=== PATIENT | female | born 1955 ===

== ENCOUNTER → 2020-02-10 09:02 | Outpatient (BNVA) | payer MEDICAID, SELFPAY | PROVIDERS: PCP Family Medicine; Referring Provider Family Medicine; Visit Provider Physician Assistant | DX: Z76.89 Persons encountering health services in other specified circumstances (principal) ==

== ENCOUNTER 2020-05-16 10:16 | Outpatient (REF) | payer MEDICAID, SELFPAY ==
--- NOTE | ~2020-05-16 | MM_ITS ---
EXAMINATION: MM SCREENING DIGITAL BREAST TOMOSYNTHESIS, BILATERAL CLINICAL INFORMATION: Screening. Asymptomatic. The lifetime risk of breast cancer based on the Tyrer-Cuzick Model is 6%. COMPARISON: Mammography: 05/11/2019, 04/30/2018, 04/09/2017 TECHNIQUE: Digital breast tomosynthesis is performed in both the craniocaudal and mediolateral oblique views along with computer-aided detection (CAD). Synthesized 2D images are generated from the tomosynthesis. Additional bilateral CC and additional bilateral MLO views are provided. FINDINGS: There are scattered areas of fibroglandular density (ACR BI-RADS breast composition Category b). Breast tissue composition borders on predominantly fatty. Background stromal and fibroglandular densities are stable. There are no significant masses, abnormal calcifications, or other abnormalities. MM/MM tomosynthesis screening BI IMPRESSION: No significant changes from prior exams. ASSESSMENT: BI-RADS 1: Negative RECOMMENDATION: Routine annual mammography screening. This patient's information was entered into a reminder system with a target due date for their next mammogram.
== END 2020-05-16 10:17 | disposition home or self-care (01) ==
LOC: HO.MAMMO 10:16
PROVIDERS: PCP Family Medicine; Visit Provider Family Medicine
DX: Z12.31 Encounter for screening mammogram for malignant neoplasm of breast (principal)
CPT/HCPCS: 77063; 77067

== ENCOUNTER → 2020-05-17 09:50 | Outpatient (BNVA) | payer MEDICAID, SELFPAY | PROVIDERS: PCP Family Medicine; Visit Provider Obstetrics & Gynecology ==

== ENCOUNTER 2020-09-20 14:15 | Outpatient (REF) | payer MEDICAID, SELFPAY ==
--- NOTE | ~2020-09-20 | MR_ITS ---
BRAIN MRI WITHOUT CONTRAST CLINICAL INFORMATION: Tremor right hand, recent onset. COMPARISON: None available. TECHNIQUE: Multiplanar multisequence MR imaging of the brain was obtained without IV contrast. FINDINGS: There is no hydrocephalus, extra-axial surface collection, or herniation. There is mild chronic microangiopathy. The major flow voids at the skull base are preserved. There is no acute infarct on diffusion-weighted imaging. There is no intracranial hemorrhage on the gradient recalled echo acquisition. Empty sella and prominence of the optic nerve CSF sheaths which can be correlated for clinical signs of intracranial CSF hypertension/pseudotumor cerebri. The cerebellar tonsils are normally positioned. A punctate focus of susceptibility signal within the right cerebellum most likely reflects a small focus of chronic hemosiderin staining. The craniocervical junction is normal. Osseous marrow signal intensity is homogenous. The visualized soft tissues are unremarkable. MR/MR head/brain wo con IMPRESSION: Empty sella and prominence of the optic nerve CSF sheaths which can be correlated for clinical signs of intracranial CSF hypertension/pseudotumor cerebri. Mild chronic microangiopathy.
== END 2020-09-20 14:16 | disposition home or self-care (01) ==
LOC: HO.MRI 14:15
PROVIDERS: Visit Provider Family Medicine
DX: R25.1 Tremor, unspecified (principal)
CPT/HCPCS: 70551

== ENCOUNTER 2020-10-17 08:08 | Outpatient (REF) | payer MEDICAID, SELFPAY | END 2020-10-17 08:09 | disposition home or self-care (01) | LOC: HO.HOSX 08:08 | PROVIDERS: Visit Provider Orthopaedic Surgery | DX: Z13.89 Encounter for screening for other disorder (principal) ==

== ENCOUNTER → 2020-11-25 10:54 | Outpatient (BNVA) | payer MEDICAID, SELFPAY | PROVIDERS: PCP Family Medicine | DX: N30.10 Interstitial cystitis (chronic) without hematuria (principal); R33.9 Retention of urine, unspecified | CPT/HCPCS: 99212 ==

== ENCOUNTER 2021-01-11 09:55 | Outpatient (REF) | payer MEDICARE, MEDICAID, SELFPAY ==
--- NOTE | ~2021-01-11 | XR_ITS ---
EXAMINATION: XR HAND, RIGHT CLINICAL INFORMATION: Pain COMPARISON: 09/11/2019 and 09/15/2018 TECHNIQUE: PA, lateral, and oblique views of the right hand. FINDINGS: No acute fracture or location. Small marginal osteophytes present throughout the distal interphalangeal joints and interphalangeal joint of the first digit. Moderate marginal osteophytes of the first carpometacarpal joint with a small amount of adjacent heterotopic ossification. Radiocarpal joint unremarkable. No erosive changes. Soft tissues unremarkable. XR/XR hand RT min 3V IMPRESSION: No acute fracture or dislocation. Degenerative changes as described.
== END 2021-01-11 09:56 | disposition home or self-care (01) ==
LOC: HO.HOSX 09:55
PROVIDERS: Visit Provider Physician Assistant
DX: M65.4 Radial styloid tenosynovitis [de Quervain] (principal)
CPT/HCPCS: 73130; 99212; J1020

== ENCOUNTER → 2021-01-17 13:17 | Outpatient (REF) | payer MEDICARE, MEDICAID, SELFPAY ==
--- NOTE | 2021-01-17 14:00 | CA_ITS ---
Transthoracic Echocardiogram Patient (Last, First, Middle): Trish Hunter M Gender: Female Date of : 1955 Age: 65 Procedure Date: 01/17/2021 Procedure Type: Transthoracic Echocardiogram Location: OP Height: 157.48 cm Weight: 101.61 kg BSA: 2.01 m2 Heart Rate: bpm BP: 140 / 82 mmHg Director Heart: Referring MD: Ethel Chase DO Youth Services Librarian: Rafa Moseley MD Symptoms: R53.83 OTHER FATIGUE, SOB Study Quality: Fair, good with Contrast ECG Rhythm: Sinus Conclusions: - 1. [id number] LV systolic dysfunction with LVEF of 40 45% with impaired relaxation filling pattern 2. Normal cardiac valvular Doppler 3. Normal RV systolic pressure 4. No gross pericardial effusion Findings Procedure Information Contrast agent, definity, is being given per protocol without apparent complications. Left Ventricle Normal left ventricular cavity size. There is normal left ventricular wall thickness. The left ventricular systolic function is mild to moderately decreased. The visually estimated ejection fraction is between 40-45%. Spectral Doppler is indicative of an impaired relaxation filling pattern. E/E prime ratio is between 8 and 15 consistent with indeterminate filling pressures. Right Ventricle Normal right ventricular cavity size and systolic function. Atria The left atrium is normal in size. Interatrial shunt cannot be excluded. The right atrium is normal in size. Aortic Valve The aortic valve was not well visualized. There is no aortic valve stenosis. There is no aortic valve regurgitation. Mitral Valve Likely normal mitral valve structure and function. There is trace mitral valve regurgitation. There is no mitral valve stenosis. Pulmonic Valve The pulmonic valve was not well visualized. Tricuspid Valve Likely normal tricuspid valve structure and function. There is trace tricuspid valve regurgitation. The right ventricular systolic pressure is 15 mmHg. Normal right atrial pressure. There is no evidence of pulmonary hypertension. Great Vessels All visible segments of the aorta are normal in size. The pulmonary artery was not well visualized. Venous The inferior vena cava is normal in size and collapses greater than 50% with inspiration. Pericardium/Pleural There is no evidence of pericardial effusion. Prior Study Comparison No prior study available for comparison. Measurements 2D Linear Measurements IVSd: 1.16 0.6-0.9/0.6-1.0 cm LVIDd: 4.20 3.9-5.3/4.2-5.9 cm LVIDd Index: 2.09 2.4-3.2/2.2-3.1 cm/m2 LVIDs: 2.85 2.0-3.6 cm LVPWd: 1.07 0.7-1.1 cm Ao Root: 2.80 2.1-3.5 cm LA Diam: 3.00 2.7-3.8/3.0-4.0 cm LAIDs Index: 1.49 1.5-2.3 cm/m2 LV Mass: 199.43 67-162/88-224 g LV Mass Index: 99.22 43-95/49-115 g/m2 LVOT Diam: 2.10 3.0+(-)1.3 cm 2D Systolic Function EF 4C: 44.00 >55% EF 2C: 51.00 >55% Mitral Valve MV Pk E: 0.56 MV PK A: 0.77 MV Decel Time: 316.00 E/A: 0.70 E'Lateral: 6.85 E'Medial: 5.66 E/E' Med: 9.90 E/E' Lat: 8.20 PHT: 92.00 MVA PHT: 2.39 Decel [place]: 1.78 Aortic Valve AoV Pk Julio C: 1.49 AoV Mn Julio C: 0.99 AoV VTI: 0.36 AoV Pk Grad: 9.00 Aov Mn Grad: 4.00 MARTINEZ Cont.VTI: 1.86 LVOT LVOT Pk Julio C: 0.89 LVOT Mn Julio C: 0.58 LVOT VTI: 0.19 LVOT Pk Grad: 3.00 LVOT Mn Grad: 2.00 LVOT Diam: 2.10 LVOT Area: 3.46 Diastolic Function MV Pk E: 0.56 MV Pk A: 0.77 E/A: 0.70 E'Medial: 5.66 E/E' Med: 9.90 E' Laterial: 6.85 E/E' Lat: 8.20 Right Ventricle TAPSE (mm): 18.00 TVS' Julio C: 10.00 Tricuspid Valve TR Pk Julio C: 1.71 TR Pk Grad: 12.00 RA Press: 3.00 RVSP: 15.00 Great Vessels Aorta Ao Root-2D: 2.80 2.0-3.7 cm Ao Asc: 3.20 2.1-3.4 cm Pulmonary Valve PV Pk Julio C: 0.94 Peak PV Grad: 4.00 Updated in Other Vendor System with Status of Final Rafa Moseley MD electronically signed on 01/17/2021 5:10:25 PM with status of Final
== END ==
LOC: HO.CARD 13:17
PROVIDERS: Visit Provider Family Medicine
DX: R53.83 Other fatigue (principal)
CPT/HCPCS: 93306; Q9957

== ENCOUNTER → 2021-02-06 21:50 | Outpatient (REF) | payer MEDICARE, MEDICAID, SELFPAY | LOC: HO.SL 21:50 | PROVIDERS: Visit Provider Family Medicine | DX: G47.33 Obstructive sleep apnea (adult) (pediatric) (principal) | CPT/HCPCS: 95810 ==

== ENCOUNTER → 2021-02-27 11:16 | Outpatient (BNVA) | payer MEDICARE, MEDICAID, SELFPAY | DX: R33.9 Retention of urine, unspecified (principal); N30.10 Interstitial cystitis (chronic) without hematuria | CPT/HCPCS: 51798; 99212 ==

== ENCOUNTER 2021-04-10 14:52 | Outpatient (REF) | payer MEDICARE, MEDICAID, SELFPAY ==
--- NOTE | ~2021-04-10 | US_ITS ---
EXAMINATION: US RETROPERITONEAL LIMITED (RENAL ONLY) CLINICAL INFORMATION: Calculus of kidney. COMPARISON: CT abdomen and pelvis 03/25/2019. Renal ultrasound 01/06/2019 and 05/06/2018. X-ray abdomen KUB 04/16/2018. TECHNIQUE: Real-time imaging of the kidneys. FINDINGS: RIGHT KIDNEY: 10.7 x 4.4 x 5.2 cm (SAG x AP x TRV). The kidney is normal in size, contour, and echogenicity. Renal cortical thickness is normal. No calculi or focal parenchymal lesions. No hydronephrosis. LEFT KIDNEY: 10.4 x 5.0 x 4.6 cm (SAG x AP x TRV). The kidney is normal in size, contour, and echogenicity. Renal cortical thickness is normal. No calculi or focal parenchymal lesions. No hydronephrosis. US/US renal BI IMPRESSION: Normal renal ultrasound. No stone seen.
== END 2021-04-10 14:53 | disposition home or self-care (01) ==
LOC: HO.US 14:52
DX: N20.0 Calculus of kidney (principal)
CPT/HCPCS: 76775

== ENCOUNTER → 2021-04-14 15:51 | Outpatient (BNVA) | payer MEDICARE, SELFPAY | PROVIDERS: PCP Family Medicine | DX: Z87.442 Personal history of urinary calculi (principal) | CPT/HCPCS: Q3014 ==

== ENCOUNTER 2021-06-27 11:09 | Outpatient (REF) | payer MEDICARE, SELFPAY ==
--- NOTE | ~2021-06-27 | MM_ITS ---
EXAMINATION: MM SCREENING DIGITAL BREAST TOMOSYNTHESIS, BILATERAL CLINICAL INFORMATION: Screening. Asymptomatic. The lifetime risk of breast cancer based on the Tyrer-Cuzick Model is 4%. COMPARISON: Mammography: 05/16/2020, 05/11/2019, 04/30/2018, 04/09/2017 TECHNIQUE: Digital breast tomosynthesis is performed in both the craniocaudal and mediolateral oblique views along with computer-aided detection (CAD). Synthesized 2D images are generated from the tomosynthesis. Additional bilateral exaggerated CC and additional bilateral MLO views are provided. FINDINGS: There are scattered areas of fibroglandular density (ACR BI-RADS breast composition Category b). Parenchymal pattern is similar to prior studies. Small nodular asymmetric density anterior upper left breast is stable from prior studies. There is no developing density or interval architectural abnormality. No abnormal calcifications. The axilla and skin contours are unremarkable. No significant changes. MM/MM tomosynthesis screening BI IMPRESSION: No mammographic evidence of malignancy. ASSESSMENT: BI-RADS 2: Benign RECOMMENDATION: Routine annual mammography screening. This patient's information was entered into a reminder system with a target due date for their next mammogram.
== END 2021-06-27 11:10 | disposition home or self-care (01) ==
LOC: HO.MAMMO 11:09
PROVIDERS: PCP Family Medicine; Visit Provider Family Medicine
DX: Z12.31 Encounter for screening mammogram for malignant neoplasm of breast (principal)
CPT/HCPCS: 77063; 77067

== ENCOUNTER → 2021-08-22 13:08 | Outpatient (BNVA) | payer MEDICARE, MEDICAID, SELFPAY | PROVIDERS: PCP Family Medicine; Referring Provider Family Medicine; Visit Provider Internal Medicine Cardiovascular Disease | DX: R07.9 Chest pain, unspecified (principal); I42.9 Cardiomyopathy, unspecified; Z79.899 Other long term (current) drug therapy | CPT/HCPCS: 93005; 99202 ==

== ENCOUNTER → 2021-09-25 08:34 | Outpatient (REF) | payer MEDICARE, MEDICAID, SELFPAY ==
--- NOTE | ~2021-09-25 | NM_ITS ---
Lexiscan Myocardial perfusion study Indication: Chest pain, assess for coronary disease and ischemia Technique: The patient was brought in for a Lexiscan perfusion study on 09/25/2021 and was injected 0.4 mg of Lexiscan intravenously. Within a minute of this injection 35 mCi of sestamibi was given intravenously. Images were obtained using the SPECT gamma camera interlaced with the gating device. Images were obtained in supine position. Resting perfusion study was performed on 09/28/2021. Patient was administered 35 mCi of sestamibi intravenously at rest. Images were then obtained in supine position. Total DLP 160mGy-cm. Images were processed with the software and compared side to side in short axis, horizontal long axis and vertical long axis views. Findings: Raw acquisition reviewed. The stress perfusion study showed mildly diminished tracer uptake in the basal to mid septum. There is also reduced uptake in the apical lateral wall. There is some improvement in the basal septal defect with CT attenuation correction. The apical lateral defect resolves. The gated study shows normal LV systolic function with calculated LVEF of 58%. LV cavity is normal in size. The gated study shows diminished contractility in the basal to mid septum. Resting study shows slightly reduced tracer uptake in the basal septum; reduced uptake in the apical inferolateral wall.. Gating at rest reveals ejection fraction at 51%. Reduced contractility in the basal septum. The findings are consistent with reversible defect in the basal to mid septum. Small fixed defect in the apical lateral wall, likely artifactual. NM/NM cardiolite stress test Impression: 1. Myocardial perfusion imaging study shows possible ischemia in the basal to mid septum. There is some improvement with CT attenuation correction which indicates artifact, but there is also reduced contractility on gating. Correlate clinically. 2. Gated LVEF is 58% during stress and 51% during rest. 3. Transient ischemic dilatation not present. EKG component of the test reported separately.
--- NOTE | 2021-09-25 08:37 | CA_ITS ---
Acquisition Time: 2021-09-25 10:12:56 Total Exercise Time: 00:01:38 Test Indications: CP Medications: SEE CHART Protocol: BRIAN Max HR: 121 BPM 78% of Pred: 155 BPM Max BP: 104/080 mmHG Max Work Load: 3.9 METS Exercise stress test with exercise 1 min 38 sec of Brian protocol, achieving 77% MPHR, with moderate sob and request to stop, no chest discomfort. Treadmill stopped and pt assisted to sitting position. Once breathing improved, testing changed to pharmacological stress test with Lexiscan injection, with mild sob, with isolated PACs, with normotensive response to injection, with nondiagnostic EKG for ischemia. In recovery she reported nausea that was treated with Aminophylline 75mg IVP to reverse Lexiscan with resolution of symptom. Nuclear images pending. Test reviewed with Dr Moseley. Referred By: Rafa Moseley Overread By: BRITT ETIENNE
== END ==
LOC: HO.CARD 08:34
PROVIDERS: PCP Family Medicine; Visit Provider Internal Medicine Cardiovascular Disease
DX: R07.9 Chest pain, unspecified (principal)
CPT/HCPCS: 78452; 93017; A9500; J0280; J2785

== ENCOUNTER 2021-11-15 09:30 | Outpatient (REF) | payer OTHER, MEDICAID, SELFPAY ==
[2021-11-15 10:23] LABS: Anion Gap 14 (12-20); Blood Urea Nitrogen 24 mg/dL (9-16); Calcium 9.5 mg/dL (8.4-10.2); Carbon Dioxide 23 mmol/L (22-29); Chloride 103 mmol/L (96-108); Estimated Glomerular Filt Rate 50; Glucose Random 175 mg/dL (60-115); Potassium 4.4 mmol/L (3.3-5.1); Sodium 136 mmol/L (135-145)
== END 2021-11-15 09:31 | disposition home or self-care (01) ==
LOC: HO.LAB 09:30
PROVIDERS: PCP Family Medicine; Visit Provider Nurse Practitioner Family
DX: R94.39 Abnormal result of other cardiovascular function study (principal)
CPT/HCPCS: 36415; 80048

== ENCOUNTER 2021-11-28 08:24 | Outpatient (REF) | payer OTHER, MEDICAID, SELFPAY ==
--- NOTE | ~2021-11-28 | US_ITS ---
EXAMINATION: US RETROPERITONEAL LIMITED (RENAL ONLY) CLINICAL INFORMATION: Calculus of kidney. COMPARISON: Renal ultrasound 04/10/2021 and 01/06/2019. CT abdomen and pelvis dated 03/25/2019. X-ray KUB 04/16/2018. TECHNIQUE: Real-time imaging of the kidneys. FINDINGS: RIGHT KIDNEY: 9.5 x 4.7 x 5.4 cm (SAG x AP x TRV). The kidney is normal in size, contour, and echogenicity. Renal cortical thickness is normal. No calculi or focal parenchymal lesions. No hydronephrosis. LEFT KIDNEY: 10.2 x 5.4 x 4.7 cm (SAG x AP x TRV). The kidney is normal in size, contour, and echogenicity. Renal cortical thickness is normal. No calculi or focal parenchymal lesions. No hydronephrosis. US/US renal BI IMPRESSION: No stone is appreciated by ultrasound.
== END 2021-11-28 08:25 | disposition home or self-care (01) ==
LOC: HO.US 08:24
PROVIDERS: Visit Provider Family Medicine
DX: N20.0 Calculus of kidney (principal); K76.0 Fatty (change of) liver, not elsewhere classified
CPT/HCPCS: 76775

== ENCOUNTER 2022-02-08 13:38 | Outpatient (REF) | payer OTHER, MEDICAID, SELFPAY ==
--- NOTE | ~2022-02-08 | CT_ITS ---
EXAMINATION: CT ABDOMEN AND PELVIS WITHOUT CONTRAST CLINICAL INFORMATION: Abdominal pain COMPARISON: Previous CT February 2019 and renal ultrasound most recent November 2021 TECHNIQUE: Multidetector volumetric imaging was performed from the superior aspect of the liver through the pubic symphysis. Sagittal and coronal reformatted images were obtained on the technologist's workstation. This CT examination was performed using dose optimization techniques as appropriate, variously including the following: *Automated exposure control *Adjustment of mA and/or kV according to patient size (this includes techniques or standardized protocols for targeted exams where dose is matched to indication/reason for exam; i.e. extremities or head) *Use of iterative reconstruction technique DLP: 781 mGy-cm FINDINGS: LUNG BASES: The visualized lung bases are unremarkable. LIVER, GALLBLADDER, AND BILIARY TREE: The liver is normal in size, shape, and attenuation. No focal hepatic lesion or biliary ductal dilatation is present. The gallbladder is unremarkable with no evidence of radiopaque gallstones, gallbladder wall thickening, or obvious pericholecystic inflammatory changes. PANCREAS: Unremarkable. SPLEEN: Unremarkable. ADRENAL GLANDS: Unremarkable. KIDNEYS AND URETERS: The kidneys are normal in size, shape, and attenuation. No hydronephrosis, hydroureter, or calculi seen. No perinephric stranding. BLADDER: Unremarkable. GASTROINTESTINAL TRACT: Diverticulosis of the colon. Mild wall thickening of the distal left and proximal sigmoid colon and stranding of the surrounding fat suggestive of mild diverticulitis. No evidence of obstruction, perforation or abscess. Small and large bowel are otherwise normal. The appendix is normal. ABDOMINAL WALL: No significant hernia is appreciated. LYMPH NODES: Normal. VASCULAR: Unremarkable. PELVIC VISCERA: Small calcifications in the uterus probably representing calcified fibroids. Uterus and adnexa are otherwise unremarkable. OSSEOUS STRUCTURES: Mild anterior subluxation of L4 with respect L5. Degenerative changes of the lower lumbar spine. CT/CT abdomen pelvis wo IV con IMPRESSION: Mild distal left or proximal sigmoid colon diverticulitis. Findings will be communicated by the [place] work flow financial coach. Fleischner guidelines were followed.
[2022-02-08 15:51] LABS: Blood Urea Nitrogen 20 mg/dL (9-16); Estimated Glomerular Filt Rate 56
[2022-02-08] MEDS: Barium Sulfate Oral (Berry) 450 ML ORAL.SUSP PO (16:48)
== END 2022-02-08 13:39 | disposition home or self-care (01) ==
LOC: HO.CT 13:38
PROVIDERS: Visit Provider Family Medicine
DX: R10.32 Left lower quadrant pain (principal)
CPT/HCPCS: 36415; 74176; 82565; 84520

== ENCOUNTER 2022-02-22 10:29 | Outpatient (REF) | payer OTHER, MEDICAID, SELFPAY ==
[2022-02-23 12:10] LABS: BV Int Neg Control Negative (Negative); BV Int Pos Control Positive (Positive)
== END 2022-02-22 10:30 | disposition home or self-care (01) ==
LOC: HO.LNP 10:29
PROVIDERS: Visit Provider Advanced Practice Midwife
DX: N89.8 Other specified noninflammatory disorders of vagina (principal)
CPT/HCPCS: 87480; 87510; 87660

== ENCOUNTER 2022-03-16 11:19 | Outpatient (REF) | payer OTHER, MEDICAID, SELFPAY ==
--- NOTE | ~2022-03-16 | XR_ITS ---
EXAMINATION: XR knee LT 2V, XR knee standing BI, XR knee RT 2V CLINICAL INFORMATION: Reason for Exam M25.569 - Pain in unspecified knee COMPARISON: Knee radiographs 04/02/2016 TECHNIQUE: Two views of the each knee and one view of the bilateral knees standing. FINDINGS: No acute fracture or dislocation. 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 No evidence of hardware fracture or complication. No joint effusion. Few nonspecific soft tissue calcifications seen in the left greater than right knees, may reflect foci of heterotopic ossification. 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 No evidence of hardware fracture or complication.
--- NOTE | ~2022-03-16 | XR_ITS ---
EXAMINATION: XR knee LT 2V, XR knee standing BI, XR knee RT 2V CLINICAL INFORMATION: Reason for Exam M25.569 - Pain in unspecified knee COMPARISON: Knee radiographs 04/02/2016 TECHNIQUE: Two views of the each knee and one view of the bilateral knees standing. FINDINGS: No acute fracture or dislocation. 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 No evidence of hardware fracture or complication. No joint effusion. Few nonspecific soft tissue calcifications seen in the left greater than right knees, may reflect foci of heterotopic ossification. 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 No evidence of hardware fracture or complication.
--- NOTE | ~2022-03-16 | XR_ITS ---
EXAMINATION: XR knee LT 2V, XR knee standing BI, XR knee RT 2V CLINICAL INFORMATION: Reason for Exam M25.569 - Pain in unspecified knee COMPARISON: Knee radiographs 04/02/2016 TECHNIQUE: Two views of the each knee and one view of the bilateral knees standing. FINDINGS: No acute fracture or dislocation. 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 No evidence of hardware fracture or complication. No joint effusion. Few nonspecific soft tissue calcifications seen in the left greater than right knees, may reflect foci of heterotopic ossification. 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 No evidence of hardware fracture or complication.
== END 2022-03-16 11:20 | disposition home or self-care (01) ==
LOC: HO.HOSX 11:19
PROVIDERS: Visit Provider Orthopaedic Surgery
DX: S80.02XA Contusion of left knee, initial encounter (principal); M25.561 Pain in right knee; M25.552 Pain in left hip
CPT/HCPCS: 73560; 73565

== ENCOUNTER 2022-05-25 11:44 | Emergency (ER) | payer OTHER, MEDICARE, MEDICAID, SELFPAY ==
--- NOTE | ~2022-05-25 | XR_ITS ---
EXAMINATION: XR LUMBOSACRAL SPINE CLINICAL INFORMATION: Low back pain COMPARISON: 03/15/2018. TECHNIQUE: Three views of the lumbosacral spine. FINDINGS: Marked facet arthrosis with grade 1 anterolisthesis of L4-L5, not significantly changed. Otherwise unremarkable. No acute abnormality. XR/XR lumbar spine 2-3V IMPRESSION: Marked facet arthrosis with grade 1 anterolisthesis of L4-L5, not significantly changed. No acute abnormality.
[2022-05-25 12:02] VITALS: BP 140/86; PULSE 85; RESP 17; TEMP 36.2; O2SAT 96; BMI 43.9
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
--- NOTE | 2022-05-25 12:42 | PC.NURSE ---
patient a&ox3, c/o low back pain and neck pain, pt had xrays performed, awaiting results, call armenta within reach, will continue to monitor
== END 2022-05-25 14:35 | disposition home or self-care (01) ==
PROVIDERS: Emergency Provider Emergency Medicine Emergency Medical Services; PCP Family Medicine
DX: S39.012A Strain of muscle, fascia and tendon of lower back, initial encounter (principal); V43.62XA Car passenger injured in collision with other type car in traffic accident, initial encounter; G89.29 Other chronic pain; M54.9 Dorsalgia, unspecified; Z79.891 Long term (current) use of opiate analgesic; Y93.89 Activity, other specified; Y92.414 Local residential or business street as the place of occurrence of the external cause; Y99.9 Unspecified external cause status
CPT/HCPCS: 72100; 99283

== ENCOUNTER 2022-06-07 14:53 | Outpatient (REF) | payer OTHER, SELFPAY ==
--- NOTE | ~2022-06-07 | US_ITS ---
EXAMINATION: US EXTRACRANIAL CAROTID DUPLEX, BILATERAL CLINICAL INFORMATION: Dizziness and giddiness COMPARISON: None available. TECHNIQUE: Real-time ultrasound and Doppler techniques (integrating B-mode 2-D vascular images, Doppler spectral analysis and color-flow Doppler imaging) were utilized to interrogate the extracranial carotid arteries, the vertebral arteries and proximal subclavian arteries bilaterally. The degree of stenosis is determined by criteria similar to NASCET. FINDINGS: Right Side: 1. There is no atherosclerotic plaque seen in the bifurcation/proximal ICA region. 2. The common carotid artery PSV proximally is 72 cm/s and distally 66 cm/s. 3. The proximal internal carotid artery velocities are 50 cm/s systolic and 16 cm/s diastolic. 4. The proximal external carotid artery PSV is 40 cm/s. 5. The vertebral artery shows antegrade flow. 6. The subclavian artery waveforms are normal. Left Side: 1. There is no atherosclerotic plaque seen in the bifurcation/proximal ICA region. 2. The common carotid artery PSV proximally is 82 cm/s and distally 50 cm/s. 3. The proximal internal carotid artery velocities are 50 cm/s systolic and 17 cm/s diastolic. 4. The proximal external carotid artery PSV is 61 cm/s. 5. The vertebral artery shows antegrade flow. 6. The subclavian artery waveforms are normal. US/US carotid duplex BI IMPRESSION: 1. RIGHT: Normal right internal carotid artery without atherosclerotic plaque or hemodynamically significant stenosis. 2. LEFT: Normal left internal carotid artery without atherosclerotic plaque or hemodynamically significant stenosis.
== END 2022-06-07 14:54 | disposition home or self-care (01) ==
LOC: HO.US 14:53
PROVIDERS: Visit Provider Family Medicine
DX: R42 Dizziness and giddiness (principal)
CPT/HCPCS: 93880

== ENCOUNTER → 2022-06-19 14:45 | Outpatient (BNVA) | payer OTHER, SELFPAY | PROVIDERS: PCP Family Medicine; Visit Provider Internal Medicine Cardiovascular Disease | DX: I42.9 Cardiomyopathy, unspecified (principal); I10 Essential (primary) hypertension | CPT/HCPCS: 99212 ==

== ENCOUNTER 2022-06-20 10:23 | Outpatient (REF) | payer OTHER, SELFPAY ==
--- NOTE | ~2022-06-20 | US_ITS ---
EXAMINATION: US ABDOMEN COMPLETE CLINICAL INFORMATION: Fatty liver. COMPARISON: CT abdomen and pelvis without contrast dated 02/08/2022. Bilateral renal ultrasounds dated 11/28/2021 and 04/10/2021. KUB dated 04/16/2018. TECHNIQUE: Real-time imaging of the abdominal viscera. FINDINGS: PANCREAS: Normal. ABDOMINAL AORTA: The proximal, mid, and distal segments are normal in caliber. INFERIOR VENA CAVA: Visualized portions are normal. LIVER: The liver is enlarged measuring 18 cm. The liver contour is normal. There is diffuse increased echogenicity with areas of focal fatty sparing. No focal hepatic lesion. There is no intrahepatic biliary duct dilatation seen. GALLBLADDER: Normal. The gallbladder is physiologically distended without evidence of stones, sludge, polyps, wall thickening or pericholecystic fluid. COMMON BILE DUCT: Normal in caliber measuring 0.4 cm in diameter. RIGHT KIDNEY: Normal. No hydronephrosis. No renal calculi or focal parenchymal lesions. The kidney measures 10.6 cm in maximum dimension. LEFT KIDNEY: Normal. No hydronephrosis. No renal calculi or focal parenchymal lesions. The kidney measures 9.4 cm in maximum dimension. SPLEEN: Normal. The spleen measures 9.0 cm in maximum dimension. FREE FLUID: None. US/US abdomen complete IMPRESSION: 1. Diffuse hepatic steatosis with areas of focal fatty sparing. 2. Rest of the abdominal ultrasound is unremarkable.
== END 2022-06-20 10:24 | disposition home or self-care (01) ==
LOC: HO.US 10:23
PROVIDERS: Visit Provider Family Medicine
DX: K76.0 Fatty (change of) liver, not elsewhere classified (principal)
CPT/HCPCS: 76700

== ENCOUNTER → 2022-07-03 08:46 | Outpatient (REF) | payer OTHER, SELFPAY ==
--- NOTE | ~2022-07-03 | MM_ITS ---
EXAMINATION: MM SCREENING DIGITAL BREAST TOMOSYNTHESIS, BILATERAL CLINICAL INFORMATION: Screening. Asymptomatic. The lifetime risk of breast cancer based on the Tyrer-Cuzick Model is 3%. COMPARISON: Mammography: 06/27/2021, 05/16/2020, 05/11/2019 TECHNIQUE: Digital breast tomosynthesis is performed in both the craniocaudal and mediolateral oblique views along with computer-aided detection (CAD). Synthesized 2D images are generated from the tomosynthesis. Additional bilateral CC, right MLO, and left MLO x2 views are provided. FINDINGS: There are scattered areas of fibroglandular density (ACR BI-RADS breast composition Category b). Breast tissue composition borders on predominantly fatty. Background stromal and fibroglandular densities are similar to prior exams. There are no significant masses, abnormal calcifications, or other abnormalities. Parenchymal pattern is similar to prior studies. There is no developing density or architectural abnormality. The axilla and skin contours are unremarkable. MM/MM tomosynthesis screening BI IMPRESSION: No mammographic evidence of malignancy. ASSESSMENT: BI-RADS 1: Negative RECOMMENDATION: Routine annual mammography screening. This patient's information was entered into a reminder system with a target due date for their next mammogram.
--- NOTE | 2022-07-03 08:49 | CA_ITS ---
Transthoracic Echocardiogram Patient (Last, First, Middle): Trish Cameron M Gender: Female Date of : 1955 Age: 66 Procedure Date: 07/03/2022 Procedure Type: Transthoracic Echocardiogram Location: OP Height: 157.48 cm Weight: 112.95 kg BSA: 2.10 m2 Heart Rate: 76 bpm BP: 105 / 70 mmHg Communication Manager: SERINA Referring MD: Ethel Chase DO Symptoms: R42 DIZZINESS Study Quality: Adequate/Contrast ECG Rhythm: Sinus Conclusions: - The left ventricular systolic function is low normal. The visually estimated ejection fraction is between 50-55%. - No obvious valvular pathology seen on this study. Findings Procedure Information Contrast agent, definity, is being given per protocol without apparent complications. Left Ventricle Normal left ventricular cavity size. There is mildly increased left ventricular wall thickness. The left ventricular systolic function is low normal. The visually estimated ejection fraction is between 50-55%. There is no evidence of regional wall motion abnormalities. Diastolic function is normal for age. Right Ventricle Normal right ventricular cavity size and systolic function. Atria Both atria are normal in size. Aortic Valve There is a normal trileaflet aortic valve. There is mild calcification of the aortic valve. There is no aortic valve stenosis. There is no aortic valve regurgitation. Mitral Valve The mitral valve appears normal. There is mild mitral annular calcification. There is no mitral valve regurgitation. There is no mitral valve stenosis. Pulmonic Valve The pulmonic valve is likely normal. Tricuspid Valve There is no tricuspid valve regurgitation. There is no evidence of pulmonary hypertension. Great Vessels The asc aorta is normal in size. Venous The inferior vena cava is normal in size and collapses less than 50% with inspiration. Pericardium/Pleural There is no evidence of pericardial effusion. Prior Study Comparison Changes noted compared to prior study dated: 01/17/2021. Slight improvement in LVEF. Recommendations, Care & Conclusions No obvious valvular pathology seen on this study. Measurements 2D Linear Measurements IVSd: 1.15 0.6-0.9/0.6-1.0 cm LVIDd: 4.46 3.9-5.3/4.2-5.9 cm LVIDd Index: 2.12 2.4-3.2/2.2-3.1 cm/m2 LVIDs: 2.93 2.0-3.6 cm LVPWd: 1.14 0.7-1.1 cm LA Diam: 3.80 2.7-3.8/3.0-4.0 cm LAIDs Index: 1.81 1.5-2.3 cm/m2 LV Mass: 227.58 67-162/88-224 g LV Mass Index: 108.37 43-95/49-115 g/m2 LVOT Diam: 2.00 3.0+(-)1.3 cm 2D Systolic Function EF 4C: 48.40 >55% EF 2C: 59.80 >55% EF BiP: 55.40 >55% Mitral Valve MV Pk E: 0.53 MV PK A: 0.85 MV Decel Time: 247.00 E/A: 0.60 E'Lateral: 8.38 E'Medial: 5.22 E/E' Med: 10.10 E/E' Lat: 6.30 PHT: 72.00 MVA PHT: 3.06 Decel [place]: 2.13 Aortic Valve AoV Pk Julio C: 1.57 AoV Mn Julio C: 1.12 AoV VTI: 0.28 AoV Pk Grad: 10.00 Aov Mn Grad: 6.00 MARTINEZ Cont.VTI: 2.02 LVOT LVOT Pk Julio C: 0.98 LVOT Mn Julio C: 0.72 LVOT VTI: 0.18 LVOT Pk Grad: 4.00 LVOT Mn Grad: 2.00 LVOT Diam: 2.00 LVOT Area: 3.14 Diastolic Function MV Pk E: 0.53 MV Pk A: 0.85 E/A: 0.60 E'Medial: 5.22 E/E' Med: 10.10 E' Laterial: 8.38 E/E' Lat: 6.30 Right Ventricle TAPSE (mm): 19.30 TVS' Julio C: 10.20 Tricuspid Valve RA Press: 8.00 Great Vessels Aorta Sinus of Valsalva: 3.00 2.0-3.5 cm Ao Asc: 3.20 2.1-3.4 cm Pulmonary Valve PV Pk Julio C: 1.14 Peak PV Grad: 5.00 Updated in Other Vendor System with Status of Final Thiago Cates MD electronically signed on 07/04/2022 11:34:19 AM with status of Final
== END ==
LOC: HO.CARD 08:46
PROVIDERS: PCP Family Medicine; Visit Provider Family Medicine
DX: Z12.31 Encounter for screening mammogram for malignant neoplasm of breast (principal); R42 Dizziness and giddiness
CPT/HCPCS: 77063; 77067; 93306; Q9957

== ENCOUNTER 2022-07-03 10:34 | Outpatient (REF) | payer OTHER, SELFPAY | END 2022-07-03 10:35 | disposition home or self-care (01) | LOC: HO.MAMMO 10:34 | PROVIDERS: PCP Family Medicine; Visit Provider Family Medicine | DX: Z13.89 Encounter for screening for other disorder (principal) ==

== ENCOUNTER 2022-08-27 12:33 | Outpatient (REF) | payer OTHER, SELFPAY | END 2022-08-27 12:34 | disposition home or self-care (01) | LOC: HO.CT 12:33 | PROVIDERS: PCP Family Medicine; Visit Provider Family Medicine | DX: R42 Dizziness and giddiness (principal) | CPT/HCPCS: 70450 ==

== ENCOUNTER 2023-01-04 10:30 | Outpatient (REF) | payer OTHER, SELFPAY ==
--- NOTE | ~2023-01-04 | US_ITS ---
EXAMINATION: US RETROPERITONEAL LIMITED (RENAL ONLY) CLINICAL INFORMATION: Calculus of kidney. COMPARISON: Ultrasound abdomen complete 06/20/2022. CT abdomen and pelvis 02/08/2022. Renal ultrasound 11/28/2021. X-ray KUB 04/16/2018. TECHNIQUE: Real-time imaging of the kidneys. Limited visualization due to bowel gas. FINDINGS: RIGHT KIDNEY: 10.4 x 4.7 x 4.9 cm (SAG x AP x TRV). No hydronephrosis. No renal calculi. Renal cortical thickness is normal. Limited visualization. LEFT KIDNEY: 9.5 x 5.9 x 5.9 cm (SAG x AP x TRV). No hydronephrosis. No renal calculi. Renal cortical thickness is normal. Limited visualization. US/US renal BI IMPRESSION: No hydronephrosis. No renal calculi.
== END 2023-01-04 10:31 | disposition home or self-care (01) ==
LOC: HO.US 10:30
PROVIDERS: PCP Family Medicine; Visit Provider Nurse Practitioner Family
DX: N20.0 Calculus of kidney (principal)
CPT/HCPCS: 76775

== ENCOUNTER 2023-01-11 11:31 | Outpatient (AMB) | payer OTHER, SELFPAY ==
--- NOTE | 2023-01-11 11:33 | MHC.OFFVIS ---
Intake Intake Visit Reasons: 1 yr nephrolithiasis follow up w US(set) Intake Note: Patient is present for follow up nephrolithiasis/ultrasound Urology Medications: none Blood Thinner: none Telemarketing Representative Required: Yes Telemarketing Representative Name: [id number] Information Interpreted: non-clinical & clinical Accompanied by: Self / Same As Patient Allergies morphine [Morphine] Allergy (Mild, Verified 01/11/23 11:55) ITCHING, rash Iodinated Contrast Media [IV CONTRAST] Allergy (Unknown, Verified 01/11/23 11:55) itching tramadol [Ultram] Allergy (Unknown, Verified 01/11/23 11:55) rash From ULTRAM Allergy (Intermediate, Uncoded 01/11/23 11:55) ITCHY ivp contrast Allergy (Unknown, Uncoded 01/11/23 11:55) hives Medication List - Last Reconciled 01/11/23 by BRITT Comer-FAUSTINA acetaminophen ER 650 mg PO Q8H PRN albuterol sulfate 90 mcg/actuation (ProAir HFA) 2 puffs PO Q6H PRN alcohol swabs (Alcohol Prep Pads) pad topical BID aripiprazole 10 mg PO QAM aspirin 81 mg PO QPM atorvastatin 20 mg PO BEDTIME baclofen 20 mg PO TID PRN blood sugar diagnostic (FreeStyle Lite Strips) As directed cholecalciferol (vitamin D3) 50 mcg PO QPM clotrimazole-betamethasone 1-0.05 % 1 appl topical BID PRN 7 days diphenhydramine HCl (Benadryl) 25 mg PO BEDTIME docusate sodium 100 mg PO dulaglutide (Trulicity) mg subcut QWEEK dulaglutide (Trulicity) mg subcut famotidine (Pepcid) 20 mg PO BID fluticasone propionate 50 mcg/actuation 1 spray intranasal BID fluticasone propionate 220 mcg/actuation (Flovent HFA) 1 puff PO BID gabapentin 400 mg PO TID isosorbide mononitrate ER 30 mg PO DAILY lancets (TRUEplus Lancets) As directed latanoprost 0.005% 1 drp ophthalmic (eye) BEDTIME levothyroxine 100 mcg PO QAM levothyroxine 112 mcg PO DAILY lidocaine 5% (Lidoderm) 1 patch topical DAILY lisinopril 20 mg PO QPM loratadine 10 mg PO QAM lorazepam 1 mg PO BID PRN metformin 500 mg PO metoprolol succinate ER 25 mg PO QAM 90 days [id number] acid 18-400 mg-mcg (Tab-A-Rito Multivitamin w-iron) 1 tab PO QAM oxybutynin chloride ER 15 mg PO DAILY 30 days oxycodone 5 mg PO Q6H PRN pantoprazole 40 mg PO QAM pentosan polysulfate sodium (Elmiron) 200 mg (2 x 100 mg) PO BID 90 days prazosin 4 mg PO BEDTIME venlafaxine ER 150 mg PO QAM venlafaxine ER 75 mg PO QAM zolpidem 10 mg PO BEDTIME HPI HPI Comments History of Present Illness Details Trish is a very pleasant 67 year old Kinyarwanda speaking female patient. She has a PMH of diabetes, hypertention, cardiomyopathy, and acid reflux. She presents to the office today for a follow up of her nephrolithiasis and interstitial cystitis. Recent renal imaging results reviewed with the patient today. Bilateral kidneys with no calculi and or hydronephrosis. When asked she reports dysuria and bladder pressure. She reports when she was taking her Elmiron she felt urinary symptoms were controlled. Discussed side effects of Elmiron at length. She otherwise denies urinary urgency, urinary frequency, incontinence, nocturia, hematuria, foul smelling urine, changes to urinary stream, flank pain, fever, and or chills. Unable to obtain urine for urinalysis as patient was unable to void however PVR 0ml's. PFS Medical History Diabetes HTN (hypertension) Cardiomyopathy Bilateral nephrolithiasis Retention of urine Acid reflux Surgical History Hx of tubal ligation H/O shoulder surgery History of hand surgery H/O knee surgery Family History Brother Breast cancer Social History Alcohol intake: current Alcohol intake frequency: holidays/special occasions only Patient Tobacco Use Status: Never used Tobacco Current occupational status: disabled Current occupation: rt handed Gender identity: Female Female Reproductive History Menstrual Age of Menarche: 12 Review of Systems Const Reports as per HPI Eyes Reports no additional complaints ENT Reports no additional complaints Card Reports as per HPI Resp Reports no additional complaints GI Reports as per HPI Reports as per [facility] Endo Reports as per [facility] Physical Exam Const General: cooperative, comfortable, no acute distress, well developed, alert and awake Nutritional Appearance: overweight Orientation/consciousness: patient oriented x3 Limitations: no limitations HEENT Head: Yes normal to inspection, Yes normocephalic and Yes atraumatic Ears: hearing grossly normal bilaterally Eyes General: appearance normal, both eyes and all related structures Neck Neck: Yes normal visual inspection and Yes trachea midline Chest Chest palpation & inspection: normal inspection of the chest Resp Effort & Inspection: normal respiratory effort and able to speak in complete sentences Cardio Rate: regular rate GI Inspection: Yes normal to inspection General: Yes no CVA tenderness Back/Spine/Pelvis Back: no CVA tenderness Skin General skin exam: no rashes or lesions noted Neuro General: patient oriented x3 Extrem General: Yes normal to inspection Psych Appearance: grossly normal and well kempt Mental Status: mental status grossly normal Speech and movement: Normal speech and movement present and Clear speech present Affect: normal affect Attitude: cooperative Thought process: Normal thought process present Thought content: Normal thought content present Insight: Fair insight present (Psych) Judgement: Fair judgement present (Psych) Results Reviewed Results Reviewed: Date of Service: 01/04/23 EXAMINATION: US RETROPERITONEAL LIMITED (RENAL ONLY) FINDINGS: RIGHT KIDNEY: 10.4 x 4.7 x 4.9 cm (SAG x AP x TRV). No hydronephrosis. No renal calculi. Renal cortical thickness is normal. Limited visualization. LEFT KIDNEY: 9.5 x 5.9 x 5.9 cm (SAG x AP x TRV). No hydronephrosis. No renal calculi. Renal cortical thickness is normal. Limited visualization. IMPRESSION: No hydronephrosis. No renal calculi. Assessment & Plan Assessment & Plan (1) Interstitial cystitis: Code(s): N30.10 - Interstitial cystitis (chronic) without hematuria (2) Nephrolithiasis: Code(s): N20.0 - Calculus of kidney Plan Unable to obtain urine for urinalysis however PVR 0ml's Recent renal imaging results reviewed with the patient Discussed at length bladder triggers/irritants at length; information provided Start low dose nitrofurantoin as discussed and prescribed. Discussed, stressed, and educated on the importance of drinking plenty of water daily. Follow up in 3 months with PVR; or sooner with any issues, concerns, or questions. Orders: Orders AMB Urinalysis Automated 01/11/23 Z13.9 - Encounter for screening, unspecified Medications: New nitrofurantoin macrocrystal must administer with a meal/food 50 mg PO BEDTIME 90 caps 1RF 90 days N39.0 - Urinary tract infection, site not specified Discontinued oxybutynin chloride ER Discontinued Reason: Patient no longer taking 15 mg PO DAILY 30 tabs 5RF 30 days diphenhydramine HCl (Benadryl) Take 1 tablet the Morning of day before CT scan, Take 1 tablet the Evening of day before CT scan, Take one tablet the Morning of the CT scan Discontinued Reason: Patient Completed Course 25 mg PO BEDTIME 3 caps 0RF sleep pentosan polysulfate sodium (Elmiron) Discontinued Reason: Patient Completed Course 200 mg (2 x 100 mg) PO BID 360 caps 1RF 90 days Coding Level of Care Code Est Pt Level 4 (13737) Diagnoses Interstitial cystitis N30.10 Nephrolithiasis N20.0
== END 2023-01-11 12:09 | disposition home or self-care (01) ==
PROVIDERS: Visit Provider Nurse Practitioner Family
DX: N30.10 Interstitial cystitis (chronic) without hematuria (principal); N20.0 Calculus of kidney
CPT/HCPCS: 99214

== ENCOUNTER → 2023-01-11 11:31 | Outpatient (BNVA) | payer OTHER, SELFPAY | PROVIDERS: Visit Provider Nurse Practitioner Family | DX: N30.10 Interstitial cystitis (chronic) without hematuria (principal); N20.0 Calculus of kidney | CPT/HCPCS: 99212 ==

== ENCOUNTER → 2023-01-21 19:30 | Outpatient (BNV) | payer OTHER, SELFPAY | PROVIDERS: PCP Family Medicine; Visit Provider Internal Medicine | DX: G47.33 Obstructive sleep apnea (adult) (pediatric) (principal) | CPT/HCPCS: 95810 ==

== ENCOUNTER → 2023-01-21 20:30 | Outpatient (REF) | payer OTHER, SELFPAY | LOC: HO.SL 20:30 | PROVIDERS: PCP Family Medicine; Visit Provider Family Medicine | DX: G47.30 Sleep apnea, unspecified (principal) | CPT/HCPCS: 95810 ==

== ENCOUNTER 2023-02-28 09:54 | Outpatient (AMB) | payer OTHER, SELFPAY ==
--- NOTE | 2023-02-28 10:04 | MHC.OFFVIS ---
Intake Vital Signs 02/28/23 10:27 Height 5 ft 3 in Weight 262 lb BMI 46.4 BP 112/72 Intake Visit Reasons: Annual Crown Presser Required: No Information Interpreted: non-clinical & clinical Proposal Lead Writer: Proposal Lead Writer Present (Ethel) Allergies morphine [Morphine] Allergy (Mild, Verified 02/28/23 10:27) ITCHING, rash Iodinated Contrast Media [IV CONTRAST] Allergy (Unknown, Verified 02/28/23 10:27) itching tramadol [Ultram] Allergy (Unknown, Verified 02/28/23 10:27) rash From ULTRAM Allergy (Intermediate, Uncoded 01/11/23 11:55) ITCHY ivp contrast Allergy (Unknown, Uncoded 01/11/23 11:55) hives HPI HPI Comments History of Present Illness Details She is a postmenopausal woman 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 She is doing well with no concerns. Attempting to eat a healthy diet with calcium and vitamin D, and stays active in her home. Currently not sexually active. Denies any vaginal dryness or irritation. STI testing offered; she declines. Last pap smear; 2020. Last mammogram; UTD. Colonoscopy is UTD. Denies any family history of ovarian or colon cancer. FH: brother-breast cancer. [facility] Medical History Diabetes HTN (hypertension) Cardiomyopathy Bilateral nephrolithiasis Retention of urine Acid reflux Surgical History Hx of tubal ligation H/O shoulder surgery History of hand surgery H/O knee surgery Family History Brother Breast cancer Social History (Updated 02/28/23 @ 11:07 by Raina Veloz CNM) Household Members: Children Household Members Other:: lives w/her grandson Alcohol intake: current Alcohol intake frequency: holidays/special occasions only Patient Tobacco Use Status: Never used Tobacco Current occupational status: disabled Current occupation: rt handed Gender identity: Female Female Reproductive History Menstrual Age of Menarche: 12 Menopause type: natural Total pregnancies: 3 Full term: 3 Number of Living Children: 3 Date of last pap smear: 09/09/19 (neg pap and hpv) Date of Mammogram: 07/03/22 (Birad 1) Review of Systems Const All systems reviewed & are unremarkable except as noted in HPI and below Reports as per HPI Eyes Reports no additional complaints ENT Reports no additional complaints Card Reports no additional complaints Resp Reports no additional complaints GI Reports as per HPI and Reports no additional complaints Reports as per HPI Musc Reports no additional complaints Skin/Breast Reports as per HPI Neuro Reports no additional complaints Psych Reports no additional complaints Endo Reports no additional complaints Lai/Lymph Reports no additional complaints Aller/Immun Reports no additional complaints Physical Exam Vital Signs: Last Vital Signs BP 112/72 02/28/23 10:27 BMI result Body Mass Index 46.4 Const General: cooperative, healthy appearing, no acute distress, well developed and alert Orientation/consciousness: patient oriented x3 HEENT Head: Yes normal to inspection Eyes General: appearance normal, both eyes and all related structures Neck Neck: Yes normal visual inspection Thyroid: Thyroid normal Chest Chest palpation & inspection: normal inspection of the chest and other (no puckering, dimpling, peau de orange, retraction, discharge, masses) Breast/axilla inspection: normal inspection of the breasts Breast/axilla palpation: normal palpation of the breasts Resp Effort & Inspection: normal respiratory effort GI Inspection: Yes normal to inspection Palpation (GI): Soft to palpation Rectal Exam - Female: deferred General: Yes bladder normal to palpation External Female Exam: normal external appearance and normal appearance of the urethra Speculum Exam - Vagina: normal appearance of the vagina, normal palpation, normal vaginal discharge and vagina atrophic Speculum Exam - Cervix: normal appearance of the cervix and normal palpation Bimanual exam- vagina & uterus: normal bimanual exam, normal palpation, uterine size normal, bladder normal to palpation, normal palpation and non-tender Bimanual Exam- Adnexa, other: no masses Skin General skin exam: no rashes or lesions noted Rashes: no rashes Neuro General: patient oriented x3 Cognition (Neuro): normal cognition Extrem General: Yes normal to inspection Psych Attitude: cooperative Thought process: Normal thought process present Assessment & Plan Assessment & Plan (1) Encounter for well woman exam with routine gynecological exam: Code(s): Z01.419 - Encounter for gynecological examination (general) (routine) without abnormal findings Plan Discussed: Current recommendations for pap smears per ASCCP guidelines. Breast awareness, periodic self breast exams and yearly mammogram. Maintain a healthy lifestyle, well balanced diet including Calcium 1,200 mg and Vitamin D 600 IU daily, and routine exercise. Contact the office with any postmenopausal bleeding. All of her questions and concerns were addressed to the best of my ability. RTO in 1 year for annual commercial lines account executive exam. This note is constructed using voice recognition software. While every effort has been made to ensure accuracy, orchid hand errors may have been included. Coding Level of Care Code New Pt Prev Care 40-64y(81373) Diagnoses Encounter for well woman exam with routine gynecological exam Z01.419
[2023-02-28 10:27] VITALS: BP 112/72; BMI 46.4
== END 2023-02-28 11:18 | disposition home or self-care (01) ==
LOC: HO.HWS 09:54
PROVIDERS: PCP Family Medicine; Visit Provider Advanced Practice Midwife
DX: Z01.419 Encounter for gynecological examination (general) (routine) without abnormal findings (principal)
CPT/HCPCS: 99387

== ENCOUNTER → 2023-02-28 09:54 | Outpatient (BNVA) | payer OTHER, SELFPAY | PROVIDERS: PCP Family Medicine; Visit Provider Advanced Practice Midwife ==

== ENCOUNTER 2023-03-13 09:37 | Outpatient (REF) | payer OTHER, SELFPAY ==
[2023-03-13 11:57] LABS: Alanine Aminotransferase 41 U/L (0-31); Albumin Level 4.2 g/dL (3.5-5.0); Alkaline Phosphatase 135 U/L (39-117); Anion Gap 15 (12-20); Aspartate Amino Transferase 40 U/L (5-31); Bilirubin Direct 0.2 mg/dL (0.0-0.5); Bilirubin Total 0.4 mg/dL (0.0-1.0); Blood Urea Nitrogen 16 mg/dL (9-16); Calcium 9.8 mg/dL (8.4-10.2); Carbon Dioxide 29 mmol/L (22-29); Chloride 99 mmol/L (96-108); Estimated Glomerular Filt Rate 45; Glucose Random 206 mg/dL (60-115); Potassium 4.6 mmol/L (3.3-5.1); Sodium 138 mmol/L (135-145); Total Protein 7.8 g/dL (6.5-8.0)
[2023-03-13 12:13] LABS: Folate > 20.0 ng/mL (> or = 4.0); Vitamin B12 307 pg/mL (200-900)
[2023-03-13 12:20] LABS: Creatinine Urine 131.57 mg/dL; Microalbum/Creatinine Ratio Ur 4.5 ug/mg cr (<30)
== END 2023-03-13 09:38 | disposition home or self-care (01) ==
LOC: HO.HHCL 09:37
PROVIDERS: Visit Provider Family Medicine
DX: E11.65 Type 2 diabetes mellitus with hyperglycemia (principal); E03.8 Other specified hypothyroidism; R68.89 Other general symptoms and signs
CPT/HCPCS: 36415; 80048; 80076; 82043; 82570; 82607; 82746

== ENCOUNTER → 2023-06-12 10:09 | Outpatient (REF) | payer OTHER, SELFPAY ==
--- NOTE | 2023-06-12 10:14 | CA_ITS ---
Transthoracic Echocardiogram Patient (Last, First, Middle): Trish Cameron M Gender: Female Date of : 1955 Age: 67 Procedure Date: 06/12/2023 Procedure Type: Transthoracic Echocardiogram Location: OP Height: 157.48 cm Weight: 113.4 kg BSA: 2.10 m2 Heart Rate: bpm BP: 110 / 62 mmHg Electric Organ Assembler And Checker: TO Referring MD: Rafa Moseley MD Symptoms: I42.9 - Cardiomyopathy, unspecified Study Quality: Technically Difficult/contrast ECG Rhythm: Sinus Conclusions: - The left ventricular systolic function is mildly decreased. The calculated ejection fraction is 47% by biplane method. - No obvious valvular pathology seen on this study. Findings Procedure Information Contrast agent, definity, is being given per protocol without apparent complications. Left Ventricle Normal left ventricular cavity size. The left ventricular systolic function is mildly decreased. The calculated ejection fraction is 47% by biplane method. There is mild global hypokinesis. Diastolic function is normal for age. There is mild septal asymmetric hypertrophy. Right Ventricle Normal right ventricular cavity size and systolic function. Atria Both atria are normal in size. Aortic Valve There is a normal trileaflet aortic valve. There is mild calcification of the aortic valve. There is no aortic valve stenosis. There is no aortic valve regurgitation. Mitral Valve The mitral valve appears normal. There is no mitral valve regurgitation. There is no mitral valve stenosis. Pulmonic Valve The pulmonic valve is likely normal. Tricuspid Valve There is trace tricuspid valve regurgitation. There is no evidence of pulmonary hypertension. Great Vessels The asc aorta and aortic arch are normal in size. Venous The inferior vena cava was not well visualized. The inferior vena cava is normal in size. Pericardium/Pleural There is no evidence of pericardial effusion. Prior Study Comparison No significant change compared to prior study dated: 07/03/2022. Recommendations, Care & Conclusions No obvious valvular pathology seen on this study. Measurements 2D Linear Measurements IVSd: 1.21 0.6-0.9/0.6-1.0 cm LVIDd: 4.80 3.9-5.3/4.2-5.9 cm LVIDd Index: 2.29 2.4-3.2/2.2-3.1 cm/m2 LVIDs: 3.54 2.0-3.6 cm LVPWd: 0.91 0.7-1.1 cm LA Diam: 3.10 2.7-3.8/3.0-4.0 cm LAIDs Index: 1.48 1.5-2.3 cm/m2 LV Mass: 230.06 67-162/88-224 g LV Mass Index: 109.55 43-95/49-115 g/m2 LVOT Diam: 2.10 3.0+(-)1.3 cm 2D Systolic Function EF 4C: 51.10 >55% EF 2C: 45.80 >55% EF BiP: 47.40 >55% Mitral Valve MV VTI: 0.28 MV Pk Julio C: 0.95 MV Mn Julio C: 0.55 MV Pk Grad: 4.00 MV Mn Grad: 1.00 MV Pk E: 0.86 MV PK A: 0.84 MV Decel Time: 228.00 E/A: 1.00 E'Lateral: 6.96 E'Medial: 5.33 E/E' Med: 16.10 E/E' Lat: 12.30 PHT: 67.00 MVA PHT: 3.28 MVA Continuity: 2.37 Decel [place]: 3.77 Aortic Valve AoV Pk Julio C: 1.66 AoV Mn Julio C: 1.18 AoV VTI: 0.35 AoV Pk Grad: 11.00 Aov Mn Grad: 6.00 MARTINEZ Cont.VTI: 1.88 LVOT LVOT Pk Julio C: 0.89 LVOT Mn Julio C: 0.61 LVOT VTI: 0.19 LVOT Pk Grad: 3.00 LVOT Mn Grad: 2.00 LVOT Diam: 2.10 LVOT Area: 3.46 Diastolic Function MV Pk E: 0.86 MV Pk A: 0.84 E/A: 1.00 E'Medial: 5.33 E/E' Med: 16.10 E' Laterial: 6.96 E/E' Lat: 12.30 Right Ventricle TAPSE (mm): 17.50 TVS' Julio C: 11.00 Tricuspid Valve TR Pk Julio C: 1.83 TR Pk Grad: 13.00 RA Press: 8.00 RVSP: 21.00 Great Vessels Aorta Sinus of Valsalva: 3.34 2.0-3.[address] [place]: 2.66 1.7-3.4 cm Ao Asc: 3.50 2.1-3.4 cm Ao Arch: 2.90 Updated in Other Vendor System with Status of Final Thiago Cates MD electronically signed on 06/13/2023 11:21:33 AM with status of Final
== END ==
LOC: HO.CARD 10:09
PROVIDERS: PCP Family Medicine; Visit Provider Internal Medicine Cardiovascular Disease
DX: I42.9 Cardiomyopathy, unspecified (principal)
CPT/HCPCS: 93306; Q9957

== ENCOUNTER → 2023-06-12 10:14 | Outpatient (BNV) | payer OTHER, SELFPAY | PROVIDERS: PCP Family Medicine; Visit Provider Internal Medicine | DX: I42.2 Other hypertrophic cardiomyopathy (principal) | CPT/HCPCS: 93306 ==

== ENCOUNTER 2023-06-20 08:27 | Outpatient (REF) | payer OTHER, SELFPAY ==
[2023-06-20 21:10] LABS: Vitamin B12 302 pg/mL (200-900)
[2023-06-21 10:43] LABS: RPR Rapid Plasma Reagin NON-REACTIVE (NON-REACTIVE)
== END 2023-06-20 08:28 | disposition home or self-care (01) ==
LOC: HO.HHCL 08:27
PROVIDERS: Visit Provider Family Medicine
DX: E11.65 Type 2 diabetes mellitus with hyperglycemia (principal); R68.89 Other general symptoms and signs; I42.9 Cardiomyopathy, unspecified; G47.34 Idiopathic sleep related nonobstructive alveolar hypoventilation
CPT/HCPCS: 36415; 82607; 86592; 93005; 99212

== ENCOUNTER 2023-06-20 15:05 | Outpatient (AMB) | payer OTHER, SELFPAY ==
[2023-06-20 15:12] VITALS: BP 124/78; PULSE 83; BMI 47.2
--- NOTE | 2023-06-20 15:12 | A.OFFVIS_ITS ---
Vital Signs 06/20/23 15:12 Height 5 ft 3 in Weight 266 lb 12.149 oz BMI 47.2 BP 124/78 Blood Pressure Location Lt brachial Position Sitting Pulse 83 Intake Visit Reasons: 1 yr f/u after echo Intake Note: 1 year follow-up after echo with ekg feeling ok Demo Event Specialist Required: Yes Demo Event Specialist Name: Rogers barone Allergies morphine [Morphine] Allergy (Mild, Verified 02/28/23 10:27) ITCHING, rash Iodinated Contrast Media [IV CONTRAST] Allergy (Unknown, Verified 02/28/23 10:27) itching tramadol [Ultram] Allergy (Unknown, Verified 02/28/23 10:27) rash From ULTRAM Allergy (Intermediate, Uncoded 01/11/23 11:55) ITCHY ivp contrast Allergy (Unknown, Uncoded 01/11/23 11:55) hives Medication List - Last Reconciled 06/20/23 by Rafa Moseley MD acetaminophen ER 650 mg PO Q8H PRN albuterol sulfate 90 mcg/actuation (ProAir HFA) 2 puffs PO Q6H PRN alcohol swabs (Alcohol Prep Pads) pad topical BID aripiprazole 10 mg PO QAM aspirin 81 mg PO QPM atorvastatin 20 mg PO BEDTIME blood sugar diagnostic (FreeStyle Lite Strips) As directed cholecalciferol (vitamin D3) 50 mcg PO QPM clotrimazole-betamethasone 1-0.05 % 1 appl topical BID PRN 7 days docusate sodium 100 mg PO dulaglutide (Trulicity) mg subcut QWEEK dulaglutide (Trulicity) mg subcut famotidine (Pepcid) 20 mg PO BID fluticasone propionate 50 mcg/actuation 1 spray intranasal BID fluticasone propionate 220 mcg/actuation (Flovent HFA) 1 puff PO BID gabapentin 400 mg PO TID isosorbide mononitrate ER 30 mg PO DAILY lancets (TRUEplus Lancets) As directed latanoprost 0.005% 1 drp ophthalmic (eye) BEDTIME levothyroxine 112 mcg PO DAILY lidocaine 5% (Lidoderm) 1 patch topical DAILY lisinopril 20 mg PO QPM loratadine 10 mg PO QAM lorazepam 1 mg PO BID PRN metformin 500 mg PO metoprolol succinate ER 25 mg PO QAM 90 days hvxlxfvdyoyb-htyf-tbwan acid 18-400 mg-mcg (Tab-A-Rito Multivitamin w-iron) 1 tab PO QAM oxycodone 5 mg PO Q6H PRN pantoprazole 40 mg PO QAM venlafaxine ER 150 mg PO QAM venlafaxine ER 75 mg PO QAM zolpidem 10 mg PO BEDTIME HPI Comments Details: Trish comes for follow-up. History was obtained with help of a certified translator and interpreter over the phone. Patient offers no new cardiac symptoms. Continues to have exertional shortness of breath although this is unchanged. Last echocardiogram shows mildly improved LV ejection fraction to 45-50%. She denies any clear orthopnea, PND, leg edema. She does get short of breath at nighttime. Reviewed her sleep study from December which shows nocturnal hypoxemia without any significant evidence of obstructive sleep apnea. Could be obesity hypoventilation syndrome. Could contribute to her symptoms at nighttime. She denies any leg edema, abdominal distention. No prolonged palpitation irregular heartbeat. REPLACED BY [facility] Medical History Diabetes HTN (hypertension) Cardiomyopathy Bilateral nephrolithiasis Retention of urine Acid reflux Surgical History Hx of tubal ligation H/O shoulder surgery History of hand surgery H/O knee surgery Family History Brother Breast cancer Social History Household Members: Children Household Members Other:: lives w/her grandson Alcohol intake: current Alcohol intake frequency: holidays/special occasions only Patient Tobacco Use Status: Never used Tobacco Current occupational status: disabled Current occupation: rt handed Gender identity: Female Female Reproductive History Menstrual Age of Menarche: 12 Review of Systems Const Denies chills, Denies fatigue, Denies fever(s), Denies frequent falls, Denies weakness, Denies weight gain and Denies weight loss ENT Denies dizziness Card Denies chest pain, Denies leg edema, Denies lightheadedness, Denies palpitations, Denies dyspnea, Denies dyspnea on exertion, Denies orthopnea and Denies other (loss of consciousness) Resp Denies cough, Denies dyspnea and Denies dyspnea on exertion GI Denies hematochezia and Denies change in stool character Musc Denies abnormal gait, Denies muscle weakness, Denies numbness, Denies radiating pain into limb and Denies tingling Neuro Denies abnormal gait, Denies dizziness, Denies frequent falls, Denies numbness, Denies tingling and Denies weakness Endo Denies fatigue and Denies palpitations Physical Exam Vital Signs: Last Vital Signs Pulse 83 06/20/23 15:12 BP 124/78 06/20/23 15:12 BMI result Body Mass Index 47.2 Const Other: Morbidly obese General: cooperative, comfortable and no acute distress Nutritional Appearance: obese morbidly obese Orientation/consciousness: patient oriented x3 Neck Neck: Yes normal visual inspection and Yes no JVD Resp Effort & Inspection: normal respiratory effort Auscultation: clear to auscultation bilaterally, no crackles, no rales, no rhonchi and no wheezes Cardio Rate: regular rate Rhythm: regular rhythm Heart sounds: S1 normal heart sound present, S2 normal heart sound present, no gallops, no murmurs and no rubs Neuro General: patient oriented x3 Extrem General: Yes normal to inspection Psych Appearance: grossly normal Mental Status: mental status grossly normal Speech and movement: Normal speech and movement present Office Procedures EKG Details: EKG shows normal sinus rhythm with low-voltage QRS in the precordial lead most likely due to body habitus with ST T wave changes suggestive of repolarization abnormality. [id number], Complete Assessment & Plan Assessment & Plan (1) Cardiomyopathy: Code(s): I42.9 - Cardiomyopathy, unspecified Category: Medical Plan: Cardiomyopathy which has improved with medical therapy. No clear clinical evidence of congestive heart failure. This was discussed with her. Continue neurohormonal modulation with metoprolol lisinopril. Continue participate in aggressive weight loss program. Is no evidence of myocardial ischemia by cardiac catheterization with normal coronary arteries. Signs and symptoms of he art failure were discussed advised to call me with any new symptoms. Follow up in the clinic after 1 year after echocardiogram. (2) Nocturnal hypoxemia: Code(s): G47.34 - Idiopathic sleep related nonobstructive alveolar hypoventilation Plan: Notice significant nocturnal hypoxemia. Question related to obesity hypoventilation syndrome versus possible sleep apnea. Will refer to Pulmonary for further evaluation. May require nocturnal oxygen therapy. Will follow up in the clinic in 1 year's time, sooner p.r.n.. Thank you for allowing me to partake in the care Orders: Orders CA echo transthoracic complete 1 Year I42.9 - Cardiomyopathy, unspecified Referrals Pulmonology Referral G47.34 - Idiopathic sleep related nonobstructive alveolar hypoventilation Coding Level of Care Code Est Pt Level 4 (30426) Diagnoses Cardiomyopathy I42.9 Nocturnal hypoxemia G47.34 CPT Codes EKG - CPT: 80440-[id number], Complete ([id number])
== END 2023-06-20 15:35 | disposition home or self-care (01) ==
PROVIDERS: Visit Provider Internal Medicine Cardiovascular Disease
DX: I42.9 Cardiomyopathy, unspecified (principal); G47.34 Idiopathic sleep related nonobstructive alveolar hypoventilation
CPT/HCPCS: 93010; 99214

== ENCOUNTER 2023-07-01 07:22 | Outpatient (REF) | payer OTHER, SELFPAY ==
--- NOTE | ~2023-07-01 | XR_ITS ---
EXAMINATION: XR BILATERAL KNEE SERIES CLINICAL INFORMATION: Pain in the knee. COMPARISON: X-rays of the knees February 2022. X-rays of the knees March 2016. TECHNIQUE: 3 views of both knees including AP upright. FINDINGS: Right knee: There is a total knee arthroplasty in place. The components are in the usual position and are unchanged. There is no periprosthetic fracture or surrounding abnormal lucency. There is no effusion. The surrounding soft tissues are normal other than some heterotopic ossification adjacent to the proximal pole of patella, unchanged. Left knee: There is a total knee arthroplasty in place. The components are in the usual position and are unchanged. There is no periprosthetic fracture. There is some persistent focal lucency along the posterior tibial plate seen on the lateral projection, unchanged dating back to February 2022 and not seen in March 2016. This area measures 6 x 6 mm. There is no effusion. The surrounding soft tissues are normal. XR/XR knee LT 3V IMPRESSION: RIGHT KNEE: Right total knee arthroplasty without change or complication by x-ray. LEFT KNEE: Left total knee arthroplasty intact. Persistent focal lucency along the posterior tibial plate seen on lateral projection unchanged compared to February 2022 but not identified on the x-ray in 2017. This could reflect a small focal area of osteolysis.
--- NOTE | ~2023-07-01 | XR_ITS ---
EXAMINATION: XR BILATERAL KNEE SERIES CLINICAL INFORMATION: Pain in the knee. COMPARISON: X-rays of the knees February 2022. X-rays of the knees March 2016. TECHNIQUE: 3 views of both knees including AP upright. FINDINGS: Right knee: There is a total knee arthroplasty in place. The components are in the usual position and are unchanged. There is no periprosthetic fracture or surrounding abnormal lucency. There is no effusion. The surrounding soft tissues are normal other than some heterotopic ossification adjacent to the proximal pole of patella, unchanged. Left knee: There is a total knee arthroplasty in place. The components are in the usual position and are unchanged. There is no periprosthetic fracture. There is some persistent focal lucency along the posterior tibial plate seen on the lateral projection, unchanged dating back to February 2022 and not seen in March 2016. This area measures 6 x 6 mm. There is no effusion. The surrounding soft tissues are normal. XR/XR knee RT 3V IMPRESSION: RIGHT KNEE: Right total knee arthroplasty without change or complication by x-ray. LEFT KNEE: Left total knee arthroplasty intact. Persistent focal lucency along the posterior tibial plate seen on lateral projection unchanged compared to February 2022 but not identified on the x-ray in 2017. This could reflect a small focal area of osteolysis.
== END 2023-07-01 07:23 | disposition home or self-care (01) ==
LOC: HO.HOSX 07:22
PROVIDERS: Visit Provider Orthopaedic Surgery
DX: Z96.652 Presence of left artificial knee joint (principal); M25.561 Pain in right knee
CPT/HCPCS: 73562; 99212

== ENCOUNTER 2023-07-01 10:48 | Outpatient (AMB) | payer OTHER, SELFPAY ==
[2023-07-01 11:08] VITALS: BMI 47.1
--- NOTE | 2023-07-01 11:08 | MHC.OFFVIS ---
Vital Signs 07/01/23 11:08 Height 5 ft 3 in Weight 266 lb BMI 47.1 Intake Visit Reasons: ov-Left Knee Pain - Hx of Left TKA 01/19/14 Intake Note: Trish is a 66 year old female who presents today for a follow up of her left knee pain. Hx of Left TKA 01/19/2014. Patient reports that she continues to have pain and swelling. Allergies morphine [Morphine] Allergy (Mild, Verified 07/01/23 11:08) ITCHING, rash Iodinated Contrast Media [IV CONTRAST] Allergy (Unknown, Verified 07/01/23 11:08) itching tramadol [Ultram] Allergy (Unknown, Verified 07/01/23 11:08) rash From ULTRAM Allergy (Intermediate, Uncoded 07/01/23 11:08) ITCHY ivp contrast Allergy (Unknown, Uncoded 07/01/23 11:08) hives HPI HPI ov-Left Knee Pain - Hx of Left TKA 01/19/14: Details: Trish is a 66 year old female who presents today for a follow up of her left knee pain. Hx of Left TKA 01/19/2014. Patient reports that she continues to have pain and swelling. She states this has been worsening over the past year. She did fall on it about a year ago at which time I took radiographs and was not overly concerned. [facility] Medical History Diabetes HTN (hypertension) Cardiomyopathy Bilateral nephrolithiasis Retention of urine Acid reflux Surgical History Hx of tubal ligation H/O shoulder surgery History of hand surgery H/O knee surgery Family History Brother Breast cancer Social History Household Members: Children Household Members Other:: lives w/her grandson Alcohol intake: current Alcohol intake frequency: holidays/special occasions only Patient Tobacco Use Status: Never used Tobacco Current occupational status: disabled Current occupation: rt handed Gender identity: Female Female Reproductive History Menstrual Age of Menarche: 12 Physical Exam Vital Signs: BMI result Body Mass Index 47.1 Extrem Other: Mild effusion and tenderness to palpation over the anterior and medial tibia Positive gait antalgia Results Reviewed Results Reviewed: I personally reviewed relevant radiographs. There is a question of lucency between cement prosthetic interface Assessment & Plan Assessment & Plan (1) Status post left knee replacement: Code(s): Z96.652 - Presence of left artificial knee joint Category: Surgical Plan: Left knee concerning for aseptic loosening. I ordered a three phase bone scan. Will contact when results are in Orders: Orders NM bone scan whole body Today Z96.652 - Presence of left artificial knee joint XR knee standing BI Today M25.569 - Pain in unspecified knee Coding Level of Care Code Est Pt Level 4 (96953) Diagnoses Status post left knee replacement Z96.652
== END 2023-07-01 13:04 | disposition home or self-care (01) ==
PROVIDERS: PCP Family Medicine; Visit Provider Orthopaedic Surgery
DX: M25.562 Pain in left knee (principal); Z96.652 Presence of left artificial knee joint
CPT/HCPCS: 99213

== ENCOUNTER 2023-08-06 10:41 | Outpatient (REF) | payer OTHER, SELFPAY | END 2023-08-06 10:42 | disposition home or self-care (01) | LOC: HO.MAMMO 10:41 | PROVIDERS: PCP Family Medicine; Visit Provider Family Medicine | DX: Z12.31 Encounter for screening mammogram for malignant neoplasm of breast (principal) | CPT/HCPCS: 77063; 77067 ==

== ENCOUNTER → 2023-08-06 11:00 | Outpatient (BNV) | payer OTHER, SELFPAY | PROVIDERS: PCP Family Medicine; Visit Provider Radiology Diagnostic Radiology | DX: Z12.31 Encounter for screening mammogram for malignant neoplasm of breast (principal) | CPT/HCPCS: 77063; 77067 ==

== ENCOUNTER 2023-11-11 09:02 | Outpatient (REF) | payer OTHER, SELFPAY ==
[2023-11-11 11:53] LABS: Hematocrit 36.9 % (37.0-47.0); Hemoglobin 11.9 g/dl (12.0-16.0); Mean Corpuscular HGB Conc 32.2 g/dl (31.0-35.0); Mean Corpuscular Hemoglobin 28.1 pg (27.0-33.0); Mean Platelet Volume 9.8 fL (9.4-12.3); Platelet Count 301 X10*3/uL (160-400); Red Blood Count 4.24 X10*6/uL (4.20-5.50); Red Cell Distribution Width 13.7 % (11.0-16.0); White Blood Count 10.1 X10*3/uL (4.8-10.8)
[2023-11-11 12:05] LABS: Estimated Average Glucose 169 mg/dL; Hemoglobin A1c % 7.5 % (<6.0)
[2023-11-11 12:37] LABS: Alanine Aminotransferase 38 U/L (0-31); Albumin Level 4.2 g/dL (3.5-5.0); Alkaline Phosphatase 146 U/L (39-117); Anion Gap 14 (12-20); Aspartate Amino Transferase 44 U/L (5-31); Bilirubin Direct 0.2 mg/dL (0.0-0.5); Bilirubin Total 0.3 mg/dL (0.0-1.0); Blood Urea Nitrogen 22 mg/dL (9-16); Calcium 9.8 mg/dL (8.4-10.2); Carbon Dioxide 24 mmol/L (22-29); Chloride 102 mmol/L (96-108); Cholesterol 108 mg/dL (<200); Estimated Glomerular Filt Rate 44; Free T4 (Free Thyroxine) 0.92 ng/dL (0.71-1.85); Glucose Random 221 mg/dL (60-115); HDL Cholesterol 41 mg/dL (>40); LDL Cholesterol Calculated 42 mg/dL (<100); Potassium 4.4 mmol/L (3.3-5.1); Sodium 136 mmol/L (135-145); Thyroid Stimulating Hormone 4.39 uIU/mL (0.32-4.0); Total Protein 7.6 g/dL (6.5-8.0); Triglycerides 128 mg/dL (<150); Vitamin D 25-OH Total 26.5 ng/mL (>30)
[2023-11-11 12:43] LABS: Folate 15.4 ng/mL (> or = 4.0); Vitamin B12 258 pg/mL (200-900)
[2023-11-12 13:08] LABS: Alpha Fetoprotein 2.2 ng/mL
[2023-11-13 04:03] LABS: RPR Rapid Plasma Reagin NON-REACTIVE (NON-REACTIVE)
== END 2023-11-11 09:03 | disposition home or self-care (01) ==
LOC: HO.HHCL 09:02
PROVIDERS: Visit Provider Family Medicine
DX: Z00.00 Encounter for general adult medical examination without abnormal findings (principal); K52.9 Noninfective gastroenteritis and colitis, unspecified; R93.0 Abnormal findings on diagnostic imaging of skull and head, not elsewhere classified; R68.89 Other general symptoms and signs; G47.30 Sleep apnea, unspecified; R42 Dizziness and giddiness; N20.0 Calculus of kidney; R25.1 Tremor, unspecified; I42.8 Other cardiomyopathies; E03.8 Other specified hypothyroidism; J45.30 Mild persistent asthma, uncomplicated; F33.9 Major depressive disorder, recurrent, unspecified; K76.0 Fatty (change of) liver, not elsewhere classified; E78.49 Other hyperlipidemia; I10 Essential (primary) hypertension; E11.9 Type 2 diabetes mellitus without complications
CPT/HCPCS: 36415; 80048; 80061; 80076; 82105; 82306; 82607; 82746; 83036; 84439; 84443; 85027; 86592

== ENCOUNTER → 2023-12-11 09:35 | Outpatient (REF) | payer OTHER, SELFPAY ==
--- NOTE | ~2023-12-11 | NM_ITS ---
EXAMINATION: THREE PHASE BONE SCAN CLINICAL INFORMATION: 67-year-old female with the left knee pain and swelling. Status post total left knee arthroplasty and 01/19/2014.. History of remote right knee arthroplasty as well. COMPARISON: Radiographs of both knees done on 07/01/2023.. TECHNIQUE: Initial rapid sequence images were obtained over the knees during the bolus injection of 40.0 mCi Tc-99m MDP. Static images of the pelvis and both lower extremities were then obtained 3.25 hours post injection. FINDINGS: The initial flow sequences shows mild asymmetric increased flow to the left knee, especially the medial aspect of the femoral component of the left knee prosthesis. Subsequent blood pool images further confirm presence of persistent tracer activity involving the posterior medial aspect of the femoral component of the left knee prosthesis. The final delayed phase sequences shows persistent asymmetric increased tracer activity mostly localizing to the posterior medial aspect of the left femoral component of the left knee prosthesis. Normal expected physiologic tracer distribution is noted within the remainder of the left and the entire right knee prosthesis. Nonspecific increased tracer activity at both ankle (left greater than right and both midfoot likely represent nonspecific posttraumatic and/or arthritic changes. Radiographic correlation would be helpful for further clarification and may be considered as appropriate clinically. NM/NM bone 3 phase IMPRESSION: * Abnormal three-phase bone scan of the left knee prosthesis showing asymmetric increased flow as well as persistent asymmetric tracer activity involving posteromedial aspect of the femoral component. Possible differential diagnostic consideration would include loosening versus infection or both. Follow-up technetium 99m label WBC scan as well as sulfur colloid scan as appropriate may be considered for further differentiation. * Scintigraphically unremarkable right knee prosthesis. * Nonspecific increased tracer activity at both ankle and both feet most consistent with posttraumatic and/or nonspecific arthritic changes. Radiographic correlation would be helpful for further differentiation and may be considered as clinically appropriate. . Electronically signed by: Mukund Marie MD 01/21/2024 12:35 PM [facility]
== END ==
LOC: HO.NUCMED 09:35
PROVIDERS: Visit Provider Orthopaedic Surgery
DX: Z96.652 Presence of left artificial knee joint (principal)
CPT/HCPCS: 78315; A9503

== ENCOUNTER 2023-12-26 13:10 | Outpatient (AMB) | payer OTHER, SELFPAY ==
--- NOTE | 2023-12-26 13:13 | A.OFFVIS_ITS ---
Intake Visit Reasons: OV - Left Knee Bone Scan Review Intake Note: Trish is a 66 year old female who presents today for a follow up of her left knee pain. Hx of Left TKA 01/19/2014. Bone scan done 12/11/23 for concerns of aseptic loosening. Allergies morphine [Morphine] Allergy (Mild, Verified 07/01/23 11:08) ITCHING, rash Iodinated Contrast Media [IV CONTRAST] Allergy (Unknown, Verified 07/01/23 11:08) itching tramadol [Ultram] Allergy (Unknown, Verified 07/01/23 11:08) rash From ULTRAM Allergy (Intermediate, Uncoded 07/01/23 11:08) ITCHY ivp contrast Allergy (Unknown, Uncoded 07/01/23 11:08) hives HPI HPI OV - Left Knee Bone Scan Review: Details: Trish is a 66 year old female who presents today for a follow up of her left knee pain. Hx of Left TKA 01/19/2014. Bone scan done 12/11/23 for concerns of aseptic loosening. Patient reports that she continues to have pain and swelling. She states this has been worsening over the past year. She did fall on it about a year ago at which time I took radiographs and was not overly concerned. She has however continued to worsen. She has swelling and pain and feels like she can not ambulate or bend her knee. She denies fevers and chills. [facility] Medical History Diabetes HTN (hypertension) Cardiomyopathy Bilateral nephrolithiasis Retention of urine Acid reflux Surgical History Hx of tubal ligation H/O shoulder surgery History of hand surgery H/O knee surgery Family History Brother Breast cancer Social History Household Members: Children Household Members Other:: lives w/her grandson Alcohol intake: current Alcohol intake frequency: holidays/special occasions only Patient Tobacco Use Status: Never used Tobacco Current occupational status: disabled Current occupation: rt handed Gender identity: Female Female Reproductive History Menstrual Age of Menarche: 12 Physical Exam Extrem Other: Moderate effusion and tenderness to palpation over the anterior and medial tibia Positive gait antalgia Results Reviewed Results Reviewed: I personally reviewed relevant radiographs. Left total knee arthroplasty intact. Persistent focal lucency along the posterior tibial plate seen on lateral projection unchanged compared to February 2022 but not identified on the x-ray in 2017. This could reflect a small focal area of osteolysis. Assessment & Plan Assessment & Plan (1) Status post left knee replacement: Code(s): Z96.652 - Presence of left artificial knee joint Category: Surgical Plan: This is a 67-year-old woman 10 years status post left knee replacement. Her femur and tibia both appear with lucency in the bone cement interface. She has persistent swelling and I recommend a revision left knee replacement. I discussed this with her. I explained the options. Prior to surgery I would like to aspirate the knee to rule out infection but had, at this rate, I have a low index of suspicion for for an infection. I discussed the risks, benefits alternatives to surgery. I will have our patient scheduler contact her and begin the preoperative clearance process. Coding Level of Care Code Est Pt Level 4 (69331) Diagnoses Status post left knee replacement Z96.652
== END 2023-12-26 13:42 | disposition home or self-care (01) ==
LOC: HO.HOS 13:10
PROVIDERS: PCP Family Medicine; Visit Provider Orthopaedic Surgery
DX: M25.562 Pain in left knee (principal); Z47.1 Aftercare following joint replacement surgery; Z96.652 Presence of left artificial knee joint
CPT/HCPCS: 99214

== ENCOUNTER → 2023-12-26 13:10 | Outpatient (BNVA) | payer OTHER, SELFPAY | PROVIDERS: PCP Family Medicine; Visit Provider Orthopaedic Surgery | DX: Z96.652 Presence of left artificial knee joint (principal) | CPT/HCPCS: 99212 ==

== ENCOUNTER 2023-12-31 13:30 | Outpatient (REF) | payer OTHER, SELFPAY ==
[2024-01-02 14:34] LABS: Benzoylecgonine 228 (H)
== END 2023-12-31 13:31 | disposition home or self-care (01) ==
LOC: HO.LNP 13:30
PROVIDERS: Visit Provider Family Medicine
DX: M54.41 Lumbago with sciatica, right side (principal); G89.29 Other chronic pain
CPT/HCPCS: 80353

== ENCOUNTER 2024-01-16 12:54 | Outpatient (AMB) | payer OTHER, SELFPAY ==
--- NOTE | 2024-01-16 13:06 | MHC.OFFVIS ---
Intake Visit Reasons: L knee aspiration; synovasure Intake Note: Trish is a 68 year old female who presents today for a Left Knee Synovasure aspiration Allergies morphine [Morphine] Allergy (Mild, Verified 07/01/23 11:08) ITCHING, rash Iodinated Contrast Media [IV CONTRAST] Allergy (Unknown, Verified 07/01/23 11:08) itching tramadol [Ultram] Allergy (Unknown, Verified 07/01/23 11:08) rash From ULTRAM Allergy (Intermediate, Uncoded 07/01/23 11:08) ITCHY ivp contrast Allergy (Unknown, Uncoded 07/01/23 11:08) hives HPI HPI L knee aspiration; synovasure: Details: Trish is a 68 year old female who presents today for a Left Knee Synovasure aspiration PFSH Medical History Diabetes HTN (hypertension) Cardiomyopathy Bilateral nephrolithiasis Retention of urine Acid reflux Surgical History Hx of tubal ligation H/O shoulder surgery History of hand surgery H/O knee surgery Family History Brother Breast cancer Social History Household Members: Children Household Members Other:: lives w/her grandson Alcohol intake: current Alcohol intake frequency: holidays/special occasions only Patient Tobacco Use Status: Never used Tobacco Current occupational status: disabled Current occupation: rt handed Gender identity: Female Female Reproductive History Menstrual Age of Menarche: 12 Physical Exam Extrem Other: skin c/d/i no evidence of infection Office Procedures Joint Inj/Aspir; Non-Pain Clin Joint Injection/Drain Details: Aspiration left knee Prep: site was prepped using aseptic technique Approach Used: lateral parapatellar Procedure: The patient tolerated the procedure well Shoulders, Hips, Knees, Knee Large Joint Injection 94220: Left Knee Coding Procedure code (CPT) selection complete Assessment & Plan Assessment & Plan (1) Status post left knee replacement: Code(s): Z96.652 - Presence of left artificial knee joint Category: Surgical Plan: She has evidence of aseptic loosening of the left knee. She will be tentatively scheduled for proximally 3 months pending medical clearance. Synovasure sent to lab. Coding Level of Care Code Est Pt Level 2 (83298) Diagnoses Status post left knee replacement Z96.652 CPT Codes Shoulders, Hips, Knees, - Knee Large Joint Injection : Left Knee ([id number])
== END 2024-01-16 13:33 | disposition home or self-care (01) ==
PROVIDERS: PCP Family Medicine; Visit Provider Orthopaedic Surgery
DX: M25.462 Effusion, left knee (principal); T84.033A Mechanical loosening of internal left knee prosthetic joint, initial encounter; Z96.652 Presence of left artificial knee joint
CPT/HCPCS: 20610

== ENCOUNTER → 2024-01-16 12:54 | Outpatient (BNVA) | payer OTHER, SELFPAY | PROVIDERS: PCP Family Medicine; Visit Provider Orthopaedic Surgery | DX: Z96.652 Presence of left artificial knee joint (principal) | CPT/HCPCS: 20610 ==

== ENCOUNTER 2024-01-28 14:04 | Outpatient (AMB) | payer OTHER, SELFPAY ==
[2024-01-28 14:14] VITALS: BP 120/62; PULSE 97; BMI 46.5
--- NOTE | 2024-01-28 14:14 | MHC.OFFVIS ---
Vital Signs 01/28/24 14:14 Height 5 ft 3 in Weight 262 lb 5.601 oz BMI 46.5 BP 120/62 Blood Pressure Location Lt brachial Position Sitting Pulse 97 Pulse Source Monitor Intake Visit Reasons: Preop/ Dr Oro / MEME (NS pt) Certified Vehicle Fire Investigator Required: Yes Certified Vehicle Fire Investigator Name: KYLER [id number] Allergies morphine [Morphine] Allergy (Mild, Verified 07/01/23 11:08) ITCHING, rash Iodinated Contrast Media [IV CONTRAST] Allergy (Unknown, Verified 07/01/23 11:08) itching tramadol [Ultram] Allergy (Unknown, Verified 07/01/23 11:08) rash From ULTRAM Allergy (Intermediate, Uncoded 07/01/23 11:08) ITCHY ivp contrast Allergy (Unknown, Uncoded 07/01/23 11:08) hives Medication List - Last Reconciled 01/28/24 by Rafa Moseley MD acetaminophen ER 650 mg PO Q8H PRN albuterol sulfate 90 mcg/actuation (ProAir HFA) 2 puffs PO Q6H PRN aripiprazole 10 mg PO QAM aspirin 81 mg PO QPM atorvastatin 20 mg PO BEDTIME blood sugar diagnostic (FreeStyle Lite Strips) As directed cholecalciferol (vitamin D3) 50 mcg PO QPM clotrimazole-betamethasone 1-0.05 % 1 appl topical BID PRN 7 days docusate sodium 100 mg PO dulaglutide (Trulicity) mg subcut QWEEK fluticasone propionate 50 mcg/actuation 1 spray intranasal BID fluticasone propionate 220 mcg/actuation (Flovent HFA) 1 puff PO BID gabapentin 400 mg PO TID isosorbide mononitrate ER 30 mg PO DAILY lancets (TRUEplus Lancets) As directed latanoprost 0.005% 1 drp ophthalmic (eye) BEDTIME levothyroxine 112 mcg PO DAILY lidocaine 5% (Lidoderm) 1 patch topical DAILY lisinopril 20 mg PO QPM loratadine 10 mg PO QAM lorazepam 1 mg PO BID PRN metformin 500 mg PO metoprolol succinate ER 25 mg PO QAM 90 days sphdimrsyofm-qmac-blznl acid 18-400 mg-mcg (Tab-A-Rito Multivitamin w-iron) 1 tab PO QAM oxycodone 5 mg PO Q6H PRN pantoprazole 40 mg PO QAM venlafaxine ER 150 mg PO QAM venlafaxine ER 75 mg PO QAM zolpidem 10 mg PO BEDTIME HPI Comments Details: Trish comes for follow-up for preoperative cardiovascular risk stratification prior to knee surgery. This is scheduled for next month under general anesthesia. History was obtained with help of freelance interpreter/translator. Patient was no new cardiac symptoms to report in the last 8 months since I saw her. She had a coronary CTA which showed normal coronary arteries after she had abnormal myocardial perfusion imaging. Her echocardiogram at shown mildly reduced LV ejection fraction. She denies any new symptoms of chest pain. Denies any new heart failure symptoms of orthopnea, PND, leg edema. Takes all her medications. No lightheadedness, syncope. No prolonged palpitation or irregular heartbeat. Quite limited because of the arthritis. [facility] Medical History Abnormal nuclear stress test Diabetes HTN (hypertension) Cardiomyopathy Bilateral nephrolithiasis Retention of urine Acid reflux Surgical History Hx of tubal ligation H/O shoulder surgery History of hand surgery H/O knee surgery Family History Brother Breast cancer Social History Household Members: Children Household Members Other:: lives w/her grandson Alcohol intake: current Alcohol intake frequency: holidays/special occasions only Patient Tobacco Use Status: Never used Tobacco Current occupational status: disabled Current occupation: rt handed Gender identity: Female Female Reproductive History Menstrual Age of Menarche: 12 Review of Systems Const Denies weakness ENT Denies dizziness Card Reports chest pain, Denies chest pain with activity, Denies syncope, Denies rapid heart rate, Denies pedal edema, Denies edema, Denies leg edema, Denies lightheadedness, Denies palpitations, Denies dyspnea, Denies dyspnea on exertion and Denies orthopnea Resp Denies cough, Denies dyspnea and Denies dyspnea on exertion GI Denies hematochezia and Denies change in stool character Musc Denies abnormal gait, Denies muscle cramps, Denies muscle weakness, Denies numbness, Denies radiating pain into limb and Denies tingling Neuro Denies abnormal gait, Denies dizziness, Denies syncope, Denies numbness, Denies tingling and Denies weakness Endo Denies palpitations Physical Exam Vital Signs: Last Vital Signs Pulse 97 01/28/24 14:14 BP 120/62 01/28/24 14:14 BMI result Body Mass Index 46.5 Const Other: Morbidly obese General: cooperative, comfortable and no acute distress Nutritional Appearance: obese morbidly obese Orientation/consciousness: patient oriented x3 Neck Neck: Yes normal visual inspection and Yes no JVD Resp Effort & Inspection: normal respiratory effort Auscultation: clear to auscultation bilaterally, no crackles, no rales, no rhonchi and no wheezes Cardio Rate: regular rate Rhythm: regular rhythm Heart sounds: S1 normal heart sound present, S2 normal heart sound present, no gallops, no murmurs and no rubs Neuro General: patient oriented x3 Extrem General: Yes normal to inspection Psych Appearance: grossly normal Mental Status: mental status grossly normal Speech and movement: Normal speech and movement present Office Procedures EKG Details: EKG shows normal sinus rhythm with low-voltage QRS [id number], Complete Assessment & Plan Assessment & Plan (1) Preoperative cardiovascular examination: Code(s): Z01.810 - Encounter for preprocedural cardiovascular examination Plan: Preoperative cardiovascular risk stratification this elderly woman with limited exercise capacity and obesity with mild cardiomyopathy without congestive heart failure with well controlled blood pressure and no evidence of coronary artery disease by coronary CTA. She is currently optimized to undergo the surgery with low to intermediate risk for perioperative cardiovascular morbidity mortality. Her main issue could be airway related given her significant weight. However I would advised to continue all her cardiac medications in the perioperative period except for aspirin which can be withheld for 5-7 days prior to the surgery. This was discussed with him with help of freelance interpreter/translator. She understands and agrees. (2) Cardiomyopathy: Code(s): I42.9 - Cardiomyopathy, unspecified Category: Medical Plan: Mild cardiomyopathy without overt signs of congestive heart failure. Continue neurohormonal modulation with metoprolol lisinopril therapy. Signs and symptoms of heart failure were discussed. She would benefit from aggressive blood pressure control as well as aggressive weight loss program. Increase activity level is suggested. Advised to call me with any new symptoms. Will follow up in the clinic in 1 year's time after an echocardiogram. Thank you for allowing me to partake in his care Orders: Orders CA echo transthorac w con 1 Year I42.9 - Cardiomyopathy, unspecified Coding Level of Care Code Est Pt Level 4 (33594) Complex EM visit Add On G2211 Diagnoses Preoperative cardiovascular examination Z01.810 Cardiomyopathy I42.9 CPT Codes EKG - CPT: 39751-[id number], Complete ([id number])
== END 2024-01-28 14:39 | disposition home or self-care (01) ==
PROVIDERS: PCP Family Medicine; Visit Provider Internal Medicine Cardiovascular Disease
DX: Z01.810 Encounter for preprocedural cardiovascular examination (principal); I42.9 Cardiomyopathy, unspecified
CPT/HCPCS: 93010; 99214; G2211

== ENCOUNTER → 2024-01-28 14:04 | Outpatient (BNVA) | payer OTHER, SELFPAY | PROVIDERS: PCP Family Medicine; Visit Provider Internal Medicine Cardiovascular Disease | DX: Z01.810 Encounter for preprocedural cardiovascular examination (principal); I42.9 Cardiomyopathy, unspecified | CPT/HCPCS: 93005; 99212 ==

== ENCOUNTER 2024-02-07 13:29 | Outpatient (AMB) | payer OTHER, SELFPAY ==
[2024-02-07 13:34] VITALS: BP 110/67; PULSE 87; O2SAT 96; BMI 46.3
--- NOTE | 2024-02-07 13:34 | MHC.OFFVIS ---
Vital Signs 02/07/24 13:34 Height 5 ft 3 in Weight 261 lb 3.964 oz BMI 46.3 BP 110/67 Blood Pressure Location Lt brachial Position Sitting Pulse 87 Pulse Source Doppler Pulse Oximetry (%) 96 Oxygen Delivery Method Room Air Intake Visit Reasons: sleep/pre-op clearance Steward/[employer]wardess [employer] Required: Yes Steward/Stewardess [employer] Name: Ethel Rodas Allergies morphine [Morphine] Allergy (Mild, Verified 02/07/24 13:38) ITCHING, rash Iodinated Contrast Media [IV CONTRAST] Allergy (Unknown, Verified 02/07/24 13:38) itching tramadol [Ultram] Allergy (Unknown, Verified 02/07/24 13:38) rash From ULTRAM Allergy (Intermediate, Uncoded 07/01/23 11:08) ITCHY ivp contrast Allergy (Unknown, Uncoded 07/01/23 11:08) hives HPI HPI sleep/pre-op clearance: Details: 68-year-old lady, nonsmoker, scheduled to undergo an orthopedic procedure referred for pulmonary evaluation. Patient did have sleep study that showed no underlying obstructive apnea, but nocturnal hypoxia. Patient does also have underlying history of asthma that has been controlled on albuterol MDI. She denies other prior personal or family history of lung disease. She denies any current pulmonary symptoms. [facility] Medical History Abnormal nuclear stress test Diabetes HTN (hypertension) Cardiomyopathy Bilateral nephrolithiasis Retention of urine Acid reflux Surgical History Hx of tubal ligation H/O shoulder surgery History of hand surgery H/O knee surgery Family History Brother Breast cancer Social History Household Members: Children Household Members Other:: lives w/her grandson Alcohol intake: current Alcohol intake frequency: holidays/special occasions only Patient Tobacco Use Status: Never used Tobacco Current occupational status: disabled Current occupation: rt handed Gender identity: Female Female Reproductive History Menstrual Age of Menarche: 12 Review of Systems Const Denies daytime sleepiness, Denies excessive sweating, Denies fatigue, Denies fever(s), Denies lethargy, Denies malaise, Denies night sweats, Denies snoring and Denies weight loss Eyes Denies blurry vision and Denies itchy eyes ENT Denies nasal congestion, Denies post nasal drip, Denies sinus pain, Denies sinus pressure and Denies other ( Thrush) Card Denies chest pain, Denies pedal edema, Denies dyspnea, Denies orthopnea and Denies paroxysmal nocturnal dyspnea Resp Denies cough, Denies hemoptysis, Denies excessive phlegm production, Denies dyspnea, Denies snoring and Denies wheezing GI Denies abdominal pain and Denies heartburn Musc Denies myalgias, Denies arthralgias and Denies joint swelling Skin/Breast Denies rash Neuro Denies memory loss and Denies seizure-like activity Psych Denies abnormal sleep pattern, Denies anxiety and Denies memory loss Endo Denies excessive sweating, Denies fatigue and Denies heat intolerance Lai/Lymph Denies easy bruising Aller/Immun Denies itchy eyes, Denies seasonal rhinorrhea and Denies wheezing Physical Exam Vital Signs: Last Vital Signs Pulse 87 02/07/24 13:34 BP 110/67 02/07/24 13:34 Pulse Ox 96 02/07/24 13:34 Oxygen Delivery Method Room Air 02/07/24 13:34 BMI result Body Mass Index 46.3 Const General: no acute distress and alert Nutritional Appearance: obese Orientation/consciousness: Other orientation findings ( oriented) HEENT Head: Yes atraumatic Eyes General: appearance normal, both eyes and all related structures Sclerae: sclerae normal EOM: EOMs intact bilaterally Neck Neck: Yes supple Lymphatic: no lymphadenopathy noted Resp Effort & Inspection: normal respiratory effort and no use of accessory muscles Auscultation: clear to auscultation bilaterally Cardio Rate: regular rate Rhythm: regular rhythm Heart sounds: no gallops, no murmurs and no rubs Skin General skin exam: other ( warm) Extrem General: No clubbing, No cyanosis and No edema Assessment & Plan Assessment & Plan (1) Asthma: Code(s): J45.909 - Unspecified asthma, uncomplicated Category: Medical Plan: Of unclear severity. Will obtain full PFT. Continue baseline regimen of albuterol MDI as needed. (2) Nocturnal hypoxia: Code(s): G47.34 - Idiopathic sleep related nonobstructive alveolar hypoventilation Category: Medical Plan: Results of sleep study reviewed, nocturnal hypoxemia without obstructive sleep apnea. Will follow-up with overnight oximetry study and CT chest. (3) Preop pulmonary/respiratory exam: Code(s): Z01.811 - Encounter for preprocedural respiratory examination Category: Medical Plan: At this time patient is at low risk for pulmonary preoperative complications for the proposed knee surgery under general anesthesia. Orders: Orders PFT pulmonary function test Today J45.909 - Unspecified asthma, uncomplicated CT chest wo IV con Today G47.34 - Idiopathic sleep related nonobstructive alveolar hypoventilation Overnight Pulse Oximetry Today G47.34 - Idiopathic sleep related nonobstructive alveolar hypoventilation Coding Level of Care Code New Pt Level 4 (89564) Diagnoses Asthma J45.909 Nocturnal hypoxia G47.34 Preop pulmonary/respiratory exam Z01.811
== END 2024-02-07 13:54 | disposition home or self-care (01) ==
PROVIDERS: PCP Family Medicine; Visit Provider Internal Medicine Pulmonary Disease
DX: J45.909 Unspecified asthma, uncomplicated (principal); G47.34 Idiopathic sleep related nonobstructive alveolar hypoventilation; Z01.811 Encounter for preprocedural respiratory examination
CPT/HCPCS: 99204

== ENCOUNTER → 2024-02-07 13:29 | Outpatient (BNVA) | payer OTHER, SELFPAY | PROVIDERS: PCP Family Medicine; Visit Provider Internal Medicine Pulmonary Disease | DX: Z01.811 Encounter for preprocedural respiratory examination (principal); J45.909 Unspecified asthma, uncomplicated; G47.34 Idiopathic sleep related nonobstructive alveolar hypoventilation | CPT/HCPCS: 99202 ==

== ENCOUNTER → 2024-02-24 10:51 | Outpatient (BNVA) | payer OTHER, SELFPAY | PROVIDERS: PCP Family Medicine | DX: Z01.818 Encounter for other preprocedural examination (principal) ==

== ENCOUNTER 2024-03-19 08:57 | Outpatient (AMB) | payer OTHER, SELFPAY ==
--- NOTE | 2024-03-19 09:10 | A.OFFVIS_ITS ---
Vital Signs 03/19/24 09:12 Height 5 ft 3 in Weight 259 lb BMI 45.9 Handedness Right Intake Visit Reasons: Pre-Op: Left Knee Arthroplasty w/revision 03/24/24 Intake Note: Trish is a 68 year old female who presents today for a pre op appointment for her revision left knee arthroplasty on 03/24/24 NE. Central Office Mechanic Required: Yes Central Office Mechanic Language: Customer Engineering Specialist Services: Central Office Mechanic Present Central Office Mechanic Name: DESTINEE Medina/DEBBIE Information Interpreted: clinical only Allergies Iodinated Contrast Media [IV CONTRAST] Allergy (Severe, Verified 03/19/24 09:13) itching, hives morphine [Morphine] Allergy (Intermediate, Verified 03/19/24 09:13) ITCHING, rash tramadol [Ultram] Allergy (Intermediate, Verified 03/19/24 09:13) rash, itching HPI HPI Pre-Op: Left Knee Arthroplasty w/revision 03/24/24: Details: Ms. Dale Renae is a 68-year-old?female?who presents in the office today for?her?preoperative history and physical exam prior to a?revision left total knee arthroplasty?to be performed on?03/24/2024?by?Dr. Oro.?? - Patient has an allergy history, as follows:? IV contrast, morphine, tramadol? - patient has stopped taking the low-dose aspirin as well as the Trulicity? ? COUNT INCLUDES THE [facility] Medical History (Updated 03/19/24 @ 10:12 by Marychuy Dennison PA-C) Arthritis Hypothyroidism Renal calculi Environmental and seasonal allergies Nocturnal hypoxia Abnormal nuclear stress test Diabetes HTN (hypertension) Cardiomyopathy Bilateral nephrolithiasis Retention of urine Acid reflux Surgical History (Updated 02/25/24 @ 10:06 by Sonia Natarajan RN) History of total left knee replacement (TKR) Hx of lithotripsy (2018) History of total right knee replacement (2011) Hx of repair of right rotator cuff (2013) History of cystoscopy Hx of tubal ligation History of hand surgery Family History Brother Breast cancer Social History Household Members: Family Household Members Other:: lives w/her grandson Housing: Apartment Are you a primary dialysis patient care technician to a significant other at home: Yes (grandson 17 yrs) Do you presently have visiting nurse or other home services: Yes ([employer]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) Alcohol intake: current Alcohol intake frequency: holidays/special occasions only Patient Tobacco Use Status: Never used Tobacco Current occupational status: disabled Current occupation: rt handed Gender identity: Female Female Reproductive History Menstrual Age of Menarche: 12 Review of Systems Const All systems reviewed & are unremarkable except as noted in HPI and below Physical Exam Vital Signs: BMI result Body Mass Index 45.9 Const General: cooperative, healthy appearing, comfortable, no acute distress, well developed, alert and awake Orientation/consciousness: patient oriented x3 HEENT Head: Yes normal to inspection, Yes normocephalic and Yes atraumatic Eyes General: appearance normal, both eyes and all related structures Neck Neck: Yes normal visual inspection and Yes no lymphadenopathy Resp Effort & Inspection: normal respiratory effort and able to speak in complete sentences Cardio Rate: regular rate Peripheral pulses: Peripheral pulses 2+ throughout GI Inspection: Yes normal to inspection Palpation (GI): Soft to palpation Skin General skin exam: no rashes or lesions noted Neuro General: patient oriented x3 Extrem Other: skin c/d/i no evidence of infection Psych Mental Status: mental status grossly normal Assessment & Plan Assessment & Plan (1) Status post left knee replacement: Code(s): Z96.652 - Presence of left artificial knee joint Category: Surgical (2) Aseptic loosening of prosthetic knee: Code(s): T84.038A - Mechanical loosening of other internal prosthetic joint, initial encounter; Z96.659 - Presence of unspecified artificial knee joint Category: Medical Plan Ms. Dale Renae is a 68-year-old?female?who presents in the office today for?her?preoperative history and physical exam prior to a?revision left total knee arthroplasty?to be performed on?03/24/2024?by?Dr. Oro.?? - Patient has an allergy history, as follows:? IV contrast, morphine, tramadol? - patient has stopped taking the low-dose aspirin as well as the Trulicity? I discussed in detail the procedure and what to expect pre and post operatively. We discussed the risks, benefits and alternatives to the surgery as well as the rehabilitation course. The risks; which include, but are not limited to infection, bleeding, nerve injury, ongoing pain, swelling, and stiffness, perioperative risk of injury to bones and soft tissues, and blood clots. I?ve answered all questions and with their understanding they have consented to move forward with left total knee revision arthroplasty with Dr. Oro. Orders: Orders XR knee LT 3V Today M25.569 - Pain in unspecified knee XR knee RT 1V Today M25.569 - Pain in unspecified knee Coding Level of Care Code Global (77336) Diagnoses Status post left knee replacement Z96.652 Aseptic loosening of prosthetic knee T84.038A; Z96.659
[2024-03-19 09:12] VITALS: BMI 45.9
== END 2024-03-19 09:33 | disposition home or self-care (01) ==
PROVIDERS: PCP Family Medicine; Visit Provider Physician Assistant
DX: Z96.652 Presence of left artificial knee joint (principal); T84.038A Mechanical loosening of other internal prosthetic joint, initial encounter
CPT/HCPCS: 99024

== ENCOUNTER 2024-03-19 09:42 | Outpatient (REF) | payer OTHER, SELFPAY ==
--- NOTE | ~2024-03-19 | XR_ITS ---
CLINICAL HISTORY: M25.569 - Pain in unspecified knee Exam: AP, lateral, and sunrise views of the left knee. Comparison: July 01, 2023. Findings: Left total knee arthroplasty is again identified. Position and alignment of the prosthesis is appropriate. No fracture or abnormal lucency is seen adjacent to the surgical hardware. Interval development of a [id number] knee joint effusion, especially within the suprapatellar recess. Unchanged calcification along the medial aspect of the knee. Comparison radiographs of the right knee demonstrated a right total knee arthroplasty. Impression: Intact left knee arthroplasty. However, there has been interval development of a [id number]-[id number] sized knee joint effusion which raises the possibility of prosthetic loosening, infection, or traumatic effusion. This document has been electronically signed by: Mayito Blackmon MD on 03/20/2024 08:15:12
== END 2024-03-19 09:43 | disposition home or self-care (01) ==
LOC: HO.HOSX 09:42
PROVIDERS: Visit Provider Physician Assistant
DX: T84.038A Mechanical loosening of other internal prosthetic joint, initial encounter (principal); M25.462 Effusion, left knee; M25.562 Pain in left knee
CPT/HCPCS: 73562; 99212

== ENCOUNTER 2024-03-24 10:31 | Day surgery (SDC) | payer OTHER, SELFPAY ==
[2024-02-25 12:17] VITALS: BP 128/78; PULSE 80; RESP 18; O2SAT 96; BMI 47.7
--- NOTE | 2024-02-25 12:44 | HO.ANESPROP2 ---
Documented by User: Carol Mandujano NP 03/20/24 14:28 HPI - Anesthesia Eval Consult details Narrative: 68yo F for Left ?Knee Total Revision, 03/24/23 BMI 47. Discussed related risks. Left knee original TKA 2013, revised x 2 since last time 2016 Pulmo optimized. Follows [facility] pulmo for asthma. Recent sleep study = sleep study reviewed, nocturnal hypoxemia without obstructive sleep apnea Cardiac optimized. mild cardiomyopathy without congestive heart failure with well controlled blood pressure and no evidence of coronary artery disease by coronary CTA. She is currently optimized to undergo the surgery with low to intermediate risk for perioperative cardiovascular morbidity mortality. Her main issue could be airway related given her significant weight. No recent illness No CP/SOB with very limited activity r/t pain DM: FBS ~120 Asthma: rescue inhaler ~ 1 x weekly Anesthesia Pre-Procedure Meds Is the patient on any of the following meds?: GLP1/DPP4 PMFSH Active Problems Active Problems: All Active Problems Preop pulmonary/respiratory exam (Acute) Nocturnal hypoxia (Acute) Asthma (Acute) Osteoarthritis of right knee (Acute) Status post left knee replacement (Acute) Nephrolithiasis (Acute) Contusion of left knee (Acute) Cardiomyopathy (Acute) De Quervain's tenosynovitis, right (Acute) Interstitial cystitis (Acute) HTN (hypertension) (Acute) Bilateral nephrolithiasis (Acute) Retention of urine (Acute) Acid reflux (Acute) Past Medical History Medical History Arthritis Hypothyroidism Renal calculi Environmental and seasonal allergies Nocturnal hypoxia Abnormal nuclear stress test Diabetes HTN (hypertension) Cardiomyopathy Bilateral nephrolithiasis Retention of urine Acid reflux Family History Family History Brother Breast cancer Surgical History Surgical History History of total left knee replacement (TKR) Hx of lithotripsy (2018) History of total right knee replacement (2011) Hx of repair of right rotator cuff (2013) History of cystoscopy Hx of tubal ligation History of hand surgery Social History Social History Household Members: Family Household Members Other:: lives w/her grandson Housing: Apartment Are you a primary intensive care specialist to a significant other at home: Yes (grandson 17 yrs) Do you presently have visiting nurse 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 If so, by whom?: No Zoroastrianism Healthcare Practices: Zoroastrian Are you DNR?: No Advance Directives: No Advance Directives Information Provided: Yes Advance Directives on File: No Recently lost weight without trying: No Nutrition Risks: No Nutritional Risk Poor oral hygiene: No Current occupational status: disabled Current occupation: rt handed Gender identity: Female Meds Allergies Allergy/AdvReac Type Severity Reaction Status Date / Time Iodinated Contrast Media Allergy Severe itching, Verified 03/19/24 09:13 [IV CONTRAST] hives morphine [Morphine] Allergy Intermediate ITCHING, Verified 03/19/24 09:13 rash tramadol [Ultram] Allergy Intermediate rash, Verified 03/19/24 09:13 itching Home Medications ?Medication ?Instructions ?Recorded ?Confirmed ?Last Taken ?Type acetaminophen 650 mg 650 mg PO Q8H PRN Pain 11/25/20 02/25/24 03/23/24 History tablet,extended release albuterol sulfate 90 mcg/actuation 2 puff PO Q6H PRN Pain 11/25/20 02/25/24 03/23/24 History aerosol inhaler (ProAir HFA) aripiprazole 10 mg tablet 10 mg PO QAM 11/25/20 02/25/24 03/23/24 History aspirin 81 mg tablet,delayed 81 mg PO QAM 11/25/20 02/25/24 03/16/24 History release atorvastatin 20 mg tablet 20 mg PO BEDTIME 11/25/20 02/25/24 03/23/24 History blood sugar diagnostic (FreeStyle #10 ea 11/25/20 02/24/24 Unknown History Lite Strips) cholecalciferol (vitamin D3) 50 50 mcg PO QPM 11/25/20 02/25/24 03/22/24 History mcg (2,000 unit) tablet docusate sodium 100 mg capsule 100 mg PO DAILY PRN Constipation 11/25/20 02/25/24 03/16/24 History fluticasone propionate 220 1 puff PO BID 11/25/20 02/25/24 03/23/24 History mcg/actuation HFA aerosol inhaler (Flovent HFA) fluticasone propionate 50 1 spray intranasal BID 11/25/20 02/25/24 03/23/24 History mcg/actuation nasal spray,suspension latanoprost 0.005 % eye drops 1 drp ophthalmic (eye) BEDTIME 11/25/20 02/25/24 03/23/24 History loratadine 10 mg tablet 10 mg PO QAM 11/25/20 02/25/24 03/23/24 History lorazepam 1 mg tablet 1 mg PO BID PRN anxiety 11/25/20 02/25/24 03/23/24 History metformin 500 mg tablet 500 mg PO DAILY 11/25/20 02/25/24 03/21/24 History multivitamin-ferrous 1 tab PO QAM 11/25/20 02/25/24 03/21/24 History fumarate-folic acid 18 mg-400 mcg tablet (Tab-A-Rito Multivitamin w-iron) oxycodone 5 mg tablet 7.5 mg PO Q6H PRN severe pain 11/25/20 02/25/24 03/21/24 History venlafaxine 150 mg 150 mg PO QAM 11/25/20 02/25/24 03/23/24 History capsule,extended release 24 hr venlafaxine 75 mg capsule,extended 75 mg PO QAM 11/25/20 02/25/24 03/23/24 History release 24 hr zolpidem 10 mg tablet 10 mg PO BEDTIME 11/25/20 02/25/24 03/23/24 History lancets 33 gauge (TRUEplus Lancets) #100 ea 04/14/21 02/24/24 Unknown History dulaglutide 0.75 mg/0.5 mL 0.75 mg subcut .QMONDAY 06/19/22 02/25/24 03/16/24 History subcutaneous pen injector (Trulicity) isosorbide mononitrate 30 mg 30 mg PO DAILY 01/11/23 02/25/24 03/23/24 History tablet,extended release 24 hr levothyroxine 112 mcg tablet 112 mcg PO DAILY 01/11/23 02/25/24 03/24/24 History gabapentin 600 mg tablet 600 mg PO BID 02/25/24 02/25/24 03/23/24 History mirtazapine 15 mg tablet 15 mg PO DAILY 02/25/24 02/25/24 03/21/24 History prazosin 2 mg capsule 4 mg PO BEDTIME 02/25/24 02/25/24 03/23/24 History semaglutide 2 mg/dose (8 mg/3 mL) mg subcut 02/25/24 03/16/24 History subcutaneous pen injector (Ozempic) Exam Height,Weight and Vital Signs: Height 5 ft 2 in Weight 118.388 kg Last Vital Signs Pulse 80 02/25/24 12:17 Resp 18 02/25/24 12:17 BP 128/78 02/25/24 12:17 Pulse Ox 96 02/25/24 12:17 O2 Del Method Room Air 02/25/24 12:17 Pertinent Lab Results Pertinent Lab Results: Lab Results 02/25/24 02/25/24 03/19/24 Range/Units 12:30 13:29 10:15 WBC 11.1 H (4.8-10.8) X10*3/uL RBC 3.98 L (4.20-5.50) X10*6/uL Hgb 11.1 L (12.0-16.0) g/dl Hct 35.2 L (37.0-47.0) % MCV 88.4 (80.0-98.0) fL MCH 27.9 (27.0-33.0) pg MCHC 31.5 (31.0-35.0) g/dl RDW 14.2 (11.0-16.0) % Plt Count 287 (160-400) X10*3/uL MPV 9.6 (9.4-12.3) fL Absolute Nucleated RBC 0.000 (0.0-0.012) X10*3/uL Nucleated RBC % (auto) 0.0 (0.0-0.2) /100WBC Sodium 139 (135-145) mmol/L Potassium 4.6 (3.3-5.1) mmol/L Chloride 106 (96-108) mmol/L Carbon Dioxide 26 (22-29) mmol/L Anion Gap 12 (12-20) BUN 16 (9-16) mg/dL Creatinine 0.97 (0.5-1.4) mg/dL Estim Creat Clear Calc 67.8 Estimated GFR 57 Random Glucose 119 H (60-115) mg/dL Estimat Average Glucose 160 mg/dL Hemoglobin A1c % 7.2 H (<6.0) % Calcium 9.2 D (8.4-10.2) mg/dL Nasal Screen MRSA (PCR) NEGATIVE (Negative) Nasal S. aureus Screen POSITIVE A (Negative) Nasal MRSA/S.aureus Interp SEE NOTE Blood Type O Positive Antibody Screen NEGATIVE Narrative Narrative: EKG 01/2024 Details: EKG shows normal sinus rhythm with low-voltage QRS ECHO 2023 Conclusions: - The left ventricular systolic function is mildly decreased. The calculated ejection fraction is 47% by biplane method. - No obvious valvular pathology seen on this study. NM cardiolite stress test 2021 Impression: 1. Myocardial perfusion imaging study shows possible ischemia in the basal to mid septum. There is some improvement with CT attenuation correction which indicates artifact, but there is also reduced contractility on gating. Correlate clinically. 2. Gated LVEF is 58% during stress and 51% during rest. 3. Transient ischemic dilatation not present. Airway Mallampati Class: III (small mouth opening) TM Dist: >3cm Neck ROM: Full Heart: RRR Lungs: CTAB Assessment and Plan Assessment Anesthesia Assessment: Anesthesia Plan Discussed and PAT Visit Documented by User: Mihaela Stinson MD 03/24/24 11:22 [facility] Past Medical History Medical History Arthritis Hypothyroidism Renal calculi Environmental and seasonal allergies Nocturnal hypoxia Abnormal nuclear stress test Diabetes HTN (hypertension) Cardiomyopathy Bilateral nephrolithiasis Retention of urine Acid reflux Family History Family History Brother Breast cancer Family history of problems with anesthesia: No Surgical History Surgical History History of total left knee replacement (TKR) Hx of lithotripsy (2018) History of total right knee replacement (2012) Hx of repair of right rotator cuff (2013) History of cystoscopy Hx of tubal ligation History of hand surgery History of Problems with Anesthesia: No Social History Social History Household Members: Family Household Members Other:: lives w/her grandson Housing: Apartment Are you a primary intensive care specialist to a significant other at home: Yes (grandson 17 yrs) Do you presently have visiting nurse 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 If so, by whom?: No Zoroastrianism Healthcare Practices: Zoroastrian Are you DNR?: No Advance Directives: No Advance Directives Information Provided: Yes Advance Directives on File: No Recently lost weight without trying: No Nutrition Risks: No Nutritional Risk Poor oral hygiene: No Current occupational status: disabled Current occupation: rt handed Gender identity: Female Meds Allergies Allergy/AdvReac Type Severity Reaction Status Date / Time Iodinated Contrast Media Allergy Severe itching, Verified 03/19/24 09:13 [IV CONTRAST] hives morphine [Morphine] Allergy Intermediate ITCHING, Verified 03/19/24 09:13 rash tramadol [Ultram] Allergy Intermediate rash, Verified 03/19/24 09:13 itching Home Medications ?Medication ?Instructions ?Recorded ?Confirmed ?Last Taken ?Type acetaminophen 650 mg 650 mg PO Q8H PRN Pain 11/25/20 02/25/24 03/23/24 History tablet,extended release albuterol sulfate 90 mcg/actuation 2 puff PO Q6H PRN Pain 11/25/20 02/25/24 03/23/24 History aerosol inhaler (ProAir HFA) aripiprazole 10 mg tablet 10 mg PO QAM 10/03/1702/25/24 03/23/24 History aspirin 81 mg tablet,delayed 81 mg PO QAM 11/25/20 02/25/24 03/16/24 History release atorvastatin 20 mg tablet 20 mg PO BEDTIME 11/25/20 02/25/24 03/23/24 History blood sugar diagnostic (FreeStyle #10 ea 11/25/20 02/24/24 Unknown History Lite Strips) cholecalciferol (vitamin D3) 50 50 mcg PO QPM 11/25/20 02/25/24 03/22/24 History mcg (2,000 unit) tablet docusate sodium 100 mg capsule 100 mg PO DAILY PRN Constipation 11/25/20 02/25/24 03/16/24 History fluticasone propionate 220 1 puff PO BID 11/25/20 02/25/24 03/23/24 History mcg/actuation HFA aerosol inhaler (Flovent HFA) fluticasone propionate 50 1 spray intranasal BID 11/25/20 02/25/24 03/23/24 History mcg/actuation nasal spray,suspension latanoprost 0.005 % eye drops 1 drp ophthalmic (eye) BEDTIME 11/25/20 02/25/24 03/23/24 History loratadine 10 mg tablet 10 mg PO QAM 11/25/20 02/25/24 03/23/24 History lorazepam 1 mg tablet 1 mg PO BID PRN anxiety 11/25/20 02/25/24 03/23/24 History metformin 500 mg tablet 500 mg PO DAILY 11/25/20 02/25/24 03/21/24 History multivitamin-ferrous 1 tab PO QAM 11/25/20 02/25/24 03/21/24 History fumarate-folic acid 18 mg-400 mcg tablet (Tab-A-Rito Multivitamin w-iron) oxycodone 5 mg tablet 7.5 mg PO Q6H PRN severe pain 11/25/20 02/25/24 03/21/24 History venlafaxine 150 mg 150 mg PO QAM 11/25/20 02/25/24 03/23/24 History capsule,extended release 24 hr venlafaxine 75 mg capsule,extended 75 mg PO QAM 11/25/20 02/25/24 03/23/24 History release 24 hr zolpidem 10 mg tablet 10 mg PO BEDTIME 11/25/20 02/25/24 03/23/24 History lancets 33 gauge (TRUEplus Lancets) #100 ea 04/14/21 02/24/24 Unknown History dulaglutide 0.75 mg/0.5 mL 0.75 mg subcut .QMONDAY 06/19/22 02/25/24 03/16/24 History subcutaneous pen injector (Trulicity) isosorbide mononitrate 30 mg 30 mg PO DAILY 01/11/23 02/25/24 03/23/24 History tablet,extended release 24 hr levothyroxine 112 mcg tablet 112 mcg PO DAILY 01/11/23 02/25/24 03/24/24 History gabapentin 600 mg tablet 600 mg PO BID 02/25/24 02/25/24 03/23/24 History mirtazapine 15 mg tablet 15 mg PO DAILY 02/25/24 02/25/24 03/21/24 History prazosin 2 mg capsule 4 mg PO BEDTIME 02/25/24 02/25/24 03/23/24 History semaglutide 2 mg/dose (8 mg/3 mL) mg subcut 02/25/24 03/16/24 History subcutaneous pen injector (Ozempic) Assessment and Plan Final Anesthetic Review Family History of Problems with Anesthesia: No History of Problems with Anesthesia: No NPO: Yes ASA Class: III Final Preanesthetic Review: No Changes in Pt Med Stat, Meds/Allgs Chart Reviewed and Consent Obtained/Reviewed Patient Risk: Intermediate Procedure Risk: Intermediate Anesthetic Plan Anesthetic Plan: Spinal and Regional Block Disposition: Standard PACU
[2024-02-25 13:47] LABS: Hematocrit 35.2 % (37.0-47.0); Hemoglobin 11.1 g/dl (12.0-16.0); Mean Corpuscular HGB Conc 31.5 g/dl (31.0-35.0); Mean Corpuscular Hemoglobin 27.9 pg (27.0-33.0); Mean Corpuscular Volume 88.4 fL (80.0-98.0); Mean Platelet Volume 9.6 fL (9.4-12.3); Platelet Count 287 X10*3/uL (160-400); Red Blood Count 3.98 X10*6/uL (4.20-5.50); Red Cell Distribution Width 14.2 % (11.0-16.0); White Blood Count 11.1 X10*3/uL (4.8-10.8)
[2024-02-25 13:57] LABS: Estimated Average Glucose 160 mg/dL; Hemoglobin A1C 154.7361 umol/L; Hemoglobin A1c % 7.2 % (<6.0); Total Hemoglobin (HGBA1C) 2829.4894 umol/L
[2024-02-25 14:04] LABS: Anion Gap 12 (12-20); Blood Urea Nitrogen 16 mg/dL (9-16); Calcium 9.2 mg/dL (8.4-10.2); Carbon Dioxide 26 mmol/L (22-29); Chloride 106 mmol/L (96-108); Creatinine Clr Calc Pharmacy 67.8; Estimated Glomerular Filt Rate 57; Glucose Random 119 mg/dL (60-115); Potassium 4.6 mmol/L (3.3-5.1); Sodium 139 mmol/L (135-145)
[2024-02-25 16:06] LABS: MRSA Nasal PCR NEGATIVE (Negative); SA Nasal PCR POSITIVE (Negative)
[2024-03-24] VITALS (15 sets, daily range): BP systolic 135–159; BP diastolic 63–98; PULSE 99–112; RESP 12–20; TEMP 36.6–36.9; O2SAT 94–97; BMI 46.3
--- NOTE | ~2024-03-24 | XR_ITS ---
CLINICAL HISTORY: lt tka 2 view left knee Comparison: DX - XR KNEE LT 3V - 03/19/24 09:00 EST DX/SR - XR KNEE RT 3V - 07/01/23 10:50 EDT DX/SR - XR KNEE LT 3V - 07/01/23 10:50 EDT Findings: Knee arthroplasty revision has been performed. Bones intact. No dislocations. No significant loss of joint space, osteophytes, or erosions. No joint effusion. No radiopaque foreign body. IMPRESSION: 1. Expected appearance of knee arthroplasty revision. This document has been electronically signed by: Adrian Retana MD on 03/24/2024 18:30:49
[2024-03-24 11:00] LABS: Glucose, Whole Blood 210 mg/dL (60-115)
[2024-03-24 11:12] LABS: Hematocrit 38.6 % (37.0-47.0); Hemoglobin 12.6 g/dl (12.0-16.0)
[2024-03-24] MEDS: Lactated Ringers 1,000 ML 100 ML IVCONT ×2 (11:14→19:51)
--- NOTE | 2024-03-24 12:24 | MHC.SHP ---
Pre-Procedural Eval Section A - 24 Hr Update-Section A only Date of Service: 03/24/24 The patient is an INPATIENT: No Changes since office visit: No Cold of Flu in the past 2 weeks, No New Medical Problems, No Changes in Medication and No Patient answered all questions The patient has been examined within 24 hours of the surgical procedure. The History & Physical has been completed within 30 days and I have reviewed it.: Yes Section B - Complete if H&P > 30 days Chief Complaint: Revision Lt TKA Allergies: Allergies Allergy/AdvReac Type Severity Reaction Status Date / Time Iodinated Contrast Media Allergy Severe itching, Verified 03/19/24 09:13 [IV CONTRAST] hives morphine [Morphine] Allergy Intermediate ITCHING, Verified 03/19/24 09:13 rash tramadol [Ultram] Allergy Intermediate rash, Verified 03/19/24 09:13 itching Plan I have reviewed the history and physical and performed a pertinent physical examination on my patient. No changes have occurred unless specified. Time Spent With Patient Time: Total time managing care of this patient today ____ minutes.
--- NOTE | 2024-03-24 17:21 | PM.OP ---
Brief Operative Note Date of Service: 03/24/24 Pre-op diagnosis: left knee prosthetic loosening Post-op diagnosis: same Procedure: Revision left TKA Implants: [place] [employer] 3 TS cemented femur [id number] stem with 10 mm posterior and anterior augments; small tibial cone with 3 universal baseplate and 10 mm medial and lateral sugments woth 109 TS inset Surgeon: Antonino Oro MD Anesthesia: GETA, regional and local Was an Mobile Marketing Manager used for this Procedure?: Yes Mobile Marketing Manager: Khushi Mathias Estimated blood loss (mL): 300 Tourniquet time (min): 135 IV fluids (mL): 1,500 Pathology: none sent Condition: stable Disposition: PACU
[2024-03-24 17:50] LABS: Glucose, Whole Blood 226 mg/dL (60-115)
[2024-03-24] MEDS: fentaNYL citrate/PF 100 MCG/2 ML VIAL 25 MCG IVPUSH ×4 (18:00→18:15)
[2024-03-24] MEDS: oxyCODONE HCl Immed Release 5 MG TABLET PO (18:48)
[2024-03-24] MEDS: ceFAZolin Sodium/Dextrose,Iso 2 GM/50 ML PIGGYBACK IV (19:54)
[2024-03-24 20:12] LABS: Glucose, Whole Blood 204 mg/dL (60-115)
[2024-03-24] MEDS: oxyCODONE HCl ER 10 MG TAB.ER.12H PO (20:15)
[2024-03-24] MEDS: Docusate Sodium 100 MG CAPSULE PO (20:16)
[2024-03-24] MEDS: Celecoxib 200 MG CAPSULE PO (20:16)
--- NOTE | 2024-03-24 20:54 | PHA.MEDREC ---
Pharmacy Consult ? Medication Reconciliation Pharmacy has reviewed the medication reconciliation done by nursing staff and also went to talk to patient. Patient was adamant that she uses both trulicity and ozempic on mondays, she takes mirtazapine in the morning, she uses advair as needed and she injects tresiba 32 units in the afternoon (last dose was on 03/23/24). She takes both venlafaxine 150 mg and 75 mg and she only uses colace 100 mg daily prn. She took the morning meds on 03/24/24.
--- NOTE | 2024-03-24 21:49 | HO.PM.IMCN ---
History of Present Illness Data of Consult Service Date: 03/24/24 Requesting physician: Khushi Mathias Primary Care Provider: DO YASMIN Hernandez Reason for consult: medical management Patient is a 68-year-old female with a past medical history significant for hypothyroid, glaucoma, type 2 diabetes on insulin, mild intermittent asthma, HTN, GERD, HLD, mild cardiomyopathy and kidney stones, now status post left TKA, consulted for medical management. She has no concerns currently including chest pain, shortness breath, headache, dizziness, abdominal pain. She reports she has not yet urinated. Pain is well managed at this time. Review of Systems Constitutional: Constitutional: Denies body ache(s), Denies chills, Denies fatigue, Denies fever(s) and Denies headache(s) Eyes: Eyes: Denies change in vision ENT: Denies dizziness, Denies headache(s), Denies nasal congestion, Denies nasal discharge and Denies sore throat Cardiovascular: Cardiovascular: Denies chest pain, Denies rapid heart rate, Denies leg edema, Denies lightheadedness and Denies dyspnea Respiratory: Respiratory: Denies chest congestion, Denies cough, Denies dyspnea and Denies wheezing Gastrointestinal: Gastrointestinal: Denies diarrhea, Denies nausea and Denies vomiting Genitourinary: Genitourinary: Denies dysuria and Denies urinary urgency Musculoskeletal: Musculoskeletal: Denies myalgias Integumentary/Breasts: Skin/Breast: Denies rash Neurologic: Denies confusion, Denies dizziness and Denies headache(s) Psychiatric: Psychiatric: Denies confusion Endocrine: Endocrine: Denies fatigue Hematologic/Lymphatic: Hematologic/Lymphatic: Denies easy bleeding and Denies easy bruising Allergic/Immunologic: Allergic/Immunologic: Denies wheezing PMFSH Medical History Arthritis Hypothyroidism Renal calculi Environmental and seasonal allergies Nocturnal hypoxia Abnormal nuclear stress test Diabetes HTN (hypertension) Cardiomyopathy Bilateral nephrolithiasis Retention of urine Acid reflux Family History Brother Breast cancer Surgical History History of total left knee replacement (TKR) Hx of lithotripsy (2019) History of total right knee replacement (2012) Hx of repair of right rotator cuff (2014) History of cystoscopy Hx of tubal ligation History of hand surgery Social History Household Members: Family Household Members Other:: lives w/her grandson Housing: Apartment Are you a primary chronic care nurse to a significant other at home: Yes (grandson 17 yrs) Do you presently have visiting nurse or other home services: 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) 75 years or older and lives alone: No Alcohol intake: current Alcohol intake frequency: holidays/special occasions only Comment: medicated Patient Tobacco Use Status: Never used Tobacco Current occupational status: disabled Current occupation: rt handed Gender identity: Female Narrative: No smoking, social alcohol, no drug use Meds Allergies Allergy/AdvReac Type Severity Reaction Status Date / Time Iodinated Contrast Media Allergy Severe itching, Verified 03/19/24 09:13 [IV CONTRAST] hives morphine [Morphine] Allergy Intermediate ITCHING, Verified 03/19/24 09:13 rash tramadol [Ultram] Allergy Intermediate rash, Verified 03/19/24 09:13 itching Active Medications: Current Medications Acetaminophen (Acetaminophen 325 Mg Tablet) 650 mg PO Q6H PRN PRN Reason: Pain, Mild 1-3,fever,headache Aripiprazole (Aripiprazole 10 Mg Tablet) 10 mg PO DAILY [facility] Celecoxib (Celecoxib 200 Mg Capsule) 200 mg PO BID [facility] Last Admin: 03/24/24 20:16 Dose: 200 mg Dextrose (Dextrose 50 % 25 Gm/50 Ml Syringe) 25 gm IVPUSH Q15M PRN; Protocol PRN Reason: per Hypoglycemia Standing Ord. Docusate Sodium (Docusate Sodium 100 Mg Capsule) 100 mg PO BID [facility] Last Admin: 03/24/24 20:16 Dose: 100 mg Enoxaparin Sodium (Enoxaparin Sodium 40 Mg/0.4 Ml Syringe) 40 mg SUBCUT Q24H [facility] Fentanyl (Fentanyl Citrate/Pf 100 Mcg/2 Ml Vial) 25 mcg IVPUSH Q5M PRN PRN Reason: Pain, Moderate to Severe (Pain Scale 4-10) Stop: 03/24/24 23:48 Last Admin: 03/24/24 18:15 Dose: 25 mcg Fluticasone Propionate (Fluticasone Propionate Nasal 16 Gm [place]) 1 spray NOSTRIL-B BID [facility] Gabapentin (Gabapentin 600 Mg Tablet) 600 mg PO BID [facility] Glucose (Glucose Gel 15 Gm Gel..Gram.) 15 gm PO Q15M PRN; Protocol PRN Reason: per Hypoglycemia Standing Ord. Hydromorphone HCl (Hydromorphone Hcl 0.5 Mg/0.5 Ml Syringe) 0.25 mg IVPUSH Q4H PRN; Protocol PRN Reason: Pain, Severe (Pain Scale 7-10) Lactated Ringer's (Lr) 1,000 mls @ 100 mls/hr IVCONT .Q10H [facility] Stop: 03/25/24 08:00 Last Admin: 03/24/24 19:51 Dose: 100 mls/hr Insulin Glargine (Insulin Glargine,Hum.Rec.Anlog 100 Unit/Ml 10 Ml Vial) 16 unit SUBCUT BEDTIME [facility] Insulin Human Lispro (Insulin Lispro 100 Unit/Ml 3 Ml Vial) 0 unit SUBCUT QIDACHS [facility]; Protocol Isosorbide Mononitrate (Isosorbide Mononitrate 30 Mg Tab.Er.24h) 30 mg PO DAILY [facility]; Protocol Latanoprost (Latanoprost 0.005 % Ophth Antoinette 2.5 Ml Drops) 1 drop EYE-BOTH BEDTIME [facility] Levothyroxine Sodium (Levothyroxine Sodium 112 Mcg Tablet) 112 mcg PO DAILY@0600 [facility] Loratadine (Loratadine 10 Mg Tablet) 10 mg PO DAILY [facility] Lorazepam (Lorazepam 1 Mg Tablet) 1 mg PO BID PRN PRN Reason: anxiety Metoprolol Succinate (Metoprolol Succinate Er 25 Mg Tab.Er.24h) 25 mg PO DAILY [facility]; Protocol Mirtazapine (Mirtazapine 15 Mg Tablet) 15 mg PO DAILY [facility] Naloxone HCl (Naloxone Hcl 0.4 Mg/Ml Vial) 0.04 mg IVPUSH Q5M PRN PRN Reason: Excessive sedation or RR < 8 Non-Formulary Medication (Fluticasone Propion-Salmeterol [Advair Hfa]) 2 puff INHALE BID PRN PRN Reason: Shortness Of Breath Or Wheezing Omeprazole (Omeprazole 20 Mg Capsule.Dr) 20 mg PO DAILY@0630 [facility] Ondansetron HCl (Ondansetron Hcl 4 Mg/2 Ml Vial) 4 mg IVPUSH Q8H PRN PRN Reason: Nausea and Vomiting Oxycodone HCl (Oxycodone Hcl Immed Release 5 Mg Tablet) 5 mg PO Q4H PRN PRN Reason: Pain, Moderate(Pain Scale 4-6) Last Admin: 03/24/24 18:48 Dose: 5 mg Oxycodone HCl (Oxycodone Hcl Er 10 Mg Tab.Er.12h) 10 mg PO BID [facility] Last Admin: 03/24/24 20:15 Dose: 10 mg Prazosin HCl (Prazosin Hcl 1 Mg Capsule) 4 mg PO BEDTIME [facility]; Protocol Sodium Chloride (0.9 % Sodium Chloride Flush 3 Ml Syringe) 3 ml IVFLUSH QSHIFT [facility] Venlafaxine HCl (Venlafaxine Hcl Er 75 Mg Cap.Er.24h) 75 mg PO DAILY [facility] Venlafaxine HCl (Venlafaxine Hcl Er 150 Mg Cap.Er.24h) 150 mg PO DAILY [facility] Zolpidem Tartrate (Zolpidem Tartrate 5 Mg Tablet) 10 mg PO BEDTIME [facility] Home Medications ?Medication ?Instructions ?Recorded ?Confirmed ?Last Taken ?Type acetaminophen 650 mg 650 mg PO Q8H PRN Pain 11/25/20 02/25/24 03/23/24 History tablet,extended release albuterol sulfate 90 mcg/actuation 2 puff PO Q6H PRN Pain 11/25/20 02/25/24 03/23/24 History aerosol inhaler (ProAir HFA) aripiprazole 10 mg tablet 10 mg PO QAM 11/25/20 02/25/24 03/24/24 History aspirin 81 mg tablet,delayed 81 mg PO QAM 11/25/20 02/25/24 03/16/24 History release atorvastatin 20 mg tablet 20 mg PO BEDTIME 11/25/20 02/25/24 03/23/24 History blood sugar diagnostic (FreeStyle #10 ea 11/25/20 02/24/24 Unknown History Lite Strips) cholecalciferol (vitamin D3) 50 50 mcg PO QPM 11/25/20 02/25/24 03/22/24 History mcg (2,000 unit) tablet docusate sodium 100 mg capsule 100 mg PO DAILY PRN Constipation 11/25/20 02/25/24 03/16/24 History fluticasone propionate 50 1 spray intranasal BID 11/25/20 02/25/24 03/23/24 History mcg/actuation nasal spray,suspension latanoprost 0.005 % eye drops 1 drp ophthalmic (eye) BEDTIME 11/25/20 02/25/24 03/23/24 History loratadine 10 mg tablet 10 mg PO QAM 11/25/20 02/25/24 03/23/24 History lorazepam 1 mg tablet 1 mg PO BID PRN anxiety 11/25/20 02/25/24 03/23/24 History metformin 500 mg tablet 500 mg PO BID 11/25/20 03/24/24 03/24/24 History multivitamin-ferrous 1 tab PO QAM 11/25/20 02/25/24 03/21/24 History fumarate-folic acid 18 mg-400 mcg tablet (Tab-A-Rito Multivitamin w-iron) oxycodone 5 mg tablet 7.5 mg PO Q6H PRN severe pain 11/25/20 02/25/24 03/21/24 History venlafaxine 150 mg 150 mg PO QAM 11/25/20 02/25/24 03/24/24 History capsule,extended release 24 hr venlafaxine 75 mg capsule,extended 75 mg PO QAM 11/25/20 02/25/24 03/24/24 History release 24 hr zolpidem 10 mg tablet 10 mg PO BEDTIME 11/25/20 02/25/24 03/23/24 History lancets 33 gauge (TRUEplus Lancets) #100 ea 04/14/21 02/24/24 Unknown History dulaglutide 0.75 mg/0.5 mL 0.75 mg subcut .QMONDAY 06/19/22 02/25/24 03/16/24 History subcutaneous pen injector (Trulicity) isosorbide mononitrate 30 mg 30 mg PO DAILY 01/11/23 02/25/24 03/24/24 History tablet,extended release 24 hr levothyroxine 112 mcg tablet 112 mcg PO DAILY 01/11/23 02/25/24 03/24/24 History gabapentin 600 mg tablet 600 mg PO BID 02/25/24 02/25/24 03/24/24 History mirtazapine 15 mg tablet 15 mg PO DAILY 12/02/25/24 03/21/24 History prazosin 2 mg capsule 4 mg PO BEDTIME 02/25/24 02/25/24 03/23/24 History semaglutide 2 mg/dose (8 mg/3 mL) 2 mg subcut MO 02/25/24 03/24/24 03/16/24 History subcutaneous pen injector (Ozempic) fluticasone propionate 115 2 puff inhalation BID PRN 03/24/24 03/24/24 Unknown History mcg-salmeterol 21 mcg/actuation Shortness Of Breath Or Wheezing HFA inhaler (Advair HFA) insulin degludec 100 unit/mL (3 32 unit subcut DAILY 03/24/24 03/24/24 03/23/24 History mL) subcutaneous pen (Tresiba FlexTouch U-100 insulin) Physical Exam Vital Signs and Narrative: Vital Signs: Last Vital Signs Temp 97.9 F 03/24/24 20:14 Pulse 99 03/24/24 20:14 Resp 18 03/24/24 20:14 BP 135/93 H 03/24/24 20:14 Pulse Ox 97 03/24/24 20:14 O2 Del Method Nasal Cannula 03/24/24 20:14 O2 Flow Rate 2 03/24/24 20:14 FiO2 51 03/24/24 18:30 BMI result Body Mass Index 47.7 General: AOx3, no acute distress Resp: CTA bilaterally CVS: S1, S2, RRR GI: +BS, NT, no distention Skin: Warm, dry Neuro: Cranial nerves II-XII grossly intact bilaterally. Motor grossly intact bilaterally Extremities: No LE edema. Capillary refill intact left lower extremity, sensation and motor intact. Psych: Appropriate affect Const: General: No confusion Orientation/consciousness: No confusion Neuro: General: No confusion Results Labs 03/24/24 10:53 02/25/24 13:29 Labs: Laboratory Results - last 24 hr 03/24/24 03/24/24 03/24/24 10:56 17:46 20:09 POC Glucose 210 H 226 H 204 H Assessment and Plan (1) Status post total left knee replacement: Status: Acute Plan Patient is a 68-year-old female with a past medical history significant for hypothyroid, glaucoma, type 2 diabetes on insulin, mild intermittent asthma, HTN, GERD, HLD, mild cardiomyopathy and kidney stones, now status post left TKA, consulted for medical management. s/p L TKA - POD 0 - plan per lalito - pain well managed at this time Hypothyroid - continue levothyroxine Glaucoma - continue eye drops Type 2 diabetes - diabetic diet - sliding scale insulin - Lantus 16 units q.h.s., usually takes Tresiba 32 units nightly, converted to 22 units of Lantus but reduced dose given due to hospital stay, resume regular dose after discharge Mild intermittent asthma - no acute exacerbation - continue home inhalers HTN -continue metoprolol, prazosin GERD - continue omeprazole Thank you for allowing me to participate in the pt's care. Signing off for now. Please contact the medical team if any questions or concerns.
[2024-03-24] MEDS: Zolpidem Tartrate 5 MG TABLET 10 MG PO (22:31)
[2024-03-24] MEDS: Prazosin HCL 1 MG CAPSULE 4 MG PO (22:31)
[2024-03-24] MEDS: Insulin Lispro 100 UNIT/ML 3 ML VIAL SUBCUT (22:31)
[2024-03-24] MEDS: Insulin Glargine,Hum.rec.anlog 100 UNIT/ML 10 ML VIAL 16 UNIT SUBCUT (22:31)
[2024-03-24] MEDS: Gabapentin 600 MG TABLET PO (22:31)
[2024-03-25] VITALS (9 sets, daily range): BP systolic 114–160; BP diastolic 65–87; PULSE 91–117; RESP 18; TEMP 36.2–37.1; O2SAT 92–98
[2024-03-25] MEDS: HYDROmorphone HCl 0.5 MG/0.5 ML SYRINGE 0.25 MG IVPUSH ×5 (00:23→23:59)
--- NOTE | 2024-03-25 03:24 | PC.NURSE ---
Pt arrived from PACU at 1900 on a stretcher, post left TKA, slid to bed by staff, alert and oriented, + CMS both lower leg, pt claimed 8/10 postop pain, ice packs provided with relief, due meds given, po tolerated sequential boot placed the right leg, able to get up with assist to commode and voided,slept at intervals.
[2024-03-25] MEDS: oxyCODONE HCl Immed Release 5 MG TABLET PO ×3 (04:06→15:32)
[2024-03-25] MEDS: Omeprazole 20 MG CAPSULE.DR PO (05:29)
[2024-03-25] MEDS: Lactated Ringers 1,000 ML 100 ML IVCONT (05:29)
[2024-03-25] MEDS: Levothyroxine Sodium 112 MCG TABLET PO (05:29)
[2024-03-25 07:01] LABS: MANUAL DIFF FLAG NO
[2024-03-25 07:10] LABS: Basophils Percent Auto 0.2 % (0-2); Hematocrit 32.7 % (37.0-47.0); Hemoglobin 10.3 g/dl (12.0-16.0); Imm Gran Abs Auto 0.09 X10*3/uL (0.00-0.03); Imm Gran Pct Auto 0.6 % (0.0-0.4); Lymphocytes Absolute Auto 2.3 X10*3/uL (1.2-4.9); Lymphocytes Percent Auto 15.7 % (20-40); Mean Corpuscular HGB Conc 31.5 g/dl (31.0-35.0); Mean Corpuscular Hemoglobin 27.2 pg (27.0-33.0); Mean Corpuscular Volume 86.3 fL (80.0-98.0); Mean Platelet Volume 9.7 fL (9.4-12.3); Monocytes Absolute Auto 1.1 X10*3/uL (0.1-1.2); Monocytes Percent Auto 7.7 % (2-11); Neutrophils Absolute Auto 10.9 x10*3/uL (2.0-8.3); Neutrophils Percent Auto 75.8 % (45-73); Platelet Count 310 X10*3/uL (160-400); Red Blood Count 3.79 X10*6/uL (4.20-5.50); Red Cell Distribution Width 13.8 % (11.0-16.0); White Blood Count 14.3 X10*3/uL (4.8-10.8)
[2024-03-25 07:21] LABS: Anion Gap 14 (12-20); Blood Urea Nitrogen 15 mg/dL (9-16); Calcium 9.2 mg/dL (8.4-10.2); Carbon Dioxide 22 mmol/L (22-29); Chloride 104 mmol/L (96-108); Creatinine Clr Calc Pharmacy 73.4; Estimated Glomerular Filt Rate > 60; Glucose Fasting 193 mg/dL (60-99); Potassium 4.6 mmol/L (3.3-5.1); Sodium 135 mmol/L (135-145)
--- NOTE | 2024-03-25 07:21 | PM.PNORT ---
Subjective Subjective Date of Service: 03/25/24 Interval history: POD1 s/p left TKA revision Patient is resting in bed comfortably - block still in effect No overnight events Pain is managed No additional complaints Physical Exam Vital Signs: Vital Signs: Last Vital Signs Temp 97.1 F 03/25/24 03:09 Pulse 117 H 03/25/24 03:09 Resp 18 03/25/24 03:09 BP 132/74 03/25/24 03:09 Pulse Ox 98 03/25/24 03:09 O2 Del Method Nasal Cannula 03/25/24 03:09 O2 Flow Rate 2 03/25/24 03:09 FiO2 51 03/24/24 18:30 BMI result Body Mass Index 46.3 Const: General: cooperative, healthy appearing and no acute distress Resp: Effort & Inspection: normal respiratory effort and able to speak in complete sentences Cardio: Rate: regular rate Peripheral pulses: Peripheral pulses 2+ throughout GI: Palpation (GI): Soft to palpation Skin: Lesions: no lesions Rashes: no rashes Extrem: Other: left knee dressing is c/d/i. Able to dorsi/plantar flex. Calf is supple and nontender. Pedal pulse intact. Block still in effect. Procedures Date of Service Date of Service: 03/25/24 Progress Note: A&P Assessment and plan (1) Status post revision of total replacement of left knee: Status: Acute Plan Continue pain mgmnt Begin Lovenox for dvt ppx begin PT for revision LTKA Dispo planning-Pending PT eval, pain mgmnt, block still in effect Time Spent With Patient Time: Total time managing care of this patient today ____ minutes. Quality Stroke Does the patient have a stroke diagnosis?: No VTE Prior VTE?: No VTE Risk Level:: Medical - moderate - high VTE Device Contraindication: N/A - Device Ordered VTE Drug Contraindication: N/A - Med Ordered
[2024-03-25 07:50] LABS: Glucose, Whole Blood 188 mg/dL (60-115)
[2024-03-25] MEDS: Insulin Lispro 100 UNIT/ML 3 ML VIAL SUBCUT ×4 (07:59→21:08)
[2024-03-25] MEDS: oxyCODONE HCl ER 10 MG TAB.ER.12H PO ×2 (07:59→20:50)
[2024-03-25] MEDS: Celecoxib 200 MG CAPSULE PO ×2 (07:59→20:49)
[2024-03-25] MEDS: Docusate Sodium 100 MG CAPSULE PO (08:00)
[2024-03-25] MEDS: Isosorbide Mononitrate 30 MG TAB.ER.24H PO (08:00)
[2024-03-25] MEDS: Metoprolol Succinate ER 25 MG TAB.ER.24H PO (08:00)
[2024-03-25] MEDS: Gabapentin 600 MG TABLET PO ×2 (08:00→20:49)
[2024-03-25] MEDS: Loratadine 10 MG TABLET PO (08:00)
[2024-03-25] MEDS: ARIPiprazole 10 MG TABLET PO (08:00)
[2024-03-25] MEDS: Venlafaxine HCl ER 150 MG CAP.ER.24H PO (08:00)
[2024-03-25] MEDS: Mirtazapine 15 MG TABLET PO (08:00)
[2024-03-25] MEDS: Venlafaxine HCl ER 75 MG CAP.ER.24H PO (08:00)
[2024-03-25] MEDS: Fluticasone/Vilanterol 100/25 BLST.W.DEV 1 PUFF INHALE (08:08)
--- NOTE | 2024-03-25 08:35 | HO.POSTANES ---
Post Anesthesia Evaluation Post Anesthesia Evaluation Date of Service: 03/25/24 Vital Signs: Vital Signs Temp Pulse Resp BP Pulse Ox O2 Del Method O2 Flow Rate 03/25/24 08:08 103 H 18 03/25/24 08:02 103 H 129/78 96 03/25/24 07:49 96 Room Air 03/25/24 07:49 97.8 F 103 H 18 129/78 95 Room Air 03/25/24 03:09 97.1 F 117 H 18 132/74 98 Nasal Cannula 2 03/24/24 22:31 148/85 H Anesthesia: General Endotracheal-GETA Mental Status: Awake Pain Control: Satisfactory Nausea/Vomiting: None Hydration: Adequate Anesthesia-Related Issues: No Anes. Related Issues
--- NOTE | 2024-03-25 09:09 | MHC.CM.PN ---
IMM DELIVERED CM MET WITH PT AT BEDSIDE. PT LIVES WITH FAMILY, USES A CANE/WALKER FOR MOBILITY. PT IS ACTIVE WITH [facility] FOR DRAINAGE DESIGN COORDINATOR HRS. (17.75/WEEK) P.T. RECOMMENDS HOME WITH SERVICES. PT FIRST CHOICE [facility]. + HCP ON FILE AND VERIFIED. PCP DR. DAVID SIDDIQI AT [facility]. DP: HOME WITH NEW [facility] FOR P.T. AND RESUMPTION OF DRAINAGE DESIGN COORDINATOR HRS VIA [facility]. FAMILY WILL TRANSPORT HOME. CM WILL CONTINUE TO FOLLOW FOR ANY CHANGE TO DC PLAN/NEEDS.
[2024-03-25 11:38] LABS: Glucose, Whole Blood 209 mg/dL (60-115)
[2024-03-25] MEDS: Enoxaparin Sodium 40 MG/0.4 ML SYRINGE SUBCUT (15:32)
--- NOTE | 2024-03-25 15:37 | P.DS_ITS ---
DS: Providers Provider Date of Service: 03/26/24 Date of discharge: 03/26/24 Primary care physician: Ethel Chase DO Consults: 03/24/24 18:43 Consult to Hospitalist Routine Comment: Consulting Provider: [facility] Hospitalists Reason For Exam: DM on trulicity DS: Diagnosis Discharge Diagnosis (1) Status post revision of total replacement of left knee: Status: Acute DS: Summary Hospital Course Hospital Course: The patient underwent a successful left revision total knee arthroplasty, they were transferred to PACU and then to the floor to recover. During their stay, their vitals were stable, afebrile at 98.3. Labs were unremarkable, H/H 9.5/29.5. POD 1 they were started on Lovenox for DVT ppx, they also received Physical Therapy services twice a day. Prior to discharge, their dressing was changed, incision clean dry and intact, new Aquacel dressing applied and the plan was to be discharged home with [facility] services. Time Attestation Discharge Coordination Time (in mins): 30 Quality: Safe Use of Opioids Does Pt have an Active Cancer Diagnosis on the Problem List?: No Quality: Stroke Does the patient have a stroke diagnosis?: No Physical Exam Vital Signs: Vital Signs: Last Vital Signs Temp 98.7 F 03/25/24 15:25 Pulse 91 03/25/24 15:25 Resp 18 03/25/24 15:25 BP 114/69 03/25/24 15:25 Pulse Ox 97 03/25/24 15:25 O2 Del Method Room Air 03/25/24 15:25 O2 Flow Rate 2 03/25/24 03:09 FiO2 51 03/24/24 18:30 BMI result Body Mass Index 46.3 Const: General: cooperative, healthy appearing and no acute distress Resp: Effort & Inspection: normal respiratory effort and able to speak in complete sentences Cardio: Rate: regular rate Peripheral pulses: Peripheral pulses 2+ throughout GI: Palpation (GI): Soft to palpation Skin: Lesions: no lesions Rashes: no rashes Extrem: Other: left knee dressing is c/d/i. Able to dorsi/plantar flex. Calf is supple and nontender. Sensation intact. Pedal pulse intact. DS: Data Data Completed and Pending Labs on day of discharge: Laboratory Results - last 24 hr 03/24/24 03/24/24 03/25/24 17:46 20:09 06:15 WBC 14.3 H RBC 3.79 L Hgb 10.3 L Hct 32.7 L MCV 86.3 MCH 27.2 MCHC 31.5 RDW 13.8 Plt Count 310 MPV 9.7 Immature Gran % (Auto) 0.6 H Neut % (Auto) 75.8 H Lymph % (Auto) 15.7 L [place] % (Auto) 7.7 Eos % (Auto) 0.0 Baso % (Auto) 0.2 Lymph # (Auto) 2.3 [place] # (Auto) 1.1 Eos # (Auto) 0.0 Baso # (Auto) 0.0 Abs Immat Gran (auto) 0.09 H Absolute Neuts (auto) 10.9 H Absolute Nucleated RBC 0.000 Nucleated RBC % (auto) 0.0 Sodium 135 Potassium 4.6 Chloride 104 Carbon Dioxide 22 Anion Gap 14 BUN 15 Creatinine 0.88 Estim Creat Clear Calc 73.4 Estimated GFR > 60 POC Glucose 226 H 204 H Fasting Glucose 193 H Calcium 9.2 03/25/24 03/25/24 07:35 11:25 WBC RBC Hgb Hct MCV MCH MCHC RDW Plt Count MPV Immature Gran % (Auto) Neut % (Auto) Lymph % (Auto) [place] % (Auto) Eos % (Auto) Baso % (Auto) Lymph # (Auto) [place] # (Auto) Eos # (Auto) Baso # (Auto) Abs Immat Gran (auto) Absolute Neuts (auto) Absolute Nucleated RBC Nucleated RBC % (auto) Sodium Potassium Chloride Carbon Dioxide Anion Gap BUN Creatinine Estim Creat Clear Calc Estimated GFR POC Glucose 188 H 209 H Fasting Glucose Calcium Discharge Plan Discharge Patient Disposition: Home Health Service Referrals: Marychuy Dennison PA-C [Physician Component Engineer] - 2 Weeks (04/09/24 12:30 [facility] Orthopedic Surgeons Marychuy Dennison PA-C) Discharge Medications: New enoxaparin 40 mg/0.4 mL Syringe 40 mg subcut Q24H 42 Days Qty: 16.8 0RF celecoxib 200 mg Capsule 200 mg PO BID 30 Days Qty: 60 0RF acetaminophen 325 mg Tablet 650 mg PO Q6H PRN (Reason: Pain, Mild 1-3,Fever,Headache) 30 Days Qty: 240 0R F docusate sodium 100 mg Capsule 100 mg PO BID 30 Days Qty: 60 0RF oxycodone 5 mg Tablet 5 mg PO Q4H PRN (Reason: Pain, Moderate(Pain Scale 4-6)) 7 Days Qty: 42 0RF Rx Instructions: Partial Fill upon patient request. Continued pantoprazole 40 mg tablet,delayed release (DR/EC) 40 mg PO QAM Qty: 30 6RF metoprolol succinate 25 mg tablet extended release 24 hr 25 mg PO QAM 90 Days Qty: 90 3RF lisinopril 20 mg tablet 20 mg PO QPM Qty: 90 3RF (DME) shubham Misc See Rx Instructions .MEDSUPPLY Qty: 1 0RF Rx Instructions: Folding Front wheeled shubham DURATIO 99 DAYS gabapentin 600 mg Tablet 600 mg PO BID Ozempic 2 mg/dose (8 mg/3 mL) pen injector 2 mg subcut MO mirtazapine 15 mg Tablet 15 mg PO DAILY prazosin 2 mg Capsule 4 mg PO BEDTIME fluticasone propion-salmeterol [Advair HFA] 115-21 mcg/actuation HFA aerosol inhaler 2 puff INHALATION BID PRN (Reason: Shortness Of Breath Or Wheezing) insulin degludec [Tresiba FlexTouch U-100] 100 unit/mL (3 mL) insulin pen 32 unit subcut DAILY zolpidem 10 mg tablet 10 mg PO BEDTIME Tab-A-Rito Multivitamin w-iron 18-400 mg-mcg tablet 1 tab PO QAM cholecalciferol (vitamin D3) 50 mcg (2,000 unit) tablet 50 mcg PO QPM aripiprazole 10 mg tablet 10 mg PO QAM loratadine 10 mg tablet 10 mg PO QAM fluticasone propionate 50 mcg/actuation spray,suspension 1 spray intranasal BID docusate sodium 100 mg capsule 100 mg PO DAILY PRN (Reason: Constipation) venlafaxine 150 mg capsule,extended release 24hr 150 mg PO QAM atorvastatin 20 mg tablet 20 mg PO BEDTIME venlafaxine 75 mg capsule,extended release 24hr 75 mg PO QAM metformin 500 mg tablet 500 mg PO BID oxycodone 5 mg tablet 7.5 mg PO Q6H PRN (Reason: severe pain) albuterol sulfate [ProAir HFA] 90 mcg/actuation HFA aerosol inhaler 2 puff PO Q6H PRN (Reason: Pain) latanoprost 0.005 % drops 1 drp ophthalmic (eye) BEDTIME lorazepam 1 mg tablet 1 mg PO BID PRN (Reason: anxiety) (DME) FreeStyle Lite Strips Strip See Rx Instructions Not Applicable DAILY Qty: 10 Rx Instructions: As directed (DME) lancets [TRUEplus Lancets] 33 gauge misc See Rx Instructions topical DAILY Qty: 100 Rx Instructions: As directed Trulicity 0.75 mg/0.5 mL pen injector 0.75 mg subcut .QMONDAY isosorbide mononitrate 30 mg tablet extended release 24 hr 30 mg PO DAILY levothyroxine 112 mcg tablet 112 mcg PO DAILY Discontinued aspirin 81 mg tablet,delayed release (DR/EC) 81 mg PO QAM acetaminophen 650 mg tablet extended release 650 mg PO Q8H PRN (Reason: Pain) Discharge Orders: Discharge Order (Routine); Ordered 03/26/24 Ordered By: Marychuy Dennison Diet: Regular diet Activity on Discharge: Use cane or walker Activity Restrictions/Additional Instructions: Physical Therapy for Total knee arthroplasty: WBAT, gait training, ROM 0-12, quad strength * Limit stair climbing * No showering, no tub bath-keep dressing clean, dry and intact * No driving x6 weeks * Continue Aspirin twice a day x 6 weeks * Follow up with [facility] Orthopedics in 2 weeks: Print Language: Indonesian
--- NOTE | 2024-03-25 15:38 | P.F2F_ITS ---
Service Date Service Date: 03/25/24 Encounter Date of encounter: 03/26/24 Reasons for Services Signs and symptoms assessed: s/p revision left total knee arthroplasty. Pt. is considered homebound due to recent surgery. Unable to drive, poor balance, poor gait mechanics. Reason for physical therapy: home safety and mobility, therapeutic exercises, restore joint function, gait/transfer training and ADL training Homebound: Leaving the home is medically contraindicated at this time without the asist of a device and/or another person due th the listed conditions above and below. Reason homebound: unsteady gait / fall risk, leg weakness, pain with ambulation, pain with transfers, poor balance / fall risk and unable to drive Certification: Based on the above findings, I certify that this patient is confined to the home and needs intermittent retirement care, physical therapy and/or speech therapy, or continues to need occupational therapy. The patient is under my care, and I have initiated the establishment of the plan of care. The patient will be followed by a physician who will periodically review the plan of care. Time Spent With Patient Time: Total time managing care of this patient today ____ minutes.
[2024-03-25 15:49] LABS: Glucose, Whole Blood 152 mg/dL (60-115)
[2024-03-25] MEDS: 0.9 % Sodium Chloride Flush 3 ML SYRINGE IVFLUSH (19:47)
[2024-03-25] MEDS: Zolpidem Tartrate 5 MG TABLET 10 MG PO (20:49)
[2024-03-25] MEDS: Prazosin HCL 1 MG CAPSULE 4 MG PO (20:49)
[2024-03-25] MEDS: Latanoprost 0.005 % Ophth Sol 2.5 ML DROPS 1 DROP EYE-BOTH (20:50)
[2024-03-25 20:55] LABS: Glucose, Whole Blood 172 mg/dL (60-115)
[2024-03-25] MEDS: Fluticasone Propionate Nasal 16 GM SPRAY 1 SPRAY NOSTRIL-B (21:06)
[2024-03-25] MEDS: Insulin Glargine,Hum.rec.anlog 100 UNIT/ML 10 ML VIAL 16 UNIT SUBCUT (21:07)
[2024-03-26 04:00] VITALS: BP 124/62; PULSE 100; RESP 18; TEMP 36.5; O2SAT 96
[2024-03-26] MEDS: HYDROmorphone HCl 0.5 MG/0.5 ML SYRINGE 0.25 MG IVPUSH ×2 (04:21→10:21)
[2024-03-26] MEDS: Levothyroxine Sodium 112 MCG TABLET PO (06:06)
[2024-03-26] MEDS: Omeprazole 20 MG CAPSULE.DR PO (06:06)
[2024-03-26 06:32] LABS: MANUAL DIFF FLAG NO
[2024-03-26 06:35] LABS: Basophils Absolute Auto 0.1 X10*3/uL (0.0-0.2); Basophils Percent Auto 0.4 % (0-2); Eosinophils Absolute Auto 0.1 X10*3/uL (0.0-0.4); Eosinophils Percent Auto 0.5 % (0-4); Hematocrit 29.5 % (37.0-47.0); Hemoglobin 9.5 g/dl (12.0-16.0); Imm Gran Abs Auto 0.06 X10*3/uL (0.00-0.03); Imm Gran Pct Auto 0.5 % (0.0-0.4); Lymphocytes Absolute Auto 2.4 X10*3/uL (1.2-4.9); Lymphocytes Percent Auto 20.7 % (20-40); Mean Corpuscular HGB Conc 32.2 g/dl (31.0-35.0); Mean Corpuscular Hemoglobin 27.3 pg (27.0-33.0); Mean Corpuscular Volume 84.8 fL (80.0-98.0); Mean Platelet Volume 9.6 fL (9.4-12.3); Monocytes Percent Auto 8.3 % (2-11); Neutrophils Absolute Auto 8.2 x10*3/uL (2.0-8.3); Neutrophils Percent Auto 69.6 % (45-73); Platelet Count 255 X10*3/uL (160-400); Red Blood Count 3.48 X10*6/uL (4.20-5.50); Red Cell Distribution Width 13.9 % (11.0-16.0); White Blood Count 11.8 X10*3/uL (4.8-10.8)
[2024-03-26 06:50] LABS: Anion Gap 12 (12-20); Blood Urea Nitrogen 15 mg/dL (9-16); Calcium 8.8 mg/dL (8.4-10.2); Carbon Dioxide 24 mmol/L (22-29); Chloride 101 mmol/L (96-108); Creatinine Clr Calc Pharmacy 75.9; Estimated Glomerular Filt Rate > 60; Glucose Fasting 192 mg/dL (60-99); Potassium 4.1 mmol/L (3.3-5.1); Sodium 133 mmol/L (135-145)
[2024-03-26 07:19] VITALS: BP 109/52; PULSE 103; RESP 18; TEMP 36.8; O2SAT 93
[2024-03-26] MEDS: oxyCODONE HCl Immed Release 5 MG TABLET PO (07:25)
[2024-03-26] MEDS: 0.9 % Sodium Chloride Flush 3 ML SYRINGE IVFLUSH (07:26)
[2024-03-26 07:32] LABS: Glucose, Whole Blood 185 mg/dL (60-115)
[2024-03-26] MEDS: Fluticasone/Vilanterol 100/25 BLST.W.DEV 1 PUFF INHALE (08:19)
[2024-03-26 08:21] VITALS: BP 109/52; PULSE 103; PULSE 123; RESP 18; O2SAT 93; O2SAT 96
[2024-03-26] MEDS: Venlafaxine HCl ER 75 MG CAP.ER.24H PO (09:11)
[2024-03-26] MEDS: Metoprolol Succinate ER 25 MG TAB.ER.24H PO (09:11)
[2024-03-26] MEDS: ARIPiprazole 10 MG TABLET PO (09:11)
[2024-03-26] MEDS: Celecoxib 200 MG CAPSULE PO (09:11)
[2024-03-26] MEDS: Mirtazapine 15 MG TABLET PO (09:11)
[2024-03-26] MEDS: Isosorbide Mononitrate 30 MG TAB.ER.24H PO (09:11)
[2024-03-26] MEDS: oxyCODONE HCl ER 10 MG TAB.ER.12H PO (09:11)
[2024-03-26] MEDS: Insulin Lispro 100 UNIT/ML 3 ML VIAL SUBCUT (09:11)
[2024-03-26] MEDS: Venlafaxine HCl ER 150 MG CAP.ER.24H PO (09:12)
[2024-03-26] MEDS: Loratadine 10 MG TABLET PO (09:12)
[2024-03-26] MEDS: Gabapentin 600 MG TABLET PO (09:12)
--- NOTE | 2024-03-26 09:23 | MHC.CM.PN ---
DP: PT HAS BEEN MEDICALLY CLEARED FOR DC HOME WITH NEW [facility] FOR P.T. [facility] HAS BEEN UPDATED ABOUT TODAY'S DC. FAMILY WILL TRANSPORT.
--- NOTE | 2024-03-26 10:51 | PC.NURSE ---
Pt for discharge to home with Services. reviewed discharge instructions with staking press operator Tana from staking press operator services pt accepting of discharge . Pt comfortable doing Lovenox injections at home as she gives herself insulin injections
[2024-03-26 11:25] VITALS: BP 137/81; PULSE 113; RESP 18; TEMP 36.4; O2SAT 97
--- NOTE | 2024-03-31 09:39 | P.OP_ITS ---
Operative Note Operative Note Date of Service: 03/24/24 Narrative: Date of Service: 03/24/24 Pre-op diagnosis: left knee prosthetic loosening Post-op diagnosis: same Procedure: Revision left TKA Implants: Ruby Triathlon 3 TS cemented femur +[id number] stem with 10 mm posterior and ante rior augments; small tibial cone with 3 universal baseplate and 10 mm medial and lateral augments with 19 TS insert Surgeon: Antonino Oro MD Anesthesia: GETA, regional and local Was an Carry All Driver used for this Procedure?: Yes Carry All Driver: Khushi Mathias Estimated blood loss (mL): 300 Tourniquet time (min): 135 IV fluids (mL): 1,500 Pathology: none sent Condition: stable Disposition: PACU Procedure in detail: The patient was brought to the operating room and prepped and draped in standard sterile fashion. A time-out was called to identify proper site proper procedure proper surgeon and IV antibiotics were administered. 1 g of IV tranexamic acid was administered. I began by making a midline incision through the prior incision and created a full thickness skin flap. The retinaculum was exposed and I performed a medial parapatellar arthrotomy. The patella was translated laterally and the knee was flexed up. There was nl appearing synovial fluid and no abnormal appearing joint fluid or suggestion of infection. The polyethylene insert was removed with an osteotome and the femur examined. It was grossly loose and removed easily with only minimal done loss. I used a combination of os teotome and rongeur and curette to remove the cement. There was moderate bone loss. I then turned my attention to the tibia. The tibial component was not loose. I began by using a flexible small ostetome to separate the prosthesis from the underlying cement. I meticulously worked circumferentially under the tibial prosthesis until I was able to tamp it out. There was moderate bone loss posteromedially and posterolaterally most prominently. The posterior defect was uncontained and I elected to trial a small cone. Prior to this I removed all excess cement and irrigated the femur and tibial copiously. I used an intra medullary guide to make my tibial clean up cuts. We were down to the fibular head and so I estimated 10 mm augments medially and laterally and made my cuts accordingly. A small cone was trialed after sizing a 3 universal baseplate. The cone trial was placed and I turned my attention to the femur. Using an intramedullary guide and the epicondyles for reference I made a distal femoral cut, again accounting for 10 mm augments distally. I then placed my chamfer guide and made my chamfer cuts. These were airballs and I made my posterior cuts to accomodate 10 mm augments. Once I had made cuts down to healthy bone I made a box cut for the TS and trialed a 3 TS with 10 mm anterior and posterior augments. I took the knee through a range of motion and was satisfied with the stability, range and tracking. I therefore removed all instrumentation and opened the implants. These were put together on the back table and bone cement was mixed in standard fashion using 3rd generation technique. I then inserted the small cone to the level of the tibial cut and cemented in the tibial construct while applying axial compression. When the cement was dry I removed all excess cement and then repeated the process for the femoral component. Once the cement was dry all excess cement was removed. I then trialed with a 19TS insert and was satisfied with the stability, ROM and tracing. The final insert was placed and local TXA was administered. The knee was then closed with a running Quill suture, a 3 0 Vicryl and millie on the skin. Patient was then placed in sterile dressing and brought to recovery room in stable condition there were no known complications.
== END 2024-03-26 11:34 | disposition home health service (06) ==
LOC: HO.SSS 10:37 → HO.S3 16:32
PROVIDERS: Nurse Practitioner; Orthopaedic Surgery; PCP Family Medicine; Visit Provider Physician Assistant
PROC: (CPT 27487; principal; 2024-03-24 12:00)
DX: T84.033A Mechanical loosening of internal left knee prosthetic joint, initial encounter (principal); Y79.2 Prosthetic and other implants, materials and accessory orthopedic devices associated with adverse incidents; Y92.9 Unspecified place or not applicable; Z96.652 Presence of left artificial knee joint; E03.9 Hypothyroidism, unspecified; I10 Essential (primary) hypertension; H40.9 Unspecified glaucoma; E78.5 Hyperlipidemia, unspecified; E11.9 Type 2 diabetes mellitus without complications; K21.9 Gastro-esophageal reflux disease without esophagitis; J45.20 Mild intermittent asthma, uncomplicated; I42.8 Other cardiomyopathies; Z87.442 Personal history of urinary calculi; Z79.82 Long term (current) use of aspirin; Z79.4 Long term (current) use of insulin; Z79.84 Long term (current) use of oral hypoglycemic drugs; Z79.85 Long-term (current) use of injectable non-insulin antidiabetic drugs; Z79.51 Long term (current) use of inhaled steroids; Z79.899 Other long term (current) drug therapy; Z88.5 Allergy status to narcotic agent; Z88.8 Allergy status to other drugs, medicaments and biological substances; Z91.041 Radiographic dye allergy status; Z96.651 Presence of right artificial knee joint; Z98.890 Other specified postprocedural states
CPT/HCPCS: 27487; 36415; 73560; 80048; 82947; 83036; 85014; 85018; 85025; 85027; 86850; 86900; 86901; 87640; 87641; 94640; 94664; 97110; 97116; 97162; C1713; C1776; J0131; J0665; J0690; J1100; J1171; J1650; J1805; J2003; J2250; J2405; J2704; J3010; J7120

== ENCOUNTER → 2024-03-24 10:31 | Outpatient (BNV) | payer OTHER, SELFPAY | PROVIDERS: PCP Family Medicine; Visit Provider Physician Assistant | DX: Z96.652 Presence of left artificial knee joint (principal) | CPT/HCPCS: 99222 ==

== ENCOUNTER → 2024-03-24 17:29 | Outpatient (BNV) | payer OTHER, SELFPAY | PROVIDERS: PCP Family Medicine; Visit Provider Radiology Diagnostic Radiology | DX: Z96.652 Presence of left artificial knee joint (principal) | CPT/HCPCS: 73560 ==

== ENCOUNTER 2024-03-31 08:37 | Outpatient (AMB) | payer OTHER, SELFPAY ==
--- NOTE | 2024-03-31 08:39 | MHC.OFFVIS ---
Intake Visit Reasons: L TKA Rev w/NE 03/24/24- BANDAGE CHANGE Intake Note: Trish is a 68 year old female who presents today post operatively status post left TKA Revision w/NE DOS: 03/24/24. Patient is here today to perform bandage change. Patient reports she is having 7 out of 10 pain on pain scale. She states she has been taking her medication as prescribed and she is finding relief. Allergies Iodinated Contrast Media [IV CONTRAST] Allergy (Severe, Verified 03/31/24 08:44) itching, hives morphine [Morphine] Allergy (Intermediate, Verified 03/31/24 08:44) ITCHING, rash tramadol [Ultram] Allergy (Intermediate, Verified 03/31/24 08:44) rash, itching HPI HPI L TKA Rev w/NE 03/24/24- BANDAGE CHANGE: Details: Trish is a 68 year old female who presents today post operatively status post left TKA Revision w/NE DOS: 03/24/24. Patient is here today to perform bandage change. Patient reports she is having 7 out of 10 pain on pain scale. She states she has been taking her medication as prescribed and she is finding relief. [facility] Medical History Arthritis Hypothyroidism Renal calculi Environmental and seasonal allergies Nocturnal hypoxia Abnormal nuclear stress test Diabetes HTN (hypertension) Cardiomyopathy Bilateral nephrolithiasis Retention of urine Acid reflux Surgical History Status post total left knee replacement History of total left knee replacement (TKR) Hx of lithotripsy (2018) History of total right knee replacement (2011) Hx of repair of right rotator cuff (2013) History of cystoscopy Hx of tubal ligation History of hand surgery Family History Brother Breast cancer Social History Household Members: Spouse Household Members Other:: lives w/her grandson Housing: House Are you a primary rn progressive care unit to a significant other at home: Yes (grandson 17 yrs) Do you presently have visiting nurse or other home services: No 75 years or older and lives alone: No Alcohol intake: current Alcohol intake frequency: holidays/special occasions only Comment: post op left knee, WBAT Patient Tobacco Use Status: Never used Tobacco service: No Current occupational status: disabled Current occupation: rt handed Gender identity: Female Female Reproductive History Menstrual Age of Menarche: 12 Review of Systems Const All systems reviewed & are unremarkable except as noted in HPI and below Physical Exam Extrem Other: Dressing on left knee clean, dry, intact with mild amount of dried blood noted on the dressing No evidence of surrounding erythema, ecchymosis No evidence of infection Patient is able to flex and extend the digits of the left foot without difficulty Compartments soft, nontender Distal sensation intact Capillary refill brisk Assessment & Plan Assessment & Plan (1) Status post revision of total replacement of left knee: Code(s): Z96.652 - Presence of left artificial knee joint Category: Surgical Plan Status post left revision TKA DOS 03/24/2024 Surgical site cleaned, dressing changed without complication or difficulty Patient was advised she should continue with her previously scheduled postoperative appointment Patient was amenable to this plan Coding Level of Care Code Global (26267) Diagnoses Status post revision of total replacement of left knee Z96.652
--- OUTSIDE RECORDS SUMMARY | 2024-03-31 08:49 | XMS_ITS | Encounter Summary ---
Author Organization [employer] Address [address] [place] [address] [address] [place] [address] Care Team Providers Care Cable Installer Repairer Helper Name Role Phone Ethel Chase DO Primary Care Provider [phone] PuVaishnavi thorpe PharmD Unavailable [phone] Reason for Visit * Reason Comments Med Refill Encounter Details Date Type Department Care Team (Late st Contact Info) Description 04/06/2022 Refill [facility] [address] [place] [address] Ethel Chase DO [address] [place] [address] Other chronic pain Social History Tobacco Use Types Packs/Day Years Used Date Smoking Tobacco: Never Alcohol Use Standard Drinks/Week Comments Never 0 (1 standard drink = 0.6 oz pur e alcohol) Depression Answer Date Recorded Patient Health Questionnaire-9 Score 0 02/07/2022 Depression Answer Date Recorded Patient Health Questionnaire-2 Score 0 02/07/2022 Comments Unknown Sex and Gender Information Value Date Recorded Sex Assigned at Female 12/25/2021 10:14 AM EDT Legal Sex Female 10:14 AM EDT Gender Identity Female 12/25/2021 10:14 AM EDT Sexual Orientation Straight 12/25/2021 10 :14 AM EDT documented as of this encounter Plan of Treatment Upcoming Encounters Date Type Department Care Team (Late st Contact Info) Description 04/27/2024 9:00 AM EST Medication Management [facility] [address] [place] [address] Puia, Vaishnavi, PharmD [address] [place] [address] documented as of this encounter Visit Diagnoses Diagnosis Other chronic pain documented in this encounter Additional Health Concerns Assessment Noted Time PHQ-9 Depression Total Score: 0 02/08/20 22 10:43 AM EST documented as of this encounter Care Teams Cable Installer Repairer Helper Relationship Specialty Start Date End Date Ethel Chase DO [address] [place], [place] [phone] PCP - General Family Medicine 10/12/13 Vaishnavi Laird PharmD [address] [place], [place] [phone] Pharmacist Internal Medicine 02/07/23 documented as of this encounter
--- OUTSIDE RECORDS SUMMARY | 2024-03-31 08:49 | XMS_ITS | Encounter Summary ---
Author Organization [employer] Address [address] [place] [address] [address] [place] [address] Care Team Providers Care Biopharmaceutical Rep Name Role Phone Ethel Chase DO Primary Care Provider Vaishnavi Laird PharmD Unavailable Reason for Visit * Reason Comments Med Refill Encounter Details Date Type Department Care Team (Late st Contact Info) Description 06/07/2022 Refill [facility] [address] [place] [address] Ethel Chase DO [address] [place] [address] Other chronic pain Social History Tobacco Use Types Packs/Day Years Used Date Smoking Tobacco: Never Smokeless Tobacco: Never Alcohol Use Standard Drinks/Week Comments [...] Orientation Straight 12/25/2021 10 :14 AM EDT COVID-19 Exposure Response Date Recorded In the last 10 days, have yo u been in contact with someone who was confirmed or suspected to have Coronavirus/COVID-19? No / Unsure 05/29/2022 1:43 PM EDT documented as of this encounter Miscellaneous Notes * Telephone Encounter - Ethel Chase DO - 06/08/2022 9:12 AM EDT One mos supply rx sent on 06/07/22 documented in this encounter Plan of Treatment Upcoming Encounters Date Type Department Care Team (Late st Contact Info) Description 04/27/2024 9:00 AM EST Medication Management [facility] [address] [place] [address] Vaishnavi Laird PharmD [address] [place] [address] documented as of this encounter Visit Diagnoses Diagnosis Other chronic pain documented in this encounter Additional Health Concerns Assessment Noted Time PHQ-9 Depression Total Score: 0 02/08/20 10:43 AM EST documented as of this encounter Care Teams Biopharmaceutical Rep Relationship Specialty Start Date End Date Ethel Chase DO [address] [place] [id number] PCP - General Family Medicine 10/12/13 Vaishnavi Laird PharmD [address] [place] [phone] Pharmacist Internal Medicine 02/07/23 documented as of this encounter
--- OUTSIDE RECORDS SUMMARY | 2024-03-31 08:49 | XMS_ITS | Encounter Summary ---
Author Organization [employer] Address [address] [facility] [address] [place] [address] Care Team Providers Care Health Therapist Name Role Phone Ethel Chase DO Primary Care Provider [phone] Vaishnavi Laird PharmD Unavailable [phone] Reason for Visit * Reason Onset Date Comments Pre op 01/27/2024 Encounter Details Date Type Department Care Team ([facility] st Contact Info) Description 01/27/2024 Telephone [facility] [address] [place] [address] Ethel Chase DO [address] [place] [address] Pre op Social History Tobacco Use Types Packs/Day Years Used Date Smoking Tobacco: Never Smokeless Tobacco: Never Alcohol Use Standard Drinks/Week Comments Yes 0 (1 standard drink = 0.6 oz pur e alcohol) oca Depression Answer Date Recorded Patient Health Questionnaire-9 Score 8 10/18/2023 Patient Health Questionnaire-9 Score 8 10/18/2023 Last PHQ-9: Questionnaire Data Not on file 0 10/18/2023 Housing Stability Answer Date Recorded What is your housing situation today? I have pérez turcios 01/15/[address] you li ve. Do you have problems with any of the following? None of the above 01/15/2024 Food Insecurity Answer Date Recorded Within the past 12 months, y ou worried that your food would run out before you got money to buy more: Never True 01/15/2024 Within the past 12 months,th e food you bought just didn't last and you didn't have enough money to get more: Never True Transportation Answer Date Recorded In the past 12 months, has l ack of transportation kept you from medical appts, meetings, work or from getting things needed for daily living? No 01/15/2024 Utilities Answer Date Recorded In the past 12 months, has t he electric, gas, oil or water company threatened to shut off services in your home? No 01/15/2024 Depression Answer Date Recorded Patient Health Questionnaire-2 Score 2 10/18/2023 Internet Access Answer Date Recorded Internet Access Q1 Yes 01/15/2024 Internet Access Q2 Not on file 01/15/2024 Comments Unknown Sex and Gender Information Value Date Recorded Sex Assigned at Female 12/25/2021 10:14 AM EDT Legal Sex Female 10:14 AM EDT Gender Identity Female 12/25/2021 10:14 AM EDT Sexual Orientation Straight 12/25/2021 10 :14 AM EDT documented as of this encounter Miscellaneous Notes * Telephone Encounter - Venus Hensley - 01/27/2024 12:14 PM EST Pt scheduled for pre op on 02/14/24 at 02:15PM. Sujata at [facility] stated she will be contacting pt to provide appointment details. Reminder letter sent via mail Date of Surgery: 03/24/24 Surgical procedure being done: left knee revision surgery Type of anesthesia: general anesthesia with block Lab needed: Yes include A1c EKG: Yes Surgeon's name: Dr Oro Facility name: [facility] Orthopedic Surgeon's office number: [phone] Surgeon's office fax number: [phone] Contact name (person you spoke with): Sujata Last office note from surgeon requested: Yes Send Message to Venus Hensley and Matias Crowell documented in this encounter Plan of Treatment Upcoming Encounters Date Type Department Care Team ([facility] st Contact Info) Description 04/27/2024 9:00 AM EST Medication Management [facility] [address] [place] [address] Vaishnavi Laird, PharmD [address] [place], [place] [phone] documented as of this encounter Goals Goal Patient Goal Type Associated Problems Recent Progress Patient-Stated? Author Hemoglobin A1c < 7 Result Component 7.1( 4 10:35 AM EST) No Vaishnavi Laird PharmD Record your blood sugar as directed Result Component No Vaishnavi Laird PharmD documented as of this encounter Visit Diagnoses Not on filedocumented in this encounter Additional Health Concerns Assessment Noted Time PHQ-9 Depression Total Score: 8 10/18/19 24 11:35 AM EDT documented as of this encounter Care Teams Health Therapist Relationship Specialty Start Date End Date Ethel Chase DO [address] [place] [address] PCP - General Family Medicine 10/12/13 Vaishnavi Laird PharmD [address] [place] [address] Pharmacist Internal Medicine 02/07/23 documented as of this encounter
--- OUTSIDE RECORDS SUMMARY | 2024-03-31 08:50 | XMS_ITS | Clinical Summary ---
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 022 Active albuterol (2.5 MG/3ML) 0.083% nebulizer solution Take 3 mL by nebulization in the morning, at noon, in the evening, and at bedtime. 021 Active zolpidem (Ambien) 10 MG tablet Take 1 tablet by mouth at bedtime. Active ARIPiprazole (Abilify) 10 MG tablet Take 10 mg by mouth in the morning. 023 Active latanoprost (Xalatan) 0.005 % ophthalmic solution 023 Active lisinopril 20 MG tablet Take 20 mg by mouth at bedtime. 023 Active metoprolol succinate XL (Toprol-XL) 25 MG 24 hr tablet Take 25 mg by mouth in the morning. 023 Active mirtazapine (Remeron) 15 MG tablet TAKE 1 TABLET BY MOUTH AT BEDTIME FOR MOOD / FOR SLEEP 023 Active prazosin (Minipress) 2 MG capsule TAKE 2 CAPSULES BY MOUTH EVERY DAY AT BEDTIME 023 Active venlafaxine XR (Effexor XR) 150 MG 24 hr capsule TAKE 1 CAPSULE BY MOUTH EVERY MORNING WITH 75mg CAPSULE 023 Active venlafaxine XR (Effexor XR) 75 MG 24 hr capsule 023 Active LORazepam (Ativan) 1 MG tablet TAKE 1 TABLET BY MOUTH TWICE A DAY NEEDED FOR ANXEITY 023 Active Continuous Blood Gluc Ocular Care Aide (FreeStyle Gerard 2 [place]) deviceIndications: Poorly controlled diabetes mellitus (CMS/HCC) Use to scan sensor at least every 8 hours, as directed, for CGM 1 each 023 Active Alcohol Swabs (Alcohol Pads) 70 % padsIndications:Po mabel controlled diabetes mellitus (CMS/HCC) Use as directed daily prior to insulin injections and biweekly prior to CGM sensor changes. 100 each 024 Active loratadine (Claritin) 10 MG tablet TAKE 1 TABLET BY MOUTH EVERY MORNING 90 tablet 3 024 Active atorvastatin (Lipitor) 20 MG tablet TAKE 1 TABLET BY MOUTH AT BEDTIME 90 tablet 3 024 Active metFORMIN (Glucophage) 500 MG tablet TAKE 1 TABLET BY MOUTH TWICE DAILY IN THE MORNING AND IN THE EVENING WITH MEALS 60 tablet 024 Active glucose blood (FreeStyle Precision Angel Test) test stripIndications:P oorly controlled diabetes mellitus (CMS/HCC) USE DIRECTED TO TEST BLOOD SUGAR UP TO TWICE DAILY DIRECTED 50 strip 024 Active levothyroxine (Synthroid, Levoxyl) 112 MCG tablet TAKE 1 TABLET BY MOUTH EVERY MORNING BEFORE BREAKFAST 90 tablet 3 024 Active gabapentin (Neurontin) 600 MG tablet TAKE 1 TABLET BY MOUTH TWICE DAILY IN THE MORNING AND AT BEDTIME 60 tablet 5 024 Active pantoprazole (ProtoNix) 40 MG EC tabletIndications: Chronic gastroesophageal reflux disease TAKE 1 TABLET BY MOUTH EVERY MORNING 90 tablet 1 024 Active aspirin (Aspirin Low Dose) 81 MG EC tabletIndications: Type 2 diabetes mellitus with other specified complication, unspecified whether alf insulin use ([facility]) TAKE 1 TABLET BY MOUTH EVERY EVENING 90 tablet 1 024 Active fluticasone-salmet sari (Advair) 115-21 MCG/ACT inhaler Inhale 2 puffs in the morning and at bedtime. Rinse mouth with water after use to reduce aftertaste and incidence of candidiasis. Do not swallow. 12 g 11 024 2024 Active meclizine (Antivert) 25 MG tablet Take 1 tablet (25 mg) by mouth if needed in the morning, at noon, and at bedtime for dizziness. 30 tablet 3 024 2024 Active OneTouch Delica Lancets 33G miscIndications:Ty pe 2 diabetes mellitus without complication, without long-term current use of insulin (CMS/[facility]) USE TO TEST BLOOD SUGAR TWICE DAILY 100 each 11 Active Ventolin HFA 108 (90 Base) MCG/ACT inhaler INHALE 2 PUFFS BY MOUTH EVERY 4 HOURS NEEDED FOR WHEEZING OR SHORTNESS OF BREATH 18 g 1 Active isosorbide mononitrate ER (Imdur) 30 MG 24 hr tablet TAKE 1 TABLET BY MOUTH EVERY MORNING 90 tablet 1 Active glucagon (Baqsimi Two Pack) 3 MG/DOSE nasal powderIndications: Type 2 diabetes mellitus without complication, without long-term current use of insulin (CMS/HCC) Administer 3 mg via 1 device into the nostril for hypoglycemia with loss of consciousness. If no response after 15 minutes administer an additional dose via 2nd device into other nostril. 2 each 1 Active Semaglutide, 2 MG/DOSE, (Ozempic, 2 MG/DOSE,) 8 MG/3ML solution pen-injectorIndica tions:Type 2 diabetes mellitus without complication, without long-term current use of insulin (CMS/HCC) Inject 2 mg under the skin 1 (one) time per week. 3 mL 11 Active glucose 4 g chewable tablet Chew 4 tablets (16 g) if needed for low blood sugar (BG < 70 mg/dL). 20 tablet 5 024 2024 Active Continuous Glucose Sensor (FreeStyle Gerard 2 Sensor) miscIndications:Po mabel controlled diabetes mellitus (CMS/HCC) USE DIRECTED CHANGE EVERY 14 DAYS 2 each 11 11/07/2 024 Active baclofen (Lioresal) 10 MG tablet Take 1 tablet (10 mg) by mouth if needed in the morning, at noon, and at bedtime for muscle spasms. 60 tablet 3 024 2024 Active Diclofenac Sodium 1 % gel Apply 2 g topically if needed in the morning, at noon, in the evening, and at bedtime (pain). 150 g 3 Active docusate sodium (Colace) 100 MG capsuleIndications :Constipation, unspecified constipation type TAKE 1 CAPSULE BY MOUTH TWICE DAILY IN THE MORNING AND AT BEDTIME 180 capsule 3 Active Calcium Carb-Cholecalcifer ol (Oyster Shell Calcium w/D) 500-5 MG-MCG tabletIndications: Osteopenia, unspecified location TAKE 1 TABLET BY MOUTH TWICE DAILY IN THE MORNING AND IN THE EVENING 180 tablet 1 Active Multiple Vitamins-Iron (Tab-A-Rito/Iron) tablet TAKE 1 TABLET BY MOUTH EVERY MORNING WITH FOOD 90 tablet 1 Active insulin pen needle 32G x 4 mm miscIndications:Ty pe 2 diabetes mellitus without complication, without long-term current use of insulin ([facility]) Use to inject insulin 1 times daily 100 each 3 Active insulin degludec (Tresiba FlexTouch) 100 UNIT/ML injectionIndicatio ns:Type 2 diabetes mellitus without complication, without long-term current use of insulin ([facility]) Inject 32 units subQ once daily at bedtime. 15 mL 5 Active cholecalciferol VITAMIN D (Vitamin D-3) 50 MCG (2000 UT) tablet TAKE 1 TABLET BY MOUTH EVERY EVENING 90 tablet 1 Active oxyCODONE-acetamin ophen (Percocet) 7.5-325 MG tabletIndications: Other chronic pain Take 1 tablet by mouth every 6 (six) hours if needed for severe pain for up to 28 days. Do not start before February 12, 2024. 112 tablet 024 2024 Discontinued(R eorder (will not trigger notification to Pharmacy)) oxyCODONE-acetamin ophen (Percocet) 7.5-325 MG tabletIndications: Other chronic pain Take 1 tablet by mouth every 6 (six) hours if needed for severe pain for up to 7 days. Do not start before March 11, 2024. 28 tablet 025 2024 Discontinued(R eorder (will not trigger notification to Pharmacy)) oxyCODONE-acetamin ophen (Percocet) 7.5-325 MG tabletIndications: Other chronic pain Take 1 tablet by mouth every 6 (six) hours if needed for severe pain for up to 7 days. 28 tablet 025 2024 Active Problems Problem Noted Date Diagnosed Date Uterine leiomyoma 10/18/2023 Urinary incontinence 05/29/2022 Obesity 05/29/2022 Fatty liver 05/13/2022 Cardiomyopathy 02/07/2022 Nephrolithiasis 02/07/2022 Tremor of right hand 02/07/2022 Hypothyroidism 01/10/2015 Anemia 01/10/2015 Chronic interstitial cystitis 01/10/2015 Chronic low back pain 01/10/2015 Generalized osteoarthritis 01/10/2015 Diverticulosis 01/10/2015 Essential hypertension 01/10/2015 Chronic gastroesophageal reflux disease 01/11/20 15 Status post right knee replacement 01/10/2015 Hyperlipidemia 01/10/2015 Mild persistent asthma 01/10/2015 Major depression, recurrent, chronic 01/10/2015 Type 2 diabetes mellitus 01/10/2015 Resolved Problems Problem Noted Date Diagnosed Date Resolved Date Poorly controlled diabetes mellitus 02/07/2023 07/15/2023 Osteoarthritis 02/07/2022 05/13/2022 History of total knee arthroplasty 01/10/2015 05/29/2022 Non-specific colitis 01/10/2015 022 Steatosis of liver 01/10/2015 3 Encounters Date Type Department Care Team Description 03/26/2024 Orders Only GENERIC EXTERNAL DATA DEPARTMENT Provider, Generic External Data 03/25/2024 Orders Only GENERIC EXTERNAL DATA DEPARTMENT Provider, Generic External Data 03/24/2024 Orders Only GENERIC EXTERNAL DATA DEPARTMENT Provider, Generic External Data 03/23/2024 Refill [facility] [address] [place] [address] Ethel Chase, Other chronic pain 03/23/2024 Telephone [facility] [address] [place] [address] Ethel Chase DO Pre-Op 03/23/2024 Refill [facility] [address] [place] [address] Ethel Chase DO Other chronic pain 03/10/2024 Refill [facility] [address] [place] [address] Ethel Chase DO Other chronic pain 03/02/2024 Telephone [facility] [address] [place] [place], [place] [address] Ethel Chase DO Appointment Request 02/24/2024 Telephone [facility] [address] [place] [address] Susan Guillaume, MARY CGM PA for sensors 02/14/2024 Telephone [facility] [address] [place], [place] [address] Ethel Chase DO No Show 02/10/2024 Refill [facility] [place] [address] Ethel Chase DO Other chronic pain 02/05/2024 Refill [facility] [place] [address] Ethel Chase DO Constipation, unspecified constipation type; Osteopenia, unspecified location 01/30/2024 Telephone [facility] [place] [address] Dixon Knutson MA Chart Prep 01/29/2024 10:45 AM EST Office Visit [facility] [address], [place] [address] Ethel Chase DO Type 2 diabetes mellitus without complication, without long-term current use of insulin (CMS/HCC) (Primary Dx); Essential hypertension; Other hyperlipidemia; Fatty liver; Major depression, recurrent, chronic (CMS/HCC); Mild persistent asthma without complication; Other specified hypothyroidism; Other cardiomyopathy (CMS/HCC); Tremor of right hand; Nephrolithiasis; Sleep-disordered breathing; Forgetfulness; Abnormal CT of the head; Chronic diarrhea; Chronic bilateral low back pain, unspecified whether sciatica present; Chronic pain of left knee; Healthcare maintenance 01/29/2024 Travel 01/27/2024 Telephone [facility] [place] [address] Ethel Chase, Pre op 01/15/2024 Patient Outreach [facility] [place] [address] Ethel Chase, Pre-visit Planning (SDOH screening negative and tobacco screening negative) 01/10/2024 Refill [facility] [place] [address] Ethel Chase, Other chronic pain 01/05/2024 Orders Only [facility] [place] [address] Ethel Chase, Type 2 diabetes mellitus without complication, without long-term current use of insulin ([facility]) (Primary Dx) 01/02/2024 Telephone [facility] [place] [address] Suad Wilson RN UTOX confirmation Pos GURMEET 01/02/2024 Refill [facility] [place] [address] Vaishnavi Laird PharmD Poorly controlled diabetes mellitus (CMS/HCC) 12/31/2023 9:00 AM EST Clinical Support [facility] [place] [address] Suad Wilson RN Chronic bilateral low back pain with right-sided sciatica (Primary Dx) 12/31/2023 Telephone [facility] [facility] [place] [address] Suad Wilson RN UTOX Pos GURMEET 12/31/2023 Travel from Last 3 Months Immunizations Name Administration Dates Next Due Hep B, adult 10/13/2014, 5,04/08/2014,06/08,05/08/2010 Influenza High-dose Quadriva lent Preservative Free 01/01/2023 Influenza injectable quadriv alent IIV4 with preservative 01/03/2018,11/19/2016,03/19/2016,01/10 Influenza injectable quadriv alent preservative free 02/07/2022,11/29/2020,11/17/2019,01/19 Influenza, High Dose Seasona l, Preservative Free 12/26/2023 Influenza, IIV3, injectable 12/17/2013, 0 Influenza, Split (incl. scarlett fied surface antigen) 11/18/2012,12/21/2011 Moderna Covid-19 Vaccine 12+ 01/24/2021,05/25/19 21,04/26/2020 Moderna Covid-19 Vaccine 6+ Bivalent 11/26/2021 Pfizer Covid-19 Vaccine 12+ 12/26/2023, 3 Pfizer Covid-19 Vaccine 12+ Bivalent 02/07/2022 Pneumococcal Conjugate PCV 13 05/16/2021 Pneumococcal Polysaccharide PPSV23 04/08/2014, Pneumococcal, Unspecified 12/11/2004 RSV Bivalent 02/07/2023 TD (adult), 2 Lf tetanus tox oid, preservative free, adsorbed 02/07/2022 Tdap 12/21/2011 Zoster, Recombinant 07/23/2018,05/16/2018 Zoster, live 09/02/2017 Social History Tobacco Use Types Packs/Day Years Used Date Smoking Tobacco: Never Smokeless Tobacco: Never Tobacco Cessation:Counseling Given: Not Answered Alcohol Use Standard Drinks/Week Comments Yes 0 [...] Orientation Straight 12/25/2021 10 :14 AM EDT Last Filed Vital Signs Vital Sign Reading Time Taken Comments Blood Pressure 110/72 02/10/2024 9:20 AM EST Pulse 95 01/29/2024 10:33 AM EST Temperature 36.2 ??C (97.2 ??F) 01/29/2024 10:[address] Respiratory Rate 16 01/29/2024 10:33 AM EST Oxygen Saturation 97% 01/29/2024 10:33 AM EST Inhaled Oxygen Concentration - - Weight 119 kg (262 lb) 01/29/2024 10:33 AM EST Height 159.8 cm (5' 2.93 ) 01/29/2024 10:[address] Body Mass Index 46.52 01/29/2024 10:33 AM EST Plan of Treatment Upcoming Encounters Date Type Department Care Team (Late st Contact Info) Description 04/27/2024 9:00 AM EST Medication Management [facility] [address] [place] [address] Vaishnavi Laird, PharmD [address] [place] [address] Health Maintenance Due Date Last Done Comments CT Colonography 1955 FIT DNA/Cologuard 1955 FIT 1955 FOBT 1955 Sigmoidoscopy 1955 Diabetes: Foot Exam 12/29/1965 Eye Exam 12/29/1965 Hepatitis A Vaccines (1 of 2 - Risk 2-dose series) 12/29/1974 Diabetes: Urine Protein Screening 03/13/2024 03/13/2023, 08/24/2022, 10/28/2020, Additional history exists Diabetes: Hemoglobin A1C 04/28/2024 024, 11/11/2023, 10/30/2023, Additional history exists Depression Screening 10/17/2024 10/18/2023, 10/18/19 24 Lipid Panel 11/10/2024 11/11/2023, 07/28, 10/28/2020 SDOH Screening 01/14/2025 01/15/2024 Alcohol/Substance Use Screening 01/28/2025 01/29/2024 Tobacco Screening 01/28/2025 01/29/2024 Mammogram 08/05/2025 08/06/2023, 0510/2022, 07/03/2022, Additional history exists Pneumococcal Vaccine: 50+ Years (3 of 3 - PCV20 or PCV21) 05/16/2026 05/16/2021, 04/08/2014, 12/11/2004, Additional history exists Colonoscopy 03/03/2029 03/03/2019 Colorectal Cancer Screening 03/03/2029 DTaP/Tdap/Td Vaccines (3 - Td or Tdap) 02/08/2032 02/07/2022, 12/21/2011 Hepatitis B Vaccines Completed 10/13/2014, 05/12/2014, 04/08/2014, Additional history exists Zoster Vaccines Completed 07/23/2018, 04/26, 09/02/2017 Hepatitis C Screening Completed 10/31/2019 RSV Patients and Patients Aged 60 years or older Completed 02/07/2023 COVID-19 Vaccine Completed 12/26/2023, 08/2022, 02/07/2022, Additional history exists Influenza Vaccine Completed 12/26/2023, , 02/07/2022, Additional history exists HIB Vaccines Aged Out No longer eligi ble based on patient's age to complete this topic HPV Vaccines Aged Out No longer eligi ble based on patient's age to complete this topic IPV Vaccines Aged Out No longer eligi ble based on patient's age to complete this topic Meningococcal Vaccine Aged Out No kadeem susan eligible based on patient's age to complete this topic RSV under 20 months Aged Out No longe r eligible based on patient's age to complete this topic Rotavirus Vaccines Aged Out No longer eligible based on patient's age to complete this topic Goals Goal Patient Goal Type Associated Problems Recent Progress Patient-Stated? Author Hemoglobin A1c < 7 Result Component 7.1( 10:35 AM EST) No Vaishnavi Laird, PharmRina Record your blood sugar as directed Result Component No Vaishnavi Laird, PharmRina Procedures Procedure Name Priority Date/Time Associated Diagnosis Comments GLUCOSE, WHOLE BLOOD Routine 03/26/2024 7:26 AM EST BASIC METABOLIC PANEL, FASTING Routine 03/26/2024 5:51 AM EST CBC WITH AUTO DIFFERENTIAL Routine 03/26/2024 5:51 AM EST GLUCOSE, WHOLE BLOOD Routine 03/25/2024 8:45 PM EST GLUCOSE, WHOLE BLOOD Routine 03/25/2024 3:45 PM EST GLUCOSE, WHOLE BLOOD Routine 03/25/2024 11:25 AM EST GLUCOSE, WHOLE BLOOD Routine 03/25/2024 7:35 AM EST BASIC METABOLIC PANEL, FASTING Routine 03/25/2024 6:15 AM EST CBC WITH AUTO DIFFERENTIAL Routine 03/25/2024 6:15 AM EST GLUCOSE, WHOLE BLOOD Routine 03/24/2024 8:09 PM EST XR KNEE 1-2 VIEWS LEFT Routine 03/24/2024 6:30 PM EST GLUCOSE, WHOLE BLOOD Routine 03/24/2024 5:46 PM EST GLUCOSE, WHOLE BLOOD Routine 03/24/2024 10:56 AM EST HEMOGLOBIN + HEMATOCRIT Routine 03/24/2024 10:53 AM EST POCT GLYCOSYLATED HEMOGLOBIN (HGB A1C) Routine 01/29/2024 10:35 AM EST Type 2 diabetes mellitus without complication, without long-term current use of insulin (CMS/HCC) POCT GLUCOSE Routine 01/29/2024 10:34 AM EST Type 2 diabetes mellitus without complication, without long-term current use of insulin (CMS/HCC) POCT LENCHO-14 URINE DRUG SCREEN Routine 12/31/2023 10:13 AM EST Chronic bilateral low back pain with right-sided sciatica DRUG MONITOR, COCAINE METAB, QN, URINE Routine 12/31/2023 9:30 AM EST Chronic bilateral low back pain with right-sided sciatica LIPID PANEL, STANDARD Routine 11/11/2023 9:05 AM EDT Type 2 diabetes mellitus without complication, without long-term current use of insulin (CMS/HCC) Essential hypertension Other hyperlipidemia Fatty liver Major depression, recurrent, chronic (CMS/HCC) Mild persistent asthma without complication Other specified hypothyroidism Other cardiomyopathy (CMS/HCC) Tremor of right hand Nephrolithiasis Dizziness Sleep-disordered breathing Forgetfulness Abnormal CT of the head Chronic diarrhea Healthcare maintenance BI MAMMOGRAM SCREENING TOMOSYNTHESIS BILATERAL Routine 08/06/2023 11:15 AM EDT ALBUMIN, RANDOM URINE W/CREATININE Routine 03/13/2023 9:38 AM EST ZZZ HISTORICAL HEPATITIS C ANTIBODY RFLX Routine 10/31/2019 9:40 AM EDT HM COLONOSCOPY Routine 03/03/2019 from Last 3 Months or Most Recently Relevant to Health Maintenance Results * (ABNORMAL) Glucose, Whole Blood (03/26/2024 7:26 AM EST) Only the most recent of8 resultswithin the time period is included. Glucose, Whole Blood 185(H) 60 - 115 mg/dL [facility] Comment:METER #: [id number] 3 03/26/2024 7:26 AM EST 03/26/2024 7:31 AM EST us Generic External Data Provider LAB BLOOD ORDERAB LES Final Result [facility] [address] [place] [address] [phone] * (ABNORMAL) Basic Metabolic Panel, Fasting (03/26/2024 5:51 AM EST) Only the most recent of2 resultswithin the time period is included. Sodium 133(L) 135 - 145 mmol/L [facility] Potassium 4.1 3.3 - 5.1 mmol/L [facility] Chloride 101 96 - 108 mmol/L [facility] Carbon Dioxide 24 22 - 29 mmol/L [facility] Anion Gap 12 12 - 20 [facility] Urea Nitrogen (BUN) 15 9 - 16 mg/dL [facility] Creatinine, Serum 0.85 0.5 - 1.4 mg/dL [facility] Creatinine Clr Calc Pharmacy 75.9 [facility] Comment:Provided height and weight: 157.48 cm,114.8 kg.eGFR (calculated from the MDRD study equation) and eCrCl(calculated from the Cockcroft-Gault equation) are based ondifferent parameters and may not yield comparable results.If eCrCl result is absurd, please check patient'sheight/weight. Estimated Glomerular Filt Rate >60 [facility] Comment:Chronic Kidney Disea se: Estimated GFR < 60 mL/min/1.35l3Lmidyf Kidney Disease: Estimated GFR < 15 mL/min/1.73m2 Glucose Fasting 192(H) 60 - 99 mg/dL [facility] Comment:A fasting glucose of 126 mg/dl or greater on more than oneoccasion is considered diagnostic of diabetes. Calcium 8.8 8.4 - 10.2 mg/dL [facility] 03/26/2024 5:51 AM EST 03/26/2024 6:30 AM EST us Generic External Data Provider LAB BLOOD ORDERAB LES Final Result [facility] [address] [place] [address] [phone] * (ABNORMAL) CBC auto differential (03/26/2024 5:51 AM EST) Only the most recent of2 resultswithin the time period is included. White Blood Count 11.8(H) 4.8 - 10.8 X10*3/uL [facility] Red Blood Count 3.48(L) 4.20 - 5.50 X10*6/uL [facility] Hemoglobin 9.5(L) 12.0 - 16.0 g/dl [facility] Hematocrit 29.5(L) 37.0 - 47.0 % [facility] Mean Corpuscular Volume 84.8 80.0 - 98.0 fL [facility] Mean Corpuscular Hemoglobin 27.3 27.0 - 33.0 pg [facility] Mean Corpuscular HGB Conc 32.2 31.0 - 35.0 g/dl [facility] Red Cell Distribution Width 13.9 11.0 - 16.0 % [facility] Platelet Count 255 160 - 400 X10*3/uL [facility] Mean Platelet Volume 9.6 9.4 - 12.3 fL [facility] Neutrophils Percent Auto 69.6 45 - 73 % [facility] Imm Gran Pct Auto 0.5(H) 0.0 - 0.4 % [facility] Lymphocytes Percent Auto 20.7 20 - 40 % [facility] Monocytes Percent Auto 8.3 2 - 11 % [facility] Eosinophils Percent Auto 0.5 0 - 4 % [facility] Basophils Percent Auto 0.4 0 - 2 % [facility] NRBC Pct Auto 0.0 0.0 - 0.2 /100WBC [facility] Neutrophils Absolute Auto 8.2 2.0 - 8.3 x10*3/uL [facility] Imm Gran Abs Auto 0.06(H) 0.00 - 0.03 X10*3/uL [facility] Lymphocytes Absolute Auto 2.4 1.2 - 4.9 X10*3/uL [facility] Monocytes Absolute Auto 1.0 0.1 - 1.2 X10*3/uL [facility] Eosinophils Absolute Auto 0.1 0.0 - 0.4 X10*3/uL [facility] Basophils Absolute Auto 0.1 0.0 - 0.2 X10*3/uL [facility] NRBC Abs Auto 0.000 0.0 - 0.012 X10*3/uL [facility] 03/26/2024 5:51 AM EST 03/26/2024 6:30 AM EST us Generic External Data Provider LAB BLOOD ORDERAB LES Final Result Performing Organization Address City/State/[facility] Co de Phone Number [facility] [address] [place] [address] [phone] * XR Knee 1-2 Views Left (03/24/2024 6:30 PM EST) Anatomical Region Laterality Modality Lower Extremities, Knee Left Radiogra phic Imaging 03/24/2024 6:30 PM EST Narrative 03/24/2024 6:32 PM EST ? [facility] ?[address] ?[place] [address] ?XRay Report ? Signed ? Patient: Trish Cameron ?MR#: ?? [id number] ? : 1955 ?Acct:[id number] ? Age/Sex: 68 / F ?ADM Date: 01/28/25 ? Loc: HO.S3 ?375-1 ? Attending Dr: Khushi Mathias PA-C ? Ordering Physician: Meuse,Ta-Minal PA-C ?? Date of Service: 03/24/24 ?? Procedure(s): XR knee LT 2V ?? Accession Number(s): [id number] ? cc: Ethel Chase DO; Khushi Mathias PA-C ? CLINICAL HISTORY: lt tka ? 2 view left knee ? Comparison: DX - XR KNEE LT 3V - 03/19/24 09:00 EST ?? DX/SR - XR KNEE RT 3V - 07/01/23 10:50 EDT ?? DX/SR - XR KNEE LT 3V - 07/01/23 10:50 EDT ? Findings: ?? Knee arthroplasty revision has been performed. ?? Bones intact. No dislocations. ?? No significant loss of joint space, osteophytes, or erosions. ?? No joint effusion. ?? No radiopaque foreign body. ? IMPRESSION: ?? 1. Expected appearance of knee arthroplasty revision. ? This document has been electronically signed by: Adrian Retana MD on ?? 03/24/2024 18:30:49 ? Dictated By: ?Adrian Retana MD ? Signed By: ?<Electronically signed by Adrian Retana MD in OV> ? 03/24/24 1831 ? DD/ 1830 ? TD/TT: 03/24/24 1830 ? [employer] Commercial Salesperson: ? Procedure Note Carito, Alek - 03/24/2024 [place] [address] XRay Report Signed Patient: Trish Cameron MMR#: [id number] : 1955cct:[id number] Age/Sex: 68 / FADM Date: 03/24/24 Loc: HO.S3 375-[address]: Khushi Mathias PA-C Ordering Physician: Khushi Mathias PA-C Date of Service: 03/24/24 Procedure(s): XR knee LT 2V Accession Number(s): [id number] cc: Ethel Chase DO; Khushi Mathias PA-C CLINICAL HISTORY: lt tka 2 view left knee Comparison: DX - XR KNEE LT 3V - 03/19/24 09:00 EST DX/SR - XR KNEE RT 3V - 07/01/23 10:50 EDT DX/SR - XR KNEE LT 3V - 07/01/23 10:50 EDT Findings: Knee arthroplasty revision has been performed. Bones intact. No dislocations. No significant loss of joint space, osteophytes, or erosions. No joint effusion. No radiopaque foreign body. IMPRESSION: 1. Expected appearance of knee arthroplasty revision. This document has been electronically signed by: Adrian Retana MD on 03/24/2024 18:30:49 Dictated By: Adrian Retana MD Signed By: <Electronically signed by Adrian Retana MD in OV> 03/24/241830 DD/ 29 TD/TT: 03/24/241829 Hvac Commercial Salesperson: [facility] External Provider IMG XR PROCEDURES Final Result * Hemoglobin and Hematocrit (03/24/2024 10:53 AM EST) Hemoglobin 12.6 12.0 - 16.0 g/dl [facility] Hematocrit 38.6 37.0 - 47.0 % [facility] 03/24/2024 10:5 3 AM EST 03/24/2024 11:05 AM EST Generic External Data Provider LAB BLOOD ORDERAB LES Final Result [facility] [address] [place] [phone] * (ABNORMAL) POCT glycosylated hemoglobin (Hgb A1c) (01/29/2024 10:35 AM EST) Hemoglobin A1C 7.1(A) 4.0 - 6.0 % QC Media Lot # [id number] Lot# Expiration Date , Blood Capillary blood specimen / Unknown 01/29/2024 10:35 AM EST Ethel Chase DO POINT OF CARE TEST ENTER/MARGARITA T ORDERABLES Final Result * (ABNORMAL) POCT glucose manually resulted (01/29/2024 10:34 AM EST) Glucose Blood, POC 211(A) 60 - 200 mg/dL QC Media Lot # [id number] Lot# Expiration Date ,025 Blood Capillary blood specimen / Unknown 01/29/2024 10:34 AM EST Ethel Salvatore POINT OF CARE TEST ENTER/MARGARITA T ORDERABLES Final Result * (ABNORMAL) POCT LENCHO-14 Urine Drug Screen (12/31/2023 10:13 AM EST) Cocaine Screen, Urine Positive Benzodiazepines Screen, Urine Positive Oxycodone Screen, Urine Positive Urine Urine specimen obtained by clean catch procedure / Unknown 12/31/2023 10:13 AM EST Narrative Suad Wilson RN - 12/31/2023 10:13 AM EST UTOX cup Lot#[id number] Exp. 10/14/25 Internal Pass Control UTOX was negative for FENT [facility] Salvatore POINT OF CARE TEST ENTER/MARGARITA T ORDERABLES Final Result * Drug Monitoring, Cocaine Metabolite, Quantitative, Urine (12/31/2023 9:30 AM EST) Benzoylecgonine 228 (H) [facility] Comment:REFERENCE RANGE: <10 0 ng/mL Cocaine Comments SEE NOTE [facility] Comment:This drug testing is for medical treatment only.Analysis was performed as non-forensic testing andthese results should be used only by healthcareproviders to render diagnosis or treatment, or tomonitor progress of medical conditions.Cocaine Notes:Benzoylecgonine detected is consistent with the use ofthe drug Cocaine.LDT Notes:Confirmation tests were developed and their analyticalperformance characteristics have been determined by[employer]. It has not been cleared or approvedby the FDA. This assay has been validated pursuant tothe CLIA regulations and is used for clinical purposes.Healthcare Providers needing Interpretation assistance,please contact us at [phone] ( )M-F, 8am to 10pm ESTTHIS TEST PERFORMED AT:[employer] [address] [phone] DIRECTOR: JONES OREILLY MD Urine (Urine, Random) 12/31/2023 9:30 AM EST 12/31/2023 1:31 PM EST Ethel Chase DO LAB URINE ORDERABLES Final R esult Performing Organization Address [facility] de Phone Number [facility] [address] [place] [address] [phone] * Lipid Panel, Standard (11/11/2023 9:05 AM EDT) Triglycerides 128 <150 mg/dL [facility] Comment:Desirable Triglyceri de: less than 150 mg/dLBorderline High Triglyceride 150-199 mg/dLHigh Triglyceride: 200-499 mg/dLVery High Triglyceride: greater than or equal to 5OO mg/dL Cholesterol 108 <200 mg/dL [facility] Comment:Desirable Cholestero l: less than 200 mg/dLBorderline High Cholesterol: 200-239 mg/dLHigh Cholesterol: greater than 239 mg/dL LDL Cholesterol Calculated 42 <100 mg/dL [facility] Comment:Desirable LDL: less than 100 mg/dLNear Optimal/Above Optimal LDL: 110- 129 mg/dLBorderline High LDL: 130-159 mg/dLHigh LDL: 160-189 mg/dLVery High LDL: greater than or equal to 190 mg/dL HDL Cholesterol 41 >40 mg/dL [facility] Comment:Desirable HDL: great er than 40 mg/dL Note: This HDL assay may give artificially low results in patients with liver disease. Blood Venous blood specimen / Unknown 11/11/2023 9:05 AM EDT 11/11/2023 11:33 AM EDT Ethel Chase DO LAB BLOOD ORDERABLES Final R esult Performing Organization Address [facility] Co de Phone Number [facility] [address] [place] [phone] * BI Mammogram Screening Tomosynthesis Bilateral (08/06/2023 11:15 AM EDT) Anatomical Region Laterality Modality Breast Bilateral Mammography 08/06/2023 11:1 5 AM EDT Narrative 09/05/2023 9:40 AM EDT ? [facility] [place] ? [address] ?[place] [address] ? Mammography Report ? Signed ? Patient: Trish Cameron ?MR#: ?? [id number] ? : 1955 ?Acct:[id number] ? Age/Sex: 67 / F ?ADM Date: 08/06/23 ? Loc: HO.MAMMO ? Attending Dr: Ethel Chase DO ? Ordering Physician: Ethel Chase DO ?Results: 1N ?? egative ? Date of Service: 08/06/23 ?Follow Up: 1 Year From Orig ?? inal Mammogram ? Procedure(s): MM tomosynthesis screening BI ?? Accession Number(s): [id number] ? cc: Jurcsak,Ethel A DO ? EXAMINATION: ?? MM SCREENING DIGITAL BREAST TOMOSYNTHESIS, BILATERAL ? CLINICAL INFORMATION: ? Screening. Asymptomatic. ? COMPARISON: ?? Mammography: This study is compared with prior exams dating back to ?? 2019. ? TECHNIQUE: ?? Digital breast tomosynthesis is performed in both the craniocaudal and ?? mediolateral oblique views along with computer-aided detection (CAD). ?? Synthesized 2D images are generated from the tomosynthesis. ? FINDINGS: ?? The breasts are almost entirely fatty (ACR BI-RADS breast composition ?? Category a). ? There are no significant masses, abnormal calcifications, or other ?? abnormalities. ? MM/MM tomosynthesis screening BI ?? IMPRESSION: ?? No mammographic evidence of malignancy. ? ASSESSMENT: ? BI-RADS BI-RADS 1 - Negative ? RECOMMENDATION: ?? Routine annual mammography screening. ? 1 year F/U ? This examination should not preclude the clinical evaluation of a ?? suspicious palpable abnormality. ? This patient's information was entered into a reminder system with a ?? target due date for their next mammogram. ? Dictated By: ?Florecita Spring MD ? Signed By: ?<Electronically signed by Florecita Spring MD in OV> ? 09/05/23 0936 ? DD/ 1115 ? TD/TT: ? Hvac Commercial Salesperson: ? Procedure Note Broterezavenusban, Image - 09/05/2023 [facility]'s [address] [place] [address] Mammography Report Signed Patient: Trish Cameron [facility]#: [id number] : 6Acct:[id number] Age/Sex: 67 / FADM Date: 08/06/23 Loc: HO.MAMMO Attending Dr: Ethel Chase DO Ordering Physician: Ethel Chaseults: 1N egative Date of Service: 08/06/23Follow Up: 1 Year From Orig inal Mammogram Procedure(s): MM tomosynthesis screening BI Accession Number(s): [id number] cc: Ethel Chase DO EXAMINATION: MM SCREENING DIGITAL BREAST TOMOSYNTHESIS, BILATERAL CLINICAL INFORMATION: Screening. Asymptomatic. COMPARISON: Mammography: This study is compared with prior exams dating back to 2019. TECHNIQUE: Digital breast tomosynthesis is performed in both the craniocaudal and mediolateral oblique views along with computer-aided detection (CAD). Synthesized 2D images are generated from the tomosynthesis. FINDINGS: The breasts are almost entirely fatty (ACR BI-RADS breast composition Category a). There are no significant masses, abnormal calcifications, or other abnormalities. MM/MM tomosynthesis screening BI IMPRESSION: No mammographic evidence of malignancy. ASSESSMENT: BI-RADS BI-RADS 1 - Negative RECOMMENDATION: Routine annual mammography screening. 1 year F/U This examination should not preclude the clinical evaluation of a suspicious palpable abnormality. This patient's information was entered into a reminder system with a target due date for their next mammogram. Dictated By: Florecita Spring MD Signed By: <Electronically signed by Florecita Spring MD in OV> 09/05/23 0936 DD/ 1115 TD/TT: H[employer] Commercial Salesperson: Ethel Chase DO IMG BI PROCEDURES Final Resu lt * Albumin, Random Urine W/Creatinine (03/13/2023 9:38 AM EST) Creatinine, Urine 131.57 mg/dL [facility] Microalbumin Urine 6.0 mg/L [facility] Microalbum Creatinine Ratio Ur 4.5 <30 ug/mg cr [facility] Comment:Albumin/Creatinine R atio Reference Ranges: Normal: < 30 ug/mg creatinine Microalbuminuria: 30 - 300 ug/mg creatinineClinical Albuminuria: > 300 ug/mg creatinine 03/13/2023 9:38 AM EST 03/13/2023 11:25 AM EST Ethel Chase DO LAB URINE ORDERABLES Final R esult [facility] [address] [place] [address] [phone] * HEPATITIS C ANTIBODY RFLX (10/31/2019 9:40 AM EDT) HEPATITIS C ANTIBODY [facility] Comment: Antibodies to HCV not detected; does not exclude early acute HCV infection. 10/31/2019 9:40 AM EDT Ethel Chase DO HISTORICAL/NON ORDERABLE LAB S Final Result [facility] [address] * Colonoscopy (03/03/2019) Colonoscopy follow up in 5 years Historical Provider HEALTH MAINTENANCE Edited Result - Final from Last 3 Months or Most Recently Relevant to Health Maintenance Insurance [facility] Care Teams Laser Operator Relationship Specialty Start Date End Date Ethel Chase DO [address] [place] [phone] PCP - General Family Medicine 10/12/13 Vaishnavi Laird, PharmD [address] [place] [phone] Pharmacist Internal Medicine 02/07/23
--- OUTSIDE RECORDS SUMMARY | 2024-03-31 08:50 | XMS_ITS | Encounter Summary ---
Author Organization [employer] Address [address] [place] [address] [address] [place] [address] Care Team Providers Care Game Farm Supervisor Name Role Phone Ethel Chase Primary Care Provider [phone] PuVaishnavi thorpe PharmD Unavailable [phone] Reason for Visit * Reason Comments Med Refill Encounter Details Date Type Department Care Team (Late st Contact Info) Description 08/10/2022 Refill [facility] [address] [place] [address] [facility] [address] [place] [address] Social History Tobacco Use Types Packs/Day Years [...] Description 04/27/2024 9:00 AM EST Medication Management [facility] [address] [place] [address] Puia, Vaishnavi, PharmD [address] [place] [address] documented as of this encounter Visit Diagnoses Not on filedocumented in this encounter Additional Health Concerns Assessment Noted Time PHQ-9 Depression Total Score: 0 02/08/20 22 10:43 AM EST documented as of this encounter Care Teams Game Farm Supervisor Relationship Specialty Start Date End Date Ethel Chase DO [address] [place], [place] [phone] PCP - General Family Medicine 10/12/13 Vaishnavi Laird PharmD [address] [place], [place] [phone] Pharmacist Internal Medicine 02/07/23 documented as of this encounter
--- OUTSIDE RECORDS SUMMARY | 2024-03-31 08:50 | XMS_ITS | Encounter Summary ---
Author Organization [employer] Address [address] [facility] 7t [place] [address] Care Team Providers Care Executive Wellness Programs Director Name Role Phone Ethel Chase DO Primary Care Provider [phone] Vaishnavi Laird PharmD Unavailable [phone] Reason for Visit * Reason Onset Date Comments Pre-Op 03/23/2024 Encounter Details Date Type Department Care Team (Late st Contact Info) Description 03/23/2024 Telephone [facility] [address] [place] [address] Ethel Chase DO [address] [place] [address] Pre-Op Social History Tobacco Use Types Packs/Day Years [...] encounter Miscellaneous Notes * Telephone Encounter - Matias Crowell - 03/23/2024 11:42 AM EST TC placed to pt . Too soon to schedule pre-op visit . Was asked to contact surgeons office to reschedule surgery . * Telephone Encounter - Yoselin Flaherty - 03/23/2024 9:00 AM EST Date of Surgery: 03/24 Surgical procedure being done: Left knee revision surgery Type of anesthesia: general anesthesia (with block) Lab needed: Yes Include A1c EKG: Yes Surgeon's name: Dave Oro Facility name: [facility] Orthopedic Surgeon's office number: [phone] Surgeon's office fax number: [phone] Contact name (person you spoke with): Trish - Pt requesting reschedule 02/13 appt. Last office note from surgeon requested: Yes Send Message to Venus Crowell documented in this encounter Plan of Treatment Upcoming Encounters Date Type Department Care Team (Late st Contact Info) Description 04/27/2024 9:00 AM EST Medication Management [facility] [address] [place] [address] Vaishnavi Laird PharmD [address] [place] [address] documented as of this encounter Goals Goal Patient Goal Type Associated Problems Recent Progress Patient-Stated? Author Hemoglobin A1c < 7 Result Component 7.1( 10:35 AM EST) No Vaishnavi Laird PharmD Record your blood sugar as directed Result Component No Vaishnavi Laird PharmD documented as of this encounter Visit Diagnoses Not on filedocumented in this encounter Additional Health Concerns Assessment Noted Time PHQ-9 Depression Total Score: 8 10/18/19 24 11:35 AM EDT documented as of this encounter Care Teams Executive Wellness Programs Director Relationship Specialty Start Date End Date Ethel Chase DO [address] [place] [address] PCP - General Family Medicine 10/12/13 Vaishnavi Laird PharmD [address] [place] [phone] Pharmacist Internal Medicine 02/07/23 documented as of this encounter
--- OUTSIDE RECORDS SUMMARY | 2024-03-31 08:50 | XMS_ITS | Encounter Summary ---
Author Organization [employer] Address [address] [facility] 7t [place] [address] Care Team Providers Care Portrait Consultant Name Role Phone ManuelEthel perry Primary Care Provider [phone] Vaishnavi Laird PharmD Unavailable [phone] Encounter Details Date Type Department Care Team (Late st Contact Info) Description 03/26/2024 Orders Only GENERIC EXTERNAL DATA DEPARTMENT Provider, Generic External Data Social History Tobacco Use Types Packs/Day Years [...] Description 04/27/2024 9:00 AM EST Medication Management [facility] [address] [place], [place] [phone] Vaishnavi Laird PharmD [address] [place] [address] documented as of this encounter Goals Goal Patient Goal Type Associated Problems Recent Progress Patient-Stated? Author Hemoglobin A1c < 7 Result Component 7.1( 10:35 AM EST) No Vaishnavi Laird PharmRina Record your blood sugar as directed Result Component No Vaishnavi Laird PharmD documented as of this encounter Procedures Procedure Name Priority Date/Time Associated Diagnosis Comments GLUCOSE, WHOLE BLOOD Routine 03/26/2024 7:26 AM EST BASIC METABOLIC PANEL, FASTING Routine 03/26/2024 5:51 AM EST CBC WITH AUTO DIFFERENTIAL Routine 03/26/2024 5:51 AM EST documented in this encounter Results * (ABNORMAL) Glucose, Whole Blood (03/26/2024 7:26 AM EST) Glucose, Whole Blood 185(H) 60 - 115 mg/dL [facility] Comment:METER #: [id number] 03/26/2024 7:26 AM EST 03/26/2024 7:31 AM EST us Generic External Data Provider LAB BLOOD ORDERAB LES Final Result Performing Organization Address City/[facility]/ZIP Co de Phone Number [facility] [address] [place] [phone] * (ABNORMAL) Basic Metabolic Panel, Fasting (03/26/2024 5:51 AM EST) Sodium 133(L) 135 - 145 mmol/L [facility] Potassium 4.1 3.3 - 5.1 mmol/L [facility] Chloride 101 96 - 108 mmol/L [facility] Carbon Dioxide 24 22 - 29 mmol/L [facility] Anion Gap 12 12 - 20 [facility] Urea Nitrogen (BUN) 15 9 - 16 mg/dL [facility] Creatinine, Serum 0.85 0.5 - 1.4 mg/dL [facility] Creatinine Clr Calc Pharmacy 75.9 [facility] Comment:Provided height and weight: 157.48 cm,114.8 kg.eGFR (calculated from the MDRD study equation) and eCrCl(calculated from the Cockcroft-Gault equation) are based ondifferent parameters and may not yield comparable results.If eCrCl result is absurd, please check patient'sheight/weight. Estimated Glomerular Filt Rate >60 [facility] Comment:Chronic Kidney Disea se: Estimated GFR < 60 mL/min/[id number] Kidney Disease: Estimated GFR < 15 mL/min/1.73m2 Glucose Fasting 192(H) 60 - 99 mg/dL [facility] Comment:A fasting glucose of 126 mg/dl or greater on more than oneoccasion is considered diagnostic of diabetes. Calcium 8.8 8.4 - 10.2 mg/dL [facility] 03/26/2024 5:51 AM EST 03/26/2024 6:30 AM EST us Generic External Data Provider LAB BLOOD ORDERAB LES Final Result Performing Organization Address City/[facility]/ZIP Co de Phone Number [facility] [address] [place] [phone] * (ABNORMAL) CBC auto differential (03/26/2024 5:51 AM EST) White Blood Count 11.8(H) 4.8 - 10.8 X10*3/uL [facility] Red Blood Count 3.48(L) 4.20 - 5.50 X10*6/uL [facility] Hemoglobin 9.5(L) 12.0 - 16.0 g/dl [facility] Hematocrit 29.5(L) 37.0 - 47.0 % [facility] Mean Corpuscular Volume 84.8 80.0 - 98.0 fL [facility] Mean Corpuscular Hemoglobin 27.3 27.0 - 33.0 pg [facility] Mean Corpuscular HGB Conc 32.2 31.0 - 35.0 g/dl [facility] Red Cell Distribution Width 13.9 11.0 - 16.0 % [facility] Platelet Count 255 160 - 400 X10*3/uL [facility] Mean Platelet Volume 9.6 9.4 - 12.3 fL [facility] Neutrophils Percent Auto 69.6 45 - 73 % [facility] Imm Gran Pct Auto 0.5(H) 0.0 - 0.4 % [facility] Lymphocytes Percent Auto 20.7 20 - 40 % [facility] Monocytes Percent Auto 8.3 2 - 11 % [facility] Eosinophils Percent Auto 0.5 0 - 4 % [facility] Basophils Percent Auto 0.4 0 - 2 % [facility] NRBC Pct Auto 0.0 0.0 - 0.2 /100WBC [facility] Neutrophils Absolute Auto 8.2 2.0 - 8.3 x10*3/uL [facility] Imm Gran Abs Auto 0.06(H) 0.00 - 0.03 X10*3/uL [facility] Lymphocytes Absolute Auto 2.4 1.2 - 4.9 X10*3/uL [facility] Monocytes Absolute Auto 1.0 0.1 - 1.2 X10*3/uL [facility] Eosinophils Absolute Auto 0.1 0.0 - 0.4 X10*3/uL [facility] Basophils Absolute Auto 0.1 0.0 - 0.2 X10*3/uL [facility] NRBC Abs Auto 0.000 0.0 - 0.012 X10*3/uL [facility] 03/26/2024 5:51 AM EST 03/26/2024 6:30 AM EST us Generic External Data Provider LAB BLOOD ORDERAB LES Final Result [facility] [address] [place] [phone] documented in this encounter Visit Diagnoses Not on filedocumented in this encounter Additional Health Concerns Assessment Noted Time PHQ-9 Depression Total Score: 8 10/18/19 24 11:35 AM EDT documented as of this encounter Care Teams Portrait Consultant Relationship Specialty Start Date End Date Ethel Chase DO [address] [place] [address] PCP - General Family Medicine 10/12/13 Vaishnavi Laird PharmD [address] [place] [address] Pharmacist Internal Medicine 02/07/23 documented as of this encounter
--- OUTSIDE RECORDS SUMMARY | 2024-03-31 08:50 | XMS_ITS | Encounter Summary ---
Author Organization [employer] Address [address] [place] [address] 7[address] [place] [address] Care Team Providers Care Pot Filler Name Role Phone Ethel Chase DO Primary Care Provider [phone] Vaishnavi Laird PharmD Unavailable Reason for Visit * Reason Comments Med Refill Encounter Details Date Type Department Care Team (Late Contact Info) Description 06/06/2022 Refill [facility] [address] [place] [address] Ethel Chase DO [address] [place] [address] Other chronic pain Social History Tobacco Use [...] PM EDT documented as of this encounter Plan of Treatment Upcoming Encounters Date Type Department Care Team (Late Contact Info) Description 04/27/2024 9:00 AM EST Medication Management [facility] [address] [place] [address] Vaishnavi Laird PharmD [address] [place] [address] documented as of this encounter Visit Diagnoses Diagnosis Other chronic pain documented in this encounter Additional Health Concerns Assessment Noted Time PHQ-9 Depression Total Score: 0 02/08/20 10:43 AM EST documented as of this encounter Care Teams Pot Filler Relationship Specialty Start Date End Date Ethel Chase DO [address] [place] [address] PCP - General Family Medicine 10/12/13 Vaishnavi Laird PharmD [address] [place] [address] Pharmacist Internal Medicine 02/07/23 documented as of this encounter
--- OUTSIDE RECORDS SUMMARY | 2024-03-31 08:50 | XMS_ITS | Encounter Summary ---
Author Organization [email or web address] Address [address] [facility] 7t [place] [address] Care Team Providers Care Sock And Stocking Ironer Name Role Phone Ethel Chase DO Primary Care Provider [phone] Vaishnavi Laird PharmD Unavailable [phone] Reason for Visit * Reason Onset Date Comments Med Refill 03/23/2024 Encounter Details Date Type Department Care Team (Late st Contact Info) Description 03/23/2024 Refill [facility] [address] [place] [address] Ethel Chase DO [address] [place] [address] Other chronic pain Social History Tobacco Use [...] encounter Miscellaneous Notes * Telephone Encounter - Yoselin Flaherty - 03/23/2024 8:59 AM EST TC from pt requesting medication refill. Medications needing refill : oxyCODONE-acetaminophen (Percocet) 7.5-325 MG tablet () To be sent to: [facility] Pharmacy documented in this encounter Plan of Treatment Upcoming Encounters Date Type Department Care Team (Late st Contact Info) Description 04/27/2024 9:00 AM EST Medication Management [facility] [address] [place] [address] Vaishnavi Laird, PharmD [address] [place] [address] documented as of this encounter Goals Goal Patient Goal Type Associated Problems Recent Progress Patient-Stated? Author Hemoglobin A1c < 7 Result Component 7.1( 10:35 AM EST) No Puia Vaishnavi, PharmD Record your blood sugar as directed Result Component No PuiaChristoferVaishnavi, PharmD documented as of this encounter Visit Diagnoses Diagnosis Other chronic pain documented in this encounter Additional Health Concerns Assessment Noted Time PHQ-9 Depression Total Score: 8 10/18/19 24 11:35 AM EDT documented as of this encounter Care Teams Sock And Stocking Ironer Relationship Specialty Start Date End Date Ethel Chase DO [address] [place] [address] PCP - General Family Medicine 10/12/13 Vaishnavi Laird PharmD [address] [place] [address] Pharmacist Internal Medicine 02/07/23 documented as of this encounter
--- OUTSIDE RECORDS SUMMARY | 2024-03-31 08:50 | XMS_ITS | Encounter Summary ---
Author Organization [employer] Address [address] [place] [address] 7t [place] [address] Care Team Providers Care Chip Mixer Name Role Phone Ethel Chase DO Primary Care Provider [phone] PuVaishnavi thorpe PharmD Unavailable [phone] Reason for Visit * Reason Comments Med Refill Encounter Details Date Type Department Care Team (Late Contact Info) Description 10/25/2022 Refill [facility] [address] [place] [address] Eun Ray MD [address] [place] [address] Other chronic pain Social History Tobacco Use [...] Upcoming Encounters Date Type Department Care Team ([facility] Contact Info) Description 04/27/2024 9:00 AM EST Medication Management [facility] MED[facility] [address] [place] [address] Puia, Vaishnavi, PharmD [address] [place] [address] documented as of this encounter Visit Diagnoses Diagnosis Other chronic pain documented in this encounter Additional Health Concerns Assessment Noted Time PHQ-9 Depression Total Score: 0 02/08/20 22 10:43 AM EST documented as of this encounter Care Teams Chip Mixer Relationship Specialty Start Date End Date Ethel Chase DO [address] [place] [address] PCP - General Family Medicine 10/12/13 Vaishnavi Laird PharmD [address] [place] [address] Pharmacist Internal Medicine 02/07/23 documented as of this encounter
--- OUTSIDE RECORDS SUMMARY | 2024-03-31 08:50 | XMS_ITS | Encounter Summary ---
Author Organization [employer] Address [address] [facility] 7t [place] [address] Care Team Providers Care Continuous Linter Drier Operator Name Role Phone ManuelEthel perry Primary Care Provider + [phone] Vaishnavi Laird PharmD Unavailable [phone] Encounter Details Date Type Department Care Team (Late st Contact Info) Description 03/24/2024 Orders Only GENERIC EXTERNAL DATA DEPARTMENT [...] Description 04/27/2024 9:00 AM EST Medication Management [facility] [address] [place], [place] [phone] Vaishnavi Laird PharmD [address] [place], [place] [phone] documented as of this encounter Goals Goal Patient Goal Type Associated Problems Recent Progress Patient-Stated? Author Hemoglobin A1c < 7 Result Component 7.1( 10:35 AM EST) No Vaishnavi Laird, PharmD Record your blood sugar as directed Result Component No Vaishnavi Laird PharmRina documented as of this encounter Procedures Procedure Name Priority Date/Time Associated Diagnosis Comments GLUCOSE, WHOLE BLOOD Routine 03/24/2024 8:09 PM EST XR KNEE 1-2 VIEWS LEFT Routine 03/24/2024 6:30 PM EST GLUCOSE, WHOLE BLOOD Routine 03/24/2024 5:46 PM EST GLUCOSE, WHOLE BLOOD Routine 03/24/2024 10:56 AM EST HEMOGLOBIN + HEMATOCRIT Routine 03/24/2024 10:53 AM EST documented in this encounter Results * (ABNORMAL) Glucose, Whole Blood (03/24/2024 8:09 PM EST) Glucose, Whole Blood 204(H) 60 - 115 mg/dL [facility] Comment:METER #: [id number] 03/24/2024 8:09 PM EST 03/24/2024 8:12 PM EST us Generic External Data Provider LAB BLOOD ORDERAB LES Final Result [facility] [address] [place] [address] [phone] * XR Knee 1-2 Views Left (03/24/2024 6:30 PM EST) Anatomical Region Laterality Modality Lower Extremities, Knee Left Radiogra phic Imaging 03/24/2024 6:30 PM EST Narrative 03/24/2024 6:32 PM EST ? [facility] ?[address] ?[place] [address] ?XRay Report ? Signed ? Patient: Trish Cameron ?MR#: ?? [id number] ? : 1955 ?Acct:[id number] ? Age/Sex: 68 / F ?ADM Date: 03/24/24 ? Loc: HO.S3 ?375-1 ? Attending Dr: Khushi Mathias PA-C ? Ordering Physician: Khushi Mathias PA-C ?? Date of Service: 03/24/24 ?? Procedure(s): XR knee LT 2V ?? Accession Number(s): [id number] ? cc: Ethel Chase DO; Khushi Mathias PA-C ? CLINICAL HISTORY: lt tka ? 2 view left knee ? Comparison: DX - XR KNEE LT 3 - 03/19/24 09:00 EST ?? DX/SR - [...] Adrian Retana MD in OV> ? 03/24/24 183 ? DD/ 1830 ? TD/TT: 03/24/24 1830 ? Global Safety Officer: ? Procedure Note Donmelinterpreter, Image - 03/24/[address] [address] XRay Report Signed Patient: Trish Cameron MMR#: [id number] : 1955cct:[id number] Age/Sex: 68 / FADM Date: 03/24/24 Loc: HO.S3 375-[address]: Khushi Mathias PA-C Ordering Physician: Khushi Mathias PA-C Date of Service: 03/24/24 Procedure(s): XR knee LT 2V Accession Number(s): [id number] cc: Ethel Chase DO; Khushi Mathias PA-C [...] in OV> 03/24/241830 DD/ 29 TD/TT: 03/24/241829 Global Safety Officer: [facility] External Provider IMG XR PROCEDURES Final Result * (ABNORMAL) Glucose, Whole Blood (03/24/2024 5:46 PM EST) Glucose, Whole Blood 226(H) 60 - 115 mg/dL [facility] Comment:METER #: [id number] 03/24/2024 5:46 PM EST 03/24/2024 5:50 PM EST us Generic External Data Provider LAB BLOOD ORDERAB LES Final Result Performing Organization Address City/[facility] Co de Phone Number [facility] [address] [place] [phone] * (ABNORMAL) Glucose, Whole Blood (03/24/2024 10:56 AM EST) Glucose, Whole Blood 210(H) 60 - 115 mg/dL [facility] Comment:METER #: [id number] 03/24/2024 10:5 6 AM EST 03/24/2024 11:00 AM EST us Generic External Data Provider LAB BLOOD ORDERAB LES Final Result Performing Organization Address [facility] de Phone Number [facility] [address] [place] [phone] * Hemoglobin and Hematocrit (03/24/2024 10:53 AM EST) Hemoglobin 12.6 12.0 - 16.0 g/dl [facility] Hematocrit 38.6 37.0 - 47.0 % [facility] 03/24/2024 10:5 3 AM EST 03/24/2024 11:05 AM EST us Generic External Data Provider LAB BLOOD ORDERAB LES Final Result Performing Organization Address [facility] Co de Phone Number [facility] [address] [place] [phone] documented in this encounter Visit Diagnoses Not on filedocumented in this encounter Additional Health Concerns Assessment Noted Time PHQ-9 Depression Total Score: 8 10/18/19 24 11:35 AM EDT documented as of this encounter Care Teams Continuous Linter Drier Operator Relationship Specialty Start Date End Date Ethel Chase DO [address] [place] [address] PCP - General Family Medicine 10/12/13 Vaishnavi aLird PharmD [address] [place] [address] Pharmacist Internal Medicine 02/07/23 documented as of this encounter
--- OUTSIDE RECORDS SUMMARY | 2024-03-31 08:50 | XMS_ITS | Encounter Summary ---
Author Organization [employer] Address [address] [facility] 7t [place] [address] Care Team Providers Care Healthcare Prof Name Role Phone ManuelEthel perry Primary Care Provider + [phone] Vaishnavi Laird PharmD Unavailable [phone] Encounter Details Date Type Department Care Team (Late st Contact Info) Description 03/25/2024 Orders Only GENERIC EXTERNAL DATA DEPARTMENT [...] 04/27/2024 9:00 AM EST Medication Management [facility] [address] [place], [place] [phone] Vaishnavi Laird PharmD [address] [place], [place] [phone] documented as of this encounter Goals Goal Patient Goal Type Associated Problems Recent Progress Patient-Stated? Author Hemoglobin A1c < 7 Result Component 7.1( 10:35 AM EST) No Vaishnavi Laird, PharmD Record your blood sugar as directed Result Component No Vaishnavi Laird PharmRina documented as of this encounter Procedures Procedure Name Priority Date/Time Associated Diagnosis Comments GLUCOSE, WHOLE BLOOD Routine 03/25/2024 8:45 PM EST GLUCOSE, WHOLE BLOOD Routine 03/25/2024 3:45 PM EST GLUCOSE, WHOLE BLOOD Routine 03/25/2024 11:25 AM EST GLUCOSE, WHOLE BLOOD Routine 03/25/2024 7:35 AM EST BASIC METABOLIC PANEL, FASTING Routine 03/25/2024 6:15 AM EST CBC WITH AUTO DIFFERENTIAL Routine 03/25/2024 6:15 AM EST documented in this encounter Results * (ABNORMAL) Glucose, Whole Blood (03/25/2024 8:45 PM EST) Glucose, Whole Blood 172(H) 60 - 115 mg/dL [facility] Comment:METER #: [id number] 03/25/2024 8:45 PM EST 03/25/2024 8:55 PM EST us Generic External Data Provider LAB BLOOD ORDERAB LES Final Result Performing Organization Address [facility]/ZIP Co de Phone Number [facility] [address] [place] [phone] * (ABNORMAL) Glucose, Whole Blood (03/25/2024 3:45 PM EST) Glucose, Whole Blood 152(H) 60 - 115 mg/dL [facility] Comment:METER #: [id number] 3 03/25/2024 3:45 PM EST 03/25/2024 3:49 PM EST us Generic External Data Provider LAB BLOOD ORDERAB LES Final Result Performing Organization Address [facility] Co de Phone Number [facility] [address] [place] [phone] * (ABNORMAL) Glucose, Whole Blood (03/25/2024 11:25 AM EST) Glucose, Whole Blood 209(H) 60 - 115 mg/dL [facility] Comment:METER #: [id number] 3 03/25/2024 11:2 5 AM EST 03/25/2024 11:38 AM EST Generic External Data Provider LAB BLOOD ORDERAB LES Final Result Performing Organization Address [facility] Co de Phone Number [facility] [address] [place] [phone] * (ABNORMAL) Glucose, Whole Blood (03/25/2024 7:35 AM EST) Glucose, Whole Blood 188(H) 60 - 115 mg/dL [facility] Comment:METER #: [id number] 3 03/25/2024 7:35 AM EST 03/25/2024 7:49 AM EST us Generic External Data Provider LAB BLOOD ORDERAB LES Final Result [facility] [address] [place], [place] [phone] * (ABNORMAL) Basic Metabolic Panel, Fasting (03/25/2024 6:15 AM EST) Sodium 135 135 - 145 mmol/L [facility] Potassium 4.6 3.3 - 5.1 mmol/L [facility] Chloride 104 96 - 108 mmol/L [facility] Carbon Dioxide 22 22 - 29 mmol/L [facility] Anion Gap 14 12 - 20 [facility] Urea Nitrogen (BUN) 15 9 - 16 mg/dL [facility] Creatinine, Serum 0.88 0.5 - 1.4 mg/dL [facility] Creatinine Clr Calc Pharmacy 73.4 [facility] Comment:Provided height and weight: 157.48 cm,114.8 kg.eGFR (calculated from the MDRD study equation) and eCrCl(calculated from the Cockcroft-Gault equation) are based ondifferent parameters and may not yield comparable results.If eCrCl result is absurd, please check patient'sheight/weight. Estimated Glomerular Filt Rate >60 [facility] Comment:Chronic Kidney Disea se: Estimated GFR < 60 mL/min/1.34m6Ylxvkl Kidney Disease: Estimated GFR < 15 mL/min/1.73m2 Glucose Fasting 193(H) 60 - 99 mg/dL [facility] Comment:A fasting glucose of 126 mg/dl or greater on more than oneoccasion is considered diagnostic of diabetes. Calcium 9.2 8.4 - 10.2 mg/dL [facility] 03/25/2024 6:15 AM EST 03/25/2024 6:58 AM EST us Generic External Data Provider LAB BLOOD ORDERAB LES Final Result [facility] [address] [place] [phone] [phone] * (ABNORMAL) CBC auto differential (03/25/2024 6:15 AM EST) White Blood Count 14.3(H) 4.8 - 10.8 X10*3/uL [facility] Red Blood Count 3.79(L) 4.20 - 5.50 X10*6/uL [facility] Hemoglobin 10.3(L) 12.0 - 16.0 g/dl [facility] Hematocrit 32.7(L) 37.0 - 47.0 % [facility] Mean Corpuscular Volume 86.3 80.0 - 98.0 fL [facility] Mean Corpuscular Hemoglobin 27.2 27.0 - 33.0 pg [facility] Mean Corpuscular HGB Conc 31.5 31.0 - 35.0 g/dl [facility] Red Cell Distribution Width 13.8 11.0 - 16.0 % [facility] Platelet Count 310 160 - 400 X10*3/uL [facility] Mean Platelet Volume 9.7 9.4 - 12.3 fL [facility] Neutrophils Percent Auto 75.8(H) 45 - 73 % [facility] Imm Gran Pct Auto 0.6(H) 0.0 - 0.4 % [facility] Lymphocytes Percent Auto 15.7(L) 20 - 40 % [facility] Monocytes Percent Auto 7.7 2 - 11 % [facility] Eosinophils Percent Auto 0.0 0 - 4 % [facility] Basophils Percent Auto 0.2 0 - 2 % [facility] NRBC Pct Auto 0.0 0.0 - 0.2 /100WBC [facility] Neutrophils Absolute Auto 10.9(H) 2.0 - 8.3 x10*3/uL [facility] Imm Gran Abs Auto 0.09(H) 0.00 - 0.03 X10*3/uL [facility] Lymphocytes Absolute Auto 2.3 1.2 - 4.9 X10*3/uL [facility] Monocytes Absolute Auto 1.1 0.1 - 1.2 X10*3/uL [facility] Eosinophils Absolute Auto 0.0 0.0 - 0.4 X10*3/uL [facility] Basophils Absolute Auto 0.0 0.0 - 0.2 X10*3/uL [facility] NRBC Abs Auto 0.000 0.0 - 0.012 X10*3/uL [facility] 03/25/2024 6:15 AM EST 03/25/2024 6:58 AM EST us Generic External Data Provider LAB BLOOD ORDERAB LES Final Result Performing Organization Address City/State/[facility] de Phone Number [facility] [address] [place] [phone] documented in this encounter Visit Diagnoses Not on filedocumented in this encounter Additional Health Concerns Assessment Noted Time PHQ-9 Depression Total Score: 8 10/18/19 24 11:35 AM EDT documented as of this encounter Care Teams Healthcare Prof Relationship Specialty Start Date End Date Ethel Chase DO [address] [place] [address] PCP - General Family Medicine 10/12/13 Vaishnavi Laird PharmD [address] [place] [address] Pharmacist Internal Medicine 02/07/23 documented as of this encounter
--- OUTSIDE RECORDS SUMMARY | 2024-03-31 08:50 | XMS_ITS | Encounter Summary ---
Author Organization [employer] Address 75 [facility] 7t [place] [address] Care Team Providers Care Curator Of Manuscripts Name Role Phone Ethel Chase DO Primary Care Provider [phone] Vaishnavi Laird PharmD Unavailable [phone] Reason for Visit * Reason Comments Med Refill Encounter Details Date Type Department Care Team ([facility] st Contact Info) Description 03/23/2024 Refill [facility] [address] [place] [address] Ethel Chase DO [address] [place] [address] Other chronic pain Social History Tobacco Use [...] 04/27/2024 9:00 AM EST Medication Management [facility] [address] [place] [address] Puia, Vaishnavi, PharmD [address] [place] [address] documented as of this encounter Goals Goal Patient Goal Type Associated Problems Recent Progress Patient-Stated? Author Hemoglobin A1c < 7 Result Component 7.1( 10:35 AM EST) No Puia, Vaishnavi, PharmD Record your blood sugar as directed Result Component No Puia, Vaishnavi, PharmD documented as of this encounter Visit Diagnoses Diagnosis Other chronic pain documented in this encounter Additional Health Concerns Assessment Noted Time PHQ-9 Depression Total Score: 8 10/18/19 24 11:35 AM EDT documented as of this encounter Care Teams Curator Of Manuscripts Relationship Specialty Start Date End Date Ethel Chase DO [address] [place] [phone] PCP - General Family Medicine 10/12/13 Puia, Vaishnavi, PharmD [address] [place] [phone] Pharmacist Internal Medicine 02/07/23 documented as of this encounter
--- OUTSIDE RECORDS SUMMARY | 2024-03-31 08:51 | XMS_ITS | Encounter Summary ---
Author Organization [employer] Address [address] [facility] 7t [place] [address] Care Team Providers Care Senior Merchandiser Name Role Phone Ethel Chase Primary Care Provider [phone] Vaishnavi Laird PharmD Unavailable [phone] Encounter Details Date Type Department Care Team (Late Contact Info) Description 02/09/2022 Orders Only [facility]S [address] [place] [address] Sadie Rivera, ANP [address] [place] [address] Social History Tobacco Use Types Packs/Day Years [...] suspected to have Coronavirus/COVID-19? No / Unsure 02/07/2022 8:45 AM EST documented as of this encounter Plan of Treatment Upcoming Encounters Date Type Department Care Team (Late Contact Info) Description 04/27/2024 9:00 AM EST Medication Management [facility] [address] [place] [address] Vaishnavi Laird PharmD [address] [place] [address] documented as of this encounter Visit Diagnoses Not on filedocumented in this encounter Additional Health Concerns Assessment Noted Time PHQ-9 Depression Total Score: 0 02/08/20 22 10:43 AM EST documented as of this encounter Care Teams Senior Merchandiser Relationship Specialty Start Date End Date Ethel Chase DO [address] [place] [address] PCP - General Family Medicine 10/12/13 Vaishnavi Laird PharmD [address] [place] [phone] Pharmacist Internal Medicine 02/07/23 documented as of this encounter
--- OUTSIDE RECORDS SUMMARY | 2024-03-31 08:51 | XMS_ITS | Encounter Summary ---
Author Organization [employer] Address [address] [facility] 7t [place] [address] Care Team Providers Care Montessori Program Director Name Role Phone Ethel Chase DO Primary Care Provider [phone] Vaishnavi Laird PharmD Unavailable [phone] Reason for Visit * Reason Onset Date Comments Med Refill 03/10/2024 Encounter Details Date Type Department Care Team (Late st Contact Info) Description 03/10/2024 Refill [facility] [address] [place] [address] Ethel Chase DO [address] [place] [address] Other chronic pain Social History Tobacco Use [...] * Telephone Encounter - Matias Crowell - 03/10/2024 1:21 PM EST TC from pt requesting medication refill. Medications needing refill : oxyCODONE-acetaminophen (Percocet) 7.5-325 MG tablet To be sent to: [facility] *pt also wanting to schedule HOME HEALTH NURSE [facility]ACTICAL visit documented in this encounter Plan of Treatment Upcoming Encounters Date Type Department Care Team (Late st Contact Info) Description 04/27/2024 9:00 AM EST Medication Management [facility] [address] [place] [address] TwilaiaVaishnavi, PharmD [address] [place] [address] documented as of this encounter Goals Goal Patient Goal Type Associated Problems Recent Progress Patient-Stated? Author Hemoglobin A1c < 7 Result Component 7.1( 10:35 AM EST) No Puia Vaishnavi, PharmD Record your blood sugar as directed Result Component No Puia Vaishnavi, PharmD documented as of this encounter Visit Diagnoses Diagnosis Other chronic pain documented in this encounter Additional Health Concerns Assessment Noted Time PHQ-9 Depression Total Score: 8 10/18/19 24 11:35 AM EDT documented as of this encounter Care Teams Montessori Program Director Relationship Specialty Start Date End Date Ethel Chase DO [address] [place] [address] PCP - General Family Medicine 10/12/13 Vaishnavi Laird PharmD [address] [place] [address] Pharmacist Internal Medicine 02/07/23 documented as of this encounter
--- OUTSIDE RECORDS SUMMARY | 2024-03-31 08:51 | XMS_ITS | Encounter Summary ---
Author Organization [employer] Address [address] [facility] [address]t [place] [address] Care Team Providers Care Master Fisher Name Role Phone ManuelEthel perry Primary Care Provider + [phone] Vaishnavi Laird PharmD Unavailable [phone] Reason for Visit * Reason Comments Med Refill Encounter Details Date Type Department Care Team ([facility] st Contact Info) Description 02/02/2023 Refill [facility] [address] [place] [address] Sadie Rivera, ANP [address] [place] [address] Type 2 diabetes mellitus with other specified complication, unspecified whether oysterman insulin use ([facility]) Social History Tobacco Use Types Packs/Day Years Used Date Smoking Tobacco: Never Smokeless Tobacco: Never Alcohol Use Standard Drinks/Week Comments Yes 0 (1 standard drink = 0.6 oz pur e alcohol) oca Depression Answer Date Recorded Patient Health Questionnaire-9 Score 0 02/07/2022 Housing Stability Answer Date Recorded What is your housing situation today? I have pérez turcios 01/01/[address] you li ve. Do you have problems with any of the following? None of the above 01/01/2023 Food Insecurity Answer Date Recorded Within the past 12 months, y ou worried that your food would run out before you got money to buy more: Never True 12/17/2022 Within the past 12 months,th e food you bought just didn't last and you didn't have enough money to get more: Never True Transportation Answer Date Recorded In the past 12 months, has l ack of transportation kept you from medical appts, meetings, work or from getting things needed for daily living? No 12/17/2022 Utilities Answer Date Recorded In the past 12 months, has t he electric, gas, oil or water company threatened to shut off services in your home? No 12/17/2022 Depression Answer Date Recorded Patient Health Questionnaire-2 [...] Description 04/27/2024 9:00 AM EST Medication Management [facility] [address] [place] [address] Vaishnavi Laird PharmD [address] [place] [address] documented as of this encounter Visit Diagnoses Diagnosis Type 2 diabetes mellitus with other specified complication, unspecified whether oysterman insulin use ([facility]) documented in this encounter Additional Health Concerns Assessment Noted Time PHQ-9 Depression Total Score: 0 02/08/20 22 10:43 AM EST documented as of this encounter Care Teams Master Fisher Relationship Specialty Start Date End Date Ethel Chase DO [address] [place] [address] PCP - General Family Medicine 10/12/13 Vaishnavi Laird PharmD [address] [place] [address] Pharmacist Internal Medicine 02/07/23 documented as of this encounter
--- OUTSIDE RECORDS SUMMARY | 2024-03-31 08:51 | XMS_ITS | Encounter Summary ---
Author Organization [employer]: [employer] Address [address] [facility] 7t [place] [address] Care Team Providers Care Bump Grader Operator Name Role Phone Ethel Chase DO Primary Care Provider [phone] Vaishnavi Laird PharmD Unavailable [phone] Reason for Visit * Reason Onset Date Comments Appointment Request 03/02/2024 Encounter Details Date Type Department Care Team ([facility] st Contact Info) Description 03/02/2024 Telephone [facility] MEDICINE [address] [place] [address] Ethel Chase DO [address] [place], [place] [phone] Appointment Request Social History Tobacco Use Types Packs/Day Years [...] encounter Miscellaneous Notes * Telephone Encounter - Karolina Fam PharmD - 03/03/2024 5:26 PM EST Please assist with reschedule of CDTM visit. * Telephone Encounter - Jose David aWtkins - 03/02/2024 11:14 AM EST Tc from pt canceling appt for tomorrow due to them not feeling well. Pt would like to reschedule. Please contact pt: [phone] (Maori) documented in this encounter Plan of Treatment Upcoming Encounters Date Type Department Care Team (Late st Contact Info) Description 04/27/2024 9:00 AM EST Medication Management [facility] MEDICINE [address] [place], [place] [phone] Vaishnavi Laird, PharmD [address] [place] [address] documented as of this encounter Goals Goal Patient Goal Type Associated Problems Recent Progress Patient-Stated? Author Hemoglobin A1c < 7 Result Component 7.1(12/04/202 4 10:35 AM EST) No Vaishnavi Laird, PharmD Record your blood sugar as directed Result Component No Vaishnavi Laird PharmD documented as of this encounter Visit Diagnoses Not on filedocumented in this encounter Additional Health Concerns Assessment Noted Time PHQ-9 Depression Total Score: 8 10/18/19 24 11:35 AM EDT documented as of this encounter Care Teams Bump Grader Operator Relationship Specialty Start Date End Date Ethel Chase DO [address] [place] [address] PCP - General Family Medicine 10/12/13 Vaishnavi Laird, Zana [address] [place] [address] Pharmacist Internal Medicine 02/07/23 documented as of this encounter
--- OUTSIDE RECORDS SUMMARY | 2024-03-31 08:51 | XMS_ITS | Encounter Summary ---
Author Organization [employer] Address [address] [facility] 7t [place] [address] Care Team Providers Care Hotel Clerk Name Role Phone Ethel Chase Primary Care Provider + [phone] Vaishnavi Laird PharmD Unavailable [phone] Reason for Visit * Reason Onset Date Comments CGM PA for sensors 02/24/2024 Encounter Details Date Type Department Care Team (Late st Contact Info) Description 02/24/2024 Telephone [facility] MEDICINE [address] [place] [address] Susan Guillaume, RN [address] [place] [address] CGM PA for sensors Social History Tobacco Use Types Packs/Day Years [...] encounter Miscellaneous Notes * Telephone Encounter - Susan Guillaume RN - 03/09/2024 10:15 AM EST RN called [facility] pharmacy and confirmed PA is processing for RX. RN was informed RX can be filled and pharmacy will contact patient when ready for p/u. Patient to f/u PRN. * Telephone Encounter - Susan Guillaume RN - 02/24/2024 3:39 PM EST Continuous Glucose Monitor Prior Authorization Documentation: CGM PA initiated for: Freestyle Gerard 2 sensors Insurance: CCA PA form completed and faxed to [phone]. Patient's preferred pharmacy: [facility] 230 [facility] 230 [facility] [id number] CGM PA should be approved by: 03/09/2024 Trish Hunter will not be scheduled with red team nurses for CGM placement/teaching as this is a re-certification. documented in this encounter Plan of Treatment Upcoming Encounters Date Type Department Care Team (Late st Contact Info) Description 04/27/2024 9:00 AM EST Medication Management [facility] MEDICINE [address] [place] [address] Vaishnavi Laird PharmD [address] [place] [address] documented as of this encounter Goals Goal [...] Noted Time PHQ-9 Depression Total Score: 8 10/17/ 24 11:35 AM EDT documented as of this encounter Care Teams Hotel Clerk Relationship Specialty Start Date End Date Ethel Chase DO [address] [place] [phone] PCP - General Family Medicine 10/12/13 Vaishnavi Laird, PharmD [address] [place] [phone] Pharmacist Internal Medicine 02/07/23 documented as of this encounter
--- OUTSIDE RECORDS SUMMARY | 2024-03-31 08:51 | XMS_ITS | Encounter Summary ---
Author Organization [employer] Address [address] [facility] 7t [place] [address] Care Team Providers Care Shucker Name Role Phone Ethel Chase DO Primary Care Provider [phone] Vaishnavi Laird PharmD Unavailable [phone] Reason for Visit * Reason Onset Date Comments Nurse Triage 04/16/2023 Encounter Details Date Type Department Care Team ([facility] st Contact Info) Description 04/16/2023 Telephone [facility] MEDICINE [address] [place] [address] Ethel Chase DO [address] [place] [address] Nurse Triage Social History Tobacco Use Types Packs/Day Years [...] encounter Miscellaneous Notes * Telephone Encounter - Silvia Harley RN - 04/16/2023 5:09 PM EST Triage call regarding message from [facility] see below. Pt answers call , [place] Vehicle Service Agent ID [id number], but, Pt is speaking kazakh well. Pt reports only high BS was over the weekend and it was 355. BS today was 250. Pt reports taking all prescribed medication as ordered. Pt reports, I can manage my blood sugar . Pt has an appt for follow up DM 05/08/23 because Pt canceled 04/05/23 appt . Pt reports only symptom for high blood sugar was some dizziness. Pt is advised to increase fluid intake, water especially when BS is high. Pt is advised not to eat concentrated sweets, Pt did laugh when reviewing this part of home care. Advised to increase fresh vegetables/fruits and try to eat a healthy diet. Pt is advised if any further problem to come to [facility] for provider to see Pt . Pt agrees with this disposition and plan. No further questions offered. Protocol Used: Diabetes - High Blood Sugar (Adult) Protocol-Based Disposition: Home Care Positive Triage Question: * Blood glucose 240 - 300 mg/dL (13.3 - 16.7 mmol/L) * All higher-acuity triage questions were negative Care Advice Discussed: * High Blood Sugar (Hyperglycemia) * Treatment - Liquids * Continue Insulin * Measure and Record Your Blood Glucose * Expected Course * Reasons To Call Back - Blood glucose over 300 mg/dL (16.7 mmol/L), two or more times in a row. - Urine ketones become moderate or large (or more than 1+); if you check blood ketones, blood ketone test is over 1.4 mmol/L - Vomiting lasting over 4 hours or unable to drink any fluids - Rapid breathing occurs - You have more questions - You become worse Tc from [facility] reporting patient has extreme high blood sugars: 355 Saturday Down to the 250 today Advises that her glucose monitor keeps beeping, [facility] Nurse advised that pt refused urgent [place] [facility] visit but was advised to go to the urgent. Please contact pt [phone] Citizen Of [place] Speaker * Telephone Encounter - Netta Armas Cheo - 04/16/2023 4:18 PM EST Tc from [facility] reporting patient has extreme high blood sugars: 355 Saturday Down to the 250 today Advises that her glucose monitor keeps beeping, [facility] Nurse advised that pt refused urgent [place] [facility] [place] visit but was advised to go to the urgent. Please contact pt [phone] Citizen Of [place] Speaker documented in this encounter Plan of Treatment Upcoming Encounters Date Type Department Care Team (Late st Contact Info) Description 04/27/2024 9:00 AM EST Medication Management [facility] MEDICINE [address] [place] [address] Puia, Vaishnavi, PharmD [address] [place] [address] documented as of this encounter Goals Goal [...] documented as of this encounter Care Teams Shucker Relationship Specialty Start Date End Date Ethel Chase DO [address] [place] [address] PCP - General Family Medicine 10/12/13 Vaishnavi Laird, Zana [address] [place] [phone] Pharmacist Internal Medicine 02/07/23 documented as of this encounter
--- OUTSIDE RECORDS SUMMARY | 2024-03-31 08:51 | XMS_ITS | Encounter Summary ---
Author Organization [employer] Address [address] [place] [address] 7t [place] [address] Care Team Providers Care Language Teacher Name Role Phone Ethel Chase DO Primary Care Provider Vaishnavi Laird PharmD Unavailable Reason for Visit * Reason Comments Med Refill Encounter Details Date Type Department Care Team ([facility] st Contact Info) Description 02/07/2022 Refill [facility] MEDICINE [address] [place] [address] Ethel Chase DO [address] [place] [address] Diverticular disease (Primary Dx) Social History Tobacco Use Types Packs/Day Years [...] AM EST documented as of this encounter Miscellaneous Notes * Telephone Encounter - ZEB Valles - 02/09/2022 4:58 PM EST Sent meds per PCP request, did not send oxycodone as was advised this was ok as pended and not needed (or queued to another provider) but did send cipro and metro to [facility] requested. * Telephone Encounter - Susan Guillaume RN - 02/09/2022 3:31 PM EST TC placed to pt [phone] scan showed mild diverticulitis. Pt reports continued symptoms of L lower quadrant pain and diarrhea. Pt reports last diarrhea episode was right before thiscall . Pt denies nausea, vomiting or fevers at this time. Due to pt continuing w/ s/s PCP is going to RX abx to pt. Pt informed she will receive 2 abx (cipro 500mg BID and flagyl 500mg TID) x7 days. Pt informed it is important to finish abx in their entirety even if pt begins to feel better. Pt is requesting medications to be sent to [facility] on [facility] in [facility] she cannot get to [facility] pharmacy before they close. RN will queue medications to PCP. Pt did not have any further questions. * Telephone Encounter - Ethel Chase DO - 02/09/2022 3:04 PM EST Please advise pt that her CT abd showed mild diverticulitis. Will treat with cipro and flagyl if sxare persistent. Thank you. * Telephone Encounter - Susan Guillaume RN - 02/09/2022 1:46 PM EST PCP inquiring if abd/pelvis CT scan results are back yet. RN checked [employer] system and results not yet available. CT was ordered STAT. RN called [facility] radiology who reports they do not have a mainstreaming facilitator on site or Saturday and RN would have to call [facility] at [phone] and [facility] to [facility] to request results to be read. RN called [phone] however phone rang continuously without an automated recording w/ options ora VM. RN returned call to [facility] to inform them no one answered at [facility] and the phone just kept ringing. [facility] confirmed the number is correct and reports they will send a message to [facility] to ask them to interpret the CT scan. RN will check before end of the day for interpretation report. * Telephone Encounter - Arcelia Wylie - 02/08/2022 2:07 PM EST Tc from [facility] requesting lab ordered be refaxed, medical writer refaxed to [phone] * Telephone Encounter - Ethel Chase DO - 02/07/2022 3:51 PM EST Rx already sent. documented in this encounter Plan of Treatment Upcoming Encounters Date Type Department Care Team (Late st Contact Info) Description 04/27/2024 9:00 AM EST Medication Management [facility] MEDICINE [address] [place] [address] Vaishnavi Laird, PharmD [address] [place] [address] documented as of this encounter Visit Diagnoses Diagnosis Diverticular disease- Primary Diverticulosis of colon (without mention of hemorrhage) documented in this encounter Additional Health Concerns Assessment Noted Time PHQ-9 Depression Total Score: 0 02/08/20 10:43 AM EST documented as of this encounter Care Teams Language Teacher Relationship Specialty Start Date End Date Ethel Chase DO [address] [place] [address] PCP - General Family Medicine 10/12/13 PuiaKishasa, PharmD [address] [place] [phone] Pharmacist Internal Medicine 02/07/23 documented as of this encounter
== END 2024-03-31 08:52 | disposition home or self-care (01) ==
PROVIDERS: PCP Family Medicine
DX: Z47.1 Aftercare following joint replacement surgery (principal); Z96.652 Presence of left artificial knee joint
CPT/HCPCS: 99024

== ENCOUNTER → 2024-03-31 08:37 | Outpatient (BNVA) | payer OTHER, SELFPAY | PROVIDERS: PCP Family Medicine | DX: Z47.81 Encounter for orthopedic aftercare following surgical amputation (principal); Z96.652 Presence of left artificial knee joint | CPT/HCPCS: 99212 ==

== ENCOUNTER 2024-04-07 10:22 | Outpatient (REF) | payer OTHER, SELFPAY ==
[2024-04-07 21:59] LABS: Bacterial Vaginosis PCR NEGATIVE (Negative); Candida Group PCR DETECTED (Not Detect); Candida glab krusei PCR NOT DETECTED (Not Detect); Trichomonas vaginalis PCR NOT DETECTED (Not Detect)
== END 2024-04-07 10:23 | disposition home or self-care (01) ==
LOC: HO.LAB 10:22
PROVIDERS: PCP Family Medicine; Visit Provider Advanced Practice Midwife
DX: N89.8 Other specified noninflammatory disorders of vagina (principal)
CPT/HCPCS: 81515; 99397; 99459

== ENCOUNTER 2024-04-07 10:22 | Outpatient (AMB) | payer OTHER, SELFPAY ==
--- NOTE | 2024-04-07 10:28 | A.OFFVIS_ITS ---
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 She is doing well with weatherization technician concerns: Recent knee surgery, and antibiotics, currently feels external itching. Currently not sexually active. Denies any vaginal dryness or irritation. STI t esting offered; she declined. Attempting to eat a healthy diet with calcium and vitamin D and stays active with very little exercise due to recent surgery-using a walker. Last pap smear; 2019, negative. Last mammogram; 2023. Denies any family history of ovarian or colon cancer. FH-breast cancer, brother. [facility] Medical History Arthritis Hypothyroidism Renal calculi Environmental and seasonal allergies Nocturnal hypoxia Abnormal nuclear stress test Diabetes HTN (hypertension) Cardiomyopathy Bilateral nephrolithiasis Retention of urine Acid reflux Surgical History Status post total left knee replacement History of total left knee replacement (TKR) Hx of lithotripsy (2018) History of total right knee replacement (2011) Hx of repair of right rotator cuff (2013) History of cystoscopy Hx of tubal ligation History of hand surgery Family History Brother Breast cancer Social History Household Members: Spouse Household Members Other:: lives w/her grandson Housing: House Are you a primary daycare manager to a significant other at home: Yes (grandson 17 yrs) Do you presently have visiting nurse or other home services: No 75 years or older and lives alone: No Alcohol intake: current Alcohol intake frequency: holidays/special occasions only Comment: post op left knee, WBAT Patient Tobacco Use Status: Never used Tobacco service: No Current occupational status: disabled Current occupation: rt handed Gender identity: Female Female Reproductive History Menstrual Age of Menarche: 12 control method: permanent sterilization Permanent Sterilization: BTL Menopause type: natural Total pregnancies: 3 Full term: 3 Number of Living Children: 3 Date of last pap smear: 09/09/19 (neg pap and hpv) Date of Mammogram: 08/06/23 (Birad 1) Review of Systems Const All systems reviewed & are unremarkable except as noted in HPI and below Reports as per HPI Eyes Reports no additional complaints ENT Reports no additional complaints Card Reports no additional complaints Resp Reports no additional complaints GI Reports as per HPI and Reports no additional complaints Reports as per HPI Musc Reports no additional complaints Skin/Breast Reports as per HPI Neuro Reports no additional complaints Psych Reports no additional complaints Endo Reports no additional complaints Lai/Lymph Reports no additional complaints Aller/Immun Reports no additional complaints Physical Exam Vital Signs: Last Vital Signs BP 134/68 04/07/24 10:30 BMI result Body Mass Index 46.3 Const General: cooperative, healthy appearing, no acute distress, well developed and alert Orientation/consciousness: patient oriented x3 HEENT Head: Yes normal to inspection Eyes General: appearance normal, both eyes and all related structures Neck Neck: Yes normal visual inspection Thyroid: Thyroid normal Chest Chest palpation & inspection: normal inspection of the chest and other (no puckering, dimpling, peau de orange, retraction, discharge, masses) Breast/axilla inspection: normal inspection of the breasts Breast/axilla palpation: normal palpation of the breasts Resp Effort & Inspection: normal respiratory effort GI Inspection: Yes normal to inspection and Yes obesity Palpation (GI): Soft to palpation Rectal Exam - Female: deferred Other: External: mild erythema General: Yes bladder normal to palpation External Female Exam: normal external appearance and normal appearance of the urethra Speculum Exam - Vagina: normal appearance of the vagina, normal palpation, normal vaginal discharge and vagina atrophic Speculum Exam - Cervix: normal appearance of the cervix and normal palpation Bimanual exam- vagina & uterus: normal bimanual exam, normal palpation, uterine size normal, bladder normal to palpation, normal palpation and non-tender Bimanual Exam- Adnexa, other: no masses Skin General skin exam: no rashes or lesions noted Rashes: no rashes Neuro General: patient oriented x3 Cognition (Neuro): normal cognition Extrem General: Yes normal to inspection Psych Attitude: cooperative Thought process: Normal thought process present Assessment & Plan Assessment & Plan (1) Encounter for well woman exam with routine gynecological exam: Code(s): Z01.419 - Encounter for gynecological examination (general) (routine) without abnormal findings Category: Medical (2) Vulvar pruritus: Code(s): L29.2 - Pruritus vulvae Plan: Use of medication topically Rx sent in, await BV panel for results and plan of care. Total time I personally spent on visit and management today: ?5 minutes. Time spent included review of pertinent office notes in the electronic health re cord; performing physical exam, culture samples; discussing diagnosis and plan of care with the patient; documenting the encounter in the EMR. Plan Discussed: Current recommendations for pap smears per ASCCP guidelines. Breast awareness, periodic self breast exams and yearly mammogram. Maintain a healthy lifestyle, well balanced diet including Calcium 1,200 mg and Vitamin D 600 IU daily, and routine exercise. BV panel obtained await results for plan of care. We will try a topical medication to help alleviate her symptoms. Contact the office with any postmenopausal bleeding. Patient verbalizes understanding and agrees to the plan of care. She was given opportunity to ask questions and all questions were answered to the best of my ability. RTO in 1 year for annual weatherization technician exam. This note is constructed using voice recognition software. While every effort has been made to ensure accuracy, energy systems laboratory director errors may have been included. Medications: New clotrimazole-betamethasone 1-0.05 % apply externally a thin coat to the area 1 appl topical BID 7 days 45 grams 0RF itching Coding Level of Care Code Est Pt Level 2 (86486) Est Pt Prev Care >65y(46071) Diagnoses Encounter for well woman exam with routine gynecological exam Z01.419 Vulvar pruritus L29.2
[2024-04-07 10:30] VITALS: BP 134/68; BMI 46.3
--- OUTSIDE RECORDS SUMMARY | 2024-04-07 11:32 | XMS_ITS | Encounter Summary ---
Author Organization [employer] Address [address] [facility] [address] [place] [address] Care Team Providers Care Assurance Analyst Name Role Phone Ethel Chase DO Primary Care Provider [phone] Vaishnavi Laird PharmD Unavailable [phone] Reason for Visit * Reason Comments Med Refill Encounter Details Date Type Department Care Team ([facility] st Contact Info) Description 04/07/2024 Refill [facility] [address] [place] [address] Ethel Chase DO [address] [place] [address] Type 2 diabetes mellitus with other specified complication, unspecified whether intermediate insulin use ([facility]); Chronic gastroesophageal reflux disease Social History Tobacco Use Types Packs/Day Years [...] Description 04/27/2024 9:00 AM EST Medication Management [facility] [address] [place] [address] PuiaVaishnavi, PharmD [address] [place] [address] documented as of this encounter Goals Goal Patient Goal Type Associated Problems Recent Progress Patient-Stated? Author Hemoglobin A1c < 7 Result Component 7.1( 10:35 AM EST) No Puia, Vaishnavi, PharmD Record your blood sugar as directed Result Component No Puia, Vaishnavi, PharmD documented as of this encounter Visit Diagnoses Diagnosis Type 2 diabetes mellitus with other specified complication, unspecified whether terminal operations manager insulin use ([facility]) Chronic gastroesophageal reflux disease documented in this encounter Additional Health Concerns Assessment Noted Time PHQ-9 Depression Total Score: 8 10/18/19 24 11:35 AM EDT documented as of this encounter Care Teams Assurance Analyst Relationship Specialty Start Date End Date Ethel Chase DO [address] [place] [address] PCP - General Family Medicine 10/12/13 Vaishnavi Laird, BrianD [address] [place] [address] Pharmacist Internal Medicine 02/07/23 documented as of this encounter
--- OUTSIDE RECORDS SUMMARY | 2024-04-07 11:32 | XMS_ITS | Encounter Summary ---
Author Organization [employer] Address [address] [place] [address] 7[address] [place] [address] Care Team Providers Care Book Salesman Name Role Phone Ethel Chase DO Primary Care Provider Vaishnavi Laird PharmD Unavailable [phone] Reason for Visit * Reason Comments Med Refill Encounter Details Date Type Department Care Team (Late st Contact Info) Description 06/07/[address] [facility] [address] [place] [address] Ethel Chase DO [address] [place] [address] Other chronic pain Social History Tobacco Use [...] Description 04/27/2024 9:00 AM EST Medication Management [facility] [address] [place] [address] Vaishnavi Laird PharmD [address] [place] [address] documented as of this encounter Visit Diagnoses Diagnosis Other chronic pain documented in this encounter Additional Health Concerns Assessment Noted Time PHQ-9 Depression Total Score: 0 02/08/20 10:43 AM EST documented as of this encounter Care Teams Book Salesman Relationship Specialty Start Date End Date Ethel Chase DO [address] [place] [address] PCP - General Family Medicine 10/12/13 Vaishnavi Laird PharmD [address] [place] [address] Pharmacist Internal Medicine 02/07/23 documented as of this encounter
--- OUTSIDE RECORDS SUMMARY | 2024-04-07 11:32 | XMS_ITS | Encounter Summary ---
Author Organization [employer] Address [address] [place] [address] 7t [place] [address] Care Team Providers Care Med Spec Name Role Phone Ethel Chase DO Primary Care Provider Vaishnavi Laird PharmD Unavailable [phone] Reason for Visit * Reason Comments Med Refill Encounter Details Date Type Department Care Team (Late Contact Info) Description 06/06/2022 Refill [facility] [address] [place] [address] Ethel Chase DO [address] [place] [address] Other chronic pain Social History Tobacco Use [...] Description 04/27/2024 9:00 AM EST Medication Management [facility] [address] [place] [address] Vaishnavi Laird PharmD [address] [place] [address] documented as of this encounter Visit Diagnoses Diagnosis Other chronic pain documented in this encounter Additional Health Concerns Assessment Noted Time PHQ-9 Depression Total Score: 0 02/08/20 10:43 AM EST documented as of this encounter Care Teams Med Spec Relationship Specialty Start Date End Date Ethel Chase DO [address] [place] [address] PCP - General Family Medicine 10/12/13 Vaishnavi Laird PharmD [address] [place] [address] Pharmacist Internal Medicine 02/07/23 documented as of this encounter
--- OUTSIDE RECORDS SUMMARY | 2024-04-07 11:32 | XMS_ITS | Encounter Summary ---
Author Organization [employer] Address [address] [facility] 7t [place] [address] Care Team Providers Care Handstitching Machine Collar Feller Name Role Phone Ethel Chase DO Primary Care Provider [phone] Vaishnavi Laird PharmD Unavailable [phone] Reason for Visit * Reason Comments Med Refill Encounter Details Date Type Department Care Team ([facility] st Contact Info) Description 04/06/2024 Refill [facility] [address] [place] [address] Ethel Chase DO [address] [place] [address] Other chronic pain Social History Tobacco Use [...] encounter Miscellaneous Notes * Telephone Encounter - Suad Wilson RN - 04/06/2024 2:47 PM EST TC to patient, no answer. # not in service, unable to leave . Pt had L TKA revision done 03/24/24. Was seen in surgeons office 03/31/24. No indication from note whether surgeons is prescribing postop pain management. Pt cancelled [employer] 03/03/24 and has not rescheduled. documented in this encounter Plan of Treatment Upcoming Encounters Date Type Department Care Team (Late st Contact Info) Description 04/27/2024 9:00 AM EST Medication Management [facility] [address] [place] [address] Puia, Vaishnavi, PharmD [address] [place] [address] documented as of this encounter Goals Goal [...] documented as of this encounter Care Teams Handstitching Machine Collar Feller Relationship Specialty Start Date End Date Ethel Chase DO [address] [place] [address] PCP - General Family Medicine 10/12/13 Vaishnavi Laird PharmD [address] [place] [address] Pharmacist Internal Medicine 02/07/23 documented as of this encounter
--- OUTSIDE RECORDS SUMMARY | 2024-04-07 11:32 | XMS_ITS | Encounter Summary ---
Author Organization [employer] Address [address] [facility] 7t [place] [address] Care Team Providers Care Sheet Metal Former Name Role Phone Ethel Chase DO Primary Care Provider [phone] Vaishnavi Laird PharmD Unavailable [phone] Reason for Visit * Reason Onset Date Comments Pre op 01/27/2024 Encounter Details Date Type Department Care Team ([facility] st Contact Info) Description 01/27/2024 Telephone [facility] [address] [place] [address] Ethel Chase DO [address] [place] [address] Pre op Social History Tobacco Use Types [...] op on 02/14/24 at 02:15PM. Sujata at [facility] [place] stated she will be contacting pt to provide appointment details. Reminder letter sent via mail Date of Surgery: 03/24/24 Surgical procedure being done: left knee revision surgery Type of anesthesia: general anesthesia with block Lab needed: Yes include A1c EKG: Yes Surgeon's name: Dr Oro Facility name: [facility] [place] Orthopedic Surgeon's office number: [phone] Surgeon's office fax number: [phone] Contact name (person you spoke with): Sujata Last office note from surgeon requested: Yes Send Message to Venus Hensley and Matias Crowell documented in this encounter Plan of Treatment Upcoming Encounters Date Type Department Care Team ([facility] st Contact Info) Description 04/27/2024 9:00 AM EST Medication Management [facility] [address] [place] [address] Vaishnavi Laird, PharmD [address] [place], [place] [id number] documented as of this encounter Goals Goal [...] documented as of this encounter Care Teams Sheet Metal Former Relationship Specialty Start Date End Date Ethel Chase DO [address] [place] [address] PCP - General Family Medicine 10/12/13 Vaishnavi Laird PharmD [address] [place] [address] Pharmacist Internal Medicine 02/07/23 documented as of this encounter
--- OUTSIDE RECORDS SUMMARY | 2024-04-07 11:32 | XMS_ITS | Clinical Summary ---
Author Organization [employer] Address [address] [place] [address] Care Team Providers Care Automatic Driller And Reamer Name Role Phone Ethel Chase Primary Care Provider Vaishnavi Laird PharmD Unavailable [phone] Allergies Active Allergy Reactions Criticality Noted [...] FOR ANXEITY 023 Active Continuous Blood Gluc Manager Game (FreeStyle Gerard 2 [place]) deviceIndications: Poorly controlled diabetes mellitus (CMS/HCC) Use [...] mellitus with other specified complication, unspecified whether jail insulin use ([facility]) TAKE 1 TABLET BY MOUTH EVERY EVENING [...] complication, without long-term current use of insulin ([facility]) USE TO TEST BLOOD SUGAR TWICE DAILY [...] complication, without long-term current use of insulin ([facility]) Use to inject insulin 1 times daily 100 each 3 Active insulin degludec (Tresiba FlexTouch) 100 UNIT/ML injectionIndicatio ns:Type 2 diabetes mellitus without complication, without long-term current use of insulin ([facility]) Inject 32 units subQ once daily at [...] Encounters Date Type Department Care Team Description 04/07/2024 Refill [facility] [address] [place] [address] Ethel Chase, Type 2 diabetes mellitus with other specified complication, unspecified whether jail insulin use ([facility]); Chronic gastroesophageal reflux disease 04/06/2024 Refill [facility] [address] [place] [address] Ethel Chase DO Other chronic pain 03/26/2024 Orders Only GENERIC EXTERNAL DATA DEPARTMENT Provider, Generic External Data 03/25/2024 Orders Only GENERIC EXTERNAL DATA DEPARTMENT Provider, Generic External Data 03/24/2024 Orders Only GENERIC EXTERNAL DATA DEPARTMENT Provider, Generic External Data 03/23/2024 Refill [facility] [address] [place] [address] Ethel Chase, Other chronic pain 03/23/2024 Telephone [facility] [place] [address] Ethel Chase, Pre-Op 03/23/2024 Refill [facility] [address] [place] [address] Ethel Chase, Other chronic pain 03/10/2024 Refill [facility] [address] [place], [place] [address] Ethel Chase, Other chronic pain 03/02/2024 Telephone [facility] [place] [address] Ethel Chase DO Appointment Request 02/24/2024 Telephone [facility] [address] [place], [place] [address] Susan Guillaume, RN CGM PA for sensors 02/14/2024 Telephone [facility] [place] [address] Ethel Chase, No Show 02/10/2024 [place] [address] Ethel Chase DO Other chronic pain 02/05/2024 Refill [facility] [address] [place], [place] [address] Ethel Chase, Constipation, unspecified constipation type; Osteopenia, unspecified location 01/30/2024 Telephone [facility] [place] [address] Dixon Knutson MA Chart Prep 01/29/2024 10:45 AM EST Office Visit [facility] [place] [address] Ethel Chase, Type 2 diabetes mellitus without complication, without long-term current use of insulin ([facility]) (Primary Dx); Essential hypertension; Other hyperlipidemia; Fatty liver; Major depression, recurrent, chronic (CMS/HCC); Mild persistent asthma without complication; Other specified hypothyroidism; Other cardiomyopathy (CMS/HCC); Tremor of right hand; Nephrolithiasis; Sleep-disordered breathing; Forgetfulness; Abnormal CT of the head; Chronic diarrhea; Chronic bilateral low back pain, unspecified whether sciatica present; Chronic pain of left knee; Healthcare maintenance 01/29/2024 Travel 01/27/2024 Telephone [facility] [address] [place] [address] Ethel Chase, Pre op 01/15/2024 Patient Outreach [facility] [address] [place] [address] Ethel Chase DO Pre-visit Planning (SDOH screening negative and tobacco screening negative) 01/10/2024 Refill [facility] [address] [place] [address] Ethel Chase, Other chronic pain from Last 3 Months Immunizations Name Administration [...] Bivalent 11/26/2021 Pfizer Covid-19 Vaccine 12+ 12/26/2023, Pfizer Covid-19 Vaccine 12+ Bivalent 02/07/2022 Pneumococcal [...] Description 04/27/2024 9:00 AM EST Medication Management [facility] [address] [place] [address] Vaishnavi Laird, PharmD [address] [place] [address] Health Maintenance Due Date Last Done Comments [...] 10/18/2023, 10/18/19 24 Lipid Panel 11/10/2024 11/11/2023, 06, 10/28/2020 SDOH Screening 01/14/2025 01/15/2024 Alcohol/Substance Use Screening 01/28/2025 01/29/2024 Tobacco Screening 01/28/2025 01/29/2024 Mammogram 08/05/2025 08/06/2023, 05/10/2022, 07/03/2022, Additional history exists Pneumococcal Vaccine: 50+ [...] directed Result Component No Vaishnavi Laird PharmD Procedures Procedure Name Priority Date/Time Associated Diagnosis [...] without long-term current use of insulin (CMS/HCC) LIPID PANEL, STANDARD Routine 11/11/2023 9:05 AM [...] of8 resultswithin the time period is included. Pathologist [facility] Glucose, Whole Blood 185(H) 60 - 115 mg/dL [facility] Comment:METER #: [id number] 03/26/2024 7:26 AM EST 03/26/2024 7:31 AM EST us Generic External Data Provider LAB BLOOD ORDERAB LES Final Result [facility] [address] [place] [phone] * (ABNORMAL) Basic Metabolic Panel, Fasting (03/26/2024 5:51 AM EST) Only the most recent of2 resultswithin the time period is included. Pathologist [facility] Sodium 133(L) 135 - 145 mmol/L [facility] Potassium 4.1 3.3 - 5.1 mmol/L [facility] Chloride 101 96 - 108 mmol/L [facility] Carbon Dioxide 24 22 - 29 mmol/L [facility] Anion Gap 12 12 - 20 [facility] Urea Nitrogen (BUN) 15 9 - 16 mg/dL [facility] Creatinine, Serum 0.85 0.5 - 1.4 mg/dL [facility] Creatinine Clr Calc Pharmacy 75.9 [facility] Comment:Provided height and weight: 157.48 cm,114.8 kg.eGFR (calculated from the MDRD study equation) and eCrCl(calculated from the Cockcroft-Gault equation) are based ondifferent parameters and may not yield comparable results.If eCrCl result is absurd, please check patient'sheight/weight. Estimated Glomerular Filt Rate >60 [facility] Comment:Chronic Kidney Disea se: Estimated GFR < 60 mL/min/1.02j1Kvaqdl Kidney Disease: Estimated GFR < 15 mL/min/1.73m2 Glucose Fasting 192(H) 60 - 99 mg/dL [facility] Comment:A fasting glucose of 126 mg/dl or greater on more than oneoccasion is considered diagnostic of diabetes. Calcium 8.8 8.4 - 10.2 mg/dL [facility] 03/26/2024 5:51 AM EST 03/26/2024 6:30 AM EST us Generic External Data Provider LAB BLOOD ORDERAB LES Final Result [facility] [address] [place] [phone] * (ABNORMAL) CBC auto differential (03/26/2024 5:51 AM EST) Only the most recent of2 resultswithin the time period is included. White Blood Count 11.8(H) 4.8 - 10.8 X10*3/uL [facility] Red Blood Count 3.48(L) 4.20 - 5.50 X10*6/uL [facility] Hemoglobin 9.5(L) 12.0 - 16.0 g/dl [facility] Hematocrit 29.5(L) 37.0 - 47.0 % [facility] Mean Corpuscular Volume 84.8 80.0 - 98.0 fL [facility] Mean Corpuscular Hemoglobin 27.3 27.0 - 33.0 pg [facility] Mean Corpuscular HGB Conc 32.2 31.0 - 35.0 g/dl [facility] Red Cell Distribution Width 13.9 11.0 - 16.0 % [facility] Platelet Count 255 160 - 400 X10*3/uL [facility] Mean Platelet Volume 9.6 9.4 - 12.3 fL [facility] Neutrophils Percent Auto 69.6 45 - 73 % [facility] Imm Gran Pct Auto 0.5(H) 0.0 - 0.4 % [facility] Lymphocytes Percent Auto 20.7 20 - 40 % [facility] Monocytes Percent Auto 8.3 2 - 11 % [facility] Eosinophils Percent Auto 0.5 0 - 4 % [facility] Basophils Percent Auto 0.4 0 - 2 % [facility] NRBC Pct Auto 0.0 0.0 - 0.2 /100WBC [facility] Neutrophils Absolute Auto 8.2 2.0 - 8.3 x10*3/uL [facility] Imm Gran Abs Auto 0.06(H) 0.00 - 0.03 X10*3/uL [facility] Lymphocytes Absolute Auto 2.4 1.2 - 4.9 X10*3/uL [facility] Monocytes Absolute Auto 1.0 0.1 - 1.2 X10*3/uL [facility] Eosinophils Absolute Auto 0.1 0.0 - 0.4 X10*3/uL [facility] Basophils Absolute Auto 0.1 0.0 - 0.2 X10*3/uL [facility] NRBC Abs Auto 0.000 0.0 - 0.012 X10*3/uL [facility] 03/26/2024 5:51 AM EST 03/26/2024 6:30 AM EST us Generic External Data Provider LAB BLOOD ORDERAB LES Final Result [facility] [address] [place] [address], [place] [phone] * XR Knee 1-2 Views Left (03/24/2024 6:30 PM EST) Anatomical Region Laterality Modality Lower Extremities, Knee Left Radiogra phic Imaging 03/24/2024 6:30 PM EST Narrative 03/24/2024 6:32 PM EST ? [facility] ?[address] ?[place] [address] ?XRay Report ? Signed ? Patient: Trish Cameron ?MR#: ?? [id number] ? : 1955 ?Acct:[id number] ? Age/Sex: 68 / F ?ADM Date: 03/24/24 ? Loc: HO.S3 ?375-1 ? Attending Dr: Khushi Mathias PA-C ? Ordering Physician: Khushi Mathias PA-C ?? Date of Service: 03/24/24 ?? Procedure(s): XR knee LT 2V ?? Accession Number(s): [id number] ? cc: Ethel Chase DO; Khushi Mathias PA-C ? CLINICAL HISTORY: lt tka ? 2 view left knee ? Comparison: DX - XR KNEE LT 3V - 03/19/24 09:00 EST ?? DX/SR - XR KNEE RT 3V - 07/01/23 10:50 EDT ?? DX/SR - XR KNEE LT - 07/01/23 10:50 EDT ? Findings: ?? [...] DD/ 1830 ? TD/TT: 03/24/24 1830 ? Pecan Grower: ? Procedure Note Carito, Image - 03/24/[address] [address] XRay Report Signed Patient: Trish Cameron [facility]#: [id number] : 6Acct:[id number] Age/Sex: 68 / FADM Date: 03/24/24 Loc: [facility] 375-[address]: Khushi Mathias PA-C Ordering Physician: Khushi Mathias PA-C Date of Service: 03/24/24 Procedure(s): XR knee LT 2V Accession Number(s): [id number] cc: Ethel Chase Ta-Mara PA-C CLINICAL HISTORY: lt tka 2 view [...] signed by Adrian Retana MD in OV> 03/24/24 1831 DD/ 183 TD/TT: 03/24/24 183 Pecan Grower: us [facility] External Provider IMG XR PROCEDURES Final Result * Hemoglobin and Hematocrit (03/24/2024 10:53 AM EST) Hemoglobin 12.6 12.0 - 16.0 g/dl [facility] Hematocrit 38.6 37.0 - 47.0 % [facility] 03/24/2024 10:5 3 AM EST 03/24/2024 11:05 AM EST Generic External Data Provider LAB BLOOD ORDERAB LES Final Result [facility] [address] [place], [place] [phone] * (ABNORMAL) POCT glycosylated hemoglobin (Hgb A1c) (01/29/2024 10:35 AM EST) Hemoglobin A1C 7.1(A) 4.0 - 6.0 % QC Media Lot # [id number] Lot# Expiration Date , Blood Capillary blood specimen / Unknown 01/29/2024 10:35 AM EST Ethel Salvatore DO POINT OF CARE TEST ENTER/MARGARITA T ORDERABLES Final Result * (ABNORMAL) POCT glucose manually resulted (01/29/2024 10:34 AM EST) Glucose Blood, POC 211(A) 60 - 200 mg/dL [employer] Media Lot # [id number] Lot# Expiration Date 172,025 Blood Capillary blood specimen / Unknown 01/29/2024 10:34 AM EST Ethel Jurakosuamabel DO POINT OF CARE TEST ENTER/MARGARITA T ORDERABLES Final Result * Lipid Panel, Standard (11/11/2023 9:05 AM EDT) Triglycerides 128 <150 mg/dL [facility] Comment:Desirable Triglyceri de: less than 150 mg/dLBorderline High Triglyceride 150-199 mg/dLHigh Triglyceride: 200-499 mg/dLVery High Triglyceride: greater than or equal to 5OO mg/dL Cholesterol 108 <200 mg/dL [facility] Comment:Desirable Cholestero l: less than 200 mg/dLBorderline High Cholesterol: 200-239 mg/dLHigh Cholesterol: greater than 239 mg/dL LDL Cholesterol Calculated 42 <100 mg/dL [facility] Comment:Desirable LDL: less than 100 mg/dLNear Optimal/Above Optimal LDL: 110- 129 mg/dLBorderline High LDL: 130-159 mg/dLHigh LDL: 160-189 mg/dLVery High LDL: greater than or equal to 190 mg/dL HDL Cholesterol 41 >40 mg/dL [facility] Comment:Desirable HDL: great er than 40 mg/dL Note: This HDL assay may give artificially low results in patients with liver disease. Blood Venous blood specimen / Unknown 11/11/2023 9:05 AM EDT 11/11/2023 11:33 AM EDT us Ethel Salvatore DO LAB BLOOD ORDERABLES Final R esult [facility] [address] [place] [address] [phone] * BI Mammogram Screening Tomosynthesis Bilateral (08/06/2023 11:15 AM EDT) Anatomical Region Laterality Modality Breast Bilateral Mammography 08/06/2023 11:1 5 AM EDT Narrative 09/05/2023 9:40 AM EDT ? [facility] ? [address] ?[place] [address] ? Mammography Report ? Signed ? Patient: Trish Cameron ?MR#: ?? [id number] ? : 1955 ?Acct:[id number] ? Age/Sex: 67 / F ?ADM Date: 08/06/23 ? Loc: HO.MAMMO ? Attending Dr: Ethel Chase DO ? Ordering Physician: Ethel Chase DO ?Results: 1N ?? egative ? Date of Service: 08/06/23 ?Follow Up: 1 Year From Orig ?? inal Mammogram ? Procedure(s): MM tomosynthesis screening BI ?? Accession Number(s): [id number] ? cc: Ethel Chase DO ? EXAMINATION: ?? MM SCREENING DIGITAL BREAST TOMOSYNTHESIS, BILATERAL ? CLINICAL INFORMATION: ? Screening. Asymptomatic. ? COMPARISON: ?? Mammography: This study is compared with prior exams dating back to ?? 2018. ? TECHNIQUE: ?? Digital breast tomosynthesis is [...] 0936 ? DD/ 1115 ? TD/TT: ? Pecan Grower: ? Procedure Note Carito, Alek - 09/05/2023 [facility] [address] [place] [address] [address]. [place], [place] [address] Mammography Report Signed Patient: Trish Cameron MMR#: [id number] : 6Acct:[id number] Age/Sex: 67 / FADM Date: 08/06/23 Loc: MAMMO Attending Dr: Ethel Chase DO Ordering Physician: Ethel Chaseults: 1N egative Date of Service: 08/06/23Follow Up: 1 Year From Orig ina Mammogram Procedure(s): MM tomosynthesis screening BI Accession Number(s): [id number] cc: Ethel Chase DO EXAMINATION: MM SCREENING [...] in OV> 09/05/23 0936 DD/ 1115 TD/TT: Pecan Grower: us Ethle Chase DO IMG BI PROCEDURES Final Resu lt * Albumin, Random Urine W/Creatinine (03/13/2023 9:38 AM EST) Creatinine, Urine 131.57 mg/dL [facility] Microalbumin Urine 6.0 mg/L [facility] Microalbum Creatinine Ratio Ur 4.5 <30 ug/mg cr [facility] Comment:Albumin/Creatinine R atio Reference Ranges: Normal: < 30 ug/mg creatinine Microalbuminuria: 30 - 300 ug/mg creatinineClinical Albuminuria: > 300 ug/mg creatinine 03/13/2023 9:38 AM EST 03/13/2023 11:25 AM EST Ethel Chase DO LAB URINE ORDERABLES Final R esult Performing Organization Address City/[facility]/ZIP Co de Phone Number [facility] [address] [place] [address] [phone] * HEPATITIS C ANTIBODY RFLX (10/31/2019 9:40 AM EDT) Pathologist [facility] HEPATITIS C ANTIBODY NONREACTIVE NONREACTIVE [facility] Comment: Antibodies to HCV not detected; does not exclude early acute HCV infection. 10/31/2019 9:40 AM EDT Ethel Chase DO HISTORICAL/NON ORDERABLE LAB S Final Result Performing Organization Address [facility] [[email or web address]] Co de Phone Number [facility] [address] [place] [address], * Colonoscopy (03/03/2019) Pathologist [facility] Colonoscopy follow up in 5 years Historical Provider HEALTH MAINTENANCE Edited Result - Final from Last 3 Months or Most Recently Relevant to Health Maintenance Insurance [facility] Care Teams Automatic Driller And Reamer Relationship Specialty Start Date End Date Ethel Chase DO [address] [place] [phone] PCP - General Family Medicine 10/12/13 Vaishnavi Laird PharmD [address] [place] [phone] Pharmacist Internal Medicine 02/07/23
--- OUTSIDE RECORDS SUMMARY | 2024-04-07 11:32 | XMS_ITS | Encounter Summary ---
Author Organization [employer] Address [address] [place] [address] 7t [place] [address] Care Team Providers Care Outside Sales Associate Name Role Phone Ethel Chase DO Primary Care Provider [phone] PuVaishnavi thorpe PharmD Unavailable [phone] Reason for Visit * Reason Comments Med Refill Encounter Details Date Type Department Care Team (Late st Contact Info) Description 04/06/2022 Refill [facility] [address] [place] [address] Ethel Chase DO [address] [place] [address] Other chronic pain Social History Tobacco Use [...] 9:00 AM EST Medication Management [facility] [address] [place] [address] Puia, Vaishnavi, PharmD [address] [place] [address] documented as of this encounter Visit Diagnoses Diagnosis Other chronic pain documented in this encounter Additional Health Concerns Assessment Noted Time PHQ-9 Depression Total Score: 0 02/08/20 22 10:43 AM EST documented as of this encounter Care Teams Outside Sales Associate Relationship Specialty Start Date End Date Ethel Chase DO [address] [place], [place] [phone] PCP - General Family Medicine 10/12/13 Vaishnavi Laird PharmD [address] [place], [place] [phone] Pharmacist Internal Medicine 02/07/23 documented as of this encounter
--- OUTSIDE RECORDS SUMMARY | 2024-04-07 11:32 | XMS_ITS | Encounter Summary ---
Author Organization [employer] Address [address] [facility] 7t [place] [address] Care Team Providers Care Digital Tech Name Role Phone MaunelEthel perry Primary Care Provider [phone] Vaishnavi Laird PharmD Unavailable [phone] Encounter Details Date Type Department Care [...] Description 04/27/2024 9:00 AM EST Medication Management [facility] [address] [place], [place] [phone] Vaishnavi Laird PharmD [address] [place], [place] [phone] documented as of this encounter Goals Goal [...] Whole Blood 204(H) 60 - 115 mg/dL [facility] Comment:METER #: [id number] 03/24/2024 8:09 PM EST 03/24/2024 8:12 PM EST us Generic External Data Provider LAB BLOOD ORDERAB LES Final Result [facility] [address] [place] [address] [phone] * XR Knee 1-2 Views Left (03/24/2024 6:30 PM EST) Anatomical Region Laterality Modality Lower Extremities, Knee Left Radiogra phic Imaging 03/24/2024 6:30 PM EST Narrative 03/24/2024 6:32 PM EST ? [facility] ?[address] ?[place] [address] ?XRay Report ? Signed ? Patient: Trish Cameron ?MR#: ?? [id number] ? : 1955 ?Acct:[id number] ? Age/Sex: 68 / F ?ADM Date: 03/24/24 ? Loc: HO.S3 ?375-1 ? Attending Dr: Khushi Mathias PA-C ? Ordering Physician: Khushi Mathias PA-C ?? Date of Service: 03/24/24 ?? Procedure(s): XR knee LT 2V ?? Accession Number(s): [id number] ? cc: Ethel Chase DO; Khushi Mathias [...] DD/ 1830 ? TD/TT: 03/24/24 1830 ? Post Closing Specialist: ? Procedure Note Donmelinterpreter, Image - 03/24/[address] [address] XRay Report Signed Patient: Trish Cameron MMR#: [id number] : 1955cct:[id number] Age/Sex: 68 / FADM Date: 03/24/24 Loc: HO.S3 375-[address]: Khushi Mathias PA-C Ordering Physician: Khushi Mathias PA-C Date of Service: 03/24/24 Procedure(s): XR knee LT 2V Accession Number(s): [id number] cc: Ethel Chase DO; Khushi Mathias PA-C [...] in OV> 03/24/241830 DD/ 29 TD/TT: 03/24/241829 Post Closing Specialist: [employer] External Provider IMG XR PROCEDURES Final Result * (ABNORMAL) Glucose, Whole Blood (03/24/2024 5:46 PM EST) Glucose, Whole Blood 226(H) 60 - 115 mg/dL [facility] Comment:METER #: [id number] 03/24/2024 5:46 PM EST 03/24/2024 5:50 PM EST us Generic External Data Provider LAB BLOOD ORDERAB LES Final Result Performing Organization Address City/[facility] Co de Phone Number [facility] [address] [place] [phone] * (ABNORMAL) Glucose, Whole Blood (03/24/2024 10:56 AM EST) Glucose, Whole Blood 210(H) 60 - 115 mg/dL [facility] Comment:METER #: [id number] 03/24/2024 10:5 6 AM EST 03/24/2024 11:00 AM EST us Generic External Data Provider LAB BLOOD ORDERAB LES Final Result Performing Organization Address [facility] de Phone Number [facility] [address] [place] [phone] * Hemoglobin and Hematocrit (03/24/2024 10:53 AM EST) Hemoglobin 12.6 12.0 - 16.0 g/dl [facility] Hematocrit 38.6 37.0 - 47.0 % [facility] 03/24/2024 10:5 3 AM EST 03/24/2024 11:05 AM EST us Generic External Data Provider LAB BLOOD ORDERAB LES Final Result Performing Organization Address [facility] Co de Phone Number [facility] [address] [place] [phone] documented in this encounter Visit Diagnoses Not on filedocumented in this encounter Additional Health Concerns Assessment Noted Time PHQ-9 Depression Total Score: 8 10/18/19 24 11:35 AM EDT documented as of this encounter Care Teams Digital Tech Relationship Specialty Start Date End Date Ethel Chase DO [address] [place] [address] PCP - General Family Medicine 10/12/13 Vaishnavi Laird PharmD [address] [place] [address] Pharmacist Internal Medicine 02/07/23 documented as of this encounter
--- OUTSIDE RECORDS SUMMARY | 2024-04-07 11:32 | XMS_ITS | Encounter Summary ---
Author Organization [employer] Address [address] [place] [address] 7[address] [place] [address] Care Team Providers Care Florist Helper Name Role Phone Ethel Chase Primary Care Provider [phone] PuVaishnavi thorpe PharmD Unavailable [phone] Reason for Visit * Reason Comments Med Refill Encounter Details Date Type Department Care Team (Late st Contact Info) Description 08/10/2022 Refill [facility] [address] [place] [address] [facility] [address] [place] [address] Social History Tobacco Use Types Packs/Day Years [...] 04/27/2024 9:00 AM EST Medication Management [facility] [address] [place] [address] Puia, Vaishnavi, PharmD [address] [place] [address] documented as of this encounter Visit Diagnoses Not on filedocumented in this encounter Additional Health Concerns Assessment Noted Time PHQ-9 Depression Total Score: 0 02/08/20 22 10:43 AM EST documented as of this encounter Care Teams Florist Helper Relationship Specialty Start Date End Date Ethel Chase DO [address] [place], [place] [phone] PCP - General Family Medicine 10/12/13 Vaishnavi Laird PharmD [address] [place], [place] [phone] Pharmacist Internal Medicine 02/07/23 documented as of this encounter
--- OUTSIDE RECORDS SUMMARY | 2024-04-07 11:32 | XMS_ITS | Encounter Summary ---
Author Organization [employer] Address 75 [facility] 7t [place] [address] Care Team Providers Care Lehr Attendant Name Role Phone Ethel Chase DO Primary Care Provider +1- [phone] Vaishnavi Laird PharmD Unavailable [phone] Reason for Visit * Reason Comments Med Refill Encounter Details Date Type Department Care Team ([facility] st Contact Info) Description 03/23/2024 Refill [facility] MEDICINE [address] [place] [address] Ethel Chase DO [address] [place] [address] Other chronic pain Social History Tobacco Use [...] Description 04/27/2024 9:00 AM EST Medication Management [facility] [address] [place] [address] Puia, Vaishnavi, PharmD [address] [place] [address] documented as of this encounter Goals Goal [...] documented as of this encounter Care Teams Lehr Attendant Relationship Specialty Start Date End Date Ethel Chase DO [address] [place] [address] [phone] PCP - General Family Medicine 10/12/13 Puia, Vaishnavi, PharmD [address] [place] [address] [phone] Pharmacist Internal Medicine 02/07/23 documented as of this encounter
--- OUTSIDE RECORDS SUMMARY | 2024-04-07 11:33 | XMS_ITS | Encounter Summary ---
Author Organization [employer] Address 75 [facility] 7t [place] [address] Care Team Providers Care Spoon Maker Name Role Phone Ethel Chase Primary Care Provider +1- [phone] Vaishnavi Laird PharmD Unavailable [phone] Encounter Details Date Type Department Care Team (Late Contact Info) Description 02/09/2022 Orders Only [facility] [address] [place] [address] Sadie Rivera, ANP 230 [place] [address] Social History Tobacco Use Types Packs/Day Years [...] 9:00 AM EST Medication Management [facility] MEDICINE 230 [place] [address] Vaishnavi Laird PharmD 230 [place] [address] documented as of this encounter Visit Diagnoses Not on filedocumented in this encounter Additional Health Concerns Assessment Noted Time PHQ-9 Depression Total Score: 0 02/08/20 22 10:43 AM EST documented as of this encounter Care Teams Spoon Maker Relationship Specialty Start Date End Date Ethel Chase DO [address] [place] [address] PCP - General Family Medicine 10/12/13 Vaishnavi Laird PharmD [address] [place] [address] Pharmacist Internal Medicine 02/07/23 documented as of this encounter
--- OUTSIDE RECORDS SUMMARY | 2024-04-07 11:33 | XMS_ITS | Encounter Summary ---
Author Organization [employer] Address 75 [facility] 7t [place] [address] Care Team Providers Care Associate Chief Nurse Name Role Phone Ethel Chase DO Primary Care Provider [phone] Vaishnavi Laird PharmD Unavailable [phone] Reason for Visit * Reason Onset Date Comments Med Refill 03/10/2024 Encounter Details Date Type Department Care Team (Late st Contact Info) Description 03/10/[address] [facility] MEDICINE 230 [place] [address] Ethel Chase DO 230 [place] [address] Other chronic pain Social History Tobacco Use [...] 7.5-325 MG tablet To be sent to: [facility] *pt also wanting to schedule [employer] visit documented in this encounter Plan of Treatment Upcoming Encounters Date Type Department Care Team (Late st Contact Info) Description 04/27/2024 9:00 AM EST Medication Management [facility] MEDICINE [address] [place] [address] TwilaiaVaishnavi, PharmD 230 [place] [address] documented as of this encounter Goals Goal [...] documented as of this encounter Care Teams Associate Chief Nurse Relationship Specialty Start Date End Date Ethel Chase DO 230 [place] [address] PCP - General Family Medicine 10/12/13 Vaishnavi Laird PharmD 230 [place] [address] Pharmacist Internal Medicine 02/07/23 documented as of this encounter
--- OUTSIDE RECORDS SUMMARY | 2024-04-07 11:33 | XMS_ITS | Encounter Summary ---
Author Organization [employer] Address 75 [facility] 7t [place] [address] Care Team Providers Care Transmission Technician Name Role Phone Ethel Chase DO Primary Care Provider [phone] Vaishnavi Laird PharmD Unavailable [phone] Reason for Visit * Reason Onset Date Comments Pre-Op 03/23/2024 Encounter Details Date Type Department Care Team (Late st Contact Info) Description 03/23/2024 Telephone [facility] MEDICINE [address] [place] [address] Ethel Chase DO [address] [place] [address] Pre-Op Social History Tobacco Use Types Packs/Day [...] Yes Surgeon's name: Dave Oro Facility name: [facility] Orthopedic Surgeon's office number: [phone] Surgeon's office fax number: [phone] Contact name (person you spoke with): Trish - Pt requesting reschedule 02/13 appt. Last office note from surgeon requested: Yes Send Message to Venus Crowell documented in this encounter Plan of Treatment Upcoming Encounters Date Type Department Care Team (Late st Contact Info) Description 04/27/2024 9:00 AM EST Medication Management [facility] MEDICINE [address] [place] [address] Vaishnavi Laird PharmD [address] [place] [address] documented as of this encounter Goals Goal [...] documented as of this encounter Care Teams Transmission Technician Relationship Specialty Start Date End Date Ethel Chase DO [address] [place] [address] PCP - General Family Medicine 10/12/13 Vaishnavi Laird PharmD [address] [place] [phone] Pharmacist Internal Medicine 02/07/23 documented as of this encounter
--- OUTSIDE RECORDS SUMMARY | 2024-04-07 11:33 | XMS_ITS | Encounter Summary ---
Author Organization [employer] Address 75 [facility] 7t [place] [address] Care Team Providers Care Gear Shaver Set Up Operator Name Role Phone Ethel Chase DO Primary Care Provider [phone]- [phone] Vaishnavi Laird PharmD Unavailable [phone] Reason for Visit * Reason Onset Date Comments Nurse Triage 04/16/2023 Encounter Details Date Type Department Care Team ([facility] st Contact Info) Description 04/16/2023 Telephone [facility] MEDICINE [address] [place] [address] Ethel Chase DO 230 [place] [address] Nurse Triage Social History Tobacco Use Types [...] PM EST Triage call regarding message from [facility] see below. Pt answers call , [employer] Tender [place] [id number], but, Pt is speaking yemeni well. Pt reports only high BS was [...] if any further problem to come to [facility] for provider to see Pt . [...] - You become worse Tc from [facility] reporting patient has extreme high blood sugars: 355 Saturday Down to the 250 today Advises that her glucose monitor keeps beeping, [facility] Nurse advised that pt refused urgent longterm visit but was advised to go to the urgent. Please contact pt [phone] Argentine Speaker * Telephone Encounter - Netta Armas Cheo - 04/16/2023 4:18 PM EST Tc from [facility] reporting patient has extreme high blood sugars: 355 Saturday Down to the 250 today Advises that her glucose monitor keeps beeping, [facility] Nurse advised that pt refused urgent longterm visit but was advised to go to the urgent. Please contact pt [phone] Argentine Speaker documented in this encounter Plan of Treatment Upcoming Encounters Date Type Department Care Team (Late st Contact Info) Description 04/27/2024 9:00 AM EST Medication Management [facility] MEDICINE [address] [place] [address] Puia, Vaishnavi, PharmD [address] [place] [address] documented as of this encounter Goals Goal [...] documented as of this encounter Care Teams Gear Shaver Set Up Operator Relationship Specialty Start Date End Date Ethel Chase DO [address] [place] [address] PCP - General Family Medicine 10/12/13 Vaishnavi Laird, Zana [address] [place] [address] [phone] Pharmacist Internal Medicine 02/07/23 documented as of this encounter
--- OUTSIDE RECORDS SUMMARY | 2024-04-07 11:33 | XMS_ITS | Encounter Summary ---
Author Organization [employer] Address [address] [place] [address] 7t [place] [address] Care Team Providers Care Branch Service Specialist Name Role Phone Ethel Chase DO Primary Care Provider [phone] PuVaishnavi thorpe PharmD Unavailable [phone] Reason for Visit * Reason Comments Med Refill Encounter Details Date Type Department Care Team (Late Contact Info) Description 10/25/2022 Refill [facility]S [address] [place] [address] Eun Ray MD [address] [place] [address] Other chronic pain Social History Tobacco Use [...] Upcoming Encounters Date Type Department Care Team ([facility] Contact Info) Description 04/27/2024 9:00 AM EST Medication Management [facility] MEDICINE [address] [place] [address] Puia, Vaishnavi, PharmD [address] [place] [address] documented as of this encounter Visit Diagnoses Diagnosis Other chronic pain documented in this encounter Additional Health Concerns Assessment Noted Time PHQ-9 Depression Total Score: 0 02/08/20 22 10:43 AM EST documented as of this encounter Care Teams Branch Service Specialist Relationship Specialty Start Date End Date Ethel Chase DO 230 [place] [address] PCP - General Family Medicine 10/12/13 Vaishnavi Laird PharmD [address] [place] [address] Pharmacist Internal Medicine 02/07/23 documented as of this encounter
--- OUTSIDE RECORDS SUMMARY | 2024-04-07 11:33 | XMS_ITS | Encounter Summary ---
Author Organization [employer] Address [address] [place] [address] 7t [place] [address] Care Team Providers Care Head Trimmer Name Role Phone Ethel Chase DO Primary Care Provider Vaishnavi Laird PharmD Unavailable Reason for Visit * Reason Comments Med Refill Encounter Details Date Type Department Care Team ([facility] st Contact Info) Description 02/07/2022 Refill [facility] MEDICINE [address] [place] [address] Ethel Chase DO [address] [place] [address] Diverticular disease (Primary Dx) Social History Tobacco [...] 3:31 PM EST TC placed to pt [phone] scan showed mild diverticulitis. Pt [...] is requesting medications to be sent to [facility] on [facility] she cannot get to [facility] pharmacy before they close. RN will queue medications to PCP. Pt did not have any further questions. * Telephone Encounter - Ethle Chase DO - 02/09/2022 3:04 PM EST Please advise pt that her CT abd showed mild diverticulitis. Will treat with cipro and flagyl if sxare persistent. Thank you. * Telephone Encounter - Susan Guillaume RN - 02/09/2022 1:46 PM EST PCP inquiring if abd/pelvis CT scan results are back yet. RN checked [employer] system and results not yet available. CT was ordered STAT. RN called [facility] radiology who reports they do not have a technical account representative on site or Saturday and RN would have to call [facility] at [phone] and [facility] to request results to be read. RN called [phone] however phone rang continuously without an automated recording w/ options ora VM. RN returned call to [facility] to inform them no one answered at [place] and the phone just kept ringing. [facility] confirmed the number is correct and reports they will send a message to [facility] to ask them to interpret the CT scan. RN will check before end of the day for interpretation report. * Telephone Encounter - Arcelia Wylie - 02/08/2022 2:07 PM EST Tc from [facility] requesting lab ordered be refaxed, marketing copywriter refaxed to [phone] * Telephone Encounter - Ethel Chase DO - 02/07/2022 3:51 PM EST Rx already sent. documented in this encounter Plan of Treatment Upcoming Encounters Date Type Department Care Team (Late st Contact Info) Description 04/27/2024 9:00 AM EST Medication Management [facility] MEDICINE [address] [place] [address] Vaishnavi Laird, PharmD [address] [place] [address] documented as of this encounter Visit Diagnoses Diagnosis Diverticular disease- Primary Diverticulosis of colon (without mention of hemorrhage) documented in this encounter Additional Health Concerns Assessment Noted Time PHQ-9 Depression Total Score: 0 02/08/20 10:43 AM EST documented as of this encounter Care Teams Head Trimmer Relationship Specialty Start Date End Date Ethel Chase DO [address] [place] [address] PCP - General Family Medicine 10/12/13 PuiaKishasa, PharmD [address] [place] [phone] Pharmacist Internal Medicine 02/07/23 documented as of this encounter
--- OUTSIDE RECORDS SUMMARY | 2024-04-07 11:33 | XMS_ITS | Encounter Summary ---
Author Organization [employer] Address 75 [facility] 7t [place] [address] Care Team Providers Care Public Records Officer Name Role Phone ManuelEthel perry Primary Care Provider + [phone] Vaishnavi Laird PharmD Unavailable [phone] Encounter Details Date Type Department Care [...] Description 04/27/2024 9:00 AM EST Medication Management [facility] MEDICINE 230 [place], [place] [phone] Vaishnavi Laird PharmD [address] [place] [address] documented as of this encounter Goals Goal [...] Whole Blood 185(H) 60 - 115 mg/dL [facility] Comment:METER #: [id number] 03/26/2024 7:26 AM EST 03/26/2024 7:31 AM EST us Generic External Data Provider LAB BLOOD ORDERAB LES Final Result Performing Organization Address City/[facility]/ZIP Co de Phone Number [facility] [address] [place] [phone] * (ABNORMAL) Basic Metabolic Panel, Fasting (03/26/2024 5:51 AM EST) Sodium 133(L) 135 - 145 mmol/L [facility] Potassium 4.1 3.3 - 5.1 mmol/L [facility] Chloride 101 96 - 108 mmol/L [facility] Carbon Dioxide 24 22 - 29 mmol/L [facility] Anion Gap 12 12 - 20 [facility] Urea Nitrogen (BUN) 15 9 - 16 mg/dL [facility] Creatinine, Serum 0.85 0.5 - 1.4 mg/dL [facility] Creatinine Clr Calc Pharmacy 75.9 [facility] Comment:Provided height and weight: 157.48 cm,114.8 kg.eGFR (calculated from the MDRD study equation) and eCrCl(calculated from the Cockcroft-Gault equation) are based ondifferent parameters and may not yield comparable results.If eCrCl result is absurd, please check patient'sheight/weight. Estimated Glomerular Filt Rate >60 [facility] Comment:Chronic Kidney Disea se: Estimated GFR < 60 mL/min/[id number] Kidney Disease: Estimated GFR < 15 mL/min/1.73m2 Glucose Fasting 192(H) 60 - 99 mg/dL [facility] Comment:A fasting glucose of 126 mg/dl or greater on more than oneoccasion is considered diagnostic of diabetes. Calcium 8.8 8.4 - 10.2 mg/dL [facility] 03/26/2024 5:51 AM EST 03/26/2024 6:30 AM EST us Generic External Data Provider LAB BLOOD ORDERAB LES Final Result Performing Organization Address City/[facility]/ZIP Co de Phone Number [facility] [address] [place] [phone] * (ABNORMAL) CBC auto differential (03/26/2024 5:51 AM EST) White Blood Count 11.8(H) 4.8 - 10.8 X10*3/uL [facility] Red Blood Count 3.48(L) 4.20 - 5.50 X10*6/uL [facility] Hemoglobin 9.5(L) 12.0 - 16.0 g/dl [facility] Hematocrit 29.5(L) 37.0 - 47.0 % [facility] Mean Corpuscular Volume 84.8 80.0 - 98.0 fL [facility] Mean Corpuscular Hemoglobin 27.3 27.0 - 33.0 pg [facility] Mean Corpuscular HGB Conc 32.2 31.0 - 35.0 g/dl [facility] Red Cell Distribution Width 13.9 11.0 - 16.0 % [facility] Platelet Count 255 160 - 400 X10*3/uL [facility] Mean Platelet Volume 9.6 9.4 - 12.3 fL [facility] Neutrophils Percent Auto 69.6 45 - 73 % [facility] Imm Gran Pct Auto 0.5(H) 0.0 - 0.4 % [facility] Lymphocytes Percent Auto 20.7 20 - 40 % [facility] Monocytes Percent Auto 8.3 2 - 11 % [facility] Eosinophils Percent Auto 0.5 0 - 4 % [facility] Basophils Percent Auto 0.4 0 - 2 % [facility] NRBC Pct Auto 0.0 0.0 - 0.2 /100WBC [facility] Neutrophils Absolute Auto 8.2 2.0 - 8.3 x10*3/uL [facility] Imm Gran Abs Auto 0.06(H) 0.00 - 0.03 X10*3/uL [facility] Lymphocytes Absolute Auto 2.4 1.2 - 4.9 X10*3/uL [facility] Monocytes Absolute Auto 1.0 0.1 - 1.2 X10*3/uL [facility] Eosinophils Absolute Auto 0.1 0.0 - 0.4 X10*3/uL [facility] Basophils Absolute Auto 0.1 0.0 - 0.2 X10*3/uL [facility] NRBC Abs Auto 0.000 0.0 - 0.012 X10*3/uL [facility] 03/26/2024 5:51 AM EST 03/26/2024 6:30 AM EST us Generic External Data Provider LAB BLOOD ORDERAB LES Final Result [facility] [address] [place] [phone] documented in this encounter Visit Diagnoses Not on filedocumented in this encounter Additional Health Concerns Assessment Noted Time PHQ-9 Depression Total Score: 8 10/18/19 24 11:35 AM EDT documented as of this encounter Care Teams Public Records Officer Relationship Specialty Start Date End Date Ethel Chase DO [address] [place] [address] PCP - General Family Medicine 10/12/13 Vaishnavi Laird PharmD [address] [place] [address] Pharmacist Internal Medicine 02/07/23 documented as of this encounter
--- OUTSIDE RECORDS SUMMARY | 2024-04-07 11:33 | XMS_ITS | Encounter Summary ---
Author Organization [employer] Address 75 [facility] 7t [place] [address] Care Team Providers Care Emts Name Role Phone ManuelEthel perry Primary Care Provider + [phone] Vaishnavi Laird PharmD Unavailable [phone] Reason for Visit * Reason Comments Med Refill Encounter Details Date Type Department Care Team ([facility] st Contact Info) Description 02/02/2023 Refill [facility] MEDICINE [address] [place] [address] Sadie Rivera, ANP 230 [place] [address] Type 2 diabetes mellitus with other specified complication, unspecified whether retirement insulin use ([facility]) Social History Tobacco Use Types Packs/Day Years [...] Description 04/27/2024 9:00 AM EST Medication Management [facility] MEDICINE [address] [place] [address] Vaishnavi Laird PharmD [address] [place] [address] documented as of this encounter Visit Diagnoses Diagnosis Type 2 diabetes mellitus with other specified complication, unspecified whether retirement insulin use ([facility]) documented in this encounter Additional Health Concerns Assessment Noted Time PHQ-9 Depression Total Score: 0 02/08/20 22 10:43 AM EST documented as of this encounter Care Teams Emts Relationship Specialty Start Date End Date Ethel Chase DO [address] [place] [address] PCP - General Family Medicine 10/12/13 Vaishnavi Laird PharmD [address] [place] [address] Pharmacist Internal Medicine 02/07/23 documented as of this encounter
--- OUTSIDE RECORDS SUMMARY | 2024-04-07 11:33 | XMS_ITS | Encounter Summary ---
Author Organization [employer] Address 75 [facility] 7t [place] [address] Care Team Providers Care Enterprise Manager Name Role Phone ManuelEthel perry Primary Care Provider + [phone] Vaishnavi Laird PharmD Unavailable [phone] Encounter Details Date Type Department Care [...] Medication Management [facility] [address] [place], [place] [phone] Vaishnavi Laird PharmD [address] [place], [place] [phone] documented as of this encounter Goals Goal [...] Whole Blood 172(H) 60 - 115 mg/dL [facility] Comment:METER #: [id number] 3 03/25/2024 8:45 PM EST 03/25/2024 8:55 PM EST us Generic External Data Provider LAB BLOOD ORDERAB LES Final Result Performing Organization Address [facility]/ZIP Co de Phone Number [facility] [address] [place] [phone] * (ABNORMAL) Glucose, Whole Blood (03/25/2024 3:45 PM EST) Glucose, Whole Blood 152(H) 60 - 115 mg/dL [facility] Comment:METER #: [id number] 3 03/25/2024 3:45 PM EST 03/25/2024 3:49 PM EST us Generic External Data Provider LAB BLOOD ORDERAB LES Final Result Performing Organization Address [facility] Co de Phone Number [facility] [address] [place] [phone] * (ABNORMAL) Glucose, Whole Blood (03/25/2024 11:25 AM EST) Glucose, Whole Blood 209(H) 60 - 115 mg/dL [facility] Comment:METER #: [id number] 3 03/25/2024 11:2 5 AM EST 03/25/2024 11:38 AM EST Generic External Data Provider LAB BLOOD ORDERAB LES Final Result Performing Organization Address [facility] Co de Phone Number [facility] [address] [place] [phone] * (ABNORMAL) Glucose, Whole Blood (03/25/2024 7:35 AM EST) Glucose, Whole Blood 188(H) 60 - 115 mg/dL [facility] Comment:METER #: [id number] 3 03/25/2024 7:35 AM EST 03/25/2024 7:49 AM EST us Generic External Data Provider LAB BLOOD ORDERAB LES Final Result [facility] [address] [place], [place] [phone] * (ABNORMAL) Basic Metabolic Panel, Fasting (03/25/2024 6:15 AM EST) Sodium 135 135 - 145 mmol/L [facility] Potassium 4.6 3.3 - 5.1 mmol/L [facility] Chloride 104 96 - 108 mmol/L [facility] Carbon Dioxide 22 22 - 29 mmol/L [facility] Anion Gap 14 12 - 20 [facility] Urea Nitrogen (BUN) 15 9 - 16 mg/dL [facility] Creatinine, Serum 0.88 0.5 - 1.4 mg/dL [facility] Creatinine Clr Calc Pharmacy 73.4 [facility] Comment:Provided height and weight: 157.48 cm,114.8 kg.eGFR (calculated from the MDRD study equation) and eCrCl(calculated from the Cockcroft-Gault equation) are based ondifferent parameters and may not yield comparable results.If eCrCl result is absurd, please check patient'sheight/weight. Estimated Glomerular Filt Rate >60 [facility] Comment:Chronic Kidney Disea se: Estimated GFR < 60 mL/min/1.68e4Gapztk Kidney Disease: Estimated GFR < 15 mL/min/1.73m2 Glucose Fasting 193(H) 60 - 99 mg/dL [facility] Comment:A fasting glucose of 126 mg/dl or greater on more than oneoccasion is considered diagnostic of diabetes. Calcium 9.2 8.4 - 10.2 mg/dL [facility] 03/25/2024 6:15 AM EST 03/25/2024 6:58 AM EST us Generic External Data Provider LAB BLOOD ORDERAB LES Final Result [facility] [address] [place] [address] [phone] * (ABNORMAL) CBC auto differential (03/25/2024 6:15 AM EST) White Blood Count 14.3(H) 4.8 - 10.8 X10*3/uL [facility] Red Blood Count 3.79(L) 4.20 - 5.50 X10*6/uL [facility] Hemoglobin 10.3(L) 12.0 - 16.0 g/dl [facility] Hematocrit 32.7(L) 37.0 - 47.0 % [facility] Mean Corpuscular Volume 86.3 80.0 - 98.0 fL [facility] Mean Corpuscular Hemoglobin 27.2 27.0 - 33.0 pg [facility] Mean Corpuscular HGB Conc 31.5 31.0 - 35.0 g/dl [facility] Red Cell Distribution Width 13.8 11.0 - 16.0 % [facility] Platelet Count 310 160 - 400 X10*3/uL [facility] Mean Platelet Volume 9.7 9.4 - 12.3 fL [facility] Neutrophils Percent Auto 75.8(H) 45 - 73 % [facility] Imm Gran Pct Auto 0.6(H) 0.0 - 0.4 % [facility] Lymphocytes Percent Auto 15.7(L) 20 - 40 % [facility] Monocytes Percent Auto 7.7 2 - 11 % [facility] Eosinophils Percent Auto 0.0 0 - 4 % [facility] Basophils Percent Auto 0.2 0 - 2 % [facility] NRBC Pct Auto 0.0 0.0 - 0.2 /100WBC [facility] Neutrophils Absolute Auto 10.9(H) 2.0 - 8.3 x10*3/uL [facility] Imm Gran Abs Auto 0.09(H) 0.00 - 0.03 X10*3/uL [facility] Lymphocytes Absolute Auto 2.3 1.2 - 4.9 X10*3/uL [facility] Monocytes Absolute Auto 1.1 0.1 - 1.2 X10*3/uL [facility] Eosinophils Absolute Auto 0.0 0.0 - 0.4 X10*3/uL [facility] Basophils Absolute Auto 0.0 0.0 - 0.2 X10*3/uL [facility] NRBC Abs Auto 0.000 0.0 - 0.012 X10*3/uL [facility] 03/25/2024 6:15 AM EST 03/25/2024 6:58 AM EST us Generic External Data Provider LAB BLOOD ORDERAB LES Final Result Performing Organization Address City/State/[facility] de Phone Number [facility] [address] [place] [address] [phone] documented in this encounter Visit Diagnoses Not on filedocumented in this encounter Additional Health Concerns Assessment Noted Time PHQ-9 Depression Total Score: 8 10/18/19 24 11:35 AM EDT documented as of this encounter Care Teams Enterprise Manager Relationship Specialty Start Date End Date Ethel Chase DO [address] [place] [address] PCP - General Family Medicine 10/12/13 Vaishnavi Laird PharmD [address] [place] [address] Pharmacist Internal Medicine 02/07/23 documented as of this encounter
--- OUTSIDE RECORDS SUMMARY | 2024-04-07 11:33 | XMS_ITS | Encounter Summary ---
Author Organization [employer] Address 75 [facility] 7t [place] [address] Care Team Providers Care Platen Builder Up Name Role Phone Ethel Chase Primary Care Provider + [phone] Vaishnavi Laird PharmD Unavailable [phone] Reason for Visit * Reason Onset Date Comments CGM PA for sensors 02/24/2024 Encounter Details Date Type Department Care Team (Late st Contact Info) Description 02/24/2024 Telephone [facility] [address] [place] [address] Susan Guillaume, RN [address] [place] [address] CGM PA for sensors Social History Tobacco [...] - 03/09/2024 10:15 AM EST RN called [facility] pharmacy and confirmed PA is processing for RX. RN was informed RX can be filled and pharmacy will contact patient when ready for p/u. Patient to f/u PRN. * Telephone Encounter - Susan Guillaume RN - 02/24/2024 3:39 PM EST Continuous Glucose Monitor Prior Authorization Documentation: CGM PA initiated for: Freestyle Gerard 2 sensors Insurance: CCA PA form completed and faxed to [phone]. Patient's preferred pharmacy: [facility] 230 [facility] 230 [facility] [phone] CGM PA should be approved by: 03/09/2024 Trish Hunter will not be scheduled with red team nurses for CGM placement/teaching as this is a re-certification. documented in this encounter Plan of Treatment Upcoming Encounters Date Type Department Care Team (Late st Contact Info) Description 04/27/2024 9:00 AM EST Medication Management [facility] [address] [place] [address] Vaishnavi Laird PharmD [address] [place] [address] documented as of this encounter Goals Goal [...] documented as of this encounter Care Teams Platen Builder Up Relationship Specialty Start Date End Date Ethel Chase DO [address] [place] [address] PCP - General Family Medicine 10/12/13 Vaishnavi Laird, PharmD [address] [place] [address] Pharmacist Internal Medicine 02/07/23 documented as of this encounter
--- OUTSIDE RECORDS SUMMARY | 2024-04-07 11:33 | XMS_ITS | Encounter Summary ---
Author Organization [employer] Address 75 [facility] 7t [place] [address] Care Team Providers Care Pallet Rectifier Name Role Phone Ethel Chase DO Primary Care Provider [phone] [phone] Vaishnavi Laird PharmD Unavailable [phone] Reason for Visit * Reason Onset Date Comments Med Refill 03/23/2024 Encounter Details Date Type Department Care Team (Late st Contact Info) Description 03/23/2024 Refill [facility] 230 [place] [address] Ethel Chase DO 230 [place] [address] Other chronic pain Social History Tobacco Use [...] MG tablet () To be sent to: [facility] documented in this encounter Plan of Treatment Upcoming Encounters Date Type Department Care Team (Late st Contact Info) Description 04/27/2024 9:00 AM EST Medication Management [facility] [address] [place] [address] Vaishnavi Laird, PharmD 230 [place] [address] documented as of this encounter Goals Goal [...] documented as of this encounter Care Teams Pallet Rectifier Relationship Specialty Start Date End Date Ethel Chase DO 230 [place] [address] PCP - General Family Medicine 10/12/13 Vaishnavi Laird PharmD 230 [place] [address] Pharmacist Internal Medicine 02/07/23 documented as of this encounter
--- OUTSIDE RECORDS SUMMARY | 2024-04-07 11:33 | XMS_ITS | Encounter Summary ---
Author Organization [employer] Address 75 [facility] 7t [place] [address] Care Team Providers Care Sheet Metal Work Furnace Installer Name Role Phone Ethel Chase DO Primary Care Provider [phone] [phone] Vaishnavi Laird PharmD Unavailable [phone] Reason for Visit * Reason Onset Date Comments Appointment Request 03/02/2024 Encounter Details Date Type Department Care Team ([facility] st Contact Info) Description 03/02/2024 Telephone [facility] 230 [place] [address] Ethel Chase DO [address] [place], [place] [phone] Appointment Request Social History Tobacco Use Types [...] visit. * Telephone Encounter - Jose David Watkins - 03/02/2024 11:14 AM EST Tc from pt canceling appt for tomorrow due to them not feeling well. Pt would like to reschedule. Please contact pt: [phone] (Bulgarian) documented in this encounter Plan of Treatment Upcoming Encounters Date Type Department Care Team (Late st Contact Info) Description 04/27/2024 9:00 AM EST Medication Management [facility] 230 [place], [place] [phone] Vaishnavi Laird, PharmD [address] [place] [address] documented as of this encounter Goals Goal [...] of this encounter Care Teams Sheet Metal Work Furnace Installer Relationship Specialty Start Date End Date Ethel Chase DO 230 [place] [address] PCP - General Family Medicine 10/12/13 Vaishnavi Laird, Zana [address] [place] [address] Pharmacist Internal Medicine 02/07/23 documented as of this encounter
== END 2024-04-07 10:57 | disposition home or self-care (01) ==
LOC: HO.HWS 10:22
PROVIDERS: PCP Family Medicine; Visit Provider Advanced Practice Midwife
DX: Z01.419 Encounter for gynecological examination (general) (routine) without abnormal findings (principal); L29.2 Pruritus vulvae
CPT/HCPCS: 99397; 99459

== ENCOUNTER 2024-04-09 12:15 | Outpatient (AMB) | payer OTHER, SELFPAY ==
--- OUTSIDE RECORDS SUMMARY | 2024-04-09 12:29 | XMS_ITS | Encounter Summary ---
Author Organization [employer] Address 75 [facility] 7t [place] [address] Care Team Providers Care Associate Oracle Retail Name Role Phone ManuelEthel perry Primary Care Provider + [phone] Vaishnavi Laird PharmD Unavailable [phone] Encounter Details Date Type Department Care [...] Description 04/27/2024 9:00 AM EST Medication Management [facility] [address] [place], [place] [phone] Vaishnavi Laird PharmD 230 [place], [place] [phone] documented as of this encounter Goals Goal [...] Whole Blood 204(H) 60 - 115 mg/dL [facility] Comment:METER #: [id number] 03/24/2024 8:09 PM EST 03/24/2024 8:12 PM EST us Generic External Data Provider LAB BLOOD ORDERAB LES Final Result [facility] [address] [place] [address] [phone] * XR Knee 1-2 Views Left (03/24/2024 6:30 PM EST) Anatomical Region Laterality Modality Lower Extremities, Knee Left Radiogra phic Imaging 03/24/2024 6:30 PM EST Narrative 03/24/2024 6:32 PM EST ? [facility] ?[address] ?[place] [address] ?XRay Report ? Signed ? Patient: Trish Cameron ?MR#: ?? [id number] ? : 1955 ?Acct:[id number] ? Age/Sex: 68 / F ?ADM Date: 03/24/24 ? Loc: HO.S3 ?375-1 ? Attending Dr: Khushi Mathias PA-C ? Ordering Physician: Khushi Mathias PA-C ?? Date of Service: 03/24/24 ?? Procedure(s): XR knee LT 2V ?? Accession Number(s): [id number] ? cc: Ethel Chase DO; Khushi Mathias [...] DD/ 1830 ? TD/TT: 03/24/24 1830 ? Agriscience Teacher: ? Procedure Note Donmelinterpreter, Image - 03/24/[address] [address] XRay Report Signed Patient: Trish Cameron MMR#: [id number] : 1955cct:[id number] Age/Sex: 68 / FADM Date: 03/24/24 Loc: HO.S3 375-[address]: Khushi Mathias PA-C Ordering Physician: Khushi Mathias PA-C Date of Service: 03/24/24 Procedure(s): XR knee LT 2V Accession Number(s): [id number] cc: Ethel Chase DO; Khushi Mathias PA-C [...] MD on 03/24/2024 18:30:49 Dictated By: Adrian Retaan MD Signed By: <Electronically signed by Adrian Retana MD in OV> 03/24/241830 DD/ 29 TD/TT: 03/24/241829 Agriscience Teacher: [facility] External Provider IMG XR PROCEDURES Final Result * (ABNORMAL) Glucose, Whole Blood (03/24/2024 5:46 PM EST) Glucose, Whole Blood 226(H) 60 - 115 mg/dL [facility] Comment:METER #: [id number] 03/24/2024 5:46 PM EST 03/24/2024 5:50 PM EST us Generic External Data Provider LAB BLOOD ORDERAB LES Final Result Performing Organization Address City/[facility] Co de Phone Number [facility] [address] [place] [phone] * (ABNORMAL) Glucose, Whole Blood (03/24/2024 10:56 AM EST) Glucose, Whole Blood 210(H) 60 - 115 mg/dL [facility] Comment:METER #: [id number] 03/24/2024 10:5 6 AM EST 03/24/2024 11:00 AM EST us Generic External Data Provider LAB BLOOD ORDERAB LES Final Result Performing Organization Address [facility] de Phone Number [facility] [address] [place] [phone] * Hemoglobin and Hematocrit (03/24/2024 10:53 AM EST) Hemoglobin 12.6 12.0 - 16.0 g/dl [facility] Hematocrit 38.6 37.0 - 47.0 % [facility] 03/24/2024 10:5 3 AM EST 03/24/2024 11:05 AM EST us Generic External Data Provider LAB BLOOD ORDERAB LES Final Result Performing Organization Address [facility] Co de Phone Number [facility] [address] [place] [phone] documented in this encounter Visit Diagnoses Not on filedocumented in this encounter Additional Health Concerns Assessment Noted Time PHQ-9 Depression Total Score: 8 10/18/19 24 11:35 AM EDT documented as of this encounter Care Teams Associate Oracle Retail Relationship Specialty Start Date End Date Ethel Chase DO [address] [place] [address] PCP - General Family Medicine 10/12/13 Vaishnavi Laird PharmD [address] [place] [address] Pharmacist Internal Medicine 02/07/23 documented as of this encounter
--- OUTSIDE RECORDS SUMMARY | 2024-04-09 12:29 | XMS_ITS | Encounter Summary ---
Author Organization [employer] Address [address] [place] [place] [address] 7t [place] [address] Care Team Providers Care Track Oiler Name Role Phone Ethel Chase Primary Care Provider +1 [phone] PuVaishnavi thorpe PharmD Unavailable [phone] Reason for Visit * Reason Comments Med Refill Encounter Details Date Type Department Care Team (Late st Contact Info) Description 08/10/2022 Refill [facility] [address] [place] [address] [facility] [address] [place] [address] Social History Tobacco Use Types Packs/Day Years [...] Description 04/27/2024 9:00 AM EST Medication Management [facility] [address] [place] [address] Puia, Vaishnavi, PharmD [address] [place] [address] documented as of this encounter Visit Diagnoses Not on filedocumented in this encounter Additional Health Concerns Assessment Noted Time PHQ-9 Depression Total Score: 0 02/08/20 22 10:43 AM EST documented as of this encounter Care Teams Track Oiler Relationship Specialty Start Date End Date Ethel Chase DO [address] [place], [place] [phone] PCP - General Family Medicine 10/12/13 Vaishnavi Laird PharmD [address] [place], [place] [phone] Pharmacist Internal Medicine 02/07/23 documented as of this encounter
--- OUTSIDE RECORDS SUMMARY | 2024-04-09 12:29 | XMS_ITS | Encounter Summary ---
Author Organization [employer] Address 75 [facility] 7t [place] [address] Care Team Providers Care Front Loader Residential Driver Name Role Phone Ethel Chase DO Primary Care Provider [phone]- [phone] Vaishnavi Laird PharmD Unavailable [phone] Reason for Visit * Reason Comments Med Refill Encounter Details Date Type Department Care Team ([facility] st Contact Info) Description 04/07/2024 Refill [facility] MED[facility]INE 230 [place] [address] Ethel Chase DO [address] [place] [address] Type 2 diabetes mellitus with other specified complication, unspecified whether skilled nursing insulin use ([facility]); Chronic gastroesophageal reflux disease Social History Tobacco [...] Description 04/27/2024 9:00 AM EST Medication Management [facility] 230 [place] [address] PuiaVaishnavi, PharmD [address] [place] [address] documented as of this encounter Goals Goal Patient Goal Type Associated Problems Recent Progress Patient-Stated? Author Hemoglobin A1c < 7 Result Component 7.1( 10:35 AM EST) No Puia, Vaishnavi, PharmD Record your blood sugar as directed Result Component No Puia, Vaishnavi, PharmD documented as of this encounter Visit Diagnoses Diagnosis Type 2 diabetes mellitus with other specified complication, unspecified whether terminal manager insulin use ([facility]) Chronic gastroesophageal reflux disease documented in this encounter Additional Health Concerns Assessment Noted Time PHQ-9 Depression Total Score: 8 10/18/19 24 11:35 AM EDT documented as of this encounter Care Teams Front Loader Residential Driver Relationship Specialty Start Date End Date Ethel Chase DO [address] [place] [address] PCP - General Family Medicine 10/12/13 Vaishnavi Laird, BrianD [address] [place] [address] Pharmacist Internal Medicine 02/07/23 documented as of this encounter
--- OUTSIDE RECORDS SUMMARY | 2024-04-09 12:29 | XMS_ITS | Encounter Summary ---
Author Organization [employer] Address 75 [facility] 7t [place] [address] Care Team Providers Care Career Agent Name Role Phone Ethel Chase DO Primary Care Provider +1 [phone] Vaishnavi Laird PharmD Unavailable [phone] Reason for Visit * Reason Onset Date Comments Pre-Op 03/23/2024 Encounter Details Date Type Department Care Team (Late st Contact Info) Description 03/23/2024 Telephone [facility]INE 230 [place] [address] Ethel Chase DO [address] [place] [address] Pre-Op Social History Tobacco Use Types Packs/Day [...] Yes Surgeon's name: Dave Oro Facility name[place] [facility] Surgeon's office number: [phone] Surgeon's office fax number: [phone] Contact name (person you spoke with): Trish - Pt requesting reschedule 02/13 appt. Last office note from surgeon requested: Yes Send Message to Venus Crowell documented in this encounter Plan of Treatment Upcoming Encounters Date Type Department Care Team (Late st Contact Info) Description 04/27/2024 9:00 AM EST Medication Management [facility] [address] [place] [address] Vaishnavi Laird PharmD [address] [place] [address] documented as of this encounter Goals Goal [...] documented as of this encounter Care Teams Career Agent Relationship Specialty Start Date End Date Ethel Chase DO [address] [place] [address] PCP - General Family Medicine 10/12/13 Vaishnavi Laird PharmD [address] [place] [address] Pharmacist Internal Medicine 02/07/23 documented as of this encounter
--- OUTSIDE RECORDS SUMMARY | 2024-04-09 12:29 | XMS_ITS | Encounter Summary ---
Author Organization [employer] Address 75 [facility] 7t [place] [address] Care Team Providers Care Manager Transfusion Name Role Phone Ethel Chase DO Primary Care Provider +1- [phone] Vaishnavi Laird PharmD Unavailable [phone] Reason for Visit * Reason Onset Date Comments Pre op 01/27/2024 Encounter Details Date Type Department Care Team ([facility] st Contact Info) Description 01/27/[address] [facility] MED[facility]INE [address] [place] [address] Ethel Chase DO [address] [place] [address] Pre op Social History Tobacco Use Types [...] op on 02/14/24 at 02:15PM. Sujata at [facility] stated she will be contacting pt to provide appointment details. Reminder letter sent via mail Date of Surgery: 03/24/24 Surgical procedure being done: left knee revision surgery Type of anesthesia: general anesthesia with block Lab needed: Yes include A1c EKG: Yes Surgeon's name: Dr Oro Facility name: [facility] Orthopedic Surgeon's office number: [phone] Surgeon's office fax number: [phone] Contact name (person you spoke with): Sujata Last office note from surgeon requested: Yes Send Message to Venus Hensley and Matias Crowell documented in this encounter Plan of Treatment Upcoming Encounters Date Type Department Care Team ([facility] st Contact Info) Description 04/27/2024 9:00 AM EST Medication Management [facility] MED[facility]INE [address] [place] [address] Vaishnavi Laird, PharmD [address] [place], [place] [phone] documented as of this encounter Goals Goal [...] documented as of this encounter Care Teams Manager Transfusion Relationship Specialty Start Date End Date Ethel Chase DO [address] [place] [address] PCP - General Family Medicine 10/12/13 Vaishnavi Laird PharmD [address] [place] [address] Pharmacist Internal Medicine 02/07/23 documented as of this encounter
--- OUTSIDE RECORDS SUMMARY | 2024-04-09 12:29 | XMS_ITS | Encounter Summary ---
Author Organization [employer] Address 75 [facility] 7t [place] [address] Care Team Providers Care Major General Name Role Phone Ethel Chase DO Primary Care Provider +1- [phone] Vaishnavi Laird PharmD Unavailable [phone] Reason for Visit * Reason Comments Med Refill Encounter Details Date Type Department Care Team ([facility] st Contact Info) Description 03/23/2024 Refill [facility] MEDICINE [address] [place] [address] Ethel Chase DO [address] [place] [address] Other chronic pain Social History Tobacco Use [...] Description 04/27/2024 9:00 AM EST Medication Management [facility] [address] [place] [address] Puia, Vaishnavi, PharmD [address] [place] [address] documented as of this encounter Goals Goal [...] documented as of this encounter Care Teams Major General Relationship Specialty Start Date End Date Ethel Chase DO [address] [place] [phone] PCP - General Family Medicine 10/12/13 Puia, Vaishnavi, PharmD [address] [place] [phone] Pharmacist Internal Medicine 02/07/23 documented as of this encounter
--- OUTSIDE RECORDS SUMMARY | 2024-04-09 12:29 | XMS_ITS | Encounter Summary ---
Author Organization [employer] Address [address] [facility] 7t [place] [address] Care Team Providers Care Human Resources Admin Name Role Phone Ethel Chase DO Primary Care Provider [phone] Vaishnavi Laird PharmD Unavailable [phone] Reason for Visit * Reason Onset Date Comments Med Refill 03/10/2024 Encounter Details Date Type Department Care Team (Late st Contact Info) Description 03/10/2024 Refill [facility] MEDICINE [address] [place] [address] Ethel Chase DO [address] [place] [address] Other chronic pain Social History Tobacco Use [...] 7.5-325 MG tablet To be sent to: [facility] *pt also wanting to schedule GARNISHMENT SPECIALIST visit documented in this encounter Plan of Treatment Upcoming Encounters Date Type Department Care Team (Late st Contact Info) Description 04/27/2024 9:00 AM EST Medication Management [facility] MEDICINE [address] [place] [address] TwilaiaVaishnavi, PharmD [address] [place] [address] documented as of this encounter Goals Goal [...] documented as of this encounter Care Teams Human Resources Admin Relationship Specialty Start Date End Date Ethel Chase DO [address] [place] [address] PCP - General Family Medicine 10/12/13 Vaishnavi Laird PharmD [address] [place] [address] Pharmacist Internal Medicine 02/07/23 documented as of this encounter
--- OUTSIDE RECORDS SUMMARY | 2024-04-09 12:29 | XMS_ITS | Encounter Summary ---
Author Organization [email or web address] Address [address] [facility] 7t [place] [address] Care Team Providers Care Psychiatric Specialist Name Role Phone ManuelEthel perry Primary Care Provider + [phone] Vaishnavi Laird PharmD Unavailable [phone] Reason for Visit * Reason Comments Med Refill Encounter Details Date Type Department Care Team ([facility] st Contact Info) Description 02/02/2023 Refill [facility] MEDICINE [address] [place] [address] Sadie Rivera, ANP [address] [place] [address] Type 2 diabetes mellitus with other specified complication, unspecified whether residential insulin use ([facility]) Social History Tobacco Use Types Packs/Day Years [...] Description 04/27/2024 9:00 AM EST Medication Management [facility] MEDICINE [address] [place] [address] Vaishnavi Laird PharmD [address] [place] [address] documented as of this encounter Visit Diagnoses Diagnosis Type 2 diabetes mellitus with other specified complication, unspecified whether residential insulin use ([facility]) documented in this encounter Additional Health Concerns Assessment Noted Time PHQ-9 Depression Total Score: 0 02/08/20 22 10:43 AM EST documented as of this encounter Care Teams Psychiatric Specialist Relationship Specialty Start Date End Date Ethel Chase DO [address] [place] [address] PCP - General Family Medicine 10/12/13 Vaishnavi Laidr PharmD [address] [place] [address] Pharmacist Internal Medicine 02/07/23 documented as of this encounter
--- OUTSIDE RECORDS SUMMARY | 2024-04-09 12:29 | XMS_ITS | Encounter Summary ---
Author Organization [employer] Address 75 [facility] 7t [place] [address] Care Team Providers Care Coating Inspector Name Role Phone Ethel Chase Primary Care Provider [phone] Vaishnavi Laird PharmD Unavailable Encounter Details Date Type Department Care Team (Late Contact Info) Description 02/09/2022 Orders Only [facility] PEDS [address] [place] [address] Sadie Rivera, ANP [address] [place] [address] Social History Tobacco Use Types Packs/Day Years [...] 9:00 AM EST Medication Management [facility] MEDICINE [address] [place] [address] Vaishnavi Laird PharmD [address] [place] [address] documented as of this encounter Visit Diagnoses Not on filedocumented in this encounter Additional Health Concerns Assessment Noted Time PHQ-9 Depression Total Score: 0 02/08/20 22 10:43 AM EST documented as of this encounter Care Teams Coating Inspector Relationship Specialty Start Date End Date Ethel Chase DO [address] [place] [address] PCP - General Family Medicine 10/12/13 Vaishnavi Laird PharmD [address] [place] [address] Pharmacist Internal Medicine 02/07/23 documented as of this encounter
--- OUTSIDE RECORDS SUMMARY | 2024-04-09 12:29 | XMS_ITS | Encounter Summary ---
Author Organization [employer] Address [address] [place] [address] 7t [place] [address] Care Team Providers Care Video Conference Specialist Name Role Phone Ethel Chase DO Primary Care Provider Vaishnavi Laird PharmD Unavailable Reason for Visit * Reason Comments Med Refill Encounter Details Date Type Department Care Team (Late st Contact Info) Description 06/07/2022 Refill [facility] MEDICINE [address] [place] [address] Ethel Chase DO 230 [place] [address] Other chronic pain Social History Tobacco Use [...] Description 04/27/2024 9:00 AM EST Medication Management [facility] MEDICINE [address] [place] [address] Vaishnavi Laird PharmD [address] [place] [address] documented as of this encounter Visit Diagnoses Diagnosis Other chronic pain documented in this encounter Additional Health Concerns Assessment Noted Time PHQ-9 Depression Total Score: 0 02/08/20 10:43 AM EST documented as of this encounter Care Teams Video Conference Specialist Relationship Specialty Start Date End Date Ethel Chase DO [address] [place] [address] PCP - General Family Medicine 10/12/13 Vaishnavi Laird PharmD [address] [place] [phone] Pharmacist Internal Medicine 02/07/23 documented as of this encounter
--- OUTSIDE RECORDS SUMMARY | 2024-04-09 12:29 | XMS_ITS | Encounter Summary ---
Author Organization [employer] Address [address] [facility] 7t [place] [address] Care Team Providers Care Integration Specialist Name Role Phone ManuelEthel perry Primary Care Provider + [phone] Vaishnavi Laird PharmD Unavailable [phone] Encounter Details Date Type Department Care [...] 04/27/2024 9:00 AM EST Medication Management [facility] MEDICINE 230 [place], [place] [phone] Vaishnavi Laird PharmD [address] [place], [place] [phone] documented as of this encounter Goals Goal [...] Whole Blood 172(H) 60 - 115 mg/dL [facility] Comment:METER #: [id number] 3 03/25/2024 8:45 PM EST 03/25/2024 8:55 PM EST us Generic External Data Provider LAB BLOOD ORDERAB LES Final Result Performing Organization Address [facility]/ZIP Co de Phone Number [facility] [address] [place] [phone] * (ABNORMAL) Glucose, Whole Blood (03/25/2024 3:45 PM EST) Glucose, Whole Blood 152(H) 60 - 115 mg/dL [facility] Comment:METER #: [id number] 3 03/25/2024 3:45 PM EST 03/25/2024 3:49 PM EST us Generic External Data Provider LAB BLOOD ORDERAB LES Final Result Performing Organization Address [facility] Co de Phone Number [facility] [address] [place] [phone] * (ABNORMAL) Glucose, Whole Blood (03/25/2024 11:25 AM EST) Glucose, Whole Blood 209(H) 60 - 115 mg/dL [facility] Comment:METER #: [id number] 3 03/25/2024 11:2 5 AM EST 03/25/2024 11:38 AM EST Generic External Data Provider LAB BLOOD ORDERAB LES Final Result Performing Organization Address [facility] Co de Phone Number [facility] [address] [place] [phone] * (ABNORMAL) Glucose, Whole Blood (03/25/2024 7:35 AM EST) Glucose, Whole Blood 188(H) 60 - 115 mg/dL [facility] Comment:METER #: [id number] 3 03/25/2024 7:35 AM EST 03/25/2024 7:49 AM EST us Generic External Data Provider LAB BLOOD ORDERAB LES Final Result [facility] [address] [place], [place] [phone] * (ABNORMAL) Basic Metabolic Panel, Fasting (03/25/2024 6:15 AM EST) Sodium 135 135 - 145 mmol/L [facility] Potassium 4.6 3.3 - 5.1 mmol/L [facility] Chloride 104 96 - 108 mmol/L [facility] Carbon Dioxide 22 22 - 29 mmol/L [facility] Anion Gap 14 12 - 20 [facility] Urea Nitrogen (BUN) 15 9 - 16 mg/dL [facility] Creatinine, Serum 0.88 0.5 - 1.4 mg/dL [facility] Creatinine Clr Calc Pharmacy 73.4 [facility] Comment:Provided height and weight: 157.48 cm,114.8 kg.eGFR (calculated from the MDRD study equation) and eCrCl(calculated from the Cockcroft-Gault equation) are based ondifferent parameters and may not yield comparable results.If eCrCl result is absurd, please check patient'sheight/weight. Estimated Glomerular Filt Rate >60 [facility] Comment:Chronic Kidney Disea se: Estimated GFR < 60 mL/min/1.53o2Itagzw Kidney Disease: Estimated GFR < 15 mL/min/1.73m2 Glucose Fasting 193(H) 60 - 99 mg/dL [facility] Comment:A fasting glucose of 126 mg/dl or greater on more than oneoccasion is considered diagnostic of diabetes. Calcium 9.2 8.4 - 10.2 mg/dL [facility] 03/25/2024 6:15 AM EST 03/25/2024 6:58 AM EST us Generic External Data Provider LAB BLOOD ORDERAB LES Final Result [facility] [address] [place] [address] [phone] * (ABNORMAL) CBC auto differential (03/25/2024 6:15 AM EST) White Blood Count 14.3(H) 4.8 - 10.8 X10*3/uL [facility] Red Blood Count 3.79(L) 4.20 - 5.50 X10*6/uL [facility] Hemoglobin 10.3(L) 12.0 - 16.0 g/dl [facility] Hematocrit 32.7(L) 37.0 - 47.0 % [facility] Mean Corpuscular Volume 86.3 80.0 - 98.0 fL [facility] Mean Corpuscular Hemoglobin 27.2 27.0 - 33.0 pg [facility] Mean Corpuscular HGB Conc 31.5 31.0 - 35.0 g/dl [facility] Red Cell Distribution Width 13.8 11.0 - 16.0 % [facility] Platelet Count 310 160 - 400 X10*3/uL [facility] Mean Platelet Volume 9.7 9.4 - 12.3 fL [facility] Neutrophils Percent Auto 75.8(H) 45 - 73 % [facility] Imm Gran Pct Auto 0.6(H) 0.0 - 0.4 % [facility] Lymphocytes Percent Auto 15.7(L) 20 - 40 % [facility] Monocytes Percent Auto 7.7 2 - 11 % [facility] Eosinophils Percent Auto 0.0 0 - 4 % [facility] Basophils Percent Auto 0.2 0 - 2 % [facility] NRBC Pct Auto 0.0 0.0 - 0.2 /100WBC [facility] Neutrophils Absolute Auto 10.9(H) 2.0 - 8.3 x10*3/uL [facility] Imm Gran Abs Auto 0.09(H) 0.00 - 0.03 X10*3/uL [facility] Lymphocytes Absolute Auto 2.3 1.2 - 4.9 X10*3/uL [facility] Monocytes Absolute Auto 1.1 0.1 - 1.2 X10*3/uL [facility] Eosinophils Absolute Auto 0.0 0.0 - 0.4 X10*3/uL [facility] Basophils Absolute Auto 0.0 0.0 - 0.2 X10*3/uL [facility] NRBC Abs Auto 0.000 0.0 - 0.012 X10*3/uL [facility] 03/25/2024 6:15 AM EST 03/25/2024 6:58 AM EST us Generic External Data Provider LAB BLOOD ORDERAB LES Final Result Performing Organization Address City/State/[facility] de Phone Number [facility] [address] [place] [address] [phone] documented in this encounter Visit Diagnoses Not on filedocumented in this encounter Additional Health Concerns Assessment Noted Time PHQ-9 Depression Total Score: 8 10/18/19 24 11:35 AM EDT documented as of this encounter Care Teams Integration Specialist Relationship Specialty Start Date End Date Ethel Chase DO [address] [place] [address] PCP - General Family Medicine 10/12/13 Vaishnavi Laird PharmD [address] [place] [address] Pharmacist Internal Medicine 02/07/23 documented as of this encounter
--- OUTSIDE RECORDS SUMMARY | 2024-04-09 12:29 | XMS_ITS | Encounter Summary ---
Author Organization [employer] Address [address] [facility] 7t [place] [address] Care Team Providers Care Cloud Architect Name Role Phone Ethel Chase DO Primary Care Provider [phone] Vaishnavi Laird PharmD Unavailable [phone] Reason for Visit * Reason Comments Med Refill Encounter Details Date Type Department Care Team ([facility] st Contact Info) Description 04/06/2024 Refill [facility] MEDICINE [address] [place] [address] Ethel Chase DO [address] [place] [address] Other chronic pain Social History Tobacco Use [...] is prescribing postop pain management. Pt cancelled [facility] Renew[facility] 03/03/24 and has not rescheduled. documented in this encounter Plan of Treatment Upcoming Encounters Date Type Department Care Team (Late st Contact Info) Description 04/27/2024 9:00 AM EST Medication Management [facility] MEDICINE [address] [place] [address] Puia, Vaishnavi, PharmD [address] [place] [address] documented as of this encounter Goals Goal [...] documented as of this encounter Care Teams Cloud Architect Relationship Specialty Start Date End Date Ethel Chase DO [address] [place] [address] PCP - General Family Medicine 10/12/13 Vaishnavi Laird PharmD [address] [place] [address] Pharmacist Internal Medicine 02/07/23 documented as of this encounter
--- OUTSIDE RECORDS SUMMARY | 2024-04-09 12:29 | XMS_ITS | Encounter Summary ---
Author Organization [employer] Address [address] [place] [address] 7t [place] [address] Care Team Providers Care Mule Packer Name Role Phone Ethel Chase DO Primary Care Provider Vaishnavi Laird PharmD Unavailable [phone] Reason for Visit * Reason Comments Med Refill Encounter Details Date Type Department Care Team ([facility] st Contact Info) Description 02/07/2022 Refill [facility] MEDICINE [address] [place] [address] Ethel Chase DO [address] [place] [address] Diverticular disease (Primary Dx) Social History Tobacco [...] 3:31 PM EST TC placed to pt [phone] scan showed mild diverticulitis. Pt [...] is requesting medications to be sent to [facility] on [facility] in [facility] she cannot get to [facility] pharmacy before they close. RN will queue [...] scan results are back yet. RN checked [employer] system and results not yet available. CT was ordered STAT. RN called [facility] radiology who reports they do not have a waste baler on site or Saturday and RN would have to call [facility] at [phone] and [facility] to be read. RN called [phone] however phone rang continuously without an automated recording w/ options ora VM. RN returned call to [facility] to inform them no one answered at [facility] and the phone just kept ringing. [facility] confirmed the number is correct and reports they will send a message to [facility] to ask them to interpret the CT scan. RN will check before end of the day for interpretation report. * Telephone Encounter - Arcelia Wylie - 02/08/2022 2:07 PM EST Tc from [facility] requesting lab ordered be refaxed, check writer refaxed to [phone] * Telephone Encounter - Ethel Chase DO - 02/07/2022 3:51 PM EST Rx already sent. documented in this encounter Plan of Treatment Upcoming Encounters Date Type Department Care Team (Late st Contact Info) Description 04/27/2024 9:00 AM EST Medication Management [facility] MEDICINE [address] [place] [address] Vaishnavi Laird, PharmD [address] [place] [address] documented as of this encounter Visit Diagnoses Diagnosis Diverticular disease- Primary Diverticulosis of colon (without mention of hemorrhage) documented in this encounter Additional Health Concerns Assessment Noted Time PHQ-9 Depression Total Score: 0 02/08/20 10:43 AM EST documented as of this encounter Care Teams Mule Packer Relationship Specialty Start Date End Date Etehl Chase DO [address] [place] [address] PCP - General Family Medicine 10/12/13 PuiaKishasa, PharmD [address] [place] [phone] Pharmacist Internal Medicine 02/07/23 documented as of this encounter
--- OUTSIDE RECORDS SUMMARY | 2024-04-09 12:29 | XMS_ITS | Encounter Summary ---
Author Organization [employer] Address [address] [place] [address] 7t [place] [address] Care Team Providers Care Container Repairer Name Role Phone Ethel Chase DO Primary Care Provider Vaishnavi Laird PharmD Unavailable Reason for Visit * Reason Comments Med Refill Encounter Details Date Type Department Care Team (Late Contact Info) Description 06/06/2022 Refill [facility] MEDICINE [address] [place] [address] Ethel Chase DO [address] [place] [address] Other chronic pain Social History Tobacco Use [...] Description 04/27/2024 9:00 AM EST Medication Management [facility] MEDICINE [address] [place] [address] Vaishnavi Laird PharmD [address] [place] [address] documented as of this encounter Visit Diagnoses Diagnosis Other chronic pain documented in this encounter Additional Health Concerns Assessment Noted Time PHQ-9 Depression Total Score: 0 02/08/20 10:43 AM EST documented as of this encounter Care Teams Container Repairer Relationship Specialty Start Date End Date Ethel Chase DO [address] [place] [address] PCP - General Family Medicine 10/12/13 Vaishnavi Laird PharmD [address] [place] [address] Pharmacist Internal Medicine 02/07/23 documented as of this encounter
--- OUTSIDE RECORDS SUMMARY | 2024-04-09 12:29 | XMS_ITS | Encounter Summary ---
Author Organization [employer] Address [address] [facility] 7t [place] [address] Care Team Providers Care Rigging Man Name Role Phone ManuelEthel perry Primary Care Provider + [phone] Vaishnavi Laird PharmD Unavailable [phone] Encounter Details Date Type Department Care [...] 04/27/2024 9:00 AM EST Medication Management [facility] MEDICINE [address] [place], [place] [phone] Vaishnavi Laird PharmD [address] [place] [address] documented as of this encounter Goals Goal [...] Whole Blood 185(H) 60 - 115 mg/dL [facility] Comment:METER #: [id number] 3 03/26/2024 7:26 AM EST 03/26/2024 7:31 AM EST us Generic External Data Provider LAB BLOOD ORDERAB LES Final Result Performing Organization Address City/[facility]/ZIP Co de Phone Number [facility] [address] [place] [phone] * (ABNORMAL) Basic Metabolic Panel, Fasting (03/26/2024 5:51 AM EST) Sodium 133(L) 135 - 145 mmol/L [facility] Potassium 4.1 3.3 - 5.1 mmol/L [facility] Chloride 101 96 - 108 mmol/L [facility] Carbon Dioxide 24 22 - 29 mmol/L [facility] Anion Gap 12 12 - 20 [facility] Urea Nitrogen (BUN) 15 9 - 16 mg/dL [facility] Creatinine, Serum 0.85 0.5 - 1.4 mg/dL [facility] Creatinine Clr Calc Pharmacy 75.9 [facility] Comment:Provided height and weight: 157.48 cm,114.8 kg.eGFR (calculated from the MDRD study equation) and eCrCl(calculated from the Cockcroft-Gault equation) are based ondifferent parameters and may not yield comparable results.If eCrCl result is absurd, please check patient'sheight/weight. Estimated Glomerular Filt Rate >60 [facility] Comment:Chronic Kidney Disea se: Estimated GFR < 60 mL/min/1.55d8Lknuty Kidney Disease: Estimated GFR < 15 mL/min/1.73m2 Glucose Fasting 192(H) 60 - 99 mg/dL [facility] Comment:A fasting glucose of 126 mg/dl or greater on more than oneoccasion is considered diagnostic of diabetes. Calcium 8.8 8.4 - 10.2 mg/dL [facility] 03/26/2024 5:51 AM EST 03/26/2024 6:30 AM EST us Generic External Data Provider LAB BLOOD ORDERAB LES Final Result Performing Organization Address City/[facility]/ZIP Co de Phone Number [facility] [address] [place] [phone] * (ABNORMAL) CBC auto differential (03/26/2024 5:51 AM EST) White Blood Count 11.8(H) 4.8 - 10.8 X10*3/uL [facility] Red Blood Count 3.48(L) 4.20 - 5.50 X10*6/uL [facility] Hemoglobin 9.5(L) 12.0 - 16.0 g/dl [facility] Hematocrit 29.5(L) 37.0 - 47.0 % [facility] Mean Corpuscular Volume 84.8 80.0 - 98.0 fL [facility] Mean Corpuscular Hemoglobin 27.3 27.0 - 33.0 pg [facility] Mean Corpuscular HGB Conc 32.2 31.0 - 35.0 g/dl [facility] Red Cell Distribution Width 13.9 11.0 - 16.0 % [facility] Platelet Count 255 160 - 400 X10*3/uL [facility] Mean Platelet Volume 9.6 9.4 - 12.3 fL [facility] Neutrophils Percent Auto 69.6 45 - 73 % [facility] Imm Gran Pct Auto 0.5(H) 0.0 - 0.4 % [facility] Lymphocytes Percent Auto 20.7 20 - 40 % [facility] Monocytes Percent Auto 8.3 2 - 11 % [facility] Eosinophils Percent Auto 0.5 0 - 4 % [facility] Basophils Percent Auto 0.4 0 - 2 % [facility] NRBC Pct Auto 0.0 0.0 - 0.2 /100WBC [facility] Neutrophils Absolute Auto 8.2 2.0 - 8.3 x10*3/uL [facility] Imm Gran Abs Auto 0.06(H) 0.00 - 0.03 X10*3/uL [facility] Lymphocytes Absolute Auto 2.4 1.2 - 4.9 X10*3/uL [facility] Monocytes Absolute Auto 1.0 0.1 - 1.2 X10*3/uL [facility] Eosinophils Absolute Auto 0.1 0.0 - 0.4 X10*3/uL [facility] Basophils Absolute Auto 0.1 0.0 - 0.2 X10*3/uL [facility] NRBC Abs Auto 0.000 0.0 - 0.012 X10*3/uL [facility] 03/26/2024 5:51 AM EST 03/26/2024 6:30 AM EST us Generic External Data Provider LAB BLOOD ORDERAB LES Final Result [facility] [address] [place] [address] [phone] documented in this encounter Visit Diagnoses Not on filedocumented in this encounter Additional Health Concerns Assessment Noted Time PHQ-9 Depression Total Score: 8 10/18/19 24 11:35 AM EDT documented as of this encounter Care Teams Rigging Man Relationship Specialty Start Date End Date Ethel Chase DO [address] [place] [address] PCP - General Family Medicine 10/12/13 Vaishnavi Laird PharmD [address] [place] [address] Pharmacist Internal Medicine 02/07/23 documented as of this encounter
--- OUTSIDE RECORDS SUMMARY | 2024-04-09 12:29 | XMS_ITS | Encounter Summary ---
Author Organization [employer] Address [address] [facility] 7t [place] [address] Care Team Providers Care Roofing Machine Operator Name Role Phone ManuelEthel perry Primary Care Provider [phone] Vaishnavi Laird PharmD Unavailable [phone] Encounter Details Date Type Department Care Team (Late st Contact Info) Description 04/07/2024 Orders Only GENERIC EXTERNAL DATA DEPARTMENT Provider, [...] Management [facility] MEDICINE [address] [place], [place] [phone] Vaishnavi Laird, PharmD [address] [place] [address] documented as of this encounter Goals Goal Patient Goal Type Associated Problems Recent Progress Patient-Stated? Author Hemoglobin A1c < 7 Result Component 7.1( 10:35 AM EST) No TwilaiaChristoferVaishnavi, PharmD Record your blood sugar as directed Result Component No Vaishnavi Laird, PharmD documented as of this encounter Procedures Procedure Name Priority Date/Time Associated Diagnosis Comments BACTERIAL VAGINOSIS PANEL Routine 04/07/2024 10:22 AM EST documented in this encounter Results * (ABNORMAL) Bacterial Vaginosis (04/07/2024 10:22 AM EST) TRICHOMONAS VAGINALIS DETECTION BY PCR NOT DETECTED Not Detect [facility] BACTERIAL VAGINOSIS DETECTION BY PCR NEGATIVE Negative [facility] Comment:The BV organism targ ets of the Xpert Xpress MVP test can becommensal in women; Xpert Xpress MVP positive results forbacterial vaginosis should be considered in conjunction withother clinical and patient information to determine thedisease status. Organisms that are not detected by the XpertXpress MVP test have also been reported to be associatedwith BV and aerobic vaginitis.The Xpert Xpress MVP test performance has not been evaluatedin patients under the age of 14. KAYY GROUP DETECTION BY PCR DETECTED(A) Not Detect [facility] Kayy glab krusei PCR NOT DETECTED Not Detect [facility] 04/07/2024 10:2 2 AM EST 04/07/2024 3:47 PM EST us Generic External Data Provider LAB MICROBIOLOGY - GENERAL ORDERABLES Final Result Performing Organization Address City/State/[facility] Co de Phone Number [facility] [address] [place] [address] [phone] documented in this encounter Visit Diagnoses Not on filedocumented in this encounter Additional Health Concerns Assessment Noted Time PHQ-9 Depression Total Score: 8 10/18/19 24 11:35 AM EDT documented as of this encounter Care Teams Roofing Machine Operator Relationship Specialty Start Date End Date Ethel Chase DO [address] [place] [address] PCP - General Family Medicine 10/12/13 Vaishnavi Laird PharmD [address] [place] [address] Pharmacist Internal Medicine 02/07/23 documented as of this encounter
--- OUTSIDE RECORDS SUMMARY | 2024-04-09 12:29 | XMS_ITS | Clinical Summary ---
Author Organization [employer] Address [address] [facility] 7t [place] [address] Care Team Providers Care Manager Software Development Name Role Phone Ethel Chase Primary Care Provider [phone] Vaishnavi Laird PharmD Unavailable [phone] Allergies Active Allergy Reactions Criticality Noted [...] FOR ANXEITY 023 Active Continuous Blood Gluc Polys[employer] Tech (FreeStyle Gerard 2 [place]) deviceIndications: Poorly controlled diabetes mellitus (CMS/HCC) Use [...] UP TO TWICE DAILY DIRECTED 50 strip 5 024 Active levothyroxine (Synthroid, Levoxyl) 112 MCG tablet TAKE 1 TABLET BY MOUTH EVERY MORNING BEFORE BREAKFAST 90 tablet 3 024 Active gabapentin (Neurontin) 600 MG tablet TAKE 1 TABLET BY MOUTH TWICE DAILY IN THE MORNING AND AT BEDTIME 60 tablet 5 024 Active fluticasone-salmet sari (Advair) 115-21 MCG/ACT [...] without long-term current use of insulin (CMS/HCC) USE TO TEST BLOOD SUGAR TWICE DAILY [...] 2nd device into other nostril. 2 each Active Semaglutide, 2 MG/DOSE, (Ozempic, 2 MG/DOSE,) 8 MG/3ML solution pen-injectorIndica tions:Type 2 diabetes mellitus without complication, without long-term current use of insulin (CMS/HCC) Inject 2 mg under the skin 1 (one) time per week. 3 mL Active glucose 4 g chewable tablet Chew 4 tablets (16 g) if needed for low blood sugar (BG < 70 mg/dL). 20 tablet 5 024 2024 Active Continuous Glucose Sensor (FreeStyle Gerard 2 Sensor) miscIndications:Po mabel controlled diabetes mellitus (CMS/HCC) USE DIRECTED CHANGE EVERY 14 DAYS 2 each Active baclofen (Lioresal) 10 MG tablet Take 1 tablet (10 mg) by mouth if needed in the morning, at noon, and at bedtime for muscle spasms. 60 tablet 3 024 2024 Active Diclofenac Sodium 1 % gel Apply 2 g topically if needed in the morning, at noon, in the evening, and at bedtime (pain). 150 g 3 024 Active docusate sodium (Colace) 100 MG capsuleIndications :Constipation, unspecified constipation type TAKE 1 CAPSULE BY MOUTH TWICE DAILY IN THE MORNING AND AT BEDTIME 180 capsule 3 024 Active Calcium Carb-Cholecalcifer ol (Oyster Shell Calcium w/D) 500-5 MG-MCG tabletIndications: Osteopenia, unspecified location TAKE 1 TABLET BY MOUTH TWICE DAILY IN THE MORNING AND IN THE EVENING 180 tablet 1 024 Active Multiple Vitamins-Iron (Tab-A-Rito/Iron) tablet TAKE 1 TABLET BY MOUTH EVERY MORNING WITH FOOD 90 tablet 1 024 Active insulin pen needle 32G x 4 mm miscIndications:Ty pe 2 diabetes mellitus without complication, without long-term current use of insulin ([facility]) Use to inject insulin 1 times daily 100 each 3 024 Active insulin degludec (Tresiba FlexTouch) 100 UNIT/ML injectionIndicatio ns:Type 2 diabetes mellitus without complication, without long-term current use of insulin ([facility]) Inject 32 units subQ once daily at bedtime. 15 mL 5 024 Active cholecalciferol VITAMIN D (Vitamin D-3) 50 MCG (1999 [place]) tablet TAKE 1 TABLET BY MOUTH EVERY EVENING 90 tablet 1 024 Active oxyCODONE-acetamin ophen (Percocet) 7.5-325 MG tabletIndications: Other chronic pain TAKE 1 TABLET BY MOUTH EVERY 6 HOURS NEEDED FOR SEVERE PAIN FOR UP TO 7 DAYS 28 tablet 025 Active aspirin (Aspirin Low Dose) 81 MG EC tabletIndications: Type 2 diabetes mellitus with other specified complication, unspecified whether termination clerk insulin use ([facility]) TAKE 1 TABLET BY MOUTH EVERY EVENING 90 tablet 1 025 Active pantoprazole (ProtoNix) 40 MG EC tabletIndications: Chronic gastroesophageal reflux disease TAKE 1 TABLET BY MOUTH EVERY MORNING 90 tablet 1 025 Active pantoprazole (ProtoNix) 40 MG EC tabletIndications: Chronic gastroesophageal reflux disease TAKE 1 TABLET BY MOUTH EVERY MORNING 90 tablet 1 024 2024 Discontinued aspirin (Aspirin Low Dose) 81 MG EC tabletIndications: Type 2 diabetes mellitus with other specified complication, unspecified whether jail insulin use ([facility]) TAKE 1 TABLET BY MOUTH EVERY EVENING 90 tablet 1 024 2024 Discontinued oxyCODONE-acetamin ophen (Percocet) 7.5-325 MG tabletIndications: Other [...] to 7 days. 28 tablet 025 2024 Discontinued Active Problems Problem Noted Date Diagnosed Date [...] Date Type Department Care Team Description 04/07/2024 Orders Only GENERIC EXTERNAL DATA DEPARTMENT Provider, Generic External Data 04/07/2024 Refill [facility] MEDICINE [address] [place] [phone] Ethel Chase DO Type 2 diabetes mellitus with other specified complication, unspecified whether jail insulin use ([facility]); Chronic gastroesophageal reflux disease 04/06/2024 Refill [facility] [address] [place], [place] [address] Ethel Chase, Other chronic pain 03/26/2024 Orders Only GENERIC EXTERNAL DATA DEPARTMENT Provider, Generic External Data 03/25/2024 Orders Only GENERIC EXTERNAL DATA DEPARTMENT Provider, Generic External Data 03/24/2024 Orders Only GENERIC EXTERNAL DATA DEPARTMENT Provider, Generic External Data 03/23/2024 Refill [facility] [address] [place], [place] [address] Ethel Chase, Other chronic pain 03/23/2024 Telephone [facility] [address] [place], [place] [address] Ethel Chase, Pre-Op 03/23/2024 Refill [facility] [address] [place] [address] Ethel Chase, Other chronic pain 03/10/2024 Refill [facility] [address] [place], [place] [address] Ethel Chase, Other chronic pain 03/02/2024 Telephone [facility] MEDICINE [address] [place] [address] Ethel Chase, Appointment Request 02/24/2024 Telephone [facility] [address] [facility] [place] [address] Susan Guillaume, RN CGM PA for sensors 02/14/2024 Telephone [facility] [address] [facility] [place] [address] Ethel Chase, No Show 02/10/2024 Refill [facility] [address] [place] [address] Ethel Chase, Other chronic pain 02/05/2024 Refill [facility] [address] [facility] [place] [address] Ethel Chase, Constipation, unspecified constipation type; Osteopenia, unspecified location 01/30/2024 Telephone [facility] MEDICINE [address] [place] [address] Dixon Knutson MA Chart Prep 01/29/2024 10:45 AM EST Office Visit [facility] MEDICINE [address] [place] [address] Ethel Chase DO Type 2 diabetes mellitus [...] knee; Healthcare maintenance 01/29/2024 Travel 01/27/2024 [address] [place] [address] Ethel Chase DO Pre op 01/15/2024 Patient Outreach [address] [address] Ethel Chase DO Pre-visit Planning (SDOH screening negative and tobacco screening negative) 01/10/[address] [address] Ethel Chase DO Other chronic pain from Last 3 Months [...] Description 04/27/2024 9:00 AM EST Medication Management [facility] MEDICINE [address] [place] [address] Vaishnavi Laird, PharmD [address] [place] [address] Health Maintenance Due Date Last Done Comments [...] 10/18/2023, 10/18/19 24 Lipid Panel 11/10/2024 11/11/2023, 06/, 10/28/2020 SDOH Screening 01/14/2025 01/15/2024 Alcohol/Substance Use Screening 01/28/2025 01/29/2024 Tobacco Screening 01/28/2025 01/29/2024 Mammogram 08/05/2025 08/06/2023, 05/0 10/2022, 07/03/2022, Additional history exists Pneumococcal Vaccine: 50+ [...] directed Result Component No Puia, Vaishnavi, PharmD Procedures Procedure Name Priority Date/Time Associated Diagnosis Comments BACTERIAL VAGINOSIS PANEL Routine 04/07/2024 10:22 AM EST GLUCOSE, WHOLE BLOOD Routine 03/26/2024 7:26 AM [...] Relevant to Health Maintenance Results * (ABNORMAL) Bacterial Vaginosis (04/07/2024 10:22 AM EST) TRICHOMONAS VAGINALIS DETECTION BY PCR NOT DETECTED Not Detect [facility] BACTERIAL VAGINOSIS DETECTION BY PCR NEGATIVE Negative [facility] Comment:The BV organism targ ets [...] GROUP DETECTION BY PCR DETECTED(A) Not Detect [facility] Kayy glab krusei PCR NOT DETECTED Not Detect [facility] 04/07/2024 10:2 2 AM EST 04/07/2024 3:47 PM EST Generic External Data Provider LAB MICROBIOLOGY - GENERAL ORDERABLES Final Result Performing Organization Address [facility] Co de Phone Number [facility] [address] [place] [phone] * (ABNORMAL) Glucose, Whole Blood (03/26/2024 7:26 AM EST) Only the most recent of8 resultswithin the time period is included. Glucose, Whole Blood 185(H) 60 - 115 mg/dL [facility] Comment:METER #: [id number] 03/26/2024 7:26 AM EST 03/26/2024 7:31 AM EST Generic External Data Provider LAB BLOOD ORDERAB LES Final Result Performing Organization Address [facility] de Phone Number [facility] [address] [place] [phone] * (ABNORMAL) Basic Metabolic Panel, Fasting (03/26/2024 5:51 AM EST) Only the most recent of2 resultswithin the time period is included. Sodium 133(L) 135 - 145 mmol/L [facility] Potassium 4.1 3.3 - 5.1 mmol/L [facility] Chloride 101 96 - 108 mmol/L [facility] Carbon Dioxide 24 22 - 29 mmol/L [facility] Anion Gap 12 12 - 20 [facility] Urea Nitrogen (BUN) 15 9 - 16 mg/dL [facility] Creatinine, Serum 0.85 0.5 - 1.4 mg/dL [facility] Creatinine Clr Calc Pharmacy 75.9 [facility] Comment:Provided height and weight: 157.48 cm,114.8 kg.eGFR (calculated from the MDRD study equation) and eCrCl(calculated from the Cockcroft-Gault equation) are based ondifferent parameters and may not yield comparable results.If eCrCl result is absurd, please check patient'sheight/weight. Estimated Glomerular Filt Rate >60 [facility] Comment:Chronic Kidney Disea se: Estimated GFR < 60 mL/min/[id number] Kidney Disease: Estimated GFR < 15 mL/min/1.73m2 Glucose Fasting 192(H) 60 - 99 mg/dL [facility] Comment:A fasting glucose of 126 mg/dl or greater on more than oneoccasion is considered diagnostic of diabetes. Calcium 8.8 8.4 - 10.2 mg/dL [facility] 03/26/2024 5:51 AM EST 03/26/2024 6:30 AM EST us Generic External Data Provider LAB BLOOD ORDERAB LES Final Result [facility] [address] [place] [phone] * (ABNORMAL) CBC auto differential (03/26/2024 5:51 AM EST) Only the most recent of2 resultswithin the time period is included. White Blood Count 11.8(H) 4.8 - 10.8 X10*3/uL [facility] Red Blood Count 3.48(L) 4.20 - 5.50 X10*6/uL [facility] Hemoglobin 9.5(L) 12.0 - 16.0 g/dl [facility] Hematocrit 29.5(L) 37.0 - 47.0 % [facility] Mean Corpuscular Volume 84.8 80.0 - 98.0 fL [facility] Mean Corpuscular Hemoglobin 27.3 27.0 - 33.0 pg [facility] Mean Corpuscular HGB Conc 32.2 31.0 - 35.0 g/dl [facility] Red Cell Distribution Width 13.9 11.0 - 16.0 % [facility] Platelet Count 255 160 - 400 X10*3/uL [facility] Mean Platelet Volume 9.6 9.4 - 12.3 fL [facility] Neutrophils Percent Auto 69.6 45 - 73 % [facility] Imm Gran Pct Auto 0.5(H) 0.0 - 0.4 % [facility] Lymphocytes Percent Auto 20.7 20 - 40 % [facility] Monocytes Percent Auto 8.3 2 - 11 % [facility] Eosinophils Percent Auto 0.5 0 - 4 % [facility] Basophils Percent Auto 0.4 0 - 2 % [facility] NRBC Pct Auto 0.0 0.0 - 0.2 /100WBC [facility] Neutrophils Absolute Auto 8.2 2.0 - 8.3 x10*3/uL [facility] Imm Gran Abs Auto 0.06(H) 0.00 - 0.03 X10*3/uL [facility] Lymphocytes Absolute Auto 2.4 1.2 - 4.9 X10*3/uL [facility] Monocytes Absolute Auto 1.0 0.1 - 1.2 X10*3/uL [facility] Eosinophils Absolute Auto 0.1 0.0 - 0.4 X10*3/uL [facility] Basophils Absolute Auto 0.1 0.0 - 0.2 X10*3/uL [facility] NRBC Abs Auto 0.000 0.0 - 0.012 X10*3/uL [facility] 03/26/2024 5:51 AM EST 03/26/2024 6:30 AM EST us Generic External Data Provider LAB BLOOD ORDERAB LES Final Result [facility] [address] [place] [address] [phone] * XR Knee 1-2 Views Left (03/24/2024 6:30 PM EST) Anatomical Region Laterality Modality Lower Extremities, Knee Left Radiogra phic Imaging 03/24/2024 6:30 PM EST Narrative 03/24/2024 6:32 PM EST ? [facility] ?[address] ?[place] [address] ?XRay Report ? Signed ? Patient: Dale Oc,Vane ?MR#: ?? [id number] ? : 1955 ?Acct:[id number] ? Age/Sex: 68 / F ?ADM Date: 03/24/24 ? Loc: HO.S3 ?375-1 ? Attending Dr: Khushi Mathias PA-C ? Ordering Physician: Khushi Mathias PA-C ?? Date of Service: 03/24/24 ?? Procedure(s): XR knee LT 2V ?? Accession Number(s): [id number] ? cc: Ethel Chase DO; Khushi Mathias [...] in OV> ? 03/24/24 183 ? DD/ 183 ? TD/TT: 03/24/24 183 ? Manager Clinical Pharmacy: ? Procedure Note Alek Arzate - 03/24/[address] [address] XRay Report Signed Patient: Trish Cameron MMR#: [id number] : 6Acct:[id number] Age/Sex: 68 / FADM Date: 03/24/24 Loc: HO.S3 375-[address]: Khushi Mathias PA-C Ordering Physician: Khushi Mathias PA-C Date of Service: 03/24/24 Procedure(s): XR knee LT 2V Accession Number(s): [id number] cc: Ethel Chase DO; Khushi Mathias PA-C [...] by Adrian Retana MD in OV> 03/24/24 183 DD/ 29 TD/TT: 03/24/241829 Manager Clinical Pharmacy: [facility] External Provider IMG XR PROCEDURES Final Result * Hemoglobin and Hematocrit (03/24/2024 10:53 AM EST) Hemoglobin 12.6 12.0 - 16.0 g/dl [facility] Hematocrit 38.6 37.0 - 47.0 % [facility] 03/24/2024 10:5 3 AM EST 03/24/2024 11:05 AM EST Generic External Data Provider LAB BLOOD ORDERAB LES Final Result [facility] [address] [place] [phone] * (ABNORMAL) POCT glycosylated hemoglobin (Hgb A1c) (01/29/2024 10:35 AM EST) Hemoglobin A1C 7.1(A) 4.0 - 6.0 % QC Media Lot # [id number] Lot# Expiration Date Blood Capillary blood specimen / Unknown 01/29/2024 10:35 AM EST Ethel Jacksonorlando DO POINT OF CARE TEST ENTER/MARGARITA T ORDERABLES Final Result * (ABNORMAL) POCT glucose manually resulted (01/29/2024 10:34 AM EST) Glucose Blood, POC 211(A) 60 - 200 mg/dL QC Media Lot # [id number] Lot# Expiration Date Blood Capillary blood specimen / Unknown 01/29/2024 10:34 AM EST [facility] POINT OF CARE TEST ENTER/MARGARITA T ORDERABLES Final Result * Lipid Panel, Standard (11/11/2023 9:05 AM EDT) Triglycerides 128 <150 mg/dL [facility] Comment:Desirable Triglyceri de: less than 150 mg/dLBorderline High Triglyceride 150-199 mg/dLHigh Triglyceride: 200-499 mg/dLVery High Triglyceride: greater than or equal to 5OO mg/dL Cholesterol 108 <200 mg/dL [facility] Comment:Desirable Cholestero l: less than 200 mg/dLBorderline High Cholesterol: 200-239 mg/dLHigh Cholesterol: greater than 239 mg/dL LDL Cholesterol Calculated 42 <100 mg/dL [facility] Comment:Desirable LDL: less than 100 mg/dLNear Optimal/Above Optimal LDL: 110- 129 mg/dLBorderline High LDL: 130-159 mg/dLHigh LDL: 160-189 mg/dLVery High LDL: greater than or equal to 190 mg/dL HDL Cholesterol 41 >40 mg/dL [facility] Comment:Desirable HDL: great er than 40 mg/dL Note: This HDL assay may give artificially low results in patients with liver disease. Blood Venous blood specimen / Unknown 11/11/2023 9:05 AM EDT 11/11/2023 11:33 AM EDT us Ethel Salvatore DO LAB BLOOD ORDERABLES Final R esult [facility] [address] [place] [address] [phone] * BI Mammogram Screening Tomosynthesis Bilateral (08/06/2023 11:15 AM EDT) Anatomical Region Laterality Modality Breast Bilateral Mammography 08/06/2023 11:1 5 AM EDT Narrative 09/05/2023 9:40 AM EDT ? [facility] ? [address] ?[place] [address] ? Mammography Report ? Signed ? Patient: Trish Cameron ?MR#: ?? [id number] ? : 1955 ?Acct:[id number] ? Age/Sex: 67 / F ?ADM Date: 08/06/23 ? Loc: HO.MAMMO ? Attending Dr: Ethel Chase DO ? Ordering Physician: Ethel Chase A DO ?Results: 1N ?? egative ? Date of Service: 08/06/23 ?Follow Up: 1 Year From Orig ?? inal Mammogram ? Procedure(s): MM tomosynthesis screening BI ?? Accession Number(s): [id number] ? cc: Ethel Chase DO ? EXAMINATION: [...] 0936 ? DD/ 1115 ? TD/TT: ? Manager Clinical Pharmacy: ? Procedure Note Donradhater, Image - 09/05/2023 [facility] [address] [place] [address] [place] [address] Mammography Report Signed Patient: Trish Cameron [facility]#: [id number] : 6Acct:[id number] Age/Sex: 67 / FADM Date: 08/06/23 Loc: HO.MAMMO Attending Dr: Ethel Chase DO Ordering Physician: Ethel Chaseults: 1N egative Date of Service: 08/06/23Follow Up: 1 Year From Orig ina Mammogram Procedure(s): MM tomosynthesis screening BI Accession Number(s): [id number] cc: Ethel Chase DO EXAMINATION: MM SCREENING [...] in OV> 09/05/23 0936 DD/ 1115 TD/TT: Manager Clinical Pharmacy: us Ethel Chase DO IMG BI PROCEDURES Final Resu lt * Albumin, Random Urine W/Creatinine (03/13/2023 9:38 AM EST) Creatinine, Urine 131.57 mg/dL [facility] Microalbumin Urine 6.0 mg/L [facility] Microalbum Creatinine Ratio Ur 4.5 <30 ug/mg cr [facility] Comment:Albumin/Creatinine R atio Reference Ranges: Normal: < 30 ug/mg creatinine Microalbuminuria: 30 - 300 ug/mg creatinineClinical Albuminuria: > 300 ug/mg creatinine 03/13/2023 9:38 AM EST 03/13/2023 11:25 AM EST us Ethel Chase DO LAB URINE ORDERABLES Final R esult [facility] [address] [place] [address] [phone] * HEPATITIS C ANTIBODY RFLX (10/31/2019 9:40 AM EDT) HEPATITIS C ANTIBODY NONREACTIVE NONREACTIVE [facility] Comment: Antibodies to HCV not detected; does not exclude early acute HCV infection. 10/31/2019 9:40 AM EDT Ethel Chase DO HISTORICAL/NON ORDERABLE LAB S Final Result Performing Organization Address City/[facility]/ZIP Co de Phone Number [facility] [address] [place] [address], * Hm Colonoscopy (03/03/2019) Pathologist [facility] Colonoscopy follow up in 5 years Historical Provider HEALTH MAINTENANCE Edited Result - Final from Last 3 Months or Most Recently Relevant to Health Maintenance Insurance [facility] Care Teams Manager Software Development Relationship Specialty Start Date End Date Ethel Chase DO [address] [place] [phone] PCP - General Family Medicine 10/12/13 Vaishnavi Laird PharmD [address] [place] [address] [phone] Pharmacist Internal Medicine 02/07/23
--- OUTSIDE RECORDS SUMMARY | 2024-04-09 12:29 | XMS_ITS | Encounter Summary ---
Author Organization [employer] Address [address] [facility] 7t [place] [address] Care Team Providers Care Rug Dry Room Attendant Name Role Phone Ethel Chase DO Primary Care Provider [phone] Vaishnavi Laird PharmD Unavailable [phone] Reason for Visit * Reason Onset Date Comments Med Refill 03/23/2024 Encounter Details Date Type Department Care Team (Late st Contact Info) Description 03/23/2024 Refill [facility] MEDICINE [address] [place] [address] Ethel Chase DO [address] [place] [address] Other chronic pain Social History Tobacco Use [...] MG tablet () To be sent to: [facility] Pharmacy documented in this encounter Plan of Treatment Upcoming Encounters Date Type Department Care Team (Late st Contact Info) Description 04/27/2024 9:00 AM EST Medication Management [facility] MEDICINE [address] [place] [address] Vaishnavi Laird, PharmD [address] [place] [address] documented as of this encounter Goals Goal [...] documented as of this encounter Care Teams Rug Dry Room Attendant Relationship Specialty Start Date End Date Ethel Chase DO [address] [place] [address] PCP - General Family Medicine 10/12/13 Vaishnavi Laird PharmD [address] [place] [address] Pharmacist Internal Medicine 02/07/23 documented as of this encounter
--- OUTSIDE RECORDS SUMMARY | 2024-04-09 12:29 | XMS_ITS | Encounter Summary ---
Author Organization [employer] Address [address] [place] [address] [address] [place] [address] Care Team Providers Care Master Control Technician Name Role Phone Ethel Chase DO Primary Care Provider [phone] PuVaishnavi thorpe PharmD Unavailable [phone] Reason for Visit * Reason Comments Med Refill Encounter Details Date Type Department Care Team (Late Contact Info) Description 10/25/2022 Refill [facility] [address] [place] [address] Eun Ray MD [address] [place] [address] Other chronic pain Social History Tobacco Use [...] Upcoming Encounters Date Type Department Care Team ([facility] Contact Info) Description 04/27/2024 9:00 AM EST Medication Management [facility] [address] [place] [address] Puia, Vaishnavi, PharmD [address] [place] [address] documented as of this encounter Visit Diagnoses Diagnosis Other chronic pain documented in this encounter Additional Health Concerns Assessment Noted Time PHQ-9 Depression Total Score: 0 02/08/20 22 10:43 AM EST documented as of this encounter Care Teams Master Control Technician Relationship Specialty Start Date End Date Ethel Chase DO [address] [place] [address] PCP - General Family Medicine 10/12/13 Vaishnavi Laird PharmD [address] [place] [address] Pharmacist Internal Medicine 02/07/23 documented as of this encounter
--- OUTSIDE RECORDS SUMMARY | 2024-04-09 12:29 | XMS_ITS | Encounter Summary ---
Author Organization [employer] Address [address] [facility] [address]t [place] [address] Care Team Providers Care Clinical Staff Anesthesiologist Name Role Phone Ethel Chase DO Primary Care Provider [phone] Vaishnavi Laird PharmD Unavailable [phone] Reason for Visit * Reason Onset Date Comments Nurse Triage 04/16/2023 Encounter Details Date Type Department Care Team ([facility] st Contact Info) Description 04/16/2023 Telephone [facility] [address] [place] [address] Ethel Chase DO [address] [place] [address] Nurse Triage Social History Tobacco Use Types [...] PM EST Triage call regarding message from [facility] see below. 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 Pt reports only high BS was [...] if any further problem to come to [facility] for provider to see Pt . Pt [...] - You become worse Tc from [facility] reporting patient has extreme high blood sugars: 355 Saturday Down to the 250 today Advises that her glucose monitor keeps beeping, [facility] Nurse advised that pt refused urgent senior living visit but was advised to go to the urgent. Please contact pt [phone] Syrian Speaker * Telephone Encounter - Netta Armas Cheo - 04/16/2023 4:18 PM EST Tc from [facility] reporting patient has extreme high blood sugars: 355 Saturday Down to the 250 today Advises that her glucose monitor keeps beeping, [facility] Nurse advised that pt refused urgent senior living visit but was advised to go to the urgent. Please contact pt [phone] Syrian Speaker documented in this encounter Plan of Treatment Upcoming Encounters Date Type Department Care Team (Late st Contact Info) Description 04/27/2024 9:00 AM EST Medication Management [facility] [address] [place] [address] Puia, Vaishnavi, PharmD [address] [place] [address] documented as of this encounter Goals Goal [...] documented as of this encounter Care Teams Clinical Staff Anesthesiologist Relationship Specialty Start Date End Date Ethel Chase DO [address] [place] [address] PCP - General Family Medicine 10/12/13 Vaishnavi Laird, Zana [address] [place] [address] [phone] Pharmacist Internal Medicine 02/07/23 documented as of this encounter
--- OUTSIDE RECORDS SUMMARY | 2024-04-09 12:29 | XMS_ITS | Encounter Summary ---
Author Organization [employer] Address [address] [facility] [address]t [place] [address] Care Team Providers Care Carousel Operator Name Role Phone Ethel Chase DO Primary Care Provider [phone] Vaishnavi Laird PharmD Unavailable [phone] Reason for Visit * Reason Onset Date Comments Appointment Request 03/02/2024 Encounter Details Date Type Department Care Team ([facility] st Contact Info) Description 03/02/2024 Telephone [facility] [address] [place] [address] Ethel Chase DO [address] [place], [place] [phone] Appointment Request Social History Tobacco Use Types [...] would like to reschedule. Please contact pt: [phone] (Yakut) documented in this encounter Plan of Treatment Upcoming Encounters Date Type Department Care Team (Late st Contact Info) Description 04/27/2024 9:00 AM EST Medication Management [facility] [address] [place], [place] [phone] Vaishnavi Laird, PharmD [address] [place] [address] documented as of this encounter Goals Goal [...] documented as of this encounter Care Teams Carousel Operator Relationship Specialty Start Date End Date Ethel Chase DO [address] [place] [address] PCP - General Family Medicine 10/12/13 Vaishnavi Laird, Zana [address] [place] [address] Pharmacist Internal Medicine 02/07/23 documented as of this encounter
--- OUTSIDE RECORDS SUMMARY | 2024-04-09 12:29 | XMS_ITS | Encounter Summary ---
Author Organization [employer] Address [address] [place] [address] [address] [place] [address] Care Team Providers Care Scorer Helper Name Role Phone Ethel Chase DO Primary Care Provider [phone]- [phone] PuVaishnavi thorpe PharmD Unavailable [phone] Reason for Visit * Reason Comments Med Refill Encounter Details Date Type Department Care Team (Late st Contact Info) Description 04/06/2022 Refill [facility] [address] [place] [address] Ethel Chase DO [address] [place] [address] Other chronic pain Social History Tobacco Use [...] 04/27/2024 9:00 AM EST Medication Management [facility] [address] [place] [address] Puia, Vaishnavi, PharmD [address] [place] [address] documented as of this encounter Visit Diagnoses Diagnosis Other chronic pain documented in this encounter Additional Health Concerns Assessment Noted Time PHQ-9 Depression Total Score: 0 02/08/20 22 10:43 AM EST documented as of this encounter Care Teams Scorer Helper Relationship Specialty Start Date End Date Ethel Chase DO [address] [place], [place] [phone] PCP - General Family Medicine 10/12/13 Vaishnavi Laird PharmD [address] [place], [place] [phone] Pharmacist Internal Medicine 02/07/23 documented as of this encounter
--- NOTE | 2024-04-09 12:38 | MHC.OFFVIS ---
Intake Visit Reasons: 2WK PO: Revision left TKA 03/24/24 NE Intake Note: Trish is a 68 year old female who presents today for a post op appointment for her revision left TKA 03/24/24 NE. Patient reports she is feeling a little dizzy today and some discomfort in her knee. Allergies Iodinated Contrast Media [IV CONTRAST] Allergy (Severe, Verified 04/09/24 12:51) itching, hives morphine [Morphine] Allergy (Intermediate, Verified 04/09/24 12:51) ITCHING, rash tramadol [Ultram] Allergy (Intermediate, Verified 04/09/24 12:51) rash, itching HPI HPI 2WK PO: Revision left TKA 03/24/24 NE: Details: Ms. Dale Renae is a 68-year-old female who presents to the office today status post left knee revision total arthroplasty performed on 03/24/[address] Oro. Overall the patient is doing very well. She is using a Rollator walker to assist with ambulation. She is working with physical therapy at her home and is ready to transition to outpatient. She is a little dizzy at today's visit. [facility] Medical History Arthritis Hypothyroidism Renal calculi Environmental and seasonal allergies Nocturnal hypoxia Abnormal nuclear stress test Diabetes HTN (hypertension) Cardiomyopathy Bilateral nephrolithiasis Retention of urine Acid reflux Surgical History Status post total left knee replacement History of total left knee replacement (TKR) Hx of lithotripsy (2018) History of total right knee replacement (2011) Hx of repair of right rotator cuff (2013) History of cystoscopy Hx of tubal ligation History of hand surgery Family History Brother Breast cancer Social History Household Members: Spouse Household Members Other:: lives w/her grandson Housing: House Are you a primary childcare aide to a significant other at home: Yes (grandson 17 yrs) Do you presently have visiting nurse or other home services: No 75 years or older and lives alone: No Alcohol intake: current Alcohol intake frequency: holidays/special occasions only Comment: post op left knee, WBAT Patient Tobacco Use Status: Never used Tobacco service: No Current occupational status: disabled Current occupation: rt handed Gender identity: Female Female Reproductive History Menstrual Age of Menarche: 12 Review of Systems Const All systems reviewed & are unremarkable except as noted in HPI and below Physical Exam Const General: cooperative, healthy appearing and no acute distress Resp Effort & Inspection: normal respiratory effort and able to speak in complete sentences Cardio Rate: regular rate Peripheral pulses: Peripheral pulses 2+ throughout Skin Lesions: no lesions Rashes: no rashes Extrem Other: Left knee millie intact no ecchymosis erythema or drainage. No signs of infection. Range of motion is 0 to 100 degrees. NVI. Assessment & Plan Assessment & Plan (1) Status post revision of total replacement of left knee: Code(s): Z96.652 - Presence of left artificial knee joint Category: Surgical Plan Ms. Dale Renae is a 68-year-old female who presents to the office today status post left knee revision total arthroplasty performed on 03/24/[address] Oro. Overall the patient is doing very well. She is using a Rollator walker to assist with ambulation. She is working with physical therapy at her home and is ready to transition to outpatient. She is a little dizzy at today's visit. While in the office today, millie are removed. Steri-Strips were applied. Patient will continue coag for a total of 6 weeks postoperatively. An order for physical therapy to transition to outpatient physical therapy has been placed while in the office today. She will follow up in [address] Oro, sooner if needed. Coding Level of Care Code Global (15490) Diagnoses Status post revision of total replacement of left knee Z96.652
== END 2024-04-09 13:02 | disposition home or self-care (01) ==
PROVIDERS: PCP Family Medicine; Visit Provider Physician Assistant
DX: Z96.652 Presence of left artificial knee joint (principal)
CPT/HCPCS: 99024

== ENCOUNTER → 2024-04-09 12:15 | Outpatient (BNVA) | payer OTHER, SELFPAY | PROVIDERS: PCP Family Medicine; Visit Provider Physician Assistant | DX: Z47.1 Aftercare following joint replacement surgery (principal); Z96.652 Presence of left artificial knee joint | CPT/HCPCS: 99212 ==

== ENCOUNTER 2024-04-12 13:06 | Emergency (ER) | payer OTHER, SELFPAY ==
--- NOTE | ~2024-04-12 | CT_ITS ---
CLINICAL HISTORY: fall with head strike, on heparin CT Brain without contrast Comparison: CT/REG/SR - CT HEAD/BRAIN WO IV CON - 08/27/22 12:59 EDT FINDINGS: Cortical sulci: There is diffuse prominence of the cortical sulci compatible with age-related atrophy. Ventricles: Normal for age Brain parenchyma: There is patchy lucency throughout the deep white matter indicating chronic microvascular leukomalacia. Extra axial spaces: Normal Posterior Fossa: Normal Extracranial soft tissues: Normal Additional abnormality: None IMPRESSION: Age-related atrophy with chronic microvascular leukomalacia. No hemorrhage, mass effect, or acute findings identified. This document has been electronically signed by: David Gonzalez MD on 04/12/2024 16:31:11
--- NOTE | ~2024-04-12 | US_ITS ---
CLINICAL HISTORY: warmth, erythema, swelling, recent revision Venous duplex ultrasound left lower extremity Comparison: None Findings: The visualized deep veins are fully compressible with normal Doppler color flow and spectral tracings. No popliteal cyst. IMPRESSION: 1. Negative for left lower extremity deep vein thrombosis. This document has been electronically signed by: David Gonzalez MD on 04/12/2024 15:15:48
--- NOTE | ~2024-04-12 | XR_ITS ---
CLINICAL HISTORY: fall, hx knee replacement with revision 4 view left knee Comparison: CR/ID - XR KNEE LT 2V - 03/24/24 17:47 EST Findings: Status post total knee replacement. There is acute displaced fracture of the distal femur. Soft tissue edema and joint effusion. No radiopaque foreign body. IMPRESSION: Acute perihardware fracture of the distal femur. This document has been electronically signed by: David Gonzalez MD on 04/12/2024 14:32:09
--- NOTE | ~2024-04-12 | CT_ITS ---
CLINICAL HISTORY: femur fx, recent TKA revision CT left knee without contrast Comparison: CR/NH - XR KNEE LT 4V - 04/12/24 13:42 EST Findings: Status post total knee replacement. Vertical acute fracture of the distal femur. A vertical fracture line is also noted in the medial proximal tibia series 19, image 76. Evaluation is limited by the beam hardening artifact from the prosthesis. There is soft tissue edema and joint effusion. No radiopaque foreign body. Impression: Acute periprosthetic fracture of the distal femur and proximal tibia. This document has been electronically signed by: David Gonzalez MD on 04/12/2024 16:41:25
--- NOTE | 2024-04-12 13:08 | ED_ITS ---
HPI - General Adult General Chief complaint: Extremity Injury, Lower Stated complaint: L KNEE REPLACEMENT FALL LAST NIGHT Time Seen by Provider: 04/12/24 13:07 Source: patient, EMS, RN notes reviewed and old records reviewed Mode of arrival: EMS Limitations: no limitations History of Present Illness ED Provider: Alpesh HPI narrative: Patient is a 68-year-old female with history of hypothyroidism, DM, HTN, cardiomyopathy, revision of left TKA on 03/24/24 on lovenox presenting to the ED with complaint of left knee pain after a fall yesterday. States that she has been having swelling, erythema and warmth to her knee prior to her fall. States that yesterday she was getting up and fell due to her knee pain, did strike the back of her head. Denies neck or back pain. Denies fevers. Complains of severe left knee pain. MD complaint: left knee pain Onset (ago): hour(s) Related Data Home Medications ?Medication ?Instructions ?Recorded ?Confirmed albuterol sulfate 90 mcg/actuation 2 puff PO Q6H PRN Pain 11/25/20 02/25/24 aerosol inhaler (ProAir HFA) aripiprazole 10 mg tablet 10 mg PO QAM 11/25/20 02/25/24 atorvastatin 20 mg tablet 20 mg PO BEDTIME 11/25/20 02/25/24 blood sugar diagnostic (FreeStyle #10 ea 11/25/20 02/24/24 Lite Strips) cholecalciferol (vitamin D3) 50 50 mcg PO QPM 11/25/20 02/25/24 mcg (2,000 unit) tablet docusate sodium 100 mg capsule 100 mg PO DAILY PRN Constipation 11/25/20 02/25/24 fluticasone propionate 50 1 spray intranasal BID 11/25/20 02/25/24 mcg/actuation nasal spray,suspension latanoprost 0.005 % eye drops 1 drp ophthalmic (eye) BEDTIME 11/25/20 02/25/24 loratadine 10 mg tablet 10 mg PO QAM 11/25/20 02/25/24 lorazepam 1 mg tablet 1 mg PO BID PRN anxiety 11/25/20 02/25/24 metformin 500 mg tablet 500 mg PO BID 11/25/20 03/24/24 multivitamin-ferrous 1 tab PO QAM 11/25/20 02/25/24 fumarate-folic acid 18 mg-400 mcg tablet (Tab-A-Rito Multivitamin w-iron) oxycodone 5 mg tablet 7.5 mg PO Q6H PRN severe pain 11/25/20 02/25/24 venlafaxine 150 mg 150 mg PO QAM 11/25/20 02/25/24 capsule,extended release 24 hr venlafaxine 75 mg capsule,extended 75 mg PO QAM 11/25/20 02/25/24 release 24 hr zolpidem 10 mg tablet 10 mg PO BEDTIME 11/25/20 02/25/24 lancets 33 gauge (TRUEplus Lancets) #100 ea 04/14/21 02/24/24 dulaglutide 0.75 mg/0.5 mL 0.75 mg subcut .QMONDAY 06/19/22 02/25/24 subcutaneous pen injector (Trulicity) isosorbide mononitrate 30 mg 30 mg PO DAILY 01/11/23 02/25/24 tablet,extended release 24 hr levothyroxine 112 mcg tablet 112 mcg PO DAILY 01/11/23 02/25/24 gabapentin 600 mg tablet 600 mg PO BID 02/25/24 02/25/24 mirtazapine 15 mg tablet 15 mg PO DAILY 02/25/24 02/25/24 prazosin 2 mg capsule 4 mg PO BEDTIME 02/25/24 02/25/24 semaglutide 2 mg/dose (8 mg/3 mL) 2 mg subcut MO 02/25/24 03/24/24 subcutaneous pen injector (Ozempic) fluticasone propionate 115 2 puff inhalation BID PRN 03/24/24 03/24/24 mcg-salmeterol 21 mcg/actuation Shortness Of Breath Or Wheezing HFA inhaler (Advair HFA) insulin degludec 100 unit/mL (3 32 unit subcut DAILY 03/24/24 03/24/24 mL) subcutaneous pen (Tresiba FlexTouch U-100 insulin) Previous Rx's ?Medication ?Instructions ?Recorded pantoprazole 40 mg tablet,delayed 40 mg PO QAM #30 tabs 08/03/20 release metoprolol succinate 25 mg 25 mg PO QAM 90 days #90 tabs 06/24/23 tablet,extended release 24 hr lisinopril 20 mg tablet 20 mg PO QPM #90 tabs 12/10/23 walker #1 ea 02/05/24 acetaminophen 325 mg tablet 650 mg (2 x 325 mg) PO Q6H PRN 03/26/24 Pain, Mild 1-3,Fever,Headache 30 days #240 tabs celecoxib 200 mg capsule 200 mg PO BID 30 days #60 caps 03/26/24 docusate sodium 100 mg capsule 100 mg PO BID 30 days #60 caps 03/26/24 enoxaparin 40 mg/0.4 mL 40 mg (0.4 mL) subcut Q24H 42 days 03/26/24 subcutaneous syringe #16.8 mL oxycodone 5 mg tablet 5 mg PO Q6H PRN Pain, 04/04/24 Moderate(Pain Scale 4-6) 7 days #42 tabs clotrimazole-betamethasone 1 1 appl topical BID itching 7 days 04/07/24 %-0.05 % topical cream #45 grams Allergies Allergy/AdvReac Type Severity Reaction Status Date / Time Iodinated Contrast Media Allergy Severe itching, Verified 04/12/24 13:26 [IV CONTRAST] hives morphine [Morphine] Allergy Intermediate ITCHING, Verified 04/12/24 13:26 rash tramadol [Ultram] Allergy Intermediate rash, Verified 04/12/24 13:26 itching Review of Systems 2 Review of Systems: As per HPI Yes all other systems are reviewed and are negative Constitutional: Constitutional: Reports as per HPI PMFSH Past Medical History Medical History Arthritis Hypothyroidism Renal calculi Environmental and seasonal allergies Nocturnal hypoxia Abnormal nuclear stress test Diabetes HTN (hypertension) Cardiomyopathy Bilateral nephrolithiasis Retention of urine Acid reflux Surgical History Status post total left knee replacement History of total left knee replacement (TKR) Hx of lithotripsy (2018) History of total right knee replacement (2011) Hx of repair of right rotator cuff (2013) History of cystoscopy Hx of tubal ligation History of hand surgery Family History Family History Brother Breast cancer Social History Social History Household Members: Spouse Household Members Other:: lives w/her grandson Housing: House Are you a primary inspector health care facilities to a significant other at home: Yes (grandson 17 yrs) Do you presently have visiting nurse or other home services: No Alcohol intake: current Alcohol intake frequency: holidays/special occasions only Comment: post op left knee, WBAT Patient Tobacco Use Status: Never used Tobacco Advance Directives: No Advance Directives Information Provided: Yes service: No Current occupational status: disabled Current occupation: rt handed Gender identity: Female Physical Exam ED Vital Signs: Vital Signs - 24 hr 04/12/24 13:24 Temperature 98.1 F Pulse Rate 85 Respiratory Rate 20 Blood Pressure 112/62 Pulse Oximetry 97 Oxygen Delivery Method Room Air BMI result Body Mass Index 44.6 Vital signs have been reviewed and appear to be correct. Blood pressure normal. Heart rate normal. Respiratory rate normal. Temperature normal. Oxygen saturation normal. Const General: cooperative and no acute distress Orientation/consciousness: oriented to person, oriented to place, oriented to time and patient oriented x3 Limitations: no limitations HENMT Head: Yes normocephalic Ears: external ears normal General nose exam: Normal external nose present Face and sinus: Yes face symmetric Mouth: oropharynx normal and moist mucous membranes Throat: Yes uvula midline Eyes Pupils: Equal, round and reactive pupils present Neck Neck: Yes normal visual inspection and Yes supple Resp Effort & Inspection: normal respiratory effort and able to speak in complete sentences Auscultation: clear to auscultation bilaterally Cardio Rate: regular rate Rhythm: regular rhythm Heart sounds: S1 normal heart sound present and S2 normal heart sound present GI Palpation (GI): Soft to palpation and nontender Auscultation: normoactive bowel sounds General: Yes no CVA tenderness Back/Spine/Pelvis Back: no CVA tenderness Skin General skin exam: elasticity normal and turgor normal Neuro General: oriented to person, oriented to place, oriented to time, patient oriented x3, moves all extremities, no focal motor deficits and CN's II-XI intact bilaterally Cranial nerves: Yes Equal, round and reactive pupils present Cognition (Neuro): normal cognition Extrem General: Yes full ROM, Yes no pedal edema and Yes no calf tenderness Left lower extremity: knee (surgical incision CDI, steri strips in place) Details: tenderness Location: of the distal upper leg, swelling (diffuse) and warmth (with erythema) Location: of the entire knee joint; ROM abnormal and foot Details: vascular exam Details: dorsalis pedis pulse present, posterior tibial pulse present and normal capillary refill Psych Mental Status: mental status grossly normal Affect: normal affect Thought process: Normal thought process present Medications Administered Generic Name Dose Route Start Last Admin Trade Name Freq PRN Reason Stop Dose Admin Lactated Ringer's 1,000 mls @ 999 mls/hr 04/12/24 15:30 04/12/24 15:31 Lr IV 04/12/24 16:30 999 mls/hr .Q1H1M BONI Administration Discontinued Medications Generic Name Dose Route Start Last Admin Trade Name Freq PRN Reason Stop Dose Admin Oxycodone HCl 5 mg 04/12/24 13:46 04/12/24 14:08 Oxycodone Hcl Immed Release 5 Mg Tablet PO 04/12/24 13:47 5 mg ONCE ONE Administration Sodium Zirconium Cyclosilicate 10 gm 04/12/24 14:36 04/12/24 15:31 Sodium Zirconium Cyclosilicate 10 Gm Powd.Pack PO 04/12/24 14:37 10 gm ONCE ONE Administration Medical Decision Making Medical Decision Making MDM Narrative: Patient is a 68-year-old female with history of hypothyroidism, DM, HTN, cardiomyopathy, revision of left TKA on 03/24/24 on lovenox presenting to the ED with complaint of left knee pain after a fall yesterday. On exam patient is awake, A+Ox3, VS WNL, afebrile, normal neurological exam without focal deficits, physical exam findings as above. Given reported symptoms and physical exam findings, initial differential includes but is not limited to fracture, DVT, septic joint. Labs notable for leukocytosis similar to prior values, mi not at transfusion level likely due to recent surgery, mild hyperkalemia, MICAELA, elevated ESR and CRP. X-ray left knee notable for distal femur fracture. Ultrasound of left lower extremities without evidence of DVT. My interpretation is in agreement with the radiologist's interpretation. Case discussed with and pictures sent to karen Puri, she does not feel leg appears acutely infected, advises no antibiotics at this time, recommends application of knee immobilizer, surgery will likely be next week. Patient signed out to JOSÉ MIGUEL Carrasco pending CT head. Differential Diagnosis Differential Diagnoses: The differential diagnosis associated with the presentation includes As per [facility] Admission/Observation Consideration of admission/observation: Escalation of care including admission/observation considered Consult Healthcare Provider Management of the patient was discussed with: [employer] (karen Puri) Lab Data [facility] Lab Attestation statement: I reviewed the patient's lab results. As per [facility] 04/12/24 13:53 04/12/24 13:53 Labs: Lab Results 04/12/24 Range/Units 13:53 WBC 11.3 H (4.8-10.8) X10*3/uL RBC 3.33 L (4.20-5.50) X10*6/uL Hgb 9.1 L (12.0-16.0) g/dl Hct 28.2 L (37.0-47.0) % MCV 84.7 (80.0-98.0) fL MCH 27.3 (27.0-33.0) pg MCHC 32.3 (31.0-35.0) g/dl RDW 14.0 (11.0-16.0) % Plt Count 411 H D (160-400) X10*3/uL MPV 9.0 L (9.4-12.3) fL Immature Gran % (Auto) 0.6 H (0.0-0.4) % Neut % (Auto) 72.1 (45-73) % Lymph % (Auto) 18.6 L (20-40) % [place] % (Auto) 7.1 (2-11) % Eos % (Auto) 1.2 (0-4) % Baso % (Auto) 0.4 (0-2) % Lymph # (Auto) 2.1 (1.2-4.9) X10*3/uL [place] # (Auto) 0.8 (0.1-1.2) X10*3/uL Eos # (Auto) 0.1 (0.0-0.4) X10*3/uL Baso # (Auto) 0.1 (0.0-0.2) X10*3/uL Abs Immat Gran (auto) 0.07 H (0.00-0.03) X10*3/uL Absolute Neuts (auto) 8.2 (2.0-8.3) x10*3/uL Absolute Nucleated RBC 0.000 (0.0-0.012) X10*3/uL Nucleated RBC % (auto) 0.0 (0.0-0.2) /100WBC ESR 100 H (0-20) MM/HR PT 12.6 H (10.9-12.4) SEC INR 1.1 (0.9-1.1) APTT 31.7 (26.0-36.8) SEC Sodium 136 (135-145) mmol/L Potassium 5.3 H D (3.3-5.1) mmol/L Chloride 101 (96-108) mmol/L Carbon Dioxide 25 (22-29) mmol/L Anion Gap 15 (12-20) BUN 18 H (9-16) mg/dL Creatinine 1.45 H (0.5-1.4) mg/dL Estim Creat Clear Calc 45.2 Estimated GFR 36 Random Glucose 148 H (60-115) mg/dL Lactic Acid 2.0 (0.5-2.0) mmol/L Calcium 10.0 D (8.4-10.2) mg/dL Total Bilirubin 0.3 (0.0-1.0) mg/dL AST 45 H (5-31) U/L ALT 29 (0-31) U/L Alkaline Phosphatase 202 H (39-117) U/L C-Reactive Protein 11.79 H (< or = 0.50) mg/dL Total Protein 8.2 H (6.5-8.0) g/dL Albumin 3.7 (3.5-5.0) g/dL Independent Interpretation I performed an independent interpretation of an: Plain X-Ray, Ultrasound and CT Scan Radiology Impression Discussion of test interpretation with radiology: I have reviewed the radiologist's reading. External Record Review External record reviewed: Inpatient record, Office record and Outpatient record Discharge Plan Discharge Clinical Impression: Femur fracture, left, MICAELA (acute kidney injury) Patient Disposition: Still a Patient Prescriptions: No Action pantoprazole 40 mg tablet,delayed release (DR/EC) 40 mg PO QAM Qty: 30 6RF metoprolol succinate 25 mg tablet extended release 24 hr 25 mg PO QAM 90 Days Qty: 90 3RF lisinopril 20 mg tablet 20 mg PO QPM Qty: 90 3RF (АННА) shubham Misc See Rx Instructions .MEDSUPPLY Qty: 1 0RF Rx Instructions: Folding Front wheeled shubham DURATIO 99 DAYS oxycodone 5 mg tablet 5 mg PO Q6H PRN (Reason: Pain, Moderate(Pain Scale 4-6)) 7 Days Qty: 42 0RF Rx Instructions: Partial Fill upon patient request. gabapentin 600 mg Tablet 600 mg PO BID Ozempic 2 mg/dose (8 mg/3 mL) pen injector 2 mg subcut MO mirtazapine 15 mg Tablet 15 mg PO DAILY prazosin 2 mg Capsule 4 mg PO BEDTIME fluticasone propion-salmeterol [Advair HFA] 115-21 mcg/actuation HFA aerosol inhaler 2 puff INHALATION BID PRN (Reason: Shortness Of Breath Or Wheezing) insulin degludec [Tresiba FlexTouch U-100] 100 unit/mL (3 mL) insulin pen 32 unit subcut DAILY enoxaparin 40 mg/0.4 mL Syringe 40 mg subcut Q24H 42 Days Qty: 16.8 0RF celecoxib 200 mg Capsule 200 mg PO BID 30 Days Qty: 60 0RF acetaminophen 325 mg Tablet 650 mg PO Q6H PRN (Reason: Pain, Mild 1-3,Fever,Headache) 30 Days Qty: 240 0RF docusate sodium 100 mg Capsule 100 mg PO BID 30 Days Qty: 60 0RF zolpidem 10 mg tablet 10 mg PO BEDTIME Tab-A-Rito Multivitamin w-iron 18-400 mg-mcg tablet 1 tab PO QAM cholecalciferol (vitamin D3) 50 mcg (2,000 unit) tablet 50 mcg PO QPM aripiprazole 10 mg tablet 10 mg PO QAM loratadine 10 mg tablet 10 mg PO QAM fluticasone propionate 50 mcg/actuation spray,suspension 1 spray intranasal BID docusate sodium 100 mg capsule 100 mg PO DAILY PRN (Reason: Constipation) venlafaxine 150 mg capsule,extended release 24hr 150 mg PO QAM atorvastatin 20 mg tablet 20 mg PO BEDTIME venlafaxine 75 mg capsule,extended release 24hr 75 mg PO QAM metformin 500 mg tablet 500 mg PO BID oxycodone 5 mg tablet 7.5 mg PO Q6H PRN (Reason: severe pain) albuterol sulfate [ProAir HFA] 90 mcg/actuation HFA aerosol inhaler 2 puff PO Q6H PRN (Reason: Pain) latanoprost 0.005 % drops 1 drp ophthalmic (eye) BEDTIME lorazepam 1 mg tablet 1 mg PO BID PRN (Reason: anxiety) (DME) FreeStyle Lite Strips Strip See Rx Instructions Not Applicable DAILY Qty: 10 Rx Instructions: As directed (DME) lancets [TRUEplus Lancets] 33 gauge misc See Rx Instructions topical DAILY Qty: 100 Rx Instructions: As directed Trulicity 0.75 mg/0.5 mL pen injector 0.75 mg subcut .QMONDAY isosorbide mononitrate 30 mg tablet extended release 24 hr 30 mg PO DAILY levothyroxine 112 mcg tablet 112 mcg PO DAILY clotrimazole-betamethasone 1-0.05 % cream 1 appl topical BID 7 Days Qty: 45 0RF Rx Instructions: apply externally a thin coat to the area Print Language: Wallisian
[2024-04-12 13:15] VITALS: BP 118/84; PULSE 82; O2SAT 98
[2024-04-12 13:24] VITALS: BP 112/62; PULSE 85; RESP 20; TEMP 36.7; O2SAT 97; BMI 44.6
[2024-04-12 14:02] LABS: MANUAL DIFF FLAG NO
[2024-04-12 14:03] LABS: Basophils Absolute Auto 0.1 X10*3/uL (0.0-0.2); Basophils Percent Auto 0.4 % (0-2); Eosinophils Absolute Auto 0.1 X10*3/uL (0.0-0.4); Eosinophils Percent Auto 1.2 % (0-4); Hematocrit 28.2 % (37.0-47.0); Hemoglobin 9.1 g/dl (12.0-16.0); Imm Gran Abs Auto 0.07 X10*3/uL (0.00-0.03); Imm Gran Pct Auto 0.6 % (0.0-0.4); Lymphocytes Absolute Auto 2.1 X10*3/uL (1.2-4.9); Lymphocytes Percent Auto 18.6 % (20-40); Mean Corpuscular HGB Conc 32.3 g/dl (31.0-35.0); Mean Corpuscular Hemoglobin 27.3 pg (27.0-33.0); Mean Corpuscular Volume 84.7 fL (80.0-98.0); Monocytes Absolute Auto 0.8 X10*3/uL (0.1-1.2); Monocytes Percent Auto 7.1 % (2-11); Neutrophils Absolute Auto 8.2 x10*3/uL (2.0-8.3); Neutrophils Percent Auto 72.1 % (45-73); Platelet Count 411 X10*3/uL (160-400); Red Blood Count 3.33 X10*6/uL (4.20-5.50); White Blood Count 11.3 X10*3/uL (4.8-10.8)
[2024-04-12] MEDS: oxyCODONE HCl Immed Release 5 MG TABLET PO (14:08)
[2024-04-12 14:19] LABS: INTERNATIONAL NORM RATIO 1.1 (0.9-1.1); Prothrombin Time 12.6 SEC (10.9-12.4)
[2024-04-12 14:22] LABS: Partial Thromboplastin Time 31.7 SEC (26.0-36.8)
[2024-04-12 14:33] LABS: Alanine Aminotransferase 29 U/L (0-31); Albumin Level 3.7 g/dL (3.5-5.0); Anion Gap 15 (12-20); Aspartate Amino Transferase 45 U/L (5-31); Bilirubin Total 0.3 mg/dL (0.0-1.0); Blood Urea Nitrogen 18 mg/dL (9-16); C Reactive Protein 11.79 mg/dL (< or = 0.50); Carbon Dioxide 25 mmol/L (22-29); Chloride 101 mmol/L (96-108); Creatinine Clr Calc Pharmacy 45.2; Estimated Glomerular Filt Rate 36; Glucose Random 148 mg/dL (60-115); Potassium 5.3 mmol/L (3.3-5.1); Sodium 136 mmol/L (135-145); Total Protein 8.2 g/dL (6.5-8.0)
[2024-04-12 14:36] LABS: Erythrocyte Sedimentation Rate 100 MM/HR (0-20)
[2024-04-12 15:29] LABS: Alkaline Phosphatase 202 U/L (39-117)
[2024-04-12] MEDS: Lactated Ringers 1,000 ML 999 ML IV (15:31)
[2024-04-12] MEDS: Sodium Zirconium Cyclosilicate 10 GM POWD.PACK PO (15:31)
--- NOTE | 2024-04-12 15:52 | PC.NURSE ---
20g IV access that was established in left AC by this RN, is no longer flushing. Patient reports pain, no sign of infiltrate, but IV is not flushing. IV access removed. Attempted to obtain new access, but was unsuccessful. 2nd RN (Jerome Davalos) to attempt IV access. Unable to infuse LR as ordered at this time. Will resume LR infusion once new IV access is established.
--- NOTE | 2024-04-12 16:46 | PC.NURSE ---
22g IV access established by Shaila Vidales RN. LR infusing as ordered. Provider aware of delayed infusion due to lack of IV access.
[2024-04-12 22:12] VITALS: RESP 18
[2024-04-12] MEDS: ondansetron HCL 4 MG/2 ML VIAL IVPUSH (22:12)
[2024-04-12] MEDS: HYDROmorphone HCl 1 MG/ML SYRINGE IVPUSH (22:12)
[2024-04-12 23:16] VITALS: BP 118/69; PULSE 90; RESP 18; TEMP 36.7; O2SAT 97
[2024-04-13] MEDS: oxyCODONE HCl Immed Release 5 MG TABLET PO ×4 (02:13→20:16)
--- NOTE | 2024-04-13 02:14 | PC.NURSE ---
Pt requested pain meds Pt medicated per apr Plan of care ongoing.
[2024-04-13 03:12] VITALS: BP 101/60; PULSE 77; RESP 18; TEMP 36.8; O2SAT 96
--- NOTE | 2024-04-13 03:45 | MHC.EDTECH ---
Knee immobilizer placed. Tolerated well
[2024-04-13 06:34] VITALS: BP 122/68; PULSE 80; RESP 16; TEMP 36.7; O2SAT 98
--- NOTE | 2024-04-13 08:14 | PC.NURSE ---
medication reconciliation verified w/ patient. provider notified/aware. will administer medication when able/verified by pharmacy.
--- NOTE | 2024-04-13 09:19 | PHA.MEDREC ---
Pharmacy Consult ? Medication Reconciliation Pharmacy has completed the medication reconciliation. RN COMPLETED MED REC, RPH REVIEWED
[2024-04-13] MEDS: Insulin Glargine,Hum.rec.anlog 100 UNIT/ML 10 ML VIAL 22 UNIT SUBCUT (09:53)
[2024-04-13] MEDS: Omeprazole 20 MG CAPSULE.DR PO (09:53)
[2024-04-13] MEDS: Enoxaparin Sodium 40 MG/0.4 ML SYRINGE SUBCUT (09:53)
[2024-04-13] MEDS: Metoprolol Succinate ER 25 MG TAB.ER.24H PO (09:53)
[2024-04-13] MEDS: Gabapentin 600 MG TABLET PO ×2 (09:53→20:16)
[2024-04-13] MEDS: Venlafaxine HCl ER 150 MG CAP.ER.24H PO (09:53)
[2024-04-13] MEDS: Loratadine 10 MG TABLET PO (09:53)
[2024-04-13] MEDS: metFORMIN HCl 500 MG TABLET PO ×2 (09:54→20:16)
[2024-04-13] MEDS: Multivitamin TABLET 1 TAB PO (09:54)
[2024-04-13] MEDS: Isosorbide Mononitrate 30 MG TAB.ER.24H PO (09:54)
[2024-04-13] MEDS: Fluticasone/Vilanterol 100/25 BLST.W.DEV 1 PUFF INHALE (09:58)
[2024-04-13] MEDS: Levothyroxine Sodium 112 MCG TABLET PO (09:58)
[2024-04-13] MEDS: Mirtazapine 15 MG TABLET PO (09:58)
[2024-04-13] MEDS: Celecoxib 200 MG CAPSULE PO ×2 (09:58→21:21)
[2024-04-13] MEDS: Fluticasone Propionate Nasal 16 GM SPRAY 1 SPRAY NOSTRIL-B (09:58)
[2024-04-13] MEDS: ARIPiprazole 10 MG TABLET PO (09:58)
[2024-04-13] MEDS: Venlafaxine HCl ER 75 MG CAP.ER.24H PO (09:58)
--- NOTE | 2024-04-13 09:59 | MHC.EDTECH ---
Assisted patient with bedpan x2. changed linen.
[2024-04-13] MEDS: Loperamide HCl 2 MG CAPSULE PO (10:05)
--- NOTE | 2024-04-13 10:08 | PC.NURSE ---
delay in medication administration d/t medication unverified. medication verified/administered. colace held d/t pt having 2 episodes of diarrhea. provider notified/aware. immodium administered per provider order. effectiveness pending.
[2024-04-13 13:16] VITALS: BP 113/58; PULSE 82; RESP 20; TEMP 36.8; O2SAT 93
--- NOTE | 2024-04-13 14:52 | PM.CNOR ---
History of Present Illness HPI Consult date: 04/13/24 Chief complaint: L KNEE REPLACEMENT FALL LAST NIGHT Narrative: 68 yo female s/p revision LT ROGELIO Dr oro 03/24/24 -fall at home last night . She states she was sitting in her chair and she went to get up and could not feel her feet due to swelling and she fell. She was seen in the ED , xrays obtained which showed a left periprosthetic fracture She was placed on observation for PT and CM eval to determine STR placement Review of Systems Review of Systems: Yes all other systems are reviewed and are negative [facility] Past Medical History Medical History Arthritis Hypothyroidism Renal calculi Environmental and seasonal allergies Nocturnal hypoxia Abnormal nuclear stress test Diabetes HTN (hypertension) Cardiomyopathy Bilateral nephrolithiasis Retention of urine Acid reflux Family History Family History Brother Breast cancer Surgical History Surgical History Status post total left knee replacement History of total left knee replacement (TKR) Hx of lithotripsy (2018) History of total right knee replacement (2011) Hx of repair of right rotator cuff (2013) History of cystoscopy Hx of tubal ligation History of hand surgery Social History Social History Household Members: Spouse Household Members Other:: lives w/her grandson Housing: House Are you a primary critical care registered nurse to a significant other at home: Yes (grandson 17 yrs) Do you presently have visiting nurse or other home services: No Alcohol intake: current Alcohol intake frequency: does not drink Comment: post op left knee, WBAT Patient Tobacco Use Status: Never used Tobacco Smoked in Last 30 Days: No Advance Directives: No Advance Directives Information Provided: Yes service: No Current occupational status: disabled Current occupation: rt handed Gender identity: Female Meds Allergies Allergy/AdvReac Type Severity Reaction Status Date / Time Iodinated Contrast Media Allergy Severe itching, Verified 04/12/24 13:26 [IV CONTRAST] hives morphine [Morphine] Allergy Intermediate ITCHING, Verified 04/12/24 13:26 rash tramadol [Ultram] Allergy Intermediate rash, Verified 04/12/24 13:26 itching Active Medications: Current Medications Acetaminophen (Acetaminophen 325 Mg Tablet) 650 mg PO Q6H PRN PRN Reason: Pain, Mild 1-3,Fever,Headache Albuterol Sulfate (Albuterol Sulfate 90 Mcg 8 Gm Inhaler) 2 puff INHALE Q6H PRN PRN Reason: Shortness of Breath/Wheezing Aripiprazole (Aripiprazole 10 Mg Tablet) 10 mg PO DAILY [facility] Last Admin: 04/13/24 09:58 Dose: 10 mg Atorvastatin Calcium (Atorvastatin Calcium 20 Mg Tablet) 20 mg PO BEDTIME [facility] Celecoxib (Celecoxib 200 Mg Capsule) 200 mg PO BID [facility] Last Admin: 04/13/24 09:58 Dose: 200 mg Docusate Sodium (Docusate Sodium 100 Mg Capsule) 100 mg PO BID [facility] Last Admin: 04/13/24 10:08 Dose: Not Given Enoxaparin Sodium (Enoxaparin Sodium 40 Mg/0.4 Ml Syringe) 40 mg SUBCUT Q24H [facility] Last Admin: 04/13/24 09:53 Dose: 40 mg Fluticasone Propionate (Fluticasone Propionate Nasal 16 Gm [place]) 1 spray NOSTRIL-B BID [facility] Last Admin: 04/13/24 09:58 Dose: 1 spray Fluticasone/Vilanterol (Fluticasone/Vilanterol 100/25 Blst.W.Dev) 1 puff INHALE RDAILY [facility] Last Admin: 04/13/24 09:58 Dose: 1 puff Gabapentin (Gabapentin 600 Mg Tablet) 600 mg PO BID [facility] Last Admin: 04/13/24 09:53 Dose: 600 mg Insulin Glargine (Insulin Glargine,Hum.Rec.Anlog 100 Unit/Ml 10 Ml Vial) 22 unit SUBCUT DAILY [facility] Last Admin: 04/13/24 09:53 Dose: 22 unit Isosorbide Mononitrate (Isosorbide Mononitrate 30 Mg Tab.Er.24h) 30 mg PO DAILY [facility]; Protocol Last Admin: 04/13/24 09:54 Dose: 30 mg Latanoprost (Latanoprost 0.005 % Ophth Antoinette 2.5 Ml Drops) 1 drop EYE-BOTH BEDTIME [facility] Levothyroxine Sodium (Levothyroxine Sodium 112 Mcg Tablet) 112 mcg PO DAILY@0630 [facility] Last Admin: 04/13/24 09:58 Dose: 112 mcg Lisinopril (Lisinopril 20 Mg Tablet) 20 mg PO DAILY@1700 [facility]; Protocol Loratadine (Loratadine 10 Mg Tablet) 10 mg PO DAILY [facility] Last Admin: 04/13/24 09:53 Dose: 10 mg Lorazepam (Lorazepam 1 Mg Tablet) 1 mg PO BID PRN PRN Reason: anxiety Metformin HCl (Metformin Hcl 500 Mg Tablet) 500 mg PO BID [facility] Last Admin: 04/13/24 09:54 Dose: 500 mg Metoprolol Succinate (Metoprolol Succinate Er 25 Mg Tab.Er.24h) 25 mg PO DAILY [facility]; Protocol Last Admin: 04/13/24 09:53 Dose: 25 mg Mirtazapine (Mirtazapine 15 Mg Tablet) 15 mg PO DAILY [facility] Last Admin: 04/13/24 09:58 Dose: 15 mg Multivitamins/Vitamin C (Multivitamin Tablet) 1 tab PO DAILY [facility] Last Admin: 04/13/24 09:54 Dose: 1 tab Non-Formulary Medication (Dulaglutide [Trulicity]) 0.75 mg SUBCUT .QMONDAY BONI Non-Formulary Medication (Semaglutide [Ozempic]) 2 mg SUBCUT MO [facility] Omeprazole (Omeprazole 20 Mg Capsule.Dr) 20 mg PO DAILY@0630 [facility] Last Admin: 04/13/24 09:53 Dose: 20 mg Oxycodone HCl (Oxycodone Hcl Immed Release 5 Mg Tablet) 5 mg PO Q4H PRN PRN Reason: severe pain Last Admin: 04/13/24 09:53 Dose: 5 mg Oxycodone HCl (Oxycodone Hcl Immed Release 5 Mg Tablet) 5 mg PO Q6H PRN PRN Reason: Pain, Moderate(Pain Scale 4-6) Prazosin HCl (Prazosin Hcl 1 Mg Capsule) 4 mg PO BEDTIME [facility]; Protocol Venlafaxine HCl (Venlafaxine Hcl Er 75 Mg Cap.Er.24h) 75 mg PO DAILY [facility] Last Admin: 04/13/24 09:58 Dose: 75 mg Venlafaxine HCl (Venlafaxine Hcl Er 150 Mg Cap.Er.24h) 150 mg PO DAILY [facility] Last Admin: 04/13/24 09:53 Dose: 150 mg Vitamin D (Cholecalciferol (Vitamin D3) 25 Mcg Tablet) 50 mcg PO DAILY@1700 [facility] Zolpidem Tartrate (Zolpidem Tartrate 5 Mg Tablet) 10 mg PO BEDTIME [facility] Home Medications ?Medication ?Instructions ?Recorded ?Confirmed ?Last Taken ?Type aripiprazole 10 mg tablet 10 mg PO QAM 11/25/20 04/13/24 04/12/24 History atorvastatin 20 mg tablet 20 mg PO BEDTIME 11/25/20 04/13/24 04/12/24 History blood sugar diagnostic (FreeStyle #10 ea 11/25/20 02/24/24 Unknown History Lite Strips) cholecalciferol (vitamin D3) 50 50 mcg PO QPM 11/25/20 04/13/24 04/12/24 History mcg (2,000 unit) tablet fluticasone propionate 50 1 spray intranasal BID 11/25/20 04/13/24 04/12/24 History mcg/actuation nasal spray,suspension latanoprost 0.005 % eye drops 1 drp ophthalmic (eye) BEDTIME 11/25/20 04/13/24 04/12/24 History loratadine 10 mg tablet 10 mg PO QAM 11/25/20 04/13/24 04/12/24 History lorazepam 1 mg tablet 1 mg PO BID PRN anxiety 11/25/20 04/13/24 04/12/24 History metformin 500 mg tablet 500 mg PO BID 11/25/20 04/13/24 04/12/24 History multivitamin-ferrous 1 tab PO QAM 11/25/20 04/13/24 04/12/24 History fumarate-folic acid 18 mg-400 mcg tablet (Tab-A-Rito Multivitamin w-iron) venlafaxine 150 mg 150 mg PO QAM 11/25/20 04/13/24 04/12/24 History capsule,extended release 24 hr venlafaxine 75 mg capsule,extended 75 mg PO QAM 11/25/20 04/13/24 04/12/24 History release 24 hr zolpidem 10 mg tablet 10 mg PO BEDTIME 11/25/20 04/13/24 04/12/24 History lancets 33 gauge (TRUEplus Lancets) #100 ea 04/14/21 02/24/24 Unknown History isosorbide mononitrate 30 mg 30 mg PO DAILY 01/11/23 04/13/24 04/12/24 History tablet,extended release 24 hr levothyroxine 112 mcg tablet 112 mcg PO DAILY 01/11/23 04/13/24 04/12/24 History gabapentin 600 mg tablet 600 mg PO BID 02/25/24 04/13/24 04/12/24 History mirtazapine 15 mg tablet 15 mg PO BEDTIME 02/25/24 04/13/24 04/12/24 History prazosin 2 mg capsule 4 mg PO BEDTIME 02/25/24 04/13/24 04/12/24 History semaglutide 2 mg/dose (8 mg/3 mL) 2 mg subcut MO 02/25/24 04/13/24 04/06/24 History subcutaneous pen injector (Ozempic) fluticasone propionate 115 2 puff inhalation BID PRN 03/24/24 04/13/24 04/12/24 History mcg-salmeterol 21 mcg/actuation Shortness Of Breath Or Wheezing HFA inhaler (Advair HFA) insulin degludec 100 unit/mL (3 32 unit subcut DAILY 03/24/24 04/13/24 04/12/24 History mL) subcutaneous pen (Tresiba FlexTouch U-100 insulin) albuterol sulfate 90 mcg/actuation 2 puff inhalation Q6H PRN 04/13/24 04/13/24 Unknown History aerosol inhaler Shortness Of Breath baclofen 10 mg tablet 10 mg PO TID PRN muscle spasms 04/13/24 04/13/24 Unknown History Physical Exam Vital Signs: Vital Signs: Last Vital Signs Temp 98.2 F 04/13/24 13:16 Pulse 82 04/13/24 13:16 Resp 20 04/13/24 13:16 BP 113/58 L 04/13/24 13:16 Pulse Ox 93 04/13/24 13:16 O2 Del Method Room Air 04/13/24 13:16 BMI result Body Mass Index 44.6 Const: General: cooperative, healthy appearing and no acute distress Resp: Effort & Inspection: normal respiratory effort and able to speak in complete sentences Cardio: Rate: regular rate Peripheral pulses: Peripheral pulses 2+ throughout GI: Palpation (GI): Soft to palpation Skin: General skin exam: no rashes or lesions noted Extrem: Other: Left knee incision clean dry and intact. Moderate effusion She has full extension She can initiate SLR-no palpatble defect Calf supple non tender NVI Results Labs 04/12/24 13:53 04/12/24 13:53 Labs: Abnormal lab results 04/12/24 Range/Units 13:53 Alkaline Phosphatase 202 H (39-117) U/L H & H 04/12/24 Range/Units 13:53 Hgb 9.1 L (12.0-16.0) g/dl Hct 28.2 L (37.0-47.0) % Coagulation 04/12/24 Range/Units 13:53 INR 1.1 (0.9-1.1) All other labs normal. Diagnostic results Knee CT: image reviewed ( Impression: Acute periprosthetic fracture of the distal femur and proximal tibia.) Assessment and Plan (1) Periprosthetic fracture around internal prosthetic left knee joint, initial encounter: Status: Acute Plan Discussed case with Dr Oro- implant appears to be stable at this time -NWB, ok to perform ROM 0-90 -knee immoblizer when ambulating F/u in office next week for repeat xrays Procedures Date of Service Date of Service: 04/13/24
[2024-04-13 15:22] VITALS: BP 113/58; PULSE 82; O2SAT 93
--- NOTE | 2024-04-13 15:24 | PC.NURSE ---
pt verbalizing increased pain in RLE - prn medication utilized at this time. effectiveness pending.
[2024-04-13] MEDS: Cholecalciferol (Vitamin D3) 25 MCG TABLET 50 MCG PO (16:34)
[2024-04-13] MEDS: lisinopriL 20 MG TABLET PO (16:34)
[2024-04-13 18:35] VITALS: BP 128/65; PULSE 80; RESP 20; TEMP 36.7; O2SAT 97
[2024-04-13] MEDS: Atorvastatin Calcium 20 MG TABLET PO (20:16)
[2024-04-13] MEDS: Docusate Sodium 100 MG CAPSULE PO (20:16)
[2024-04-13] MEDS: Zolpidem Tartrate 5 MG TABLET 10 MG PO (20:16)
--- NOTE | 2024-04-13 20:18 | PC.NURSE ---
assumed care of pt at 20:00. pt reporting 9/10 pain to left knee. medicated per mar with oxycodone and bedtime medications. took pills whole no issues. waiting for pharmacy to brig remainder of medications. call armenta within reach, plan of care continues.
[2024-04-13] MEDS: Prazosin HCL 1 MG CAPSULE 4 MG PO (21:21)
[2024-04-13] MEDS: Latanoprost 0.005 % Ophth Sol 2.5 ML DROPS 1 DROP EYE-BOTH (21:21)
[2024-04-14] MEDS: oxyCODONE HCl Immed Release 5 MG TABLET PO ×5 (03:13→21:53)
[2024-04-14 03:17] VITALS: BP 106/56; PULSE 83; RESP 18; TEMP 36.6; O2SAT 93
[2024-04-14] MEDS: Omeprazole 20 MG CAPSULE.DR PO (05:44)
[2024-04-14] MEDS: Fluticasone Propionate Nasal 16 GM SPRAY 1 SPRAY NOSTRIL-B ×2 (08:24→21:54)
[2024-04-14] MEDS: Fluticasone/Vilanterol 100/25 BLST.W.DEV 1 PUFF INHALE (08:24)
[2024-04-14] MEDS: Metoprolol Succinate ER 25 MG TAB.ER.24H PO (08:25)
[2024-04-14] MEDS: Isosorbide Mononitrate 30 MG TAB.ER.24H PO (08:25)
[2024-04-14] MEDS: Gabapentin 600 MG TABLET PO ×2 (08:26→20:37)
[2024-04-14] MEDS: Multivitamin TABLET 1 TAB PO (08:26)
[2024-04-14] MEDS: Venlafaxine HCl ER 150 MG CAP.ER.24H PO (08:26)
[2024-04-14] MEDS: Loratadine 10 MG TABLET PO (08:26)
[2024-04-14] MEDS: metFORMIN HCl 500 MG TABLET PO ×2 (08:26→20:37)
[2024-04-14] MEDS: Insulin Glargine,Hum.rec.anlog 100 UNIT/ML 10 ML VIAL 22 UNIT SUBCUT (08:27)
[2024-04-14] MEDS: Celecoxib 200 MG CAPSULE PO ×2 (09:29→21:55)
[2024-04-14] MEDS: Venlafaxine HCl ER 75 MG CAP.ER.24H PO (09:29)
[2024-04-14] MEDS: Mirtazapine 15 MG TABLET PO (09:29)
[2024-04-14] MEDS: ARIPiprazole 10 MG TABLET PO (09:29)
[2024-04-14] MEDS: Enoxaparin Sodium 40 MG/0.4 ML SYRINGE SUBCUT (10:40)
--- NOTE | 2024-04-14 10:46 | MHC.CM.ED ---
Addendum entered by Lien Mcrae 04/14/24 11:44: [facility] is able to offer a bed and is in the process of obtaining insurance auth. Original Note: Received case management consult over the weekend. Patient came to the ER due to fall with left knee pain. Work up indicated left knee joint periprosthetic fracture. Per ortho, NWB. Possible surgery next week. Physical therapy eval completed. Short term rehab is recommended. Met with patient and transfer worker in regards to discharge planning. Patient lives with her and grandson, uses a walker/cane for mobility, has [employer] hours through [facility] and is active with [facility] for PT. PCP verified. Copy of HCP verified to be on file. Patient is agreeable to STR but has never been. Referral broadcasted within 15 miles of patient's home to all faciltiies that are contracted with patient's insurance. [facility], [facility] and [facility] able to [facility] a bed. [facility], [facility], [facility] and [facility] are still reviewing to see if they can offer a bed. Patient's choices: 1)[facility] 2) [facility] 3) [facility]. Continue to monitor for d/c needs.
[2024-04-14 11:34] LABS: Influenza A PCR NEGATIVE (Negative); Influenza B PCR NEGATIVE (Negative); Resp Syncy Virus RNA Qual PCR NEGATIVE (Negative); SARS COV2 PCR INHOUSE NEGATIVE (Negative)
[2024-04-14 13:31] VITALS: BP 103/56; PULSE 83; RESP 18; TEMP 36.9; O2SAT 94
[2024-04-14] MEDS: Cholecalciferol (Vitamin D3) 25 MCG TABLET 50 MCG PO (17:12)
[2024-04-14] MEDS: lisinopriL 20 MG TABLET PO (17:12)
[2024-04-14 20:33] LABS: Glucose, Whole Blood 132 mg/dL (60-115)
[2024-04-14] MEDS: Atorvastatin Calcium 20 MG TABLET PO (20:37)
[2024-04-14] MEDS: Zolpidem Tartrate 5 MG TABLET 10 MG PO (20:37)
[2024-04-14 21:55] VITALS: BP 103/56
[2024-04-14] MEDS: Prazosin HCL 1 MG CAPSULE 4 MG PO (21:55)
[2024-04-14] MEDS: Latanoprost 0.005 % Ophth Sol 2.5 ML DROPS 1 DROP EYE-BOTH (22:04)
[2024-04-14 22:11] VITALS: BP 126/66; PULSE 73; RESP 16; TEMP 36.6; O2SAT 96
[2024-04-14 23:29] VITALS: BP 126/66; PULSE 73; RESP 16; TEMP 36.6
[2024-04-15] MEDS: oxyCODONE HCl Immed Release 5 MG TABLET PO ×3 (03:05→13:04)
--- NOTE | 2024-04-15 04:22 | PC.NURSE ---
Assumed care of patient . Patient c/o left knee pain , medicated with Oxycodone per apr. Patient resting at time.
[2024-04-15 05:23] VITALS: BP 122/61; PULSE 85; RESP 18; TEMP 37; O2SAT 96
[2024-04-15] MEDS: Omeprazole 20 MG CAPSULE.DR PO (05:24)
[2024-04-15] MEDS: Levothyroxine Sodium 112 MCG TABLET PO (05:24)
[2024-04-15 07:40] LABS: Glucose, Whole Blood 109 mg/dL (60-115)
[2024-04-15 08:43] VITALS: BP 152/71; PULSE 82; RESP 20; TEMP 36.7; O2SAT 98
[2024-04-15] MEDS: Fluticasone/Vilanterol 100/25 BLST.W.DEV 1 PUFF INHALE (08:50)
[2024-04-15 08:53] VITALS: PULSE 87; RESP 18; O2SAT 98
[2024-04-15] MEDS: metFORMIN HCl 500 MG TABLET PO (09:23)
[2024-04-15] MEDS: Isosorbide Mononitrate 30 MG TAB.ER.24H PO (09:23)
[2024-04-15] MEDS: ARIPiprazole 10 MG TABLET PO (09:23)
[2024-04-15] MEDS: Multivitamin TABLET 1 TAB PO (09:23)
[2024-04-15] MEDS: Metoprolol Succinate ER 25 MG TAB.ER.24H PO (09:24)
[2024-04-15] MEDS: Gabapentin 600 MG TABLET PO (09:24)
[2024-04-15] MEDS: Loratadine 10 MG TABLET PO (09:24)
[2024-04-15] MEDS: Celecoxib 200 MG CAPSULE PO (09:24)
[2024-04-15] MEDS: Docusate Sodium 100 MG CAPSULE PO (09:24)
[2024-04-15] MEDS: Mirtazapine 15 MG TABLET PO (09:25)
[2024-04-15] MEDS: Venlafaxine HCl ER 75 MG CAP.ER.24H PO (09:25)
[2024-04-15] MEDS: Venlafaxine HCl ER 150 MG CAP.ER.24H PO (09:26)
[2024-04-15] MEDS: Insulin Glargine,Hum.rec.anlog 100 UNIT/ML 10 ML VIAL 22 UNIT SUBCUT (09:27)
[2024-04-15] MEDS: Enoxaparin Sodium 40 MG/0.4 ML SYRINGE SUBCUT (09:27)
[2024-04-15] MEDS: Fluticasone Propionate Nasal 16 GM SPRAY 1 SPRAY NOSTRIL-B (09:28)
--- NOTE | 2024-04-15 09:44 | MHC.CM.ED ---
Patient remains in ER overflow. Insurance auth has been obtained from [facility]. Patient can leave at 1pm. Sammie BAILEY booked. [facility] with chart. Patient, Carol HERNANDEZ and Danita VALDEZ aware. Continue to monitor for d/c needs.
[2024-04-15 10:12] LABS: Anion Gap 16 (12-20); Blood Urea Nitrogen 15 mg/dL (9-16); Carbon Dioxide 24 mmol/L (22-29); Chloride 102 mmol/L (96-108); Creatinine Clr Calc Pharmacy 59.6; Estimated Glomerular Filt Rate 49; Glucose Random 154 mg/dL (60-115); Potassium 4.3 mmol/L (3.3-5.1); Sodium 138 mmol/L (135-145)
[2024-04-15 11:48] LABS: Glucose, Whole Blood 136 mg/dL (60-115)
[2024-04-15 12:41] VITALS: BP 121/59; PULSE 78; RESP 20; TEMP 36.9; O2SAT 96
--- NOTE | 2024-04-15 12:55 | MHC.EDTECH ---
Assisted Patient with bedpan & personal hygiene.
[2024-04-15 12:56] VITALS: BP 121/59; PULSE 78; RESP 20; TEMP 36.9; O2SAT 96
== END 2024-04-15 13:05 | disposition skilled nursing facility (03) ==
PROVIDERS: Physician Assistant; Registered Nurse Emergency; Emergency Provider Emergency Medicine; PCP Family Medicine
DX: M25.562 Pain in left knee (principal); R51.9 Headache, unspecified; R10.9 Unspecified abdominal pain; R60.0 Localized edema; E11.9 Type 2 diabetes mellitus without complications; Z03.818 Encounter for observation for suspected exposure to other biological agents ruled out; Z51.81 Encounter for therapeutic drug level monitoring; Z79.4 Long term (current) use of insulin; Z79.899 Other long term (current) drug therapy
CPT/HCPCS: 0241U; 36415; 70450; 73564; 73700; 80048; 80053; 82947; 83605; 85025; 85610; 85652; 85730; 86140; 87040; 93971; 94640; 96361; 96372; 96374; 96375; 97161; 99285; J1171; J1650; J2405; J7120

== ENCOUNTER → 2024-04-12 13:09 | Outpatient (BNV) | payer OTHER, SELFPAY | PROVIDERS: Emergency Provider Emergency Medicine; PCP Family Medicine; Visit Provider Nuclear Medicine | DX: S72.402A Unspecified fracture of lower end of left femur, initial encounter for closed fracture (principal); S82.102A Unspecified fracture of upper end of left tibia, initial encounter for closed fracture; H31.119 Age-related choroidal atrophy, unspecified eye; I67.89 Other cerebrovascular disease; R22.42 Localized swelling, mass and lump, left lower limb; L53.9 Erythematous condition, unspecified; R20.8 Other disturbances of skin sensation | CPT/HCPCS: 70450; 73564; 73700; 93971 ==

== ENCOUNTER → 2024-04-12 13:46 | Outpatient (BNV) | payer OTHER, SELFPAY | PROVIDERS: Emergency Provider Emergency Medicine; PCP Family Medicine; Visit Provider Physician Assistant | DX: M97.12XA Periprosthetic fracture around internal prosthetic left knee joint, initial encounter (principal) | CPT/HCPCS: 99024 ==

== ENCOUNTER 2024-04-23 11:10 | Outpatient (REF) | payer OTHER, SELFPAY ==
--- NOTE | ~2024-04-23 | XR_ITS ---
EXAMINATION: XR FEMUR 2 VIEWS LEFT HISTORY: M79.606 - Pain in leg, unspecified COMPARISON: Comparison is made with the prior examination dated 04/12/2024. Correlation is also made with a CT of the left knee dated 04/12/2024. FINDINGS: AP and lateral views of the left femur are submitted. 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 Again seen is a vertically oriented minimally displaced fracture of the medial aspect of the distal femoral metaphysis. The appearance is not significantly changed from the prior study. A small amount of periosteal reaction is noted involving the medial proximal tibial metaphysis, consistent with a healing fracture. There is mild narrowing of the hip joint. The soft tissues are unremarkable. XR/XR femur LT 2V IMPRESSION: Status post left total knee arthroplasty. Oblique minimally displaced fracture of the medial aspect of the distal femoral metaphysis without change. Healing fracture of the medial proximal tibial metaphysis. Electronically signed by: Jose Brandon MD 04/24/2024 10:11 AM AUD[facility]
--- OUTSIDE RECORDS SUMMARY | 2024-04-24 13:06 | XMS_ITS | Encounter Summary ---
Author Organization [employer] [facility] Address [address] [place] [address] Care Team Providers Care Management Professionals Name Role Phone Matias Bowling MD Primary Care Provider [phone] Encounter Details Date Type Department Care Team (Late st Contact Info) Description 04/16/2024 Lab Requisition [facility] - Main Lab [address] [place] [address] Matias Bowling MD [address] [place] [address] [address], [phone] Essential (primary) hypertension Social History Tobacco [...] LAB CHEMISTRY METHOD 04/16/2024 11:36 AM EST [facility] Potassium 4.2 3.5 - 5.5 mmol/L LAB CHEMISTRY METHOD 04/16/2024 11:36 AM EST [facility] Chloride 103 96 - 110 mmol/L LAB CHEMISTRY METHOD 04/16/2024 11:36 AM [facility] CO2 25 21 - 32 mmol/L LAB CHEMISTRY METHOD 04/16/2024 11:36 AM [facility] Anion Gap 13(H) 3 - 11 LAB CHEMISTRY METHOD 04/16/2024 11:36 AM [facility] Glucose 96 70 - 100 mg/dL LAB CHEMISTRY METHOD 04/16/2024 11:36 AM [facility] BUN 13 5 - 25 mg/dL LAB CHEMISTRY METHOD 04/16/2024 11:36 AM [facility] Creatinine 1.13(H) 0.50 - 1.10 mg/dL LAB CHEMISTRY METHOD 04/16/2024 11:36 AM [facility] eGFR 53(L) >=60 mL/min/1. 73m2 LAB CHEMISTRY METHOD 04/16/2024 11:36 AM [facility] Comment:Calculation based on the??Chronic Kidney Disease Epidemiology Collaboration (CKD-EPI) equation refit??without adjustment for race. BUN/Creatinine Ratio 11.5 LAB CHEMISTRY METHOD 04/16/2024 11:36 AM [facility] Calcium 9.1 8.5 - 10.5 mg/dL LAB CHEMISTRY METHOD 04/16/2024 11:36 AM [facility] AST (SGOT) 31 10 - 42 unit/L LAB CHEMISTRY METHOD 04/16/2024 11:36 AM [facility] ALT (SGPT) 33 10 - 60 unit/L LAB CHEMISTRY METHOD 04/16/2024 11:36 AM [facility] Alkaline Phosphatase 181(H) 42 - 121 unit/L LAB CHEMISTRY METHOD 04/16/2024 11:36 AM [facility] Total Protein 7.5 6.0 - 8.0 g/dL LAB CHEMISTRY METHOD 04/16/2024 11:36 AM [facility] Albumin 3.3 3.2 - 5.0 g/dL LAB CHEMISTRY METHOD 04/16/2024 11:36 AM [facility] Total Bilirubin 0.4 0.0 - 1.4 mg/dL LAB CHEMISTRY METHOD 04/16/2024 11:36 AM [facility] Blood Venous blood specimen / Unknown Venipuncture / Unknown 04/16/2024 7:33 AM EST 04/16/2024 10:20 AM EST us Matias Bowling MD LAB BLOOD ORDERABLES Final Resul t [facility] [address] [place] [address], * (ABNORMAL) Complete blood count (04/16/2024 7:33 AM EST) WBC 11.5(H) 4.8 - 10.8 K/mcL LAB HEMETOLOGY METHOD 04/16/2024 11:12 AM [facility] RBC 3.70(L) 3.80 - 4.80 M/[facility] LAB HEMETOLOGY METHOD 04/16/2024 11:12 AM [facility] Hemoglobin 9.9(L) 11.5 - 16.0 g/dL LAB HEMETOLOGY METHOD 04/16/2024 11:12 AM [facility] Hematocrit 32.1(L) 35.0 - 47.0 % LAB HEMETOLOGY METHOD 04/16/2024 11:12 AM [facility] MCV 87.5 79.0 - 98.0 FL LAB HEMETOLOGY METHOD 04/16/2024 11:12 AM [facility] MCH 27.0 27.0 - 32.0 pcg LAB HEMETOLOGY METHOD 04/16/2024 11:12 AM [facility] MCHC 30.8(L) 32.0 - 37.0 g/dL LAB HEMETOLOGY METHOD 04/16/2024 11:12 AM [facility] RDW 14.2 11.0 - 15.0 % LAB HEMETOLOGY METHOD 04/16/2024 11:12 AM EST [facility] Platelets 443(H) 130 - 400 K/mcL LAB HEMETOLOGY METHOD 04/16/2024 11:12 AM EST [facility] MPV 9.8 7.0 - 11.0 FL LAB HEMETOLOGY METHOD 04/16/2024 11:12 AM EST [facility] NRBC 0.0 <1.0 % LAB HEMETOLOGY METHOD 04/16/2024 11:12 AM EST [facility] NRBC Absolute 0.00 <0.10 K/mcL LAB HEMETOLOGY METHOD 04/16/2024 11:12 AM EST [facility] Blood Venous blood specimen / Unknown Venipuncture / Unknown 04/16/2024 7:33 AM EST 04/16/2024 10:20 AM EST us Matias Bowling MD LAB BLOOD ORDERABLES Final Resul t [facility] [address] [place] [address], documented in this encounter Visit Diagnoses Diagnosis Essential (primary) hypertension Unspecified essential hypertension documented in this encounter Care Teams Management Professionals Relationship Specialty Start Date End Date Matias Bowling MD [address] [place] [phone] PCP - General Family Medicine 04/16/24 documented as of this encounter
--- OUTSIDE RECORDS SUMMARY | 2024-04-24 13:06 | XMS_ITS | Encounter Summary ---
Author Organization [employer] Address [address] [facility] [address] [place] [address] Care Team Providers Care Customer Service Administrator Name Role Phone Ethel Chase DO Primary Care Provider [phone] Vaishnavi Laird PharmD Unavailable [phone] Reason for Visit * Reason Onset Date Comments Pre op 01/27/2024 Encounter Details Date Type Department Care Team ([facility] st Contact Info) Description 01/27/2024 Telephone [facility] MEDICINE [address] [place] [address] Ethel Chase DO [address] [place] [address] Pre op Social History Tobacco Use Types [...] op on 02/14/24 at 02:15PM. Sujata at [facility] stated she will be contacting pt to provide appointment details. Reminder letter sent via mail Date of Surgery: 03/24/24 Surgical procedure being done: left knee revision surgery Type of anesthesia: general anesthesia with block Lab needed: Yes include A1c EKG: Yes Surgeon's name: Dr Oro Facility name: [facility] Orthopedic Surgeon's office number: [phone] Surgeon's office fax number: [phone] Contact name (person you spoke with): Sujata Last office note from surgeon requested: Yes Send Message to Venus Hensley and Matias Crowell documented in this encounter Plan of Treatment Not on file documented as of this encounter Goals Goal [...] documented as of this encounter Care Teams Customer Service Administrator Relationship Specialty Start Date End Date Ethel Chase DO [address] [place] [address] PCP - General Family Medicine 10/12/13 Vaishnavi Laird PharmD [address] [place] [address] Pharmacist Internal Medicine 02/07/23 documented as of this encounter
--- OUTSIDE RECORDS SUMMARY | 2024-04-24 13:06 | XMS_ITS | Encounter Summary ---
Author Organization [employer] Address [address] [place] [address] 7[address] [place] [address] Care Team Providers Care Industrial Waste Treatment Technician Name Role Phone Ethel Chase DO Primary Care Provider Vaishnavi Laird PharmD Unavailable [phone] Reason for Visit * Reason Comments Med Refill Encounter Details Date Type Department Care Team (Late st Contact Info) Description 06/06/2022 Refill [facility] MEDICINE [address] [place] [address] Ethel Chase DO [address] [place] [address] Other chronic pain Social History Tobacco Use [...] on file documented as of this encounter Visit Diagnoses Diagnosis Other chronic pain documented in this encounter Additional Health Concerns Assessment Noted Time PHQ-9 Depression Total Score: 0 02/08/20 22 10:43 AM EST documented as of this encounter Care Teams Industrial Waste Treatment Technician Relationship Specialty Start Date End Date Ethel Chase DO [address] [place] [address] PCP - General Family Medicine 10/12/13 Vaishnavi Laird PharmD [address] [place] [address] Pharmacist Internal Medicine 02/07/23 documented as of this encounter
--- OUTSIDE RECORDS SUMMARY | 2024-04-24 13:06 | XMS_ITS | Encounter Summary ---
Author Organization [employer] Address [address] [place] [address] [address] [place] [address] Care Team Providers Care Dental Practitioner Name Role Phone Ethel Chase DO Primary Care Provider [phone] Vaishnavi Laird PharmD Unavailable [phone] Reason for Visit * Reason Comments Med Refill Encounter Details Date Type Department Care Team (Late st Contact Info) Description 04/06/2022 Refill [facility] MEDICINE [address] [place] [address] Ethel Chase DO [address] [place] [address] Other chronic pain Social History Tobacco Use [...] documented as of this encounter Care Teams Dental Practitioner Relationship Specialty Start Date End Date Ethel Chase DO [address] [place] [address] PCP - General Family Medicine 10/12/13 Vaishnavi Laird PharmD [address] [place] [address] Pharmacist Internal Medicine 02/07/23 documented as of this encounter
--- OUTSIDE RECORDS SUMMARY | 2024-04-24 13:06 | XMS_ITS | Encounter Summary ---
Author Organization [facility] Address [address] [place] [address] Care Team Providers Care Application Internship Name Role Phone Matias Bowling MD Primary Care Provider [phone] Encounter Details Date Type Department Care Team (Late st Contact Info) Description 04/23/[address] [facility] - Main Lab [address] [place] [address] Matias Bowling MD [address] [place] [address] [address] [place], [phone] Essential (primary) hypertension Social History Tobacco [...] LAB CHEMISTRY METHOD 04/23/2024 10:[address] [facility] Potassium 4.4 3.5 - 5.5 mmol/L LAB CHEMISTRY METHOD 04/23/2024 10:[address] [facility] Chloride 109 96 - 110 [...] MD LAB BLOOD ORDERABLES Final Resul t [facility] [address] [place] [address], [place] [phone] * (ABNORMAL) Complete blood count (04/23/2024 5:04 [...] LAB HEMETOLOGY METHOD 04/23/2024 9:[address] [facility] Platelets 333 130 - 400 K/mcL LAB HEMETOLOGY METHOD 04/23/2024 9:[address] [facility] MPV 9.8 7.0 - 11.0 FL LAB HEMETOLOGY METHOD 04/23/2024 9:[address] [facility] NRBC 0.0 <1.0 % LAB HEMETOLOGY METHOD 04/23/2024 9:[address] [facility] NRBC Absolute 0.00 <0.10 K/mcL LAB HEMETOLOGY METHOD 04/23/2024 9:[address] [facility] Blood Venous blood specimen / Unknown Venipuncture / Unknown 04/23/2024 5:04 AM EST 04/23/2024 8:47 AM EST us Matias Bowling MD LAB BLOOD ORDERABLES Final Resul t [facility] [address] [place] [address], documented in this encounter Visit Diagnoses Diagnosis Essential (primary) hypertension Unspecified essential hypertension documented in this encounter Care Teams Application Internship Relationship Specialty Start Date End Date Matias Bowling MD [address] [place] [phone] PCP - General Family Medicine 04/16/24 documented as of this encounter
--- OUTSIDE RECORDS SUMMARY | 2024-04-24 13:06 | XMS_ITS | Encounter Summary ---
Author Organization [employer] Address [address] [facility] 7[address] [place] [address] Care Team Providers Care Medicine Man Name Role Phone ManuelEthel perry Primary Care Provider [phone] Vaishnavi Laird PharmD Unavailable [phone] Encounter Details Date Type Department Care [...] Vaishnavi, PharmD documented as of this encounter Procedures Procedure Name Priority Date/Time Associated Diagnosis Comments BACTERIAL VAGINOSIS PANEL Routine 04/07/2024 10:22 AM EST documented in this encounter Results * (ABNORMAL) Bacterial Vaginosis (04/07/2024 10:22 AM EST) TRICHOMONAS VAGINALIS DETECTION BY PCR NOT DETECTED Not Detect [facility] BACTERIAL VAGINOSIS DETECTION BY PCR NEGATIVE Negative [facility] Comment:The BV organism targ ets of [...] GROUP DETECTION BY PCR DETECTED(A) Not Detect [facility] Kayy glab krusei PCR NOT DETECTED Not Detect [facility] 04/07/2024 10:2 2 AM EST 04/07/2024 3:47 PM EST us Generic External Data Provider LAB MICROBIOLOGY - GENERAL ORDERABLES Final Result [facility] [address] [place] [address] [phone] documented in this encounter Visit Diagnoses Not on filedocumented in this encounter Additional Health Concerns Assessment Noted Time PHQ-9 Depression Total Score: 8 10/18/19 24 11:35 AM EDT documented as of this encounter Care Teams Medicine Man Relationship Specialty Start Date End Date Ethel Chase DO [address] [place] [address] PCP - General Family Medicine 10/12/13 Vaishnavi Laird PharmD [address] [place] [address] Pharmacist Internal Medicine 02/07/23 documented as of this encounter
--- OUTSIDE RECORDS SUMMARY | 2024-04-24 13:06 | XMS_ITS | Clinical Summary ---
Author Organization [employer] Address [address] [place] [address] Care Team Providers Care Calibrator Barometers Name Role Phone Ethel Chase Primary Care Provider Vaishnavi Laird PharmD Unavailable [phone] Allergies Active Allergy Reactions Criticality Noted [...] FOR ANXEITY 023 Active Continuous Blood Gluc Earth Science Teacher (FreeStyle Gerard 2 [place]) deviceIndications:P oorly controlled diabetes mellitus ([facility]) Use to scan sensor at least every 8 hours, as directed, for CGM 1 each 023 Active Alcohol Swabs (Alcohol Pads) 70 % padsIndications:Poo rly controlled diabetes mellitus ([facility]) Use as directed daily prior to insulin [...] glucose blood (FreeStyle Precision Angel Test) test stripIndications:Po mabel controlled diabetes mellitus ([facility]) USE DIRECTED TO TEST BLOOD SUGAR UP TO TWICE DAILY DIRECTED 50 strip 5 024 Active levothyroxine (Synthroid, Levoxyl) 112 MCG tablet TAKE 1 TABLET BY MOUTH EVERY MORNING BEFORE BREAKFAST 90 tablet 3 024 Active gabapentin (Neurontin) 600 MG tablet TAKE 1 TABLET BY MOUTH TWICE DAILY IN THE MORNING AND AT BEDTIME 60 tablet 5 024 Active fluticasone-salmete rol (Advair) 115-21 MCG/ACT inhaler Inhale 2 puffs [...] 024 2024 Active OneTouch Delica Lancets 33G miscIndications:Typ e 2 diabetes mellitus without complication, without long-term current use of insulin ([facility]) USE TO TEST BLOOD SUGAR TWICE DAILY 100 each Active Ventolin HFA 108 (90 Base) MCG/ACT inhaler INHALE 2 PUFFS BY MOUTH EVERY 4 HOURS NEEDED FOR WHEEZING OR SHORTNESS OF BREATH 18 g 1 Active isosorbide mononitrate ER (Imdur) 30 MG 24 hr tablet TAKE 1 TABLET BY MOUTH EVERY MORNING 90 tablet 1 Active glucagon (Baqsimi Two Pack) 3 MG/DOSE nasal powderIndications:T ype 2 diabetes mellitus without complication, without long-term current use of insulin ([facility]) Administer 3 mg via 1 device into the nostril for hypoglycemia with loss of consciousness. If no response after 15 minutes administer an additional dose via 2nd device into other nostril. 2 each Active Semaglutide, 2 MG/DOSE, (Ozempic, 2 MG/DOSE,) 8 MG/3ML solution pen-injectorIndicat ions:Type 2 diabetes mellitus without complication, without long-term current use of insulin ([facility]) Inject 2 mg under the skin 1 (one) time per week. 3 mL Active glucose 4 g chewable tablet Chew 4 tablets (16 g) if needed for low blood sugar (BG < 70 mg/dL). 20 tablet 5 024 2024 Active Continuous Glucose Sensor (FreeStyle Gerard 2 Sensor) miscIndications:Poo rly controlled diabetes mellitus ([facility]) USE DIRECTED CHANGE EVERY 14 DAYS 2 [...] 024 Active docusate sodium (Colace) 100 MG capsuleIndications: Constipation, unspecified constipation type TAKE 1 CAPSULE BY MOUTH TWICE DAILY IN THE MORNING AND AT BEDTIME 180 capsule 3 024 Active Calcium Carb-Cholecalcifero l (Oyster Shell Calcium w/D) 500-5 MG-MCG tabletIndications:O steopenia, unspecified location TAKE 1 TABLET BY MOUTH TWICE DAILY IN THE MORNING AND IN THE EVENING 180 tablet 1 024 Active Multiple Vitamins-Iron (Tab-A-Rito/Iron) tablet TAKE 1 TABLET BY MOUTH EVERY MORNING WITH FOOD 90 tablet 1 024 Active insulin pen needle 32G x 4 mm miscIndications:Typ e 2 diabetes mellitus without complication, without long-term current use of insulin ([facility]) Use to inject insulin 1 times daily 100 each 3 024 Active insulin degludec (Tresiba FlexTouch) 100 UNIT/ML injectionIndication s:Type 2 diabetes mellitus without complication, without long-term current use of insulin ([facility]) Inject 32 units subQ once daily at bedtime. 15 mL 5 024 Active cholecalciferol VITAMIN D (Vitamin D-3) 50 MCG (2000 UT) tablet TAKE 1 TABLET BY MOUTH EVERY EVENING 90 tablet 1 024 Active oxyCODONE-acetamino phen (Percocet) 7.5-325 MG tabletIndications:O ther chronic pain TAKE 1 TABLET BY MOUTH EVERY 6 HOURS NEEDED FOR SEVERE PAIN FOR UP TO 7 DAYS 28 tablet 025 Active aspirin (Aspirin Low Dose) 81 MG EC tabletIndications:T ype 2 diabetes mellitus with other specified complication, unspecified whether exterminator termite insulin use ([facility]) TAKE 1 TABLET BY MOUTH EVERY EVENING 90 tablet 1 025 Active pantoprazole (ProtoNix) 40 MG EC tabletIndications:C hronic gastroesophageal reflux disease TAKE 1 TABLET BY MOUTH EVERY MORNING 90 tablet 1 025 Active pantoprazole (ProtoNix) 40 MG EC tabletIndications:C hronic gastroesophageal reflux disease TAKE 1 TABLET BY MOUTH EVERY MORNING 90 tablet 1 024 2024 Discontinued aspirin (Aspirin Low Dose) 81 MG EC tabletIndications:T ype 2 diabetes mellitus with other specified complication, unspecified whether jail insulin use ([facility]) TAKE 1 TABLET BY MOUTH EVERY EVENING 90 tablet 1 024 2024 Discontinued oxyCODONE-acetamino phen (Percocet) 7.5-325 MG tabletIndications:O ther chronic pain Take 1 tablet by mouth [...] Encounters Date Type Department Care Team Description 04/16/2024 Refill [facility] [address] [place] [address] Ethel Chase DO 04/15/2024 Orders Only GENERIC EXTERNAL DATA DEPARTMENT Provider, Generic External Data 04/14/2024 Orders Only GENERIC EXTERNAL DATA DEPARTMENT Provider, Generic External Data 04/12/2024 Orders Only GENERIC EXTERNAL DATA DEPARTMENT Provider, Generic External Data 04/07/2024 Orders Only GENERIC EXTERNAL DATA DEPARTMENT Provider, Generic External Data 04/07/2024 Refill [facility] [address] [place] [address] Ethel Chase, Type 2 diabetes mellitus with other specified complication, unspecified whether exterminator termite insulin use ([facility]); Chronic gastroesophageal reflux disease 04/06/2024 Refill [facility] [address] [place] [address] tEhel Chase, Other chronic pain 03/26/2024 Orders Only GENERIC EXTERNAL DATA DEPARTMENT Provider, Generic External Data 03/25/2024 Orders Only GENERIC EXTERNAL DATA DEPARTMENT Provider, Generic External Data 03/24/2024 Orders Only GENERIC EXTERNAL DATA DEPARTMENT Provider, Generic External Data 03/23/2024 Refill [facility] [address] [place] [address] Ethel Chase, Other chronic pain 03/23/2024 Telephone [facility] [address] [place] [address] Ethel Chase, Pre-Op 03/23/2024 [facility]ill [facility] [address] [facility] [place] [address] Ethel Chase, Other chronic pain 03/10/2024 Refill [facility] [address] [facility] [place] [address] Ethel Chase, Other chronic pain 03/02/2024 Telephone [facility] [address] [facility] [place] [address] Ethel Chase, Appointment Request 02/24/2024 Telephone [facility] [address] [facility] [place] [address] Susan Guillaume, RN CGM PA for sensors 02/14/2024 Telephone [facility] [address] [facility] [place] [address] Ethel Chase, No Show 02/10/2024 Refill [facility] [address] [facility] [place] [address] Ethle Chase, Other chronic pain 02/05/2024 Refill [facility] [address] [facility] [place] [address] Ethel Chase, Constipation, unspecified constipation type; Osteopenia, unspecified location 01/30/2024 Telephone [facility] [address] [place] [address] Dixon Knutson MA Chart Prep 01/29/2024 10:45 AM EST Office Visit [facility] [address] [place] [address] Ethel Chase DO Type 2 diabetes mellitus [...] knee; Healthcare maintenance 01/29/2024 Travel 01/27/2024 Telephone [facility] [address] [place] [address] Ethel Chase DO Pre op from Last 3 Months Immunizations Name Administration [...] 01/29/2024 10:33 AM EST Plan of Treatment Health Maintenance Due Date [...] 7.1( 4 10:35 AM EST) No Vaishnavi Laird, PharmRina Record your blood sugar as directed Result Component No Vaishnavi Laird, PharmD Procedures Procedure Name Priority Date/Time Associated Diagnosis Comments GLUCOSE, WHOLE BLOOD Routine 04/15/2024 11:44 AM EST BASIC METABOLIC PANEL Routine 04/15/2024 9:44 AM EST GLUCOSE, WHOLE BLOOD Routine 04/15/2024 7:25 AM EST GLUCOSE, WHOLE BLOOD Routine 04/14/2024 8:30 PM EST SARS COV2/INFLUENZA A/B AND RSV RNA QL NAAT Routine 04/14/2024 10:[address] KNEE WO CONTRAST LEFT Routine 04/12/2024 4:[address] HEAD WO CONTRAST Routine 04/12/2024 4 :31 PM EST US VENOUS DUPLEX LE LT Routine 04/12/2024 3:15 PM EST XR KNEE 4+ VIEWS LEFT Routine 04/12/2024 2:32 PM EST BLOOD CULTURE (SECOND) Routine 04/12/2024 1:55 PM EST SED RATE BY MODIFIED WESTERGREN Routine 04/12/2024 1:53 PM EST C-REACTIVE PROTEIN Routine 04/12/2024 1: 53 PM EST COMPREHENSIVE METABOLIC PANEL Routine 04/12/2024 1:53 PM EST LACTIC ACID Routine 04/12/2024 1:53 PM EST APTT Routine 04/12/2024 1:53 PM EST PROTHROMBIN TIME-INR Routine 04/12/2024 1:53 PM EST CBC WITH AUTO DIFFERENTIAL Routine 04/12/2024 1:53 PM EST BLOOD CULTURE (FIRST) Routine 04/12/2024 1:53 PM EST BACTERIAL VAGINOSIS PANEL Routine 04/07/2024 10:22 AM [...] Maintenance Results * (ABNORMAL) Glucose, Whole Blood (04/15/2024 11:44 AM EST) Only the most recent of11 resultswithin the time period is included. Glucose, Whole Blood 136(H) 60 - 115 mg/dL [facility] Comment:METER #: [id number] 04/15/2024 11:4 4 AM EST 04/15/2024 11:48 AM EST us Generic External Data Provider LAB BLOOD ORDERAB LES Final Result Performing Organization Address City/State/[facility] Co de Phone Number [facility] [address] [place] [phone] * (ABNORMAL) Basic Metabolic Panel (04/15/2024 9:44 AM EST) Pathologist [facility] Sodium 138 135 - 145 mmol/L [facility] Potassium 4.3 3.3 - 5.1 mmol/L [facility] Chloride 102 96 - 108 mmol/L [facility] Carbon Dioxide 24 22 - 29 mmol/L [facility] Anion Gap 16 12 - 20 [facility] Urea Nitrogen (BUN) 15 9 - 16 mg/dL [facility] Creatinine, Serum 1.10 0.5 - 1.4 mg/dL [facility] Creatinine Clr Calc Pharmacy 59.6 [facility] Comment:Provided height and weight: 160.02 cm,114.305 kg.eGFR (calculated from the MDRD study equation) and eCrCl(calculated from the Cockcroft-Gault equation) are based ondifferent parameters and may not yield comparable results.If eCrCl result is absurd, please check patient'sheight/weight. Estimated Glomerular Filt Rate 49 [facility] Comment:Chronic Kidney Disea se: Estimated GFR < 60 mL/min/1.47y0Lenesx Kidney Disease: Estimated GFR < 15 mL/min/1.73m2 Glucose 154(H) 60 - 115 mg/dL [facility] Calcium 9.0 8.4 - 10.2 mg/dL [facility] 04/15/2024 9:44 AM EST 04/15/2024 9:54 AM EST us Generic External Data Provider LAB BLOOD ORDERAB LES Final Result [facility] [address] [place] [phone] * SARS-CoV-2 RNA, Influenza A/B, and RSV RNA, Ql NAAT (04/14/2024 10:44 AM EST) Influenza A PCR NEGATIVE Negative [facility] Influenza B PCR NEGATIVE Negative [facility] Resp Syncy Virus RNA Qual PCR NEGATIVE Negative [facility] SARS COV2 PCR NEGATIVE Negative [facility] Comment:All test results mus t be correlated with clinical findings.Negative results do not preclude SARS-CoV2, influenza Avirus, influenza B virus and/or RSV infectionand should not be used as the sole basis for treatment orother patient management decisions. Negative results must becombined with clinical observations, patient history, andepidemiological information.This test has not been evaluated for monitoring treatment ofinfection.This test has been authorized by the FDA under an EmergencyUse Authorization (EUA) for use by authorized laboratories.Testing performed on the [employer] GeneXpert utilizingreal-time RT-PCR.All SARS CoV2 and positive influenza A/B results arereported to [facility]. 04/14/2024 10:4 4 AM EST 04/14/2024 10:54 AM EST us Generic External Data Provider LAB MICROBIOLOGY - GENERAL ORDERABLES Final Result [facility] [address] [facility] [place] [address] [phone] * CT Kne w/o Contrast Left (04/12/2024 4:41 PM EST) Anatomical Region Laterality Modality Lower Extremities, Knee Left Computed Tomography 04/12/2024 4:41 PM EST Narrative 04/12/2024 4:43 PM EST ? [facility] ?[address] ?[place] [address] ? CT Scan Report ? Signed ? Patient: Trish Cameron ?MR#: ?? [id number] ? : 1955 ?Acct:[id number] ? Age/Sex: 68 / F ?ADM Date: 04/12/24 ? Loc: HO.ED ? Attending Dr: ? Ordering Physician: Kierra Betts NP ?? Date of Service: 04/12/24 ?? Procedure(s): CT knee LT wo IV con ?? Accession Number(s): [id number] ? cc: Ethel Chase DO; Kierra Betts NP ? Report Number: ?? [id number]: Total DLP = ?0.00 mGy-cm ? CLINICAL HISTORY: femur fx, recent TKA revision ? CT left knee without contrast ? Comparison: CR/SC - XR KNEE LT 4V - 04/12/24 13:42 EST ? Findings: ?? Status post total knee replacement. Vertical acute fracture of the distal ?? femur. A vertical fracture line is also noted in the medial proximal tibia ?? series 19, image 76. Evaluation is limited by the beam hardening artifact ?? from the prosthesis. There is soft tissue edema and joint effusion. ?? No radiopaque foreign body. ? Impression: ?? Acute periprosthetic fracture of the distal femur and proximal tibia. ? This document has been electronically signed by: David Gonzalez MD on ?? 04/12/2024 16:41:25 ? Dictated By: ?David Gonzalez MD ? Signed By: ?<Electronically signed by David Gonzalez MD in OV> ? 04/12/24 1643 ? DD/ 1641 ? TD/TT: 04/12/24 1641 ? Barrel Rib Matting Machine Operator: ? Procedure Note Carito, Image - 04/12/[address] [place] [address] [address] Scan Report Signed Patient: Trish Cameron MMR#: [id number] : 6Acct:[id number] Age/Sex: 68 / FADM Date: 04/12/24 Loc: HO.ED Attending Dr: Ordering Physician: Kierra Betts NP Date of Service: 04/12/24 Procedure(s): CT knee LT wo IV con Accession Number(s): [id number] cc: Ethel Chase DO; Kierra Betts NP Report Number: [id number]: Total DLP = 0.00 mGy-cm CLINICAL HISTORY: femur fx, recent TKA revision CT left knee without contrast Comparison: CR/SC - XR KNEE LT 4V - 04/12/24 13:42 EST Findings: Status post total knee replacement. Vertical acute fracture of the distal femur. A vertical fracture line is also noted in the medial proximal tibia series 19, image 76. Evaluation is limited by the beam hardening artifact from the prosthesis. There is soft tissue edema and joint effusion. No radiopaque foreign body. Impression: Acute periprosthetic fracture of the distal femur and proximal tibia. This document has been electronically signed by: David Gonzalez MD on 04/12/2024 16:41:25 Dictated By: David Gonzalez MD Signed By: <Electronically signed by David Gonzalez MD in OV> 04/12/241642 DD/ 40 TD/TT: 04/12/241640 Barrel Rib Matting Machine Operator: us [facility] External Provider IMG CT PROCEDURES Edited Result - Final * CT Head w/o Contrast (04/12/2024 4:31 PM EST) Anatomical Region Laterality Modality Head, Neck Computed Tomogra phy 04/12/2024 4:31 PM EST Narrative 04/12/2024 4:32 PM EST ? [facility] ?[address] ?[place] [address] ? CT Scan Report ? Signed ? Patient: Trish Cameron ?MR#: ?? [id number] ? : 1955 ?Acct:[id number] ? Age/Sex: 68 / F ?ADM Date: 04/12/24 ? Loc: HO.ED ? Attending Dr: ? Ordering Physician: Kierra Betts NP ?? Date of Service: 04/12/24 ?? Procedure(s): CT head/brain wo IV con ?? Accession Number(s): [id number] ? cc: Ethel Chase DO; Kierra Betts NP ? Report Number: ?? [id number]: Total DLP = 1028.00 mGy-cm ? CLINICAL HISTORY: fall with head strike, on heparin ? CT Brain without contrast ? Comparison: CT/REG/SR - CT HEAD/BRAIN WO IV CON - 08/27/22 12:59 EDT ? FINDINGS: ? Cortical sulci: There is diffuse prominence of the cortical sulci ?? compatible with age-related atrophy. ? Ventricles: Normal for age ? Brain parenchyma: There is patchy lucency throughout the deep white matter ?? indicating chronic microvascular leukomalacia. ? Extra axial spaces: Normal ? Posterior Fossa: Normal ? Extracranial soft tissues: Normal ? Additional abnormality: None ? IMPRESSION: ? Age-related atrophy with chronic microvascular leukomalacia. ? No hemorrhage, mass effect, or acute findings identified. ? This document has been electronically signed by: David Gonzalez MD on ?? 04/12/2024 16:31:11 ? Dictated By: ?David Gonzalez MD ? Signed By: ?<Electronically signed by David Gonzalez MD in OV> ? 04/12/24 1631 ? DD/ 1631 ? TD/TT: 04/12/24 1631 ? Barrel Rib Matting Machine Operator: ? Procedure Note Carito, Image - 02/16/[address] [address] [address] Scan Report Signed Patient: Trish Cameron [facility]#: [id number] : 1955cct:[id number] Age/Sex: 68 / FADM Date: 04/12/24 Loc: HO.ED Attending Dr: Ordering Physician: Kierra Betts NP Date of Service: 04/12/24 Procedure(s): CT head/brain wo IV con Accession Number(s): [id number] cc: Ethel Chase DO; Kierra Betts NP Report Number: [id number]: Total DLP = 1028.00 mGy-cm CLINICAL HISTORY: fall with head strike, on heparin CT Brain without contrast Comparison: CT/REG/SR - CT HEAD/BRAIN WO IV CON - 08/27/22 12:59 EDT FINDINGS: Cortical sulci: There is diffuse prominence of the cortical sulci compatible with age-related atrophy. Ventricles: Normal for age Brain parenchyma: There is patchy lucency throughout the deep white matter indicating chronic microvascular leukomalacia. Extra axial spaces: Normal Posterior Fossa: Normal Extracranial soft tissues: Normal Additional abnormality: None IMPRESSION: Age-related atrophy with chronic microvascular leukomalacia. No hemorrhage, mass effect, or acute findings identified. This document has been electronically signed by: David Gonzalez MD on 04/12/2024 16:31:11 Dictated By: David Gonzalez MD Signed By: <Electronically signed by David Gonzalez MD in OV> 04/12/24 1631 DD/ 1631 TD/TT: 04/12/24 1631 Barrel Rib Matting Machine Operator: us [facility] External Provider IMG CT PROCEDURES Edited Result - Final * US VENOUS DUPLEX LE LT (04/12/2024 3:15 PM EST) Anatomical Region Laterality Modality Abdomen Ultrasound 04/12/2024 3:15 PM EST Narrative 04/12/2024 3:17 PM EST ? [facility] ?[address] ?[place] [address] ? Ultrasound Report ? Signed ? Patient: Dale Oc,Vane ?MR#: ?? [id number] ? : 1955 ?Acct:[id number] ? Age/Sex: 68 / F ?ADM Date: 04/12/24 ? Loc: HO.ED ? Attending Dr: ? Ordering Physician: Keirra Betts NP ?? Date of Service: 04/12/24 ?? Procedure(s): US venous duplex LE LT ?? Accession Number(s): [id number] ? cc: Ethel Chase DO; Kierra Betts NP ? CLINICAL HISTORY: warmth, erythema, swelling, recent revision ? Venous duplex ultrasound left lower extremity ? Comparison: None ? Findings: ?? The visualized deep veins are fully compressible with normal Doppler color ?? flow and spectral tracings. ?? No popliteal cyst. ? IMPRESSION: ?? 1. Negative for left lower extremity deep vein thrombosis. ? This document has been electronically signed by: David Gonzalez MD on ?? 04/12/2024 15:15:48 ? Dictated By: ?David Gonzalez MD ? Signed By: ?<Electronically signed by David Gonzalez MD in OV> ? 04/12/24 1517 ? DD/ 14 ? TD/TT: 04/12/241514 ? Barrel Rib Matting Machine Operator: ? Procedure Note Alek Arzate - 04/12/2024 [place] [address] Ultrasound Report Signed Patient: Trish Cameron MMR#: [id number] : 1955cct:[id number] Age/Sex: 68 / FADM Date: 04/12/24 Loc: HO.ED Attending Dr: Ordering Physician: Kierra Betts NP Date of Service: 04/12/24 Procedure(s): US venous duplex LE LT Accession Number(s): [id number] cc: Ethel Chase DO; Kierra Betts NP CLINICAL HISTORY: warmth, erythema, swelling, recent revision Venous duplex ultrasound left lower extremity Comparison: None Findings: The visualized deep veins are fully compressible with normal Doppler color flow and spectral tracings. No popliteal cyst. IMPRESSION: 1. Negative for left lower extremity deep vein thrombosis. This document has been electronically signed by: David Gonzalez MD on 04/12/2024 15:15:48 Dictated By: David Gonzalez MD Signed By: <Electronically signed by David Gonzalez MD in OV> 04/12/24 1517 DD/ 1515 TD/TT: 04/12/24 151 Barrel Rib Matting Machine Operator: [facility] External Provider IMG US PROCEDURES Edited Result - Final * XR Knee 4+ Views Left (04/12/2024 2:32 PM EST) Anatomical Region Laterality Modality Lower Extremities, Knee Left Radiogra phic Imaging 04/12/2024 2:32 PM EST Narrative 04/12/2024 2:34 PM EST ? [facility] ?[address] ?[place] [address] ?XRay Report ? Signed ? Patient: Dale Oc,Vane ?MR#: ?? [id number] ? : 1955 ?Acct:[id number] ? Age/Sex: 68 / F ?ADM Date: 04/12/24 ? Loc: HO.ED ? Attending Dr: ? Ordering Physician: Kierra Betts NP ?? Date of Service: 04/12/24 ?? Procedure(s): XR knee LT 4V ?? Accession Number(s): [id number] ? cc: Ethel Chase DO; Kierra Betts NP ? CLINICAL HISTORY: fall, hx knee replacement with revision ? 4 view left knee ? Comparison: CR/SC - XR KNEE LT 2V - 03/24/24 17:47 EST ? Findings: ?? Status post total knee replacement. There is acute displaced fracture of ?? the distal femur. ?? Soft tissue edema and joint effusion. ?? No radiopaque foreign body. ? IMPRESSION: ?? Acute perihardware fracture of the distal femur. ? This document has been electronically signed by: David Gonzalez MD on ?? 04/12/2024 14:32:09 ? Dictated By: ?David Gonzalez MD ? Signed By: ?<Electronically signed by David Gonzalez MD in OV> ? 04/12/24 1433 ? DD/ ? TD/TT: 04/12/242 ? Barrel Rib Matting Machine Operator: ? Procedure Note Donotuseinterpreter, Image - 04/12/[address] [address] XRay Report Signed Patient: Trish Cameron MMR#: [id number] : 6Acct:[id number] Age/Sex: 68 / FADM Date: 04/12/24 Loc: HO.ED Attending Dr: Ordering Physician: Kierra Betts NP Date of Service: 04/12/24 Procedure(s): XR knee LT 4V Accession Number(s): [id number] cc: Ethel Chase DO; Kierra Betts NP CLINICAL HISTORY: fall, hx knee replacement with revision 4 view left knee Comparison: CR/SC - XR KNEE LT 2V - 03/24/24 17:47 EST Findings: Status post total knee replacement. There is acute displaced fracture of the distal femur. Soft tissue edema and joint effusion. No radiopaque foreign body. IMPRESSION: Acute perihardware fracture of the distal femur. This document has been electronically signed by: David Gonzalez MD on 04/12/2024 14:32:09 Dictated By: David Gonzalez MD Signed By: <Electronically signed by David Gonzalez MD in OV> 04/12/24 1433 DD/ 1432 TD/TT: 04/12/24 1432 Barrel Rib Matting Machine Operator: [facility] External Provider IMG XR PROCEDURES Edited Result - Final * Blood Culture (Second) (04/12/2024 1:55 PM EST) Blood Venous blood specimen / Unknown 04/12/2024 1:55 PM EST 04/12/2024 2:03 PM EST Comment:Blood Narrative [facility] - 04/17/2024 4:03 PM EST Blood Culture (Second) No growth after 5 days. Specimen Source: Blood Generic External Data Provider LAB MICROBIOLOGY - GENERAL ORDERABLES Final Result [facility] [address] [place] [address] [phone] * Blood Culture (First) (04/12/2024 1:53 PM EST) Blood Venous blood specimen / Unknown 04/12/2024 1:53 PM EST 04/12/2024 2:00 PM EST Comment:Blood Narrative [facility] - 04/17/2024 4:01 PM EST Blood Culture (First) No growth after 5 days. Specimen Source: Blood us Generic External Data Provider LAB MICROBIOLOGY - GENERAL ORDERABLES Final Result Performing Organization Address [facility] Co de Phone Number [facility] [address] [place] [address] [phone] * (ABNORMAL) CBC auto differential (04/12/2024 1:53 PM EST) Only the most recent of3 resultswithin the time period is included. White Blood Count 11.3(H) 4.8 - 10.8 X10*3/uL [facility] Red Blood Count 3.33(L) 4.20 - 5.50 X10*6/uL [facility] Hemoglobin 9.1(L) 12.0 - 16.0 g/dl [facility] Hematocrit 28.2(L) 37.0 - 47.0 % [facility] Mean Corpuscular Volume 84.7 80.0 - 98.0 fL [facility] Mean Corpuscular Hemoglobin 27.3 27.0 - 33.0 pg [facility] Mean Corpuscular HGB Conc 32.3 31.0 - 35.0 g/dl [facility] Red Cell Distribution Width 14.0 11.0 - 16.0 % [facility] Platelet Count 411(H) 160 - 400 X10*3/uL [facility] Mean Platelet Volume 9.0(L) 9.4 - 12.3 fL [facility] Neutrophils Percent Auto 72.1 45 - 73 % [facility] Imm Gran Pct Auto 0.6(H) 0.0 - 0.4 % [facility] Lymphocytes Percent Auto 18.6(L) 20 - 40 % [facility] Monocytes Percent Auto 7.1 2 - 11 % [facility] Eosinophils Percent Auto 1.2 0 - 4 % [facility] Basophils Percent Auto 0.4 0 - 2 % [facility] NRBC Pct Auto 0.0 0.0 - 0.2 /100WBC [facility] Neutrophils Absolute Auto 8.2 2.0 - 8.3 x10*3/uL [facility] Imm Gran Abs Auto 0.07(H) 0.00 - 0.03 X10*3/uL [facility] Lymphocytes Absolute Auto 2.1 1.2 - 4.9 X10*3/uL [facility] Monocytes Absolute Auto 0.8 0.1 - 1.2 X10*3/uL [facility] Eosinophils Absolute Auto 0.1 0.0 - 0.4 X10*3/uL [facility] Basophils Absolute Auto 0.1 0.0 - 0.2 X10*3/uL [facility] NRBC Abs Auto 0.000 0.0 - 0.012 X10*3/uL [facility] 04/12/2024 1:53 PM EST 04/12/2024 2:00 PM EST us Generic External Data Provider LAB BLOOD ORDERAB LES Final Result [facility] [address] [place] [phone] * Partial Thromboplastin Time, Activated (APTT) (04/12/2024 1:53 PM EST) Partial Thromboplastin Time 31.7 26.0 - 36.8 SEC [facility] Comment:For information rega rding the monitoring of direct thrombininhibitors, please refer to Pharmacy. 04/12/2024 1:53 PM EST 04/12/2024 2:00 PM EST us Generic External Data Provider LAB BLOOD ORDERAB LES Final Result Performing Organization Address [facility] Co de Phone Number [facility] [address] [place] [phone] * (ABNORMAL) Sed Rate by Modified Westergren (04/12/2024 1:53 PM EST) Erythrocyte Sedimentation Rate 100(H) 0 - 20 MM/HR [facility] Comment:Patients with polycy themia and many hemoglobin abnormalitiesmay have depressed sed rates whereas patients with anemiamay have elevated sed rates. 04/12/2024 1:53 PM EST 04/12/2024 2:00 PM EST us Generic External Data Provider LAB BLOOD ORDERAB LES Final Result Performing Organization Address [facility] Phone Number [facility] [address] [place] [phone] * (ABNORMAL) Prothrombin Time-INR (04/12/2024 1:53 PM EST) Prothrombin Time 12.6(H) 10.9 - 12.4 SEC [facility] INTERNATIONAL NORM RATIO 1.1 0.9 - 1.1 [facility] Comment:INTERNATIONAL NORMAL IZED RATIO (INR) REFERENCE RANGES Reference RangeFor patients not on anticoagulant therapy: 0.9 - 1.1INR ranges for oral anticoagulanttherapy:For prevention and treatment of venous thrombosis and pulmonary embolism: 2.0 - 3.0For acute myocardial infarction with aspirin therapy: 2.0 - 3.0For acute myocardial infarction without aspirin therapy: 3.0 - 4.0For patients with mechanical prosthetic heart valves: 2.5 - 3.5 04/12/2024 1:53 PM EST 04/12/2024 2:00 PM EST Generic External Data Provider LAB BLOOD ORDERAB LES Final Result Performing Organization Address [facility] Co de Phone Number [facility] [address] [place] [phone] * (ABNORMAL) C-reactive Protein (04/12/2024 1:53 PM EST) Pathologist [facility] C Reactive Protein 11.79(H) < or = 0.50 mg/dL [facility] 04/12/2024 1:53 PM EST 04/12/2024 2:00 PM EST Generic External Data Provider LAB BLOOD ORDERAB LES Final Result Performing Organization Address [facility]/ZIP Co de Phone Number [facility] [address] [place] [phone] * Lactic Acid (04/12/2024 1:53 PM EST) [facility] Lactic Acid 2.0 0.5 - 2.0 mmol/L [facility] 04/12/2024 1:53 PM EST 04/12/2024 2:00 PM EST Front Row External Data Provider LAB BLOOD ORDERAB LES Final Result Performing Organization Address [facility] de Phone Number [facility] [address] [place] [phone] * (ABNORMAL) Comprehensive Metabolic Panel (04/12/2024 1:53 PM EST) [facility] Sodium 136 135 - 145 mmol/L [facility] Potassium 5.3(H) 3.3 - 5.1 mmol/L [facility] Chloride 101 96 - 108 mmol/L [facility] Carbon Dioxide 25 22 - 29 mmol/L [facility] Anion Gap 15 12 - 20 [facility] Urea Nitrogen (BUN) 18(H) 9 - 16 mg/dL [facility] Creatinine, Serum 1.45(H) 0.5 - 1.4 mg/dL [facility] Creatinine Clr Calc Pharmacy 45.2 [facility] Comment:Provided height and weight: 160.02 cm,114.305 kg.eGFR (calculated from the MDRD study equation) and eCrCl(calculated from the Cockcroft-Gault equation) are based ondifferent parameters and may not yield comparable results.If eCrCl result is absurd, please check patient'sheight/weight. Estimated Glomerular Filt Rate 36 [facility] Comment:Chronic Kidney Disea se: Estimated GFR < 60 mL/min/1.25g7Tuznrk Kidney Disease: Estimated GFR < 15 mL/min/1.73m2 Glucose 148(H) 60 - 115 mg/dL [facility] Calcium 10.0 8.4 - 10.2 mg/dL [facility] Bilirubin, Total 0.3 0.0 - 1.0 mg/dL [facility] Aspartate Amino Transferase 45(H) 5 - 31 U/L [facility] Alanine Aminotransferase 29 0 - 31 U/L [facility] Total Protein 8.2(H) 6.5 - 8.0 g/dL [facility] Albumin Level 3.7 3.5 - 5.0 g/dL [facility] Alkaline Phosphatase 202(H) 39 - 117 U/L [facility] 04/12/2024 1:53 PM EST 04/12/2024 2:00 PM EST us Generic External Data Provider LAB BLOOD ORDERAB LES Final Result [facility] [address] [place] [phone] * (ABNORMAL) Bacterial Vaginosis (04/07/2024 10:22 AM EST) TRICHOMONAS VAGINALIS DETECTION BY PCR NOT DETECTED Not Detect [facility] BACTERIAL VAGINOSIS DETECTION BY PCR NEGATIVE Negative [facility] Comment:The BV organism targ ets [...] GROUP DETECTION BY PCR DETECTED(A) Not Detect [facility] Kayy glab krusei PCR NOT DETECTED Not Detect [facility] 04/07/2024 10:2 2 AM EST 04/07/2024 3:47 PM EST us Generic External Data Provider LAB MICROBIOLOGY - GENERAL ORDERABLES Final Result [facility] [address] [place] [phone] [phone] * (ABNORMAL) Basic Metabolic Panel, Fasting (03/26/2024 5:51 AM EST) Only the most recent of2 resultswithin the time period is included. Sodium 133(L) 135 - 145 mmol/L [facility] Potassium 4.1 3.3 - 5.1 mmol/L [facility] Chloride 101 96 - 108 mmol/L [facility] Carbon Dioxide 24 22 - 29 mmol/L [facility] Anion Gap 12 12 - 20 [facility] Urea Nitrogen (BUN) 15 9 - 16 mg/dL [facility] Creatinine, Serum 0.85 0.5 - 1.4 mg/dL [facility] Creatinine Clr Calc Pharmacy 75.9 [facility] Comment:Provided height and weight: 157.48 cm,114.8 kg.eGFR (calculated from the MDRD study equation) and eCrCl(calculated from the Cockcroft-Gault equation) are based ondifferent parameters and may not yield comparable results.If eCrCl result is absurd, please check patient'sheight/weight. Estimated Glomerular Filt Rate >60 [facility] Comment:Chronic Kidney Disea se: Estimated GFR < 60 mL/min/1.82x8Vwmdfk Kidney Disease: Estimated GFR < 15 mL/min/1.73m2 Glucose Fasting 192(H) 60 - 99 mg/dL [facility] Comment:A fasting glucose of 126 mg/dl or greater on more than oneoccasion is considered diagnostic of diabetes. Calcium 8.8 8.4 - 10.2 mg/dL [facility] 03/26/2024 5:51 AM EST 03/26/2024 6:30 AM EST us Generic External Data Provider LAB BLOOD ORDERAB LES Final Result Performing Organization Address City/State/[facility] Co de Phone Number [facility] [address] [place] [phone] [phone] * XR Knee 1-2 Views Left (03/24/2024 6:30 PM EST) Anatomical Region Laterality Modality Lower Extremities, Knee Left Radiogra phic Imaging 03/24/2024 6:30 PM EST Narrative 03/24/2024 6:32 PM EST ? [facility] ?[address] ?[place] [address] ?XRay Report ? Signed ? Patient: Trish Cameron ?MR#: ?? [id number] ? : 1955 ?Acct:[id number] ? Age/Sex: 68 / F ?ADM Date: 03/24/24 ? Loc: HO.S3 ?375-1 ? Attending Dr: Khushi Mathias PA-C ? Ordering Physician: Khushi Mathias PA-C ?? Date of Service: 03/24/24 ?? Procedure(s): XR knee LT 2V ?? Accession Number(s): [id number] ? cc: Ethel Chase DO; Khushi Mathias PA-C ? CLINICAL HISTORY: lt tka ? 2 view left knee ? Comparison: DX - XR KNEE LT 3V - 03/19/24 09:00 EST ?? DX/SR - XR KNEE RT - 07/01/23 10:50 EDT ?? DX/SR - XR KNEE LT 07/01/23 10:50 EDT ? Findings: ?? Knee [...] MD ? Signed By: ?<Electronically signed by dArian Retana MD in OV> ? 03/24/24 183 ? DD/ 183 ? TD/TT: 03/24/24 183 ? Barrel Rib Matting Machine Operator: ? Procedure Note Donmelinterpreter, Image - 03/24/[address] [address] XRay Report Signed Patient: Trish Cameron MMR#: [id number] : 1955cct:[id number] Age/Sex: 68 / FADM Date: 03/24/24 Loc: HO.S3 375-[address]: Khushi Mathias PA-C Ordering Physician: Khushi Mathias PA-C Date of Service: 03/24/24 Procedure(s): XR knee LT 2V Accession Number(s): [id number] cc: Ethel Chase DO; Khushi Mathias PA-C [...] in OV> 03/24/241830 DD/ 29 TD/TT: 03/24/241829 Barrel Rib Matting Machine Operator: [facility] External Provider IMG XR PROCEDURES Final Result * Hemoglobin and Hematocrit (03/24/2024 10:53 AM EST) Hemoglobin 12.6 12.0 - 16.0 g/dl [facility] Hematocrit 38.6 37.0 - 47.0 % [facility] 03/24/2024 10:5 3 AM EST 03/24/2024 11:05 AM EST Generic External Data Provider LAB BLOOD ORDERAB LES Final Result [facility] [address] [place] [phone] * (ABNORMAL) POCT glycosylated hemoglobin (Hgb [...] Media Lot # [id number] Lot# Expiration Date 718 Blood Capillary blood specimen / Unknown 01/29/2024 10:34 AM EST Ethel Chase DO POINT OF CARE TEST ENTER/MARGARITA T ORDERABLES Final Result * Lipid Panel, Standard (11/11/2023 9:05 AM EDT) Triglycerides 128 <150 mg/dL [facility] Comment:Desirable Triglyceri de: less than 150 mg/dLBorderline High Triglyceride 150-199 mg/dLHigh Triglyceride: 200-499 mg/dLVery High Triglyceride: greater than or equal to 5OO mg/dL Cholesterol 108 <200 mg/dL [facility] Comment:Desirable Cholestero l: less than 200 mg/dLBorderline High Cholesterol: 200-239 mg/dLHigh Cholesterol: greater than 239 mg/dL LDL Cholesterol Calculated 42 <100 mg/dL [facility] Comment:Desirable LDL: less than 100 mg/dLNear Optimal/Above Optimal LDL: 110- 129 mg/dLBorderline High LDL: 130-159 mg/dLHigh LDL: 160-189 mg/dLVery High LDL: greater than or equal to 190 mg/dL HDL Cholesterol 41 >40 mg/dL [facility] Comment:Desirable HDL: great er than 40 mg/dL Note: This HDL assay may give artificially low results in patients with liver disease. Blood Venous blood specimen / Unknown 11/11/2023 9:05 AM EDT 11/11/2023 11:33 AM EDT us Ethel Chase DO LAB BLOOD ORDERABLES Final R esult [facility] [address] [place] [address] [phone] * BI Mammogram Screening Tomosynthesis Bilateral (08/06/2023 11:15 AM EDT) Anatomical Region Laterality Modality Breast Bilateral Mammography 08/06/2023 11:1 5 AM EDT Narrative 09/05/2023 9:40 AM EDT ? [facility] ? [address] ?[place] [address] ? Mammography Report ? Signed ? Patient: Dale Renae,Trish Duarte ?MR#: ?? [id number] ? : 1955 ?Acct:[id number] ? Age/Sex: 67 / F ?ADM Date: //24 ? Loc: HO.MAMMO ? Attending Dr: Ethel Chase DO ? Ordering Physician: Ethel Chase DO ?Results: 1N ?? egative ? Date of Service: 08/06/23 ?Follow Up: 1 Year From Orig ?? inal Mammogram ? Procedure(s): MM tomosynthesis screening BI ?? Accession Number(s): [id number] ? cc: Ethel Chase DO ? EXAMINATION: [...] 0936 ? DD/ 1115 ? TD/TT: ? Barrel Rib Matting Machine Operator: ? Procedure Note Donotuseinterpreter, Image - [facility] [address] [place] [address] Mammography Report Signed Patient: Trish Cameron MMR#: [id number] : 6Acct:[id number] Age/Sex: 67 / FADM Date: 08/06/23 Loc: HO.MAMMO Attending Dr: Ethel Chase DO Ordering Physician: Ethel Chaseults: 1N egative Date of Service: 08/06/23Follow Up: 1 Year From Orig inal Mammogram Procedure(s): MM tomosynthesis screening BI Accession Number(s): [id number] cc: Ethel Chase DO EXAMINATION: MM SCREENING [...] in OV> 09/05/23 0936 DD/ 1115 TD/TT: Barrel Rib Matting Machine Operator: Ethel Chase DO IMG BI PROCEDURES Final Resu lt * Albumin, Random Urine W/Creatinine (03/13/2023 9:38 AM EST) Creatinine, Urine 131.57 mg/dL [facility] Microalbumin Urine 6.0 mg/L [facility] Microalbum Creatinine Ratio Ur 4.5 <30 ug/mg cr [facility] Comment:Albumin/Creatinine R atio Reference Ranges: Normal: < 30 ug/mg creatinine Microalbuminuria: 30 - 300 ug/mg creatinineClinical Albuminuria: > 300 ug/mg creatinine 03/13/2023 9:38 AM EST 03/13/2023 11:25 AM EST Ethel Chase DO LAB URINE ORDERABLES Final R esult Performing Organization Address City/[facility]/ZIP Co de Phone Number [facility] [address] [place] [address] [phone] * HEPATITIS C ANTIBODY RFLX (10/31/2019 9:40 AM EDT) HEPATITIS C ANTIBODY NONREACTIVE NONREACTIVE [facility] Comment: Antibodies to HCV not detected; does not exclude early acute HCV infection. 10/31/2019 9:40 AM EDT Ethel Chase DO HISTORICAL/NON ORDERABLE LAB S Final Result Performing Organization Address City/[facility]/ZIP Co de Phone Number [facility] [address] [place] [address], * Hm Colonoscopy (03/03/2019) Colonoscopy follow up in 5 years Historical Provider HEALTH MAINTENANCE Edited Result - Final from Last 3 Months or Most Recently Relevant to Health Maintenance Insurance [facility] Care Teams Calibrator Barometers Relationship Specialty Start Date End Date Ethel Chase DO [address] [place] [address] PCP - General Family Medicine 10/12/13 Vaishnavi Laird PharmD [address] [place] [address] Pharmacist Internal Medicine 02/07/23
--- OUTSIDE RECORDS SUMMARY | 2024-04-24 13:06 | XMS_ITS | Encounter Summary ---
Author Organization [employer] Address [address] [place] [address] [address] [place] [address] Care Team Providers Care Web Marketing Coordinator Name Role Phone Ethel Chase DO Primary Care Provider Vaishnavi Laird PharmD Unavailable [phone] Reason for Visit * Reason Comments Med Refill Encounter Details Date Type Department Care Team (Late st Contact Info) Description 06/07/2022 Refill [facility] [address] [place] [address] Ethel Chase DO [address] [place] [address] Other chronic pain Social History Tobacco Use [...] documented as of this encounter Care Teams Web Marketing Coordinator Relationship Specialty Start Date End Date Ethel Chase DO [address] [place] [address] PCP - General Family Medicine 10/12/13 Vaishnavi Laird PharmD [address] [place] [address] Pharmacist Internal Medicine 02/07/23 documented as of this encounter
--- OUTSIDE RECORDS SUMMARY | 2024-04-24 13:06 | XMS_ITS | Encounter Summary ---
Author Organization [employer] Address [address] [place] [address] 7[address] [place] [address] Care Team Providers Care Clay Structure Builder And Servicer Name Role Phone Ethel Chase DO Primary Care Provider [phone] Vaishnavi Laird PharmD Unavailable [phone] Reason for Visit * Reason Comments Med Refill Encounter Details Date Type Department Care Team (Late st Contact Info) Description 08/10/2022 Refill [facility] [address] [place] [address] [facility] [address] [place] [address] Social History Tobacco Use Types Packs/Day Years [...] documented as of this encounter Care Teams Clay Structure Builder And Servicer Relationship Specialty Start Date End Date Ethel Chase DO [address] [place] [address] PCP - General Family Medicine 10/12/13 Vaishnavi Laird, Zana [address] [place] [address] Pharmacist Internal Medicine 02/07/23 documented as of this encounter
--- OUTSIDE RECORDS SUMMARY | 2024-04-24 13:06 | XMS_ITS | Clinical Summary ---
Author Organization [address] [facility] Address [address] [place] [address] Phone Care Team Providers Care Shank Skinner Name Role Phone Matias Bowling MD Primary Care Provider [phone] Encounters Date Type Department Care Team Description 04/23/[address] [facility] [address] [place] [address] Matias Bowling MD Essential (primary) hypertension 04/16/[address] [facility] [address] [place] [address] Matias Bowling MD Essential (primary) [...] Screening 04/16/2024 Hypertension/CHF/CAD Annual BMP Blood Test 04/23/2025 04/23/2024, 04/16/2024 RSV Immunization Patients 60 + [...] LAB HEMETOLOGY METHOD 04/23/2024 9:28 AM EST [facility] RBC 3.40(L) 3.80 - 4.80 M/[facility] LAB HEMETOLOGY METHOD 04/23/2024 9:28 AM [facility] Hemoglobin 9.2(L) 11.5 - 16.0 g/dL LAB HEMETOLOGY METHOD 04/23/2024 9:28 AM [facility] Hematocrit 30.3(L) 35.0 - 47.0 % LAB HEMETOLOGY METHOD 04/23/2024 9:28 AM [facility] MCV 88.1 79.0 - 98.0 FL LAB HEMETOLOGY METHOD 04/23/2024 9:28 AM [facility] MCH 26.7(L) 27.0 - 32.0 pcg LAB HEMETOLOGY METHOD 04/23/2024 9:28 AM [facility] MCHC 30.4(L) 32.0 - 37.0 g/dL LAB HEMETOLOGY METHOD 04/23/2024 9:28 AM [facility] RDW 14.6 11.0 - 15.0 % LAB HEMETOLOGY METHOD 04/23/2024 9:28 AM [facility] Platelets 333 130 - 400 K/mcL LAB HEMETOLOGY METHOD 04/23/2024 9:28 AM [facility] MPV 9.8 7.0 - 11.0 FL LAB HEMETOLOGY METHOD 04/23/2024 9:28 AM [facility] NRBC 0.0 <1.0 % LAB HEMETOLOGY METHOD 04/23/2024 9:28 AM [facility] NRBC Absolute 0.00 <0.10 K/mcL LAB HEMETOLOGY METHOD 04/23/2024 9:28 AM [facility] Blood Venous blood specimen / Unknown Venipuncture / Unknown 04/23/2024 5:04 AM EST 04/23/2024 8:47 AM EST us Matias Bowling MD LAB BLOOD ORDERABLES Final Resul t [facility] [address] [place] [address], * (ABNORMAL) Comprehensive metabolic panel (04/23/2024 5:04 AM EST) Only the most recent of2 resultswithin the time period is included. Sodium 143 133 - 145 mmol/L LAB CHEMISTRY METHOD 04/23/2024 10:18 AM [facility] Potassium 4.4 3.5 - 5.5 mmol/L LAB CHEMISTRY METHOD 04/23/2024 10:18 AM [facility] Chloride 109 96 - 110 mmol/L LAB CHEMISTRY METHOD 04/23/2024 10:18 AM [facility] CO2 25 21 - 32 mmol/L LAB CHEMISTRY METHOD 04/23/2024 10:18 AM [facility] Anion Gap 9 3 - 11 LAB CHEMISTRY METHOD 04/23/2024 10:18 AM [facility] Glucose 114(H) 70 - 100 mg/dL LAB CHEMISTRY METHOD 04/23/2024 10:18 AM [facility] BUN 17 5 - 25 mg/dL LAB CHEMISTRY METHOD 04/23/2024 10:18 AM [facility] Creatinine 1.01 0.50 - 1.10 mg/dL LAB CHEMISTRY METHOD 04/23/2024 10:18 AM [facility] eGFR 61 >=60 mL/min/1. 73m2 LAB CHEMISTRY METHOD 04/23/2024 10:18 AM [facility] Comment:Calculation based on the??Chronic Kidney Disease Epidemiology Collaboration (CKD-EPI) equation refit??without adjustment for race. BUN/Creatinine Ratio 16.8 LAB CHEMISTRY METHOD 04/23/2024 10:18 AM [facility] Calcium 9.4 8.5 - 10.5 mg/dL LAB CHEMISTRY METHOD 04/23/2024 10:18 AM [facility] AST (SGOT) 18 10 - 42 unit/L LAB CHEMISTRY METHOD 04/23/2024 10:18 AM [facility] ALT (SGPT) 25 10 - 60 unit/L LAB CHEMISTRY METHOD 04/23/2024 10:18 AM [facility] Alkaline Phosphatase 165(H) 42 - 121 unit/L LAB CHEMISTRY METHOD 04/23/2024 10:18 AM [facility] Total Protein 7.0 6.0 - 8.0 g/dL LAB CHEMISTRY METHOD 04/23/2024 10:18 AM [facility] Albumin 3.3 3.2 - 5.0 g/dL LAB CHEMISTRY METHOD 04/23/2024 10:18 AM [facility] Total Bilirubin 0.4 0.0 - 1.4 mg/dL LAB CHEMISTRY METHOD 04/23/2024 10:18 AM [facility] Blood Venous blood specimen / Unknown Venipuncture / Unknown 04/23/2024 5:04 AM EST 04/23/2024 8:47 AM EST us Matias Bowling MD LAB BLOOD ORDERABLES Final Resul t [facility] [address] [place] [address], [place] [phone] from Last 3 Months Insurance MEDICAID - [facility] MEDICARE Member Subscriber Plan / Payer (Ef fective 2022-Present) Name:Nicole Hunterz Relation to Subscriber:Self Name:Nicole Hunterz Payer ID:[id number] Group ID:[id number] Type:Not on file Address: [place] [address] [address] [id number] Care Teams Shank Skinner Relationship Specialty Start Date End Date Matias Bowling MD [address] [place] [address] NEGRO Tolbert [phone] PCP - General Family Medicine 04/16/24
--- OUTSIDE RECORDS SUMMARY | 2024-04-24 13:06 | XMS_ITS | Encounter Summary ---
Author Organization [employer] Address [address] [facility] [address] [place] [address] Care Team Providers Care Manager Nursing Name Role Phone Ethel Chase DO Primary Care Provider [phone] Vaishnavi Laird PharmD Unavailable [phone] Reason for Visit * Reason Comments Med Refill Encounter Details Date Type Department Care Team ([facility] st Contact Info) Description 04/06/2024 Refill [facility] [address] [place] [address] Ethel Chase DO [address] [place] [address] Other chronic pain Social History Tobacco Use [...] # not in service, unable to leave VM. Pt had L TKA revision done 03/24/24. Was seen in surgeons office 03/31/24. No indication from note whether surgeons is prescribing postop pain management. Pt cancelled [facility] Renewal 03/03/24 and has not rescheduled. documented [...] as of this encounter Care Teams Manager Nursing Relationship Specialty Start Date End Date Ethel Chase DO [address] [place] [phone] PCP - General Family Medicine 10/12/13 Vaishnavi Laird, Zana [address] [place] [phone] Pharmacist Internal Medicine 02/07/23 documented as of this encounter
--- OUTSIDE RECORDS SUMMARY | 2024-04-24 13:07 | XMS_ITS | Encounter Summary ---
Author Organization [employer] Address 75 [facility] 7t [place] [address] Care Team Providers Care Kettle Fry Cook Operator Name Role Phone ManuelEthel perry Primary Care Provider + [phone] Vaishnavi Laird PharmD Unavailable [phone] Reason for Visit * Reason Comments Med Refill Encounter Details Date Type Department Care Team ([facility] st Contact Info) Description 02/02/[address] [facility] MEDICINE [address] [place] [address] Sadie Rivera, ANP [address] [place] [address] Type 2 diabetes mellitus with other specified complication, unspecified whether senior living insulin use ([facility]) Social History Tobacco Use Types [...] mellitus with other specified complication, unspecified whether senior living insulin use ([facility]) documented in this encounter Additional Health Concerns Assessment Noted Time PHQ-9 Depression Total Score: 0 02/08/20 22 10:43 AM EST documented as of this encounter Care Teams Kettle Fry Cook Operator Relationship Specialty Start Date End Date Ethel Chase DO [address] [place] [address] PCP - General Family Medicine 10/12/13 Vaishnavi Laird PharmD [address] [place] [address] Pharmacist Internal Medicine 02/07/23 documented as of this encounter
--- OUTSIDE RECORDS SUMMARY | 2024-04-24 13:07 | XMS_ITS | Encounter Summary ---
Author Organization [employer] Address [address] [place] [address] 7t [place] [address] Care Team Providers Care Mail Order Clerk Name Role Phone Ethel Chase DO Primary Care Provider Vaishnavi Laird PharmD Unavailable [phone] Reason for Visit * Reason Comments Med Refill Encounter Details Date Type Department Care Team ([facility] st Contact Info) Description 02/07/2022 Refill [facility] MEDICINE [address] [place] [address] Ethel Chase DO [address] [place] [address] Diverticular disease (Primary Dx) Social History Tobacco [...] 3:31 PM EST TC placed to pt [phone] scan showed mild diverticulitis. Pt [...] is requesting medications to be sent to [facility] on [facility] in [facility] she cannot get to [facility] pharmacy before they close. RN [...] scan results are back yet. RN checked Need system and results not yet available. CT was ordered STAT. RN called [facility] who reports they do not have a artist model on site or Saturday and RN would have to call [facility] at [phone] and speak to [facility] to request results to be read. RN called [phone] however phone rang continuously without an automated recording w/ options ora VM. RN returned call to [facility] to inform them no one answered at [facility] and the phone just kept ringing. [facility] confirmed the number is correct and reports they will send a message to [facility] to ask them to interpret the CT scan. RN will check before end of the day for interpretation report. * Telephone Encounter - Arcelia Wylie - 02/08/2022 2:07 PM EST Tc from [facility] requesting lab ordered be refaxed, lead technical writer refaxed to [phone] * Telephone Encounter - Ethel Chase DO [...] documented as of this encounter Care Teams Mail Order Clerk Relationship Specialty Start Date End Date Ethel Chase DO [address] [place] [address] PCP - General Family Medicine 10/12/13 Vaishnavi Laird PharmD [address] [place] [address] Pharmacist Internal Medicine 02/07/23 documented as of this encounter
--- OUTSIDE RECORDS SUMMARY | 2024-04-24 13:07 | XMS_ITS | Encounter Summary ---
Author Organization [employer] Address 75 [facility] 7t [place] [address] Care Team Providers Care Assistant Food Service Manager Name Role Phone ManuelEthel perry Primary Care Provider +1- [phone] Vaishnavi Laird PharmD Unavailable [phone] Encounter Details Date Type Department Care Team (Late st Contact Info) Description 02/09/2022 Orders Only [facility] [address] [place], [place] [phone] Sadie Rivera, ANP [address] [place] [address] Social History Tobacco Use Types Packs/Day Years [...] documented as of this encounter Care Teams Assistant Food Service Manager Relationship Specialty Start Date End Date Ethel Chase DO [address] [place] [address] PCP - General Family Medicine 10/12/13 Vaishnavi Laird PharmD [address] [place] [address] Pharmacist Internal Medicine 02/07/23 documented as of this encounter
--- OUTSIDE RECORDS SUMMARY | 2024-04-24 13:07 | XMS_ITS | Encounter Summary ---
Author Organization [employer] Address 75 [facility] 7t [place] [address] Care Team Providers Care Pot Fireman Name Role Phone Ethel Chase DO Primary Care Provider +1- [phone] Vaishnavi Laird PharmD Unavailable [phone] Reason for Visit * Reason Comments Med Refill Encounter Details Date Type Department Care Team ([facility] st Contact Info) Description 04/07/2024 Refill [facility] MEDICINE [address] [place] [address] Ethel Chase DO [address] [place] [address] Type 2 diabetes mellitus with other specified complication, unspecified whether residential insulin use ([facility]); Chronic gastroesophageal reflux disease Social History Tobacco [...] specified complication, unspecified whether residential insulin use ([facility]) Chronic gastroesophageal reflux disease documented in this encounter Additional Health Concerns Assessment Noted Time PHQ-9 Depression Total Score: 8 10/18/19 24 11:35 AM EDT documented as of this encounter Care Teams Pot Fireman Relationship Specialty Start Date End Date Ethel Chase DO [address] [place] [address] PCP - General Family Medicine 10/12/13 Vaishnavi Laird PharmD [address] [place] [address] Pharmacist Internal Medicine 02/07/23 documented as of this encounter
--- OUTSIDE RECORDS SUMMARY | 2024-04-24 13:07 | XMS_ITS | Encounter Summary ---
Author Organization [employer] Address 75 [facility] 7t [place] [address] Care Team Providers Care Brick Setter Operator Name Role Phone Ethel Chase DO Primary Care Provider [phone]- [phone] Vaishnavi Laird PharmD Unavailable [phone] Reason for Visit * Reason Comments Med Refill Encounter Details Date Type Department Care Team ([facility] st Contact Info) Description 03/23/2024 Refill [facility] MEDICINE [address] [place] [address] Ethel Chase DO [address] [place] [address] Other chronic pain Social History Tobacco Use [...] documented as of this encounter Care Teams Brick Setter Operator Relationship Specialty Start Date End Date Ethel Chase DO [address] [place] [address] PCP - General Family Medicine 10/12/13 TwilaiaVaishnavi, PharmD [address] [place] [address] Pharmacist Internal Medicine 02/07/23 documented as of this encounter
--- OUTSIDE RECORDS SUMMARY | 2024-04-24 13:07 | XMS_ITS | Encounter Summary ---
Author Organization [employer] Address 75 [facility] 7t [place] [address] Care Team Providers Care Brass Burnisher Name Role Phone Ethel Chase DO Primary Care Provider +1- [phone] Vaishnavi Laird PharmD Unavailable [phone] Reason for Visit * Reason Onset Date Comments Nurse Triage 04/16/2023 Encounter Details Date Type Department Care Team ([facility] st Contact Info) Description 04/16/2023 Telephone [facility] MEDICINE [address] [place] [address] Ethel Chase DO [address] [place] [address] Nurse Triage Social History Tobacco Use Types [...] PM EST Triage call regarding message from [facility] see below. Pt answers call , [place] Applied Exercise Physiologist [place] [id number], but, Pt is speaking armenian well. Pt reports only high BS was [...] if any further problem to come to [facility] for provider to see Pt . Pt [...] - You become worse Tc from [facility] reporting patient has extreme high blood sugars: 355 Saturday Down to the 250 today Advises that her glucose monitor keeps beeping, [facility] Nurse advised that pt refused urgent snf visit but was advised to go to the urgent. Please contact pt [phone] Fijian Speaker * Telephone Encounter - Netta Diamondlaxmi Grider - 04/16/2023 4:18 PM EST Tc from [facility] reporting patient has extreme high blood sugars: 355 Saturday Down to the 250 today Advises that her glucose monitor keeps beeping, [facility] Nurse advised that pt refused urgent snf visit but was advised to go to the urgent. Please contact pt [phone] Fijian Speaker documented in this encounter Plan of Treatment Not on file documented as of this encounter Goals Goal Patient Goal Type Associated Problems Recent Progress Patient-Stated? Author Hemoglobin A1c < 7 Result Component 7.1( 4 10:35 AM EST) No Puia, Vaishnavi, PharmD Record your blood sugar as directed Result Component No Puia, Vaishnavi, PharmD documented as of this encounter Visit Diagnoses Not on filedocumented in this encounter Additional Health Concerns Assessment Noted Time PHQ-9 Depression Total Score: 0 02/08/20 22 10:43 AM EST documented as of this encounter Care Teams Brass Burnisher Relationship Specialty Start Date End Date Ethel Chase DO [address] [place] [address] PCP - General Family Medicine 10/12/13 Puia, Vaishnavi, PharmD [address] [place] [address] Pharmacist Internal Medicine 02/07/23 documented as of this encounter
--- OUTSIDE RECORDS SUMMARY | 2024-04-24 13:07 | XMS_ITS | Encounter Summary ---
Author Organization [employer] Address 75 [facility] 7t [place] [address] Care Team Providers Care Animal Caretaker Name Role Phone ManuelEthel perry Primary Care Provider + [phone] Vaishnavi Laird PharmD Unavailable [phone] Encounter Details Date Type Department Care Team (Late st Contact Info) Description 04/14/2024 Orders Only GENERIC EXTERNAL DATA DEPARTMENT [...] Associated Diagnosis Comments GLUCOSE, WHOLE BLOOD Routine 04/14/2024 8:30 PM EST SARS COV2/INFLUENZA A/B AND RSV RNA QL NAAT Routine 04/14/2024 10:44 AM EST documented in this encounter Results * (ABNORMAL) Glucose, Whole Blood (04/14/2024 8:30 PM EST) Pathologist [facility] Glucose, Whole Blood 132(H) 60 - 115 mg/dL [facility] Comment:METER #: [id number] 7 04/14/2024 8:30 PM EST 04/14/2024 8:33 PM EST us Generic External Data Provider LAB BLOOD ORDERAB LES Final Result [facility] [address] [place] [phone] * SARS-CoV-2 RNA, Influenza A/B, and RSV RNA, Ql NAAT (04/14/2024 10:44 AM EST) Pathologist [facility] Influenza A PCR NEGATIVE Negative [facility] Influenza B PCR NEGATIVE Negative [facility] Resp Syncy Virus RNA Qual PCR NEGATIVE Negative [facility] SARS COV2 PCR NEGATIVE Negative [facility] Comment:All test results mus t [...] use by authorized laboratories.Testing performed on the [employer] utilizingreal-time RT-PCR.All SARS CoV2 and positive influenza A/B results arereported to [facility]. 04/14/2024 10:4 4 AM EST 04/14/2024 10:54 AM EST us Generic External Data Provider LAB MICROBIOLOGY - GENERAL ORDERABLES Final Result [facility] [address] [place] [address] [phone] documented in this encounter Visit Diagnoses Not on filedocumented in this encounter Additional Health Concerns Assessment Noted Time PHQ-9 Depression Total Score: 8 10/18/19 24 11:35 AM EDT documented as of this encounter Care Teams Animal Caretaker Relationship Specialty Start Date End Date Ethel Chase DO [address] [place] [address] PCP - General Family Medicine 10/12/13 Vaishnavi Laird PharmD [address] [place] [address] Pharmacist Internal Medicine 02/07/23 documented as of this encounter
--- OUTSIDE RECORDS SUMMARY | 2024-04-24 13:07 | XMS_ITS | Encounter Summary ---
Author Organization [employer] Address 75 [facility] 7t [place] [address] Care Team Providers Care Photo Mask Pattern Generator Name Role Phone Ethel Chase DO Primary Care Provider +1- [phone] Vaishnavi Laird PharmD Unavailable [phone] Reason for Visit * Reason Comments Med Refill Encounter Details Date Type Department Care Team ([facility] st Contact Info) Description 04/16/2024 Refill [facility] MEDICINE [address] [place] [address] Ethel Chase DO [address] [place] [address] Social History Tobacco Use Types Packs/Day Years [...] documented as of this encounter Care Teams Photo Mask Pattern Generator Relationship Specialty Start Date End Date Ethel Chase DO [address] [place] [address] PCP - General Family Medicine 10/12/13 Puia, Vaishnavi, PharmD [address] [place] [address] Pharmacist Internal Medicine 02/07/23 documented as of this encounter
--- OUTSIDE RECORDS SUMMARY | 2024-04-24 13:07 | XMS_ITS | Encounter Summary ---
Author Organization [employer] Address 75 [facility] 7t [place] [address] Care Team Providers Care Business Continuity Manager Name Role Phone ManuelEthel perry Primary Care Provider + [phone] Vaishnavi Laird PharmD Unavailable [phone] Encounter Details Date Type Department Care [...] Whole Blood 172(H) 60 - 115 mg/dL [facility] Comment:METER #: [id number] 3 03/25/2024 8:45 PM EST 03/25/2024 8:55 PM EST us Generic External Data Provider LAB BLOOD ORDERAB LES Final Result Performing Organization Address [facility] Co de Phone Number [facility] [address] [place] [phone] * (ABNORMAL) Glucose, Whole Blood (03/25/2024 3:45 PM EST) Glucose, Whole Blood 152(H) 60 - 115 mg/dL [facility] Comment:METER #: [id number] 3 03/25/2024 3:45 PM EST 03/25/2024 3:49 PM EST Generic External Data Provider LAB BLOOD ORDERAB LES Final Result Performing Organization Address [facility] Phone Number [facility] [address] [place] [phone] * (ABNORMAL) Glucose, Whole Blood (03/25/2024 11:25 AM EST) Glucose, Whole Blood 209(H) 60 - 115 mg/dL [facility] Comment:METER #: [id number] 3 03/25/2024 11:2 5 AM EST 03/25/2024 11:38 AM EST Generic External Data Provider LAB BLOOD ORDERAB LES Final Result Performing Organization Address [facility] Co de Phone Number [facility] [address] [place] [phone] * (ABNORMAL) Glucose, Whole Blood (03/25/2024 7:35 AM EST) Glucose, Whole Blood 188(H) 60 - 115 mg/dL [facility] Comment:METER #: [id number] 3 03/25/2024 7:35 AM EST 03/25/2024 7:49 AM EST Generic External Data Provider LAB BLOOD ORDERAB LES Final Result Performing Organization Address [facility]/ZIP Co de Phone Number [facility] [address] [place] [address] [phone] * (ABNORMAL) Basic Metabolic Panel, Fasting (03/25/2024 6:15 AM EST) Sodium 135 135 - 145 mmol/L [facility] Potassium 4.6 3.3 - 5.1 mmol/L [facility] Chloride 104 96 - 108 mmol/L [facility] Carbon Dioxide 22 22 - 29 mmol/L [facility] Anion Gap 14 12 - 20 [facility] Urea Nitrogen (BUN) 15 9 - 16 mg/dL [facility] Creatinine, Serum 0.88 0.5 - 1.4 mg/dL [facility] Creatinine Clr Calc Pharmacy 73.4 [facility] Comment:Provided height and weight: 157.48 cm,114.8 kg.eGFR (calculated from the MDRD study equation) and eCrCl(calculated from the Cockcroft-Gault equation) are based ondifferent parameters and may not yield comparable results.If eCrCl result is absurd, please check patient'sheight/weight. Estimated Glomerular Filt Rate >60 [facility] Comment:Chronic Kidney Disea se: Estimated GFR < 60 mL/min/1.09l3Veyube Kidney Disease: Estimated GFR < 15 mL/min/1.73m2 Glucose Fasting 193(H) 60 - 99 mg/dL [facility] Comment:A fasting glucose of 126 mg/dl or greater on more than oneoccasion is considered diagnostic of diabetes. Calcium 9.2 8.4 - 10.2 mg/dL [facility] 03/25/2024 6:15 AM EST 03/25/2024 6:58 AM EST us Generic External Data Provider LAB BLOOD ORDERAB LES Final Result [facility] [address] [place] [address] [phone] * (ABNORMAL) CBC auto differential (03/25/2024 6:15 AM EST) White Blood Count 14.3(H) 4.8 - 10.8 X10*3/uL [facility] Red Blood Count 3.79(L) 4.20 - 5.50 X10*6/uL [facility] Hemoglobin 10.3(L) 12.0 - 16.0 g/dl [facility] Hematocrit 32.7(L) 37.0 - 47.0 % [facility] Mean Corpuscular Volume 86.3 80.0 - 98.0 fL [facility] Mean Corpuscular Hemoglobin 27.2 27.0 - 33.0 pg [facility] Mean Corpuscular HGB Conc 31.5 31.0 - 35.0 g/dl [facility] Red Cell Distribution Width 13.8 11.0 - 16.0 % [facility] Platelet Count 310 160 - 400 X10*3/uL [facility] Mean Platelet Volume 9.7 9.4 - 12.3 fL [facility] Neutrophils Percent Auto 75.8(H) 45 - 73 % [facility] Imm Gran Pct Auto 0.6(H) 0.0 - 0.4 % [facility] Lymphocytes Percent Auto 15.7(L) 20 - 40 % [facility] Monocytes Percent Auto 7.7 2 - 11 % [facility] Eosinophils Percent Auto 0.0 0 - 4 % [facility] Basophils Percent Auto 0.2 0 - 2 % [facility] NRBC Pct Auto 0.0 0.0 - 0.2 /100WBC [facility] Neutrophils Absolute Auto 10.9(H) 2.0 - 8.3 x10*3/uL [facility] Imm Gran Abs Auto 0.09(H) 0.00 - 0.03 X10*3/uL [facility] Lymphocytes Absolute Auto 2.3 1.2 - 4.9 X10*3/uL [facility] Monocytes Absolute Auto 1.1 0.1 - 1.2 X10*3/uL [facility] Eosinophils Absolute Auto 0.0 0.0 - 0.4 X10*3/uL [facility] Basophils Absolute Auto 0.0 0.0 - 0.2 X10*3/uL [facility] NRBC Abs Auto 0.000 0.0 - 0.012 X10*3/uL [facility] 03/25/2024 6:15 AM EST 03/25/2024 6:58 AM EST us Generic External Data Provider LAB BLOOD ORDERAB LES Final Result [facility] [address] [place] [phone] [phone] documented in this encounter Visit Diagnoses Not on filedocumented in this encounter Additional Health Concerns Assessment Noted Time PHQ-9 Depression Total Score: 8 10/18/19 24 11:35 AM EDT documented as of this encounter Care Teams Business Continuity Manager Relationship Specialty Start Date End Date Ethel Chase DO [address] [place] [address] PCP - General Family Medicine 10/12/13 Vaishnavi Laird PharmD [address] [place] [address] Pharmacist Internal Medicine 02/07/23 documented as of this encounter
--- OUTSIDE RECORDS SUMMARY | 2024-04-24 13:07 | XMS_ITS | Encounter Summary ---
Author Organization [email or web address] Address 75 [facility] 7t [place] [address] Care Team Providers Care Unit Aide Name Role Phone ManuelEthel perry Primary Care Provider + [phone] Vaishnavi Laird PharmD Unavailable [phone] Encounter Details Date Type Department Care Team (Late st Contact Info) Description 04/15/2024 Orders Only GENERIC EXTERNAL DATA DEPARTMENT [...] WHOLE BLOOD Routine 04/15/2024 7:25 AM EST documented in this encounter Results * (ABNORMAL) Glucose, Whole Blood (04/15/2024 11:44 AM EST) Glucose, Whole Blood 136(H) 60 - 115 mg/dL [facility] Comment:METER #: [id number] 7 04/15/2024 11:4 4 AM EST 04/15/2024 11:48 AM EST us Generic External Data Provider LAB BLOOD ORDERAB LES Final Result [facility] [address] [place] [phone] * (ABNORMAL) Basic Metabolic Panel (04/15/2024 9:44 AM EST) Sodium 138 135 - 145 mmol/L [facility] Potassium 4.3 3.3 - 5.1 mmol/L [facility] Chloride 102 96 - 108 mmol/L [facility] Carbon Dioxide 24 22 - 29 mmol/L [facility] Anion Gap 16 12 - 20 [facility] Urea Nitrogen (BUN) 15 9 - 16 mg/dL [facility] Creatinine, Serum 1.10 0.5 - 1.4 mg/dL [facility] Creatinine Clr Calc Pharmacy 59.6 [facility] Comment:Provided height and weight: 160.02 cm,114.305 kg.eGFR (calculated from the MDRD study equation) and eCrCl(calculated from the Cockcroft-Gault equation) are based ondifferent parameters and may not yield comparable results.If eCrCl result is absurd, please check patient'sheight/weight. Estimated Glomerular Filt Rate 49 [facility] Comment:Chronic Kidney Disea se: Estimated GFR < 60 mL/min/1.44e4Ycwiqx Kidney Disease: Estimated GFR < 15 mL/min/1.73m2 Glucose 154(H) 60 - 115 mg/dL [facility] Calcium 9.0 8.4 - 10.2 mg/dL [facility] 04/15/2024 9:44 AM EST 04/15/2024 9:54 AM EST us Generic External Data Provider LAB BLOOD ORDERAB LES Final Result [facility] [address] [place] [phone] * Glucose, Whole Blood (04/15/2024 7:25 AM EST) Glucose, Whole Blood 109 60 - 115 mg/dL [facility] Comment:METER #: [id number] 7 04/15/2024 7:25 AM EST 04/15/2024 7:39 AM EST us Generic External Data Provider LAB BLOOD ORDERAB LES Final Result [facility] [address] [place] [phone] [phone] documented in this encounter Visit Diagnoses Not on filedocumented in this encounter Additional Health Concerns Assessment Noted Time PHQ-9 Depression Total Score: 8 10/18/19 24 11:35 AM EDT documented as of this encounter Care Teams Unit Aide Relationship Specialty Start Date End Date Ethel Chase DO [address] [place] [address] PCP - General Family Medicine 10/12/13 Vaishnavi Laird PharmD [address] [place] [address] Pharmacist Internal Medicine 02/07/23 documented as of this encounter
--- OUTSIDE RECORDS SUMMARY | 2024-04-24 13:07 | XMS_ITS | Encounter Summary ---
Author Organization [employer] Address 75 [facility] 7t [place] [address] Care Team Providers Care Mc Kay Stitcher Name Role Phone Ethel Chase DO Primary Care Provider [phone] Vaishnavi Laird PharmD Unavailable [phone] Reason for Visit * Reason Onset Date Comments Pre-Op 03/23/2024 Encounter Details Date Type Department Care Team (Late st Contact Info) Description 03/23/[address] [facility] MEDICINE [address] [place] [address] Ethel Cahse DO [address] [place] [address] Pre-Op Social History Tobacco Use Types Packs/Day [...] Yes Surgeon's name: Dave Oro Facility name: [facility] Orthopedic Surgeon's office number: [phone] Surgeon's office fax number: [phone] Contact name (person you spoke with): Trish [...] documented as of this encounter Care Teams Mc Kay Stitcher Relationship Specialty Start Date End Date Ethel Chase DO [address] [place] [address] PCP - General Family Medicine 10/12/13 Vaishnavi Laird, Zana [address] [place] [phone] Pharmacist Internal Medicine 02/07/23 documented as of this encounter
--- OUTSIDE RECORDS SUMMARY | 2024-04-24 13:07 | XMS_ITS | Encounter Summary ---
Author Organization [employer] Address [address] [facility] 7t [place] [address] Care Team Providers Care Patent Engineer Name Role Phone Ethel Chase DO Primary Care Provider [phone] Vaishnavi Laird PharmD Unavailable [phone] Reason for Visit * Reason Onset Date Comments Appointment Request 03/02/2024 Encounter Details Date Type Department Care Team ([facility] st Contact Info) Description 03/02/2024 Telephone [facility] [address] [place] [address] Ethel Chase DO [address] [place], [place] [phone] Appointment Request Social History Tobacco Use Types [...] would like to reschedule. Please contact pt: [phone] (Khmer) documented in this encounter Plan of Treatment [...] documented as of this encounter Care Teams Patent Engineer Relationship Specialty Start Date End Date Ethel Chase DO [address] [place] [address] PCP - General Family Medicine 10/12/13 Vaishnavi Laird PharmD [address] [place] [address] Pharmacist Internal Medicine 02/07/23 documented as of this encounter
--- OUTSIDE RECORDS SUMMARY | 2024-04-24 13:07 | XMS_ITS | Encounter Summary ---
Author Organization [employer] Address [address] [facility] 7t [place] [address] Care Team Providers Care Electrical Systems Designer Name Role Phone ManuelEthel perry Primary Care Provider + [phone] Vaishnavi Laird PharmD Unavailable [phone] Encounter Details Date Type Department Care Team (Late st Contact Info) Description 04/12/2024 Orders Only GENERIC EXTERNAL DATA DEPARTMENT [...] Procedure Name Priority Date/Time Associated Diagnosis Comments CT KNEE WO CONTRAST LEFT Routine 04/12/2024 4:[address] HEAD WO CONTRAST Routine 04/12/2024 4 :31 PM EST US VENOUS DUPLEX LE LT Routine 3:15 PM EST XR KNEE 4+ VIEWS LEFT Routine 04/12/2024 2:32 PM EST BLOOD CULTURE (SECOND) Routine 1:55 PM EST BLOOD CULTURE (FIRST) Routine 04/12/2024 1:53 PM EST CBC WITH AUTO DIFFERENTIAL Routine 04/12/2024 1:53 PM EST APTT Routine 04/12/2024 1:53 PM EST SED RATE BY MODIFIED WESTERGREN Routine 04/12/2024 1:53 PM EST PROTHROMBIN TIME-INR Routine 04/12/2024 1:53 PM EST C-REACTIVE PROTEIN Routine 04/12/2024 1: 53 PM EST LACTIC ACID Routine 04/12/2024 1:53 PM EST COMPREHENSIVE METABOLIC PANEL Routine 04/12/2024 1:53 PM EST documented in this encounter Results * CT Kne w/o Contrast Left (04/12/2024 4:41 PM EST) Anatomical Region Laterality Modality Lower Extremities, Knee Left Computed Tomography 04/12/2024 4:41 PM EST Narrative 04/12/2024 4:43 PM EST ? [facility] ?[address] ?[place] [address] ? CT Scan Report ? Signed ? Patient: Trish Cameron ?MR#: ?? [id number] ? : 1955 ?Acct:[id number] ? Age/Sex: 68 / F ?ADM Date: 04/12/24 ? Loc: HO.ED ? Attending Dr: ? Ordering Physician: Kierra Betts NP ?? Date of Service: 04/12/24 ?? Procedure(s): CT knee LT wo IV con ?? Accession Number(s): [id number] ? cc: Ethel Chase DO; Kierra Betts NP ? Report Number: ?? [id number]: Total DLP = ?0.00 mGy-cm ? CLINICAL HISTORY: femur fx, recent TKA revision ? CT left knee without contrast ? Comparison: CR/AR - XR KNEE LT 4V - 04/12/24 [...] DD/ 1641 ? TD/TT: 04/12/24 1641 ? Dough Mixing Machine Operator: ? Procedure Note Villater, Image - 04/12/[address] [place] [address] [address] Scan Report Signed Patient: Trish Cameron MMR#: [id number] : 1955cct:[id number] Age/Sex: 68 / FADM Date: 04/12/24 Loc: HO.ED Attending Dr: Ordering Physician: Kierra Betts NP Date of Service: 04/12/24 Procedure(s): CT knee LT wo IV con Accession Number(s): [id number] cc: Ethel Chase DO; Kierra Betts NP Report Number: [id number]: Total DLP = 0.00 mGy-cm CLINICAL HISTORY: femur fx, recent TKA revision CT left knee without contrast Comparison: CR/AR - XR KNEE LT 4V - 04/12/24 [...] in OV> 04/12/241642 DD/ 40 TD/TT: 04/12/241640 Dough Mixing Machine Operator: us [facility] External Provider IMG CT PROCEDURES Edited Result - Final * CT Head w/o Contrast (04/12/2024 4:31 PM EST) Anatomical Region Laterality Modality Head, Neck Computed Tomogra phy 04/12/2024 4:31 PM EST Narrative 04/12/2024 4:32 PM EST ? [facility] ?[address] ?[place] [address] ? CT Scan Report ? Signed ? Patient: Trish Cameron ?MR#: ?? [id number] ? : 1955 ?Acct:[id number] ? Age/Sex: 68 / F ?ADM Date: 04/12/24 ? Loc: HO.ED ? Attending Dr: ? Ordering Physician: Kierra Betts NP ?? Date of Service: 04/12/24 ?? Procedure(s): CT head/brain wo IV con ?? Accession Number(s): [id number] ? cc: Ethel Chase DO; Kierra Betts NP ? Report Number: ?? [id number]: Total DLP = 1028.00 mGy-cm ? CLINICAL [...] DD/ 1631 ? TD/TT: 04/12/24 1631 ? Dough Mixing Machine Operator: ? Procedure Note Carito, Image - 04/12/[address] [address] [address] Scan Report Signed Patient: Trish Cameron [facility]#: [id number] : 6Acct:[id number] Age/Sex: 68 / FADM Date: 04/12/24 Loc: HO.ED Attending Dr: Ordering Physician: Kierra Betts NP Date of Service: 04/12/24 Procedure(s): CT head/brain wo IV con Accession Number(s): [id number] cc: Ethel Chase DO; Kierra Betts NP Report Number: [id number]: Total DLP = 1028.00 mGy-cm CLINICAL HISTORY: [...] This document has been electronically signed by: aDvid Gonzalez MD on 04/12/2024 16:31:11 Dictated By: David Gonzalez MD Signed By: <Electronically signed by David Gonzalez MD in OV> 04/12/24 1631 DD/ 1631 TD/TT: 04/12/24 1631 Dough Mixing Machine Operator: us [facility] External Provider IMG CT PROCEDURES Edited Result - Final * US VENOUS DUPLEX LE LT (04/12/2024 3:15 PM EST) Anatomical Region Laterality Modality Abdomen Ultrasound 04/12/2024 3:15 PM EST Narrative 04/12/2024 3:17 PM EST ? [place] [facility] ?[address] ?[place] [address] ? Ultrasound Report ? Signed ? Patient: Dale Oc,Vane ?MR#: ?? [id number] ? : 1955 ?Acct:[id number] ? Age/Sex: 68 / F ?ADM Date: 04/12/24 ? Loc: HO.ED ? Attending Dr: ? Ordering Physician: Kierra Betts NP ?? Date of Service: 04/12/24 ?? Procedure(s): US venous duplex LE LT ?? Accession Number(s): [id number] ? cc: Ethel Chase DO; Kierra Betts [...] ? DD/ 14 ? TD/TT: 04/12/241514 ? Dough Mixing Machine Operator: ? Procedure Note Alek Arzate - 04/12/2024 [place] [address] Ultrasound Report Signed Patient: Trish Cameron [facility]#: [id number] : 1955cct:[id number] Age/Sex: 68 / FADM Date: 04/12/24 Loc: HO.ED Attending Dr: Ordering Physician: Kierra Betts NP Date of Service: 04/12/24 Procedure(s): US venous duplex LE LT Accession Number(s): [id number] cc: Ethel Chase DO; Kierra Betts NP [...] OV> 04/12/24 1517 DD/ 1515 TD/TT: 04/12/24 1515 Dough Mixing Machine Operator: [facility] External Provider IMG US PROCEDURES Edited Result - Final * XR Knee 4+ Views Left (04/12/2024 2:32 PM EST) Anatomical Region Laterality Modality Lower Extremities, Knee Left Radiogra phic Imaging 04/12/2024 2:32 PM EST Narrative 04/12/2024 2:34 PM EST ? [facility] ?[address] ?[place] [address] ?XRay Report ? Signed ? Patient: Trish Cameron ?MR#: ?? [id number] ? : 1955 ?Acct:[id number] ? Age/Sex: 68 / F ?ADM Date: 04/12/24 ? Loc: HO.ED ? Attending Dr: ? Ordering Physician: Kierra Betts NP ?? Date of Service: 04/12/24 ?? Procedure(s): XR knee LT 4V ?? Accession Number(s): [id number] ? cc: Ethel Chase DO; Kierra Betts NP ? CLINICAL HISTORY: fall, hx knee replacement with revision ? 4 view left knee ? Comparison: CR/AR - XR KNEE LT 2V - 03/24/24 [...] ? 04/12/24 1433 ? DD/ ? TD/TT: 04/12/24 1432 ? Dough Mixing Machine Operator: ? Procedure Note Donotuseinterpreter, Image - 04/12/[address] [address] XRay Report Signed Patient: Trish Cameron MMR#: [id number] : 6Acct:[id number] Age/Sex: 68 / FADM Date: 04/12/24 Loc: HO.ED Attending Dr: Ordering Physician: Kierra Betts NP Date of Service: 04/12/24 Procedure(s): XR knee LT 4V Accession Number(s): [id number] cc: Ethel Chase DO; Kierra Betts NP CLINICAL HISTORY: fall, hx knee replacement with revision 4 view left knee Comparison: CR/AR - XR KNEE LT 2V - 03/24/24 [...] 04/12/24 1433 DD/ 1432 TD/TT: 04/12/24 1432 Dough Mixing Machine Operator: [facility] External Provider IMG XR PROCEDURES Edited Result - Final * Blood Culture (Second) (04/12/2024 1:55 PM EST) Blood Venous blood specimen / Unknown 04/12/2024 1:55 PM EST 04/12/2024 2:03 PM EST Comment:Blood Narrative [facility] - 04/17/2024 4:03 PM EST Blood Culture (Second) No growth after 5 days. Specimen Source: Blood Generic External Data Provider LAB MICROBIOLOGY - GENERAL ORDERABLES Final Result [facility] [address] [place] [phone] * Blood Culture (First) (04/12/2024 1:53 PM EST) Blood Venous blood specimen / Unknown 04/12/2024 1:53 PM EST 04/12/2024 2:00 PM EST Comment:Blood Narrative [facility] - 04/17/2024 4:01 PM EST Blood Culture (First) No growth after 5 days. Specimen Source: Blood us Generic External Data Provider LAB MICROBIOLOGY - GENERAL ORDERABLES Final Result Performing Organization Address [facility] Number [facility] [address] [place] [phone] * (ABNORMAL) Sed Rate by Modified Kehindeergren (04/12/2024 1:53 PM EST) Erythrocyte Sedimentation Rate 100(H) 0 - 20 MM/HR [facility] Comment:Patients with polycy themia and many hemoglobin abnormalitiesmay have depressed sed rates whereas patients with anemiamay have elevated sed rates. 04/12/2024 1:53 PM EST 04/12/2024 2:00 PM EST us Generic External Data Provider LAB BLOOD ORDERAB LES Final Result Performing Organization Address [facility] Phone Number [facility] [address] [place] [phone] * (ABNORMAL) C-reactive Protein (04/12/2024 1:53 PM EST) C Reactive Protein 11.79(H) < or = 0.50 mg/dL [facility] 04/12/2024 1:53 PM EST 04/12/2024 2:00 PM EST us Generic External Data Provider LAB BLOOD ORDERAB LES Final Result [facility] [address] [place] [phone] [phone] * (ABNORMAL) Comprehensive Metabolic Panel (04/12/2024 1:53 PM EST) Sodium 136 135 - 145 mmol/L [facility] Potassium 5.3(H) 3.3 - 5.1 mmol/L [facility] Chloride 101 96 - 108 mmol/L [facility] Carbon Dioxide 25 22 - 29 mmol/L [facility] Anion Gap 15 12 - 20 [facility] Urea Nitrogen (BUN) 18(H) 9 - 16 mg/dL [facility] Creatinine, Serum 1.45(H) 0.5 - 1.4 mg/dL [facility] Creatinine Clr Calc Pharmacy 45.2 [facility] Comment:Provided height and weight: 160.02 cm,114.305 kg.eGFR (calculated from the MDRD study equation) and eCrCl(calculated from the Cockcroft-Gault equation) are based ondifferent parameters and may not yield comparable results.If eCrCl result is absurd, please check patient'sheight/weight. Estimated Glomerular Filt Rate 36 [facility] Comment:Chronic Kidney Disea se: Estimated GFR < 60 mL/min/1.86i3Usqpoi Kidney Disease: Estimated GFR < 15 mL/min/1.73m2 Glucose 148(H) 60 - 115 mg/dL [facility] Calcium 10.0 8.4 - 10.2 mg/dL [facility] Bilirubin, Total 0.3 0.0 - 1.0 mg/dL [facility] Aspartate Amino Transferase 45(H) 5 - 31 U/L [facility] Alanine Aminotransferase 29 0 - 31 U/L [facility] Total Protein 8.2(H) 6.5 - 8.0 g/dL [facility] Albumin Level 3.7 3.5 - 5.0 g/dL [facility] Alkaline Phosphatase 202(H) 39 - 117 U/L [facility] 04/12/2024 1:53 PM EST 04/12/2024 2:00 PM EST Generic External Data Provider LAB BLOOD ORDERAB LES Final Result Performing Organization Address [facility] de Phone Number [facility] [address] [place] [phone] * Lactic Acid (04/12/2024 1:53 PM EST) Lactic Acid 2.0 0.5 - 2.0 mmol/L [facility] 04/12/2024 1:53 PM EST 04/12/2024 2:00 PM EST Generic External Data Provider LAB BLOOD ORDERAB LES Final Result Performing Organization Address [facility] Phone Number [facility] [address] [place] [phone] * Partial Thromboplastin Time, Activated (APTT) (04/12/2024 1:53 PM EST) Partial Thromboplastin Time 31.7 26.0 - 36.8 SEC [facility] Comment:For information rega rding the monitoring of direct thrombininhibitors, please refer to Pharmacy. 04/12/2024 1:53 PM EST 04/12/2024 2:00 PM EST Generic External Data Provider LAB BLOOD ORDERAB LES Final Result Performing Organization Address [facility] de Phone Number [facility] [address] [place] [phone] * (ABNORMAL) Prothrombin Time-INR (04/12/2024 1:53 PM EST) Prothrombin Time 12.6(H) 10.9 - 12.4 SEC [facility] INTERNATIONAL NORM RATIO 1.1 0.9 - 1.1 [facility] Comment:INTERNATIONAL NORMAL IZED RATIO (INR) REFERENCE [...] Provider LAB BLOOD ORDERAB LES Final Result [facility] [address] [place], [place] [phone] * (ABNORMAL) CBC auto differential (04/12/2024 1:53 PM EST) White Blood Count 11.3(H) 4.8 - 10.8 X10*3/uL [facility] Red Blood Count 3.33(L) 4.20 - 5.50 X10*6/uL [facility] Hemoglobin 9.1(L) 12.0 - 16.0 g/dl [facility] Hematocrit 28.2(L) 37.0 - 47.0 % [facility] Mean Corpuscular Volume 84.7 80.0 - 98.0 fL [facility] Mean Corpuscular Hemoglobin 27.3 27.0 - 33.0 pg [facility] Mean Corpuscular HGB Conc 32.3 31.0 - 35.0 g/dl [facility] Red Cell Distribution Width 14.0 11.0 - 16.0 % [facility] Platelet Count 411(H) 160 - 400 X10*3/uL [facility] Mean Platelet Volume 9.0(L) 9.4 - 12.3 fL [facility] Neutrophils Percent Auto 72.1 45 - 73 % [facility] Imm Gran Pct Auto 0.6(H) 0.0 - 0.4 % [facility] Lymphocytes Percent Auto 18.6(L) 20 - 40 % [facility] Monocytes Percent Auto 7.1 2 - 11 % [facility] Eosinophils Percent Auto 1.2 0 - 4 % [facility] Basophils Percent Auto 0.4 0 - 2 % [facility] NRBC Pct Auto 0.0 0.0 - 0.2 /100WBC [facility] Neutrophils Absolute Auto 8.2 2.0 - 8.3 x10*3/uL [facility] Imm Gran Abs Auto 0.07(H) 0.00 - 0.03 X10*3/uL [facility] Lymphocytes Absolute Auto 2.1 1.2 - 4.9 X10*3/uL [facility] Monocytes Absolute Auto 0.8 0.1 - 1.2 X10*3/uL [facility] Eosinophils Absolute Auto 0.1 0.0 - 0.4 X10*3/uL [facility] Basophils Absolute Auto 0.1 0.0 - 0.2 X10*3/uL [facility] NRBC Abs Auto 0.000 0.0 - 0.012 X10*3/uL [facility] 04/12/2024 1:53 PM EST 04/12/2024 2:00 PM EST us Generic External Data Provider LAB BLOOD ORDERAB LES Final Result [facility] [address] [place] [phone] documented in this encounter Visit Diagnoses Not on filedocumented in this encounter Additional Health Concerns Assessment Noted Time PHQ-9 Depression Total Score: 8 10/18/19 24 11:35 AM EDT documented as of this encounter Care Teams Electrical Systems Designer Relationship Specialty Start Date End Date Ethel Chase DO [address] [place] [address] PCP - General Family Medicine 10/12/13 Vaishnavi Laird PharmD [address] [place] [address] Pharmacist Internal Medicine 02/07/23 documented as of this encounter
--- OUTSIDE RECORDS SUMMARY | 2024-04-24 13:07 | XMS_ITS | Encounter Summary ---
Author Organization [employer] Address [address] [facility] 7t [place] [address] Care Team Providers Care Child And Family Counselor Name Role Phone ManuelEthel perry Primary Care Provider + [phone] Vaishnavi Laird PharmD Unavailable [phone] Encounter Details Date Type Department Care [...] Whole Blood 185(H) 60 - 115 mg/dL [facility] Comment:METER #: [id number] 3 03/26/2024 7:26 AM EST 03/26/2024 7:31 AM EST us Generic External Data Provider LAB BLOOD ORDERAB LES Final Result [facility] [address] [place] [phone] * (ABNORMAL) Basic Metabolic Panel, Fasting (03/26/2024 5:51 AM EST) Pathologist [facility] Sodium 133(L) 135 - 145 mmol/L [facility] Potassium 4.1 3.3 - 5.1 mmol/L [facility] Chloride 101 96 - 108 mmol/L [facility] Carbon Dioxide 24 22 - 29 mmol/L [facility] Anion Gap 12 12 - 20 [facility] Urea Nitrogen (BUN) 15 9 - 16 mg/dL [facility] Creatinine, Serum 0.85 0.5 - 1.4 mg/dL [facility] Creatinine Clr Calc Pharmacy 75.9 [facility] Comment:Provided height and weight: 157.48 cm,114.8 kg.eGFR (calculated from the MDRD study equation) and eCrCl(calculated from the Cockcroft-Gault equation) are based ondifferent parameters and may not yield comparable results.If eCrCl result is absurd, please check patient'sheight/weight. Estimated Glomerular Filt Rate >60 [facility] Comment:Chronic Kidney Disea se: Estimated GFR < 60 mL/min/1.70i3Hjzliv Kidney Disease: Estimated GFR < 15 mL/min/1.73m2 Glucose Fasting 192(H) 60 - 99 mg/dL [facility] Comment:A fasting glucose of 126 mg/dl or greater on more than oneoccasion is considered diagnostic of diabetes. Calcium 8.8 8.4 - 10.2 mg/dL [facility] 03/26/2024 5:51 AM EST 03/26/2024 6:30 AM EST us Generic External Data Provider LAB BLOOD ORDERAB LES Final Result [facility] [address] [place] [phone] * (ABNORMAL) CBC auto differential (03/26/2024 5:51 AM EST) Pathologist [facility] White Blood Count 11.8(H) 4.8 - 10.8 X10*3/uL [facility] Red Blood Count 3.48(L) 4.20 - 5.50 X10*6/uL [facility] Hemoglobin 9.5(L) 12.0 - 16.0 g/dl [facility] Hematocrit 29.5(L) 37.0 - 47.0 % [facility] Mean Corpuscular Volume 84.8 80.0 - 98.0 fL [facility] Mean Corpuscular Hemoglobin 27.3 27.0 - 33.0 pg [facility] Mean Corpuscular HGB Conc 32.2 31.0 - 35.0 g/dl [facility] Red Cell Distribution Width 13.9 11.0 - 16.0 % [facility] Platelet Count 255 160 - 400 X10*3/uL [facility] Mean Platelet Volume 9.6 9.4 - 12.3 fL [facility] Neutrophils Percent Auto 69.6 45 - 73 % [facility] Imm Gran Pct Auto 0.5(H) 0.0 - 0.4 % [facility] Lymphocytes Percent Auto 20.7 20 - 40 % [facility] Monocytes Percent Auto 8.3 2 - 11 % [facility] Eosinophils Percent Auto 0.5 0 - 4 % [facility] Basophils Percent Auto 0.4 0 - 2 % [facility] NRBC Pct Auto 0.0 0.0 - 0.2 /100WBC [facility] Neutrophils Absolute Auto 8.2 2.0 - 8.3 x10*3/uL [facility] Imm Gran Abs Auto 0.06(H) 0.00 - 0.03 X10*3/uL [facility] Lymphocytes Absolute Auto 2.4 1.2 - 4.9 X10*3/uL [facility] Monocytes Absolute Auto 1.0 0.1 - 1.2 X10*3/uL [facility] Eosinophils Absolute Auto 0.1 0.0 - 0.4 X10*3/uL [facility] Basophils Absolute Auto 0.1 0.0 - 0.2 X10*3/uL [facility] NRBC Abs Auto 0.000 0.0 - 0.012 X10*3/uL [facility] 03/26/2024 5:51 AM EST 03/26/2024 6:30 AM EST us Generic External Data Provider LAB BLOOD ORDERAB LES Final Result [facility] [address] [place] [phone] documented in this encounter Visit Diagnoses Not on filedocumented in this encounter Additional Health Concerns Assessment Noted Time PHQ-9 Depression Total Score: 8 10/18/19 24 11:35 AM EDT documented as of this encounter Care Teams Child And Family Counselor Relationship Specialty Start Date End Date Ethel Chase DO [address] [place] [address] PCP - General Family Medicine 10/12/13 Vaishnavi Laird PharmD [address] [place] [address] Pharmacist Internal Medicine 02/07/23 documented as of this encounter
--- OUTSIDE RECORDS SUMMARY | 2024-04-24 13:07 | XMS_ITS | Encounter Summary ---
Author Organization [employer] Address [address] [facility] 7t [place] [address] Care Team Providers Care Trashman Name Role Phone Ethel Chase DO Primary Care Provider [phone] Vaishnavi Laird PharmD Unavailable Reason for Visit * Reason Comments Med Refill Encounter Details Date Type Department Care Team (Late st Contact Info) Description 10/25/2022 Refill [facility] [address] [place] [address] Eun Ray MD [address] [place] [address] Other chronic pain Social History Tobacco Use [...] documented as of this encounter Care Teams Trashman Relationship Specialty Start Date End Date Ethel Chase DO [address] [place] [address] PCP - General Family Medicine 10/12/13 Vaishnavi Laird, Zana [address] [place] [address] Pharmacist Internal Medicine 02/07/23 documented as of this encounter
== END 2024-04-23 11:11 | disposition home or self-care (01) ==
LOC: HO.HOSX 11:10
PROVIDERS: Visit Provider Physician Assistant
DX: M97.12XD Periprosthetic fracture around internal prosthetic left knee joint, subsequent encounter (principal); Z96.652 Presence of left artificial knee joint; M79.606 Pain in leg, unspecified
CPT/HCPCS: 73552; 99212

== ENCOUNTER 2024-04-23 14:53 | Outpatient (AMB) | payer OTHER, SELFPAY ==
--- NOTE | 2024-04-23 14:59 | A.OFFVIS_ITS ---
Intake Visit Reasons: PO Revision, L Knee Arthroplasty w/NE 03/24/24-Fell Intake Note: Trish is a 68 year old female who presents today for a post operative LT knee revision TKA, DOS 03/24/24. Patient had a recent fall and followed up [place] [facility] [place]. X-rays were taken and patient was placed in a knee immobilizer. Currently she has constant pain with a pain level 8 out of 10. Allergies Iodinated Contrast Media [IV CONTRAST] Allergy (Severe, Verified 04/12/24 13:26) itching, hives morphine [Morphine] Allergy (Intermediate, Verified 04/12/24 13:26) ITCHING, rash tramadol [Ultram] Allergy (Intermediate, Verified 04/12/24 13:26) rash, itching Medication List - Last Reconciled 04/23/24 by Khushi Mathias PA-C acetaminophen 650 mg (2 x 325 mg) PO Q6H PRN 30 days albuterol sulfate 90 mcg/actuation 2 puffs inhalation Q6H PRN aripiprazole 10 mg PO QAM atorvastatin 20 mg PO BEDTIME baclofen 10 mg PO TID PRN blood sugar diagnostic (FreeStyle Lite Strips) As directed celecoxib 200 mg PO BID 30 days cholecalciferol (vitamin D3) 50 mcg PO QPM clotrimazole-betamethasone 1-0.05 % 1 appl topical BID 7 days docusate sodium 100 mg PO BID 30 days enoxaparin 40 mg (0.4 mL) subcut Q24H 42 days fluticasone propion-salmeterol 115-21 mcg/actuation (Advair HFA) 2 puffs inhalation BID PRN fluticasone propionate 50 mcg/actuation 1 spray intranasal BID gabapentin 600 mg PO BID insulin degludec (Tresiba FlexTouch U-100 insulin) 32 units subcut DAILY isosorbide mononitrate ER 30 mg PO DAILY lancets (TRUEplus Lancets) As directed latanoprost 0.005% 1 drp ophthalmic (eye) BEDTIME levothyroxine 112 mcg PO DAILY lisinopril 20 mg PO QPM loratadine 10 mg PO QAM lorazepam 1 mg PO BID PRN metformin 500 mg PO BID metoprolol succinate ER 25 mg PO QAM 90 days mirtazapine 15 mg PO BEDTIME ruxuwiikfuja-cwhc-zxgse acid 18-400 mg-mcg (Tab-A-Rito Multivitamin w-iron) 1 tab PO QAM oxycodone 5 mg PO Q6H PRN oxycodone 5 mg PO Q6H PRN 7 days pantoprazole 40 mg PO QAM prazosin 4 mg PO BEDTIME semaglutide (Ozempic) 2 mg subcut MO venlafaxine ER 150 mg PO QAM venlafaxine ER 75 mg PO QAM walker Folding Front wheeled walker DURATIO 99 DAYS zolpidem 10 mg PO BEDTIME HPI HPI PO Revision, L Knee Arthroplasty w/NE 03/24/24-Fell: Details: 68-year-old female returns to the office today status post revision left knee arthroplasty 03/24/[address] Oro. She is following up today because on 04/12/2024 she fell at home and presented to the emergency department where x- rays were obtained and she was found to have a periprosthetic fracture of the left femur. CT scan was also obtained which confirmed the fracture. We did consult her in the hospital where it was determined at that time no acute surgical intervention was warranted has the prosthesis appears to be stable. She was instructed to remain nonweightbearing in the left lower extremity. She was transferred to a short-term rehab. She presents today for follow-up. [facility] Medical History Arthritis Hypothyroidism Renal calculi Environmental and seasonal allergies Nocturnal hypoxia Abnormal nuclear stress test Diabetes HTN (hypertension) Cardiomyopathy Bilateral nephrolithiasis Retention of urine Acid reflux Surgical History Status post total left knee replacement History of total left knee replacement (TKR) Hx of lithotripsy (2018) History of total right knee replacement (2011) Hx of repair of right rotator cuff (2013) History of cystoscopy Hx of tubal ligation History of hand surgery Family History Brother Breast cancer Social History Household Members: Spouse Household Members Other:: lives w/her grandson Housing: House Are you a primary clinical care manager to a significant other at home: Yes (grandson 17 yrs) Do you presently have visiting nurse or other home services: No 75 years or older and lives alone: No Alcohol intake: current Alcohol intake frequency: does not drink Comment: post op left knee, WBAT Patient Tobacco Use Status: Never used Tobacco Advance Directives Date on File: 04/14/24 service: No Current occupational status: disabled Current occupation: rt handed Gender identity: Female Female Reproductive History Menstrual Age of Menarche: 12 Review of Systems Const All systems reviewed & are unremarkable except as noted in HPI and below Physical Exam Extrem Other: Left knee incision is well healed. Steri-Strips intact. No tenderness to palpation over the knee. She has full extension. Flexion to about 30 degrees passively. Calf supple nontender neurovascularly intact. Office Procedures AMB Fracture Care Fracture Billing Code: Fracture Billing Code Results Reviewed Results Reviewed: X-rays of the left knee obtained in the office today reviewed by me show a periprosthetic left femur fracture. Prosthesis appears to be intact. Assessment & Plan Assessment & Plan (1) Periprosthetic fracture around internal prosthetic left knee joint, initial encounter: Code(s): M97.12XA - Periprosthetic fracture around internal prosthetic left knee joint, initial encounter Category: Medical (2) Status post revision of total replacement of left knee: Code(s): Z96.652 - Presence of left artificial knee joint Category: Surgical Plan Dr. Oro was available to see the patient with me today. We explained the extent of the injury to the patient and discussed her treatment plan. Currently she will remain nonweightbearing for up to 3 months on the left lower extremity. She can perform gentle range of motion of the knee to tolerance. He was explained that she may have some stiffness as a result of this injury in the left knee. She can work on isometric quad exercises. I do recommend she wear the knee immobilizer when she is up and transferring to reduce risk of further injury if she were to fall. When she is resting in bed or in a chair she can take the brace off. She will continue with Lovenox for DVT prophylaxis. And she will see us back in 2 weeks with repeat x-rays, sooner if needed. Orders: Orders XR femur LT 2V Today M79.606 - Pain in leg, unspecified Coding Level of Care Code Global (04750) Diagnoses Periprosthetic fracture around internal prosthetic left knee joint, initial encounter M97.12XA Status post revision of total replacement of left knee Z96.652 CPT Codes Fracture Care - Fracture Billing Code: Fracture Billing Code ([id number])
--- OUTSIDE RECORDS SUMMARY | 2024-04-23 18:11 | XMS_ITS | Encounter Summary ---
Author Organization [facility] Address [address] [place] [address] Care Team Providers Care Safe Deposit Clerk Name Role Phone Matias Bowling MD Primary Care Provider [phone] Encounter Details Date Type Department Care Team (Late st Contact Info) Description 04/23/2024 Lab Requisition [facility] - Main Lab [address] [place] [address] Matias Bowling MD [address] [place] [address] [address] [place], [address] Essential (primary) hypertension Social History Tobacco Use Types Packs/Day Years Used Date Smoking Tobacco: Never Assessed Comments Unknown Sex and Gender Information Value Date Recorded Sex Assigned at Not on file Legal Sex Female 10:04 AM EST Gender Identity Not on file Sexual Orientation Not on file documented as of this encounter Plan of Treatment Not on file documented as of this encounter Procedures Procedure Name Priority Date/Time Associated Diagnosis Comments COMPLETE BLOOD COUNT Routine 04/23/2024 5:04 AM EST Essential (primary) hypertension COMPREHENSIVE METABOLIC PANEL Routine 04/23/2024 5:04 AM EST Essential (primary) hypertension documented in this encounter Results * (ABNORMAL) Comprehensive metabolic panel (04/23/2024 5:04 AM EST) Sodium 143 133 - 145 mmol/L LAB CHEMISTRY METHOD 04/23/2024 10:18 AM EST [facility] Potassium 4.4 3.5 - 5.5 mmol/L LAB CHEMISTRY METHOD 04/23/2024 10:18 AM EST [facility] Chloride 109 96 - 110 mmol/L LAB CHEMISTRY METHOD 04/23/2024 10:18 AM [facility] CO2 25 21 - 32 mmol/L LAB CHEMISTRY METHOD 04/23/2024 10:18 AM [facility] Anion Gap 9 3 - 11 LAB CHEMISTRY METHOD 04/23/2024 10:18 AM [facility] Glucose 114(H) 70 - 100 mg/dL LAB CHEMISTRY METHOD 04/23/2024 10:18 AM [facility] BUN 17 5 - 25 mg/dL LAB CHEMISTRY METHOD 04/23/2024 10:18 AM [facility] Creatinine 1.01 0.50 - 1.10 mg/dL LAB CHEMISTRY METHOD 04/23/2024 10:18 AM [facility] eGFR 61 >=60 mL/min/1. 73m2 LAB CHEMISTRY METHOD 04/23/2024 10:18 AM [facility] Comment:Calculation based on the??Chronic Kidney Disease Epidemiology Collaboration (CKD-EPI) equation refit??without adjustment for race. BUN/Creatinine Ratio 16.8 LAB CHEMISTRY METHOD 04/23/2024 10:18 AM [facility] Calcium 9.4 8.5 - 10.5 mg/dL LAB CHEMISTRY METHOD 04/23/2024 10:18 AM [facility] AST (SGOT) 18 10 - 42 unit/L LAB CHEMISTRY METHOD 04/23/2024 10:18 AM [facility] ALT (SGPT) 25 10 - 60 unit/L LAB CHEMISTRY METHOD 04/23/2024 10:18 AM [facility] Alkaline Phosphatase 165(H) 42 - 121 unit/L LAB CHEMISTRY METHOD 04/23/2024 10:18 AM [facility] Total Protein 7.0 6.0 - 8.0 g/dL LAB CHEMISTRY METHOD 04/23/2024 10:18 AM [facility] Albumin 3.3 3.2 - 5.0 g/dL LAB CHEMISTRY METHOD 04/23/2024 10:18 AM [facility] Total Bilirubin 0.4 0.0 - 1.4 mg/dL LAB CHEMISTRY METHOD 04/23/2024 10:18 AM [facility] Blood Venous blood specimen / Unknown Venipuncture / Unknown 04/23/2024 5:04 AM EST 04/23/2024 8:47 AM EST us Matias Bowling MD LAB BLOOD ORDERABLES Final Resul t [facility] [address] [place] [address], [place] [phone] * (ABNORMAL) Complete blood count (04/23/2024 5:04 AM EST) WBC 8.9 4.8 - 10.8 K/mcL LAB HEMETOLOGY METHOD 04/23/2024 9:28 AM [facility] RBC 3.40(L) 3.80 - 4.80 M/mcL LAB HEMETOLOGY METHOD 04/23/2024 9:28 AM [facility] Hemoglobin 9.2(L) 11.5 - 16.0 g/dL LAB HEMETOLOGY METHOD 04/23/2024 9:28 AM [facility] Hematocrit 30.3(L) 35.0 - 47.0 % LAB HEMETOLOGY METHOD 04/23/2024 9:28 AM [facility] MCV 88.1 79.0 - 98.0 FL LAB HEMETOLOGY METHOD 04/23/2024 9:28 AM [facility] MCH 26.7(L) 27.0 - 32.0 pcg LAB HEMETOLOGY METHOD 04/23/2024 9:28 AM [facility] MCHC 30.4(L) 32.0 - 37.0 g/dL LAB HEMETOLOGY METHOD 04/23/2024 9:28 AM [facility] RDW 14.6 11.0 - 15.0 % LAB HEMETOLOGY METHOD 04/23/2024 9:28 AM EST [facility] Platelets 333 130 - 400 K/mcL LAB HEMETOLOGY METHOD 04/23/2024 9:28 AM EST [facility] MPV 9.8 7.0 - 11.0 FL LAB HEMETOLOGY METHOD 04/23/2024 9:28 AM EST [facility] NRBC 0.0 <1.0 % LAB HEMETOLOGY METHOD 04/23/2024 9:28 AM EST [facility] NRBC Absolute 0.00 <0.10 K/mcL LAB HEMETOLOGY METHOD 04/23/2024 9:28 AM EST [facility] Blood Venous blood specimen / Unknown Venipuncture / Unknown 04/23/2024 5:04 AM EST 04/23/2024 8:47 AM EST us Matias Bowling MD LAB BLOOD ORDERABLES Final Resul t [facility] [address] [place] [address], documented in this encounter Visit Diagnoses Diagnosis Essential (primary) hypertension Unspecified essential hypertension documented in this encounter Care Teams Safe Deposit Clerk Relationship Specialty Start Date End Date Matias Bowling MD [address] [place] [phone] PCP - General Family Medicine 04/16/24 documented as of this encounter
--- OUTSIDE RECORDS SUMMARY | 2024-04-23 18:11 | XMS_ITS | Encounter Summary ---
Author Organization [facility] Address [address] [place] [address] Care Team Providers Care Flower Machine Operator Name Role Phone Matias Bowling MD Primary Care Provider [phone] Encounter Details Date Type Department Care Team (Late st Contact Info) Description 04/16/2024 Lab Requisition [facility] - Main Lab [address] [place] [address] Matias Bowling MD [address] [place] [address] [address] [place], [address] Essential (primary) hypertension Social History Tobacco [...] Associated Diagnosis Comments COMPLETE BLOOD COUNT Routine 04/16/2024 7:33 AM EST Essential (primary) hypertension COMPREHENSIVE METABOLIC PANEL Routine 04/16/2024 7:33 AM EST Essential (primary) hypertension documented in this encounter Results * (ABNORMAL) Comprehensive metabolic panel (04/16/2024 7:33 AM EST) Sodium 141 133 - 145 mmol/L LAB CHEMISTRY METHOD 04/16/2024 11:36 AM EST [facility] Potassium 4.2 3.5 - 5.5 mmol/L LAB CHEMISTRY METHOD 04/16/2024 11:36 AM EST [facility] Chloride 103 96 - 110 mmol/L LAB CHEMISTRY METHOD 04/16/2024 11:36 AM [facility] CO2 25 21 - 32 mmol/L LAB CHEMISTRY METHOD 04/16/2024 11:36 AM [facility] Anion Gap 13(H) 3 - 11 LAB CHEMISTRY METHOD 04/16/2024 11:36 AM [facility] Glucose 96 70 - 100 mg/dL LAB CHEMISTRY METHOD 04/16/2024 11:36 AM [facility] BUN 13 5 - 25 mg/dL LAB CHEMISTRY METHOD 04/16/2024 11:36 AM [facility] Creatinine 1.13(H) 0.50 - 1.10 mg/dL LAB CHEMISTRY METHOD 04/16/2024 11:36 AM [facility] eGFR 53(L) >=60 mL/min/1. 73m2 LAB CHEMISTRY METHOD 04/16/2024 11:36 AM [facility] Comment:Calculation based on the??Chronic Kidney Disease Epidemiology Collaboration (CKD-EPI) equation refit??without adjustment for race. BUN/Creatinine Ratio 11.5 LAB CHEMISTRY METHOD 04/16/2024 11:36 AM [facility] Calcium 9.1 8.5 - 10.5 mg/dL LAB CHEMISTRY METHOD 04/16/2024 11:36 AM [facility] AST (SGOT) 31 10 - 42 unit/L LAB CHEMISTRY METHOD 04/16/2024 11:36 AM [facility] ALT (SGPT) 33 10 - 60 unit/L LAB CHEMISTRY METHOD 04/16/2024 11:36 AM [facility] Alkaline Phosphatase 181(H) 42 - 121 unit/L LAB CHEMISTRY METHOD 04/16/2024 11:36 AM [facility] Total Protein 7.5 6.0 - 8.0 g/dL LAB CHEMISTRY METHOD 04/16/2024 11:36 AM [facility] Albumin 3.3 3.2 - 5.0 g/dL LAB CHEMISTRY METHOD 04/16/2024 11:36 AM [facility] Total Bilirubin 0.4 0.0 - 1.4 mg/dL LAB CHEMISTRY METHOD 04/16/2024 11:36 AM [facility] Blood Venous blood specimen / Unknown Venipuncture / Unknown 04/16/2024 7:33 AM EST 04/16/2024 10:20 AM EST us Matias Bowling MD LAB BLOOD ORDERABLES Final Resul t [facility] [address] [place] [address], * (ABNORMAL) Complete blood count (04/16/2024 7:33 AM EST) WBC 11.5(H) 4.8 - 10.8 K/mcL LAB HEMETOLOGY METHOD 04/16/2024 11:12 AM [facility] RBC 3.70(L) 3.80 - 4.80 [facility] LAB HEMETOLOGY METHOD 04/16/2024 11:12 AM [facility] Hemoglobin 9.9(L) 11.5 - 16.0 g/dL LAB HEMETOLOGY METHOD 04/16/2024 11:12 AM [facility] Hematocrit 32.1(L) 35.0 - 47.0 % LAB HEMETOLOGY METHOD 04/16/2024 11:12 AM [facility] MCV 87.5 79.0 - 98.0 FL LAB HEMETOLOGY METHOD 04/16/2024 11:12 AM [facility] MCH 27.0 27.0 - 32.0 pcg LAB HEMETOLOGY METHOD 04/16/2024 11:12 AM [facility] MCHC 30.8(L) 32.0 - 37.0 g/dL LAB HEMETOLOGY METHOD 04/16/2024 11:12 AM [facility] RDW 14.2 11.0 - 15.0 % LAB HEMETOLOGY METHOD 04/16/2024 11:12 AM EST [facility] Platelets 443(H) 130 - 400 K/mcL LAB HEMETOLOGY METHOD 04/16/2024 11:12 AM EST [facility] MPV 9.8 7.0 - 11.0 FL LAB HEMETOLOGY METHOD 04/16/2024 11:12 AM EST [facility] NRBC 0.0 <1.0 % LAB HEMETOLOGY METHOD 04/16/2024 11:12 AM EST [facility] NRBC Absolute 0.00 <0.10 K/mcL LAB HEMETOLOGY METHOD 04/16/2024 11:12 AM EST [facility] Blood Venous blood specimen / Unknown Venipuncture / Unknown 04/16/2024 7:33 AM EST 04/16/2024 10:20 AM EST us Matias Bowling MD LAB BLOOD ORDERABLES Final Resul t [facility] [address] [place] [address], documented in this encounter Visit Diagnoses Diagnosis Essential (primary) hypertension Unspecified essential hypertension documented in this encounter Care Teams Flower Machine Operator Relationship Specialty Start Date End Date Matias Bowling MD [address] [place] [phone] PCP - General Family Medicine 04/16/24 documented as of this encounter
--- OUTSIDE RECORDS SUMMARY | 2024-04-23 18:11 | XMS_ITS | Clinical Summary ---
Author Organization [address] [facility] Address [address] [place] [address] Phone Care Team Providers Care Energy Crop Farmer Name Role Phone Matias Bowling MD Primary Care Provider [phone] Encounters Date Type Department Care Team Description 04/23/2024 Lab Requisition [facility] Lab [address] [place] [address] Matias Bowling MD Essential (primary) hypertension 04/16/2024 Lab Requisition [facility] [address] [place] [address] Matias Bowling MD Essential (primary) hypertension from Last 3 Months Social History Tobacco Use Types Packs/Day Years Used Date Smoking Tobacco: Never Assessed Comments Unknown Sex and Gender Information Value Date Recorded Sex Assigned at Not on file Legal Sex Female 10:04 AM EST Gender Identity Not on file Sexual Orientation Not on file Plan of Treatment Health Maintenance Due Date Last Done Comments Breast Cancer Screening 1955 DTaP,Tdap,and Td Vaccines (1 - Tdap) 12/29/1974 Pneumococcal Vaccine: 50+ Years (1 of 1 - PCV) 12/29/2005 Zoster Vaccines (1 of 2) 12/29/2005 COVID-19 Vaccine ( - 2023-2 5 season) 2023 Influenza Vaccine (#1) 2023 Cholesterol Screening (Lipid Panel) 04/16/2024 Colorectal Cancer Screening: Colonoscopy 04/16/2024 Depression Screening 04/16/2024 Falls Risk Assessment 04/16/2024 Hepatitis C Screening 04/16/2024 Medicare Annual Wellness Visit 04/16/2024 Osteoporosis Screening (Bone Density Screening) 04/16/2024 Social Influencers of Health Screening 04/16/2024 Hypertension/CHF/CAD Annual BMP Blood Test 04/16/2025 04/23/2024, 04/16/2024 RSV Immunization Patients 60 + Years Old (1 - 1-dose 75+ series) 12/29/2030 HIB Vaccines Aged Out No longer eligi ble based on patient's age to complete this topic HPV Vaccines Aged Out No longer eligi ble based on patient's age to complete this topic Hepatitis A Vaccines Aged Out No long er eligible based on patient's age to complete this topic Hepatitis B Vaccines Aged Out No long er eligible based on patient's age to complete this topic IPV Vaccines Aged Out No longer eligi ble based on patient's age to complete this topic MMR Vaccines Aged Out No longer eligi ble based on patient's age to complete this topic Meningococcal ACWY Vaccine Aged Out N o longer eligible based on patient's age to complete this topic Meningococcal B Vacine Aged Out No lo nger eligible based on patient's age to complete this topic RSV Immunization Patients Under 20 months Aged Out No longer eligible b ased on patient's age to complete this topic Varicella Vaccines Aged Out No longer eligible based on patient's age to complete this topic Procedures Procedure Name Priority Date/Time Associated Diagnosis Comments COMPREHENSIVE METABOLIC PANEL Routine 04/23/2024 5:04 AM EST Essential (primary) hypertension COMPLETE BLOOD COUNT Routine 04/23/2024 5:04 AM EST Essential (primary) hypertension COMPREHENSIVE METABOLIC PANEL Routine 04/16/2024 7:33 AM EST Essential (primary) hypertension COMPLETE BLOOD COUNT Routine 04/16/2024 7:33 AM EST Essential (primary) hypertension from Last 3 Months Results * (ABNORMAL) Complete blood count (04/23/2024 5:04 AM EST) Only the most recent of2 resultswithin the time period is included. WBC 8.9 4.8 - 10.8 K/mcL LAB HEMETOLOGY METHOD 04/23/2024 9:28 AM EST [facility] RBC 3.40(L) 3.80 - 4.80 M/[facility] LAB HEMETOLOGY METHOD 04/23/2024 9:28 AM [facility] Hemoglobin 9.2(L) 11.5 - 16.0 g/dL LAB HEMETOLOGY METHOD 04/23/2024 9:28 AM [facility] Hematocrit 30.3(L) 35.0 - 47.0 % LAB HEMETOLOGY METHOD 04/23/2024 9:28 AM [facility] MCV 88.1 79.0 - 98.0 FL LAB HEMETOLOGY METHOD 04/23/2024 9:28 AM [facility] MCH 26.7(L) 27.0 - 32.0 pcg LAB HEMETOLOGY METHOD 04/23/2024 9:28 AM [facility] MCHC 30.4(L) 32.0 - 37.0 g/dL LAB HEMETOLOGY METHOD 04/23/2024 9:28 AM [facility] RDW 14.6 11.0 - 15.0 % LAB HEMETOLOGY METHOD 04/23/2024 9:28 AM [facility] Platelets 333 130 - 400 K/mcL LAB HEMETOLOGY METHOD 04/23/2024 9:28 AM [facility] MPV 9.8 7.0 - 11.0 FL LAB HEMETOLOGY METHOD 04/23/2024 9:28 AM [facility] NRBC 0.0 <1.0 % LAB HEMETOLOGY METHOD 04/23/2024 9:28 AM [facility] NRBC Absolute 0.00 <0.10 K/mcL LAB HEMETOLOGY METHOD 04/23/2024 9:28 AM [facility] Blood Venous blood specimen / Unknown Venipuncture / Unknown 04/23/2024 5:04 AM EST 04/23/2024 8:47 AM EST us Matias Bowling MD LAB BLOOD ORDERABLES Final Resul t [facility] [address] [place] [address], * (ABNORMAL) Comprehensive metabolic panel (04/23/2024 5:04 AM EST) Only the most recent of2 resultswithin the time period is included. Sodium 143 133 - 145 mmol/L LAB CHEMISTRY METHOD 04/23/2024 10:18 AM [facility] Potassium 4.4 3.5 - 5.5 mmol/L LAB CHEMISTRY METHOD 04/23/2024 10:18 AM [facility] Chloride 109 96 - 110 mmol/L LAB CHEMISTRY METHOD 04/23/2024 10:18 AM [facility] CO2 25 21 - 32 mmol/L LAB CHEMISTRY METHOD 04/23/2024 10:18 AM [facility] Anion Gap 9 3 - 11 LAB CHEMISTRY METHOD 04/23/2024 10:18 AM [facility] Glucose 114(H) 70 - 100 mg/dL LAB CHEMISTRY METHOD 04/23/2024 10:18 AM [facility] BUN 17 5 - 25 mg/dL LAB CHEMISTRY METHOD 04/23/2024 10:18 AM [facility] Creatinine 1.01 0.50 - 1.10 mg/dL LAB CHEMISTRY METHOD 04/23/2024 10:18 AM [facility] eGFR 61 >=60 mL/min/1. 73m2 LAB CHEMISTRY METHOD 04/23/2024 10:18 AM [facility] Comment:Calculation based on the??Chronic Kidney Disease Epidemiology Collaboration (CKD-EPI) equation refit??without adjustment for race. BUN/Creatinine Ratio 16.8 LAB CHEMISTRY METHOD 04/23/2024 10:18 AM [facility] Calcium 9.4 8.5 - 10.5 mg/dL LAB CHEMISTRY METHOD 04/23/2024 10:18 AM [facility] AST (SGOT) 18 10 - 42 unit/L LAB CHEMISTRY METHOD 04/23/2024 10:18 AM [facility] ALT (SGPT) 25 10 - 60 unit/L LAB CHEMISTRY METHOD 04/23/2024 10:18 AM [facility] Alkaline Phosphatase 165(H) 42 - 121 unit/L LAB CHEMISTRY METHOD 04/23/2024 10:18 AM [facility] Total Protein 7.0 6.0 - 8.0 g/dL LAB CHEMISTRY METHOD 04/23/2024 10:18 AM [facility] Albumin 3.3 3.2 - 5.0 g/dL LAB CHEMISTRY METHOD 04/23/2024 10:18 AM [facility] Total Bilirubin 0.4 0.0 - 1.4 mg/dL LAB CHEMISTRY METHOD 04/23/2024 10:18 AM [facility] Blood Venous blood specimen / Unknown Venipuncture / Unknown 04/23/2024 5:04 AM EST 04/23/2024 8:47 AM EST us Matias Bowling MD LAB BLOOD ORDERABLES Final Resul t [facility] [address] [place] [address], [place] [phone] from Last 3 Months Insurance [place] [facility] MEDICARE Member Subscriber Plan / Payer (Ef fective 2022-Present) Name:Nicole Hunterz Relation to Subscriber:Self Name:Nicole Hunterz Payer ID:[id number] Group ID:Not on file Type:Not on file Address: [place] [address] [phone] Care Teams Energy Crop Farmer Relationship Specialty Start Date End Date Matias Bowling MD [address] [place] [address] [place] [phone] PCP - General Family Medicine 04/16/24
== END 2024-04-23 15:42 | disposition home or self-care (01) ==
PROVIDERS: PCP Family Medicine; Visit Provider Physician Assistant
DX: M97.12XA Periprosthetic fracture around internal prosthetic left knee joint, initial encounter (principal); Z96.652 Presence of left artificial knee joint
CPT/HCPCS: 99024

== ENCOUNTER → 2024-04-23 14:53 | Outpatient (BNV) | payer OTHER, SELFPAY | PROVIDERS: Visit Provider Radiology Diagnostic Radiology | DX: M79.605 Pain in left leg (principal) | CPT/HCPCS: 73552 ==

== ENCOUNTER 2024-04-30 12:10 | Outpatient (REF) | payer OTHER, SELFPAY ==
--- OUTSIDE RECORDS SUMMARY | 2024-04-30 14:43 | XMS_ITS | Encounter Summary ---
Author Organization [employer] Address [address] [place] [address] 7t [place] [address] Care Team Providers Care Sap Plant Maintenance Consultant Name Role Phone Ethel Chase DO Primary Care Provider Vaishnavi Laird PharmD Unavailable Reason for Visit * Reason Comments Med Refill Encounter Details Date Type Department Care Team (Late st Contact Info) Description 06/06/2022 Refill [facility] [address] [place] [address] Ethel Chase DO [address] [place] [address] Other chronic pain Social History Tobacco Use [...] documented as of this encounter Care Teams Sap Plant Maintenance Consultant Relationship Specialty Start Date End Date Ethel Chase DO [address] [place] [address] PCP - General Family Medicine 10/12/13 Vaishnavi Laird PharmD [address] [place] [address] Pharmacist Internal Medicine 02/07/23 documented as of this encounter
--- OUTSIDE RECORDS SUMMARY | 2024-04-30 14:43 | XMS_ITS | Encounter Summary ---
Author Organization [employer] Address [address] [facility] [address]t [place] [address] Care Team Providers Care Assistant Boiler Operator Name Role Phone ManuelEthel perry Primary Care Provider + [phone] Vaishnavi Laird PharmD Unavailable [phone] Reason for Visit * Reason Comments Med Refill Encounter Details Date Type Department Care Team ([facility] st Contact Info) Description 02/02/2023 Refill [facility] [address] [place] [address] Sadie Rivera, ANP [address] [place] [address] Type 2 diabetes mellitus with other specified complication, unspecified whether terminal superintendent insulin use ([facility]) Social History Tobacco Use Types Packs/Day Years [...] with other specified complication, unspecified whether terminal superintendent insulin use ([facility]) documented in this encounter Additional Health Concerns Assessment Noted Time PHQ-9 Depression Total Score: 0 02/08/20 22 10:43 AM EST documented as of this encounter Care Teams Assistant Boiler Operator Relationship Specialty Start Date End Date Ethel Chase DO [address] [place] [address] PCP - General Family Medicine 10/12/13 Vaishnavi Laird PharmD [address] [place] [address] Pharmacist Internal Medicine 02/07/23 documented as of this encounter
--- OUTSIDE RECORDS SUMMARY | 2024-04-30 14:43 | XMS_ITS | Clinical Summary ---
Author Organization [facility] Address [address] [place] [address] Phone Care Team Providers Care Doll Surgeon Name Role Phone Matias Bowling MD Primary Care Provider [phone] Encounters Date Type Department Care Team Description 04/30/2024 Lab Requisition [facility] Lab [address] [place] [phone] Matias Bowling MD Essential (primary) hypertension 04/29/2024 Lab Requisition [facility] Lab [address] [place] [phone] Matias Bowling MD Essential (primary) hypertension 04/29/2024 Lab Requisition [facility] Lab [address] [place] [phone] Matias Bowling MD Hyperlipidemia, unspecified; 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 classified elsewhere (CMS/HCC) 04/28/2024 Lab Requisition [facility] Lab [address] [place] [phone] Matias Bowling MD Diarrhea, unspecified 04/23/2024 Lab Requisition [facility] Lab [address] [place] [phone] Matias Bowling MD Essential (primary) hypertension 04/16/2024 Lab Requisition [facility] Lab [address] [place] [phone] Matias Bowling MD Essential (primary) hypertension from [...] Vaccines (1 of 2) 12/29/2005 COVID-19 Vaccine (1 - 2023-2 5 season) 2023 Influenza Vaccine (#1) 2023 Cholesterol Screening (Lipid Panel) 04/16/2024 Colorectal Cancer Screening: Colonoscopy 04/16/2024 Depression Screening 04/16/2024 Falls Risk Assessment 04/16/2024 Hepatitis C Screening 04/16/2024 Medicare Annual Wellness Visit 04/16/2024 Osteoporosis Screening (Bone Density Screening) 04/16/2024 Social Influencers of Health Screening 04/16/2024 Hypertension/CHF/CAD Annual BMP Blood Test 04/29/2025 04/29/2024, 04/23/2024, 04/16/2024 RSV Immunization Patients 60 + [...] Associated Diagnosis Comments COMPREHENSIVE METABOLIC PANEL Routine 04/29/2024 6:35 AM EST Hyperlipidemia, unspecified 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 classified elsewhere (CMS/HCC) COMPLETE BLOOD COUNT Routine 04/29/2024 6:35 AM EST Hyperlipidemia, unspecified 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 classified elsewhere (CMS/HCC) COMPREHENSIVE METABOLIC PANEL Routine 04/23/2024 5:04 AM EST Essential (primary) hypertension COMPLETE BLOOD COUNT Routine 04/23/2024 5:04 AM EST Essential (primary) hypertension COMPREHENSIVE METABOLIC PANEL Routine 04/16/2024 7:33 AM EST Essential (primary) hypertension COMPLETE BLOOD COUNT Routine 04/16/2024 7:33 AM EST Essential (primary) hypertension from Last 3 Months Results * (ABNORMAL) Complete blood count (04/29/2024 6:35 AM EST) Only the most recent of3 resultswithin the time period is included. [facility] WBC 9.6 4.8 - 10.8 K/mcL LAB HEMETOLOGY METHOD 04/29/2024 11:28 AM [facility] LAB RBC 3.70(L) 3.80 - 4.80 M/mcL LAB HEMETOLOGY METHOD 04/29/2024 11:28 AM [facility] LAB Hemoglobin 9.9(L) 11.5 - 16.0 g/dL LAB HEMETOLOGY METHOD 04/29/2024 11:28 AM [facility] LAB Hematocrit 32.0(L) 35.0 - 47.0 % LAB HEMETOLOGY METHOD 04/29/2024 11:28 AM [facility] LAB MCV 87.0 79.0 - 98.0 FL LAB HEMETOLOGY METHOD 04/29/2024 11:28 AM [facility] LAB MCH 26.9(L) 27.0 - 32.0 pcg LAB HEMETOLOGY METHOD 04/29/2024 11:28 AM EST [facility] LAB MCHC 30.9(L) 32.0 - 37.0 g/dL LAB HEMETOLOGY METHOD 04/29/2024 11:28 AM [facility] LAB RDW 14.6 11.0 - 15.0 % LAB HEMETOLOGY METHOD 04/29/2024 11:28 AM [facility] LAB Platelets 358 130 - 400 K/mcL LAB HEMETOLOGY METHOD 04/29/2024 11:28 AM [facility] LAB MPV 10.0 7.0 - 11.0 FL LAB HEMETOLOGY METHOD 04/29/2024 11:28 AM [facility] LAB NRBC 0.0 <1.0 % LAB HEMETOLOGY METHOD 04/29/2024 11:28 AM [facility] LAB NRBC Absolute 0.00 <0.10 K/mcL LAB HEMETOLOGY METHOD 04/29/2024 11:28 AM [facility] LAB Blood Venous blood specimen / Unknown Venipuncture / Unknown 04/29/2024 6:35 AM EST 04/29/2024 10:01 AM EST us Matias Bowling MD LAB BLOOD ORDERABLES Final Resul t [facility] LAB [address] [place] [address], * (ABNORMAL) Comprehensive metabolic panel (04/29/2024 6:35 AM EST) Only the most recent of3 resultswithin the time period is included. Sodium 142 133 - 145 mmol/L LAB CHEMISTRY METHOD 04/29/2024 2:49 PM [facility] LAB Potassium 4.5 3.5 - 5.5 mmol/L LAB CHEMISTRY METHOD 04/29/2024 2:49 PM [facility] LAB Chloride 111(H) 96 - 110 mmol/L LAB CHEMISTRY METHOD 04/29/2024 2:49 PM [facility] LAB CO2 23 21 - 32 mmol/L LAB CHEMISTRY METHOD 04/29/2024 2:49 PM [facility] LAB Anion Gap 8 3 - 11 LAB CHEMISTRY METHOD 04/29/2024 2:49 PM [facility] LAB Glucose 118(H) 70 - 100 mg/dL LAB CHEMISTRY METHOD 04/29/2024 2:49 PM [facility] BUN 18 5 - 25 mg/dL LAB CHEMISTRY METHOD 04/29/2024 2:49 PM [facility] LAB Creatinine 0.94 0.50 - 1.10 mg/dL LAB CHEMISTRY METHOD 04/29/2024 2:49 PM [facility] LAB eGFR 66 >=60 mL/min/1. 73m2 LAB CHEMISTRY METHOD 04/29/2024 2:49 PM [facility] LAB Comment:Calculation based on the??Chronic Kidney Disease Epidemiology Collaboration (CKD-EPI) equation refit??without adjustment for race. BUN/Creatinine Ratio 19.1 LAB CHEMISTRY METHOD 04/29/2024 2:49 PM [facility] LAB Calcium 9.2 8.5 - 10.5 mg/dL LAB CHEMISTRY METHOD 04/29/2024 2:49 PM [facility] LAB AST (SGOT) 21 10 - 42 unit/L LAB CHEMISTRY METHOD 04/29/2024 2:49 PM [facility] LAB ALT (SGPT) 24 10 - 60 unit/L LAB CHEMISTRY METHOD 04/29/2024 2:49 PM [facility] LAB Alkaline Phosphatase 170(H) 42 - 121 unit/L LAB CHEMISTRY METHOD 04/29/2024 2:49 PM [facility] LAB Total Protein 6.9 6.0 - 8.0 g/dL LAB CHEMISTRY METHOD 04/29/2024 2:49 PM [facility] Albumin 3.2 3.2 - 5.0 g/dL LAB CHEMISTRY METHOD 04/29/2024 2:49 PM EST [facility] Total Bilirubin 0.3 0.0 - 1.4 mg/dL LAB CHEMISTRY METHOD 04/29/2024 2:49 PM EST [facility] LAB Blood Venous blood specimen / Unknown Venipuncture / Unknown 04/29/2024 6:35 AM EST 04/29/2024 10:01 AM EST us Matias Bowling MD LAB BLOOD ORDERABLES Final Resul t [facility] LAB [address] [place] [address], from Last 3 Months Additional Health Concerns Infection Onset Date Last Indicated Gastrointestinal Rule-Out 04/28/20242024 Insurance [facility] MEDICARE Member Subscriber Plan / Payer (Ef fective 2022-Present) Name:Trish [place] Relation to Subscriber:Self Name:Trish [place] Payer ID:[id number] Group ID:[id number] Type:Not on file Address: [place] [address] [phone] Care Teams Doll Surgeon Relationship Specialty Start Date End Date Matias Bowling MD [address] [place] [address] [address] [place] [phone] PCP - General Family Medicine 04/16/24
--- OUTSIDE RECORDS SUMMARY | 2024-04-30 14:43 | XMS_ITS | Encounter Summary ---
Author Organization [facility] Address [address] [place] [address] Care Team Providers Care Incident Handler Name Role Phone Matias Bowling MD Primary Care Provider [phone] Encounter Details Date Type Department Care Team (Late st Contact Info) Description 04/30/2024 Lab Requisition [facility] Lab [address] [facility] [place] [address] Matias Bowling MD [address] [address] Essential (primary) hypertension Social History Tobacco Use Types Packs/Day Years Used Date Smoking Tobacco: Never Assessed Comments Unknown Sex and Gender Information Value Date Recorded Sex Assigned at Not on file Legal Sex Female 10:04 AM EST Gender Identity Not on file Sexual Orientation Not on file documented as of this encounter Plan of Treatment Scheduled Orders Name Type Priority Associated Diagnoses Orde r Schedule Complete blood count Lab Routine Essential (primary) hypertension Ordered: 04/30/2024 Basic metabolic panel Lab Routine Essential (primary) hypertension Ordered: 04/30/2024 documented as of this encounter Visit Diagnoses Diagnosis Essential (primary) hypertension Unspecified essential hypertension documented in this encounter Additional Health Concerns Infection Onset Date Last Indicated Resolved Time Gastrointestinal Rule-Out 04/28/2024 04/27/2024 documented as of this encounter Care Teams Incident Handler Relationship Specialty Start Date End Date Matias Bowling MD [address] [address] PCP - General Family Medicine 04/16/24 documented as of this encounter
--- OUTSIDE RECORDS SUMMARY | 2024-04-30 14:43 | XMS_ITS | Encounter Summary ---
Author Organization [employer] Address [address] [facility] [address] [place] [address] Care Team Providers Care Market News Reporter Name Role Phone Ethel Chase DO Primary Care Provider [phone] Vaishnavi Laird PharmD Unavailable [phone] Reason for Visit * Reason Onset Date Comments Pre-Op 03/23/2024 Encounter Details Date Type Department Care Team (Late st Contact Info) Description 03/23/2024 Telephone [facility] [address] [place] [address] Ethel Chase DO [address] [place] [address] Pre-Op Social History Tobacco Use Types Packs/Day [...] Yes Surgeon's name: Dave Oro Facility name: [facility] [place] Orthopedic Surgeon's office number: [phone] Surgeon's office fax number: [phone] Contact name (person you spoke with): Trish [...] documented as of this encounter Care Teams Market News Reporter Relationship Specialty Start Date End Date Ethel Chase DO [address] [place] [address] PCP - General Family Medicine 10/12/13 Vaishnavi Laird, Zana [address] [place] [id number] Pharmacist Internal Medicine 02/07/23 documented as of this encounter
--- OUTSIDE RECORDS SUMMARY | 2024-04-30 14:43 | XMS_ITS | Encounter Summary ---
Author Organization [employer] Address [address] [place] [address] [address] [place] [address] Care Team Providers Care Liner Installer Name Role Phone Ethel Chase DO Primary Care Provider [phone] Vaishnavi Laird PharmD Unavailable Reason for Visit * Reason Comments Med Refill Encounter Details Date Type Department Care Team (Late st Contact Info) Description 06/07/2022 Refill [facility] [address] [place] [address] Ethel Chase DO [address] [place] [address] Other chronic pain Social History Tobacco Use [...] documented as of this encounter Care Teams Liner Installer Relationship Specialty Start Date End Date Ethel Chase DO [address] [place] [address] PCP - General Family Medicine 10/12/13 Vaishnavi Laird PharmD [address] [place] [address] Pharmacist Internal Medicine 02/07/23 documented as of this encounter
--- OUTSIDE RECORDS SUMMARY | 2024-04-30 14:43 | XMS_ITS | Encounter Summary ---
Author Organization [facility] Address [address] [place] [address] Care Team Providers Care Machine Oiler Name Role Phone Matias Bowling MD Primary Care Provider [phone] Encounter Details Date Type Department Care Team (Late st Contact Info) Description 04/29/2024 Lab Requisition [facility] - Main Lab [address] [place] [address] Matias Bowling MD [address] [place] [address] [address] [place], [address] Hyperlipidemia, unspecified; 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 classified elsewhere (CMS/HCC) Social History Tobacco Use Types Packs/Day Years [...] Associated Diagnosis Comments COMPLETE BLOOD COUNT Routine 04/29/2024 6:35 AM EST Hyperlipidemia, unspecified 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 classified elsewhere (CMS/HCC) COMPREHENSIVE METABOLIC PANEL Routine 04/29/2024 6:35 AM EST Hyperlipidemia, unspecified 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 classified elsewhere (CMS/HCC) documented in this encounter Results * (ABNORMAL) Comprehensive metabolic panel (04/29/2024 6:35 AM EST) Sodium 142 133 - 145 mmol/L LAB CHEMISTRY METHOD 04/29/2024 2:49 PM EST [facility] Potassium 4.5 3.5 - 5.5 mmol/L LAB CHEMISTRY METHOD 04/29/2024 2:49 PM [facility] LAB Chloride 111(H) 96 - 110 mmol/L LAB CHEMISTRY METHOD 04/29/2024 2:49 PM [facility] LAB CO2 23 21 - 32 mmol/L LAB CHEMISTRY METHOD 04/29/2024 2:49 PM [facility] LAB Anion Gap 8 3 - 11 LAB CHEMISTRY METHOD 04/29/2024 2:49 PM [facility] LAB Glucose 118(H) 70 - 100 mg/dL LAB CHEMISTRY METHOD 04/29/2024 2:49 PM [facility] LAB BUN 18 5 - 25 mg/dL LAB CHEMISTRY METHOD 04/29/2024 2:49 PM [facility] LAB Creatinine 0.94 0.50 - 1.10 mg/dL LAB CHEMISTRY METHOD 04/29/2024 2:49 PM [facility] LAB eGFR 66 >=60 mL/min/1. 73m2 LAB CHEMISTRY METHOD 04/29/2024 2:49 PM [facility] LAB Comment:Calculation based on the??Chronic Kidney Disease Epidemiology Collaboration (CKD-EPI) equation refit??without adjustment for race. BUN/Creatinine Ratio 19.1 LAB CHEMISTRY METHOD 04/29/2024 2:49 PM [facility] LAB Calcium 9.2 8.5 - 10.5 mg/dL LAB CHEMISTRY METHOD 04/29/2024 2:49 PM [facility] LAB AST (SGOT) 21 10 - 42 unit/L LAB CHEMISTRY METHOD 04/29/2024 2:49 PM [facility] LAB ALT (SGPT) 24 10 - 60 unit/L LAB CHEMISTRY METHOD 04/29/2024 2:49 PM [facility] LAB Alkaline Phosphatase 170(H) 42 - 121 unit/L LAB CHEMISTRY METHOD 04/29/2024 2:49 PM [facility] LAB Total Protein 6.9 6.0 - 8.0 g/dL LAB CHEMISTRY METHOD 04/29/2024 2:49 PM [facility] LAB Albumin 3.2 3.2 - 5.0 g/dL LAB CHEMISTRY METHOD 04/29/2024 2:49 PM [facility] LAB Total Bilirubin 0.3 0.0 - 1.4 mg/dL LAB CHEMISTRY METHOD 04/29/2024 2:49 PM [facility] LAB Blood Venous blood specimen / Unknown Venipuncture / Unknown 04/29/2024 6:35 AM EST 04/29/2024 10:01 AM EST us Matias Bowling MD LAB BLOOD ORDERABLES Final Resul t [facility] [address] [place] [address], [place] [phone] * (ABNORMAL) Complete blood count (04/29/2024 6:35 AM EST) WBC 9.6 4.8 - 10.8 K/mcL LAB HEMETOLOGY METHOD 04/29/2024 11:28 AM [facility] LAB RBC 3.70(L) 3.80 - 4.80 M/mcL LAB HEMETOLOGY METHOD 04/29/2024 11:28 AM [facility] LAB Hemoglobin 9.9(L) 11.5 - 16.0 g/dL LAB HEMETOLOGY METHOD 04/29/2024 11:28 AM [facility] LAB Hematocrit 32.0(L) 35.0 - 47.0 % LAB HEMETOLOGY METHOD 04/29/2024 11:28 AM [facility] LAB MCV 87.0 79.0 - 98.0 FL LAB HEMETOLOGY METHOD 04/29/2024 11:28 AM [facility] LAB MCH 26.9(L) 27.0 - 32.0 pcg LAB HEMETOLOGY METHOD 04/29/2024 11:28 AM EST [facility] LAB MCHC 30.9(L) 32.0 - 37.0 g/dL LAB HEMETOLOGY METHOD 04/29/2024 11:28 AM [facility] LAB RDW 14.6 11.0 - 15.0 % LAB HEMETOLOGY METHOD 04/29/2024 11:28 AM [facility] LAB Platelets 358 130 - 400 K/mcL LAB HEMETOLOGY METHOD 04/29/2024 11:28 AM [facility] LAB MPV 10.0 7.0 - 11.0 FL LAB HEMETOLOGY METHOD 04/29/2024 11:28 AM [facility] LAB NRBC 0.0 <1.0 % LAB HEMETOLOGY METHOD 04/29/2024 11:28 AM [facility] LAB NRBC Absolute 0.00 <0.10 K/mcL LAB HEMETOLOGY METHOD 04/29/2024 11:28 AM [facility] LAB Blood Venous blood specimen / Unknown Venipuncture / Unknown 04/29/2024 6:35 AM EST 04/29/2024 10:01 AM EST us Matias Bowling MD LAB BLOOD ORDERABLES Final Resul t [facility] [address] [place] [address], documented in this encounter Visit Diagnoses Diagnosis Hyperlipidemia, unspecified 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 classified elsewhere (CMS/HCC) documented in this encounter Additional Health Concerns Infection Onset Date Last Indicated Resolved Time Gastrointestinal Rule-Out 04/28/2024 04/27/2024 documented as of this encounter Care Teams Machine Oiler Relationship Specialty Start Date End Date Matias Bowling MD [address] [facility] [address] [place] [address] PCP - General Family Medicine 04/16/24 documented as of this encounter
--- OUTSIDE RECORDS SUMMARY | 2024-04-30 14:43 | XMS_ITS | Encounter Summary ---
Author Organization [employer] Address [address] [facility] 7[address] [place] [address] Care Team Providers Care Unit Aide Tech Name Role Phone ManuelEthel perry Primary Care Provider + [phone] Vaishnavi Laird PharmD Unavailable [phone] Encounter Details Date Type Department Care [...] EST Narrative 04/12/2024 4:43 PM EST ? [facility] ?[address] ?[place] [address] ? CT Scan Report ? Signed ? Patient: Trish Cameron ?MR#: ?? [id number] ? : 1955 ?Acct:[id number] ? Age/Sex: 68 / F ?ADM Date: 04/12/24 ? Loc: HO.ED ? Attending Dr: ? Ordering Physician: Kierra Betts NP ?? Date of Service: 04/12/24 ?? Procedure(s): CT knee LT wo IV con ?? Accession Number(s): [id number] ? cc: Ethel Chase DO; Kierra Betts NP ? Report Number: ?? [id number]: Total DLP = ?0.00 mGy-cm ? CLINICAL HISTORY: femur fx, recent TKA revision ? CT left knee without contrast ? Comparison: CR/CT - XR KNEE LT 4V - 04/12/24 [...] DD/ 1641 ? TD/TT: 04/12/24 1641 ? Tube Buffer: ? Procedure Note Villater, Image - 04/12/[address] [place] [address] [address] Scan Report Signed Patient: Trish Cameron MMR#: [id number] : 1955cct:[id number] Age/Sex: 68 / FADM Date: 04/12/24 Loc: HO.ED Attending Dr: Ordering Physician: Kierra Betts NP Date of Service: 04/12/24 Procedure(s): CT knee LT wo IV con Accession Number(s): [id number] cc: Ethel Chase DO; Kierra Betts NP Report Number: [id number]: Total DLP = 0.00 mGy-cm CLINICAL HISTORY: femur fx, recent TKA revision CT left knee without contrast Comparison: CR/CT - XR KNEE LT 4V - 04/12/24 [...] in OV> 04/12/241642 DD/ 40 TD/TT: 04/12/241640 Tube Buffer: us [facility] External Provider IMG CT PROCEDURES Edited Result - Final * CT Head w/o Contrast (04/12/2024 4:31 PM EST) Anatomical Region Laterality Modality Head, Neck Computed Tomogra phy 04/12/2024 4:31 PM EST Narrative 04/12/2024 4:32 PM EST ? [facility] ?[address] ?[place] [address] ? CT Scan Report ? Signed ? Patient: Trish Cameron ?MR#: ?? [id number] ? : 1955 ?Acct:[id number] ? Age/Sex: 68 / F ?ADM Date: 04/12/24 ? Loc: HO.ED ? Attending Dr: ? Ordering Physician: Kierra Betts NP ?? Date of Service: 04/12/24 ?? Procedure(s): CT head/brain wo IV con ?? Accession Number(s): [id number] ? cc: Ethel Chase DO; Kierra Betts NP ? Report Number: ?? [id number]: Total DLP = 1028.00 mGy-cm ? CLINICAL [...] DD/ 1631 ? TD/TT: 04/12/24 1631 ? Tube Buffer: ? Procedure Note Carito, Image - 04/12/[address] [address] [address] Scan Report Signed Patient: Trish Cameron [facility]#: [id number] : 6Acct:[id number] Age/Sex: 68 / FADM Date: 04/12/24 Loc: HO.ED Attending Dr: Ordering Physician: Kierra Betts NP Date of Service: 04/12/24 Procedure(s): CT head/brain wo IV con Accession Number(s): [id number] cc: Ethel Chase DO; Kierra Betts NP Report Number: [id number]: Total DLP = 1028.00 mGy-cm CLINICAL HISTORY: [...] 04/12/24 1631 DD/ 1631 TD/TT: 04/12/24 1631 Tube Buffer: us [facility] External Provider IMG CT PROCEDURES Edited Result - Final * US VENOUS DUPLEX LE LT (04/12/2024 3:15 PM EST) Anatomical Region Laterality Modality Abdomen Ultrasound 04/12/2024 3:15 PM EST Narrative 04/12/2024 3:17 PM EST ? [facility] [facility] ?[address] ?[place] [address] ? Ultrasound Report ? Signed ? Patient: Dale Oc,Vane ?MR#: ?? [id number] ? : 1955 ?Acct:[id number] ? Age/Sex: 68 / F ?ADM Date: 04/12/24 ? Loc: HO.ED ? Attending Dr: ? Ordering Physician: Kierra Betts NP ?? Date of Service: 04/12/24 ?? Procedure(s): US venous duplex LE LT ?? Accession Number(s): [id number] ? cc: Ethel Chase DO; Kierra Betts [...] ? DD/ 14 ? TD/TT: 04/12/241514 ? Tube Buffer: ? Procedure Note Alek Arzate - 04/12/2024 [place] [address] Ultrasound Report Signed Patient: Trish Cameron [facility]#: [id number] : 1955cct:[id number] Age/Sex: 68 / FADM Date: 04/12/24 Loc: HO.ED Attending Dr: Ordering Physician: Kierra Betts NP Date of Service: 04/12/24 Procedure(s): US venous duplex LE LT Accession Number(s): [id number] cc: Ethel Chase DO; Kierra Betts NP [...] 04/12/24 1517 DD/ 1515 TD/TT: 04/12/24 1515 Tube Buffer: [facility] External Provider IMG US PROCEDURES Edited Result - Final * XR Knee 4+ Views Left (04/12/2024 2:32 PM EST) Anatomical Region Laterality Modality Lower Extremities, Knee Left Radiogra phic Imaging 04/12/2024 2:32 PM EST Narrative 04/12/2024 2:34 PM EST ? [facility] ?[address] ?[place] [address] ?XRay Report ? Signed ? Patient: Trish Cameron ?MR#: ?? [id number] ? : 1955 ?Acct:[id number] ? Age/Sex: 68 / F ?ADM Date: 04/12/24 ? Loc: HO.ED ? Attending Dr: ? Ordering Physician: Kierra Betts NP ?? Date of Service: 04/12/24 ?? Procedure(s): XR knee LT 4V ?? Accession Number(s): [id number] ? cc: Ethel Chase DO; Kierra Betts NP ? CLINICAL HISTORY: fall, hx knee replacement with revision ? 4 view left knee ? Comparison: CR/CT - XR KNEE LT 2V - 03/24/24 [...] ? DD/ ? TD/TT: 04/12/24 1432 ? Tube Buffer: ? Procedure Note Donotuseinterpreter, Image - 04/12/[address] [address] XRay Report Signed Patient: Trish Cameron MMR#: [id number] : 6Acct:[id number] Age/Sex: 68 / FADM Date: 04/12/24 Loc: HO.ED Attending Dr: Ordering Physician: Kierra Betts NP Date of Service: 04/12/24 Procedure(s): XR knee LT 4V Accession Number(s): [id number] cc: Ethel Chase DO; Kierra Betts NP CLINICAL HISTORY: fall, hx knee replacement with revision 4 view left knee Comparison: CR/CT - XR KNEE LT 2V - 03/24/24 [...] 04/12/24 1433 DD/ 1432 TD/TT: 04/12/24 1432 Tube Buffer: [facility] External Provider IMG XR PROCEDURES Edited Result - Final * Blood Culture (Second) (04/12/2024 1:55 PM EST) Blood Venous blood specimen / Unknown 04/12/2024 1:55 PM EST 04/12/2024 2:03 PM EST Comment:Blood Narrative [facility] - 04/17/2024 4:03 PM EST Blood Culture (Second) No growth after 5 days. Specimen Source: Blood Generic External Data Provider LAB MICROBIOLOGY - GENERAL ORDERABLES Final Result [facility] [address] [place] [phone] * Blood Culture (First) (04/12/2024 1:53 PM EST) Blood Venous blood specimen / Unknown 04/12/2024 1:53 PM EST 04/12/2024 2:00 PM EST Comment:Blood Narrative [facility] - 04/17/2024 4:01 PM EST Blood Culture (First) No growth after 5 days. Specimen Source: Blood us Generic External Data Provider LAB MICROBIOLOGY - GENERAL ORDERABLES Final Result Performing Organization Address [facility] Number [facility] [address] [place] [phone] * (ABNORMAL) Sed Rate by Modified [place] (04/12/2024 1:53 PM EST) Erythrocyte Sedimentation Rate 100(H) 0 - 20 MM/HR [facility] Comment:Patients with polycy themia and many hemoglobin abnormalitiesmay have depressed sed rates whereas patients with anemiamay have elevated sed rates. 04/12/2024 1:53 PM EST 04/12/2024 2:00 PM EST us Generic External Data Provider LAB BLOOD ORDERAB LES Final Result Performing Organization Address [facility] Phone Number [facility] [address] [place] [phone] * (ABNORMAL) C-reactive Protein (04/12/2024 1:53 PM EST) C Reactive Protein 11.79(H) < or = 0.50 mg/dL [facility] 04/12/2024 1:53 PM EST 04/12/2024 2:00 PM EST us Generic External Data Provider LAB BLOOD ORDERAB LES Final Result [facility] [address] [place] [address] [phone] * (ABNORMAL) Comprehensive Metabolic Panel (04/12/2024 1:53 PM EST) Sodium 136 135 - 145 mmol/L [facility] Potassium 5.3(H) 3.3 - 5.1 mmol/L [facility] Chloride 101 96 - 108 mmol/L [facility] Carbon Dioxide 25 22 - 29 mmol/L [facility] Anion Gap 15 12 - 20 [facility] Urea Nitrogen (BUN) 18(H) 9 - 16 mg/dL [facility] Creatinine, Serum 1.45(H) 0.5 - 1.4 mg/dL [facility] Creatinine Clr Calc Pharmacy 45.2 [facility] Comment:Provided height and weight: 160.02 cm,114.305 kg.eGFR (calculated from the MDRD study equation) and eCrCl(calculated from the Cockcroft-Gault equation) are based ondifferent parameters and may not yield comparable results.If eCrCl result is absurd, please check patient'sheight/weight. Estimated Glomerular Filt Rate 36 [facility] Comment:Chronic Kidney Disea se: Estimated GFR < 60 mL/min/[id number] Kidney Disease: Estimated GFR < 15 mL/min/1.73m2 Glucose 148(H) 60 - 115 mg/dL [facility] Calcium 10.0 8.4 - 10.2 mg/dL [facility] Bilirubin, Total 0.3 0.0 - 1.0 mg/dL [facility] Aspartate Amino Transferase 45(H) 5 - 31 U/L [facility] Alanine Aminotransferase 29 0 - 31 U/L [facility] Total Protein 8.2(H) 6.5 - 8.0 g/dL [facility] Albumin Level 3.7 3.5 - 5.0 g/dL [facility] Alkaline Phosphatase 202(H) 39 - 117 U/L [facility] 04/12/2024 1:53 PM EST 04/12/2024 2:00 PM EST Generic External Data Provider LAB BLOOD ORDERAB LES Final Result Performing Organization Address [facility] de Phone Number [facility] [address] [place] [phone] * Lactic Acid (04/12/2024 1:53 PM EST) Lactic Acid 2.0 0.5 - 2.0 mmol/L [facility] 04/12/2024 1:53 PM EST 04/12/2024 2:00 PM EST Generic External Data Provider LAB BLOOD ORDERAB LES Final Result Performing Organization Address [facility] Phone Number [facility] [address] [place] [phone] * Partial Thromboplastin Time, Activated (APTT) (04/12/2024 1:53 PM EST) Partial Thromboplastin Time 31.7 26.0 - 36.8 SEC [facility] Comment:For information rega rding the monitoring of direct thrombininhibitors, please refer to Pharmacy. 04/12/2024 1:53 PM EST 04/12/2024 2:00 PM EST Generic External Data Provider LAB BLOOD ORDERAB LES Final Result Performing Organization Address [facility] de Phone Number [facility] [address] [place] [phone] * (ABNORMAL) Prothrombin Time-INR (04/12/2024 1:53 PM EST) Prothrombin Time 12.6(H) 10.9 - 12.4 SEC [facility] INTERNATIONAL NORM RATIO 1.1 0.9 - 1.1 [facility] Comment:INTERNATIONAL NORMAL IZED RATIO (INR) [...] Provider LAB BLOOD ORDERAB LES Final Result [facility] [address], [place] [phone] * (ABNORMAL) CBC auto differential (04/12/2024 1:53 PM EST) White Blood Count 11.3(H) 4.8 - 10.8 X10*3/uL [facility] Red Blood Count 3.33(L) 4.20 - 5.50 X10*6/uL [facility] Hemoglobin 9.1(L) 12.0 - 16.0 g/dl [facility] Hematocrit 28.2(L) 37.0 - 47.0 % [facility] Mean Corpuscular Volume 84.7 80.0 - 98.0 fL [facility] Mean Corpuscular Hemoglobin 27.3 27.0 - 33.0 pg [facility] Mean Corpuscular HGB Conc 32.3 31.0 - 35.0 g/dl [facility] Red Cell Distribution Width 14.0 11.0 - 16.0 % [facility] Platelet Count 411(H) 160 - 400 X10*3/uL [facility] Mean Platelet Volume 9.0(L) 9.4 - 12.3 fL [facility] Neutrophils Percent Auto 72.1 45 - 73 % [facility] Imm Gran Pct Auto 0.6(H) 0.0 - 0.4 % [facility] Lymphocytes Percent Auto 18.6(L) 20 - 40 % [facility] Monocytes Percent Auto 7.1 2 - 11 % [facility] Eosinophils Percent Auto 1.2 0 - 4 % [facility] Basophils Percent Auto 0.4 0 - 2 % [facility] NRBC Pct Auto 0.0 0.0 - 0.2 /100WBC [facility] Neutrophils Absolute Auto 8.2 2.0 - 8.3 x10*3/uL [facility] Imm Gran Abs Auto 0.07(H) 0.00 - 0.03 X10*3/uL [facility] Lymphocytes Absolute Auto 2.1 1.2 - 4.9 X10*3/uL [facility] Monocytes Absolute Auto 0.8 0.1 - 1.2 X10*3/uL [facility] Eosinophils Absolute Auto 0.1 0.0 - 0.4 X10*3/uL [facility] Basophils Absolute Auto 0.1 0.0 - 0.2 X10*3/uL [facility] NRBC Abs Auto 0.000 0.0 - 0.012 X10*3/uL [facility] 04/12/2024 1:53 PM EST 04/12/2024 2:00 PM EST us Generic External Data Provider LAB BLOOD ORDERAB LES Final Result [facility] [address] [place] [phone] documented in this encounter Visit Diagnoses Not on filedocumented in this encounter Additional Health Concerns Assessment Noted Time PHQ-9 Depression Total Score: 8 10/18/19 24 11:35 AM EDT documented as of this encounter Care Teams Unit Aide Tech Relationship Specialty Start Date End Date Ethel Chase DO [address] [place] [address] PCP - General Family Medicine 10/12/13 Vaishnavi Laird PharmD [address] [place] [address] Pharmacist Internal Medicine 02/07/23 documented as of this encounter
--- OUTSIDE RECORDS SUMMARY | 2024-04-30 14:43 | XMS_ITS | Encounter Summary ---
Author Organization [facility] Address [address] [facility] 7t [place] [address] Care Team Providers Care Dry Color Mixer Name Role Phone Ethel Chase DO Primary Care Provider [phone] Vaishnavi Laird PharmD Unavailable [phone] Reason for Visit * Reason Comments Med Refill Encounter Details Date Type Department Care Team ([facility] st Contact Info) Description 03/23/2024 Refill [facility] [address] [place] [address] Ethel Chase DO [address] [place] [address] Other chronic pain Social History Tobacco Use [...] documented as of this encounter Care Teams Dry Color Mixer Relationship Specialty Start Date End Date Ethel Chase DO [address] [place] [address] PCP - General Family Medicine 10/12/13 TwilaiaVaishnavi, PharmD [address] [place] [address] Pharmacist Internal Medicine 02/07/23 documented as of this encounter
--- OUTSIDE RECORDS SUMMARY | 2024-04-30 14:43 | XMS_ITS | Encounter Summary ---
Author Organization [employer] Address [address] [place] [address] [address] [place] [address] Care Team Providers Care Radiologic Technician Name Role Phone Ethel Chase DO Primary Care Provider [phone] Vaishnavi Laird PharmD Unavailable [phone] Reason for Visit * Reason Comments Med Refill Encounter Details Date Type Department Care Team (Late st Contact Info) Description 08/10/2022 Refill [facility] [address] [place] [address] [facility] [address] [place] [address] Social History Tobacco Use Types Packs/Day Years [...] documented as of this encounter Care Teams Radiologic Technician Relationship Specialty Start Date End Date Ethel Chase DO [address] [place] [address] PCP - General Family Medicine 10/12/13 Vaishnavi Laird, Zana [address] [place] [address] Pharmacist Internal Medicine 02/07/23 documented as of this encounter
--- OUTSIDE RECORDS SUMMARY | 2024-04-30 14:43 | XMS_ITS | Encounter Summary ---
Author Organization [employer] Address [address] [facility] 7t [place] [address] Care Team Providers Care Engineering Intern Name Role Phone ManuelEthel perry Primary Care Provider + [phone] Vaishnavi Laird PharmD Unavailable [phone] Encounter Details Date Type Department Care [...] DETECTION BY PCR NOT DETECTED Not Detect [facility] BACTERIAL VAGINOSIS DETECTION BY PCR NEGATIVE Negative [facility] Comment:The BV organism targ ets [...] GROUP DETECTION BY PCR DETECTED(A) Not Detect [facility] Kayy glab krusei PCR NOT DETECTED Not Detect [facility] 04/07/2024 10:2 2 AM EST 04/07/2024 3:47 PM EST us Generic External Data Provider LAB MICROBIOLOGY - GENERAL ORDERABLES Final Result [facility] [address] [place] [phone] documented in this encounter Visit Diagnoses Not on filedocumented in this encounter Additional Health Concerns Assessment Noted Time PHQ-9 Depression Total Score: 8 10/18/19 24 11:35 AM EDT documented as of this encounter Care Teams Engineering Intern Relationship Specialty Start Date End Date Ethel Chase DO [address] [place] [address] PCP - General Family Medicine 10/12/13 Vaishnavi Laird PharmD [address] [place] [address] Pharmacist Internal Medicine 02/07/23 documented as of this encounter
--- OUTSIDE RECORDS SUMMARY | 2024-04-30 14:43 | XMS_ITS | Clinical Summary ---
Author Organization [employer] Address [address] [place] [address] Care Team Providers Care Daily Release And Dupe Printer Name Role Phone Ethel Chase Primary Care Provider Vaishnavi Laird PharmD Unavailable [phone] Allergies Active Allergy Reactions Criticality Noted [...] FOR ANXEITY 023 Active Continuous Blood Gluc Housekeeper/Custodian/Laundry Worker (FreeStyle Gerard 2 Slayton) deviceIndications:P oorly controlled diabetes mellitus ([facility]) Use to scan sensor at least every 8 hours, as directed, for CGM 1 each 023 Active Alcohol Swabs (Alcohol Pads) 70 % padsIndications:Poo rly controlled diabetes mellitus ([facility]) Use as directed daily prior to insulin [...] IN THE EVENING WITH MEALS 60 tablet 11 024 Active glucose blood (FreeStyle Precision Angel Test) test stripIndications:Po mabel controlled diabetes mellitus ([facility]) USE DIRECTED TO TEST BLOOD SUGAR UP TO TWICE DAILY DIRECTED 50 strip 5 024 Active levothyroxine (Synthroid, Levoxyl) 112 MCG tablet TAKE 1 TABLET BY MOUTH EVERY MORNING BEFORE BREAKFAST 90 tablet 3 024 Active fluticasone-salmete rol (Advair) 115-21 MCG/ACT [...] bedtime for dizziness. 30 tablet 3 024 08/23/ 2025 Active OneTouch Delica Lancets 33G miscIndications:Typ e 2 diabetes mellitus without complication, without long-term current use of insulin ([facility]) USE TO TEST BLOOD SUGAR [...] complication, without long-term current use of insulin ([facility]) Administer 3 mg via 1 device into the nostril for hypoglycemia with loss of consciousness. If no response after 15 minutes administer an additional dose via 2nd device into other nostril. 2 each Active Semaglutide, 2 MG/DOSE, (Ozempic, 2 MG/DOSE,) 8 MG/3ML solution pen-injectorIndicat ions:Type 2 diabetes mellitus without complication, without long-term current use of insulin ([facility]) Inject 2 mg under the skin 1 (one) time per week. 3 mL Active glucose 4 g chewable tablet Chew 4 tablets (16 g) if needed for low blood sugar (BG < 70 mg/dL). 20 tablet 5 024 2024 Active Continuous Glucose Sensor (FreeStyle Gerard 2 Sensor) miscIndications:Poo rly controlled diabetes mellitus ([facility]) USE DIRECTED CHANGE EVERY 14 DAYS 2 [...] 3 Active docusate sodium (Colace) 100 MG capsuleIndications: [...] complication, without long-term current use of insulin ([facility]) Use to inject insulin 1 times daily 100 each 3 Active insulin degludec (Tresiba FlexTouch) 100 UNIT/ML injectionIndication s:Type 2 diabetes mellitus without complication, without long-term current use of insulin ([facility]) Inject 32 units subQ once [...] specified complication, unspecified whether oysterman insulin use ([facility]) TAKE 1 TABLET BY MOUTH EVERY EVENING 90 tablet 1 025 Active pantoprazole (ProtoNix) 40 MG EC tabletIndications:C hronic gastroesophageal reflux disease TAKE 1 TABLET BY MOUTH EVERY MORNING 90 tablet 1 025 Active gabapentin (Neurontin) 600 MG tablet TAKE 1 TABLET BY MOUTH TWICE DAILY IN THE MORNING AND AT BEDTIME 60 tablet 5 025 Active gabapentin (Neurontin) 600 MG tablet TAKE 1 TABLET BY MOUTH TWICE DAILY IN THE MORNING AND AT BEDTIME 60 tablet 5 024 2024 Discontinued pantoprazole (ProtoNix) 40 MG EC tabletIndications:C hronic gastroesophageal reflux disease TAKE 1 TABLET BY MOUTH EVERY MORNING 90 tablet 1 024 2024 Discontinued aspirin (Aspirin Low Dose) 81 MG EC tabletIndications:T ype 2 diabetes mellitus with other specified complication, unspecified whether oysterman insulin use ([facility]) TAKE 1 TABLET BY MOUTH [...] Encounters Date Type Department Care Team Description 04/28/2024 Refill [facility] [address] [place] [address] Ethel Chase DO 04/16/2024 Refill [facility] [address] [place] [address] Ethel Chase DO 04/15/2024 Orders Only GENERIC EXTERNAL DATA DEPARTMENT Provider, Generic External Data 04/14/2024 Orders Only GENERIC EXTERNAL DATA DEPARTMENT Provider, Generic External Data 04/12/2024 Orders Only GENERIC EXTERNAL DATA DEPARTMENT Provider, Generic External Data 04/07/2024 Orders Only GENERIC EXTERNAL DATA DEPARTMENT Provider, Generic External Data 04/07/2024 Refill [facility] [address] [place] [address] Ethel Chase, Type 2 diabetes mellitus with other specified complication, unspecified whether oysterman insulin use ([facility]); Chronic gastroesophageal reflux disease 04/06/2024 Refill [facility] [address] [place] [address] Ethel Chase, Other chronic pain 03/26/2024 Orders Only GENERIC EXTERNAL DATA DEPARTMENT Provider, Generic External Data 03/25/2024 Orders Only GENERIC EXTERNAL DATA DEPARTMENT Provider, Generic External Data 03/24/2024 Orders Only GENERIC EXTERNAL DATA DEPARTMENT Provider, Generic External Data 03/23/2024 Refill [facility] [address] [place] [address] Ethel Chase, Other chronic pain 03/23/2024 Telephone [facility] [address] [place] [address] Ethel Chase, Pre-Op 03/23/2024 Refill [facility] [address] [place] [address] Ethel Chase, Other chronic pain 03/10/2024 Refill [facility] [address] [place] [address] Ethel Chase, Other chronic pain 03/02/2024 Telephone [facility] [address] [place] [address] Ethel Chase, Appointment Request 02/24/2024 Telephone [facility] [address] [place] [address] Susan Guillaume, RN CGM PA for sensors 02/14/2024 Telephone [facility] [address] [place] [address] Ethel Chase, No Show 02/10/2024 Refill [facility] [address] [place] [address] Ethel Chase DO Other chronic pain 02/05/2024 Refill [facility] [address] [place] [address] Ethel Chase DO Constipation, unspecified constipation type; Osteopenia, unspecified location from Last 3 Months Immunizations Name Administration [...] Whole Blood 136(H) 60 - 115 mg/dL [facility] Comment:METER #: [id number] 04/15/2024 11:4 4 AM EST 04/15/2024 11:48 AM EST us Generic External Data Provider LAB BLOOD ORDERAB LES Final Result [facility] [address] [place] [address] [phone] * (ABNORMAL) Basic Metabolic Panel (04/15/2024 9:44 AM EST) Pathologist [facility] Sodium 138 135 - 145 mmol/L [facility] Potassium 4.3 3.3 - 5.1 mmol/L [facility] Chloride 102 96 - 108 mmol/L [facility] Carbon Dioxide 24 22 - 29 mmol/L [facility] Anion Gap 16 12 - 20 [facility] Urea Nitrogen (BUN) 15 9 - 16 mg/dL [facility] Creatinine, Serum 1.10 0.5 - 1.4 mg/dL [facility] Creatinine Clr Calc Pharmacy 59.6 [facility] Comment:Provided height and weight: 160.02 cm,114.305 kg.eGFR (calculated from the MDRD study equation) and eCrCl(calculated from the Cockcroft-Gault equation) are based ondifferent parameters and may not yield comparable results.If eCrCl result is absurd, please check patient'sheight/weight. Estimated Glomerular Filt Rate 49 [facility] Comment:Chronic Kidney Disea se: Estimated GFR < 60 mL/min/1.92o0Pdlotz Kidney Disease: Estimated GFR < 15 mL/min/1.73m2 Glucose 154(H) 60 - 115 mg/dL [facility] Calcium 9.0 8.4 - 10.2 mg/dL [facility] 04/15/2024 9:44 AM EST 04/15/2024 9:54 AM EST us Generic External Data Provider LAB BLOOD ORDERAB LES Final Result Performing Organization Address [facility] de Phone Number [facility] [address] [place] [phone] * SARS-CoV-2 RNA, Influenza A/B, and RSV RNA, Ql NAAT (04/14/2024 10:44 AM EST) Influenza A PCR NEGATIVE Negative [facility] Influenza B PCR NEGATIVE Negative [facility] Resp Syncy Virus RNA Qual PCR NEGATIVE Negative [facility] SARS COV2 PCR NEGATIVE Negative [facility] Comment:All test results mus t [...] use by authorized laboratories.Testing performed on the [employer] GeneXpert utilizingreal-time RT-PCR.All SARS CoV2 and positive influenza A/B results arereported to [facility]. 04/14/2024 10:4 4 AM EST 04/14/2024 10:54 AM EST us Generic External Data Provider LAB MICROBIOLOGY - GENERAL ORDERABLES Final Result Performing Organization Address [facility] de Phone Number [facility] [address] [place] [address] [phone] * CT Kne w/o Contrast Left (04/12/2024 4:41 PM EST) Anatomical Region Laterality Modality Lower Extremities, Knee Left Computed Tomography 04/12/2024 4:41 PM EST Narrative 04/12/2024 4:43 PM EST ? [place] [facility] ?[address] ?[place] [address] ? CT Scan Report ? Signed ? Patient: Dale Oc,Vane ?MR#: ?? [id number] ? : 1955 ?Acct:[id number] ? Age/Sex: 68 / F ?ADM Date: 04/12/24 ? Loc: HO.ED ? Attending Dr: ? Ordering Physician: Kierra Betts NP ?? Date of Service: 04/12/24 ?? Procedure(s): CT knee LT wo IV con ?? Accession Number(s): [id number] ? cc: Ethel Chase DO; Kierra Betts NP ? Report Number: ?? [id number]: Total DLP = ?0.00 mGy-cm ? CLINICAL HISTORY: femur fx, recent TKA revision ? CT left knee without contrast ? Comparison: CR/LA - XR KNEE LT 4V - 04/12/24 [...] DD/ 1641 ? TD/TT: 04/12/24 1641 ? Buffing Machine Operator Semiautomatic: ? Procedure Note Alek Arzate - 04/12/[address] [address] [address] Scan Report Signed Patient: Dale OcNicolez [facility]#: [id number] : 6Acct:[id number] Age/Sex: 68 / FADM Date: 04/12/24 Loc: HO.ED Attending Dr: Ordering Physician: Kierra Betts NP Date of Service: 04/12/24 Procedure(s): CT knee LT wo IV con Accession Number(s): [id number] cc: Ethel Chase DO; Kierra Betts CERTIFIED NURSE PRACTITIONER Report Number: [id number]: Total DLP = 0.00 mGy-cm CLINICAL HISTORY: femur fx, recent TKA revision CT left knee without contrast Comparison: CR/LA - XR KNEE LT 4V - 04/12/24 [...] by David Gonzalez MD in OV> 04/12/24 1643 DD/ 1641 TD/TT: 04/12/24 1641 Buffing Machine Operator Semiautomatic: [facility] External Provider IMG CT PROCEDURES Edited Result - Final * CT Head w/o Contrast (04/12/2024 4:31 PM EST) Anatomical Region Laterality Modality Head, Neck Computed Tomogra phy 04/12/2024 4:31 PM EST Narrative 04/12/2024 4:32 PM EST ? [facility] ?[address] ?[place] [address] ? CT Scan Report ? Signed ? Patient: Dale Oc,Vane ?MR#: ?? [id number] ? : 1955 ?Acct:[id number] ? Age/Sex: 68 / F ?ADM Date: 02/16/25 ? Loc: HO.ED ? Attending Dr: ? Ordering Physician: Kierra Betts NP ?? Date of Service: 04/12/24 ?? Procedure(s): CT head/brain wo IV con ?? Accession Number(s): [id number] ? cc: Ethel Chase DO; Kierra Betts NP ? Report Number: ?? [id number]: Total DLP = 1028.00 mGy-cm ? CLINICAL [...] DD/ 1631 ? TD/TT: 04/12/24 1631 ? Buffing Machine Operator Semiautomatic: ? Procedure Note Alek Arzate - 04/12/[address] [place] [address] [address] Scan Report Signed Patient: Trish Cameron MMR#: [id number] : 6Acct:[id number] Age/Sex: 68 / FADM Date: 04/12/24 Loc: HO.ED Attending Dr: Ordering Physician: Kierra Betts NP Date of Service: 04/12/24 Procedure(s): CT head/brain wo IV con Accession Number(s): [id number] cc: Ethel Chase DO; Kierra Betts NP Report Number: [id number]: Total DLP = 1028.00 mGy-cm CLINICAL HISTORY: [...] 04/12/24 1631 DD/ 1631 TD/TT: 04/12/24 1631 Buffing Machine Operator Semiautomatic: [facility] External Provider IMG CT PROCEDURES Edited Result - Final * US VENOUS DUPLEX LE LT (04/12/2024 3:15 PM EST) Anatomical Region Laterality Modality Abdomen Ultrasound 04/12/2024 3:15 PM EST Narrative 04/12/2024 3:17 PM EST ? [facility] ?[address] ?[place] [address] ? Ultrasound Report ? Signed ? Patient: Trish Cameron ?MR#: ?? [id number] ? : 1955 ?Acct:[id number] ? Age/Sex: 68 / F ?ADM Date: 04/12/24 ? Loc: HO.ED ? Attending Dr: ? Ordering Physician: Kierra Betts NP ?? Date of Service: 04/12/24 ?? Procedure(s): US venous duplex LE LT ?? Accession Number(s): [id number] ? cc: Ethel Chase DO; Kierra Betts CERTIFIED NURSE PRACTITIONER ? CLINICAL HISTORY: warmth, erythema, swelling, recent [...] by David Gonzalez MD in OV> ? 04/12/241516 ? DD/ 14 ? TD/TT: 04/12/24 1515 ? Buffing Machine Operator Semiautomatic: ? Procedure Note Donterezasaurabhter, Image - 04/12/[address] [address] Ultrasound Report Signed Patient: Trish Cameron MMR#: [id number] : 6Acct:[id number] Age/Sex: 68 / FADM Date: 04/12/24 Loc: HO.ED Attending Dr: Ordering Physician: Kierra Betts NP Date of Service: 04/12/24 Procedure(s): US venous duplex LE LT Accession Number(s): [id number] cc: Ethel Chase DO; Kierra Betts NP [...] signed by David Gonzalez MD in OV> 04/12/247 DD/ 1515 TD/TT: 04/12/24 151 Buffing Machine Operator Semiautomatic: us [facility] External Provider IMG US PROCEDURES Edited Result - Final * XR Knee 4+ Views Left (04/12/2024 2:32 PM EST) Anatomical Region Laterality Modality Lower Extremities, Knee Left Radiogra phic Imaging 04/12/2024 2:32 PM EST Narrative 04/12/2024 2:34 PM EST ? [facility] ?[address] ?[place] [address] ?XRay Report ? Signed ? Patient: Dale Oc,Vane ?MR#: ?? [id number] ? : 1955 ?Acct:[id number] ? Age/Sex: 68 / F ?ADM Date: 04/12/24 ? Loc: HO.ED ? Attending Dr: ? Ordering Physician: Kierra Betst NP ?? Date of Service: 04/12/24 ?? Procedure(s): XR knee LT 4V ?? Accession Number(s): [id number] ? cc: Ethel Chase DO; Kierra Betts NP ? CLINICAL HISTORY: fall, hx knee replacement with revision ? 4 view left knee ? Comparison: CR/LA - XR KNEE LT 2V - 03/24/24 [...] in OV> ? 04/12/24 1433 ? DD/ 1432 ? TD/TT: 04/12/24 1432 ? Buffing Machine Operator Semiautomatic: ? Procedure Note Carito, Image - 04/12/2024 [place] [address] XRay Report Signed Patient: Trish Cameron MMR#: [id number] : 6Acct:[id number] Age/Sex: 68 / FADM Date: 04/12/24 Loc: HO.ED Attending Dr: Ordering Physician: Kierra Betts NP Date of Service: 04/12/24 Procedure(s): XR knee LT 4V Accession Number(s): [id number] cc: Ethel Chase DO; Kierra Betts NP CLINICAL HISTORY: fall, hx knee replacement with revision 4 view left knee Comparison: CR/LA - XR KNEE LT 2V - 03/24/24 [...] 04/12/24 1433 DD/ 1432 TD/TT: 04/12/24 1432 Buffing Machine Operator Semiautomatic: [facility] External Provider IMG XR PROCEDURES Edited Result - Final * Blood Culture (Second) (04/12/2024 1:55 PM EST) Blood Venous blood specimen / Unknown 04/12/2024 1:55 PM EST 04/12/2024 2:03 PM EST Comment:Blood Narrative [facility] - 04/17/2024 4:03 PM EST Blood Culture (Second) No growth after 5 days. Specimen Source: Blood Generic External Data Provider LAB MICROBIOLOGY - GENERAL ORDERABLES Final Result Performing Organization Address [facility]/ZIP Co de Phone Number [facility] [address] [place] [phone] * Blood Culture (First) (04/12/2024 1:53 PM EST) Blood Venous blood specimen / Unknown 04/12/2024 1:53 PM EST 04/12/2024 2:00 PM EST Comment:Blood [facility] - 04/17/2024 4:01 PM EST Blood Culture (First) No growth after 5 days. Specimen Source: Blood Generic External Data Provider LAB MICROBIOLOGY - GENERAL ORDERABLES Final Result Performing Organization Address [facility]/ZIP Co de Phone Number [facility] [address] [place] [phone] * (ABNORMAL) CBC auto differential (04/12/2024 1:53 PM EST) Only the most recent of3 resultswithin the time period is included. White Blood Count 11.3(H) 4.8 - 10.8 X10*3/uL [facility] Red Blood Count 3.33(L) 4.20 - 5.50 X10*6/uL [facility] Hemoglobin 9.1(L) 12.0 - 16.0 g/dl [facility] Hematocrit 28.2(L) 37.0 - 47.0 % [facility] Mean Corpuscular Volume 84.7 80.0 - 98.0 fL [facility] Mean Corpuscular Hemoglobin 27.3 27.0 - 33.0 pg [facility] Mean Corpuscular HGB Conc 32.3 31.0 - 35.0 g/dl [facility] Red Cell Distribution Width 14.0 11.0 - 16.0 % [facility] Platelet Count 411(H) 160 - 400 X10*3/uL [facility] Mean Platelet Volume 9.0(L) 9.4 - 12.3 fL [facility] Neutrophils Percent Auto 72.1 45 - 73 % [facility] Imm Gran Pct Auto 0.6(H) 0.0 - 0.4 % [facility] Lymphocytes Percent Auto 18.6(L) 20 - 40 % [facility] Monocytes Percent Auto 7.1 2 - 11 % [facility] Eosinophils Percent Auto 1.2 0 - 4 % [facility] Basophils Percent Auto 0.4 0 - 2 % [facility] NRBC Pct Auto 0.0 0.0 - 0.2 /100WBC [facility] Neutrophils Absolute Auto 8.2 2.0 - 8.3 x10*3/uL [facility] Imm Gran Abs Auto 0.07(H) 0.00 - 0.03 X10*3/uL [facility] Lymphocytes Absolute Auto 2.1 1.2 - 4.9 X10*3/uL [facility] Monocytes Absolute Auto 0.8 0.1 - 1.2 X10*3/uL [facility] Eosinophils Absolute Auto 0.1 0.0 - 0.4 X10*3/uL [facility] Basophils Absolute Auto 0.1 0.0 - 0.2 X10*3/uL [facility] NRBC Abs Auto 0.000 0.0 - 0.012 X10*3/uL [facility] 04/12/2024 1:53 PM EST 04/12/2024 2:00 PM EST Generic External Data Provider LAB BLOOD ORDERAB LES Final Result Performing Organization Address [facility]/ZIP Co de Phone Number [facility] [address] [place] [phone] * Partial Thromboplastin Time, Activated (APTT) (04/12/2024 1:53 PM EST) Partial Thromboplastin Time 31.7 26.0 - 36.8 SEC [facility] Comment:For information rega rding the monitoring of direct thrombininhibitors, please refer to Pharmacy. 04/12/2024 1:53 PM EST 04/12/2024 2:00 PM EST Generic External Data Provider LAB BLOOD ORDERAB LES Final Result Performing Organization Address [facility] Co de Phone Number [facility] [address] [place] [phone] * (ABNORMAL) Sed Rate by Modified Sarahren (04/12/2024 1:53 PM EST) Erythrocyte Sedimentation Rate 100(H) 0 - 20 MM/HR [facility] Comment:Patients with polycy themia and many hemoglobin abnormalitiesmay have depressed sed rates whereas patients with anemiamay have elevated sed rates. 04/12/2024 1:53 PM EST 04/12/2024 2:00 PM EST Generic External Data Provider LAB BLOOD ORDERAB LES Final Result Performing Organization Address [facility]/ZIP Co de Phone Number [facility] [address] [place] [phone] [phone] * (ABNORMAL) Prothrombin Time-INR (04/12/2024 1:53 PM EST) Prothrombin Time 12.6(H) 10.9 - 12.4 SEC [facility] INTERNATIONAL NORM RATIO 1.1 0.9 - 1.1 [facility] Comment:INTERNATIONAL NORMAL IZED RATIO (INR) [...] ORDERAB LES Final Result Performing Organization Address [facility]/ZIP Co de Phone Number [facility] [address] [place] [phone] * (ABNORMAL) C-reactive Protein (04/12/2024 1:53 PM EST) C Reactive Protein 11.79(H) < or = 0.50 mg/dL [facility] 04/12/2024 1:53 PM EST 04/12/2024 2:00 PM EST us Generic External Data Provider LAB BLOOD ORDERAB LES Final Result Performing Organization Address [facility]/ZIP Co de Phone Number [facility] [address] [place] [phone] * Lactic Acid (04/12/2024 1:53 PM EST) Lactic Acid 2.0 0.5 - 2.0 mmol/L [facility] 04/12/2024 1:53 PM EST 04/12/2024 2:00 PM EST us Generic External Data Provider LAB BLOOD ORDERAB LES Final Result [facility] [address] [place] [phone] * (ABNORMAL) Comprehensive Metabolic Panel (04/12/2024 1:53 PM EST) Sodium 136 135 - 145 mmol/L [facility] Potassium 5.3(H) 3.3 - 5.1 mmol/L [facility] Chloride 101 96 - 108 mmol/L [facility] Carbon Dioxide 25 22 - 29 mmol/L [facility] Anion Gap 15 12 - 20 [facility] Urea Nitrogen (BUN) 18(H) 9 - 16 mg/dL [facility] Creatinine, Serum 1.45(H) 0.5 - 1.4 mg/dL [facility] Creatinine Clr Calc Pharmacy 45.2 [facility] Comment:Provided height and weight: 160.02 cm,114.305 kg.eGFR (calculated from the MDRD study equation) and eCrCl(calculated from the Cockcroft-Gault equation) are based ondifferent parameters and may not yield comparable results.If eCrCl result is absurd, please check patient'sheight/weight. Estimated Glomerular Filt Rate 36 [facility] Comment:Chronic Kidney Disea se: Estimated GFR < 60 mL/min/1.54p2Zylloi Kidney Disease: Estimated GFR < 15 mL/min/1.73m2 Glucose 148(H) 60 - 115 mg/dL [facility] Calcium 10.0 8.4 - 10.2 mg/dL [facility] Bilirubin, Total 0.3 0.0 - 1.0 mg/dL [facility] Aspartate Amino Transferase 45(H) 5 - 31 U/L [facility] Alanine Aminotransferase 29 0 - 31 U/L [facility] Total Protein 8.2(H) 6.5 - 8.0 g/dL [facility] Albumin Level 3.7 3.5 - 5.0 g/dL [facility] Alkaline Phosphatase 202(H) 39 - 117 U/L [facility] 04/12/2024 1:53 PM EST 04/12/2024 2:00 PM EST Generic External Data Provider LAB BLOOD ORDERAB LES Final Result Performing Organization Address [facility] de Phone Number [facility] [address] [place] [phone] * (ABNORMAL) Bacterial Vaginosis (04/07/2024 10:22 AM EST) TRICHOMONAS VAGINALIS DETECTION BY PCR NOT DETECTED Not Detect [facility] BACTERIAL VAGINOSIS DETECTION BY PCR NEGATIVE Negative [facility] Comment:The BV organism targ ets [...] GROUP DETECTION BY PCR DETECTED(A) Not Detect [facility] Kayy glab krusei PCR NOT DETECTED Not Detect [facility] 04/07/2024 10:2 2 AM EST 04/07/2024 3:47 PM EST Generic External Data Provider LAB MICROBIOLOGY - GENERAL ORDERABLES Final Result Performing Organization Address [facility] de Phone Number [facility] [address] [place] [phone] * (ABNORMAL) Basic Metabolic Panel, Fasting (03/26/2024 5:51 AM EST) Only the most recent of2 resultswithin the time period is included. Sodium 133(L) 135 - 145 mmol/L [facility] Potassium 4.1 3.3 - 5.1 mmol/L [facility] Chloride 101 96 - 108 mmol/L [facility] Carbon Dioxide 24 22 - 29 mmol/L [facility] Anion Gap 12 12 - 20 [facility] Urea Nitrogen (BUN) 15 9 - 16 mg/dL [facility] Creatinine, Serum 0.85 0.5 - 1.4 mg/dL [facility] Creatinine Clr Calc Pharmacy 75.9 [facility] Comment:Provided height and weight: 157.48 cm,114.8 kg.eGFR (calculated from the MDRD study equation) and eCrCl(calculated from the Cockcroft-Gault equation) are based ondifferent parameters and may not yield comparable results.If eCrCl result is absurd, please check patient'sheight/weight. Estimated Glomerular Filt Rate >60 [facility] Comment:Chronic Kidney Disea se: Estimated GFR < 60 mL/min/1.56p9Jlpenf Kidney Disease: Estimated GFR < 15 mL/min/1.73m2 Glucose Fasting 192(H) 60 - 99 mg/dL [facility] Comment:A fasting glucose of 126 mg/dl or greater on more than oneoccasion is considered diagnostic of diabetes. Calcium 8.8 8.4 - 10.2 mg/dL [facility] 03/26/2024 5:51 AM EST 03/26/2024 6:30 AM EST us Generic External Data Provider LAB BLOOD ORDERAB LES Final Result [facility] [address] [place] [address] [phone] * XR Knee 1-2 Views Left (03/24/2024 6:30 PM EST) Anatomical Region Laterality Modality Lower Extremities, Knee Left Radiogra phic Imaging 03/24/2024 6:30 PM EST Narrative 03/24/2024 6:32 PM EST ? [facility] ?[address] ?[place] [address] ?XRay Report ? Signed ? Patient: Dale Oc,Vane ?MR#: ?? [id number] ? : 1955 ?Acct:[id number] ? Age/Sex: 68 / F ?ADM Date: 03/24/24 ? Loc: HO.S3 ?375-1 ? Attending Dr: Khushi Mathias PA-C ? Ordering Physician: Khushi Mathias PA-C ?? Date of Service: 03/24/24 ?? Procedure(s): XR knee LT 2V ?? Accession Number(s): [id number] ? cc: Ethel Chase DO; Khushi Mathias [...] DD/ 1830 ? TD/TT: 03/24/24 1830 ? Buffing Machine Operator Semiautomatic: ? Procedure Note Carito, Image - 03/24/[address] [address] XRay Report Signed Patient: Trish Cameron MMR#: [id number] : 6Acct:[id number] Age/Sex: 68 / FADM Date: 03/24/24 Loc: HO.S3 375-[address]: Khushi Mathias PA-C Ordering Physician: Khushi Mathias PA-C Date of Service: 03/24/24 Procedure(s): XR knee LT 2V Accession Number(s): [id number] cc: Ethel Chase DO; Khushi Mathias PA-C [...] Retana MD in OV> 03/24/24 1831 DD/ 1830 TD/TT: 03/24/24 1830 Buffing Machine Operator Semiautomatic: [facility] External Provider IMG XR PROCEDURES Final Result * Hemoglobin and Hematocrit (03/24/2024 10:53 AM EST) Hemoglobin 12.6 12.0 - 16.0 g/dl [facility] Hematocrit 38.6 37.0 - 47.0 % [facility] 03/24/2024 10:5 3 AM EST 03/24/2024 11:05 AM EST Generic External Data Provider LAB BLOOD ORDERAB LES Final Result [facility] [address] [place] [phone] * (ABNORMAL) POCT glycosylated hemoglobin (Hgb A1c) (01/29/2024 10:35 AM EST) Hemoglobin A1C 7.1(A) 4.0 - 6.0 % QC Media Lot # [id number] Lot# Expiration Date Blood Capillary blood specimen / Unknown 01/29/2024 10:35 AM EST Ethel Chase DO POINT OF CARE TEST ENTER/MARGARITA T ORDERABLES Final Result * Lipid Panel, Standard (11/11/2023 9:05 AM EDT) Triglycerides 128 <150 mg/dL [facility] Comment:Desirable Triglyceri de: less than 150 mg/dLBorderline High Triglyceride 150-199 mg/dLHigh Triglyceride: 200-499 mg/dLVery High Triglyceride: greater than or equal to 5OO mg/dL Cholesterol 108 <200 mg/dL [facility] Comment:Desirable Cholestero l: less than 200 mg/dLBorderline High Cholesterol: 200-239 mg/dLHigh Cholesterol: greater than 239 mg/dL LDL Cholesterol Calculated 42 <100 mg/dL [facility] Comment:Desirable LDL: less than 100 mg/dLNear Optimal/Above Optimal LDL: 110- 129 mg/dLBorderline High LDL: 130-159 mg/dLHigh LDL: 160-189 mg/dLVery High LDL: greater than or equal to 190 mg/dL HDL Cholesterol 41 >40 mg/dL [facility] Comment:Desirable HDL: great er than 40 mg/dL Note: This HDL assay may give artificially low results in patients with liver disease. Blood Venous blood specimen / Unknown 11/11/2023 9:05 AM EDT 11/11/2023 11:33 AM EDT Ethel Chase DO LAB BLOOD ORDERABLES Final R esult [facility] [address] [place] [phone] * BI Mammogram Screening Tomosynthesis Bilateral (08/06/2023 11:15 AM EDT) Anatomical Region Laterality Modality Breast Bilateral Mammography 08/06/2023 11:1 5 AM EDT Narrative 09/05/2023 9:40 AM EDT ? [facility] ? [address] ?[place] [address] ? Mammography Report ? Signed ? Patient: Trish Cameron ?MR#: ?? [id number] ? : 1955 ?Acct:[id number] ? Age/Sex: 67 / F ?ADM Date: 08/06/23 ? Loc: HO.MAMMO ? Attending : Ethel Chase DO ? Ordering Physician: Ethel Chase DO ?Results: 1N ?? egative ? Date of Service: 08/06/23 ?Follow Up: 1 Year From Orig ?? inal Mammogram ? Procedure(s): MM tomosynthesis screening BI ?? Accession Number(s): [id number] ? cc: Ethel Chase DO ? EXAMINATION: [...] by Florecita Spring MD in OV> ? 09/05/23935 ? DD/ 1115 ? TD/TT: ? Buffing Machine Operator Semiautomatic: ? Procedure Note Alek Arzate - 09/05/2023 [facility] [address] [place] [address] Mammography Report Signed Patient: Trish Cameron [facility]#: [id number] : 6Acct:[id number] Age/Sex: 67 / FADM Date: 08/06/23 Loc: HO.MAMMO Attending Dr: Ethel Chase DO Ordering Physician: Ethel Chaseults: 1N egative Date of Service: 08/06/23Follow Up: 1 Year From Orig inal Mammogram Procedure(s): MM tomosynthesis screening BI Accession Number(s): [id number] cc: Ethel Chase DO EXAMINATION: MM SCREENING [...] in OV> 09/05/23 0936 DD/ 1115 TD/TT: Buffing Machine Operator Semiautomatic: Ehtel Chase DO IMG BI PROCEDURES Final Resu lt * Albumin, Random Urine W/Creatinine (03/13/2023 9:38 AM EST) Creatinine, Urine 131.57 mg/dL [facility] Microalbumin Urine 6.0 mg/L [facility] Microalbum Creatinine Ratio Ur 4.5 <30 ug/mg cr [facility] Comment:Albumin/Creatinine R atio Reference Ranges: Normal: < 30 ug/mg creatinine Microalbuminuria: 30 - 300 ug/mg creatinineClinical Albuminuria: > 300 ug/mg creatinine 03/13/2023 9:38 AM EST 03/13/2023 11:25 AM EST Ethel Chase DO LAB URINE ORDERABLES Final R esult [facility] [address] [place] [phone] * HEPATITIS C ANTIBODY RFLX (10/31/2019 9:40 AM EDT) HEPATITIS C ANTIBODY NONREACTIVE NONREACTIVE [facility] Comment: Antibodies to HCV not detected; does not exclude early acute HCV infection. 10/31/2019 9:40 AM EDT Ethel Chase DO HISTORICAL/NON ORDERABLE LAB S Final Result [facility] [address] * Colonoscopy (03/03/2019) Colonoscopy follow up in 5 years Historical Provider HEALTH MAINTENANCE Edited Result - Final from Last 3 Months or Most Recently Relevant to Health Maintenance Insurance [facility] Care Teams Daily Release And Dupe Printer Relationship Specialty Start Date End Date Ethel Chase DO [address] [place] [address] PCP - General Family Medicine 10/12/13 Vaishnavi Laird PharmD [address] [place] [address] Pharmacist Internal Medicine 02/07/23
--- OUTSIDE RECORDS SUMMARY | 2024-04-30 14:43 | XMS_ITS | Encounter Summary ---
Author Organization [facility] Address [address] [place] [address] Care Team Providers Care International Marketing Executive Name Role Phone Matias Bowling MD Primary Care Provider [phone] Encounter Details Date Type Department Care Team (Late st Contact Info) Description 04/23/2024 Lab Requisition [facility] - Main Lab [address] [place] [address] Matias Bowling MD [address] [place] [address] 204 [facility] [phone] Essential (primary) hypertension Social History Tobacco [...] mmol/L LAB CHEMISTRY METHOD 04/23/2024 10:18 AM [facility] CO2 25 21 - 32 mmol/L LAB CHEMISTRY METHOD 04/23/2024 10:18 AM [facility] Anion Gap 9 3 - 11 LAB CHEMISTRY METHOD 04/23/2024 10:18 AM [facility] Glucose 114(H) 70 - 100 mg/dL LAB CHEMISTRY METHOD 04/23/2024 10:18 AM [facility] BUN 17 5 - 25 mg/dL LAB CHEMISTRY METHOD 04/23/2024 10:18 AM [facility] Creatinine 1.01 0.50 - 1.10 mg/dL LAB CHEMISTRY METHOD 04/23/2024 10:18 AM [facility] eGFR 61 >=60 mL/min/1. 73m2 LAB CHEMISTRY METHOD 04/23/2024 10:18 AM [facility] Comment:Calculation based on the??Chronic Kidney Disease Epidemiology Collaboration (CKD-EPI) equation refit??without adjustment for race. BUN/Creatinine Ratio 16.8 LAB CHEMISTRY METHOD 04/23/2024 10:18 AM [facility] Calcium 9.4 8.5 - 10.5 mg/dL LAB CHEMISTRY METHOD 04/23/2024 10:18 AM [facility] AST (SGOT) 18 10 - 42 unit/L LAB CHEMISTRY METHOD 04/23/2024 10:18 AM [facility] ALT (SGPT) 25 10 - 60 unit/L LAB CHEMISTRY METHOD 04/23/2024 10:18 AM [facility] Alkaline Phosphatase 165(H) 42 - 121 unit/L LAB CHEMISTRY METHOD 04/23/2024 10:18 AM [facility] Total Protein 7.0 6.0 - 8.0 g/dL LAB CHEMISTRY METHOD 04/23/2024 10:18 AM [facility] Albumin 3.3 3.2 - 5.0 g/dL LAB CHEMISTRY METHOD 04/23/2024 10:18 AM [facility] Total Bilirubin 0.4 0.0 - 1.4 mg/dL LAB CHEMISTRY METHOD 04/23/2024 10:18 AM [facility] Blood Venous blood specimen / Unknown Venipuncture / Unknown 04/23/2024 5:04 AM EST 04/23/2024 8:47 AM EST us Matias Bowling MD LAB BLOOD ORDERABLES Final Resul t [facility] [address] [place] [address], [place] [phone] * (ABNORMAL) Complete blood count (04/23/2024 5:04 AM EST) WBC 8.9 4.8 - 10.8 K/mcL LAB HEMETOLOGY METHOD 04/23/2024 9:28 AM [facility] RBC 3.40(L) 3.80 - 4.80 M/mcL LAB HEMETOLOGY METHOD 04/23/2024 9:28 AM [facility] Hemoglobin 9.2(L) 11.5 - 16.0 g/dL LAB HEMETOLOGY METHOD 04/23/2024 9:28 AM [facility] Hematocrit 30.3(L) 35.0 - 47.0 % LAB HEMETOLOGY METHOD 04/23/2024 9:28 AM [facility] MCV 88.1 79.0 - 98.0 FL LAB HEMETOLOGY METHOD 04/23/2024 9:28 AM [facility] MCH 26.7(L) 27.0 - 32.0 pcg LAB HEMETOLOGY METHOD 04/23/2024 9:28 AM [facility] MCHC 30.4(L) 32.0 - 37.0 g/dL LAB HEMETOLOGY METHOD 04/23/2024 9:[address] [facility] RDW 14.6 11.0 - 15.0 [...] K/mcL LAB HEMETOLOGY METHOD 04/23/2024 9:28 AM [facility] Blood Venous blood specimen / Unknown Venipuncture / Unknown 04/23/2024 5:04 AM EST 04/23/2024 8:47 AM EST us Matias Bowling MD LAB BLOOD ORDERABLES Final Resul t [facility] [address] [place] [address], documented in this encounter Visit Diagnoses Diagnosis Essential (primary) hypertension Unspecified essential hypertension documented in this encounter Additional Health Concerns Infection Onset Date Last Indicated Resolved Time Gastrointestinal Rule-Out 04/28/2024 04/27/2024 documented as of this encounter Care Teams International Marketing Executive Relationship Specialty Start Date End Date Matias Bowling MD [address] [phone] PCP - General Family Medicine 04/16/24 documented as of this encounter
--- OUTSIDE RECORDS SUMMARY | 2024-04-30 14:43 | XMS_ITS | Encounter Summary ---
Author Organization [employer] Address [address] [facility] 7t [place] [address] Care Team Providers Care Tax Examiner Name Role Phone ManuelEthel perry Primary Care Provider + [phone] Vaishnavi Laird PharmD Unavailable [phone] Encounter Details Date Type Department Care [...] Whole Blood 136(H) 60 - 115 mg/dL [facility] Comment:METER #: [id number] 04/15/2024 11:4 4 AM EST 04/15/2024 11:48 AM EST us Generic External Data Provider LAB BLOOD ORDERAB LES Final Result [facility] [address] [place] [phone] * (ABNORMAL) Basic Metabolic Panel (04/15/2024 9:44 AM EST) Sodium 138 135 - 145 mmol/L [facility] Potassium 4.3 3.3 - 5.1 mmol/L [facility] Chloride 102 96 - 108 mmol/L [facility] Carbon Dioxide 24 22 - 29 mmol/L [facility] Anion Gap 16 12 - 20 [facility] Urea Nitrogen (BUN) 15 9 - 16 mg/dL [facility] Creatinine, Serum 1.10 0.5 - 1.4 mg/dL [facility] Creatinine Clr Calc Pharmacy 59.6 [facility] Comment:Provided height and weight: 160.02 cm,114.305 kg.eGFR (calculated from the MDRD study equation) and eCrCl(calculated from the Cockcroft-Gault equation) are based ondifferent parameters and may not yield comparable results.If eCrCl result is absurd, please check patient'sheight/weight. Estimated Glomerular Filt Rate 49 [facility] Comment:Chronic Kidney Disea se: Estimated GFR < 60 mL/min/1.97b4Fuimfp Kidney Disease: Estimated GFR < 15 mL/min/1.73m2 Glucose 154(H) 60 - 115 mg/dL [facility] Calcium 9.0 8.4 - 10.2 mg/dL [facility] 04/15/2024 9:44 AM EST 04/15/2024 9:54 AM EST us Generic External Data Provider LAB BLOOD ORDERAB LES Final Result [facility] [address] [place] [phone] * Glucose, Whole Blood (04/15/2024 7:25 AM EST) Glucose, Whole Blood 109 60 - 115 mg/dL [facility] Comment:METER #: [id number] 04/15/2024 7:25 AM EST 04/15/2024 7:39 AM EST us Generic External Data Provider LAB BLOOD ORDERAB LES Final Result [facility] [address] [place] [phone] documented in this encounter Visit Diagnoses Not on filedocumented in this encounter Additional Health Concerns Assessment Noted Time PHQ-9 Depression Total Score: 8 10/18/19 24 11:35 AM EDT documented as of this encounter Care Teams Tax Examiner Relationship Specialty Start Date End Date Ethel Chase DO [address] [place] [address] PCP - General Family Medicine 10/12/13 Vaishnavi Laird PharmD [address] [place] [address] Pharmacist Internal Medicine 02/07/23 documented as of this encounter
--- OUTSIDE RECORDS SUMMARY | 2024-04-30 14:43 | XMS_ITS | Encounter Summary ---
Author Organization [employer] Address [address] [facility] 7t [place] [address] Care Team Providers Care Charge Authorizer Name Role Phone Ethel Chase DO Primary Care Provider [phone] Vaishnavi Laird PharmD Unavailable [phone] Reason for Visit * Reason Comments Med Refill Encounter Details Date Type Department Care Team ([facility] st Contact Info) Description 04/28/2024 Refill [facility] [address] [place] [address] Ethel Chase DO [address] [place] [address] Social History Tobacco Use Types Packs/Day Years [...] documented as of this encounter Care Teams Charge Authorizer Relationship Specialty Start Date End Date Ethel Chase DO [address] [place] [address] PCP - General Family Medicine 10/12/13 Puia, Vaishnavi, PharmD [address] [place] [address] Pharmacist Internal Medicine 02/07/23 documented as of this encounter
--- OUTSIDE RECORDS SUMMARY | 2024-04-30 14:43 | XMS_ITS | Encounter Summary ---
Author Organization [employer] Address [address] [facility] 7t [place] [address] Care Team Providers Care Gallery Director Name Role Phone ManuelEthel perry Primary Care Provider + [phone] Vaishnavi Laird PharmD Unavailable [phone] Encounter Details Date Type Department Care [...] Whole Blood (04/14/2024 8:30 PM EST) Pathologist [facility] Glucose, Whole Blood 132(H) 60 - 115 mg/dL [facility] Comment:METER #: [id number] 04/14/2024 8:30 PM EST 04/14/2024 8:33 PM EST us Generic External Data Provider LAB BLOOD ORDERAB LES Final Result [facility] [address] [place] [phone] * SARS-CoV-2 RNA, Influenza A/B, and RSV RNA, Ql NAAT (04/14/2024 10:44 AM EST) Pathologist [facility] Influenza A PCR NEGATIVE Negative [facility] Influenza B PCR NEGATIVE Negative [facility] Resp Syncy Virus RNA Qual PCR NEGATIVE Negative [facility] SARS COV2 PCR NEGATIVE Negative [facility] Comment:All test results mus t [...] use by authorized laboratories.Testing performed on the Label[employer].mepert utilizingreal-time RT-PCR.All SARS CoV2 and positive influenza A/B results arereported to [facility]. 04/14/2024 10:4 4 AM EST 04/14/2024 10:54 AM EST us Generic External Data Provider LAB MICROBIOLOGY - GENERAL ORDERABLES Final Result [facility] [address] [place] [address] [phone] documented in this encounter Visit Diagnoses Not on filedocumented in this encounter Additional Health Concerns Assessment Noted Time PHQ-9 Depression Total Score: 8 10/18/19 24 11:35 AM EDT documented as of this encounter Care Teams Gallery Director Relationship Specialty Start Date End Date Ethel Chase DO [address] [place] [address] PCP - General Family Medicine 10/12/13 Vaishnavi Laird PharmD [address] [place] [address] Pharmacist Internal Medicine 02/07/23 documented as of this encounter
--- OUTSIDE RECORDS SUMMARY | 2024-04-30 14:43 | XMS_ITS | Encounter Summary ---
Author Organization [employer] Address [address] [place] [address] 7t [place] [address] Care Team Providers Care Air Traffic Supervisor Name Role Phone Ethel Chase DO Primary Care Provider [phone] Vaishnavi Laird PharmD Unavailable [phone] Reason for Visit * Reason Comments Med Refill Encounter Details Date Type Department Care Team (Late st Contact Info) Description 04/06/2022 Refill [facility] [address] [place] [address] Ethel Chase DO [address] [place] [address] Other chronic pain Social History Tobacco Use [...] documented as of this encounter Care Teams Air Traffic Supervisor Relationship Specialty Start Date End Date Ethel Chase DO [address] [place] [address] PCP - General Family Medicine 10/12/13 Vaishnavi Laird PharmD [address] [place] [address] Pharmacist Internal Medicine 02/07/23 documented as of this encounter
--- OUTSIDE RECORDS SUMMARY | 2024-04-30 14:43 | XMS_ITS | Encounter Summary ---
Author Organization [employer] Address [address] [facility] 7t [place] [address] Care Team Providers Care Physician President Name Role Phone Ethel Chase DO Primary Care Provider [phone] Vaishnavi Laird PharmD Unavailable [phone] Reason for Visit * Reason Comments Med Refill Encounter Details Date Type Department Care Team ([facility] st Contact Info) Description 04/06/2024 Refill [facility] [address] [place] [address] Ethel Chase DO [address] [place] [address] Other chronic pain Social History Tobacco Use [...] is prescribing postop pain management. Pt cancelled [employer] Renewal 03/03/24 and has not rescheduled. documented [...] documented as of this encounter Care Teams Physician President Relationship Specialty Start Date End Date Ethel Chase DO [address] [place] [address] PCP - General Family Medicine 10/12/13 Vaishnavi Laird, Zana [address] [place] [address] Pharmacist Internal Medicine 02/07/23 documented as of this encounter
--- OUTSIDE RECORDS SUMMARY | 2024-04-30 14:43 | XMS_ITS | Encounter Summary ---
Author Organization [employer] Address 75 [facility] 7t [place] [address] Care Team Providers Care Whipper Beater Name Role Phone Ethel Chase DO Primary Care Provider [phone] Vaishnavi Laird PharmD Unavailable [phone] Reason for Visit * Reason Comments Med Refill Encounter Details Date Type Department Care Team (Late st Contact Info) Description 10/25/2022 Refill [facility] [address] [place] [address] Eun Ray MD [address] [place] [address] Other chronic pain Social History Tobacco Use [...] documented as of this encounter Care Teams Whipper Beater Relationship Specialty Start Date End Date Ethel Chase DO [address] [place] [address] PCP - General Family Medicine 10/12/13 Vaishnavi Laird, Zana [address] [place] [address] Pharmacist Internal Medicine 02/07/23 documented as of this encounter
--- OUTSIDE RECORDS SUMMARY | 2024-04-30 14:43 | XMS_ITS | Encounter Summary ---
Author Organization [employer] Address 75 [facility] 7t [place] [address] Care Team Providers Care Rn Care Manager Name Role Phone Ethel Chase DO Primary Care Provider [phone] Vaishnavi Laird PharmD Unavailable [phone] Reason for Visit * Reason Onset Date Comments Appointment Request 03/02/2024 Encounter Details Date Type Department Care Team ([facility] st Contact Info) Description 03/02/2024 Telephone [facility] [address] [place] [address] Ethel Chase DO [address] [place], [place] [phone] Appointment Request Social History Tobacco Use Types [...] would like to reschedule. Please contact pt: [phone] (Vietnamese) documented in this encounter Plan of Treatment [...] documented as of this encounter Care Teams Rn Care Manager Relationship Specialty Start Date End Date Ethel Chase DO [address] [place] [address] PCP - General Family Medicine 10/12/13 Vaishnavi Laird PharmD [address] [place] [address] Pharmacist Internal Medicine 02/07/23 documented as of this encounter
--- OUTSIDE RECORDS SUMMARY | 2024-04-30 14:43 | XMS_ITS | Encounter Summary ---
Author Organization [employer] Address 75 [facility] 7t [place] [address] Care Team Providers Care Paper Guillotine Operator Name Role Phone Ethel Chase DO Primary Care Provider [phone] Vaishnavi Laird PharmD Unavailable [phone] Reason for Visit * Reason Comments Med Refill Encounter Details Date Type Department Care Team ([facility] st Contact Info) Description 04/07/[address] [facility] [address] [place] [address] Ethel Chase DO [address] [place] [address] Type 2 diabetes mellitus with other specified complication, unspecified whether supervisor intermediates insulin use ([facility]); Chronic gastroesophageal reflux disease Social History Tobacco [...] mellitus with other specified complication, unspecified whether halfway insulin use ([facility]) Chronic gastroesophageal reflux disease documented in this encounter Additional Health Concerns Assessment Noted Time PHQ-9 Depression Total Score: 8 10/18/19 24 11:35 AM EDT documented as of this encounter Care Teams Paper Guillotine Operator Relationship Specialty Start Date End Date Ethel Chase DO [address] [place] [address] PCP - General Family Medicine 10/12/13 Vaishnavi Laird PharmD [address] [place] [address] Pharmacist Internal Medicine 02/07/23 documented as of this encounter
--- OUTSIDE RECORDS SUMMARY | 2024-04-30 14:43 | XMS_ITS | Encounter Summary ---
Author Organization [employer] Address [address] [facility] 7t [place] [address] Care Team Providers Care Biochemistry Technician Name Role Phone Ethel Chase DO Primary Care Provider [phone]- [phone] Vaishnavi Laird PharmD Unavailable [phone] Reason for Visit * Reason Onset Date Comments Pre op 01/27/2024 Encounter Details Date Type Department Care Team ([facility] st Contact Info) Description 01/27/2024 Telephone [facility] MEDICINE [address] [place] [address] Ethel Chase DO [address] [place] [address] Pre op Social History Tobacco Use Types [...] op on 02/14/24 at 02:15PM. Sujata at [facility] stated she will be contacting pt to provide appointment details. Reminder letter sent via mail Date of Surgery: 03/24/24 Surgical procedure being done: left knee revision surgery Type of anesthesia: general anesthesia with block Lab needed: Yes include A1c EKG: Yes Surgeon's name: Dr Oro Facility name: [facility] Orthopedic Surgeon's office number: [phone] Surgeon's office fax number: [phone] Contact name (person you spoke with): Sujata [...] documented as of this encounter Care Teams Biochemistry Technician Relationship Specialty Start Date End Date Ethel Chase DO [address] [place] [address] PCP - General Family Medicine 10/12/13 Vaishnavi Laird PharmD [address] [place] [address] Pharmacist Internal Medicine 02/07/23 documented as of this encounter
--- OUTSIDE RECORDS SUMMARY | 2024-04-30 14:43 | XMS_ITS | Encounter Summary ---
Author Organization [employer] Address [address] [place] [address] 7t [place] [address] Care Team Providers Care Crocodile Farmer Name Role Phone Ethel Chase DO Primary Care Provider Vaishnavi Laird PharmD Unavailable [phone] Reason for Visit * Reason Comments Med Refill Encounter Details Date Type Department Care Team ([facility] st Contact Info) Description 02/07/2022 Refill [facility] MEDICINE [address] [place] [address] Ethel Chase DO [address] [place] [address] Diverticular disease (Primary Dx) Social History Tobacco [...] 3:31 PM EST TC placed to pt [phone] scan showed mild diverticulitis. Pt [...] is requesting medications to be sent to [facility] on [facility] in [facility] she cannot get to [facility] pharmacy before they close. RN will queue [...] scan results are back yet. RN checked Autog[employer] system and results not yet available. CT was ordered STAT. RN called [facility] [place] who reports they do not have a income tax investigator on site or Saturday and RN would have to call [place] [facility] at [phone] and speak to [facility] to request results to be read. RN called [phone] however phone rang continuously without an automated recording w/ options ora VM. RN returned call to [facility] to inform them no one answered at [place] [facility] and the phone just kept ringing. [facility] confirmed the number is correct and reports they will send a message to [place] [facility] to ask them to interpret the CT scan. RN will check before end of the day for interpretation report. * Telephone Encounter - Arcelia Wylie - 02/08/2022 2:07 PM EST Tc from [facility] [place] lab ordered be refaxed, race and sports book writer refaxed to [phone] * Telephone Encounter - Ethel Chase DO [...] documented as of this encounter Care Teams Crocodile Farmer Relationship Specialty Start Date End Date Ethel Chase DO [address] [place] [address] PCP - General Family Medicine 10/12/13 Vaishnavi Laird PharmD [address] [place] [address] Pharmacist Internal Medicine 02/07/23 documented as of this encounter
--- OUTSIDE RECORDS SUMMARY | 2024-04-30 14:43 | XMS_ITS | Encounter Summary ---
Author Organization [facility] Address [address] [place] [address] Care Team Providers Care Engrosser Name Role Phone Matias Bowling MD Primary Care Provider [phone] Encounter Details Date Type Department Care Team (Late st Contact Info) Description 04/16/[address] [facility] - Main Lab [address] [place] [address] Matias Bowling MD [address] [place] [address] [address] [facility] [address] Essential (primary) hypertension Social History [...] LAB CHEMISTRY METHOD 04/16/2024 11:36 AM EST [facility] Potassium 4.2 3.5 - 5.5 mmol/L LAB CHEMISTRY METHOD 04/16/2024 11:36 AM EST [facility] Chloride 103 96 - 110 mmol/L LAB CHEMISTRY METHOD 04/16/2024 11:36 AM [facility] CO2 25 21 - 32 mmol/L LAB CHEMISTRY METHOD 04/16/2024 11:36 AM [facility] Anion Gap 13(H) 3 - 11 LAB CHEMISTRY METHOD 04/16/2024 11:36 AM [facility] Glucose 96 70 - 100 mg/dL LAB CHEMISTRY METHOD 04/16/2024 11:36 AM [facility] BUN 13 5 - 25 mg/dL LAB CHEMISTRY METHOD 04/16/2024 11:36 AM [facility] Creatinine 1.13(H) 0.50 - 1.10 mg/dL LAB CHEMISTRY METHOD 04/16/2024 11:36 AM [facility] eGFR 53(L) >=60 mL/min/1. 73m2 LAB CHEMISTRY METHOD 04/16/2024 11:36 AM [facility] Comment:Calculation based on the??Chronic Kidney Disease Epidemiology Collaboration (CKD-EPI) equation refit??without adjustment for race. BUN/Creatinine Ratio 11.5 LAB CHEMISTRY METHOD 04/16/2024 11:36 AM [facility] Calcium 9.1 8.5 - 10.5 mg/dL LAB CHEMISTRY METHOD 04/16/2024 11:36 AM [facility] AST (SGOT) 31 10 - 42 unit/L LAB CHEMISTRY METHOD 04/16/2024 11:36 AM [facility] ALT (SGPT) 33 10 - 60 unit/L LAB CHEMISTRY METHOD 04/16/2024 11:36 AM [facility] Alkaline Phosphatase 181(H) 42 - 121 unit/L LAB CHEMISTRY METHOD 04/16/2024 11:36 AM [facility] Total Protein 7.5 6.0 - 8.0 g/dL LAB CHEMISTRY METHOD 04/16/2024 11:36 AM [facility] Albumin 3.3 3.2 - 5.0 g/dL LAB CHEMISTRY METHOD 04/16/2024 11:36 AM [facility] Total Bilirubin 0.4 0.0 - 1.4 mg/dL LAB CHEMISTRY METHOD 04/16/2024 11:36 AM [facility] Blood Venous blood specimen / Unknown Venipuncture / Unknown 04/16/2024 7:33 AM EST 04/16/2024 10:20 AM EST us Matias Bowling MD LAB BLOOD ORDERABLES Final Resul t [facility] [address] [place] [address], [place] [phone] * (ABNORMAL) Complete blood count (04/16/2024 7:33 AM EST) WBC 11.5(H) 4.8 - 10.8 K/mcL LAB HEMETOLOGY METHOD 04/16/2024 11:12 AM [facility] RBC 3.70(L) 3.80 - 4.80 M/[facility] LAB HEMETOLOGY METHOD 04/16/2024 11:12 AM [facility] Hemoglobin 9.9(L) 11.5 - 16.0 g/dL LAB HEMETOLOGY METHOD 04/16/2024 11:12 AM [facility] Hematocrit 32.1(L) 35.0 - 47.0 % LAB HEMETOLOGY METHOD 04/16/2024 11:12 AM [facility] MCV 87.5 79.0 - 98.0 FL LAB HEMETOLOGY METHOD 04/16/2024 11:12 AM [facility] MCH 27.0 27.0 - 32.0 pcg LAB HEMETOLOGY METHOD 04/16/2024 11:12 AM [facility] MCHC 30.8(L) 32.0 - 37.0 g/dL LAB HEMETOLOGY METHOD 04/16/2024 11:12 AM EST [facility] RDW 14.2 11.0 - 15.0 % LAB HEMETOLOGY METHOD 04/16/2024 11:12 AM [facility] Platelets 443(H) 130 - 400 K/mcL LAB HEMETOLOGY METHOD 04/16/2024 11:12 AM EST [facility] MPV 9.8 7.0 - 11.0 FL LAB HEMETOLOGY METHOD 04/16/2024 11:12 AM EST [facility] NRBC 0.0 <1.0 % LAB HEMETOLOGY METHOD 04/16/2024 11:12 AM [facility] NRBC Absolute 0.00 <0.10 K/mcL LAB HEMETOLOGY METHOD 04/16/2024 11:12 AM [facility] Blood Venous blood specimen / Unknown Venipuncture / Unknown 04/16/2024 7:33 AM EST 04/16/2024 10:20 AM EST Matias Bowling MD LAB BLOOD ORDERABLES Final Resul t [facility] [address] [place] [address], documented in this encounter Visit Diagnoses Diagnosis Essential (primary) hypertension Unspecified essential hypertension documented in this encounter Additional Health Concerns Infection Onset Date Last Indicated Resolved Time Gastrointestinal Rule-Out 04/28/2024 04/27/2024 documented as of this encounter Care Teams Engrosser Relationship Specialty Start Date End Date Matias Bowling MD [address] [place] [id number] PCP - General Family Medicine 04/16/24 documented as of this encounter
--- OUTSIDE RECORDS SUMMARY | 2024-04-30 14:43 | XMS_ITS | Encounter Summary ---
Author Organization [employer] Address [address] [facility] 7t [place] [address] Care Team Providers Care Bread Panner Name Role Phone Ethel Chase DO Primary Care Provider [phone] Vaishnavi Laird PharmD Unavailable [phone] Reason for Visit * Reason Onset Date Comments Nurse Triage 04/16/2023 Encounter Details Date Type Department Care Team ([facility] st Contact Info) Description 04/16/2023 Telephone [facility] MEDICINE [address] [place] [address] Ethel Chase DO [address] [place] [address] Nurse Triage Social History Tobacco Use Types [...] PM EST Triage call regarding message from [facility] see below. 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 Pt reports only high BS was [...] if any further problem to come to [facility] for provider to see Pt [...] - You become worse Tc from [facility] reporting patient has extreme high blood sugars: 355 Saturday Down to the 250 today Advises that her glucose monitor keeps beeping, [facility] Nurse advised that pt refused urgent fci visit but was advised to go to the urgent. Please contact pt [phone] South [place] Speaker * Telephone Encounter - Netta Diamondlaxmi Grider - 04/16/2023 4:18 PM EST Tc from [facility] reporting patient has extreme high blood sugars: 355 Saturday Down to the 250 today Advises that her glucose monitor keeps beeping, [facility] Nurse advised that pt refused urgent fci visit but was advised to go to the urgent. Please contact pt [phone] [place] Speaker documented in this encounter Plan of [...] documented as of this encounter Care Teams Bread Panner Relationship Specialty Start Date End Date Ethel Chase DO [address] [place] [address] PCP - General Family Medicine 10/12/13 Puia, Vaishnavi, PharmD [address] [place] [address] Pharmacist Internal Medicine 02/07/23 documented as of this encounter
--- OUTSIDE RECORDS SUMMARY | 2024-04-30 14:44 | XMS_ITS | Encounter Summary ---
Author Organization [employer] Address [address] [facility] 7t [place] [address] Care Team Providers Care Curing Room Supervisor Name Role Phone ManuelEthel perry Primary Care Provider [phone] Vaishnavi Laird PharmD Unavailable [phone] Encounter Details Date Type Department Care Team (Late st Contact Info) Description 02/09/2022 Orders Only [facility] MED & PEDS [address] [place], [place] [id number] Sadie Rivera, ANP [address] [place] [address] Social History Tobacco Use Types Packs/Day Years [...] documented as of this encounter Care Teams Curing Room Supervisor Relationship Specialty Start Date End Date Ethel Chase DO [address] [place] [address] PCP - General Family Medicine 10/12/13 Vaishnavi Laird PharmD [address] [place] [address] Pharmacist Internal Medicine 02/07/23 documented as of this encounter
--- OUTSIDE RECORDS SUMMARY | 2024-04-30 14:44 | XMS_ITS | Encounter Summary ---
Author Organization [facility] Address [address] [place] [address] Care Team Providers Care Jewel Bearing Turner Name Role Phone Matias Bowling MD Primary Care Provider [phone] Encounter Details Date Type Department Care Team (Late st Contact Info) Description 04/29/2024 Lab Requisition [facility] - Main Lab [address] [facility] [place] [address] Matias Bowling MD [address] [facility] 204 [facility] [address] Essential (primary) hypertension [...] documented as of this encounter Care Teams Jewel Bearing Turner Relationship Specialty Start Date End Date Matias Bowling MD 38 [facility] [address] [place] [address] PCP - General Family Medicine 04/16/24 documented as of this encounter
--- OUTSIDE RECORDS SUMMARY | 2024-04-30 14:44 | XMS_ITS | Encounter Summary ---
Author Organization [employer] Address [address] [facility] 7t [place] [address] Care Team Providers Care Online Health And Fitness Coach Name Role Phone Ethel Chase DO Primary Care Provider [phone] Vaishnavi Laird PharmD Unavailable [phone] Reason for Visit * Reason Comments Med Refill Encounter Details Date Type Department Care Team ([facility] st Contact Info) Description 04/16/2024 Refill [facility] MEDICINE [address] [place] [address] Ethel Chase DO [address] [place] [address] Social History Tobacco Use Types Packs/Day Years [...] documented as of this encounter Care Teams Online Health And Fitness Coach Relationship Specialty Start Date End Date Ethel Chase DO [address] [place] [address] PCP - General Family Medicine 10/12/13 Puia, Vaishnavi, PharmD [address] [place] [address] Pharmacist Internal Medicine 02/07/23 documented as of this encounter
--- OUTSIDE RECORDS SUMMARY | 2024-04-30 14:44 | XMS_ITS | Encounter Summary ---
Author Organization [facility] Address [address] [place] [address] Care Team Providers Care Deburr Technician Name Role Phone Matias Bowling MD Primary Care Provider [phone] Encounter Details Date Type Department Care Team (Late st Contact Info) Description 04/28/2024 Lab Requisition [facility] - Main Lab [address] [facility] [address] Matias Bowling MD [address] [facility] 204 [facility] [address] Diarrhea, unspecified Social History Tobacco Use Types Packs/Day Years Used Date Smoking Tobacco: Never Assessed Comments Unknown Sex and Gender Information Value Date Recorded Sex Assigned at Not on file Legal Sex Female 10:04 AM EST Gender Identity Not on file Sexual Orientation Not on file documented as of this encounter Plan of Treatment Not on file documented as of this encounter Visit Diagnoses Diagnosis Diarrhea, unspecified documented in this encounter Additional Health Concerns Infection Onset Date Last Indicated Resolved Time Gastrointestinal Rule-Out 04/28/2024 04/27/2024 documented as of this encounter Care Teams Deburr Technician Relationship Specialty Start Date End Date Matias Bowling MD [address] [facility] [address] [place] [address] PCP - General Family Medicine 04/16/24 documented as of this encounter
== END 2024-04-30 12:11 | disposition home or self-care (01) ==
LOC: HO.HOSX 12:10
PROVIDERS: Visit Provider Orthopaedic Surgery
DX: Z13.89 Encounter for screening for other disorder (principal)

== ENCOUNTER 2024-05-07 09:16 | Outpatient (REF) | payer OTHER, SELFPAY ==
--- NOTE | ~2024-05-07 | XR_ITS ---
EXAMINATION: XR FEMUR 2 VIEWS LEFT HISTORY: M79.606 - Pain in leg, unspecified COMPARISON: Comparison is made with the prior examination dated 04/23/2024. FINDINGS: AP and lateral views of the left femur are submitted. 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 The previously seen mildly displaced longitudinally oriented fracture of the distal medial femoral metaphysis is unchanged. There is mild narrowing of the hip joint. The soft tissues are unremarkable. XR/XR femur LT 2V IMPRESSION: Mildly displaced periprosthetic fracture of the distal femur without significant change. Electronically signed by: Jose Brandon MD 05/07/2024 01:11 PM EDT
--- OUTSIDE RECORDS SUMMARY | 2024-05-08 10:04 | XMS_ITS | Encounter Summary ---
Author Organization [email or web address] Address [address] [place] [address] [address] [place] [address] Care Team Providers Care Voice Instructor Name Role Phone Ethel Chase DO Primary Care Provider Vaishnavi Laird PharmD Unavailable Reason for Visit * Reason Comments Med Refill Encounter Details Date Type Department Care Team (Late st Contact Info) Description 06/07/[address] [facility] MEDICINE [address] [place] [address] Ethel Chase DO [address] [place] [address] Other chronic pain Social History Tobacco Use [...] documented as of this encounter Care Teams Voice Instructor Relationship Specialty Start Date End Date Ethel Chase DO [address] [place] [address] PCP - General Family Medicine 10/12/13 Vaishnavi Laird PharmD [address] [place] [address] Pharmacist Internal Medicine 02/07/23 documented as of this encounter
--- OUTSIDE RECORDS SUMMARY | 2024-05-08 10:04 | XMS_ITS | Encounter Summary ---
Author Organization [employer] Address [address] [facility] 7t [place] [address] Care Team Providers Care Batching Operator Name Role Phone Ethel Chase DO Primary Care Provider [phone] Vaishnavi Laird PharmD Unavailable [phone] Reason for Visit * Reason Onset Date Comments Pre op 01/27/2024 Encounter Details Date Type Department Care Team ([facility] st Contact Info) Description 01/27/2024 Telephone [facility] MEDICINE [address] [place] [address] Ethel Chase DO [address] [place] [address] Pre op Social History Tobacco Use Types [...] op on 02/14/24 at 02:15PM. Sujata at [facility] stated she will be contacting pt to provide appointment details. Reminder letter sent via mail Date of Surgery: 03/24/24 Surgical procedure being done: left knee revision surgery Type of anesthesia: general anesthesia with block Lab needed: Yes include A1c EKG: Yes Surgeon's name: Dr Oro Facility name: [facility] Orthopedic Surgeon's office number: [phone] Surgeon's office fax number: [phone] Contact name (person you spoke with): Sujata [...] documented as of this encounter Care Teams Batching Operator Relationship Specialty Start Date End Date Ethel Chase DO [address] [place] [address] PCP - General Family Medicine 10/12/13 Vaishnavi Laird PharmD [address] [place] [address] Pharmacist Internal Medicine 02/07/23 documented as of this encounter
--- OUTSIDE RECORDS SUMMARY | 2024-05-08 10:04 | XMS_ITS | Encounter Summary ---
Author Organization [employer] Address [address] [place] [address] 7t [place] [address] Care Team Providers Care Emergency Spill Response Technician Name Role Phone Ethel Chase DO Primary Care Provider [phone] Vaishnavi Laird PharmD Unavailable Reason for Visit * Reason Comments Med Refill Encounter Details Date Type Department Care Team (Late st Contact Info) Description 04/06/2022 [facility] [address] [place] [address] Ethel Chase DO [address] [place] [address] Other chronic pain Social History Tobacco Use [...] documented as of this encounter Care Teams Emergency Spill Response Technician Relationship Specialty Start Date End Date Ethel Chase DO [address] [place] [address] PCP - General Family Medicine 10/12/13 Vaishnavi Laird PharmD [address] [place] [address] Pharmacist Internal Medicine 02/07/23 documented as of this encounter
--- OUTSIDE RECORDS SUMMARY | 2024-05-08 10:04 | XMS_ITS | Encounter Summary ---
Author Organization [facility] Address [address] [place] [address] Care Team Providers Care Sap Hana Architect Name Role Phone Matias Bowling MD Primary Care Provider [phone] Encounter Details Date Type Department Care Team (Late st Contact Info) Description 05/06/2024 Lab Requisition [facility] - Main Lab [address] [place] [address] Matias Bowling MD [address] [place] [address] 204 [facility] [address] Essential (primary) hypertension Social History [...] LAB CHEMISTRY METHOD 05/07/2024 10:37 AM EDT [facility] Potassium 4.9 3.5 - 5.5 mmol/L LAB CHEMISTRY METHOD 05/07/2024 10:37 AM EDT [facility] Chloride 111(H) 96 - 110 mmol/L LAB CHEMISTRY METHOD 05/07/2024 10:37 AM [facility] CO2 22 21 - 32 mmol/L LAB CHEMISTRY METHOD 05/07/2024 10:37 AM [facility] Anion Gap 8 3 - 11 LAB CHEMISTRY METHOD 05/07/2024 10:37 AM [facility] Glucose 121(H) 70 - 100 mg/dL LAB CHEMISTRY METHOD 05/07/2024 10:37 AM [facility] BUN 15 5 - 25 mg/dL LAB CHEMISTRY METHOD 05/07/2024 10:37 AM [facility] Creatinine 1.02 0.50 - 1.10 mg/dL LAB CHEMISTRY METHOD 05/07/2024 10:37 AM [facility] eGFR 60 >=60 mL/min/1. 73m2 LAB CHEMISTRY METHOD 05/07/2024 10:37 AM [facility] Comment:Calculation based on the??Chronic Kidney Disease Epidemiology Collaboration (CKD-EPI) equation refit??without adjustment for race. BUN/Creatinine Ratio 14.7 LAB CHEMISTRY METHOD 05/07/2024 10:37 AM [facility] Calcium 9.1 8.5 - 10.5 mg/dL LAB CHEMISTRY METHOD 05/07/2024 10:37 AM [facility] AST (SGOT) 15 10 - 42 unit/L LAB CHEMISTRY METHOD 05/07/2024 10:37 AM [facility] ALT (SGPT) 20 10 - 60 unit/L LAB CHEMISTRY METHOD 05/07/2024 10:37 AM [facility] Alkaline Phosphatase 161(H) 42 - 121 unit/L LAB CHEMISTRY METHOD 05/07/2024 10:37 AM [facility] Total Protein 6.4 6.0 - 8.0 g/dL LAB CHEMISTRY METHOD 05/07/2024 10:37 AM EDT [facility] Albumin 3.1(L) 3.2 - 5.0 g/dL LAB CHEMISTRY METHOD 05/07/2024 10:37 AM EDT [facility] Total Bilirubin 0.2 0.0 - 1.4 mg/dL LAB CHEMISTRY METHOD 05/07/2024 10:37 AM EDT [facility] Blood Venous blood specimen / Unknown Venipuncture / Unknown 05/07/2024 5:12 AM EDT 05/07/2024 8:53 AM EDT us Matias Bowling MD LAB BLOOD ORDERABLES Final Resul t [facility] [address] [place] [address], * (ABNORMAL) Complete blood count (05/07/2024 5:12 AM EDT) WBC 9.6 4.8 - 10.8 K/mcL LAB HEMETOLOGY METHOD 05/07/2024 10:09 AM [facility] RBC 3.60(L) 3.80 - 4.80 M/mcL LAB HEMETOLOGY METHOD 05/07/2024 10:09 AM [facility] Hemoglobin 9.4(L) 11.5 - 16.0 g/dL LAB HEMETOLOGY METHOD 05/07/2024 10:09 AM T [facility] Hematocrit 31.5(L) 35.0 - 47.0 % LAB HEMETOLOGY METHOD 05/07/2024 10:09 AM T [facility] MCV 88.2 79.0 - 98.0 FL LAB HEMETOLOGY METHOD 05/07/2024 10:09 AM [facility] MCH 26.3(L) 27.0 - 32.0 pcg LAB HEMETOLOGY METHOD 05/07/2024 10:09 AM EDT [facility] MCHC 29.8(L) 32.0 - 37.0 g/dL LAB HEMETOLOGY METHOD 05/07/2024 10:09 AM EDT [facility] RDW 14.6 11.0 - 15.0 % LAB HEMETOLOGY METHOD 05/07/2024 10:09 AM EDT [facility] Platelets 303 130 - 400 K/mcL LAB HEMETOLOGY METHOD 05/07/2024 10:09 AM EDT [facility] MPV 10.1 7.0 - 11.0 FL LAB HEMETOLOGY METHOD 05/07/2024 10:09 AM EDT [facility] NRBC 0.0 <1.0 % LAB HEMETOLOGY METHOD 05/07/2024 10:09 AM EDT [facility] NRBC Absolute 0.00 <0.10 K/mcL LAB HEMETOLOGY METHOD 05/07/2024 10:09 AM EDT [facility] Blood Venous blood specimen / Unknown Venipuncture / Unknown 05/07/2024 5:12 AM EDT 05/07/2024 8:53 AM EDT us Matias Bowling MD LAB BLOOD ORDERABLES Final Resul t [facility] [address] [place] [address], documented in this encounter Visit Diagnoses Diagnosis Essential (primary) hypertension Unspecified essential hypertension documented in this encounter Additional Health Concerns Infection Onset Date Last Indicated Resolved Time Gastrointestinal Rule-Out 04/28/2024 04/27/2024 documented as of this encounter Care Teams Sap Hana Architect Relationship Specialty Start Date End Date Matias Bowling MD 38 [facility] 204 [place] [address] PCP - General Family Medicine 04/16/24 documented as of this encounter
--- OUTSIDE RECORDS SUMMARY | 2024-05-08 10:04 | XMS_ITS | Encounter Summary ---
Author Organization [employer] Address [address] [place] [address] 7[address] [place] [address] Care Team Providers Care Wage And Salary Specialist Name Role Phone Ethel Chase DO Primary Care Provider Vaishnavi Laird PharmD Unavailable Reason for Visit * Reason Comments Med Refill Encounter Details Date Type Department Care Team (Late st Contact Info) Description 06/06/2022 Refill [facility] MEDICINE [address] [place] [address] Ethel Chase DO [address] [place] [address] Other chronic pain Social History Tobacco Use [...] documented as of this encounter Care Teams Wage And Salary Specialist Relationship Specialty Start Date End Date Ethel Chase DO [address] [place] [address] PCP - General Family Medicine 10/12/13 Vaishnavi Laird PharmD [address] [place] [address] Pharmacist Internal Medicine 02/07/23 documented as of this encounter
--- OUTSIDE RECORDS SUMMARY | 2024-05-08 10:05 | XMS_ITS | Encounter Summary ---
Author Organization [facility] Address [address] [place] [address] Care Team Providers Care Windows Support Engineer Name Role Phone Matias Bowling MD Primary Care Provider [phone] Encounter Details Date Type Department Care Team (Late st Contact Info) Description 04/16/[address] [facility] - Main Lab [address] [place] [address] Matias Bowling MD [address] [place] [address] 204 [facility] [address] Essential (primary) hypertension Social History Tobacco [...] LAB CHEMISTRY METHOD 04/16/2024 11:36 AM EST [facility] Potassium 4.2 3.5 - 5.5 mmol/L LAB CHEMISTRY METHOD 04/16/2024 11:36 AM EST [facility] Chloride 103 96 - [...] MD LAB BLOOD ORDERABLES Final Resul t [facility] [address] [place] [address], [place] [phone] * (ABNORMAL) Complete blood count (04/16/2024 7:33 AM EST) WBC 11.5(H) 4.8 - 10.8 K/mcL LAB HEMETOLOGY METHOD 04/16/2024 11:12 AM [facility] RBC 3.70(L) 3.80 - 4.80 M/[facility] LAB HEMETOLOGY METHOD 04/16/2024 11:12 AM [facility] [...] LAB HEMETOLOGY METHOD 04/16/2024 11:12 AM EST [facility] RDW 14.2 11.0 - 15.0 % LAB HEMETOLOGY METHOD 04/16/2024 11:12 AM [facility] Platelets 443(H) 130 - 400 K/mcL LAB HEMETOLOGY METHOD 04/16/2024 11:12 AM EST [facility] MPV 9.8 7.0 - 11.0 FL LAB HEMETOLOGY METHOD 04/16/2024 11:12 AM EST [facility] NRBC 0.0 <1.0 % LAB HEMETOLOGY METHOD 04/16/2024 11:12 AM [facility] NRBC Absolute 0.00 <0.10 K/mcL LAB HEMETOLOGY METHOD 04/16/2024 11:12 AM [facility] Blood Venous blood specimen / Unknown Venipuncture / Unknown 04/16/2024 7:33 AM EST 04/16/2024 10:20 AM EST Matias Bowling MD LAB BLOOD ORDERABLES Final Resul t [facility] [address] [place] [address], documented in this encounter Visit Diagnoses Diagnosis Essential (primary) hypertension Unspecified essential hypertension documented in this encounter Additional Health Concerns Infection Onset Date Last Indicated Resolved Time Gastrointestinal Rule-Out 04/28/2024 04/27/2024 documented as of this encounter Care Teams Windows Support Engineer Relationship Specialty Start Date End Date Matias Bowling MD [address] [place] [id number] PCP - General Family Medicine 04/16/24 documented as of this encounter
--- OUTSIDE RECORDS SUMMARY | 2024-05-08 10:05 | XMS_ITS | Encounter Summary ---
Author Organization [employer] Address [address] [facility] 7t [place] [address] Care Team Providers Care Technical Operator Name Role Phone Ethel Chase DO Primary Care Provider [phone] Vaishnavi Laird PharmD Unavailable [phone] Reason for Visit * Reason Onset Date Comments Appointment Request 03/02/2024 Encounter Details Date Type Department Care Team ([facility] st Contact Info) Description 03/02/2024 Telephone [facility] MEDICINE [address] [place] [address] Ethel Chase DO [address] [place], [place] [phone] Appointment Request Social History Tobacco Use Types [...] would like to reschedule. Please contact pt: [phone] (Kiswahili) documented in this encounter Plan of Treatment [...] documented as of this encounter Care Teams Technical Operator Relationship Specialty Start Date End Date Ethel Chase DO [address] [place] [address] PCP - General Family Medicine 10/12/13 Vaishnavi Laird PharmD [address] [place] [address] Pharmacist Internal Medicine 02/07/23 documented as of this encounter
--- OUTSIDE RECORDS SUMMARY | 2024-05-08 10:05 | XMS_ITS | Encounter Summary ---
Author Organization [employer] Address [address] [facility] 7t [place] [address] Care Team Providers Care Field Technician Name Role Phone ManuelEthel perry Primary Care Provider [phone] Vaishnavi Laird PharmD Unavailable [phone] Encounter Details Date Type Department Care Team (Late st Contact Info) Description 02/09/2022 Orders Only [facility] [address] [place], [place] [phone] Sadie Rivera, ANP [address] [place] [address] Social History Tobacco Use Types Packs/Day Years [...] documented as of this encounter Care Teams Field Technician Relationship Specialty Start Date End Date Ethel Chase DO [address] [place] [address] PCP - General Family Medicine 10/12/13 Vaishnavi Laird PharmD [address] [place] [address] Pharmacist Internal Medicine 02/07/23 documented as of this encounter
--- OUTSIDE RECORDS SUMMARY | 2024-05-08 10:05 | XMS_ITS | Encounter Summary ---
Author Organization [facility] Address [address] [place] [address] Care Team Providers Care Measurer Name Role Phone Matias Bowling MD Primary Care Provider [phone] Encounter Details Date Type Department Care Team (Late st Contact Info) Description 04/30/2024 Lab Requisition [facility] - Main Lab [address] [place] [address] Matias Bowling MD [address] [place] [address] 204 [facility] [phone] Essential (primary) hypertension Social History [...] LAB CHEMISTRY METHOD 05/01/2024 12:[address] [facility] Potassium 4.7 3.5 - 5.5 mmol/L LAB CHEMISTRY METHOD 05/01/2024 12:[address] [facility] Chloride 110 96 - 110 mmol/L LAB CHEMISTRY METHOD 05/01/2024 12:26 PM [facility] CO2 21 21 - 32 mmol/L LAB CHEMISTRY METHOD 05/01/2024 12:26 PM [facility] Anion Gap 11 3 - 11 LAB CHEMISTRY METHOD 05/01/2024 12:26 PM [facility] Glucose 138(H) 70 - 100 mg/dL LAB CHEMISTRY METHOD 05/01/2024 12:26 PM [facility] BUN 18 5 - 25 mg/dL LAB CHEMISTRY METHOD 05/01/2024 12:26 PM [facility] Creatinine 1.07 0.50 - 1.10 mg/dL LAB CHEMISTRY METHOD 05/01/2024 12:26 PM [facility] eGFR 57(L) >=60 mL/min/1. 73m2 LAB CHEMISTRY METHOD 05/01/2024 12:26 PM [facility] Comment:Calculation based on the??Chronic Kidney Disease Epidemiology Collaboration (CKD-EPI) equation refit??without adjustment for race. BUN/Creatinine Ratio 16.8 LAB CHEMISTRY METHOD 05/01/2024 12:26 PM [facility] Calcium 9.3 8.5 - 10.5 mg/dL LAB CHEMISTRY METHOD 05/01/2024 12:26 PM [facility] Blood Venous blood specimen / Unknown Venipuncture / Unknown 05/01/2024 4:57 AM EST 05/01/2024 11:00 AM EST us Matias Bowling MD LAB BLOOD ORDERABLES Final Resul t [facility] [address] [place] [address], [place] [phone] * (ABNORMAL) Complete blood count (05/01/2024 4:57 AM EST) WBC 9.9 4.8 - 10.8 K/mcL LAB HEMETOLOGY METHOD 05/01/2024 11:34 AM [facility] RBC 3.50(L) 3.80 - 4.80 M/mcL LAB HEMETOLOGY METHOD 05/01/2024 11:34 AM [facility] Hemoglobin 9.3(L) 11.5 - 16.0 g/dL LAB HEMETOLOGY METHOD 05/01/2024 11:34 AM [facility] Hematocrit 31.7(L) 35.0 - 47.0 % LAB HEMETOLOGY METHOD 05/01/2024 11:34 AM [facility] MCV 90.3 79.0 - 98.0 FL LAB HEMETOLOGY METHOD 05/01/2024 11:34 AM [facility] MCH 26.5(L) 27.0 - 32.0 pcg LAB HEMETOLOGY METHOD 05/01/2024 11:34 AM [facility] MCHC 29.3(L) 32.0 - 37.0 g/dL LAB HEMETOLOGY METHOD 05/01/2024 11:34 AM [facility] RDW 14.7 11.0 - 15.0 % LAB HEMETOLOGY METHOD 05/01/2024 11:34 AM [facility] Platelets 312 130 - 400 K/mcL LAB HEMETOLOGY METHOD 05/01/2024 11:34 AM [facility] MPV 10.3 7.0 - 11.0 FL LAB HEMETOLOGY METHOD 05/01/2024 11:34 AM [facility] NRBC 0.0 <1.0 % LAB HEMETOLOGY METHOD 05/01/2024 11:34 AM [facility] NRBC Absolute 0.00 <0.10 K/mcL LAB HEMETOLOGY METHOD 05/01/2024 11:34 AM [facility] Blood Venous blood specimen / Unknown Venipuncture / Unknown 05/01/2024 4:57 AM EST 05/01/2024 11:00 AM EST us Matias Bowling MD LAB BLOOD ORDERABLES Final Resul t [facility] [address] [place] [address], documented in this encounter Visit Diagnoses Diagnosis Essential (primary) hypertension Unspecified essential hypertension documented in this encounter Additional Health Concerns Infection Onset Date Last Indicated Resolved Time Gastrointestinal Rule-Out 04/28/2024 04/27/2024 documented as of this encounter Care Teams Measurer Relationship Specialty Start Date End Date Matias Bowling MD [address] [place] [address] [place] [address] PCP - General Family Medicine 04/16/24 documented as of this encounter
--- OUTSIDE RECORDS SUMMARY | 2024-05-08 10:05 | XMS_ITS | Encounter Summary ---
Author Organization [employer] Address [address] [facility] 7[address] [place] [address] Care Team Providers Care Vp Site Name Role Phone ManuelEthel perry Primary Care Provider + [phone] Vaishnavi Laird PharmD Unavailable [phone] Encounter Details Date Type Department Care [...] Whole Blood 136(H) 60 - 115 mg/dL [facility] Comment:METER #: [id number] 04/15/2024 11:4 4 AM EST 04/15/2024 11:48 AM EST us Generic External Data Provider LAB BLOOD ORDERAB LES Final Result [facility] [address] [place] [phone] * (ABNORMAL) Basic Metabolic Panel (04/15/2024 9:44 AM EST) Sodium 138 135 - 145 mmol/L [facility] Potassium 4.3 3.3 - 5.1 mmol/L [facility] Chloride 102 96 - 108 mmol/L [facility] Carbon Dioxide 24 22 - 29 mmol/L [facility] Anion Gap 16 12 - 20 [facility] Urea Nitrogen (BUN) 15 9 - 16 mg/dL [facility] Creatinine, Serum 1.10 0.5 - 1.4 mg/dL [facility] Creatinine Clr Calc Pharmacy 59.6 [facility] Comment:Provided height and weight: 160.02 cm,114.305 kg.eGFR (calculated from the MDRD study equation) and eCrCl(calculated from the Cockcroft-Gault equation) are based ondifferent parameters and may not yield comparable results.If eCrCl result is absurd, please check patient'sheight/weight. Estimated Glomerular Filt Rate 49 [facility] Comment:Chronic Kidney Disea se: Estimated GFR < 60 mL/min/1.84q3Dhtwtc Kidney Disease: Estimated GFR < 15 mL/min/1.73m2 Glucose 154(H) 60 - 115 mg/dL [facility] Calcium 9.0 8.4 - 10.2 mg/dL [facility] 04/15/2024 9:44 AM EST 04/15/2024 9:54 AM EST us Generic External Data Provider LAB BLOOD ORDERAB LES Final Result [facility] [address] [place] [phone] * Glucose, Whole Blood (04/15/2024 7:25 AM EST) Glucose, Whole Blood 109 60 - 115 mg/dL [facility] Comment:METER #: [id number] 04/15/2024 7:25 AM EST 04/15/2024 7:39 AM EST us Generic External Data Provider LAB BLOOD ORDERAB LES Final Result [facility] [address] [place] [phone] documented in this encounter Visit Diagnoses Not on filedocumented in this encounter Additional Health Concerns Assessment Noted Time PHQ-9 Depression Total Score: 8 10/18/19 24 11:35 AM EDT documented as of this encounter Care Teams Vp Site Relationship Specialty Start Date End Date Ethel Chase DO [address] [place] [address] PCP - General Family Medicine 10/12/13 Vaishnavi Laird PharmD [address] [place] [address] Pharmacist Internal Medicine 02/07/23 documented as of this encounter
--- OUTSIDE RECORDS SUMMARY | 2024-05-08 10:05 | XMS_ITS | Encounter Summary ---
Author Organization [employer] Address [address] [facility] 7t [place] [address] Care Team Providers Care Lighting Fixtures Decorator Name Role Phone Ethel Chase DO Primary Care Provider [phone] Vaishnavi Laird PharmD Unavailable [phone] Reason for Visit * Reason Comments Med Refill Encounter Details Date Type Department Care Team ([facility] st Contact Info) Description 04/07/2024 Refill [facility] [address] [place] [address] Ethel Chase DO [address] [place] [address] Type 2 diabetes mellitus with other specified complication, unspecified whether usp insulin use ([facility]); Chronic gastroesophageal reflux disease Social History Tobacco [...] mellitus with other specified complication, unspecified whether usp insulin use ([facility]) Chronic gastroesophageal reflux disease documented in this encounter Additional Health Concerns Assessment Noted Time PHQ-9 Depression Total Score: 8 10/18/19 24 11:35 AM EDT documented as of this encounter Care Teams Lighting Fixtures Decorator Relationship Specialty Start Date End Date Ethel Chase DO [address] [place] [address] PCP - General Family Medicine 10/12/13 Vaishnavi Laird PharmD [address] [place] [address] Pharmacist Internal Medicine 02/07/23 documented as of this encounter
--- OUTSIDE RECORDS SUMMARY | 2024-05-08 10:05 | XMS_ITS | Clinical Summary ---
Author Organization [address] [facility] Address [address] [place] [address] Phone Care Team Providers Care Produce Team Lead Name Role Phone Matias Bowling MD Primary Care Provider [phone] Encounters Date Type Department Care Team Description 05/06/2024 Lab Requisition [facility] [address] [place] [phone] Matias Bowling MD Essential (primary) hypertension 04/30/2024 Lab Requisition [facility] [address] [place] [phone] Matias Bowling MD Essential (primary) hypertension 04/29/2024 Lab Requisition [facility] [address] [place] [phone] Matias Bowling MD Essential (primary) hypertension 04/29/2024 Lab Requisition [facility] [address] [place] [phone] Matias Bowling MD Hyperlipidemia, unspecified; 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 classified elsewhere (CMS/HCC) 04/28/2024 Lab Requisition [facility] [address] [place] [phone] Matias Bowling MD Diarrhea, unspecified 04/23/2024 Lab Requisition [facility] [address] [place] [phone] Matias Bowling MD Essential (primary) hypertension 04/16/2024 Lab Requisition [facility] [address] [place] [address] Matias Bowling MD Essential (primary) [...] Screening 04/16/2024 Hypertension/CHF/CAD Annual BMP Blood Test 05/07/2025 05/07/2024, 05/01/2024, 04/29/2024, Additional history exists RSV [...] LAB HEMETOLOGY METHOD 05/07/2024 10:09 AM EDT [facility] RBC 3.60(L) 3.80 - 4.80 M/mcL LAB HEMETOLOGY METHOD 05/07/2024 10:[address] [facility] Hemoglobin 9.4(L) 11.5 - 16.0 g/dL LAB HEMETOLOGY METHOD 05/07/2024 10:[address] [facility] Hematocrit 31.5(L) 35.0 - 47.0 % LAB HEMETOLOGY METHOD 05/07/2024 10:[address] [facility] MCV 88.2 79.0 - 98.0 FL LAB HEMETOLOGY METHOD 05/07/2024 10:[address] [facility] MCH 26.3(L) 27.0 - 32.0 pcg LAB HEMETOLOGY METHOD 05/07/2024 10:[address] [facility] MCHC 29.8(L) 32.0 - 37.0 g/dL LAB HEMETOLOGY METHOD 05/07/2024 10:[address] [facility] RDW 14.6 11.0 - 15.0 % LAB HEMETOLOGY METHOD 05/07/2024 10:[address] [facility] Platelets 303 130 - 400 K/mcL LAB HEMETOLOGY METHOD 05/07/2024 10:[address] [facility] MPV 10.1 7.0 - 11.0 FL LAB HEMETOLOGY METHOD 05/07/2024 10:[address] [facility] NRBC 0.0 <1.0 % LAB HEMETOLOGY METHOD 05/07/2024 10:[address] [facility] NRBC Absolute 0.00 <0.10 K/mcL LAB HEMETOLOGY METHOD 05/07/2024 10:[address] [facility] Blood Venous blood specimen / Unknown Venipuncture / Unknown 05/07/2024 5:12 AM EDT 05/07/2024 8:53 AM EDT us Matias Bowling MD LAB BLOOD ORDERABLES Final Resul t [facility] [address] [place] [address], * (ABNORMAL) Comprehensive metabolic panel (05/07/2024 5:12 AM EDT) Only the most recent of4 resultswithin the time period is included. Sodium 141 133 - 145 mmol/L LAB CHEMISTRY METHOD 05/07/2024 10:[address] [facility] Potassium 4.9 3.5 - 5.5 mmol/L LAB CHEMISTRY METHOD 05/07/2024 10:[address] [facility] Chloride 111(H) 96 - 110 mmol/L LAB CHEMISTRY METHOD 05/07/2024 10:[address] [facility] CO2 22 21 - 32 mmol/L LAB CHEMISTRY METHOD 05/07/2024 10:[address] [facility] Anion Gap 8 3 - 11 LAB CHEMISTRY METHOD 05/07/2024 10:[address] [facility] Glucose 121(H) 70 - 100 mg/dL LAB CHEMISTRY METHOD 05/07/2024 10:[address] [facility] BUN 15 5 - 25 mg/dL LAB CHEMISTRY METHOD 05/07/2024 10:[address] [facility] Creatinine 1.02 0.50 - 1.10 mg/dL LAB CHEMISTRY METHOD 05/07/2024 10:[address] [facility] eGFR 60 >=60 mL/min/1. 73m2 LAB CHEMISTRY METHOD 05/07/2024 10:[address] [facility] Comment:Calculation based on the??Chronic Kidney Disease Epidemiology Collaboration (CKD-EPI) equation refit??without adjustment for race. BUN/Creatinine Ratio 14.7 LAB CHEMISTRY METHOD 05/07/2024 10:[address] [facility] Calcium 9.1 8.5 - 10.5 mg/dL LAB CHEMISTRY METHOD 05/07/2024 10:[address] [facility] AST (SGOT) 15 10 - 42 unit/L LAB CHEMISTRY METHOD 05/07/2024 10:[address] [facility] ALT (SGPT) 20 10 - 60 unit/L LAB CHEMISTRY METHOD 05/07/2024 10:[address] [facility] Alkaline Phosphatase 161(H) 42 - 121 unit/L LAB CHEMISTRY METHOD 05/07/2024 10:[address] [facility] Total Protein 6.4 6.0 - 8.0 g/dL LAB CHEMISTRY METHOD 05/07/2024 10:[address] [facility] Albumin 3.1(L) 3.2 - 5.0 g/dL LAB CHEMISTRY METHOD 05/07/2024 10:[address] [facility] Total Bilirubin 0.2 0.0 - 1.4 mg/dL LAB CHEMISTRY METHOD 05/07/2024 10:[address] [facility] Blood Venous blood specimen / Unknown Venipuncture / Unknown 05/07/2024 5:12 AM EDT 05/07/2024 8:53 AM EDT us Matias Bowling MD LAB BLOOD ORDERABLES Final Resul t [facility] [address] [place] [address], * (ABNORMAL) Basic metabolic panel (05/01/2024 4:57 AM EST) Sodium 142 133 - 145 mmol/L LAB CHEMISTRY METHOD 05/01/2024 12:26 PM EST [facility] Potassium 4.7 3.5 - 5.5 mmol/L LAB CHEMISTRY METHOD 05/01/2024 12:26 PM EST [facility] Chloride 110 96 - 110 mmol/L LAB CHEMISTRY METHOD 05/01/2024 12:26 PM [facility] CO2 21 21 - 32 mmol/L LAB CHEMISTRY METHOD 05/01/2024 12:26 PM [facility] Anion Gap 11 3 - 11 LAB CHEMISTRY METHOD 05/01/2024 12:26 PM [facility] Glucose 138(H) 70 - 100 mg/dL LAB CHEMISTRY METHOD 05/01/2024 12:26 PM [facility] BUN 18 5 - 25 mg/dL LAB CHEMISTRY METHOD 05/01/2024 12:26 PM [facility] Creatinine 1.07 0.50 - 1.10 mg/dL LAB CHEMISTRY METHOD 05/01/2024 12:26 PM [facility] eGFR 57(L) >=60 mL/min/1. 73m2 LAB CHEMISTRY METHOD 05/01/2024 12:26 PM [facility] Comment:Calculation based on the??Chronic Kidney Disease Epidemiology Collaboration (CKD-EPI) equation refit??without adjustment for race. BUN/Creatinine Ratio 16.8 LAB CHEMISTRY METHOD 05/01/2024 12:26 PM [facility] Calcium 9.3 8.5 - 10.5 mg/dL LAB CHEMISTRY METHOD 05/01/2024 12:26 PM [facility] Blood Venous blood specimen / Unknown Venipuncture / Unknown 05/01/2024 4:57 AM EST 05/01/2024 11:00 AM EST us Matias Bowling MD LAB BLOOD ORDERABLES Final Resul t [facility] [address] [place] [address], [place] [phone] from Last 3 Months Additional Health Concerns Infection Onset Date Last Indicated Gastrointestinal Rule-Out 04/28/20242024 Insurance [facility] MEDICARE Member Subscriber Plan / Payer (Ef fective 2022-Present) Name:Dale Trish Relation to Subscriber:Self Name:Trish Hunter Payer ID:[id number] Group ID:[id number] Type:Not on file Address: [place] [address] [address] [phone] Care Teams Produce Team Lead Relationship Specialty Start Date End Date Matias Bowling MD [address] [place] [phone] PCP - General Family Medicine 04/16/24
--- OUTSIDE RECORDS SUMMARY | 2024-05-08 10:05 | XMS_ITS | Encounter Summary ---
Author Organization [employer] Address [address] [facility] 7t [place] [address] Care Team Providers Care Mixer Operator Tablets Name Role Phone ManuelEthel perry Primary Care Provider + [phone] Vaishnavi Laird PharmD Unavailable [phone] Encounter Details Date Type Department Care [...] DETECTION BY PCR NOT DETECTED Not Detect [facility] BACTERIAL VAGINOSIS DETECTION BY PCR NEGATIVE Negative [facility] Comment:The BV organism targ ets of [...] GROUP DETECTION BY PCR DETECTED(A) Not Detect [facility] Kayy glab krusei PCR NOT DETECTED Not Detect [facility] 04/07/2024 10:2 2 AM EST 04/07/2024 3:47 PM EST us Generic External Data Provider LAB MICROBIOLOGY - GENERAL ORDERABLES Final Result [facility] [address] [place] [phone] documented in this encounter Visit Diagnoses Not on filedocumented in this encounter Additional Health Concerns Assessment Noted Time PHQ-9 Depression Total Score: 8 10/18/19 24 11:35 AM EDT documented as of this encounter Care Teams Mixer Operator Tablets Relationship Specialty Start Date End Date Ethel Chase DO [address] [place] [address] PCP - General Family Medicine 10/12/13 Vaishnavi Laird PharmD [address] [place] [address] Pharmacist Internal Medicine 02/07/23 documented as of this encounter
--- OUTSIDE RECORDS SUMMARY | 2024-05-08 10:05 | XMS_ITS | Encounter Summary ---
Author Organization [employer] Address [address] [facility] 7t [place] [address] Care Team Providers Care Car Worker Helper Name Role Phone ManuelEthel perry Primary Care Provider + [phone] Vaishnavi Laird PharmD Unavailable [phone] Encounter Details Date Type Department Care [...] Whole Blood (04/14/2024 8:30 PM EST) Pathologist [facility] Glucose, Whole Blood 132(H) 60 - 115 mg/dL [facility] Comment:METER #: [id number] 04/14/2024 8:30 PM EST 04/14/2024 8:33 PM EST us Generic External Data Provider LAB BLOOD ORDERAB LES Final Result [facility] [address] [place] [phone] * SARS-CoV-2 RNA, Influenza A/B, and RSV RNA, Ql NAAT (04/14/2024 10:44 AM EST) Pathologist [facility] Influenza A PCR NEGATIVE Negative [facility] Influenza B PCR NEGATIVE Negative [facility] Resp Syncy Virus RNA Qual PCR NEGATIVE Negative [facility] SARS COV2 PCR NEGATIVE Negative [...] use by authorized laboratories.Testing performed on the [employer] utilizingreal-time RT-PCR.All SARS CoV2 and positive influenza A/B results arereported to [facility]. 04/14/2024 10:4 4 AM EST 04/14/2024 10:54 AM EST us Generic External Data Provider LAB MICROBIOLOGY - GENERAL ORDERABLES Final Result [facility] [address] [place] [phone] documented in this encounter Visit Diagnoses Not on filedocumented in this encounter Additional Health Concerns Assessment Noted Time PHQ-9 Depression Total Score: 8 10/18/19 24 11:35 AM EDT documented as of this encounter Care Teams Car Worker Helper Relationship Specialty Start Date End Date Ethel Chase DO [address] [place] [phone] PCP - General Family Medicine 10/12/13 Vaishnavi Laird PharmD [address] [place] [address] Pharmacist Internal Medicine 02/07/23 documented as of this encounter
--- OUTSIDE RECORDS SUMMARY | 2024-05-08 10:05 | XMS_ITS | Encounter Summary ---
Author Organization [facility] Address [address] [place] [address] Care Team Providers Care Door Closer Mechanic Name Role Phone Matias Bowling MD Primary Care Provider [phone] Encounter Details Date Type Department Care Team (Late st Contact Info) Description 04/29/2024 Lab Requisition [facility] - Main Lab [address] [place] [address] Matias Bowling MD [address] [place] [address] [address] [place], [phone] Hyperlipidemia, unspecified; 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 classified [...] LAB CHEMISTRY METHOD 04/29/2024 2:49 PM EST [facility] Potassium 4.5 3.5 - 5.5 mmol/L LAB CHEMISTRY METHOD 04/29/2024 2:49 PM [facility] Chloride 111(H) 96 - 110 mmol/L LAB CHEMISTRY METHOD 04/29/2024 2:49 PM [facility] CO2 23 21 - 32 mmol/L LAB CHEMISTRY METHOD 04/29/2024 2:49 PM [facility] Anion Gap 8 3 - 11 LAB CHEMISTRY METHOD 04/29/2024 2:49 PM [facility] Glucose 118(H) 70 - 100 mg/dL LAB CHEMISTRY METHOD 04/29/2024 2:49 PM [facility] BUN 18 5 - 25 mg/dL LAB CHEMISTRY METHOD 04/29/2024 2:49 PM [facility] Creatinine 0.94 0.50 - 1.10 mg/dL LAB CHEMISTRY METHOD 04/29/2024 2:49 PM [facility] eGFR 66 >=60 mL/min/1. 73m2 LAB CHEMISTRY METHOD 04/29/2024 2:49 PM [facility] Comment:Calculation based on the??Chronic Kidney Disease Epidemiology Collaboration (CKD-EPI) equation refit??without adjustment for race. BUN/Creatinine Ratio 19.1 LAB CHEMISTRY METHOD 04/29/2024 2:49 PM [facility] Calcium 9.2 8.5 - 10.5 mg/dL LAB CHEMISTRY METHOD 04/29/2024 2:49 PM [facility] AST (SGOT) 21 10 - 42 unit/L LAB CHEMISTRY METHOD 04/29/2024 2:49 PM [facility] ALT (SGPT) 24 10 - 60 unit/L LAB CHEMISTRY METHOD 04/29/2024 2:49 PM [facility] Alkaline Phosphatase 170(H) 42 - 121 unit/L LAB CHEMISTRY METHOD 04/29/2024 2:49 PM [facility] Total Protein 6.9 6.0 - 8.0 g/dL LAB CHEMISTRY METHOD 04/29/2024 2:49 PM [facility] Albumin 3.2 3.2 - 5.0 g/dL LAB CHEMISTRY METHOD 04/29/2024 2:49 PM [facility] Total Bilirubin 0.3 0.0 - 1.4 mg/dL LAB CHEMISTRY METHOD 04/29/2024 2:49 PM [facility] Blood Venous blood specimen / Unknown Venipuncture / Unknown 04/29/2024 6:35 AM EST 04/29/2024 10:01 AM EST us Matias Bowling MD LAB BLOOD ORDERABLES Final Resul t [facility] [address] [place] [address], [place] [phone] * (ABNORMAL) Complete blood count (04/29/2024 6:35 AM EST) WBC 9.6 4.8 - 10.8 K/mcL LAB HEMETOLOGY METHOD 04/29/2024 11:28 AM [facility] RBC 3.70(L) 3.80 - 4.80 M/mcL LAB HEMETOLOGY METHOD 04/29/2024 11:28 AM [facility] Hemoglobin 9.9(L) 11.5 - 16.0 g/dL LAB HEMETOLOGY METHOD 04/29/2024 11:28 AM [facility] Hematocrit 32.0(L) 35.0 - 47.0 % LAB HEMETOLOGY METHOD 04/29/2024 11:28 AM [facility] MCV 87.0 79.0 - 98.0 FL LAB HEMETOLOGY METHOD 04/29/2024 11:28 AM [facility] MCH 26.9(L) 27.0 - 32.0 pcg LAB HEMETOLOGY METHOD 04/29/2024 11:28 AM EST [facility] MCHC 30.9(L) 32.0 - 37.0 g/dL LAB HEMETOLOGY METHOD 04/29/2024 11:28 AM [facility] RDW 14.6 11.0 - 15.0 % LAB HEMETOLOGY METHOD 04/29/2024 11:28 AM [facility] Platelets 358 130 - 400 K/mcL LAB HEMETOLOGY METHOD 04/29/2024 11:28 AM [facility] MPV 10.0 7.0 - 11.0 FL LAB HEMETOLOGY METHOD 04/29/2024 11:28 AM [facility] NRBC 0.0 <1.0 % LAB HEMETOLOGY METHOD 04/29/2024 11:28 AM [facility] NRBC Absolute 0.00 <0.10 K/mcL LAB HEMETOLOGY METHOD 04/29/2024 11:28 AM [facility] Blood Venous blood specimen / Unknown Venipuncture / Unknown 04/29/2024 6:35 AM EST 04/29/2024 10:01 AM EST us Matias Bowling MD LAB BLOOD ORDERABLES Final Resul t [facility] [address] [place] [address], documented in this encounter Visit Diagnoses Diagnosis Hyperlipidemia, unspecified 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
--- OUTSIDE RECORDS SUMMARY | 2024-05-08 10:05 | XMS_ITS | Encounter Summary ---
Author Organization [employer] Address [address] [facility] 7t [place] [address] Care Team Providers Care Supervisor Acoustical Tile Carpenters Name Role Phone Ethel Chase DO Primary Care Provider [phone] Vaishnavi Laird PharmD Unavailable [phone] Reason for Visit * Reason Onset Date Comments Pre-Op 03/23/2024 Encounter Details Date Type Department Care Team (Late st Contact Info) Description 03/23/2024 Telephone [facility] [address] [place] [address] Ethel Chase DO 230 [place] [address] Pre-Op Social History Tobacco Use Types Packs/Day [...] name: Dave Oro Facility name: [facility] Orthopedic Surgeon's office number: [phone] Surgeon's office fax number: [phone] Contact name (person you spoke with): Trish [...] documented as of this encounter Care Teams Supervisor Acoustical Tile Carpenters Relationship Specialty Start Date End Date Ethel Chase DO [address] [place] [address] PCP - General Family Medicine 10/12/13 Vaishnavi Laird, Zana [address] [place] [address] Pharmacist Internal Medicine 02/07/23 documented as of this encounter
--- OUTSIDE RECORDS SUMMARY | 2024-05-08 10:05 | XMS_ITS | Encounter Summary ---
Author Organization [email or web address] Address [address] [place] [address] 7t [place] [address] Care Team Providers Care Making Department Preparer Name Role Phone Ethel Chase DO Primary Care Provider [phone] Vaishnavi Laird PharmD Unavailable [phone] Reason for Visit * Reason Comments Med Refill Encounter Details Date Type Department Care Team (Late st Contact Info) Description 08/10/[address] [facility] [address] [place] [address] [facility] 230 [place] [address] Social History Tobacco Use Types Packs/Day Years [...] documented as of this encounter Care Teams Making Department Preparer Relationship Specialty Start Date End Date Ethel Chase DO 230 [place] [address] PCP - General Family Medicine 10/12/13 Vaishnavi Laird, Zana 230 [place] [address] Pharmacist Internal Medicine 02/07/23 documented as of this encounter
--- OUTSIDE RECORDS SUMMARY | 2024-05-08 10:05 | XMS_ITS | Encounter Summary ---
Author Organization [employer] Address [address] [facility] 7t [place] [address] Care Team Providers Care Breakfast Bar Attendant Name Role Phone Ethel Chase DO Primary Care Provider [phone] Vaishnavi Laird PharmD Unavailable [phone] Reason for Visit * Reason Onset Date Comments Nurse Triage 04/16/2023 Encounter Details Date Type Department Care Team ([facility] st Contact Info) Description 04/16/2023 Telephone [facility] [address] [place] [address] Ethel Chase DO 230 [place] [address] Nurse Triage Social History Tobacco Use Types [...] PM EST Triage call regarding message from [facility] see below. Pt answers call , [place] [employer] [place] [place] [id number], but, Pt is speaking georgian well. Pt reports only high BS was [...] if any further problem to come to [facility] for provider to see Pt . [...] - You become worse Tc from [facility] reporting patient has extreme high blood sugars: 355 Saturday Down to the 250 today Advises that her glucose monitor keeps beeping, [facility] Nurse advised that pt refused urgent prison visit but was advised to go to the urgent. Please contact pt [phone] Cook Islander Speaker * Telephone Encounter - Netta Diamondlaxmi Grider - 04/16/2023 4:18 PM EST Tc from [facility] reporting patient has extreme high blood sugars: 355 Saturday Down to the 250 today Advises that her glucose monitor keeps beeping, [facility] Nurse advised that pt refused urgent prison visit but was advised to go to the urgent. Please contact pt [phone] Cook Islander Speaker documented in this encounter Plan of [...] documented as of this encounter Care Teams Breakfast Bar Attendant Relationship Specialty Start Date End Date Ethel Chase DO [address] [place] [address] PCP - General Family Medicine 10/12/13 Puia, Vaishnavi, PharmD [address] [place] [address] Pharmacist Internal Medicine 02/07/23 documented as of this encounter
--- OUTSIDE RECORDS SUMMARY | 2024-05-08 10:05 | XMS_ITS | Encounter Summary ---
Author Organization [employer] Address [address] [facility] 7t [place] [address] Care Team Providers Care Rn Paralegal Name Role Phone Ethel Chase DO Primary Care Provider [phone] Vaishnavi Laird PharmD Unavailable [phone] Reason for Visit * Reason Comments Med Refill Encounter Details Date Type Department Care Team (Late st Contact Info) Description 10/25/2022 Refill [facility] [address] [place] [address] Eun Ray MD 230 [place] [address] Other chronic pain Social History Tobacco Use [...] as of this encounter Care Teams Rn Paralegal Relationship Specialty Start Date End Date Ethel Chase DO 230 [place] [address] PCP - General Family Medicine 10/12/13 Vaishnavi Laird, Zana [address] [place] [address] Pharmacist Internal Medicine 02/07/23 documented as of this encounter
--- OUTSIDE RECORDS SUMMARY | 2024-05-08 10:05 | XMS_ITS | Encounter Summary ---
Author Organization [facility] Address [address] [place] [address] Care Team Providers Care Supervisor Cd Area Name Role Phone Matias Bowling MD Primary Care Provider [phone] Encounter Details Date Type Department Care Team (Late st Contact Info) Description 04/29/2024 Lab Requisition [facility] - Main Lab [address] [facility] [place] [address] Matias Bowling MD 38 [facility] 204 [facility] [address] Essential (primary) hypertension Social [...] as of this encounter Care Teams Supervisor Cd Area Relationship Specialty Start Date End Date Matias Bowling MD 38 [facility] 204 [place] [address] PCP - General Family Medicine 04/16/24 documented as of this encounter
--- OUTSIDE RECORDS SUMMARY | 2024-05-08 10:05 | XMS_ITS | Encounter Summary ---
Author Organization [facility] Address [address] [place] [address] Care Team Providers Care Platen Press Operator Name Role Phone Matias Bowling MD Primary Care Provider [phone] Encounter Details Date Type Department Care Team (Late st Contact Info) Description 04/28/2024 Lab Requisition [facility] - Main Lab 299 [facility] [place] [address] Matias Bowling MD 38 [facility] 204 [facility] [address] Diarrhea, unspecified Social History Tobacco Use [...] as of this encounter Care Teams Platen Press Operator Relationship Specialty Start Date End Date Matias Bowling MD 38 [facility] 204 [place] [address] PCP - General Family Medicine 04/16/24 documented as of this encounter
--- OUTSIDE RECORDS SUMMARY | 2024-05-08 10:05 | XMS_ITS | Encounter Summary ---
Author Organization [employer] Address [address] [place] [address] 7t [place] [address] Care Team Providers Care Sweater Operator Name Role Phone Ethel Chase DO Primary Care Provider Vaishnavi Laird PharmD Unavailable Reason for Visit * Reason Comments Med Refill Encounter Details Date Type Department Care Team ([facility] st Contact Info) Description 02/07/2022 Refill [facility] 230 [place] [address] Ethel Chase DO 230 [place] [address] Diverticular disease (Primary Dx) Social History Tobacco [...] 3:31 PM EST TC placed to pt [phone] scan showed mild diverticulitis. Pt [...] is requesting medications to be sent to [facility] she cannot get to [facility] pharmacy before they close. RN will queue [...] scan results are back yet. RN checked [employer] system and results not yet available. CT was ordered STAT. RN called [facility] radiology who reports they do not have a make ready worker on site or Saturday and RN would have to call [facility] at [phone] and speak to [facility] to request results to be read. RN called [phone] however phone rang continuously without an automated recording w/ options ora VM. RN returned call to [facility] to inform them no one answered at [facility] and the phone just kept ringing. [facility] confirmed the number is correct and reports they will send a message to [facility] to ask them to interpret the CT scan. RN will check before end of the day for interpretation report. * Telephone Encounter - Arcelia Wylie - 02/08/2022 2:07 PM EST Tc from [facility] requesting lab ordered be refaxed, process description writer refaxed to [phone] * Telephone Encounter - Ethel Chase DO [...] documented as of this encounter Care Teams Sweater Operator Relationship Specialty Start Date End Date Ethel Chase DO [address] [place] [address] PCP - General Family Medicine 10/12/13 Vaishnavi Laird PharmD [address] [place] [address] Pharmacist Internal Medicine 02/07/23 documented as of this encounter
--- OUTSIDE RECORDS SUMMARY | 2024-05-08 10:05 | XMS_ITS | Encounter Summary ---
Author Organization [employer] Address [address] [facility] 7t [place] [address] Care Team Providers Care Retirement Assistant Name Role Phone ManuelEthel perry Primary Care Provider [phone] Vaishnavi Laird PharmD Unavailable [phone] Reason for Visit * Reason Comments Med Refill Encounter Details Date Type Department Care Team ([facility] st Contact Info) Description 02/02/[address] [facility] [address] [place] [address] Sadie Rivera, ANP 230 [place] [address] Type 2 diabetes mellitus with other specified complication, unspecified whether terminal operator insulin use ([facility]) Social History Tobacco Use Types Packs/Day [...] specified complication, unspecified whether alf insulin use ([facility]) documented in this encounter Additional Health Concerns Assessment Noted Time PHQ-9 Depression Total Score: 0 02/08/20 22 10:43 AM EST documented as of this encounter Care Teams Retirement Assistant Relationship Specialty Start Date End Date Ethel Chase DO [address] [place] [address] PCP - General Family Medicine 10/12/13 Vaishnavi Laird PharmD [address] [place] [address] Pharmacist Internal Medicine 02/07/23 documented as of this encounter
--- OUTSIDE RECORDS SUMMARY | 2024-05-08 10:05 | XMS_ITS | Encounter Summary ---
Author Organization [facility] Address [address] [place] [address] Care Team Providers Care Typo Machine Operator Name Role Phone Matias Bowling MD Primary Care Provider [phone] Encounter Details Date Type Department Care Team (Late st Contact Info) Description 04/23/2024 Lab Requisition [facility] - Main Lab [address] [place] [address] Matias Bowling MD [address] [place] [address] [address] [facility] [address] Essential (primary) hypertension Social [...] LAB CHEMISTRY METHOD 04/23/2024 10:18 AM EST [facility] Potassium 4.4 3.5 - 5.5 mmol/L LAB CHEMISTRY METHOD 04/23/2024 10:18 AM EST [facility] Chloride 109 96 - 110 mmol/L LAB CHEMISTRY METHOD 04/23/2024 10:18 AM [facility] CO2 25 21 - 32 mmol/L LAB CHEMISTRY METHOD 04/23/2024 10:18 AM [facility] Anion Gap 9 3 - 11 LAB CHEMISTRY METHOD 04/23/2024 10:18 AM [facility] Glucose 114(H) 70 - 100 mg/dL LAB CHEMISTRY METHOD 04/23/2024 10:18 AM [facility] BUN 17 5 - 25 mg/dL LAB CHEMISTRY METHOD 04/23/2024 10:18 AM [facility] Creatinine 1.01 0.50 - 1.10 mg/dL LAB CHEMISTRY METHOD 04/23/2024 10:18 AM [facility] eGFR 61 >=60 mL/min/1. 73m2 LAB CHEMISTRY METHOD 04/23/2024 10:18 AM [facility] Comment:Calculation based on the??Chronic Kidney Disease Epidemiology Collaboration (CKD-EPI) equation refit??without adjustment for race. BUN/Creatinine Ratio 16.8 LAB CHEMISTRY METHOD 04/23/2024 10:18 AM [facility] Calcium 9.4 8.5 - 10.5 mg/dL LAB CHEMISTRY METHOD 04/23/2024 10:18 AM [facility] AST (SGOT) 18 10 - 42 unit/L LAB CHEMISTRY METHOD 04/23/2024 10:18 AM [facility] ALT (SGPT) 25 10 - 60 unit/L LAB CHEMISTRY METHOD 04/23/2024 10:18 AM [facility] Alkaline Phosphatase 165(H) 42 - 121 unit/L LAB CHEMISTRY METHOD 04/23/2024 10:18 AM [facility] Total Protein 7.0 6.0 - 8.0 g/dL LAB CHEMISTRY METHOD 04/23/2024 10:18 AM [facility] Albumin 3.3 3.2 - 5.0 g/dL LAB CHEMISTRY METHOD 04/23/2024 10:18 AM [facility] Total Bilirubin 0.4 0.0 - 1.4 mg/dL LAB CHEMISTRY METHOD 04/23/2024 10:18 AM [facility] Blood Venous blood specimen / Unknown Venipuncture / Unknown 04/23/2024 5:04 AM EST 04/23/2024 8:47 AM EST us Matias Bowling MD LAB BLOOD ORDERABLES Final Resul t [facility] [address] [place] [address], [place] [phone] * (ABNORMAL) Complete blood count (04/23/2024 5:04 AM EST) WBC 8.9 4.8 - 10.8 K/mcL LAB HEMETOLOGY METHOD 04/23/2024 9:28 AM [facility] RBC 3.40(L) 3.80 - 4.80 M/mcL LAB HEMETOLOGY METHOD 04/23/2024 9:28 AM [facility] Hemoglobin 9.2(L) 11.5 - 16.0 g/dL LAB HEMETOLOGY METHOD 04/23/2024 9:28 AM [facility] Hematocrit 30.3(L) 35.0 - 47.0 % LAB HEMETOLOGY METHOD 04/23/2024 9:28 AM [facility] MCV 88.1 79.0 - 98.0 FL LAB HEMETOLOGY METHOD 04/23/2024 9:28 AM [facility] MCH 26.7(L) 27.0 - 32.0 pcg LAB HEMETOLOGY METHOD 04/23/2024 9:28 AM [facility] MCHC 30.4(L) 32.0 - 37.0 g/dL LAB HEMETOLOGY METHOD 04/23/2024 9:28 AM EST [facility] RDW 14.6 11.0 - 15.0 % LAB HEMETOLOGY METHOD 04/23/2024 9:28 AM EST [facility] Platelets 333 130 - 400 K/mcL LAB HEMETOLOGY METHOD 04/23/2024 9:28 AM EST [facility] MPV 9.8 7.0 - 11.0 FL LAB HEMETOLOGY METHOD 04/23/2024 9:28 AM EST [facility] NRBC 0.0 <1.0 % LAB HEMETOLOGY METHOD 04/23/2024 9:28 AM EST [facility] NRBC Absolute 0.00 <0.10 K/mcL LAB HEMETOLOGY METHOD 04/23/2024 9:28 AM [facility] Blood Venous blood specimen / Unknown Venipuncture / Unknown 04/23/2024 5:04 AM EST 04/23/2024 8:47 AM EST us Matias Bowling MD LAB BLOOD ORDERABLES Final Resul t [facility] [address] [place] [address], documented in this encounter Visit Diagnoses Diagnosis Essential (primary) hypertension Unspecified essential hypertension documented in this encounter Additional Health Concerns Infection Onset Date Last Indicated Resolved Time Gastrointestinal Rule-Out 04/28/2024 04/27/2024 documented as of this encounter Care Teams Typo Machine Operator Relationship Specialty Start Date End Date Matias Bowling MD [address] [id number] PCP - General Family Medicine 04/16/24 documented as of this encounter
--- OUTSIDE RECORDS SUMMARY | 2024-05-08 10:05 | XMS_ITS | Encounter Summary ---
Author Organization [employer] Address [address] [facility] 7t [place] [address] Care Team Providers Care Marketing Production Specialist Name Role Phone Ethel Chase DO Primary Care Provider [phone] Vaishnavi Laird PharmD Unavailable [phone] Reason for Visit * Reason Comments Med Refill Encounter Details Date Type Department Care Team ([facility] st Contact Info) Description 04/06/2024 Refill [facility]INE [address] [place] [address] Ethel Chase DO [address] [place] [address] Other chronic pain Social History Tobacco Use [...] is prescribing postop pain management. 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 documented [...] documented as of this encounter Care Teams Marketing Production Specialist Relationship Specialty Start Date End Date Ethel Chase DO [address] [place] [address] PCP - General Family Medicine 10/12/13 Vaishnavi Laird, Zana [address] [place] [address] Pharmacist Internal Medicine 02/07/23 documented as of this encounter
--- OUTSIDE RECORDS SUMMARY | 2024-05-08 10:05 | XMS_ITS | Encounter Summary ---
Author Organization [employer] Address [address] [facility] [address] [place] [address] Care Team Providers Care Broadcast Producer Name Role Phone ManuelEthel perry Primary Care Provider + [phone] Vaishnavi Laird PharmD Unavailable [phone] Encounter Details Date Type Department Care [...] EST Narrative 04/12/2024 4:43 PM EST ? [facility] ?[address] ?[place] [address] ? CT Scan Report ? Signed ? Patient: Trish Cameron ?MR#: ?? [id number] ? : 1955 ?Acct:[id number] ? Age/Sex: 68 / F ?ADM Date: 04/12/24 ? Loc: HO.ED ? Attending Dr: ? Ordering Physician: Kierra Betts NP ?? Date of Service: 04/12/24 ?? Procedure(s): CT knee LT wo IV con ?? Accession Number(s): [id number] ? cc: Ethel Chase DO; Kierra Betts NP ? Report Number: ?? [id number]: Total DLP = ?0.00 mGy-cm ? CLINICAL HISTORY: femur fx, recent TKA revision ? CT left knee without contrast ? Comparison: CR/ID - XR KNEE LT 4V - 04/12/24 [...] DD/ 1641 ? TD/TT: 04/12/24 1641 ? Balance Screwhead Polisher: ? Procedure Note Villater, Image - 04/12/[address] [place] [address] [address] Scan Report Signed Patient: Trish Cameron MMR#: [id number] : 1955cct:[id number] Age/Sex: 68 / FADM Date: 04/12/24 Loc: HO.ED Attending Dr: Ordering Physician: Kierra Betts NP Date of Service: 04/12/24 Procedure(s): CT knee LT wo IV con Accession Number(s): [id number] cc: Ethel Chase DO; Kierra Betts NP Report Number: [id number]: Total DLP = 0.00 mGy-cm CLINICAL HISTORY: femur fx, recent TKA revision CT left knee without contrast Comparison: CR/ID - XR KNEE LT 4V - 04/12/24 [...] in OV> 04/12/241642 DD/ 40 TD/TT: 04/12/241640 Balance Screwhead Polisher: us [facility] External Provider IMG CT PROCEDURES Edited Result - Final * CT Head w/o Contrast (04/12/2024 4:31 PM EST) Anatomical Region Laterality Modality Head, Neck Computed Tomogra phy 04/12/2024 4:31 PM EST Narrative 04/12/2024 4:32 PM EST ? [facility] ?[address] ?[place] [address] ? CT Scan Report ? Signed ? Patient: Trish Cameron ?MR#: ?? [id number] ? : 1955 ?Acct:[id number] ? Age/Sex: 68 / F ?ADM Date: 04/12/24 ? Loc: HO.ED ? Attending Dr: ? Ordering Physician: Kierra Betts NP ?? Date of Service: 04/12/24 ?? Procedure(s): CT head/brain wo IV con ?? Accession Number(s): [id number] ? cc: Ethel Chase DO; Kierra Betts NP ? Report Number: ?? [id number]: Total DLP = 1028.00 mGy-cm ? CLINICAL [...] DD/ 1631 ? TD/TT: 04/12/24 1631 ? Balance Screwhead Polisher: ? Procedure Note Carito, Image - 04/12/[address] [address] [address] Scan Report Signed Patient: Trish Cameron [facility]#: [id number] : 6Acct:[id number] Age/Sex: 68 / FADM Date: 04/12/24 Loc: HO.ED Attending Dr: Ordering Physician: Kierra Betts NP Date of Service: 04/12/24 Procedure(s): CT head/brain wo IV con Accession Number(s): [id number] cc: Ethel Chase DO; Kierra Betts NP Report Number: [id number]: Total DLP = 1028.00 mGy-cm CLINICAL HISTORY: [...] 04/12/24 1631 DD/ 1631 TD/TT: 04/12/24 1631 Balance Screwhead Polisher: us [facility] External Provider IMG CT PROCEDURES Edited Result - Final * US VENOUS DUPLEX LE LT (04/12/2024 3:15 PM EST) Anatomical Region Laterality Modality Abdomen Ultrasound 04/12/2024 3:15 PM EST Narrative 04/12/2024 3:17 PM EST ? [place] [facility] ?[address] ?[place] [address] ? Ultrasound Report ? Signed ? Patient: Dale Oc,Vane ?MR#: ?? [id number] ? : 1955 ?Acct:[id number] ? Age/Sex: 68 / F ?ADM Date: 04/12/24 ? Loc: HO.ED ? Attending Dr: ? Ordering Physician: Kierra Betts NP ?? Date of Service: 04/12/24 ?? Procedure(s): US venous duplex LE LT ?? Accession Number(s): [id number] ? cc: Ethel Chase DO; Kierra Betts [...] ? DD/ 14 ? TD/TT: 04/12/241514 ? Balance Screwhead Polisher: ? Procedure Note Alek Arzate - 04/12/2024 [place] [address] Ultrasound Report Signed Patient: Trish Cameron [facility]#: [id number] : 1955cct:[id number] Age/Sex: 68 / FADM Date: 04/12/24 Loc: HO.ED Attending Dr: Ordering Physician: Kierra Betts NP Date of Service: 04/12/24 Procedure(s): US venous duplex LE LT Accession Number(s): [id number] cc: Ethel Chase DO; Kierra Betts NP [...] 04/12/24 1517 DD/ 1515 TD/TT: 04/12/24 1515 Balance Screwhead Polisher: [facility] External Provider IMG US PROCEDURES Edited Result - Final * XR Knee 4+ Views Left (04/12/2024 2:32 PM EST) Anatomical Region Laterality Modality Lower Extremities, Knee Left Radiogra phic Imaging 04/12/2024 2:32 PM EST Narrative 04/12/2024 2:34 PM EST ? [facility] ?[address] ?[place] [address] ?XRay Report ? Signed ? Patient: Trish Cameron ?MR#: ?? [id number] ? : 1955 ?Acct:[id number] ? Age/Sex: 68 / F ?ADM Date: 04/12/24 ? Loc: HO.ED ? Attending Dr: ? Ordering Physician: Kierra Betts NP ?? Date of Service: 04/12/24 ?? Procedure(s): XR knee LT 4V ?? Accession Number(s): [id number] ? cc: Ethel Chase DO; Kierra Betts NP ? CLINICAL HISTORY: fall, hx knee replacement with revision ? 4 view left knee ? Comparison: CR/ID - XR KNEE LT 2V - 03/24/24 [...] ? DD/ ? TD/TT: 04/12/24 1432 ? Balance Screwhead Polisher: ? Procedure Note Donotuseinterpreter, Image - 04/12/[address] [address] XRay Report Signed Patient: Trish Cameron MMR#: [id number] : 6Acct:[id number] Age/Sex: 68 / FADM Date: 04/12/24 Loc: HO.ED Attending Dr: Ordering Physician: Kierra Betts NP Date of Service: 04/12/24 Procedure(s): XR knee LT 4V Accession Number(s): [id number] cc: Ethel Chase DO; Kierra Betts NP CLINICAL HISTORY: fall, hx knee replacement with revision 4 view left knee Comparison: CR/ID - XR KNEE LT 2V - 03/24/24 [...] 04/12/24 1433 DD/ 1432 TD/TT: 04/12/24 1432 Balance Screwhead Polisher: [facility] External Provider IMG XR PROCEDURES Edited Result - Final * Blood Culture (Second) (04/12/2024 1:55 PM EST) Blood Venous blood specimen / Unknown 04/12/2024 1:55 PM EST 04/12/2024 2:03 PM EST Comment:Blood Narrative [facility] - 04/17/2024 4:03 PM EST Blood Culture (Second) No growth after 5 days. Specimen Source: Blood Generic External Data Provider LAB MICROBIOLOGY - GENERAL ORDERABLES Final Result [facility] [address] [place] [phone] * Blood Culture (First) (04/12/2024 1:53 PM EST) Blood Venous blood specimen / Unknown 04/12/2024 1:53 PM EST 04/12/2024 2:00 PM EST Comment:Blood Narrative [facility] - 04/17/2024 4:01 PM EST Blood Culture (First) No growth after 5 days. Specimen Source: Blood us Generic External Data Provider LAB MICROBIOLOGY - GENERAL ORDERABLES Final Result Performing Organization Address [facility] Number [facility] [address] [place] [phone] * (ABNORMAL) Sed Rate by Modified [place] (04/12/2024 1:53 PM EST) Erythrocyte Sedimentation Rate 100(H) 0 - 20 MM/HR [facility] Comment:Patients with polycy themia and many hemoglobin abnormalitiesmay have depressed sed rates whereas patients with anemiamay have elevated sed rates. 04/12/2024 1:53 PM EST 04/12/2024 2:00 PM EST us Generic External Data Provider LAB BLOOD ORDERAB LES Final Result Performing Organization Address [facility] Phone Number [facility] [address] [place] [phone] * (ABNORMAL) C-reactive Protein (04/12/2024 1:53 PM EST) C Reactive Protein 11.79(H) < or = 0.50 mg/dL [facility] 04/12/2024 1:53 PM EST 04/12/2024 2:00 PM EST us Generic External Data Provider LAB BLOOD ORDERAB LES Final Result [facility] [address] [place] [phone] * (ABNORMAL) Comprehensive Metabolic Panel (04/12/2024 1:53 PM EST) Sodium 136 135 - 145 mmol/L [facility] Potassium 5.3(H) 3.3 - 5.1 mmol/L [facility] Chloride 101 96 - 108 mmol/L [facility] Carbon Dioxide 25 22 - 29 mmol/L [facility] Anion Gap 15 12 - 20 [facility] Urea Nitrogen (BUN) 18(H) 9 - 16 mg/dL [facility] Creatinine, Serum 1.45(H) 0.5 - 1.4 mg/dL [facility] Creatinine Clr Calc Pharmacy 45.2 [facility] Comment:Provided height and weight: 160.02 cm,114.305 kg.eGFR (calculated from the MDRD study equation) and eCrCl(calculated from the Cockcroft-Gault equation) are based ondifferent parameters and may not yield comparable results.If eCrCl result is absurd, please check patient'sheight/weight. Estimated Glomerular Filt Rate 36 [facility] Comment:Chronic Kidney Disea se: Estimated GFR < 60 mL/min/1.26x7Drcfxo Kidney Disease: Estimated GFR < 15 mL/min/1.73m2 Glucose 148(H) 60 - 115 mg/dL [facility] Calcium 10.0 8.4 - 10.2 mg/dL [facility] Bilirubin, Total 0.3 0.0 - 1.0 mg/dL [facility] Aspartate Amino Transferase 45(H) 5 - 31 U/L [facility] Alanine Aminotransferase 29 0 - 31 U/L [facility] Total Protein 8.2(H) 6.5 - 8.0 g/dL [facility] Albumin Level 3.7 3.5 - 5.0 g/dL [facility] Alkaline Phosphatase 202(H) 39 - 117 U/L [facility] 04/12/2024 1:53 PM EST 04/12/2024 2:00 PM EST Generic External Data Provider LAB BLOOD ORDERAB LES Final Result Performing Organization Address [facility] de Phone Number [facility] [address] [place] [phone] * Lactic Acid (04/12/2024 1:53 PM EST) Lactic Acid 2.0 0.5 - 2.0 mmol/L [facility] 04/12/2024 1:53 PM EST 04/12/2024 2:00 PM EST Generic External Data Provider LAB BLOOD ORDERAB LES Final Result Performing Organization Address [facility] Phone Number [facility] [address] [place] [phone] * Partial Thromboplastin Time, Activated (APTT) (04/12/2024 1:53 PM EST) Partial Thromboplastin Time 31.7 26.0 - 36.8 SEC [facility] Comment:For information rega rding the monitoring of direct thrombininhibitors, please refer to Pharmacy. 04/12/2024 1:53 PM EST 04/12/2024 2:00 PM EST Generic External Data Provider LAB BLOOD ORDERAB LES Final Result Performing Organization Address [facility] de Phone Number [facility] [address] [place] [phone] * (ABNORMAL) Prothrombin Time-INR (04/12/2024 1:53 PM EST) Prothrombin Time 12.6(H) 10.9 - 12.4 SEC [facility] INTERNATIONAL NORM RATIO 1.1 0.9 - 1.1 [facility] Comment:INTERNATIONAL NORMAL IZED RATIO (INR) [...] Provider LAB BLOOD ORDERAB LES Final Result [facility] [address] [place], [place] [phone] * (ABNORMAL) CBC auto differential (04/12/2024 1:53 PM EST) White Blood Count 11.3(H) 4.8 - 10.8 X10*3/uL [facility] Red Blood Count 3.33(L) 4.20 - 5.50 X10*6/uL [facility] Hemoglobin 9.1(L) 12.0 - 16.0 g/dl [facility] Hematocrit 28.2(L) 37.0 - 47.0 % [facility] Mean Corpuscular Volume 84.7 80.0 - 98.0 fL [facility] Mean Corpuscular Hemoglobin 27.3 27.0 - 33.0 pg [facility] Mean Corpuscular HGB Conc 32.3 31.0 - 35.0 g/dl [facility] Red Cell Distribution Width 14.0 11.0 - 16.0 % [facility] Platelet Count 411(H) 160 - 400 X10*3/uL [facility] Mean Platelet Volume 9.0(L) 9.4 - 12.3 fL [facility] Neutrophils Percent Auto 72.1 45 - 73 % [facility] Imm Gran Pct Auto 0.6(H) 0.0 - 0.4 % [facility] Lymphocytes Percent Auto 18.6(L) 20 - 40 % [facility] Monocytes Percent Auto 7.1 2 - 11 % [facility] Eosinophils Percent Auto 1.2 0 - 4 % [facility] Basophils Percent Auto 0.4 0 - 2 % [facility] NRBC Pct Auto 0.0 0.0 - 0.2 /100WBC [facility] Neutrophils Absolute Auto 8.2 2.0 - 8.3 x10*3/uL [facility] Imm Gran Abs Auto 0.07(H) 0.00 - 0.03 X10*3/uL [facility] Lymphocytes Absolute Auto 2.1 1.2 - 4.9 X10*3/uL [facility] Monocytes Absolute Auto 0.8 0.1 - 1.2 X10*3/uL [facility] Eosinophils Absolute Auto 0.1 0.0 - 0.4 X10*3/uL [facility] Basophils Absolute Auto 0.1 0.0 - 0.2 X10*3/uL [facility] NRBC Abs Auto 0.000 0.0 - 0.012 X10*3/uL [facility] 04/12/2024 1:53 PM EST 04/12/2024 2:00 PM EST us Generic External Data Provider LAB BLOOD ORDERAB LES Final Result [facility] [address] [place] [phone] documented in this encounter Visit Diagnoses Not on filedocumented in this encounter Additional Health Concerns Assessment Noted Time PHQ-9 Depression Total Score: 8 10/18/19 24 11:35 AM EDT documented as of this encounter Care Teams Broadcast Producer Relationship Specialty Start Date End Date Ethel Chase DO [address] [place] [address] PCP - General Family Medicine 10/12/13 Vaishnavi Laird PharmD [address] [place] [address] Pharmacist Internal Medicine 02/07/23 documented as of this encounter
--- OUTSIDE RECORDS SUMMARY | 2024-05-08 10:05 | XMS_ITS | Encounter Summary ---
Author Organization [employer] Address [address] [facility] [address] [place] [address] Care Team Providers Care Platform Loader Name Role Phone Ethel Chase DO Primary Care Provider [phone] Vaishnavi Laird PharmD Unavailable [phone] Reason for Visit * Reason Comments Med Refill Encounter Details Date Type Department Care Team ([facility] st Contact Info) Description 04/16/2024 Refill [facility] MEDICINE [address] [place] [phone] Ethel Chase DO [address] [place] [address] Social History Tobacco Use Types Packs/Day Years [...] documented as of this encounter Care Teams Platform Loader Relationship Specialty Start Date End Date Ethel Chase DO [address] [place] [address] PCP - General Family Medicine 10/12/13 Puia, Vaishnavi, PharmD [address] [place] [address] Pharmacist Internal Medicine 02/07/23 documented as of this encounter
--- OUTSIDE RECORDS SUMMARY | 2024-05-08 10:05 | XMS_ITS | Encounter Summary ---
Author Organization [employer] Address [address] [facility] [address] [place] [address] Care Team Providers Care Pinion Polisher Name Role Phone Ethel Chase DO Primary Care Provider [phone] Vaishnavi Laird PharmD Unavailable [phone] Reason for Visit * Reason Comments Med Refill Encounter Details Date Type Department Care Team ([facility] st Contact Info) Description 04/28/2024 Refill [facility] [address] [place] [address] Ethel Chase DO [address] [place] [address] Social History Tobacco Use Types Packs/Day Years [...] documented as of this encounter Care Teams Pinion Polisher Relationship Specialty Start Date End Date Ethel Chase DO [address] [place] [address] PCP - General Family Medicine 10/12/13 Puia, Vaishnavi, PharmD [address] [place] [address] Pharmacist Internal Medicine 02/07/23 documented as of this encounter
--- OUTSIDE RECORDS SUMMARY | 2024-05-08 10:05 | XMS_ITS | Encounter Summary ---
Author Organization [employer] Address [address] [facility] [address] [place] [address] Care Team Providers Care Brim Pouncer Name Role Phone Ethel Chase DO Primary Care Provider [phone] Vaishnavi Laird PharmD Unavailable [phone] Reason for Visit * Reason Comments Med Refill Encounter Details Date Type Department Care Team ([facility] st Contact Info) Description 03/23/2024 Refill [facility] MEDICINE [address] [place] [address] Ethel Chase DO [address] [place] [address] Other chronic pain Social History Tobacco Use [...] documented as of this encounter Care Teams Brim Pouncer Relationship Specialty Start Date End Date Ethel Chase DO [address] [place] [address] PCP - General Family Medicine 10/12/13 TwilaiaVaishnavi, PharmD [address] [place] [address] Pharmacist Internal Medicine 02/07/23 documented as of this encounter
--- OUTSIDE RECORDS SUMMARY | 2024-05-08 10:05 | XMS_ITS | Clinical Summary ---
Author Organization [employer] Address [address] [facility] [address] [place] [address] Care Team Providers Care Machine Design Checker Name Role Phone Ethel Chase Primary Care Provider Vaishnavi Laird PharmD Unavailable [phone] Allergies Active Allergy Reactions Criticality Noted [...] FOR ANXEITY 023 Active Continuous Blood Gluc [employer] (FreeStyle Gerard 2 [place]) deviceIndications:P oorly controlled diabetes mellitus ([facility]) Use to scan sensor at least every 8 hours, as directed, for CGM 1 each 023 Active Alcohol Swabs (Alcohol Pads) 70 % padsIndications:Poo rly controlled diabetes mellitus ([facility]) Use as directed daily prior to insulin [...] Test) test stripIndications:Po mabel controlled diabetes mellitus ([facility]) USE DIRECTED TO TEST BLOOD SUGAR UP [...] complication, without long-term current use of insulin ([facility]) USE TO TEST BLOOD SUGAR TWICE DAILY [...] complication, without long-term current use of insulin ([facility]) Administer 3 mg via 1 device into the nostril for hypoglycemia with loss of consciousness. If no response after 15 minutes administer an additional dose via 2nd device into other nostril. 2 each Active Semaglutide, 2 MG/DOSE, (Ozempic, 2 MG/DOSE,) 8 MG/3ML solution pen-injectorIndicat ions:Type 2 diabetes mellitus without complication, without long-term current use of insulin ([facility]) Inject 2 mg under the skin 1 (one) time per week. 3 mL Active glucose 4 g chewable tablet Chew 4 tablets (16 g) if needed for low blood sugar (BG < 70 mg/dL). 20 tablet 5 024 2024 Active Continuous Glucose Sensor (FreeStyle Gerard 2 Sensor) miscIndications:Poo rly controlled diabetes mellitus ([facility]) USE DIRECTED CHANGE EVERY 14 DAYS 2 [...] complication, without long-term current use of insulin ([facility]) Use to inject insulin 1 times daily 100 each 3 Active insulin degludec (Tresiba FlexTouch) 100 UNIT/ML injectionIndication s:Type 2 diabetes mellitus without complication, without long-term current use of insulin ([facility]) Inject 32 units subQ once daily at [...] specified complication, unspecified whether halfway insulin use ([facility]) TAKE 1 TABLET BY MOUTH EVERY EVENING [...] BEDTIME 60 tablet 5 024 2024 Discontinued Active Problems Problem Noted Date [...] Type Department Care Team Description 04/28/2024 Refill [facility] [address] [place] [address] Ethel Chase DO 04/16/2024 Refill [facility] [address] [place] [address] Ethel Chase DO 04/15/2024 Orders Only GENERIC EXTERNAL DATA DEPARTMENT Provider, Generic External Data 04/14/2024 Orders Only GENERIC EXTERNAL DATA DEPARTMENT Provider, Generic External Data 04/12/2024 Orders Only GENERIC EXTERNAL DATA DEPARTMENT Provider, Generic External Data 04/07/2024 Orders Only GENERIC EXTERNAL DATA DEPARTMENT Provider, Generic External Data 04/07/2024 Refill [facility] [address] [place] [address] Ethel Chase DO Type 2 diabetes mellitus with other specified complication, unspecified whether halfway insulin use ([facility]); Chronic gastroesophageal reflux disease 04/06/2024 Refill [facility] [address] [place] [address] Ethel Chase DO Other chronic pain 03/26/2024 Orders Only GENERIC EXTERNAL DATA DEPARTMENT Provider, Generic External Data 03/25/2024 Orders Only GENERIC EXTERNAL DATA DEPARTMENT Provider, Generic External Data 03/24/2024 Orders Only GENERIC EXTERNAL DATA DEPARTMENT Provider, Generic External Data 03/23/2024 Refill [facility] [address], [place] [address] Ethel Chase, Other chronic pain 03/23/2024 Telephone [facility] [address] [place] [address] Ethel Chase, Pre-Op 03/23/2024 Refill [facility] [address], [place] [address] Ethel Chase, Other chronic pain 03/10/2024 Refill [facility] [address], [place] [address] Ethel Chase, Other chronic pain 03/02/2024 Telephone [facility] [address] [facility] [place] [place] [address] Ethel Chase, Appointment Request 02/24/2024 Telephone C MEDICINE [address], [place] [address] Susan Guillaume, RN CGM PA for sensors 02/14/2024 Telephone [facility] [address], [place] [address] Ethel Chase, DO No Show 02/10/2024 Refill [facility] [address] [facility] [place] [address] Ethel Chase, Other chronic pain from Last [...] complication, without long-term current use of insulin ([facility]) LIPID PANEL, STANDARD Routine 11/11/2023 9:05 AM [...] Whole Blood 136(H) 60 - 115 mg/dL [facility] Comment:METER #: [id number] 04/15/2024 11:4 4 AM EST 04/15/2024 11:48 AM EST us Generic External Data Provider LAB BLOOD ORDERAB LES Final Result [facility] [address] [place], [place] [phone] * (ABNORMAL) Basic Metabolic Panel (04/15/2024 9:44 AM EST) Sodium 138 135 - 145 mmol/L [facility] Potassium 4.3 3.3 - 5.1 mmol/L [facility] Chloride 102 96 - 108 mmol/L [facility] Carbon Dioxide 24 22 - 29 mmol/L [facility] Anion Gap 16 12 - 20 [facility] Urea Nitrogen (BUN) 15 9 - 16 mg/dL [facility] Creatinine, Serum 1.10 0.5 - 1.4 mg/dL [facility] Creatinine Clr Calc Pharmacy 59.6 [facility] Comment:Provided height and weight: 160.02 cm,114.305 kg.eGFR (calculated from the MDRD study equation) and eCrCl(calculated from the Cockcroft-Gault equation) are based ondifferent parameters and may not yield comparable results.If eCrCl result is absurd, please check patient'sheight/weight. Estimated Glomerular Filt Rate 49 [facility] Comment:Chronic Kidney Disea se: Estimated GFR < 60 mL/min/1.02x4Oexjbx Kidney Disease: Estimated GFR < 15 mL/min/1.73m2 Glucose 154(H) 60 - 115 mg/dL [facility] Calcium 9.0 8.4 - 10.2 mg/dL [facility] 04/15/2024 9:44 AM EST 04/15/2024 9:54 AM EST us Generic External Data Provider LAB BLOOD ORDERAB LES Final Result [facility] [address] [place] [phone] * SARS-CoV-2 RNA, Influenza A/B, and RSV RNA, Ql NAAT (04/14/2024 10:44 AM EST) Influenza A PCR NEGATIVE Negative [facility] Influenza B PCR NEGATIVE Negative [facility] Resp Syncy Virus RNA Qual PCR NEGATIVE Negative [facility] SARS COV2 PCR NEGATIVE Negative [facility] Comment:All test results mus t be [...] use by authorized laboratories.Testing performed on the [employer] GeneXpert utilizingreal-time RT-PCR.All SARS CoV2 and positive influenza A/B results arereported to [facility]. 04/14/2024 10:4 4 AM EST 04/14/2024 10:54 AM EST us Generic External Data Provider LAB MICROBIOLOGY - GENERAL ORDERABLES Final Result Performing Organization Address City/State/[facility] Co de Phone Number [facility] [address] [place] [address] [phone] * CT Kne w/o Contrast Left (04/12/2024 4:41 PM EST) Anatomical Region Laterality Modality Lower Extremities, Knee Left Computed Tomography 04/12/2024 4:41 PM EST Narrative 04/12/2024 4:43 PM EST ? [facility] ?[address] ?[place] [address] ? CT Scan Report ? Signed ? Patient: Trish Cameron ?MR#: ?? [id number] ? : 1955 ?Acct:[id number] ? Age/Sex: 68 / F ?ADM Date: 04/12/24 ? Loc: HO.ED ? Attending Dr: ? Ordering Physician: Kierra Betts NP ?? Date of Service: 04/12/24 ?? Procedure(s): CT knee LT wo IV con ?? Accession Number(s): [id number] ? cc: Ethel Chase DO; Kierra Betts NP ? Report Number: ?? [id number]: Total DLP = ?0.00 mGy-cm ? CLINICAL HISTORY: femur fx, recent TKA revision ? CT left knee without contrast ? Comparison: CR/CA - XR KNEE LT 4V - 04/12/24 [...] DD/ 1641 ? TD/TT: 04/12/24 1641 ? Top Former: ? Procedure Note Donmelinterpreter, Image - 04/12/[address] [place] [address] [address] Scan Report Signed Patient: Trish Cameron MMR#: [id number] : 6Acct:[id number] Age/Sex: 68 / FADM Date: 04/12/24 Loc: HO.ED Attending Dr: Ordering Physician: Kierra Betts NP Date of Service: 04/12/24 Procedure(s): CT knee LT wo IV con Accession Number(s): [id number] cc: Ethel Chase DO; Kierra Betts NP Report Number: [id number]: Total DLP = 0.00 mGy-cm CLINICAL HISTORY: femur fx, recent TKA revision CT left knee without contrast Comparison: CR/CA - XR KNEE LT 4V - 04/12/24 [...] 04/12/24 1643 DD/ 1641 TD/TT: 04/12/24 1641 Top Former: us [facility] External Provider IMG CT PROCEDURES Edited Result - Final * CT Head w/o Contrast (04/12/2024 4:31 PM EST) Anatomical Region Laterality Modality Head, Neck Computed Tomogra phy 04/12/2024 4:31 PM EST Narrative 04/12/2024 4:32 PM EST ? [facility] ?[address] ?[place], [place] [address] ? [address] Scan Report ? Signed ? Patient: Trish Cameron ?MR#: ?? [id number] ? : 1955 ?Acct:[id number] ? Age/Sex: 68 / F ?ADM Date: 04/12/24 ? Loc: HO.ED ? Attending Dr: ? Ordering Physician: Kierra Betts NP ?? Date of Service: 04/12/24 ?? Procedure(s): CT head/brain wo IV con ?? Accession Number(s): [id number] ? cc: Ethel Chase DO; Kierra Betts NP ? Report Number: ?? [id number]: Total DLP = 1028.00 mGy-cm ? CLINICAL [...] DD/ 1631 ? TD/TT: 04/12/24 1631 ? Top Former: ? Procedure Note Donradhater, Image - 04/12/[address] [address] [address] Scan Report Signed Patient: Trish Cameron MMR#: [id number] : 1955cct:[id number] Age/Sex: 68 / FADM Date: 04/12/24 Loc: HO.ED Attending Dr: Ordering Physician: Kierra Betts NP Date of Service: 04/12/24 Procedure(s): CT head/brain wo IV con Accession Number(s): [id number] cc: Ethel Chase DO; Kierra Betts NP Report Number: [id number]: Total DLP = 1028.00 mGy-cm CLINICAL HISTORY: [...] 04/12/24 1631 DD/ 1631 TD/TT: 04/12/24 1631 Top Former: [facility] External Provider IMG CT PROCEDURES Edited Result - Final * US VENOUS DUPLEX LE LT (04/12/2024 3:15 PM EST) Anatomical Region Laterality Modality Abdomen Ultrasound 04/12/2024 3:15 PM EST Narrative 04/12/2024 3:17 PM EST ? [facility] ?[address] ?[place], [place] [address] ? Ultrasound Report ? Signed ? Patient: Trish Cameron ?MR#: ?? [id number] ? : 1955 ?Acct:[id number] ? Age/Sex: 68 / F ?ADM Date: 04/12/24 ? Loc: HO.ED ? Attending Dr: ? Ordering Physician: Kierra Betts NP ?? Date of Service: 04/12/24 ?? Procedure(s): US venous duplex LE LT ?? Accession Number(s): [id number] ? cc: Ethel Chase DO; Kierra Betts [...] in OV> ? 04/12/24 1517 ? DD/ 1515 ? TD/TT: 04/12/24 1515 ? Top Former: ? Procedure Note Alek Arzate - 04/12/[address] [address] Ultrasound Report Signed Patient: Dale OcTrish [facility]#: [id number] : 6Acct:[id number] Age/Sex: 68 / FADM Date: 04/12/24 Loc: HO.ED Attending Dr: Ordering Physician: Kierra Betts NP Date of Service: 04/12/24 Procedure(s): US venous duplex LE LT Accession Number(s): [id number] cc: Ethel Chase DO; Kierra Betts NP [...] Gonzalez MD in OV> 04/12/24 1517 DD/ 14 TD/TT: 04/12/241514 Top Former: [facility] External Provider IMG US PROCEDURES Edited Result - Final * XR Knee 4+ Views Left (04/12/2024 2:32 PM EST) Anatomical Region Laterality Modality Lower Extremities, Knee Left Radiogra phic Imaging 04/12/2024 2:32 PM EST Narrative 04/12/2024 2:34 PM EST ? [facility] ?[address] ?[place] [address] ?XRay Report ? Signed ? Patient: Trish Cameron ?MR#: ?? [id number] ? : 1955 ?Acct:[id number] ? Age/Sex: 68 / F ?ADM Date: 04/12/24 ? Loc: HO.ED ? Attending Dr: ? Ordering Physician: Kierra Betts NP ?? Date of Service: 04/12/24 ?? Procedure(s): XR knee LT 4V ?? Accession Number(s): [id number] ? cc: Ethel Chase DO; Kierra Betts [employer] ? CLINICAL HISTORY: fall, hx knee replacement with revision ? 4 view left knee ? Comparison: CR/CA - XR KNEE LT 2V - 03/24/24 [...] DD/ 1432 ? TD/TT: 04/12/24 1432 ? Top Former: ? Procedure Note Carito, Alek - 04/12/[address] [address] XRay Report Signed Patient: Trish Cameron MMR#: [id number] : 1955cct:[id number] Age/Sex: 68 / FADM Date: 04/12/24 Loc: .ED Attending Dr: Ordering Physician: Kierra Betts NP Date of Service: 04/12/24 Procedure(s): XR knee LT 4V Accession Number(s): [id number] cc: Ethel Chase DO; Kierra Betts NP CLINICAL HISTORY: fall, hx knee replacement with revision 4 view left knee Comparison: CR/CA - XR KNEE LT 2V - 03/24/24 [...] OV> 04/12/24 1433 DD/ 1432 TD/TT: 04/12/24 143 Top Former: [facility] External Provider IMG XR PROCEDURES Edited Result - Final * Blood Culture (Second) (04/12/2024 1:55 PM EST) Blood Venous blood specimen / Unknown 04/12/2024 1:55 PM EST 04/12/2024 2:03 PM EST Comment:Blood Narrative [facility] - 04/17/2024 4:03 PM EST Blood Culture (Second) No growth after 5 days. Specimen Source: Blood Generic External Data Provider LAB MICROBIOLOGY - GENERAL ORDERABLES Final Result Performing Organization Address [facility] Co de Phone Number [facility] [address] [place] [phone] * Blood Culture (First) (04/12/2024 1:53 PM EST) Blood Venous blood specimen / Unknown 04/12/2024 1:53 PM EST 04/12/2024 2:00 PM EST Comment:Blood Narrative [facility] - 04/17/2024 4:01 PM EST Blood Culture (First) No growth after 5 days. Specimen Source: Blood Generic External Data Provider LAB MICROBIOLOGY - GENERAL ORDERABLES Final Result Performing Organization Address [facility] de Phone Number [facility] [address] [place] [phone] * (ABNORMAL) CBC auto differential (04/12/2024 1:53 PM EST) Only the most recent of3 resultswithin the time period is included. White Blood Count 11.3(H) 4.8 - 10.8 X10*3/uL [facility] Red Blood Count 3.33(L) 4.20 - 5.50 X10*6/uL [facility] Hemoglobin 9.1(L) 12.0 - 16.0 g/dl [facility] Hematocrit 28.2(L) 37.0 - 47.0 % [facility] Mean Corpuscular Volume 84.7 80.0 - 98.0 fL [facility] Mean Corpuscular Hemoglobin 27.3 27.0 - 33.0 pg [facility] Mean Corpuscular HGB Conc 32.3 31.0 - 35.0 g/dl [facility] Red Cell Distribution Width 14.0 11.0 - 16.0 % [facility] Platelet Count 411(H) 160 - 400 X10*3/uL [facility] Mean Platelet Volume 9.0(L) 9.4 - 12.3 fL [facility] Neutrophils Percent Auto 72.1 45 - 73 % [facility] Imm Gran Pct Auto 0.6(H) 0.0 - 0.4 % [facility] Lymphocytes Percent Auto 18.6(L) 20 - 40 % [facility] Monocytes Percent Auto 7.1 2 - 11 % [facility] Eosinophils Percent Auto 1.2 0 - 4 % [facility] Basophils Percent Auto 0.4 0 - 2 % [facility] NRBC Pct Auto 0.0 0.0 - 0.2 /100WBC [facility] Neutrophils Absolute Auto 8.2 2.0 - 8.3 x10*3/uL [facility] Imm Gran Abs Auto 0.07(H) 0.00 - 0.03 X10*3/uL [facility] Lymphocytes Absolute Auto 2.1 1.2 - 4.9 X10*3/uL [facility] Monocytes Absolute Auto 0.8 0.1 - 1.2 X10*3/uL [facility] Eosinophils Absolute Auto 0.1 0.0 - 0.4 X10*3/uL [facility] Basophils Absolute Auto 0.1 0.0 - 0.2 X10*3/uL [facility] NRBC Abs Auto 0.000 0.0 - 0.012 X10*3/uL [facility] 04/12/2024 1:53 PM EST 04/12/2024 2:00 PM EST us Generic External Data Provider LAB BLOOD ORDERAB LES Final Result [facility] [address] [place] [address] [phone] * Partial Thromboplastin Time, Activated (APTT) (04/12/2024 1:53 PM EST) Partial Thromboplastin Time 31.7 26.0 - 36.8 SEC [facility] Comment:For information rega rding the monitoring of direct thrombininhibitors, please refer to Pharmacy. 04/12/2024 1:53 PM EST 04/12/2024 2:00 PM EST Generic External Data Provider LAB BLOOD ORDERAB LES Final Result Performing Organization Address [facility] Co de Phone Number [facility] [address] [place] [phone] * (ABNORMAL) Sed Rate by Modified Westergren (04/12/2024 1:53 PM EST) Erythrocyte Sedimentation Rate 100(H) 0 - 20 MM/HR [facility] Comment:Patients with polycy themia and many hemoglobin abnormalitiesmay have depressed sed rates whereas patients with anemiamay have elevated sed rates. 04/12/2024 1:53 PM EST 04/12/2024 2:00 PM EST [facility] External Data Provider LAB BLOOD ORDERAB LES Final Result Performing Organization Address [facility] [place] [facility] de Phone Number [facility] [address] [place] [phone] * (ABNORMAL) Prothrombin Time-INR (04/12/2024 1:53 PM EST) Prothrombin Time 12.6(H) 10.9 - 12.4 SEC [facility] INTERNATIONAL NORM RATIO 1.1 0.9 - 1.1 [facility] Comment:INTERNATIONAL NORMAL IZED RATIO (INR) REFERENCE [...] ORDERAB LES Final Result Performing Organization Address [facility] de Phone Number [facility] [address] [place] [phone] * (ABNORMAL) C-reactive Protein (04/12/2024 1:53 PM EST) Pathologist [facility] C Reactive Protein 11.79(H) < or = 0.50 mg/dL [facility] 04/12/2024 1:53 PM EST 04/12/2024 2:00 PM EST us Generic External Data Provider LAB BLOOD ORDERAB LES Final Result Performing Organization Address [facility] Phone Number [facility] [address] [place] [phone] * Lactic Acid (04/12/2024 1:53 PM EST) Pathologist [facility] Lactic Acid 2.0 0.5 - 2.0 mmol/L [facility] 04/12/2024 1:53 PM EST 04/12/2024 2:00 PM EST Generic External Data Provider LAB BLOOD ORDERAB LES Final Result Performing Organization Address [facility] de Phone Number [facility] [address] [place] [phone] * (ABNORMAL) Comprehensive Metabolic Panel (04/12/2024 1:53 PM EST) Pathologist [facility] Sodium 136 135 - 145 mmol/L [facility] Potassium 5.3(H) 3.3 - 5.1 mmol/L [facility] Chloride 101 96 - 108 mmol/L [facility] Carbon Dioxide 25 22 - 29 mmol/L [facility] Anion Gap 15 12 - 20 [facility] Urea Nitrogen (BUN) 18(H) 9 - 16 mg/dL [facility] Creatinine, Serum 1.45(H) 0.5 - 1.4 mg/dL [facility] Creatinine Clr Calc Pharmacy 45.2 [facility] Comment:Provided height and weight: 160.02 cm,114.305 kg.eGFR (calculated from the MDRD study equation) and eCrCl(calculated from the Cockcroft-Gault equation) are based ondifferent parameters and may not yield comparable results.If eCrCl result is absurd, please check patient'sheight/weight. Estimated Glomerular Filt Rate 36 [facility] Comment:Chronic Kidney Disea se: Estimated GFR < 60 mL/min/1.92b0Tssrto Kidney Disease: Estimated GFR < 15 mL/min/1.73m2 Glucose 148(H) 60 - 115 mg/dL [facility] Calcium 10.0 8.4 - 10.2 mg/dL [facility] Bilirubin, Total 0.3 0.0 - 1.0 mg/dL [facility] Aspartate Amino Transferase 45(H) 5 - 31 U/L [facility] Alanine Aminotransferase 29 0 - 31 U/L [facility] Total Protein 8.2(H) 6.5 - 8.0 g/dL [facility] Albumin Level 3.7 3.5 - 5.0 g/dL [facility] Alkaline Phosphatase 202(H) 39 - 117 U/L [facility] 04/12/2024 1:53 PM EST 04/12/2024 2:00 PM EST us Generic External Data Provider LAB BLOOD ORDERAB LES Final Result [facility] [address] [place] [phone] [phone] * (ABNORMAL) Bacterial Vaginosis (04/07/2024 10:22 AM EST) TRICHOMONAS VAGINALIS DETECTION BY PCR NOT DETECTED Not Detect [facility] BACTERIAL VAGINOSIS DETECTION BY PCR NEGATIVE Negative [facility] Comment:The BV organism targ ets of [...] GROUP DETECTION BY PCR DETECTED(A) Not Detect [facility] Kayy glab krusei PCR NOT DETECTED Not Detect [facility] 04/07/2024 10:2 2 AM EST 04/07/2024 3:47 PM EST us Generic External Data Provider LAB MICROBIOLOGY - GENERAL ORDERABLES Final Result [facility] [address] [place] [phone] * (ABNORMAL) Basic Metabolic Panel, Fasting (03/26/2024 5:51 AM EST) Only the most recent of2 resultswithin the time period is included. Sodium 133(L) 135 - 145 mmol/L [facility] Potassium 4.1 3.3 - 5.1 mmol/L [facility] Chloride 101 96 - 108 mmol/L [facility] Carbon Dioxide 24 22 - 29 mmol/L [facility] Anion Gap 12 12 - 20 [facility] Urea Nitrogen (BUN) 15 9 - 16 mg/dL [facility] Creatinine, Serum 0.85 0.5 - 1.4 mg/dL [facility] Creatinine Clr Calc Pharmacy 75.9 [facility] Comment:Provided height and weight: 157.48 cm,114.8 kg.eGFR (calculated from the MDRD study equation) and eCrCl(calculated from the Cockcroft-Gault equation) are based ondifferent parameters and may not yield comparable results.If eCrCl result is absurd, please check patient'sheight/weight. Estimated Glomerular Filt Rate >60 [facility] Comment:Chronic Kidney Disea se: Estimated GFR < 60 mL/min/1.63o2Cxwzpy Kidney Disease: Estimated GFR < 15 mL/min/1.73m2 Glucose Fasting 192(H) 60 - 99 mg/dL [facility] Comment:A fasting glucose of 126 mg/dl or greater on more than oneoccasion is considered diagnostic of diabetes. Calcium 8.8 8.4 - 10.2 mg/dL [facility] 03/26/2024 5:51 AM EST 03/26/2024 6:30 AM EST us Generic External Data Provider LAB BLOOD ORDERAB LES Final Result Performing Organization Address City/State/[facility] Co de Phone Number [facility] [address] [place] [phone] * XR Knee 1-2 Views Left (03/24/2024 6:30 PM EST) Anatomical Region Laterality Modality Lower Extremities, Knee Left Radiogra phic Imaging 03/24/2024 6:30 PM EST Narrative 03/24/2024 6:32 PM EST ? [facility] ?[address] ?[place] [address] ?XRay Report ? Signed ? Patient: Trish Cameron ?MR#: ?? [id number] ? : 1955 ?Acct:[id number] ? Age/Sex: 68 / F ?ADM Date: 03/24/24 ? Loc: HO.S3 ?375-1 ? Attending Dr: Khushi Mathias PA-C ? Ordering Physician: Khushi Mathias PA-C ?? Date of Service: 03/24/24 ?? Procedure(s): XR knee LT 2V ?? Accession Number(s): [id number] ? cc: Ethel Chase DO; Khushi Mathias [...] DD/ 1830 ? TD/TT: 03/24/24 1830 ? Top Former: ? Procedure Note [place], Image - 03/24/2024 [place] [address] XRay Report Signed Patient: Trish Cameron [facility]#: [id number] : 1955cct:[id number] Age/Sex: 68 / FADM Date: 03/24/24 Loc: HO.S3 375-[address]: Khushi Mathias PA-C Ordering Physician: Khushi Mathias PA-C Date of Service: 03/24/24 Procedure(s): XR knee LT 2V Accession Number(s): [id number] cc: Ethel Chase DO; Khushi Mathias PA-C [...] in OV> 03/24/241830 DD/ 29 TD/TT: 03/24/241829 Top Former: [facility] External Provider IMG XR PROCEDURES Final Result * Hemoglobin and Hematocrit (03/24/2024 10:53 AM EST) Hemoglobin 12.6 12.0 - 16.0 g/dl [facility] Hematocrit 38.6 37.0 - 47.0 % [facility] 03/24/2024 10:5 3 AM EST 03/24/2024 11:05 AM EST Generic External Data Provider LAB BLOOD ORDERAB LES Final Result Performing Organization Address City/State/[facility] Co de Phone Number [facility] [address] [place] [phone] * (ABNORMAL) POCT glycosylated hemoglobin (Hgb A1c) (01/29/2024 10:35 AM EST) Hemoglobin A1C 7.1(A) 4.0 - 6.0 % QC Media Lot # [id number] Lot# Expiration Date Blood Capillary blood specimen / Unknown 01/29/2024 10:35 AM EST Ethel Chase DO POINT OF CARE TEST ENTER/MARGARITA T ORDERABLES Final Result * Lipid Panel, Standard (11/11/2023 9:05 AM EDT) Triglycerides 128 <150 mg/dL [facility] Comment:Desirable Triglyceri de: less than 150 mg/dLBorderline High Triglyceride 150-199 mg/dLHigh Triglyceride: 200-499 mg/dLVery High Triglyceride: greater than or equal to 5OO mg/dL Cholesterol 108 <200 mg/dL [facility] Comment:Desirable Cholestero l: less than 200 mg/dLBorderline High Cholesterol: 200-239 mg/dLHigh Cholesterol: greater than 239 mg/dL LDL Cholesterol Calculated 42 <100 mg/dL [facility] Comment:Desirable LDL: less than 100 mg/dLNear Optimal/Above Optimal LDL: 110- 129 mg/dLBorderline High LDL: 130-159 mg/dLHigh LDL: 160-189 mg/dLVery High LDL: greater than or equal to 190 mg/dL HDL Cholesterol 41 >40 mg/dL [facility] Comment:Desirable HDL: great er than 40 mg/dL Note: This HDL assay may give artificially low results in patients with liver disease. Blood Venous blood specimen / Unknown 11/11/2023 9:05 AM EDT 11/11/2023 11:33 AM EDT us Ethel Chase DO LAB BLOOD ORDERABLES Final R esult [facility] [address] [place] [address] [phone] * BI Mammogram Screening Tomosynthesis Bilateral (08/06/2023 11:15 AM EDT) Anatomical Region Laterality Modality Breast Bilateral Mammography 08/06/2023 11:1 5 AM EDT Narrative 09/05/2023 9:40 AM EDT ? [facility] ? [address] ?[place] [address] ? Mammography Report ? Signed ? Patient: Dale Renae,Trish Duarte ?MR#: ?? [id number] ? : 1955 ?Acct:[id number] ? Age/Sex: 67 / F ?ADM Date: 08/06/23 ? Loc: HO.MAMMO ? Attending Dr: Ethel Chase DO ? Ordering Physician: Ethel Chase DO ?Results: 1N ?? egative ? Date of Service: 08/06/23 ?Follow Up: 1 Year From Orig ?? inal Mammogram ? Procedure(s): MM tomosynthesis screening BI ?? Accession Number(s): [id number] ? cc: Ethel Chase DO ? EXAMINATION: [...] 0936 ? DD/ 1115 ? TD/TT: ? Top Former: ? Procedure Note Donotuseinterpreter, Image - 09/05/2023 [facility] [address] [place], [place] [address] Mammography Report Signed Patient: Trish Cameron MMR#: [id number] : 6Acct:[id number] Age/Sex: 67 / FADM Date: 08/06/23 Loc: HO.MAMMO Attending Dr: Ethel Chase DO Ordering Physician: Ethel Chaseults: 1N egative Date of Service: 08/06/23Follow Up: 1 Year From Orig inal Mammogram Procedure(s): MM tomosynthesis screening BI Accession Number(s): [id number] cc: Ethel Chase DO EXAMINATION: MM SCREENING [...] in OV> 09/05/23 0936 DD/ 1115 TD/TT: Top Former: Ethel Chase DO IMG BI PROCEDURES Final Resu lt * Albumin, Random Urine W/Creatinine (03/13/2023 9:38 AM EST) Creatinine, Urine 131.57 mg/dL [facility] Microalbumin Urine 6.0 mg/L [facility] Microalbum Creatinine Ratio Ur 4.5 <30 ug/mg cr [facility] Comment:Albumin/Creatinine R atio Reference Ranges: Normal: < 30 ug/mg creatinine Microalbuminuria: 30 - 300 ug/mg creatinineClinical Albuminuria: > 300 ug/mg creatinine 03/13/2023 9:38 AM EST 03/13/2023 11:25 AM EST Ethel Chase DO LAB URINE ORDERABLES Final R esult Performing Organization Address City/[facility]/ZIP Co de Phone Number [facility] [address] [place] [address] [phone] * HEPATITIS C ANTIBODY RFLX (10/31/2019 9:40 AM EDT) Pathologist [facility] HEPATITIS C ANTIBODY NONREACTIVE NONREACTIVE [facility] Comment: Antibodies to HCV not detected; does not exclude early acute HCV infection. 10/31/2019 9:40 AM EDT Ethel Chase DO HISTORICAL/NON ORDERABLE LAB S Final Result Performing Organization Address City/[facility]/ZIP Co de Phone Number [facility] [address] [place] [address], * Colonoscopy (03/03/2019) Pathologist [facility] Colonoscopy follow up in 5 years Historical Provider HEALTH MAINTENANCE Edited Result - Final from Last 3 Months or Most Recently Relevant to Health Maintenance [place] [address] [place] [address] - [place] Care Teams Machine Design Checker Relationship Specialty Start Date End Date Ethel Chase DO [address] [place] [address] PCP - General Family Medicine 10/12/13 Vaishnavi Laird PharmD [address] [place] [address] Pharmacist Internal Medicine 02/07/23
== END 2024-05-07 09:17 | disposition home or self-care (01) ==
LOC: HO.HOSX 09:16
PROVIDERS: Visit Provider Physician Assistant
DX: M97.12XD Periprosthetic fracture around internal prosthetic left knee joint, subsequent encounter (principal)
CPT/HCPCS: 73552; 99212

== ENCOUNTER 2024-05-07 11:06 | Outpatient (AMB) | payer OTHER, SELFPAY ==
--- NOTE | 2024-05-07 11:22 | MHC.OFFVIS ---
Intake Visit Reasons: 2wk f/u LT rev TKA/femur fx w xrays Intake Note: Trish is a 68 year old female who presents today for a post operative appointment s/p Left Total Knee Arthroplasty Revision 03/24/2024. Patient took a fall on 04/22/2023 resulting in a periprosthetic fracture. Allergies Iodinated Contrast Media [IV CONTRAST] Allergy (Severe, Verified 04/12/24 13:26) itching, hives morphine [Morphine] Allergy (Intermediate, Verified 04/12/24 13:26) ITCHING, rash tramadol [Ultram] Allergy (Intermediate, Verified 04/12/24 13:26) rash, itching Medication List - Last Reconciled 05/07/24 by Khushi Mathias PA-C acetaminophen 650 mg (2 x 325 mg) PO Q6H PRN 30 days albuterol sulfate 90 mcg/actuation 2 puffs inhalation Q6H PRN aripiprazole 10 mg PO QAM atorvastatin 20 mg PO BEDTIME baclofen 10 mg PO TID PRN blood sugar diagnostic (FreeStyle Lite Strips) As directed celecoxib 200 mg PO BID 30 days cholecalciferol (vitamin D3) 50 mcg PO QPM clotrimazole-betamethasone 1-0.05 % 1 appl topical BID 7 days docusate sodium 100 mg PO BID 30 days enoxaparin 40 mg (0.4 mL) subcut Q24H 42 days fluticasone propion-salmeterol 115-21 mcg/actuation (Advair HFA) 2 puffs inhalation BID PRN fluticasone propionate 50 mcg/actuation 1 spray intranasal BID gabapentin 600 mg PO BID insulin degludec (Tresiba FlexTouch U-100 insulin) 32 units subcut DAILY isosorbide mononitrate ER 30 mg PO DAILY lancets (TRUEplus Lancets) As directed latanoprost 0.005% 1 drp ophthalmic (eye) BEDTIME levothyroxine 112 mcg PO DAILY lisinopril 20 mg PO QPM loratadine 10 mg PO QAM lorazepam 1 mg PO BID PRN metformin 500 mg PO BID metoprolol succinate ER 25 mg PO QAM 90 days mirtazapine 15 mg PO BEDTIME ixbqlmkofdjw-ndqh-rpheh acid 18-400 mg-mcg (Tab-A-Rito Multivitamin w-iron) 1 tab PO QAM oxycodone 5 mg PO Q6H PRN oxycodone 5 mg PO Q6H PRN 7 days pantoprazole 40 mg PO QAM prazosin 4 mg PO BEDTIME semaglutide (Ozempic) 2 mg subcut MO venlafaxine ER 150 mg PO QAM venlafaxine ER 75 mg PO QAM walker Folding Front wheeled walker DURATIO 99 DAYS zolpidem 10 mg PO BEDTIME HPI HPI 2wk f/u LT rev TKA/femur fx w xrays: Details: 68-year-old female returns to the office today for a follow-up left femur fracture status post revision left total knee 03/24/[address] Oro. She continues to remain nonweightbearing left lower extremity. She states she is working with physical therapy on range of motion. [facility] Medical History Arthritis Hypothyroidism Renal calculi Environmental and seasonal allergies Nocturnal hypoxia Abnormal nuclear stress test Diabetes HTN (hypertension) Cardiomyopathy Bilateral nephrolithiasis Retention of urine Acid reflux Surgical History Status post total left knee replacement History of total left knee replacement (TKR) Hx of lithotripsy (2018) History of total right knee replacement (2011) Hx of repair of right rotator cuff (2013) History of cystoscopy Hx of tubal ligation History of hand surgery Family History Brother Breast cancer Social History Household Members: Spouse Household Members Other:: lives w/her grandson Housing: House Are you a primary home health care case manager to a significant other at home: Yes (grandson 17 yrs) Do you presently have visiting nurse or other home services: No 75 years or older and lives alone: No Alcohol intake: current Alcohol intake frequency: does not drink Comment: post op left knee, WBAT Patient Tobacco Use Status: Never used Tobacco Advance Directives Date on File: 04/14/24 service: No Current occupational status: disabled Current occupation: rt handed Gender identity: Female Female Reproductive History Menstrual Age of Menarche: 12 Review of Systems Const All systems reviewed & are unremarkable except as noted in HPI and below Physical Exam Extrem Other: Left knee incision is well healed. Steri-Strips intact. No tenderness to palpation over the knee. She has full extension. Flexion to about 30 degrees passively. Calf supple nontender neurovascularly intact. Results Reviewed Results Reviewed: X-rays of the left knee obtained in the office today reviewed by me show a periprosthetic left femur fracture. Prosthesis appears to be intact. Assessment & Plan Assessment & Plan (1) Periprosthetic fracture around internal prosthetic left knee joint, initial encounter: Code(s): M97.12XA - Periprosthetic fracture around internal prosthetic left knee joint, initial encounter Category: Medical Plan: Imaging appears to be stable at this time when compared to previous images. We will continue nonweightbearing left lower extremity. She can work on gentle range of motion 0-90 degrees. Upper body conditioning. I will see her back in 4 weeks with x-rays, sooner if needed Orders: Orders XR femur LT 2V Today M79.606 - Pain in leg, unspecified Coding Level of Care Code Global (23108) Diagnoses Periprosthetic fracture around internal prosthetic left knee joint, initial encounter M97.12XA
--- OUTSIDE RECORDS SUMMARY | 2024-05-07 14:16 | XMS_ITS | Encounter Summary ---
Author Organization [facility] [address] Address [address] [place] [address] Care Team Providers Care Mechanical Assembly Name Role Phone Matias Bowling MD Primary Care Provider [phone] Encounter Details Date Type Department Care Team (Late st Contact Info) Description 04/30/2024 Lab Requisition [facility] - Main Lab [address] [place] [address] Matias Bowling MD [address] [place] [address] 204 [facility] [phone] Essential (primary) hypertension Social History Tobacco [...] Associated Diagnosis Comments COMPLETE BLOOD COUNT Routine 05/01/2024 4:57 AM EST Essential (primary) hypertension BASIC METABOLIC PANEL Routine 05/01/2024 4:57 AM EST Essential (primary) hypertension documented in this encounter Results * (ABNORMAL) Basic metabolic panel (05/01/2024 4:57 AM EST) Sodium 142 133 - 145 mmol/L LAB CHEMISTRY METHOD 05/01/2024 12:26 PM EST [facility] Potassium 4.7 3.5 - 5.5 mmol/L LAB CHEMISTRY METHOD 05/01/2024 12:26 PM EST [facility] Chloride 110 96 - 110 mmol/L LAB CHEMISTRY METHOD 05/01/2024 12:26 PM [facility] CO2 21 21 - 32 mmol/L LAB CHEMISTRY METHOD 05/01/2024 12:26 PM [facility] Anion Gap 11 3 - 11 LAB CHEMISTRY METHOD 05/01/2024 12:26 PM [facility] Glucose 138(H) 70 - 100 mg/dL LAB CHEMISTRY METHOD 05/01/2024 12:26 PM [facility] BUN 18 5 - 25 mg/dL LAB CHEMISTRY METHOD 05/01/2024 12:26 PM [facility] Creatinine 1.07 0.50 - 1.10 mg/dL LAB CHEMISTRY METHOD 05/01/2024 12:26 PM [facility] eGFR 57(L) >=60 mL/min/1. 73m2 LAB CHEMISTRY METHOD 05/01/2024 12:26 PM [facility] Comment:Calculation based on the??Chronic Kidney Disease Epidemiology Collaboration (CKD-EPI) equation refit??without adjustment for race. BUN/Creatinine Ratio 16.8 LAB CHEMISTRY METHOD 05/01/2024 12:26 PM [facility] Calcium 9.3 8.5 - 10.5 mg/dL LAB CHEMISTRY METHOD 05/01/2024 12:26 PM [facility] Blood Venous blood specimen / Unknown Venipuncture / Unknown 05/01/2024 4:57 AM EST 05/01/2024 11:00 AM EST us Matias Bowling MD LAB BLOOD ORDERABLES Final Resul t [facility] [address] [place] [address], [place] [phone] * (ABNORMAL) Complete blood count (05/01/2024 4:57 AM EST) WBC 9.9 4.8 - 10.8 K/mcL LAB HEMETOLOGY METHOD 05/01/2024 11:34 AM [facility] RBC 3.50(L) 3.80 - 4.80 M/mcL LAB HEMETOLOGY METHOD 05/01/2024 11:34 AM [facility] Hemoglobin 9.3(L) 11.5 - 16.0 g/dL LAB HEMETOLOGY METHOD 05/01/2024 11:34 AM [facility] Hematocrit 31.7(L) 35.0 - 47.0 % LAB HEMETOLOGY METHOD 05/01/2024 11:34 AM [facility] MCV 90.3 79.0 - 98.0 FL LAB HEMETOLOGY METHOD 05/01/2024 11:34 AM [facility] MCH 26.5(L) 27.0 - 32.0 pcg LAB HEMETOLOGY METHOD 05/01/2024 11:34 AM [facility] MCHC 29.3(L) 32.0 - 37.0 g/dL LAB HEMETOLOGY METHOD 05/01/2024 11:34 AM [facility] RDW 14.7 11.0 - 15.0 % LAB HEMETOLOGY METHOD 05/01/2024 11:34 AM [facility] Platelets 312 130 - 400 K/mcL LAB HEMETOLOGY METHOD 05/01/2024 11:34 AM [facility] MPV 10.3 7.0 - 11.0 FL LAB HEMETOLOGY METHOD 05/01/2024 11:34 AM [facility] NRBC 0.0 <1.0 % LAB HEMETOLOGY METHOD 05/01/2024 11:34 AM [facility] NRBC Absolute 0.00 <0.10 K/mcL LAB HEMETOLOGY METHOD 05/01/2024 11:34 AM [facility] Blood Venous blood specimen / Unknown Venipuncture / Unknown 05/01/2024 4:57 AM EST 05/01/2024 11:00 AM EST us Matias Bowling MD LAB BLOOD ORDERABLES Final Resul t [facility] [address] [place] [address], documented in this encounter Visit Diagnoses Diagnosis Essential (primary) hypertension Unspecified essential hypertension documented in this encounter Additional Health Concerns Infection Onset Date Last Indicated Resolved Time Gastrointestinal Rule-Out 04/28/2024 04/27/2024 documented as of this encounter Care Teams Mechanical Assembly Relationship Specialty Start Date End Date Matias Bowling MD [address] [place] [address] [place] [address] PCP - General Family Medicine 04/16/24 documented as of this encounter
--- OUTSIDE RECORDS SUMMARY | 2024-05-07 14:16 | XMS_ITS | Encounter Summary ---
Author Organization [facility] Address [address] [place] [address] Care Team Providers Care Assistant Professor Of Physics Name Role Phone Matias Bowling MD Primary Care Provider [phone] Encounter Details Date Type Department Care Team (Late st Contact Info) Description 05/06/2024 Lab Requisition [facility] - Main Lab [address] [place] [address] Matias Bowling MD [address] [place] [address] 204 [facility] [address] Essential (primary) hypertension Social History [...] Associated Diagnosis Comments COMPLETE BLOOD COUNT Routine 05/07/2024 5:12 AM EDT Essential (primary) hypertension COMPREHENSIVE METABOLIC PANEL Routine 05/07/2024 5:12 AM EDT Essential (primary) hypertension documented in this encounter Results * (ABNORMAL) Comprehensive metabolic panel (05/07/2024 5:12 AM EDT) Sodium 141 133 - 145 mmol/L LAB CHEMISTRY METHOD 05/07/2024 10:37 AM EDT [facility] Potassium 4.9 3.5 - 5.5 mmol/L LAB CHEMISTRY METHOD 05/07/2024 10:37 AM EDT [facility] Chloride 111(H) 96 - 110 mmol/L LAB CHEMISTRY METHOD 05/07/2024 10:37 AM [facility] CO2 22 21 - 32 mmol/L LAB CHEMISTRY METHOD 05/07/2024 10:37 AM [facility] Anion Gap 8 3 - 11 LAB CHEMISTRY METHOD 05/07/2024 10:37 AM [facility] Glucose 121(H) 70 - 100 mg/dL LAB CHEMISTRY METHOD 05/07/2024 10:37 AM [facility] BUN 15 5 - 25 mg/dL LAB CHEMISTRY METHOD 05/07/2024 10:37 AM [facility] Creatinine 1.02 0.50 - 1.10 mg/dL LAB CHEMISTRY METHOD 05/07/2024 10:37 AM [facility] eGFR 60 >=60 mL/min/1. 73m2 LAB CHEMISTRY METHOD 05/07/2024 10:37 AM [facility] Comment:Calculation based on the??Chronic Kidney Disease Epidemiology Collaboration (CKD-EPI) equation refit??without adjustment for race. BUN/Creatinine Ratio 14.7 LAB CHEMISTRY METHOD 05/07/2024 10:37 AM [facility] Calcium 9.1 8.5 - 10.5 mg/dL LAB CHEMISTRY METHOD 05/07/2024 10:37 AM [facility] AST (SGOT) 15 10 - 42 unit/L LAB CHEMISTRY METHOD 05/07/2024 10:37 AM [facility] ALT (SGPT) 20 10 - 60 unit/L LAB CHEMISTRY METHOD 05/07/2024 10:37 AM [facility] Alkaline Phosphatase 161(H) 42 - 121 unit/L LAB CHEMISTRY METHOD 05/07/2024 10:37 AM [facility] Total Protein 6.4 6.0 - 8.0 g/dL LAB CHEMISTRY METHOD 05/07/2024 10:37 AM EDT [facility] Albumin 3.1(L) 3.2 - 5.0 g/dL LAB CHEMISTRY METHOD 05/07/2024 10:37 AM EDT [facility] Total Bilirubin 0.2 0.0 - 1.4 mg/dL LAB CHEMISTRY METHOD 05/07/2024 10:37 AM EDT [facility] Blood Venous blood specimen / Unknown Venipuncture / Unknown 05/07/2024 5:12 AM EDT 05/07/2024 8:53 AM EDT us Matias Bowling MD LAB BLOOD ORDERABLES Final Resul t [facility] [address] [place] [address], * (ABNORMAL) Complete blood count (05/07/2024 5:12 AM EDT) WBC 9.6 4.8 - 10.8 K/mcL LAB HEMETOLOGY METHOD 05/07/2024 10:09 AM [facility] RBC 3.60(L) 3.80 - 4.80 M/mcL LAB HEMETOLOGY METHOD 05/07/2024 10:09 AM [facility] Hemoglobin 9.4(L) 11.5 - 16.0 g/dL LAB HEMETOLOGY METHOD 05/07/2024 10:09 AM T [facility] Hematocrit 31.5(L) 35.0 - 47.0 % LAB HEMETOLOGY METHOD 05/07/2024 10:09 AM T [facility] MCV 88.2 79.0 - 98.0 FL LAB HEMETOLOGY METHOD 05/07/2024 10:09 AM [facility] MCH 26.3(L) 27.0 - 32.0 pcg LAB HEMETOLOGY METHOD 05/07/2024 10:09 AM EDT [facility] MCHC 29.8(L) 32.0 - 37.0 g/dL LAB HEMETOLOGY METHOD 05/07/2024 10:09 AM EDT [facility] RDW 14.6 11.0 - 15.0 % LAB HEMETOLOGY METHOD 05/07/2024 10:09 AM EDT [facility] Platelets 303 130 - 400 K/mcL LAB HEMETOLOGY METHOD 05/07/2024 10:09 AM EDT [facility] MPV 10.1 7.0 - 11.0 FL LAB HEMETOLOGY METHOD 05/07/2024 10:09 AM EDT [facility] NRBC 0.0 <1.0 % LAB HEMETOLOGY METHOD 05/07/2024 10:09 AM EDT [facility] NRBC Absolute 0.00 <0.10 K/mcL LAB HEMETOLOGY METHOD 05/07/2024 10:09 AM EDT [facility] Blood Venous blood specimen / Unknown Venipuncture / Unknown 05/07/2024 5:12 AM EDT 05/07/2024 8:53 AM EDT us Matias Bowling MD LAB BLOOD ORDERABLES Final Resul t [facility] [address] [place] [address], documented in this encounter Visit Diagnoses Diagnosis Essential (primary) hypertension Unspecified essential hypertension documented in this encounter Additional Health Concerns Infection Onset Date Last Indicated Resolved Time Gastrointestinal Rule-Out 04/28/2024 04/27/2024 documented as of this encounter Care Teams Assistant Professor Of Physics Relationship Specialty Start Date End Date Matias Bowling MD 38 [facility] [address] [place] [address] PCP - General Family Medicine 04/16/24 documented as of this encounter
--- OUTSIDE RECORDS SUMMARY | 2024-05-07 14:16 | XMS_ITS | Clinical Summary ---
Author Organization [address] [facility] Address [address] [place] [address] Phone Care Team Providers Care Brands Editor Name Role Phone Matias Bowling MD Primary Care Provider [phone] Encounters Date Type Department Care Team Description 05/06/2024 Lab Requisition [facility] [address] [place] [phone] Matias Bowling MD Essential (primary) hypertension 04/30/2024 Lab Requisition [facility] [address] [place] [phone] Matias Bowling MD Essential (primary) hypertension 04/29/2024 Lab Requisition [facility] Lab [address] [place] [phone] Matias Bowling MD Essential (primary) hypertension 04/29/2024 Lab Requisition [facility] Lab [address] [place] [phone] Matias Bowling MD Hyperlipidemia, unspecified; 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 classified elsewhere (CMS/HCC) 04/28/2024 Lab Requisition [facility] [address] [place] [phone] Matias Bowling MD Diarrhea, unspecified 04/23/2024 Lab Requisition [facility] [address] [place] [phone] Matias Bowling MD Essential (primary) hypertension 04/16/2024 Lab Requisition [facility] [address] [place] [address] Matias Bowling MD Essential (primary) [...] of 2) 12/29/2005 COVID-19 Vaccine (1 - 2023- season) 2023 Influenza Vaccine (#1) 2023 Cholesterol Screening (Lipid Panel) 04/16/2024 Colorectal Cancer Screening: Colonoscopy 04/16/2024 Depression Screening 04/16/2024 Falls Risk Assessment 04/16/2024 Hepatitis C Screening 04/16/2024 Medicare Annual Wellness Visit 04/16/2024 Osteoporosis Screening (Bone Density Screening) 04/16/2024 Social Influencers of Health Screening 04/16/2024 Hypertension/CHF/CAD Annual BMP Blood Test 05/01/2025 05/07/2024, 05/01/2024, 04/29/2024, Additional history exists RSV Immunization Patients 60+ Years Old (1 - 1-dose 75+ series) [...] 20 months Aged Out No longer eligible based on patient's age to complete this topic Varicella Vaccines Aged Out No longer eligible based on patient's age to complete this topic Procedures Procedure Name Priority Date/Time Associated Diagnosis Comments COMPREHENSIVE METABOLIC PANEL Routine 05/07/2024 5:12 AM EDT Essential (primary) hypertension COMPLETE BLOOD COUNT Routine 05/07/2024 5:12 AM EDT Essential (primary) hypertension BASIC METABOLIC PANEL Routine 05/01/2024 4:57 AM EST Essential (primary) hypertension COMPLETE BLOOD COUNT Routine 05/01/2024 4:57 AM EST Essential (primary) hypertension COMPREHENSIVE METABOLIC PANEL Routine 04/29/2024 6:35 AM [...] Months Results * (ABNORMAL) Complete blood count (05/07/2024 5:12 AM EDT) Only the most recent of5 resultswithin the time period is included. WBC 9.6 4.8 - 10.8 K/mcL LAB HEMETOLOGY METHOD 05/07/2024 10:09 AM EDT [facility] RBC 3.60(L) 3.80 - 4.80 M/mcL LAB HEMETOLOGY METHOD 05/07/2024 10:09 AM [facility] Hemoglobin 9.4(L) 11.5 - 16.0 g/dL LAB HEMETOLOGY METHOD 05/07/2024 10:09 AM [facility] Hematocrit 31.5(L) 35.0 - 47.0 % LAB HEMETOLOGY METHOD 05/07/2024 10:09 AM [facility] MCV 88.2 79.0 - 98.0 FL LAB HEMETOLOGY METHOD 05/07/2024 10:09 AM [facility] MCH 26.3(L) 27.0 - 32.0 pcg LAB HEMETOLOGY METHOD 05/07/2024 10:09 AM [facility] MCHC 29.8(L) 32.0 - 37.0 g/dL LAB HEMETOLOGY METHOD 05/07/2024 10:09 AM [facility] RDW 14.6 11.0 - 15.0 % LAB HEMETOLOGY METHOD 05/07/2024 10:09 AM [facility] Platelets 303 130 - 400 K/mcL LAB HEMETOLOGY METHOD 05/07/2024 10:09 AM [facility] MPV 10.1 7.0 - 11.0 FL LAB HEMETOLOGY METHOD 05/07/2024 10:09 AM [facility] NRBC 0.0 <1.0 % LAB HEMETOLOGY METHOD 05/07/2024 10:09 AM [facility] NRBC Absolute 0.00 <0.10 K/mcL LAB HEMETOLOGY METHOD 05/07/2024 10:09 AM [facility] Blood Venous blood specimen / Unknown Venipuncture / Unknown 05/07/2024 5:12 AM EDT 05/07/2024 8:53 AM EDT us Matias Bowling MD LAB BLOOD ORDERABLES Final Resul t [facility] [address] [place] [address], * (ABNORMAL) Comprehensive metabolic panel (05/07/2024 5:12 AM EDT) Only the most recent of4 resultswithin the time period is included. Sodium 141 133 - 145 mmol/L LAB CHEMISTRY METHOD 05/07/2024 10:37 AM [facility] Potassium 4.9 3.5 - 5.5 mmol/L LAB CHEMISTRY METHOD 05/07/2024 10:37 AM [facility] Chloride 111(H) 96 - 110 mmol/L LAB CHEMISTRY METHOD 05/07/2024 10:37 AM [facility] CO2 22 21 - 32 mmol/L LAB CHEMISTRY METHOD 05/07/2024 10:37 AM [facility] Anion Gap 8 3 - 11 LAB CHEMISTRY METHOD 05/07/2024 10:37 AM [facility] Glucose 121(H) 70 - 100 mg/dL LAB CHEMISTRY METHOD 05/07/2024 10:37 AM [facility] BUN 15 5 - 25 mg/dL LAB CHEMISTRY METHOD 05/07/2024 10:37 AM [facility] Creatinine 1.02 0.50 - 1.10 mg/dL LAB CHEMISTRY METHOD 05/07/2024 10:37 AM [facility] eGFR 60 >=60 mL/min/1. 73m2 LAB CHEMISTRY METHOD 05/07/2024 10:37 AM [facility] Comment:Calculation based on the??Chronic Kidney Disease Epidemiology Collaboration (CKD-EPI) equation refit??without adjustment for race. BUN/Creatinine Ratio 14.7 LAB CHEMISTRY METHOD 05/07/2024 10:37 AM [facility] Calcium 9.1 8.5 - 10.5 mg/dL LAB CHEMISTRY METHOD 05/07/2024 10:37 AM [facility] AST (SGOT) 15 10 - 42 unit/L LAB CHEMISTRY METHOD 05/07/2024 10:37 AM [facility] ALT (SGPT) 20 10 - 60 unit/L LAB CHEMISTRY METHOD 05/07/2024 10:37 AM [facility] Alkaline Phosphatase 161(H) 42 - 121 unit/L LAB CHEMISTRY METHOD 05/07/2024 10:37 AM [facility] Total Protein 6.4 6.0 - 8.0 g/dL LAB CHEMISTRY METHOD 05/07/2024 10:37 AM [facility] Albumin 3.1(L) 3.2 - 5.0 g/dL LAB CHEMISTRY METHOD 05/07/2024 10:37 AM [facility] Total Bilirubin 0.2 0.0 - 1.4 mg/dL LAB CHEMISTRY METHOD 05/07/2024 10:37 AM [facility] Blood Venous blood specimen / Unknown Venipuncture / Unknown 05/07/2024 5:12 AM EDT 05/07/2024 8:53 AM EDT us Matias Bowling MD LAB BLOOD ORDERABLES Final Resul t [facility] [address] [place] [address], * (ABNORMAL) Basic metabolic panel (05/01/2024 4:57 AM EST) Sodium 142 133 - 145 mmol/L LAB CHEMISTRY METHOD 05/01/2024 12:26 PM EST [facility] Potassium 4.7 3.5 - 5.5 mmol/L LAB CHEMISTRY METHOD 05/01/2024 12:26 PM EST [facility] Chloride 110 96 - 110 mmol/L LAB CHEMISTRY METHOD 05/01/2024 12:26 PM [facility] CO2 21 21 - 32 mmol/L LAB CHEMISTRY METHOD 05/01/2024 12:26 PM [facility] Anion Gap 11 3 - 11 LAB CHEMISTRY METHOD 05/01/2024 12:26 PM [facility] Glucose 138(H) 70 - 100 mg/dL LAB CHEMISTRY METHOD 05/01/2024 12:26 PM [facility] BUN 18 5 - 25 mg/dL LAB CHEMISTRY METHOD 05/01/2024 12:26 PM [facility] Creatinine 1.07 0.50 - 1.10 mg/dL LAB CHEMISTRY METHOD 05/01/2024 12:26 PM [facility] eGFR 57(L) >=60 mL/min/1. 73m2 LAB CHEMISTRY METHOD 05/01/2024 12:26 PM [facility] Comment:Calculation based on the??Chronic Kidney Disease Epidemiology Collaboration (CKD-EPI) equation refit??without adjustment for race. BUN/Creatinine Ratio 16.8 LAB CHEMISTRY METHOD 05/01/2024 12:26 PM [facility] Calcium 9.3 8.5 - 10.5 mg/dL LAB CHEMISTRY METHOD 05/01/2024 12:26 PM [facility] Blood Venous blood specimen / Unknown Venipuncture / Unknown 05/01/2024 4:57 AM EST 05/01/2024 11:00 AM EST us Matias Bowling MD LAB BLOOD ORDERABLES Final Resul t [facility] [address] [place] [address], [place] [phone] from Last 3 Months Additional Health Concerns Infection Onset Date Last Indicated Gastrointestinal Rule-Out 04/28/20242024 Insurance [facility]IC[facility] Member Subscriber Plan / Payer (Ef fective 2022-Present) Name:Dale Trish Relation to Subscriber:Self Name:Trish Hunter Payer ID:[id number] Group ID:[id number] Type:Not on file Address: [place] [address] [address] [phone] Care Teams Brands Editor Relationship Specialty Start Date End Date Matias Bowling MD [address] [place] [phone] PCP - General Family Medicine 04/16/24
--- OUTSIDE RECORDS SUMMARY | 2024-05-07 14:16 | XMS_ITS | Encounter Summary ---
Author Organization [facility] Address [address] [place] [address] Care Team Providers Care Division Sales Manager Name Role Phone Matias Bowling MD Primary Care Provider [phone] Encounter Details Date Type Department Care Team (Late st Contact Info) Description 04/23/2024 Lab Requisition [facility] - Main Lab [address] [place] [address] Matias Bowling MD [address] [place] [address] 204 [facility] [phone] Essential (primary) hypertension Social History Tobacco [...] LAB CHEMISTRY METHOD 04/23/2024 10:18 AM EST [facility] Potassium 4.4 3.5 - 5.5 mmol/L LAB CHEMISTRY METHOD 04/23/2024 10:18 AM EST [facility] Chloride 109 96 - 110 [...] t [facility] [address] [place] [address], [place] [phone] * (ABNORMAL) Complete blood count (04/23/2024 5:04 [...] LAB HEMETOLOGY METHOD 04/23/2024 9:28 AM EST [facility] RDW 14.6 11.0 - 15.0 % LAB HEMETOLOGY METHOD 04/23/2024 9:28 AM EST [facility] Platelets 333 130 - 400 K/mcL LAB HEMETOLOGY METHOD 04/23/2024 9:28 AM EST [facility] MPV 9.8 7.0 - 11.0 FL LAB HEMETOLOGY METHOD 04/23/2024 9:28 AM EST [facility] NRBC 0.0 <1.0 % LAB HEMETOLOGY METHOD 04/23/2024 9:28 AM EST [facility] NRBC Absolute 0.00 <0.10 K/mcL LAB HEMETOLOGY METHOD 04/23/2024 9:28 AM [facility] Blood Venous blood specimen / Unknown Venipuncture / Unknown 04/23/2024 5:04 AM EST 04/23/2024 8:47 AM EST us Matias Bowling MD LAB BLOOD ORDERABLES Final Resul t [facility] [address] [place] [address], documented in this encounter Visit Diagnoses Diagnosis Essential (primary) hypertension Unspecified essential hypertension documented in this encounter Additional Health Concerns Infection Onset Date Last Indicated Resolved Time Gastrointestinal Rule-Out 04/28/2024 04/27/2024 documented as of this encounter Care Teams Division Sales Manager Relationship Specialty Start Date End Date Matias Bowling MD [address] [phone] PCP - General Family Medicine 04/16/24 documented as of this encounter
--- OUTSIDE RECORDS SUMMARY | 2024-05-07 14:16 | XMS_ITS | Encounter Summary ---
Author Organization [facility] Address [address] [place] [address] Care Team Providers Care Service Station Manager Name Role Phone Matias Bowling MD Primary Care Provider [phone] Encounter Details Date Type Department Care Team (Late st Contact Info) Description 04/29/2024 Lab Requisition [facility] - Main Lab [address] [facility] [place] [address] Matias Bowling MD 38 [facility] 204 [facility] [phone] Essential (primary) hypertension Social History Tobacco [...] documented as of this encounter Care Teams Service Station Manager Relationship Specialty Start Date End Date Matias Bowling MD 38 [facility] [address] [place] [address] PCP - General Family Medicine 04/16/24 documented as of this encounter
--- OUTSIDE RECORDS SUMMARY | 2024-05-07 14:16 | XMS_ITS | Encounter Summary ---
Author Organization [facility] Address [address] [place] [address] Care Team Providers Care Motorcycle Subassembly Repairer Name Role Phone Matias Bowling MD Primary Care Provider [phone] Encounter Details Date Type Department Care Team (Late st Contact Info) Description 04/29/2024 Lab Requisition [facility] - Main Lab [address] [place] [address] Matias Bowling MD [address] [place] [address] [address] [place], [address] Hyperlipidemia, unspecified; 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 classified [...] LAB CHEMISTRY METHOD 04/29/2024 2:49 PM EST [facility] ([facility]) [facility] Potassium 4.5 3.5 - 5.5 mmol/L LAB CHEMISTRY METHOD 04/29/2024 2:49 PM [facility] Chloride 111(H) 96 - 110 mmol/L LAB CHEMISTRY METHOD 04/29/2024 2:49 PM [facility] CO2 23 21 - 32 mmol/L LAB CHEMISTRY METHOD 04/29/2024 2:49 PM [facility] Anion Gap 8 3 - 11 LAB CHEMISTRY METHOD 04/29/2024 2:49 PM [facility] Glucose 118(H) 70 - 100 mg/dL LAB CHEMISTRY METHOD 04/29/2024 2:49 PM [facility] BUN 18 5 - 25 mg/dL LAB CHEMISTRY METHOD 04/29/2024 2:49 PM [facility] Creatinine 0.94 0.50 - 1.10 mg/dL LAB CHEMISTRY METHOD 04/29/2024 2:49 PM [facility] eGFR 66 >=60 mL/min/1. 73m2 LAB CHEMISTRY METHOD 04/29/2024 2:49 PM [facility] Comment:Calculation based on the??Chronic Kidney Disease Epidemiology Collaboration (CKD-EPI) equation refit??without adjustment for race. BUN/Creatinine Ratio 19.1 LAB CHEMISTRY METHOD 04/29/2024 2:49 PM [facility] Calcium 9.2 8.5 - 10.5 mg/dL LAB CHEMISTRY METHOD 04/29/2024 2:49 PM [facility] AST (SGOT) 21 10 - 42 unit/L LAB CHEMISTRY METHOD 04/29/2024 2:49 PM [facility] ALT (SGPT) 24 10 - 60 unit/L LAB CHEMISTRY METHOD 04/29/2024 2:49 PM [facility] Alkaline Phosphatase 170(H) 42 - 121 unit/L LAB CHEMISTRY METHOD 04/29/2024 2:49 PM [facility] Total Protein 6.9 6.0 - 8.0 g/dL LAB CHEMISTRY METHOD 04/29/2024 2:49 PM [facility] Albumin 3.2 3.2 - 5.0 g/dL LAB CHEMISTRY METHOD 04/29/2024 2:49 PM [facility] Total Bilirubin 0.3 0.0 - 1.4 mg/dL LAB CHEMISTRY METHOD 04/29/2024 2:49 PM [facility] Blood Venous blood specimen / Unknown Venipuncture / Unknown 04/29/2024 6:35 AM EST 04/29/2024 10:01 AM EST us Matias Bowling MD LAB BLOOD ORDERABLES Final Resul t [facility] [address] [place] [address], [place] [phone] * (ABNORMAL) Complete blood count (04/29/2024 6:35 AM EST) WBC 9.6 4.8 - 10.8 K/mcL LAB HEMETOLOGY METHOD 04/29/2024 11:28 AM [facility] RBC 3.70(L) 3.80 - 4.80 M/mcL LAB HEMETOLOGY METHOD 04/29/2024 11:28 AM [facility] Hemoglobin 9.9(L) 11.5 - 16.0 g/dL LAB HEMETOLOGY METHOD 04/29/2024 11:28 AM [facility] Hematocrit 32.0(L) 35.0 - 47.0 % LAB HEMETOLOGY METHOD 04/29/2024 11:28 AM [facility] MCV 87.0 79.0 - 98.0 FL LAB HEMETOLOGY METHOD 04/29/2024 11:28 AM [facility] MCH 26.9(L) 27.0 - 32.0 pcg LAB HEMETOLOGY METHOD 04/29/2024 11:28 AM EST [facility] MCHC 30.9(L) 32.0 - 37.0 g/dL LAB HEMETOLOGY METHOD 04/29/2024 11:28 AM [facility] RDW 14.6 11.0 - 15.0 % LAB HEMETOLOGY METHOD 04/29/2024 11:28 AM [facility] Platelets 358 130 - 400 K/mcL LAB HEMETOLOGY METHOD 04/29/2024 11:28 AM [facility] MPV 10.0 7.0 - 11.0 FL LAB HEMETOLOGY METHOD 04/29/2024 11:28 AM [facility] NRBC 0.0 <1.0 % LAB HEMETOLOGY METHOD 04/29/2024 11:28 AM [facility] NRBC Absolute 0.00 <0.10 K/mcL LAB HEMETOLOGY METHOD 04/29/2024 11:28 AM [facility] Blood Venous blood specimen / Unknown Venipuncture / Unknown 04/29/2024 6:35 AM EST 04/29/2024 10:01 AM EST us Matias Bowling MD LAB BLOOD ORDERABLES Final Resul t [facility] [address] [place] [address], documented in this encounter Visit Diagnoses Diagnosis Hyperlipidemia, unspecified 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 classified elsewhere (CMS/HCC) documented in this encounter Additional Health Concerns Infection Onset Date Last Indicated Resolved Time Gastrointestinal Rule-Out 04/28/2024 04/27/2024 documented as of this encounter Care Teams Motorcycle Subassembly Repairer Relationship Specialty Start Date End Date Matias Bowling MD [address] [facility] [address] [place] [address] PCP - General Family Medicine 04/16/24 documented as of this encounter
--- OUTSIDE RECORDS SUMMARY | 2024-05-07 14:16 | XMS_ITS | Encounter Summary ---
Author Organization [facility] Address [address] [place] [address] Care Team Providers Care Knitted Cloth Examiner Name Role Phone Matias Bowling MD Primary Care Provider [phone] Encounter Details Date Type Department Care Team (Late st Contact Info) Description 04/28/2024 Lab Requisition [facility] - Main Lab [address] [facility] [place] [address] Matias Bowling MD 38 [facility] 204 [facility] [address] Diarrhea, unspecified Social History Tobacco Use [...] documented as of this encounter Care Teams Knitted Cloth Examiner Relationship Specialty Start Date End Date Matias Bowling MD 38 [facility] 204 [place] [address] PCP - General Family Medicine 04/16/24 documented as of this encounter
== END 2024-05-07 12:00 | disposition home or self-care (01) ==
LOC: HO.HOS 11:07
PROVIDERS: PCP Family Medicine; Visit Provider Physician Assistant
DX: M97.12XA Periprosthetic fracture around internal prosthetic left knee joint, initial encounter (principal)
CPT/HCPCS: 99024

== ENCOUNTER → 2024-05-07 11:12 | Outpatient (BNV) | payer OTHER, SELFPAY | PROVIDERS: Visit Provider Radiology Diagnostic Radiology | DX: M79.605 Pain in left leg (principal) | CPT/HCPCS: 73552 ==

== ENCOUNTER 2024-06-03 09:11 | Outpatient (REF) | payer OTHER, SELFPAY ==
--- NOTE | ~2024-06-03 | XR_ITS ---
EXAMINATION: XR FEMUR, LEFT CLINICAL INFORMATION: M79.606 - Pain in leg, unspecified COMPARISON: May 07, 2024. TECHNIQUE: AP and lateral views of the left femur were obtained. FINDINGS: Cortical disruption without callus formation involving the medial aspect of the distal diaphysis and metaphysis of the femur. Metallic prosthesis with a femoral and tibial component. XR/XR femur LT 2V IMPRESSION: Nonunion fracture, distal femur. Electronically signed by: Titus Thomas MD 06/03/2024 01:00 PM EDT
--- OUTSIDE RECORDS SUMMARY | 2024-06-04 09:53 | XMS_ITS | Encounter Summary ---
Author Organization [employer] Address [address] [facility] 7t [place] [address] Care Team Providers Care Power Electronics Engineer Name Role Phone Ethel Chase DO Primary Care Provider [phone] Vaishnavi Laird PharmD Unavailable [phone] Reason for Visit * Reason Onset Date Comments Pre-Op 03/23/2024 Encounter Details Date Type Department Care Team (Late st Contact Info) Description 03/23/2024 Telephone [facility] MEDICINE [address] [place] [address] Ethel Chase DO [address] [place] [address] Pre-Op Social History Tobacco Use Types Packs/Day [...] Yes Surgeon's name: Dave Oro Facility name: [facility] Orthopedic Surgeon's office number: [phone] Surgeon's office fax number: [phone] Contact name (person you spoke with): Trish [...] documented as of this encounter Care Teams Power Electronics Engineer Relationship Specialty Start Date End Date Ethel Chase DO [address] [place] [address] PCP - General Family Medicine 10/12/13 Vaishnavi Laird, Zana [address] [place] [address] Pharmacist Internal Medicine 02/07/23 documented as of this encounter
--- OUTSIDE RECORDS SUMMARY | 2024-06-04 09:53 | XMS_ITS | Encounter Summary ---
Author Organization [employer] Address [address] [place] [address] 7[address] [place] [address] Care Team Providers Care Tacking Stitch Remover Name Role Phone Ethel Chase DO Primary Care Provider [phone]- [phone] Vaishnavi Laird PharmD Unavailable [phone] Reason for Visit * Reason Comments Med Refill Encounter Details Date Type Department Care Team (Late st Contact Info) Description 08/10/2022 Refill [facility] MEDICINE [address] [place] [address] [facility] [address] [place] [address] Social History Tobacco Use Types Packs/Day Years [...] documented as of this encounter Care Teams Tacking Stitch Remover Relationship Specialty Start Date End Date Ethel Chase DO [address] [place] [address] PCP - General Family Medicine 10/12/13 Vaishnavi Laird, Zana [address] [place] [address] Pharmacist Internal Medicine 02/07/23 documented as of this encounter
--- OUTSIDE RECORDS SUMMARY | 2024-06-04 09:53 | XMS_ITS | Encounter Summary ---
Author Organization [employer] Address [address] [facility] 7t [place] [address] Care Team Providers Care Combatant Swimmer Name Role Phone Ethel Chase DO Primary Care Provider +1- [phone] Vaishnavi Laird PharmD Unavailable [phone] Reason for Visit * Reason Onset Date Comments Pre op 01/27/2024 Encounter Details Date Type Department Care Team ([facility] st Contact Info) Description 01/27/2024 Telephone [facility] MEDICINE [address] [place] [address] Ethel Chase DO [address] [place] [address] Pre op Social History Tobacco Use Types [...] op on 02/14/24 at 02:15PM. Sujata at [facility] stated she will be contacting pt to provide appointment details. Reminder letter sent via mail Date of Surgery: 03/24/24 Surgical procedure being done: left knee revision surgery Type of anesthesia: general anesthesia with block Lab needed: Yes include A1c EKG: Yes Surgeon's name: Dr Oro Facility name: [facility] Orthopedic Surgeon's office number: [phone] Surgeon's office fax number: [phone] Contact name (person you spoke with): Sujata [...] documented as of this encounter Care Teams Combatant Swimmer Relationship Specialty Start Date End Date Ethel Chase DO [address] [place] [address] PCP - General Family Medicine 10/12/13 Vaishnavi Laird PharmD [address] [place] [address] Pharmacist Internal Medicine 02/07/23 documented as of this encounter
--- OUTSIDE RECORDS SUMMARY | 2024-06-04 09:53 | XMS_ITS | Encounter Summary ---
Author Organization [employer] Address [address] [place] [address] 7t [place] [address] Care Team Providers Care Salt Plant Operator Name Role Phone Ethel Chase DO Primary Care Provider Vaishnavi Laird PharmD Unavailable Reason for Visit * Reason Comments Med Refill Encounter Details Date Type Department Care Team (Late st Contact Info) Description 06/06/2022 Refill [facility] MEDICINE [address] [place] [address] Ethel Chase DO [address] [place] [address] Other chronic pain Social History Tobacco Use [...] documented as of this encounter Care Teams Salt Plant Operator Relationship Specialty Start Date End Date Ethel Chase DO [address] [place] [address] PCP - General Family Medicine 10/12/13 Vaishnavi Laird PharmD [address] [place] [address] Pharmacist Internal Medicine 02/07/23 documented as of this encounter
--- OUTSIDE RECORDS SUMMARY | 2024-06-04 09:53 | XMS_ITS | Encounter Summary ---
Author Organization [employer] Address 75 [facility] 7t [place] [address] Care Team Providers Care Tannery Gummer Name Role Phone Ethel Chase DO Primary Care Provider [phone]- [phone] Vaishnavi Laird PharmD Unavailable [phone] Reason for Visit * Reason Comments Med Refill Encounter Details Date Type Department Care Team ([facility] st Contact Info) Description 03/23/2024 Refill [facility] MEDICINE [address] [place] [address] Ethel Chase DO [address] [place] [address] Other chronic pain Social History Tobacco Use [...] documented as of this encounter Care Teams Tannery Gummer Relationship Specialty Start Date End Date Ethel Chase DO [address] [place] [address] PCP - General Family Medicine 10/12/13 TwilaiaVaishnavi, PharmD [address] [place] [address] Pharmacist Internal Medicine 02/07/23 documented as of this encounter
--- OUTSIDE RECORDS SUMMARY | 2024-06-04 09:53 | XMS_ITS | Encounter Summary ---
Author Organization [employer] Address [address] [facility] 7t [place] [address] Care Team Providers Care Insurance Customer Service Specialist Name Role Phone ManuelEthel perry Primary Care Provider + [phone] Vaishanvi Laird PharmD Unavailable [phone] Reason for Visit * Reason Comments Med Refill Encounter Details Date Type Department Care Team ([facility] st Contact Info) Description 02/02/2023 Refill [facility] MEDICINE [address] [place] [address] Sadie Rivera, ANP [address] [place] [address] Type 2 diabetes mellitus with other specified complication, unspecified whether long term care phlebotomist insulin use ([facility]) Social History Tobacco Use Types Packs/Day Years [...] mellitus with other specified complication, unspecified whether mcc insulin use ([facility]) documented in this encounter Additional Health Concerns Assessment Noted Time PHQ-9 Depression Total Score: 0 02/08/20 22 10:43 AM EST documented as of this encounter Care Teams Insurance Customer Service Specialist Relationship Specialty Start Date End Date Ethel Chase DO [address] [place] [address] PCP - General Family Medicine 10/12/13 Vaishnavi Laird PharmD [address] [place] [address] Pharmacist Internal Medicine 02/07/23 documented as of this encounter
--- OUTSIDE RECORDS SUMMARY | 2024-06-04 09:53 | XMS_ITS | Encounter Summary ---
Author Organization [facility] Address [address] [place] [address] Care Team Providers Care Ramp Manager Name Role Phone Matias Bowling MD Primary Care Provider [phone] Encounter Details Date Type Department Care Team (Late st Contact Info) Description 05/06/2024 Lab Requisition [facility] - Main Lab [address] [place] [address] Matias Bowling MD 38 [facility] [address] [place], [address] Essential (primary) hypertension Social History Tobacco [...] LAB CHEMISTRY METHOD 05/07/2024 10:37 AM EDT [facility] Potassium 4.9 3.5 - 5.5 mmol/L LAB CHEMISTRY METHOD 05/07/2024 10:37 AM EDT [facility] Chloride 111(H) 96 - 110 mmol/L LAB CHEMISTRY METHOD 05/07/2024 10:37 AM [facility] LAB CO2 22 21 - 32 mmol/L LAB CHEMISTRY METHOD 05/07/2024 10:37 AM [facility] LAB Anion Gap 8 3 - 11 LAB CHEMISTRY METHOD 05/07/2024 10:37 AM [facility] LAB Glucose 121(H) 70 - 100 mg/dL LAB CHEMISTRY METHOD 05/07/2024 10:37 AM [facility] BUN 15 5 - 25 mg/dL LAB CHEMISTRY METHOD 05/07/2024 10:37 AM [facility] LAB Creatinine 1.02 0.50 - 1.10 mg/dL LAB CHEMISTRY METHOD 05/07/2024 10:37 AM [facility] LAB eGFR 60 >=60 mL/min/1. 73m2 LAB CHEMISTRY METHOD 05/07/2024 10:37 AM [facility] LAB Comment:Calculation based on the??Chronic Kidney Disease Epidemiology Collaboration (CKD-EPI) equation refit??without adjustment for race. BUN/Creatinine Ratio 14.7 LAB CHEMISTRY METHOD 05/07/2024 10:37 AM [facility] LAB Calcium 9.1 8.5 - 10.5 mg/dL LAB CHEMISTRY METHOD 05/07/2024 10:37 AM [facility] AST (SGOT) 15 10 - 42 unit/L LAB CHEMISTRY METHOD 05/07/2024 10:37 AM [facility] ALT (SGPT) 20 10 - 60 unit/L LAB CHEMISTRY METHOD 05/07/2024 10:37 AM [facility] Alkaline Phosphatase 161(H) 42 - 121 unit/L LAB CHEMISTRY METHOD 05/07/2024 10:37 AM [facility] Total Protein 6.4 6.0 - 8.0 g/dL LAB CHEMISTRY METHOD 05/07/2024 10:37 AM [facility] Albumin 3.1(L) 3.2 - 5.0 g/dL LAB CHEMISTRY METHOD 05/07/2024 10:37 AM EDT [facility] Total Bilirubin 0.2 0.0 - 1.4 mg/dL LAB CHEMISTRY METHOD 05/07/2024 10:37 AM [facility] Blood Venous blood specimen / Unknown Venipuncture / Unknown 05/07/2024 5:12 AM EDT 05/07/2024 8:53 AM EDT us Matias Bowling MD LAB BLOOD ORDERABLES Final Resul t [facility] [address] [place] [address], [place] [phone] * (ABNORMAL) Complete blood count (05/07/2024 5:12 AM EDT) WBC 9.6 4.8 - 10.8 K/mcL LAB HEMETOLOGY METHOD 05/07/2024 10:09 AM [facility] RBC 3.60(L) 3.80 - 4.80 M/mcL LAB HEMETOLOGY METHOD 05/07/2024 10:09 AM [facility] Hemoglobin 9.4(L) 11.5 - 16.0 g/dL LAB HEMETOLOGY METHOD 05/07/2024 10:09 AM [facility] Hematocrit 31.5(L) 35.0 - 47.0 % LAB HEMETOLOGY METHOD 05/07/2024 10:09 AM [facility] MCV 88.2 79.0 - 98.0 FL LAB HEMETOLOGY METHOD 05/07/2024 10:09 AM [facility] MCH 26.3(L) 27.0 - 32.0 pcg LAB HEMETOLOGY METHOD 05/07/2024 10:09 AM [facility] MCHC 29.8(L) 32.0 - 37.0 g/dL LAB HEMETOLOGY METHOD 05/07/2024 10:09 AM EDT [facility] RDW 14.6 11.0 - 15.0 % LAB HEMETOLOGY METHOD 05/07/2024 10:09 AM EDT [facility] Platelets 303 130 - 400 K/mcL LAB HEMETOLOGY METHOD 05/07/2024 10:09 AM EDT [facility] MPV 10.1 7.0 - 11.0 FL LAB HEMETOLOGY METHOD 05/07/2024 10:09 AM EDT [facility] NRBC 0.0 <1.0 % LAB HEMETOLOGY METHOD 05/07/2024 10:09 AM EDT [facility] NRBC Absolute 0.00 <0.10 K/mcL LAB HEMETOLOGY METHOD 05/07/2024 10:09 AM EDT [facility] Blood Venous blood specimen / Unknown Venipuncture / Unknown 05/07/2024 5:12 AM EDT 05/07/2024 8:53 AM EDT us Matias Bowling MD LAB BLOOD ORDERABLES Final Resul t [facility] [address] [place] [address], documented in this encounter Visit Diagnoses Diagnosis Essential (primary) hypertension Unspecified essential hypertension documented in this encounter Additional Health Concerns Infection Onset Date Last Indicated Resolved Time Gastrointestinal Rule-Out 04/28/2024 04/27/2024 7:06 PM EDT C. difficile 05/29/2024 05/29/2024 C. Diff Rule-Out Infection 05/30/2024 05/29/2024 0 05/30/2024 9:47 AM EDT documented as of this encounter Care Teams Ramp Manager Relationship Specialty Start Date End Date Matias Bowling MD [address] [address] PCP - General Family Medicine 04/16/24 documented as of this encounter
--- OUTSIDE RECORDS SUMMARY | 2024-06-04 09:53 | XMS_ITS | Encounter Summary ---
Author Organization [employer] Address [address] [facility] 7t [place] [address] Care Team Providers Care Para Professional Name Role Phone Ethel Chase DO Primary Care Provider [phone] Vaishnavi Laird PharmD Unavailable [phone] Reason for Visit * Reason Onset Date Comments Nurse Triage 04/16/2023 Encounter Details Date Type Department Care Team ([facility] st Contact Info) Description 04/16/2023 Telephone [facility] MEDICINE [address] [place] [address] Ethel Chase DO [address] [place] [address] Nurse Triage Social History Tobacco Use Types [...] PM EST Triage call regarding message from [facility] see below. 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 Pt reports only high BS was [...] if any further problem to come to [facility] for provider to see Pt . Pt [...] - You become worse Tc from [facility] reporting patient has extreme high blood sugars: 355 Saturday Down to the 250 today Advises that her glucose monitor keeps beeping, [facility] Nurse advised that pt refused urgent group home visit but was advised to go to the urgent. Please contact pt [phone] Indonesian Speaker * Telephone Encounter - Netta Diamondlaxmi Grider - 04/16/2023 4:18 PM EST Tc from [facility] reporting patient has extreme high blood sugars: 355 Saturday Down to the 250 today Advises that her glucose monitor keeps beeping, [facility] Nurse advised that pt refused urgent group home visit but was advised to go to the urgent. Please contact pt [phone] Indonesian Speaker documented in this encounter Plan of [...] documented as of this encounter Care Teams Para Professional Relationship Specialty Start Date End Date Ethel Chase DO [address] [place] [address] PCP - General Family Medicine 10/12/13 Puia, Vaishnavi, PharmD [address] [place] [address] Pharmacist Internal Medicine 02/07/23 documented as of this encounter
--- OUTSIDE RECORDS SUMMARY | 2024-06-04 09:53 | XMS_ITS | Encounter Summary ---
Author Organization [employer] Address [address] [place] [address] 7t [place] [address] Care Team Providers Care Wood Boatbuilder Apprentice Name Role Phone Ethel Chase DO Primary Care Provider [phone]- [phone] Vaishnavi Laird PharmD Unavailable Reason for Visit * Reason Comments Med Refill Encounter Details Date Type Department Care Team (Late st Contact Info) Description 04/06/2022 Refill [facility] MEDICINE [address] [place] [address] Ethel Chase DO [address] [place] [address] Other chronic pain Social History Tobacco Use [...] documented as of this encounter Care Teams Wood Boatbuilder Apprentice Relationship Specialty Start Date End Date Ethel Chaes DO [address] [place] [address] PCP - General Family Medicine 10/12/13 Vaishnavi Laird PharmD [address] [place] [address] Pharmacist Internal Medicine 02/07/23 documented as of this encounter
--- OUTSIDE RECORDS SUMMARY | 2024-06-04 09:53 | XMS_ITS | Encounter Summary ---
Author Organization [employer] Address [address] [facility] [address]t [place] [address] Care Team Providers Care Egg Setter Name Role Phone Ethel Chase DO Primary Care Provider [phone] Vaishnavi Laird PharmD Unavailable Reason for Visit * Reason Comments Med Refill Encounter Details Date Type Department Care Team (Late st Contact Info) Description 10/25/2022 Refill [facility] & PEDS [address] [place] [address] Eun Ray MD [address] [place] [address] Other chronic pain Social History Tobacco Use [...] documented as of this encounter Care Teams Egg Setter Relationship Specialty Start Date End Date Ethel Chase DO [address] [place] [address] PCP - General Family Medicine 10/12/13 Vaishnavi Laird, Zana [address] [place] [address] Pharmacist Internal Medicine 02/07/23 documented as of this encounter
--- OUTSIDE RECORDS SUMMARY | 2024-06-04 09:53 | XMS_ITS | Encounter Summary ---
Author Organization [facility] Address [address] [place] [address] Care Team Providers Care Molded Goods Inspector Trimmer Name Role Phone Matias Bowling MD Primary Care Provider [phone] Encounter Details Date Type Department Care Team (Late st Contact Info) Description 04/16/2024 Lab Requisition [facility] - Main Lab [address] [place] [address] Matias Bowling MD 38 [facility] [address] [place], [phone] Essential (primary) hypertension Social History Tobacco [...] LAB CHEMISTRY METHOD 04/16/2024 11:36 AM EST [facility] LAB Potassium 4.2 3.5 - 5.5 mmol/L LAB CHEMISTRY METHOD 04/16/2024 11:36 AM EST [facility] Chloride 103 96 - 110 mmol/L LAB CHEMISTRY METHOD 04/16/2024 11:36 AM [facility] LAB CO2 25 21 - 32 mmol/L LAB CHEMISTRY METHOD 04/16/2024 11:36 AM [facility] LAB Anion Gap 13(H) 3 - 11 LAB CHEMISTRY METHOD 04/16/2024 11:36 AM [facility] LAB Glucose 96 70 - 100 mg/dL LAB CHEMISTRY METHOD 04/16/2024 11:36 AM [facility] BUN 13 5 - 25 mg/dL LAB CHEMISTRY METHOD 04/16/2024 11:36 AM [facility] Creatinine 1.13(H) 0.50 - 1.10 mg/dL LAB CHEMISTRY METHOD 04/16/2024 11:36 AM [facility] LAB eGFR 53(L) >=60 mL/min/1. 73m2 LAB CHEMISTRY METHOD 04/16/2024 11:36 AM [facility] LAB Comment:Calculation based on the??Chronic Kidney Disease Epidemiology Collaboration (CKD-EPI) equation refit??without adjustment for race. BUN/Creatinine Ratio 11.5 LAB CHEMISTRY METHOD 04/16/2024 11:36 AM [facility] Calcium 9.1 8.5 - 10.5 mg/dL LAB CHEMISTRY METHOD 04/16/2024 11:36 AM [facility] LAB AST (SGOT) 31 10 - 42 unit/L LAB CHEMISTRY METHOD 04/16/2024 11:36 AM [facility] ALT (SGPT) 33 10 - 60 unit/L LAB CHEMISTRY METHOD 04/16/2024 11:36 AM [facility] Alkaline Phosphatase 181(H) 42 - 121 unit/L LAB CHEMISTRY METHOD 04/16/2024 11:36 AM [facility] Total Protein 7.5 6.0 - 8.0 g/dL LAB CHEMISTRY METHOD 04/16/2024 11:36 AM [facility] Albumin 3.3 3.2 - 5.0 g/dL LAB CHEMISTRY METHOD 04/16/2024 11:36 AM [facility] Total Bilirubin 0.4 0.0 - 1.4 mg/dL LAB CHEMISTRY METHOD 04/16/2024 11:36 AM [facility] LAB Blood Venous blood specimen / Unknown Venipuncture / Unknown 04/16/2024 7:33 AM EST 04/16/2024 10:20 AM EST us Matias Bowling MD LAB BLOOD ORDERABLES Final Resul t [facility] LAB [address] [place] [address], [place] [phone] * (ABNORMAL) Complete blood count (04/16/2024 7:33 AM EST) WBC 11.5(H) 4.8 - 10.8 K/mcL LAB HEMETOLOGY METHOD 04/16/2024 11:12 AM [facility] RBC 3.70(L) 3.80 - 4.80 M/mcL LAB HEMETOLOGY METHOD 04/16/2024 11:12 AM [facility] Hemoglobin 9.9(L) 11.5 - 16.0 g/dL LAB HEMETOLOGY METHOD 04/16/2024 11:12 AM [facility] LAB Hematocrit 32.1(L) 35.0 - 47.0 % LAB HEMETOLOGY METHOD 04/16/2024 11:12 AM [facility] LAB MCV 87.5 79.0 - 98.0 FL LAB HEMETOLOGY METHOD 04/16/2024 11:12 AM [facility] LAB MCH 27.0 27.0 - 32.0 pcg LAB HEMETOLOGY METHOD 04/16/2024 11:12 AM [facility] LAB MCHC 30.8(L) 32.0 - 37.0 g/dL LAB HEMETOLOGY METHOD 04/16/2024 11:12 AM EST [facility] LAB RDW 14.2 11.0 - 15.0 % LAB HEMETOLOGY METHOD 04/16/2024 11:12 AM EST [facility] LAB Platelets 443(H) 130 - 400 K/mcL LAB HEMETOLOGY METHOD 04/16/2024 11:12 AM EST [facility] LAB MPV 9.8 7.0 - 11.0 FL LAB HEMETOLOGY METHOD 04/16/2024 11:12 AM EST [facility] LAB NRBC 0.0 <1.0 % LAB HEMETOLOGY METHOD 04/16/2024 11:12 AM EST [facility] LAB NRBC Absolute 0.00 <0.10 K/mcL LAB HEMETOLOGY METHOD 04/16/2024 11:12 AM [facility] Blood Venous blood specimen / Unknown Venipuncture / Unknown 04/16/2024 7:33 AM EST 04/16/2024 10:20 AM EST us Matias Bowling MD LAB BLOOD ORDERABLES Final Resul t [facility] [address] [place] [address], documented in this encounter Visit Diagnoses Diagnosis Essential (primary) hypertension Unspecified essential hypertension documented in this encounter Additional Health Concerns Infection Onset Date Last Indicated Resolved Time Gastrointestinal Rule-Out 04/28/2024 04/27/2024 7:06 PM EDT C. difficile 05/29/2024 05/29/2024 C. Diff Rule-Out Infection 05/30/2024 05/29/2024 0 05/30/2024 9:47 AM EDT documented as of this encounter Care Teams Molded Goods Inspector Trimmer Relationship Specialty Start Date End Date Matias Bowling MD [address] [place] [phone] PCP - General Family Medicine 04/16/24 documented as of this encounter
--- OUTSIDE RECORDS SUMMARY | 2024-06-04 09:53 | XMS_ITS | Encounter Summary ---
Author Organization [facility] Address [address] [place] [address] Care Team Providers Care Senior Clinical Data Coordinator Name Role Phone Matias Bowling MD Primary Care Provider [phone] Encounter Details Date Type Department Care Team (Late st Contact Info) Description 04/23/2024 Lab Requisition [facility] - Main Lab [address] [place] [address] Matias Bowling MD 38 [facility] [address] [place], [phone] Essential (primary) hypertension Social History Tobacco [...] LAB CHEMISTRY METHOD 04/23/2024 10:18 AM EST [facility] LAB Potassium 4.4 3.5 - 5.5 mmol/L LAB CHEMISTRY METHOD 04/23/2024 10:18 AM EST [facility] Chloride 109 96 - 110 mmol/L LAB CHEMISTRY METHOD 04/23/2024 10:18 AM [facility] LAB CO2 25 21 - 32 mmol/L LAB CHEMISTRY METHOD 04/23/2024 10:18 AM [facility] LAB Anion Gap 9 3 - 11 LAB CHEMISTRY METHOD 04/23/2024 10:18 AM [facility] Glucose 114(H) 70 - 100 mg/dL LAB CHEMISTRY METHOD 04/23/2024 10:18 AM [facility] LAB BUN 17 5 - 25 mg/dL LAB CHEMISTRY METHOD 04/23/2024 10:18 AM [facility] LAB Creatinine 1.01 0.50 - 1.10 mg/dL LAB CHEMISTRY METHOD 04/23/2024 10:18 AM [facility] LAB eGFR 61 >=60 mL/min/1. 73m2 LAB CHEMISTRY METHOD 04/23/2024 10:18 AM [facility] LAB Comment:Calculation based on the??Chronic Kidney Disease Epidemiology Collaboration (CKD-EPI) equation refit??without adjustment for race. BUN/Creatinine Ratio 16.8 LAB CHEMISTRY METHOD 04/23/2024 10:18 AM [facility] Calcium 9.4 8.5 - 10.5 mg/dL LAB CHEMISTRY METHOD 04/23/2024 10:18 AM [facility] LAB AST (SGOT) 18 10 - 42 unit/L LAB CHEMISTRY METHOD 04/23/2024 10:18 AM [facility] LAB ALT (SGPT) 25 10 - 60 unit/L LAB CHEMISTRY METHOD 04/23/2024 10:18 AM [facility] LAB Alkaline Phosphatase 165(H) 42 - 121 unit/L LAB CHEMISTRY METHOD 04/23/2024 10:18 AM [facility] Total Protein 7.0 6.0 - 8.0 g/dL LAB CHEMISTRY METHOD 04/23/2024 10:18 AM [facility] Albumin 3.3 3.2 - 5.0 g/dL LAB CHEMISTRY METHOD 04/23/2024 10:18 AM [facility] Total Bilirubin 0.4 0.0 - 1.4 mg/dL LAB CHEMISTRY METHOD 04/23/2024 10:18 AM [facility] LAB Blood Venous blood specimen / Unknown Venipuncture / Unknown 04/23/2024 5:04 AM EST 04/23/2024 8:47 AM EST us Matias Bowling MD LAB BLOOD ORDERABLES Final Resul t [facility] [address] [place] [address], * (ABNORMAL) Complete blood count (04/23/2024 5:04 AM EST) WBC 8.9 4.8 - 10.8 K/mcL LAB HEMETOLOGY METHOD 04/23/2024 9:28 AM [facility] LAB RBC 3.40(L) 3.80 - 4.80 M/[facility] LAB HEMETOLOGY METHOD 04/23/2024 9:28 AM [facility] LAB Hemoglobin 9.2(L) 11.5 - 16.0 g/dL LAB HEMETOLOGY METHOD 04/23/2024 9:28 AM [facility] LAB Hematocrit 30.3(L) 35.0 - 47.0 % LAB HEMETOLOGY METHOD 04/23/2024 9:28 AM [facility] LAB MCV 88.1 79.0 - 98.0 FL LAB HEMETOLOGY METHOD 04/23/2024 9:28 AM [facility] LAB MCH 26.7(L) 27.0 - 32.0 pcg LAB HEMETOLOGY METHOD 04/23/2024 9:28 AM [facility] LAB MCHC 30.4(L) 32.0 - 37.0 g/dL LAB HEMETOLOGY METHOD 04/23/2024 9:28 AM EST [facility] LAB RDW 14.6 11.0 - 15.0 % LAB HEMETOLOGY METHOD 04/23/2024 9:28 AM EST [facility] LAB Platelets 333 130 - 400 K/mcL LAB HEMETOLOGY METHOD 04/23/2024 9:28 AM EST [facility] MPV 9.8 7.0 - 11.0 FL LAB HEMETOLOGY METHOD 04/23/2024 9:28 AM EST [facility] NRBC 0.0 <1.0 % LAB HEMETOLOGY METHOD 04/23/2024 9:28 AM EST [facility] LAB NRBC Absolute 0.00 <0.10 K/mcL LAB HEMETOLOGY METHOD 04/23/2024 9:28 AM [facility] LAB Blood Venous blood specimen / Unknown Venipuncture / Unknown 04/23/2024 5:04 AM EST 04/23/2024 8:47 AM EST us Matias Bowling MD LAB BLOOD ORDERABLES Final Resul t [facility] [address] [place] [address], documented in this encounter Visit Diagnoses Diagnosis Essential (primary) hypertension Unspecified essential hypertension documented in this encounter Additional Health Concerns Infection Onset Date Last Indicated Resolved Time Gastrointestinal Rule-Out 04/28/2024 04/27/2024 7:06 PM EDT C. difficile 05/29/2024 05/29/2024 C. Diff Rule-Out Infection 05/30/2024 05/29/2024 0 05/30/2024 9:47 AM EDT documented as of this encounter Care Teams Senior Clinical Data Coordinator Relationship Specialty Start Date End Date Matias Bowling MD [address] [place] [phone] PCP - General Family Medicine 04/16/24 documented as of this encounter
--- OUTSIDE RECORDS SUMMARY | 2024-06-04 09:53 | XMS_ITS | Encounter Summary ---
Author Organization [employer] Address [address] [place] [address] [address] [place] [address] Care Team Providers Care Chucking Machine Set Up Operator Name Role Phone Ethel Chase DO Primary Care Provider [phone] Vaishnavi Laird PharmD Unavailable [phone] Reason for Visit * Reason Comments Med Refill Encounter Details Date Type Department Care Team (Late st Contact Info) Description 06/07/2022 Refill [facility] [address] [place] [address] Ethel Chase DO [address] [place] [address] Other chronic pain Social History Tobacco Use [...] documented as of this encounter Care Teams Chucking Machine Set Up Operator Relationship Specialty Start Date End Date Ethel Chase DO [address] [place] [address] PCP - General Family Medicine 10/12/13 Vaishnavi Laird PharmD [address] [place] [address] Pharmacist Internal Medicine 02/07/23 documented as of this encounter
--- OUTSIDE RECORDS SUMMARY | 2024-06-04 09:53 | XMS_ITS | Clinical Summary ---
Author Organization [address] Address [address] [place] [address] Phone Care Team Providers Care Product Grader Name Role Phone Matias Bowling MD Primary Care Provider [phone] Encounters Date Type Department Care Team Description 06/03/2024 Lab Requisition [facility] Lab [address] [place] [phone] Matias Bowling MD Essential (primary) hypertension 05/30/2024 Lab Requisition [facility] Lab [address] [place] [phone] Matias Bowling MD Diarrhea, unspecified 05/27/2024 Lab Requisition [facility] Lab [address] [place] [phone] Matias Bowling MD Essential (primary) hypertension 05/22/2024 Lab Requisition [facility] Lab [address] [place] [phone] Matias Bowling MD 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 classified elsewhere (CMS/HCC V24, CMS/HCC V28); Hyperlipidemia, unspecified 05/20/2024 Lab Requisition [facility] Lab [address] [place] [phone] Matias Bowling MD Essential (primary) hypertension 05/13/2024 Lab Requisition [facility] Lab [address] [place] [address] Matias Bowling MD Essential (primary) hypertension 05/06/2024 Lab Requisition [facility] Lab [address] [place] [address] Matias Bowling MD Essential (primary) hypertension 04/30/2024 Lab Requisition [facility] - Main Lab [address] [place] [address] Matias Bowling MD Essential (primary) hypertension 04/29/2024 Lab Requisition [facility] Main Lab [address] [place] [phone] Matias Bowling MD Essential (primary) hypertension 04/29/2024 Lab Requisition [facility] Main Lab [address] [place] [phone] Matias Bowling MD Hyperlipidemia, unspecified; 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 classified elsewhere (CMS/HCC V24, CMS/HCC V28) 04/28/2024 Lab Requisition [facility] Main Lab [address] [place] [phone] Matias Bowling MD Diarrhea, unspecified 04/23/2024 Lab Requisition [facility] - Main Lab [address] [place] [phone] Matias Bowling MD Essential (primary) hypertension 04/16/2024 Lab Requisition [facility] Main Lab [address] [place] [address] Matias Bowling MD Essential (primary) hypertension from [...] of 2) 12/29/2005 COVID-19 Vaccine (1 - 2023-25 season) 2023 Cholesterol Screening (Lipid Panel) 04/16/2024 [...] #1 Negative Negative 05/30/2024 9:30 AM EDT [facility] Stool Rectum structure / Unknown Non-blood Collection / Unknown 05/29/2024 1:50 PM EDT 05/30/2024 8:36 AM EDT Matias Bowling MD LAB BODY FLUIDS AND STOOLS ORDER MARGARET Final Result [facility] [address] [place] [address], [place] [phone] * Ova and parasite examination (05/29/2024 1:50 PM EDT) Ova and Parasite No Ova or Parasite seen. 06/03/2024 10:02 AM EDT [facility] Stool Rectum structure / Unknown Non-blood Collection / Unknown 05/29/2024 1:50 PM EDT 05/30/2024 8:36 AM EDT Narrative [facility] - 06/03/2024 10:02 AM EDT Special test request required for Coccidia and Microsporidia. Matias Bowling MD LAB MICROBIOLOGY - GENERAL ORDER MARGARET Final Result [facility] [address] [place] [address], [place] [phone] * (ABNORMAL) Clostridium difficile molecular study (05/29/2024 1:50 PM EDT) [facility] Clostridium difficile PCR Positive (AA) Negative LAB MICROBIOLOGY METHOD 05/30/2024 11:16 AM EDT [facility] Comment: CRITICAL RESULT POSITIVE FOR TOXIN PRODUCING CLOSTRIDIOIDES DIFFICILE, NO ADDITIONAL TESTING IS NECESSARY. REPEAT SAMPLES SHOULD NOT BE SUBMITTED FOR TEST OF CURE. Stool Rectum structure / Unknown Non-blood Collection / Unknown 05/29/2024 1:50 PM EDT 05/30/2024 9:47 AM EDT Matias Bowling MD LAB MICROBIOLOGY - GENERAL ORDER MARGARET Final Result Performing Organization Address City/[facility]/ZIP Co de Phone Number [facility] [address] [place] [address], [place] [phone] * Clostridium difficile toxin (05/29/2024 1:50 PM EDT) [facility] C difficile Toxins A+B, EIA 05/30/2024 9:47 AM EDT [facility] Comment:Refer to C. difficil e PCR assay for results. Stool Rectum structure / Unknown Non-blood Collection / Unknown 05/29/2024 1:50 PM EDT 05/30/2024 8:36 AM EDT Matias Bowling MD LAB MICROBIOLOGY - GENERAL ORDER MARGARET Final Result Performing Organization Address City/[facility]/ZIP Co de Phone Number [facility] [address] [place] [address], [place] [phone] * (ABNORMAL) Complete blood count (05/28/2024 5:02 AM EDT) Only the most recent of9 resultswithin the time period is included. [facility] WBC 10.3 4.8 - 10.8 K/mcL LAB HEMETOLOGY METHOD 05/28/2024 9:26 AM [facility] RBC 3.30(L) 3.80 - 4.80 M/mcL LAB HEMETOLOGY METHOD 05/28/2024 9:26 AM [facility] Hemoglobin 8.7(L) 11.5 - 16.0 g/dL LAB HEMETOLOGY METHOD 05/28/2024 9:26 AM [facility] Hematocrit 28.7(L) 35.0 - 47.0 % LAB HEMETOLOGY METHOD 05/28/2024 9:26 AM [facility] MCV 87.0 79.0 - 98.0 FL LAB HEMETOLOGY METHOD 05/28/2024 9:26 AM [facility] MCH 26.4(L) 27.0 - 32.0 pcg LAB HEMETOLOGY METHOD 05/28/2024 9:26 AM [facility] MCHC 30.3(L) 32.0 - 37.0 g/dL LAB HEMETOLOGY METHOD 05/28/2024 9:26 AM [facility] RDW 14.9 11.0 - 15.0 % LAB HEMETOLOGY METHOD 05/28/2024 9:26 AM [facility] Platelets 281 130 - 400 K/mcL LAB HEMETOLOGY METHOD 05/28/2024 9:26 AM [facility] MPV 10.2 7.0 - 11.0 FL LAB HEMETOLOGY METHOD 05/28/2024 9:26 AM [facility] NRBC 0.0 <1.0 % LAB HEMETOLOGY METHOD 05/28/2024 9:26 AM [facility] NRBC Absolute 0.00 <0.10 K/mcL LAB HEMETOLOGY METHOD 05/28/2024 9:26 AM [facility] Blood Venous blood specimen / Unknown Venipuncture / Unknown 05/28/2024 5:02 AM EDT 05/28/2024 9:04 AM EDT us Matias Bowling MD LAB BLOOD ORDERABLES Final Resul t [facility] [address] [place] [address], [place] [phone] * (ABNORMAL) Comprehensive metabolic panel (05/28/2024 5:02 AM EDT) Only the most recent of7 resultswithin the time period is included. Sodium 137 133 - 145 mmol/L LAB CHEMISTRY METHOD 05/28/2024 10:13 AM [facility] Potassium 4.2 3.5 - 5.5 mmol/L LAB CHEMISTRY METHOD 05/28/2024 10:13 AM [facility] Chloride 103 96 - 110 mmol/L LAB CHEMISTRY METHOD 05/28/2024 10:13 AM [facility] CO2 28 21 - 32 mmol/L LAB CHEMISTRY METHOD 05/28/2024 10:13 AM [facility] Anion Gap 6 3 - 11 LAB CHEMISTRY METHOD 05/28/2024 10:13 AM [facility] Glucose 141(H) 70 - 100 mg/dL LAB CHEMISTRY METHOD 05/28/2024 10:13 AM [facility] BUN 13 5 - 25 mg/dL LAB CHEMISTRY METHOD 05/28/2024 10:13 AM [facility] Creatinine 1.21(H) 0.50 - 1.10 mg/dL LAB CHEMISTRY METHOD 05/28/2024 10:13 AM [facility] eGFR 49(L) >=60 mL/min/1. 73m2 LAB CHEMISTRY METHOD 05/28/2024 10:13 AM [facility] Comment:Calculation based on the??Chronic Kidney Disease Epidemiology Collaboration (CKD-EPI) equation refit??without adjustment for race. BUN/Creatinine Ratio 10.7 LAB CHEMISTRY METHOD 05/28/2024 10:13 AM [facility] Calcium 8.6 8.5 - 10.5 mg/dL LAB CHEMISTRY METHOD 05/28/2024 10:13 AM [facility] AST (SGOT) 12 10 - 42 unit/L LAB CHEMISTRY METHOD 05/28/2024 10:13 AM [facility] ALT (SGPT) 19 10 - 60 unit/L LAB CHEMISTRY METHOD 05/28/2024 10:13 AM [facility] Alkaline Phosphatase 147(H) 42 - 121 unit/L LAB CHEMISTRY METHOD 05/28/2024 10:13 AM [facility] Total Protein 6.3 6.0 - 8.0 g/dL LAB CHEMISTRY METHOD 05/28/2024 10:13 AM [facility] Albumin 3.1(L) 3.2 - 5.0 g/dL LAB CHEMISTRY METHOD 05/28/2024 10:13 AM [facility] Total Bilirubin 0.2 0.0 - 1.4 mg/dL LAB CHEMISTRY METHOD 05/28/2024 10:13 AM [facility] Blood Venous blood specimen / Unknown Venipuncture / Unknown 05/28/2024 5:02 AM EDT 05/28/2024 9:04 AM EDT us Matias Bowling MD LAB BLOOD ORDERABLES Final Resul t [facility] [address] [place] [address], [place] [phone] * (ABNORMAL) Basic metabolic panel (05/22/2024 8:23 AM EDT) Only the most recent of2 resultswithin the time period is included. [facility] Signature Sodium 134 133 - 145 mmol/L LAB CHEMISTRY METHOD 05/22/2024 11:37 AM [facility] Potassium 5.2 3.5 - 5.5 mmol/L LAB CHEMISTRY METHOD 05/22/2024 11:37 AM [facility] Chloride 102 96 - 110 mmol/L LAB CHEMISTRY METHOD 05/22/2024 11:37 AM [facility] CO2 25 21 - 32 mmol/L LAB CHEMISTRY METHOD 05/22/2024 11:37 AM [facility] Anion Gap 7 3 - 11 LAB CHEMISTRY METHOD 05/22/2024 11:37 AM [facility] Glucose 163(H) 70 - 100 mg/dL LAB CHEMISTRY METHOD 05/22/2024 11:37 AM [facility] BUN 18 5 - 25 mg/dL LAB CHEMISTRY METHOD 05/22/2024 11:37 AM [facility] Creatinine 1.65(H) 0.50 - 1.10 mg/dL LAB CHEMISTRY METHOD 05/22/2024 11:37 AM [facility] eGFR 34(L) >=60 mL/min/1. 73m2 LAB CHEMISTRY METHOD 05/22/2024 11:37 AM [facility] Comment:Calculation based on the??Chronic Kidney Disease Epidemiology Collaboration (CKD-EPI) equation refit??without adjustment for race. BUN/Creatinine Ratio 10.9 LAB CHEMISTRY METHOD 05/22/2024 11:37 AM [facility] Calcium 8.8 8.5 - 10.5 mg/dL LAB CHEMISTRY METHOD 05/22/2024 11:37 AM [facility] Blood Venous blood specimen / Unknown Venipuncture / Unknown 05/22/2024 8:23 AM EDT 05/22/2024 10:31 AM EDT us Matias Bowling MD LAB BLOOD ORDERABLES Final Resul t [facility] [address] [place] [address], from Last 3 Months Additional Health Concerns Infection Onset Date Last Indicated C. difficile 05/29/2024 05/29/2024 Insurance [facility] MEDIC[facility] Member Subscriber Plan / Payer (Ef fective 2022-Present) Name:Trish Hunter Relation to Subscriber:Self Name:Trish Hunter Payer ID:[id number] Group ID:[id number] Type:Not on file Address: [place] [address] [address] [phone] Care Teams Product Grader Relationship Specialty Start Date End Date Matias Bowling MD [address] [place] [address] [address] [place] [phone] PCP - General Family Medicine 04/16/24
--- OUTSIDE RECORDS SUMMARY | 2024-06-04 09:53 | XMS_ITS | Clinical Summary ---
Author Organization [employer] Address [address] [place] [address] Care Team Providers Care Procurement Director Name Role Phone Ethel Chase Primary Care Provider Vaishnavi Laird PharmD Unavailable [phone] Allergies Active Allergy Reactions Criticality Noted [...] CAPSULES BY MOUTH EVERY DAY AT BEDTIME Active venlafaxine XR (Effexor XR) 150 MG 24 hr capsule TAKE 1 CAPSULE BY MOUTH EVERY MORNING WITH 75mg CAPSULE 023 Active venlafaxine XR (Effexor XR) 75 MG 24 hr capsule Active LORazepam (Ativan) 1 MG tablet TAKE 1 TABLET BY MOUTH TWICE A DAY NEEDED FOR ANXEITY 023 Active Continuous Blood Gluc Director Of Hotel Operations (FreeStyle Gerard 2 Lawrence) deviceIndications:P oorly controlled diabetes mellitus ([facility]) Use to scan sensor at least every 8 hours, as directed, for CGM 1 each 023 Active loratadine (Claritin) 10 MG tablet TAKE [...] Test) test stripIndications:Po mabel controlled diabetes mellitus ([facility]) USE DIRECTED TO TEST BLOOD [...] of candidiasis. Do not swallow. 12 g 024 2024 Active meclizine (Antivert) 25 MG tablet Take 1 tablet (25 mg) by mouth if needed in the morning, at noon, and at bedtime for dizziness. 30 tablet 024 2024 Active OneTouch Delica Lancets 33G miscIndications:Typ e 2 diabetes mellitus without complication, without long-term current use of insulin ([facility]) USE TO TEST BLOOD SUGAR TWICE DAILY 100 each 11 024 Active Ventolin HFA 108 (90 Base) MCG/ACT [...] complication, without long-term current use of insulin ([facility]) Administer 3 mg via 1 device into the nostril for hypoglycemia with loss of consciousness. If no response after 15 minutes administer an additional dose via 2nd device into other nostril. 2 each 1 Active Semaglutide, 2 MG/DOSE, (Ozempic, 2 MG/DOSE,) 8 MG/3ML solution pen-injectorIndicat ions:Type 2 diabetes mellitus without complication, without long-term current use of insulin ([facility]) Inject 2 mg under the skin 1 (one) time per week. 3 mL Active glucose 4 g chewable tablet Chew 4 tablets (16 g) if needed for low blood sugar (BG < 70 mg/dL). 20 tablet 5 024 2024 Active Continuous Glucose Sensor (FreeStyle Geradr 2 Sensor) miscIndications:Poo rly controlled diabetes mellitus (CMS/HCC) USE DIRECTED CHANGE EVERY 14 DAYS 2 each 11 Active baclofen (Lioresal) 10 MG tablet Take [...] AT BEDTIME 180 capsule 3 Active Calcium Carb-Cholecalcifero l (Oyster Shell Calcium [...] complication, without long-term current use of insulin ([facility]) Use to inject insulin 1 times daily 100 each 3 024 Active insulin degludec (Tresiba FlexTouch) 100 UNIT/ML injectionIndication s:Type 2 diabetes mellitus without complication, without long-term current use of insulin ([facility]) Inject 32 units subQ once [...] with other specified complication, unspecified whether intermediate frame tender insulin use ([facility]/H[facility]) TAKE 1 TABLET BY MOUTH EVERY EVENING 90 tablet 1 025 Active pantoprazole (ProtoNix) 40 MG EC tabletIndications:C hronic gastroesophageal reflux disease TAKE 1 TABLET BY MOUTH EVERY MORNING 90 tablet 1 025 Active gabapentin (Neurontin) 600 MG tablet TAKE 1 TABLET BY MOUTH TWICE DAILY IN THE MORNING AND AT BEDTIME 60 tablet 5 025 Active Alcohol Swabs (Alcohol Prep) 70 % padsIndications:Poo rly controlled diabetes mellitus (CMS/HCC) USE DIRECTED BEFORE INSULIN INJECTION AND sensor CHANGE 100 each 025 Active Alcohol Swabs (Alcohol Pads) 70 % padsIndications:Poo rly controlled diabetes mellitus (CMS/HCC) Use as directed daily prior to insulin injections and biweekly prior to CGM sensor changes. 100 each 024 2024 Discontinued Active Problems Problem Noted [...] Encounters Date Type Department Care Team Description 05/20/2024 Refill [facility] [address] [place] [address] Vaishnavi Laird PharmD Poorly controlled diabetes mellitus (CMS/HCC) 04/28/2024 Refill [facility] [address] [place] [address] Ethel Chase DO 04/16/2024 Refill [facility] [address] [place] [address] Ethel Chase DO 04/15/2024 Orders Only GENERIC EXTERNAL DATA DEPARTMENT Provider, Generic External Data 04/14/2024 Orders Only GENERIC EXTERNAL DATA DEPARTMENT Provider, Generic External Data 04/12/2024 Orders Only GENERIC EXTERNAL DATA DEPARTMENT Provider, Generic External Data 04/07/2024 Orders Only GENERIC EXTERNAL DATA DEPARTMENT Provider, Generic External Data 04/07/2024 Refill [facility] [address] [place] [address] Ethel Chase, Type 2 diabetes mellitus with other specified complication, unspecified whether intermediate frame tender insulin use (CMS/HCC); Chronic gastroesophageal reflux disease 04/06/2024 Refill [facility] [address] [place] [address] Ethel Chase, Other chronic pain 03/26/2024 Orders Only GENERIC EXTERNAL DATA DEPARTMENT Provider, Generic External Data 03/25/2024 Orders Only GENERIC EXTERNAL DATA DEPARTMENT Provider, Generic External Data 03/24/2024 Orders Only GENERIC EXTERNAL DATA DEPARTMENT Provider, Generic External Data 03/23/2024 Refill [facility] [address] [place] [address] Ethel Chase, Other chronic pain 03/23/2024 Telephone [facility] [address] [place] [address] Ethel Chase, Pre-Op 03/23/2024 Refill [facility] [address] [place] [address] Ethel Chase, Other chronic pain 03/10/2024 Refill [facility] [address] [place] [address] Ethel Chase, Other chronic pain from Last [...] Whole Blood 136(H) 60 - 115 mg/dL [facility] Comment:METER #: [id number] 04/15/2024 11:4 4 AM EST 04/15/2024 11:48 AM EST us Generic External Data Provider LAB BLOOD ORDERAB LES Final Result Performing Organization Address City/State/[facility] Co de Phone Number [facility] [address] [place] [phone] * (ABNORMAL) Basic Metabolic Panel (04/15/2024 9:44 AM EST) Sodium 138 135 - 145 mmol/L [facility] Potassium 4.3 3.3 - 5.1 mmol/L [facility] Chloride 102 96 - 108 mmol/L [facility] Carbon Dioxide 24 22 - 29 mmol/L [facility] Anion Gap 16 12 - 20 [facility] Urea Nitrogen (BUN) 15 9 - 16 mg/dL [facility] Creatinine, Serum 1.10 0.5 - 1.4 mg/dL [facility] Creatinine Clr Calc Pharmacy 59.6 [facility] Comment:Provided height and weight: 160.02 cm,114.305 kg.eGFR (calculated from the MDRD study equation) and eCrCl(calculated from the Cockcroft-Gault equation) are based ondifferent parameters and may not yield comparable results.If eCrCl result is absurd, please check patient'sheight/weight. Estimated Glomerular Filt Rate 49 [facility] Comment:Chronic Kidney Disea se: Estimated GFR < 60 mL/min/1.03s5Swyvwq Kidney Disease: Estimated GFR < 15 mL/min/1.73m2 Glucose 154(H) 60 - 115 mg/dL [facility] Calcium 9.0 8.4 - 10.2 mg/dL [facility] 04/15/2024 9:44 AM EST 04/15/2024 9:54 AM EST us Generic External Data Provider LAB BLOOD ORDERAB LES Final Result [facility] [address] [place] [phone] [phone] * SARS-CoV-2 RNA, Influenza A/B, and RSV RNA, Ql NAAT (04/14/2024 10:44 AM EST) Influenza A PCR NEGATIVE Negative [facility] Influenza B PCR NEGATIVE Negative [facility] Resp Syncy Virus RNA Qual PCR NEGATIVE Negative [facility] SARS COV2 PCR NEGATIVE Negative [facility] Comment:All test results mus t [...] use by authorized laboratories.Testing performed on the [facility] GeneXpert utilizingreal-time RT-PCR.All SARS CoV2 and positive influenza A/B results arereported to [facility]. 04/14/2024 10:4 4 AM EST 04/14/2024 10:54 AM EST us Generic External Data Provider LAB MICROBIOLOGY - GENERAL ORDERABLES Final Result [facility] [address] [place] [phone] * CT Kne w/o Contrast Left (04/12/2024 4:41 PM EST) Anatomical Region Laterality Modality Lower Extremities, Knee Left Computed Tomography 04/12/2024 4:41 PM EST Narrative 04/12/2024 4:43 PM EST ? [facility] ?[address] ?[place] [address] ? CT Scan Report ? Signed ? Patient: Trish Cameron ?MR#: ?? [id number] ? : 1955 ?Acct:[id number] ? Age/Sex: 68 / F ?ADM Date: 04/12/24 ? Loc: HO.ED ? Attending Dr: ? Ordering Physician: Kierra Betts NP ?? Date of Service: 04/12/24 ?? Procedure(s): CT knee LT wo IV con ?? Accession Number(s): [id number] ? cc: Ethel Chase DO; Kierra Betts NP ? Report Number: ?? [id number]: Total DLP = ?0.00 mGy-cm ? CLINICAL HISTORY: femur fx, recent TKA revision ? CT left knee without contrast ? Comparison: CR/NJ - XR KNEE LT 4V - 04/12/24 [...] by David Gonzalez MD in OV> ? 04/12/241642 ? DD/ 40 ? TD/TT: 02/16/25 1641 ? Sole Filler: ? Procedure Note Donotuseinterpreter, Image - 04/12/[address] [address] [address] Scan Report Signed Patient: Trish Cameron MMR#: [id number] : 1955cct:[id number] Age/Sex: 68 / FADM Date: 04/12/24 Loc: HO.ED Attending Dr: Ordering Physician: Kierra Betts NP Date of Service: 04/12/24 Procedure(s): CT knee LT wo IV con Accession Number(s): [id number] cc: Ethel Chase DO; Kierra Betts NP Report Number: [id number]: Total DLP = 0.00 mGy-cm CLINICAL HISTORY: femur fx, recent TKA revision CT left knee without contrast Comparison: CR/NJ - XR KNEE LT 4V - 04/12/24 [...] 04/12/24 1643 DD/ 1641 TD/TT: 04/12/24 1641 Sole Filler: [facility] External Provider IMG CT PROCEDURES Edited Result - Final * CT Head w/o Contrast (04/12/2024 4:31 PM EST) Anatomical Region Laterality Modality Head, Neck Computed Tomogra phy 04/12/2024 4:31 PM EST Narrative 04/12/2024 4:32 PM EST ? [facility] ?[address] ?[place] [address] ? CT Scan Report ? Signed ? Patient: Dale Oc,Vane ?MR#: ?? [id number] ? : 1955 ?Acct:[id number] ? Age/Sex: 68 / F ?ADM Date: 04/12/24 ? Loc: HO.ED ? Attending Dr: ? Ordering Physician: Kierra Betts NP ?? Date of Service: 04/12/24 ?? Procedure(s): CT head/brain wo IV con ?? Accession Number(s): [id number] ? cc: Ethel Chase DO; Kierra Betts NP ? Report Number: ?? [id number]: Total DLP = 1028.00 mGy-cm ? CLINICAL [...] DD/ 1631 ? TD/TT: 04/12/24 1631 ? Sole Filler: ? Procedure Note Carito, Image - 04/12/2024 [place] [address] [place] [address] CT Scan Report Signed Patient: Trish Cameron MMR#: [id number] : 6Acct:[id number] Age/Sex: 68 / FADM Date: 04/12/24 Loc: HO.ED Attending Dr: Ordering Physician: Kierra Betts NP Date of Service: 04/12/24 Procedure(s): CT head/brain wo IV con Accession Number(s): [id number] cc: Ethel Chase DO; Kierra Betts NP Report Number: [id number]: Total DLP = 1028.00 mGy-cm CLINICAL HISTORY: [...] 04/12/24 1631 DD/ 1631 TD/TT: 04/12/24 1631 Sole Filler: us [facility] External Provider IMG CT PROCEDURES Edited Result - Final * US VENOUS DUPLEX LE LT (04/12/2024 3:15 PM EST) Anatomical Region Laterality Modality Abdomen Ultrasound 04/12/2024 3:15 PM EST Narrative 04/12/2024 3:17 PM EST ? [facility] [place] [facility] ?[address] ?[place] [address] ? Ultrasound Report ? Signed ? Patient: Dale Oc,Vane ?MR#: ?? [id number] ? : 1955 ?Acct:[id number] ? Age/Sex: 68 / F ?ADM Date: 04/12/24 ? Loc: HO.ED ? Attending Dr: ? Ordering Physician: Kierra Betts OCCUPATIONAL HEALTH TECHNICIAN ?? Date of Service: 04/12/24 ?? Procedure(s): US venous duplex LE LT ?? Accession Number(s): [id number] ? cc: Ethel Chase DO; Kierra Betts [...] DD/ 1515 ? TD/TT: 04/12/24 1515 ? Sole Filler: ? Procedure Note Cariot, Image - 04/12/2024 [place] [address] Ultrasound Report Signed Patient: Trish Cameron [facility]#: [id number] : 6Acct:[id number] Age/Sex: 68 / FADM Date: 04/12/24 Loc: HO.ED Attending Dr: Ordering Physician: Kierra Betts NP Date of Service: 04/12/24 Procedure(s): US venous duplex LE LT Accession Number(s): [id number] cc: Ethel Chase DO; Kierra Betts NP [...] 04/12/24 1517 DD/ 1515 TD/TT: 04/12/24 1515 Sole Filler: us [facility] External Provider IMG US PROCEDURES Edited Result - Final * XR Knee 4+ Views Left (04/12/2024 2:32 PM EST) Anatomical Region Laterality Modality Lower Extremities, Knee Left Radiogra phic Imaging 04/12/2024 2:32 PM EST Narrative 04/12/2024 2:34 PM EST ? [facility] ?[address] ?[place] [address] ?XRay Report ? Signed ? Patient: Trish Cameron ?MR#: ?? [id number] ? : 1955 ?Acct:[id number] ? Age/Sex: 68 / F ?ADM Date: 04/12/24 ? Loc: HO.ED ? Attending Dr: ? Ordering Physician: Kierra Betts NP ?? Date of Service: 04/12/24 ?? Procedure(s): XR knee LT 4V ?? Accession Number(s): [id number] ? cc: Ethel Chase DO; Kierra Betts NP ? CLINICAL HISTORY: fall, hx knee replacement with revision ? 4 view left knee ? Comparison: CR/NJ - XR KNEE LT 2V - 03/24/24 [...] DD/ 1432 ? TD/TT: 04/12/24 1432 ? Sole Filler: ? Procedure Note Carito Image - 04/12/[address] [address] XRay Report Signed Patient: Trish Cameron MMR#: [id number] : 6Acct:[id number] Age/Sex: 68 / FADM Date: 04/12/24 Loc: HO.ED Attending Dr: Ordering Physician: Kierra Betts NP Date of Service: 04/12/24 Procedure(s): XR knee LT 4V Accession Number(s): [id number] cc: Ethel Chase DO; Kierra Betts NP CLINICAL HISTORY: fall, hx knee replacement with revision 4 view left knee Comparison: CR/NJ - XR KNEE LT 2V - 03/24/24 [...] 04/12/24 1433 DD/ 1432 TD/TT: 04/12/24 1432 Sole Filler: us [facility] External Provider IMG XR PROCEDURES Edited Result - Final * Blood Culture (Second) (04/12/2024 1:55 PM EST) Blood Venous blood specimen / Unknown 04/12/2024 1:55 PM EST 04/12/2024 2:03 PM EST Comment:Blood Narrative [facility] - 04/17/2024 4:03 PM EST Blood Culture (Second) No growth after 5 days. Specimen Source: Blood Generic External Data Provider LAB MICROBIOLOGY - GENERAL ORDERABLES Final Result [facility] [address] [place] [phone] * Blood Culture (First) (04/12/2024 1:53 PM EST) Blood Venous blood specimen / Unknown 04/12/2024 1:53 PM EST 04/12/2024 2:00 PM EST Comment:Blood Narrative [facility] - 04/17/2024 4:01 PM EST Blood Culture (First) No growth after 5 days. Specimen Source: Blood us Generic External Data Provider LAB MICROBIOLOGY - GENERAL ORDERABLES Final Result [facility] [address] [place] [address] [phone] * (ABNORMAL) CBC auto differential (04/12/2024 1:53 PM EST) Only the most recent of3 resultswithin the time period is included. White Blood Count 11.3(H) 4.8 - 10.8 X10*3/uL [facility] Red Blood Count 3.33(L) 4.20 - 5.50 X10*6/uL [facility] Hemoglobin 9.1(L) 12.0 - 16.0 g/dl [facility] Hematocrit 28.2(L) 37.0 - 47.0 % [facility] Mean Corpuscular Volume 84.7 80.0 - 98.0 fL [facility] Mean Corpuscular Hemoglobin 27.3 27.0 - 33.0 pg [facility] Mean Corpuscular HGB Conc 32.3 31.0 - 35.0 g/dl [facility] Red Cell Distribution Width 14.0 11.0 - 16.0 % [facility] Platelet Count 411(H) 160 - 400 X10*3/uL [facility] Mean Platelet Volume 9.0(L) 9.4 - 12.3 fL [facility] Neutrophils Percent Auto 72.1 45 - 73 % [facility] Imm Gran Pct Auto 0.6(H) 0.0 - 0.4 % [facility] Lymphocytes Percent Auto 18.6(L) 20 - 40 % [facility] Monocytes Percent Auto 7.1 2 - 11 % [facility] Eosinophils Percent Auto 1.2 0 - 4 % [facility] Basophils Percent Auto 0.4 0 - 2 % [facility] NRBC Pct Auto 0.0 0.0 - 0.2 /100WBC [facility] Neutrophils Absolute Auto 8.2 2.0 - 8.3 x10*3/uL [facility] Imm Gran Abs Auto 0.07(H) 0.00 - 0.03 X10*3/uL [facility] Lymphocytes Absolute Auto 2.1 1.2 - 4.9 X10*3/uL [facility] Monocytes Absolute Auto 0.8 0.1 - 1.2 X10*3/uL [facility] Eosinophils Absolute Auto 0.1 0.0 - 0.4 X10*3/uL [facility] Basophils Absolute Auto 0.1 0.0 - 0.2 X10*3/uL [facility] NRBC Abs Auto 0.000 0.0 - 0.012 X10*3/uL [facility] 04/12/2024 1:53 PM EST 04/12/2024 2:00 PM EST us Generic External Data Provider LAB BLOOD ORDERAB LES Final Result [facility] [address] [place] [phone] * Partial Thromboplastin Time, Activated (APTT) (04/12/2024 1:53 PM EST) Partial Thromboplastin Time 31.7 26.0 - 36.8 SEC [facility] Comment:For information rega rding the monitoring of direct thrombininhibitors, please refer to Pharmacy. 04/12/2024 1:53 PM EST 04/12/2024 2:00 PM EST us Generic External Data Provider LAB BLOOD ORDERAB LES Final Result Performing Organization Address [facility] Co de Phone Number [facility] [address] [place] [phone] * (ABNORMAL) Sed Rate by Modified Westergren (04/12/2024 1:53 PM EST) Erythrocyte Sedimentation Rate 100(H) 0 - 20 MM/HR [facility] Comment:Patients with polycy themia and many hemoglobin abnormalitiesmay have depressed sed rates whereas patients with anemiamay have elevated sed rates. 04/12/2024 1:53 PM EST 04/12/2024 2:00 PM EST Generic External Data Provider LAB BLOOD ORDERAB LES Final Result Performing Organization Address [facility] Phone Number [facility] [address] [place] [phone] * (ABNORMAL) Prothrombin Time-INR (04/12/2024 1:53 PM EST) Prothrombin Time 12.6(H) 10.9 - 12.4 SEC [facility] INTERNATIONAL NORM RATIO 1.1 0.9 - 1.1 [facility] Comment:INTERNATIONAL NORMAL IZED RATIO (INR) REFERENCE [...] ORDERAB LES Final Result Performing Organization Address [facility] Co de Phone Number [facility] [address] [place] [phone] * (ABNORMAL) C-reactive Protein (04/12/2024 1:53 PM EST) [facility] C Reactive Protein 11.79(H) < or = 0.50 mg/dL [facility] 04/12/2024 1:53 PM EST 04/12/2024 2:00 PM EST Generic External Data Provider LAB BLOOD ORDERAB LES Final Result Performing Organization Address [facility] Co de Phone Number [facility] [address] [place] [phone] * Lactic Acid (04/12/2024 1:53 PM EST) [facility] Lactic Acid 2.0 0.5 - 2.0 mmol/L [facility] 04/12/2024 1:53 PM EST 04/12/2024 2:00 PM EST [employer] External Data Provider LAB BLOOD ORDERAB LES Final Result Performing Organization Address [facility] de Phone Number [facility] [address] [place] [phone] * (ABNORMAL) Comprehensive Metabolic Panel (04/12/2024 1:53 PM EST) [facility] Sodium 136 135 - 145 mmol/L [facility] Potassium 5.3(H) 3.3 - 5.1 mmol/L [facility] Chloride 101 96 - 108 mmol/L [facility] Carbon Dioxide 25 22 - 29 mmol/L [facility] Anion Gap 15 12 - 20 [facility] Urea Nitrogen (BUN) 18(H) 9 - 16 mg/dL [facility] Creatinine, Serum 1.45(H) 0.5 - 1.4 mg/dL [facility] Creatinine Clr Calc Pharmacy 45.2 [facility] Comment:Provided height and weight: 160.02 cm,114.305 kg.eGFR (calculated from the MDRD study equation) and eCrCl(calculated from the Cockcroft-Gault equation) are based ondifferent parameters and may not yield comparable results.If eCrCl result is absurd, please check patient'sheight/weight. Estimated Glomerular Filt Rate 36 [facility] Comment:Chronic Kidney Disea se: Estimated GFR < 60 mL/min/1.55z6Mgyqck Kidney Disease: Estimated GFR < 15 mL/min/1.73m2 Glucose 148(H) 60 - 115 mg/dL [facility] Calcium 10.0 8.4 - 10.2 mg/dL [facility] Bilirubin, Total 0.3 0.0 - 1.0 mg/dL [facility] Aspartate Amino Transferase 45(H) 5 - 31 U/L [facility] Alanine Aminotransferase 29 0 - 31 U/L [facility] Total Protein 8.2(H) 6.5 - 8.0 g/dL [facility] Albumin Level 3.7 3.5 - 5.0 g/dL [facility] Alkaline Phosphatase 202(H) 39 - 117 U/L [facility] 04/12/2024 1:53 PM EST 04/12/2024 2:00 PM EST us Generic External Data Provider LAB BLOOD ORDERAB LES Final Result [facility] [address] [place] [phone] * (ABNORMAL) Bacterial Vaginosis (04/07/2024 10:22 AM EST) TRICHOMONAS VAGINALIS DETECTION BY PCR NOT DETECTED Not Detect [facility] BACTERIAL VAGINOSIS DETECTION BY PCR NEGATIVE Negative [facility] Comment:The BV organism targ ets of [...] GROUP DETECTION BY PCR DETECTED(A) Not Detect [facility] Kayy glab krusei PCR NOT DETECTED Not Detect [facility] 04/07/2024 10:2 2 AM EST 04/07/2024 3:47 PM EST us Generic External Data Provider LAB MICROBIOLOGY - GENERAL ORDERABLES Final Result [facility] [address] [place] [address] [phone] * (ABNORMAL) Basic Metabolic Panel, Fasting (03/26/2024 5:51 AM EST) Only the most recent of2 resultswithin the time period is included. Sodium 133(L) 135 - 145 mmol/L [facility] Potassium 4.1 3.3 - 5.1 mmol/L [facility] Chloride 101 96 - 108 mmol/L [facility] Carbon Dioxide 24 22 - 29 mmol/L [facility] Anion Gap 12 12 - 20 [facility] Urea Nitrogen (BUN) 15 9 - 16 mg/dL [facility] Creatinine, Serum 0.85 0.5 - 1.4 mg/dL [facility] Creatinine Clr Calc Pharmacy 75.9 [facility] Comment:Provided height and weight: 157.48 cm,114.8 kg.eGFR (calculated from the MDRD study equation) and eCrCl(calculated from the Cockcroft-Gault equation) are based ondifferent parameters and may not yield comparable results.If eCrCl result is absurd, please check patient'sheight/weight. Estimated Glomerular Filt Rate >60 [facility] Comment:Chronic Kidney Disea se: Estimated GFR < 60 mL/min/1.27s8Ncrijw Kidney Disease: Estimated GFR < 15 mL/min/1.73m2 Glucose Fasting 192(H) 60 - 99 mg/dL [facility] Comment:A fasting glucose of 126 mg/dl or greater on more than oneoccasion is considered diagnostic of diabetes. Calcium 8.8 8.4 - 10.2 mg/dL [facility] 03/26/2024 5:51 AM EST 03/26/2024 6:30 AM EST us Generic External Data Provider LAB BLOOD ORDERAB LES Final Result [facility] [address] [facility] [place] [address] [phone] * XR Knee 1-2 Views Left (03/24/2024 6:30 PM EST) Anatomical Region Laterality Modality Lower Extremities, Knee Left Radiogra phic Imaging 03/24/2024 6:30 PM EST Narrative 03/24/2024 6:32 PM EST ? [facility] ?[address] ?[place] [address] ?XRay Report ? Signed ? Patient: Trish Cameron ?MR#: ?? [id number] ? : 1955 ?Acct:[id number] ? Age/Sex: 68 / F ?ADM Date: 03/24/24 ? Loc: HO.S3 ?375-1 ? Attending Dr: Khushi Mathias PA-C ? Ordering Physician: Khushi Mathias PA-C ?? Date of Service: 03/24/24 ?? Procedure(s): XR knee LT 2V ?? Accession Number(s): [id number] ? cc: Ethel Chase DO; Khushi Mathias [...] DD/ 1830 ? TD/TT: 03/24/24 1830 ? Sole Filler: ? Procedure Note Donradhater, Image - 03/24/[address] [address] XRay Report Signed Patient: Trish Cameron MMR#: [id number] : 6Acct:[id number] Age/Sex: 68 / FADM Date: 03/24/24 Loc: .S3 375-[address]: Khushi Mathias PA-C Ordering Physician: Khushi Mathias PA-C Date of Service: 03/24/24 Procedure(s): XR knee LT 2V Accession Number(s): [id number] cc: Ethel Chase DO; Khushi Mathias PA-C [...] in OV> 03/24/241830 DD/ 29 TD/TT: 03/24/241829 Sole Filler: [facility] External Provider IMG XR PROCEDURES Final Result * Hemoglobin and Hematocrit (03/24/2024 10:53 AM EST) Hemoglobin 12.6 12.0 - 16.0 g/dl [facility] Hematocrit 38.6 37.0 - 47.0 % [facility] 03/24/2024 10:5 3 AM EST 03/24/2024 11:05 AM EST us Generic External Data Provider LAB BLOOD ORDERAB LES Final Result [facility] [address] [place] [phone] * (ABNORMAL) POCT glycosylated hemoglobin (Hgb A1c) (01/29/2024 10:35 AM EST) Pathologist [facility] Hemoglobin A1C 7.1(A) 4.0 - 6.0 % QC Media Lot # [id number] Lot# Expiration Date Blood Capillary blood specimen / Unknown 01/29/2024 10:35 AM EST Ethel Chase DO POINT OF CARE TEST ENTER/MARGARITA T ORDERABLES Final Result * Lipid Panel, Standard (11/11/2023 9:05 AM EDT) Triglycerides 128 <150 mg/dL [facility] Comment:Desirable Triglyceri de: less than 150 mg/dLBorderline High Triglyceride 150-199 mg/dLHigh Triglyceride: 200-499 mg/dLVery High Triglyceride: greater than or equal to 5OO mg/dL Cholesterol 108 <200 mg/dL [facility] Comment:Desirable Cholestero l: less than 200 mg/dLBorderline High Cholesterol: 200-239 mg/dLHigh Cholesterol: greater than 239 mg/dL LDL Cholesterol Calculated 42 <100 mg/dL [facility] Comment:Desirable LDL: less than 100 mg/dLNear Optimal/Above Optimal LDL: 110- 129 mg/dLBorderline High LDL: 130-159 mg/dLHigh LDL: 160-189 mg/dLVery High LDL: greater than or equal to 190 mg/dL HDL Cholesterol 41 >40 mg/dL [facility] Comment:Desirable HDL: great er than 40 mg/dL Note: This HDL assay may give artificially low results in patients with liver disease. Blood Venous blood specimen / Unknown 11/11/2023 9:05 AM EDT 11/11/2023 11:33 AM EDT us Ethel Chase DO LAB BLOOD ORDERABLES Final R esult [facility] [address] [place] [phone] * BI Mammogram Screening Tomosynthesis Bilateral (08/06/2023 11:15 AM EDT) Anatomical Region Laterality Modality Breast Bilateral Mammography 08/06/2023 11:1 5 AM EDT Narrative 09/05/2023 9:40 AM EDT ? [facility] ? [address] ?[place] [address] ? Mammography Report ? Signed ? Patient: Dale Renae,Vane ?MR#: ?? [id number] ? : 1955 ?Acct:[id number] ? Age/Sex: 67 / F ?ADM Date: 08/06/23 ? Loc: HO.MAMMO ? Attending Dr: Ethel Chase DO ? Ordering Physician: Ethel Chase DO ?Results: 1N ?? egative ? Date of Service: 08/06/23 ?Follow Up: 1 Year From Orig ?? inal Mammogram ? Procedure(s): MM tomosynthesis screening BI ?? Accession Number(s): [id number] ? cc: Ethel Chase DO ? EXAMINATION: [...] 0936 ? DD/ 1115 ? TD/TT: ? Sole Filler: ? Procedure Note Alek Arzate - 09/05/2023 [facility] [address] [place] [address] [place] [address] Mammography Report Signed Patient: Trish Cameron MMR#: [id number] : 6Acct:[id number] Age/Sex: 67 / FADM Date: 08/06/23 Loc: HO.MAMMO Attending Dr: Ethel Chase DO Ordering Physician: Ethel Chaseults: 1N egative Date of Service: 08/06/23Follow Up: 1 Year From Orig ina Mammogram Procedure(s): MM tomosynthesis screening BI Accession Number(s): [id number] cc: Ethel Chase DO EXAMINATION: MM SCREENING [...] in OV> 09/05/23 0936 DD/ 1115 TD/TT: Sole Filler: Ethel Chase DO IMG BI PROCEDURES Final Resu lt * Albumin, Random Urine W/Creatinine (03/13/2023 9:38 AM EST) Creatinine, Urine 131.57 mg/dL [facility] Microalbumin Urine 6.0 mg/L [facility] Microalbum Creatinine Ratio Ur 4.5 <30 ug/mg cr [facility] Comment:Albumin/Creatinine R atio Reference Ranges: Normal: < 30 ug/mg creatinine Microalbuminuria: 30 - 300 ug/mg creatinineClinical Albuminuria: > 300 ug/mg creatinine 03/13/2023 9:38 AM EST 03/13/2023 11:25 AM EST Ethel Chase DO LAB URINE ORDERABLES Final R esult [facility] [address] [place] [address] [phone] * HEPATITIS C ANTIBODY RFLX (10/31/2019 9:40 AM EDT) HEPATITIS C ANTIBODY NONREACTIVE NONREACTIVE [facility] Comment: Antibodies to HCV not detected; does not exclude early acute HCV infection. 10/31/2019 9:40 AM EDT Ethel Chase DO HISTORICAL/NON ORDERABLE LAB S Final Result Performing Organization Address City/[facility] Co de Phone Number [facility] [address] [place] [address], * Hm Colonoscopy (03/03/2019) Colonoscopy follow up in 5 years Historical Provider HEALTH MAINTENANCE Edited Result - Final from Last 3 Months or Most Recently Relevant to Health Maintenance [place] [address] [address] - [employer] Care Teams Procurement Director Relationship Specialty Start Date End Date Ethel Chase DO [address] [place] [address] PCP - General Family Medicine 10/12/13 Vaishnavi Laird PharmD [address] [place] [address] Pharmacist Internal Medicine 02/07/23
--- OUTSIDE RECORDS SUMMARY | 2024-06-04 09:54 | XMS_ITS | Encounter Summary ---
Author Organization [employer] Address [address] [facility] 7t [place] [address] Care Team Providers Care Formula Maker Name Role Phone Ethel Chase DO Primary Care Provider [phone] Vaishnavi Laird PharmD Unavailable [phone] Reason for Visit * Reason Onset Date Comments Appointment Request 03/02/2024 Encounter Details Date Type Department Care Team ([facility] st Contact Info) Description 03/02/2024 Telephone [facility] [address] [place] [address] Ethel Chase DO [address] [place], [place] [phone] Appointment Request Social History Tobacco Use Types [...] would like to reschedule. Please contact pt: [phone] (Maltese) documented in this encounter Plan of Treatment [...] documented as of this encounter Care Teams Formula Maker Relationship Specialty Start Date End Date Ethel Chase DO [address] [place] [address] PCP - General Family Medicine 10/12/13 Vaishnavi Laird PharmD [address] [place] [address] Pharmacist Internal Medicine 02/07/23 documented as of this encounter
--- OUTSIDE RECORDS SUMMARY | 2024-06-04 09:54 | XMS_ITS | Encounter Summary ---
Author Organization [facility] Address [address] [place] [address] Care Team Providers Care Police Radio Dispatcher Name Role Phone Matias Bowling MD Primary Care Provider [phone] Encounter Details Date Type Department Care Team (Late st Contact Info) Description 05/30/2024 Lab Requisition [facility] - Main Lab [address] [facility] [place] [address] Matias Bowling MD 38 [facility] [address] [place], [phone] Diarrhea, unspecified Social History Tobacco Use [...] ORDER MARGARET Final Result Performing Organization Address City/[facility]/ZIP Co de Phone Number [facility] [address] [place] [address], [place] [phone] * Occult blood stool, guaiac (05/29/2024 1:50 PM EDT) Occult Blood, Stool #1 Negative Negative 05/30/2024 9:30 AM EDT [facility] Stool Rectum structure / Unknown Non-blood Collection / Unknown 05/29/2024 1:50 PM EDT 05/30/2024 8:36 AM EDT Matias Bowling MD LAB BODY FLUIDS AND STOOLS ORDER MARGARET Final Result Performing Organization Address [facility]/ZIP Co de Phone Number [facility] [address] [place] [address], [place] [phone] * Ova and parasite examination (05/29/2024 1:50 [...] ORDER MARGARET Final Result Performing Organization Address [facility]/ZIP Co de Phone Number [facility] [address] [place] [address], [place] [phone] * Clostridium difficile toxin (05/29/2024 1:50 PM EDT) C difficile Toxins A+B, EIA 05/30/2024 9:47 AM EDT [facility] Comment:Refer to C. difficil e PCR assay for results. Stool Rectum structure / Unknown Non-blood Collection / Unknown 05/29/2024 1:50 PM EDT 05/30/2024 8:36 AM EDT Matias Bowling MD LAB MICROBIOLOGY - GENERAL ORDER MARGARET Final Result Performing Organization Address [facility] Co de Phone Number [facility] [address] [place] [address], [place] [phone] documented in this encounter Visit Diagnoses Diagnosis Diarrhea, unspecified documented in this encounter Additional Health Concerns Infection Onset Date Last Indicated Resolved Time C. difficile 05/29/2024 05/29/2024 C. Diff Rule-Out Infection 05/30/2024 05/29/2024 0 05/30/2024 9:47 AM EDT documented as of this encounter Care Teams Police Radio Dispatcher Relationship Specialty Start Date End Date Matias Bowlnig MD [address] [place] [phone] PCP - General Family Medicine 04/16/24 documented as of this encounter
--- OUTSIDE RECORDS SUMMARY | 2024-06-04 09:54 | XMS_ITS | Encounter Summary ---
Author Organization [employer] Address [address] [place] [address] 7[address] [place] [address] Care Team Providers Care Telemarketing Supervisor Name Role Phone Ethel Chase DO Primary Care Provider Vaishnavi Laird PharmD Unavailable Reason for Visit * Reason Comments Med Refill Encounter Details Date Type Department Care Team ([facility] st Contact Info) Description 02/07/2022 Refill [facility] [address] [place] [address] Ethel Chase DO [address] [place] [address] Diverticular disease (Primary Dx) Social History Tobacco [...] 3:31 PM EST TC placed to pt [phone] scan showed mild diverticulitis. Pt [...] is requesting medications to be sent to [facility] on [facility] in [facility] she cannot get to [facility] pharmacy before they close. RN will [...] scan results are back yet. RN checked [employer] system and results not yet available. CT was ordered STAT. RN called [facility] radiology who reports they do not have a warping machine operator on site or Saturday and RN would have to call [place] [facility] at [phone] and [facility] to request results to be read. RN called [phone] however phone rang continuously without an automated recording w/ options ora VM. RN returned call to [facility] to inform them no one answered at [place] [facility] and the phone just kept ringing. [facility] confirmed the number is correct and reports they will send a message to [place] [facility] to ask them to interpret the CT scan. RN will check before end of the day for interpretation report. * Telephone Encounter - Arcelia Wylie - 02/08/2022 2:07 PM EST Tc from [facility] requesting lab ordered be refaxed, public relations writer refaxed to [phone] * Telephone Encounter - Ethel Chase DO [...] documented as of this encounter Care Teams Telemarketing Supervisor Relationship Specialty Start Date End Date Ethel Chase DO [address] [place] [address] PCP - General Family Medicine 10/12/13 Vaishnavi Laird PharmD [address] [place] [address] Pharmacist Internal Medicine 02/07/23 documented as of this encounter
--- OUTSIDE RECORDS SUMMARY | 2024-06-04 09:54 | XMS_ITS | Encounter Summary ---
Author Organization [facility] Address [address] [place] [phone] Care Team Providers Care Music Cataloguer Name Role Phone Matias Bowling MD Primary Care Provider [phone] Encounter Details Date Type Department Care Team (Late st Contact Info) Description 04/28/2024 Lab Requisition [facility] - Main Lab [address] [facility] [place] [address] Matias Bowling MD 38 [facility] 204 [facility] [address] Diarrhea, unspecified Social History Tobacco [...] documented as of this encounter Care Teams Music Cataloguer Relationship Specialty Start Date End Date Matias Bowling MD 38 [facility] [address] [place] [address] PCP - General Family Medicine 04/16/24 documented as of this encounter
--- OUTSIDE RECORDS SUMMARY | 2024-06-04 09:54 | XMS_ITS | Encounter Summary ---
Author Organization [employer] Address [address] [facility] 7t [place] [address] Care Team Providers Care Bunker Worker Name Role Phone Etehl Chase DO Primary Care Provider [phone] Vaishnavi Laird PharmD Unavailable [phone] Reason for Visit * Reason Comments Med Refill Encounter Details Date Type Department Care Team ([facility] st Contact Info) Description 04/16/2024 Refill [facility]INE [address] [place] [address] Ethel Chase DO [address] [place] [address] Social History Tobacco Use Types Packs/Day Years [...] documented as of this encounter Care Teams Bunker Worker Relationship Specialty Start Date End Date Ethel Chase DO [address] [place] [address] PCP - General Family Medicine 10/12/13 Puia, Vaishnavi, PharmD [address] [place] [address] Pharmacist Internal Medicine 02/07/23 documented as of this encounter
--- OUTSIDE RECORDS SUMMARY | 2024-06-04 09:54 | XMS_ITS | Encounter Summary ---
Author Organization [facility] Address [address] [place] [address] Care Team Providers Care Riveter Hand Name Role Phone Matias Bowling MD Primary Care Provider [phone] Encounter Details Date Type Department Care Team (Late st Contact Info) Description 04/30/2024 Lab Requisition [facility] - Main Lab [address] [place] [address] Matias Bowling MD 38 [facility] [address] [place], [address] Essential (primary) hypertension Social History Tobacco [...] LAB CHEMISTRY METHOD 05/01/2024 12:26 PM EST [facility] Potassium 4.7 3.5 - 5.5 mmol/L LAB CHEMISTRY METHOD 05/01/2024 12:26 PM EST [facility] Chloride 110 96 - 110 mmol/L LAB CHEMISTRY METHOD 05/01/2024 12:26 PM [facility] CO2 21 21 - 32 mmol/L LAB CHEMISTRY METHOD 05/01/2024 12:26 PM [facility] Anion Gap 11 3 - 11 LAB CHEMISTRY METHOD 05/01/2024 12:26 PM [facility] Glucose 138(H) 70 - 100 mg/dL LAB CHEMISTRY METHOD 05/01/2024 12:26 PM [facility] BUN 18 5 - 25 mg/dL LAB CHEMISTRY METHOD 05/01/2024 12:26 PM [facility] Creatinine 1.07 0.50 - 1.10 mg/dL LAB CHEMISTRY METHOD 05/01/2024 12:26 PM [facility] eGFR 57(L) >=60 mL/min/1. 73m2 LAB CHEMISTRY METHOD 05/01/2024 12:26 PM [facility] Comment:Calculation based on the??Chronic Kidney Disease Epidemiology Collaboration (CKD-EPI) equation refit??without adjustment for race. BUN/Creatinine Ratio 16.8 LAB CHEMISTRY METHOD 05/01/2024 12:26 PM [facility] Calcium 9.3 8.5 - 10.5 mg/dL LAB CHEMISTRY METHOD 05/01/2024 12:26 PM [facility] Blood Venous blood specimen / Unknown Venipuncture / Unknown 05/01/2024 4:57 AM EST 05/01/2024 11:00 AM EST us Matias Bowling MD LAB BLOOD ORDERABLES Final Resul t [facility] [address] [place] [address], * (ABNORMAL) Complete blood count (05/01/2024 4:57 AM EST) WBC 9.9 4.8 - 10.8 K/mcL LAB HEMETOLOGY METHOD 05/01/2024 11:34 AM [facility] RBC 3.50(L) 3.80 - 4.80 M/mcL LAB HEMETOLOGY METHOD 05/01/2024 11:34 AM [facility] Hemoglobin 9.3(L) 11.5 - 16.0 g/dL LAB HEMETOLOGY METHOD 05/01/2024 11:34 AM [facility] Hematocrit 31.7(L) 35.0 - 47.0 % LAB HEMETOLOGY METHOD 05/01/2024 11:34 AM [facility] MCV 90.3 79.0 - 98.0 FL LAB HEMETOLOGY METHOD 05/01/2024 11:34 AM [facility] MCH 26.5(L) 27.0 - 32.0 pcg LAB HEMETOLOGY METHOD 05/01/2024 11:34 AM [facility] MCHC 29.3(L) 32.0 - 37.0 g/dL LAB HEMETOLOGY METHOD 05/01/2024 11:34 AM [facility] RDW 14.7 11.0 - 15.0 % LAB HEMETOLOGY METHOD 05/01/2024 11:34 AM [facility] Platelets 312 130 - 400 K/mcL LAB HEMETOLOGY METHOD 05/01/2024 11:34 AM [facility] MPV 10.3 7.0 - 11.0 FL LAB HEMETOLOGY METHOD 05/01/2024 11:34 AM [facility] NRBC 0.0 <1.0 % LAB HEMETOLOGY METHOD 05/01/2024 11:34 AM [facility] NRBC Absolute 0.00 <0.10 K/mcL LAB HEMETOLOGY METHOD 05/01/2024 11:34 AM [facility] Blood Venous blood specimen / Unknown Venipuncture / Unknown 05/01/2024 4:57 AM EST 05/01/2024 11:00 AM EST Matias Bowling MD LAB BLOOD ORDERABLES Final Resul t [facility] ([facility] [address] [place] [address], documented in this encounter Visit Diagnoses Diagnosis Essential (primary) hypertension Unspecified essential hypertension documented in this encounter Additional Health Concerns Infection Onset Date Last Indicated Resolved Time Gastrointestinal Rule-Out 04/28/2024 04/27/2024 7:06 PM EDT C. difficile 05/29/2024 05/29/2024 C. Diff Rule-Out Infection 05/30/2024 05/29/2024 0 05/30/2024 9:47 AM EDT documented as of this encounter Care Teams Riveter Hand Relationship Specialty Start Date End Date Matias Bowling MD [address] [place] [phone] PCP - General Family Medicine 04/16/24 documented as of this encounter
--- OUTSIDE RECORDS SUMMARY | 2024-06-04 09:54 | XMS_ITS | Encounter Summary ---
Author Organization [employer] Address [address] [facility] [address]t [place] [address] Care Team Providers Care Manufacturing Controller Name Role Phone ManuelEthel perry Primary Care Provider [phone] Vaishnavi Laird PharmD Unavailable Encounter Details Date Type Department Care Team (Late st Contact Info) Description 02/09/2022 Orders Only [facility] [address] [place], [place] [phone] Sadie Rivera, ANP [address] [place] [address] Social History Tobacco Use Types Packs/Day Years [...] documented as of this encounter Care Teams Manufacturing Controller Relationship Specialty Start Date End Date Ethel Chase DO [address] [place] [address] PCP - General Family Medicine 10/12/13 Vaishnavi Laird PharmD [address] [place] [address] Pharmacist Internal Medicine 02/07/23 documented as of this encounter
--- OUTSIDE RECORDS SUMMARY | 2024-06-04 09:54 | XMS_ITS | Encounter Summary ---
Author Organization [facility] Address [address] [place] [address] Care Team Providers Care Intellectual Property Counsel Name Role Phone Matias Bowling MD Primary Care Provider [phone] Encounter Details Date Type Department Care Team (Late st Contact Info) Description 04/29/2024 Lab Requisition [facility] - Main Lab [address] [facility] [place] [address] Matias Bowling MD 38 [facility] 204 [facility] [address] Essential (primary) hypertension Social History Tobacco [...] documented as of this encounter Care Teams Intellectual Property Counsel Relationship Specialty Start Date End Date Matias Bowling MD 38 [facility] [address] [place] [address] PCP - General Family Medicine 04/16/24 documented as of this encounter
--- OUTSIDE RECORDS SUMMARY | 2024-06-04 09:54 | XMS_ITS | Encounter Summary ---
Author Organization [facility] Address [address] [place] [address] Care Team Providers Care Manager Care Name Role Phone Matias Bowling MD Primary Care Provider [phone] Encounter Details Date Type Department Care Team (Late st Contact Info) Description 05/13/[address] [facility] - Main Lab [address] [place] [address] Matias Bowling MD 38 [facility] [address] [place], [phone] Essential (primary) hypertension Social History Tobacco [...] LAB CHEMISTRY METHOD 05/14/2024 11:24 AM EDT [facility] Potassium 5.2 3.5 - 5.5 mmol/L LAB CHEMISTRY METHOD 05/14/2024 11:24 AM EDT [facility] Chloride 108 96 - 110 mmol/L LAB CHEMISTRY METHOD 05/14/2024 11:24 AM [facility] CO2 25 21 - 32 mmol/L LAB CHEMISTRY METHOD 05/14/2024 11:24 AM [facility] Anion Gap 5 3 - 11 LAB CHEMISTRY METHOD 05/14/2024 11:24 AM [facility] Glucose 132(H) 70 - 100 mg/dL LAB CHEMISTRY METHOD 05/14/2024 11:24 AM [facility] BUN 13 5 - 25 mg/dL LAB CHEMISTRY METHOD 05/14/2024 11:24 AM [facility] Creatinine 1.06 0.50 - 1.10 mg/dL LAB CHEMISTRY METHOD 05/14/2024 11:24 AM [facility] eGFR 57(L) >=60 mL/min/1. 73m2 LAB CHEMISTRY METHOD 05/14/2024 11:24 AM [facility] Comment:Calculation based on the??Chronic Kidney Disease Epidemiology Collaboration (CKD-EPI) equation refit??without adjustment for race. BUN/Creatinine Ratio 12.3 LAB CHEMISTRY METHOD 05/14/2024 11:24 AM [facility] Calcium 9.6 8.5 - 10.5 mg/dL LAB CHEMISTRY METHOD 05/14/2024 11:24 AM [facility] AST (SGOT) 20 10 - 42 unit/L LAB CHEMISTRY METHOD 05/14/2024 11:24 AM [facility] ALT (SGPT) 28 10 - 60 unit/L LAB CHEMISTRY METHOD 05/14/2024 11:24 AM [facility] Alkaline Phosphatase 160(H) 42 - 121 unit/L LAB CHEMISTRY METHOD 05/14/2024 11:24 AM [facility] Total Protein 6.6 6.0 - 8.0 g/dL LAB CHEMISTRY METHOD 05/14/2024 11:24 AM [facility] Albumin 3.2 3.2 - 5.0 g/dL LAB CHEMISTRY METHOD 05/14/2024 11:24 AM EDT [facility] Total Bilirubin 0.2 0.0 - 1.4 mg/dL LAB CHEMISTRY METHOD 05/14/2024 11:24 AM EDT [facility] Blood Venous blood specimen / Unknown Venipuncture / Unknown 05/14/2024 6:06 AM EDT 05/14/2024 9:53 AM EDT us Matias Bowling MD LAB BLOOD ORDERABLES Final Resul t [facility] [address] [place] [address], [place] [phone] * (ABNORMAL) Complete blood count (05/14/2024 6:06 AM EDT) WBC 8.8 4.8 - 10.8 K/mcL LAB HEMETOLOGY METHOD 05/14/2024 10:16 AM T [facility] RBC 3.50(L) 3.80 - 4.80 M/mcL LAB HEMETOLOGY METHOD 05/14/2024 10:16 AM T [facility] Hemoglobin 9.4(L) 11.5 - 16.0 g/dL LAB HEMETOLOGY METHOD 05/14/2024 10:16 AM EDT [facility] Hematocrit 30.4(L) 35.0 - 47.0 % LAB HEMETOLOGY METHOD 05/14/2024 10:16 AM EDT [facility] MCV 85.9 79.0 - 98.0 FL LAB HEMETOLOGY METHOD 05/14/2024 10:16 AM T [facility] MCH 26.6(L) 27.0 - 32.0 pcg LAB HEMETOLOGY METHOD 05/14/2024 10:16 AM T [facility] MCHC 30.9(L) 32.0 - 37.0 g/dL LAB HEMETOLOGY METHOD 05/14/2024 10:16 AM EDT [facility] RDW 14.6 11.0 - 15.0 % LAB HEMETOLOGY METHOD 05/14/2024 10:16 AM EDT [facility] Platelets 275 130 - 400 K/mcL LAB HEMETOLOGY METHOD 05/14/2024 10:16 AM EDT [facility] MPV 10.1 7.0 - 11.0 FL LAB HEMETOLOGY METHOD 05/14/2024 10:16 AM EDT [facility] NRBC 0.0 <1.0 % LAB HEMETOLOGY METHOD 05/14/2024 10:16 AM EDT [facility] NRBC Absolute 0.00 <0.10 K/mcL LAB HEMETOLOGY METHOD 05/14/2024 10:16 AM EDT [facility] Blood Venous blood specimen / Unknown Venipuncture / Unknown 05/14/2024 6:06 AM EDT 05/14/2024 9:53 AM EDT us Matias Bowling MD LAB BLOOD ORDERABLES Final Resul t [facility] [address] [place] [address], documented in this encounter Visit Diagnoses Diagnosis Essential (primary) hypertension Unspecified essential hypertension documented in this encounter Additional Health Concerns Infection Onset Date Last Indicated Resolved Time Gastrointestinal Rule-Out 04/28/2024 04/27/2024 7:06 PM EDT C. difficile 05/29/2024 05/29/2024 C. Diff Rule-Out Infection 05/30/2024 05/29/2024 0 05/30/2024 9:47 AM EDT documented as of this encounter Care Teams Manager Care Relationship Specialty Start Date End Date Matias Bowling MD [address] [place] [address] PCP - General Family Medicine 04/16/24 documented as of this encounter
--- OUTSIDE RECORDS SUMMARY | 2024-06-04 09:54 | XMS_ITS | Encounter Summary ---
Author Organization [facility] Address [address] [place] [address] Care Team Providers Care Tree Thinner Name Role Phone Matias Bowling MD Primary Care Provider [phone] Encounter Details Date Type Department Care Team (Late st Contact Info) Description 06/03/2024 Lab Requisition [facility] - Main Lab [address] [facility] [place] [address] Matias Bowling MD 38 [facility] 204 [facility] [phone] Essential (primary) hypertension Social History [...] documented as of this encounter Care Teams Tree Thinner Relationship Specialty Start Date End Date Matias Bowling MD [address] [address] PCP - General Family Medicine 04/16/24 documented as of this encounter
--- OUTSIDE RECORDS SUMMARY | 2024-06-04 09:54 | XMS_ITS | Encounter Summary ---
Author Organization [facility] Address [address] [place] [address] Care Team Providers Care Drawer Upfitter Name Role Phone Matias Bowling MD Primary Care Provider [phone] Encounter Details Date Type Department Care Team (Late st Contact Info) Description 05/20/2024 Lab Requisition [facility] - Main Lab [address] [place] [address] Matias Bowling MD 38 [facility] [address] [place], [address] Essential (primary) hypertension Social History Tobacco [...] LAB CHEMISTRY METHOD 05/21/2024 11:29 AM EDT [facility] Potassium 5.9(H) 3.5 - 5.5 mmol/L LAB CHEMISTRY METHOD 05/21/2024 11:29 AM EDT [facility] Chloride 102 96 - 110 mmol/L LAB CHEMISTRY METHOD 05/21/2024 11:[address] [facility] CO2 27 21 - 32 mmol/L LAB CHEMISTRY METHOD 05/21/2024 11:[address] [facility] Anion Gap 7 3 - 11 LAB CHEMISTRY METHOD 05/21/2024 11:[address] [facility] Glucose 152(H) 70 - 100 mg/dL LAB CHEMISTRY METHOD 05/21/2024 11:[address] [facility] BUN 21 5 - 25 mg/dL LAB CHEMISTRY METHOD 05/21/2024 11:[address] [facility] Creatinine 2.30(H) 0.50 - 1.10 mg/dL LAB CHEMISTRY METHOD 05/21/2024 11:[address] [facility] eGFR 23(L) >=60 mL/min/1. 73m2 LAB CHEMISTRY METHOD 05/21/2024 11:[address] [facility] Comment:Calculation based on the??Chronic Kidney Disease Epidemiology Collaboration (CKD-EPI) equation refit??without adjustment for race. BUN/Creatinine Ratio 9.1 LAB CHEMISTRY METHOD 05/21/2024 11:[address] [facility] Calcium 8.9 8.5 - 10.5 mg/dL LAB CHEMISTRY METHOD 05/21/2024 11:[address] [facility] AST (SGOT) 23 10 - 42 unit/L LAB CHEMISTRY METHOD 05/21/2024 11:[address] [facility] ALT (SGPT) 30 10 - 60 unit/L LAB CHEMISTRY METHOD 05/21/2024 11:[address] [facility] Alkaline Phosphatase 174(H) 42 - 121 unit/L LAB CHEMISTRY METHOD 05/21/2024 11:[address] [facility] Total Protein 6.7 6.0 - 8.0 g/dL LAB CHEMISTRY METHOD 05/21/2024 11:29 AM EDT [facility] Albumin 3.3 3.2 - 5.0 g/dL LAB CHEMISTRY METHOD 05/21/2024 11:29 AM EDT [facility] Total Bilirubin 0.3 0.0 - 1.4 mg/dL LAB CHEMISTRY METHOD 05/21/2024 11:29 AM T [facility] Blood Venous blood specimen / Unknown Venipuncture / Unknown 05/21/2024 5:43 AM EDT 05/21/2024 9:27 AM EDT us Matias Bowling MD LAB BLOOD ORDERABLES Final Resul t [facility] [address] [place] [address], [place] [phone] * (ABNORMAL) Complete blood count (05/21/2024 5:43 AM EDT) WBC 10.3 4.8 - 10.8 K/mcL LAB HEMETOLOGY METHOD 05/21/2024 10:[address] [facility] RBC 3.50(L) 3.80 - 4.80 M/mcL LAB HEMETOLOGY METHOD 05/21/2024 10:[address] [facility] Hemoglobin 9.0(L) 11.5 - 16.0 g/dL LAB HEMETOLOGY METHOD 05/21/2024 10:[address] [facility] Hematocrit 30.0(L) 35.0 - 47.0 % LAB HEMETOLOGY METHOD 05/21/2024 10:[address] [facility] MCV 86.5 79.0 - 98.0 FL LAB HEMETOLOGY METHOD 05/21/2024 10:[address] [facility] MCH 25.9(L) 27.0 - 32.0 pcg LAB HEMETOLOGY METHOD 05/21/2024 10:[address] [facility] MCHC 30.0(L) 32.0 - 37.0 g/dL LAB HEMETOLOGY METHOD 05/21/2024 10:10 AM EDT [facility] RDW 15.1(H) 11.0 - 15.0 % LAB HEMETOLOGY METHOD 05/21/2024 10:10 AM EDT [facility] Platelets 272 130 - 400 K/mcL LAB HEMETOLOGY METHOD 05/21/2024 10:10 AM EDT [facility] MPV 10.2 7.0 - 11.0 FL LAB HEMETOLOGY METHOD 05/21/2024 10:10 AM EDT [facility] NRBC 0.0 <1.0 % LAB HEMETOLOGY METHOD 05/21/2024 10:10 AM EDT [facility] NRBC Absolute 0.00 <0.10 K/mcL LAB HEMETOLOGY METHOD 05/21/2024 10:10 AM EDT [facility] Blood Venous blood specimen / Unknown Venipuncture / Unknown 05/21/2024 5:43 AM EDT 05/21/2024 9:27 AM EDT us Matias Bowling MD LAB BLOOD ORDERABLES Final Resul t [facility] [address] [place] [address], documented in this encounter Visit Diagnoses Diagnosis Essential (primary) hypertension Unspecified essential hypertension documented in this encounter Additional Health Concerns Infection Onset Date Last Indicated Resolved Time Gastrointestinal Rule-Out 04/28/2024 04/27/2024 7:06 PM EDT C. difficile 05/29/2024 05/29/2024 C. Diff Rule-Out Infection 05/30/2024 05/29/2024 0 05/30/2024 9:47 AM EDT documented as of this encounter Care Teams Drawer Upfitter Relationship Specialty Start Date End Date Matias Bowling MD 38 [facility] [address] [place] [phone] PCP - General Family Medicine 04/16/24 documented as of this encounter
--- OUTSIDE RECORDS SUMMARY | 2024-06-04 09:54 | XMS_ITS | Encounter Summary ---
Author Organization [facility] Address [address] [place] [address] Care Team Providers Care Quarry Manager Name Role Phone Matias Bowling MD Primary Care Provider [phone] Encounter Details Date Type Department Care Team (Late st Contact Info) Description 05/27/2024 Lab Requisition [facility] - Main Lab [address] [place] [address] Matias Bowling MD 38 [facility] [address] [place], [address] Essential (primary) hypertension Social History Tobacco [...] LAB CHEMISTRY METHOD 05/28/2024 10:13 AM EDT [facility] Potassium 4.2 3.5 - 5.5 mmol/L LAB CHEMISTRY METHOD 05/28/2024 10:13 AM EDT [facility] Chloride 103 96 - [...] LAB CHEMISTRY METHOD 05/28/2024 10:13 AM EDT [facility] Total Bilirubin 0.2 0.0 - 1.4 mg/dL LAB CHEMISTRY METHOD 05/28/2024 10:13 AM T [facility] Blood Venous blood specimen / Unknown Venipuncture / Unknown 05/28/2024 5:02 AM EDT 05/28/2024 9:04 AM EDT us Matias Bowling MD LAB BLOOD ORDERABLES Final Resul t [facility] [address] [place] [address], [place] [phone] * (ABNORMAL) Complete blood count (05/28/2024 5:02 AM EDT) WBC 10.3 4.8 - 10.8 K/mcL LAB HEMETOLOGY METHOD 05/28/2024 9:26 AM [facility] RBC 3.30(L) 3.80 - 4.80 M/mcL LAB HEMETOLOGY METHOD 05/28/2024 9:26 AM [facility] Hemoglobin 8.7(L) 11.5 - 16.0 g/dL LAB HEMETOLOGY METHOD 05/28/2024 9:26 AM T [facility] Hematocrit 28.7(L) 35.0 - 47.0 % LAB HEMETOLOGY METHOD 05/28/2024 9:26 AM EDT [facility] MCV 87.0 79.0 - 98.0 FL LAB HEMETOLOGY METHOD 05/28/2024 9:26 AM [facility] MCH 26.4(L) 27.0 - 32.0 pcg LAB HEMETOLOGY METHOD 05/28/[facility]24 [facility] MCHC 30.3(L) 32.0 - 37.0 g/dL LAB HEMETOLOGY METHOD 05/28/2024 9:26 AM EDT [facility] RDW 14.9 11.0 - 15.0 % LAB HEMETOLOGY METHOD 05/28/2024 9:26 AM EDT [facility] Platelets 281 130 - 400 K/mcL LAB HEMETOLOGY METHOD 05/28/2024 9:26 AM EDT [facility] MPV 10.2 7.0 - 11.0 FL LAB HEMETOLOGY METHOD 05/28/2024 9:26 AM EDT [facility] NRBC 0.0 <1.0 % LAB HEMETOLOGY METHOD 05/28/2024 9:26 AM EDT [facility] NRBC Absolute 0.00 <0.10 K/mcL LAB HEMETOLOGY METHOD 05/28/2024 9:26 AM EDT [facility] Blood Venous blood specimen / Unknown Venipuncture / Unknown 05/28/2024 5:02 AM EDT 05/28/2024 9:04 AM EDT us Matias Bowling MD LAB BLOOD ORDERABLES Final Resul t [facility] [address] [place] [address], documented in this encounter Visit Diagnoses Diagnosis Essential (primary) hypertension Unspecified essential hypertension documented in this encounter Additional Health Concerns Infection Onset Date Last Indicated Resolved Time C. difficile 05/29/2024 05/29/2024 C. Diff Rule-Out Infection 05/30/2024 05/29/2024 0 05/30/2024 9:47 AM EDT documented as of this encounter Care Teams Quarry Manager Relationship Specialty Start Date End Date Matias Bowling MD [address] [place] [phone] PCP - General Family Medicine 04/16/24 documented as of this encounter
--- OUTSIDE RECORDS SUMMARY | 2024-06-04 09:54 | XMS_ITS | Encounter Summary ---
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 classified elsewhere (CMS/HCC V24, CMS/HCC V28) Social History Tobacco Use Types Packs/Day Years [...] LAB CHEMISTRY METHOD 04/29/2024 2:49 PM EST [facility] Potassium 4.5 3.5 - 5.5 mmol/L LAB CHEMISTRY METHOD 04/29/2024 2:49 PM [facility] Chloride 111(H) 96 - 110 mmol/L LAB CHEMISTRY METHOD 04/29/2024 2:49 PM [facility] CO2 23 21 - 32 mmol/L LAB CHEMISTRY METHOD 04/29/2024 2:49 PM [facility] Anion Gap 8 3 - 11 LAB CHEMISTRY METHOD 04/29/2024 2:49 PM [facility] Glucose 118(H) 70 - 100 mg/dL LAB CHEMISTRY METHOD 04/29/2024 2:49 PM [facility] BUN 18 5 - 25 mg/dL LAB CHEMISTRY METHOD 04/29/2024 2:49 PM [facility] Creatinine 0.94 0.50 - 1.10 mg/dL LAB CHEMISTRY METHOD 04/29/2024 2:49 PM [facility] eGFR 66 >=60 mL/min/1. 73m2 LAB CHEMISTRY METHOD 04/29/2024 2:49 PM [facility] Comment:Calculation based on the??Chronic Kidney Disease Epidemiology Collaboration (CKD-EPI) equation refit??without adjustment for race. BUN/Creatinine Ratio 19.1 LAB CHEMISTRY METHOD 04/29/2024 2:49 PM [facility] Calcium 9.2 8.5 - 10.5 mg/dL LAB CHEMISTRY METHOD 04/29/2024 2:49 PM [facility] AST (SGOT) 21 10 - 42 unit/L LAB CHEMISTRY METHOD 04/29/2024 2:49 PM [facility] ALT (SGPT) 24 10 - 60 unit/L LAB CHEMISTRY METHOD 04/29/2024 2:49 PM [facility] Alkaline Phosphatase 170(H) 42 - 121 unit/L LAB CHEMISTRY METHOD 04/29/2024 2:49 PM [facility] Total Protein 6.9 6.0 - 8.0 g/dL LAB CHEMISTRY METHOD 04/29/2024 2:49 PM [facility] Albumin 3.2 3.2 - 5.0 g/dL LAB CHEMISTRY METHOD 04/29/2024 2:49 PM [facility] Total Bilirubin 0.3 0.0 - 1.4 mg/dL LAB CHEMISTRY METHOD 04/29/2024 2:49 PM [facility] Blood Venous blood specimen / Unknown Venipuncture / Unknown 04/29/2024 6:35 AM EST 04/29/2024 10:01 AM EST us Matias Bowling MD LAB BLOOD ORDERABLES Final Resul t [facility] [address] [place] [address], * (ABNORMAL) Complete blood count (04/29/2024 6:35 AM EST) WBC 9.6 4.8 - 10.8 K/mcL LAB HEMETOLOGY METHOD 04/29/2024 11:28 AM [facility] RBC 3.70(L) 3.80 - 4.80 M/[facility] LAB HEMETOLOGY METHOD 04/29/2024 11:28 AM [facility] Hemoglobin 9.9(L) 11.5 - 16.0 g/dL LAB HEMETOLOGY METHOD 04/29/2024 11:28 AM [facility] Hematocrit 32.0(L) 35.0 - 47.0 % LAB HEMETOLOGY METHOD 04/29/2024 11:28 AM [facility] MCV 87.0 79.0 - 98.0 FL LAB HEMETOLOGY METHOD 04/29/2024 11:28 AM [facility] MCH 26.9(L) 27.0 - 32.0 pcg LAB HEMETOLOGY METHOD 04/29/2024 11:28 AM [facility] MCHC 30.9(L) 32.0 - 37.0 g/dL LAB HEMETOLOGY METHOD 04/29/2024 11:28 AM [facility] RDW 14.6 11.0 - 15.0 % LAB HEMETOLOGY METHOD 04/29/2024 11:28 AM [facility] Platelets 358 130 - 400 K/mcL LAB HEMETOLOGY METHOD 04/29/2024 11:28 AM [facility] MPV 10.0 7.0 - 11.0 FL LAB HEMETOLOGY METHOD 04/29/2024 11:28 AM [facility] NRBC 0.0 <1.0 % LAB HEMETOLOGY METHOD 04/29/2024 11:28 AM [facility] NRBC Absolute 0.00 <0.10 K/mcL LAB HEMETOLOGY METHOD 04/29/2024 11:28 AM [facility] Blood Venous blood specimen / Unknown Venipuncture / Unknown 04/29/2024 6:35 AM EST 04/29/2024 10:01 AM EST us Matias Bowling MD LAB BLOOD ORDERABLES Final Resul t [facility] [address] [place] [address], documented in this encounter Visit Diagnoses Diagnosis Hyperlipidemia, unspecified 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 classified elsewhere (CMS/HCC V24, CMS/HCC V28) documented in this encounter Additional Health Concerns Infection Onset Date Last Indicated Resolved Time Gastrointestinal Rule-Out 04/28/2024 04/27/2024 7:06 PM EDT C. difficile 05/29/2024 05/29/2024 C. Diff Rule-Out Infection 05/30/2024 05/29/2024 0 05/30/2024 9:47 AM EDT documented as of this encounter Care Teams Rn Mds Relationship Specialty Start Date End Date Matias Bowling MD 38 [facility] [address] [place] [phone] PCP - General Family Medicine 04/16/24 documented as of this encounter
--- OUTSIDE RECORDS SUMMARY | 2024-06-04 09:54 | XMS_ITS | Encounter Summary ---
Author Organization [facility] Address [address] [place] [address] Care Team Providers Care Big Data Analytics Lead Name Role Phone Matias Bowling MD Primary Care Provider [phone] Encounter Details Date Type Department Care Team (Late st Contact Info) Description 05/22/2024 Lab Requisition [facility] - Main Lab [address] [place] [address] Matias Bowling MD 38 [facility] 204 [place], [address] 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 classified elsewhere (CMS/HCC V24, CMS/HCC V28); Hyperlipidemia, unspecified Social History Tobacco Use Types [...] LAB CHEMISTRY METHOD 05/22/2024 11:37 AM EDT [facility] Potassium 5.2 3.5 - 5.5 mmol/L LAB CHEMISTRY METHOD 05/22/2024 11:37 AM [facility] Chloride 102 96 - 110 mmol/L LAB CHEMISTRY METHOD 05/22/2024 11:37 AM [facility] CO2 25 21 - 32 mmol/L LAB CHEMISTRY METHOD 05/22/2024 11:37 AM [facility] Anion Gap 7 3 - 11 LAB CHEMISTRY METHOD 05/22/2024 11:37 AM [facility] Glucose 163(H) 70 - 100 mg/dL LAB CHEMISTRY METHOD 05/22/2024 11:37 AM [facility] BUN 18 5 - 25 mg/dL LAB CHEMISTRY METHOD 05/22/2024 11:37 AM [facility] Creatinine 1.65(H) 0.50 - 1.10 mg/dL LAB CHEMISTRY METHOD 05/22/2024 11:37 AM [facility] eGFR 34(L) >=60 mL/min/1. 73m2 LAB CHEMISTRY METHOD 05/22/2024 11:37 AM [facility] Comment:Calculation based on the??Chronic Kidney Disease Epidemiology Collaboration (CKD-EPI) equation refit??without adjustment for race. BUN/Creatinine Ratio 10.9 LAB CHEMISTRY METHOD 05/22/2024 11:37 AM [facility] Calcium 8.8 8.5 - 10.5 mg/dL LAB CHEMISTRY METHOD 05/22/2024 11:37 AM [facility] Blood Venous blood specimen / Unknown Venipuncture / Unknown 05/22/2024 8:23 AM EDT 05/22/2024 10:31 AM EDT us Matias Bowling MD LAB BLOOD ORDERABLES Final Resul t [facility] [address] [place] [address], [place] [phone] * (ABNORMAL) Complete blood count (05/22/2024 8:23 AM EDT) [facility] WBC 9.8 4.8 - 10.8 K/mcL LAB HEMETOLOGY METHOD 05/22/2024 11:21 AM [facility] RBC 3.60(L) 3.80 - 4.80 M/mcL LAB HEMETOLOGY METHOD 05/22/2024 11:21 AM [facility] Hemoglobin 9.5(L) 11.5 - 16.0 g/dL LAB HEMETOLOGY METHOD 05/22/2024 11:21 AM [facility] Hematocrit 31.2(L) 35.0 - 47.0 % LAB HEMETOLOGY METHOD 05/22/2024 11:21 AM [facility] MCV 86.4 79.0 - 98.0 FL LAB HEMETOLOGY METHOD 05/22/2024 11:21 AM [facility] MCH 26.3(L) 27.0 - 32.0 pcg LAB HEMETOLOGY METHOD 05/22/2024 11:21 AM [facility] MCHC 30.4(L) 32.0 - 37.0 g/dL LAB HEMETOLOGY METHOD 05/22/2024 11:21 AM [facility] RDW 14.7 11.0 - 15.0 % LAB HEMETOLOGY METHOD 05/22/2024 11:21 AM [facility] Platelets 278 130 - 400 K/mcL LAB HEMETOLOGY METHOD 05/22/2024 11:21 AM [facility] MPV 10.5 7.0 - 11.0 FL LAB HEMETOLOGY METHOD 05/22/2024 11:21 AM [facility] NRBC 0.0 <1.0 % LAB HEMETOLOGY METHOD 05/22/2024 11:21 AM EDT [facility] NRBC Absolute 0.00 <0.10 K/mcL LAB HEMETOLOGY METHOD 05/22/2024 11:21 AM EDT [facility] Blood Venous blood specimen / Unknown Venipuncture / Unknown 05/22/2024 8:23 AM EDT 05/22/2024 10:31 AM EDT us Matias Bowling MD LAB BLOOD ORDERABLES Final Resul t [facility] [address] [place] [address], documented in this encounter Visit Diagnoses Diagnosis 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 classified elsewhere (CMS/HCC V24, CMS/HCC V28) Hyperlipidemia, unspecified documented in this encounter Additional Health Concerns Infection Onset Date Last Indicated Resolved Time Gastrointestinal Rule-Out 04/28/2024 04/27/2024 7:06 PM EDT C. difficile 05/29/2024 05/29/2024 C. Diff Rule-Out Infection 05/30/2024 05/29/2024 0 05/30/2024 9:47 AM EDT documented as of this encounter Care Teams Big Data Analytics Lead Relationship Specialty Start Date End Date Matias Bowling MD [address] [place] [address] [address] [place] [phone] PCP - General Family Medicine 04/16/24 documented as of this encounter
== END 2024-06-03 09:12 | disposition home or self-care (01) ==
LOC: HO.HOSX 09:11
PROVIDERS: Visit Provider Physician Assistant
DX: M79.605 Pain in left leg (principal); M97.12XA Periprosthetic fracture around internal prosthetic left knee joint, initial encounter
CPT/HCPCS: 73552; 99212

== ENCOUNTER 2024-06-03 09:57 | Outpatient (AMB) | payer OTHER, SELFPAY ==
--- NOTE | 2024-06-03 10:18 | MHC.OFFVIS ---
Intake Visit Reasons: PO-f/u LT rev TKA/femur fx w xrays Intake Note: Trish is a 68 year old female who presents today for a post operative appointment s/p Left Total Knee Arthroplasty Revision 03/24/2024. Patient took a fall on 04/22/2023 resulting in a periprosthetic fracture. At her last visit she was instructed to continue non-weight bearing on left lower extremity. Patient reports she is doing well, states she has not started PT at rehab. Multiple Slide Operator Required: Yes Multiple Slide Operator Services: Multiple Slide Operator Present Multiple Slide Operator Name: Luz BAY LM Allergies Iodinated Contrast Media [IV CONTRAST] Allergy (Severe, Verified 04/12/24 13:26) itching, hives morphine [Morphine] Allergy (Intermediate, Verified 04/12/24 13:26) ITCHING, rash tramadol [Ultram] Allergy (Intermediate, Verified 04/12/24 13:26) rash, itching HPI HPI PO-f/u LT rev TKA/femur fx w xrays: Details: 68-year-old female returns to the office today for a follow-up left periprosthetic femur fracture status post revision left TKA with Dr. Oro. She continues to remain nonweightbearing of the left lower extremity. She states she removes the brace when resting and works on her range of motion exercises. She states she has been performing activities on her own while in the rehab such as showering using the bathroom and getting around. [facility] Medical History Arthritis Hypothyroidism Renal calculi Environmental and seasonal allergies Nocturnal hypoxia Abnormal nuclear stress test Diabetes HTN (hypertension) Cardiomyopathy Bilateral nephrolithiasis Retention of urine Acid reflux Surgical History Status post total left knee replacement History of total left knee replacement (TKR) Hx of lithotripsy (2018) History of total right knee replacement (2011) Hx of repair of right rotator cuff (2013) History of cystoscopy Hx of tubal ligation History of hand surgery Family History Brother Breast cancer Social History Household Members: Spouse Household Members Other:: lives w/her grandson Housing: House Are you a primary managed care nurse to a significant other at home: Yes (grandson 17 yrs) Do you presently have visiting nurse or other home services: No 75 years or older and lives alone: No Alcohol intake: current Alcohol intake frequency: does not drink Comment: post op left knee, WBAT Patient Tobacco Use Status: Never used Tobacco Advance Directives Date on File: 04/14/24 service: No Current occupational status: disabled Current occupation: rt handed Gender identity: Female Female Reproductive History Menstrual Age of Menarche: 12 Review of Systems Const All systems reviewed & are unremarkable except as noted in HPI and below Physical Exam Extrem Other: Left knee incision is well healed. No tenderness to palpation over the knee. She has full extension. Flexion to about 95 degrees . Calf supple nontender neurovascularly intact. Results Reviewed Results Reviewed: X-rays of the left knee obtained in the office today reviewed by me show a periprosthetic left femur fracture with interval healing. Prosthesis appears to be intact. Assessment & Plan Assessment & Plan (1) Periprosthetic fracture around internal prosthetic left knee joint, initial encounter: Code(s): M97.12XA - Periprosthetic fracture around internal prosthetic left knee joint, initial encounter Category: Medical Plan: She will continue nonweightbearing of the left lower extremity. Use the brace when up and ambulating however she can remove the brace when resting. Continue to work on range of motion and quad exercises. She questioned her ability to go home which I feel if she has help at home and is independent with most activities I support her going home however she needs to discuss this further with the care team at the rehab facility to ensure she goes proper services upon discharge. I will see her back in 6-8 weeks with repeat x-rays, sooner if needed. Orders: Orders XR femur LT 2V Today M79.606 - Pain in leg, unspecified Coding Level of Care Code Global (57048) Diagnoses Periprosthetic fracture around internal prosthetic left knee joint, initial encounter M97.12XA
--- OUTSIDE RECORDS SUMMARY | 2024-06-03 11:03 | XMS_ITS | Encounter Summary ---
Author Organization [facility] Address [address] [place] [address] Care Team Providers Care Cut Roll Machine Offbearer Name Role Phone Matias Bowling MD Primary Care Provider [phone] Encounter Details Date Type Department Care Team (Late st Contact Info) Description 05/06/[address] [facility] - Main Lab [address] [place] [address] Matias Bowling MD 38 [facility] [address] [place], [phone] Essential (primary) hypertension Social History Tobacco [...] LAB CHEMISTRY METHOD 05/07/2024 10:37 AM EDT [facility] Potassium 4.9 3.5 - 5.5 mmol/L LAB CHEMISTRY METHOD 05/07/2024 10:37 AM EDT [facility] Chloride 111(H) 96 - 110 mmol/L LAB CHEMISTRY METHOD 05/07/2024 10:37 AM [facility] CO2 22 21 - 32 mmol/L LAB CHEMISTRY METHOD 05/07/2024 10:37 AM [facility] Anion Gap 8 3 - 11 LAB CHEMISTRY METHOD 05/07/2024 10:37 AM [facility] Glucose 121(H) 70 - 100 mg/dL LAB CHEMISTRY METHOD 05/07/2024 10:37 AM [facility] BUN 15 5 - 25 mg/dL LAB CHEMISTRY METHOD 05/07/2024 10:37 AM [facility] Creatinine 1.02 0.50 - 1.10 mg/dL LAB CHEMISTRY METHOD 05/07/2024 10:37 AM [facility] eGFR 60 >=60 mL/min/1. 73m2 LAB CHEMISTRY METHOD 05/07/2024 10:37 AM [facility] Comment:Calculation based on the??Chronic Kidney Disease Epidemiology Collaboration (CKD-EPI) equation refit??without adjustment for race. BUN/Creatinine Ratio 14.7 LAB CHEMISTRY METHOD 05/07/2024 10:37 AM [facility] Calcium 9.1 8.5 - 10.5 mg/dL LAB CHEMISTRY METHOD 05/07/2024 10:37 AM [facility] AST (SGOT) 15 10 - 42 unit/L LAB CHEMISTRY METHOD 05/07/2024 10:37 AM [facility] ALT (SGPT) 20 10 - 60 unit/L LAB CHEMISTRY METHOD 05/07/2024 10:37 AM [facility] Alkaline Phosphatase 161(H) 42 - 121 unit/L LAB CHEMISTRY METHOD 05/07/2024 10:37 AM [facility] Total Protein 6.4 6.0 - 8.0 g/dL LAB CHEMISTRY METHOD 05/07/2024 10:37 AM [facility] Albumin 3.1(L) 3.2 - 5.0 g/dL LAB CHEMISTRY METHOD 05/07/2024 10:37 AM EDT [facility] Total Bilirubin 0.2 0.0 - 1.4 mg/dL LAB CHEMISTRY METHOD 05/07/2024 10:37 AM [facility] Blood Venous blood specimen / Unknown Venipuncture / Unknown 05/07/2024 5:12 AM EDT 05/07/2024 8:53 AM EDT us Matias Bowling MD LAB BLOOD ORDERABLES Final Resul t [facility] [address] [place] [address], [place] [phone] * (ABNORMAL) Complete blood count (05/07/2024 5:12 AM EDT) WBC 9.6 4.8 - 10.8 K/mcL LAB HEMETOLOGY METHOD 05/07/2024 10:09 AM [facility] RBC 3.60(L) 3.80 - 4.80 M/mcL LAB HEMETOLOGY METHOD 05/07/2024 10:09 AM [facility] Hemoglobin 9.4(L) 11.5 - 16.0 g/dL LAB HEMETOLOGY METHOD 05/07/2024 10:09 AM [facility] Hematocrit 31.5(L) 35.0 - 47.0 % LAB HEMETOLOGY METHOD 05/07/2024 10:09 AM [facility] MCV 88.2 79.0 - 98.0 FL LAB HEMETOLOGY METHOD 05/07/2024 10:09 AM [facility] MCH 26.3(L) 27.0 - 32.0 pcg LAB HEMETOLOGY METHOD 05/07/2024 10:09 AM [facility] MCHC 29.8(L) 32.0 - 37.0 g/dL LAB HEMETOLOGY METHOD 05/07/2024 10:09 AM EDT [facility] RDW 14.6 11.0 - 15.0 % LAB HEMETOLOGY METHOD 05/07/2024 10:09 AM EDT [facility] Platelets 303 130 - 400 K/mcL LAB HEMETOLOGY METHOD 05/07/2024 10:09 AM EDT [facility] MPV 10.1 7.0 - 11.0 FL LAB HEMETOLOGY METHOD 05/07/2024 10:09 AM EDT [facility] NRBC 0.0 <1.0 % LAB HEMETOLOGY METHOD 05/07/2024 10:09 AM EDT [facility] NRBC Absolute 0.00 <0.10 K/mcL LAB HEMETOLOGY METHOD 05/07/2024 10:09 AM EDT [facility] Blood Venous blood specimen / Unknown Venipuncture / Unknown 05/07/2024 5:12 AM EDT 05/07/2024 8:53 AM EDT us Matias Bowling MD LAB BLOOD ORDERABLES Final Resul t [facility] [address] [place] [address], documented in this encounter Visit Diagnoses Diagnosis Essential (primary) hypertension Unspecified essential hypertension documented in this encounter Additional Health Concerns Infection Onset Date Last Indicated Resolved Time Gastrointestinal Rule-Out 04/28/2024 04/27/2024 7:06 PM EDT C. difficile 05/29/2024 05/29/2024 C. Diff Rule-Out Infection 05/30/2024 05/29/2024 0 05/30/2024 9:47 AM EDT documented as of this encounter Care Teams Cut Roll Machine Offbearer Relationship Specialty Start Date End Date Matias Bowling MD [address] [phone] PCP - General Family Medicine 04/16/24 documented as of this encounter
--- OUTSIDE RECORDS SUMMARY | 2024-06-03 11:04 | XMS_ITS | Encounter Summary ---
Author Organization [facility] Address [address] [place] [phone] Care Team Providers Care Roll Tender Name Role Phone Matias Bowling MD Primary Care Provider [phone] Encounter Details Date Type Department Care Team (Late st Contact Info) Description 04/29/2024 Lab Requisition [facility] - Main Lab [address] [facility] [place] [address] Matias Bowling MD 38 [facility] [address] [facility] [phone] Essential (primary) hypertension Social History [...] documented as of this encounter Care Teams Roll Tender Relationship Specialty Start Date End Date Matias Bowling MD 38 [facility] [address] [place] [address] PCP - General Family Medicine 04/16/24 documented as of this encounter
--- OUTSIDE RECORDS SUMMARY | 2024-06-03 11:04 | XMS_ITS | Encounter Summary ---
Author Organization [facility] Address [address] [place] [address] Care Team Providers Care Claims Configuration Analyst Name Role Phone Matias Bowling MD Primary Care Provider Encounter Details Date Type Department Care Team (Late st Contact Info) Description 05/27/2024 Lab Requisition [facility] - Main Lab [address] [place] [address] Matias Bowling MD 38 [facility] [address] [place], [phone] Essential (primary) hypertension Social History Tobacco [...] Associated Diagnosis Comments COMPLETE BLOOD COUNT Routine 05/28/2024 5:02 AM EDT Essential (primary) hypertension COMPREHENSIVE METABOLIC PANEL Routine 05/28/2024 5:02 AM EDT Essential (primary) hypertension documented in this encounter Results * (ABNORMAL) Comprehensive metabolic panel (05/28/2024 5:02 AM EDT) Sodium 137 133 - 145 mmol/L LAB CHEMISTRY METHOD 05/28/2024 10:13 AM EDT [facility] Potassium 4.2 3.5 - 5.5 mmol/L LAB CHEMISTRY METHOD 05/28/2024 10:13 AM EDT [facility] Chloride 103 96 - 110 mmol/L LAB CHEMISTRY METHOD 05/28/2024 10:13 AM [facility] CO2 28 21 - 32 mmol/L LAB CHEMISTRY METHOD 05/28/2024 10:13 AM [facility] Anion Gap 6 3 - 11 LAB CHEMISTRY METHOD 05/28/2024 10:13 AM [facility] Glucose 141(H) 70 - 100 mg/dL LAB CHEMISTRY METHOD 05/28/2024 10:13 AM [facility] BUN 13 5 - 25 mg/dL LAB CHEMISTRY METHOD 05/28/2024 10:13 AM [facility] Creatinine 1.21(H) 0.50 - 1.10 mg/dL LAB CHEMISTRY METHOD 05/28/2024 10:13 AM [facility] eGFR 49(L) >=60 mL/min/1. 73m2 LAB CHEMISTRY METHOD 05/28/2024 10:13 AM [facility] Comment:Calculation based on the??Chronic Kidney Disease Epidemiology Collaboration (CKD-EPI) equation refit??without adjustment for race. BUN/Creatinine Ratio 10.7 LAB CHEMISTRY METHOD 05/28/2024 10:13 AM [facility] Calcium 8.6 8.5 - 10.5 mg/dL LAB CHEMISTRY METHOD 05/28/2024 10:13 AM [facility] AST (SGOT) 12 10 - 42 unit/L LAB CHEMISTRY METHOD 05/28/2024 10:13 AM [facility] ALT (SGPT) 19 10 - 60 unit/L LAB CHEMISTRY METHOD 05/28/2024 10:13 AM [facility] Alkaline Phosphatase 147(H) 42 - 121 unit/L LAB CHEMISTRY METHOD 05/28/2024 10:13 AM [facility] Total Protein 6.3 6.0 - 8.0 g/dL LAB CHEMISTRY METHOD 05/28/2024 10:13 AM [facility] Albumin 3.1(L) 3.2 - 5.0 g/dL LAB CHEMISTRY METHOD 05/28/2024 10:13 AM EDT [facility] Total Bilirubin 0.2 0.0 - 1.4 mg/dL LAB CHEMISTRY METHOD 05/28/2024 10:13 AM T [facility] Blood Venous blood specimen / Unknown Venipuncture / Unknown 05/28/2024 5:02 AM EDT 05/28/2024 9:04 AM EDT us Matias Bowling MD LAB BLOOD ORDERABLES Final Resul t [facility] [address] [place] [address], [place] [phone] * (ABNORMAL) Complete blood count (05/28/2024 5:02 AM EDT) WBC 10.3 4.8 - 10.8 K/mcL LAB HEMETOLOGY METHOD 05/28/2024 9:26 AM [facility] RBC 3.30(L) 3.80 - 4.80 M/mcL LAB HEMETOLOGY METHOD 05/28/2024 9:26 AM [facility] Hemoglobin 8.7(L) 11.5 - 16.0 g/dL LAB HEMETOLOGY METHOD 05/28/2024 9:26 AM T [facility] Hematocrit 28.7(L) 35.0 - 47.0 % LAB HEMETOLOGY METHOD 05/28/2024 9:26 AM EDT [facility] MCV 87.0 79.0 - 98.0 FL LAB HEMETOLOGY METHOD 05/28/2024 9:26 AM [facility] MCH 26.4(L) 27.0 - 32.0 pcg LAB HEMETOLOGY METHOD 05/28[facility]24 [facility] MCHC 30.3(L) 32.0 - 37.0 g/dL LAB HEMETOLOGY METHOD 05/28/2024 9:26 AM EDT [facility] RDW 14.9 11.0 - 15.0 % LAB HEMETOLOGY METHOD 05/28/2024 9:26 AM EDT [facility] Platelets 281 130 - 400 K/mcL LAB HEMETOLOGY METHOD 05/28/2024 9:26 AM EDT [facility] MPV 10.2 7.0 - 11.0 FL LAB HEMETOLOGY METHOD 05/28/2024 9:26 AM EDT [facility] NRBC 0.0 <1.0 % LAB HEMETOLOGY METHOD 05/28/2024 9:26 AM EDT [facility] NRBC Absolute 0.00 <0.10 K/mcL LAB HEMETOLOGY METHOD 05/28/2024 9:26 AM EDT [facility] Blood Venous blood specimen / Unknown Venipuncture / Unknown 05/28/2024 5:02 AM EDT 05/28/2024 9:04 AM EDT us Matias Bowling MD LAB BLOOD ORDERABLES Final Resul t [facility] [address] [place] [address], documented in this encounter Visit Diagnoses Diagnosis Essential (primary) hypertension Unspecified essential hypertension documented in this encounter Additional Health Concerns Infection Onset Date Last Indicated Resolved Time C. difficile 05/29/2024 05/29/2024 C. Diff Rule-Out Infection 05/30/2024 05/29/2024 0 05/30/2024 9:47 AM EDT documented as of this encounter Care Teams Claims Configuration Analyst Relationship Specialty Start Date End Date Matias Bowling MD [address] [place] [phone] PCP - General Family Medicine 04/16/24 documented as of this encounter
--- OUTSIDE RECORDS SUMMARY | 2024-06-03 11:04 | XMS_ITS | Encounter Summary ---
Author Organization [facility] Address [address] [place] [address] Care Team Providers Care Print Color Matcher Name Role Phone Matias Bowling MD Primary Care Provider [phone] Encounter Details Date Type Department Care Team (Late st Contact Info) Description 04/23/2024 Lab Requisition [facility] - Main Lab [address] [place] [address] Matias Bowling MD 38 [facility] [address] [place], [address] Essential (primary) hypertension Social History Tobacco [...] LAB CHEMISTRY METHOD 04/23/2024 10:18 AM EST [facility] Potassium 4.4 3.5 - 5.5 mmol/L LAB CHEMISTRY METHOD 04/23/2024 10:18 AM EST [facility] Chloride 109 96 - [...] t [facility] [address] [place] [address], * (ABNORMAL) Complete blood count (04/23/2024 5:04 AM EST) WBC 8.9 4.8 - 10.8 K/mcL LAB HEMETOLOGY METHOD 04/23/2024 9:28 AM [facility] RBC 3.40(L) 3.80 - 4.80 M/[facility] LAB HEMETOLOGY METHOD 04/23/2024 9:28 AM [place] [...] LAB HEMETOLOGY METHOD 04/23/2024 9:28 AM EST [facility] RDW 14.6 11.0 - 15.0 % LAB HEMETOLOGY METHOD 04/23/2024 9:28 AM EST [facility] Platelets 333 130 - 400 K/mcL LAB HEMETOLOGY METHOD 04/23/2024 9:28 AM EST [facility] MPV 9.8 7.0 - 11.0 FL LAB HEMETOLOGY METHOD 04/23/2024 9:28 AM EST [facility] NRBC 0.0 <1.0 % LAB HEMETOLOGY METHOD 04/23/2024 9:28 AM EST [facility] NRBC Absolute 0.00 <0.10 K/mcL LAB HEMETOLOGY METHOD 04/23/2024 9:28 AM [facility] Blood Venous blood specimen / Unknown Venipuncture / Unknown 04/23/2024 5:04 AM EST 04/23/2024 8:47 AM EST us Matias Bowling MD LAB BLOOD ORDERABLES Final Resul t [facility] [address] [place] [address], documented in this encounter Visit Diagnoses Diagnosis Essential (primary) hypertension Unspecified essential hypertension documented in this encounter Additional Health Concerns Infection Onset Date Last Indicated Resolved Time Gastrointestinal Rule-Out 04/28/2024 04/27/2024 7:06 PM EDT C. difficile 05/29/2024 05/29/2024 C. Diff Rule-Out Infection 05/30/2024 05/29/2024 0 05/30/2024 9:47 AM EDT documented as of this encounter Care Teams Print Color Matcher Relationship Specialty Start Date End Date Matias Bowling MD [address] [place] [phone] PCP - General Family Medicine 04/16/24 documented as of this encounter
--- OUTSIDE RECORDS SUMMARY | 2024-06-03 11:04 | XMS_ITS | Encounter Summary ---
Author Organization [facility] Address [address] [place] [address] Care Team Providers Care Magnetic Resonance Imaging Director Name Role Phone Matias Bowling MD Primary Care Provider [phone] Encounter Details Date Type Department Care Team (Late st Contact Info) Description 05/22/2024 Lab Requisition [facility] - Main Lab [address] [place] [address] Matias Bowling MD 38 [facility] [address] [place], [phone] 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 classified elsewhere (CMS/HCC); Hyperlipidemia, unspecified Social History Tobacco Use Types Packs/Day [...] Associated Diagnosis Comments COMPLETE BLOOD COUNT Routine 05/22/2024 8:23 AM EDT 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 classified elsewhere (CMS/HCC) Hyperlipidemia, unspecified BASIC METABOLIC PANEL Routine 05/22/2024 8:23 AM EDT 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 classified elsewhere (CMS/HCC) Hyperlipidemia, unspecified documented in this encounter Results * (ABNORMAL) Basic metabolic panel (05/22/2024 8:23 AM EDT) Sodium 134 133 - 145 mmol/L LAB CHEMISTRY METHOD 05/22/2024 11:37 AM EDT [facility] Potassium 5.2 3.5 - 5.5 mmol/L LAB CHEMISTRY METHOD 05/22/2024 11:37 AM [facility] Chloride 102 96 - 110 mmol/L LAB CHEMISTRY METHOD 05/22/2024 11:37 AM [facility] CO2 25 21 - 32 mmol/L LAB CHEMISTRY METHOD 05/22/2024 11:37 AM [facility] Anion Gap 7 3 - 11 LAB CHEMISTRY METHOD 05/22/2024 11:37 AM [facility] Glucose 163(H) 70 - 100 mg/dL LAB CHEMISTRY METHOD 05/22/2024 11:37 AM [facility] BUN 18 5 - 25 mg/dL LAB CHEMISTRY METHOD 05/22/2024 11:37 AM [facility] Creatinine 1.65(H) 0.50 - 1.10 mg/dL LAB CHEMISTRY METHOD 05/22/2024 11:37 AM [facility] eGFR 34(L) >=60 mL/min/1. 73m2 LAB CHEMISTRY METHOD 05/22/2024 11:37 AM [facility] Comment:Calculation based on the??Chronic Kidney Disease Epidemiology Collaboration (CKD-EPI) equation refit??without adjustment for race. BUN/Creatinine Ratio 10.9 LAB CHEMISTRY METHOD 05/22/2024 11:37 AM [facility] Calcium 8.8 8.5 - 10.5 mg/dL LAB CHEMISTRY METHOD 05/22/2024 11:37 AM [facility] Blood Venous blood specimen / Unknown Venipuncture / Unknown 05/22/2024 8:23 AM EDT 05/22/2024 10:31 AM EDT us Matias Bowling MD LAB BLOOD ORDERABLES Final Resul t [facility] [address] [place] [address], * (ABNORMAL) Complete blood count (05/22/2024 8:23 AM EDT) [facility] WBC 9.8 4.8 - 10.8 K/mcL LAB HEMETOLOGY METHOD 05/22/2024 11:21 AM [facility] RBC 3.60(L) 3.80 - 4.80 M/mcL LAB HEMETOLOGY METHOD 05/22/2024 11:21 AM [facility] Hemoglobin 9.5(L) 11.5 - 16.0 g/dL LAB HEMETOLOGY METHOD 05/22/2024 11:21 AM [facility] Hematocrit 31.2(L) 35.0 - 47.0 % LAB HEMETOLOGY METHOD 05/22/2024 11:21 AM [facility] MCV 86.4 79.0 - 98.0 FL LAB HEMETOLOGY METHOD 05/22/2024 11:21 AM [facility] MCH 26.3(L) 27.0 - 32.0 pcg LAB HEMETOLOGY METHOD 05/22/2024 11:21 AM [facility] MCHC 30.4(L) 32.0 - 37.0 g/dL LAB HEMETOLOGY METHOD 05/22/2024 11:21 AM [facility] RDW 14.7 11.0 - 15.0 % LAB HEMETOLOGY METHOD 05/22/2024 11:21 AM [facility] Platelets 278 130 - 400 K/mcL LAB HEMETOLOGY METHOD 05/22/2024 11:21 AM [facility] MPV 10.5 7.0 - 11.0 FL LAB HEMETOLOGY METHOD 05/22/2024 11:21 AM [facility] NRBC 0.0 <1.0 % LAB HEMETOLOGY METHOD 05/22/2024 11:21 AM [facility] NRBC Absolute 0.00 <0.10 K/mcL LAB HEMETOLOGY METHOD 05/22/2024 11:21 AM EDT [facility] Blood Venous blood specimen / Unknown Venipuncture / Unknown 05/22/2024 8:23 AM EDT 05/22/2024 10:31 AM EDT us Matias Bowling MD LAB BLOOD ORDERABLES Final Resul t [facility] [address] [place] [address], documented in this encounter Visit Diagnoses Diagnosis 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 classified elsewhere (CMS/HCC) Hyperlipidemia, unspecified documented in this encounter Additional Health Concerns Infection Onset Date Last Indicated Resolved Time Gastrointestinal Rule-Out 04/28/2024 04/27/2024 7:06 PM EDT C. difficile 05/29/2024 05/29/2024 C. Diff Rule-Out Infection 05/30/2024 05/29/2024 0 05/30/2024 9:47 AM EDT documented as of this encounter Care Teams Magnetic Resonance Imaging Director Relationship Specialty Start Date End Date Matias Bowling MD [address] [place] [address] [place] [address] PCP - General Family Medicine 04/16/24 documented as of this encounter
--- OUTSIDE RECORDS SUMMARY | 2024-06-03 11:04 | XMS_ITS | Clinical Summary ---
Author Organization [address] Address [address] [place] [address] Phone Care Team Providers Care Recycling Sorter Name Role Phone Matias Bowling MD Primary Care Provider Encounters Date Type Department Care Team Description 06/03/2024 Lab Requisition [facility] Lab [address] [place] [address] Matias Bowling MD Essential (primary) hypertension 05/30/2024 Lab Requisition [facility] Lab [address] [place] [address] Matias Bowling MD Diarrhea, unspecified 05/27/2024 Lab Requisition [facility] Lab [address] [place] [address] Matias Bowling MD Essential (primary) hypertension 05/22/2024 Lab Requisition [facility] Lab [address] [place] [address] Matias Bowling MD 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 classified elsewhere (CMS/HCC); Hyperlipidemia, unspecified 05/20/2024 Lab Requisition [facility] Main Lab [address] [place] [address] Matias Bowling MD Essential (primary) hypertension 05/13/2024 Lab Requisition [facility] Lab [address] [place] [address] Matias Bowling MD Essential (primary) hypertension 05/06/2024 Lab Requisition [facility] Lab [address] [place] [address] Matias Bowling MD Essential (primary) hypertension 04/30/2024 Lab Requisition [facility] - Main Lab [address] [place] [phone] Matias Bowling MD Essential (primary) hypertension 04/29/2024 Lab Requisition [facility] Main Lab [address] [place] [phone] Matias Bowling MD Essential (primary) hypertension 04/29/2024 Lab Requisition [facility] Main Lab [address] [place] [phone] Matias Bowling MD Hyperlipidemia, unspecified; 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 classified elsewhere (CMS/HCC) 04/28/2024 Lab Requisition [facility] Lab [address] [place] [phone] Matias Bowling MD Diarrhea, unspecified 04/23/2024 Lab Requisition [facility] Lab [address] [place] [phone] Matias Bowling MD Essential (primary) hypertension 04/16/2024 Lab Requisition [facility] Lab [address] [place] [phone] Matias Bowling MD Essential (primary) hypertension from [...] of 2) 12/29/2005 COVID-19 Vaccine ( - season) 2023 Cholesterol Screening (Lipid Panel) 04/16/2024 Depression Screening 04/16/2024 Falls Risk Assessment 04/16/2024 Hepatitis C Screening 04/16/2024 Medicare Annual Wellness Visit 04/16/2024 Osteoporosis Screening (Bone Density Screening) 04/16/2024 Social Influencers of Health Screening 04/16/2024 Influenza Vaccine (Season Ended) 2024 Hypertension/CHF/CAD Annual BMP Blood Test 05/28/2025 05/28/2024, 05/22/2024, 05/21/2024, Additional history exists Colorectal Cancer Screening: Stool Based Tests (FOBT/FIT) 05/29/2025 05/29/2024 RSV Immunization Adult Patients (1 - 1-dose 75+ series) 12/29/2030 HIB [...] age to complete this topic Meningococcal B Vaccine Aged Out No l onger eligible based on patient's age to complete this topic RSV Immunization Patients Under 20 months Aged Out No longer eligible based on patient's age to complete this topic Varicella Vaccines Aged Out No longer eligible based on patient's age to complete this topic Procedures Procedure Name Priority Date/Time Associated Diagnosis Comments OCCULT BLOOD STOOL, GUAIAC Routine 05/29/2024 1:50 PM EDT Diarrhea, unspecified CLOSTRIDIUM DIFFICILE PCR Routine 05/29/2024 1:50 PM EDT Diarrhea, unspecified OVA AND PARASITE EXAMINATION Routine 05/29/2024 1:50 PM EDT Diarrhea, unspecified CLOSTRIDIUM DIFFICILE TOXIN Routine 05/29/2024 1:50 PM EDT Diarrhea, unspecified COMPREHENSIVE METABOLIC PANEL Routine 05/28/2024 5:02 AM EDT Essential (primary) hypertension COMPLETE BLOOD COUNT Routine 05/28/2024 5:02 AM EDT Essential (primary) hypertension BASIC METABOLIC PANEL Routine 05/22/2024 8:23 AM EDT 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 classified elsewhere (CMS/HCC) Hyperlipidemia, unspecified COMPLETE BLOOD COUNT Routine 05/22/2024 8:23 AM EDT 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 classified elsewhere (CMS/HCC) Hyperlipidemia, unspecified COMPREHENSIVE METABOLIC PANEL Routine 05/21/2024 5:43 AM EDT Essential (primary) hypertension COMPLETE BLOOD COUNT Routine 05/21/2024 5:43 AM EDT Essential (primary) hypertension COMPREHENSIVE METABOLIC PANEL Routine 05/14/2024 6:06 AM EDT Essential (primary) hypertension COMPLETE BLOOD COUNT Routine 05/14/2024 6:06 AM EDT Essential (primary) hypertension COMPREHENSIVE METABOLIC [...] hypertension from Last 3 Months Results * Occult blood stool, guaiac (05/29/2024 1:50 PM EDT) Occult Blood, Stool #1 Negative Negative 05/30/2024 9:30 AM EDT [facility] Stool Rectum structure / Unknown Non-blood Collection / Unknown 05/29/2024 1:50 PM EDT 05/30/2024 8:36 AM EDT Matias Bowling MD LAB BODY FLUIDS AND STOOLS ORDER MARGARET Final Result [facility] [address] [place] [address], [place] [phone] * Ova and parasite examination (05/29/2024 1:50 PM EDT) Ova and Parasite No Ova or Parasite seen. 06/03/2024 10:02 AM EDT [facility] Stool Rectum structure / Unknown Non-blood Collection / Unknown 05/29/2024 1:50 PM EDT 05/30/2024 8:36 AM EDT Narrative [facility] - 06/03/2024 10:02 AM EDT Special test request required for Coccidia and Microsporidia. Matias Bowling MD LAB MICROBIOLOGY - GENERAL ORDER MARGARET Final Result [facility] [address] [place] [address], [place] [phone] * (ABNORMAL) Clostridium difficile molecular study (05/29/2024 1:50 PM EDT) [facility] Clostridium difficile PCR Positive (AA) Negative LAB MICROBIOLOGY METHOD 05/30/2024 11:16 AM EDT [facility] Comment: CRITICAL RESULT POSITIVE FOR TOXIN PRODUCING CLOSTRIDIOIDES DIFFICILE, NO ADDITIONAL TESTING IS NECESSARY. REPEAT SAMPLES SHOULD NOT BE SUBMITTED FOR TEST OF CURE. Stool Rectum structure / Unknown Non-blood Collection / Unknown 05/29/2024 1:50 PM EDT 05/30/2024 9:47 AM EDT Matias Bwoling MD LAB MICROBIOLOGY - GENERAL ORDER MARGARET Final Result Performing Organization Address City/[facility]/ZIP Co de Phone Number [facility] [address] [place] [address], [place] [phone] * Clostridium difficile toxin (05/29/2024 1:50 PM EDT) [facility] C difficile Toxins A+B, EIA 05/30/2024 9:47 AM EDT [facility] Comment:Refer to C. difficil e PCR assay for results. Stool Rectum structure / Unknown Non-blood Collection / Unknown 05/29/2024 1:50 PM EDT 05/30/2024 8:36 AM EDT Matias Bowling MD LAB MICROBIOLOGY - GENERAL ORDER MARGARET Final Result Performing Organization Address [facility]/ZIP Co de Phone Number [facility] [address] [place] [address], [place] [phone] * (ABNORMAL) Complete blood count (05/28/2024 5:02 AM EDT) Only the most recent of9 resultswithin the time period is included. [facility] WBC 10.3 4.8 - 10.8 K/mcL LAB HEMETOLOGY METHOD 05/28/2024 9:26 AM [facility] RBC 3.30(L) 3.80 - 4.80 M/mcL LAB HEMETOLOGY METHOD 05/28/2024 9:26 AM [facility] Hemoglobin 8.7(L) 11.5 - 16.0 g/dL LAB HEMETOLOGY METHOD 05/28/2024 9:26 AM [facility] Hematocrit 28.7(L) 35.0 - 47.0 % LAB HEMETOLOGY METHOD 05/28/2024 9:26 AM [facility] MCV 87.0 79.0 - 98.0 FL LAB HEMETOLOGY METHOD 05/28/2024 9:26 AM [facility] MCH 26.4(L) 27.0 - 32.0 pcg LAB HEMETOLOGY METHOD 05/28/2024 9:26 AM [facility] MCHC 30.3(L) 32.0 - 37.0 g/dL LAB HEMETOLOGY METHOD 05/28/2024 9:26 AM [facility] RDW 14.9 11.0 - 15.0 % LAB HEMETOLOGY METHOD 05/28/2024 9:26 AM [facility] Platelets 281 130 - 400 K/mcL LAB HEMETOLOGY METHOD 05/28/2024 9:26 AM [facility] MPV 10.2 7.0 - 11.0 FL LAB HEMETOLOGY METHOD 05/28/2024 9:26 AM [facility] NRBC 0.0 <1.0 % LAB HEMETOLOGY METHOD 05/28/2024 9:26 AM [facility] NRBC Absolute 0.00 <0.10 K/mcL LAB HEMETOLOGY METHOD 05/28/2024 9:26 AM [facility] Blood Venous blood specimen / Unknown Venipuncture / Unknown 05/28/2024 5:02 AM EDT 05/28/2024 9:04 AM EDT us Matias Bowling MD LAB BLOOD ORDERABLES Final Resul t [facility] [address] [place] [address], [place] [phone] * (ABNORMAL) Comprehensive metabolic panel (05/28/2024 5:02 AM EDT) Only the most recent of7 resultswithin the time period is included. Sodium 137 133 - 145 mmol/L LAB CHEMISTRY METHOD 05/28/2024 10:13 AM [facility] Potassium 4.2 3.5 - 5.5 mmol/L LAB CHEMISTRY METHOD 05/28/2024 10:13 AM [facility] Chloride 103 96 - 110 mmol/L LAB CHEMISTRY METHOD 05/28/2024 10:13 AM [facility] CO2 28 21 - 32 mmol/L LAB CHEMISTRY METHOD 05/28/2024 10:13 AM [facility] Anion Gap 6 3 - 11 LAB CHEMISTRY METHOD 05/28/2024 10:13 AM [facility] Glucose 141(H) 70 - 100 mg/dL LAB CHEMISTRY METHOD 05/28/2024 10:13 AM [facility] BUN 13 5 - 25 mg/dL LAB CHEMISTRY METHOD 05/28/2024 10:13 AM [facility] Creatinine 1.21(H) 0.50 - 1.10 mg/dL LAB CHEMISTRY METHOD 05/28/2024 10:13 AM [facility] eGFR 49(L) >=60 mL/min/1. 73m2 LAB CHEMISTRY METHOD 05/28/2024 10:13 AM [facility] Comment:Calculation based on the??Chronic Kidney Disease Epidemiology Collaboration (CKD-EPI) equation refit??without adjustment for race. BUN/Creatinine Ratio 10.7 LAB CHEMISTRY METHOD 05/28/2024 10:13 AM [facility] Calcium 8.6 8.5 - 10.5 mg/dL LAB CHEMISTRY METHOD 05/28/2024 10:13 AM [facility] AST (SGOT) 12 10 - 42 unit/L LAB CHEMISTRY METHOD 05/28/2024 10:13 AM [facility] ALT (SGPT) 19 10 - 60 unit/L LAB CHEMISTRY METHOD 05/28/2024 10:13 AM [facility] Alkaline Phosphatase 147(H) 42 - 121 unit/L LAB CHEMISTRY METHOD 05/28/2024 10:13 AM [facility] Total Protein 6.3 6.0 - 8.0 g/dL LAB CHEMISTRY METHOD 05/28/2024 10:13 AM [facility] Albumin 3.1(L) 3.2 - 5.0 g/dL LAB CHEMISTRY METHOD 05/28/2024 10:13 AM [facility] Total Bilirubin 0.2 0.0 - 1.4 mg/dL LAB CHEMISTRY METHOD 05/28/2024 10:13 AM [facility] Blood Venous blood specimen / Unknown Venipuncture / Unknown 05/28/2024 5:02 AM EDT 05/28/2024 9:04 AM EDT us Matias Bowling MD LAB BLOOD ORDERABLES Final Resul t [facility] [address] [place] [address], * (ABNORMAL) Basic metabolic panel (05/22/2024 8:23 AM EDT) Only the most recent of2 resultswithin the time period is included. Sodium 134 133 - 145 mmol/L LAB CHEMISTRY METHOD 05/22/2024 11:37 AM [facility] Potassium 5.2 3.5 - 5.5 mmol/L LAB CHEMISTRY METHOD 05/22/2024 11:37 AM [facility] Chloride 102 96 - 110 mmol/L LAB CHEMISTRY METHOD 05/22/2024 11:37 AM [facility] CO2 25 21 - 32 mmol/L LAB CHEMISTRY METHOD 05/22/2024 11:37 AM [facility] Anion Gap 7 3 - 11 LAB CHEMISTRY METHOD 05/22/2024 11:37 AM [facility] Glucose 163(H) 70 - 100 mg/dL LAB CHEMISTRY METHOD 05/22/2024 11:37 AM [facility] BUN 18 5 - 25 mg/dL LAB CHEMISTRY METHOD 05/22/2024 11:37 AM [facility] Creatinine 1.65(H) 0.50 - 1.10 mg/dL LAB CHEMISTRY METHOD 05/22/2024 11:37 AM [facility] eGFR 34(L) >=60 mL/min/1. 73m2 LAB CHEMISTRY METHOD 05/22/2024 11:37 AM [facility] Comment:Calculation based on the??Chronic Kidney Disease Epidemiology Collaboration (CKD-EPI) equation refit??without adjustment for race. BUN/Creatinine Ratio 10.9 LAB CHEMISTRY METHOD 05/22/2024 11:37 AM [facility] Calcium 8.8 8.5 - 10.5 mg/dL LAB CHEMISTRY METHOD 05/22/2024 11:37 AM [facility] Blood Venous blood specimen / Unknown Venipuncture / Unknown 05/22/2024 8:23 AM EDT 05/22/2024 10:31 AM EDT us Matias Bowling MD LAB BLOOD ORDERABLES Final Resul t [facility] [address] [place] [address], from Last 3 Months Additional Health Concerns Infection Onset Date Last Indicated C. difficile 05/29/2024 05/29/2024 Insurance [facility] MEDICARE Member Subscriber Plan / Payer (Ef fective 2022-Present) Name:Trish Hunter Relation to Subscriber:Self Name:Trish Hunter Payer ID:[id number] Group ID:[id number] Type:Not on file Address: [place] [address] [address] [phone] Care Teams Recycling Sorter Relationship Specialty Start Date End Date Matias Bowling MD [address] [place] [phone] PCP - General Family Medicine 04/16/24
--- OUTSIDE RECORDS SUMMARY | 2024-06-03 11:04 | XMS_ITS | Encounter Summary ---
Author Organization [facility] Address [address] [place] [address] Care Team Providers Care Division Commander Name Role Phone Matias Bowling MD Primary Care Provider [phone] Encounter Details Date Type Department Care Team (Late st Contact Info) Description 05/13/2024 Lab Requisition [facility] - Main Lab [address] [place] [address] Matias Bowling MD [address] [facility] [address] [place], [address] Essential (primary) hypertension Social History Tobacco [...] Associated Diagnosis Comments COMPLETE BLOOD COUNT Routine 05/14/2024 6:06 AM EDT Essential (primary) hypertension COMPREHENSIVE METABOLIC PANEL Routine 05/14/2024 6:06 AM EDT Essential (primary) hypertension documented in this encounter Results * (ABNORMAL) Comprehensive metabolic panel (05/14/2024 6:06 AM EDT) Sodium 138 133 - 145 mmol/L LAB CHEMISTRY METHOD 05/14/2024 11:24 AM EDT [facility] Potassium 5.2 3.5 - 5.5 mmol/L LAB CHEMISTRY METHOD 05/14/2024 11:24 AM EDT [facility] Chloride 108 96 - 110 mmol/L LAB CHEMISTRY METHOD 05/14/2024 11:24 AM [facility] CO2 25 21 - 32 mmol/L LAB CHEMISTRY METHOD 05/14/2024 11:24 AM [facility] Anion Gap 5 3 - 11 LAB CHEMISTRY METHOD 05/14/2024 11:24 AM [facility] Glucose 132(H) 70 - 100 mg/dL LAB CHEMISTRY METHOD 05/14/2024 11:24 AM [facility] BUN 13 5 - 25 mg/dL LAB CHEMISTRY METHOD 05/14/2024 11:24 AM [facility] Creatinine 1.06 0.50 - 1.10 mg/dL LAB CHEMISTRY METHOD 05/14/2024 11:24 AM [facility] eGFR 57(L) >=60 mL/min/1. 73m2 LAB CHEMISTRY METHOD 05/14/2024 11:24 AM [facility] Comment:Calculation based on the??Chronic Kidney Disease Epidemiology Collaboration (CKD-EPI) equation refit??without adjustment for race. BUN/Creatinine Ratio 12.3 LAB CHEMISTRY METHOD 05/14/2024 11:24 AM [facility] Calcium 9.6 8.5 - 10.5 mg/dL LAB CHEMISTRY METHOD 05/14/2024 11:24 AM [facility] AST (SGOT) 20 10 - 42 unit/L LAB CHEMISTRY METHOD 05/14/2024 11:24 AM [facility] ALT (SGPT) 28 10 - 60 unit/L LAB CHEMISTRY METHOD 05/14/2024 11:24 AM [facility] Alkaline Phosphatase 160(H) 42 - 121 unit/L LAB CHEMISTRY METHOD 05/14/2024 11:24 AM [facility] Total Protein 6.6 6.0 - 8.0 g/dL LAB CHEMISTRY METHOD 05/14/2024 11:24 AM [facility] Albumin 3.2 3.2 - 5.0 g/dL LAB CHEMISTRY METHOD 05/14/2024 11:24 AM EDT [facility] Total Bilirubin 0.2 0.0 - 1.4 mg/dL LAB CHEMISTRY METHOD 05/14/2024 11:24 AM EDT [facility] Blood Venous blood specimen / Unknown Venipuncture / Unknown 05/14/2024 6:06 AM EDT 05/14/2024 9:53 AM EDT us Matias Bowling MD LAB BLOOD ORDERABLES Final Resul t [facility] [address] [place] [address], [place] [phone] * (ABNORMAL) Complete blood count (05/14/2024 6:06 AM EDT) WBC 8.8 4.8 - 10.8 K/mcL LAB HEMETOLOGY METHOD 05/14/2024 10:16 AM T [facility] RBC 3.50(L) 3.80 - 4.80 M/mcL LAB HEMETOLOGY METHOD 05/14/2024 10:16 AM T [facility] Hemoglobin 9.4(L) 11.5 - 16.0 g/dL LAB HEMETOLOGY METHOD 05/14/2024 10:16 AM EDT [facility] Hematocrit 30.4(L) 35.0 - 47.0 % LAB HEMETOLOGY METHOD 05/14/2024 10:16 AM EDT [facility] MCV 85.9 79.0 - 98.0 FL LAB HEMETOLOGY METHOD 05/14/2024 10:16 AM T [facility] MCH 26.6(L) 27.0 - 32.0 pcg LAB HEMETOLOGY METHOD 05/14/2024 10:16 AM T [facility] MCHC 30.9(L) 32.0 - 37.0 g/dL LAB HEMETOLOGY METHOD 05/14/2024 10:16 AM EDT [facility] RDW 14.6 11.0 - 15.0 % LAB HEMETOLOGY METHOD 05/14/2024 10:16 AM EDT [facility] Platelets 275 130 - 400 K/mcL LAB HEMETOLOGY METHOD 05/14/2024 10:16 AM EDT [facility] MPV 10.1 7.0 - 11.0 FL LAB HEMETOLOGY METHOD 05/14/2024 10:16 AM EDT [facility] NRBC 0.0 <1.0 % LAB HEMETOLOGY METHOD 05/14/2024 10:16 AM EDT [facility] NRBC Absolute 0.00 <0.10 K/mcL LAB HEMETOLOGY METHOD 05/14/2024 10:16 AM EDT [facility] Blood Venous blood specimen / Unknown Venipuncture / Unknown 05/14/2024 6:06 AM EDT 05/14/2024 9:53 AM EDT us Matias Bowling MD LAB BLOOD ORDERABLES Final Resul t [facility] [address] [place] [address], documented in this encounter Visit Diagnoses Diagnosis Essential (primary) hypertension Unspecified essential hypertension documented in this encounter Additional Health Concerns Infection Onset Date Last Indicated Resolved Time Gastrointestinal Rule-Out 04/28/2024 04/27/2024 7:06 PM EDT C. difficile 05/29/2024 05/29/2024 C. Diff Rule-Out Infection 05/30/2024 05/29/2024 0 05/30/2024 9:47 AM EDT documented as of this encounter Care Teams Division Commander Relationship Specialty Start Date End Date Matias Bowling MD [address] [place] [address] PCP - General Family Medicine 04/16/24 documented as of this encounter
--- OUTSIDE RECORDS SUMMARY | 2024-06-03 11:04 | XMS_ITS | Encounter Summary ---
Author Organization [facility] Address [address] [place] [address] Care Team Providers Care Cardroom Manager Name Role Phone Matias Bowling MD Primary Care Provider [phone] Encounter Details Date Type Department Care Team (Late st Contact Info) Description 05/30/2024 Lab Requisition [facility] - Main Lab 299 [facility] [place] [address] Matias Bowling MD 38 [facility] [address] [place], [address] Diarrhea, unspecified Social History Tobacco Use [...] Routine 05/29/2024 1:50 PM EDT Diarrhea, unspecified documented in this encounter Results * (ABNORMAL) Clostridium difficile molecular study (05/29/2024 1:50 PM EDT) Clostridium difficile PCR Positive (AA) Negative LAB MICROBIOLOGY METHOD 05/30/2024 11:16 AM EDT [facility] Comment: CRITICAL RESULT POSITIVE FOR TOXIN PRODUCING CLOSTRIDIOIDES DIFFICILE, NO ADDITIONAL TESTING IS NECESSARY. REPEAT SAMPLES SHOULD NOT BE SUBMITTED FOR TEST OF CURE. Stool Rectum structure / Unknown Non-blood Collection / Unknown 05/29/2024 1:50 PM EDT 05/30/2024 9:47 AM EDT Matias Bowling MD LAB MICROBIOLOGY - GENERAL ORDER MARGARET Final Result Performing Organization Address City/[facility]/ZIP Co de Phone Number [facility] [address] [place] [address], [place] [phone] * Occult blood stool, guaiac (05/29/2024 1:50 PM EDT) Occult Blood, Stool #1 Negative Negative 05/30/2024 9:30 AM EDT [facility] Stool Rectum structure / Unknown Non-blood Collection / Unknown 05/29/2024 1:50 PM EDT 05/30/2024 8:36 AM EDT Matias Bowling MD LAB BODY FLUIDS AND STOOLS ORDER MARGARET Final Result Performing Organization Address [facility]/ZIP Co de Phone Number [facility] [address] [place] [address], [place] [phone] * Ova and parasite examination (05/29/2024 1:50 PM EDT) Ova and Parasite No Ova or Parasite seen. 06/03/2024 10:02 AM EDT [facility] Stool Rectum structure / Unknown Non-blood Collection / Unknown 05/29/2024 1:50 PM EDT 05/30/2024 8:36 AM EDT Narrative [facility] - 06/03/2024 10:02 AM EDT Special test request required for Coccidia and Microsporidia. Matias Bowling MD LAB MICROBIOLOGY - GENERAL ORDER MARGARET Final Result Performing Organization Address [facility]/ZIP Co de Phone Number [facility] [address] [place] [address], [place] [phone] * Clostridium difficile toxin (05/29/2024 1:50 PM EDT) C difficile Toxins A+B, EIA 05/30/2024 9:47 AM EDT [facility] Comment:Refer to C. difficil e PCR assay for results. Stool Rectum structure / Unknown Non-blood Collection / Unknown 05/29/2024 1:50 PM EDT 05/30/2024 8:36 AM EDT Matias Bowling MD LAB MICROBIOLOGY - GENERAL ORDER MARGARET Final Result Performing Organization Address [facility] Co de Phone Number [facility] [address] [place] [address], [place] [phone] documented in this encounter Visit Diagnoses Diagnosis Diarrhea, unspecified documented in this encounter Additional Health Concerns Infection Onset Date Last Indicated Resolved Time C. difficile 05/29/2024 05/29/2024 C. Diff Rule-Out Infection 05/30/2024 05/29/2024 0 05/30/2024 9:47 AM EDT documented as of this encounter Care Teams Cardroom Manager Relationship Specialty Start Date End Date Matias Bowling MD [address] [place] [phone] PCP - General Family Medicine 04/16/24 documented as of this encounter
--- OUTSIDE RECORDS SUMMARY | 2024-06-03 11:04 | XMS_ITS | Encounter Summary ---
Author Organization [facility] Address [address] [place] [address] Care Team Providers Care Remedial Project Manager Name Role Phone Matias Bowling MD Primary Care Provider [phone] Encounter Details Date Type Department Care Team (Late st Contact Info) Description 05/20/2024 Lab Requisition [facility] - Main Lab [address] [place] [address] Matias Bowling MD 38 [facility] [address] [place], [address] Essential (primary) hypertension Social History Tobacco [...] Associated Diagnosis Comments COMPLETE BLOOD COUNT Routine 05/21/2024 5:43 AM EDT Essential (primary) hypertension COMPREHENSIVE METABOLIC PANEL Routine 05/21/2024 5:43 AM EDT Essential (primary) hypertension documented in this encounter Results * (ABNORMAL) Comprehensive metabolic panel (05/21/2024 5:43 AM EDT) Sodium 136 133 - 145 mmol/L LAB CHEMISTRY METHOD 05/21/2024 11:29 AM EDT [facility] Potassium 5.9(H) 3.5 - 5.5 mmol/L LAB CHEMISTRY METHOD 05/21/2024 11:29 AM EDT [facility] Chloride 102 96 - 110 mmol/L LAB CHEMISTRY METHOD 05/21/2024 11:29 AM [facility] CO2 27 21 - 32 mmol/L LAB CHEMISTRY METHOD 05/21/2024 11:29 AM [facility] Anion Gap 7 3 - 11 LAB CHEMISTRY METHOD 05/21/2024 11:29 AM [facility] Glucose 152(H) 70 - 100 mg/dL LAB CHEMISTRY METHOD 05/21/2024 11:29 AM [facility] BUN 21 5 - 25 mg/dL LAB CHEMISTRY METHOD 05/21/2024 11:29 AM [facility] Creatinine 2.30(H) 0.50 - 1.10 mg/dL LAB CHEMISTRY METHOD 05/21/2024 11:29 AM [facility] eGFR 23(L) >=60 mL/min/1. 73m2 LAB CHEMISTRY METHOD 05/21/2024 11:29 AM [facility] Comment:Calculation based on the??Chronic Kidney Disease Epidemiology Collaboration (CKD-EPI) equation refit??without adjustment for race. BUN/Creatinine Ratio 9.1 LAB CHEMISTRY METHOD 05/21/2024 11:29 AM [facility] Calcium 8.9 8.5 - 10.5 mg/dL LAB CHEMISTRY METHOD 05/21/2024 11:29 AM [facility] AST (SGOT) 23 10 - 42 unit/L LAB CHEMISTRY METHOD 05/21/2024 11:29 AM [facility] ALT (SGPT) 30 10 - 60 unit/L LAB CHEMISTRY METHOD 05/21/2024 11:29 AM [facility] Alkaline Phosphatase 174(H) 42 - 121 unit/L LAB CHEMISTRY METHOD 05/21/2024 11:29 AM [facility] Total Protein 6.7 6.0 - 8.0 g/dL LAB CHEMISTRY METHOD 05/21/2024 11:29 AM EDT [facility] Albumin 3.3 3.2 - 5.0 g/dL LAB CHEMISTRY METHOD 05/21/2024 11:29 AM EDT [facility] Total Bilirubin 0.3 0.0 - 1.4 mg/dL LAB CHEMISTRY METHOD 05/21/2024 11:29 AM T [facility] Blood Venous blood specimen / Unknown Venipuncture / Unknown 05/21/2024 5:43 AM EDT 05/21/2024 9:27 AM EDT us Matias Bowling MD LAB BLOOD ORDERABLES Final Resul t [facility] [address] [place] [address], [place] [phone] * (ABNORMAL) Complete blood count (05/21/2024 5:43 AM EDT) WBC 10.3 4.8 - 10.8 K/mcL LAB HEMETOLOGY METHOD 05/21/2024 10:10 AM [facility] RBC 3.50(L) 3.80 - 4.80 M/mcL LAB HEMETOLOGY METHOD 05/21/2024 10:10 AM [facility] Hemoglobin 9.0(L) 11.5 - 16.0 g/dL LAB HEMETOLOGY METHOD 05/21/2024 10:10 AM [facility] Hematocrit 30.0(L) 35.0 - 47.0 % LAB HEMETOLOGY METHOD 05/21/2024 10:10 AM [facility] MCV 86.5 79.0 - 98.0 FL LAB HEMETOLOGY METHOD 05/21/2024 10:10 AM [facility] MCH 25.9(L) 27.0 - 32.0 pcg LAB HEMETOLOGY METHOD 05/21/2024 10:10 AM [facility] MCHC 30.0(L) 32.0 - 37.0 g/dL LAB HEMETOLOGY METHOD 05/21/2024 10:10 AM EDT [facility] RDW 15.1(H) 11.0 - 15.0 % LAB HEMETOLOGY METHOD 05/21/2024 10:10 AM EDT [facility] Platelets 272 130 - 400 K/mcL LAB HEMETOLOGY METHOD 05/21/2024 10:10 AM EDT [facility] MPV 10.2 7.0 - 11.0 FL LAB HEMETOLOGY METHOD 05/21/2024 10:10 AM EDT [facility] NRBC 0.0 <1.0 % LAB HEMETOLOGY METHOD 05/21/2024 10:10 AM EDT [facility] NRBC Absolute 0.00 <0.10 K/mcL LAB HEMETOLOGY METHOD 05/21/2024 10:10 AM EDT [facility] Blood Venous blood specimen / Unknown Venipuncture / Unknown 05/21/2024 5:43 AM EDT 05/21/2024 9:27 AM EDT us Matias Bowling MD LAB BLOOD ORDERABLES Final Resul t [facility] [address] [place] [address], documented in this encounter Visit Diagnoses Diagnosis Essential (primary) hypertension Unspecified essential hypertension documented in this encounter Additional Health Concerns Infection Onset Date Last Indicated Resolved Time Gastrointestinal Rule-Out 04/28/2024 04/27/2024 7:06 PM EDT C. difficile 05/29/2024 05/29/2024 C. Diff Rule-Out Infection 05/30/2024 05/29/2024 0 05/30/2024 9:47 AM EDT documented as of this encounter Care Teams Remedial Project Manager Relationship Specialty Start Date End Date Matias Bowling MD 38 [facility] [address] [place] [phone] PCP - General Family Medicine 04/16/24 documented as of this encounter
--- OUTSIDE RECORDS SUMMARY | 2024-06-03 11:04 | XMS_ITS | Encounter Summary ---
Author Organization [facility] Address [address] [place] [address] Care Team Providers Care Corrections Cadet Name Role Phone Matias Bowling MD Primary Care Provider [phone] Encounter Details Date Type Department Care Team (Late st Contact Info) Description 04/28/2024 Lab Requisition [facility] - Main Lab [address] [facility] [place] [address] Matias Bowling MD 38 [facility] 204 [facility] [address] Diarrhea, unspecified Social History Tobacco Use [...] documented as of this encounter Care Teams Corrections Cadet Relationship Specialty Start Date End Date Matias Bowling MD 38 [facility] [address] [place] [address] PCP - General Family Medicine 04/16/24 documented as of this encounter
--- OUTSIDE RECORDS SUMMARY | 2024-06-03 11:04 | XMS_ITS | Encounter Summary ---
Author Organization [facility] Address [address] [place] [address] Care Team Providers Care Ceramics Engineer Name Role Phone Matias Bowling MD Primary Care Provider [phone] Encounter Details Date Type Department Care Team (Late st Contact Info) Description 06/03/2024 Lab Requisition [facility] - Main Lab 299 [facility] [place] [address] Matias Bowling MD 38 [facility] 204 [facility] [address] Essential (primary) hypertension Social History [...] count Lab Routine Essential (primary) hypertension Ordered: 06/03/2024 Comprehensive metabolic panel Lab Routine Essential (primary) hypertension Ordered: 06/03/2024 documented as of this encounter Visit Diagnoses Diagnosis Essential (primary) hypertension Unspecified essential hypertension documented in this encounter Additional Health Concerns Infection Onset Date Last Indicated Resolved Time C. difficile 05/29/2024 05/29/2024 documented as of this encounter Care Teams Ceramics Engineer Relationship Specialty Start Date End Date Matias Bowling MD [address] [phone] PCP - General Family Medicine 04/16/24 documented as of this encounter
--- OUTSIDE RECORDS SUMMARY | 2024-06-03 11:04 | XMS_ITS | Encounter Summary ---
Author Organization [facility] Address [address] [place] [address] Care Team Providers Care Resident Care Director Name Role Phone Matias Bowling MD Primary Care Provider [phone] Encounter Details Date Type Department Care Team (Late st Contact Info) Description 04/16/2024 Lab Requisition [facility] - Main Lab [address] [place] [address] Matias Bowling MD 38 [facility] 204 [place], [address] Essential (primary) hypertension Social History Tobacco [...] LAB CHEMISTRY METHOD 04/16/2024 11:36 AM EST [facility] Potassium 4.2 3.5 - 5.5 mmol/L LAB CHEMISTRY METHOD 04/16/2024 11:36 AM EST [facility] Chloride 103 96 - 110 mmol/L LAB CHEMISTRY METHOD 04/16/2024 11:36 AM [facility] CO2 25 21 - 32 mmol/L LAB CHEMISTRY METHOD 04/16/2024 11:36 AM [facility] Anion Gap 13(H) 3 - 11 LAB CHEMISTRY METHOD 04/16/2024 11:36 AM [facility] Glucose 96 70 - 100 mg/dL LAB CHEMISTRY METHOD 04/16/2024 11:36 AM [facility] BUN 13 5 - 25 mg/dL LAB CHEMISTRY METHOD 04/16/2024 11:36 AM [facility] Creatinine 1.13(H) 0.50 - 1.10 mg/dL LAB CHEMISTRY METHOD 04/16/2024 11:36 AM [facility] eGFR 53(L) >=60 mL/min/1. 73m2 LAB CHEMISTRY METHOD 04/16/2024 11:36 AM [facility] Comment:Calculation based on the??Chronic Kidney Disease Epidemiology Collaboration (CKD-EPI) equation refit??without adjustment for race. BUN/Creatinine Ratio 11.5 LAB CHEMISTRY METHOD 04/16/2024 11:36 AM [facility] Calcium 9.1 8.5 - 10.5 mg/dL LAB CHEMISTRY METHOD 04/16/2024 11:36 AM [facility] AST (SGOT) 31 10 - 42 unit/L LAB CHEMISTRY METHOD 04/16/2024 11:36 AM [facility] ALT (SGPT) 33 10 - 60 unit/L LAB CHEMISTRY METHOD 04/16/2024 11:36 AM [facility] Alkaline Phosphatase 181(H) 42 - 121 unit/L LAB CHEMISTRY METHOD 04/16/2024 11:36 AM [facility] Total Protein 7.5 6.0 - 8.0 g/dL LAB CHEMISTRY METHOD 04/16/2024 11:36 AM [facility] Albumin 3.3 3.2 - 5.0 g/dL LAB CHEMISTRY METHOD 04/16/2024 11:36 AM [facility] Total Bilirubin 0.4 0.0 - 1.4 mg/dL LAB CHEMISTRY METHOD 04/16/2024 11:36 AM [facility] Blood Venous blood specimen / Unknown Venipuncture / Unknown 04/16/2024 7:33 AM EST 04/16/2024 10:20 AM EST us Matias Bowling MD LAB BLOOD ORDERABLES Final Resul t [facility] [address] [place] [address], [place] [phone] * (ABNORMAL) Complete blood count (04/16/2024 7:33 AM EST) WBC 11.5(H) 4.8 - 10.8 K/mcL LAB HEMETOLOGY METHOD 04/16/2024 11:12 AM [facility] RBC 3.70(L) 3.80 - 4.80 M/mcL LAB HEMETOLOGY METHOD 04/16/2024 11:12 AM [facility] Hemoglobin 9.9(L) 11.5 - 16.0 g/dL LAB HEMETOLOGY METHOD 04/16/2024 11:12 AM [facility] Hematocrit 32.1(L) 35.0 - 47.0 % LAB HEMETOLOGY METHOD 04/16/2024 11:12 AM [facility] MCV 87.5 79.0 - 98.0 FL LAB HEMETOLOGY METHOD 04/16/2024 11:12 AM [facility] MCH 27.0 27.0 - 32.0 pcg LAB HEMETOLOGY METHOD 04/16/2024 11:12 AM [facility] MCHC 30.8(L) 32.0 - 37.0 g/dL LAB HEMETOLOGY METHOD 04/16/2024 11:12 AM EST [facility] RDW 14.2 11.0 - 15.0 % LAB HEMETOLOGY METHOD 04/16/2024 11:12 AM EST [facility] Platelets 443(H) 130 - 400 K/mcL LAB HEMETOLOGY METHOD 04/16/2024 11:12 AM EST [facility] MPV 9.8 7.0 - 11.0 FL LAB HEMETOLOGY METHOD 04/16/2024 11:12 AM EST [facility] NRBC 0.0 <1.0 % LAB HEMETOLOGY METHOD 04/16/2024 11:12 AM EST [facility] NRBC Absolute 0.00 <0.10 K/mcL LAB HEMETOLOGY METHOD 04/16/2024 11:12 AM [facility] Blood Venous blood specimen / Unknown Venipuncture / Unknown 04/16/2024 7:33 AM EST 04/16/2024 10:20 AM EST us Matias Bowling MD LAB BLOOD ORDERABLES Final Resul t [facility] [address] [place] [address], documented in this encounter Visit Diagnoses Diagnosis Essential (primary) hypertension Unspecified essential hypertension documented in this encounter Additional Health Concerns Infection Onset Date Last Indicated Resolved Time Gastrointestinal Rule-Out 04/28/2024 04/27/2024 7:06 PM EDT C. difficile 05/29/2024 05/29/2024 C. Diff Rule-Out Infection 05/30/2024 05/29/2024 0 05/30/2024 9:47 AM EDT documented as of this encounter Care Teams Resident Care Director Relationship Specialty Start Date End Date Matias Bowling MD [address] [place] [phone] PCP - General Family Medicine 04/16/24 documented as of this encounter
--- OUTSIDE RECORDS SUMMARY | 2024-06-03 11:04 | XMS_ITS | Encounter Summary ---
Author Organization [facility] Address [address] [place] [address] Care Team Providers Care Sandwich Counter Attendant Name Role Phone Matias Bowling MD Primary Care Provider [phone] Encounter Details Date Type Department Care Team (Late st Contact Info) Description 04/30/[address] [facility] - Main Lab [address] [place] [address] Matias Bowling MD 38 [facility] 204 [place], [address] Essential (primary) hypertension Social History Tobacco [...] LAB CHEMISTRY METHOD 05/01/2024 12:26 PM EST [facility] Potassium 4.7 3.5 - 5.5 mmol/L LAB CHEMISTRY METHOD 05/01/2024 12:26 PM EST [facility] Chloride 110 96 - 110 mmol/L LAB CHEMISTRY METHOD 05/01/2024 12:26 PM [facility] CO2 21 21 - 32 mmol/L LAB CHEMISTRY METHOD 05/01/2024 12:26 PM [facility] Anion Gap 11 3 - 11 LAB CHEMISTRY METHOD 05/01/2024 12:26 PM [facility] Glucose 138(H) 70 - 100 mg/dL LAB CHEMISTRY METHOD 05/01/2024 12:26 PM [facility] BUN 18 5 - 25 mg/dL LAB CHEMISTRY METHOD 05/01/2024 12:26 PM [facility] Creatinine 1.07 0.50 - 1.10 mg/dL LAB CHEMISTRY METHOD 05/01/2024 12:26 PM [facility] eGFR 57(L) >=60 mL/min/1. 73m2 LAB CHEMISTRY METHOD 05/01/2024 12:26 PM [facility] Comment:Calculation based on the??Chronic Kidney Disease Epidemiology Collaboration (CKD-EPI) equation refit??without adjustment for race. BUN/Creatinine Ratio 16.8 LAB CHEMISTRY METHOD 05/01/2024 12:26 PM [facility] Calcium 9.3 8.5 - 10.5 mg/dL LAB CHEMISTRY METHOD 05/01/2024 12:26 PM [facility] Blood Venous blood specimen / Unknown Venipuncture / Unknown 05/01/2024 4:57 AM EST 05/01/2024 11:00 AM EST us Matias Bowling MD LAB BLOOD ORDERABLES Final Resul t [facility] [address] [place] [address], * (ABNORMAL) Complete blood count (05/01/2024 4:57 AM EST) WBC 9.9 4.8 - 10.8 K/mcL LAB HEMETOLOGY METHOD 05/01/2024 11:34 AM [facility] RBC 3.50(L) 3.80 - 4.80 M/mcL LAB HEMETOLOGY METHOD 05/01/2024 11:34 AM [facility] Hemoglobin 9.3(L) 11.5 - 16.0 g/dL LAB HEMETOLOGY METHOD 05/01/2024 11:34 AM [facility] Hematocrit 31.7(L) 35.0 - 47.0 % LAB HEMETOLOGY METHOD 05/01/2024 11:34 AM [facility] MCV 90.3 79.0 - 98.0 FL LAB HEMETOLOGY METHOD 05/01/2024 11:34 AM [facility] MCH 26.5(L) 27.0 - 32.0 pcg LAB HEMETOLOGY METHOD 05/01/2024 11:34 AM [facility] MCHC 29.3(L) 32.0 - 37.0 g/dL LAB HEMETOLOGY METHOD 05/01/2024 11:34 AM [facility] RDW 14.7 11.0 - 15.0 % LAB HEMETOLOGY METHOD 05/01/2024 11:34 AM [facility] Platelets 312 130 - 400 K/mcL LAB HEMETOLOGY METHOD 05/01/2024 11:34 AM [facility] MPV 10.3 7.0 - 11.0 FL LAB HEMETOLOGY METHOD 05/01/2024 11:34 AM [facility] NRBC 0.0 <1.0 % LAB HEMETOLOGY METHOD 05/01/2024 11:34 AM [facility] NRBC Absolute 0.00 <0.10 K/mcL LAB HEMETOLOGY METHOD 05/01/2024 11:34 AM [facility] Blood Venous blood specimen / Unknown Venipuncture / Unknown 05/01/2024 4:57 AM EST 05/01/2024 11:00 AM EST Matias Bowling MD LAB BLOOD ORDERABLES Final Resul t [facility] [address] [place] [address], documented in this encounter Visit Diagnoses Diagnosis Essential (primary) hypertension Unspecified essential hypertension documented in this encounter Additional Health Concerns Infection Onset Date Last Indicated Resolved Time Gastrointestinal Rule-Out 04/28/2024 04/27/2024 7:06 PM EDT C. difficile 05/29/2024 05/29/2024 C. Diff Rule-Out Infection 05/30/2024 05/29/2024 0 05/30/2024 9:47 AM EDT documented as of this encounter Care Teams Sandwich Counter Attendant Relationship Specialty Start Date End Date Matias Bowling MD [address] [place] [phone] PCP - General Family Medicine 04/16/24 documented as of this encounter
--- OUTSIDE RECORDS SUMMARY | 2024-06-03 11:04 | XMS_ITS | Encounter Summary ---
Author Organization [facility] Address [address] [place] [address] Care Team Providers Care Cheese Pancake Roller Name Role Phone Matias Bowling MD Primary Care Provider Encounter Details Date Type Department Care Team (Late st Contact Info) Description 04/29/[address] [facility] - Main Lab [address] [place] [address] Matias Bowling MD 38 [facility] [address] [place], [address] Hyperlipidemia, unspecified; 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 classified [...] LAB CHEMISTRY METHOD 04/29/2024 2:49 PM EST [facility] Potassium 4.5 3.5 - 5.5 mmol/L LAB CHEMISTRY METHOD 04/29/2024 2:49 PM [facility] Chloride 111(H) 96 - 110 mmol/L LAB CHEMISTRY METHOD 04/29/2024 2:49 PM [facility] CO2 23 21 - 32 mmol/L LAB CHEMISTRY METHOD 04/29/2024 2:49 PM [facility] Anion Gap 8 3 - 11 LAB CHEMISTRY METHOD 04/29/2024 2:49 PM [facility] Glucose 118(H) 70 - 100 mg/dL LAB CHEMISTRY METHOD 04/29/2024 2:49 PM [facility] BUN 18 5 - 25 mg/dL LAB CHEMISTRY METHOD 04/29/2024 2:49 PM [facility] LAB Creatinine 0.94 0.50 - 1.10 mg/dL LAB CHEMISTRY METHOD 04/29/2024 2:49 PM [facility] LAB eGFR 66 >=60 mL/min/1. 73m2 LAB CHEMISTRY METHOD 04/29/2024 2:49 PM [facility] LAB Comment:Calculation based on the??Chronic Kidney Disease Epidemiology Collaboration (CKD-EPI) equation refit??without adjustment for race. BUN/Creatinine Ratio 19.1 LAB CHEMISTRY METHOD 04/29/2024 2:49 PM [facility] Calcium 9.2 8.5 - 10.5 mg/dL LAB CHEMISTRY METHOD 04/29/2024 2:49 PM [facility] LAB AST (SGOT) 21 10 - 42 unit/L LAB CHEMISTRY METHOD 04/29/2024 2:49 PM [facility] ALT (SGPT) 24 10 - 60 unit/L LAB CHEMISTRY METHOD 04/29/2024 2:49 PM [facility] Alkaline Phosphatase 170(H) 42 - 121 unit/L LAB CHEMISTRY METHOD 04/29/2024 2:49 PM [facility] Total Protein 6.9 6.0 - 8.0 g/dL LAB CHEMISTRY METHOD 04/29/2024 2:49 PM [facility] Albumin 3.2 3.2 - 5.0 g/dL LAB CHEMISTRY METHOD 04/29/2024 2:49 PM [facility] Total Bilirubin 0.3 0.0 - 1.4 mg/dL LAB CHEMISTRY METHOD 04/29/2024 2:49 PM [facility] Blood Venous blood specimen / Unknown Venipuncture / Unknown 04/29/2024 6:35 AM EST 04/29/2024 10:01 AM EST us Matias Bowling MD LAB BLOOD ORDERABLES Final Resul t [facility] [address] [place] [address], [place] [phone] * (ABNORMAL) Complete blood count (04/29/2024 6:35 AM EST) WBC 9.6 4.8 - 10.8 K/mcL LAB HEMETOLOGY METHOD 04/29/2024 11:28 AM [facility] RBC 3.70(L) 3.80 - 4.80 M/mcL LAB HEMETOLOGY METHOD 04/29/2024 11:28 AM [facility] Hemoglobin 9.9(L) 11.5 - 16.0 g/dL LAB HEMETOLOGY METHOD 04/29/2024 11:28 AM [facility] Hematocrit 32.0(L) 35.0 - 47.0 % LAB HEMETOLOGY METHOD 04/29/2024 11:28 AM [facility] MCV 87.0 79.0 - 98.0 FL LAB HEMETOLOGY METHOD 04/29/2024 11:28 AM [facility] MCH 26.9(L) 27.0 - 32.0 pcg LAB HEMETOLOGY METHOD 04/29/2024 11:28 AM [facility] MCHC 30.9(L) 32.0 - 37.0 g/dL LAB HEMETOLOGY METHOD 04/29/2024 11:28 AM [facility] RDW 14.6 11.0 - 15.0 % LAB HEMETOLOGY METHOD 04/29/2024 11:28 AM [facility] Platelets 358 130 - 400 K/mcL LAB HEMETOLOGY METHOD 04/29/2024 11:28 AM [facility] MPV 10.0 7.0 - 11.0 FL LAB HEMETOLOGY METHOD 04/29/2024 11:28 AM [facility] NRBC 0.0 <1.0 % LAB HEMETOLOGY METHOD 04/29/2024 11:28 AM [facility] NRBC Absolute 0.00 <0.10 K/mcL LAB HEMETOLOGY METHOD 04/29/2024 11:28 AM [facility] Blood Venous blood specimen / Unknown Venipuncture / Unknown 04/29/2024 6:35 AM EST 04/29/2024 10:01 AM EST Matias Bowling MD LAB BLOOD ORDERABLES Final Resul t [facility] [address] [place] [address], documented in this encounter Visit Diagnoses Diagnosis Hyperlipidemia, unspecified 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 classified elsewhere (CMS/HCC) documented in this encounter Additional Health Concerns Infection Onset Date Last Indicated Resolved Time Gastrointestinal Rule-Out 04/28/2024 04/27/2024 7:06 PM EDT C. difficile 05/29/2024 05/29/2024 C. Diff Rule-Out Infection 05/30/2024 05/29/2024 0 05/30/2024 9:47 AM EDT documented as of this encounter Care Teams Cheese Pancake Roller Relationship Specialty Start Date End Date Matias Bowling MD [address] [address] PCP - General Family Medicine 04/16/24 documented as of this encounter
== END 2024-06-03 10:46 | disposition home or self-care (01) ==
LOC: HO.HOS 09:57
PROVIDERS: Visit Provider Physician Assistant
DX: M97.12XA Periprosthetic fracture around internal prosthetic left knee joint, initial encounter (principal)
CPT/HCPCS: 99024

== ENCOUNTER → 2024-06-03 10:01 | Outpatient (BNV) | payer OTHER, SELFPAY | PROVIDERS: Visit Provider Radiology Diagnostic Radiology | DX: M79.605 Pain in left leg (principal) | CPT/HCPCS: 73552 ==

== ENCOUNTER 2024-06-30 10:07 | Outpatient (REF) | payer OTHER, SELFPAY ==
[2024-06-30 11:20] LABS: MANUAL DIFF FLAG NO
[2024-06-30 11:22] LABS: Basophils Absolute Auto 0.1 X10*3/uL (0.0-0.2); Basophils Percent Auto 0.4 % (0-2); Eosinophils Absolute Auto 0.1 X10*3/uL (0.0-0.4); Eosinophils Percent Auto 1.2 % (0-4); Hematocrit 33.8 % (37.0-47.0); Hemoglobin 10.5 g/dl (12.0-16.0); Imm Gran Abs Auto 0.08 X10*3/uL (0.00-0.03); Imm Gran Pct Auto 0.7 % (0.0-0.4); Lymphocytes Absolute Auto 3.3 X10*3/uL (1.2-4.9); Lymphocytes Percent Auto 27.8 % (20-40); Mean Corpuscular HGB Conc 31.1 g/dl (31.0-35.0); Mean Corpuscular Hemoglobin 25.5 pg (27.0-33.0); Mean Platelet Volume 9.7 fL (9.4-12.3); Monocytes Absolute Auto 0.6 X10*3/uL (0.1-1.2); Monocytes Percent Auto 5.2 % (2-11); Neutrophils Absolute Auto 7.7 x10*3/uL (2.0-8.3); Neutrophils Percent Auto 64.7 % (45-73); Platelet Count 353 X10*3/uL (160-400); Red Blood Count 4.12 X10*6/uL (4.20-5.50); Red Cell Distribution Width 14.8 % (11.0-16.0); White Blood Count 11.9 X10*3/uL (4.8-10.8)
[2024-06-30 11:32] LABS: Estimated Average Glucose 169 mg/dL; Hemoglobin A1C 162.5717 umol/L; Hemoglobin A1c % 7.5 % (<6.0); Total Hemoglobin (HGBA1C) 2781.2845 umol/L
--- OUTSIDE RECORDS SUMMARY | 2024-06-30 11:34 | XMS_ITS | Encounter Summary ---
Author Organization [employer] Address 75 [facility] 7t [place] [address] Care Team Providers Care Screwhead Polisher Name Role Phone Ethel Chase DO Primary Care Provider +[phone] Vaishnavi Laird PharmD Unavailable [phone] Reason for Visit * Reason Onset Date Comments Hospital Follow-up 06/05/2024 Encounter Details Date Type Department Care Team ([facility] st Contact Info) Description 06/05/2024 Telephone [facility] MED[facility]INE [address] [place] [address] Ethel Chase DO [address] [place] [address] Hospital Follow-up Social History Tobacco Use Types Packs/Day Years [...] * Telephone Encounter - Matias Crowell - 06/05/2024 2:02 PM EDT Tc from pt requesting a HDF appt. Hospital: [facility] Date of admission: 06/04/24 Discharge date: 04/15/24 Diagnosed: Knee replacement and fall after *Can call pt directly documented in this encounter Plan of Treatment Not on file documented as of this encounter Goals Goal Patient Goal Type Associated Problems Recent Progress Patient-Stated? Author Hemoglobin A1c < 7 Result Component 7.5( 10:10 AM EDT) No Puia, Vaishnavi, PharmD Record your blood sugar as directed Result Component No Puia, Vaishnavi, PharmD documented as of this encounter Visit Diagnoses Not on filedocumented in this encounter Additional Health Concerns Assessment Noted Time PHQ-9 Depression Total Score: 8 10/18/19 24 11:35 AM EDT documented as of this encounter Care Teams Screwhead Polisher Relationship Specialty Start Date End Date Ethel Chase DO [address] [place] [address] PCP - General Family Medicine 10/12/13 Vaishnavi Laird, Zana [address] [place] [address] Pharmacist Internal Medicine 02/07/23 [id number] 06/11/24 documented as of this encounter
--- OUTSIDE RECORDS SUMMARY | 2024-06-30 11:34 | XMS_ITS | Encounter Summary ---
Author Organization [employer] Address [address] [place] [address] 7t [place] [address] Care Team Providers Care Nut Sorter Operator Name Role Phone Ethel Chase DO Primary Care Provider Vaishnavi Laird PharmD Unavailable Reason for Visit * Reason Comments Med Refill Encounter Details Date Type Department Care Team (Late st Contact Info) Description 06/07/2022 Refill [facility] MEDICINE [address] [place] [address] Ethel Chase DO [address] [place] [address] Other chronic pain Social History Tobacco Use [...] documented as of this encounter Care Teams Nut Sorter Operator Relationship Specialty Start Date End Date Ethel Chase DO [address] [place] [address] PCP - General Family Medicine 10/12/13 Vaishnavi Laird PharmD [address] [place] [address] Pharmacist Internal Medicine 02/07/23 [id number] 06/11/24 documented as of this encounter
--- OUTSIDE RECORDS SUMMARY | 2024-06-30 11:34 | XMS_ITS | Encounter Summary ---
Author Organization [employer] Address 75 [facility] 7t [place] [address] Care Team Providers Care Entry Level Mechanical Engineer Name Role Phone Ethel Chase DO Primary Care Provider [phone]- [phone] Vaishnavi Laird PharmD Unavailable [phone] Encounter Details Date Type Department Care Team (Late st Contact Info) Description 06/30/2024 9:15 AM EDT Office Visit [facility] MEDICINE [address] [place] [address] Ethel Chase DO [address] [place] [address] S/P total knee arthroplasty, left (Primary Dx); Closed fracture of distal end of left femur, unspecified fracture morphology, initial encounter ([facility]); C. difficile colitis; Type 2 diabetes mellitus without complication, without long-term current use of insulin ([facility]); Essential hypertension Social History Tobacco Use Types Packs/Day [...] AM EDT documented as of this encounter Last Filed Vital Signs Vital Sign Reading Time Taken Comments Blood Pressure 120/80 06/30/2024 9:04 AM EDT Pulse 80 06/30/2024 9:04 AM EDT Temperature 37.1 ??C (98.7 ??F) 06/30/2024 9:04 AM ED T Respiratory Rate 18 06/30/2024 9:04 AM EDT Oxygen Saturation - - Inhaled Oxygen Concentration - - Weight - - Height 159.8 cm (5' 2.93 ) 06/30/2024 9:04 AM ED T Body Mass Index - - documented in this encounter Plan of Treatment Scheduled Orders Name Type Priority Associated Diagnoses Orde r Schedule T4, Free Lab Routine S/P total knee arthroplasty, left Closed fracture of distal end of left femur, unspecified fracture morphology, initial encounter ([facility]) C. difficile colitis Type 2 diabetes mellitus without complication, without long-term current use of insulin ([facility]) Essential hypertension Expected: 06/30/2024 (Approximate), Expires: 06/30/2025 Lipid Panel, Standard Lab Routine S/P total knee arthroplasty, left Closed fracture of distal end of left femur, unspecified fracture morphology, initial encounter ([facility]) C. difficile colitis Type 2 diabetes mellitus without complication, without long-term current use of insulin ([facility]) Essential hypertension Expected: 06/30/2024 (Approximate), Expires: 06/30/2025 TSH Lab Routine S/P total knee arthroplasty, left Closed fracture of distal end of left femur, unspecified fracture morphology, initial encounter ([facility]) C. difficile colitis Type 2 diabetes mellitus without complication, without long-term current use of insulin ([facility]) Essential hypertension Expected: 06/30/2024 (Approximate), Expires: 06/30/2025 Vitamin D, 25-Hydroxy, Total, Immunoassay Lab Routine S/P total knee arthroplasty, left Closed fracture of distal end of left femur, unspecified fracture morphology, initial encounter ([facility]) C. difficile colitis Type 2 diabetes mellitus without complication, without long-term current use of insulin ([facility]) Essential hypertension Expected: 06/30/2024 (Approximate), Expires: 06/30/2025 Hepatic Function Panel Lab Routine S/P total knee arthroplasty, left Closed fracture of distal end of left femur, unspecified fracture morphology, initial encounter ([facility]) C. difficile colitis Type 2 diabetes mellitus without complication, without long-term current use of insulin ([facility]) Essential hypertension Expected: 06/30/2024 (Approximate), Expires: 06/30/2025 Basic Metabolic Panel Lab Routine S/P total knee arthroplasty, left Closed fracture of distal end of left femur, unspecified fracture morphology, initial encounter ([facility]) C. difficile colitis Type 2 diabetes mellitus without complication, without long-term current use of insulin ([facility]) Essential hypertension Expected: 06/30/2024 (Approximate), Expires: 06/30/2025 Vitamin B12 (Cobalamin) and Folate Panel, Serum Lab Routine S/P total knee arthroplasty, left Closed fracture of distal end of left femur, unspecified fracture morphology, initial encounter ([facility]) C. difficile colitis Type 2 diabetes mellitus without complication, without long-term current use of insulin ([facility]) Essential hypertension Expected: 06/30/2024, Expires: 06/30/2025 Ferritin Lab Routine S/P total knee arthroplasty, left Closed fracture of distal end of left femur, unspecified fracture morphology, initial encounter ([facility]) C. difficile colitis Type 2 diabetes mellitus without complication, without long-term current use of insulin ([facility]) Essential hypertension Expected: 06/30/2024, Expires: 06/30/2025 Iron And Total Iron Binding Capacity Lab Routine S/P total knee arthroplasty, left Closed fracture of distal end of left femur, unspecified fracture morphology, initial encounter ([facility]) C. difficile colitis Type 2 diabetes mellitus without complication, without long-term current use of insulin ([facility]) Essential hypertension Expected: 06/30/2024, Expires: 06/30/2025 documented as of this encounter Goals Goal Patient Goal Type Associated Problems Recent Progress Patient-Stated? Author Hemoglobin A1c < 7 Result Component 7.5( 10:10 AM EDT) No Vaishnavi Laird, PharmRina Record your blood sugar as directed Result Component No Vaishnavi Laird PharmD documented as of this encounter Procedures Procedure Name Priority Date/Time Associated Diagnosis Comments CBC WITH AUTO DIFFERENTIAL Routine 06/30/2024 10:10 AM EDT S/P total knee arthroplasty, left Closed fracture of distal end of left femur, unspecified fracture morphology, initial encounter ([facility]) C. difficile colitis Type 2 diabetes mellitus without complication, without long-term current use of insulin ([facility]) Essential hypertension HEMOGLOBIN A1C Routine 06/30/2024 10:10 AM EDT S/P total knee arthroplasty, left Closed fracture of distal end of left femur, unspecified fracture morphology, initial encounter ([facility]) C. difficile colitis Type 2 diabetes mellitus without complication, without long-term current use of insulin ([facility]) Essential hypertension POCT GLUCOSE Routine 06/30/2024 9:09 AM EDT Type 2 diabetes mellitus without complication, without long-term current use of insulin ([facility]) POCT GLYCOSYLATED HEMOGLOBIN (HGB A1C) Routine 06/30/2024 9:08 AM EDT Type 2 diabetes mellitus without complication, without long-term current use of insulin ([facility]) documented in this encounter Results * (ABNORMAL) CBC auto differential (06/30/2024 10:10 AM EDT) Neutrophils Percent Auto 64.7 45 - 73 % [facility] Imm Gran Pct Auto 0.7(H) 0.0 - 0.4 % [facility] Lymphocytes Percent Auto 27.8 20 - 40 % [facility] Monocytes Percent Auto 5.2 2 - 11 % [facility] Eosinophils Percent Auto 1.2 0 - 4 % [facility] Basophils Percent Auto 0.4 0 - 2 % [facility] Neutrophils Absolute Auto 7.7 2.0 - 8.3 x10*3/uL [facility] Imm Gran Abs Auto 0.08(H) 0.00 - 0.03 X10*3/uL [facility] Lymphocytes Absolute Auto 3.3 1.2 - 4.9 X10*3/uL [facility] Monocytes Absolute Auto 0.6 0.1 - 1.2 X10*3/uL [facility] Eosinophils Absolute Auto 0.1 0.0 - 0.4 X10*3/uL [facility] Basophils Absolute Auto 0.1 0.0 - 0.2 X10*3/uL [facility] Blood Venous blood specimen / Unknown 06/30/2024 10:10 AM EDT 06/30/2024 11:16 AM EDT Ethel Chase DO LAB BLOOD ORDERABLES Final R esult [facility] [address] [place] [phone] * (ABNORMAL) Hemoglobin A1c (06/30/2024 10:10 AM EDT) Hemoglobin A1c 7.5(H) <6.0 % [facility] Comment:Hemoglobin A1C Refer ence Range Adults: 4.8 - 6.0 % Non diabetic: < 6.0 % Goal: < 7.0 %Additional Action Suggested: > 8.0 %Note: Hemoglobin A1c results are invalid for patients with abnormal amounts of HbF. Blood transfusions may impact the HbA1c concentration in the patient sample. Estimated Average Glucose 169 mg/dL [facility] Comment:eAG = Estimated ave rage glucose which is %A1C expressed asaverage glucose, using the formula of the X5H-LyadxunDnhvltc Glucose study (ADAG), Diabetes Care, Vol.31,#8,Sep. 2007 Blood Venous blood specimen / Unknown 06/30/2024 10:10 AM EDT 06/30/2024 11:16 AM EDT Ethel Cahse DO LAB BLOOD ORDERABLES Final R esult [facility] [address] [place] [address] [phone] * POCT glucose manually resulted (06/30/2024 9:09 AM EDT) Glucose Blood, POC 194 60 - 200 mg/dL Comment:RANDOM QC Media Lot # [id number] Lot# Expiration Date Blood Capillary blood specimen / Unknown 06/30/2024 9:09 AM EDT Ethel Chase DO POINT OF CARE TEST ENTER/MARGARITA T ORDERABLES Final Result * (ABNORMAL) POCT glycosylated hemoglobin (Hgb A1c) (06/30/2024 9:08 AM EDT) Hemoglobin A1C 7.7(A) 4.0 - 6.0 % QC Media Lot # [id number] Lot# Expiration Date Blood Capillary blood specimen / Unknown 06/30/2024 9:08 AM EDT Ethel Salvatore CORBIN POINT OF CARE TEST ENTER/MARGARITA T ORDERABLES Final Result documented in this encounter Visit Diagnoses Diagnosis S/P total knee arthroplasty, left- Primary Closed fracture of distal end of left femur, unspecified fracture morphology, initial encounter ([facility]) C. difficile colitis Type 2 diabetes mellitus without complication, without long-term current use of insulin ([facility]) Essential hypertension Unspecified essential hypertension documented in this encounter Additional Health Concerns Assessment Noted Time PHQ-9 Depression Total Score: 8 10/18/19 24 11:35 AM EDT documented as of this encounter Care Teams Entry Level Mechanical Engineer Relationship Specialty Start Date End Date Ethel Chase DO [address] [place] [address] PCP - General Family Medicine 10/12/13 Vaishnavi Laird PharmD [address] [place] [address] Pharmacist Internal Medicine 02/07/23 [id number] 06/11/24 documented as of this encounter
--- OUTSIDE RECORDS SUMMARY | 2024-06-30 11:34 | XMS_ITS | Encounter Summary ---
Author Organization [employer] Address [address] [place] [address] 7t [place] [address] Care Team Providers Care Children'S Institution Attendant Name Role Phone Ethel Chase DO Primary Care Provider +1- [phone] Vaishnavi Laird PharmD Unavailable [phone] Reason for Visit * Reason Comments Med Refill Encounter Details Date Type Department Care Team (Late st Contact Info) Description 08/10/2022 Refill [facility] MEDICINE [address] [place] [address] [facility] [address] [place] [address] Social History Tobacco Use Types Packs/Day Years [...] documented as of this encounter Care Teams Children'S Institution Attendant Relationship Specialty Start Date End Date Ethel Chase DO [address] [place] [address] PCP - General Family Medicine 10/12/13 Vaishnavi Laird PharmD [address] [place] [address] Pharmacist Internal Medicine 02/07/23 [id number] 06/11/24 documented as of this encounter
--- OUTSIDE RECORDS SUMMARY | 2024-06-30 11:34 | XMS_ITS | Encounter Summary ---
Author Organization [employer] Address [address] [place] [address] 7t [place] [address] Care Team Providers Care Cardiac Cath Tech Name Role Phone Ethel Chase DO Primary Care Provider [phone]- [phone] Vaishnavi Laird PharmD Unavailable [phone] Reason for Visit * Reason Comments Med Refill Encounter Details Date Type Department Care Team (Late st Contact Info) Description 04/06/[address] [facility] MEDICINE [address] [place] [address] Ethel Chase DO [address] [place] [address] Other chronic pain Social History Tobacco Use [...] documented as of this encounter Care Teams Cardiac Cath Tech Relationship Specialty Start Date End Date Ethel Chase DO [address] [place] [address] PCP - General Family Medicine 10/12/13 Vaishnavi Laird PharmD [address] [place] [address] Pharmacist Internal Medicine 02/07/23 [id number] 06/11/24 documented as of this encounter
--- OUTSIDE RECORDS SUMMARY | 2024-06-30 11:34 | XMS_ITS | Encounter Summary ---
Author Organization [employer] Address 75 [facility] 7t [place] [address] Care Team Providers Care Propagation Manager Name Role Phone Ethel Chase DO Primary Care Provider [phone]- [phone] Vaishnavi Laird PharmD Unavailable [phone] Reason for Visit * Reason Comments Med Refill Encounter Details Date Type Department Care Team (Late st Contact Info) Description 06/25/2024 Refill [facility] MEDICINE [address] [place] [address] Ethel Chase DO [address] [place], [place] [phone] Social History Tobacco Use Types Packs/Day Years [...] documented as of this encounter Care Teams Propagation Manager Relationship Specialty Start Date End Date Ethel Chase DO [address] [place] [address] PCP - General Family Medicine 10/12/13 Twilaia, Vaishnavi, PharmD [address] [place] [address] Pharmacist Internal Medicine 02/07/23 [id number] 06/11/24 documented as of this encounter
--- OUTSIDE RECORDS SUMMARY | 2024-06-30 11:34 | XMS_ITS | Encounter Summary ---
Author Organization [employer] Address [address] [facility] 7t [place] [address] Care Team Providers Care Legal Billing Clerk Name Role Phone Ethel Chase DO Primary Care Provider +1- [phone] Vaishnavi Laird PharmD Unavailable [phone] Reason for Visit * Reason Onset Date Comments Hospital Follow-up 06/08/2024 Encounter Details Date Type Department Care Team ([facility] st Contact Info) Description 06/08/2024 Telephone [facility] MED[facility]INE [address] [place] [address] Ethel Chase DO [address] [place] [address] Hospital Follow-up Social History Tobacco Use Types [...] encounter Miscellaneous Notes * Telephone Encounter - Cong Conte - 06/08/2024 10:33 AM EDT Tc from pt requesting a HDF appt. [facility] [facility] Date of admission: 04/10 to [facility] and 04[facility]15 admitted into [facility] Discharge date: 06/04/24 Diagnosed: Left leg fracture post simpson *Send message to [place] [facility] Contact pt at [phone] documented in this encounter Plan of Treatment [...] documented as of this encounter Care Teams Legal Billing Clerk Relationship Specialty Start Date End Date Ethel Chase DO [address] [place] [address] PCP - General Family Medicine 10/12/13 Vaishnavi Laird, Zana [address] [place] [address] [phone] Pharmacist Internal Medicine 02/07/23 [id number] 06/11/24 documented as of this encounter
--- OUTSIDE RECORDS SUMMARY | 2024-06-30 11:34 | XMS_ITS | Encounter Summary ---
Author Organization [employer] Address 75 [facility] 7t [place] [address] Care Team Providers Care Remanufacturing Technician Name Role Phone Ethel Chase DO Primary Care Provider +1- [phone] Vaishnavi Laird PharmD Unavailable [phone] Reason for Visit * Reason Onset Date Comments Pre op 01/27/2024 Encounter Details Date Type Department Care Team (Late st Contact Info) Description 01/27/2024 Telephone [facility] MEDICINE [address] [place] [address] Ethel Chase DO [address] [place], [place] [phone] Pre op Social History Tobacco Use Types [...] is your housing situation today? I have pérezjuly turcios 01/15/[address] you [...] op on 02/14/24 at 02:15PM. Sujata at [facility] stated she will be contacting pt to provide appointment details. Reminder letter sent via mail Date of Surgery: 03/24/24 Surgical procedure being done: left knee revision surgery Type of anesthesia: general anesthesia with block Lab needed: Yes include A1c EKG: Yes Surgeon's name: Dr Oro Facility name: [facility] Orthopedic Surgeon's office number: [phone] Surgeon's office fax number: [phone] Contact name (person you spoke with): Sujata [...] documented as of this encounter Care Teams Remanufacturing Technician Relationship Specialty Start Date End Date Ethel Chase DO [address] [place] [address] PCP - General Family Medicine 10/12/13 Vaishnavi Laird PharmD [address] [place] [address] Pharmacist Internal Medicine 02/07/23 [id number] 06/11/24 documented as of this encounter
--- OUTSIDE RECORDS SUMMARY | 2024-06-30 11:34 | XMS_ITS | Encounter Summary ---
Author Organization [employer] Address [address] [place] [address] 7t [place] [address] Care Team Providers Care Blade Grinder Name Role Phone Ethel Chase DO Primary Care Provider Vaishnavi Laird PharmD Unavailable [phone] Reason for Visit * Reason Comments Med Refill Encounter Details Date Type Department Care Team (Late st Contact Info) Description 06/06/2022 Refill [facility] MEDICINE [address] [place] [address] Ethel Chase DO [address] [place] [address] Other chronic pain Social History Tobacco Use [...] documented as of this encounter Care Teams Blade Grinder Relationship Specialty Start Date End Date Ethel Chase DO [address] [place] [address] PCP - General Family Medicine 10/12/13 Vaishnavi Laird PharmD [address] [place] [address] Pharmacist Internal Medicine 02/07/23 [id number] 06/11/24 documented as of this encounter
--- OUTSIDE RECORDS SUMMARY | 2024-06-30 11:34 | XMS_ITS | Encounter Summary ---
Author Organization [employer] Address 75 [facility] 7t [place] [address] Care Team Providers Care Speech And Language Specialist Name Role Phone Ethel Chase Primary Care Provider + [phone] Vaishnavi Laird PharmD Unavailable [phone] Encounter Details Date Type Department Care Team (Latest Contact Info) Description 06/30/2024 Travel Social History Tobacco Use Types Packs/Day Years [...] 7.5( 10:10 AM EDT) No Vaishnavi Laird, PharmD Record your blood sugar as directed Result Component No Vaishnavi Laird, PharmD documented as of this encounter Visit Diagnoses Not on filedocumented in this encounter Additional Health Concerns Assessment Noted Time PHQ-9 Depression Total Score: 8 10/18/19 24 11:35 AM EDT documented as of this encounter Care Teams Speech And Language Specialist Relationship Specialty Start Date End Date Ethel Chase DO [address] [place] [address] PCP - General Family Medicine 10/12/13 Vaishnavi Laird, PharmD [address] [place] [address] Pharmacist Internal Medicine 02/07/23 [id number] 06/11/24 documented as of this encounter
--- OUTSIDE RECORDS SUMMARY | 2024-06-30 11:34 | XMS_ITS | Encounter Summary ---
Author Organization [facility] Address [address] [place] [address] Care Team Providers Care Tire Mounter Name Role Phone Matias Bowling MD Primary Care Provider [phone] Encounter Details Date Type Department Care Team (Late st Contact Info) Description 05/06/2024 Lab Requisition [facility] [address] [place] [address] Matias Bowling MD [address] [facility] [address] [place], [address] Essential (primary) hypertension Social History Tobacco [...] LAB CHEMISTRY METHOD 05/07/2024 10:37 AM EDT [facility] Potassium 4.9 3.5 - 5.5 mmol/L LAB CHEMISTRY METHOD 05/07/2024 10:37 AM EDT [facility] Chloride 111(H) 96 - 110 mmol/L LAB CHEMISTRY METHOD 05/07/2024 10:37 AM [facility] CO2 22 21 - 32 mmol/L LAB CHEMISTRY METHOD 05/07/2024 10:37 AM [facility] Anion Gap 8 3 - 11 LAB CHEMISTRY METHOD 05/07/2024 10:37 AM [facility] Glucose 121(H) 70 - 100 mg/dL LAB CHEMISTRY METHOD 05/07/2024 10:37 AM [facility] BUN 15 5 - 25 mg/dL LAB CHEMISTRY METHOD 05/07/2024 10:37 AM [facility] Creatinine 1.02 0.50 - 1.10 mg/dL LAB CHEMISTRY METHOD 05/07/2024 10:37 AM [facility] eGFR 60 >=60 mL/min/1. 73m2 LAB CHEMISTRY METHOD 05/07/2024 10:37 AM [facility] Comment:Calculation based on the??Chronic Kidney Disease Epidemiology Collaboration (CKD-EPI) equation refit??without adjustment for race. BUN/Creatinine Ratio 14.7 LAB CHEMISTRY METHOD 05/07/2024 10:37 AM [facility] Calcium 9.1 8.5 - 10.5 mg/dL LAB CHEMISTRY METHOD 05/07/2024 10:37 AM [facility] AST (SGOT) 15 10 - 42 unit/L LAB CHEMISTRY METHOD 05/07/2024 10:37 AM [facility] ALT (SGPT) 20 10 - 60 unit/L LAB CHEMISTRY METHOD 05/07/2024 10:37 AM [facility] Alkaline Phosphatase 161(H) 42 - 121 unit/L LAB CHEMISTRY METHOD 05/07/2024 10:37 AM [facility] Total Protein 6.4 6.0 - 8.0 g/dL LAB CHEMISTRY METHOD 05/07/2024 10:37 AM [facility] Albumin 3.1(L) 3.2 - 5.0 g/dL LAB CHEMISTRY METHOD 05/07/2024 10:37 AM EDT [facility] Total Bilirubin 0.2 0.0 - 1.4 mg/dL LAB CHEMISTRY METHOD 05/07/2024 10:37 AM [facility] Blood Venous blood specimen / Unknown Venipuncture / Unknown 05/07/2024 5:12 AM EDT 05/07/2024 8:53 AM EDT us Matias Bowling MD LAB BLOOD ORDERABLES Final Resul t [facility] [address] [place] [address], [place] [phone] * (ABNORMAL) Complete blood count (05/07/2024 5:12 AM EDT) WBC 9.6 4.8 - 10.8 K/mcL LAB HEMETOLOGY METHOD 05/07/2024 10:09 AM [facility] RBC 3.60(L) 3.80 - 4.80 M/mcL LAB HEMETOLOGY METHOD 05/07/2024 10:09 AM [facility] Hemoglobin 9.4(L) 11.5 - 16.0 g/dL LAB HEMETOLOGY METHOD 05/07/2024 10:09 AM [facility] Hematocrit 31.5(L) 35.0 - 47.0 % LAB HEMETOLOGY METHOD 05/07/2024 10:09 AM [facility] MCV 88.2 79.0 - 98.0 FL LAB HEMETOLOGY METHOD 05/07/2024 10:09 AM [facility] MCH 26.3(L) 27.0 - 32.0 pcg LAB HEMETOLOGY METHOD 05/07/2024 10:09 AM [facility] MCHC 29.8(L) 32.0 - 37.0 g/dL LAB HEMETOLOGY METHOD 05/07/2024 10:09 AM EDT [facility] RDW 14.6 11.0 - 15.0 % LAB HEMETOLOGY METHOD 05/07/2024 10:09 AM EDT [facility] Platelets 303 130 - 400 K/mcL LAB HEMETOLOGY METHOD 05/07/2024 10:09 AM EDT [facility] MPV 10.1 7.0 - 11.0 FL LAB HEMETOLOGY METHOD 05/07/2024 10:09 AM EDT [facility] NRBC 0.0 <1.0 % LAB HEMETOLOGY METHOD 05/07/2024 10:09 AM EDT [facility] NRBC Absolute 0.00 <0.10 K/mcL LAB HEMETOLOGY METHOD 05/07/2024 10:09 AM EDT [facility] Blood Venous blood specimen / Unknown Venipuncture / Unknown 05/07/2024 5:12 AM EDT 05/07/2024 8:53 AM EDT us Matias Bowling MD LAB BLOOD ORDERABLES Final Resul t [facility] [address] [place] [address], documented in this encounter Visit Diagnoses Diagnosis Essential (primary) hypertension Unspecified essential hypertension documented in this encounter Additional Health Concerns Infection Onset Date Last Indicated Resolved Time Gastrointestinal Rule-Out 04/28/2024 04/27/2024 7:06 PM EDT C. difficile 05/29/2024 05/29/2024 06/22/2024 7:04 PM EDT C. Diff Rule-Out Infection 05/30/2024 05/29/2024 0 05/30/2024 9:47 AM EDT documented as of this encounter Care Teams Tire Mounter Relationship Specialty Start Date End Date Matias Bowling MD [address] [place] [address] PCP - General Family Medicine 04/16/24 documented as of this encounter
--- OUTSIDE RECORDS SUMMARY | 2024-06-30 11:34 | XMS_ITS | Encounter Summary ---
Author Organization [facility] [employer] Address [address] [place] [address] [address] [place] [address] Care Team Providers Care Scrap Crusher Name Role Phone Ethel Chase DO Primary Care Provider [phone] Vaishnavi Laird PharmD Unavailable [phone] Reason for Visit * Reason Onset Date Comments Durable Medical Equipment 06/05/2024 [facility] DM E Request: Hospital Bed Encounter Details Date Type Department Care Team (Late st Contact Info) Description 06/05/[address] [facility] [address] [place] [address] Ethel Chase DO [address] [place] [address] Durable Medical Equipment ([facility] DME Request: Hospital Bed) Social History Tobacco Use Types Packs/Day Years [...] encounter Miscellaneous Notes * Telephone Encounter - Damaris Wylie - 06/11/2024 3:09 PM EDT Please advise if you would like order generated. * Telephone Encounter - Matias Crowell - 06/05/2024 1:59 PM EDT TC from [facility] with [facility] requesting a hospital bed due knee replacement and fall right after. Pt recently discharged from rehab . Submit quest through [facility] documented in this encounter Plan of Treatment [...] documented as of this encounter Care Teams Scrap Crusher Relationship Specialty Start Date End Date Ethel Chase DO [address] [place] [address] PCP - General Family Medicine 10/12/13 Vaishnavi Laird PharmD [address] [place] [address] Pharmacist Internal Medicine 02/07/23 [email or web address] 06/11/24 documented as of this encounter
--- OUTSIDE RECORDS SUMMARY | 2024-06-30 11:34 | XMS_ITS | Clinical Summary ---
Author Organization [employer] Address [address] [facility] [address] [place] [address] Care Team Providers Care Gps Field Data Collector Name Role Phone Ethel Chase Primary Care Provider [phone] Vaishnavi Laird PharmD Unavailable [phone] Allergies Active Allergy Reactions Criticality Noted Date Comments Iodinated Contrast Media Unknown High 02/21/2010 Other Reaction(s): itching, hives Morphine Unknown High 02/21/2010 Other Reaction(s): ITCHING, rash Nsaids Unknown 02/21/2010 Tramadol Rash High 10/18/2023 Medications naloxone (Narcan) 4 mg/0.1 mL [...] (Xalatan) 0.005 % ophthalmic solution 023 Active metoprolol succinate XL (Toprol-XL) 25 [...] MOUTH TWICE A DAY NEEDED FOR ANXEITY Active metFORMIN (Glucophage) 500 MG tablet TAKE 1 TABLET BY MOUTH TWICE DAILY IN THE MORNING AND IN THE EVENING WITH MEALS 60 tablet 024 Active levothyroxine (Synthroid, Levoxyl) 112 MCG tablet TAKE 1 TABLET BY MOUTH EVERY MORNING BEFORE BREAKFAST 90 tablet 3 Active fluticasone-salmet sari (Advair) 115-21 MCG/ACT inhaler Inhale 2 puffs in the morning and at bedtime. Rinse mouth with water after use to reduce aftertaste and incidence of candidiasis. Do not swallow. 12 g 024 2024 Active OneTouch Delica Lancets 33G miscIndications:Ty pe 2 diabetes mellitus without complication, without long-term current use of insulin (CMS/HCC) USE TO TEST BLOOD SUGAR TWICE DAILY 100 each Active Ventolin HFA 108 (90 Base) MCG/ACT inhaler INHALE 2 PUFFS BY MOUTH EVERY 4 HOURS NEEDED FOR WHEEZING OR SHORTNESS OF BREATH 18 g 1 Active glucagon (Baqsimi Two Pack) 3 [...] 2 Sensor) miscIndications:Po mabel controlled diabetes mellitus ([facility]/HCC) USE DIRECTED CHANGE EVERY 14 DAYS 2 each Active Additional Information Patient not taking.Reported on 06/16/2024 baclofen (Lioresal) 10 MG tablet Take 1 tablet (10 mg) by mouth if needed in the morning, at noon, and at bedtime for muscle spasms. 60 tablet 3 024 2024 Active Diclofenac Sodium 1 % gel Apply 2 g topically if needed in the morning, at noon, in the evening, and at bedtime (pain). 150 g 3 Active Calcium Carb-Cholecalcifer ol (Oyster Shell [...] complication, without long-term current use of insulin ([facility]) Use to inject insulin 1 times daily 100 each 3 Active insulin degludec (Tresiba FlexTouch) 100 UNIT/ML injectionIndicatio ns:Type 2 diabetes mellitus without complication, without long-term current use of insulin ([facility]) Inject 32 units subQ once daily at bedtime. 15 mL 5 024 Active cholecalciferol VITAMIN D (Vitamin D-3) 50 MCG (2000 UT) tablet TAKE 1 TABLET BY MOUTH EVERY EVENING 90 tablet 1 024 Active pantoprazole (ProtoNix) 40 MG EC tabletIndications: Chronic gastroesophageal reflux disease TAKE 1 TABLET BY MOUTH EVERY MORNING 90 tablet 1 025 Active gabapentin (Neurontin) 600 MG tablet TAKE 1 TABLET BY MOUTH TWICE DAILY IN THE MORNING AND AT BEDTIME 60 tablet 5 025 Active Alcohol Swabs (Alcohol Prep) 70 % padsIndications:Po mabel controlled diabetes mellitus ([facility]) USE DIRECTED BEFORE INSULIN INJECTION AND sensor CHANGE 100 each 11 025 Active Continuous Glucose Product Development Consultant (FreeStyle Gerard 2 [place]) deviceIndications: Poorly controlled diabetes mellitus ([facility]) Use to scan sensor at least every 8 hours, as directed, for CGM 1 each 025 Active Additional Information Patient not taking.Reported on 06/16/2024 glucose blood (FreeStyle Precision Angel Test) test stripIndications:P oorly controlled diabetes mellitus ([facility]) USE DIRECTED TO TEST BLOOD SUGAR UP TO TWICE DAILY DIRECTED 50 strip 5 025 Active atorvastatin (Lipitor) 20 MG tablet TAKE 1 TABLET BY MOUTH AT BEDTIME 90 tablet 3 025 Active loratadine (Claritin) 10 MG tablet TAKE 1 TABLET BY MOUTH EVERY MORNING 90 tablet 3 025 Active glucose blood (OneTouch Ultra) test strip Use to test blood sugar 3 times daily 100 each 025 2025 Active isosorbide mononitrate ER (Imdur) 30 MG 24 hr tablet TAKE 1 TABLET BY MOUTH EVERY MORNING 90 tablet 3 025 Active oxyCODONE-acetamin ophen (Percocet) 7.5-325 MG tabletIndications: Other chronic pain Take 1 tablet by mouth every 6 (six) hours if needed for severe pain. 28 tablet 025 Active meclizine (Antivert) 25 MG tablet TAKE 1 TABLET BY MOUTH THREE TIMES DAILY IN THE MORNING, AT NOON, AND AT BEDTIME NEEDED FOR DIZZINESS 30 tablet 3 025 Active lisinopril 20 MG tablet Take 20 mg by mouth at bedtime. 023 2024 Discontinued(M ed list cleanup (will not trigger notification to Pharmacy)) Continuous Blood Gluc Product Development Consultant (FreeStyle Gerard 2 [place]) deviceIndications: Poorly controlled diabetes mellitus ([facility]) Use to scan sensor at least every 8 hours, as directed, for CGM 1 each 023 2024 Discontinued(R eorder (will not trigger notification to Pharmacy)) loratadine (Claritin) 10 MG tablet TAKE 1 TABLET BY MOUTH EVERY MORNING 90 tablet 3 024 2024 Discontinued atorvastatin (Lipitor) 20 MG tablet TAKE 1 TABLET BY MOUTH AT BEDTIME 90 tablet 3 024 2024 Discontinued glucose blood (FreeStyle Precision Angel Test) test stripIndications:P oorly controlled diabetes mellitus ([facility]) USE DIRECTED TO TEST BLOOD SUGAR UP TO TWICE DAILY DIRECTED 50 strip 5 024 2024 Discontinued(R eorder (will not trigger notification to Pharmacy)) meclizine (Antivert) 25 MG tablet Take 1 tablet (25 mg) by mouth if needed in the morning, at noon, and at bedtime for dizziness. 30 tablet 3 024 2024 Discontinued isosorbide mononitrate ER (Imdur) 30 MG 24 hr tablet TAKE 1 TABLET BY MOUTH EVERY MORNING 90 tablet 1 024 2024 Discontinued(R eorder (will not trigger notification to Pharmacy)) docusate sodium (Colace) 100 MG capsuleIndications :Constipation, unspecified constipation type TAKE 1 CAPSULE BY MOUTH TWICE DAILY IN THE MORNING AND AT BEDTIME 180 capsule 3 024 2024 Discontinued(M ed list cleanup (will not trigger notification to Pharmacy)) oxyCODONE-acetamin ophen (Percocet) 7.5-325 MG tabletIndications: Other chronic pain TAKE 1 TABLET BY MOUTH EVERY 6 HOURS NEEDED FOR SEVERE PAIN FOR UP TO 7 DAYS 28 tablet 025 2024 Discontinued(R eorder (will not trigger notification to Pharmacy)) aspirin (Aspirin Low Dose) 81 MG EC tabletIndications: Type 2 diabetes mellitus with other specified complication, unspecified whether intermediate insulin use ([facility]) TAKE 1 TABLET BY MOUTH EVERY EVENING 90 tablet 1 025 2024 Discontinued(M ed list cleanup (will not trigger notification to Pharmacy)) glucose blood (OneTouch Ultra) test strip Use to test blood sugar 3 times daily 100 each 12 025 2024 Discontinued(R eorder (will not trigger notification to Pharmacy)) oxyCODONE-acetamin ophen (Percocet) 7.5-325 MG tabletIndications: Other chronic pain Take 1 tablet by mouth every 6 (six) hours if needed for severe pain. 28 tablet 025 2024 Discontinued(R eorder (will not trigger notification to Pharmacy)) Active Problems Problem Noted Date Diagnosed Date [...] Encounters Date Type Department Care Team Description 06/30/2024 9:15 AM EDT Office Visit [facility] [address] [place] [phone] Ethel Chase DO S/P total knee arthroplasty, left (Primary Dx); Closed fracture of distal end of left femur, unspecified fracture morphology, initial encounter ([facility]); C. difficile colitis; Type 2 diabetes mellitus without complication, without long-term current use of insulin ([facility]); Essential hypertension 06/30/2024 Travel 06/25/2024 Refill [facility] [address] [place] [address] Ethel Chase DO 06/24/2024 Telephone [facility] [address] [place] [phone] Ethel Chase, Nurse Triage 06/23/2024 Refill [facility] [address] [place] [address] Ethel Chase, Other chronic pain 06/18/2024 Telephone [facility] [address] [place] [address] Ethel Chase, Nurse Triage 06/15/2024 Orders Only [facility] [address] [place] [address] Dandy Fonseca MD 06/15/2024 Refill [facility] [address] [place] [address] Dottie Phan MD 06/15/2024 Refill [facility] [address] [place] [address] Ethel Chase DO 06/12/2024 Telephone [facility] [address] [place] [address] Ethel Chase, Medication Question 06/12/2024 Telephone [facility] [address] [place] [address] Ethel Chase, Call Back Request 06/11/2024 Telephone [facility] [address] [place] [address] Ethel Chase, Freestyle gerard 2 06/11/2024 Refill [facility] [address] [place] [address] Ethel Chase, Other chronic pain 06/11/2024 Refill [facility] [address] [place] [address] Ethel Chase, Poorly controlled diabetes mellitus (CMS/HCC) 06/08/2024 Patient Outreach [facility] [address] [place] [address] Juan Scanlon Transition Of Care (Tcm) (HDF unscheduled and SDOH screening negative and Tobacco screening negative) 06/08/2024 Refill [facility] [address] [place] [address] Ethel Chase DO Poorly controlled diabetes mellitus (CMS/HCC) 06/08/2024 Telephone [facility] [address] [facility] [place] [address] Ethel Chase DO Hospital Follow-up 06/05/2024 Patient Outreach [facility] [address] [facility] [address] Ethel Chase DO Transition Of Care (Tcm) (HDF unscheduled unable to LVM ) 06/05/2024 Telephone [facility] [address] [facility] [place] [address] Ethel Chase DO Hospital Follow-up 06/05/2024 Telephone [facility] [address] [place] [address] Ethel Chase DO Durable Medical Equipment ([facility] DME Request: Hospital Bed) 05/20/2024 Refill [facility] [address] [place] [address] Vaishnavi Laird PharmD Poorly controlled diabetes mellitus (CMS/HCC) 04/28/2024 Refill [facility] [address] [facility] [address] Ethel Chase DO 04/16/2024 Refill [facility] [address] [place] [address] Ethel Chase DO 04/15/2024 Orders Only GENERIC EXTERNAL DATA DEPARTMENT Provider, Generic External Data 04/14/2024 Orders Only GENERIC EXTERNAL DATA DEPARTMENT Provider, Generic External Data 04/12/2024 Orders Only GENERIC EXTERNAL DATA DEPARTMENT Provider, Generic External Data 04/07/2024 Orders Only GENERIC EXTERNAL DATA DEPARTMENT Provider, Generic External Data 04/07/2024 Refill [facility] [place] [address] Ethel Chase DO Type 2 diabetes mellitus with other specified complication, unspecified whether long term care administrator insulin use (CMS/[facility]); Chronic gastroesophageal reflux disease 04/06/2024 Refill [facility] [address] [facility] [place] [address] Ethel Chase DO Other chronic pain from [...] 18 06/30/2024 9:04 AM EDT Oxygen Saturation 97% 01/29/2024 10:33 AM EST Inhaled Oxygen Concentration - - Weight 119 kg (262 lb) 01/29/2024 10:33 AM EST Height 159.8 cm (5' 2.93 ) 06/30/2024 9:04 AM ED T Body Mass Index 46.52 01/29/2024 10:33 AM EST Plan of Treatment Health Maintenance Due Date Last Done Comments CT Colonography 1955 FIT DNA/Cologuard 1955 Sigmoidoscopy 1955 Diabetes: Foot Exam 12/29/1965 Eye Exam 12/29/1965 Hepatitis A Vaccines (1 of 2 - Risk 2-dose series) 12/29/1974 Diabetes: Urine Protein Screening 03/13/2024 03/13/2023, 08/24/2022, 10/28/2020, Additional history exists Diabetes: Hemoglobin A1C 09/30/2024 025, 06/30/2024, 01/29/2024, Additional history exists Depression Screening 10/17/2024 10/18/2023, 10/18/19 24 Lipid Panel 11/10/2024 11/11/2023, 07/28, 10/28/2020 Alcohol/Substance Use Screening 01/28/2025 01/29/2024 Tobacco Screening 01/28/2025 01/29/2024 FIT 05/29/2025 05/29/2024 FOBT 05/29/2025 05/29/2024 SDOH Screening 06/08/2025 06/08/2024 Mammogram 08/05/2025 08/06/2023, 05/0 10/2022, 07/03/2022, Additional [...] blood sugar as directed Result Component No Twilaia, Vaishnavi, PharmD Procedures Procedure Name Priority Date/Time Associated Diagnosis Comments CBC WITH AUTO DIFFERENTIAL Routine 06/30/2024 10:10 AM EDT S/P total knee arthroplasty, left Closed fracture of distal end of left femur, unspecified fracture morphology, initial encounter ([facility]) C. difficile colitis Type 2 diabetes mellitus without complication, without long-term current use of insulin ([facility]) Essential hypertension HEMOGLOBIN A1C Routine 06/30/2024 10:10 AM EDT S/P total knee arthroplasty, left Closed fracture of distal end of left femur, unspecified fracture morphology, initial encounter ([facility]) C. difficile colitis Type 2 diabetes mellitus without complication, without long-term current use of insulin ([facility]) Essential hypertension CBC Routine 06/30/2024 10:10 AM EDT Type 2 diabetes mellitus without complication, without long-term current use of insulin ([facility]) POCT GLUCOSE Routine 06/30/2024 9:09 AM EDT Type 2 diabetes mellitus without complication, without long-term current use of insulin ([facility]) POCT GLYCOSYLATED HEMOGLOBIN (HGB A1C) Routine 06/30/2024 9:08 AM EDT Type 2 diabetes mellitus without complication, without long-term current use of insulin ([facility]) GLUCOSE, WHOLE BLOOD Routine 04/15/2024 11:44 AM [...] VAGINOSIS PANEL Routine 04/07/2024 10:22 AM EST LIPID PANEL, STANDARD Routine 11/11/2023 9:05 AM [...] Relevant to Health Maintenance Results * (ABNORMAL) CBC auto differential (06/30/2024 10:10 AM EDT) Only the most recent of2 resultswithin the time period is included. Neutrophils Percent Auto 64.7 45 - 73 % [facility] Imm Gran Pct Auto 0.7(H) 0.0 - 0.4 % [facility] Lymphocytes Percent Auto 27.8 20 - 40 % [facility] Monocytes Percent Auto 5.2 2 - 11 % [facility] Eosinophils Percent Auto 1.2 0 - 4 % [facility] Basophils Percent Auto 0.4 0 - 2 % [facility] Neutrophils Absolute Auto 7.7 2.0 - 8.3 x10*3/uL [facility] Imm Gran Abs Auto 0.08(H) 0.00 - 0.03 X10*3/uL [facility] Lymphocytes Absolute Auto 3.3 1.2 - 4.9 X10*3/uL [facility] Monocytes Absolute Auto 0.6 0.1 - 1.2 X10*3/uL [facility] Eosinophils Absolute Auto 0.1 0.0 - 0.4 X10*3/uL [facility] Basophils Absolute Auto 0.1 0.0 - 0.2 X10*3/uL [facility] Blood Venous blood specimen / Unknown 06/30/2024 10:10 AM EDT 06/30/2024 11:16 AM EDT us Ethel Chase DO LAB BLOOD ORDERABLES Final R esult [facility] [address] [place], [place] [phone] * (ABNORMAL) CBC (06/30/2024 10:10 AM EDT) White Blood Count 11.9(H) 4.8 - 10.8 X10*3/uL [facility] Red Blood Count 4.12(L) 4.20 - 5.50 X10*6/uL [facility] Hemoglobin 10.5(L) 12.0 - 16.0 g/dl [facility] Hematocrit 33.8(L) 37.0 - 47.0 % [facility] Mean Corpuscular Volume 82.0 80.0 - 98.0 fL [facility] Mean Corpuscular Hemoglobin 25.5(L) 27.0 - 33.0 pg [facility] Mean Corpuscular HGB Conc 31.1 31.0 - 35.0 g/dl [facility] Red Cell Distribution Width 14.8 11.0 - 16.0 % [facility] Platelet Count 353 160 - 400 X10*3/uL [facility] Mean Platelet Volume 9.7 9.4 - 12.3 fL [facility] NRBC Pct Auto 0.0 0.0 - 0.2 /100WBC [facility] NRBC Abs Auto 0.000 0.0 - 0.012 X10*3/uL [facility] Blood Venous blood specimen / Unknown 06/30/2024 10:10 AM EDT 06/30/2024 11:16 AM EDT Ethel Chase DO LAB BLOOD ORDERABLES Final R esult Performing Organization Address [facility] Co de Phone Number [facility] [address] [place] [phone] * (ABNORMAL) Hemoglobin A1c (06/30/2024 10:10 AM EDT) Hemoglobin A1c 7.5(H) <6.0 % [facility] Comment:Hemoglobin A1C Refer ence Range Adults: 4.8 - 6.0 % Non diabetic: < 6.0 % Goal: < 7.0 %Additional Action Suggested: > 8.0 %Note: Hemoglobin A1c results are invalid for patients with abnormal amounts of HbF. Blood transfusions may impact the HbA1c concentration in the patient sample. Estimated Average Glucose 169 mg/dL [facility] Comment:eAG = Estimated ave rage glucose which is %A1C expressed asaverage glucose, using the formula of the [id number] Glucose study (ADAG), Diabetes Care, Vol.31,#8,Sep. 2007 Blood Venous blood specimen / Unknown 06/30/2024 10:10 AM EDT 06/30/2024 11:16 AM EDT Ethel Chase DO LAB BLOOD ORDERABLES Final R esult Performing Organization Address [facility] Co de Phone Number [facility] [address] [place] [phone] * POCT glucose manually resulted (06/30/2024 9:09 AM EDT) Glucose Blood, POC 194 60 - 200 mg/dL Comment:RANDOM QC Media Lot # [id number] Lot# Expiration Date Blood Capillary blood specimen / Unknown 06/30/2024 9:09 AM EDT Result [facility] Ethel Jurcsak DO POINT OF CARE TEST ENTER/MARGARITA T ORDERABLES Final Result * (ABNORMAL) POCT glycosylated hemoglobin (Hgb A1c) (06/30/2024 9:08 AM EDT) [facility] Hemoglobin A1C 7.7(A) 4.0 - 6.0 % QC Media Lot # [id number] Lot# Expiration Date 198 Blood Capillary blood specimen / Unknown 06/30/2024 9:08 AM EDT us Ethel Chase DO POINT OF CARE TEST ENTER/MARGARITA T ORDERABLES Final Result * (ABNORMAL) Glucose, Whole Blood (04/15/2024 11:44 AM EST) Only the most recent of3 resultswithin the time period is included. [facility] Glucose, Whole Blood 136(H) 60 - 115 mg/dL [facility] Comment:METER #: [id number] 04/15/2024 11:4 4 AM EST 04/15/2024 11:48 AM EST us Generic External Data Provider LAB BLOOD ORDERAB LES Final Result [facility] [address] [place] [phone] * (ABNORMAL) Basic Metabolic Panel (04/15/2024 9:44 AM EST) [facility] Sodium 138 135 - 145 mmol/L [facility] Potassium 4.3 3.3 - 5.1 mmol/L [facility] Chloride 102 96 - 108 mmol/L [facility] Carbon Dioxide 24 22 - 29 mmol/L [facility] Anion Gap 16 12 - 20 [facility] Urea Nitrogen (BUN) 15 9 - 16 mg/dL [facility] Creatinine, Serum 1.10 0.5 - 1.4 mg/dL [facility] Creatinine Clr Calc Pharmacy 59.6 [facility] Comment:Provided height and weight: 160.02 cm,114.305 kg.eGFR (calculated from the MDRD study equation) and eCrCl(calculated from the Cockcroft-Gault equation) are based ondifferent parameters and may not yield comparable results.If eCrCl result is absurd, please check patient'sheight/weight. Estimated Glomerular Filt Rate 49 [facility] Comment:Chronic Kidney Disea se: Estimated GFR < 60 mL/min/1.75y1Wbupaq Kidney Disease: Estimated GFR < 15 mL/min/1.73m2 Glucose 154(H) 60 - 115 mg/dL [facility] Calcium 9.0 8.4 - 10.2 mg/dL [facility] 04/15/2024 9:44 AM EST 04/15/2024 9:54 AM EST us Generic External Data Provider LAB BLOOD ORDERAB LES Final Result [facility] [address] [place] [phone] [phone] * SARS-CoV-2 RNA, Influenza A/B, and RSV RNA, Ql NAAT (04/14/2024 10:44 AM EST) Influenza A PCR NEGATIVE Negative [facility] Influenza B PCR NEGATIVE Negative [facility] Resp Syncy Virus RNA Qual PCR NEGATIVE Negative [facility] SARS COV2 PCR NEGATIVE Negative [facility] Comment:All test results mus t [...] use by authorized laboratories.Testing performed on the [employer] GeneXpert utilizingreal-time RT-PCR.All SARS CoV2 and positive influenza A/B results arereported to [facility]. 04/14/2024 10:4 4 AM EST 04/14/2024 10:54 AM EST us Generic External Data Provider LAB MICROBIOLOGY - GENERAL ORDERABLES Final Result [facility] [address] [facility] [place] [address] [phone] * CT Kne w/o Contrast Left (04/12/2024 4:41 PM EST) Anatomical Region Laterality Modality Lower Extremities, Knee Left Computed Tomography 04/12/2024 4:41 PM EST Narrative 04/12/2024 4:43 PM EST ? [facility] ?[address] ?[place] [address] ? CT Scan Report ? Signed ? Patient: Trish Cameron ?MR#: ?? [id number] ? : 1955 ?Acct:[id number] ? Age/Sex: 68 / F ?ADM Date: 04/12/24 ? Loc: HO.ED ? Attending Dr: ? Ordering Physician: Kierra Betts NP ?? Date of Service: 04/12/24 ?? Procedure(s): CT knee LT wo IV con ?? Accession Number(s): [id number] ? cc: Ethel Chase DO; Kierra Betts NP ? Report Number: ?? [id number]: Total DLP = ?0.00 mGy-cm ? CLINICAL HISTORY: femur fx, recent TKA revision ? CT left knee without contrast ? Comparison: CR/PA - XR KNEE LT 4V - 04/12/24 [...] in OV> ? 04/12/24 1643 ? DD/ 164 ? TD/TT: 04/12/24 1641 ? Stone Rougher: ? Procedure Note Donradhater, Image - 04/12/[address] [address] [address] Scan Report Signed Patient: Trish Cameron MMR#: [id number] : 6Acct:[id number] Age/Sex: 68 / FADM Date: 04/12/24 Loc: HO.ED Attending Dr: Ordering Physician: Kierra Betts NP Date of Service: 04/12/24 Procedure(s): CT knee LT wo IV con Accession Number(s): [id number] cc: Ethel Chase DO; Kierra Betts NP Report Number: [id number]: Total DLP = 0.00 mGy-cm CLINICAL HISTORY: femur fx, recent TKA revision CT left knee without contrast Comparison: CR/PA - XR KNEE LT 4V - 04/12/24 [...] MD in OV> 04/12/241642 DD/ 40 TD/TT: 04/12/24 164 Stone Rougher: us [facility] External Provider IMG CT PROCEDURES Edited Result - Final * CT Head w/o Contrast (04/12/2024 4:31 PM EST) Anatomical Region Laterality Modality Head, Neck Computed Tomogra phy 04/12/2024 4:31 PM EST Narrative 04/12/2024 4:32 PM EST ? [facility] ?[address] ?[place] [address] ? CT Scan Report ? Signed ? Patient: Trish Cameron ?MR#: ?? [id number] ? : 1955 ?Acct:[id number] ? Age/Sex: 68 / F ?ADM Date: 04/12/24 ? Loc: HO.ED ? Attending Dr: ? Ordering Physician: Kierra Betts NP ?? Date of Service: 04/12/24 ?? Procedure(s): CT head/brain wo IV con ?? Accession Number(s): [id number] ? cc: Ethel Chase DO; Kierra Betts NP ? Report Number: ?? [id number]: Total DLP = 1028.00 mGy-cm ? CLINICAL [...] DD/ 1631 ? TD/TT: 04/12/24 1631 ? Stone Rougher: ? Procedure Note Carito, Image - 04/12/[address] [address] [address] Scan Report Signed Patient: Trish Cameron [facility]#: [id number] : 1955cct:[id number] Age/Sex: 68 / FADM Date: 04/12/24 Loc: HO.ED Attending Dr: Ordering Physician: Kierra Betts NP Date of Service: 04/12/24 Procedure(s): CT head/brain wo IV con Accession Number(s): [id number] cc: Ethel Chase DO; Kierra Betts NP Report Number: [id number]: Total DLP = 1028.00 mGy-cm CLINICAL HISTORY: [...] 04/12/24 1631 DD/ 1631 TD/TT: 04/12/24 1631 Stone Rougher: us [facility] External Provider IMG CT PROCEDURES Edited Result - Final * US VENOUS DUPLEX LE LT (04/12/2024 3:15 PM EST) Anatomical Region Laterality Modality Abdomen Ultrasound 04/12/2024 3:15 PM EST Narrative 04/12/2024 3:17 PM EST ? [facility] ?[address] ?[place] [address] ? Ultrasound Report ? Signed ? Patient: Dale Oc,Vane ?MR#: ?? [id number] ? : 1955 ?Acct:[id number] ? Age/Sex: 68 / F ?ADM Date: 04/12/24 ? Loc: HO.ED ? Attending Dr: ? Ordering Physician: Kierra Betts NP ?? Date of Service: 04/12/24 ?? Procedure(s): US venous duplex LE LT ?? Accession Number(s): [id number] ? cc: Ethel Chase DO; Kierra Betts [...] ? DD/ 14 ? TD/TT: 04/12/241514 ? Stone Rougher: ? Procedure Note Alek Arzate - 04/12/2024 [place] [address] Ultrasound Report Signed Patient: Trish Cameron [facility]#: [id number] : 6Acct:[id number] Age/Sex: 68 / FADM Date: 04/12/24 Loc: HO.ED Attending Dr: Ordering Physician: Kierra Betts NP Date of Service: 04/12/24 Procedure(s): US venous duplex LE LT Accession Number(s): [id number] cc: Ethel Chase DO; Kierra Betts NP [...] 04/12/24 1517 DD/ 1515 TD/TT: 04/12/24 151 Stone Rougher: us [facility] External Provider IMG US PROCEDURES Edited Result - Final * XR Knee 4+ Views Left (04/12/2024 2:32 PM EST) Anatomical Region Laterality Modality Lower Extremities, Knee Left Radiogra phic Imaging 04/12/2024 2:32 PM EST Narrative 04/12/2024 2:34 PM EST ? [facility] ?[address] ?[place] [address] ?XRay Report ? Signed ? Patient: Trish Cameron ?MR#: ?? [id number] ? : 1955 ?Acct:[id number] ? Age/Sex: 68 / F ?ADM Date: 04/12/24 ? Loc: HO.ED ? Attending Dr: ? Ordering Physician: Kierra Betts NP ?? Date of Service: 04/12/24 ?? Procedure(s): XR knee LT 4V ?? Accession Number(s): [id number] ? cc: Ethel Chase DO; Kierra Betts NP ? CLINICAL HISTORY: fall, hx knee replacement with revision ? 4 view left knee ? Comparison: CR/PA - XR KNEE LT 2V - 03/24/24 [...] DD/ 1432 ? TD/TT: 04/12/24 1432 ? Stone Rougher: ? Procedure Note Donotuseinterpreter, Image - 04/12/[address] [address] XRay Report Signed Patient: Trish Cameron MMR#: [id number] : 6Acct:[id number] Age/Sex: 68 / FADM Date: 04/12/24 Loc: HO.ED Attending Dr: Ordering Physician: Kierra Betts NP Date of Service: 04/12/24 Procedure(s): XR knee LT 4V Accession Number(s): [id number] cc: Ethel Chase DO; Kierra Betts NP CLINICAL HISTORY: fall, hx knee replacement with revision 4 view left knee Comparison: CR/PA - XR KNEE LT 2V - 03/24/24 [...] 04/12/24 1433 DD/ 1432 TD/TT: 04/12/24 1432 Stone Rougher: us [facility] External Provider IMG XR PROCEDURES Edited Result - Final * Blood Culture (Second) (04/12/2024 1:55 PM EST) Blood Venous blood specimen / Unknown 04/12/2024 1:55 PM EST 04/12/2024 2:03 PM EST Comment:Blood Narrative [facility] - 04/17/2024 4:03 PM EST Blood Culture (Second) No growth after 5 days. Specimen Source: Blood Generic External Data Provider LAB MICROBIOLOGY - GENERAL ORDERABLES Final Result [facility] [address] [place] [phone] * Blood Culture (First) (04/12/2024 1:53 PM EST) Blood Venous blood specimen / Unknown 04/12/2024 1:53 PM EST 04/12/2024 2:00 PM EST Comment:Blood Narrative [facility] - 04/17/2024 4:01 PM EST Blood Culture (First) No growth after 5 days. Specimen Source: Blood Generic External Data Provider LAB MICROBIOLOGY - GENERAL ORDERABLES Final Result Performing Organization Address [facility] Co de Phone Number [facility] [address] [place] [phone] * Partial Thromboplastin Time, Activated (APTT) (04/12/2024 1:53 PM EST) Partial Thromboplastin Time 31.7 26.0 - 36.8 SEC [facility] Comment:For information rega rding the monitoring of direct thrombininhibitors, please refer to Pharmacy. 04/12/2024 1:53 PM EST 04/12/2024 2:00 PM EST us Generic External Data Provider LAB BLOOD ORDERAB LES Final Result Performing Organization Address City/[facility]/ZIP Co de Phone Number [facility] [address] [place] [phone] * (ABNORMAL) Sed Rate by Modified [place] (04/12/2024 1:53 PM EST) Erythrocyte Sedimentation Rate 100(H) 0 - 20 MM/HR [facility] Comment:Patients with polycy themia and many hemoglobin abnormalitiesmay have depressed sed rates whereas patients with anemiamay have elevated sed rates. 04/12/2024 1:53 PM EST 04/12/2024 2:00 PM EST us Generic External Data Provider LAB BLOOD ORDERAB LES Final Result Performing Organization Address City/[facility]/ZIP Co de Phone Number [facility] [address] [place] [phone] * (ABNORMAL) Prothrombin Time-INR (04/12/2024 1:53 PM EST) Prothrombin Time 12.6(H) 10.9 - 12.4 SEC [facility] INTERNATIONAL NORM RATIO 1.1 0.9 - 1.1 [facility] Comment:INTERNATIONAL NORMAL IZED RATIO (INR) REFERENCE [...] ORDERAB LES Final Result Performing Organization Address [facility]/ZIP Co de Phone Number [facility] [address] [place] [phone] * (ABNORMAL) C-reactive Protein (04/12/2024 1:53 PM EST) [facility] C Reactive Protein 11.79(H) < or = 0.50 mg/dL [facility] 04/12/2024 1:53 PM EST 04/12/2024 2:00 PM EST Generic External Data Provider LAB BLOOD ORDERAB LES Final Result Performing Organization Address [facility] Co de Phone Number [facility] [address] [place] [phone] * Lactic Acid (04/12/2024 1:53 PM EST) Lactic Acid 2.0 0.5 - 2.0 mmol/L [facility] 04/12/2024 1:53 PM EST 04/12/2024 2:00 PM EST us Generic External Data Provider LAB BLOOD ORDERAB LES Final Result [facility] [address] [place] [phone] * (ABNORMAL) Comprehensive Metabolic Panel (04/12/2024 1:53 PM EST) Sodium 136 135 - 145 mmol/L [facility] Potassium 5.3(H) 3.3 - 5.1 mmol/L [facility] Chloride 101 96 - 108 mmol/L [facility] Carbon Dioxide 25 22 - 29 mmol/L [facility] Anion Gap 15 12 - 20 [facility] Urea Nitrogen (BUN) 18(H) 9 - 16 mg/dL [facility] Creatinine, Serum 1.45(H) 0.5 - 1.4 mg/dL [facility] Creatinine Clr Calc Pharmacy 45.2 [facility] Comment:Provided height and weight: 160.02 cm,114.305 kg.eGFR (calculated from the MDRD study equation) and eCrCl(calculated from the Cockcroft-Gault equation) are based ondifferent parameters and may not yield comparable results.If eCrCl result is absurd, please check patient'sheight/weight. Estimated Glomerular Filt Rate 36 [facility] Comment:Chronic Kidney Disea se: Estimated GFR < 60 mL/min/1.13u0Mswwpv Kidney Disease: Estimated GFR < 15 mL/min/1.73m2 Glucose 148(H) 60 - 115 mg/dL [facility] Calcium 10.0 8.4 - 10.2 mg/dL [facility] Bilirubin, Total 0.3 0.0 - 1.0 mg/dL [facility] Aspartate Amino Transferase 45(H) 5 - 31 U/L [facility] Alanine Aminotransferase 29 0 - 31 U/L [facility] Total Protein 8.2(H) 6.5 - 8.0 g/dL [facility] Albumin Level 3.7 3.5 - 5.0 g/dL [facility] Alkaline Phosphatase 202(H) 39 - 117 U/L [facility] 04/12/2024 1:53 PM EST 04/12/2024 2:00 PM EST Generic External Data Provider LAB BLOOD ORDERAB LES Final Result Performing Organization Address [facility] Co de Phone Number [facility] [address] [place] [phone] * (ABNORMAL) Bacterial Vaginosis (04/07/2024 10:22 AM EST) Pathologist [facility] TRICHOMONAS VAGINALIS DETECTION BY PCR NOT DETECTED Not Detect [facility] BACTERIAL VAGINOSIS DETECTION BY PCR NEGATIVE Negative [facility] Comment:The BV organism targ ets of [...] GROUP DETECTION BY PCR DETECTED(A) Not Detect [facility] Kayy glab krusei PCR NOT DETECTED Not Detect [facility] 04/07/2024 10:2 2 AM EST 04/07/2024 3:47 PM EST Generic External Data Provider LAB MICROBIOLOGY - GENERAL ORDERABLES Final Result Performing Organization Address [facility] Co de Phone Number [facility] [address] [place] [phone] * Lipid Panel, Standard (11/11/2023 9:05 AM EDT) Triglycerides 128 <150 mg/dL [facility] Comment:Desirable Triglyceri de: less than 150 mg/dLBorderline High Triglyceride 150-199 mg/dLHigh Triglyceride: 200-499 mg/dLVery High Triglyceride: greater than or equal to 5OO mg/dL Cholesterol 108 <200 mg/dL [facility] Comment:Desirable Cholestero l: less than 200 mg/dLBorderline High Cholesterol: 200-239 mg/dLHigh Cholesterol: greater than 239 mg/dL LDL Cholesterol Calculated 42 <100 mg/dL [facility] Comment:Desirable LDL: less than 100 mg/dLNear Optimal/Above Optimal LDL: 110- 129 mg/dLBorderline High LDL: 130-159 mg/dLHigh LDL: 160-189 mg/dLVery High LDL: greater than or equal to 190 mg/dL HDL Cholesterol 41 >40 mg/dL [facility] Comment:Desirable HDL: great er than 40 mg/dL Note: This HDL assay may give artificially low results in patients with liver disease. Blood Venous blood specimen / Unknown 11/11/2023 9:05 AM EDT 11/11/2023 11:33 AM EDT us Ethel Chase DO LAB BLOOD ORDERABLES Final R esult [facility] [address] [place] [phone] * BI Mammogram Screening Tomosynthesis Bilateral (08/06/2023 11:15 AM EDT) Anatomical Region Laterality Modality Breast Bilateral Mammography 08/06/2023 11:1 5 AM EDT Narrative 09/05/2023 9:40 AM EDT ? [facility] [place] ? [address] ?[place] [address] ? Mammography Report ? Signed ? Patient: Dale Oc,Vane ?MR#: ?? [id number] ? : 1955 ?Acct:[id number] ? Age/Sex: 67 / F ?ADM Date: //24 ? Loc: HO.MAMMO ? Attending Dr: Ethel Chase DO ? Ordering Physician: Ethel Chase DO ?Results: 1N ?? egative ? Date of Service: 08/06/23 ?Follow Up: 1 Year From Orig ?? inal Mammogram ? Procedure(s): MM tomosynthesis screening BI ?? Accession Number(s): [id number] ? cc: Ethel Chase DO ? EXAMINATION: [...] 0936 ? DD/ 1115 ? TD/TT: ? Stone Rougher: ? Procedure Note Donradhater, Image - 09/05/2023 [facility] [address] [place] [address] Mammography Report Signed Patient: Trish Cameron MMR#: [id number] : 1955cct:[id number] Age/Sex: 67 / FADM Date: 08/06/23 Loc: HOJennaMAMMO Attending Dr: Ethel Chase DO Ordering Physician: Ethel Chaseults: 1N egative Date of Service: 08/06/23Follow Up: 1 Year From Orig inal Mammogram Procedure(s): MM tomosynthesis screening BI Accession Number(s): [id number] cc: Ethel Chase DO EXAMINATION: MM SCREENING [...] in OV> 09/05/23 0936 DD/ 1115 TD/TT: Stone Rougher: Ethel Chase DO IMG BI PROCEDURES Final Resu lt * Albumin, Random Urine W/Creatinine (03/13/2023 9:38 AM EST) Creatinine, Urine 131.57 mg/dL [facility] Microalbumin Urine 6.0 mg/L [facility] Microalbum Creatinine Ratio Ur 4.5 <30 ug/mg cr [facility] Comment:Albumin/Creatinine R atio Reference Ranges: Normal: < 30 ug/mg creatinine Microalbuminuria: 30 - 300 ug/mg creatinineClinical Albuminuria: > 300 ug/mg creatinine 03/13/2023 9:38 AM EST 03/13/2023 11:25 AM EST Ethel Chase DO LAB URINE ORDERABLES Final R esult [facility] [address] [place] [phone] * HEPATITIS C ANTIBODY RFLX (10/31/2019 9:40 AM EDT) Pathologist [facility] HEPATITIS C ANTIBODY [facility] Comment: Antibodies to HCV not detected; does not exclude early acute HCV infection. 10/31/2019 9:40 AM EDT Ethel Chase DO HISTORICAL/NON ORDERABLE LAB S Final Result [facility] Anywhere [address] * Colonoscopy (03/03/2019) Colonoscopy follow up in 5 years Historical Provider HEALTH MAINTENANCE Edited Result - Final from Last 3 Months or Most Recently Relevant to Health Maintenance Insurance [facility] OPTIONS (O D-SNP) JOSÉ MIGUEL HERRING [id number] Care Teams Gps Field Data Collector Relationship Specialty Start Date End Date Ethel Chase DO [address] [place] [address] PCP - General Family Medicine 10/12/13 Vaishnavi Laird, BrianD [address] [place] [address] Pharmacist Internal Medicine 02/07/23 [id number] 06/11/24
--- OUTSIDE RECORDS SUMMARY | 2024-06-30 11:35 | XMS_ITS | Encounter Summary ---
Author Organization [facility] Address [address] [place] [address] Care Team Providers Care Rv Parts And Service Director Name Role Phone Matias Bowling MD Primary Care Provider [phone] Encounter Details Date Type Department Care Team (Late st Contact Info) Description 04/23/[address] [facility] - Main Lab [address] [place] [address] Matias Bowling MD [address] [facility] [address] [place], [phone] Essential (primary) hypertension Social History Tobacco [...] LAB CHEMISTRY METHOD 04/23/2024 10:18 AM EST [facility] Potassium 4.4 3.5 - 5.5 mmol/L LAB CHEMISTRY METHOD 04/23/2024 10:18 AM EST [facility] Chloride 109 96 - [...] Resul t [facility] [address] [place] [address], * (ABNORMAL) Complete blood count (04/23/2024 5:04 AM EST) WBC 8.9 4.8 - 10.8 K/mcL LAB HEMETOLOGY METHOD 04/23/2024 9:28 AM [facility] RBC 3.40(L) 3.80 - 4.80 M/[facility] LAB HEMETOLOGY METHOD 04/23/2024 9:28 AM [facility] [...] LAB HEMETOLOGY METHOD 04/23/2024 9:28 AM EST [facility] RDW 14.6 11.0 - 15.0 % LAB HEMETOLOGY METHOD 04/23/2024 9:28 AM EST [facility] Platelets 333 130 - 400 K/mcL LAB HEMETOLOGY METHOD 04/23/2024 9:28 AM EST [facility] MPV 9.8 7.0 - 11.0 FL LAB HEMETOLOGY METHOD 04/23/2024 9:28 AM EST [facility] NRBC 0.0 <1.0 % LAB HEMETOLOGY METHOD 04/23/2024 9:28 AM EST [facility] NRBC Absolute 0.00 <0.10 K/mcL LAB HEMETOLOGY METHOD 04/23/2024 9:28 AM [facility] Blood Venous blood specimen / Unknown Venipuncture / Unknown 04/23/2024 5:04 AM EST 04/23/2024 8:47 AM EST us Matias Bowling MD LAB BLOOD ORDERABLES Final Resul t [facility] [address] [place] [address], documented in this encounter Visit Diagnoses Diagnosis Essential (primary) hypertension Unspecified essential hypertension documented in this encounter Additional Health Concerns Infection Onset Date Last Indicated Resolved Time Gastrointestinal Rule-Out 04/28/2024 04/27/2024 7:06 PM EDT C. difficile 05/29/2024 05/29/2024 06/22/2024 7:04 PM EDT C. Diff Rule-Out Infection 05/30/2024 05/29/2024 0 05/30/2024 9:47 AM EDT documented as of this encounter Care Teams Rv Parts And Service Director Relationship Specialty Start Date End Date Matias Bowling MD [address] [facility] [address] [place] [phone] PCP - General Family Medicine 04/16/24 documented as of this encounter
--- OUTSIDE RECORDS SUMMARY | 2024-06-30 11:35 | XMS_ITS | Encounter Summary ---
Author Organization [employer] Address [address] [facility] [address] [place] [address] Care Team Providers Care Nurses Aide Name Role Phone Ethel Chase DO Primary Care Provider [phone] Vaishnavi Laird PharmD Unavailable [phone] Reason for Visit * Reason Comments Med Refill Encounter Details Date Type Department Care Team (Late st Contact Info) Description 03/23/2024 Refill [facility] [address] [place] [address] Ethel Chase DO [address] [place], [place] [phone] Other chronic pain Social History Tobacco Use [...] documented as of this encounter Care Teams Nurses Aide Relationship Specialty Start Date End Date Ethel Chase DO [address] [place] [address] PCP - General Family Medicine 10/12/13 Puia, Vaishnavi, PharmD [address] [place] [address] Pharmacist Internal Medicine 02/07/23 [id number] 06/11/24 documented as of this encounter
--- OUTSIDE RECORDS SUMMARY | 2024-06-30 11:35 | XMS_ITS | Encounter Summary ---
Author Organization [facility] Address [address] [place] [address] Care Team Providers Care Manager Operations And Procurement Name Role Phone Matias Bowling MD Primary Care Provider [phone] Encounter Details Date Type Department Care Team (Late st Contact Info) Description 04/29/[address] [facility] - Main Lab [address] [facility] [place] [address] Matias Bowling MD [address] [facility] [address] [place], [phone] Essential (primary) hypertension Social History Tobacco [...] as of this encounter Care Teams Manager Operations And Procurement Relationship Specialty Start Date End Date Matias Bowling MD 38 [facility] [address] [place] [phone] PCP - General Family Medicine 04/16/24 documented as of this encounter
--- OUTSIDE RECORDS SUMMARY | 2024-06-30 11:35 | XMS_ITS | Encounter Summary ---
Author Organization [facility] Address [address] [place] [address] Care Team Providers Care Cloud Infrastructure Architect Name Role Phone Matias Bowling MD Primary Care Provider [phone] Encounter Details Date Type Department Care Team (Late st Contact Info) Description 05/27/2024 Lab Requisition [facility] - Main Lab [address] [place] [address] Matias Bowling MD 38 [facility] [address] [place], [phone] Essential (primary) hypertension Social History Tobacco [...] LAB CHEMISTRY METHOD 05/28/2024 10:13 AM EDT [facility] Potassium 4.2 3.5 - 5.5 mmol/L LAB CHEMISTRY METHOD 05/28/2024 10:13 AM EDT [facility] Chloride 103 96 - 110 mmol/L LAB CHEMISTRY METHOD 05/28/2024 10:13 AM [facility] CO2 28 21 - 32 mmol/L LAB CHEMISTRY METHOD 05/28/2024 10:13 AM [facility] Anion Gap 6 3 - 11 LAB CHEMISTRY METHOD 05/28/2024 10:13 AM [facility] Glucose 141(H) 70 - 100 mg/dL LAB CHEMISTRY METHOD 05/28/2024 10:13 AM [facility] BUN 13 5 - 25 mg/dL LAB CHEMISTRY METHOD 05/28/2024 10:13 AM [facility] Creatinine 1.21(H) 0.50 - 1.10 mg/dL LAB CHEMISTRY METHOD 05/28/2024 10:13 AM [facility] eGFR 49(L) >=60 mL/min/1. 73m2 LAB CHEMISTRY METHOD 05/28/2024 10:13 AM [facility] Comment:Calculation based on the??Chronic Kidney Disease Epidemiology Collaboration (CKD-EPI) equation refit??without adjustment for race. BUN/Creatinine Ratio 10.7 LAB CHEMISTRY METHOD 05/28/2024 10:13 AM [facility] Calcium 8.6 8.5 - 10.5 mg/dL LAB CHEMISTRY METHOD 05/28/2024 10:13 AM [facility] AST (SGOT) 12 10 - 42 unit/L LAB CHEMISTRY METHOD 05/28/2024 10:13 AM [facility] ALT (SGPT) 19 10 - 60 unit/L LAB CHEMISTRY METHOD 05/28/2024 10:13 AM [facility] Alkaline Phosphatase 147(H) 42 - 121 unit/L LAB CHEMISTRY METHOD 05/28/2024 10:13 AM [facility] Total Protein 6.3 6.0 - 8.0 g/dL LAB CHEMISTRY METHOD 05/28/2024 10:13 AM [facility] Albumin 3.1(L) 3.2 - 5.0 g/dL LAB CHEMISTRY METHOD 05/28/2024 10:13 AM EDT [facility] Total Bilirubin 0.2 0.0 - 1.4 mg/dL LAB CHEMISTRY METHOD 05/28/2024 10:13 AM T [facility] Blood Venous blood specimen / Unknown Venipuncture / Unknown 05/28/2024 5:02 AM EDT 05/28/2024 9:04 AM EDT us Matias Bowling MD LAB BLOOD ORDERABLES Final Resul t [facility] [address] [place] [address], [place] [phone] * (ABNORMAL) Complete blood count (05/28/2024 5:02 AM EDT) WBC 10.3 4.8 - 10.8 K/mcL LAB HEMETOLOGY METHOD 05/28/2024 9:26 AM [facility] RBC 3.30(L) 3.80 - 4.80 M/mcL LAB HEMETOLOGY METHOD 05/28/2024 9:26 AM [facility] Hemoglobin 8.7(L) 11.5 - 16.0 g/dL LAB HEMETOLOGY METHOD 05/28/2024 9:26 AM T [facility] Hematocrit 28.7(L) 35.0 - 47.0 % LAB HEMETOLOGY METHOD 05/28/2024 9:26 AM EDT [facility] MCV 87.0 79.0 - 98.0 FL LAB HEMETOLOGY METHOD 05/28/2024 9:26 AM [facility] MCH 26.4(L) 27.0 - 32.0 pcg LAB HEMETOLOGY METHOD 05/28[facility]24 [facility] MCHC 30.3(L) 32.0 - 37.0 g/dL LAB HEMETOLOGY METHOD 05/28/2024 9:26 AM EDT [facility] RDW 14.9 11.0 - 15.0 % LAB HEMETOLOGY METHOD 05/28/2024 9:26 AM EDT [facility] Platelets 281 130 - 400 K/mcL LAB HEMETOLOGY METHOD 05/28/2024 9:26 AM EDT [facility] MPV 10.2 7.0 - 11.0 FL LAB HEMETOLOGY METHOD 05/28/2024 9:26 AM EDT [facility] NRBC 0.0 <1.0 % LAB HEMETOLOGY METHOD 05/28/2024 9:26 AM EDT [facility] NRBC Absolute 0.00 <0.10 K/mcL LAB HEMETOLOGY METHOD 05/28/2024 9:26 AM EDT [facility] Blood Venous blood specimen / Unknown Venipuncture / Unknown 05/28/2024 5:02 AM EDT 05/28/2024 9:04 AM EDT us Matias Bowling MD LAB BLOOD ORDERABLES Final Resul t [facility] [address] [place] [address], documented in this encounter Visit Diagnoses Diagnosis Essential (primary) hypertension Unspecified essential hypertension documented in this encounter Additional Health Concerns Infection Onset Date Last Indicated Resolved Time C. difficile 05/29/2024 05/29/2024 06/22/2024 7:04 PM EDT C. Diff Rule-Out Infection 05/30/2024 05/29/2024 0 05/30/2024 9:47 AM EDT documented as of this encounter Care Teams Cloud Infrastructure Architect Relationship Specialty Start Date End Date Matias Bowling MD [address] [place] [phone] PCP - General Family Medicine 04/16/24 documented as of this encounter
--- OUTSIDE RECORDS SUMMARY | 2024-06-30 11:35 | XMS_ITS | Encounter Summary ---
Author Organization [employer] Address [address] [facility] 7t [place] [address] Care Team Providers Care Intake Nurse Name Role Phone Ethel Chase DO Primary Care Provider [phone] Vaishnavi Laird PharmD Unavailable [phone] Reason for Visit * Reason Comments Med Refill Encounter Details Date Type Department Care Team (Late st Contact Info) Description 04/16/2024 Refill [facility] MEDICINE [address] [place] [address] Ethel Chase DO [address] [place] [address] Social History Tobacco Use Types Packs/Day Years [...] documented as of this encounter Care Teams Intake Nurse Relationship Specialty Start Date End Date Ethel Chase DO [address] [place] [address] PCP - General Family Medicine 10/12/13 Twilaia, Vaishnavi, PharmD [address] [place] [address] Pharmacist Internal Medicine 02/07/23 [id number] 06/11/24 documented as of this encounter
--- OUTSIDE RECORDS SUMMARY | 2024-06-30 11:35 | XMS_ITS | Encounter Summary ---
Author Organization [facility] Address [address] [place] [address] Care Team Providers Care Make Ready Mechanic Name Role Phone Matias Bowling MD Primary Care Provider [phone] Encounter Details Date Type Department Care Team (Late st Contact Info) Description 05/22/[address] [facility] - Main Lab [address] [place] [address] Matias Bowling MD 38 [facility] [address] [place], [address] 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 classified elsewhere (CMS/HCC [...] LAB CHEMISTRY METHOD 05/22/2024 11:37 AM EDT [facility] ([facility]) [facility] Potassium 5.2 3.5 - 5.5 mmol/L LAB CHEMISTRY METHOD 05/22/2024 11:37 AM [facility] LAB Chloride 102 96 - 110 mmol/L LAB CHEMISTRY METHOD 05/22/2024 11:37 AM [facility] CO2 25 21 - 32 mmol/L LAB CHEMISTRY METHOD 05/22/2024 11:37 AM [facility] Anion Gap 7 3 - 11 LAB CHEMISTRY METHOD 05/22/2024 11:37 AM [facility] Glucose 163(H) 70 - 100 mg/dL LAB CHEMISTRY METHOD 05/22/2024 11:37 AM [facility] BUN 18 5 - 25 mg/dL LAB CHEMISTRY METHOD 05/22/2024 11:37 AM [facility] Creatinine 1.65(H) 0.50 - 1.10 mg/dL LAB CHEMISTRY METHOD 05/22/2024 11:37 AM [facility] eGFR 34(L) >=60 mL/min/1. 73m2 LAB CHEMISTRY METHOD 05/22/2024 11:37 AM [facility] LAB Comment:Calculation based on the??Chronic Kidney Disease Epidemiology Collaboration (CKD-EPI) equation refit??without adjustment for race. BUN/Creatinine Ratio 10.9 LAB CHEMISTRY METHOD 05/22/2024 11:37 AM [facility] Calcium 8.8 8.5 - 10.5 mg/dL LAB CHEMISTRY METHOD 05/22/2024 11:37 AM [facility] Blood Venous blood specimen / Unknown Venipuncture / Unknown 05/22/2024 8:23 AM EDT 05/22/2024 10:31 AM EDT us Matias Bowling MD LAB BLOOD ORDERABLES Final Resul t [facility] [address] [place] [address], [place] [phone] * (ABNORMAL) Complete blood count (05/22/2024 8:23 AM EDT) [facility] WBC 9.8 4.8 - 10.8 K/mcL LAB HEMETOLOGY METHOD 05/22/2024 11:21 AM [facility] RBC 3.60(L) 3.80 - 4.80 M/mcL LAB HEMETOLOGY METHOD 05/22/2024 11:21 AM [facility] Hemoglobin 9.5(L) 11.5 - 16.0 g/dL LAB HEMETOLOGY METHOD 05/22/2024 11:21 AM [facility] Hematocrit 31.2(L) 35.0 - 47.0 % LAB HEMETOLOGY METHOD 05/22/2024 11:21 AM [facility] MCV 86.4 79.0 - 98.0 FL LAB HEMETOLOGY METHOD 05/22/2024 11:21 AM [facility] MCH 26.3(L) 27.0 - 32.0 pcg LAB HEMETOLOGY METHOD 05/22/2024 11:21 AM [facility] MCHC 30.4(L) 32.0 - 37.0 g/dL LAB HEMETOLOGY METHOD 05/22/2024 11:21 AM [facility] RDW 14.7 11.0 - 15.0 % LAB HEMETOLOGY METHOD 05/22/2024 11:21 AM [facility] Platelets 278 130 - 400 K/mcL LAB HEMETOLOGY METHOD 05/22/2024 11:21 AM [facility] MPV 10.5 7.0 - 11.0 FL LAB HEMETOLOGY METHOD 05/22/2024 11:21 AM [facility] NRBC 0.0 <1.0 % LAB HEMETOLOGY METHOD 05/22/2024 11:[address] [facility] NRBC Absolute 0.00 <0.10 K/mcL LAB HEMETOLOGY METHOD 05/22/2024 11:[address] [facility] Blood Venous blood specimen / Unknown Venipuncture / Unknown 05/22/2024 8:23 AM EDT 05/22/2024 10:31 AM EDT us Matias Bowling MD LAB BLOOD ORDERABLES Final Resul t [facility] [address] [place] [address], documented in this encounter Visit Diagnoses Diagnosis [...] documented as of this encounter Care Teams Make Ready Mechanic Relationship Specialty Start Date End Date Matias Bowling MD 38 [facility] [address] [place] [phone] PCP - General Family Medicine 04/16/24 documented as of this encounter
--- OUTSIDE RECORDS SUMMARY | 2024-06-30 11:35 | XMS_ITS | Encounter Summary ---
Author Organization [employer] Address 75 [facility] 7t [place] [address] Care Team Providers Care Leather Toggler Name Role Phone Ethel Chase DO Primary Care Provider [phone] Vaishnavi Laird PharmD Unavailable [phone] Reason for Visit * Reason Comments Med Refill Encounter Details Date Type Department Care Team (Late st Contact Info) Description 10/25/2022 Refill [facility] [address] [place] [address] Eun Ray MD [address] [place] [address] Other chronic pain Social History Tobacco Use [...] documented as of this encounter Care Teams Leather Toggler Relationship Specialty Start Date End Date Ethel Chase DO [address] [place] [address] PCP - General Family Medicine 10/12/13 Vaishnavi Laird, Zana [address] [place] [address] Pharmacist Internal Medicine 02/07/23 [id number] 06/11/24 documented as of this encounter
--- OUTSIDE RECORDS SUMMARY | 2024-06-30 11:35 | XMS_ITS | Encounter Summary ---
Author Organization [employer] Address 75 [facility] 7t [place] [address] Care Team Providers Care Janitor Cleaner Name Role Phone Ethel Chase DO Primary Care Provider [phone] Vaishnavi Liard PharmD Unavailable [phone] Reason for Visit * Reason Onset Date Comments Nurse Triage 04/16/2023 Encounter Details Date Type Department Care Team (Late st Contact Info) Description 04/16/2023 Telephone [facility] MEDICINE [address] [place] [address] Ethel Chase DO [address] [place] [address] Nurse Triage Social History Tobacco Use Types [...] PM EST Triage call regarding message from [facility] see below. Pt answers call , [employer] [place] [id number], but, Pt is speaking bruneian well. Pt reports only high BS was [...] if any further problem to come to [facility] for provider to see Pt . [...] questions - You become worse [facility] patient has extreme high blood sugars: 355 Saturday Down to the 250 today Advises that her glucose monitor keeps beeping, [facility] Nurse advised that pt refused urgent fpc visit but was advised to go to the urgent. Please contact pt [phone] Yoruba Speaker * Telephone Encounter - Netta Armas Cheo - 04/16/2023 4:18 PM EST Tc from [facility] reporting patient has extreme high blood sugars: 355 Saturday Down to the 250 today Advises that her glucose monitor keeps beeping, [facility] Nurse advised that pt refused urgent fpc visit but was advised to go to the urgent. Please contact pt [phone] Yoruba Speaker documented in this encounter Plan of Treatment Not on file documented as of this encounter Goals Goal Patient Goal Type Associated Problems Recent Progress Patient-Stated? Author Hemoglobin A1c < 7 Result Component 7.5( 5 10:10 AM EDT) No Puia, Vaishnavi, PharmD Record your blood sugar as directed Result Component No Puia, Vaishnavi, PharmD documented as of this encounter Visit Diagnoses Not on filedocumented in this encounter Additional Health Concerns Assessment Noted Time PHQ-9 Depression Total Score: 0 02/08/20 22 10:43 AM EST documented as of this encounter Care Teams Janitor Cleaner Relationship Specialty Start Date End Date Ethel Chase DO [address] [place] [address] PCP - General Family Medicine 10/12/13 Puia, Vaishnavi, PharmD [address] [place] [address] Pharmacist Internal Medicine 02/07/23 [id number] 06/11/24 documented as of this encounter
--- OUTSIDE RECORDS SUMMARY | 2024-06-30 11:35 | XMS_ITS | Encounter Summary ---
Author Organization [employer] Address 75 [facility] 7t [place] [address] Care Team Providers Care Personal Fitness Manager Name Role Phone Ethel Chase DO Primary Care Provider [phone]- [phone] Vaishnavi Laird PharmD Unavailable [phone] Reason for Visit * Reason Onset Date Comments Appointment Request 03/02/2024 Encounter Details Date Type Department Care Team ([facility] st Contact Info) Description 03/02/2024 Telephone [facility] MEDICINE [address] [place] [address] Ethel Chase DO [address] [place], [place] [phone] Appointment Request Social History Tobacco Use Types [...] would like to reschedule. Please contact pt: [phone] (Egyptian) documented in this encounter Plan of Treatment [...] documented as of this encounter Care Teams Personal Fitness Manager Relationship Specialty Start Date End Date Ethel Chase DO [address] [place] [address] PCP - General Family Medicine 10/12/13 Vaishnavi Laird PharmD [address] [place] [address] Pharmacist Internal Medicine 02/07/23 [id number] 06/11/24 documented as of this encounter
--- OUTSIDE RECORDS SUMMARY | 2024-06-30 11:35 | XMS_ITS | Encounter Summary ---
Author Organization [facility] Address [address] [place] [address] Care Team Providers Care Product Merchandiser Name Role Phone Matias Bowling MD Primary Care Provider [phone] Encounter Details Date Type Department Care Team (Late st Contact Info) Description 04/16/2024 Lab Requisition [facility] - Main Lab [address] [place] [address] Matias Bowling MD 38 [facility] [address] [place], [address] Essential (primary) hypertension Social History Tobacco [...] LAB CHEMISTRY METHOD 04/16/2024 11:36 AM EST [facility] Potassium 4.2 3.5 - 5.5 mmol/L LAB CHEMISTRY METHOD 04/16/2024 11:36 AM EST [facility] Chloride 103 96 - 110 mmol/L LAB CHEMISTRY METHOD 04/16/2024 11:36 AM [facility] CO2 25 21 - 32 mmol/L LAB CHEMISTRY METHOD 04/16/2024 11:36 AM [facility] Anion Gap 13(H) 3 - 11 LAB CHEMISTRY METHOD 04/16/2024 11:36 AM [facility] Glucose 96 70 - 100 mg/dL LAB CHEMISTRY METHOD 04/16/2024 11:36 AM [facility] BUN 13 5 - 25 mg/dL LAB CHEMISTRY METHOD 04/16/2024 11:36 AM [facility] Creatinine 1.13(H) 0.50 - 1.10 mg/dL LAB CHEMISTRY METHOD 04/16/2024 11:36 AM [facility] eGFR 53(L) >=60 mL/min/1. 73m2 LAB CHEMISTRY METHOD 04/16/2024 11:36 AM [facility] Comment:Calculation based on the??Chronic Kidney Disease Epidemiology Collaboration (CKD-EPI) equation refit??without adjustment for race. BUN/Creatinine Ratio 11.5 LAB CHEMISTRY METHOD 04/16/2024 11:36 AM [facility] Calcium 9.1 8.5 - 10.5 mg/dL LAB CHEMISTRY METHOD 04/16/2024 11:36 AM [facility] AST (SGOT) 31 10 - 42 unit/L LAB CHEMISTRY METHOD 04/16/2024 11:36 AM [facility] ALT (SGPT) 33 10 - 60 unit/L LAB CHEMISTRY METHOD 04/16/2024 11:36 AM [facility] Alkaline Phosphatase 181(H) 42 - 121 unit/L LAB CHEMISTRY METHOD 04/16/2024 11:36 AM [facility] Total Protein 7.5 6.0 - 8.0 g/dL LAB CHEMISTRY METHOD 04/16/2024 11:36 AM [facility] Albumin 3.3 3.2 - 5.0 g/dL LAB CHEMISTRY METHOD 04/16/2024 11:36 AM [facility] Total Bilirubin 0.4 0.0 - 1.4 mg/dL LAB CHEMISTRY METHOD 04/16/2024 11:36 AM [facility] Blood Venous blood specimen / Unknown Venipuncture / Unknown 04/16/2024 7:33 AM EST 04/16/2024 10:20 AM EST us Matias Bowling MD LAB BLOOD ORDERABLES Final Resul t [facility] [address] [place] [address], [place] [phone] * (ABNORMAL) Complete blood count (04/16/2024 7:33 AM EST) WBC 11.5(H) 4.8 - 10.8 K/mcL LAB HEMETOLOGY METHOD 04/16/2024 11:12 AM [facility] RBC 3.70(L) 3.80 - 4.80 M/mcL LAB HEMETOLOGY METHOD 04/16/2024 11:12 AM [facility] Hemoglobin 9.9(L) 11.5 - 16.0 g/dL LAB HEMETOLOGY METHOD 04/16/2024 11:12 AM [facility] Hematocrit 32.1(L) 35.0 - 47.0 % LAB HEMETOLOGY METHOD 04/16/2024 11:12 AM [facility] MCV 87.5 79.0 - 98.0 FL LAB HEMETOLOGY METHOD 04/16/2024 11:12 AM [facility] MCH 27.0 27.0 - 32.0 pcg LAB HEMETOLOGY METHOD 04/16/2024 11:12 AM [facility] MCHC 30.8(L) 32.0 - 37.0 g/dL LAB HEMETOLOGY METHOD 04/16/2024 11:12 AM EST [facility] RDW 14.2 11.0 - 15.0 % LAB HEMETOLOGY METHOD 04/16/2024 11:12 AM EST [facility] Platelets 443(H) 130 - 400 K/mcL LAB HEMETOLOGY METHOD 04/16/2024 11:12 AM EST [facility] MPV 9.8 7.0 - 11.0 FL LAB HEMETOLOGY METHOD 04/16/2024 11:12 AM EST [facility] NRBC 0.0 <1.0 % LAB HEMETOLOGY METHOD 04/16/2024 11:12 AM [facility] NRBC Absolute 0.00 <0.10 K/mcL LAB HEMETOLOGY METHOD 04/16/2024 11:12 AM [facility] Blood Venous blood specimen / Unknown Venipuncture / Unknown 04/16/2024 7:33 AM EST 04/16/2024 10:20 AM EST us Matias Bowling MD LAB BLOOD ORDERABLES Final Resul t [facility] [address] [place] [address], documented in this encounter Visit Diagnoses Diagnosis Essential (primary) hypertension Unspecified essential hypertension documented in this encounter Additional Health Concerns Infection Onset Date Last Indicated Resolved Time Gastrointestinal Rule-Out 04/28/2024 04/27/2024 7:06 PM EDT C. difficile 05/29/2024 05/29/2024 06/22/2024 7:04 PM EDT C. Diff Rule-Out Infection 05/30/2024 05/29/2024 0 05/30/2024 9:47 AM EDT documented as of this encounter Care Teams Product Merchandiser Relationship Specialty Start Date End Date Matias Bowling MD [address] [phone] PCP - General Family Medicine 04/16/24 documented as of this encounter
--- OUTSIDE RECORDS SUMMARY | 2024-06-30 11:35 | XMS_ITS | Encounter Summary ---
Author Organization [employer] Address 75 [facility] 7t [place] [address] Care Team Providers Care Journeyman Tool And Die Maker Name Role Phone ManuelEthel perry Primary Care Provider [phone] Vasihnavi Laird PharmD Unavailable [phone] Encounter Details Date Type Department Care Team (Late st Contact Info) Description 02/09/2022 Orders Only [facility]S [address] [place], [place] [phone] Sadie Rivera, ANP [address] [place] [address] Social History Tobacco Use Types Packs/Day Years [...] documented as of this encounter Care Teams Journeyman Tool And Die Maker Relationship Specialty Start Date End Date Ethel Chase DO [address] [place], [place] [phone] PCP - General Family Medicine 10/12/13 Vaishnavi Laird PharmD [address] [place] [address] Pharmacist Internal Medicine 02/07/23 [id number] 06/11/24 documented as of this encounter
--- OUTSIDE RECORDS SUMMARY | 2024-06-30 11:35 | XMS_ITS | Encounter Summary ---
Author Organization [employer] Address 75 [facility] 7t [place] [address] Care Team Providers Care Nurse Intern Name Role Phone Ethel Chase DO Primary Care Provider [phone] Vaishnavi Laird PharmD Unavailable [phone] Reason for Visit * Reason Onset Date Comments Pre-Op 03/23/2024 Encounter Details Date Type Department Care Team ([facility] st Contact Info) Description 03/23/2024 Telephone [facility] MEDICINE [address] [place] [address] Ethel Chase DO [address] [place], [place] [phone] Pre-Op Social History Tobacco Use Types Packs/Day [...] Yes Include A1c EKG: Yes Surgeon's name: Daev Oro Facility name: [facility] Orthopedic Surgeon's office number: [phone] Surgeon's office fax number: [phone] Contact name (person you spoke with): Trish [...] Component 7.5( 5 10:10 AM EDT) No Vaishnavi Laird, PharmD Record your blood sugar as directed Result Component No Vaishnavi Laird PharmD documented as of this encounter Visit Diagnoses Not on filedocumented in this encounter Additional Health Concerns Assessment Noted Time PHQ-9 Depression Total Score: 8 10/18/19 24 11:35 AM EDT documented as of this encounter Care Teams Nurse Intern Relationship Specialty Start Date End Date Ethel Chase DO [address] [place] [address] PCP - General Family Medicine 10/12/13 Vaishnavi Laird, Zana [address] [place] [address] Pharmacist Internal Medicine 02/07/23 [id number] 06/11/24 documented as of this encounter
--- OUTSIDE RECORDS SUMMARY | 2024-06-30 11:35 | XMS_ITS | Encounter Summary ---
Author Organization [facility] Address [address] [place] [address] Care Team Providers Care Calender Feeder Name Role Phone Matias Bowling MD Primary Care Provider [phone] Encounter Details Date Type Department Care Team (Late st Contact Info) Description 06/03/2024 Lab Requisition [facility] - Main Lab [address] [place] [address] Matias Bowling MD 38 [facility] [address] [place], [address] Essential (primary) hypertension Social History Tobacco [...] Associated Diagnosis Comments COMPLETE BLOOD COUNT Routine 06/04/2024 5:45 AM EDT Essential (primary) hypertension COMPREHENSIVE METABOLIC PANEL Routine 06/04/2024 5:45 AM EDT Essential (primary) hypertension documented in this encounter Results * (ABNORMAL) Comprehensive metabolic panel (06/04/2024 5:45 AM EDT) Sodium 139 133 - 145 mmol/L LAB CHEMISTRY METHOD 06/04/2024 11:53 AM EDT [facility] Potassium 4.5 3.5 - 5.5 mmol/L LAB CHEMISTRY METHOD 06/04/2024 11:53 AM EDT [facility] Chloride 102 96 - 110 mmol/L LAB CHEMISTRY METHOD 06/04/2024 11:53 AM [facility] CO2 29 21 - 32 mmol/L LAB CHEMISTRY METHOD 06/04/2024 11:53 AM [facility] Anion Gap 8 3 - 11 LAB CHEMISTRY METHOD 06/04/2024 11:53 AM [facility] Glucose 159(H) 70 - 100 mg/dL LAB CHEMISTRY METHOD 06/04/2024 11:53 AM [facility] BUN 11 5 - 25 mg/dL LAB CHEMISTRY METHOD 06/04/2024 11:53 AM [facility] Creatinine 1.11(H) 0.50 - 1.10 mg/dL LAB CHEMISTRY METHOD 06/04/2024 11:53 AM [facility] eGFR 54(L) >=60 mL/min/1. 73m2 LAB CHEMISTRY METHOD 06/04/2024 11:53 AM [facility] Comment:Calculation based on the??Chronic Kidney Disease Epidemiology Collaboration (CKD-EPI) equation refit??without adjustment for race. BUN/Creatinine Ratio 9.9 LAB CHEMISTRY METHOD 06/04/2024 11:53 AM [facility] Calcium 9.0 8.5 - 10.5 mg/dL LAB CHEMISTRY METHOD 06/04/2024 11:53 AM [facility] AST (SGOT) 16 10 - 42 unit/L LAB CHEMISTRY METHOD 06/04/2024 11:53 AM [facility] ALT (SGPT) 17 10 - 60 unit/L LAB CHEMISTRY METHOD 06/04/2024 11:53 AM [facility] Alkaline Phosphatase 144(H) 42 - 121 unit/L LAB CHEMISTRY METHOD 06/04/2024 11:53 AM [facility] Total Protein 6.7 6.0 - 8.0 g/dL LAB CHEMISTRY METHOD 06/04/2024 11:53 AM [facility] Albumin 3.2 3.2 - 5.0 g/dL LAB CHEMISTRY METHOD 06/04/2024 11:53 AM EDT [facility] Total Bilirubin 0.2 0.0 - 1.4 mg/dL LAB CHEMISTRY METHOD 06/04/2024 11:53 AM EDT [facility] Blood Venous blood specimen / Unknown Venipuncture / Unknown 06/04/2024 5:45 AM EDT 06/04/2024 11:02 AM EDT us Matias Bowling MD LAB BLOOD ORDERABLES Final Resul t [facility] [address] [place] [address], [place] [phone] * (ABNORMAL) Complete blood count (06/04/2024 5:45 AM EDT) WBC 12.1(H) 4.8 - 10.8 K/mcL LAB HEMETOLOGY METHOD 06/04/2024 11:21 AM EDT [facility] RBC 3.50(L) 3.80 - 4.80 M/mcL LAB HEMETOLOGY METHOD 06/04/2024 11:21 AM [facility] Hemoglobin 9.1(L) 11.5 - 16.0 g/dL LAB HEMETOLOGY METHOD 06/04/2024 11:21 AM T [facility] Hematocrit 29.5(L) 35.0 - 47.0 % LAB HEMETOLOGY METHOD 06/04/2024 11:21 AM EDT [facility] MCV 85.0 79.0 - 98.0 FL LAB HEMETOLOGY METHOD 06/04/2024 11:21 AM [facility] MCH 26.2(L) 27.0 - 32.0 pcg LAB HEMETOLOGY METHOD 06/04/2024 11:21 AM EDT [facility] MCHC 30.8(L) 32.0 - 37.0 g/dL LAB HEMETOLOGY METHOD 06/04/2024 11:21 AM EDT [facility] RDW 14.9 11.0 - 15.0 % LAB HEMETOLOGY METHOD 06/04/2024 11:21 AM EDT [facility] Platelets 309 130 - 400 K/mcL LAB HEMETOLOGY METHOD 06/04/2024 11:21 AM EDT [facility] MPV 10.0 7.0 - 11.0 FL LAB HEMETOLOGY METHOD 06/04/2024 11:21 AM EDT [facility] NRBC 0.0 <1.0 % LAB HEMETOLOGY METHOD 06/04/2024 11:21 AM EDT [facility] NRBC Absolute 0.00 <0.10 K/mcL LAB HEMETOLOGY METHOD 06/04/2024 11:21 AM EDT [facility] Blood Venous blood specimen / Unknown Venipuncture / Unknown 06/04/2024 5:45 AM EDT 06/04/2024 11:02 AM EDT us Matias Bowling MD LAB BLOOD ORDERABLES Final Resul t [facility] [address] [place] [address], documented in this encounter Visit Diagnoses Diagnosis Essential (primary) hypertension Unspecified essential hypertension documented in this encounter Additional Health Concerns Infection Onset Date Last Indicated Resolved Time C. difficile 05/29/2024 05/29/2024 06/22/2024 7:04 PM EDT documented as of this encounter Care Teams Calender Feeder Relationship Specialty Start Date End Date Matias Bowling MD [address] [phone] PCP - General Family Medicine 04/16/24 documented as of this encounter
--- OUTSIDE RECORDS SUMMARY | 2024-06-30 11:35 | XMS_ITS | Encounter Summary ---
Author Organization [facility] Address [address] [place] [address] Care Team Providers Care Vice President Of Software Development Name Role Phone Matias Bowling MD Primary Care Provider [phone] Encounter Details Date Type Department Care Team (Late st Contact Info) Description 05/13/2024 Lab Requisition [facility] - Main Lab [address] [place] [address] Matias Bowling MD 38 [facility] [address] [place], [address] Essential (primary) hypertension Social History Tobacco [...] LAB CHEMISTRY METHOD 05/14/2024 11:24 AM EDT [facility] Potassium 5.2 3.5 - 5.5 mmol/L LAB CHEMISTRY METHOD 05/14/2024 11:24 AM EDT [facility] Chloride 108 96 - 110 mmol/L LAB CHEMISTRY METHOD 05/14/2024 11:24 AM [facility] CO2 25 21 - 32 mmol/L LAB CHEMISTRY METHOD 05/14/2024 11:24 AM [facility] Anion Gap 5 3 - 11 LAB CHEMISTRY METHOD 05/14/2024 11:24 AM [facility] Glucose 132(H) 70 - 100 mg/dL LAB CHEMISTRY METHOD 05/14/2024 11:24 AM [facility] BUN 13 5 - 25 mg/dL LAB CHEMISTRY METHOD 05/14/2024 11:24 AM [facility] Creatinine 1.06 0.50 - 1.10 mg/dL LAB CHEMISTRY METHOD 05/14/2024 11:24 AM [facility] eGFR 57(L) >=60 mL/min/1. 73m2 LAB CHEMISTRY METHOD 05/14/2024 11:24 AM [facility] Comment:Calculation based on the??Chronic Kidney Disease Epidemiology Collaboration (CKD-EPI) equation refit??without adjustment for race. BUN/Creatinine Ratio 12.3 LAB CHEMISTRY METHOD 05/14/2024 11:24 AM [facility] Calcium 9.6 8.5 - 10.5 mg/dL LAB CHEMISTRY METHOD 05/14/2024 11:24 AM [facility] AST (SGOT) 20 10 - 42 unit/L LAB CHEMISTRY METHOD 05/14/2024 11:24 AM [facility] ALT (SGPT) 28 10 - 60 unit/L LAB CHEMISTRY METHOD 05/14/2024 11:24 AM [facility] Alkaline Phosphatase 160(H) 42 - 121 unit/L LAB CHEMISTRY METHOD 05/14/2024 11:24 AM [facility] Total Protein 6.6 6.0 - 8.0 g/dL LAB CHEMISTRY METHOD 05/14/2024 11:24 AM [facility] Albumin 3.2 3.2 - 5.0 g/dL LAB CHEMISTRY METHOD 05/14/2024 11:24 AM EDT [facility] Total Bilirubin 0.2 0.0 - 1.4 mg/dL LAB CHEMISTRY METHOD 05/14/2024 11:24 AM EDT [facility] Blood Venous blood specimen / Unknown Venipuncture / Unknown 05/14/2024 6:06 AM EDT 05/14/2024 9:53 AM EDT us Matias Bowling MD LAB BLOOD ORDERABLES Final Resul t [facility] [address] [place] [address], [place] [phone] * (ABNORMAL) Complete blood count (05/14/2024 6:06 AM EDT) WBC 8.8 4.8 - 10.8 K/mcL LAB HEMETOLOGY METHOD 05/14/2024 10:16 AM T [facility] RBC 3.50(L) 3.80 - 4.80 M/mcL LAB HEMETOLOGY METHOD 05/14/2024 10:16 AM T [facility] Hemoglobin 9.4(L) 11.5 - 16.0 g/dL LAB HEMETOLOGY METHOD 05/14/2024 10:16 AM EDT [facility] Hematocrit 30.4(L) 35.0 - 47.0 % LAB HEMETOLOGY METHOD 05/14/2024 10:16 AM EDT [facility] MCV 85.9 79.0 - 98.0 FL LAB HEMETOLOGY METHOD 05/14/2024 10:16 AM T [facility] MCH 26.6(L) 27.0 - 32.0 pcg LAB HEMETOLOGY METHOD 05/14/2024 10:16 AM T [facility] MCHC 30.9(L) 32.0 - 37.0 g/dL LAB HEMETOLOGY METHOD 05/14/2024 10:16 AM EDT [facility] RDW 14.6 11.0 - 15.0 % LAB HEMETOLOGY METHOD 05/14/2024 10:16 AM EDT [facility] Platelets 275 130 - 400 K/mcL LAB HEMETOLOGY METHOD 05/14/2024 10:16 AM EDT [facility] MPV 10.1 7.0 - 11.0 FL LAB HEMETOLOGY METHOD 05/14/2024 10:16 AM EDT [facility] NRBC 0.0 <1.0 % LAB HEMETOLOGY METHOD 05/14/2024 10:16 AM EDT [facility] NRBC Absolute 0.00 <0.10 K/mcL LAB HEMETOLOGY METHOD 05/14/2024 10:16 AM EDT [facility] Blood Venous blood specimen / Unknown Venipuncture / Unknown 05/14/2024 6:06 AM EDT 05/14/2024 9:53 AM EDT us Matias Bowling MD LAB BLOOD ORDERABLES Final Resul t [facility] [address] [place] [address], documented in this encounter Visit Diagnoses Diagnosis Essential (primary) hypertension Unspecified essential hypertension documented in this encounter Additional Health Concerns Infection Onset Date Last Indicated Resolved Time Gastrointestinal Rule-Out 04/28/2024 04/27/2024 7:06 PM EDT C. difficile 05/29/2024 05/29/2024 06/22/2024 7:04 PM EDT C. Diff Rule-Out Infection 05/30/2024 05/29/2024 0 05/30/2024 9:47 AM EDT documented as of this encounter Care Teams Vice President Of Software Development Relationship Specialty Start Date End Date Matias Bowling MD 38 [facility] [address] [place] [phone] PCP - General Family Medicine 04/16/24 documented as of this encounter
--- OUTSIDE RECORDS SUMMARY | 2024-06-30 11:35 | XMS_ITS | Encounter Summary ---
Author Organization [facility] Address [address] [place] [address] Care Team Providers Care Tube Closing Machine Operator Name Role Phone Matias Bowling MD Primary Care Provider [phone] Encounter Details Date Type Department Care Team (Late st Contact Info) Description 05/30/2024 Lab Requisition [facility] - Main Lab [address] [facility] [employer] [place] [address] Matias Bowling MD 38 [facility] [address] [place], [address] Diarrhea, unspecified Social History Tobacco Use [...] LAB MICROBIOLOGY METHOD 05/30/2024 11:16 AM EDT [facility] Comment: CRITICAL RESULT POSITIVE FOR TOXIN PRODUCING CLOSTRIDIOIDES DIFFICILE, NO ADDITIONAL TESTING IS NECESSARY. REPEAT SAMPLES SHOULD NOT BE SUBMITTED FOR TEST OF CURE. Stool Rectum structure / Unknown Non-blood Collection / Unknown 05/29/2024 1:50 PM EDT 05/30/2024 9:47 AM EDT Matias Bowling MD LAB MICROBIOLOGY - GENERAL ORDER MARGARET Final Result Performing Organization Address City/[facility]/ZIP Co de Phone Number [facility] [address] [place] [address], [place] [phone] * Occult blood stool, guaiac (05/29/2024 1:50 PM EDT) Occult Blood, Stool #1 Negative Negative 05/30/2024 9:30 AM EDT [facility] Stool Rectum structure / Unknown Non-blood Collection / Unknown 05/29/2024 1:50 PM EDT 05/30/2024 8:36 AM EDT Matias Bowling MD LAB BODY FLUIDS AND STOOLS ORDER MARGARET Final Result Performing Organization Address [facility]/ZIP Co de Phone Number [facility] [address] [place] [address], [place] [phone] * Ova and parasite examination (05/29/2024 1:50 PM EDT) Ova and Parasite No Ova or Parasite seen. 06/03/2024 10:02 AM EDT [facility] Stool Rectum structure / Unknown Non-blood Collection / Unknown 05/29/2024 1:50 PM EDT 05/30/2024 8:36 AM EDT Narrative [facility] - 06/03/2024 10:02 AM EDT Special test request required for Coccidia and Microsporidia. Matias Bowling MD LAB MICROBIOLOGY - GENERAL ORDER MARGARET Final Result Performing Organization Address [facility]/ZIP Co de Phone Number [facility] [address] [place] [address], [place] [phone] * Clostridium difficile toxin (05/29/2024 1:50 PM EDT) C difficile Toxins A+B, EIA 05/30/2024 9:47 AM EDT [facility] Comment:Refer to C. difficil e PCR assay for results. Stool Rectum structure / Unknown Non-blood Collection / Unknown 05/29/2024 1:50 PM EDT 05/30/2024 8:36 AM EDT Matias Bowling MD LAB MICROBIOLOGY - GENERAL ORDER MARGARET Final Result Performing Organization Address [facility] Co de Phone Number [facility] [address] [place] [address], [place] [phone] documented in this encounter Visit Diagnoses Diagnosis Diarrhea, unspecified documented in this encounter Additional Health Concerns Infection Onset Date Last Indicated Resolved Time C. difficile 05/29/2024 05/29/2024 06/22/2024 7:04 PM EDT C. Diff Rule-Out Infection 05/30/2024 05/29/2024 0 05/30/2024 9:47 AM EDT documented as of this encounter Care Teams Tube Closing Machine Operator Relationship Specialty Start Date End Date Matias Bowling MD [address] [place] [address] [address] [place] [address] PCP - General Family Medicine 04/16/24 documented as of this encounter
--- OUTSIDE RECORDS SUMMARY | 2024-06-30 11:35 | XMS_ITS | Encounter Summary ---
Author Organization [employer] Address [address] [place] [address] [address] [place] [address] Care Team Providers Care Razor Sharpener Name Role Phone Ethel Chase DO Primary Care Provider Vaishnavi Laird PharmD Unavailable [phone] Reason for Visit * Reason Comments Med Refill Encounter Details Date Type Department Care Team (Late st Contact Info) Description 02/07/2022 Refill [facility] MEDICINE [address] [place] [address] Ethel Chase DO [address] [place] [address] Diverticular disease (Primary Dx) Social History Tobacco [...] 3:31 PM EST TC placed to pt [phone] scan showed mild diverticulitis. Pt [...] is requesting medications to be sent to [facility] on [facility] in [facility] she cannot get to [facility] pharmacy before they close. RN will [...] scan results are back yet. RN checked Screwp[employer] system and results not yet available. CT was ordered STAT. RN called [facility] who reports they do not have a journeyman meat cutter on site or Saturday and RN would have to call [place] [facility] at [phone] and speak to Elroy to request results to be read. RN called [phone] however phone rang continuously without an automated recording w/ options ora VM. RN returned call to [facility] to inform them no one answered at [place] [facility] and the phone just kept ringing. [facility] confirmed the number is correct and reports they will send a message to [place] [facility] to ask them to interpret the CT scan. RN will check before end of the day for interpretation report. * Telephone Encounter - Arcelia Wylie - 02/08/2022 2:07 PM EST Tc from [facility] requesting lab ordered be refaxed, marketing underwriter refaxed to [phone] * Telephone Encounter - Ethel Chase DO [...] documented as of this encounter Care Teams Razor Sharpener Relationship Specialty Start Date End Date Ethel Chase DO [address] [place] [address] PCP - General Family Medicine 10/12/13 Vaishnavi Laird PharmD [address] [place] [address] Pharmacist Internal Medicine 02/07/23 [id number] 06/11/24 documented as of this encounter
--- OUTSIDE RECORDS SUMMARY | 2024-06-30 11:35 | XMS_ITS | Encounter Summary ---
Author Organization [facility] Address [address] [place] [address] Care Team Providers Care Res Habilitation Assistant Name Role Phone Matias Bowling MD Primary Care Provider [phone] Encounter Details Date Type Department Care Team (Late st Contact Info) Description 04/29/2024 Lab Requisition [facility] - Main Lab [address] [place] [address] Matias Bowling MD 38 [place] [address] [place], [address] Hyperlipidemia, unspecified; 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 classified [...] LAB CHEMISTRY METHOD 04/29/2024 2:49 PM EST [facility] Potassium 4.5 3.5 - 5.5 mmol/L LAB CHEMISTRY METHOD 04/29/2024 2:49 PM [facility] Chloride 111(H) 96 - 110 mmol/L LAB CHEMISTRY METHOD 04/29/2024 2:49 PM [facility] CO2 23 21 - 32 mmol/L LAB CHEMISTRY METHOD 04/29/2024 2:49 PM [facility] Anion Gap 8 3 - 11 LAB CHEMISTRY METHOD 04/29/2024 2:49 PM [facility] Glucose 118(H) 70 - 100 mg/dL LAB CHEMISTRY METHOD 04/29/2024 2:49 PM [facility] BUN 18 5 - 25 mg/dL LAB CHEMISTRY METHOD 04/29/2024 2:49 PM [facility] Creatinine 0.94 0.50 - 1.10 mg/dL LAB CHEMISTRY METHOD 04/29/2024 2:49 PM [facility] eGFR 66 >=60 mL/min/1. 73m2 LAB CHEMISTRY METHOD 04/29/2024 2:49 PM [facility] Comment:Calculation based on the??Chronic Kidney Disease Epidemiology Collaboration (CKD-EPI) equation refit??without adjustment for race. BUN/Creatinine Ratio 19.1 LAB CHEMISTRY METHOD 04/29/2024 2:49 PM [facility] Calcium 9.2 8.5 - 10.5 mg/dL LAB CHEMISTRY METHOD 04/29/2024 2:49 PM [facility] AST (SGOT) 21 10 - 42 unit/L LAB CHEMISTRY METHOD 04/29/2024 2:49 PM [facility] ALT (SGPT) 24 10 - 60 unit/L LAB CHEMISTRY METHOD 04/29/2024 2:49 PM [facility] Alkaline Phosphatase 170(H) 42 - 121 unit/L LAB CHEMISTRY METHOD 04/29/2024 2:49 PM [facility] Total Protein 6.9 6.0 - 8.0 g/dL LAB CHEMISTRY METHOD 04/29/2024 2:49 PM [facility] Albumin 3.2 3.2 - 5.0 g/dL LAB CHEMISTRY METHOD 04/29/2024 2:49 PM [facility] Total Bilirubin 0.3 0.0 - 1.4 mg/dL LAB CHEMISTRY METHOD 04/29/2024 2:49 PM [facility] Blood Venous blood specimen / Unknown Venipuncture / Unknown 04/29/2024 6:35 AM EST 04/29/2024 10:01 AM EST us Matias Bowling MD LAB BLOOD ORDERABLES Final Resul t [facility] [address] [place] [address], * (ABNORMAL) Complete blood count (04/29/2024 6:35 AM EST) WBC 9.6 4.8 - 10.8 K/mcL LAB HEMETOLOGY METHOD 04/29/2024 11:28 AM [facility] RBC 3.70(L) 3.80 - 4.80 M/[facility] LAB HEMETOLOGY METHOD 04/29/2024 11:28 AM [facility] Hemoglobin 9.9(L) 11.5 - 16.0 g/dL LAB HEMETOLOGY METHOD 04/29/2024 11:28 AM [facility] Hematocrit 32.0(L) 35.0 - 47.0 % LAB HEMETOLOGY METHOD 04/29/2024 11:28 AM [facility] MCV 87.0 79.0 - 98.0 FL LAB HEMETOLOGY METHOD 04/29/2024 11:28 AM [facility] MCH 26.9(L) 27.0 - 32.0 pcg LAB HEMETOLOGY METHOD 04/29/2024 11:28 AM [facility] MCHC 30.9(L) 32.0 - 37.0 g/dL LAB HEMETOLOGY METHOD 04/29/2024 11:28 AM [facility] RDW 14.6 11.0 - 15.0 % LAB HEMETOLOGY METHOD 04/29/2024 11:28 AM [facility] Platelets 358 130 - 400 K/mcL LAB HEMETOLOGY METHOD 04/29/2024 11:28 AM [facility] MPV 10.0 7.0 - 11.0 FL LAB HEMETOLOGY METHOD 04/29/2024 11:28 AM [facility] NRBC 0.0 <1.0 % LAB HEMETOLOGY METHOD 04/29/2024 11:28 AM [facility] NRBC Absolute 0.00 <0.10 K/mcL LAB HEMETOLOGY METHOD 04/29/2024 11:28 AM [facility] Blood Venous blood specimen / Unknown Venipuncture / Unknown 04/29/2024 6:35 AM EST 04/29/2024 10:01 AM EST us Matias Bowling MD LAB BLOOD ORDERABLES Final Resul t [facility] [address] [place] [address], documented in this encounter Visit Diagnoses Diagnosis [...] documented as of this encounter Care Teams Res Habilitation Assistant Relationship Specialty Start Date End Date Matias Bowling MD [address] [place] [phone] PCP - General Family Medicine 04/16/24 documented as of this encounter
--- OUTSIDE RECORDS SUMMARY | 2024-06-30 11:35 | XMS_ITS | Encounter Summary ---
Author Organization [facility] Address [address] [place] [phone] Care Team Providers Care Vegetable Vendor Name Role Phone Matias Bowling MD Primary Care Provider [phone] Encounter Details Date Type Department Care Team (Late st Contact Info) Description 06/10/2024 Lab Requisition [facility] - Main Lab 299 [facility] [place] [address] Matias Bowling MD 38 [facility] 204 [facility] [address] Essential (primary) hypertension Social History [...] documented as of this encounter Care Teams Vegetable Vendor Relationship Specialty Start Date End Date Matias Bowling MD 38 [facility] [address] [place] [address] PCP - General Family Medicine 04/16/24 documented as of this encounter
--- OUTSIDE RECORDS SUMMARY | 2024-06-30 11:35 | XMS_ITS | Encounter Summary ---
Author Organization [employer] Address [address] [place] [address] 7[address] [place] [address] Care Team Providers Care Aquatic Ecologist Name Role Phone Ethel Chase DO Primary Care Provider [phone] Vaishnavi Laird PharmD Unavailable [phone] Reason for Visit * Reason Onset Date Comments Freestyle padmini 2 06/11/2024 Encounter Details Date Type Department Care Team (Late st Contact Info) Description 06/11/2024 Telephone [facility] MEDICINE [address] [place] [address] Ethel Chase DO [address] [place] [address] Freestyle padmini 2 Social History Tobacco Use Types Packs/Day Years [...] Telephone Encounter - Susan Guillaume RN - 06/25/2024 3:32 PM EDT RN called [facility] pharmacy who confirmed CGM padmini 2 reader PA has been approved and is processing witha $0 copay. TC placed to patient [phone] to inform she can p/u her padmini 2 reader replacement at [facility] pharmacy. Patient verbalized understanding. Patient to f/u PRN. * Telephone Encounter - Susan Guillaume RN - 06/11/2024 3:25 PM EDT Continuous Glucose Monitor Prior Authorization Documentation: CGM PA initiated for: Freestyle padmini 2 reader Insurance: CCA PA form completed and faxed to [phone]. Patient's preferred pharmacy: [facility] - [address] 230 [facility] [address] CGM PA should be approved by: 06/25/2024 Patient lost CGM reader, does not need teaching appointment. Last reader p/u 01/2023. * Telephone Encounter - Susan Guillaume RN - 06/11/2024 3:08 PM EDT RN received PA request for freestyle padmini 2 reader. Per chart review, patient is active with CGM use. RN called [facility] pharmacy who confirms RX for freestyle padmini 2 was p/u in 01/2023 and insurance only covers one reader q5 years. TC placed to patient [phone] to inquire if patient has reader. Patient reports she lost her reader, since she came home from rehab she cannot locate it. Patient confirms she has a onetouch glucometer at home however needs test strips. RN advised patient new reader may not get approved as insurances usually only cover 1 reader q5 years however RN will attempt to request new reader thru insurance. Patient advised RN will pend test strips to provider in order for patient to check BS at home. Patient verbalized understanding. Patient to f/u PRN. documented in this encounter Plan of Treatment [...] documented as of this encounter Care Teams Aquatic Ecologist Relationship Specialty Start Date End Date Ethel Chase DO [address] [place] [address] PCP - General Family Medicine 10/12/13 Puia, Vaishnavi, PharmD [address] [place] [address] Pharmacist Internal Medicine 02/07/23 [id number] 06/11/24 documented as of this encounter
--- OUTSIDE RECORDS SUMMARY | 2024-06-30 11:35 | XMS_ITS | Encounter Summary ---
Author Organization [facility] Address [address] [place] [phone] Care Team Providers Care Photo Finisher Name Role Phone Matias Bowling MD Primary Care Provider [phone] Encounter Details Date Type Department Care Team (Late st Contact Info) Description 04/28/2024 Lab Requisition [facility] - Main Lab [address] [facility] [place] [address] Matias Bowling MD 38 [facility] 204 [facility] [address] Diarrhea, unspecified Social History Tobacco [...] as of this encounter Care Teams Photo Finisher Relationship Specialty Start Date End Date Matias Bowling MD 38 [facility] [address] [place] [phone] PCP - General Family Medicine 04/16/24 documented as of this encounter
--- OUTSIDE RECORDS SUMMARY | 2024-06-30 11:35 | XMS_ITS | Encounter Summary ---
Author Organization [employer] Address [address] [facility] 7t [place] [address] Care Team Providers Care Sales Floor Associate Name Role Phone ManuelEthel perry Primary Care Provider [phone] Vaishnavi Laird PharmD Unavailable [phone] Reason for Visit * Reason Comments Med Refill Encounter Details Date Type Department Care Team (Late st Contact Info) Description 02/02/2023 Refill [facility] MEDICINE [address] [place], [place] [phone] Sadie Rivera, ANP [address] [place] [address] Type 2 diabetes mellitus with other specified complication, unspecified whether long term care pharmacist insulin use ([facility]) Social History Tobacco Use Types Packs/Day Years [...] mellitus with other specified complication, unspecified whether fdc insulin use ([facility]) documented in this encounter Additional Health Concerns Assessment Noted Time PHQ-9 Depression Total Score: 0 02/08/20 22 10:43 AM EST documented as of this encounter Care Teams Sales Floor Associate Relationship Specialty Start Date End Date Ethel Chase DO [address] [place] [address] PCP - General Family Medicine 10/12/13 Vaishnavi Laird PharmD [address] [place] [address] Pharmacist Internal Medicine 02/07/23 [id number] 06/11/24 documented as of this encounter
--- OUTSIDE RECORDS SUMMARY | 2024-06-30 11:35 | XMS_ITS | Encounter Summary ---
Author Organization [facility] Address [address] [place] [address] Care Team Providers Care Metal Milling Machine Operator Name Role Phone Matias Bowling MD Primary Care Provider [phone] Encounter Details Date Type Department Care Team (Late st Contact Info) Description 04/30/2024 Lab Requisition [facility] - Main Lab [address] [place] [address] Matias Bowling MD [address] [facility] [address] [place], [phone] Essential (primary) hypertension Social History Tobacco [...] LAB CHEMISTRY METHOD 05/01/2024 12:26 PM EST [facility] Potassium 4.7 3.5 - 5.5 mmol/L LAB CHEMISTRY METHOD 05/01/2024 12:26 PM EST [facility] Chloride 110 96 - 110 mmol/L LAB CHEMISTRY METHOD 05/01/2024 12:26 PM [facility] CO2 21 21 - 32 mmol/L LAB CHEMISTRY METHOD 05/01/2024 12:26 PM [facility] Anion Gap 11 3 - 11 LAB CHEMISTRY METHOD 05/01/2024 12:26 PM [facility] Glucose 138(H) 70 - 100 mg/dL LAB CHEMISTRY METHOD 05/01/2024 12:26 PM [facility] BUN 18 5 - 25 mg/dL LAB CHEMISTRY METHOD 05/01/2024 12:26 PM [facility] Creatinine 1.07 0.50 - 1.10 mg/dL LAB CHEMISTRY METHOD 05/01/2024 12:26 PM [facility] eGFR 57(L) >=60 mL/min/1. 73m2 LAB CHEMISTRY METHOD 05/01/2024 12:26 PM [facility] Comment:Calculation based on the??Chronic Kidney Disease Epidemiology Collaboration (CKD-EPI) equation refit??without adjustment for race. BUN/Creatinine Ratio 16.8 LAB CHEMISTRY METHOD 05/01/2024 12:26 PM [facility] Calcium 9.3 8.5 - 10.5 mg/dL LAB CHEMISTRY METHOD 05/01/2024 12:26 PM [facility] Blood Venous blood specimen / Unknown Venipuncture / Unknown 05/01/2024 4:57 AM EST 05/01/2024 11:00 AM EST us Matias Bowling MD LAB BLOOD ORDERABLES Final Resul t [facility] [address] [place] [address], * (ABNORMAL) Complete blood count (05/01/2024 4:57 AM EST) WBC 9.9 4.8 - 10.8 K/mcL LAB HEMETOLOGY METHOD 05/01/2024 11:34 AM [facility] RBC 3.50(L) 3.80 - 4.80 M/mcL LAB HEMETOLOGY METHOD 05/01/2024 11:34 AM [facility] Hemoglobin 9.3(L) 11.5 - 16.0 g/dL LAB HEMETOLOGY METHOD 05/01/2024 11:34 AM [facility] Hematocrit 31.7(L) 35.0 - 47.0 % LAB HEMETOLOGY METHOD 05/01/2024 11:34 AM [facility] MCV 90.3 79.0 - 98.0 FL LAB HEMETOLOGY METHOD 05/01/2024 11:34 AM [facility] MCH 26.5(L) 27.0 - 32.0 pcg LAB HEMETOLOGY METHOD 05/01/2024 11:34 AM [facility] MCHC 29.3(L) 32.0 - 37.0 g/dL LAB HEMETOLOGY METHOD 05/01/2024 11:34 AM [facility] RDW 14.7 11.0 - 15.0 % LAB HEMETOLOGY METHOD 05/01/2024 11:34 AM [facility] Platelets 312 130 - 400 K/mcL LAB HEMETOLOGY METHOD 05/01/2024 11:34 AM [facility] MPV 10.3 7.0 - 11.0 FL LAB HEMETOLOGY METHOD 05/01/2024 11:34 AM [facility] NRBC 0.0 <1.0 % LAB HEMETOLOGY METHOD 05/01/2024 11:34 AM [facility] NRBC Absolute 0.00 <0.10 K/mcL LAB HEMETOLOGY METHOD 05/01/2024 11:34 AM [facility] Blood Venous blood specimen / Unknown Venipuncture / Unknown 05/01/2024 4:57 AM EST 05/01/2024 11:00 AM EST us Matias Bowling MD LAB BLOOD ORDERABLES Final Resul t [facility] [address] [place] [address], documented in this encounter Visit Diagnoses Diagnosis Essential (primary) hypertension Unspecified essential hypertension documented in this encounter Additional Health Concerns Infection Onset Date Last Indicated Resolved Time Gastrointestinal Rule-Out 04/28/2024 04/27/2024 7:06 PM EDT C. difficile 05/29/2024 05/29/2024 06/22/2024 7:04 PM EDT C. Diff Rule-Out Infection 05/30/2024 05/29/2024 0 05/30/2024 9:47 AM EDT documented as of this encounter Care Teams Metal Milling Machine Operator Relationship Specialty Start Date End Date Matias Bowling MD [address] [place] [address] [place] [address] PCP - General Family Medicine 04/16/24 documented as of this encounter
--- OUTSIDE RECORDS SUMMARY | 2024-06-30 11:35 | XMS_ITS | Clinical Summary ---
Author Organization [address] Address [address] [place] [address] Phone Care Team Providers Care Healthcare Administration Intern Name Role Phone Matias Bowling MD Primary Care Provider [phone] Encounters Date Type Department Care Team Description 06/10/2024 Lab Requisition [facility] [address] [place] [phone] Matias Bowling MD Essential (primary) hypertension 06/03/2024 Lab Requisition [facility] [address] [place] [phone] Matias Bowling MD Essential (primary) hypertension 05/30/2024 Lab Requisition [facility] [address] [place] [phone] Matias Bowling MD Diarrhea, unspecified 05/27/2024 Lab Requisition [facility] [address] [place] [phone] Matias Bowling MD Essential (primary) hypertension 05/22/2024 Lab Requisition [facility] [address] [place] [phone] Matias Bowling MD 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 classified elsewhere (CMS/HCC V24, CMS/HCC V28); Hyperlipidemia, unspecified 05/20/2024 Lab Requisition [facility] [address] [place] [address] Matias Bowling MD Essential (primary) hypertension 05/13/2024 Lab Requisition [facility] [address] [place] [address] Matias Bowling MD Essential (primary) hypertension 05/06/2024 Lab Requisition [facility] Lab [address] [place] [address] Matias Bowling MD Essential (primary) hypertension 04/30/2024 Lab Requisition [facility] [address] [place] [address] Matias Bowling MD Essential (primary) hypertension 04/29/2024 Lab Requisition [facility] [address] [place] [address] Matias Bowling MD Essential (primary) hypertension 04/29/2024 Lab Requisition [facility] Main Lab [address] [place] [phone] Matias Bowling MD Hyperlipidemia, unspecified; 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 classified elsewhere (CMS/HCC V24, CMS/HCC V28) 04/28/2024 Lab Requisition [facility] Main Lab [address] [place] [phone] Matias Bowling MD Diarrhea, unspecified 04/23/2024 Lab Requisition [facility] Main Lab [address] [place] [address] Matias Bowling MD Essential (primary) hypertension 04/16/2024 Lab Requisition [facility] [address] [place] [phone] Matias Bowling MD Essential (primary) hypertension from [...] COVID-19 Vaccine (1 - 2023- season) 2023 Cholesterol Screening (Lipid Panel) 04/16/2024 Depression Screening 04/16/2024 Falls Risk Assessment 04/16/2024 Hepatitis C Screening 04/16/2024 Medicare Annual Wellness Visit 04/16/2024 Osteoporosis Screening (Bone Density Screening) 04/16/2024 Social Influencers of Health Screening 04/16/2024 Influenza Vaccine (Season Ended) 2024 Colorectal Cancer Screening: Stool Based Tests (FOBT/FIT) 05/29/2025 05/29/2024 Hypertension/CHF/CAD Annual BMP Blood Test 06/04/2025 06/04/2024, 05/28/2024, 05/22/2024, Additional history exists RSV Immunization Adult Patients (1 - 1-dose [...] Associated Diagnosis Comments COMPREHENSIVE METABOLIC PANEL Routine 06/04/2024 5:45 AM EDT Essential (primary) hypertension COMPLETE BLOOD COUNT Routine 06/04/2024 5:45 AM EDT Essential (primary) hypertension OCCULT BLOOD STOOL, GUAIAC Routine 05/29/2024 1:50 [...] Months Results * (ABNORMAL) Complete blood count (06/04/2024 5:45 AM EDT) Only the most recent of10 resultswithin the time period is included. WBC 12.1(H) 4.8 - 10.8 K/mcL LAB HEMETOLOGY METHOD 06/04/2024 11:21 AM [facility] RBC 3.50(L) 3.80 - 4.80 M/mcL LAB HEMETOLOGY METHOD 06/04/2024 11:21 AM [facility] Hemoglobin 9.1(L) 11.5 - 16.0 g/dL LAB HEMETOLOGY METHOD 06/04/2024 11:21 AM [facility] Hematocrit 29.5(L) 35.0 - 47.0 % LAB HEMETOLOGY METHOD 06/04/2024 11:21 AM [facility] MCV 85.0 79.0 - 98.0 FL LAB HEMETOLOGY METHOD 06/04/2024 11:21 AM EDT [facility] MCH 26.2(L) 27.0 - 32.0 pcg LAB HEMETOLOGY METHOD 06/04/2024 11:21 AM EDT [facility] MCHC 30.8(L) 32.0 - 37.0 g/dL LAB HEMETOLOGY METHOD 06/04/2024 11:21 AM EDT [facility] RDW 14.9 11.0 - 15.0 % LAB HEMETOLOGY METHOD 06/04/2024 11:21 AM EDT [facility] Platelets 309 130 - 400 K/mcL LAB HEMETOLOGY METHOD 06/04/2024 11:21 AM [facility] MPV 10.0 7.0 - 11.0 FL LAB HEMETOLOGY METHOD 06/04/2024 11:21 AM EDT [facility] NRBC 0.0 <1.0 % LAB HEMETOLOGY METHOD 06/04/2024 11:21 AM [facility] NRBC Absolute 0.00 <0.10 K/mcL LAB HEMETOLOGY METHOD 06/04/2024 11:21 AM [facility] Blood Venous blood specimen / Unknown Venipuncture / Unknown 06/04/2024 5:45 AM EDT 06/04/2024 11:02 AM EDT us Matias Bowling MD LAB BLOOD ORDERABLES Final Resul t [facility] [address] [place] [address], * (ABNORMAL) Comprehensive metabolic panel (06/04/2024 5:45 AM EDT) Only the most recent of8 resultswithin the time period is included. Sodium 139 133 - 145 mmol/L LAB CHEMISTRY METHOD 06/04/2024 11:53 AM [facility] Potassium 4.5 3.5 - 5.5 mmol/L LAB CHEMISTRY METHOD 06/04/2024 11:53 AM [facility] Chloride 102 96 - 110 mmol/L LAB CHEMISTRY METHOD 06/04/2024 11:53 AM [facility] CO2 29 21 - 32 mmol/L LAB CHEMISTRY METHOD 06/04/2024 11:53 AM [facility] Anion Gap 8 3 - 11 LAB CHEMISTRY METHOD 06/04/2024 11:53 AM [facility] Glucose 159(H) 70 - 100 mg/dL LAB CHEMISTRY METHOD 06/04/2024 11:53 AM [facility] BUN 11 5 - 25 mg/dL LAB CHEMISTRY METHOD 06/04/2024 11:53 AM [facility] Creatinine 1.11(H) 0.50 - 1.10 mg/dL LAB CHEMISTRY METHOD 06/04/2024 11:53 AM [facility] eGFR 54(L) >=60 mL/min/1. 73m2 LAB CHEMISTRY METHOD 06/04/2024 11:53 AM [facility] Comment:Calculation based on the??Chronic Kidney Disease Epidemiology Collaboration (CKD-EPI) equation refit??without adjustment for race. BUN/Creatinine Ratio 9.9 LAB CHEMISTRY METHOD 06/04/2024 11:53 AM [facility] Calcium 9.0 8.5 - 10.5 mg/dL LAB CHEMISTRY METHOD 06/04/2024 11:53 AM [facility] AST (SGOT) 16 10 - 42 unit/L LAB CHEMISTRY METHOD 06/04/2024 11:53 AM [facility] ALT (SGPT) 17 10 - 60 unit/L LAB CHEMISTRY METHOD 06/04/2024 11:53 AM [facility] Alkaline Phosphatase 144(H) 42 - 121 unit/L LAB CHEMISTRY METHOD 06/04/2024 11:53 AM EDT [facility] Total Protein 6.7 6.0 - 8.0 g/dL LAB CHEMISTRY METHOD 06/04/2024 11:53 AM EDT [facility] Albumin 3.2 3.2 - 5.0 g/dL LAB CHEMISTRY METHOD 06/04/2024 11:53 AM EDT [facility] Total Bilirubin 0.2 0.0 - 1.4 mg/dL LAB CHEMISTRY METHOD 06/04/2024 11:53 AM EDT [facility] Blood Venous blood specimen / Unknown Venipuncture / Unknown 06/04/2024 5:45 AM EDT 06/04/2024 11:02 AM EDT Matias Bowling MD LAB BLOOD ORDERABLES Final Resul t Performing Organization Address City/[facility]/ZIP Co de Phone Number [facility] [address] [place] [address], [place] [phone] * Occult blood stool, guaiac (05/29/2024 1:50 PM EDT) Occult Blood, Stool #1 Negative Negative 05/30/2024 9:30 AM EDT [facility] Stool Rectum structure / Unknown Non-blood Collection / Unknown 05/29/2024 1:50 PM EDT 05/30/2024 8:36 AM EDT us Matias Bowling MD LAB BODY FLUIDS AND STOOLS ORDER MARGARET Final Result [facility] [address] [place] [address], [place] [phone] * Ova and parasite examination (05/29/2024 1:50 [...] ORDER MARGARET Final Result Performing Organization Address [facility] Co de Phone Number [facility] [address] [place] [address], [place] [phone] * (ABNORMAL) Clostridium difficile molecular study (05/29/2024 [...] ORDER MARGARET Final Result Performing Organization Address [facility]/ZIP Co de Phone Number [facility] [address] [place] [address], [place] [phone] * Clostridium difficile toxin (05/29/2024 1:50 PM EDT) C difficile Toxins A+B, EIA 05/30/2024 9:47 AM EDT [facility] Comment:Refer to C. difficil e PCR assay for results. Stool Rectum structure / Unknown Non-blood Collection / Unknown 05/29/2024 1:50 PM EDT 05/30/2024 8:36 AM EDT us Matias Bowling MD LAB MICROBIOLOGY - GENERAL ORDER MARGARET Final Result [facility] [address] [place] [address], * (ABNORMAL) Basic metabolic panel (05/22/2024 8:23 AM EDT) Only the most recent of2 resultswithin the time period is included. Sodium 134 133 - 145 mmol/L LAB CHEMISTRY METHOD 05/22/2024 11:37 AM [facility] Potassium 5.2 3.5 - 5.5 mmol/L LAB CHEMISTRY METHOD 05/22/2024 11:37 AM [facility] Chloride 102 96 - 110 mmol/L LAB CHEMISTRY METHOD 05/22/2024 11:37 AM [facility] CO2 25 21 - 32 mmol/L LAB CHEMISTRY METHOD 05/22/2024 11:37 AM [facility] Anion Gap 7 3 - 11 LAB CHEMISTRY METHOD 05/22/2024 11:37 AM [facility] Glucose 163(H) 70 - 100 mg/dL LAB CHEMISTRY METHOD 05/22/2024 11:37 AM [facility] BUN 18 5 - 25 mg/dL LAB CHEMISTRY METHOD 05/22/2024 11:37 AM [facility] Creatinine 1.65(H) 0.50 - 1.10 mg/dL LAB CHEMISTRY METHOD 05/22/2024 11:37 AM [facility] eGFR 34(L) >=60 mL/min/1. 73m2 LAB CHEMISTRY METHOD 05/22/2024 11:37 AM [facility] Comment:Calculation based on the??Chronic Kidney Disease Epidemiology Collaboration (CKD-EPI) equation refit??without adjustment for race. BUN/Creatinine Ratio 10.9 LAB CHEMISTRY METHOD 05/22/2024 11:37 AM EDT [facility] Calcium 8.8 8.5 - 10.5 mg/dL LAB CHEMISTRY METHOD 05/22/2024 11:37 AM EDT [facility] Blood Venous blood specimen / Unknown Venipuncture / Unknown 05/22/2024 8:23 AM EDT 05/22/2024 10:31 AM EDT us Matias Bowling MD LAB BLOOD ORDERABLES Final Resul t [facility] ([facility] [address] [place] [address], from Last [address] [facility] MEDICARE Member Subscriber Plan / Payer (Ef fective 2022-Present) Name:Trish Hunter Relation to Subscriber:Self Name:Trish Hunter Payer ID:[id number] Group ID:[id number] Type:Not on file Address: [place] [address] [address] [id number] Care Teams Healthcare Administration Intern Relationship Specialty Start Date End Date Matias Bowling MD [address] [place] [phone] PCP - General Family Medicine 04/16/24
[2024-06-30 12:28] LABS: Folate 15.3 ng/mL (> or = 4.0); Vitamin B12 216 pg/mL (200-900)
[2024-06-30 19:11] LABS: Alanine Aminotransferase 22 U/L (0-31); Albumin Level 4.3 g/dL (3.5-5.0); Alkaline Phosphatase 137 U/L (39-117); Anion Gap 13 (12-20); Aspartate Amino Transferase 27 U/L (5-31); Bilirubin Direct 0.1 mg/dL (0.0-0.5); Bilirubin Total 0.3 mg/dL (0.0-1.0); Blood Urea Nitrogen 15 mg/dL (9-16); Calcium 9.9 mg/dL (8.4-10.2); Carbon Dioxide 25 mmol/L (22-29); Chloride 104 mmol/L (96-108); Cholesterol 113 mg/dL (<200); Estimated Glomerular Filt Rate 52; Ferritin 46 ng/mL (10-250); Free T4 (Free Thyroxine) 1.04 ng/dL (0.71-1.85); Glucose Random 143 mg/dL (60-115); HDL Cholesterol 42 mg/dL (>40); Iron 34 mcg/dL (30-160); LDL Cholesterol Calculated 46 mg/dL (<100); Percent Iron Saturation 11 % (15-50); Potassium 4.3 mmol/L (3.3-5.1); Sodium 138 mmol/L (135-145); Thyroid Stimulating Hormone 3.09 uIU/mL (0.32-4.0); Total Iron Binding Capacity 306 mcg/dL (228-428); Triglycerides 126 mg/dL (<150); Unsaturated Iron Binding 272 ug/dL; Vitamin D 25-OH Total 52.5 ng/mL (>30)
== END 2024-06-30 10:08 | disposition home or self-care (01) ==
LOC: HO.HHCL 10:07
PROVIDERS: Visit Provider Family Medicine
DX: E11.9 Type 2 diabetes mellitus without complications (principal); I10 Essential (primary) hypertension; A04.72 Enterocolitis due to Clostridium difficile, not specified as recurrent; Z96.652 Presence of left artificial knee joint; S72.402D Unspecified fracture of lower end of left femur, subsequent encounter for closed fracture with routine healing
CPT/HCPCS: 36415; 80048; 80061; 80076; 82306; 82607; 82728; 82746; 83036; 83540; 84439; 84443; 85025; 85027

== ENCOUNTER 2024-07-16 11:21 | Outpatient (AMB) | payer OTHER, SELFPAY ==
--- NOTE | 2024-07-16 11:33 | MHC.OFFVIS ---
Intake Visit Reasons: OV-f/u LT rev TKA/femur fx w xrays Intake Note: Trish is a 68 year old female who presents today for a post operative appointment of Left Total Knee Arthroplasty Revision 03/24/2024, status post fall on 04/22/2023 resulting in a periprosthetic fracture. At her last visit was instructed to continue to nonweightbear of the left lower extremity, use the brace when up and ambulating, and continue to work on range of motion and quad exercises. Follow up in 6-8 weeks with x-rays. Today patient reports --. Clock Repair Technician Required: Yes Clock Repair Technician Services: Clock Repair Technician Present Clock Repair Technician Name: des winston Information Interpreted: non-clinical & clinical Allergies Iodinated Contrast Media [IV CONTRAST] Allergy (Severe, Verified 07/16/24 11:42) itching, hives morphine [Morphine] Allergy (Intermediate, Verified 07/16/24 11:42) ITCHING, rash tramadol [Ultram] Allergy (Intermediate, Verified 07/16/24 11:42) rash, itching Medication List - Last Reconciled 07/16/24 by Khushi Mathias PA-C acetaminophen 650 mg (2 x 325 mg) PO Q6H PRN 30 days albuterol sulfate 90 mcg/actuation 2 puffs inhalation Q6H PRN aripiprazole 10 mg PO QAM atorvastatin 20 mg PO BEDTIME baclofen 10 mg PO TID PRN blood sugar diagnostic (FreeStyle Lite Strips) As directed celecoxib 200 mg PO BID 30 days cholecalciferol (vitamin D3) 50 mcg PO QPM clotrimazole-betamethasone 1-0.05 % 1 appl topical BID 7 days docusate sodium 100 mg PO BID 30 days enoxaparin 40 mg (0.4 mL) subcut Q24H 42 days fluticasone propion-salmeterol 115-21 mcg/actuation (Advair HFA) 2 puffs inhalation BID PRN fluticasone propionate 50 mcg/actuation 1 spray intranasal BID gabapentin 600 mg PO BID insulin degludec (Tresiba FlexTouch U-100 insulin) 32 units subcut DAILY isosorbide mononitrate ER 30 mg PO DAILY lancets (TRUEplus Lancets) As directed latanoprost 0.005% 1 drp ophthalmic (eye) BEDTIME levothyroxine 112 mcg PO DAILY loratadine 10 mg PO QAM lorazepam 1 mg PO BID PRN metformin 500 mg PO BID metoprolol succinate ER 25 mg PO QAM mirtazapine 15 mg PO BEDTIME vdecszvpzcnx-rcdk-aenrj acid 18-400 mg-mcg (Tab-A-Rito Multivitamin w-iron) 1 tab PO QAM oxycodone 5 mg PO Q6H PRN oxycodone 5 mg PO Q6H PRN 7 days pantoprazole 40 mg PO QAM prazosin 4 mg PO BEDTIME semaglutide (Ozempic) 2 mg subcut MO venlafaxine ER 150 mg PO QAM venlafaxine ER 75 mg PO QAM walker Folding Front wheeled walker DURATIO 99 DAYS zolpidem 10 mg PO BEDTIME HPI HPI OV-f/u LT rev TKA/femur fx w xrays: Details: 68-year-old female returns to the office today status post revision left total knee arthroplasty date of surgery 03/24/2024 which was complicated by a periprosthetic fracture, date of injury 04/12/2024. We have treated this nonoperatively with nonweightbearing left lower extremity. She has maintain her range of motion in his doing quite well today. [facility] Medical History Arthritis Hypothyroidism Renal calculi Environmental and seasonal allergies Nocturnal hypoxia Abnormal nuclear stress test Diabetes HTN (hypertension) Cardiomyopathy Bilateral nephrolithiasis Retention of urine Acid reflux Surgical History Status post total left knee replacement History of total left knee replacement (TKR) Hx of lithotripsy (2018) History of total right knee replacement (2011) Hx of repair of right rotator cuff (2013) History of cystoscopy Hx of tubal ligation History of hand surgery Family History Brother Breast cancer Social History Household Members: Spouse Household Members Other:: lives w/her grandson Housing: House Are you a primary urgent care physician assistant to a significant other at home: Yes (grandson 17 yrs) Do you presently have visiting nurse or other home services: No 75 years or older and lives alone: No Alcohol intake: current Alcohol intake frequency: does not drink Comment: post op left knee, WBAT Patient Tobacco Use Status: Never used Tobacco Advance Directives Date on File: 04/14/24 service: No Current occupational status: disabled Current occupation: rt handed Gender identity: Female Female Reproductive History Menstrual Age of Menarche: 12 Review of Systems Const All systems reviewed & are unremarkable except as noted in HPI and below Physical Exam Extrem Other: Left knee incision is well healed. There is no erythema or joint effusion. Range of motion is 0-95 degrees. Mild tenderness around the medial and lateral joint line Calf is supple and nontender Neurovascularly intact Results Reviewed Results Reviewed: X-rays of the left knee obtained in the office today reviewed by me show a periprosthetic left femur fracture with interval healing. Prosthesis appears to be intact. Assessment & Plan Assessment & Plan (1) Periprosthetic fracture around internal prosthetic left knee joint, initial encounter: Code(s): M97.12XA - Periprosthetic fracture around internal prosthetic left knee joint, initial encounter Category: Medical (2) Status post revision of total replacement of left knee: Code(s): Z96.652 - Presence of left artificial knee joint Category: Surgical Plan Images were reviewed with Dr. Oro in the office today. I explained to the patient given she is 3 months from her fall, we can begin slowly weightbearing as tolerated with a walker at all times. She was fit for a playmaker knee brace to give her stability while she is ambulating. Brace does not need to be worn when she is at rest. I did place an order for home VNA services to work with physical therapy/occupational therapy. This should include range of motion of the knee, gait training, quad exercises and ADLs. She has been nonweightbearing for 3 months and is unable to drive making her homebound. I would like to see her back in 6 weeks with new x-rays. I did explain if she has any worsening symptoms or feels there are concerns with the left knee when she begins weight-bearing she should contact our office right away for further evaluation otherwise follow up as discussed. Orders: Orders XR femur LT 2V Today M79.606 - Pain in leg, unspecified Referrals [facility]/Hospice Referral M97.12XA - Periprosthetic fracture around internal prosthetic left knee joint, initial encounter, Z96.652 - Presence of left artificial knee joint Coding Level of Care Code Est Pt Level 3 (86302) Complex EM visit Add On G2211 Diagnoses Periprosthetic fracture around internal prosthetic left knee joint, initial encounter M97.12XA Status post revision of total replacement of left knee Z96.652
--- OUTSIDE RECORDS SUMMARY | 2024-07-16 11:59 | XMS_ITS | Encounter Summary ---
Author Organization [employer] Address [address] [place] [address] [address] [place] [address] Care Team Providers Care Labview Programmer Name Role Phone Ethel Chase DO Primary Care Provider [phone] Vaishnavi Larid PharmD Unavailable Reason for Visit * Reason Comments Med Refill Encounter Details Date Type Department Care Team (Late Contact Info) Description 06/06/2022 Refill [facility] [address] [place] [address] Ethel Chase DO [address] [place] [address] Other chronic pain Social History Tobacco Use [...] Department Care Team (Late Contact Info) Description 07/29/2024 9:30 AM EDT Medication Management [address] [address] Vaishnavi Laird PharmD [address] [place] [id number] 08/26/2024 9:00 AM EDT Clinical Support [address] [address] Suad Wilson, MARY documented as of this encounter Visit Diagnoses Diagnosis Other chronic pain documented in this encounter Additional Health Concerns Assessment Noted Time PHQ-9 Depression Total Score: 0 02/08/20 22 10:43 AM EST documented as of this encounter Care Teams Labview Programmer Relationship Specialty Start Date End Date Ethel Chase DO [address] [place] [phone] PCP - General Family Medicine 10/12/13 Vaishnavi Laird PharmD [address] [place] [phone] Pharmacist Internal Medicine 02/07/23 [id number] 06/11/24 documented as of this encounter
--- OUTSIDE RECORDS SUMMARY | 2024-07-16 11:59 | XMS_ITS | Encounter Summary ---
Author Organization [email or web address] Address [address] [place] [address] 7t [place] [address] Care Team Providers Care Energy Professional Name Role Phone Ethel Chase DO Primary Care Provider [phone] Vaishnavi Laird PharmD Unavailable [phone] Reason for Visit * Reason Onset Date Comments Hospital Follow-up 06/05/2024 Encounter Details Date Type Department Care Team (Late st Contact Info) Description 06/05/2024 Telephone [facility] [address] [place] [address] Ethel Chase DO [address] [place] [address] Hospital Follow-up Social History Tobacco Use Types [...] from pt requesting a HDF appt. Hospital: [facility] Date of admission: 06/04/24 Discharge date: 04/15/24 Diagnosed: Knee replacement and fall after *Can call pt directly documented in this encounter Plan of Treatment Upcoming Encounters Date Type Department Care Team (Late st Contact Info) Description 07/29/2024 9:30 AM EDT Medication Management [facility] [address] [place] [address] Vaishnavi Laird, PharmD [address] [place] [address] 08/26/2024 9:00 AM EDT Clinical Support [address] [address] Suad Wilson, RN documented as of this encounter Goals Goal [...] documented as of this encounter Care Teams Energy Professional Relationship Specialty Start Date End Date Ethel Chase DO [address] [place] [address] PCP - General Family Medicine 10/12/13 Vaishnavi Laird PharmD [address] [place] [address] Pharmacist Internal Medicine 02/07/23 [id number] 06/11/24 documented as of this encounter
--- OUTSIDE RECORDS SUMMARY | 2024-07-16 11:59 | XMS_ITS | Encounter Summary ---
Author Organization [employer] Address [address] [place] [address] 7t [place] [address] Care Team Providers Care Tennis Ball Coverer Hand Name Role Phone Ethel Chase DO Primary Care Provider [phone] Vaishnavi Laird PharmD Unavailable [phone] Reason for Visit * Reason Onset Date Comments Pre-Op 03/23/2024 Encounter Details Date Type Department Care Team ([facility] st Contact Info) Description 03/23/2024 Telephone [facility] MEDICINE [address] [place] [address] Ethel Chase DO [address] [place] [address] Pre-Op Social History Tobacco Use Types Packs/Day [...] Yes Surgeon's name: Dave Oro Facility name: [facility] Orthopedic Surgeon's office number: [phone] Surgeon's office fax number: [phone] Contact name (person you spoke with): Trish - Pt requesting reschedule 02/13 appt. Last office note from surgeon requested: Yes Send Message to Venus Crowell documented in this encounter Plan of Treatment Upcoming Encounters Date Type Department Care Team (Late st Contact Info) Description 07/29/2024 9:30 AM EDT Medication Management [address] [address] Vaishnavi Laird PharmD [address] [place] [address] 08/26/2024 9:00 AM EDT Clinical Support [address] [address] Suad Wilson, MARY documented as of this encounter Goals Goal Patient Goal Type Associated Problems Recent Progress Patient-Stated? Author Hemoglobin A1c < 7 Result Component 7.5( 10:10 AM EDT) No Vaishnavi Laird PharmD Record your blood sugar as directed Result Component No Vaishnavi Laird PharmD documented as of this encounter Visit Diagnoses Not on filedocumented in this encounter Additional Health Concerns Assessment Noted Time PHQ-9 Depression Total Score: 8 10/18/19 24 11:35 AM EDT documented as of this encounter Care Teams Tennis Ball Coverer Hand Relationship Specialty Start Date End Date Ethel Chase DO [address] [place] [address] PCP - General Family Medicine 10/12/13 Vaishnavi Laird, PharmD [address] [place] [address] Pharmacist Internal Medicine 02/07/23 [id number] 06/11/24 documented as of this encounter
--- OUTSIDE RECORDS SUMMARY | 2024-07-16 11:59 | XMS_ITS | Encounter Summary ---
Author Organization [facility] Address [address] [place] [address] Care Team Providers Care Intermediate Designer Name Role Phone Matias Bowling MD Primary Care Provider [phone] Encounter Details Date Type Department Care Team (Late st Contact Info) Description 05/06/2024 Lab Requisition [facility] - Main Lab [address] [place] [address] Matias Bowling MD 38 [facility] [address] [place], [address] Essential (primary) hypertension Social History Tobacco [...] mmol/L LAB CHEMISTRY METHOD 05/07/2024 10:37 AM [facility] CO2 22 21 - 32 mmol/L LAB CHEMISTRY METHOD 05/07/2024 10:37 AM [facility] Anion Gap 8 3 - 11 LAB CHEMISTRY METHOD 05/07/2024 10:37 AM [facility] Glucose 121(H) 70 - 100 mg/dL LAB CHEMISTRY METHOD 05/07/2024 10:37 AM [facility] BUN 15 5 - 25 mg/dL LAB CHEMISTRY METHOD 05/07/2024 10:37 AM [facility] Creatinine 1.02 0.50 - 1.10 mg/dL LAB CHEMISTRY METHOD 05/07/2024 10:37 AM [facility] eGFR 60 >=60 mL/min/1. 73m2 LAB CHEMISTRY METHOD 05/07/2024 10:37 AM [facility] Comment:Calculation based on the??Chronic Kidney Disease Epidemiology Collaboration (CKD-EPI) equation refit??without adjustment for race. BUN/Creatinine Ratio 14.7 LAB CHEMISTRY METHOD 05/07/2024 10:37 AM [facility] Calcium 9.1 8.5 - 10.5 mg/dL LAB CHEMISTRY METHOD 05/07/2024 10:37 AM [facility] AST (SGOT) 15 10 - 42 unit/L LAB CHEMISTRY METHOD 05/07/2024 10:37 AM [facility] ALT (SGPT) 20 10 - 60 unit/L LAB CHEMISTRY METHOD 05/07/2024 10:37 AM [facility] Alkaline Phosphatase 161(H) 42 - 121 unit/L LAB CHEMISTRY METHOD 05/07/2024 10:37 AM [facility] Total Protein 6.4 6.0 - 8.0 g/dL LAB CHEMISTRY METHOD 05/07/2024 10:37 AM [facility] Albumin 3.1(L) 3.2 - 5.0 g/dL LAB CHEMISTRY METHOD 05/07/2024 10:37 AM EDT [facility] Total Bilirubin 0.2 0.0 - 1.4 mg/dL LAB CHEMISTRY METHOD 05/07/2024 10:37 AM [facility] Blood Venous blood specimen / Unknown Venipuncture / Unknown 05/07/2024 5:12 AM EDT 05/07/2024 8:53 AM EDT us Matias Bowling MD LAB BLOOD ORDERABLES Final Resul t [facility] [address] [place] [address], [place] [phone] * (ABNORMAL) Complete blood count (05/07/2024 5:12 AM EDT) WBC 9.6 4.8 - 10.8 K/mcL LAB HEMETOLOGY METHOD 05/07/2024 10:09 AM [facility] RBC 3.60(L) 3.80 - 4.80 M/mcL LAB HEMETOLOGY METHOD 05/07/2024 10:09 AM [facility] Hemoglobin 9.4(L) 11.5 - 16.0 g/dL LAB HEMETOLOGY METHOD 05/07/2024 10:09 AM [facility] Hematocrit 31.5(L) 35.0 - 47.0 % LAB HEMETOLOGY METHOD 05/07/2024 10:09 AM [facility] MCV 88.2 79.0 - 98.0 FL LAB HEMETOLOGY METHOD 05/07/2024 10:09 AM [facility] MCH 26.3(L) 27.0 - 32.0 pcg LAB HEMETOLOGY METHOD 05/07/2024 10:09 AM [facility] MCHC 29.8(L) 32.0 - 37.0 [...] [facility] [address] [place] [address], documented in this encounter Visit Diagnoses Diagnosis Essential (primary) hypertension Unspecified essential hypertension documented in this encounter Additional Health Concerns Infection Onset Date Last Indicated Resolved Time Gastrointestinal Rule-Out 04/28/2024 04/27/2024 7:06 PM EDT C. difficile 05/29/2024 05/29/2024 06/22/2024 7:04 PM EDT C. Diff Rule-Out Infection 05/30/2024 05/29/2024 0 05/30/2024 9:47 AM EDT documented as of this encounter Care Teams Intermediate Designer Relationship Specialty Start Date End Date Matias Bowling MD [address] [place] [address] PCP - General Family Medicine 04/16/24 documented as of this encounter
--- OUTSIDE RECORDS SUMMARY | 2024-07-16 11:59 | XMS_ITS | Encounter Summary ---
Author Organization [employer] Address [address] [place] [address] 7t [place] [address] Care Team Providers Care Scale Reclamation Tender Name Role Phone Ethel Chase DO Primary Care Provider Vaishnavi Laird PharmD Unavailable [phone] Reason for Visit * Reason Comments Med Refill Encounter Details Date Type Department Care Team ([facility] st Contact Info) Description 06/07/2022 Refill [facility] [address] [place] [address] Ethel Chase DO [address] [place] [address] Other chronic pain Social History Tobacco Use [...] Description 07/29/2024 9:30 AM EDT Medication Management [address] [address] Vaishnavi Laird PharmD [address] [place] [address] 08/26/2024 9:00 AM EDT Clinical Support [facility] [place] [address] Suad Wilson, MARY documented as of this encounter Visit Diagnoses Diagnosis Other chronic pain documented in this encounter Additional Health Concerns Assessment Noted Time PHQ-9 Depression Total Score: 0 02/08/20 22 10:43 AM EST documented as of this encounter Care Teams Scale Reclamation Tender Relationship Specialty Start Date End Date [place] [address] PCP - General Family Medicine 10/12/13 [place]ish[place] [address] Pharmacist Internal Medicine 02/07/23 [id number] 06/11/24 documented as of this encounter
--- OUTSIDE RECORDS SUMMARY | 2024-07-16 11:59 | XMS_ITS | Encounter Summary ---
Author Organization [employer] Address [address] [place] [address] 7t [place] [address] Care Team Providers Care Vessel Liner Name Role Phone Ethel Chase DO Primary Care Provider [phone] Vaishnavi Laird PharmD Unavailable Reason for Visit * Reason Comments Med Refill Encounter Details Date Type Department Care Team ([facility] st Contact Info) Description 03/23/2024 Refill [facility] MEDICINE [address] [place] [address] Ethel Chase DO [address] [place] [address] Other chronic pain Social History Tobacco Use [...] Description 07/29/2024 9:30 AM EDT Medication Management [address] [address] Puia, Vaishnavi, PharmD [address] [place] [address] 08/26/2024 9:00 AM EDT Clinical Support [address] [address] Suad Wilson RN documented as of this encounter Goals [...] documented as of this encounter Care Teams Vessel Liner Relationship Specialty Start Date End Date Ethel Chase DO [address] [place] [address] PCP - General Family Medicine 10/12/13 Vaishnavi Laird, Zana [address] [place] [address] Pharmacist Internal Medicine 02/07/23 [id number] 06/11/24 documented as of this encounter
--- OUTSIDE RECORDS SUMMARY | 2024-07-16 11:59 | XMS_ITS | Encounter Summary ---
Author Organization [employer] Address [address] [place] [address] 7t [place] [address] Care Team Providers Care Word Processor Technician Name Role Phone Ethel Chase DO Primary Care Provider [phone] Vaishnavi Laird PharmD Unavailable [phone] Reason for Visit * Reason Onset Date Comments Pre op 01/27/2024 Encounter Details Date Type Department Care Team ([facility] st Contact Info) Description 01/27/2024 Telephone [facility] MEDICINE [address] [place] [address] Ethel Chase DO [address] [place] [address] Pre op Social History Tobacco Use Types [...] op on 02/14/24 at 02:15PM. [place] [facility] stated she will be contacting pt to provide appointment details. Reminder letter sent via mail Date of Surgery: 03/24/24 Surgical procedure being done: left knee revision surgery Type of anesthesia: general anesthesia with block Lab needed: Yes include A1c EKG: Yes Surgeon's name: Dr Oro [place] [facility] Orthopedic Surgeon's office number: [phone] Surgeon's office fax number: [phone] Contact name (person you spoke with): Sujata Last office note from surgeon requested: Yes Send Message to Venus Hensley and Matias Crowell documented in this encounter Plan of Treatment Upcoming Encounters Date Type Department Care Team ([facility] st Contact Info) Description 07/29/2024 9:30 AM EDT Medication Management [facility] MEDICINE [address] [place], [place] [phone] Vaishnavi Laird, PharmD [address] [place], [place] [phone] 08/26/2024 9:00 AM EDT Clinical Support [facility] [address] [place] [address] Suad Wilson, MARY documented as of this [...] documented as of this encounter Care Teams Word Processor Technician Relationship Specialty Start Date End Date Ethel Chase DO [address] [place] [address] PCP - General Family Medicine 10/12/13 Vaishnavi Laird, PharmD [address] [place] [address] Pharmacist Internal Medicine 02/07/23 [id number] 06/11/24 documented as of this encounter
--- OUTSIDE RECORDS SUMMARY | 2024-07-16 11:59 | XMS_ITS | Encounter Summary ---
Author Organization [employer] Address [address] [place] [address] 7t [place] [address] Care Team Providers Care Non Destructive Evaluation Technician Name Role Phone Ethel Chase DO Primary Care Provider [phone] Vaishnavi Laird PharmD Unavailable [phone] Reason for Visit * Reason Onset Date Comments Hospital Follow-up 06/08/2024 Encounter Details Date Type Department Care Team (Late st Contact Info) Description 06/08/2024 Telephone [facility] MEDICINE 230 [place] [address] Ethel Chase DO [address] [place] [address] Hospital Follow-up Social History Tobacco Use Types [...] from pt requesting a HDF appt. Hospital: [facility] Date of admission: 04/10 to [facility] and 04/15 admitted into [facility] Discharge date: 06/04/24 Diagnosed: Left leg fracture post simpson *Send message to [facility] Clinical Care Coordinators Contact pt at [phone] documented in this encounter Plan of Treatment Upcoming Encounters Date Type Department Care Team ([facility] st Contact Info) Description 07/29/2024 9:30 AM EDT Medication Management [facility] MEDICINE [address] [place] [address] Vaishnavi Laird, BrianD [address] [place] [address] 08/26/2024 9:00 AM EDT Clinical Support [facility]INE [address] [place] [address] Suad Wilson RN documented as of this encounter Goals Goal Patient Goal Type Associated Problems Recent Progress Patient-Stated? Author Hemoglobin A1c < 7 Result Component 7.5( 5 10:10 AM EDT) No Twilaia, Vaishnavi, PharmD Record your blood sugar as directed Result Component No Vaishnavi Laird, PharmD documented as of this encounter Visit Diagnoses Not on filedocumented in this encounter Additional Health Concerns Assessment Noted Time PHQ-9 Depression Total Score: 8 10/18/19 24 11:35 AM EDT documented as of this encounter Care Teams Non Destructive Evaluation Technician Relationship Specialty Start Date End Date Ethel Chase DO [address] [place] [address] PCP - General Family Medicine 10/12/13 Vaishnavi Laird, PharmD [address] [place] [address] Pharmacist Internal Medicine 02/07/23 [id number] 06/11/24 documented as of this encounter
--- OUTSIDE RECORDS SUMMARY | 2024-07-16 11:59 | XMS_ITS | Encounter Summary ---
Author Organization [employer] Address [address] [place] [address] 7t [place] [address] Care Team Providers Care Plastic Fabricator Name Role Phone Ethel Chase DO Primary Care Provider PuVaishnavi thorpe PharmD Unavailable [phone] Reason for Visit * Reason Comments Med Refill Encounter Details Date Type Department Care Team (Late st Contact Info) Description 04/06/2022 Refill [facility] MEDICINE [address] [place] [address] Ethel Chase DO [address] [place] [address] Other chronic pain Social History Tobacco Use [...] Description 07/29/2024 9:30 AM EDT Medication Management [facility] MEDICINE [address] [place] [address] Puia, Vaishnavi, PharmD [address] [place] [address] 08/26/2024 9:00 AM EDT Clinical Support [facility] MEDICINE [address] [place] [phone] Suad Wilson, RN documented as of this encounter Visit Diagnoses Diagnosis Other chronic pain documented in this encounter Additional Health Concerns Assessment Noted Time PHQ-9 Depression Total Score: 0 02/08/20 22 10:43 AM EST documented as of this encounter Care Teams Plastic Fabricator Relationship Specialty Start Date End Date Ethel Chase DO [address] [place] [address] PCP - General Family Medicine 10/12/13 Vaishnavi Laird, Zana [address] [place] [address] Pharmacist Internal Medicine 02/07/23 [id number] 06/11/24 documented as of this encounter
--- OUTSIDE RECORDS SUMMARY | 2024-07-16 11:59 | XMS_ITS | Encounter Summary ---
Author Organization [employer] Address [address] [place] [address] 7t [place] [address] Care Team Providers Care Spare Person Name Role Phone Ethel Chase Primary Care Provider PuVaishnavi thorpe PharmD Unavailable [phone] Reason for Visit * Reason Comments Med Refill Encounter Details Date Type Department Care Team (Late st Contact Info) Description 08/10/2022 Refill [facility]INE [address] [place] [address] [facility] [address] [place] [address] Social History Tobacco Use Types Packs/Day Years [...] Description 07/29/2024 9:30 AM EDT Medication Management [facility] [address] [place] [address] Puia, Vaishnavi, PharmD [address] [place] [address] 08/26/2024 9:00 AM EDT Clinical Support [facility] [address] [place] [address] Suad Wilson, RN documented as of this encounter Visit Diagnoses Not on filedocumented in this encounter Additional Health Concerns Assessment Noted Time PHQ-9 Depression Total Score: 0 02/08/20 22 10:43 AM EST documented as of this encounter Care Teams Spare Person Relationship Specialty Start Date End Date Ethel Chase DO [address] [place] [address] PCP - General Family Medicine 10/12/13 Vaishnavi Laird PharmD [address] [place] [address] Pharmacist Internal Medicine 02/07/23 [id number] 06/11/24 documented as of this encounter
--- OUTSIDE RECORDS SUMMARY | 2024-07-16 11:59 | XMS_ITS | Clinical Summary ---
Author Organization [employer] Address [address] [facility] [address] [place] [address] Care Team Providers Care Diathermy Equipment Repairer Name Role Phone ManuelEthel perry Primary Care Provider Vaishnavi Laird PharmD Unavailable [phone] Allergies Active Allergy Reactions Criticality Noted [...] BY MOUTH EVERY MORNING WITH 75mg CAPSULE Active venlafaxine XR (Effexor XR) 75 MG 24 hr capsule Active LORazepam (Ativan) 1 MG tablet TAKE 1 TABLET BY MOUTH TWICE A DAY NEEDED FOR ANXEITY Active metFORMIN (Glucophage) 500 MG tablet TAKE 1 TABLET BY MOUTH TWICE DAILY IN THE MORNING AND IN THE EVENING WITH MEALS 60 tablet Active levothyroxine (Synthroid, Levoxyl) 112 MCG tablet [...] CHANGE EVERY 14 DAYS 2 each 11 024 Active Additional Information Patient not taking.Reported on 06/16/2024 Diclofenac Sodium 1 % gel Apply 2 g topically if needed in the morning, at noon, in the evening, and at bedtime (pain). 150 g 3 024 Active Calcium Carb-Cholecalcifer ol (Oyster [...] without long-term current use of insulin (CMS/HCC) Use to inject insulin 1 times daily 100 each 3 024 Active cholecalciferol VITAMIN D (Vitamin D-3) [...] % padsIndications:Po mabel controlled diabetes mellitus (CMS/HCC) USE DIRECTED BEFORE INSULIN INJECTION AND sensor CHANGE 100 each 11 025 Active Continuous Glucose Director [employer] (FreeStyle Gerard 2 Wideman) deviceIndications: Poorly controlled diabetes mellitus (CMS/HCC) Use to scan sensor at least every 8 hours, as directed, for CGM 1 each 025 Active Additional Information Patient not taking.Reported on 06/16/2024 glucose blood (FreeStyle Precision Angel Test) test stripIndications:P oorly controlled diabetes mellitus ([facility]) USE DIRECTED TO TEST BLOOD SUGAR UP TO TWICE DAILY DIRECTED 50 strip 5 Active atorvastatin (Lipitor) 20 MG tablet TAKE 1 TABLET BY MOUTH AT BEDTIME 90 tablet 3 Active loratadine (Claritin) 10 MG tablet TAKE 1 TABLET BY MOUTH EVERY MORNING 90 tablet 3 Active glucose blood (OneTouch Ultra) test strip Use to test blood sugar 3 times daily 100 each 12 025 2025 Active isosorbide mononitrate ER (Imdur) 30 MG 24 hr tablet TAKE 1 TABLET BY MOUTH EVERY MORNING 90 tablet 3 Active meclizine (Antivert) 25 MG tablet TAKE 1 TABLET BY MOUTH THREE TIMES DAILY IN THE MORNING, AT NOON, AND AT BEDTIME NEEDED FOR DIZZINESS 30 tablet 3 Active insulin degludec (Tresiba FlexTouch) 100 UNIT/ML injectionIndicatio ns:Type 2 diabetes mellitus without complication, without long-term current use of insulin ([facility]) Inject 34 units subQ once daily at bedtime. 15 mL 5 025 Active baclofen (Lioresal) 10 MG tablet TAKE 1 TABLET BY MOUTH THREE TIMES DAILY IN THE MORNING, AT NOON, AND AT BEDTIME NEEDED FOR MUSCLE SPASMS 60 tablet 3 025 Active oxyCODONE-acetamin ophen (Percocet) 7.5-325 MG tabletIndications: Other chronic pain Take 1 tablet by mouth every 6 (six) hours if needed for severe pain. 28 tablet 025 Active meclizine (Antivert) 25 MG tablet Take 1 tablet (25 mg) by mouth if needed in the morning, at noon, and at bedtime for dizziness. 30 tablet 3 024 2024 Discontinued baclofen (Lioresal) 10 MG tablet Take 1 tablet (10 mg) by mouth if needed in the morning, at noon, and at bedtime for muscle spasms. 60 tablet 3 024 2024 Discontinued insulin degludec (Tresiba FlexTouch) 100 UNIT/ML injectionIndicatio ns:Type 2 diabetes mellitus without complication, without long-term current use of insulin ([facility]) Inject 32 units subQ once daily at bedtime. 15 mL 5 024 2024 Discontinued(R eorder (will not [...] Encounters Date Type Department Care Team Description 07/15/2024 Telephone [facility] [address] [facility] [place] [address] Suad Wilson RN Error (VOID this visit) 07/13/2024 Refill [facility] [address] [facility] [place] [address] Ethel Chase DO Other chronic pain 07/06/2024 Refill [facility] [address] [place] [address] Ehtel Chase DO Other chronic pain 07/06/2024 Refill [facility] [address] [place] [address] Ethel Chase DO 07/01/2024 Telephone [facility] [address] [place] [address] Vaishnavi Laird, BrianD 06/30/2024 9:15 AM EDT Office Visit [facility] [address] [place] [address] Ethel Chase DO Closed fracture of distal end of left femur, unspecified fracture morphology, initial encounter ([facility]) (Primary Dx); S/P total knee arthroplasty, left; C. difficile colitis; Type 2 diabetes mellitus without complication, without long-term current use of insulin ([facility]); Essential hypertension; Other chronic pain 06/30/2024 Travel 06/25/2024 Refill [facility] [address] [facility] [place] [address] Ethel Chase DO 06/24/2024 Telephone [facility] [address] [place] [address] Ethel Chase DO Nurse Triage 06/23/2024 Refill [facility] [address] [place] [address] Ethel Chase, Other chronic pain 06/18/2024 Telephone [facility] [address] [place] [address] Ethel Chase DO Nurse Triage 06/15/2024 Orders Only [facility] [address] [place] [address] Dandy Fonseca MD 06/15/2024 Refill [facility] [address] [place] [address] Dottie Phan MD 06/15/2024 Refill [facility] [address] [place] [address] Ethel Chase DO 06/12/2024 Telephone [facility] [address] [place] [address] Ethel Chase, Medication Question 06/12/2024 Telephone [facility] [address] [place] [address] Ethel Chase DO Call Back Request 06/11/2024 Telephone [facility] [address] [place] [address] Ethel Chase DO Freestyle gerard 2 06/11/2024 Refill [facility] [address] [place] [address] Ethel Chase DO Other chronic pain 06/11/2024 Refill [facility] [address] [place] [address] Ethel Chase DO Poorly controlled diabetes mellitus (CMS/HCC) 06/08/2024 Patient Outreach [facility] [address] [place] [address] Juan Scanlon Transition Of Care (Tcm) (HDF unscheduled and SDOH screening negative and Tobacco screening negative) 06/08/2024 Refill [facility] [address] [place] [address] Ethel Chase DO Poorly controlled diabetes mellitus (CMS/HCC) 06/08/2024 Telephone [facility] [address] [place] [address] Ethel Chase DO Hospital Follow-up 06/05/2024 Patient Outreach [facility] [address] [place] [address] Ethel Chase DO Transition Of Care (Tcm) (HDF unscheduled unable to LVM ) 06/05/2024 Telephone [facility] [address] [place] [address] Ethel Chase DO Hospital Follow-up 06/05/2024 Telephone [facility] [address] [place] [address] Ethel Chase DO Durable Medical Equipment ([facility] DME Request: Hospital Bed) 05/20/2024 Refill [facility] [address] [place], [place] [phone] Vaishnavi Laird PharmD Poorly controlled diabetes mellitus ([facility]) 04/28/2024 Refill [facility] [address] [place], [place] [phone] Ethel Chase DO from Last 3 Months Immunizations Immunization Administration Dates Next Due Hep B, adult [...] Sign Reading Time Taken Comments Blood Pressure 110/74 06/30/2024 1:24 PM EDT Pulse 80 06/30/2024 9:04 AM EDT [...] Description 07/29/2024 9:30 AM EDT Medication Management [facility] [address] [place] [phone] Vaishnavi Laird, PharmD [address] [place] [address] 08/26/2024 9:00 AM EDT Clinical Support [address] [address] Suad Wilson, RN Health Maintenance Due Date Last Done Comments CT Colonography 1955 FIT DNA/Cologuard 1955 Sigmoidoscopy 1955 Diabetes: Foot Exam 12/29/1965 Eye Exam 12/29/1965 Hepatitis A Vaccines (1 of 2 - Risk 2-dose series) 12/29/1974 Diabetes: Urine Protein Screening 03/13/2024 03/13/2023, 08/24/2022, 10/28/2020, Additional history exists COVID-19 Vaccine ( season) 2024 12/26/2023, 01/01/2023, 02/07/2022, Additional history exists Diabetes: Hemoglobin A1C 09/30/2024 025, 06/30/2024, 01/29/2024, Additional history exists Depression Screening 10/17/2024 10/18/2023, 10/18/19 24 Alcohol/Substance Use Screening 01/28/2025 01/29/2024 Tobacco Screening 01/28/2025 01/29/2024 FIT 05/29/2025 05/29/2024 FOBT 05/29/2025 05/29/2024 SDOH Screening 06/08/2025 06/08/2024 Lipid Panel 06/30/2025 06/30/2024, 10/26, 08/24/2022, Additional history exists Mammogram 08/05/2025 08/06/2023, 0510/2022, 07/03/2022, Additional history [...] Aged 60 years or older Completed 02/07/2023 Influenza Vaccine Completed 12/26/2023, , 02/07/2022, Additional [...] left femur, unspecified fracture morphology, initial encounter ([facility]) C. difficile colitis Type 2 diabetes mellitus without complication, without long-term current use of insulin ([facility]) Essential hypertension IRON AND TOTAL IRON BINDING CAPACITY Routine 06/30/2024 10:10 AM EDT S/P total knee arthroplasty, left Closed fracture of distal end of left femur, unspecified fracture morphology, initial encounter ([facility]) C. difficile colitis Type 2 diabetes mellitus without complication, without long-term current use of insulin ([facility]) Essential hypertension FERRITIN Routine 06/30/2024 10:10 AM EDT S/P total knee arthroplasty, left Closed fracture of distal end of left femur, unspecified fracture morphology, initial encounter ([facility]) C. difficile colitis Type 2 diabetes mellitus without complication, without long-term current use of insulin ([facility]) Essential hypertension VITAMIN B12/FOLATE, SERUM PANEL Routine 06/30/2024 10:10 AM EDT S/P total knee arthroplasty, left Closed fracture of distal end of left femur, unspecified fracture morphology, initial encounter ([facility]) C. difficile colitis Type 2 diabetes mellitus without complication, without long-term current use of insulin ([facility]) Essential hypertension HEMOGLOBIN A1C Routine 06/30/2024 10:10 AM EDT S/P total knee arthroplasty, left Closed fracture of distal end of left femur, unspecified fracture morphology, initial encounter ([facility]) C. difficile colitis Type 2 diabetes mellitus without complication, without long-term current use of insulin (CMS/HCC) Essential hypertension HEPATIC FUNCTION PANEL Routine 06/30/2024 10:10 AM EDT S/P total knee arthroplasty, left Closed fracture of distal end of left femur, unspecified fracture morphology, initial encounter (CMS/HCC) C. difficile colitis Type 2 diabetes mellitus without complication, without long-term current use of insulin (CMS/HCC) Essential hypertension VITAMIN D,25-OH,TOTAL,IA Routine 06/30/2024 10:10 AM EDT S/P total knee arthroplasty, left Closed fracture of distal end of left femur, unspecified fracture morphology, initial encounter (CMS/HCC) C. difficile colitis Type 2 diabetes mellitus without complication, without long-term current use of insulin (CMS/HCC) Essential hypertension TSH Routine 06/30/2024 10:10 AM EDT S/P total knee arthroplasty, left Closed fracture of distal end of left femur, unspecified fracture morphology, initial encounter (CMS/HCC) C. difficile colitis Type 2 diabetes mellitus without complication, without long-term current use of insulin (CMS/HCC) Essential hypertension LIPID PANEL, STANDARD Routine 06/30/2024 10:10 AM EDT S/P total knee arthroplasty, left Closed fracture of distal end of left femur, unspecified fracture morphology, initial encounter (CMS/HCC) C. difficile colitis Type 2 diabetes mellitus without complication, without long-term current use of insulin (CMS/HCC) Essential hypertension BASIC METABOLIC PANEL Routine 06/30/2024 10:10 AM EDT Type 2 diabetes mellitus without complication, without long-term current use of insulin (CMS/HCC) CBC Routine 06/30/2024 10:10 AM EDT Type 2 diabetes mellitus without complication, without long-term current use of insulin (CMS/HCC) T4, FREE Routine 06/30/2024 10:10 AM EDT Type 2 diabetes mellitus without complication, without long-term current use of insulin (CMS/HCC) POCT GLUCOSE Routine 06/30/2024 9:09 AM EDT Type 2 diabetes mellitus without complication, without long-term current use of insulin (CMS/HCC) POCT GLYCOSYLATED HEMOGLOBIN (HGB A1C) Routine 06/30/2024 9:08 AM EDT Type 2 diabetes mellitus without complication, without long-term current use of insulin (CMS/HCC) BI MAMMOGRAM SCREENING TOMOSYNTHESIS BILATERAL Routine 08/06/2023 11:15 AM EDT ALBUMIN, RANDOM URINE W/CREATININE Routine 03/13/2023 9:38 AM EST ZZZ HISTORICAL HEPATITIS C ANTIBODY RFLX Routine 10/31/2019 9:40 AM EDT HM COLONOSCOPY Routine 03/03/2019 from Last 3 Months or Most Recently Relevant to Health Maintenance Results * Vitamin D, 25-Hydroxy, Total, Immunoassay (06/30/2024 10:10 AM EDT) Vitamin D 25-OH Total 52.5 >30 ng/mL [facility] Comment: Health Based Reference Values*< 20 ??ng/mL ??[id number] ng/mL ??Insufficient> 30 ??ng/mL ??Sufficient*Nivia ACOSTA. N Engl J Med. 2007;357:266-280There is no well-established upper level of normal vitamin Dlevels. Some laboratories use 50 ng/mL as an upper limit ofnormal. However, toxicity is patient-dependent and may occurat any level. Careful correlation with the patient'spresentation is necessary and, if there is concern forvitamin D toxicity, treatment should be consideredirrespective of the serum level.Care must be taken in interpreting Vitamin D results fromdifferent laboratories and methodologies. ??Published datademonstrated that results from patients undergoinghemodialysis may show a negative bias when tested withvarious automated 25-OH vitamin D assays when compared toLC- MS/MS.When testing samples from patients whose predominant form ofVitamin D is Vitamin D2, such as patients receiving VitaminD2 supplementation, results that are subtherapeutic shouldbe confirmed with another method such as LC-MS/MS. Blood Venous blood specimen / Unknown 06/30/2024 10:10 AM EDT 06/30/2024 11:19 AM EDT Ethel Chase DO LAB BLOOD ORDERABLES Final R esult Performing Organization Address City/[facility]/ZIP Co de Phone Number [facility] [address] [place] [phone] * Vitamin B12 (Cobalamin) and Folate Panel, Serum (06/30/2024 10:10 AM EDT) Vitamin B12 216 200 - 900 pg/mL [facility] Comment:NORMAL 200-900 PG/ML INDETERMINATE 160-199 PG/ML DEFICIENT < 160 PG/ML Folate 15.3 > or = 4.0 ng/mL [facility] Comment:Reference Values:> o r = 4.0 ng/mL< 4.0 ng/mL suggests folate deficiency Methotrexate, aminopterin and folinic acid(leucovorin) are chemotherapeutic agents whose molecularstructures are similar to folate; therefore, the Architectfolate assay cannot be used for patients using these drugs. Blood 06/30/2024 10:1 0 AM EDT 06/30/2024 11:19 AM EDT Ethel Chase DO LAB BLOOD ORDERABLES Final R esult Performing Organization Address City/[facility]/ZIP Co de Phone Number [facility] [address] [place] [phone] * (ABNORMAL) CBC auto differential (06/30/2024 10:10 AM EDT) Pathologist [facility] Neutrophils Percent Auto 64.7 45 - 73 % [facility] Imm Gran Pct Auto 0.7(H) 0.0 - 0.4 % [facility] Lymphocytes Percent Auto 27.8 20 - 40 % [facility] Monocytes Percent Auto 5.2 2 - 11 % [facility] Eosinophils Percent Auto 1.2 0 - 4 % [facility] Basophils Percent Auto 0.4 0 - 2 % [facility] Neutrophils Absolute Auto 7.7 2.0 - 8.3 x10*3/uL [facility] Imm Gran Abs Auto 0.08(H) 0.00 - 0.03 X10*3/uL [facility] Lymphocytes Absolute Auto 3.3 1.2 - 4.9 X10*3/uL [facility] Monocytes Absolute Auto 0.6 0.1 - 1.2 X10*3/uL [facility] Eosinophils Absolute Auto 0.1 0.0 - 0.4 X10*3/uL [facility] Basophils Absolute Auto 0.1 0.0 - 0.2 X10*3/uL [facility] Blood Venous blood specimen / Unknown 06/30/2024 10:10 AM EDT 06/30/2024 11:16 AM EDT us Ethel Chase [employer] LAB BLOOD ORDERABLES Final R esult Performing Organization Address City/[facility]/ZIP Co de Phone Number [facility] [address] [place] [phone] * (ABNORMAL) Iron And Total Iron Binding Capacity (06/30/2024 10:10 AM EDT) Iron 34 30 - 160 mcg/dL [facility] Total Iron Binding Capacity 306 228 - 428 mcg/dL [facility] Percent Iron Saturation 11(L) 15 - 50 % [facility] Unsaturated Iron Binding 272 ug/dL [facility] Blood Venous blood specimen / Unknown 06/30/2024 10:10 AM EDT 06/30/2024 11:19 AM EDT us Ethel [employer] LAB BLOOD ORDERABLES Final R esult Performing Organization Address City/[facility]/ZIP Co de Phone Number [facility] [address] [place] [phone] * (ABNORMAL) CBC (06/30/2024 10:10 AM EDT) White Blood Count 11.9(H) 4.8 - 10.8 X10*3/uL [facility] Red Blood Count 4.12(L) 4.20 - 5.50 X10*6/uL [facility] Hemoglobin 10.5(L) 12.0 - 16.0 g/dl [facility] Hematocrit 33.8(L) 37.0 - 47.0 % [facility] Mean Corpuscular Volume 82.0 80.0 - 98.0 fL [facility] Mean Corpuscular Hemoglobin 25.5(L) 27.0 - 33.0 pg [facility] Mean Corpuscular HGB Conc 31.1 31.0 - 35.0 g/dl [facility] Red Cell Distribution Width 14.8 11.0 - 16.0 % [facility] Platelet Count 353 160 - 400 X10*3/uL [facility] Mean Platelet Volume 9.7 9.4 - 12.3 fL [facility] NRBC Pct Auto 0.0 0.0 - 0.2 /100WBC [facility] NRBC Abs Auto 0.000 0.0 - 0.012 X10*3/uL [facility] Blood Venous blood specimen / Unknown 06/30/2024 10:10 AM EDT 06/30/2024 11:16 AM EDT us Ethel Chase DO LAB BLOOD ORDERABLES Final R esult [facility] [address] [place] [phone] * TSH (06/30/2024 10:10 AM EDT) Thyroid Stimulating Hormone 3.09 0.32 - 4.0 uIU/mL [facility] Comment:Note: A sustained TS H level above 2.5 uIU/mL may warrant further investigation. TSH 3rd Generation ([facility]) Blood Venous blood specimen / Unknown 06/30/2024 10:10 AM EDT 06/30/2024 11:19 AM EDT Ethel Chase DO LAB BLOOD ORDERABLES Final R esult Performing Organization Address City/[facility]/ZIP Co de Phone Number [facility] [address] [place] [phone] * T4, Free (06/30/2024 10:10 AM EDT) Free T4 (Free Thyroxine) 1.04 0.71 - 1.85 ng/dL [facility] Blood Venous blood specimen / Unknown 06/30/2024 10:10 AM EDT 06/30/2024 11:19 AM EDT Ethel Chase DO LAB BLOOD ORDERABLES Final R esult Performing Organization Address [facility] Co de Phone Number [facility] [address] [place] [phone] * (ABNORMAL) Hemoglobin A1c (06/30/2024 10:10 AM EDT) Hemoglobin A1c 7.5(H) <6.0 % [facility] Comment:Hemoglobin A1C Refer ence Range Adults: 4.8 - 6.0 % Non diabetic: < 6.0 % Goal: < 7.0 %Additional Action Suggested: > 8.0 %Note: Hemoglobin A1c results are invalid for patients with abnormal amounts of HbF. Blood transfusions may impact the HbA1c concentration in the patient sample. Estimated Average Glucose 169 mg/dL [facility] Comment:eAG = Estimated ave rage glucose which is %A1C expressed asaverage glucose, using the formula of the [id number]-[id number] Glucose study (ADAG), Diabetes Care, Vol.31,#8,Sep. 2007 Blood Venous blood specimen / Unknown 06/30/2024 10:10 AM EDT 06/30/2024 11:16 AM EDT us Ethel Chase DO LAB BLOOD ORDERABLES Final R esult Performing Organization Address City/[facility] Co de Phone Number [facility] [address] [place] [phone] * Ferritin (06/30/2024 10:10 AM EDT) Ferritin 46 10 - 250 ng/mL [facility] Blood Venous blood specimen / Unknown 06/30/2024 10:10 AM EDT 06/30/2024 11:19 AM EDT us Ethel Chase DO LAB BLOOD ORDERABLES Final R esult Performing Organization Address [facility] de Phone Number [facility] [address] [place] [phone] * (ABNORMAL) Hepatic Function Panel (06/30/2024 10:10 AM EDT) Bilirubin, Total 0.3 0.0 - 1.0 mg/dL [facility] Bilirubin, Direct 0.1 0.0 - 0.5 mg/dL [facility] Aspartate Amino Transferase 27 5 - 31 U/L [facility] Alanine Aminotransferase 22 0 - 31 U/L [facility] Total Protein 8.0 6.5 - 8.0 g/dL [facility] Albumin Level 4.3 3.5 - 5.0 g/dL [facility] Alkaline Phosphatase 137(H) 39 - 117 U/L [facility] Blood Venous blood specimen / Unknown 06/30/2024 10:10 AM EDT 06/30/2024 11:19 AM EDT us Ethel Chase DO LAB BLOOD ORDERABLES Final R esult Performing Organization Address City/[facility] Co de Phone Number [facility] [address] [place] [phone] * Lipid Panel, Standard (06/30/2024 10:10 AM EDT) Triglycerides 126 <150 mg/dL [facility] Comment:Desirable Triglyceri de: less than 150 mg/dLBorderline High Triglyceride 150-199 mg/dLHigh Triglyceride: 200-499 mg/dLVery High Triglyceride: greater than or equal to 5OO mg/dL Cholesterol 113 <200 mg/dL [facility] Comment:Desirable Cholestero l: less than 200 mg/dLBorderline High Cholesterol: 200-239 mg/dLHigh Cholesterol: greater than 239 mg/dL LDL Cholesterol Calculated 46 <100 mg/dL [facility] Comment:Desirable LDL: less than 100 mg/dLNear Optimal/Above Optimal LDL: 110- 129 mg/dLBorderline High LDL: 130-159 mg/dLHigh LDL: 160-189 mg/dLVery High LDL: greater than or equal to 190 mg/dL HDL Cholesterol 42 >40 mg/dL [facility] Comment:Desirable HDL: great er than 40 mg/dL Note: This HDL assay may give artificially low results in patients with liver disease. Blood Venous blood specimen / Unknown 06/30/2024 10:10 AM EDT 06/30/2024 11:19 AM EDT us Ethel Chase DO LAB BLOOD ORDERABLES Final R esult [facility] [address] [place] [phone] * (ABNORMAL) Basic Metabolic Panel (06/30/2024 10:10 AM EDT) Sodium 138 135 - 145 mmol/L [facility] Potassium 4.3 3.3 - 5.1 mmol/L [facility] Chloride 104 96 - 108 mmol/L [facility] Carbon Dioxide 25 22 - 29 mmol/L [facility] Anion Gap 13 12 - 20 [facility] Urea Nitrogen (BUN) 15 9 - 16 mg/dL [facility] Creatinine, Serum 1.06 0.5 - 1.4 mg/dL [facility] [facility] Estimated Glomerular Filt Rate 52 [facility] Comment:Chronic Kidney Disea se: Estimated GFR < 60 mL/min/1.00i5Bstpsl Kidney Disease: Estimated GFR < 15 mL/min/1.73m2 Glucose 143(H) 60 - 115 mg/dL [facility] Calcium 9.9 8.4 - 10.2 mg/dL [facility] Blood Venous blood specimen / Unknown 06/30/2024 10:10 AM EDT 06/30/2024 11:19 AM EDT Ethel Chase DO LAB BLOOD ORDERABLES Final R esult [facility] [address] [place] [phone] * POCT glucose manually resulted (06/30/2024 [...] / Unknown 06/30/2024 9:08 AM EDT Ethel Chase DO POINT OF CARE TEST ENTER/MARGARITA T ORDERABLES Final Result * BI Mammogram Screening Tomosynthesis Bilateral (08/06/2023 11:15 AM EDT) Anatomical Region Laterality Modality Breast Bilateral Mammography 08/06/2023 11:1 5 AM EDT Narrative 09/05/2023 9:40 AM EDT ? [facility] ? [address] ?[place], [place] [address] ? Mammography Report ? Signed ? Patient: Trish Cameron ?MR#: ?? [id number] ? : 1955 ?Acct:[id number] ? Age/Sex: 67 / F ?ADM Date: 08/06/23 ? Loc: HO.MAMMO ? Attending Dr: Ethel Chase DO ? Ordering Physician: Ethel Chase DO ?Results: 1N ?? egative ? Date of Service: 08/06/23 ?Follow Up: 1 Year From Orig ?? inal Mammogram ? Procedure(s): MM tomosynthesis screening BI ?? Accession Number(s): [id number] ? cc: Ethel Chase DO ? EXAMINATION: [...] 0936 ? DD/ 1115 ? TD/TT: ? Hose Handler: ? Procedure Note Carito, Image - 09/05/2023 [facility] [address] [place] [address] Mammography Report Signed Patient: Trish Cameron [facility]#: [id number] : 6Acct:[id number] Age/Sex: 67 / FADM Date: 08/06/23 Loc: HO.MAMMO Attending Dr: Ethel Chase DO Ordering Physician: Ethel Chaseults: 1N egative Date of Service: 08/06/23Follow Up: 1 Year From Orig inal Mammogram Procedure(s): MM tomosynthesis screening BI Accession Number(s): [id number] cc: Ethel Chase DO EXAMINATION: MM SCREENING [...] in OV> 09/05/23 0936 DD/ 1115 TD/TT: Hose Handler: Ethel Chase DO IMG BI PROCEDURES Final Resu lt * Albumin, Random Urine W/Creatinine (03/13/2023 9:38 AM EST) Creatinine, Urine 131.57 mg/dL [facility] Microalbumin Urine 6.0 mg/L [facility] Microalbum Creatinine Ratio Ur 4.5 <30 ug/mg cr [facility] Comment:Albumin/Creatinine R atio Reference Ranges: Normal: < 30 ug/mg creatinine Microalbuminuria: 30 - 300 ug/mg creatinineClinical Albuminuria: > 300 ug/mg creatinine 03/13/2023 9:3 8 AM EST 03/13/2023 11:25 AM EST us Ethel Chase DO LAB URINE ORDERABLES Final R esult [facility] [address] [place] [phone] * HEPATITIS C ANTIBODY RFLX (10/31/2019 9:40 AM EDT) HEPATITIS C ANTIBODY NONREACTIVE NONREACTIVE [facility] Comment: Antibodies to HCV not detected; does not exclude early acute HCV infection. 10/31/2019 9:40 AM EDT Ethel Chase DO HISTORICAL/NON ORDERABLE LAB S Final Result [facility] [address] [place] [address], * Colonoscopy (03/03/2019) Colonoscopy follow up in 5 years Historical Provider HEALTH MAINTENANCE Edited Result - Final from Last 3 Months or Most Recently Relevant to Health Maintenance Insurance [facility] [employer] (O D-SNP) Care Teams Diathermy Equipment Repairer Relationship Specialty Start Date End Date Ethel Chase DO [address] [place] [address] PCP - General Family Medicine 10/12/13 Vaishnavi Laird, BrianD [address] [place] [phone] Pharmacist Internal Medicine 02/07/23 [id number] 06/11/24
--- OUTSIDE RECORDS SUMMARY | 2024-07-16 12:00 | XMS_ITS | Encounter Summary ---
Author Organization [facility] Address [address] [place] [address] Care Team Providers Care Tree Trimmer Name Role Phone Matias Bowling MD Primary Care Provider [phone] Encounter Details Date Type Department Care Team (Late st Contact Info) Description 04/29/2024 Lab Requisition [facility] - Main Lab [address] [place] [address] Matias Bowling MD 38 [facility] [address] [place], [address] Hyperlipidemia, unspecified; 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 classified [...] LAB CHEMISTRY METHOD 04/29/2024 2:[address] [facility] Potassium 4.5 3.5 - 5.5 mmol/L LAB CHEMISTRY METHOD 04/29/2024 2:49 PM [facility] Chloride 111(H) 96 - 110 mmol/L LAB CHEMISTRY METHOD 04/29/2024 2:49 PM [facility] CO2 23 21 - 32 mmol/L LAB CHEMISTRY METHOD 04/29/2024 2:49 PM [facility] Anion Gap 8 3 - 11 LAB CHEMISTRY METHOD 04/29/2024 2:49 PM [facility] Glucose 118(H) 70 - 100 mg/dL LAB CHEMISTRY METHOD 04/29/2024 2:49 PM [facility] BUN 18 5 - 25 mg/dL LAB CHEMISTRY METHOD 04/29/2024 2:49 PM [facility] Creatinine 0.94 0.50 - 1.10 mg/dL LAB CHEMISTRY METHOD 04/29/2024 2:49 PM [facility] eGFR 66 >=60 mL/min/1. 73m2 LAB CHEMISTRY METHOD 04/29/2024 2:49 PM [facility] Comment:Calculation based on the??Chronic Kidney Disease Epidemiology Collaboration (CKD-EPI) equation refit??without adjustment for race. BUN/Creatinine Ratio 19.1 LAB CHEMISTRY METHOD 04/29/2024 2:49 PM [facility] Calcium 9.2 8.5 - 10.5 mg/dL LAB CHEMISTRY METHOD 04/29/2024 2:49 PM [facility] AST (SGOT) 21 10 - 42 unit/L LAB CHEMISTRY METHOD 04/29/2024 2:49 PM [facility] ALT (SGPT) 24 10 - 60 unit/L LAB CHEMISTRY METHOD 04/29/2024 2:49 PM [facility] Alkaline Phosphatase 170(H) 42 - 121 unit/L LAB CHEMISTRY METHOD 04/29/2024 2:49 PM [facility] Total Protein 6.9 6.0 - 8.0 g/dL LAB CHEMISTRY METHOD 04/29/2024 2:49 PM [facility] Albumin 3.2 3.2 - 5.0 g/dL LAB CHEMISTRY METHOD 04/29/2024 2:49 PM [facility] Total Bilirubin 0.3 0.0 - 1.4 mg/dL LAB CHEMISTRY METHOD 04/29/2024 2:49 PM [facility] Blood Venous blood specimen / Unknown Venipuncture / Unknown 04/29/2024 6:35 AM EST 04/29/2024 10:01 AM EST us Matias Bowling MD LAB BLOOD ORDERABLES Final Resul t [facility] [address] [place] [address], * (ABNORMAL) Complete blood count (04/29/2024 6:35 AM EST) WBC 9.6 4.8 - 10.8 K/mcL LAB HEMETOLOGY METHOD 04/29/2024 11:28 AM [facility] RBC 3.70(L) 3.80 - 4.80 M/[facility] LAB HEMETOLOGY METHOD 04/29/2024 11:28 AM [facility] Hemoglobin 9.9(L) 11.5 - 16.0 g/dL LAB HEMETOLOGY METHOD 04/29/2024 11:28 AM [facility] Hematocrit 32.0(L) 35.0 - 47.0 % LAB HEMETOLOGY METHOD 04/29/2024 11:28 AM [facility] MCV 87.0 79.0 - 98.0 FL LAB HEMETOLOGY METHOD 04/29/2024 11:28 AM [facility] MCH 26.9(L) 27.0 - 32.0 pcg LAB HEMETOLOGY METHOD 04/29/2024 11:28 AM [facility] MCHC 30.9(L) 32.0 - 37.0 g/dL LAB HEMETOLOGY METHOD 04/29/2024 11:28 AM [facility] RDW 14.6 11.0 - 15.0 % LAB HEMETOLOGY METHOD 04/29/2024 11:28 AM [facility] Platelets 358 130 - 400 K/mcL LAB HEMETOLOGY METHOD 04/29/2024 11:28 AM [facility] MPV 10.0 7.0 - 11.0 FL LAB HEMETOLOGY METHOD 04/29/2024 11:28 AM [facility] NRBC 0.0 <1.0 % LAB HEMETOLOGY METHOD 04/29/2024 11:28 AM [facility] NRBC Absolute 0.00 <0.10 K/mcL LAB HEMETOLOGY METHOD 04/29/2024 11:28 AM [facility] Blood Venous blood specimen / Unknown Venipuncture / Unknown 04/29/2024 6:35 AM EST 04/29/2024 10:01 AM EST us Matias Bowling MD LAB BLOOD ORDERABLES Final Resul t [facility] [address] [place] [address], documented in this encounter Visit Diagnoses Diagnosis [...] as of this encounter Care Teams Tree Trimmer Relationship Specialty Start Date End Date Matias Bowling MD [address] [place] [phone] PCP - General Family Medicine 04/16/24 documented as of this encounter
--- OUTSIDE RECORDS SUMMARY | 2024-07-16 12:00 | XMS_ITS | Encounter Summary ---
Author Organization [facility] Address [address] [place] [address] Care Team Providers Care Louver Door Assembler Name Role Phone Matias Bowling MD Primary Care Provider [phone] Encounter Details Date Type Department Care Team (Late st Contact Info) Description 05/20/[address] [facility] - Main Lab [address] [place] [address] Matias Bowling MD 38 [facility] [address] [place], [address] Essential (primary) hypertension Social History Tobacco [...] LAB CHEMISTRY METHOD 05/21/2024 11:29 AM EDT [facility] Potassium 5.9(H) 3.5 - 5.5 mmol/L LAB CHEMISTRY METHOD 05/21/2024 11:29 AM EDT [facility] Chloride 102 96 - 110 mmol/L LAB CHEMISTRY METHOD 05/21/2024 11:29 AM [facility] CO2 27 21 - 32 mmol/L LAB CHEMISTRY METHOD 05/21/2024 11:29 AM [facility] Anion Gap 7 3 - 11 LAB CHEMISTRY METHOD 05/21/2024 11:29 AM [facility] Glucose 152(H) 70 - 100 mg/dL LAB CHEMISTRY METHOD 05/21/2024 11:29 AM [facility] BUN 21 5 - 25 mg/dL LAB CHEMISTRY METHOD 05/21/2024 11:29 AM [facility] Creatinine 2.30(H) 0.50 - 1.10 mg/dL LAB CHEMISTRY METHOD 05/21/2024 11:29 AM [facility] eGFR 23(L) >=60 mL/min/1. 73m2 LAB CHEMISTRY METHOD 05/21/2024 11:29 AM [facility] Comment:Calculation based on the??Chronic Kidney Disease Epidemiology Collaboration (CKD-EPI) equation refit??without adjustment for race. BUN/Creatinine Ratio 9.1 LAB CHEMISTRY METHOD 05/21/2024 11:29 AM [facility] Calcium 8.9 8.5 - 10.5 mg/dL LAB CHEMISTRY METHOD 05/21/2024 11:29 AM [facility] AST (SGOT) 23 10 - 42 unit/L LAB CHEMISTRY METHOD 05/21/2024 11:29 AM [facility] ALT (SGPT) 30 10 - 60 unit/L LAB CHEMISTRY METHOD 05/21/2024 11:29 AM [facility] Alkaline Phosphatase 174(H) 42 - 121 unit/L LAB CHEMISTRY METHOD 05/21/2024 11:29 AM [facility] Total Protein 6.7 6.0 - 8.0 g/dL LAB CHEMISTRY METHOD 05/21/2024 11:29 AM EDT [facility] Albumin 3.3 3.2 - 5.0 g/dL LAB CHEMISTRY METHOD 05/21/2024 11:29 AM EDT [facility] Total Bilirubin 0.3 0.0 - 1.4 mg/dL LAB CHEMISTRY METHOD 05/21/2024 11:29 AM T [facility] Blood Venous blood specimen / Unknown Venipuncture / Unknown 05/21/2024 5:43 AM EDT 05/21/2024 9:27 AM EDT us Matias Bowling MD LAB BLOOD ORDERABLES Final Resul t [facility] [address] [place] [address], [place] [phone] * (ABNORMAL) Complete blood count (05/21/2024 5:43 AM EDT) WBC 10.3 4.8 - 10.8 K/mcL LAB HEMETOLOGY METHOD 05/21/2024 10:10 AM [facility] RBC 3.50(L) 3.80 - 4.80 M/mcL LAB HEMETOLOGY METHOD 05/21/2024 10:10 AM [facility] Hemoglobin 9.0(L) 11.5 - 16.0 g/dL LAB HEMETOLOGY METHOD 05/21/2024 10:10 AM [facility] Hematocrit 30.0(L) 35.0 - 47.0 % LAB HEMETOLOGY METHOD 05/21/2024 10:10 AM [facility] MCV 86.5 79.0 - 98.0 FL LAB HEMETOLOGY METHOD 05/21/2024 10:10 AM [facility] MCH 25.9(L) 27.0 - 32.0 pcg LAB HEMETOLOGY METHOD 05/21/2024 10:10 AM [facility] MCHC 30.0(L) 32.0 - 37.0 g/dL LAB HEMETOLOGY METHOD 05/21/2024 10:10 AM EDT [facility] RDW 15.1(H) 11.0 - 15.0 % LAB HEMETOLOGY METHOD 05/21/2024 10:10 AM EDT [facility] Platelets 272 130 - 400 K/mcL LAB HEMETOLOGY METHOD 05/21/2024 10:10 AM EDT [facility] MPV 10.2 7.0 - 11.0 FL LAB HEMETOLOGY METHOD 05/21/2024 10:10 AM EDT [facility] NRBC 0.0 <1.0 % LAB HEMETOLOGY METHOD 05/21/2024 10:10 AM EDT [facility] NRBC Absolute 0.00 <0.10 K/mcL LAB HEMETOLOGY METHOD 05/21/2024 10:10 AM EDT [facility] Blood Venous blood specimen / Unknown Venipuncture / Unknown 05/21/2024 5:43 AM EDT 05/21/2024 9:27 AM EDT us Matias Bowling MD LAB BLOOD ORDERABLES Final Resul t [facility] [address] [place] [address], documented in this encounter Visit Diagnoses Diagnosis Essential (primary) hypertension Unspecified essential hypertension documented in this encounter Additional Health Concerns Infection Onset Date Last Indicated Resolved Time Gastrointestinal Rule-Out 04/28/2024 04/27/2024 7:06 PM EDT C. difficile 05/29/2024 05/29/2024 06/22/2024 7:04 PM EDT C. Diff Rule-Out Infection 05/30/2024 05/29/2024 0 05/30/2024 9:47 AM EDT documented as of this encounter Care Teams Louver Door Assembler Relationship Specialty Start Date End Date Matias Bowling MD [address] [address] PCP - General Family Medicine 04/16/24 documented as of this encounter
--- OUTSIDE RECORDS SUMMARY | 2024-07-16 12:00 | XMS_ITS | Encounter Summary ---
Author Organization [facility] Address [address] [place] [address] Care Team Providers Care Audioprosthologist Name Role Phone Matias Bowling MD Primary Care Provider [phone] Encounter Details Date Type Department Care Team (Late st Contact Info) Description 04/29/2024 Lab Requisition [facility] - Main Lab [address] [facility] [place] [address] Matias Bowling MD 38 [facility] [address] [place], [address] Essential (primary) hypertension Social History Tobacco [...] documented as of this encounter Care Teams Audioprosthologist Relationship Specialty Start Date End Date Matias Bowling MD 38 [facility] [address] [place] [address] PCP - General Family Medicine 04/16/24 documented as of this encounter
--- OUTSIDE RECORDS SUMMARY | 2024-07-16 12:00 | XMS_ITS | Encounter Summary ---
Author Organization [facility] Address [address] [place] [address] Care Team Providers Care Idea Worker Name Role Phone Matias Bowling MD Primary Care Provider [phone] Encounter Details Date Type Department Care Team (Late st Contact Info) Description 05/22/[address] [facility] - Main Lab [address] [place] [address] Matias Bowling MD 38 [facility] [address] [place], [address] 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 classified elsewhere (CMS/HCC [...] LAB CHEMISTRY METHOD 05/22/2024 11:37 AM EDT [facility] Potassium 5.2 3.5 - 5.5 mmol/L LAB CHEMISTRY METHOD 05/22/2024 11:37 AM [facility] Chloride 102 96 - 110 mmol/L LAB CHEMISTRY METHOD 05/22/2024 11:37 AM [facility] CO2 25 21 - 32 mmol/L LAB CHEMISTRY METHOD 05/22/2024 11:37 AM [facility] Anion Gap 7 3 - 11 LAB CHEMISTRY METHOD 05/22/2024 11:37 AM [facility] Glucose 163(H) 70 - 100 mg/dL LAB CHEMISTRY METHOD 05/22/2024 11:37 AM [facility] BUN 18 5 - 25 mg/dL LAB CHEMISTRY METHOD 05/22/2024 11:37 AM [facility] Creatinine 1.65(H) 0.50 - 1.10 mg/dL LAB CHEMISTRY METHOD 05/22/2024 11:37 AM [facility] eGFR 34(L) >=60 mL/min/1. 73m2 LAB CHEMISTRY METHOD 05/22/2024 11:37 AM [facility] Comment:Calculation based on the??Chronic Kidney Disease Epidemiology Collaboration (CKD-EPI) equation refit??without adjustment for race. BUN/Creatinine Ratio 10.9 LAB CHEMISTRY METHOD 05/22/2024 11:37 AM [facility] Calcium 8.8 8.5 - 10.5 mg/dL LAB CHEMISTRY METHOD 05/22/2024 11:37 AM [facility] Blood Venous blood specimen / Unknown Venipuncture / Unknown 05/22/2024 8:23 AM EDT 05/22/2024 10:31 AM EDT us Matias Bowling MD LAB BLOOD ORDERABLES Final Resul t [facility] [address] [place] [address], [place] [phone] * (ABNORMAL) Complete blood count (05/22/2024 8:23 AM EDT) [facility] WBC 9.8 4.8 - 10.8 K/mcL LAB HEMETOLOGY METHOD 05/22/2024 11:21 AM [facility] RBC 3.60(L) 3.80 - 4.80 M/mcL LAB HEMETOLOGY METHOD 05/22/2024 11:21 AM [facility] Hemoglobin 9.5(L) 11.5 - 16.0 g/dL LAB HEMETOLOGY METHOD 05/22/2024 11:21 AM [facility] Hematocrit 31.2(L) 35.0 - 47.0 % LAB HEMETOLOGY METHOD 05/22/2024 11:21 AM [facility] MCV 86.4 79.0 - 98.0 FL LAB HEMETOLOGY METHOD 05/22/2024 11:21 AM [facility] MCH 26.3(L) 27.0 - 32.0 pcg LAB HEMETOLOGY METHOD 05/22/2024 11:21 AM [facility] MCHC 30.4(L) 32.0 - 37.0 g/dL LAB HEMETOLOGY METHOD 05/22/2024 11:21 AM [facility] RDW 14.7 11.0 - 15.0 % LAB HEMETOLOGY METHOD 05/22/2024 11:21 AM [facility] Platelets 278 130 - 400 K/mcL LAB HEMETOLOGY METHOD 05/22/2024 11:21 AM [facility] MPV 10.5 7.0 - 11.0 FL LAB HEMETOLOGY METHOD 05/22/2024 11:21 AM [facility] NRBC 0.0 <1.0 % LAB HEMETOLOGY METHOD 05/22/2024 11:21 AM EDT [facility] NRBC Absolute 0.00 <0.10 K/mcL LAB HEMETOLOGY METHOD 05/22/2024 11:21 AM EDT [facility] Blood Venous blood specimen / Unknown Venipuncture / Unknown 05/22/2024 8:23 AM EDT 05/22/2024 10:31 AM EDT us Matias Bowling MD LAB BLOOD ORDERABLES Final Resul t [facility] [address] [place] [address], documented in this encounter Visit Diagnoses Diagnosis [...] documented as of this encounter Care Teams Idea Worker Relationship Specialty Start Date End Date Matias Bowling MD 38 [facility] [address] [place] [phone] PCP - General Family Medicine 04/16/24 documented as of this encounter
--- OUTSIDE RECORDS SUMMARY | 2024-07-16 12:00 | XMS_ITS | Encounter Summary ---
Author Organization [employer] Address [address] [place] [address] [address] [place] [address] Care Team Providers Care Biomedical Instrument Technician Name Role Phone Ethel Chase DO Primary Care Provider [phone] Vaishnavi Laird PharmD Unavailable [phone] Reason for Visit * Reason Onset Date Comments Appointment Request 03/02/2024 Encounter Details Date Type Department Care Team ([facility] st Contact Info) Description 03/02/2024 Telephone [facility]INE [address] [place] [address] Ethel Chase DO [address] [place] [address] Appointment Request Social History Tobacco Use Types [...] would like to reschedule. Please contact pt: [phone] (French) documented in this encounter Plan of Treatment Upcoming Encounters Date Type Department Care Team (Late st Contact Info) Description 07/29/2024 9:30 AM EDT Medication Management [facility] MEDICINE [address] [place] [phone] Vaishnavi Laird, PharmD [address] [place] [address] 08/26/2024 9:00 AM EDT Clinical Support [facility] [address] [place] [phone] Suad Wilson, RN documented as of this [...] documented as of this encounter Care Teams Biomedical Instrument Technician Relationship Specialty Start Date End Date Ethel Chase DO [address] [place] [address] PCP - General Family Medicine 10/12/13 Vaishnavi Laird PharmD [address] [place] [address] Pharmacist Internal Medicine 02/07/23 [id number] 06/11/24 documented as of this encounter
--- OUTSIDE RECORDS SUMMARY | 2024-07-16 12:00 | XMS_ITS | Encounter Summary ---
Author Organization [employer] Address [address] [place] [address] 7[address] [place] [address] Care Team Providers Care Enrobing Machine Feeder Name Role Phone Ethel Chase DO Primary Care Provider [phone] Vaishnavi Laird PharmD Unavailable [phone] Reason for Visit * Reason Comments Med Refill Encounter Details Date Type Department Care Team ([facility] st Contact Info) Description 04/16/2024 Refill [facility] MEDICINE [address] [place] [address] Ethel Chase DO [address] [place] [address] Social History Tobacco Use Types Packs/Day Years [...] your housing situation today? I have pérez turicos 01/15/[address] you li [...] Description 07/29/2024 9:30 AM EDT Medication Management [address] [address] Puia, Vaishnavi, PharmD [address] [place] [address] 08/26/2024 9:00 AM EDT Clinical Support [address] [address] Suad Wilson, MARY documented as of this [...] documented as of this encounter Care Teams Enrobing Machine Feeder Relationship Specialty Start Date End Date Ethel Chase DO [address] [place] [address] PCP - General Family Medicine 10/12/13 Vaishnavi Laird, Zana [address] [place] [address] Pharmacist Internal Medicine 02/07/23 [id number] 06/11/24 documented as of this encounter
--- OUTSIDE RECORDS SUMMARY | 2024-07-16 12:00 | XMS_ITS | Encounter Summary ---
Author Organization [employer] Address [address] [place] [address] 7t [place] [address] Care Team Providers Care Buzzsaw Operator Name Role Phone Ethel Chase DO Primary Care Provider [phone] Vaishnavi Laird PharmD Unavailable [phone] Reason for Visit * Reason Onset Date Comments Med Refill 07/13/2024 Encounter Details Date Type Department Care Team (Late st Contact Info) Description 07/13/2024 Refill [facility] MEDICINE [address] [place] [address] Ethel Chase DO [address] [place] [address] Other chronic pain Social History Tobacco Use [...] Telephone Encounter - Suad Wilson RN - 07/14/2024 11:41 AM EDT 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 * Telephone Encounter - Bharti Velasco - 07/13/2024 2:47 PM EDT TC from pt requesting medication refill. Medications needing refill : oxyCODONE-acetaminophen (Percocet) 7.5-325 MG tablet To be sent to: [facility] - [place], [place] - [address] [facility] documented in this encounter Plan of Treatment Upcoming Encounters Date Type Department Care Team (Late st Contact Info) Description 07/29/2024 9:30 AM EDT Medication Management [facility]INE [address] [place] [address] Vaishnavi Laird, PharmD [address] [place], [place] [phone] 08/26/2024 9:00 AM EDT Clinical Support [facility]INE [address] [place] [address] Suad iWlson, MARY documented as of this encounter Goals [...] documented as of this encounter Care Teams Buzzsaw Operator Relationship Specialty Start Date End Date Ethel Chase DO [address] [place] [address] PCP - General Family Medicine 10/12/13 Vaishnavi Laird, PharmD [address] [place] [phone] Pharmacist Internal Medicine 02/07/23 [id number] 06/11/24 documented as of this encounter
--- OUTSIDE RECORDS SUMMARY | 2024-07-16 12:00 | XMS_ITS | Encounter Summary ---
Author Organization [employer] Address [address] [place] [address] 7t [place] [address] Care Team Providers Care Filler Mixer Name Role Phone Ethel Chase DO Primary Care Provider [phone] Vaishnavi Laird PharmD Unavailable Reason for Visit * Reason Comments Med Refill Encounter Details Date Type Department Care Team ([facility] st Contact Info) Description 02/07/[address] [facility] [address] [place] [address] Ethel Chase DO [address] [place] [address] Diverticular disease (Primary Dx) Social History Tobacco [...] AM EST documented as of this encounter Functional Status * Over the past 2 weeks, how often have you been bothered by any of the following problems? Question Answer Date of Assessment Author Patient Health Questionnaire-2 Score 0 01/25 10:43 AM Angel Galvan MA * Over the past 2 weeks, how often have you been bothered by any of the following problems? Question Answer Date of Assessment Author Little interest or pleasure in doing things Not at all 02/07/2022 10:43 AM Angel Galvan M A Feeling down, depressed, or hopeless Not at all 02/07/2022 10:43 AM Angel Galvan M A Trouble falling or staying asleep, or sleeping too much Not at all 02/07/2022 10:43 AM Yunier Galvan MA Feeling tired or having mainor le energy Not at all 02/07/2022 10:43 AM Angel Galvan M A Poor appetite or overeating Not at all 02/07/2022 10 :43 AM Angel Galvan MA Feeling bad about yourself - or that you are a failure or have let yourself or your family down Not at all 02/07/2022 10:43 AM Angel Pimentel MA Trouble concentrating on thi ngs, such as reading the newspaper or watching television Not at all 02/07/2022 10:43 AM Angel Galvan M A Moving or speaking so slowly that other people could have noticed? Or the opposite - being so fidgety or restless that you have been moving around a lot more than usual. Not at all 02/07/2022 10:43 AM Angel Galvan M A Thoughts that you would be better off or hurting yourself in some way Not at all 02/07/2022 10:43 AM Angel Galvan MA Patient Health Questionnaire -9 Score 0 02/07/2022 10:43 AM Angel Galvan M A documented as of this encounter Miscellaneous Notes * Telephone Encounter - ZEB Valles - 02/09/2022 4:58 PM EST Sent meds per PCP request, did not send oxycodone as was advised this was ok as pended and not needed (or queued to another provider) but did send cipro and metro to [facility] requested. * Telephone Encounter - Susan Guillaume RN - 02/09/2022 3:31 PM EST TC placed to pt [phone] scan showed mild diverticulitis. Pt [...] is requesting medications to be sent to [facility] on [facility] [employer] in [facility] she cannot get to [facility] pharmacy before they close. RN will [...] scan results are back yet. RN checked [employer] system and results not yet available. CT was ordered STAT. RN called [facility] radiology who reports they do not have a wooden fence erector on site or Saturday and RN would have to call [facility] at [phone] and speak to [employer] to request results to be read. RN called [phone] however phone rang continuously without an automated recording w/ options ora VM. RN returned call to [facility] to inform them no one answered at [facility] and the phone just kept ringing. [facility] confirmed the number is correct and reports they will send a message to [facility] to ask them to interpret the CT scan. RN will check before end of the day for interpretation report. * Telephone Encounter - Arcelia Wylie - 02/08/2022 2:07 PM EST Tc from [facility] requesting lab ordered be refaxed, proposal writer refaxed to [phone] * Telephone Encounter - Ethel Chase DO - 02/07/2022 3:51 PM EST Rx already sent. documented in this encounter Plan of Treatment Upcoming Encounters Date Type Department Care Team (Late st Contact Info) Description 07/29/2024 9:30 AM EDT Medication Management [facility] [address] [place] [address] Vaishnavi Laird PharmD [address] [place] [phone] 08/26/2024 9:00 AM EDT Clinical Support [facility] [address] [place] [address] Suad Wilson RN documented as of this encounter Visit Diagnoses Diagnosis Diverticular disease- Primary Diverticulosis of colon (without mention of hemorrhage) documented in this encounter Additional Health Concerns Assessment Noted Time PHQ-9 Depression Total Score: 0 02/08/20 22 10:43 AM EST documented as of this encounter Care Teams Filler Mixer Relationship Specialty Start Date End Date Ethel Chase DO [address] [place] [address] PCP - General Family Medicine 10/12/13 Vaishnavi Laird, PharmD [address] [place] [address] Pharmacist Internal Medicine 02/07/23 [id number] 06/11/24 documented as of this encounter
--- OUTSIDE RECORDS SUMMARY | 2024-07-16 12:00 | XMS_ITS | Encounter Summary ---
Author Organization [facility] Address [address] [place] [phone] Care Team Providers Care Trimming Cutter Name Role Phone Matias Bowling MD Primary Care Provider [phone] Encounter Details Date Type Department Care Team (Late st Contact Info) Description 04/28/2024 Lab Requisition [facility] - Main Lab [address] [facility] [place] [address] Matias Bowling MD 38 [facility] 204 [facility] [phone] Diarrhea, unspecified Social History Tobacco [...] documented as of this encounter Care Teams Trimming Cutter Relationship Specialty Start Date End Date Matias Bowling MD 38 [facility] 204 [place] [phone] PCP - General Family Medicine 04/16/24 documented as of this encounter
--- OUTSIDE RECORDS SUMMARY | 2024-07-16 12:00 | XMS_ITS | Encounter Summary ---
Author Organization [facility] Address [address] [place] [address] Care Team Providers Care Regulatory Consultant Name Role Phone Matias Bowling MD Primary Care Provider [phone] Encounter Details Date Type Department Care Team (Late st Contact Info) Description 04/23/2024 Lab Requisition [facility] - Main Lab [address] [place] [address] Matias Bowling MD 38 [facility] 204 [place], [address] Essential (primary) hypertension Social History Tobacco [...] LAB CHEMISTRY METHOD 04/23/2024 10:18 AM EST [facility] Potassium 4.4 3.5 - 5.5 mmol/L LAB CHEMISTRY METHOD 04/23/2024 10:18 AM EST [facility] Chloride 109 96 - 110 mmol/L LAB CHEMISTRY METHOD 04/23/2024 10:18 AM [facility] CO2 25 21 - 32 mmol/L LAB CHEMISTRY METHOD 04/23/2024 10:18 AM [facility] Anion Gap 9 3 - 11 LAB CHEMISTRY METHOD 04/23/2024 10:18 AM [facility] Glucose 114(H) 70 - 100 mg/dL LAB CHEMISTRY METHOD 04/23/2024 10:18 AM [facility] BUN 17 5 - 25 mg/dL LAB CHEMISTRY METHOD 04/23/2024 10:18 AM [facility] Creatinine 1.01 0.50 - 1.10 mg/dL LAB CHEMISTRY METHOD 04/23/2024 10:18 AM [facility] eGFR 61 >=60 mL/min/1. 73m2 LAB CHEMISTRY METHOD 04/23/2024 10:18 AM [facility] Comment:Calculation based on the??Chronic Kidney Disease Epidemiology Collaboration (CKD-EPI) equation refit??without adjustment for race. BUN/Creatinine Ratio 16.8 LAB CHEMISTRY METHOD 04/23/2024 10:18 AM [facility] Calcium 9.4 8.5 - 10.5 mg/dL LAB CHEMISTRY METHOD 04/23/2024 10:18 AM [facility] AST (SGOT) 18 10 - 42 unit/L LAB CHEMISTRY METHOD 04/23/2024 10:18 AM [facility] ALT (SGPT) 25 10 - 60 unit/L LAB CHEMISTRY METHOD 04/23/2024 10:18 AM [facility] Alkaline Phosphatase 165(H) 42 - 121 unit/L LAB CHEMISTRY METHOD 04/23/2024 10:18 AM [facility] Total Protein 7.0 6.0 - 8.0 g/dL LAB CHEMISTRY METHOD 04/23/2024 10:18 AM [facility] Albumin 3.3 3.2 - 5.0 g/dL LAB CHEMISTRY METHOD 04/23/2024 10:18 AM [facility] Total Bilirubin 0.4 0.0 - 1.4 mg/dL LAB CHEMISTRY METHOD 04/23/2024 10:18 AM [facility] Blood Venous blood specimen / Unknown Venipuncture / Unknown 04/23/2024 5:04 AM EST 04/23/2024 8:47 AM EST us Matias Bowling MD LAB BLOOD ORDERABLES Final Resul t [facility] [address] [place] [address], * (ABNORMAL) Complete blood count (04/23/2024 5:04 AM EST) WBC 8.9 4.8 - 10.8 K/mcL LAB HEMETOLOGY METHOD 04/23/2024 9:28 AM [facility] RBC 3.40(L) 3.80 - 4.80 M/[facility] LAB HEMETOLOGY METHOD 04/23/2024 9:28 AM [facility] Hemoglobin 9.2(L) 11.5 - 16.0 g/dL LAB HEMETOLOGY METHOD 04/23/2024 9:28 AM [facility] Hematocrit 30.3(L) 35.0 - 47.0 % LAB HEMETOLOGY METHOD 04/23/2024 9:28 AM [facility] MCV 88.1 79.0 - 98.0 FL LAB HEMETOLOGY METHOD 04/23/2024 9:28 AM [facility] MCH 26.7(L) 27.0 - 32.0 pcg LAB HEMETOLOGY METHOD 04/23/2024 9:28 AM [facility] MCHC 30.4(L) 32.0 - 37.0 g/dL LAB HEMETOLOGY METHOD 04/23/2024 9:28 AM EST [facility] RDW 14.6 11.0 - 15.0 % LAB HEMETOLOGY METHOD 04/23/2024 9:28 AM EST [facility] Platelets 333 130 - 400 K/mcL LAB HEMETOLOGY METHOD 04/23/2024 9:28 AM EST [facility] MPV 9.8 7.0 - 11.0 FL LAB HEMETOLOGY METHOD 04/23/2024 9:28 AM EST [facility] NRBC 0.0 <1.0 % LAB HEMETOLOGY METHOD 04/23/2024 9:28 AM EST [facility] NRBC Absolute 0.00 <0.10 K/mcL LAB HEMETOLOGY METHOD 04/23/2024 9:28 AM [facility] Blood Venous blood specimen / Unknown Venipuncture / Unknown 04/23/2024 5:04 AM EST 04/23/2024 8:47 AM EST us Matias Bowling MD LAB BLOOD ORDERABLES Final Resul t [facility] [address] [place] [address], documented in this encounter Visit Diagnoses Diagnosis Essential (primary) hypertension Unspecified essential hypertension documented in this encounter Additional Health Concerns Infection Onset Date Last Indicated Resolved Time Gastrointestinal Rule-Out 04/28/2024 04/27/2024 7:06 PM EDT C. difficile 05/29/2024 05/29/2024 06/22/2024 7:04 PM EDT C. Diff Rule-Out Infection 05/30/2024 05/29/2024 0 05/30/2024 9:47 AM EDT documented as of this encounter Care Teams Regulatory Consultant Relationship Specialty Start Date End Date Matias Bowling MD 38 [facility] 204 [place] [phone] PCP - General Family Medicine 04/16/24 documented as of this encounter
--- OUTSIDE RECORDS SUMMARY | 2024-07-16 12:00 | XMS_ITS | Encounter Summary ---
Author Organization [facility] Address [address] [place] [address] Care Team Providers Care Student Success Counselor Name Role Phone Matias Bowling MD Primary Care Provider [phone] Encounter Details Date Type Department Care Team (Late st Contact Info) Description 04/16/2024 Lab Requisition [facility] - Main Lab [address] [place] [address] Matias Bowling MD 38 [facility] 204 [place], [address] Essential (primary) hypertension Social History Tobacco [...] LAB CHEMISTRY METHOD 04/16/2024 11:36 AM EST [facility] Potassium 4.2 3.5 - 5.5 mmol/L LAB CHEMISTRY METHOD 04/16/2024 11:36 AM EST [facility] Chloride 103 96 - 110 mmol/L LAB CHEMISTRY METHOD 04/16/2024 11:36 AM [facility] CO2 25 21 - 32 mmol/L LAB CHEMISTRY METHOD 04/16/2024 11:36 AM [facility] Anion Gap 13(H) 3 - 11 LAB CHEMISTRY METHOD 04/16/2024 11:36 AM [facility] Glucose 96 70 - 100 mg/dL LAB CHEMISTRY METHOD 04/16/2024 11:36 AM [facility] BUN 13 5 - 25 mg/dL LAB CHEMISTRY METHOD 04/16/2024 11:36 AM [facility] Creatinine 1.13(H) 0.50 - 1.10 mg/dL LAB CHEMISTRY METHOD 04/16/2024 11:36 AM [facility] eGFR 53(L) >=60 mL/min/1. 73m2 LAB CHEMISTRY METHOD 04/16/2024 11:36 AM [facility] Comment:Calculation based on the??Chronic Kidney Disease Epidemiology Collaboration (CKD-EPI) equation refit??without adjustment for race. BUN/Creatinine Ratio 11.5 LAB CHEMISTRY METHOD 04/16/2024 11:36 AM [facility] Calcium 9.1 8.5 - 10.5 mg/dL LAB CHEMISTRY METHOD 04/16/2024 11:36 AM [facility] AST (SGOT) 31 10 - 42 unit/L LAB CHEMISTRY METHOD 04/16/2024 11:36 AM [facility] ALT (SGPT) 33 10 - 60 unit/L LAB CHEMISTRY METHOD 04/16/2024 11:36 AM [facility] Alkaline Phosphatase 181(H) 42 - 121 unit/L LAB CHEMISTRY METHOD 04/16/2024 11:36 AM [facility] Total Protein 7.5 6.0 - 8.0 g/dL LAB CHEMISTRY METHOD 04/16/2024 11:36 AM [facility] Albumin 3.3 3.2 - 5.0 g/dL LAB CHEMISTRY METHOD 04/16/2024 11:36 AM [facility] Total Bilirubin 0.4 0.0 - 1.4 mg/dL LAB CHEMISTRY METHOD 04/16/2024 11:36 AM [facility] Blood Venous blood specimen / Unknown Venipuncture / Unknown 04/16/2024 7:33 AM EST 04/16/2024 10:20 AM EST us Matias Bowling MD LAB BLOOD ORDERABLES Final Resul t [facility] [address] [place] [address], [place] [phone] * (ABNORMAL) Complete blood count (04/16/2024 7:33 AM EST) WBC 11.5(H) 4.8 - 10.8 K/mcL LAB HEMETOLOGY METHOD 04/16/2024 11:12 AM [facility] RBC 3.70(L) 3.80 - 4.80 M/mcL LAB HEMETOLOGY METHOD 04/16/2024 11:12 AM [facility] Hemoglobin 9.9(L) 11.5 - 16.0 g/dL LAB HEMETOLOGY METHOD 04/16/2024 11:12 AM [facility] Hematocrit 32.1(L) 35.0 - 47.0 % LAB HEMETOLOGY METHOD 04/16/2024 11:12 AM [facility] MCV 87.5 79.0 - 98.0 FL LAB HEMETOLOGY METHOD 04/16/2024 11:12 AM [facility] MCH 27.0 27.0 - 32.0 pcg LAB HEMETOLOGY METHOD 04/16/2024 11:12 AM [facility] MCHC 30.8(L) 32.0 - 37.0 g/dL LAB HEMETOLOGY METHOD 04/16/2024 11:12 AM EST [facility] RDW 14.2 11.0 - 15.0 % LAB HEMETOLOGY METHOD 04/16/2024 11:12 AM EST [facility] Platelets 443(H) 130 - 400 K/mcL LAB HEMETOLOGY METHOD 04/16/2024 11:12 AM EST [facility] MPV 9.8 7.0 - 11.0 FL LAB HEMETOLOGY METHOD 04/16/2024 11:12 AM EST [facility] NRBC 0.0 <1.0 % LAB HEMETOLOGY METHOD 04/16/2024 11:12 AM [facility] NRBC Absolute 0.00 <0.10 K/mcL LAB HEMETOLOGY METHOD 04/16/2024 11:12 AM [facility] Blood Venous blood specimen / Unknown Venipuncture / Unknown 04/16/2024 7:33 AM EST 04/16/2024 10:20 AM EST us Matias Bowling MD LAB BLOOD ORDERABLES Final Resul t [facility] [address] [place] [address], documented in this encounter Visit Diagnoses Diagnosis Essential (primary) hypertension Unspecified essential hypertension documented in this encounter Additional Health Concerns Infection Onset Date Last Indicated Resolved Time Gastrointestinal Rule-Out 04/28/2024 04/27/2024 7:06 PM EDT C. difficile 05/29/2024 05/29/2024 06/22/2024 7:04 PM EDT C. Diff Rule-Out Infection 05/30/2024 05/29/2024 0 05/30/2024 9:47 AM EDT documented as of this encounter Care Teams Student Success Counselor Relationship Specialty Start Date End Date Matias Bowling MD [address] [phone] PCP - General Family Medicine 04/16/24 documented as of this encounter
--- OUTSIDE RECORDS SUMMARY | 2024-07-16 12:00 | XMS_ITS | Encounter Summary ---
Author Organization [employer] Address [address] [place] [address] 7t [place] [address] Care Team Providers Care Service Unit Operator Oil Well Name Role Phone Ethel Chase DO Primary Care Provider PuiaVaishnavi PharmD Unavailable [phone] Reason for Visit * Reason Comments Med Refill Encounter Details Date Type Department Care Team ([facility] Contact Info) Description 10/25/2022 Refill [facility]EDS [address] [place] [address] Eun Ray MD [address] [place] [address] Other chronic pain Social History Tobacco Use [...] Upcoming Encounters Date Type Department Care Team ([facility] Contact Info) Description 07/29/2024 9:30 AM EDT Medication Management [facility] MEDICINE [address] [place] [address] Puia, Vaishnavi, PharmD [address] [place] [address] 08/26/2024 9:00 AM EDT Clinical Support [facility] MEDICINE [address] [place] [phone] Suad Wilson, RN documented as of this encounter Visit Diagnoses Diagnosis Other chronic pain documented in this encounter Additional Health Concerns Assessment Noted Time PHQ-9 Depression Total Score: 0 02/08/20 22 10:43 AM EST documented as of this encounter Care Teams Service Unit Operator Oil Well Relationship Specialty Start Date End Date Ethel Chase DO [address] [place] [address] PCP - General Family Medicine 10/12/13 Vaishnavi Laird PharmD [address] [place] [address] Pharmacist Internal Medicine 02/07/23 [id number] 06/11/24 documented as of this encounter
--- OUTSIDE RECORDS SUMMARY | 2024-07-16 12:00 | XMS_ITS | Encounter Summary ---
Author Organization [employer] Address [address] [place] [address] 7t [place] [address] Care Team Providers Care Securities Research Analyst Name Role Phone ManuelEthel perry Primary Care Provider [phone] Vaishnavi Laird PharmD Unavailable [phone] Reason for Visit * Reason Onset Date Comments Error (VOID this visit) 07/15/2024 Encounter Details Date Type Department Care Team ([facility] Contact Info) Description 07/15/2024 Telephone [facility] [address] [place] [address] Suad Wilson, MARY Error (VOID this visit) Social History Tobacco Use Types Packs/Day Years [...] Description 07/29/2024 9:30 AM EDT Medication Management [address] [address] Puia, Vaishnavi, PharmD [address] [place] [address] 08/26/2024 9:00 AM EDT Clinical Support [address] [address] Suad Wilson, MARY documented as of this [...] documented as of this encounter Care Teams Securities Research Analyst Relationship Specialty Start Date End Date Ethel Chase DO [address] [place] [address] PCP - General Family Medicine 10/12/13 Puia, Vaishnavi, PharmD [address] [place] [address] Pharmacist Internal Medicine 02/07/23 [id number] 06/11/24 documented as of this encounter
--- OUTSIDE RECORDS SUMMARY | 2024-07-16 12:00 | XMS_ITS | Encounter Summary ---
Author Organization [employer] Address [address] [place] [address] 7[address] [place] [address] Care Team Providers Care [employer] Name Role Phone Ethel Chase DO Primary Care Provider [phone] Vaishnavi Laird PharmD Unavailable [phone] Reason for Visit * Reason Onset Date Comments Nurse Triage 04/16/2023 Encounter Details Date Type Department Care Team ([facility] st Contact Info) Description 04/16/2023 Telephone [facility]INE [address] [place] [address] Ethel Chase DO [address] [place] [address] Nurse Triage Social History Tobacco Use Types [...] PM EST Triage call regarding message from [facility] see below. Pt answers call , [place] [employer] [place] [id number], but, Pt is speaking malagasy well. Pt reports only high BS was [...] if any further problem to come to [facility] for provider to see Pt . Pt [...] questions - You become worse Tc from Baoyash [facility] reporting patient has extreme high blood sugars: 355 Saturday Down to the 250 today Advises that her glucose monitor keeps beeping, [facility] Nurse advised that pt refused urgent jail visit but was advised to go to the urgent. Please contact pt [phone] Latvian Speaker * Telephone Encounter - Tramainehernan Pawel Grider - 04/16/2023 4:18 PM EST Tc from Ambrosio [facility] reporting patient has extreme high blood sugars: 355 Saturday Down to the 250 today Advises that her glucose monitor keeps beeping, [facility] Nurse advised that pt refused urgent jail visit but was advised to go to the urgent. Please contact pt [phone] Latvian Speaker documented in this encounter Plan of Treatment Upcoming Encounters Date Type Department Care Team (Late st Contact Info) Description 07/29/2024 9:30 AM EDT Medication Management [address] [address] Vaishnavi Laird, PharmD [address] [place] [address] 08/26/2024 9:00 AM EDT Clinical Support [address] [address] Suad Wilson, MARY documented as of this encounter Goals Goal Patient Goal Type Associated Problems Recent Progress Patient-Stated? Author Hemoglobin A1c < 7 Result Component 7.5( 10:10 AM EDT) No Puia Vaishnavi, PharmD Record your blood sugar as directed Result Component No PuiaChristoferVaishnavi, PharmD documented as of this encounter Visit Diagnoses Not on filedocumented in this encounter Additional Health Concerns Assessment Noted Time PHQ-9 Depression Total Score: 0 02/08/20 22 10:43 AM EST documented as of this encounter Care Teams [employer] Relationship Specialty Start Date End Date Ethel Chase DO [address] [place] [address] PCP - General Family Medicine 10/12/13 Vaishnavi Laird PharmD [address] [place] [address] Pharmacist Internal Medicine 02/07/23 [id number] 06/11/24 documented as of this encounter
--- OUTSIDE RECORDS SUMMARY | 2024-07-16 12:00 | XMS_ITS | Encounter Summary ---
Author Organization [facility] Address [address] [place] [address] Care Team Providers Care [employer] Salesperson Name Role Phone Matias Bowling MD Primary Care Provider [phone] Encounter Details Date Type Department Care Team (Late st Contact Info) Description 04/30/2024 Lab Requisition [facility] - Main Lab [address] [place] [address] Matias Bowling MD 38 [facility] [address] [place], [phone] Essential (primary) hypertension Social History Tobacco [...] LAB CHEMISTRY METHOD 05/01/2024 12:26 PM EST [facility] Potassium 4.7 3.5 - 5.5 mmol/L LAB CHEMISTRY METHOD 05/01/2024 12:26 PM EST [facility] Chloride 110 96 - 110 mmol/L LAB CHEMISTRY METHOD 05/01/2024 12:26 PM [facility] CO2 21 21 - 32 mmol/L LAB CHEMISTRY METHOD 05/01/2024 12:26 PM [facility] Anion Gap 11 3 - 11 LAB CHEMISTRY METHOD 05/01/2024 12:26 PM [facility] Glucose 138(H) 70 - 100 mg/dL LAB CHEMISTRY METHOD 05/01/2024 12:26 PM [facility] BUN 18 5 - 25 mg/dL LAB CHEMISTRY METHOD 05/01/2024 12:26 PM [facility] Creatinine 1.07 0.50 - 1.10 mg/dL LAB CHEMISTRY METHOD 05/01/2024 12:26 PM [facility] eGFR 57(L) >=60 mL/min/1. 73m2 LAB CHEMISTRY METHOD 05/01/2024 12:26 PM [facility] Comment:Calculation based on the??Chronic Kidney Disease Epidemiology Collaboration (CKD-EPI) equation refit??without adjustment for race. BUN/Creatinine Ratio 16.8 LAB CHEMISTRY METHOD 05/01/2024 12:26 PM [facility] Calcium 9.3 8.5 - 10.5 mg/dL LAB CHEMISTRY METHOD 05/01/2024 12:26 PM [facility] Blood Venous blood specimen / Unknown Venipuncture / Unknown 05/01/2024 4:57 AM EST 05/01/2024 11:00 AM EST us Matias Bowling MD LAB BLOOD ORDERABLES Final Resul t [facility] [address] [place] [address], * (ABNORMAL) Complete blood count (05/01/2024 4:57 AM EST) WBC 9.9 4.8 - 10.8 K/mcL LAB HEMETOLOGY METHOD 05/01/2024 11:34 AM [facility] RBC 3.50(L) 3.80 - 4.80 M/mcL LAB HEMETOLOGY METHOD 05/01/2024 11:34 AM [facility] Hemoglobin 9.3(L) 11.5 - 16.0 g/dL LAB HEMETOLOGY METHOD 05/01/2024 11:34 AM [facility] Hematocrit 31.7(L) 35.0 - 47.0 % LAB HEMETOLOGY METHOD 05/01/2024 11:34 AM [facility] MCV 90.3 79.0 - 98.0 FL LAB HEMETOLOGY METHOD 05/01/2024 11:34 AM [facility] MCH 26.5(L) 27.0 - 32.0 pcg LAB HEMETOLOGY METHOD 05/01/2024 11:34 AM [facility] MCHC 29.3(L) 32.0 - 37.0 g/dL LAB HEMETOLOGY METHOD 05/01/2024 11:34 AM [facility] RDW 14.7 11.0 - 15.0 % LAB HEMETOLOGY METHOD 05/01/2024 11:34 AM [facility] Platelets 312 130 - 400 K/mcL LAB HEMETOLOGY METHOD 05/01/2024 11:34 AM [facility] MPV 10.3 7.0 - 11.0 FL LAB HEMETOLOGY METHOD 05/01/2024 11:34 AM [facility] NRBC 0.0 <1.0 % LAB HEMETOLOGY METHOD 05/01/2024 11:34 AM [facility] NRBC Absolute 0.00 <0.10 K/mcL LAB HEMETOLOGY METHOD 05/01/2024 11:34 AM [facility] Blood Venous blood specimen / Unknown Venipuncture / Unknown 05/01/2024 4:57 AM EST 05/01/2024 11:00 AM EST us Matias Bowling MD LAB BLOOD ORDERABLES Final Resul t [facility] [address] [place] [address], documented in this encounter Visit Diagnoses Diagnosis Essential (primary) hypertension Unspecified essential hypertension documented in this encounter Additional Health Concerns Infection Onset Date Last Indicated Resolved Time Gastrointestinal Rule-Out 04/28/2024 04/27/2024 7:06 PM EDT C. difficile 05/29/2024 05/29/2024 06/22/2024 7:04 PM EDT C. Diff Rule-Out Infection 05/30/2024 05/29/2024 0 05/30/2024 9:47 AM EDT documented as of this encounter Care Teams [employer] Salesperson Relationship Specialty Start Date End Date Matias Bowling MD [address] [place] [address] [place] [address] PCP - General Family Medicine 04/16/24 documented as of this encounter
--- OUTSIDE RECORDS SUMMARY | 2024-07-16 12:00 | XMS_ITS | Encounter Summary ---
Author Organization [facility] Address [address] [place] [address] Care Team Providers Care Towing Pilot Name Role Phone Matias Bowling MD Primary Care Provider [phone] Encounter Details Date Type Department Care Team (Late st Contact Info) Description 05/27/2024 Lab Requisition [facility] - Main Lab [address] [place] [address] Matias Bowling MD 38 [facility] [address] [place], [phone] Essential (primary) hypertension Social History Tobacco [...] LAB CHEMISTRY METHOD 05/28/2024 10:13 AM EDT [facility] Potassium 4.2 3.5 - 5.5 mmol/L LAB CHEMISTRY METHOD 05/28/2024 10:13 AM EDT [facility] Chloride 103 96 - 110 mmol/L LAB CHEMISTRY METHOD 05/28/2024 10:[address] [facility] CO2 28 21 - 32 mmol/L LAB CHEMISTRY METHOD 05/28/2024 10:[address] [facility] Anion Gap 6 3 - 11 LAB CHEMISTRY METHOD 05/28/2024 10:[address] [facility] Glucose 141(H) 70 - 100 mg/dL LAB CHEMISTRY METHOD 05/28/2024 10:[address] [facility] BUN 13 5 - 25 mg/dL LAB CHEMISTRY METHOD 05/28/2024 10:[address] [facility] Creatinine 1.21(H) 0.50 - 1.10 mg/dL LAB CHEMISTRY METHOD 05/28/2024 10:[address] [facility] eGFR 49(L) >=60 mL/min/1. 73m2 LAB CHEMISTRY METHOD 05/28/2024 10:[address] [facility] Comment:Calculation based on the??Chronic Kidney Disease Epidemiology Collaboration (CKD-EPI) equation refit??without adjustment for race. BUN/Creatinine Ratio 10.7 LAB CHEMISTRY METHOD 05/28/2024 10:[address] [facility] Calcium 8.6 8.5 - 10.5 mg/dL LAB CHEMISTRY METHOD 05/28/2024 10:[address] [facility] AST (SGOT) 12 10 - 42 unit/L LAB CHEMISTRY METHOD 05/28/2024 10:[address] [facility] ALT (SGPT) 19 10 - 60 unit/L LAB CHEMISTRY METHOD 05/28/2024 10:[address] [facility] Alkaline Phosphatase 147(H) 42 - 121 unit/L LAB CHEMISTRY METHOD 05/28/2024 10:[address] [facility] Total Protein 6.3 6.0 - 8.0 g/dL LAB CHEMISTRY METHOD 05/28/2024 10:[address] [facility] Albumin 3.1(L) 3.2 - 5.0 g/dL LAB CHEMISTRY METHOD 05/28/2024 10:13 AM EDT [facility] Total Bilirubin 0.2 0.0 - 1.4 mg/dL LAB CHEMISTRY METHOD 05/28/2024 10:13 AM T [facility] Blood Venous blood specimen / Unknown Venipuncture / Unknown 05/28/2024 5:02 AM EDT 05/28/2024 9:04 AM EDT us Matias Bowling MD LAB BLOOD ORDERABLES Final Resul t [facility] [address] [place] [address], [place] [phone] * (ABNORMAL) Complete blood count (05/28/2024 5:02 AM EDT) WBC 10.3 4.8 - 10.8 K/mcL LAB HEMETOLOGY METHOD 05/28/2024 9:[address] [facility] RBC 3.30(L) 3.80 - 4.80 M/mcL LAB HEMETOLOGY METHOD 05/28/2024 9:[address] [facility] Hemoglobin 8.7(L) 11.5 - 16.0 g/dL LAB HEMETOLOGY METHOD 05/28/2024 9:26 AM T [facility] Hematocrit 28.7(L) 35.0 - 47.0 % LAB HEMETOLOGY METHOD 05/28/2024 9:26 AM EDT [facility] MCV 87.0 79.0 - 98.0 FL LAB HEMETOLOGY METHOD 05/28/2024 9:[address] [facility] MCH 26.4(L) 27.0 - 32.0 pcg LAB HEMETOLOGY METHOD 05/28/2024 [facility] MCHC 30.3(L) 32.0 - 37.0 g/dL LAB HEMETOLOGY METHOD 05/28/2024 9:26 AM EDT [facility] RDW 14.9 11.0 - 15.0 % LAB HEMETOLOGY METHOD 05/28/2024 9:26 AM EDT [facility] Platelets 281 130 - 400 K/mcL LAB HEMETOLOGY METHOD 05/28/2024 9:26 AM EDT [facility] MPV 10.2 7.0 - 11.0 FL LAB HEMETOLOGY METHOD 05/28/2024 9:26 AM EDT [facility] NRBC 0.0 <1.0 % LAB HEMETOLOGY METHOD 05/28/2024 9:26 AM EDT [facility] NRBC Absolute 0.00 <0.10 K/mcL LAB HEMETOLOGY METHOD 05/28/2024 9:26 AM EDT [facility] Blood Venous blood specimen / Unknown Venipuncture / Unknown 05/28/2024 5:02 AM EDT 05/28/2024 9:04 AM EDT us Matias Bowling MD LAB BLOOD ORDERABLES Final Resul t [facility] [address] [place] [address], documented in this encounter Visit Diagnoses Diagnosis Essential (primary) hypertension Unspecified essential hypertension documented in this encounter Additional Health Concerns Infection Onset Date Last Indicated Resolved Time C. difficile 05/29/2024 05/29/2024 06/22/2024 7:04 PM EDT C. Diff Rule-Out Infection 05/30/2024 05/29/2024 0 05/30/2024 9:47 AM EDT documented as of this encounter Care Teams Towing Pilot Relationship Specialty Start Date End Date Matias Bowling MD [address] [place] [phone] PCP - General Family Medicine 04/16/24 documented as of this encounter
--- OUTSIDE RECORDS SUMMARY | 2024-07-16 12:00 | XMS_ITS | Clinical Summary ---
Author Organization [address] Address [address] [place] [address] Phone Care Team Providers Care Poultry Pinner Name Role Phone Matias Bowling MD Primary Care Provider [phone] Encounters Date Type Department Care Team Description 06/10/2024 Lab Requisition [facility] [address] [place] [phone] Matias Bowling MD Essential (primary) hypertension 06/03/2024 Lab Requisition [facility] [address] [place] [phone] Matias Bowling MD Essential (primary) hypertension 05/30/2024 Lab Requisition [facility] [address] [place] [phone] Matias Bowling MD Diarrhea, unspecified 05/27/2024 Lab Requisition [facility] [address] [place] [phone] Matias Bowling MD Essential (primary) hypertension 05/22/2024 Lab Requisition [facility] [address] [place] [phone] Matias Bowling MD 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 classified elsewhere (CMS/HCC V24, CMS/HCC V28); Hyperlipidemia, unspecified 05/20/2024 Lab Requisition [facility] [address] [place] [address] Matias Bowling MD Essential (primary) hypertension 05/13/2024 Lab Requisition [facility] [address] [place] [address] Matias Bowling MD Essential (primary) hypertension 05/06/[address] [facility] - Main Lab [address] [place] [address] Matias Bowling MD Essential (primary) hypertension 04/30/2024 Lab Requisition [facility] Main Lab [address] [place] [phone] Matias Bowling MD Essential (primary) hypertension 04/29/2024 Lab Requisition [facility] Main Lab [address] [place] [phone] Matias Bowling MD Essential (primary) hypertension 04/29/[address] [facility] - Main Lab [address] [place] [phone] Matias Bowling MD Hyperlipidemia, unspecified; 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 classified elsewhere (CMS/HCC V24, CMS/HCC V28) 04/28/2024 Lab Requisition [facility] Main Lab [address] [place] [phone] Matias Bowling MD Diarrhea, unspecified 04/23/[address] [facility] - Main Lab [address] [place] [phone] Matias Bowling MD Essential (primary) hypertension from [...] 04/23/2024 5:04 AM EST Essential (primary) hypertension from Last 3 Months Results * (ABNORMAL) Complete blood count (06/04/2024 5:45 AM EDT) Only the most recent of9 resultswithin the time period is included. WBC 12.1(H) 4.8 - 10.8 K/mcL LAB HEMETOLOGY METHOD 06/04/2024 11:21 AM [facility] RBC 3.50(L) 3.80 - 4.80 M/mcL LAB HEMETOLOGY METHOD 06/04/2024 11:21 AM [facility] Hemoglobin 9.1(L) 11.5 - 16.0 g/dL LAB HEMETOLOGY METHOD 06/04/2024 11:21 AM [facility] Hematocrit 29.5(L) 35.0 - 47.0 % LAB HEMETOLOGY METHOD 06/04/2024 11:21 AM [facility] MCV 85.0 79.0 - 98.0 FL LAB HEMETOLOGY METHOD 06/04/2024 11:21 AM [facility] MCH 26.2(L) 27.0 - 32.0 pcg LAB HEMETOLOGY METHOD 06/04/2024 11:21 AM [facility] MCHC 30.8(L) 32.0 - 37.0 g/dL LAB HEMETOLOGY METHOD 06/04/2024 11:21 AM [facility] RDW 14.9 11.0 - 15.0 % LAB HEMETOLOGY METHOD 06/04/2024 11:21 AM EDT [facility] Platelets 309 130 - 400 K/mcL LAB HEMETOLOGY METHOD 06/04/2024 11:21 AM EDT [facility] MPV 10.0 7.0 - 11.0 FL LAB HEMETOLOGY METHOD 06/04/2024 11:21 AM EDT [facility] NRBC 0.0 <1.0 % LAB HEMETOLOGY METHOD 06/04/2024 11:21 AM EDT [facility] NRBC Absolute 0.00 <0.10 K/mcL LAB HEMETOLOGY METHOD 06/04/2024 11:21 AM [facility] Blood Venous blood specimen / Unknown Venipuncture / Unknown 06/04/2024 5:45 AM EDT 06/04/2024 11:02 AM EDT us Matias Bowling MD LAB BLOOD ORDERABLES Final Resul t [facility] [address] [place] [address], * (ABNORMAL) Comprehensive metabolic panel (06/04/2024 5:45 AM EDT) Only the most recent of7 resultswithin the time period is included. Sodium 139 133 - 145 mmol/L LAB CHEMISTRY METHOD 06/04/2024 11:53 AM T [facility] Potassium 4.5 3.5 - 5.5 mmol/L LAB CHEMISTRY METHOD 06/04/2024 11:53 AM [facility] Chloride 102 96 - 110 mmol/L LAB CHEMISTRY METHOD 06/04/2024 11:53 AM [facility] CO2 29 21 - 32 mmol/L LAB CHEMISTRY METHOD 06/04/2024 11:53 AM T [facility] Anion Gap 8 3 - 11 LAB CHEMISTRY METHOD 06/04/2024 11:53 AM [facility] Glucose 159(H) 70 - 100 mg/dL LAB CHEMISTRY METHOD 06/04/2024 11:53 AM [facility] BUN 11 5 - 25 mg/dL LAB CHEMISTRY METHOD 06/04/2024 11:53 AM [facility] Creatinine 1.11(H) 0.50 - 1.10 mg/dL LAB CHEMISTRY METHOD 06/04/2024 11:53 AM [facility] eGFR 54(L) >=60 mL/min/1. 73m2 LAB CHEMISTRY METHOD 06/04/2024 11:53 AM [facility] Comment:Calculation based on the??Chronic Kidney Disease Epidemiology Collaboration (CKD-EPI) equation refit??without adjustment for race. BUN/Creatinine Ratio 9.9 LAB CHEMISTRY METHOD 06/04/2024 11:53 AM [facility] Calcium 9.0 8.5 - 10.5 mg/dL LAB CHEMISTRY METHOD 06/04/2024 11:53 AM [facility] AST (SGOT) 16 10 - 42 unit/L LAB CHEMISTRY METHOD 06/04/2024 11:53 AM [facility] ALT (SGPT) 17 10 - 60 unit/L LAB CHEMISTRY METHOD 06/04/2024 11:53 AM [facility] Alkaline Phosphatase 144(H) 42 - 121 unit/L LAB CHEMISTRY METHOD 06/04/2024 11:53 AM [facility] Total Protein 6.7 6.0 - 8.0 g/dL LAB CHEMISTRY METHOD 06/04/2024 11:53 AM [facility] Albumin 3.2 3.2 - 5.0 g/dL LAB CHEMISTRY METHOD 06/04/2024 11:53 AM [facility] Total Bilirubin 0.2 0.0 - 1.4 mg/dL LAB CHEMISTRY METHOD 06/04/2024 11:53 AM EDT [facility] Blood Venous blood specimen / Unknown Venipuncture / Unknown 06/04/2024 5:45 AM EDT 06/04/2024 11:02 AM EDT Matias Bolwing MD LAB BLOOD ORDERABLES Final Resul t [facility] [address] [place] [address], [place] [phone] * Occult blood stool, guaiac (05/29/2024 1:50 PM EDT) Occult Blood, Stool #1 Negative Negative 05/30/2024 9:30 AM EDT [facility] Stool Rectum structure / Unknown Non-blood Collection / Unknown 05/29/2024 1:50 PM EDT 05/30/2024 8:36 AM EDT Matias Bowling MD LAB BODY FLUIDS AND STOOLS ORDER MARGARET Final Result Performing Organization Address City/[facility]/ZIP Co de Phone Number [facility] [address] [place] [address], [place] [phone] * Ova and parasite examination (05/29/2024 1:50 PM EDT) Ova and Parasite No Ova or Parasite seen. 06/03/2024 10:02 AM EDT [facility] Stool Rectum structure / Unknown Non-blood Collection / Unknown 05/29/2024 1:50 PM EDT 05/30/2024 8:36 AM EDT Narrative [facility] - 06/03/2024 10:02 AM EDT Special test request required for Coccidia and Microsporidia. us Matias Bowling MD LAB MICROBIOLOGY - GENERAL ORDER MARGARET Final Result Performing Organization Address [facility]/[place] Co de Phone Number [facility] [address] [place] [address], [place] [phone] * (ABNORMAL) Clostridium difficile molecular study (05/29/2024 1:50 PM EDT) Pathologist [facility] Clostridium difficile PCR Positive (AA) Negative LAB MICROBIOLOGY METHOD 05/30/2024 11:16 AM EDT [facility] Comment: CRITICAL RESULT POSITIVE FOR TOXIN PRODUCING CLOSTRIDIOIDES DIFFICILE, NO ADDITIONAL TESTING IS NECESSARY. REPEAT SAMPLES SHOULD NOT BE SUBMITTED FOR TEST OF CURE. Stool Rectum structure / Unknown Non-blood Collection / Unknown 05/29/2024 1:50 PM EDT 05/30/2024 9:47 AM EDT Matias Bowling MD LAB MICROBIOLOGY - GENERAL ORDER MARGARET Final Result Performing Organization Address [facility]/[place] Co de Phone Number [facility] [address] [place] [address], [place] [phone] * Clostridium difficile toxin (05/29/2024 1:50 PM EDT) Pathologist [facility] C difficile Toxins A+B, EIA 05/30/2024 9:47 AM EDT [facility] Comment:Refer to C. difficil e PCR assay for results. Stool Rectum structure / Unknown Non-blood Collection / Unknown 05/29/2024 1:50 PM EDT 05/30/2024 8:36 AM EDT Matias Bowling MD LAB MICROBIOLOGY - GENERAL ORDER MARGARET Final Result Performing Organization Address [facility] Co de Phone Number [facility] [address] [place] [address], [place] [phone] * (ABNORMAL) Basic metabolic panel (05/22/2024 8:23 AM EDT) Only the most recent of2 resultswithin the time period is included. Sodium 134 133 - 145 mmol/L LAB CHEMISTRY METHOD 05/22/2024 11:37 AM [facility] Potassium 5.2 3.5 - 5.5 mmol/L LAB CHEMISTRY METHOD 05/22/2024 11:37 AM [facility] Chloride 102 96 - 110 mmol/L LAB CHEMISTRY METHOD 05/22/2024 11:37 AM [facility] CO2 25 21 - 32 mmol/L LAB CHEMISTRY METHOD 05/22/2024 11:37 AM [facility] Anion Gap 7 3 - 11 LAB CHEMISTRY METHOD 05/22/2024 11:37 AM [facility] Glucose 163(H) 70 - 100 mg/dL LAB CHEMISTRY METHOD 05/22/2024 11:37 AM [facility] BUN 18 5 - 25 mg/dL LAB CHEMISTRY METHOD 05/22/2024 11:37 AM [facility] Creatinine 1.65(H) 0.50 - 1.10 mg/dL LAB CHEMISTRY METHOD 05/22/2024 11:37 AM [facility] eGFR 34(L) >=60 mL/min/1. 73m2 LAB CHEMISTRY METHOD 05/22/2024 11:37 AM [facility] Comment:Calculation based on the??Chronic Kidney Disease Epidemiology Collaboration (CKD-EPI) equation refit??without adjustment for race. BUN/Creatinine Ratio 10.9 LAB CHEMISTRY METHOD 05/22/2024 11:37 AM [facility] Calcium 8.8 8.5 - 10.5 mg/dL LAB CHEMISTRY METHOD 05/22/2024 11:37 AM [facility] Blood Venous blood specimen / Unknown Venipuncture / Unknown 05/22/2024 8:23 AM EDT 05/22/2024 10:31 AM EDT us Matias Bowling MD LAB BLOOD ORDERABLES Final Resul t [facility] [address] [place] [address], [place] [phone] from Last 3 Months Insurance [facility] Member Subscriber Plan / Payer (Ef fective 2022-Present) Name:Trish Hunter Relation to Subscriber:Self Name:Trish Hunter Payer ID:[id number] Group ID:[id number] Type:Not on file Address: [place] [address] [address] [id number] Care Teams Poultry Pinner Relationship Specialty Start Date End Date Matias Bowling MD [address] [place] [phone] PCP - General Family Medicine 04/16/24
--- OUTSIDE RECORDS SUMMARY | 2024-07-16 12:00 | XMS_ITS | Encounter Summary ---
Author Organization [employer] Address [address] [place] [address] [address] [place] [address] Care Team Providers Care Rrt Name Role Phone Ethel Chase Primary Care Provider Vaishnavi Laird PharmD Unavailable [phone] Encounter Details Date Type Department Care Team (Late Contact Info) Description 02/09/2022 Orders Only [facility] [address] [place] [address] Sadie Rivera, ANP [address] [place] [address] Social History Tobacco Use Types Packs/Day Years [...] Description 07/29/2024 9:30 AM EDT Medication Management [address] [address] Vaishnavi Laird PharmD [address] [place] [address] 08/26/2024 9:00 AM EDT Clinical Support [address] [address] Suad Wilson, MARY documented as of this encounter Visit Diagnoses Not on filedocumented in this encounter Additional Health Concerns Assessment Noted Time PHQ-9 Depression Total Score: 0 02/08/20 22 10:43 AM EST documented as of this encounter Care Teams Rrt Relationship Specialty Start Date End Date Ethel Chase DO [address] [place] [phone] PCP - General Family Medicine 10/12/13 Vaishnavi Laird, Zana [address] [place] [phone] Pharmacist Internal Medicine 02/07/23 [id number] 06/11/24 documented as of this encounter
--- OUTSIDE RECORDS SUMMARY | 2024-07-16 12:00 | XMS_ITS | Encounter Summary ---
Author Organization [facility] Address [address] [place] [address] Care Team Providers Care Furniture Upholstery Mechanic Name Role Phone Matias Bowling MD Primary Care Provider [phone] Encounter Details Date Type Department Care Team (Late st Contact Info) Description 06/03/2024 Lab Requisition [facility] - Main Lab [address] [place] [address] Matias Bowling MD 38 [facility] [address] [place], [address] Essential (primary) hypertension Social History Tobacco [...] LAB CHEMISTRY METHOD 06/04/2024 11:53 AM EDT [facility] Potassium 4.5 3.5 - 5.5 mmol/L LAB CHEMISTRY METHOD 06/04/2024 11:53 AM EDT [facility] Chloride 102 96 - 110 mmol/L LAB CHEMISTRY METHOD 06/04/2024 11:53 AM [facility] CO2 29 21 - 32 mmol/L LAB CHEMISTRY METHOD 06/04/2024 11:53 AM [facility] Anion Gap 8 3 - 11 LAB CHEMISTRY METHOD 06/04/2024 11:53 AM [facility] Glucose 159(H) 70 - 100 mg/dL LAB CHEMISTRY METHOD 06/04/2024 11:53 AM [facility] BUN 11 5 - 25 mg/dL LAB CHEMISTRY METHOD 06/04/2024 11:53 AM [facility] Creatinine 1.11(H) 0.50 - 1.10 mg/dL LAB CHEMISTRY METHOD 06/04/2024 11:53 AM [facility] eGFR 54(L) >=60 mL/min/1. 73m2 LAB CHEMISTRY METHOD 06/04/2024 11:53 AM [facility] Comment:Calculation based on the??Chronic Kidney Disease Epidemiology Collaboration (CKD-EPI) equation refit??without adjustment for race. BUN/Creatinine Ratio 9.9 LAB CHEMISTRY METHOD 06/04/2024 11:53 AM [facility] Calcium 9.0 8.5 - 10.5 mg/dL LAB CHEMISTRY METHOD 06/04/2024 11:53 AM [facility] AST (SGOT) 16 10 - 42 unit/L LAB CHEMISTRY METHOD 06/04/2024 11:53 AM [facility] ALT (SGPT) 17 10 - 60 unit/L LAB CHEMISTRY METHOD 06/04/2024 11:53 AM [facility] Alkaline Phosphatase 144(H) 42 - 121 unit/L LAB CHEMISTRY METHOD 06/04/2024 11:53 AM [facility] Total Protein 6.7 6.0 - 8.0 g/dL LAB CHEMISTRY METHOD 06/04/2024 11:53 AM [facility] Albumin 3.2 3.2 - 5.0 g/dL LAB CHEMISTRY METHOD 06/04/2024 11:53 AM EDT [facility] Total Bilirubin 0.2 0.0 - 1.4 mg/dL LAB CHEMISTRY METHOD 06/04/2024 11:53 AM EDT [facility] Blood Venous blood specimen / Unknown Venipuncture / Unknown 06/04/2024 5:45 AM EDT 06/04/2024 11:02 AM EDT us Matias Bowling MD LAB BLOOD ORDERABLES Final Resul t [facility] [address] [place] [address], [place] [phone] * (ABNORMAL) Complete blood count (06/04/2024 5:45 AM EDT) WBC 12.1(H) 4.8 - 10.8 K/mcL LAB HEMETOLOGY METHOD 06/04/2024 11:21 AM EDT [facility] RBC 3.50(L) 3.80 - 4.80 M/mcL LAB HEMETOLOGY METHOD 06/04/2024 11:21 AM [facility] Hemoglobin 9.1(L) 11.5 - 16.0 g/dL LAB HEMETOLOGY METHOD 06/04/2024 11:21 AM T [facility] Hematocrit 29.5(L) 35.0 - 47.0 % LAB HEMETOLOGY METHOD 06/04/2024 11:21 AM EDT [facility] MCV 85.0 79.0 - 98.0 FL LAB HEMETOLOGY METHOD 06/04/2024 11:21 AM [facility] MCH 26.2(L) 27.0 - 32.0 pcg LAB HEMETOLOGY METHOD 06/04/2024 11:21 AM EDT [facility] MCHC 30.8(L) 32.0 - 37.0 g/dL LAB HEMETOLOGY METHOD 06/04/2024 11:21 AM EDT [facility] RDW 14.9 11.0 - 15.0 % LAB HEMETOLOGY METHOD 06/04/2024 11:21 AM EDT [facility] Platelets 309 130 - 400 K/mcL LAB HEMETOLOGY METHOD 06/04/2024 11:21 AM EDT [facility] MPV 10.0 7.0 - 11.0 FL LAB HEMETOLOGY METHOD 06/04/2024 11:21 AM EDT [facility] NRBC 0.0 <1.0 % LAB HEMETOLOGY METHOD 06/04/2024 11:21 AM EDT [facility] NRBC Absolute 0.00 <0.10 K/mcL LAB HEMETOLOGY METHOD 06/04/2024 11:21 AM EDT [facility] Blood Venous blood specimen / Unknown Venipuncture / Unknown 06/04/2024 5:45 AM EDT 06/04/2024 11:02 AM EDT us Matias Bowling MD LAB BLOOD ORDERABLES Final Resul t [facility] [address] [place] [address], documented in this encounter Visit Diagnoses Diagnosis Essential (primary) hypertension Unspecified essential hypertension documented in this encounter Additional Health Concerns Infection Onset Date Last Indicated Resolved Time C. difficile 05/29/2024 05/29/2024 06/22/2024 7:04 PM EDT documented as of this encounter Care Teams Furniture Upholstery Mechanic Relationship Specialty Start Date End Date Matias Bowling MD [address] [phone] PCP - General Family Medicine 04/16/24 documented as of this encounter
--- OUTSIDE RECORDS SUMMARY | 2024-07-16 12:00 | XMS_ITS | Encounter Summary ---
Author Organization [facility] Address [address] [place] [address] Care Team Providers Care Economics Department Chair Name Role Phone Matias Bowling MD Primary Care Provider [phone] Encounter Details Date Type Department Care Team (Late st Contact Info) Description 05/13/2024 Lab Requisition [facility] - Main Lab [address] [place] [address] Matias Bowling MD 38 [facility] [address] [place], [address] Essential (primary) hypertension Social History Tobacco [...] LAB CHEMISTRY METHOD 05/14/2024 11:24 AM EDT [facility] Potassium 5.2 3.5 - 5.5 mmol/L LAB CHEMISTRY METHOD 05/14/2024 11:24 AM EDT [facility] Chloride 108 96 - 110 mmol/L LAB CHEMISTRY METHOD 05/14/2024 11:24 AM [facility] CO2 25 21 - 32 mmol/L LAB CHEMISTRY METHOD 05/14/2024 11:24 AM [facility] Anion Gap 5 3 - 11 LAB CHEMISTRY METHOD 05/14/2024 11:24 AM [facility] Glucose 132(H) 70 - 100 mg/dL LAB CHEMISTRY METHOD 05/14/2024 11:24 AM [facility] BUN 13 5 - 25 mg/dL LAB CHEMISTRY METHOD 05/14/2024 11:24 AM [facility] Creatinine 1.06 0.50 - 1.10 mg/dL LAB CHEMISTRY METHOD 05/14/2024 11:24 AM [facility] eGFR 57(L) >=60 mL/min/1. 73m2 LAB CHEMISTRY METHOD 05/14/2024 11:24 AM [facility] Comment:Calculation based on the??Chronic Kidney Disease Epidemiology Collaboration (CKD-EPI) equation refit??without adjustment for race. BUN/Creatinine Ratio 12.3 LAB CHEMISTRY METHOD 05/14/2024 11:24 AM [facility] Calcium 9.6 8.5 - 10.5 mg/dL LAB CHEMISTRY METHOD 05/14/2024 11:24 AM [facility] AST (SGOT) 20 10 - 42 unit/L LAB CHEMISTRY METHOD 05/14/2024 11:24 AM [facility] ALT (SGPT) 28 10 - 60 unit/L LAB CHEMISTRY METHOD 05/14/2024 11:24 AM [facility] Alkaline Phosphatase 160(H) 42 - 121 unit/L LAB CHEMISTRY METHOD 05/14/2024 11:24 AM [facility] Total Protein 6.6 6.0 - 8.0 g/dL LAB CHEMISTRY METHOD 05/14/2024 11:24 AM [facility] Albumin 3.2 3.2 - 5.0 g/dL LAB CHEMISTRY METHOD 05/14/2024 11:24 AM EDT [facility] Total Bilirubin 0.2 0.0 - 1.4 mg/dL LAB CHEMISTRY METHOD 05/14/2024 11:24 AM EDT [facility] Blood Venous blood specimen / Unknown Venipuncture / Unknown 05/14/2024 6:06 AM EDT 05/14/2024 9:53 AM EDT us Matias Bowling MD LAB BLOOD ORDERABLES Final Resul t [facility] [address] [place] [address], [place] [phone] * (ABNORMAL) Complete blood count (05/14/2024 6:06 AM EDT) WBC 8.8 4.8 - 10.8 K/mcL LAB HEMETOLOGY METHOD 05/14/2024 10:16 AM T [facility] RBC 3.50(L) 3.80 - 4.80 M/mcL LAB HEMETOLOGY METHOD 05/14/2024 10:16 AM T [facility] Hemoglobin 9.4(L) 11.5 - 16.0 g/dL LAB HEMETOLOGY METHOD 05/14/2024 10:16 AM EDT [facility] Hematocrit 30.4(L) 35.0 - 47.0 % LAB HEMETOLOGY METHOD 05/14/2024 10:16 AM EDT [facility] MCV 85.9 79.0 - 98.0 FL LAB HEMETOLOGY METHOD 05/14/2024 10:16 AM T [facility] MCH 26.6(L) 27.0 - 32.0 pcg LAB HEMETOLOGY METHOD 05/14/2024 10:16 AM T [facility] MCHC 30.9(L) 32.0 - 37.0 g/dL LAB HEMETOLOGY METHOD 05/14/2024 10:16 AM EDT [facility] RDW 14.6 11.0 - 15.0 % LAB HEMETOLOGY METHOD 05/14/2024 10:16 AM EDT [facility] Platelets 275 130 - 400 K/mcL LAB HEMETOLOGY METHOD 05/14/2024 10:16 AM EDT [facility] MPV 10.1 7.0 - 11.0 FL LAB HEMETOLOGY METHOD 05/14/2024 10:16 AM EDT [facility] NRBC 0.0 <1.0 % LAB HEMETOLOGY METHOD 05/14/2024 10:16 AM EDT [facility] NRBC Absolute 0.00 <0.10 K/mcL LAB HEMETOLOGY METHOD 05/14/2024 10:16 AM EDT [facility] Blood Venous blood specimen / Unknown Venipuncture / Unknown 05/14/2024 6:06 AM EDT 05/14/2024 9:53 AM EDT us Matias Bowling MD LAB BLOOD ORDERABLES Final Resul t [facility] [address] [place] [address], documented in this encounter Visit Diagnoses Diagnosis Essential (primary) hypertension Unspecified essential hypertension documented in this encounter Additional Health Concerns Infection Onset Date Last Indicated Resolved Time Gastrointestinal Rule-Out 04/28/2024 04/27/2024 7:06 PM EDT C. difficile 05/29/2024 05/29/2024 06/22/2024 7:04 PM EDT C. Diff Rule-Out Infection 05/30/2024 05/29/2024 0 05/30/2024 9:47 AM EDT documented as of this encounter Care Teams Economics Department Chair Relationship Specialty Start Date End Date Matias Bowling MD 38 [facility] [address] [place] [phone] PCP - General Family Medicine 04/16/24 documented as of this encounter
--- OUTSIDE RECORDS SUMMARY | 2024-07-16 12:00 | XMS_ITS | Encounter Summary ---
Author Organization [facility] Address [address] [place] [address] Care Team Providers Care Nail Professional Name Role Phone Matias Bowling MD Primary Care Provider [phone] Encounter Details Date Type Department Care Team (Late st Contact Info) Description 05/30/[address] [facility] - Main Lab 299 [facility] [place] [address] Matias Bowling MD 38 [facility] [address] [place], [address] Diarrhea, unspecified Social History Tobacco Use [...] LAB MICROBIOLOGY METHOD 05/30/2024 11:16 AM EDT [facility] Comment: CRITICAL RESULT POSITIVE FOR TOXIN PRODUCING CLOSTRIDIOIDES DIFFICILE, NO ADDITIONAL TESTING IS NECESSARY. REPEAT SAMPLES SHOULD NOT BE SUBMITTED FOR TEST OF CURE. Stool Rectum structure / Unknown Non-blood Collection / Unknown 05/29/2024 1:50 PM EDT 05/30/2024 9:47 AM EDT Matias Bowling MD LAB MICROBIOLOGY - GENERAL ORDER MARGARET Final Result Performing Organization Address City/[facility]/ZIP Co de Phone Number [facility] [address] [place] [address], [place] [phone] * Occult blood stool, guaiac (05/29/2024 1:50 PM EDT) Occult Blood, Stool #1 Negative Negative 05/30/2024 9:30 AM EDT [facility] Stool Rectum structure / Unknown Non-blood Collection / Unknown 05/29/2024 1:50 PM EDT 05/30/2024 8:36 AM EDT Matias Bowling MD LAB BODY FLUIDS AND STOOLS ORDER MARGARET Final Result Performing Organization Address [facility]/ZIP Co de Phone Number [facility] [address] [place] [address], [place] [phone] * Ova and parasite examination (05/29/2024 1:50 PM EDT) Ova and Parasite No Ova or Parasite seen. 06/03/2024 10:02 AM EDT [facility] Stool Rectum structure / Unknown Non-blood Collection / Unknown 05/29/2024 1:50 PM EDT 05/30/2024 8:36 AM EDT Narrative [facility] - 06/03/2024 10:02 AM EDT Special test request required for Coccidia and Microsporidia. Matias Bowling MD LAB MICROBIOLOGY - GENERAL ORDER MARGARET Final Result Performing Organization Address [facility]/ZIP Co de Phone Number [facility] [address] [place] [address], [place] [phone] * Clostridium difficile toxin (05/29/2024 1:50 PM EDT) C difficile Toxins A+B, EIA 05/30/2024 9:47 AM EDT [facility] Comment:Refer to C. difficil e PCR assay for results. Stool Rectum structure / Unknown Non-blood Collection / Unknown 05/29/2024 1:50 PM EDT 05/30/2024 8:36 AM EDT Matias Bowling MD LAB MICROBIOLOGY - GENERAL ORDER MARGARET Final Result Performing Organization Address [facility] Co de Phone Number [facility] [address] [place] [address], [place] [phone] documented in this encounter Visit Diagnoses Diagnosis Diarrhea, unspecified documented in this encounter Additional Health Concerns Infection Onset Date Last Indicated Resolved Time C. difficile 05/29/2024 05/29/2024 06/22/2024 7:04 PM EDT C. Diff Rule-Out Infection 05/30/2024 05/29/2024 0 05/30/2024 9:47 AM EDT documented as of this encounter Care Teams Nail Professional Relationship Specialty Start Date End Date Matias Bowling MD [address] [place] [address] [address] [place] [address] PCP - General Family Medicine 04/16/24 documented as of this encounter
--- OUTSIDE RECORDS SUMMARY | 2024-07-16 12:00 | XMS_ITS | Encounter Summary ---
Author Organization [facility] Address [address] [place] [phone] Care Team Providers Care Retail Wireless Sales Consultant Name Role Phone Matias Bowling MD Primary Care Provider [phone] Encounter Details Date Type Department Care Team (Late st Contact Info) Description 06/10/2024 Lab Requisition [facility] - Main Lab 299 [facility] [email or web address] [address] Matias Bowling MD 38 [facility] 204 [facility] [address] Essential (primary) hypertension Social History [...] documented as of this encounter Care Teams Retail Wireless Sales Consultant Relationship Specialty Start Date End Date Matias Bowling MD 38 [facility] [address] [place] [address] PCP - General Family Medicine 04/16/24 documented as of this encounter
--- OUTSIDE RECORDS SUMMARY | 2024-07-16 12:00 | XMS_ITS | Encounter Summary ---
Author Organization [employer] Address [address] [facility] [address] [place] [id number] Care Team Providers Care Material Chaser Name Role Phone ManuelEthel perry Primary Care Provider [phone] Vaishnavi Liard PharmD Unavailable [phone] Reason for Visit * Reason Comments Med Refill Encounter Details Date Type Department Care Team ([facility] st Contact Info) Description 02/02/2023 Refill [facility] MEDICINE [address] [place] [address] Sadie Rivera, ANP [address] [place] [address] Type 2 diabetes mellitus with other specified complication, 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 ([facility]) Social History Tobacco Use Types Packs/Day Years [...] Description 07/29/2024 9:30 AM EDT Medication Management [address] [address] Vaishnavi Laird PharmD [address] [place] [address] 08/26/2024 9:00 AM EDT Clinical Support [address] [address] Suad Wilson, MARY documented as of this encounter Visit Diagnoses Diagnosis Type 2 diabetes mellitus with other specified complication, unspecified whether nursing home insulin use ([facility]) documented in this encounter Additional Health Concerns Assessment Noted Time PHQ-9 Depression Total Score: 0 02/08/20 22 10:43 AM EST documented as of this encounter Care Teams Material Chaser Relationship Specialty Start Date End Date Ethel Chase DO [address] [place] [address] PCP - General Family Medicine 10/12/13 Vaishnavi Laird PharmD [address] [place] [address] Pharmacist Internal Medicine 02/07/23 [id number] 06/11/24 documented as of this encounter
== END 2024-07-16 12:09 | disposition home or self-care (01) ==
LOC: HO.HOS 11:21
PROVIDERS: Visit Provider Physician Assistant
DX: M97.12XA Periprosthetic fracture around internal prosthetic left knee joint, initial encounter (principal); Z96.652 Presence of left artificial knee joint
CPT/HCPCS: 99213; G2211

== ENCOUNTER → 2024-07-16 11:24 | Outpatient (BNV) | payer OTHER, SELFPAY | PROVIDERS: Visit Provider Radiology Diagnostic Radiology | DX: M79.605 Pain in left leg (principal) | CPT/HCPCS: 73552 ==

== ENCOUNTER 2024-07-16 11:35 | Outpatient (REF) | payer OTHER, SELFPAY ==
--- NOTE | ~2024-07-16 | XR_ITS ---
EXAMINATION: XR FEMUR, LEFT CLINICAL INFORMATION: M79.606 - Pain in leg, unspecified COMPARISON: June 03, 2024. TECHNIQUE: AP and lateral views of the left femur were obtained. FINDINGS: There is an area of sclerosis and faint callus formation at the medial aspect of the distal diaphyseal femoral fracture. There is loosening surrounding the femoral component of the metallic prosthesis, left knee. No gross malalignment. Left coxofemoral joint is intact with normal alignment. XR/XR femur LT 2V IMPRESSION: Minimal healing fracture distal femur. Concerning loosening surrounding the femoral prosthesis component, left knee. Electronically signed by: Titus Thomas MD 07/16/2024 01:54 PM EDT
--- OUTSIDE RECORDS SUMMARY | 2024-07-17 11:38 | XMS_ITS | Encounter Summary ---
Author Organization [facility] Address [address] [place] [address] Care Team Providers Care Poultry Packer Name Role Phone Matias Bowling MD Primary Care Provider [phone] Encounter Details Date Type Department Care Team (Late st Contact Info) Description 05/06/2024 Lab Requisition [facility] - Main Lab [address] [place] [address] Matias Bowling MD 38 [facility] [address] [place], [address] Essential (primary) hypertension Social History Tobacco [...] LAB CHEMISTRY METHOD 05/07/2024 10:37 AM EDT [facility] Potassium 4.9 3.5 - 5.5 mmol/L LAB CHEMISTRY METHOD 05/07/2024 10:37 AM EDT [facility] Chloride 111(H) 96 - 110 mmol/L LAB CHEMISTRY METHOD 05/07/2024 10:37 AM [facility] CO2 22 21 - 32 mmol/L LAB CHEMISTRY METHOD 05/07/2024 10:37 AM [facility] Anion Gap 8 3 - 11 LAB CHEMISTRY METHOD 05/07/2024 10:37 AM [facility] Glucose 121(H) 70 - 100 mg/dL LAB CHEMISTRY METHOD 05/07/2024 10:37 AM [facility] BUN 15 5 - 25 mg/dL LAB CHEMISTRY METHOD 05/07/2024 10:37 AM [facility] Creatinine 1.02 0.50 - 1.10 mg/dL LAB CHEMISTRY METHOD 05/07/2024 10:37 AM [facility] eGFR 60 >=60 mL/min/1. 73m2 LAB CHEMISTRY METHOD 05/07/2024 10:37 AM [facility] Comment:Calculation based on the??Chronic Kidney Disease Epidemiology Collaboration (CKD-EPI) equation refit??without adjustment for race. BUN/Creatinine Ratio 14.7 LAB CHEMISTRY METHOD 05/07/2024 10:37 AM [facility] Calcium 9.1 8.5 - 10.5 mg/dL LAB CHEMISTRY METHOD 05/07/2024 10:37 AM [facility] AST (SGOT) 15 10 - 42 unit/L LAB CHEMISTRY METHOD 05/07/2024 10:37 AM [facility] ALT (SGPT) 20 10 - 60 unit/L LAB CHEMISTRY METHOD 05/07/2024 10:37 AM [facility] Alkaline Phosphatase 161(H) 42 - 121 unit/L LAB CHEMISTRY METHOD 05/07/2024 10:37 AM [facility] Total Protein 6.4 6.0 - 8.0 g/dL LAB CHEMISTRY METHOD 05/07/2024 10:37 AM [facility] Albumin 3.1(L) 3.2 - 5.0 g/dL LAB CHEMISTRY METHOD 05/07/2024 10:37 AM EDT [facility] Total Bilirubin 0.2 0.0 - 1.4 mg/dL LAB CHEMISTRY METHOD 05/07/2024 10:37 AM [facility] Blood Venous blood specimen / Unknown Venipuncture / Unknown 05/07/2024 5:12 AM EDT 05/07/2024 8:53 AM EDT us Matias Bowling MD LAB BLOOD ORDERABLES Final Resul t [facility] [address] [place] [address], [place] [phone] * (ABNORMAL) Complete blood count (05/07/2024 5:12 AM EDT) WBC 9.6 4.8 - 10.8 K/mcL LAB HEMETOLOGY METHOD 05/07/2024 10:09 AM [facility] RBC 3.60(L) 3.80 - 4.80 M/mcL LAB HEMETOLOGY METHOD 05/07/2024 10:09 AM [facility] Hemoglobin 9.4(L) 11.5 - 16.0 g/dL LAB HEMETOLOGY METHOD 05/07/2024 10:09 AM [facility] Hematocrit 31.5(L) 35.0 - 47.0 % LAB HEMETOLOGY METHOD 05/07/2024 10:09 AM [facility] MCV 88.2 79.0 - 98.0 FL LAB HEMETOLOGY METHOD 05/07/2024 10:09 AM [facility] MCH 26.3(L) 27.0 - 32.0 pcg LAB HEMETOLOGY METHOD 05/07/2024 10:09 AM [facility] MCHC 29.8(L) 32.0 - 37.0 g/dL LAB HEMETOLOGY METHOD 05/07/2024 10:09 AM EDT [facility] RDW 14.6 11.0 - 15.0 % LAB HEMETOLOGY METHOD 05/07/2024 10:09 AM EDT [facility] Platelets 303 130 - 400 K/mcL LAB HEMETOLOGY METHOD 05/07/2024 10:09 AM EDT [facility] MPV 10.1 7.0 - 11.0 FL LAB HEMETOLOGY METHOD 05/07/2024 10:09 AM EDT [facility] NRBC 0.0 <1.0 % LAB HEMETOLOGY METHOD 05/07/2024 10:09 AM EDT [facility] NRBC Absolute 0.00 <0.10 K/mcL LAB HEMETOLOGY METHOD 05/07/2024 10:09 AM EDT [facility] Blood Venous blood specimen / Unknown Venipuncture / Unknown 05/07/2024 5:12 AM EDT 05/07/2024 8:53 AM EDT us Matias Bowling MD LAB BLOOD ORDERABLES Final Resul t [facility] [address] [place] [address], documented in this encounter Visit Diagnoses Diagnosis Essential (primary) hypertension Unspecified essential hypertension documented in this encounter Additional Health Concerns Infection Onset Date Last Indicated Resolved Time Gastrointestinal Rule-Out 04/28/2024 04/27/2024 7:06 PM EDT C. difficile 05/29/2024 05/29/2024 06/22/2024 7:04 PM EDT C. Diff Rule-Out Infection 05/30/2024 05/29/2024 0 05/30/2024 9:47 AM EDT documented as of this encounter Care Teams Poultry Packer Relationship Specialty Start Date End Date Matias Bowling MD [address] [place] [address] PCP - General Family Medicine 04/16/24 documented as of this encounter
== END 2024-07-16 11:36 | disposition home or self-care (01) ==
LOC: HO.HOSX 11:35
PROVIDERS: Visit Provider Physician Assistant
DX: M97.12XA Periprosthetic fracture around internal prosthetic left knee joint, initial encounter (principal); Z96.652 Presence of left artificial knee joint; M79.605 Pain in left leg
CPT/HCPCS: 73552; 99212

== ENCOUNTER 2024-08-07 08:04 | Outpatient (REF) | payer OTHER, SELFPAY ==
--- NOTE | ~2024-08-07 | XR_ITS ---
EXAMINATION: XR KNEE, LEFT CLINICAL INFORMATION: M25.562 - Pain in left knee COMPARISON: April 12, 2024. TECHNIQUE: AP view both knees in standing position. Cross lateral view and sunrise view of the left knee. . FINDINGS: There is a mild callus formation along the diagonally oriented fracture medial aspect distal diaphysis and metaphysis of the femur. The metallic prosthesis is well-seated in the osseous structures of the distal femur and proximal tibia with loosening along the tibial component. Total right knee arthroplasty prosthesis with loosening along the medial femoral condyle component. XR/XR knee LT 3V IMPRESSION: Healing fracture distal left femur. Concerning loosening tibial component of the left knee prosthesis and medial femoral component of the right knee prosthesis. Electronically signed by: Titus Thomas MD 08/07/2024 10:42 AM EDT
--- OUTSIDE RECORDS SUMMARY | 2024-08-08 08:06 | XMS_ITS | Encounter Summary ---
Author Organization [facility] Address [address] [place] [address] Care Team Providers Care Laboratory Coordinator Name Role Phone Matias Bowling MD Primary Care Provider [phone] Encounter Details Date Type Department Care Team (Late st Contact Info) Description 05/06/2024 Lab Requisition [facility] - Main Lab [address] [place] [address] Matias Bowling MD 38 [facility] [address] [place], [phone] Essential (primary) hypertension Social History Tobacco [...] LAB CHEMISTRY METHOD 05/07/2024 10:37 AM EDT [facility] Potassium 4.9 3.5 - 5.5 mmol/L LAB CHEMISTRY METHOD 05/07/2024 10:37 AM EDT [facility] Chloride 111(H) 96 - 110 [...] LAB CHEMISTRY METHOD 05/07/2024 10:37 AM EDT [facility] Total Bilirubin 0.2 0.0 - 1.4 mg/dL LAB CHEMISTRY METHOD 05/07/2024 10:37 AM [facility] Blood Venous blood specimen / Unknown Venipuncture / Unknown 05/07/2024 5:12 AM EDT 05/07/2024 8:53 AM EDT us Matias Bowling MD LAB BLOOD ORDERABLES Final Resul t [facility] [address] [place] [address], [place] [phone] * (ABNORMAL) Complete blood count (05/07/2024 5:12 AM EDT) WBC 9.6 4.8 - 10.8 K/mcL LAB HEMETOLOGY METHOD 05/07/2024 10:09 AM [facility] RBC 3.60(L) [...] LAB HEMETOLOGY METHOD 05/07/2024 10:09 AM EDT [facility] RDW 14.6 11.0 - 15.0 % LAB HEMETOLOGY METHOD 05/07/2024 10:09 AM EDT [facility] Platelets 303 130 - 400 K/mcL LAB HEMETOLOGY METHOD 05/07/2024 10:09 AM EDT [facility] MPV 10.1 7.0 - 11.0 FL LAB HEMETOLOGY METHOD 05/07/2024 10:09 AM EDT [facility] NRBC 0.0 <1.0 % LAB HEMETOLOGY METHOD 05/07/2024 10:09 AM EDT [facility] NRBC Absolute 0.00 <0.10 K/mcL LAB HEMETOLOGY METHOD 05/07/2024 10:09 AM EDT [facility] Blood Venous blood specimen / Unknown Venipuncture / Unknown 05/07/2024 5:12 AM EDT 05/07/2024 8:53 AM EDT us Matias Bowling MD LAB BLOOD ORDERABLES Final Resul t [facility] [address] [place] [address], documented in this encounter Visit Diagnoses Diagnosis Essential (primary) hypertension Unspecified essential hypertension documented in this encounter Additional Health Concerns Infection Onset Date Last Indicated Resolved Time Gastrointestinal Rule-Out 04/28/2024 04/27/2024 7:06 PM EDT C. difficile 05/29/2024 05/29/2024 06/22/2024 7:04 PM EDT C. difficile Rule-Out 05/30/2024 05/29/20242024 9:47 AM EDT documented as of this encounter Care Teams Laboratory Coordinator Relationship Specialty Start Date End Date Matias Bowling MD [address] [phone] PCP - General Family Medicine 04/16/24 documented as of this encounter
== END 2024-08-07 08:05 | disposition home or self-care (01) ==
LOC: HO.HOSX 08:04
PROVIDERS: Visit Provider Physician Assistant
DX: M25.562 Pain in left knee (principal); M97.12XA Periprosthetic fracture around internal prosthetic left knee joint, initial encounter; W18.30XA Fall on same level, unspecified, initial encounter; Y93.9 Activity, unspecified; Y92.9 Unspecified place or not applicable; Y99.9 Unspecified external cause status; Z96.652 Presence of left artificial knee joint
CPT/HCPCS: 73562; 99212

== ENCOUNTER 2024-08-07 09:20 | Outpatient (AMB) | payer OTHER, SELFPAY ==
--- NOTE | 2024-08-07 09:35 | A.OFFVIS_ITS ---
Intake Visit Reasons: OV-LT rev TKA/femur fx-3 Wk f/U Intake Note: Trish is a 68 year old female who presents for a post operative appointment of left total knee arthroplasty revision on 03/24/2024, status post fall on 04/22/2023 resulting in a periprosthetic fracture. At her last visit she was fit in a playmaker hinged knee brace, referral for [facility] services for physical therapy/occupational therapy. Today patient reports she is doing well with the knee brace. Patient states she has not heard from VNA services. Reports pain comes and goes, managing with Oxycodone. Allergies Iodinated Contrast Media [IV CONTRAST] Allergy (Severe, Verified 08/07/24 09:37) itching, hives morphine [Morphine] Allergy (Intermediate, Verified 08/07/24 09:37) ITCHING, rash tramadol [Ultram] Allergy (Intermediate, Verified 08/07/24 09:37) rash, itching HPI HPI OV-LT rev TKA/femur fx-3 Wk f/U: Details: 68-year-old female returns to the office today status post left knee revision TKA on 03/24/2024 which was complicated by a fall on 04/22/2024 resulting in a periprosthetic femur fracture. This has been treated nonoperatively as the fracture and prosthesis appears stable. Patient is doing well today. She has been ambulating with a walker without any concerns and is working with physical therapy. [facility] Medical History Arthritis Hypothyroidism Renal calculi Environmental and seasonal allergies Nocturnal hypoxia Abnormal nuclear stress test Diabetes HTN (hypertension) Cardiomyopathy Bilateral nephrolithiasis Retention of urine Acid reflux Surgical History Status post total left knee replacement History of total left knee replacement (TKR) Hx of lithotripsy (2018) History of total right knee replacement (2011) Hx of repair of right rotator cuff (2013) History of cystoscopy Hx of tubal ligation History of hand surgery Family History Brother Breast cancer Social History Household Members: Spouse Household Members Other:: lives w/her grandson Housing: House Are you a primary neonatal critical care nurse to a significant other at home: Yes (grandson 17 yrs) Do you presently have visiting nurse or other home services: No 75 years or older and lives alone: No Alcohol intake: current Alcohol intake frequency: does not drink Comment: post op left knee, WBAT Patient Tobacco Use Status: Never used Tobacco Advance Directives Date on File: 04/14/24 service: No Current occupational status: disabled Current occupation: rt handed Gender identity: Female Female Reproductive History Menstrual Age of Menarche: 12 Review of Systems Const All systems reviewed & are unremarkable except as noted in HPI and below Physical Exam Extrem Other: Left knee incision is well healed. There is no erythema or joint effusion. Range of motion is 0-95 degrees. No direct tenderness around the medial and lateral joint line Calf is supple and nontender Neurovascularly intact Results Reviewed Results Reviewed: X-rays of the left knee obtained in the office today reviewed by me show a periprosthetic left femur fracture with interval healing. Concerning loosening tibial component of the left knee prosthesis and medial femoral component of the right knee prosthesis which is unchanged from previous imaging. Prosthesis appears to be stable. Assessment & Plan Assessment & Plan (1) Periprosthetic fracture around internal prosthetic left knee joint, initial encounter: Code(s): M97.12XA - Periprosthetic fracture around internal prosthetic left knee joint, initial encounter Category: Medical Plan: The patient continues to do well with weight-bearing activities with a walker. She is maintaining her range of motion working with therapy for improved strength exercises. She will continue to weightbear as tolerated and we will see her back in 3-4 weeks with repeat x-rays, sooner if needed. Orders: Orders XR knee LT 3V 08/07/24 M25.562 - Pain in left knee Coding Level of Care Code Global (60298) Diagnoses Periprosthetic fracture around internal prosthetic left knee joint, initial encounter M97.12XA
--- OUTSIDE RECORDS SUMMARY | 2024-08-07 09:45 | XMS_ITS | Encounter Summary ---
Author Organization [facility] Address [address] [place] [address] Care Team Providers Care Bedspread Cutter Name Role Phone Matias Bowling MD Primary Care Provider [phone] Encounter Details Date Type Department Care Team (Late st Contact Info) Description 05/06/2024 Lab Requisition [facility] - Main Lab [address] [place] [address] Matias Bowling MD 38 [facility] [address] [place], [phone] Essential (primary) hypertension Social History Tobacco [...] [facility] [address] [place] [address], [place] [phone] * (ABNORMAL) Complete blood count (05/07/2024 5:12 [...] [facility] [address] [place] [address], documented in this encounter Visit Diagnoses Diagnosis Essential (primary) hypertension Unspecified essential hypertension documented in this encounter Additional Health Concerns Infection Onset Date Last Indicated Resolved Time Gastrointestinal Rule-Out 04/28/2024 04/27/2024 7:06 PM EDT C. difficile 05/29/2024 05/29/2024 06/22/2024 7:04 PM EDT C. difficile Rule-Out 05/30/2024 05/29/20242024 9:47 AM EDT documented as of this encounter Care Teams Bedspread Cutter Relationship Specialty Start Date End Date Matias Bowling MD [address] [phone] PCP - General Family Medicine 04/16/24 documented as of this encounter
== END 2024-08-07 10:05 | disposition home or self-care (01) ==
LOC: HO.HOS 09:21
PROVIDERS: Visit Provider Physician Assistant
DX: M97.12XA Periprosthetic fracture around internal prosthetic left knee joint, initial encounter (principal)
CPT/HCPCS: 99213

== ENCOUNTER → 2024-08-07 09:29 | Outpatient (BNV) | payer OTHER, SELFPAY | PROVIDERS: Visit Provider Radiology Diagnostic Radiology | DX: S72.492D Other fracture of lower end of left femur, subsequent encounter for closed fracture with routine healing (principal) | CPT/HCPCS: 73562 ==

== ENCOUNTER 2024-08-26 11:01 | Outpatient (REF) | payer OTHER, SELFPAY ==
--- NOTE | ~2024-08-26 | XR_ITS ---
EXAMINATION: XR KNEE 1-2 VIEWS LEFT HISTORY: M25.562 - Pain in left knee COMPARISON: Comparison is made with the prior examination dated 08/07/2024. FINDINGS: AP and lateral views of the left knee are submitted. 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 There is been further healing of the previously seen oblique fracture of the distal femur. The fracture line is less visible. There is a small joint effusion. XR/XR knee LT 2V IMPRESSION: Status post left total knee arthroplasty. Healing oblique fracture of the distal femur. Electronically signed by: Jose Brandon MD 08/26/2024 12:22 PM EDT
--- OUTSIDE RECORDS SUMMARY | 2024-08-26 11:46 | XMS_ITS | Encounter Summary ---
Author Organization [facility] Address [address] [place] [address] Care Team Providers Care Seed Core Operator Name Role Phone Matias Bowling MD Primary Care Provider [phone] Encounter Details Date Type Department Care Team (Late st Contact Info) Description 05/06/2024 Lab Requisition [facility] - Main Lab [address] [place] [address] Matias Bowling MD 38 [facility] [address] [place], [address] Essential (primary) hypertension Social History Tobacco [...] LAB CHEMISTRY METHOD 05/07/2024 10:37 AM EDT [facility] Potassium 4.9 3.5 - 5.5 mmol/L LAB CHEMISTRY METHOD 05/07/2024 10:37 AM EDT [facility] Chloride 111(H) 96 - [...] [facility] Comment:Calculation based on the Chronic Kidney Disease Epidemiology Collaboration (CKD-EPI) equation refit without adjustment for race. BUN/Creatinine Ratio 14.7 LAB [...] g/dL LAB CHEMISTRY METHOD 05/07/2024 10:37 AM [facility] Albumin 3.1(L) 3.2 - 5.0 g/dL LAB CHEMISTRY METHOD 05/07/2024 10:37 AM EDT [facility] Total Bilirubin 0.2 0.0 - 1.4 mg/dL LAB CHEMISTRY METHOD 05/07/2024 10:37 AM [facility] Blood Venous blood specimen / Unknown Venipuncture / Unknown 05/07/2024 5:12 AM EDT 05/07/2024 8:53 AM EDT us Matias Bowling MD LAB BLOOD ORDERABLES Final Resul t [facility] [address] [place] [address], [place] [phone] * (ABNORMAL) Complete blood count (05/07/2024 5:12 AM EDT) WBC 9.6 4.8 - 10.8 K/mcL LAB HEMETOLOGY METHOD 05/07/2024 10:09 AM [facility] RBC 3.60(L) 3.80 - 4.80 M/mcL LAB HEMETOLOGY METHOD 05/07/2024 10:09 AM [facility] Hemoglobin 9.4(L) 11.5 - 16.0 g/dL LAB HEMETOLOGY METHOD 05/07/2024 10:09 AM [facility] Hematocrit 31.5(L) 35.0 - 47.0 % LAB HEMETOLOGY METHOD 05/07/2024 10:09 AM [facility] MCV 88.2 79.0 - 98.0 FL LAB HEMETOLOGY METHOD 05/07/2024 10:09 AM [facility] MCH 26.3(L) 27.0 - 32.0 pcg LAB HEMETOLOGY METHOD 05/07/2024 10:09 AM [facility] MCHC 29.8(L) 32.0 - 37.0 g/dL LAB HEMETOLOGY METHOD 05/07/2024 10:09 AM EDT [facility] RDW 14.6 11.0 - 15.0 % LAB HEMETOLOGY METHOD 05/07/2024 10:09 AM EDT [facility] Platelets 303 130 - 400 K/mcL LAB HEMETOLOGY METHOD 05/07/2024 10:09 AM EDT [facility] MPV 10.1 7.0 - 11.0 FL LAB HEMETOLOGY METHOD 05/07/2024 10:09 AM EDT [facility] NRBC 0.0 <1.0 % LAB HEMETOLOGY METHOD 05/07/2024 10:09 AM EDT [facility] NRBC Absolute 0.00 <0.10 K/mcL LAB HEMETOLOGY METHOD 05/07/2024 10:09 AM EDT [facility] Blood Venous blood specimen / Unknown Venipuncture / Unknown 05/07/2024 5:12 AM EDT 05/07/2024 8:53 AM EDT us Matias Bowling MD LAB BLOOD ORDERABLES Final Resul t [facility] [address] [place] [address], documented in this encounter Visit Diagnoses Diagnosis Essential (primary) hypertension Unspecified essential hypertension documented in this encounter Additional Health Concerns Infection Onset Date Last Indicated Resolved Time Gastrointestinal Rule-Out 04/28/2024 04/27/2024 7:06 PM EDT C. difficile 05/29/2024 05/29/2024 06/22/2024 7:04 PM EDT C. difficile Rule-Out 05/30/2024 05/29/20242024 9:47 AM EDT documented as of this encounter Care Teams Seed Core Operator Relationship Specialty Start Date End Date Matias Bowling MD 38 [facility] [address] [place] [phone] PCP - General Family Medicine 04/16/24 documented as of this encounter
== END 2024-08-26 11:02 | disposition home or self-care (01) ==
LOC: HO.HOSX 11:01
PROVIDERS: Visit Provider Physician Assistant
DX: M97.12XA Periprosthetic fracture around internal prosthetic left knee joint, initial encounter (principal)
CPT/HCPCS: 73560; 99212

== ENCOUNTER 2024-08-26 11:19 | Outpatient (AMB) | payer OTHER, SELFPAY ==
--- NOTE | 2024-08-26 11:47 | A.OFFVIS_ITS ---
Intake Visit Reasons: OV-LT rev TKA/femur fx f/u Intake Note: Trish is a 68 year old female who presents for a post operative appointment of left total knee arthroplasty revision on 03/24/2024, status post fall on 04/22/2023 resulting in a periprosthetic fracture. Today patient reports she is doing well, states having intermittent pain and at times her pain is severe. Patient reports discomfort in knee brace and continues to fall down. Plastics Scientist Required: Yes Plastics Scientist Services: Plastics Scientist Present Plastics Scientist Name: Nato Shankar ID#[id number] Allergies Iodinated Contrast Media (IV CONTRAST) Allergy (Severe, Verified 08/26/24 11:51) itching, hives morphine (Morphine) Allergy (Intermediate, Verified 08/26/24 11:51) ITCHING, rash tramadol (Ultram) Allergy (Intermediate, Verified 08/26/24 11:51) rash, itching HPI HPI OV-LT rev TKA/femur fx f/u: Details: 68 year old female returns to the office today she is status post revision left total knee from February of [address] Oro which was complicated by a periprosthetic fracture in March of 2024. The patient has been weight- bearing as tolerated with a walker. She denies pain but feels a little unstable when she is walking without her brace. She has able to participate in most activities without concerns. [facility] Medical History Arthritis Hypothyroidism Renal calculi Environmental and seasonal allergies Nocturnal hypoxia Abnormal nuclear stress test Diabetes HTN (hypertension) Cardiomyopathy Bilateral nephrolithiasis Retention of urine Acid reflux Surgical History Status post total left knee replacement History of total left knee replacement (TKR) Hx of lithotripsy (2018) History of total right knee replacement (2011) Hx of repair of right rotator cuff (2013) History of cystoscopy Hx of tubal ligation History of hand surgery Family History Brother Breast cancer Social History Household Members: Spouse Household Members Other:: lives w/her grandson Housing: House Are you a primary doggy daycare activities director to a significant other at home: Yes (grandson 17 yrs) Do you presently have visiting nurse or other home services: No 75 years or older and lives alone: No Alcohol intake: current Alcohol intake frequency: does not drink Comment: post op left knee, WBAT Patient Tobacco Use Status: Never used Tobacco Advance Directives Date on File: 04/14/24 service: No Current occupational status: disabled Current occupation: rt handed Gender identity: Female Female Reproductive History Menstrual Age of Menarche: 12 Review of Systems Const All systems reviewed & are unremarkable except as noted in HPI and below Physical Exam Extrem Other: Left knee incision is well healed. There is no erythema or joint effusion. Range of motion is 0-95 degrees. No direct tenderness around the medial and lateral joint line Calf is supple and nontender Neurovascularly intact Results Reviewed Results Reviewed: X-rays of the left knee obtained in the office today reviewed by me show a periprosthetic left femur fracture with interval healing. Prosthesis appears to be stable. Assessment & Plan Assessment & Plan (1) Periprosthetic fracture around internal prosthetic left knee joint, initial encounter: Code(s): M97.12XA - Periprosthetic fracture around internal prosthetic left knee joint, initial encounter Category: Medical Plan: Patient continue weight-bearing as tolerated with a walker and she was fit for a new brace in the office today as previous 1 cap sliding down. I would like to see her back in 4 weeks for repeat x-rays and evaluation, sooner if needed. Orders: Orders XR knee LT 2V Today M25.562 - Pain in left knee Coding Level of Care Code Est Pt Level 3 (35926) Complex EM visit Add On G2211 Diagnoses Periprosthetic fracture around internal prosthetic left knee joint, initial encounter M97.12XA
--- OUTSIDE RECORDS SUMMARY | 2024-08-26 12:06 | XMS_ITS | Encounter Summary ---
Author Organization [facility] Address [address] [place] [address] [address] [place] [address] Care Team Providers Care User Experience Manager Name Role Phone Ethel Chase DO Primary Care Provider PuVaishnavi thorpe PharmD Unavailable [phone] Reason for Visit * Reason Comments Med Refill Encounter Details Date Type Department Care Team (Late st Contact Info) Description 04/06/2022 Refill [facility] [address] [place] [address] Ethel Chase DO [address] [place] [address] Other chronic pain Social History Tobacco Use [...] Care Team (Late st Contact Info) Description 10/08/2024 9:30 AM EDT Medication Management [facility] [address] [place] [address] Puia, Vaishnavi, PharmD [address] [place] [address] 12/01/2024 9:00 AM EDT Clinical Support [facility] [address] [place] [phone] Suad Wilson, RN documented as of this encounter Visit Diagnoses Diagnosis Other chronic pain documented in this encounter Additional Health Concerns Assessment Noted Time PHQ-9 Depression Total Score: 0 02/08/20 22 10:43 AM EST documented as of this encounter Care Teams User Experience Manager Relationship Specialty Start Date End Date Ethel Chase DO [address] [place] [phone] PCP - General Family Medicine 10/12/13 Vaishnavi Laird, Zana [address] [place] [phone] Pharmacist Internal Medicine 02/07/23 [id number] 06/11/24 documented as of this encounter
== END 2024-08-26 12:05 | disposition home or self-care (01) ==
LOC: HO.HOS 11:20
PROVIDERS: PCP Family Medicine; Visit Provider Physician Assistant
DX: M97.12XA Periprosthetic fracture around internal prosthetic left knee joint, initial encounter (principal)
CPT/HCPCS: 99213; G2211

== ENCOUNTER → 2024-08-26 11:22 | Outpatient (BNV) | payer OTHER, SELFPAY | PROVIDERS: Visit Provider Radiology Diagnostic Radiology | DX: M25.562 Pain in left knee (principal) | CPT/HCPCS: 73560 ==

== ENCOUNTER 2024-09-23 10:52 | Outpatient (REF) | payer OTHER, SELFPAY ==
--- NOTE | ~2024-09-23 | XR_ITS ---
EXAMINATION: XR KNEE, LEFT CLINICAL INFORMATION: M25.562 - Pain in left knee COMPARISON: July 27, 2024 x-ray and CT on January 10, 2025 TECHNIQUE: AP and lateral views of the left knee. FINDINGS: Changes related to revision of left total knee arthroplasty is again noted. There is a joint effusion. There is remodeling of an oblique fracture involving the medial metadiaphysis the femur. There is also fracture of the posterior and medial tibial metaphysis that is minimally visible on the current exam. XR/XR knee LT 2V IMPRESSION: Healed/healing fracture of the medial distal femur and proximal tibia and total knee arthroplasty revision. Joint effusion. Electronically signed by: Garcia Kwong MD 09/23/2024 12:06 PM EDT
--- OUTSIDE RECORDS SUMMARY | 2024-09-23 11:54 | XMS_ITS | Encounter Summary ---
Author Organization [facility] Address [address] [place] [address] Care Team Providers Care Joy Loading Machine Operator Name Role Phone Matias Bowling MD Primary Care Provider [phone] Encounter Details Date Type Department Care Team (Late st Contact Info) Description 05/06/2024 Lab Requisition [facility] - Main Lab [address] [place] [address] Matias Bowling MD [address] [facility] [address] [place], [address] Essential (primary) hypertension Social History Tobacco [...] LAB CHEMISTRY METHOD 05/07/2024 10:37 AM EDT [facility] Potassium 4.9 3.5 - 5.5 mmol/L LAB CHEMISTRY METHOD 05/07/2024 10:37 AM EDT [facility] Chloride 111(H) 96 - [...] LAB CHEMISTRY METHOD 05/07/2024 10:37 AM EDT [facility] Total Bilirubin 0.2 0.0 - 1.4 mg/dL LAB CHEMISTRY METHOD 05/07/2024 10:37 AM [facility] Blood Venous blood specimen / Unknown Venipuncture / Unknown 05/07/2024 5:12 AM EDT 05/07/2024 8:53 AM EDT us Matias Bowling MD LAB BLOOD ORDERABLES Final Resul t [facility] [address] [place] [address], [place] [phone] * (ABNORMAL) Complete blood count (05/07/2024 5:12 [...] LAB HEMETOLOGY METHOD 05/07/2024 10:09 AM EDT [facility] RDW 14.6 11.0 - 15.0 % LAB HEMETOLOGY METHOD 05/07/2024 10:09 AM EDT [facility] Platelets 303 130 - 400 K/mcL LAB HEMETOLOGY METHOD 05/07/2024 10:09 AM EDT [facility] MPV 10.1 7.0 - 11.0 FL LAB HEMETOLOGY METHOD 05/07/2024 10:09 AM EDT [facility] NRBC 0.0 <1.0 % LAB HEMETOLOGY METHOD 05/07/2024 10:09 AM EDT [facility] NRBC Absolute 0.00 <0.10 K/mcL LAB HEMETOLOGY METHOD 05/07/2024 10:09 AM EDT [facility] Blood Venous blood specimen / Unknown Venipuncture / Unknown 05/07/2024 5:12 AM EDT 05/07/2024 8:53 AM EDT us Matias Bowling MD LAB BLOOD ORDERABLES Final Resul t [facility] [address] [place] [address], documented in this encounter Visit Diagnoses Diagnosis Essential (primary) hypertension Unspecified essential hypertension documented in this encounter Additional Health Concerns Infection Onset Date Last Indicated Resolved Time Gastrointestinal Rule-Out 04/28/2024 04/27/2024 7:06 PM EDT C. difficile 05/29/2024 05/29/2024 06/22/2024 7:04 PM EDT C. difficile Rule-Out 05/30/2024 05/29/20242024 9:47 AM EDT documented as of this encounter Care Teams Joy Loading Machine Operator Relationship Specialty Start Date End Date Matias Bowling MD [address] [facility] [address] [place] [address] PCP - General Family Medicine 04/16/24 documented as of this encounter
--- OUTSIDE RECORDS SUMMARY | 2024-09-23 11:54 | XMS_ITS | Clinical Summary ---
Author Organization [facility] Address [address] [facility] [address] [place] [address] Phone Care Team Providers Care Design Verification Engineer Name Role Phone Ethel Chase DO Primary Care Provider Social History Tobacco Use Types Packs/Day Years Used Date Smoking Tobacco: Never Assessed Education Answer Date Recorded Are you interested in more education? Not on kit e 12/20/2023 Are you concerned about learning? Not on file 12/20/2023 No 12/20/2023 No 12/20/2023 Digital Access Answer Date Recorded No 12/20/2023 No 12/20/2023 Reliable internet access at home? Not on file 12/20/2023 Device with a working camera? Not on file Comments Unknown Sex and Gender Information Value Date Recorded Sex Assigned at Not on file Legal Sex Female 12:27 PM EDT Gender Identity Not on file Sexual Orientation Not on file Plan of Treatment Health Maintenance Due Date Last Done Comments Adult Td,Tdap Booster 1955 LIPID PANEL 1955 DEPRESSION SCREENING 1967 SMOKING Hx and SMOKELESS TOB ACCO SCREENING 12/29/1968 HEPATITIS C SCREENING 12/29/1973 MAMMOGRAM 1995 COLOGUARD 12/29/2000 COLONOSCOPY 12/29/2000 COLORECTAL CANCER SCREENING 12/29/2000 FIT TEST 12/29/2000 FOBT 12/29/2000 SIGMOIDOSCOPY 12/29/2000 VIRTUAL COLONOSCOPY 12/29/2000 PNEUMOCOCCAL VACCINES (50+ y ears) (1 of 1 - PCV) 12/29/2005 ZOSTER VACCINES (1 of 2) 12/29/2005 OSTEOPOROSIS SCREENING INITI AL (ONE-TIME) 12/29/2020 COVID-19 VACCINE (2023-2 5 season) 2023 RSV VACCINE (1 - 1-dose 75+ series) 12/29/2030 HEPATITIS A VACCINES Aged Out No long er eligible based on patient's age to complete this topic HIB VACCINES Aged Out No longer eligi ble based on patient's age to complete this topic MENINGOCOCCAL VACCINES (ACWY) Aged Out No longer eligible based on patient's age to complete this topic MENINGOCOCCAL VACCINES (B) Aged Out N o longer eligible based on patient's age to complete this topic Medical Devices Not on file Insurance MEDICARE REPLACEMENT MEDICARE REPLACEMENT MEDICARE REPLACEMENT JOSÉ MIGUEL HERRING [id number] Care Teams Design Verification Engineer Relationship Specialty Start Date End Date Ethel Chase DO [address] [place] [address] PCP - General Family Medicine 12/19/23 Additional Source Comments The information contained in this document represents components of the legal health record. It is not the complete legal health record.[facility]
--- OUTSIDE RECORDS SUMMARY | 2024-09-23 11:54 | XMS_ITS | Encounter Summary ---
Author Organization [employer] Address [address] [place] [address] 7[address] [place] [address] Care Team Providers Care Rn Complex Care Name Role Phone Ethel Chase DO Primary Care Provider [phone] Vaishnavi Laird PharmD Unavailable [phone] Reason for Visit * Reason Onset Date Comments Nurse Triage 09/14/2024 Encounter Details Date Type Department Care Team ([facility] st Contact Info) Description 09/14/2024 Telephone [facility] [address] [place] [address] Ethel Chase DO [address] [place] [address] Nurse Triage Social History Tobacco Use Types Packs/Day Years Used Date Smoking Tobacco: Never Smokeless Tobacco: Never Alcohol Use Standard Drinks/Week Comments Yes 0 (1 standard drink = 0.6 oz pur e alcohol) oca Depression Answer Date Recorded Patient Health Questionnaire-9 Score 0 09/17/2024 Patient Health Questionnaire-9 Score 0 09/17/2024 Last PHQ-9: Questionnaire Data Not on file 0 09/17/2024 Housing Stability Answer Date Recorded What is [...] Date Recorded Patient Health Questionnaire-2 Score 0 09/17/2024 Internet Access Answer Date Recorded Internet Access Q1 Yes 01/15/2024 Internet Access Q2 Not on file 01/15/2024 Comments Unknown Sex and Gender Information Value Date Recorded Sex Assigned at Female 12/25/2021 10:14 AM EDT Legal Sex Female 10:14 AM EDT Gender Identity Female 12/25/2021 10:14 AM EDT Sexual Orientation Straight 12/25/2021 10 :14 AM EDT documented as of this encounter Functional Status * Over the past 2 weeks, how often have you been bothered by any of the following problems? Question Answer Date of Assessment Author Patient Health Questionnaire-2 Score 0 08/26 12:29 PM EDT Angel Reynoso MA * Little interest or pleasure in doing things Answer Date of Assessment Author Not at all 09/17/2024 12:29 PM EDT July Reynoso MA * Feeling down, depressed, or hopeless Answer Date of Assessment Author Not at all 09/17/2024 12:29 PM EDT July Reynoso MA * Trouble falling or staying asleep, or sleeping too much Answer Date of Assessment Author Not at all 09/17/2024 12:29 PM EDT July Reynoso MA * Feeling tired or having little energy Answer Date of Assessment Author Not at all 09/17/2024 12:29 PM EDT July Reynoso MA * Poor appetite or overeating Answer Date of Assessment Author Not at all 09/17/2024 12:29 PM EDT July Reynoso MA * Feeling bad about yourself - or that you are a failure or have let yourself or your family down Answer Date of Assessment Author Not at all 09/17/2024 12:29 PM EDT July Reynoso MA * Trouble concentrating on things, such as reading the newspaper or watching television Answer Date of Assessment Author Not at all 09/17/2024 12:29 PM EDT July Reynoso MA * Moving or speaking so slowly that other people could have noticed? Or the opposite - being so fidgety or restless that you have been moving around a lot more than usual. Answer Date of Assessment Author Not at all 09/17/2024 12:29 PM EDT July Reynoso MA * Thoughts that you would be better off or hurting yourself in some way Answer Date of Assessment Author Not at all 09/17/2024 12:29 PM EDT July Reynoso MA * Patient Health Questionnaire-9 Score Answer Date of Assessment Author 0 09/17/2024 12:29 PM EDT July Reynoso MA * Over the last 2 weeks, how often have you been bothered by any of the following problems? Question Answer Date of Assessment Author Feeling nervous, anxious, or on edge 0 08/26 12:29 PM EDT Angel Reynoso MA Not being able to stop or co ntrol worrying 0 09/17/2024 12:29 PM EDT Angel Reynoso M A Worrying too much about diff erent things 0 09/17/2024 12:29 PM EDT Angel Reynoso M A Trouble relaxing 0 09/17/2024 12:29 PM EDT Angel Reynoso MA Being so restless that it is hard to sit still 0 09/17/2024 12:29 PM EDT Angel Reynoso M A Becoming easily annoyed or irritable 0 08/26 12:29 PM EDT Angel Reynoso MA Feeling afraid as if somethi ng awful might happen 0 09/17/2024 12:29 PM EDT Angel Reynoso M A [place]-7 Total Score 0 09/17/2024 12:29 PM EDT Angel Reynoso MA documented as of this encounter Miscellaneous Notes * Telephone Encounter - Silvia Harley RN - 09/14/2024 4:30 PM EDT Triage call to Milena from [place] [address] [facility] care. Milena wanted to report Pt BP'S have been higher. Ptis asymptomatic. BP today left arm was 148/96 and right arm 145/96. Pt is taking daily imdur 30mg as prescribed. Pt has a scheduled apt 09/17/24 to address high BP. Pt is also asking about referral toPT. Rubble Placer advised that this information would be forwarded to nursing team for prn follow up. Milena agreed with this disposition. Protocol Used: Information Only Call - No Triage (Adult) Protocol-Based Disposition: Discuss with PCP and Callback by Nurse Today Video visit not offered Positive Triage Questions: * Requesting referral to a specialist * Requesting regular office appointment and adult stable (no new symptoms, not getting worse) * All higher-acuity triage questions were negative Care Advice Discussed: * Reasons To Call Back - New symptoms develop - You have more questions - You become worse * Telephone Encounter - Petros Knight - 09/14/2024 4:14 PM EDT Symptom: High Blood Pressure - Caller Reports Outcome: Schedule a same-day appointment or talk to a nurse or provider today Reason: Caller denied all higher acuity questions The caller accepted this outcome. Contact Milena with [address] care at [phone] documented in this encounter Plan of Treatment Upcoming Encounters Date Type Department Care Team (Late st Contact Info) Description 10/08/2024 9:30 AM EDT Medication Management [facility] [address] [place] [address] Vaishnavi Laird PharmD [address] [place] [address] 12/01/2024 9:00 AM EDT Clinical Support [address] [address] Suad Wilson RN documented as of this [...] as of this encounter Care Teams Rn Complex Care Relationship Specialty Start Date End Date Ethel Chase DO [address] [place] [address] PCP - General Family Medicine 10/12/13 Vaishnavi Laird, Zana [address] [place] [address] Pharmacist Internal Medicine 02/07/23 [email or web address] 06/11/24 documented as of this encounter
--- OUTSIDE RECORDS SUMMARY | 2024-09-23 11:54 | XMS_ITS | Encounter Summary ---
Author Organization [facility] Address [address] [facility] [address] [place] [address] Encounters * CPT with Danilo Contreras at [employer] on 2024-09-03 Itchy raw rash under right breast. { reasonForRequest : Rash , patientReports : , denies& quot;:[], chiefComplaints : Rash , pmh : Asthma, Diabetes Mellitus Type 2, Gastroesophageal Reflux Disease (GERD), Hyperlipidemia, Hypertension, Hypothyroidism , allergies : Morphine, Tramadol, Iodinated Contrast Media, NSAIDS (Non-Steroidal Anti-Inflammatory Drug) , otherAllergies : , painAssessment : , visitOutcome : , additionalComments : Reviewed HPI."} Patient alert and oriented seated on couch. Patient complains of burning irritation and pain at site of rash under right breast times two weeks. Patient reports using Neosporin on area with no change. Patient reports rash has been expanding. Patient reports no other areas of rash on her body. Patient denies nausea, vomiting, diarrhea, chest pain, weakness, dizziness, or any other pain or complaint. Patient pink warm, dry negative increase work of breathing, positive full sentences, extremities unremarkable no edema noted. [facility] [place] topical antifungal to patient???s local pharmacy. Patient reports she???ll be able to obtain that medication today. Patient advised to follow up with PCP today. Supportive care, red flags, and patient education discussed. Patient demonstrates understanding of care and plan. Patient given an opportunity to ask questions. PO_MEDICATION Written by Danilo Contreras on 2024-09-03
== END 2024-09-23 10:53 | disposition home or self-care (01) ==
LOC: HO.HOSX 10:52
PROVIDERS: Visit Provider Physician Assistant
DX: M97.12XD Periprosthetic fracture around internal prosthetic left knee joint, subsequent encounter (principal); M25.561 Pain in right knee; M25.562 Pain in left knee
CPT/HCPCS: 73560; 99212

== ENCOUNTER 2024-09-23 11:44 | Outpatient (AMB) | payer OTHER, SELFPAY ==
--- NOTE | 2024-09-23 11:46 | A.OFFVIS_ITS ---
Intake Visit Reasons: OV-Lt TKA rev. DOS 03/24/2024 s/p nga pros fx Intake Note: Trish is a 68 year old female who presents today for a follow up of left TKA revision, DOS: 03/24/[address] Oro. Status post fall on 04/22/2023 resulting in a periprosthetic fracture. At her last visit she was instructed to weight bear as tolerated with walker, and to follow up in 4 weeks with repeat xrays. She has concern of swelling in both legs at night. She complains of pain in her right knee, with feeling of weakness. Denies any therapy. Allergies Iodinated Contrast Media (IV CONTRAST) Allergy (Severe, Verified 09/23/24 11:59) itching, hives morphine (Morphine) Allergy (Intermediate, Verified 09/23/24 11:59) ITCHING, rash tramadol (Ultram) Allergy (Intermediate, Verified 09/23/24 11:59) rash, itching HPI HPI OV-Lt TKA rev. DOS 03/24/2024 s/p nga pros fx: Details: 68 year old female who presents today for a follow up of left TKA revision, DOS: 03/24/[address] Oro. Status post fall on 04/22/2023 resulting in a periprosthetic fracture. She has been seeing me for close follow-up monitoring her periprosthetic fracture. She has been weight-bearing as tolerated with her brace. She states she has some discomfort in the quad but has been trying to work on her physical therapy exercises to maintain her range of motion. [facility] Medical History Arthritis Hypothyroidism Renal calculi Environmental and seasonal allergies Nocturnal hypoxia Abnormal nuclear stress test Diabetes HTN (hypertension) Cardiomyopathy Bilateral nephrolithiasis Retention of urine Acid reflux Surgical History Status post total left knee replacement History of total left knee replacement (TKR) Hx of lithotripsy (2018) History of total right knee replacement (2011) Hx of repair of right rotator cuff (2013) History of cystoscopy Hx of tubal ligation History of hand surgery Family History Brother Breast cancer Social History Household Members: Spouse Household Members Other:: lives w/her grandson Housing: House Are you a primary healthcare market consultant to a significant other at home: Yes (grandson 17 yrs) Do you presently have visiting nurse or other home services: No 75 years or older and lives alone: No Alcohol intake: current Alcohol intake frequency: does not drink Comment: post op left knee, WBAT Patient Tobacco Use Status: Never used Tobacco Advance Directives Date on File: 04/14/24 service: No Current occupational status: disabled Current occupation: rt handed Gender identity: Female Female Reproductive History Menstrual Age of Menarche: 12 Review of Systems Const All systems reviewed & are unremarkable except as noted in HPI and below Physical Exam Extrem Other: Left knee incision is well healed. There is no erythema or joint effusion. Range of motion is 0-95 degrees. No direct tenderness around the medial and lateral joint line Calf is supple and nontender Neurovascularly intact Results Reviewed Results Reviewed: X-rays of the left knee obtained in the office today reviewed by me show a periprosthetic left femur fracture with interval healing. Prosthesis appears to be stable. Assessment & Plan Assessment & Plan (1) Periprosthetic fracture around internal prosthetic left knee joint, initial encounter: Code(s): M97.12XA - Periprosthetic fracture around internal prosthetic left knee joint, initial encounter Category: Medical (2) Status post revision of total replacement of left knee: Code(s): Z96.652 - Presence of left artificial knee joint Category: Surgical Plan Patient will continue with activities as tolerated weightbearing with a walker. She will continue to use the brace for stability. I will see her back in 6 weeks with x-rays, sooner if needed. Orders: Orders XR knee LT 2V 09/23/24 M25.562 - Pain in left knee Coding Level of Care Code Est Pt Level 3 (34317) Global (99514) Diagnoses Periprosthetic fracture around internal prosthetic left knee joint, initial encounter M97.12XA Status post revision of total replacement of left knee Z96.652
== END 2024-09-23 12:14 | disposition home or self-care (01) ==
LOC: HO.HOS 11:45
PROVIDERS: Visit Provider Physician Assistant
DX: M97.12XA Periprosthetic fracture around internal prosthetic left knee joint, initial encounter (principal); Z96.652 Presence of left artificial knee joint
CPT/HCPCS: 99024; 99213

== ENCOUNTER → 2024-09-23 11:45 | Outpatient (BNV) | payer OTHER, SELFPAY | PROVIDERS: Visit Provider Radiology Diagnostic Radiology | DX: M25.462 Effusion, left knee (principal) | CPT/HCPCS: 73560 ==

== ENCOUNTER 2024-10-16 09:11 | Outpatient (REF) | payer OTHER, SELFPAY ==
--- OUTSIDE RECORDS SUMMARY | 2024-10-16 09:19 | XMS_ITS | Encounter Summary ---
Author Organization [facility] Address [address] [place] [address] Care Team Providers Care Gauntlet Pairer Name Role Phone Matias Bowling MD Primary Care Provider [phone] Encounter Details Date Type Department Care Team (Late st Contact Info) Description 05/06/2024 Lab Requisition [facility] - Main Lab [address] [place] [address] Matias Bowling MD 38 [facility] [address] [place], [address] Essential (primary) hypertension Social History Tobacco [...] LAB CHEMISTRY METHOD 05/07/2024 10:37 AM EDT [facility] Potassium 4.9 3.5 - 5.5 mmol/L LAB CHEMISTRY METHOD 05/07/2024 10:37 AM EDT [facility] Chloride 111(H) 96 - 110 mmol/L LAB CHEMISTRY METHOD 05/07/2024 10:37 AM [facility] CO2 22 21 - 32 mmol/L LAB CHEMISTRY METHOD 05/07/2024 10:37 AM [facility] Anion Gap 8 3 - 11 LAB CHEMISTRY METHOD 05/07/2024 10:37 AM [facility] Glucose 121(H) 70 - 100 mg/dL LAB CHEMISTRY METHOD 05/07/2024 10:37 AM [facility] BUN 15 5 - 25 mg/dL LAB CHEMISTRY METHOD 05/07/2024 10:37 AM [facility] Creatinine 1.02 0.50 - 1.10 mg/dL LAB CHEMISTRY METHOD 05/07/2024 10:37 AM [facility] eGFR 60 >=60 mL/min/1. 73m2 LAB CHEMISTRY METHOD 05/07/2024 10:37 AM [facility] Comment:Calculation based on the Chronic Kidney Disease Epidemiology Collaboration (CKD-EPI) equation refit without adjustment for race. BUN/Creatinine Ratio 14.7 LAB CHEMISTRY METHOD 05/07/2024 10:37 AM [facility] Calcium 9.1 8.5 - 10.5 mg/dL LAB CHEMISTRY METHOD 05/07/2024 10:37 AM [facility] AST (SGOT) 15 10 - 42 unit/L LAB CHEMISTRY METHOD 05/07/2024 10:37 AM [facility] ALT (SGPT) 20 10 - 60 unit/L LAB CHEMISTRY METHOD 05/07/2024 10:37 AM [facility] Alkaline Phosphatase 161(H) 42 - 121 unit/L LAB CHEMISTRY METHOD 05/07/2024 10:37 AM [facility] Total Protein 6.4 6.0 - 8.0 g/dL LAB CHEMISTRY METHOD 05/07/2024 10:37 AM [facility] Albumin 3.1(L) 3.2 - 5.0 g/dL LAB CHEMISTRY METHOD 05/07/2024 10:37 AM EDT [facility] Total Bilirubin 0.2 0.0 - 1.4 mg/dL LAB CHEMISTRY METHOD 05/07/2024 10:37 AM [facility] Blood Venous blood specimen / Unknown Venipuncture / Unknown 05/07/2024 5:12 AM EDT 05/07/2024 8:53 AM EDT us Matias Bowling MD LAB BLOOD ORDERABLES Final Resul t [facility] [address] [place] [address], [place] [phone] * (ABNORMAL) Complete blood count (05/07/2024 5:12 AM EDT) WBC 9.6 4.8 - 10.8 K/mcL LAB HEMETOLOGY METHOD 05/07/2024 10:09 AM [facility] RBC 3.60(L) 3.80 - 4.80 M/mcL LAB HEMETOLOGY METHOD 05/07/2024 10:09 AM [facility] Hemoglobin 9.4(L) 11.5 - 16.0 g/dL LAB HEMETOLOGY METHOD 05/07/2024 10:09 AM [facility] Hematocrit 31.5(L) 35.0 - 47.0 % LAB HEMETOLOGY METHOD 05/07/2024 10:09 AM [facility] MCV 88.2 79.0 - 98.0 FL LAB HEMETOLOGY METHOD 05/07/2024 10:09 AM [facility] MCH 26.3(L) 27.0 - 32.0 pcg LAB HEMETOLOGY METHOD 05/07/2024 10:09 AM [facility] MCHC 29.8(L) 32.0 - 37.0 g/dL LAB HEMETOLOGY METHOD 05/07/2024 10:09 AM EDT [facility] RDW 14.6 11.0 - 15.0 % LAB HEMETOLOGY METHOD 05/07/2024 10:09 AM EDT [facility] Platelets 303 130 - 400 K/mcL LAB HEMETOLOGY METHOD 05/07/2024 10:09 AM EDT [facility] MPV 10.1 7.0 - 11.0 FL LAB HEMETOLOGY METHOD 05/07/2024 10:09 AM EDT [facility] NRBC 0.0 <1.0 % LAB HEMETOLOGY METHOD 05/07/2024 10:09 AM EDT [facility] NRBC Absolute 0.00 <0.10 K/mcL LAB HEMETOLOGY METHOD 05/07/2024 10:09 AM EDT [facility] Blood Venous blood specimen / Unknown Venipuncture / Unknown 05/07/2024 5:12 AM EDT 05/07/2024 8:53 AM EDT us Matias Bowling MD LAB BLOOD ORDERABLES Final Resul t [facility] [address] [place] [address], documented in this encounter Visit Diagnoses Diagnosis Essential (primary) hypertension Unspecified essential hypertension documented in this encounter Additional Health Concerns Infection Onset Date Last Indicated Resolved Time Gastrointestinal Rule-Out 04/28/2024 04/27/2024 7:06 PM EDT C. difficile 05/29/2024 05/29/2024 06/22/2024 7:04 PM EDT C. difficile Rule-Out 05/30/2024 05/29/20242024 9:47 AM EDT documented as of this encounter Care Teams Gauntlet Pairer Relationship Specialty Start Date End Date Matias Bowling MD [address] [facility] [address] [place] [id number] PCP - General Family Medicine 04/16/24 documented as of this encounter
--- OUTSIDE RECORDS SUMMARY | 2024-10-16 09:19 | XMS_ITS | Clinical Summary ---
Author Organization [facility] Address [address] [facility] [address] [place] [phone] Phone Care Team Providers Care Oil Field Rig Builder Name Role Phone Ethel Chase DO Primary Care Provider [phone] Social History Tobacco Use Types Packs/Day Years [...] MEDICARE REPLACEMENT MEDICARE REPLACEMENT JOSÉ MIGUEL HERRING [id number] Care Teams Oil Field Rig Builder Relationship Specialty Start Date End Date Ethel Chase DO [address] [place] [address] PCP - General Family Medicine 12/19/23 Additional Source Comments The information contained in this document represents components of the legal health record. It is not the complete legal health record.[facility]
--- OUTSIDE RECORDS SUMMARY | 2024-10-16 09:19 | XMS_ITS | Encounter Summary ---
Author Organization [employer] Address [address] [place] [address] 7[address] [place] [address] Care Team Providers Care Geriatrics Physician Name Role Phone Ethel Chase DO Primary Care Provider [phone] Vaishnavi Laird PharmD Unavailable [phone] Reason for Visit * Reason Onset Date Comments Nurse Triage 09/14/2024 Encounter Details Date Type Department Care Team ([facility] st Contact Info) Description 09/14/2024 Telephone [facility] [address] [place] [address] Ethel Chase DO [address] [place] [address] Nurse Triage Social History Tobacco Use Types [...] PM EDT Triage call to Milena from [place] [address] [facility] care. Milena wanted to report Pt BP'S have been higher. Ptis asymptomatic. BP today left arm was 148/96 and right arm 145/96. Pt is taking daily imdur 30mg as prescribed. Pt has a scheduled apt 09/17/24 to address high BP. Pt is also asking about referral toPT. Erp Business Analyst advised that this information would be forwarded [...] accepted this outcome. Contact Milena with [address] care at [phone] documented in this encounter Plan of Treatment Upcoming Encounters Date Type Department Care Team (Late st Contact Info) Description 11/04/2024 9:30 AM EDT Medication Management [facility] [address] [place] [address] Vaishnavi Laird PharmD [address] [place] [address] 12/01/2024 9:00 AM EDT Clinical Support [address] [address] Suad Wilson RN documented as of this encounter Goals Goal Patient Goal Type Associated Problems Recent Progress Patient-Stated? Author Hemoglobin A1c < 7 Result Component 8.6( 5 12:47 PM EDT) No Vaishnavi Laird, PharmD Record your blood sugar as directed Result Component No Vaishnavi Laird PharmRina documented as of this encounter Visit Diagnoses Not on filedocumented in this encounter Additional Health Concerns Assessment Noted Time PHQ-9 Depression Total Score: 8 10/18/19 24 11:35 AM EDT documented as of this encounter Care Teams Geriatrics Physician Relationship Specialty Start Date End Date Ethel Chase DO [address] [place] [address] PCP - General Family Medicine 10/12/13 Vaishnavi Laird, PharmRina [address] [place] [address] Pharmacist Internal Medicine 02/07/23 [email or web address] 06/11/24 documented as of this encounter
[2024-10-16 13:29] LABS: Anion Gap 12 (12-20); Blood Urea Nitrogen 13 mg/dL (9-16); Calcium 9.0 mg/dL (8.4-10.2); Carbon Dioxide 26 mmol/L (22-29); Chloride 103 mmol/L (96-108); Estimated Glomerular Filt Rate 49; Iron 37 mcg/dL (30-160); Percent Iron Saturation 14 % (15-50); Potassium 4.4 mmol/L (3.3-5.1); Sodium 137 mmol/L (135-145); Total Iron Binding Capacity 269 mcg/dL (228-428); Unsaturated Iron Binding 232 ug/dL
[2024-10-16 13:50] LABS: Folate 18.2 ng/mL (> or = 4.0); Thyroid Stimulating Hormone 3.25 uIU/mL (0.32-4.0); Vitamin B12 331 pg/mL (200-900)
[2024-10-16 13:52] LABS: Ferritin 46 ng/mL (10-250); Free T4 (Free Thyroxine) 0.98 ng/dL (0.71-1.85)
== END 2024-10-16 09:12 | disposition home or self-care (01) ==
LOC: HO.HHCL 09:11
PROVIDERS: PCP Family Medicine; Visit Provider Internal Medicine
DX: S72.402A Unspecified fracture of lower end of left femur, initial encounter for closed fracture (principal); E11.9 Type 2 diabetes mellitus without complications; A04.72 Enterocolitis due to Clostridium difficile, not specified as recurrent; I10 Essential (primary) hypertension; Z96.652 Presence of left artificial knee joint
CPT/HCPCS: 36415; 80048; 82043; 82306; 82570; 82607; 82728; 82746; 83540; 84439; 84443

== ENCOUNTER 2024-11-19 08:53 | Outpatient (AMB) | payer OTHER, SELFPAY ==
--- NOTE | 2024-11-19 09:12 | MHC.OFFVIS ---
Intake Visit Reasons: OV-Lt TKA rev. DOS 03/24/2024 s/p nga pros fx Intake Note: Trish is a 68 year old female who presents today for a follow up of left total knee arthroplasty revision, performed by Dr. Oro, DOS: 03/24/24. Status post fall on 04/22/2023 resulting in a periprosthetic fracture. At her last visit she was instructed to continue with activities as tolerated, weight bearing with a walker. Continue use of knee brace for stability and follow up in 6 weeks with x-rays. Today patient reports cramping at the posterior aspect of thigh. Complaints of swelling in her leg. States unable to do any prolong walking due to soreness in her leg. She continues to use walker and knee bracing. Allergies Iodinated Contrast Media (IV CONTRAST) Allergy (Severe, Verified 11/19/24 09:17) itching, hives morphine (Morphine) Allergy (Intermediate, Verified 11/19/24 09:17) ITCHING, rash tramadol (Ultram) Allergy (Intermediate, Verified 11/19/24 09:17) rash, itching HPI HPI OV-Lt TKA rev. DOS 03/24/2024 s/p nga pros fx: Details: 68-year-old female returns to the office today status post left total knee arthroplasty revision, performed by Dr. Oro, DOS: 03/24/24. Status post fall on 04/22/2023 resulting in a periprosthetic fracture. She comes in today weightbearing as tolerated with a walker. She continues to use her hinged knee brace. She is experiencing weakness and discomfort in the quad. Otherwise she is doing well. [facility] Medical History Arthritis Hypothyroidism Renal calculi Environmental and seasonal allergies Nocturnal hypoxia Abnormal nuclear stress test Diabetes HTN (hypertension) Cardiomyopathy Bilateral nephrolithiasis Retention of urine Acid reflux Surgical History Status post total left knee replacement History of total left knee replacement (TKR) Hx of lithotripsy (2018) History of total right knee replacement (2011) Hx of repair of right rotator cuff (2013) History of cystoscopy Hx of tubal ligation History of hand surgery Family History Brother Breast cancer Social History Household Members: Spouse Household Members Other:: lives w/her grandson Housing: House Are you a primary home care manager rn to a significant other at home: Yes (grandson 17 yrs) Do you presently have visiting nurse or other home services: No 75 years or older and lives alone: No Alcohol intake: current Alcohol intake frequency: does not drink Comment: post op left knee, WBAT Patient Tobacco Use Status: Never used Tobacco Advance Directives Date on File: 04/14/24 service: No Current occupational status: disabled Current occupation: rt handed Gender identity: Female Female Reproductive History Menstrual Age of Menarche: 12 Review of Systems Const All systems reviewed & are unremarkable except as noted in HPI and below Physical Exam Extrem Other: Left knee incision is well healed. There is no erythema or joint effusion. Range of motion is 0-95 degrees. No direct tenderness around the medial and lateral joint line She is able to activate quad with some weakness Calf is supple and nontender Neurovascularly intact Results Reviewed Results Reviewed: X-rays of the left knee obtained in the office today reviewed by me show a periprosthetic left femur fracture with interval healing. Prosthesis appears to be stable. Assessment & Plan Assessment & Plan (1) Periprosthetic fracture around internal prosthetic left knee joint, initial encounter: Code(s): M97.12XA - Periprosthetic fracture around internal prosthetic left knee joint, initial encounter Category: Medical Plan: I recommend a course of physical therapy to work on strengthening conditioning exercises of the left lower extremity. She has good range of motion but I think she would benefit from some improved quad strength. She will continue weight-bearing as tolerated with a walker. She will use the brace for support. I will see her back in 8 weeks with x-rays, sooner if needed. Orders: Orders XR knee LT 3V Today M25.562 - Pain in left knee PT Evaluation and Treatment Today M97.12XA - Periprosthetic fracture around internal prosthetic left knee joint, initial encounter Coding Level of Care Code Est Pt Level 3 (08441) Complex EM visit Add On G2211 Diagnoses Periprosthetic fracture around internal prosthetic left knee joint, initial encounter M97.12XA
--- OUTSIDE RECORDS SUMMARY | 2024-11-19 09:35 | XMS_ITS | Encounter Summary ---
Author Organization [employer] Address [address] [place] [address] [address] [place] [address] Care Team Providers Care Chief Security And Safety Officer Name Role Phone Ethel Chase Primary Care Provider Vaishnavi Laird PharmD Unavailable [phone] Reason for Visit * Reason Comments Med Refill Encounter Details Date Type Department Care Team (Late Contact Info) Description 08/10/2022 Refill [facility] [address] [place] [id number] [address] [address] Social History Tobacco Use Types Packs/Day Years [...] Care Team (Late st Contact Info) Description 12/01/2024 9:00 AM EDT Clinical Support [facility] [address] [place] [phone] Suad Wilson RN 12/28/2024 9:30 AM EST Medication Management [facility] [address] [place] [address] Vaishnavi Laird PharmD [address] [place] [address] documented as of this encounter Visit Diagnoses Not on filedocumented in this encounter Additional Health Concerns Assessment Noted Time PHQ-9 Depression Total Score: 0 02/08/20 22 10:43 AM EST documented as of this encounter Care Teams Chief Security And Safety Officer Relationship Specialty Start Date End Date Ethel Chase DO [address] [place] [address] PCP - General Family Medicine 10/12/13 Vaishnavi Laird, Zana [address] [place] [id number] Pharmacist Internal Medicine 02/07/23 [id number] 06/11/24 documented as of this encounter
--- OUTSIDE RECORDS SUMMARY | 2024-11-19 09:35 | XMS_ITS | Clinical Summary ---
Author Organization [employer] Address [address] [place] [address] [address] [place] [address] Care Team Providers Care Ballistician Name Role Phone ManuelEthel perry Primary Care Provider Vaishnavi Laird PharmD Unavailable [phone] Allergies Active Allergy Reactions Criticality Noted Date Comments Iodinated Contrast Media Unknown High 02/21/2010 Other Reaction(s): itching, hives Morphine Unknown High 02/21/2010 Other Reaction(s): ITCHING, rash Nsaids Unknown 02/21/2010 Tramadol Rash High 10/18/2023 Medications albuterol (2.5 MG/3ML) 0.083% nebulizer solution Take [...] A DAY NEEDED FOR ANXEITY 023 Active OneTouch Delica Lancets 33G miscIndications:Ty pe 2 diabetes mellitus without complication, without long-term current use of insulin ([facility]) USE TO TEST BLOOD SUGAR TWICE DAILY 100 each 11 024 Active Ventolin HFA 108 (90 Base) MCG/ACT inhaler INHALE 2 PUFFS BY MOUTH EVERY 4 HOURS NEEDED FOR WHEEZING OR SHORTNESS OF BREATH 18 g 1 024 Active glucagon (Baqsimi Two Pack) 3 MG/DOSE nasal powderIndications: Type 2 diabetes mellitus without complication, without long-term current use of insulin (CMS/[facility]) Administer 3 mg via 1 device into the nostril for hypoglycemia with loss of consciousness. If no response after 15 minutes administer an additional dose via 2nd device into other nostril. 2 each 1 024 Active glucose 4 g chewable tablet Chew 4 tablets (16 g) if needed for low blood sugar (BG < 70 mg/dL). 20 tablet 5 024 2024 Active Diclofenac Sodium 1 % gel Apply 2 g topically if needed in the morning, at noon, in the evening, and at bedtime (pain). 150 g 3 024 Active insulin pen needle 32G x 4 mm miscIndications:Ty pe 2 diabetes mellitus without complication, without long-term current use of insulin ([facility]) Use to inject insulin 1 times daily 100 each 3 024 Active pantoprazole (ProtoNix) 40 MG EC tabletIndications: Chronic gastroesophageal reflux disease TAKE 1 TABLET BY MOUTH EVERY MORNING 90 tablet 1 025 Active gabapentin (Neurontin) 600 MG tablet TAKE 1 TABLET BY MOUTH TWICE DAILY IN THE MORNING AND AT BEDTIME 60 tablet 5 025 Active Alcohol Swabs (Alcohol Prep) 70 % padsIndications:Po mabel controlled diabetes mellitus (CMS/[facility]) USE DIRECTED BEFORE INSULIN INJECTION AND sensor CHANGE 100 each 11 025 Active atorvastatin (Lipitor) 20 MG tablet TAKE 1 TABLET BY MOUTH AT BEDTIME 90 tablet 3 025 Active loratadine (Claritin) 10 MG tablet TAKE 1 TABLET BY MOUTH EVERY MORNING 90 tablet 3 Active isosorbide mononitrate ER (Imdur) 30 MG 24 hr tablet TAKE 1 TABLET BY MOUTH EVERY MORNING 90 tablet 3 025 Active meclizine (Antivert) 25 MG tablet TAKE 1 TABLET BY MOUTH THREE TIMES DAILY IN THE MORNING, AT NOON, AND AT BEDTIME NEEDED FOR DIZZINESS 30 tablet 3 025 Active baclofen (Lioresal) 10 MG tablet TAKE 1 TABLET BY MOUTH THREE TIMES DAILY IN THE MORNING, AT NOON, AND AT BEDTIME NEEDED FOR MUSCLE SPASMS 60 tablet 3 025 Active Multiple Vitamins-Iron (Tab-A-Rito/Iron) tablet TAKE 1 TABLET BY MOUTH EVERY MORNING WITH FOOD 90 tablet 1 Active insulin degludec (Tresiba FlexTouch) 100 UNIT/ML injectionIndicatio ns:Type 2 diabetes mellitus without complication, without long-term current use of insulin (CMS/HCC) Inject 28 units subQ once daily at bedtime. 15 mL 5 Active levothyroxine (Synthroid, Levoxyl) 112 MCG tablet TAKE 1 TABLET BY MOUTH EVERY MORNING BEFORE BREAKFAST 90 tablet 3 Active aspirin (Aspirin Adult Low Dose) 81 MG EC tabletIndications: Type 2 diabetes mellitus without complication, with long-term current use of insulin (CMS/HCC) Take 1 tablet (81 mg) by mouth in the evening. 90 tablet 3 025 2025 Active Continuous Glucose Mine Technician (FreeStyle Gerard 3 [place]) deviceIndications: Type 2 diabetes mellitus without complication, with long-term current use of insulin (CMS/HCC) 1 each Once per day. Use as directed for CGM 1 each Active Continuous Glucose Sensor (FreeStyle Gerard 3 Plus Sensor) miscIndications:Ty pe 2 diabetes mellitus without complication, with long-term current use of insulin (CMS/HCC) 1 each every 15 days. Apply 1 every 15 days as directed for CGM 2 each Active glucose blood (FreeStyle Precision Angel Test) test stripIndications:T ype 2 diabetes mellitus without complication, with long-term current use of insulin ([facility]) Use to test blood sugar 2 times daily in case of CGM failure or extremes of BG 500 each 2025 Active naloxone (Narcan) 4 mg/0.1 mL nasal sprayIndications:L hoa-term current use of opiate analgesic Administer 1 spray (4 mg) into affected nostril(s) if needed for opioid reversal. 2 each Active Calcium Carb-Cholecalcifer ol (Oyster Shell Calcium w/D) 500-5 MG-MCG tabletIndications: Osteopenia, unspecified location TAKE 1 TABLET BY MOUTH TWICE DAILY IN THE MORNING AND IN THE EVENING 180 tablet Active cholecalciferol VITAMIN D (Vitamin D-3) 50 MCG (1999 UT) tablet TAKE 1 TABLET BY MOUTH EVERY EVENING 90 tablet Active lisinopril 2.5 MG tabletIndications: Essential hypertension Take 1 tablet (2.5 mg) by mouth Once per day. 30 tablet 2025 Active ketoconazole (NIZOral) 2 % cream APPLY TO THE AFFECTED AREA(S) TOPICALLY ONCE DAILY Active Tirzepatide (Mounjaro) 10 MG/0.5ML solution auto-injectorIndic ations:Type 2 diabetes mellitus without complication, with long-term current use of insulin ([facility]) Inject 10 mg under the skin 1 (one) time per week. 2 mL Active Advair HFA 115-21 MCG/ACT inhaler INHALE 2 PUFFS BY MOUTH TWICE DAILY IN THE MORNING AND AT BEDTIME RINSE MOUTH AFTER USING. AND DO NOT SWALLOW 12 g Active oxyCODONE-acetamin ophen (Percocet) 7.5-325 MG tabletIndications: Other chronic pain Take 1 tablet by mouth every 6 (six) hours if needed for severe pain for up to 28 days. Do not start before November 20, 2024. 112 tablet 025 2024 Active fluticasone-salmet sari (Advair) 115-21 MCG/ACT inhaler Inhale 2 puffs in the morning and at bedtime. Rinse mouth with water after use to reduce aftertaste and incidence of candidiasis. Do not swallow. 12 g 11 024 2024 Discontinued oxyCODONE-acetamin ophen (Percocet) 7.5-325 MG tabletIndications: Other chronic pain Take 1 tablet by mouth every 6 (six) hours if needed for severe pain for up to 28 days. Do not start before September 24, 2024. 112 tablet 025 2024 Discontinued oxyCODONE-acetamin ophen (Percocet) 7.5-325 MG tabletIndications: Other chronic pain TAKE 1 TABLET BY MOUTH EVERY 6 HOURS NEEDED FOR SEVERE PAIN FOR UP TO 28 DAYS 112 tablet 025 2024 Discontinued(R eorder (will not trigger notification to Pharmacy)) Active Problems Problem Noted Date Diagnosed Date Long-term current use of opiate analgesic 2024 Uterine leiomyoma 10/18/2023 Urinary incontinence 05/29/2022 Obesity 05/29/2022 Fatty liver 05/13/2022 Cardiomyopathy 02/07/2022 Nephrolithiasis 02/07/2022 Tremor of right hand 02/07/2022 Hypothyroidism 01/10/2015 Anemia 01/10/2015 Chronic interstitial cystitis 01/10/2015 Chronic low back pain 01/10/2015 Generalized osteoarthritis 01/10/2015 Diverticulosis 01/10/2015 Essential hypertension 01/10/2015 Assessment & Plan (09/17/2024 2:54 PM EDT): Uncontrolled, restart low-dose lisinopril and VNA will check BP daily, fax BP log 3 weeks and will adjust medications as below. PCP to follow-up 1mo later Will check BMP in 2 weeks to monitor electrolytes and GFR. Counseled re low salt diet/increase moderate physical activity. Non smoking patient. [facility]NA will fax BP log to team nurse for blood pressure check in 3 weeks. Continue with a low sodium diet and regular exercise as tolerated. For BP < or = to 139/89 (or 129/79 for diabetic patients) continue current medication regimen and follow up with PCP in 4 weeks. For BP > or = to 140/90 (or 130/80 for diabetic patients) increase Lisinopril to 5 mg once a day Follow up with the Nurse for a second blood pressure check in 2-4 weeks if BP 140-150/90+ (or 130-150/80+ for diabetic patients). Refer to CD[facility] for BP >150/90+. If second Nurse visit is needed: For BP < or = to 139/89 (or 129/79 for diabetic patients) continue current medication regimen and follow up with the PCP in 4 weeks. For BP > or = to 140/90 (or 130/80 for diabetic patients) increase Lisinopril to 10 mg once a day Follow up with the PCP in 4 weeks. Chronic gastroesophageal reflux disease 01/11/20 15 Status [...] Encounters Date Type Department Care Team Description 11/18/2024 Refill [facility] [address] [place] [address] Ethel Chase DO Other chronic pain 11/14/2024 Refill [facility] [address] [place] [address] Ethel Chase DO 11/04/2024 Refill [facility] [address] [place] [address] Ethel Chase DO 11/04/2024 Travel 10/22/2024 Refill [facility] [address] [place] [address] Ethel Chase DO Other chronic pain 10/18/2024 Orders Only [facility] [address] [place] [address] Ethel Chase DO Post-menopause (Primary Dx) 10/16/2024 Orders Only [facility] [address] [place] [address] Ethel Chase DO 10/08/2024 Travel 09/25/2024 Telephone [facility] [place] [address] Ethel Chase DO 09/23/2024 Orders Only [facility] [address] [place] [address] Ethel Chase DO Osteoporosis screening (Primary Dx) 09/23/2024 Refill [facility] [address] [place] [address] Ethel Chase DO Other chronic pain 09/18/2024 Telephone [facility] [address] [place] [address] Ethel Chase DO Care Coordination 09/17/2024 12:15 PM EDT Office Visit [facility] [place] [address] Gail Jc MD Essential hypertension (Primary Dx); Type 2 diabetes mellitus without complication, with long-term current use of insulin ([facility]) 09/17/2024 Travel 09/16/2024 Telephone [facility] [address] Ethel Chase DO chart prep 09/14/2024 Telephone [facility] [place] [address] Ethel Chase DO Nurse Triage 09/14/2024 Telephone [facility] [place] [address] Ethel Chase DO Referral 09/14/2024 Telephone [facility] [address] Ethel Chase DO Appointment Request 09/14/2024 Refill [facility] [place] [address] Ethel Chase DO Osteopenia, unspecified location 09/08/2024 Telephone [facility] [address] tEhel Chase DO CGM PA 09/08/[address] [address] Ethel Chase, Chart Prep 09/03/[address] [address] Ethel Chase, Nurse Triage 09/03/[address] [address] Ethel Chase, Nurse Triage 09/01/[address] [address] Ethel Chase DO 08/26/2024 9:00 AM EDT Clinical Support [address] [address] Suad Wilson, MARY Long-term current use of opiate analgesic (Primary Dx) 08/26/[address] [address] Suad Wilson, MARY Other chronic pain; Long-term current use of opiate analgesic 08/26/2024 Travel 08/25/2024 Travel from Last 3 Months Immunizations Immunization Administration [...] Packs/Day Years Used Date Smoking Tobacco: Never Passive Smoke Exposure: Never Smokeless Tobacco: Never Tobacco Cessation:Counseling Given: [...] Sign Reading Time Taken Comments Blood Pressure 102/62 11/04/2024 9:46 AM EDT Pulse 76 09/17/2024 12:28 PM EDT Temperature 36.4 C (97.5 F) 09/17/2024 12:28 PM EDT Respiratory Rate 22 09/17/2024 12:28 PM EDT Oxygen Saturation 97% 01/29/2024 10:33 AM EST Inhaled Oxygen Concentration - - Weight 121 kg (266 lb 8 oz) 09/17/2024 12:28 PM EDT Height 157.5 cm (5' 2 ) 09/17/2024 12:28 PM EDT Body Mass Index 48.74 09/17/2024 12:28 PM EDT Plan of Treatment Upcoming Encounters Date Type Department Care Team (Late st Contact Info) Description 12/01/2024 9:00 AM EDT Clinical Support [facility] [address] [place] [id number] Suad Wilson RN 12/28/2024 9:30 AM EST Medication Management [facility] [address] [place] [phone] PuiaVaishnavi, PharmD [address] [place] [address] Health Maintenance Due Date Last Done Comments CT Colonography 1955 FIT DNA/Cologuard 1955 FIT 1955 FOBT 1955 Sigmoidoscopy 1955 Diabetes: Foot Exam 12/29/1965 Eye Exam 12/29/1965 Hepatitis A Vaccines (1 of 2 - Risk 2-dose series) 12/29/1974 COVID-19 Vaccine ( season) 2024 12/26/2023, 01/01/2023, 02/07/2022, Additional history exists Influenza Vaccine (#1) 2024 4, 01/01/2023, 02/07/2022, Additional history exists Diabetes: Hemoglobin A1C 01/08/2025 025, 06/30/2024, 06/30/2024, Additional history exists Alcohol/Substance Use Screening 01/28/2025 01/29/2024 SDOH Screening 06/08/2025 06/08/2024 Lipid Panel 06/30/2025 06/30/2024, 10/26, 08/24/2022, Additional history exists Mammogram 08/05/2025 08/06/2023, 05/0 10/2022, 07/03/2022, Additional history exists Depression Screening 09/17/2025 09/17/2024, 09/18/19 25 Tobacco Screening 09/17/2025 09/17/2024 Diabetes: Urine Protein Screening 10/16/2025 10/16/2024, 03/13/2023, 08/24/2022, Additional history exists Pneumococcal Vaccine: 50+ Years [...] Aged 60 years or older Completed 02/07/2023 HIB Vaccines Aged Out No longer eligi [...] Hemoglobin A1c < 7 Result Component 8.6( 12:47 PM EDT) No Vaishnavi Laird, Zana Record your blood sugar as directed Result Component No Vaishnavi Laird, Zana Procedures Procedure Name Priority Date/Time Associated Diagnosis Comments VITAMIN D,25-OH,TOTAL,IA Routine 10/16/2024 9:15 AM EDT FERRITIN Routine 10/16/2024 9:15 AM EDT VITAMIN B12/FOLATE, SERUM PANEL Routine 10/16/2024 9:15 AM EDT TSH Routine 10/16/2024 9:15 AM EDT IRON AND TOTAL IRON BINDING CAPACITY Routine 10/16/2024 9:15 AM EDT ALBUMIN, RANDOM URINE W/CREATININE Routine 10/16/2024 9:15 AM EDT BASIC METABOLIC PANEL Routine 10/16/2024 9:15 AM EDT Essential hypertension T4, FREE Routine 10/16/2024 9:15 AM EDT S/P total knee arthroplasty, left Closed fracture of distal end of left femur, unspecified fracture morphology, initial encounter ([facility]) C. difficile colitis Type 2 diabetes mellitus without complication, without long-term current use of insulin ([facility]) Essential hypertension POCT GLYCATED HEMOGLOBIN, TOTAL Routine 10/08/2024 12:47 PM EDT Type 2 diabetes mellitus without complication, with long-term current use of insulin ([facility]) POCT GLUCOSE Routine 09/17/2024 2:59 PM EDT Type 2 diabetes mellitus without complication, with long-term current use of insulin ([facility]) POCT LENCHO-14 URINE DRUG SCREEN Routine 08/26/2024 8:58 AM EDT Long-term current use of opiate analgesic LIPID PANEL, STANDARD Routine 06/30/2024 10:10 AM EDT S/P total knee arthroplasty, left Closed fracture of distal end of left femur, unspecified fracture morphology, initial encounter ([facility]) C. difficile colitis Type 2 diabetes mellitus without complication, without long-term current use of insulin ([facility]) Essential hypertension BI MAMMOGRAM SCREENING TOMOSYNTHESIS BILATERAL Routine 08/06/2023 11:15 AM EDT ZZZ HISTORICAL HEPATITIS C ANTIBODY RFLX Routine 10/31/2019 9:40 AM EDT HM COLONOSCOPY Routine 03/03/2019 from Last 3 Months or Most Recently Relevant to Health Maintenance Results * Vitamin D, 25-Hydroxy, Total, Immunoassay (10/16/2024 9:15 AM EDT) Vitamin D 25-OH Total 38.4 >30 ng/mL [facility] Comment: Health Based Reference Values*< 20 ng/mL Xgcwpkhem41-52 ng/mL Insufficient> 30 ng/mL Sufficient*Nivia ACOSTA. N Engl J Med. 2007;357:266-280There is [...] Vitamin D results fromdifferent laboratories and methodologies. Published datademonstrated that results from patients undergoinghemodialysis may show a negative bias when tested withvarious automated 25-OH vitamin D assays when compared toLC-MS/MS.When testing samples from patients whose predominant form ofVitamin D is Vitamin D2, such as patients receiving VitaminD2 supplementation, results that are subtherapeutic shouldbe confirmed with another method such as LC-MS/MS. 10/16/2024 9:15 AM EDT 10/16/2024 11:51 AM EDT Ethel Chase LAB BLOOD ORDERABLES Final R esult Performing Organization Address City/[facility] Co de Phone Number [facility] [address] [place] [phone] * Vitamin B12 (Cobalamin) and Folate Panel, Serum (10/16/2024 9:15 AM EDT) Vitamin B12 331 200 - 900 pg/mL [facility] Comment:NORMAL 200-900 PG/ML INDETERMINATE 160-199 PG/ML DEFICIENT < 160 PG/ML Folate 18.2 > or = 4.0 ng/mL [facility] Comment:Reference Values:> o r = 4.0 ng/mL< 4.0 ng/mL suggests folate deficiency Methotrexate, aminopterin and folinic acid(leucovorin) are chemotherapeutic agents whose molecularstructures are similar to folate; therefore, the Architectfolate assay cannot be used for patients using these drugs. 10/16/2024 9:15 AM EDT 10/16/2024 11:51 AM EDT Ethel Salvatore LAB BLOOD ORDERABLES Final R esult Performing Organization Address City/[facility] Co de Phone Number [facility] [address] [place] [phone] * Albumin, Random Urine W/Creatinine (10/16/2024 9:15 AM EDT) Creatinine, Urine 74.63 mg/dL [facility] Microalbumin Urine <5.0 mg/L [facility] Microalbum Creatinine Ratio Ur TNP <30 ug/mg cr [facility] Comment:Unable to calculate albumin/creatinine ratio due to lowmicroalbumin or creatinine result. 10/16/2024 9:15 AM EDT 10/16/2024 11:49 AM EDT Ethel Salvatore LAB URINE ORDERABLES Final R esult Performing Organization Address [facility] Co de Phone Number [facility] [address] [place] [phone] * (ABNORMAL) Iron And Total Iron Binding Capacity (10/16/2024 9:15 AM EDT) Iron 37 30 - 160 mcg/dL [facility] Total Iron Binding Capacity 269 228 - 428 mcg/dL [facility] Percent Iron Saturation 14(L) 15 - 50 % [facility] Unsaturated Iron Binding 232 ug/dL [facility] 10/16/2024 9:15 AM EDT 10/16/2024 11:51 AM EDT Ethel Chase LAB BLOOD ORDERABLES Final R esult Performing Organization Address [facility] Co de Phone Number [facility] [address] [place] [phone] * TSH (10/16/2024 9:15 AM EDT) [facility] Thyroid Stimulating Hormone 3.25 0.32 - 4.0 uIU/mL [facility] Comment:Note: A sustained TS H level above 2.5 uIU/mL may warrant further investigation. TSH 3rd Generation ([facility]) 10/16/2024 9:15 AM EDT 10/16/2024 11:51 AM EDT Ethel Salvatore LAB BLOOD ORDERABLES Final R esult Performing Organization Address City/[facility]/ZIP Co de Phone Number [facility] [address] [place] [phone] * T4, Free (10/16/2024 9:15 AM EDT) Pathologist [facility] Free T4 (Free Thyroxine) 0.98 0.71 - 1.85 ng/dL [facility] Blood Venous blood specimen / Unknown 10/16/2024 9:15 AM EDT 10/16/2024 11:51 AM EDT Ethel Salvatore LAB BLOOD ORDERABLES Final R esult Performing Organization Address [facility]/ZIP Co de Phone Number [facility] [address] [place] [phone] * Ferritin (10/16/2024 9:15 AM EDT) [facility] Ferritin 46 10 - 250 ng/mL [facility] 10/16/2024 9:15 AM EDT 10/16/2024 11:51 AM EDT Ethel Chase LAB BLOOD ORDERABLES Final R esult Performing Organization Address City/[facility] Co de Phone Number [facility] [address] [place] [phone] * (ABNORMAL) Basic Metabolic Panel (10/16/2024 9:15 AM EDT) [facility] Sodium 137 135 - 145 mmol/L [facility] Potassium 4.4 3.3 - 5.1 mmol/L [facility] Chloride 103 96 - 108 mmol/L [facility] Carbon Dioxide 26 22 - 29 mmol/L [facility] Anion Gap 12 12 - 20 [facility] Urea Nitrogen (BUN) 13 9 - 16 mg/dL [facility] Creatinine, Serum 1.10 0.5 - 1.4 mg/dL [facility] Estimated Glomerular Filt Rate 49 [facility] Comment:Chronic Kidney Disea se: Estimated GFR < 60 mL/min/[id number] Kidney Disease: Estimated GFR < 15 mL/min/1.73m2 Glucose 318(H) 60 - 115 mg/dL [facility] Calcium 9.0 8.4 - 10.2 mg/dL [facility] Blood Venous blood specimen / Unknown 10/16/2024 9:15 AM EDT 10/16/2024 11:51 AM EDT Gail Jc MD LAB BLOOD ORDERABLES Fin al Result [facility] [address] [place] [phone] * (ABNORMAL) POCT HGB A1C (10/08/2024 12:47 PM EDT) Hemoglobin A1C 8.6(A) 4.0 - 5.7 % QC Media Lot # [id number] Blood 10/08/2024 12:4 7 PM EDT Result [facility] [place] Chase DO POINT OF CARE TEST ENTER/MARGARITA T ORDERABLES Final Result * (ABNORMAL) POCT Glucose (09/17/2024 2:59 PM EDT) Glucose Blood, POC 334(A) 60 - 200 mg/dL QC Media Lot # [id number] Lot# Expiration Date Blood Capillary blood specimen / Unknown 09/17/2024 2:59 PM EDT Result [facility] Jc MD POINT OF CARE TEST ENTER /EDIT ORDERABLES Final Result * POCT LENCHO-14 Urine Drug Screen (08/26/2024 8:58 AM EDT) THC Negative Negative Cocaine Screen, Urine Negative Negative Opiate Screen, Urine Negative Negative Methamphetamine Screen Urine Negative Negative Amphetamine Screen, Urine Negative Negative Benzodiazepines Screen, Urine Positive Negative Barbiturate Screen, Urine Negative Negative Methadone Screen, Urine Negative Negative Buprenophine Screen, Urine Negative Negative TCA, Urine Negative Negative MDMA Urine Negative Negative ng/mL Oxycodone Screen, Urine Positive Negative Phencyclidine (PCP), Urine Negative Negative Propoxyphene, Urine Negative Negative Fentanyl, Urine Negative Negative Urine Urine specimen obtained by clean catch procedure / Unknown 08/26/2024 8:58 AM EDT Narrative Suad Wilson RN - 08/26/2024 8:58 AM EDT UTOX cup Lot#[id number] Exp. 12/01/25 Internal Pass Control Ethel Chase DO POINT OF CARE TEST ENTER/MARGARITA T ORDERABLES Final Result * Lipid Panel, Standard (06/30/2024 10:10 AM EDT) Triglycerides 126 <150 mg/dL [facility] Comment:Desirable Triglyceri de: less than 150 mg/dLBorderline High Triglyceride 150-199 mg/dLHigh Triglyceride: 200-499 mg/dLVery High Triglyceride: greater than or equal to 5OO mg/dL Cholesterol 113 <200 mg/dL [facility] Comment:Desirable Cholestero l: less than 200 mg/dLBorderline High Cholesterol: 200-239 mg/dLHigh Cholesterol: greater than 239 mg/dL LDL Cholesterol Calculated 46 <100 mg/dL [facility] Comment:Desirable LDL: less than 100 mg/dLNear Optimal/Above Optimal LDL: 110- 129 mg/dLBorderline High LDL: 130-159 mg/dLHigh LDL: 160-189 mg/dLVery High LDL: greater than or equal to 190 mg/dL HDL Cholesterol 42 >40 mg/dL [facility] Comment:Desirable HDL: great er than 40 mg/dL Note: This HDL assay may give artificially low results in patients with liver disease. Blood Venous blood specimen / Unknown 06/30/2024 10:10 AM EDT 06/30/2024 11:19 AM EDT Ethel Chase DO LAB BLOOD ORDERABLES Final R esult [facility] [address] [place] [phone] * BI Mammogram Screening Tomosynthesis Bilateral (08/06/2023 11:15 AM EDT) Anatomical Region Laterality Modality Breast Bilateral Mammography 08/06/2023 11:1 5 AM EDT Narrative 09/05/2023 9:40 AM EDT [address] [place] [address] Mammography Report Signed Patient: Trish Cameron MR#: [id number] : 1955 Acct:[id number] Age/Sex: 67 / F ADM Date: 08/06/23 Loc: MIKO Attending Dr: Ethel Chase DO Ordering Physician: Ethel Chase DO Results: 1N egative Date of Service: 08/06/23 Follow Up: 1 Year From Orig inal Mammogram Procedure(s): MM tomosynthesis screening BI Accession Number(s): [id number] cc: Ethel Chase DO EXAMINATION: MM SCREENING [...] in OV> 09/05/23 0936 DD/ 1115 TD/TT: Bilingual Legal Assistant: Procedure Note Donotuseinterpreter, Image - 09/05/[address] [place] [address] Mammography Report Signed Patient: Trish Cameron MMR#: [id number] : 6Acct:[id number] Age/Sex: 67 / FADM Date: 08/06/23 Loc: HO.MAMMO Attending Dr: Ethel Chase DO Ordering Physician: Ethel Chaseults: 1N egative Date of Service: 08/06/23Follow Up: 1 Year From Orig inal Mammogram Procedure(s): MM tomosynthesis screening BI Accession Number(s): [id number] cc: Ethel Chase DO EXAMINATION: MM SCREENING [...] in OV> 09/05/23 0936 DD/ 1115 TD/TT: Bilingual Legal Assistant: Ethel Chase DO IMG BI PROCEDURES Final Resu lt * HEPATITIS C ANTIBODY RFLX (10/31/2019 9:40 AM EDT) HEPATITIS C ANTIBODY NONREACTIVE NONREACTIVE [facility] Comment: Antibodies to HCV not detected; does not exclude early acute HCV infection. 10/31/2019 9:40 AM EDT Ethel Chase DO HISTORICAL/NON ORDERABLE LAB S Final Result [facility] [address] * Colonoscopy (03/03/2019) Colonoscopy follow up in 5 years Historical Provider HEALTH MAINTENANCE Edited Result - Final from Last 3 Months or Most Recently Relevant to Health Maintenance Insurance [facility] CUST[employer]IAL OPTIONS (HMO D-SNP) JOSÉ MIGUEL HERRING [id number] Care Teams Ballistician Relationship Specialty Start Date End Date Ethel Chase DO [address] [place] [address] PCP - General Family Medicine 10/12/13 Vaishnavi Laird, PharmD [address] [place] [address] Pharmacist Internal Medicine 02/07/23 [id number] 06/11/24
--- OUTSIDE RECORDS SUMMARY | 2024-11-19 09:35 | XMS_ITS | Encounter Summary ---
Author Organization [employer] Address [address] [place] [address] 7[address] [place] [address] Care Team Providers Care Vegetable Worker Name Role Phone Ethel Chase DO Primary Care Provider [phone] Vaishnavi Laird PharmD Unavailable Reason for Visit * Reason Comments Med Refill Encounter Details Date Type Department Care Team ([facility] st Contact Info) Description 03/23/2024 Refill [facility] [address] [place] [address] Ethel Chase DO [address] [place] [address] Other chronic pain Social History Tobacco Use [...] Description 12/01/2024 9:00 AM EDT Clinical Support [facility] [address] [place] [address] Suad Wilson RN 12/28/2024 9:30 AM EST Medication Management [facility] [address] [place] [address] PuiaChristoferVaishnavi, PharmD [address] [place] [address] documented as of this encounter Goals Goal Patient Goal Type Associated Problems Recent Progress Patient-Stated? Author Hemoglobin A1c < 7 Result Component 8.6( 12:47 PM EDT) No Puia, Vaishnavi, PharmD Record your blood sugar as directed Result Component No Puia, Vaishnavi, PharmD documented as of this encounter Visit Diagnoses Diagnosis Other chronic pain documented in this encounter Additional Health Concerns Assessment Noted Time PHQ-9 Depression Total Score: 8 10/18/19 24 11:35 AM EDT documented as of this encounter Care Teams Vegetable Worker Relationship Specialty Start Date End Date Ethel Chase DO [address] [place] [address] PCP - General Family Medicine 10/12/13 Vaishnavi Laird, Zana [address] [place] [address] Pharmacist Internal Medicine 02/07/23 [id number] 06/11/24 documented as of this encounter
--- OUTSIDE RECORDS SUMMARY | 2024-11-19 09:35 | XMS_ITS | Encounter Summary ---
Author Organization [facility] Address [address] [place] [address] Care Team Providers Care Space Operations Name Role Phone Matias Bowling MD Primary Care Provider [phone] Encounter Details Date Type Department Care Team (Late st Contact Info) Description 04/23/2024 Lab Requisition [facility] - Main Lab [address] [place] [address] Matias Bowling MD 38 [facility] [address] [place], [address] Essential (primary) hypertension Social History Tobacco [...] [facility] Comment:Calculation based on the Chronic Kidney Disease Epidemiology Collaboration (CKD-EPI) equation refit without adjustment for race. BUN/Creatinine Ratio 16.8 LAB [...] Resul t [facility] [address] [place] [address], * (ABNORMAL) Complete blood count (04/23/2024 5:04 AM EST) WBC 8.9 4.8 - 10.8 K/mcL LAB HEMETOLOGY METHOD 04/23/2024 9:28 AM [facility] RBC 3.40(L) 3.80 - 4.80 M/mcL LAB HEMETOLOGY METHOD 04/23/2024 9:28 AM [facility] [...] 04/23/2024 9:28 AM [facility] Platelets 333 130 - 400 K/mcL LAB HEMETOLOGY METHOD 04/23/2024 9:28 AM [facility] MPV 9.8 7.0 - 11.0 FL LAB HEMETOLOGY METHOD 04/23/2024 9:28 AM [facility] NRBC 0.0 <1.0 % LAB HEMETOLOGY METHOD 04/23/2024 9:28 AM [facility] NRBC Absolute 0.00 <0.10 K/mcL LAB HEMETOLOGY METHOD 04/23/2024 9:28 AM [facility] Blood Venous blood specimen / Unknown Venipuncture / Unknown 04/23/2024 5:04 AM EST 04/23/2024 8:47 AM EST us Matias Bowling MD LAB BLOOD ORDERABLES Final Resul t [facility] [address] [place] [address], documented in this encounter Visit Diagnoses Diagnosis Essential (primary) hypertension Unspecified essential hypertension documented in this encounter Additional Health Concerns Infection Onset Date Last Indicated Resolved Time Gastrointestinal Rule-Out 04/28/2024 04/27/2024 7:06 PM EDT C. difficile 05/29/2024 05/29/2024 06/22/2024 7:04 PM EDT C. difficile Rule-Out 05/30/2024 05/29/20242024 9:47 AM EDT documented as of this encounter Care Teams Space Operations Relationship Specialty Start Date End Date Matias Bowling MD [address] [place] [phone] PCP - General Family Medicine 04/16/24 documented as of this encounter
--- OUTSIDE RECORDS SUMMARY | 2024-11-19 09:35 | XMS_ITS | Encounter Summary ---
Author Organization [facility] Address [address] [place] [address] Care Team Providers Care Water Leak Repairer Name Role Phone Matias Bowling MD Primary Care Provider [phone] Encounter Details Date Type Department Care Team (Late st Contact Info) Description 05/30/2024 Lab Requisition [facility] - Main Lab 299 [facility] [place] [address] Matias Bowling MD 38 [facility] [address] [place], [address] Diarrhea, unspecified Social History Tobacco Use [...] LAB MICROBIOLOGY METHOD 05/30/2024 11:16 AM EDT [facility] Comment: CRITICAL RESULT POSITIVE FOR TOXIN PRODUCING CLOSTRIDIOIDES DIFFICILE, NO ADDITIONAL TESTING IS NECESSARY. REPEAT SAMPLES SHOULD NOT BE SUBMITTED FOR TEST OF CURE. Stool Rectum structure / Unknown Non-blood Collection / Unknown 05/29/2024 1:50 PM EDT 05/30/2024 9:47 AM EDT Matias Bowling MD LAB MICROBIOLOGY - GENERAL ORDER MARGARET Final Result Performing Organization Address City/[facility]/ZIP Co de Phone Number [facility] [address] [place] [address], [place] [phone] * Occult blood stool, guaiac (05/29/2024 1:50 PM EDT) Occult Blood, Stool #1 Negative Negative 05/30/2024 9:30 AM EDT [facility] Stool Rectum structure / Unknown Non-blood Collection / Unknown 05/29/2024 1:50 PM EDT 05/30/2024 8:36 AM EDT Matias Bowling MD LAB BODY FLUIDS AND STOOLS ORDER MARGARET Final Result Performing Organization Address [facility]/ZIP Co de Phone Number [facility] [address] [place] [address], [place] [phone] * Ova and parasite examination (05/29/2024 1:50 PM EDT) Ova and Parasite No Ova or Parasite seen. 06/03/2024 10:02 AM EDT [facility] Stool Rectum structure / Unknown Non-blood Collection / Unknown 05/29/2024 1:50 PM EDT 05/30/2024 8:36 AM EDT Narrative [facility] - 06/03/2024 10:02 AM EDT Special test request required for Coccidia and Microsporidia. Matias Bowling MD LAB MICROBIOLOGY - GENERAL ORDER MARGARET Final Result Performing Organization Address [facility]/ZIP Co de Phone Number [facility] [address] [place] [address], [place] [phone] * Clostridium difficile toxin (05/29/2024 1:50 PM EDT) C difficile Toxins A+B, EIA 05/30/2024 9:47 AM EDT [facility] Comment:Refer to C. difficil e PCR assay for results. Stool Rectum structure / Unknown Non-blood Collection / Unknown 05/29/2024 1:50 PM EDT 05/30/2024 8:36 AM EDT Matias Bowling MD LAB MICROBIOLOGY - GENERAL ORDER MARGARET Final Result Performing Organization Address [facility] Co de Phone Number [facility] [address] [place] [address], [place] [phone] documented in this encounter Visit Diagnoses Diagnosis Diarrhea, unspecified documented in this encounter Additional Health Concerns Infection Onset Date Last Indicated Resolved Time C. difficile 05/29/2024 05/29/2024 06/22/2024 7:04 PM EDT C. difficile Rule-Out 05/30/2024 05/29/20242024 9:47 AM EDT documented as of this encounter Care Teams Water Leak Repairer Relationship Specialty Start Date End Date Matias Bowling MD [address] [place] [address] [address] [place] [address] PCP - General Family Medicine 04/16/24 documented as of this encounter
--- OUTSIDE RECORDS SUMMARY | 2024-11-19 09:35 | XMS_ITS | Encounter Summary ---
Author Organization [facility] Address [address] [place] [address] Care Team Providers Care Cuff Maker Name Role Phone Matias Bowling MD Primary Care Provider [phone] Encounter Details Date Type Department Care Team (Late st Contact Info) Description 05/13/[address] [facility] - Main Lab [address] [place] [address] Matias Bowling MD 38 [facility] [address] [place], [address] Essential (primary) hypertension Social History Tobacco [...] LAB CHEMISTRY METHOD 05/14/2024 11:24 AM EDT [facility] Potassium 5.2 3.5 - 5.5 mmol/L LAB CHEMISTRY METHOD 05/14/2024 11:24 AM EDT [facility] Chloride 108 96 - 110 mmol/L LAB CHEMISTRY METHOD 05/14/2024 11:24 AM [facility] CO2 25 21 - 32 mmol/L LAB CHEMISTRY METHOD 05/14/2024 11:24 AM [facility] Anion Gap 5 3 - 11 LAB CHEMISTRY METHOD 05/14/2024 11:24 AM [facility] Glucose 132(H) 70 - 100 mg/dL LAB CHEMISTRY METHOD 05/14/2024 11:24 AM [facility] BUN 13 5 - 25 mg/dL LAB CHEMISTRY METHOD 05/14/2024 11:24 AM [facility] Creatinine 1.06 0.50 - 1.10 mg/dL LAB CHEMISTRY METHOD 05/14/2024 11:24 AM [facility] eGFR 57(L) >=60 mL/min/1. 73m2 LAB CHEMISTRY METHOD 05/14/2024 11:24 AM [facility] Comment:Calculation based on the Chronic Kidney Disease Epidemiology Collaboration (CKD-EPI) equation refit without adjustment for race. BUN/Creatinine Ratio 12.3 LAB CHEMISTRY METHOD 05/14/2024 11:24 AM [facility] Calcium 9.6 8.5 - 10.5 mg/dL LAB CHEMISTRY METHOD 05/14/2024 11:24 AM [facility] AST (SGOT) 20 10 - 42 unit/L LAB CHEMISTRY METHOD 05/14/2024 11:24 AM [facility] ALT (SGPT) 28 10 - 60 unit/L LAB CHEMISTRY METHOD 05/14/2024 11:24 AM [facility] Alkaline Phosphatase 160(H) 42 - 121 unit/L LAB CHEMISTRY METHOD 05/14/2024 11:24 AM [facility] Total Protein 6.6 6.0 - 8.0 g/dL LAB CHEMISTRY METHOD 05/14/2024 11:24 AM [facility] Albumin 3.2 3.2 - 5.0 g/dL LAB CHEMISTRY METHOD 05/14/2024 11:24 AM EDT [facility] Total Bilirubin 0.2 0.0 - 1.4 mg/dL LAB CHEMISTRY METHOD 05/14/2024 11:24 AM T [facility] Blood Venous blood specimen / Unknown Venipuncture / Unknown 05/14/2024 6:06 AM EDT 05/14/2024 9:53 AM EDT us Matias Bowling MD LAB BLOOD ORDERABLES Final Resul t [facility] [address] [place] [address], [place] [phone] * (ABNORMAL) Complete blood count (05/14/2024 6:06 AM EDT) WBC 8.8 4.8 - 10.8 K/mcL LAB HEMETOLOGY METHOD 05/14/2024 10:16 AM [facility] RBC 3.50(L) 3.80 - 4.80 M/mcL LAB HEMETOLOGY METHOD 05/14/2024 10:16 AM [facility] Hemoglobin 9.4(L) 11.5 - 16.0 g/dL LAB HEMETOLOGY METHOD 05/14/2024 10:16 AM [facility] Hematocrit 30.4(L) 35.0 - 47.0 % LAB HEMETOLOGY METHOD 05/14/2024 10:16 AM [facility] MCV 85.9 79.0 - 98.0 FL LAB HEMETOLOGY METHOD 05/14/2024 10:16 AM [facility] MCH 26.6(L) 27.0 - 32.0 pcg LAB HEMETOLOGY METHOD 05/14/2024 10:16 AM [facility] MCHC 30.9(L) 32.0 - 37.0 g/dL LAB HEMETOLOGY METHOD 05/14/2024 10:16 AM EDT [facility] RDW 14.6 11.0 - 15.0 % LAB HEMETOLOGY METHOD 05/14/2024 10:16 AM EDT [facility] Platelets 275 130 - 400 K/mcL LAB HEMETOLOGY METHOD 05/14/2024 10:16 AM EDT [facility] MPV 10.1 7.0 - 11.0 FL LAB HEMETOLOGY METHOD 05/14/2024 10:16 AM EDT [facility] NRBC 0.0 <1.0 % LAB HEMETOLOGY METHOD 05/14/2024 10:16 AM EDT [facility] NRBC Absolute 0.00 <0.10 K/mcL LAB HEMETOLOGY METHOD 05/14/2024 10:16 AM EDT [facility] Blood Venous blood specimen / Unknown Venipuncture / Unknown 05/14/2024 6:06 AM EDT 05/14/2024 9:53 AM EDT us Matias Bowling MD LAB BLOOD ORDERABLES Final Resul t [facility] [address] [place] [address], documented in this encounter Visit Diagnoses Diagnosis Essential (primary) hypertension Unspecified essential hypertension documented in this encounter Additional Health Concerns Infection Onset Date Last Indicated Resolved Time Gastrointestinal Rule-Out 04/28/2024 04/27/2024 7:06 PM EDT C. difficile 05/29/2024 05/29/2024 06/22/2024 7:04 PM EDT C. difficile Rule-Out 05/30/2024 05/29/20242024 9:47 AM EDT documented as of this encounter Care Teams Cuff Maker Relationship Specialty Start Date End Date Matias Bowling MD [address] [place] [address] PCP - General Family Medicine 04/16/24 documented as of this encounter
--- OUTSIDE RECORDS SUMMARY | 2024-11-19 09:35 | XMS_ITS | Encounter Summary ---
Author Organization [employer] Address [address] [place] [address] 7[address] [place] [address] Care Team Providers Care Corporate Paralegal Name Role Phone Ethel Chase DO Primary Care Provider [phone] Vaishnavi Laird PharmD Unavailable [phone] Reason for Visit * Reason Onset Date Comments Pre-Op 03/23/2024 Encounter Details Date Type Department Care Team ([facility] st Contact Info) Description 03/23/2024 Telephone [facility] [address] [place] [address] Ethel Chase DO [address] [place] [address] Pre-Op Social History Tobacco Use Types Packs/Day [...] name: Dave Oro [place] [facility] [facility] [place] Surgeon's office number: [phone] Surgeon's office fax number: [phone] Contact name (person you spoke with): Trish - Pt requesting reschedule 02/13 appt. Last office note from surgeon requested: Yes Send Message to Venus Crowell documented in this encounter Plan of Treatment Upcoming Encounters Date Type Department Care Team (Late st Contact Info) Description 12/01/2024 9:00 AM EDT Clinical Support [facility] [address] [place] [address] Suad Wilson RN 12/28/2024 9:30 AM EST Medication Management [facility] [address] [place] [address] Vaishnavi Laird PharmD [address] [place] [address] documented as of this encounter Goals Goal Patient Goal Type Associated Problems Recent Progress Patient-Stated? Author Hemoglobin A1c < 7 Result Component 8.6( 12:47 PM EDT) No Vaishnavi Laird PharmD Record your blood sugar as directed Result Component No Vaishnavi Laird PharmD documented as of this encounter Visit Diagnoses Not on filedocumented in this encounter Additional Health Concerns Assessment Noted Time PHQ-9 Depression Total Score: 8 10/18/19 24 11:35 AM EDT documented as of this encounter Care Teams Corporate Paralegal Relationship Specialty Start Date End Date Ethel Chase DO [address] [place] [address] PCP - General Family Medicine 10/12/13 Vaishnavi Laird PharmD [address] [place] [address] Pharmacist Internal Medicine 02/07/23 [id number] 06/11/24 documented as of this encounter
--- OUTSIDE RECORDS SUMMARY | 2024-11-19 09:35 | XMS_ITS | Encounter Summary ---
Author Organization [employer] Address [address] [place] [address] [address] [place] [address] Care Team Providers Care Quality Assurance Coach Name Role Phone Ethel Chase DO Primary Care Provider Vaishnavi Laird PharmD Unavailable [phone] Reason for Visit * Reason Comments Med Refill Encounter Details Date Type Department Care Team (Late Contact Info) Description 04/06/[address] [address] Ethel Chase DO [address] [place] [address] Other chronic pain Social History Tobacco Use [...] Department Care Team (Late Contact Info) Description 12/01/2024 9:00 AM EDT Clinical Support [address] [address] Suad Wilson RN 12/28/2024 9:30 AM EST Medication Management [facility] [address] [place] [address] Vaishnavi Laird PharmD [address] [place] [address] documented as of this encounter Visit Diagnoses Diagnosis Other chronic pain documented in this encounter Additional Health Concerns Assessment Noted Time PHQ-9 Depression Total Score: 0 02/08/20 22 10:43 AM EST documented as of this encounter Care Teams Quality Assurance Coach Relationship Specialty Start Date End Date Ethel Chase DO [address] [place] [address] PCP - General Family Medicine 10/12/13 Vaishnavi Laird PharmD [address] [place] [address] Pharmacist Internal Medicine 02/07/23 [id number] 06/11/24 documented as of this encounter
--- OUTSIDE RECORDS SUMMARY | 2024-11-19 09:35 | XMS_ITS | Encounter Summary ---
Author Organization [employer] Address [address] [place] [address] 7t [place] [address] Care Team Providers Care Ham Trimmer Name Role Phone Ethel Chase DO Primary Care Provider [phone] Vaishnavi Laird PharmD Unavailable Reason for Visit * Reason Comments Med Refill Encounter Details Date Type Department Care Team (Late Contact Info) Description 06/06/2022 Refill [facility] [address] [place] [address] Ethel Chase DO [address] [place] [address] Other chronic pain Social History Tobacco Use [...] Description 12/01/2024 9:00 AM EDT Clinical Support [address] [address] Suad Wilson RN 12/28/2024 9:30 AM EST Medication Management [address] [address] Vaishnavi Laird PharmD [address] [place] [address] documented as of this encounter Visit Diagnoses Diagnosis Other chronic pain documented in this encounter Additional Health Concerns Assessment Noted Time PHQ-9 Depression Total Score: 0 02/08/20 10:43 AM EST documented as of this encounter Care Teams Ham Trimmer Relationship Specialty Start Date End Date Ethel Chase DO [address] [place] [address] PCP - General Family Medicine 10/12/13 Vaishnavi Laird PharmD [address] [place] [address] Pharmacist Internal Medicine 02/07/23 [id number] 06/11/24 documented as of this encounter
--- OUTSIDE RECORDS SUMMARY | 2024-11-19 09:35 | XMS_ITS | Encounter Summary ---
Author Organization [facility] Address [address] [place] [address] Care Team Providers Care Information Systems Planner Name Role Phone Matias Bowling MD Primary Care Provider [phone] Encounter Details Date Type Department Care Team (Late st Contact Info) Description 05/20/2024 Lab Requisition [facility] - Main Lab [address] [place] [address] Matias Bowling MD 38 [facility] [address] [place], [address] Essential (primary) hypertension Social History Tobacco [...] LAB CHEMISTRY METHOD 05/21/2024 11:29 AM EDT [facility] Potassium 5.9(H) 3.5 - 5.5 mmol/L LAB CHEMISTRY METHOD 05/21/2024 11:29 AM EDT [facility] Chloride 102 96 - 110 mmol/L LAB CHEMISTRY METHOD 05/21/2024 11:29 AM [facility] CO2 27 21 - 32 mmol/L LAB CHEMISTRY METHOD 05/21/2024 11:29 AM [facility] Anion Gap 7 3 - 11 LAB CHEMISTRY METHOD 05/21/2024 11:29 AM [facility] Glucose 152(H) 70 - 100 mg/dL LAB CHEMISTRY METHOD 05/21/2024 11:29 AM [facility] BUN 21 5 - 25 mg/dL LAB CHEMISTRY METHOD 05/21/2024 11:29 AM [facility] Creatinine 2.30(H) 0.50 - 1.10 mg/dL LAB CHEMISTRY METHOD 05/21/2024 11:29 AM [facility] eGFR 23(L) >=60 mL/min/1. 73m2 LAB CHEMISTRY METHOD 05/21/2024 11:29 AM [facility] Comment:Calculation based on the Chronic Kidney Disease Epidemiology Collaboration (CKD-EPI) equation refit without adjustment for race. BUN/Creatinine Ratio 9.1 LAB CHEMISTRY METHOD 05/21/2024 11:29 AM [facility] Calcium 8.9 8.5 - 10.5 mg/dL LAB CHEMISTRY METHOD 05/21/2024 11:29 AM [facility] AST (SGOT) 23 10 - 42 unit/L LAB CHEMISTRY METHOD 05/21/2024 11:29 AM [facility] ALT (SGPT) 30 10 - 60 unit/L LAB CHEMISTRY METHOD 05/21/2024 11:29 AM [facility] Alkaline Phosphatase 174(H) 42 - 121 unit/L LAB CHEMISTRY METHOD 05/21/2024 11:29 AM [facility] Total Protein 6.7 6.0 - 8.0 g/dL LAB CHEMISTRY METHOD 05/21/2024 11:29 AM [facility] Albumin 3.3 3.2 - 5.0 g/dL LAB CHEMISTRY METHOD 05/21/2024 11:29 AM EDT [facility] Total Bilirubin 0.3 0.0 - 1.4 mg/dL LAB CHEMISTRY METHOD 05/21/2024 11:29 AM EDT [facility] Blood Venous blood specimen / Unknown Venipuncture / Unknown 05/21/2024 5:43 AM EDT 05/21/2024 9:27 AM EDT us Matias Bowling MD LAB BLOOD ORDERABLES Final Resul t [facility] [address] [place] [address], [place] [phone] * (ABNORMAL) Complete blood count (05/21/2024 5:43 AM EDT) WBC 10.3 4.8 - 10.8 K/mcL LAB HEMETOLOGY METHOD 05/21/2024 10:10 AM T [facility] RBC 3.50(L) 3.80 - 4.80 M/mcL LAB HEMETOLOGY METHOD 05/21/2024 10:10 AM [facility] Hemoglobin 9.0(L) 11.5 - 16.0 g/dL LAB HEMETOLOGY METHOD 05/21/2024 10:10 AM T [facility] Hematocrit 30.0(L) 35.0 - 47.0 % LAB HEMETOLOGY METHOD 05/21/2024 10:10 AM EDT [facility] MCV 86.5 79.0 - 98.0 FL LAB HEMETOLOGY METHOD 05/21/2024 10:10 AM [facility] MCH 25.9(L) 27.0 - 32.0 pcg LAB HEMETOLOGY METHOD 05/21/2024 10:10 AM T [facility] MCHC 30.0(L) 32.0 - 37.0 g/dL LAB HEMETOLOGY METHOD 05/21/2024 10:10 AM EDT [facility] RDW 15.1(H) 11.0 - 15.0 % LAB HEMETOLOGY METHOD 05/21/2024 10:10 AM EDT [facility] Platelets 272 130 - 400 K/mcL LAB HEMETOLOGY METHOD 05/21/2024 10:10 AM EDT [facility] MPV 10.2 7.0 - 11.0 FL LAB HEMETOLOGY METHOD 05/21/2024 10:10 AM EDT [facility] NRBC 0.0 <1.0 % LAB HEMETOLOGY METHOD 05/21/2024 10:10 AM EDT [facility] NRBC Absolute 0.00 <0.10 K/mcL LAB HEMETOLOGY METHOD 05/21/2024 10:10 AM EDT [facility] Blood Venous blood specimen / Unknown Venipuncture / Unknown 05/21/2024 5:43 AM EDT 05/21/2024 9:27 AM EDT us Matias Bowling MD LAB BLOOD ORDERABLES Final Resul t [facility] [address] [place] [address], documented in this encounter Visit Diagnoses Diagnosis Essential (primary) hypertension Unspecified essential hypertension documented in this encounter Additional Health Concerns Infection Onset Date Last Indicated Resolved Time Gastrointestinal Rule-Out 04/28/2024 04/27/2024 7:06 PM EDT C. difficile 05/29/2024 05/29/2024 06/22/2024 7:04 PM EDT C. difficile Rule-Out 05/30/2024 05/29/20242024 9:47 AM EDT documented as of this encounter Care Teams Information Systems Planner Relationship Specialty Start Date End Date Matias Bowling MD [address] [place] [address] PCP - General Family Medicine 04/16/24 documented as of this encounter
--- OUTSIDE RECORDS SUMMARY | 2024-11-19 09:35 | XMS_ITS | Encounter Summary ---
Author Organization [employer] Address [address] [place] [address] 7[address] [place] [address] Care Team Providers Care Auto Air Conditioning Mechanic Name Role Phone Ethel Chase DO Primary Care Provider [phone] Vaishnavi Laird PharmD Unavailable [phone] Reason for Visit * Reason Onset Date Comments Hospital Follow-up 06/08/2024 Encounter Details Date Type Department Care Team (Late st Contact Info) Description 06/08/2024 Telephone [facility] [address] [place] [address] Ethel Chase DO [address] [place] [address] Hospital Follow-up Social History Tobacco Use Types [...] from pt requesting a HDF appt. Hospital: [facility] Date of admission: 04/[address] [facility] and 04/15 admitted into [facility] Discharge date: 06/04/24 Diagnosed: Left leg fracture post simpson *Send message to [facility] Coordinators Contact pt at [phone] documented in this encounter Plan of Treatment Upcoming Encounters Date Type Department Care Team ([facility] st Contact Info) Description 12/01/2024 9:00 AM EDT Clinical Support [facility] [address] [place] [address] Suad Wilson, RN 12/28/2024 9:30 AM EST Medication Management [facility] [address] [place] [address] Vaishnavi Laird, Zana [address] [place] [address] documented as of this encounter Goals Goal Patient Goal Type Associated Problems Recent Progress Patient-Stated? Author Hemoglobin A1c < 7 Result Component 8.6( 5 12:47 PM EDT) No Twilaia, Vaishnavi, PharmD Record your blood sugar as directed Result Component No Vaishnavi Laird, PharmD documented as of this encounter Visit Diagnoses Not on filedocumented in this encounter Additional Health Concerns Assessment Noted Time PHQ-9 Depression Total Score: 8 10/18/19 24 11:35 AM EDT documented as of this encounter Care Teams Auto Air Conditioning Mechanic Relationship Specialty Start Date End Date Ethel Chase DO [address] [place] [address] PCP - General Family Medicine 10/12/13 Vaishnavi Laird, PharmD [address] [place] [address] Pharmacist Internal Medicine 02/07/23 [id number] 06/11/24 documented as of this encounter
--- OUTSIDE RECORDS SUMMARY | 2024-11-19 09:35 | XMS_ITS | Encounter Summary ---
Author Organization [facility] Address [address] [place] [address] Care Team Providers Care Balloon Tester Name Role Phone Matias Bowling MD Primary Care Provider [phone] Encounter Details Date Type Department Care Team (Late st Contact Info) Description 05/22/2024 Lab Requisition [facility] - Main Lab [address] [place] [address] Matias Bowling MD 38 [facility] [address] [place], [address] 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 classified elsewhere (CMS/HCC [...] LAB CHEMISTRY METHOD 05/22/2024 11:37 AM EDT [facility] Potassium 5.2 3.5 - 5.5 mmol/L LAB CHEMISTRY METHOD 05/22/2024 11:37 AM [facility] Chloride 102 96 - 110 mmol/L LAB CHEMISTRY METHOD 05/22/2024 11:37 AM [facility] CO2 25 21 - 32 mmol/L LAB CHEMISTRY METHOD 05/22/2024 11:37 AM [facility] Anion Gap 7 3 - 11 LAB CHEMISTRY METHOD 05/22/2024 11:37 AM [facility] Glucose 163(H) 70 - 100 mg/dL LAB CHEMISTRY METHOD 05/22/2024 11:37 AM [facility] BUN 18 5 - 25 mg/dL LAB CHEMISTRY METHOD 05/22/2024 11:37 AM [facility] Creatinine 1.65(H) 0.50 - 1.10 mg/dL LAB CHEMISTRY METHOD 05/22/2024 11:37 AM [facility] eGFR 34(L) >=60 mL/min/1. 73m2 LAB CHEMISTRY METHOD 05/22/2024 11:37 AM [facility] Comment:Calculation based on the Chronic Kidney Disease Epidemiology Collaboration (CKD-EPI) equation refit without adjustment for race. BUN/Creatinine Ratio 10.9 LAB CHEMISTRY METHOD 05/22/2024 11:37 AM [facility] Calcium 8.8 8.5 - 10.5 mg/dL LAB CHEMISTRY METHOD 05/22/2024 11:37 AM [facility] Blood Venous blood specimen / Unknown Venipuncture / Unknown 05/22/2024 8:23 AM EDT 05/22/2024 10:31 AM EDT us Matias Bowling MD LAB BLOOD ORDERABLES Final Resul t [facility] [address] [place] [address], * (ABNORMAL) Complete blood count (05/22/2024 8:23 AM EDT) [facility] WBC 9.8 4.8 - 10.8 K/mcL LAB HEMETOLOGY METHOD 05/22/2024 11:21 AM [facility] RBC 3.60(L) 3.80 - 4.80 M/mcL LAB HEMETOLOGY METHOD 05/22/2024 11:21 AM [facility] Hemoglobin 9.5(L) 11.5 - 16.0 g/dL LAB HEMETOLOGY METHOD 05/22/2024 11:21 AM [facility] Hematocrit 31.2(L) 35.0 - 47.0 % LAB HEMETOLOGY METHOD 05/22/2024 11:21 AM [facility] MCV 86.4 79.0 - 98.0 FL LAB HEMETOLOGY METHOD 05/22/2024 11:21 AM [facility] MCH 26.3(L) 27.0 - 32.0 pcg LAB HEMETOLOGY METHOD 05/22/2024 11:21 AM [facility] MCHC 30.4(L) 32.0 - 37.0 g/dL LAB HEMETOLOGY METHOD 05/22/2024 11:21 AM [facility] RDW 14.7 11.0 - 15.0 % LAB HEMETOLOGY METHOD 05/22/2024 11:21 AM [facility] Platelets 278 130 - 400 K/mcL LAB HEMETOLOGY METHOD 05/22/2024 11:21 AM [facility] MPV 10.5 7.0 - 11.0 FL LAB HEMETOLOGY METHOD 05/22/2024 11:21 AM [facility] NRBC 0.0 <1.0 % LAB HEMETOLOGY METHOD 05/22/2024 11:21 AM [facility] NRBC Absolute 0.00 <0.10 K/mcL LAB HEMETOLOGY METHOD 05/22/2024 11:21 AM EDT [facility] Blood Venous blood specimen / Unknown Venipuncture / Unknown 05/22/2024 8:23 AM EDT 05/22/2024 10:31 AM EDT us Matias Bowling MD LAB BLOOD ORDERABLES Final Resul t [facility] [address] [place] [address], documented in this encounter Visit Diagnoses Diagnosis 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 classified elsewhere (CMS/HCC V24, CMS/HCC V28) Hyperlipidemia, unspecified documented in this encounter Additional Health Concerns Infection Onset Date Last Indicated Resolved Time Gastrointestinal Rule-Out 04/28/2024 04/27/2024 7:06 PM EDT C. difficile 05/29/2024 05/29/2024 06/22/2024 7:04 PM EDT C. difficile Rule-Out 05/30/2024 05/29/20242024 9:47 AM EDT documented as of this encounter Care Teams Balloon Tester Relationship Specialty Start Date End Date Matias Bowling MD [address] [place] [address] [address] [place] [address] PCP - General Family Medicine 04/16/24 documented as of this encounter
--- OUTSIDE RECORDS SUMMARY | 2024-11-19 09:35 | XMS_ITS | Encounter Summary ---
Author Organization [facility] Address [address] [place] [address] Care Team Providers Care Food Service Order Clerk Name Role Phone Matias Bowling MD Primary Care Provider [phone] Encounter Details Date Type Department Care Team (Late st Contact Info) Description 06/03/2024 Lab Requisition [facility] - Main Lab [address] [place] [address] Matias Bowling MD 38 [facility] [address] [place], [address] Essential (primary) hypertension Social History Tobacco [...] [facility] Chloride 102 96 - 110 mmol/L LAB CHEMISTRY METHOD 06/04/2024 11:53 AM [facility] CO2 29 21 - 32 mmol/L LAB CHEMISTRY METHOD 06/04/2024 11:53 AM [facility] Anion Gap 8 3 - 11 LAB CHEMISTRY METHOD 06/04/2024 11:53 AM [facility] Glucose 159(H) 70 - 100 mg/dL LAB CHEMISTRY METHOD 06/04/2024 11:53 AM [facility] BUN 11 5 - 25 mg/dL LAB CHEMISTRY METHOD 06/04/2024 11:53 AM [facility] Creatinine 1.11(H) 0.50 - 1.10 mg/dL LAB CHEMISTRY METHOD 06/04/2024 11:53 AM [facility] eGFR 54(L) >=60 mL/min/1. 73m2 LAB CHEMISTRY METHOD 06/04/2024 11:53 AM [facility] Comment:Calculation based on the Chronic Kidney Disease Epidemiology Collaboration (CKD-EPI) equation refit without adjustment for race. BUN/Creatinine Ratio 9.9 LAB CHEMISTRY METHOD 06/04/2024 11:53 AM [facility] Calcium 9.0 8.5 - 10.5 mg/dL LAB CHEMISTRY METHOD 06/04/2024 11:53 AM [facility] AST (SGOT) 16 10 - 42 unit/L LAB CHEMISTRY METHOD 06/04/2024 11:53 AM [facility] ALT (SGPT) 17 10 - 60 unit/L LAB CHEMISTRY METHOD 06/04/2024 11:53 AM [facility] Alkaline Phosphatase 144(H) 42 - 121 unit/L LAB CHEMISTRY METHOD 06/04/2024 11:53 AM [facility] Total Protein 6.7 6.0 - 8.0 g/dL LAB CHEMISTRY METHOD 06/04/2024 11:53 AM [facility] Albumin 3.2 3.2 - 5.0 g/dL LAB CHEMISTRY METHOD 06/04/2024 11:53 AM EDT [facility] Total Bilirubin 0.2 0.0 - 1.4 mg/dL LAB CHEMISTRY METHOD 06/04/2024 11:53 AM [facility] Blood Venous blood specimen / Unknown Venipuncture / Unknown 06/04/2024 5:45 AM EDT 06/04/2024 11:02 AM EDT us Matias Bowling MD LAB BLOOD ORDERABLES Final Resul t [facility] [address] [place] [address], [place] [phone] * (ABNORMAL) Complete blood count (06/04/2024 5:45 AM EDT) WBC 12.1(H) 4.8 - 10.8 K/mcL LAB HEMETOLOGY METHOD 06/04/2024 11:21 AM [facility] RBC 3.50(L) 3.80 - 4.80 M/mcL LAB HEMETOLOGY METHOD 06/04/2024 11:21 AM [facility] Hemoglobin 9.1(L) 11.5 - 16.0 g/dL LAB HEMETOLOGY METHOD 06/04/2024 11:21 AM [facility] Hematocrit 29.5(L) 35.0 - 47.0 % LAB HEMETOLOGY METHOD 06/04/2024 11:21 AM [facility] MCV 85.0 79.0 - 98.0 FL LAB HEMETOLOGY METHOD 06/04/2024 11:21 AM [facility] MCH 26.2(L) 27.0 - 32.0 pcg LAB HEMETOLOGY METHOD 06/04/2024 11:21 AM [facility] MCHC 30.8(L) 32.0 - 37.0 g/dL LAB HEMETOLOGY METHOD 06/04/2024 11:21 AM EDT [facility] RDW 14.9 11.0 - [...] [facility] [address] [place] [address], documented in this encounter Visit Diagnoses Diagnosis Essential (primary) hypertension Unspecified essential hypertension documented in this encounter Additional Health Concerns Infection Onset Date Last Indicated Resolved Time C. difficile 05/29/2024 05/29/2024 06/22/2024 7:04 PM EDT documented as of this encounter Care Teams Food Service Order Clerk Relationship Specialty Start Date End Date Matias Bowling MD 38 [facility] [address] [place] [address] PCP - General Family Medicine 04/16/24 documented as of this encounter
--- OUTSIDE RECORDS SUMMARY | 2024-11-19 09:35 | XMS_ITS | Encounter Summary ---
Author Organization [employer] Address [address] [place] [address] 7[address] [place] [address] Care Team Providers Care Supervisor Tower Name Role Phone Ethel Chase DO Primary Care Provider Vaishnavi Laird PharmD Unavailable [phone] Reason for Visit * Reason Comments Med Refill Encounter Details Date Type Department Care Team ([facility] st Contact Info) Description 06/07/2022 Refill [facility] [address] [place] [address] Ethel Chase DO [address] [place] [address] Other chronic pain Social History Tobacco Use [...] Description 12/01/2024 9:00 AM EDT Clinical Support [address] [address] Suad Wilson, RN 12/28/2024 9:30 AM EST Medication Management [address] [address] Vaishnavi Laird PharmD [address] [place] [address] documented as of this encounter Visit Diagnoses Diagnosis Other chronic pain documented in this encounter Additional Health Concerns Assessment Noted Time PHQ-9 Depression Total Score: 0 02/08/20 10:43 AM EST documented as of this encounter Care Teams Supervisor Tower Relationship Specialty Start Date End Date Ethel Chase DO [address] [place] [address] PCP - General Family Medicine 10/12/13 Vaishnavi Laird PharmD [address] [place] [address] Pharmacist Internal Medicine 02/07/23 [id number] 06/11/24 documented as of this encounter
--- OUTSIDE RECORDS SUMMARY | 2024-11-19 09:35 | XMS_ITS | Encounter Summary ---
Author Organization [employer] Address [address] [facility] 7[address] [place] [address] Care Team Providers Care Bus Driver/Monitor Name Role Phone Ethel Chase DO Primary Care Provider [phone] Vaishnavi Laird PharmD Unavailable [phone] Reason for Visit * Reason Onset Date Comments Med Refill 11/18/2024 Encounter Details Date Type Department Care Team (Late st Contact Info) Description 11/18/2024 Refill [facility] [address] [place] [address] Ethel Chase DO 230 [place] [address] Other chronic pain Social History Tobacco Use Types Packs/Day Years Used Date Smoking Tobacco: Never Passive Smoke Exposure: Never Smokeless Tobacco: Never Alcohol Use Standard [...] as of this encounter Miscellaneous Notes * Addendum Note - Myles Wilson RN - 11/18/2024 2:45 PM EDTAddended by: MYLES WILSON on: 11/18/2024 02:45 PM Modules accepted: Orders * Telephone Encounter - Rosemary Hernandez LPN - 11/18/2024 2:05 PM EDT Received request on oxyCODONE-acetaminophen (Percocet) 7.5-325 MG tablet documented in this encounter Plan of Treatment Upcoming Encounters Date Type Department Care Team (Late st Contact Info) Description 12/01/2024 9:00 AM EDT Clinical Support [facility] MEDICINE [address] [place] [phone] Myles Wilson RN 12/28/2024 9:30 AM EST Medication Management [facility]INE [address] [place] [address] Vaishnavi Laird, PharmD [address] [place] [address] documented as of this encounter Goals Goal Patient Goal Type Associated Problems Recent Progress Patient-Stated? Author Hemoglobin A1c < 7 Result Component 8.6( 12:47 PM EDT) No Vaishnavi Laird PharmRina Record your blood sugar as directed Result Component No Vaishnavi Laird PharmD documented as of this encounter Visit Diagnoses Diagnosis Other chronic pain documented in this encounter Additional Health Concerns Assessment Noted Time PHQ-9 Depression Total Score: 0 09/18/19 12:29 PM EDT documented as of this encounter Care Teams Bus Driver/Monitor Relationship Specialty Start Date End Date Ethel Chase DO [address] [place] [address] PCP - General Family Medicine 10/12/13 Vaishnavi Laird PharmD [address] [place] [address] Pharmacist Internal Medicine 02/07/23 [id number] 06/11/24 documented as of this encounter
--- OUTSIDE RECORDS SUMMARY | 2024-11-19 09:35 | XMS_ITS | Encounter Summary ---
Author Organization [facility] Address [address] [place] [address] Care Team Providers Care Oil Well Service Operator Helper Name Role Phone Matias Bowling MD Primary Care Provider [phone] Encounter Details Date Type Department Care Team (Late st Contact Info) Description 05/06/2024 Lab Requisition [facility] - Main Lab [address] [place] [address] Matias Bowling MD 38 [facility] [address] [place], [address] Essential (primary) hypertension Social History Tobacco [...] Resul t [facility] [address] [place] [address], [place] [phone] * (ABNORMAL) Complete blood count (05/07/2024 5:12 [...] Resul t [facility] [address] [place] [address], documented in this encounter Visit Diagnoses Diagnosis Essential (primary) hypertension Unspecified essential hypertension documented in this encounter Additional Health Concerns Infection Onset Date Last Indicated Resolved Time Gastrointestinal Rule-Out 04/28/2024 04/27/2024 7:06 PM EDT C. difficile 05/29/2024 05/29/2024 06/22/2024 7:04 PM EDT C. difficile Rule-Out 05/30/2024 05/29/20242024 9:47 AM EDT documented as of this encounter Care Teams Oil Well Service Operator Helper Relationship Specialty Start Date End Date Matias Bowling MD 38 [facility] [address] [place] [phone] PCP - General Family Medicine 04/16/24 documented as of this encounter
--- OUTSIDE RECORDS SUMMARY | 2024-11-19 09:35 | XMS_ITS | Encounter Summary ---
Author Organization [employer] Address [address] [place] [address] 7[address] [place] [address] Care Team Providers Care Automotive Sales Manager Name Role Phone Ethel Chase DO Primary Care Provider [phone] Vaishnavi Laird PharmD Unavailable [phone] Reason for Visit * Reason Comments Med Refill Encounter Details Date Type Department Care Team ([facility] st Contact Info) Description 11/14/2024 Refill [facility] [address] [place] [address] Ethel Chase DO [address] [place] [address] Social History Tobacco Use Types Packs/Day Years [...] Description 12/01/2024 9:00 AM EDT Clinical Support [facility] [address] [place] [address] Suad Wilson RN 12/28/2024 9:30 AM EST Medication Management [facility] [address] [place] [address] PuiaChristoferVaishnavi, PharmD [address] [place] [address] documented as of this encounter Goals Goal [...] Time PHQ-9 Depression Total Score: 0 09/18/19 25 12:29 PM EDT documented as of this encounter Care Teams Automotive Sales Manager Relationship Specialty Start Date End Date Ethel Chase DO [address] [place] [address] PCP - General Family Medicine 10/12/13 Vaishnavi Laird, BrianD [address] [place] [address] Pharmacist Internal Medicine 02/07/23 [id number] 06/11/24 documented as of this encounter
--- OUTSIDE RECORDS SUMMARY | 2024-11-19 09:35 | XMS_ITS | Encounter Summary ---
Author Organization [facility] Address [address] [place] [address] Care Team Providers Care Supply Chain Manager Name Role Phone Matias Bowling MD Primary Care Provider [phone] Encounter Details Date Type Department Care Team (Late st Contact Info) Description 04/16/2024 Lab Requisition [facility] - Main Lab [address] [place] [address] Matias Bowling MD 38 [facility] [address] [place], [address] Essential (primary) hypertension Social History Tobacco [...] LAB CHEMISTRY METHOD 04/16/2024 11:36 AM EST [facility] Potassium 4.2 3.5 - 5.5 mmol/L LAB CHEMISTRY METHOD 04/16/2024 11:36 AM EST [facility] Chloride 103 96 - 110 mmol/L LAB CHEMISTRY METHOD 04/16/2024 11:36 AM [facility] CO2 25 21 - 32 mmol/L LAB CHEMISTRY METHOD 04/16/2024 11:36 AM [facility] Anion Gap 13(H) 3 - 11 LAB CHEMISTRY METHOD 04/16/2024 11:36 AM [facility] Glucose 96 70 - 100 mg/dL LAB CHEMISTRY METHOD 04/16/2024 11:36 AM [facility] BUN 13 5 - 25 mg/dL LAB CHEMISTRY METHOD 04/16/2024 11:36 AM [facility] Creatinine 1.13(H) 0.50 - 1.10 mg/dL LAB CHEMISTRY METHOD 04/16/2024 11:36 AM [facility] eGFR 53(L) >=60 mL/min/1. 73m2 LAB CHEMISTRY METHOD 04/16/2024 11:36 AM [facility] Comment:Calculation based on the Chronic Kidney Disease Epidemiology Collaboration (CKD-EPI) equation refit without adjustment for race. BUN/Creatinine Ratio 11.5 LAB CHEMISTRY METHOD 04/16/2024 11:36 AM [facility] Calcium 9.1 8.5 - 10.5 mg/dL LAB CHEMISTRY METHOD 04/16/2024 11:36 AM [facility] AST (SGOT) 31 10 - 42 unit/L LAB CHEMISTRY METHOD 04/16/2024 11:36 AM [facility] ALT (SGPT) 33 10 - 60 unit/L LAB CHEMISTRY METHOD 04/16/2024 11:36 AM [facility] Alkaline Phosphatase 181(H) 42 - 121 unit/L LAB CHEMISTRY METHOD 04/16/2024 11:36 AM [facility] Total Protein 7.5 6.0 - 8.0 g/dL LAB CHEMISTRY METHOD 04/16/2024 11:36 AM [facility] Albumin 3.3 3.2 - 5.0 g/dL LAB CHEMISTRY METHOD 04/16/2024 11:36 AM [facility] Total Bilirubin 0.4 0.0 - 1.4 mg/dL LAB CHEMISTRY METHOD 04/16/2024 11:36 AM [facility] Blood Venous blood specimen / Unknown Venipuncture / Unknown 04/16/2024 7:33 AM EST 04/16/2024 10:20 AM EST us Matias Bowling MD LAB BLOOD ORDERABLES Final Resul t [facility] [address] [place] [address], * (ABNORMAL) Complete blood count (04/16/2024 7:33 AM EST) WBC 11.5(H) 4.8 - 10.8 K/mcL LAB HEMETOLOGY METHOD 04/16/2024 11:12 AM [facility] RBC 3.70(L) 3.80 - 4.80 M/mcL LAB HEMETOLOGY METHOD 04/16/2024 11:12 AM [facility] Hemoglobin 9.9(L) 11.5 - 16.0 g/dL LAB HEMETOLOGY METHOD 04/16/2024 11:12 AM [facility] Hematocrit 32.1(L) 35.0 - 47.0 % LAB HEMETOLOGY METHOD 04/16/2024 11:12 AM [facility] MCV 87.5 79.0 - 98.0 FL LAB HEMETOLOGY METHOD 04/16/2024 11:12 AM [facility] MCH 27.0 27.0 - 32.0 pcg LAB HEMETOLOGY METHOD 04/16/2024 11:12 AM [facility] MCHC 30.8(L) 32.0 - 37.0 g/dL LAB HEMETOLOGY METHOD 04/16/2024 11:12 AM EST [facility] RDW 14.2 11.0 - 15.0 % LAB HEMETOLOGY METHOD 04/16/2024 11:12 AM EST [facility] Platelets 443(H) 130 - 400 K/mcL LAB HEMETOLOGY METHOD 04/16/2024 11:12 AM EST [facility] MPV 9.8 7.0 - 11.0 FL LAB HEMETOLOGY METHOD 04/16/2024 11:12 AM EST [facility] NRBC 0.0 <1.0 % LAB HEMETOLOGY METHOD 04/16/2024 11:12 AM EST [facility] NRBC Absolute 0.00 <0.10 K/mcL LAB HEMETOLOGY METHOD 04/16/2024 11:12 AM [facility] Blood Venous blood specimen / Unknown Venipuncture / Unknown 04/16/2024 7:33 AM EST 04/16/2024 10:20 AM EST us Matias Bowling MD LAB BLOOD ORDERABLES Final Resul t [facility] [address] [place] [address], documented in this encounter Visit Diagnoses Diagnosis Essential (primary) hypertension Unspecified essential hypertension documented in this encounter Additional Health Concerns Infection Onset Date Last Indicated Resolved Time Gastrointestinal Rule-Out 04/28/2024 04/27/2024 7:06 PM EDT C. difficile 05/29/2024 05/29/2024 06/22/2024 7:04 PM EDT C. difficile Rule-Out 05/30/2024 05/29/20242024 9:47 AM EDT documented as of this encounter Care Teams Supply Chain Manager Relationship Specialty Start Date End Date Matias Bowling MD [address] [place] [address] [address] [place] [phone] PCP - General Family Medicine 04/16/24 documented as of this encounter
--- OUTSIDE RECORDS SUMMARY | 2024-11-19 09:35 | XMS_ITS | Encounter Summary ---
Author Organization [employer] Address [address] [place] [address] 7t [place] [address] Care Team Providers Care Store Receiving Clerk Name Role Phone Ethel Chase DO Primary Care Provider [phone] Vaishnavi Laird PharmD Unavailable [phone] Reason for Visit * Reason Onset Date Comments Nurse Triage 04/16/2023 Encounter Details Date Type Department Care Team ([facility] st Contact Info) Description 04/16/2023 Telephone [facility] MEDICINE [address] [place] [address] Ethel Chase DO [address] [place] [address] Nurse Triage Social History Tobacco Use Types [...] PM EST Triage call regarding message from [facility] see below. Pt answers call , [place] [employer] ID [id number], but, Pt is speaking swazi well. Pt reports only high BS was [...] if any further problem to come to [facility] for provider to see Pt . [...] - You become worse Tc from [facility] reporting patient has extreme high blood sugars: 355 Saturday Down to the 250 today Advises that her glucose monitor keeps beeping, [facility] Nurse advised that pt refused urgent group home visit but was advised to go to the urgent. Please contact pt [phone] Mal[place]ian Speaker * Telephone Encounter - Tramaienhernan Pawel Grider - 04/16/2023 4:18 PM EST Tc from [facility] reporting patient has extreme high blood sugars: 355 Saturday Down to the 250 today Advises that her glucose monitor keeps beeping, [facility] Nurse advised that pt refused urgent group home visit but was advised to go to the urgent. Please contact pt [phone] Mal[place]ian Speaker documented in this encounter Plan of Treatment Upcoming Encounters Date Type Department Care Team (Late st Contact Info) Description 12/01/2024 9:00 AM EDT Clinical Support [facility] MEDICINE [address] [place] [address] Suad Wilson RN 12/28/2024 9:30 AM EST Medication Management [facility] MEDICINE [address] [place] [address] PuiaVaishnavi, PharmD [address] [place] [address] documented as of this encounter Goals Goal [...] documented as of this encounter Care Teams Store Receiving Clerk Relationship Specialty Start Date End Date Ethel Chase DO [address] [place] [address] PCP - General Family Medicine 10/12/13 Vaishnavi Laird PharmD [address] [place] [address] Pharmacist Internal Medicine 02/07/23 [id number] 06/11/24 documented as of this encounter
--- OUTSIDE RECORDS SUMMARY | 2024-11-19 09:35 | XMS_ITS | Clinical Summary ---
Author Organization [facility] Address [address] [facility] [address] [place] [address] Phone Care Team Providers Care Surgical Elastic Knitter Hand Frame Name Role Phone Ethel Chase Primary Care Provider Social History Tobacco Use [...] 12/29/2005 OSTEOPOROSIS SCREENING INITI AL (ONE-TIME) 12/29/2020 INFLUENZA VACCINE (#1) 2024 COVID-19 VACCINE ( - 2023-2 5 season) 2024 RSV VACCINE (1 - 1-dose 75+ series) [...] MEDICARE REPLACEMENT MEDICARE REPLACEMENT [place] [id number] Care Teams Surgical Elastic Knitter Hand Frame Relationship Specialty Start Date End Date Salvatore EthelDO [address] [place] [address] PCP - General Family Medicine 12/19/23 Additional Source Comments The information contained in this document represents components of the legal health record. It is not the complete legal health record.[facility]
--- OUTSIDE RECORDS SUMMARY | 2024-11-19 09:35 | XMS_ITS | Encounter Summary ---
Author Organization [facility] Address [address] [place] [address] Care Team Providers Care Narrow Gauge Engineer Name Role Phone Matias Bowling MD Primary Care Provider [phone] Encounter Details Date Type Department Care Team (Late st Contact Info) Description 05/27/2024 Lab Requisition [facility] - Main Lab [address] [place] [address] Matias Bowling MD 38 [facility] 204 [place], [address] Essential (primary) hypertension Social History Tobacco [...] LAB CHEMISTRY METHOD 05/28/2024 10:13 AM EDT [facility] Potassium 4.2 3.5 - 5.5 mmol/L LAB CHEMISTRY METHOD 05/28/2024 10:13 AM EDT [facility] Chloride 103 96 - 110 mmol/L LAB CHEMISTRY METHOD 05/28/2024 10:[address] [facility] CO2 28 21 - 32 mmol/L LAB CHEMISTRY METHOD 05/28/2024 10:[address] [facility] Anion Gap 6 3 - 11 LAB CHEMISTRY METHOD 05/28/2024 10:[address] [facility] Glucose 141(H) 70 - 100 mg/dL LAB CHEMISTRY METHOD 05/28/2024 10:[address] [facility] BUN 13 5 - 25 mg/dL LAB CHEMISTRY METHOD 05/28/2024 10:[address] [facility] Creatinine 1.21(H) 0.50 - 1.10 mg/dL LAB CHEMISTRY METHOD 05/28/2024 10:[address] [facility] eGFR 49(L) >=60 mL/min/1. 73m2 LAB CHEMISTRY METHOD 05/28/2024 10:[address] [facility] Comment:Calculation based on the Chronic Kidney Disease Epidemiology Collaboration (CKD-EPI) equation refit without adjustment for race. BUN/Creatinine Ratio 10.7 LAB CHEMISTRY METHOD 05/28/2024 10:[address] [facility] Calcium 8.6 8.5 - 10.5 mg/dL LAB CHEMISTRY METHOD 05/28/2024 10:[address] [facility] AST (SGOT) 12 10 - 42 unit/L LAB CHEMISTRY METHOD 05/28/2024 10:[address] [facility] ALT (SGPT) 19 10 - 60 unit/L LAB CHEMISTRY METHOD 05/28/2024 10:[address] [facility] Alkaline Phosphatase 147(H) 42 - 121 unit/L LAB CHEMISTRY METHOD 05/28/2024 10:[address] [facility] Total Protein 6.3 6.0 - 8.0 g/dL LAB CHEMISTRY METHOD 05/28/2024 10:[address] [facility] Albumin 3.1(L) 3.2 - 5.0 g/dL LAB CHEMISTRY METHOD 05/28/2024 10:13 AM EDT [facility] Total Bilirubin 0.2 0.0 - 1.4 mg/dL LAB CHEMISTRY METHOD 05/28/2024 10:[address] [facility] Blood Venous blood specimen / Unknown Venipuncture / Unknown 05/28/2024 5:02 AM EDT 05/28/2024 9:04 AM EDT us Matias Bowling MD LAB BLOOD ORDERABLES Final Resul t [facility] [address] [place] [address], [place] [phone] * (ABNORMAL) Complete blood count (05/28/2024 5:02 AM EDT) WBC 10.3 4.8 - 10.8 K/mcL LAB HEMETOLOGY METHOD 05/28/2024 9:[address] [facility] RBC 3.30(L) 3.80 - 4.80 M/mcL LAB HEMETOLOGY METHOD 05/28/2024 9:[address] [facility] Hemoglobin 8.7(L) 11.5 - 16.0 g/dL LAB HEMETOLOGY METHOD 05/28/2024 9:[address] [facility] Hematocrit 28.7(L) 35.0 - 47.0 % LAB HEMETOLOGY METHOD 05/28/2024 9:[address] [facility] MCV 87.0 79.0 - 98.0 FL LAB HEMETOLOGY METHOD 05/28/2024 9:[address] [facility] MCH 26.4(L) 27.0 - 32.0 pcg LAB HEMETOLOGY METHOD 05/28/2024 9:[address] [facility] MCHC 30.3(L) 32.0 - 37.0 g/dL LAB HEMETOLOGY METHOD 05/28/2024 9:26 AM EDT [facility] RDW 14.9 11.0 - 15.0 % LAB HEMETOLOGY METHOD 05/28/2024 9:26 AM EDT [facility] Platelets 281 130 - 400 K/mcL LAB HEMETOLOGY METHOD 05/28/2024 9:26 AM EDT [facility] MPV 10.2 7.0 - 11.0 FL LAB HEMETOLOGY METHOD 05/28/2024 9:26 AM EDT [facility] NRBC 0.0 <1.0 % LAB HEMETOLOGY METHOD 05/28/2024 9:26 AM EDT [facility] NRBC Absolute 0.00 <0.10 K/mcL LAB HEMETOLOGY METHOD 05/28/2024 9:26 AM EDT [facility] Blood Venous blood specimen / Unknown Venipuncture / Unknown 05/28/2024 5:02 AM EDT 05/28/2024 9:04 AM EDT us Matias Bowling MD LAB BLOOD ORDERABLES Final Resul t [facility] [address] [place] [address], documented in this encounter Visit Diagnoses Diagnosis Essential (primary) hypertension Unspecified essential hypertension documented in this encounter Additional Health Concerns Infection Onset Date Last Indicated Resolved Time C. difficile 05/29/2024 05/29/2024 06/22/2024 7:04 PM EDT C. difficile Rule-Out 05/30/2024 05/29/20242024 9:47 AM EDT documented as of this encounter Care Teams Narrow Gauge Engineer Relationship Specialty Start Date End Date Matias Bowling MD [address] [place] [phone] PCP - General Family Medicine 04/16/24 documented as of this encounter
--- OUTSIDE RECORDS SUMMARY | 2024-11-19 09:35 | XMS_ITS | Encounter Summary ---
Author Organization [employer] Address [address] [place] [address] 7t [place] [address] Care Team Providers Care Site Leader Name Role Phone Ethel Chase DO Primary Care Provider Vaishnavi Laird PharmD Unavailable [phone] Reason for Visit * Reason Comments Med Refill Encounter Details Date Type Department Care Team ([facility] Contact Info) Description 10/25/2022 Refill [facility] MED & PEDS [address] [place] [address] Eun Ray MD [address] [place], [place] [phone] Other chronic pain Social History Tobacco Use [...] Upcoming Encounters Date Type Department Care Team ([facility] Contact Info) Description 12/01/2024 9:00 AM EDT Clinical Support [facility] MEDICINE [address] [place], [place] [phone] Suad Wilson RN 12/28/2024 9:30 AM EST Medication Management [facility] MEDICINE [address] [place] [address] Vaishnavi Laird PharmD [address] [place] [address] documented as of this encounter Visit Diagnoses Diagnosis Other chronic pain documented in this encounter Additional Health Concerns Assessment Noted Time PHQ-9 Depression Total Score: 0 02/08/20 10:43 AM EST documented as of this encounter Care Teams Site Leader Relationship Specialty Start Date End Date Ethel Chase DO [address] [place] [address] PCP - General Family Medicine 10/12/13 Viashnavi Laird PharmD [address] [place] [address] Pharmacist Internal Medicine 02/07/23 [id number] 06/11/24 documented as of this encounter
--- OUTSIDE RECORDS SUMMARY | 2024-11-19 09:35 | XMS_ITS | Clinical Summary ---
Author Organization [address] Address [address] [place] [address] Phone Care Team Providers Care Monogram And Letter Paster Name Role Phone Matias Bowling MD Primary Care Provider [phone] Social History Tobacco Use Types Packs/Day Years [...] 12/29/2005 Zoster Vaccines (1 of 2) 12/29/2005 Depression Screening 02/26/2024 Cholesterol Screening (Lipid Panel) 04/16/2024 Falls Risk Assessment 04/16/2024 Hepatitis C Screening 04/16/2024 Medicare Annual Wellness Visit 04/16/2024 Osteoporosis Screening (Bone Density Screening) 04/16/2024 Social Influencers of Health Screening 04/16/2024 COVID-19 Vaccine ( season) 2024 Influenza Vaccine (#1) 2024 Colorectal Cancer Screening: Stool Based Tests [...] Routine 05/29/2024 1:50 PM EDT Diarrhea, unspecified from Last 3 Months or Most Recently Relevant to Health Maintenance Results * (ABNORMAL) Comprehensive metabolic panel (06/04/2024 5:45 AM EDT) Sodium 139 133 - 145 mmol/L LAB CHEMISTRY METHOD 06/04/2024 11:53 AM [facility] Potassium 4.5 3.5 - 5.5 mmol/L LAB CHEMISTRY METHOD 06/04/2024 11:53 AM [facility] Chloride 102 96 - 110 mmol/L LAB CHEMISTRY METHOD 06/04/2024 11:53 AM [facility] CO2 29 21 - 32 mmol/L LAB CHEMISTRY METHOD 06/04/2024 11:53 AM [facility] Anion Gap 8 3 - 11 LAB CHEMISTRY METHOD 06/04/2024 11:53 AM [facility] Glucose 159(H) 70 - 100 mg/dL LAB CHEMISTRY METHOD 06/04/2024 11:53 AM [facility] BUN 11 5 - 25 mg/dL LAB CHEMISTRY METHOD 06/04/2024 11:53 AM [facility] Creatinine 1.11(H) 0.50 - 1.10 mg/dL LAB CHEMISTRY METHOD 06/04/2024 11:53 AM [facility] eGFR 54(L) >=60 mL/min/1. 73m2 LAB CHEMISTRY METHOD 06/04/2024 11:53 AM [facility] Comment:Calculation based on the Chronic Kidney Disease Epidemiology Collaboration (CKD-EPI) equation refit without adjustment for race. BUN/Creatinine Ratio 9.9 LAB CHEMISTRY METHOD 06/04/2024 11:53 AM [facility] Calcium 9.0 8.5 - 10.5 mg/dL LAB CHEMISTRY METHOD 06/04/2024 11:53 AM [facility] AST (SGOT) 16 10 - 42 unit/L LAB CHEMISTRY METHOD 06/04/2024 11:53 AM [facility] ALT (SGPT) 17 10 - 60 unit/L LAB CHEMISTRY METHOD 06/04/2024 11:53 AM [facility] Alkaline Phosphatase 144(H) 42 - 121 unit/L LAB CHEMISTRY METHOD 06/04/2024 11:53 AM [facility] Total Protein 6.7 6.0 - 8.0 g/dL LAB CHEMISTRY METHOD 06/04/2024 11:53 AM [facility] Albumin 3.2 3.2 - 5.0 g/dL LAB CHEMISTRY METHOD 06/04/2024 11:53 AM [facility] Total Bilirubin 0.2 0.0 - 1.4 mg/dL LAB CHEMISTRY METHOD 06/04/2024 11:53 AM [facility] Blood Venous blood specimen / Unknown Venipuncture / Unknown 06/04/2024 5:45 AM EDT 06/04/2024 11:02 AM EDT Matias Bowling MD LAB BLOOD ORDERABLES Final Resul t Performing Organization Address City/[facility]/ZIP Co de Phone Number [facility] [address] [place] [address], [place] [phone] * Occult blood stool, guaiac (05/29/2024 1:50 PM EDT) Occult Blood, Stool #1 Negative Negative 05/30/2024 9:30 AM EDT [facility] Stool Rectum structure / Unknown Non-blood Collection / Unknown 05/29/2024 1:50 PM EDT 05/30/2024 8:36 AM EDT Matias Bowling MD LAB BODY FLUIDS AND STOOLS ORDER MARGARET Final Result Performing Organization Address City/[facility]/ZIP Co de Phone Number [facility] [address] [place] [address], [place] [phone] from Last 3 Months or Most Recently Relevant to Health Maintenance Insurance [facility] MED[facility] Member Subscriber Plan / Payer (Ef fective 2022-Present) Name:Trish Hunter Relation to Subscriber:Self Name:Trish Hunter Payer ID:[id number] Group ID:[id number] Type:Not on file Address: [place] [address] [address] [place] [id number] Care Teams Monogram And Letter Paster Relationship Specialty Start Date End Date Matias Bowling MD [address] [place] [phone] PCP - General Family Medicine 04/16/24
--- OUTSIDE RECORDS SUMMARY | 2024-11-19 09:35 | XMS_ITS | Encounter Summary ---
Author Organization [facility] Address [address] [place] [phone] Care Team Providers Care Self Contained Behavior Unit Teacher Name Role Phone Matias Bowling MD Primary Care Provider [phone] Encounter Details Date Type Department Care Team (Late st Contact Info) Description 06/10/2024 Lab Requisition [facility] - Main Lab [address] [facility] [place] [address] Matias Bowling MD 38 [facility] 204 [facility] [phone] Essential (primary) hypertension Social History [...] documented as of this encounter Care Teams Self Contained Behavior Unit Teacher Relationship Specialty Start Date End Date Matias Bowling MD 38 [facility] 204 [place] [address] PCP - General Family Medicine 04/16/24 documented as of this encounter
--- OUTSIDE RECORDS SUMMARY | 2024-11-19 09:35 | XMS_ITS | Encounter Summary ---
Author Organization [employer] Address [address] [place] [address] 7t [place] [address] Care Team Providers Care Fruit Tester Name Role Phone Ethel Chase DO Primary Care Provider [phone] Vaishnavi Laird PharmD Unavailable [phone] Reason for Visit * Reason Onset Date Comments Nurse Triage 09/14/2024 Encounter Details Date Type Department Care Team ([facility] st Contact Info) Description 09/14/2024 Telephone [facility] MEDICINE [address] [place] [address] Ethel Chase DO [address] [place] [address] Nurse Triage Social History Tobacco Use Types [...] PM EDT Triage call to Milena from [place] [address] Home care. Milena wanted to report Pt BP'S have been higher. Ptis asymptomatic. BP today left arm was 148/96 and right arm 145/96. Pt is taking daily imdur 30mg as prescribed. Pt has a scheduled apt 09/17/24 to address high BP. Pt is also asking about referral toPT. Glass Unloading Equipment Tender advised that this information would be forwarded [...] caller accepted this outcome. Contact Milena with [address] care at [phone] documented in this encounter Plan of Treatment Upcoming Encounters Date Type Department Care Team (Late st Contact Info) Description 12/01/2024 9:00 AM EDT Clinical Support [facility] MEDICINE [address] [place] [address] Suad Wilson, RN 12/28/2024 9:30 AM EST Medication Management [facility] MEDICINE [address] [place] [address] Vaishnavi Laird, Zana [address] [place] [address] documented as of this encounter Goals Goal [...] documented as of this encounter Care Teams Fruit Tester Relationship Specialty Start Date End Date Ethel Chase DO [address] [place] [address] PCP - General Family Medicine 10/12/13 Vaishnavi Laird, PharmRina [address] [place] [address] Pharmacist Internal Medicine 02/07/23 [id number] 06/11/24 documented as of this encounter
--- OUTSIDE RECORDS SUMMARY | 2024-11-19 09:35 | XMS_ITS | Encounter Summary ---
Author Organization [employer] Address [address] [place] [address] [address]t h Floor [place] [id number] Care Team Providers Care Tablet Machine Operator Name Role Phone ManuelEthel perry Primary Care Provider [phone] Vaishnavi Laird PharmD Unavailable [phone] Reason for Visit * Reason Comments Med Refill Encounter Details Date Type Department Care Team ([facility] st Contact Info) Description 02/02/[address] [facility] MEDICINE [address] [place] [address] Sadie Rivera, ANP [address] [place] [address] Type 2 diabetes mellitus with other specified complication, unspecified whether correction insulin use ([facility]) Social History Tobacco Use Types [...] Description 12/01/2024 9:00 AM EDT Clinical Support [address] [address] Suad Wilson, RN 12/28/2024 9:30 AM EST Medication Management [address] [address] Vaishnavi Laird PharmD [address] [place] [address] documented as of this encounter Visit Diagnoses Diagnosis Type 2 diabetes mellitus with other specified complication, unspecified whether termite helper insulin use ([facility]) documented in this encounter Additional Health Concerns Assessment Noted Time PHQ-9 Depression Total Score: 0 02/08/20 22 10:43 AM EST documented as of this encounter Care Teams Tablet Machine Operator Relationship Specialty Start Date End Date Ethel Chase DO [address] [place] [address] PCP - General Family Medicine 10/12/13 Vaishnavi Laird PharmD [address] [place] [address] Pharmacist Internal Medicine 02/07/23 [id number] 06/11/24 documented as of this encounter
--- OUTSIDE RECORDS SUMMARY | 2024-11-19 09:36 | XMS_ITS | Continuity of Care Document ---
Author Name Danilo Contreras Address [address] [place] [address] Organization Unknown Address [address] [place] [address] Medications No known medications Problems No known problems
--- OUTSIDE RECORDS SUMMARY | 2024-11-19 09:36 | XMS_ITS | Encounter Summary ---
Author Organization [email or web address] Address [address] [place] [address] 7t [place] [address] Care Team Providers Care Mechanical Assembler Name Role Phone Ethel Chase DO Primary Care Provider [phone] Vaishnavi Laird PharmD Unavailable [phone] Reason for Visit * Reason Comments Med Refill Encounter Details Date Type Department Care Team ([facility] st Contact Info) Description 04/16/2024 Refill [facility] [address] [place] [address] Ethel Chase DO [address] [place] [address] Social History Tobacco Use Types Packs/Day Years [...] Description 12/01/2024 9:00 AM EDT Clinical Support [facility] [address] [place] [address] Suad Wilson RN 12/28/2024 9:30 AM EST Medication Management [address] [address] PuiaVaishnavi, PharmD [address] [place] [address] documented as of this encounter Goals Goal [...] as of this encounter Care Teams Mechanical Assembler Relationship Specialty Start Date End Date Ethel Chase DO [address] [place] [address] PCP - General Family Medicine 8/18/14 Vaishnavi Laird, Zana [address] [place] [address] Pharmacist Internal Medicine 02/07/23 [id number] 06/11/24 documented as of this encounter
--- OUTSIDE RECORDS SUMMARY | 2024-11-19 09:36 | XMS_ITS | Encounter Summary ---
Author Organization [employer] Address [address] [place] [address] 7t [place] [address] Care Team Providers Care Cargo Mate Name Role Phone Ethel Chase DO Primary Care Provider Vaishnavi Laird PharmD Unavailable [phone] Reason for Visit * Reason Comments Med Refill Encounter Details Date Type Department Care Team ([facility] st Contact Info) Description 02/07/2022 Refill [facility] [address] [place] [address] Ethel Chase DO [address] [place] [address] Diverticular disease (Primary Dx) Social History Tobacco [...] but did send cipro and metro to [facility] requested. * Telephone Encounter - Susan Guillaume RN - 02/09/2022 3:31 PM EST TC placed to pt [phone] scan showed mild diverticulitis. Pt [...] is requesting medications to be sent to [facility] on [facility] [employer] in [facility] she cannot get to [facility] pharmacy before they close. RN will [...] scan results are back yet. RN checked [employer] system and results not yet available. CT was ordered STAT. RN called [facility] radiology who reports they do not have a mail reader on site or Saturday and RN would have to call [facility] at [phone] and speak to [employer] to request results to be read. RN called [phone] however phone rang continuously without an automated recording w/ options ora VM. RN returned call to [facility] to inform them no one answered at [facility] and the phone just kept ringing. [facility] confirmed the number is correct and reports they will send a message to [facility] to ask them to interpret the CT scan. RN will check before end of the day for interpretation report. * Telephone Encounter - Arcelia Wylie - 02/08/2022 2:07 PM EST Tc from [facility] requesting lab ordered be refaxed, life underwriter refaxed to [phone] * Telephone Encounter - Ethel Chase DO - 02/07/2022 3:51 PM EST Rx already sent. documented in this encounter Plan of Treatment Upcoming Encounters Date Type Department Care Team (Late st Contact Info) Description 12/01/2024 9:00 AM EDT Clinical Support [facility] [address] [place] [address] Suad Wilson RN 12/28/2024 9:30 AM EST Medication Management [facility] [address] [place] [address] Vaishnavi Liard, PharmD [address] [place] [address] documented as of this encounter Visit Diagnoses Diagnosis Diverticular disease- Primary Diverticulosis of colon (without mention of hemorrhage) documented in this encounter Additional Health Concerns Assessment Noted Time PHQ-9 Depression Total Score: 0 02/08/20 10:43 AM EST documented as of this encounter Care Teams Cargo Mate Relationship Specialty Start Date End Date Ethel Chase DO [address] [place] [address] PCP - General Family Medicine 10/12/13 Kisha Lairdsa, PharmD [address] [place] [address] Pharmacist Internal Medicine 02/07/23 [id number] 06/11/24 documented as of this encounter
--- OUTSIDE RECORDS SUMMARY | 2024-11-19 09:36 | XMS_ITS | Encounter Summary ---
Author Organization [facility] Address [address] [place] [address] Care Team Providers Care Material Flow Engineer Name Role Phone Matias Bowling MD Primary Care Provider Encounter Details Date Type Department Care Team (Late st Contact Info) Description 04/30/2024 Lab Requisition [facility] - Main Lab [address] [place] [address] Matias Bowling MD 38 [facility] 204 [place], [address] Essential (primary) hypertension Social History Tobacco [...] LAB CHEMISTRY METHOD 05/01/2024 12:26 PM EST [facility] Potassium 4.7 3.5 - 5.5 mmol/L LAB CHEMISTRY METHOD 05/01/2024 12:26 PM EST [facility] Chloride 110 96 - 110 mmol/L LAB CHEMISTRY METHOD 05/01/2024 12:26 PM [facility] CO2 21 21 - 32 mmol/L LAB CHEMISTRY METHOD 05/01/2024 12:26 PM [facility] Anion Gap 11 3 - 11 LAB CHEMISTRY METHOD 05/01/2024 12:26 PM [facility] Glucose 138(H) 70 - 100 mg/dL LAB CHEMISTRY METHOD 05/01/2024 12:26 PM [facility] BUN 18 5 - 25 mg/dL LAB CHEMISTRY METHOD 05/01/2024 12:26 PM [facility] Creatinine 1.07 0.50 - 1.10 mg/dL LAB CHEMISTRY METHOD 05/01/2024 12:26 PM [facility] eGFR 57(L) >=60 mL/min/1. 73m2 LAB CHEMISTRY METHOD 05/01/2024 12:26 PM [facility] Comment:Calculation based on the Chronic Kidney Disease Epidemiology Collaboration (CKD-EPI) equation refit without adjustment for race. BUN/Creatinine Ratio 16.8 LAB CHEMISTRY METHOD 05/01/2024 12:26 PM [facility] Calcium 9.3 8.5 - 10.5 mg/dL LAB CHEMISTRY METHOD 05/01/2024 12:26 PM [facility] Blood Venous blood specimen / Unknown Venipuncture / Unknown 05/01/2024 4:57 AM EST 05/01/2024 11:00 AM EST us Matias Bowling MD LAB BLOOD ORDERABLES Final Resul t [facility] [address] [place] [address], * (ABNORMAL) Complete blood count (05/01/2024 4:57 AM EST) WBC 9.9 4.8 - 10.8 K/mcL LAB HEMETOLOGY METHOD 05/01/2024 11:34 AM [facility] RBC 3.50(L) 3.80 - 4.80 M/mcL LAB HEMETOLOGY METHOD 05/01/2024 11:34 AM [facility] Hemoglobin 9.3(L) 11.5 - 16.0 g/dL LAB HEMETOLOGY METHOD 05/01/2024 11:34 AM [facility] Hematocrit 31.7(L) 35.0 - 47.0 % LAB HEMETOLOGY METHOD 05/01/2024 11:34 AM [facility] MCV 90.3 79.0 - 98.0 FL LAB HEMETOLOGY METHOD 05/01/2024 11:34 AM [facility] MCH 26.5(L) 27.0 - 32.0 pcg LAB HEMETOLOGY METHOD 05/01/2024 11:34 AM [facility] MCHC 29.3(L) 32.0 - 37.0 g/dL LAB HEMETOLOGY METHOD 05/01/2024 11:34 AM [facility] RDW 14.7 11.0 - 15.0 % LAB HEMETOLOGY METHOD 05/01/2024 11:34 AM [facility] Platelets 312 130 - 400 K/mcL LAB HEMETOLOGY METHOD 05/01/2024 11:34 AM [facility] MPV 10.3 7.0 - 11.0 FL LAB HEMETOLOGY METHOD 05/01/2024 11:34 AM [facility] NRBC 0.0 <1.0 % LAB HEMETOLOGY METHOD 05/01/2024 11:34 AM [facility] NRBC Absolute 0.00 <0.10 K/mcL LAB HEMETOLOGY METHOD 05/01/2024 11:34 AM [facility] Blood Venous blood specimen / Unknown Venipuncture / Unknown 05/01/2024 4:57 AM EST 05/01/2024 11:00 AM EST us Matias Bowling MD LAB BLOOD ORDERABLES Final Resul t [facility] [address] [place] [address], documented in this encounter Visit Diagnoses Diagnosis Essential (primary) hypertension Unspecified essential hypertension documented in this encounter Additional Health Concerns Infection Onset Date Last Indicated Resolved Time Gastrointestinal Rule-Out 04/28/2024 04/27/2024 7:06 PM EDT C. difficile 05/29/2024 05/29/2024 06/22/2024 7:04 PM EDT C. difficile Rule-Out 05/30/2024 05/29/20242024 9:47 AM EDT documented as of this encounter Care Teams Material Flow Engineer Relationship Specialty Start Date End Date Matias Bowling MD [address] [place] [phone] PCP - General Family Medicine 04/16/24 documented as of this encounter
--- OUTSIDE RECORDS SUMMARY | 2024-11-19 09:36 | XMS_ITS | Encounter Summary ---
Author Organization [facility] Address [address] [place] [address] Care Team Providers Care Rayon Coner Name Role Phone Matias Bowling MD Primary Care Provider [phone] Encounter Details Date Type Department Care Team (Late st Contact Info) Description 04/28/2024 Lab Requisition [facility] - Main Lab 299 [facility] [place] [address] Matias Bowling MD 38 [facility] 204 [facility] [address] Diarrhea, unspecified Social History Tobacco [...] documented as of this encounter Care Teams Rayon Coner Relationship Specialty Start Date End Date Matias Bowling MD 38 [facility] 204 [place] [address] PCP - General Family Medicine 04/16/24 documented as of this encounter
--- OUTSIDE RECORDS SUMMARY | 2024-11-19 09:36 | XMS_ITS | Encounter Summary ---
Author Organization [facility] Address [address] [place] [address] Care Team Providers Care Reference Test Clerk Name Role Phone Matias Bowling MD Primary Care Provider [phone] Encounter Details Date Type Department Care Team (Late st Contact Info) Description 04/29/2024 Lab Requisition [facility] - Main Lab [address] [place] [address] Matias Bowling MD 38 [facility] 204 [place], [address] Hyperlipidemia, unspecified; 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 classified [...] LAB CHEMISTRY METHOD 04/29/2024 2:49 PM EST [facility] Potassium 4.5 3.5 - 5.5 mmol/L LAB CHEMISTRY METHOD 04/29/2024 2:49 PM [facility] Chloride 111(H) 96 - 110 mmol/L LAB CHEMISTRY METHOD 04/29/2024 2:49 PM [facility] CO2 23 21 - 32 mmol/L LAB CHEMISTRY METHOD 04/29/2024 2:49 PM [facility] Anion Gap 8 3 - 11 LAB CHEMISTRY METHOD 04/29/2024 2:49 PM [facility] Glucose 118(H) 70 - 100 mg/dL LAB CHEMISTRY METHOD 04/29/2024 2:49 PM [facility] BUN 18 5 - 25 mg/dL LAB CHEMISTRY METHOD 04/29/2024 2:49 PM [facility] Creatinine 0.94 0.50 - 1.10 mg/dL LAB CHEMISTRY METHOD 04/29/2024 2:49 PM [facility] eGFR 66 >=60 mL/min/1. 73m2 LAB CHEMISTRY METHOD 04/29/2024 2:49 PM [facility] Comment:Calculation based on the Chronic Kidney Disease Epidemiology Collaboration (CKD-EPI) equation refit without adjustment for race. BUN/Creatinine Ratio 19.1 LAB CHEMISTRY METHOD 04/29/2024 2:49 PM [facility] Calcium 9.2 8.5 - 10.5 mg/dL LAB CHEMISTRY METHOD 04/29/2024 2:49 PM [facility] AST (SGOT) 21 10 - 42 unit/L LAB CHEMISTRY METHOD 04/29/2024 2:49 PM [facility] ALT (SGPT) 24 10 - 60 unit/L LAB CHEMISTRY METHOD 04/29/2024 2:49 PM [facility] Alkaline Phosphatase 170(H) 42 - 121 unit/L LAB CHEMISTRY METHOD 04/29/2024 2:49 PM [facility] Total Protein 6.9 6.0 - 8.0 g/dL LAB CHEMISTRY METHOD 04/29/2024 2:49 PM EST [facility] Albumin 3.2 3.2 - 5.0 g/dL LAB CHEMISTRY METHOD 04/29/2024 2:49 PM [facility] Total Bilirubin 0.3 0.0 - 1.4 mg/dL LAB CHEMISTRY METHOD 04/29/2024 2:49 PM [facility] Blood Venous blood specimen / Unknown Venipuncture / Unknown 04/29/2024 6:35 AM EST 04/29/2024 10:01 AM EST us Matias Bowling MD LAB BLOOD ORDERABLES Final Resul t [facility] [address] [place] [address], [place] [phone] * (ABNORMAL) Complete blood count (04/29/2024 6:35 AM EST) WBC 9.6 4.8 - 10.8 K/mcL LAB HEMETOLOGY METHOD 04/29/2024 11:28 AM [facility] RBC 3.70(L) 3.80 - 4.80 M/mcL LAB HEMETOLOGY METHOD 04/29/2024 11:28 AM [facility] Hemoglobin 9.9(L) 11.5 - 16.0 g/dL LAB HEMETOLOGY METHOD 04/29/2024 11:28 AM [facility] Hematocrit 32.0(L) 35.0 - 47.0 % LAB HEMETOLOGY METHOD 04/29/2024 11:28 AM [facility] MCV 87.0 79.0 - 98.0 FL LAB HEMETOLOGY METHOD 04/29/2024 11:28 AM [facility] MCH 26.9(L) 27.0 - 32.0 pcg LAB HEMETOLOGY METHOD 04/29/2024 11:28 AM [facility] MCHC 30.9(L) 32.0 - 37.0 g/dL LAB HEMETOLOGY METHOD 04/29/2024 11:28 AM EST [facility] RDW 14.6 11.0 - 15.0 % LAB HEMETOLOGY METHOD 04/29/2024 11:28 AM [facility] Platelets 358 130 - 400 K/mcL LAB HEMETOLOGY METHOD 04/29/2024 11:28 AM [facility] MPV 10.0 7.0 - 11.0 FL LAB HEMETOLOGY METHOD 04/29/2024 11:28 AM [facility] NRBC 0.0 <1.0 % LAB HEMETOLOGY METHOD 04/29/2024 11:28 AM [facility] NRBC Absolute 0.00 <0.10 K/mcL LAB HEMETOLOGY METHOD 04/29/2024 11:28 AM [facility] Blood Venous blood specimen / Unknown Venipuncture / Unknown 04/29/2024 6:35 AM EST 04/29/2024 10:01 AM EST us Matias Bowling MD LAB BLOOD ORDERABLES Final Resul t [facility] [address] [place] [address], documented in this encounter Visit Diagnoses Diagnosis Hyperlipidemia, unspecified 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 classified elsewhere (CMS/HCC V24, CMS/HCC V28) documented in this encounter Additional Health Concerns Infection Onset Date Last Indicated Resolved Time Gastrointestinal Rule-Out 04/28/2024 04/27/2024 7:06 PM EDT C. difficile 05/29/2024 05/29/2024 06/22/2024 7:04 PM EDT C. difficile Rule-Out 05/30/2024 05/29/20242024 9:47 AM EDT documented as of this encounter Care Teams Reference Test Clerk Relationship Specialty Start Date End Date Matias Bowling MD [address] [place] [address] PCP - General Family Medicine 04/16/24 documented as of this encounter
--- OUTSIDE RECORDS SUMMARY | 2024-11-19 09:36 | XMS_ITS | Encounter Summary ---
Author Organization [employer] Address [address] [place] [address] 7t [place] [address] Care Team Providers Care Tinware Lithograph Press Operator Name Role Phone Ethel Chase Primary Care Provider [phone] Vaishnavi Laird PharmD Unavailable Encounter Details Date Type Department Care Team (Late Contact Info) Description 02/09/2022 Orders Only [facility] [address] [place] [address] Sadie Rivera, ANP [address] [place] [address] Social History Tobacco Use Types Packs/Day Years [...] Description 12/01/2024 9:00 AM EDT Clinical Support [address] [address] Suad Wilson, RN 12/28/2024 9:30 AM EST Medication Management [address] [address] Vaishnavi Laird PharmD [address] [place] [address] documented as of this encounter Visit Diagnoses Not on filedocumented in this encounter Additional Health Concerns Assessment Noted Time PHQ-9 Depression Total Score: 0 02/08/20 22 10:43 AM EST documented as of this encounter Care Teams Tinware Lithograph Press Operator Relationship Specialty Start Date End Date Ethel Chase DO [address] [place] [address] PCP - General Family Medicine 10/12/13 Vaishnavi Laird PharmD [address] [place] [address] Pharmacist Internal Medicine 02/07/23 [id number] 06/11/24 documented as of this encounter
--- OUTSIDE RECORDS SUMMARY | 2024-11-19 09:36 | XMS_ITS | Encounter Summary ---
Author Organization [facility] Address [address] [place] [address] Care Team Providers Care Maintenance Worker House Trailer Name Role Phone Matias Bowling MD Primary Care Provider [phone] Encounter Details Date Type Department Care Team (Late st Contact Info) Description 04/29/2024 Lab Requisition [facility] - Main Lab 299 [facility] [place] [address] Matias Bowling MD 38 [facility] 204 [facility] [address] Essential (primary) hypertension [...] documented as of this encounter Care Teams Maintenance Worker House Trailer Relationship Specialty Start Date End Date Matias Bowling MD 38 [facility] 204 [place] [phone] PCP - General Family Medicine 04/16/24 documented as of this encounter
--- OUTSIDE RECORDS SUMMARY | 2024-11-19 09:36 | XMS_ITS | Encounter Summary ---
Author Organization [employer] Address [address] [place] [address] 7t [place] [address] Care Team Providers Care Bordereau Clerk Name Role Phone Ethel Chase DO Primary Care Provider [phone] Vaishnavi Laird PharmD Unavailable [phone] Reason for Visit * Reason Onset Date Comments Appointment Request 03/02/2024 Encounter Details Date Type Department Care Team ([facility] st Contact Info) Description 03/02/2024 Telephone [facility] [address] [place] [address] Ethel Chase DO [address] [place] [address] Appointment Request Social History Tobacco Use Types [...] would like to reschedule. Please contact pt: [phone] (Chilean) documented in this encounter Plan of Treatment Upcoming Encounters Date Type Department Care Team (Late st Contact Info) Description 12/01/2024 9:00 AM EDT Clinical Support [facility] [address] [place] [address] Suad Wilson, RN 12/28/2024 9:30 AM EST Medication Management [facility] [address] [place] [address] Vaishnavi Laird PharmD [address] [place] [address] documented as of this encounter Goals Goal Patient Goal Type Associated Problems Recent Progress Patient-Stated? Author Hemoglobin A1c < 7 Result Component 8.6( 5 12:47 PM EDT) No Vaishnavi Laird, PharmRina Record your blood sugar as directed Result Component No Vaishnavi Laird PharmD documented as of this encounter Visit Diagnoses Not on filedocumented in this encounter Additional Health Concerns Assessment Noted Time PHQ-9 Depression Total Score: 8 10/18/19 24 11:35 AM EDT documented as of this encounter Care Teams Bordereau Clerk Relationship Specialty Start Date End Date Ethel Chase DO [address] [place] [address] PCP - General Family Medicine 10/12/13 Vaishnavi Laird PharmD [address] [place] [address] Pharmacist Internal Medicine 02/07/23 [id number] 06/11/24 documented as of this encounter
== END 2024-11-19 09:30 | disposition home or self-care (01) ==
LOC: HO.HOS 08:54
PROVIDERS: Visit Provider Physician Assistant
DX: M97.12XA Periprosthetic fracture around internal prosthetic left knee joint, initial encounter (principal)
CPT/HCPCS: 99213; G2211

== ENCOUNTER → 2024-11-19 09:01 | Outpatient (BNV) | payer OTHER, SELFPAY | PROVIDERS: Visit Provider Radiology Diagnostic Radiology | DX: Z96.652 Presence of left artificial knee joint (principal); M25.562 Pain in left knee | CPT/HCPCS: 73562 ==

== ENCOUNTER 2024-11-19 11:09 | Outpatient (REF) | payer OTHER, SELFPAY ==
--- NOTE | ~2024-11-19 | XR_ITS ---
EXAMINATION: XR KNEE, LEFT CLINICAL INFORMATION: M25.562 - Pain in left knee COMPARISON: 09/23/2024, 08/26/2024, dating back to 03/16/2024. TECHNIQUE: AP view bilateral knees standing, lateral and patellofemoral views left knee. FINDINGS: Right Knee: Normal imaging appearance. Preserved joint spaces. Normal soft tissues. 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 Femoral, and tibial components appear well seated in anatomic alignment. No acute periprosthetic fracture or lucency. There has been patellar resurfacing. Similar tiny bone fragments medial and posterior to the knee joint. An oblique distal femoral metadiaphyseal fracture has healed. Previously described fracture of the posterior medial tibial metaphysis is not well seen on this examination. Normal patellar alignment. There is a small joint effusion present. No soft tissue abnormalities. XR/XR knee LT 3V IMPRESSION: 1. Revision arthroplasty left knee without definite complication. 2. Oblique distal femoral metadiaphyseal fracture appears essentially healed. 3. Small joint effusion. Electronically signed by: Jony Herrera MD 11/19/2024 09:19 AM EDT
--- OUTSIDE RECORDS SUMMARY | 2024-11-20 13:01 | XMS_ITS | Encounter Summary ---
Author Organization [facility] Address [address] [place] [address] Care Team Providers Care Help Desk Coordinator Name Role Phone Matias Bowling MD Primary Care Provider [phone] Encounter Details Date Type Department Care Team (Late st Contact Info) Description 04/30/2024 Lab Requisition [facility] - Main Lab [address] [place] [address] Matias Bowling MD 38 [facility] [address] [place], [address] Essential (primary) hypertension Social History Tobacco [...] mmol/L LAB CHEMISTRY METHOD 05/01/2024 12:26 PM [facility] CO2 21 21 - 32 mmol/L LAB CHEMISTRY METHOD 05/01/2024 12:26 PM [facility] Anion Gap 11 3 - 11 LAB CHEMISTRY METHOD 05/01/2024 12:26 PM [facility] Glucose 138(H) 70 - 100 mg/dL LAB CHEMISTRY METHOD 05/01/2024 12:26 PM [facility] BUN 18 5 - 25 mg/dL LAB CHEMISTRY METHOD 05/01/2024 12:26 PM [facility] Creatinine 1.07 0.50 - 1.10 mg/dL LAB CHEMISTRY METHOD 05/01/2024 12:26 PM [facility] eGFR 57(L) >=60 mL/min/1. 73m2 LAB CHEMISTRY METHOD 05/01/2024 12:26 PM [facility] Comment:Calculation based on the Chronic Kidney Disease Epidemiology Collaboration (CKD-EPI) equation refit without adjustment for race. BUN/Creatinine Ratio 16.8 LAB CHEMISTRY METHOD 05/01/2024 12:26 PM [facility] Calcium 9.3 8.5 - 10.5 mg/dL LAB CHEMISTRY METHOD 05/01/2024 12:26 PM [facility] Blood Venous blood specimen / Unknown Venipuncture / Unknown 05/01/2024 4:57 AM EST 05/01/2024 11:00 AM EST us Matias Bowling MD LAB BLOOD ORDERABLES Final Resul t [facility] [address] [place] [address], * (ABNORMAL) Complete blood count (05/01/2024 4:57 AM EST) WBC 9.9 4.8 - 10.8 K/mcL LAB HEMETOLOGY METHOD 05/01/2024 11:34 AM [facility] RBC 3.50(L) 3.80 - 4.80 M/mcL LAB HEMETOLOGY METHOD 05/01/2024 11:34 AM [facility] Hemoglobin 9.3(L) 11.5 - 16.0 g/dL LAB HEMETOLOGY METHOD 05/01/2024 11:34 AM [facility] Hematocrit 31.7(L) 35.0 - 47.0 % LAB HEMETOLOGY METHOD 05/01/2024 11:34 AM [facility] MCV 90.3 79.0 - 98.0 FL LAB HEMETOLOGY METHOD 05/01/2024 11:34 AM [facility] MCH 26.5(L) 27.0 - 32.0 pcg LAB HEMETOLOGY METHOD 05/01/2024 11:34 AM [facility] MCHC 29.3(L) 32.0 - 37.0 g/dL LAB HEMETOLOGY METHOD 05/01/2024 11:34 AM [facility] RDW 14.7 11.0 - 15.0 % LAB HEMETOLOGY METHOD 05/01/2024 11:34 AM [facility] Platelets 312 130 - 400 K/mcL LAB HEMETOLOGY METHOD 05/01/2024 11:34 AM [facility] MPV 10.3 7.0 - 11.0 FL LAB HEMETOLOGY METHOD 05/01/2024 11:34 AM [facility] NRBC 0.0 <1.0 % LAB HEMETOLOGY METHOD 05/01/2024 11:34 AM [facility] NRBC Absolute 0.00 <0.10 K/mcL LAB HEMETOLOGY METHOD 05/01/2024 11:34 AM [facility] Blood Venous blood specimen / Unknown Venipuncture / Unknown 05/01/2024 4:57 AM EST 05/01/2024 11:00 AM EST us Matias Bowling MD LAB BLOOD ORDERABLES Final Resul t [facility] [address] [place] [address], documented in this encounter Visit Diagnoses Diagnosis Essential (primary) hypertension Unspecified essential hypertension documented in this encounter Additional Health Concerns Infection Onset Date Last Indicated Resolved Time Gastrointestinal Rule-Out 04/28/2024 04/27/2024 7:06 PM EDT C. difficile 05/29/2024 05/29/2024 06/22/2024 7:04 PM EDT C. difficile Rule-Out 05/30/2024 05/29/20242024 9:47 AM EDT documented as of this encounter Care Teams Help Desk Coordinator Relationship Specialty Start Date End Date Matias Bowling MD [address] [place] [phone] PCP - General Family Medicine 04/16/24 documented as of this encounter
--- OUTSIDE RECORDS SUMMARY | 2024-11-20 13:01 | XMS_ITS | Encounter Summary ---
Author Organization [facility] Address [address] [place] [address] Care Team Providers Care Softlines Supervisor Name Role Phone Matias Bowling MD Primary Care Provider [phone] Encounter Details Date Type Department Care Team (Late st Contact Info) Description 04/23/2024 Lab Requisition [facility] - Main Lab [address] [place] [address] Matias Bowling MD 38 [facility] [address] [place], [address] Essential (primary) hypertension Social History Tobacco [...] LAB CHEMISTRY METHOD 04/23/2024 10:18 AM EST [facility] Potassium 4.4 3.5 - 5.5 mmol/L LAB CHEMISTRY METHOD 04/23/2024 10:18 AM EST [facility] Chloride 109 96 - 110 mmol/L LAB CHEMISTRY METHOD 04/23/2024 10:18 AM [facility] CO2 25 21 - 32 mmol/L LAB CHEMISTRY METHOD 04/23/2024 10:18 AM [facility] Anion Gap 9 3 - 11 LAB CHEMISTRY METHOD 04/23/2024 10:18 AM [facility] Glucose 114(H) 70 - 100 mg/dL LAB CHEMISTRY METHOD 04/23/2024 10:18 AM [facility] BUN 17 5 - 25 mg/dL LAB CHEMISTRY METHOD 04/23/2024 10:18 AM [facility] Creatinine 1.01 0.50 - 1.10 mg/dL LAB CHEMISTRY METHOD 04/23/2024 10:18 AM [facility] eGFR 61 >=60 mL/min/1. 73m2 LAB CHEMISTRY METHOD 04/23/2024 10:18 AM [facility] Comment:Calculation based on the Chronic Kidney Disease Epidemiology Collaboration (CKD-EPI) equation refit without adjustment for race. BUN/Creatinine Ratio 16.8 LAB CHEMISTRY METHOD 04/23/2024 10:18 AM [facility] Calcium 9.4 8.5 - 10.5 mg/dL LAB CHEMISTRY METHOD 04/23/2024 10:18 AM [facility] AST (SGOT) 18 10 - 42 unit/L LAB CHEMISTRY METHOD 04/23/2024 10:18 AM [facility] ALT (SGPT) 25 10 - 60 unit/L LAB CHEMISTRY METHOD 04/23/2024 10:18 AM [facility] Alkaline Phosphatase 165(H) 42 - 121 unit/L LAB CHEMISTRY METHOD 04/23/2024 10:18 AM [facility] Total Protein 7.0 6.0 - 8.0 g/dL LAB CHEMISTRY METHOD 04/23/2024 10:18 AM [facility] Albumin 3.3 3.2 - 5.0 g/dL LAB CHEMISTRY METHOD 04/23/2024 10:18 AM [facility] Total Bilirubin 0.4 0.0 - 1.4 mg/dL LAB CHEMISTRY METHOD 04/23/2024 10:18 AM [facility] Blood Venous blood specimen / Unknown Venipuncture / Unknown 04/23/2024 5:04 AM EST 04/23/2024 8:47 AM EST us Matias Bowling MD LAB BLOOD ORDERABLES Final Resul t [facility] [address] [place] [address], * (ABNORMAL) Complete blood count (04/23/2024 5:04 AM EST) WBC 8.9 4.8 - 10.8 K/mcL LAB HEMETOLOGY METHOD 04/23/2024 9:28 AM [facility] RBC 3.40(L) 3.80 - 4.80 M/mcL LAB HEMETOLOGY METHOD 04/23/2024 9:28 AM [facility] Hemoglobin 9.2(L) 11.5 - 16.0 g/dL LAB HEMETOLOGY METHOD 04/23/2024 9:28 AM [facility] Hematocrit 30.3(L) 35.0 - 47.0 % LAB HEMETOLOGY METHOD 04/23/2024 9:28 AM [facility] MCV 88.1 79.0 - 98.0 FL LAB HEMETOLOGY METHOD 04/23/2024 9:28 AM [facility] MCH 26.7(L) 27.0 - 32.0 pcg LAB HEMETOLOGY METHOD 04/23/2024 9:28 AM [facility] MCHC 30.4(L) 32.0 - 37.0 g/dL LAB HEMETOLOGY METHOD 04/23/2024 9:28 AM EST [facility] RDW 14.6 11.0 - 15.0 % LAB HEMETOLOGY METHOD 04/23/2024 9:28 AM [facility] Platelets 333 130 - 400 K/mcL LAB HEMETOLOGY METHOD 04/23/2024 9:28 AM [facility] MPV 9.8 7.0 - 11.0 FL LAB HEMETOLOGY METHOD 04/23/2024 9:28 AM [facility] NRBC 0.0 <1.0 % LAB HEMETOLOGY METHOD 04/23/2024 9:28 AM [facility] NRBC Absolute 0.00 <0.10 K/mcL LAB HEMETOLOGY METHOD 04/23/2024 9:28 AM [facility] Blood Venous blood specimen / Unknown Venipuncture / Unknown 04/23/2024 5:04 AM EST 04/23/2024 8:47 AM EST us Matias Bowling MD LAB BLOOD ORDERABLES Final Resul t [facility] [address] [place] [address], documented in this encounter Visit Diagnoses Diagnosis Essential (primary) hypertension Unspecified essential hypertension documented in this encounter Additional Health Concerns Infection Onset Date Last Indicated Resolved Time Gastrointestinal Rule-Out 04/28/2024 04/27/2024 7:06 PM EDT C. difficile 05/29/2024 05/29/2024 06/22/2024 7:04 PM EDT C. difficile Rule-Out 05/30/2024 05/29/20242024 9:47 AM EDT documented as of this encounter Care Teams Softlines Supervisor Relationship Specialty Start Date End Date Matias Bowling MD [address] [place] [phone] PCP - General Family Medicine 04/16/24 documented as of this encounter
--- OUTSIDE RECORDS SUMMARY | 2024-11-20 13:01 | XMS_ITS | Encounter Summary ---
Author Organization [facility] Address [address] [place] [address] Care Team Providers Care Hand Surgeon Name Role Phone Matias Bowling MD Primary Care Provider [phone] Encounter Details Date Type Department Care Team (Late st Contact Info) Description 04/28/2024 Lab Requisition [facility] - Main Lab [address] [facility] [place] [address] Matias Bowling MD 38 [facility] 204 [facility] [address] Diarrhea, unspecified Social History Tobacco Use [...] documented as of this encounter Care Teams Hand Surgeon Relationship Specialty Start Date End Date Matias Bowling MD 38 [facility] [address] [place] [address] PCP - General Family Medicine 04/16/24 documented as of this encounter
--- OUTSIDE RECORDS SUMMARY | 2024-11-20 13:01 | XMS_ITS | Encounter Summary ---
Author Organization [facility] Address [address] [place] [address] Care Team Providers Care Business Operations Coordinator Name Role Phone Matias Bowling MD Primary Care Provider [phone] Encounter Details Date Type Department Care Team (Late st Contact Info) Description 05/30/2024 Lab Requisition [facility] - Main Lab 299 [facility] [place] [address] Matias Bowling MD 38 [facility] 204 [place], [address] Diarrhea, unspecified Social History Tobacco Use [...] LAB MICROBIOLOGY METHOD 05/30/2024 11:16 AM EDT [facility] Comment: CRITICAL RESULT POSITIVE FOR TOXIN PRODUCING CLOSTRIDIOIDES DIFFICILE, NO ADDITIONAL TESTING IS NECESSARY. REPEAT SAMPLES SHOULD NOT BE SUBMITTED FOR TEST OF CURE. Stool Rectum structure / Unknown Non-blood Collection / Unknown 05/29/2024 1:50 PM EDT 05/30/2024 9:47 AM EDT Matias Bowling MD LAB MICROBIOLOGY - GENERAL ORDER MARGARET Final Result Performing Organization Address City/[facility]/ZIP Co de Phone Number [facility] [address] [place] [address], [place] [phone] * Occult blood stool, guaiac (05/29/2024 1:50 PM EDT) Occult Blood, Stool #1 Negative Negative 05/30/2024 9:30 AM EDT [facility] Stool Rectum structure / Unknown Non-blood Collection / Unknown 05/29/2024 1:50 PM EDT 05/30/2024 8:36 AM EDT Matias Bowling MD LAB BODY FLUIDS AND STOOLS ORDER MARGARET Final Result Performing Organization Address [facility]/ZIP Co de Phone Number [facility] [address] [place] [address], [place] [phone] * Ova and parasite examination (05/29/2024 1:50 PM EDT) Ova and Parasite No Ova or Parasite seen. 06/03/2024 10:02 AM EDT [facility] Stool Rectum structure / Unknown Non-blood Collection / Unknown 05/29/2024 1:50 PM EDT 05/30/2024 8:36 AM EDT Narrative [facility] - 06/03/2024 10:02 AM EDT Special test request required for Coccidia and Microsporidia. Matias Bowling MD LAB MICROBIOLOGY - GENERAL ORDER MARGARET Final Result Performing Organization Address [facility]/ZIP Co de Phone Number [facility] [address] [place] [address], [place] [phone] * Clostridium difficile toxin (05/29/2024 1:50 PM EDT) C difficile Toxins A+B, EIA 05/30/2024 9:47 AM EDT [facility] Comment:Refer to C. difficil e PCR assay for results. Stool Rectum structure / Unknown Non-blood Collection / Unknown 05/29/2024 1:50 PM EDT 05/30/2024 8:36 AM EDT Matias Bowling MD LAB MICROBIOLOGY - GENERAL ORDER MARGARET Final Result Performing Organization Address [facility] Co de Phone Number [facility] [address] [place] [address], [place] [phone] documented in this encounter Visit Diagnoses Diagnosis Diarrhea, unspecified documented in this encounter Additional Health Concerns Infection Onset Date Last Indicated Resolved Time C. difficile 05/29/2024 05/29/2024 06/22/2024 7:04 PM EDT C. difficile Rule-Out 05/30/2024 05/29/20242024 9:47 AM EDT documented as of this encounter Care Teams Business Operations Coordinator Relationship Specialty Start Date End Date Matias Bowling MD [address] [place] [address] [address] [place] [address] PCP - General Family Medicine 04/16/24 documented as of this encounter
--- OUTSIDE RECORDS SUMMARY | 2024-11-20 13:01 | XMS_ITS | Encounter Summary ---
Author Organization [facility] Address [address] [place] [address] Care Team Providers Care Chief Accountant Name Role Phone Matias Bowling MD Primary Care Provider [phone] Encounter Details Date Type Department Care Team (Late st Contact Info) Description 04/29/2024 Lab Requisition [facility] - Main Lab [address] [place] [address] Matias Bowling MD 38 [facility] [address] [place], [address] Hyperlipidemia, unspecified; 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 classified [...] LAB CHEMISTRY METHOD 04/29/2024 2:49 PM EST [facility] Potassium 4.5 3.5 - 5.5 mmol/L LAB CHEMISTRY METHOD 04/29/2024 2:49 PM [facility] Chloride 111(H) 96 - 110 mmol/L LAB CHEMISTRY METHOD 04/29/2024 2:49 PM [facility] CO2 23 21 - 32 mmol/L LAB CHEMISTRY METHOD 04/29/2024 2:49 PM [facility] Anion Gap 8 3 - 11 LAB CHEMISTRY METHOD 04/29/2024 2:49 PM [facility] Glucose 118(H) 70 - 100 mg/dL LAB CHEMISTRY METHOD 04/29/2024 2:49 PM [facility] BUN 18 5 - 25 mg/dL LAB CHEMISTRY METHOD 04/29/2024 2:49 PM [facility] Creatinine 0.94 0.50 - 1.10 mg/dL LAB CHEMISTRY METHOD 04/29/2024 2:49 PM [facility] eGFR 66 >=60 mL/min/1. 73m2 LAB CHEMISTRY METHOD 04/29/2024 2:49 PM [facility] Comment:Calculation based on the Chronic Kidney Disease Epidemiology Collaboration (CKD-EPI) equation refit without adjustment for race. BUN/Creatinine Ratio 19.1 LAB CHEMISTRY METHOD 04/29/2024 2:49 PM [facility] Calcium 9.2 8.5 - 10.5 mg/dL LAB CHEMISTRY METHOD 04/29/2024 2:49 PM [facility] AST (SGOT) 21 10 - 42 unit/L LAB CHEMISTRY METHOD 04/29/2024 2:49 PM [facility] ALT (SGPT) 24 10 - 60 unit/L LAB CHEMISTRY METHOD 04/29/2024 2:49 PM [facility] Alkaline Phosphatase 170(H) 42 - 121 unit/L LAB CHEMISTRY METHOD 04/29/2024 2:49 PM [facility] Total Protein 6.9 6.0 - 8.0 g/dL LAB CHEMISTRY METHOD 04/29/2024 2:49 PM EST [facility] Albumin 3.2 3.2 - 5.0 g/dL LAB CHEMISTRY METHOD 04/29/2024 2:49 PM [facility] Total Bilirubin 0.3 0.0 - 1.4 mg/dL LAB CHEMISTRY METHOD 04/29/2024 2:49 PM [facility] Blood Venous blood specimen / Unknown Venipuncture / Unknown 04/29/2024 6:35 AM EST 04/29/2024 10:01 AM EST us Matias Bowling MD LAB BLOOD ORDERABLES Final Resul t [facility] [address] [place] [address], [place] [phone] * (ABNORMAL) Complete blood count (04/29/2024 6:35 AM EST) WBC 9.6 4.8 - 10.8 K/mcL LAB HEMETOLOGY METHOD 04/29/2024 11:28 AM [facility] RBC 3.70(L) 3.80 - 4.80 M/mcL LAB HEMETOLOGY METHOD 04/29/2024 11:28 AM [facility] Hemoglobin 9.9(L) 11.5 - 16.0 g/dL LAB HEMETOLOGY METHOD 04/29/2024 11:28 AM [facility] Hematocrit 32.0(L) 35.0 - 47.0 % LAB HEMETOLOGY METHOD 04/29/2024 11:28 AM [facility] MCV 87.0 79.0 - 98.0 FL LAB HEMETOLOGY METHOD 04/29/2024 11:28 AM [facility] MCH 26.9(L) 27.0 - 32.0 pcg LAB HEMETOLOGY METHOD 04/29/2024 11:28 AM [facility] MCHC 30.9(L) 32.0 - 37.0 g/dL LAB HEMETOLOGY METHOD 04/29/2024 11:28 AM EST [facility] RDW 14.6 11.0 - 15.0 % LAB HEMETOLOGY METHOD 04/29/2024 11:28 AM [facility] Platelets 358 130 - 400 K/mcL LAB HEMETOLOGY METHOD 04/29/2024 11:28 AM [facility] MPV 10.0 7.0 - 11.0 FL LAB HEMETOLOGY METHOD 04/29/2024 11:28 AM [facility] NRBC 0.0 <1.0 % LAB HEMETOLOGY METHOD 04/29/2024 11:28 AM [facility] NRBC Absolute 0.00 <0.10 K/mcL LAB HEMETOLOGY METHOD 04/29/2024 11:28 AM [facility] Blood Venous blood specimen / Unknown Venipuncture / Unknown 04/29/2024 6:35 AM EST 04/29/2024 10:01 AM EST us Matias Bowling MD LAB BLOOD ORDERABLES Final Resul t [facility] [address] [place] [address], documented in this encounter Visit Diagnoses Diagnosis Hyperlipidemia, unspecified 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 classified elsewhere (CMS/HCC V24, CMS/HCC V28) documented in this encounter Additional Health Concerns Infection Onset Date Last Indicated Resolved Time Gastrointestinal Rule-Out 04/28/2024 04/27/2024 7:06 PM EDT C. difficile 05/29/2024 05/29/2024 06/22/2024 7:04 PM EDT C. difficile Rule-Out 05/30/2024 05/29/20242024 9:47 AM EDT documented as of this encounter Care Teams Chief Accountant Relationship Specialty Start Date End Date Matias Bowling MD [address] [place] [address] PCP - General Family Medicine 04/16/24 documented as of this encounter
--- OUTSIDE RECORDS SUMMARY | 2024-11-20 13:01 | XMS_ITS | Clinical Summary ---
Author Organization [facility] Address [address] [facility] [address] [place] [address] Phone Care Team Providers Care Silk Worker Name Role Phone Ethel Chase Primary Care Provider [phone] Social History Tobacco Use Types Packs/Day Years [...] MEDICARE REPLACEMENT MEDICARE REPLACEMENT JOSÉ MIGUEL HERRING [id number] Care Teams Silk Worker Relationship Specialty Start Date End Date Salvatore EthelDO [address] [place] [address] PCP - General Family Medicine 12/19/23 Additional Source Comments The information contained in this document represents components of the legal health record. It is not the complete legal health record.[facility]
--- OUTSIDE RECORDS SUMMARY | 2024-11-20 13:01 | XMS_ITS | Encounter Summary ---
Author Organization [facility] Address [address] [place] [address] Care Team Providers Care Enlisted Advisor Name Role Phone Matias Bowling MD Primary Care Provider [phone] Encounter Details Date Type Department Care Team (Late st Contact Info) Description 05/20/2024 Lab Requisition [facility] - Main Lab [address] [place] [address] Matias Bowling MD 38 [facility] [address] [place], [address] Essential (primary) hypertension Social History Tobacco [...] LAB CHEMISTRY METHOD 05/21/2024 11:29 AM EDT [facility] Potassium 5.9(H) 3.5 - 5.5 mmol/L LAB CHEMISTRY METHOD 05/21/2024 11:29 AM EDT [facility] Chloride 102 96 - 110 mmol/L LAB CHEMISTRY METHOD 05/21/2024 11:29 AM [facility] CO2 27 21 - 32 mmol/L LAB CHEMISTRY METHOD 05/21/2024 11:29 AM [facility] Anion Gap 7 3 - 11 LAB CHEMISTRY METHOD 05/21/2024 11:29 AM [facility] Glucose 152(H) 70 - 100 mg/dL LAB CHEMISTRY METHOD 05/21/2024 11:29 AM [facility] BUN 21 5 - 25 mg/dL LAB CHEMISTRY METHOD 05/21/2024 11:29 AM [facility] Creatinine 2.30(H) 0.50 - 1.10 mg/dL LAB CHEMISTRY METHOD 05/21/2024 11:29 AM [facility] eGFR 23(L) >=60 mL/min/1. 73m2 LAB CHEMISTRY METHOD 05/21/2024 11:29 AM [facility] Comment:Calculation based on the Chronic Kidney Disease Epidemiology Collaboration (CKD-EPI) equation refit without adjustment for race. BUN/Creatinine Ratio 9.1 LAB CHEMISTRY METHOD 05/21/2024 11:29 AM [facility] Calcium 8.9 8.5 - 10.5 mg/dL LAB CHEMISTRY METHOD 05/21/2024 11:29 AM [facility] AST (SGOT) 23 10 - 42 unit/L LAB CHEMISTRY METHOD 05/21/2024 11:29 AM [facility] ALT (SGPT) 30 10 - 60 unit/L LAB CHEMISTRY METHOD 05/21/2024 11:29 AM [facility] Alkaline Phosphatase 174(H) 42 - 121 unit/L LAB CHEMISTRY METHOD 05/21/2024 11:29 AM [facility] Total Protein 6.7 6.0 - 8.0 g/dL LAB CHEMISTRY METHOD 05/21/2024 11:29 AM [facility] Albumin 3.3 3.2 - 5.0 g/dL LAB CHEMISTRY METHOD 05/21/2024 11:29 AM EDT [facility] Total Bilirubin 0.3 0.0 - 1.4 mg/dL LAB CHEMISTRY METHOD 05/21/2024 11:29 AM EDT [facility] Blood Venous blood specimen / Unknown Venipuncture / Unknown 05/21/2024 5:43 AM EDT 05/21/2024 9:27 AM EDT us Matias Bowling MD LAB BLOOD ORDERABLES Final Resul t [facility] [address] [place] [address], [place] [phone] * (ABNORMAL) Complete blood count (05/21/2024 5:43 AM EDT) WBC 10.3 4.8 - 10.8 K/mcL LAB HEMETOLOGY METHOD 05/21/2024 10:10 AM T [facility] RBC 3.50(L) 3.80 - 4.80 M/mcL LAB HEMETOLOGY METHOD 05/21/2024 10:10 AM [facility] Hemoglobin 9.0(L) 11.5 - 16.0 g/dL LAB HEMETOLOGY METHOD 05/21/2024 10:10 AM T [facility] Hematocrit 30.0(L) 35.0 - 47.0 % LAB HEMETOLOGY METHOD 05/21/2024 10:10 AM EDT [facility] MCV 86.5 79.0 - 98.0 FL LAB HEMETOLOGY METHOD 05/21/2024 10:10 AM [facility] MCH 25.9(L) 27.0 - 32.0 pcg LAB HEMETOLOGY METHOD 05/21/2024 10:10 AM T [facility] MCHC 30.0(L) 32.0 - 37.0 g/dL LAB HEMETOLOGY METHOD 05/21/2024 10:10 AM EDT [facility] RDW 15.1(H) 11.0 - 15.0 % LAB HEMETOLOGY METHOD 05/21/2024 10:10 AM EDT [facility] Platelets 272 130 - 400 K/mcL LAB HEMETOLOGY METHOD 05/21/2024 10:10 AM EDT [facility] MPV 10.2 7.0 - 11.0 FL LAB HEMETOLOGY METHOD 05/21/2024 10:10 AM EDT [facility] NRBC 0.0 <1.0 % LAB HEMETOLOGY METHOD 05/21/2024 10:10 AM EDT [facility] NRBC Absolute 0.00 <0.10 K/mcL LAB HEMETOLOGY METHOD 05/21/2024 10:10 AM EDT [facility] Blood Venous blood specimen / Unknown Venipuncture / Unknown 05/21/2024 5:43 AM EDT 05/21/2024 9:27 AM EDT us Matias Bowling MD LAB BLOOD ORDERABLES Final Resul t [facility] [address] [place] [address], documented in this encounter Visit Diagnoses Diagnosis Essential (primary) hypertension Unspecified essential hypertension documented in this encounter Additional Health Concerns Infection Onset Date Last Indicated Resolved Time Gastrointestinal Rule-Out 04/28/2024 04/27/2024 7:06 PM EDT C. difficile 05/29/2024 05/29/2024 06/22/2024 7:04 PM EDT C. difficile Rule-Out 05/30/2024 05/29/20242024 9:47 AM EDT documented as of this encounter Care Teams Enlisted Advisor Relationship Specialty Start Date End Date Matias Bowling MD [address] [place] [address] PCP - General Family Medicine 04/16/24 documented as of this encounter
--- OUTSIDE RECORDS SUMMARY | 2024-11-20 13:01 | XMS_ITS | Encounter Summary ---
Author Organization [facility] Address [address] [place] [address] Care Team Providers Care Dairy Bar Manager Name Role Phone Matias Bowling MD Primary Care Provider [phone] Encounter Details Date Type Department Care Team (Late st Contact Info) Description 06/03/2024 Lab Requisition [facility] - Main Lab [address] [place] [address] Matias Bowling MD 38 [facility] [address] [place], [address] Essential (primary) hypertension Social History Tobacco [...] LAB CHEMISTRY METHOD 06/04/2024 11:53 AM EDT [facility] Potassium 4.5 3.5 - 5.5 mmol/L LAB CHEMISTRY METHOD 06/04/2024 11:53 AM EDT [facility] Chloride 102 96 - 110 [...] AM [facility] Comment:Calculation based on the Chronic [...] METHOD 06/04/2024 11:53 AM [facility] Total Protein 6.7 6.0 - 8.0 g/dL LAB CHEMISTRY METHOD 06/04/2024 11:53 AM [facility] Albumin 3.2 3.2 - 5.0 g/dL LAB CHEMISTRY METHOD 06/04/2024 11:53 AM EDT [facility] Total Bilirubin 0.2 0.0 - 1.4 mg/dL LAB CHEMISTRY METHOD 06/04/2024 11:53 AM [facility] Blood Venous blood specimen / Unknown Venipuncture / Unknown 06/04/2024 5:45 AM EDT 06/04/2024 11:02 AM EDT us Matias Bowling MD LAB BLOOD ORDERABLES Final Resul t [facility] [address] [place] [address], [place] [phone] * (ABNORMAL) Complete blood count (06/04/2024 5:45 [...] FL LAB HEMETOLOGY METHOD 06/04/2024 11:21 AM [facility] MCH 26.2(L) 27.0 - 32.0 pcg LAB HEMETOLOGY METHOD 06/04/2024 11:21 AM [facility] MCHC 30.8(L) 32.0 - 37.0 g/dL LAB HEMETOLOGY METHOD 06/04/2024 11:21 AM EDT [facility] RDW 14.9 11.0 - 15.0 % LAB HEMETOLOGY METHOD 06/04/2024 11:21 AM EDT [facility] Platelets 309 130 - 400 K/mcL LAB HEMETOLOGY METHOD 06/04/2024 11:21 AM EDT [facility] MPV 10.0 7.0 - 11.0 FL LAB HEMETOLOGY METHOD 06/04/2024 11:21 AM EDT [facility] NRBC 0.0 <1.0 % LAB HEMETOLOGY METHOD 06/04/2024 11:21 AM EDT [facility] NRBC Absolute 0.00 <0.10 K/mcL LAB HEMETOLOGY METHOD 06/04/2024 11:21 AM EDT [facility] Blood Venous blood specimen / Unknown Venipuncture / Unknown 06/04/2024 5:45 AM EDT 06/04/2024 11:02 AM EDT us Matias Bowling MD LAB BLOOD ORDERABLES Final Resul t [facility] [address] [place] [address], documented in this encounter Visit Diagnoses Diagnosis Essential (primary) hypertension Unspecified essential hypertension documented in this encounter Additional Health Concerns Infection Onset Date Last Indicated Resolved Time C. difficile 05/29/2024 05/29/2024 06/22/2024 7:04 PM EDT documented as of this encounter Care Teams Dairy Bar Manager Relationship Specialty Start Date End Date Matias Bowling MD 38 [facility] [address] [place] [address] PCP - General Family Medicine 04/16/24 documented as of this encounter
--- OUTSIDE RECORDS SUMMARY | 2024-11-20 13:01 | XMS_ITS | Clinical Summary ---
Author Organization [address] Address [address] [place] [address] Phone Care Team Providers Care Meat Blender Name Role Phone Matias Bowling MD Primary Care Provider [phone] Social History Tobacco Use Types Packs/Day Years [...] mmol/L LAB CHEMISTRY METHOD 06/04/2024 11:53 AM [facility] Potassium 4.5 3.5 - 5.5 mmol/L LAB CHEMISTRY METHOD 06/04/2024 11:53 AM [facility] Chloride 102 96 - 110 mmol/L LAB CHEMISTRY METHOD 06/04/2024 11:53 AM [facility] CO2 29 21 - 32 mmol/L LAB CHEMISTRY METHOD 06/04/2024 11:53 AM [facility] Anion Gap 8 3 - 11 LAB CHEMISTRY METHOD 06/04/2024 11:53 AM [facility] Glucose 159(H) 70 - 100 mg/dL LAB CHEMISTRY METHOD 06/04/2024 11:53 AM [facility] BUN 11 5 - 25 mg/dL LAB CHEMISTRY METHOD 06/04/2024 11:53 AM [facility] Creatinine 1.11(H) 0.50 - 1.10 mg/dL LAB CHEMISTRY METHOD 06/04/2024 11:53 AM [facility] eGFR 54(L) >=60 mL/min/1. 73m2 LAB CHEMISTRY METHOD 06/04/2024 11:53 AM [facility] Comment:Calculation based on the Chronic Kidney Disease Epidemiology Collaboration (CKD-EPI) equation refit without adjustment for race. BUN/Creatinine Ratio 9.9 LAB CHEMISTRY METHOD 06/04/2024 11:53 AM [facility] Calcium 9.0 8.5 - 10.5 mg/dL LAB CHEMISTRY METHOD 06/04/2024 11:53 AM [facility] AST (SGOT) 16 10 - 42 unit/L LAB CHEMISTRY METHOD 06/04/2024 11:53 AM [facility] ALT (SGPT) 17 10 - 60 unit/L LAB CHEMISTRY METHOD 06/04/2024 11:53 AM [facility] Alkaline Phosphatase 144(H) 42 - 121 unit/L LAB CHEMISTRY METHOD 06/04/2024 11:53 AM [facility] Total Protein 6.7 6.0 - 8.0 g/dL LAB CHEMISTRY METHOD 06/04/2024 11:53 AM [facility] Albumin 3.2 3.2 - 5.0 g/dL LAB CHEMISTRY METHOD 06/04/2024 11:53 AM [facility] Total Bilirubin 0.2 0.0 - 1.4 mg/dL LAB CHEMISTRY METHOD 06/04/2024 11:53 AM [facility] Blood Venous blood specimen / Unknown Venipuncture / Unknown 06/04/2024 5:45 AM EDT 06/04/2024 11:02 AM EDT Matias Bowling MD LAB BLOOD ORDERABLES Final Resul t Performing Organization Address City/[facility]/ZIP Co de Phone Number [facility] [address] [place] [address], [place] [phone] * Occult blood stool, guaiac (05/29/2024 1:50 PM EDT) Occult Blood, Stool #1 Negative Negative 05/30/2024 9:[address] [facility] Stool Rectum structure / Unknown Non-blood Collection / Unknown 05/29/2024 1:50 PM EDT 05/30/2024 8:36 AM EDT Matias Bowling MD LAB BODY FLUIDS AND STOOLS ORDER MARGARET Final Result Performing Organization Address City/[facility]/ZIP Co de Phone Number [facility] [address] [place] [address], [place] [phone] from Last 3 Months or Most Recently Relevant to Health Maintenance Insurance [facility] MEDICARE Member Subscriber Plan / Payer (Ef fective 2022-Present) Name:Trish Hunter Relation to Subscriber:Self Name:Trish Hunter Payer ID:[id number] Group ID:[id number] Type:Not on file Address: [place] [address] [address] [phone] Care Teams Meat Blender Relationship Specialty Start Date End Date Matias Bowling MD [address] [place] [phone] PCP - General Family Medicine 04/16/24
--- OUTSIDE RECORDS SUMMARY | 2024-11-20 13:01 | XMS_ITS | Encounter Summary ---
Author Organization [facility] Address [address] [place] [address] Care Team Providers Care Bag Maker Name Role Phone Matias Bowling MD Primary Care Provider [phone] Encounter Details Date Type Department Care Team (Late st Contact Info) Description 05/06/2024 Lab Requisition [facility] - Main Lab [address] [place] [address] Matias Bowling MD 38 [facility] [address] [place], [address] Essential (primary) hypertension Social History Tobacco [...] LAB CHEMISTRY METHOD 05/07/2024 10:37 AM EDT [facility] Potassium 4.9 3.5 - 5.5 mmol/L LAB CHEMISTRY METHOD 05/07/2024 10:37 AM EDT [facility] Chloride 111(H) 96 - 110 [...] LAB CHEMISTRY METHOD 05/07/2024 10:37 AM EDT [facility] Total Bilirubin 0.2 0.0 - 1.4 mg/dL LAB CHEMISTRY METHOD 05/07/2024 10:37 AM [facility] Blood Venous blood specimen / Unknown Venipuncture / Unknown 05/07/2024 5:12 AM EDT 05/07/2024 8:53 AM EDT us Matias Bowling MD LAB BLOOD ORDERABLES Final Resul t [facility] [address] [place] [address], [place] [phone] * (ABNORMAL) Complete blood count (05/07/2024 5:12 [...] LAB HEMETOLOGY METHOD 05/07/2024 10:09 AM EDT [facility] RDW 14.6 11.0 - 15.0 % LAB HEMETOLOGY METHOD 05/07/2024 10:09 AM EDT [facility] Platelets 303 130 - 400 K/mcL LAB HEMETOLOGY METHOD 05/07/2024 10:09 AM EDT [facility] MPV 10.1 7.0 - 11.0 FL LAB HEMETOLOGY METHOD 05/07/2024 10:09 AM EDT [facility] NRBC 0.0 <1.0 % LAB HEMETOLOGY METHOD 05/07/2024 10:09 AM EDT [facility] NRBC Absolute 0.00 <0.10 K/mcL LAB HEMETOLOGY METHOD 05/07/2024 10:09 AM EDT [facility] Blood Venous blood specimen / Unknown Venipuncture / Unknown 05/07/2024 5:12 AM EDT 05/07/2024 8:53 AM EDT us Matias Bowling MD LAB BLOOD ORDERABLES Final Resul t [facility] [address] [place] [address], documented in this encounter Visit Diagnoses Diagnosis Essential (primary) hypertension Unspecified essential hypertension documented in this encounter Additional Health Concerns Infection Onset Date Last Indicated Resolved Time Gastrointestinal Rule-Out 04/28/2024 04/27/2024 7:06 PM EDT C. difficile 05/29/2024 05/29/2024 06/22/2024 7:04 PM EDT C. difficile Rule-Out 05/30/2024 05/29/20242024 9:47 AM EDT documented as of this encounter Care Teams Bag Maker Relationship Specialty Start Date End Date Matias Bowling MD 38 [facility] [address] [place] [phone] PCP - General Family Medicine 04/16/24 documented as of this encounter
--- OUTSIDE RECORDS SUMMARY | 2024-11-20 13:01 | XMS_ITS | Encounter Summary ---
Author Organization [facility] Address [address] [place] [address] Care Team Providers Care Final Armature Tester Name Role Phone Matias Bowling MD Primary Care Provider [phone] Encounter Details Date Type Department Care Team (Late st Contact Info) Description 05/22/2024 Lab Requisition [facility] - Main Lab [address] [place] [address] Matias Bowling MD 38 [facility] [address] [place], [address] 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 classified elsewhere (CMS/HCC [...] LAB CHEMISTRY METHOD 05/22/2024 11:37 AM EDT [facility] Potassium 5.2 3.5 - [...] [facility] [address] [place] [address], * (ABNORMAL) Complete blood count (05/22/2024 8:23 AM EDT) [facility] WBC 9.8 4.8 - 10.8 K/mcL LAB HEMETOLOGY METHOD 05/22/2024 11:21 AM [facility] RBC 3.60(L) 3.80 - 4.80 M/mcL LAB HEMETOLOGY METHOD 05/22/2024 11:21 AM [facility] Hemoglobin 9.5(L) 11.5 - 16.0 g/dL LAB HEMETOLOGY METHOD 05/22/2024 11:21 AM [facility] Hematocrit 31.2(L) 35.0 - 47.0 % LAB HEMETOLOGY METHOD 05/22/2024 11:21 AM [facility] MCV 86.4 79.0 - 98.0 FL LAB HEMETOLOGY METHOD 05/22/2024 11:21 AM [facility] MCH 26.3(L) 27.0 - 32.0 pcg LAB HEMETOLOGY METHOD 05/22/2024 11:21 AM [facility] MCHC 30.4(L) 32.0 - 37.0 g/dL LAB HEMETOLOGY METHOD 05/22/2024 11:21 AM [facility] RDW 14.7 11.0 - 15.0 % LAB HEMETOLOGY METHOD 05/22/2024 11:21 AM [facility] Platelets 278 130 - 400 K/mcL LAB HEMETOLOGY METHOD 05/22/2024 11:21 AM [facility] MPV 10.5 7.0 - 11.0 FL LAB HEMETOLOGY METHOD 05/22/2024 11:21 AM [facility] NRBC 0.0 <1.0 % LAB HEMETOLOGY METHOD 05/22/2024 11:21 AM [facility] NRBC Absolute 0.00 <0.10 K/mcL LAB HEMETOLOGY METHOD 05/22/2024 11:21 AM EDT [facility] Blood Venous blood specimen / Unknown Venipuncture / Unknown 05/22/2024 8:23 AM EDT 05/22/2024 10:31 AM EDT us Matias Bowling MD LAB BLOOD ORDERABLES Final Resul t [facility] [address] [place] [address], documented in this encounter Visit Diagnoses Diagnosis 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 classified elsewhere (CMS/HCC V24, CMS/HCC V28) Hyperlipidemia, unspecified documented in this encounter Additional Health Concerns Infection Onset Date Last Indicated Resolved Time Gastrointestinal Rule-Out 04/28/2024 04/27/2024 7:06 PM EDT C. difficile 05/29/2024 05/29/2024 06/22/2024 7:04 PM EDT C. difficile Rule-Out 05/30/2024 05/29/20242024 9:47 AM EDT documented as of this encounter Care Teams Final Armature Tester Relationship Specialty Start Date End Date Matias Bowling MD [address] [place] [address] [address] [place] [address] PCP - General Family Medicine 04/16/24 documented as of this encounter
--- OUTSIDE RECORDS SUMMARY | 2024-11-20 13:01 | XMS_ITS | Encounter Summary ---
Author Organization [facility] Address [address] [place] [address] Care Team Providers Care Cis Coordinator Name Role Phone Matias Bowling MD Primary Care Provider [phone] Encounter Details Date Type Department Care Team (Late st Contact Info) Description 04/16/[address] [facility] - Main Lab [address] [place] [address] Matias Bowling MD 38 [facility] [address] [place], [address] Essential (primary) hypertension Social History Tobacco [...] mmol/L LAB CHEMISTRY METHOD 04/16/2024 11:36 AM [facility] CO2 25 21 - 32 mmol/L LAB CHEMISTRY METHOD 04/16/2024 11:36 AM [facility] Anion Gap 13(H) 3 - 11 LAB CHEMISTRY METHOD 04/16/2024 11:36 AM [facility] Glucose 96 70 - 100 mg/dL LAB CHEMISTRY METHOD 04/16/2024 11:36 AM [facility] BUN 13 5 - 25 mg/dL LAB CHEMISTRY METHOD 04/16/2024 11:36 AM [facility] Creatinine 1.13(H) 0.50 - 1.10 mg/dL LAB CHEMISTRY METHOD 04/16/2024 11:36 AM [facility] eGFR 53(L) >=60 mL/min/1. 73m2 LAB CHEMISTRY METHOD 04/16/2024 11:36 AM [facility] Comment:Calculation based on the Chronic Kidney Disease Epidemiology Collaboration (CKD-EPI) equation refit without adjustment for race. BUN/Creatinine Ratio 11.5 LAB CHEMISTRY METHOD 04/16/2024 11:36 AM [facility] Calcium 9.1 8.5 - 10.5 mg/dL LAB CHEMISTRY METHOD 04/16/2024 11:36 AM [facility] AST (SGOT) 31 10 - 42 unit/L LAB CHEMISTRY METHOD 04/16/2024 11:36 AM [facility] ALT (SGPT) 33 10 - 60 unit/L LAB CHEMISTRY METHOD 04/16/2024 11:36 AM [facility] Alkaline Phosphatase 181(H) 42 - 121 unit/L LAB CHEMISTRY METHOD 04/16/2024 11:36 AM [facility] Total Protein 7.5 6.0 - 8.0 g/dL LAB CHEMISTRY METHOD 04/16/2024 11:36 AM [facility] Albumin 3.3 3.2 - 5.0 g/dL LAB CHEMISTRY METHOD 04/16/2024 11:36 AM [facility] Total Bilirubin 0.4 0.0 - 1.4 mg/dL LAB CHEMISTRY METHOD 04/16/2024 11:36 AM [facility] Blood Venous blood specimen / Unknown Venipuncture / Unknown 04/16/2024 7:33 AM EST 04/16/2024 10:20 AM EST us Matias Bowling MD LAB BLOOD ORDERABLES Final Resul t [facility] [address] [place] [address], * (ABNORMAL) Complete blood count (04/16/2024 7:33 AM EST) WBC 11.5(H) 4.8 - 10.8 K/mcL LAB HEMETOLOGY METHOD 04/16/2024 11:12 AM [facility] RBC 3.70(L) 3.80 - 4.80 M/mcL LAB HEMETOLOGY METHOD 04/16/2024 11:12 AM [facility] Hemoglobin 9.9(L) 11.5 - 16.0 g/dL LAB HEMETOLOGY METHOD 04/16/2024 11:12 AM [facility] Hematocrit 32.1(L) 35.0 - 47.0 % LAB HEMETOLOGY METHOD 04/16/2024 11:12 AM [facility] MCV 87.5 79.0 - 98.0 FL LAB HEMETOLOGY METHOD 04/16/2024 11:12 AM [facility] MCH 27.0 27.0 - 32.0 pcg LAB HEMETOLOGY METHOD 04/16/2024 11:12 AM [facility] MCHC 30.8(L) 32.0 - 37.0 g/dL LAB HEMETOLOGY METHOD 04/16/2024 11:12 AM EST [facility] RDW 14.2 11.0 - 15.0 [...] K/mcL LAB HEMETOLOGY METHOD 04/16/2024 11:12 AM [facility] Blood Venous blood specimen / Unknown Venipuncture / Unknown 04/16/2024 7:33 AM EST 04/16/2024 10:20 AM EST us Matias Bowling MD LAB BLOOD ORDERABLES Final Resul t [facility] [address] [place] [address], documented in this encounter Visit Diagnoses Diagnosis Essential (primary) hypertension Unspecified essential hypertension documented in this encounter Additional Health Concerns Infection Onset Date Last Indicated Resolved Time Gastrointestinal Rule-Out 04/28/2024 04/27/2024 7:06 PM EDT C. difficile 05/29/2024 05/29/2024 06/22/2024 7:04 PM EDT C. difficile Rule-Out 05/30/2024 05/29/20242024 9:47 AM EDT documented as of this encounter Care Teams Cis Coordinator Relationship Specialty Start Date End Date Matias Bowling MD [address] [place] [address] [address] [place] [phone] PCP - General Family Medicine 04/16/24 documented as of this encounter
--- OUTSIDE RECORDS SUMMARY | 2024-11-20 13:01 | XMS_ITS | Encounter Summary ---
Author Organization [facility] Address [address] [place] [address] Care Team Providers Care Professional Volleyball Player Name Role Phone Matias Bowling MD Primary Care Provider [phone] Encounter Details Date Type Department Care Team (Late st Contact Info) Description 04/29/2024 Lab Requisition [facility] - Main Lab [address] [facility] [employer] [place] [address] Matias Bowling MD 38 [facility] 204 [facility] [address] Essential (primary) hypertension Social History [...] documented as of this encounter Care Teams Professional Volleyball Player Relationship Specialty Start Date End Date Matias Bowling MD 38 [facility] [address] [place] [address] PCP - General Family Medicine 04/16/24 documented as of this encounter
--- OUTSIDE RECORDS SUMMARY | 2024-11-20 13:01 | XMS_ITS | Encounter Summary ---
Author Organization [facility] Address [address] [place] [address] Care Team Providers Care Elastic Yarn Twister Helper Name Role Phone Matias Bowling MD Primary Care Provider [phone] Encounter Details Date Type Department Care Team (Late st Contact Info) Description 05/13/2024 Lab Requisition [facility] - Main Lab [address] [place] [address] Matias Bowling MD 38 [facility] [address] [place], [address] Essential (primary) hypertension Social History Tobacco [...] mmol/L LAB CHEMISTRY METHOD 05/14/2024 11:24 AM [facility] LAB CO2 25 21 - 32 mmol/L LAB CHEMISTRY METHOD 05/14/2024 11:24 AM [facility] LAB Anion Gap 5 3 - 11 LAB CHEMISTRY METHOD 05/14/2024 11:24 AM [facility] LAB Glucose 132(H) 70 - 100 mg/dL LAB CHEMISTRY METHOD 05/14/2024 11:24 AM [facility] LAB BUN 13 5 - 25 mg/dL LAB CHEMISTRY METHOD 05/14/2024 11:24 AM [facility] LAB Creatinine 1.06 0.50 - 1.10 mg/dL LAB CHEMISTRY METHOD 05/14/2024 11:24 AM [facility] LAB eGFR 57(L) >=60 mL/min/1. 73m2 LAB CHEMISTRY METHOD 05/14/2024 11:24 AM [facility] LAB Comment:Calculation based on the Chronic Kidney Disease Epidemiology Collaboration (CKD-EPI) equation refit without adjustment for race. BUN/Creatinine Ratio 12.3 LAB CHEMISTRY METHOD 05/14/2024 11:24 AM [facility] LAB Calcium 9.6 8.5 - 10.5 mg/dL LAB CHEMISTRY METHOD 05/14/2024 11:24 AM [facility] LAB AST (SGOT) 20 10 - 42 unit/L LAB CHEMISTRY METHOD 05/14/2024 11:24 AM [facility] LAB ALT (SGPT) 28 10 - 60 unit/L LAB CHEMISTRY METHOD 05/14/2024 11:24 AM [facility] LAB Alkaline Phosphatase 160(H) 42 - 121 unit/L LAB CHEMISTRY METHOD 05/14/2024 11:24 AM [facility] LAB Total Protein 6.6 6.0 - 8.0 g/dL LAB CHEMISTRY METHOD 05/14/2024 11:24 AM [facility] LAB Albumin 3.2 3.2 - 5.0 g/dL LAB CHEMISTRY METHOD 05/14/2024 11:24 AM EDT [facility] LAB Total Bilirubin 0.2 0.0 - 1.4 mg/dL LAB CHEMISTRY METHOD 05/14/2024 11:24 AM T [facility] LAB Blood Venous blood specimen / Unknown Venipuncture / Unknown 05/14/2024 6:06 AM EDT 05/14/2024 9:53 AM EDT us Matias Bowling MD LAB BLOOD ORDERABLES Final Resul t [facility] [address] [place] [address], [place] [phone] * (ABNORMAL) Complete blood count (05/14/2024 6:06 AM EDT) WBC 8.8 4.8 - 10.8 K/mcL LAB HEMETOLOGY METHOD 05/14/2024 10:16 AM [facility] RBC 3.50(L) 3.80 - 4.80 M/mcL LAB HEMETOLOGY METHOD 05/14/2024 10:16 AM [facility] LAB Hemoglobin 9.4(L) 11.5 - 16.0 g/dL LAB HEMETOLOGY METHOD 05/14/2024 10:16 AM [facility] LAB Hematocrit 30.4(L) 35.0 - 47.0 % LAB HEMETOLOGY METHOD 05/14/2024 10:16 AM [facility] LAB MCV 85.9 79.0 - 98.0 FL LAB HEMETOLOGY METHOD 05/14/2024 10:16 AM [facility] LAB MCH 26.6(L) 27.0 - 32.0 pcg LAB HEMETOLOGY METHOD 05/14/2024 10:16 AM [facility] LAB MCHC 30.9(L) 32.0 [...] Resul t [facility] [address] [place] [address], documented in this encounter Visit Diagnoses Diagnosis Essential (primary) hypertension Unspecified essential hypertension documented in this encounter Additional Health Concerns Infection Onset Date Last Indicated Resolved Time Gastrointestinal Rule-Out 04/28/2024 04/27/2024 7:06 PM EDT C. difficile 05/29/2024 05/29/2024 06/22/2024 7:04 PM EDT C. difficile Rule-Out 05/30/2024 05/29/20242024 9:47 AM EDT documented as of this encounter Care Teams Elastic Yarn Twister Helper Relationship Specialty Start Date End Date Matias Bowling MD [address] [place] [address] PCP - General Family Medicine 04/16/24 documented as of this encounter
--- OUTSIDE RECORDS SUMMARY | 2024-11-20 13:02 | XMS_ITS | Encounter Summary ---
Author Organization [facility] Address [address] [place] [address] Care Team Providers Care Consultant Electronics Name Role Phone Matias Bowling MD Primary Care Provider [phone] Encounter Details Date Type Department Care Team (Late st Contact Info) Description 05/27/2024 Lab Requisition [facility] - Main Lab [address] [place] [address] Matias Bowling MD 38 [facility] [address] [place], [address] Essential (primary) hypertension Social History Tobacco [...] LAB CHEMISTRY METHOD 05/28/2024 10:13 AM EDT [facility] Potassium 4.2 3.5 - 5.5 mmol/L LAB CHEMISTRY METHOD 05/28/2024 10:13 AM EDT [facility] Chloride 103 96 - 110 mmol/L LAB CHEMISTRY METHOD 05/28/2024 10:13 AM [facility] LAB CO2 28 21 - 32 mmol/L LAB CHEMISTRY METHOD 05/28/2024 10:13 AM [facility] LAB Anion Gap 6 3 - 11 LAB CHEMISTRY METHOD 05/28/2024 10:13 AM [facility] LAB Glucose 141(H) 70 - 100 mg/dL LAB CHEMISTRY METHOD 05/28/2024 10:13 AM [facility] LAB BUN 13 5 - 25 mg/dL LAB CHEMISTRY METHOD 05/28/2024 10:13 AM [facility] Creatinine 1.21(H) 0.50 - 1.10 mg/dL LAB CHEMISTRY METHOD 05/28/2024 10:13 AM [facility] LAB eGFR 49(L) >=60 mL/min/1. 73m2 LAB CHEMISTRY METHOD 05/28/2024 10:13 AM [facility] LAB Comment:Calculation based on the Chronic Kidney Disease Epidemiology Collaboration (CKD-EPI) equation refit without adjustment for race. BUN/Creatinine Ratio 10.7 LAB CHEMISTRY METHOD 05/28/2024 10:13 AM [facility] Calcium 8.6 8.5 - 10.5 mg/dL LAB CHEMISTRY METHOD 05/28/2024 10:13 AM [facility] AST (SGOT) 12 10 - 42 unit/L LAB CHEMISTRY METHOD 05/28/2024 10:13 AM [facility] ALT (SGPT) 19 10 - 60 unit/L LAB CHEMISTRY METHOD 05/28/2024 10:13 AM [facility] LAB Alkaline Phosphatase 147(H) 42 - 121 unit/L LAB CHEMISTRY METHOD 05/28/2024 10:13 AM [facility] Total Protein 6.3 6.0 - 8.0 g/dL LAB CHEMISTRY METHOD 05/28/2024 10:13 AM [facility] Albumin 3.1(L) 3.2 - 5.0 g/dL LAB CHEMISTRY METHOD 05/28/2024 10:13 AM EDT [facility] Total Bilirubin 0.2 0.0 - 1.4 mg/dL LAB CHEMISTRY METHOD 05/28/2024 10:13 AM [facility] Blood Venous blood specimen / Unknown Venipuncture / Unknown 05/28/2024 5:02 AM EDT 05/28/2024 9:04 AM EDT us Matias Bowling MD LAB BLOOD ORDERABLES Final Resul t [facility] [address] [place] [address], [place] [phone] * (ABNORMAL) Complete blood count (05/28/2024 5:02 AM EDT) WBC 10.3 4.8 - 10.8 K/mcL LAB HEMETOLOGY METHOD 05/28/2024 9:26 AM [facility] RBC 3.30(L) 3.80 - 4.80 M/mcL LAB HEMETOLOGY METHOD 05/28/2024 9:26 AM [facility] Hemoglobin 8.7(L) 11.5 - 16.0 g/dL LAB HEMETOLOGY METHOD 05/28/2024 9:26 AM [facility] LAB Hematocrit 28.7(L) 35.0 - 47.0 % LAB HEMETOLOGY METHOD 05/28/2024 9:26 AM [facility] LAB MCV 87.0 79.0 - 98.0 FL LAB HEMETOLOGY METHOD 05/28/2024 9:26 AM [facility] MCH 26.4(L) 27.0 - 32.0 pcg LAB HEMETOLOGY METHOD 05/28/2024 9:26 AM [facility] LAB MCHC 30.3(L) 32.0 - 37.0 g/dL LAB HEMETOLOGY METHOD 05/28/2024 9:26 AM EDT [facility] RDW 14.9 11.0 - 15.0 % LAB HEMETOLOGY METHOD 05/28/2024 9:26 AM EDT [facility] Platelets 281 130 - 400 K/mcL LAB HEMETOLOGY METHOD 05/28/2024 9:26 AM EDT [facility] MPV 10.2 7.0 - 11.0 FL LAB HEMETOLOGY METHOD 05/28/2024 9:26 AM EDT [facility] NRBC 0.0 <1.0 % LAB HEMETOLOGY METHOD 05/28/2024 9:26 AM EDT [facility] NRBC Absolute 0.00 <0.10 K/mcL LAB HEMETOLOGY METHOD 05/28/2024 9:26 AM EDT [facility] Blood Venous blood specimen / Unknown Venipuncture / Unknown 05/28/2024 5:02 AM EDT 05/28/2024 9:04 AM EDT us Matias Bowling MD LAB BLOOD ORDERABLES Final Resul t [facility] [address] [place] [address], documented in this encounter Visit Diagnoses Diagnosis Essential (primary) hypertension Unspecified essential hypertension documented in this encounter Additional Health Concerns Infection Onset Date Last Indicated Resolved Time C. difficile 05/29/2024 05/29/2024 06/22/2024 7:04 PM EDT C. difficile Rule-Out 05/30/2024 05/29/20242024 9:47 AM EDT documented as of this encounter Care Teams Consultant Electronics Relationship Specialty Start Date End Date Matias Bowling MD [address] [place] [phone] PCP - General Family Medicine 04/16/24 documented as of this encounter
--- OUTSIDE RECORDS SUMMARY | 2024-11-20 13:02 | XMS_ITS | Encounter Summary ---
Author Organization [facility] Address [id number] [place] [phone] Care Team Providers Care Lap Winder Name Role Phone Matias Bowling MD Primary Care Provider [phone] Encounter Details Date Type Department Care Team (Late st Contact Info) Description 06/10/2024 Lab Requisition [facility] - Main Lab 299 [facility] [place] [address] Matias Bowling MD 38 [facility] 204 [facility] [address] Essential (primary) hypertension Social History [...] documented as of this encounter Care Teams Lap Winder Relationship Specialty Start Date End Date Matias Bowling MD 38 [facility] [address] [place] [address] PCP - General Family Medicine 04/16/24 documented as of this encounter
== END 2024-11-19 11:10 | disposition home or self-care (01) ==
LOC: HO.HOSX 11:09
PROVIDERS: Visit Provider Physician Assistant
DX: M97.12XD Periprosthetic fracture around internal prosthetic left knee joint, subsequent encounter (principal); Z96.652 Presence of left artificial knee joint
CPT/HCPCS: 73562; 99212

== ENCOUNTER 2024-12-15 13:12 | Outpatient (REF) | payer OTHER, SELFPAY ==
--- NOTE | ~2024-12-15 | MM_ITS ---
EXAMINATION: DXA BONE DENSITY AXIAL HISTORY: osteoporosis screening TECHNIQUE: Wejo Dual energy absorptiometry (DEXA) of the lumbar spine, total left hip, and femoral neck was performed. COMPARISON: None FINDINGS: The bone mineral density of the lumbar spine from L1 to L3 is 0.996 g/cm2, corresponding to a T-score of -1.5, and a Z-score of -1.0. This is indicative of osteopenia. (L4 excluded due to degenerative changes.) The bone mineral density of the left total hip is 1.042 g/cm2, corresponding to a T-score of 0.3, and a Z-score of 0.8. This is indicative of normal bone mineral density. The bone mineral density of the left femoral neck is 1.042 g/cm2, corresponding to a T-score of 0, and a Z-score of 0.9. This is indicative of normal bone mineral density. FRACTURE RISK: The FRAX index suggests a ten year probability of major osteoporotic fracture of 5.4%, and of hip fracture 0.2%. MM/XR DEXA axial skeleton IMPRESSION: Based on bone mineral density, and according to World Health Organization (WHO) criteria, the diagnosis is consistent with osteopenia based on T score of -1.5 in the spine. Statistically, 68% of repeat scans fall within 1 SD (+/- 0.010 g/cm2 for AP spine L1-L4) and 1 SD (+/- 0.012 g/cm2 for femur total) FRAX is a trademark of the [employer]'s [place] for Metabolic Bone Disease, a World Health Organization (WHO) Collaborating Center. Electronically signed by: Isabella Garcia MD 12/15/2024 01:51 PM EDT
--- OUTSIDE RECORDS SUMMARY | 2024-12-15 17:10 | XMS_ITS | Encounter Summary ---
Author Organization [facility] Address [address] [place] [address] Care Team Providers Care Clinical Trials Specialist Name Role Phone Matias Bowling MD Primary Care Provider [phone] Encounter Details Date Type Department Care Team (Late st Contact Info) Description 04/23/[address] [facility] - Main Lab [address] [place] [address] Matias Bowling MD 38 [facility] [address] [place], [address] Essential (primary) hypertension Social History Tobacco [...] Resul t [facility] [address] [place] [address], * (ABNORMAL) Complete blood count (04/23/2024 5:04 [...] 9:28 AM [facility] Platelets 333 130 - 400 K/mcL LAB HEMETOLOGY METHOD 04/23/2024 9:28 AM [facility] MPV 9.8 7.0 - 11.0 FL LAB HEMETOLOGY METHOD 04/23/2024 9:28 AM [facility] NRBC 0.0 <1.0 % LAB HEMETOLOGY METHOD 04/23/2024 9:28 AM [facility] NRBC Absolute 0.00 <0.10 K/mcL LAB HEMETOLOGY METHOD 04/23/2024 9:28 AM [facility] Blood Venous blood specimen / Unknown Venipuncture / Unknown 04/23/2024 5:04 AM EST 04/23/2024 8:47 AM EST us Matias Bowling MD LAB BLOOD ORDERABLES Final Resul t [facility] [address] [place] [address], documented in this encounter Visit Diagnoses Diagnosis Essential (primary) hypertension Unspecified essential hypertension documented in this encounter Additional Health Concerns Infection Onset Date Last Indicated Resolved Time Gastrointestinal Rule-Out 04/28/2024 04/27/2024 7:06 PM EDT C. difficile 05/29/2024 05/29/2024 06/22/2024 7:04 PM EDT C. difficile Rule-Out 05/30/2024 05/29/20242024 9:47 AM EDT documented as of this encounter Care Teams Clinical Trials Specialist Relationship Specialty Start Date End Date Matias Bowling MD [address] [place] [phone] PCP - General Family Medicine 04/16/24 documented as of this encounter
--- OUTSIDE RECORDS SUMMARY | 2024-12-15 17:10 | XMS_ITS | Clinical Summary ---
Author Organization [facility] Address [address] [facility] [address] [place] [address] Phone Care Team Providers Care Release Of Information Specialist Name Role Phone Ethel Chaes Primary Care Provider Social History Tobacco Use [...] VACCINE (#1) 2024 COVID-19 VACCINE ( - 2024-2 6 season) 2024 RSV VACCINE (1 - 1-dose [...] MEDICARE REPLACEMENT MEDICARE REPLACEMENT JOSÉ MIGUEL HERRING [id number] Care Teams Release Of Information Specialist Relationship Specialty Start Date End Date Salvatore EthelDO [address] [place] [address] PCP - General Family Medicine 12/19/23 Additional Source Comments The information contained in this document represents components of the legal health record. It is not the complete legal health record.[facility]
--- OUTSIDE RECORDS SUMMARY | 2024-12-15 17:10 | XMS_ITS | Encounter Summary ---
Author Organization [facility] Address [address] [place] [address] Care Team Providers Care Housekeeper Home Name Role Phone Matias Bowling MD Primary Care Provider [phone] Encounter Details Date Type Department Care Team (Late st Contact Info) Description 05/06/2024 Lab Requisition [facility] - Main Lab [address] [place] [address] Matias Bowling MD 38 [facility] [address] [place], [phone] Essential (primary) hypertension Social History Tobacco [...] LAB CHEMISTRY METHOD 05/07/2024 10:37 AM EDT [facility] Potassium 4.9 3.5 - 5.5 mmol/L LAB CHEMISTRY METHOD 05/07/2024 10:37 AM EDT [facility] Chloride 111(H) 96 - 110 mmol/L LAB CHEMISTRY METHOD 05/07/2024 10:37 AM [facility] CO2 22 21 - 32 mmol/L LAB CHEMISTRY METHOD 05/07/2024 10:37 AM [facility] LAB Anion Gap 8 3 - 11 LAB CHEMISTRY METHOD 05/07/2024 10:37 AM [facility] Glucose 121(H) 70 - 100 mg/dL LAB CHEMISTRY METHOD 05/07/2024 10:37 AM [facility] BUN 15 5 - 25 mg/dL LAB CHEMISTRY METHOD 05/07/2024 10:37 AM [facility] Creatinine 1.02 0.50 - 1.10 mg/dL LAB CHEMISTRY METHOD 05/07/2024 10:37 AM [facility] LAB eGFR 60 >=60 mL/min/1. 73m2 LAB CHEMISTRY METHOD 05/07/2024 10:37 AM [facility] LAB Comment:Calculation based on the Chronic Kidney Disease Epidemiology Collaboration (CKD-EPI) equation refit without adjustment for race. BUN/Creatinine Ratio 14.7 LAB CHEMISTRY METHOD 05/07/2024 10:37 AM [facility] Calcium 9.1 8.5 - 10.5 mg/dL LAB CHEMISTRY METHOD 05/07/2024 10:37 AM [facility] AST (SGOT) 15 10 - 42 unit/L LAB CHEMISTRY METHOD 05/07/2024 10:37 AM [facility] ALT (SGPT) 20 10 - 60 unit/L LAB CHEMISTRY METHOD 05/07/2024 10:37 AM [facility] Alkaline Phosphatase 161(H) 42 - 121 unit/L LAB CHEMISTRY METHOD 05/07/2024 10:37 AM [facility] Total Protein 6.4 6.0 - 8.0 g/dL LAB CHEMISTRY METHOD 05/07/2024 10:37 AM [facility] Albumin 3.1(L) 3.2 - 5.0 g/dL LAB CHEMISTRY METHOD 05/07/2024 10:37 AM EDT [facility] Total Bilirubin 0.2 0.0 - 1.4 mg/dL LAB CHEMISTRY METHOD 05/07/2024 10:37 AM [facility] Blood Venous blood specimen / Unknown Venipuncture / Unknown 05/07/2024 5:12 AM EDT 05/07/2024 8:53 AM EDT us Matias Bowling MD LAB BLOOD ORDERABLES Final Resul t [facility] [address] [place] [address], [place] [phone] * (ABNORMAL) Complete blood count (05/07/2024 5:12 AM EDT) WBC 9.6 4.8 - 10.8 K/mcL LAB HEMETOLOGY METHOD 05/07/2024 10:09 AM [facility] RBC 3.60(L) 3.80 - 4.80 M/mcL LAB HEMETOLOGY METHOD 05/07/2024 10:09 AM [facility] Hemoglobin 9.4(L) 11.5 - 16.0 g/dL LAB HEMETOLOGY METHOD 05/07/2024 10:09 AM [facility] LAB Hematocrit 31.5(L) 35.0 - 47.0 % LAB HEMETOLOGY METHOD 05/07/2024 10:09 AM [facility] LAB MCV 88.2 79.0 - 98.0 FL LAB HEMETOLOGY METHOD 05/07/2024 10:09 AM [facility] MCH 26.3(L) 27.0 - 32.0 pcg LAB HEMETOLOGY METHOD 05/07/2024 10:09 AM [facility] LAB MCHC 29.8(L) 32.0 - 37.0 g/dL LAB HEMETOLOGY METHOD 05/07/2024 10:09 AM EDT [facility] RDW 14.6 11.0 - 15.0 % LAB HEMETOLOGY METHOD 05/07/2024 10:09 AM EDT [facility] Platelets 303 130 - 400 K/mcL LAB HEMETOLOGY METHOD 05/07/2024 10:09 AM EDT [facility] MPV 10.1 7.0 - 11.0 FL LAB HEMETOLOGY METHOD 05/07/2024 10:09 AM EDT [facility] NRBC 0.0 <1.0 % LAB HEMETOLOGY METHOD 05/07/2024 10:09 AM EDT [facility] NRBC Absolute 0.00 <0.10 K/mcL LAB HEMETOLOGY METHOD 05/07/2024 10:09 AM EDT [facility] Blood Venous blood specimen / Unknown Venipuncture / Unknown 05/07/2024 5:12 AM EDT 05/07/2024 8:53 AM EDT us Matias Bowling MD LAB BLOOD ORDERABLES Final Resul t [facility] [address] [place] [address], documented in this encounter Visit Diagnoses Diagnosis Essential (primary) hypertension Unspecified essential hypertension documented in this encounter Additional Health Concerns Infection Onset Date Last Indicated Resolved Time Gastrointestinal Rule-Out 04/28/2024 04/27/2024 7:06 PM EDT C. difficile 05/29/2024 05/29/2024 06/22/2024 7:04 PM EDT C. difficile Rule-Out 05/30/2024 05/29/20242024 9:47 AM EDT documented as of this encounter Care Teams Housekeeper Home Relationship Specialty Start Date End Date Matias Bowling MD 38 [facility] [address] [place] [phone] PCP - General Family Medicine 04/16/24 documented as of this encounter
--- OUTSIDE RECORDS SUMMARY | 2024-12-15 17:10 | XMS_ITS | Encounter Summary ---
Author Organization [facility] Address [address] [place] [address] Care Team Providers Care Banking Attorney Name Role Phone Matias Bowling MD Primary Care Provider Encounter Details Date Type Department Care Team (Late st Contact Info) Description 04/30/2024 Lab Requisition [facility] - Main Lab [address] [place] [address] Matias Bowling MD 38 [facility] [address] [place], [phone] Essential (primary) hypertension Social History Tobacco [...] mmol/L LAB CHEMISTRY METHOD 05/01/2024 12:26 PM [facility] CO2 21 21 - 32 mmol/L LAB CHEMISTRY METHOD 05/01/2024 12:26 PM [facility] Anion Gap 11 3 - 11 LAB CHEMISTRY METHOD 05/01/2024 12:26 PM [facility] Glucose 138(H) 70 - 100 mg/dL LAB CHEMISTRY METHOD 05/01/2024 12:26 PM [facility] BUN 18 5 - 25 mg/dL LAB CHEMISTRY METHOD 05/01/2024 12:26 PM [facility] Creatinine 1.07 0.50 - 1.10 mg/dL LAB CHEMISTRY METHOD 05/01/2024 12:26 PM [facility] eGFR 57(L) >=60 mL/min/1. 73m2 LAB CHEMISTRY METHOD 05/01/2024 12:26 PM [facility] Comment:Calculation based on the Chronic Kidney Disease Epidemiology Collaboration (CKD-EPI) equation refit without adjustment for race. BUN/Creatinine Ratio 16.8 LAB CHEMISTRY METHOD 05/01/2024 12:26 PM [facility] Calcium 9.3 8.5 - 10.5 mg/dL LAB CHEMISTRY METHOD 05/01/2024 12:26 PM [facility] Blood Venous blood specimen / Unknown Venipuncture / Unknown 05/01/2024 4:57 AM EST 05/01/2024 11:00 AM EST us Matias Bowling MD LAB BLOOD ORDERABLES Final Resul t [facility] [address] [place] [address], * (ABNORMAL) Complete blood count (05/01/2024 4:57 AM EST) WBC 9.9 4.8 - 10.8 K/mcL LAB HEMETOLOGY METHOD 05/01/2024 11:34 AM [facility] RBC 3.50(L) 3.80 - 4.80 M/mcL LAB HEMETOLOGY METHOD 05/01/2024 11:34 AM [facility] Hemoglobin 9.3(L) 11.5 - 16.0 g/dL LAB HEMETOLOGY METHOD 05/01/2024 11:34 AM [facility] Hematocrit 31.7(L) 35.0 - 47.0 % LAB HEMETOLOGY METHOD 05/01/2024 11:34 AM [facility] MCV 90.3 79.0 - 98.0 FL LAB HEMETOLOGY METHOD 05/01/2024 11:34 AM [facility] MCH 26.5(L) 27.0 - 32.0 pcg LAB HEMETOLOGY METHOD 05/01/2024 11:34 AM [facility] MCHC 29.3(L) 32.0 - 37.0 g/dL LAB HEMETOLOGY METHOD 05/01/2024 11:34 AM [facility] RDW 14.7 11.0 - 15.0 % LAB HEMETOLOGY METHOD 05/01/2024 11:34 AM [facility] Platelets 312 130 - 400 K/mcL LAB HEMETOLOGY METHOD 05/01/2024 11:34 AM [facility] MPV 10.3 7.0 - 11.0 FL LAB HEMETOLOGY METHOD 05/01/2024 11:34 AM [facility] NRBC 0.0 <1.0 % LAB HEMETOLOGY METHOD 05/01/2024 11:34 AM [facility] NRBC Absolute 0.00 <0.10 K/mcL LAB HEMETOLOGY METHOD 05/01/2024 11:34 AM [facility] Blood Venous blood specimen / Unknown Venipuncture / Unknown 05/01/2024 4:57 AM EST 05/01/2024 11:00 AM EST us Matias Bowling MD LAB BLOOD ORDERABLES Final Resul t [email or web address] [address] [place] [address], documented in this encounter Visit Diagnoses Diagnosis Essential (primary) hypertension Unspecified essential hypertension documented in this encounter Additional Health Concerns Infection Onset Date Last Indicated Resolved Time Gastrointestinal Rule-Out 04/28/2024 04/27/2024 7:06 PM EDT C. difficile 05/29/2024 05/29/2024 06/22/2024 7:04 PM EDT C. difficile Rule-Out 05/30/2024 05/29/20242024 9:47 AM EDT documented as of this encounter Care Teams Banking Attorney Relationship Specialty Start Date End Date Matias Bowling MD [address] [place] [phone] PCP - General Family Medicine 04/16/24 documented as of this encounter
--- OUTSIDE RECORDS SUMMARY | 2024-12-15 17:10 | XMS_ITS | Encounter Summary ---
Author Organization [facility] Address [address] [place] [phone] Care Team Providers Care Summer Sessions Director Name Role Phone Matias Bowling MD Primary Care Provider [phone] Encounter Details Date Type Department Care Team (Late st Contact Info) Description 04/28/2024 Lab Requisition [facility] - Main Lab 299 [facility] [place] [address] Matias Bowling MD 38 [facility] 204 [facility] [phone] Diarrhea, unspecified Social History Tobacco [...] documented as of this encounter Care Teams Summer Sessions Director Relationship Specialty Start Date End Date Matias Bowling MD 38 [facility] [address] [place] [phone] PCP - General Family Medicine 04/16/24 documented as of this encounter
--- OUTSIDE RECORDS SUMMARY | 2024-12-15 17:10 | XMS_ITS | Encounter Summary ---
Author Organization [facility] Address [address] [place] [address] Care Team Providers Care Church History Teacher Name Role Phone Matias Bowling MD Primary Care Provider [phone] Encounter Details Date Type Department Care Team (Late st Contact Info) Description 04/16/2024 Lab Requisition [facility] - Main Lab [address] [place] [address] Matias Bowling MD 38 [facility] [address] [place], [address] Essential (primary) hypertension Social History Tobacco [...] LAB CHEMISTRY METHOD 04/16/2024 11:36 AM EST [facility] Potassium 4.2 3.5 - 5.5 mmol/L LAB CHEMISTRY METHOD 04/16/2024 11:36 AM EST [facility] Chloride 103 96 - 110 mmol/L LAB CHEMISTRY METHOD 04/16/2024 11:36 AM [facility] CO2 25 21 - 32 mmol/L LAB CHEMISTRY METHOD 04/16/2024 11:36 AM [facility] Anion Gap 13(H) 3 - 11 LAB CHEMISTRY METHOD 04/16/2024 11:36 AM [facility] Glucose 96 70 - 100 mg/dL LAB CHEMISTRY METHOD 04/16/2024 11:36 AM [facility] BUN 13 5 - 25 mg/dL LAB CHEMISTRY METHOD 04/16/2024 11:36 AM [facility] Creatinine 1.13(H) 0.50 - 1.10 mg/dL LAB CHEMISTRY METHOD 04/16/2024 11:36 AM [facility] eGFR 53(L) >=60 mL/min/1. 73m2 LAB CHEMISTRY METHOD 04/16/2024 11:36 AM [facility] Comment:Calculation based on the Chronic Kidney Disease Epidemiology Collaboration (CKD-EPI) equation refit without adjustment for race. BUN/Creatinine Ratio 11.5 LAB CHEMISTRY METHOD 04/16/2024 11:36 AM [facility] Calcium 9.1 8.5 - 10.5 mg/dL LAB CHEMISTRY METHOD 04/16/2024 11:36 AM [facility] AST (SGOT) 31 10 - 42 unit/L LAB CHEMISTRY METHOD 04/16/2024 11:36 AM [facility] ALT (SGPT) 33 10 - 60 unit/L LAB CHEMISTRY METHOD 04/16/2024 11:36 AM [facility] Alkaline Phosphatase 181(H) 42 - 121 unit/L LAB CHEMISTRY METHOD 04/16/2024 11:36 AM [facility] Total Protein 7.5 6.0 - 8.0 g/dL LAB CHEMISTRY METHOD 04/16/2024 11:36 AM [facility] Albumin 3.3 3.2 - 5.0 g/dL LAB CHEMISTRY METHOD 04/16/2024 11:36 AM [facility] Total Bilirubin 0.4 0.0 - 1.4 mg/dL LAB CHEMISTRY METHOD 04/16/2024 11:36 AM [facility] Blood Venous blood specimen / Unknown Venipuncture / Unknown 04/16/2024 7:33 AM EST 04/16/2024 10:20 AM EST us Matias Bowling MD LAB BLOOD ORDERABLES Final Resul t [facility] [address] [place] [address], * (ABNORMAL) Complete blood count (04/16/2024 7:33 AM EST) WBC 11.5(H) 4.8 - 10.8 K/mcL LAB HEMETOLOGY METHOD 04/16/2024 11:12 AM [facility] RBC 3.70(L) 3.80 - 4.80 M/mcL LAB HEMETOLOGY METHOD 04/16/2024 11:12 AM [facility] Hemoglobin 9.9(L) 11.5 - 16.0 g/dL LAB HEMETOLOGY METHOD 04/16/2024 11:12 AM [facility] Hematocrit 32.1(L) 35.0 - 47.0 % LAB HEMETOLOGY METHOD 04/16/2024 11:12 AM [facility] MCV 87.5 79.0 - 98.0 FL LAB HEMETOLOGY METHOD 04/16/2024 11:12 AM [facility] MCH 27.0 27.0 - 32.0 pcg LAB HEMETOLOGY METHOD 04/16/2024 11:12 AM [facility] MCHC 30.8(L) 32.0 - 37.0 g/dL LAB HEMETOLOGY METHOD 04/16/2024 11:12 AM EST [facility] RDW 14.2 11.0 - 15.0 % LAB HEMETOLOGY METHOD 04/16/2024 11:12 AM EST [facility] Platelets 443(H) 130 - 400 K/mcL LAB HEMETOLOGY METHOD 04/16/2024 11:12 AM EST [facility] MPV 9.8 7.0 - 11.0 FL LAB HEMETOLOGY METHOD 04/16/2024 11:12 AM EST [facility] NRBC 0.0 <1.0 % LAB HEMETOLOGY METHOD 04/16/2024 11:12 AM EST [facility] NRBC Absolute 0.00 <0.10 K/mcL LAB HEMETOLOGY METHOD 04/16/2024 11:12 AM [facility] Blood Venous blood specimen / Unknown Venipuncture / Unknown 04/16/2024 7:33 AM EST 04/16/2024 10:20 AM EST us Matias Bowling MD LAB BLOOD ORDERABLES Final Resul t [facility] [address] [place] [address], documented in this encounter Visit Diagnoses Diagnosis Essential (primary) hypertension Unspecified essential hypertension documented in this encounter Additional Health Concerns Infection Onset Date Last Indicated Resolved Time Gastrointestinal Rule-Out 04/28/2024 04/27/2024 7:06 PM EDT C. difficile 05/29/2024 05/29/2024 06/22/2024 7:04 PM EDT C. difficile Rule-Out 05/30/2024 05/29/20242024 9:47 AM EDT documented as of this encounter Care Teams Church History Teacher Relationship Specialty Start Date End Date Matias Bowling MD [address] [place] [address] [address] [place] [phone] PCP - General Family Medicine 04/16/24 documented as of this encounter
--- OUTSIDE RECORDS SUMMARY | 2024-12-15 17:10 | XMS_ITS | Encounter Summary ---
Author Organization [facility] Address [address] [place] [address] Care Team Providers Care Shotweld Operator Name Role Phone Matias Bowling MD Primary Care Provider [phone] Encounter Details Date Type Department Care Team (Late st Contact Info) Description 06/03/2024 Lab Requisition [facility] - Main Lab [address] [place] [address] Matias Bowling MD 38 [facility] [address] [place], [address] Essential (primary) hypertension Social History Tobacco [...] LAB CHEMISTRY METHOD 06/04/2024 11:53 AM EDT [facility] Potassium 4.5 3.5 - 5.5 mmol/L LAB CHEMISTRY METHOD 06/04/2024 11:53 AM EDT [facility] Chloride 102 96 - 110 mmol/L LAB CHEMISTRY METHOD 06/04/2024 11:53 AM [facility] CO2 29 21 - 32 mmol/L LAB CHEMISTRY METHOD 06/04/2024 11:53 AM [facility] Anion Gap 8 3 - 11 LAB CHEMISTRY METHOD 06/04/2024 11:53 AM [facility] Glucose 159(H) 70 - 100 mg/dL LAB CHEMISTRY METHOD 06/04/2024 11:53 AM [facility] BUN 11 5 - 25 mg/dL LAB CHEMISTRY METHOD 06/04/2024 11:53 AM [facility] Creatinine 1.11(H) 0.50 - 1.10 mg/dL LAB CHEMISTRY METHOD 06/04/2024 11:53 AM [facility] eGFR 54(L) >=60 mL/min/1. 73m2 LAB CHEMISTRY METHOD 06/04/2024 11:53 AM [facility] Comment:Calculation based on the Chronic Kidney Disease Epidemiology Collaboration (CKD-EPI) equation refit without adjustment for race. BUN/Creatinine Ratio 9.9 LAB CHEMISTRY METHOD 06/04/2024 11:53 AM [facility] Calcium 9.0 8.5 - 10.5 mg/dL LAB CHEMISTRY METHOD 06/04/2024 11:53 AM [facility] AST (SGOT) 16 10 - 42 unit/L LAB CHEMISTRY METHOD 06/04/2024 11:53 AM [facility] ALT (SGPT) 17 10 - 60 unit/L LAB CHEMISTRY METHOD 06/04/2024 11:53 AM [facility] Alkaline Phosphatase 144(H) 42 - 121 unit/L LAB CHEMISTRY METHOD 06/04/2024 11:53 AM [facility] Total Protein 6.7 6.0 - 8.0 g/dL LAB CHEMISTRY METHOD 06/04/2024 11:53 AM [facility] Albumin 3.2 3.2 - 5.0 g/dL LAB CHEMISTRY METHOD 06/04/2024 11:53 AM EDT [facility] Total Bilirubin 0.2 0.0 - 1.4 mg/dL LAB CHEMISTRY METHOD 06/04/2024 11:53 AM [facility] Blood Venous blood specimen / Unknown Venipuncture / Unknown 06/04/2024 5:45 AM EDT 06/04/2024 11:02 AM EDT us Matias Bowling MD LAB BLOOD ORDERABLES Final Resul t [facility] [address] [place] [address], [place] [phone] * (ABNORMAL) Complete blood count (06/04/2024 5:45 AM EDT) WBC 12.1(H) 4.8 - 10.8 K/mcL LAB HEMETOLOGY METHOD 06/04/2024 11:21 AM [facility] RBC 3.50(L) 3.80 - 4.80 M/mcL LAB HEMETOLOGY METHOD 06/04/2024 11:21 AM [facility] Hemoglobin 9.1(L) 11.5 - 16.0 g/dL LAB HEMETOLOGY METHOD 06/04/2024 11:21 AM [facility] Hematocrit 29.5(L) 35.0 - 47.0 % LAB HEMETOLOGY METHOD 06/04/2024 11:21 AM [facility] MCV 85.0 79.0 - 98.0 FL LAB HEMETOLOGY METHOD 06/04/2024 11:21 AM [facility] MCH 26.2(L) 27.0 - 32.0 pcg LAB HEMETOLOGY METHOD 06/04/2024 11:21 AM [facility] MCHC 30.8(L) 32.0 - 37.0 g/dL LAB HEMETOLOGY METHOD 06/04/2024 11:21 AM EDT [facility] RDW 14.9 11.0 - 15.0 % LAB HEMETOLOGY METHOD 06/04/2024 11:21 AM EDT [facility] Platelets 309 130 - 400 K/mcL LAB HEMETOLOGY METHOD 06/04/2024 11:21 AM EDT [facility] MPV 10.0 7.0 - 11.0 FL LAB HEMETOLOGY METHOD 06/04/2024 11:21 AM EDT [facility] NRBC 0.0 <1.0 % LAB HEMETOLOGY METHOD 06/04/2024 11:21 AM EDT [facility] NRBC Absolute 0.00 <0.10 K/mcL LAB HEMETOLOGY METHOD 06/04/2024 11:21 AM EDT [facility] Blood Venous blood specimen / Unknown Venipuncture / Unknown 06/04/2024 5:45 AM EDT 06/04/2024 11:02 AM EDT us Matias Bowling MD LAB BLOOD ORDERABLES Final Resul t [facility] [address] [place] [address], documented in this encounter Visit Diagnoses Diagnosis Essential (primary) hypertension Unspecified essential hypertension documented in this encounter Additional Health Concerns Infection Onset Date Last Indicated Resolved Time C. difficile 05/29/2024 05/29/2024 06/22/2024 7:04 PM EDT documented as of this encounter Care Teams Shotweld Operator Relationship Specialty Start Date End Date Matias Bowling MD 38 [facility] [address] [place] [address] PCP - General Family Medicine 04/16/24 documented as of this encounter
--- OUTSIDE RECORDS SUMMARY | 2024-12-15 17:10 | XMS_ITS | Encounter Summary ---
Author Organization [facility] Address [address] [place] [address] Care Team Providers Care Forest Botany Instructor Name Role Phone Matias Bowling MD Primary Care Provider [phone] Encounter Details Date Type Department Care Team (Late st Contact Info) Description 05/30/[address] [facility] - Main Lab 299 [facility] [place] [address] Matias Bowling MD 38 [facility] [address] [place], [address] Diarrhea, unspecified Social History Tobacco Use [...] ORDER MARGARET Final Result Performing Organization Address City/[facility]/ZIP Co de Phone Number [facility] [address] [place] [address], [place] [phone] * Occult blood stool, guaiac (05/29/2024 1:50 PM EDT) Occult Blood, Stool #1 Negative Negative 05/30/2024 9:30 AM EDT [facility] Stool Rectum structure / Unknown Non-blood Collection / Unknown 05/29/2024 1:50 PM EDT 05/30/2024 8:36 AM EDT Matias Bowling MD LAB BODY FLUIDS AND STOOLS ORDER MARGARET Final Result Performing Organization Address [facility]/ZIP Co de Phone Number [facility] [address] [place] [address], [place] [phone] * Ova and parasite examination (05/29/2024 1:50 [...] ORDER MARGARET Final Result Performing Organization Address [facility]/ZIP Co de Phone Number [facility] [address] [place] [address], [place] [phone] * Clostridium difficile toxin (05/29/2024 1:50 PM EDT) C difficile Toxins A+B, EIA 05/30/2024 9:47 AM EDT [facility] Comment:Refer to C. difficil e PCR assay for results. Stool Rectum structure / Unknown Non-blood Collection / Unknown 05/29/2024 1:50 PM EDT 05/30/2024 8:36 AM EDT Matias Bowling MD LAB MICROBIOLOGY - GENERAL ORDER MARGARET Final Result Performing Organization Address [facility] Co de Phone Number [facility] [address] [place] [address], [place] [phone] documented in this encounter Visit Diagnoses Diagnosis Diarrhea, unspecified documented in this encounter Additional Health Concerns Infection Onset Date Last Indicated Resolved Time C. difficile 05/29/2024 05/29/2024 06/22/2024 7:04 PM EDT C. difficile Rule-Out 05/30/2024 05/29/20242024 9:47 AM EDT documented as of this encounter Care Teams Forest Botany Instructor Relationship Specialty Start Date End Date Matias Bowling MD [address] [place] [address] [address] [place] [address] PCP - General Family Medicine 04/16/24 documented as of this encounter
--- OUTSIDE RECORDS SUMMARY | 2024-12-15 17:10 | XMS_ITS | Encounter Summary ---
Author Organization [facility] Address [address] [place] [address] Care Team Providers Care Workers Compensation Paralegal Name Role Phone Matias Bowling MD Primary Care Provider [phone] Encounter Details Date Type Department Care Team (Late st Contact Info) Description 04/29/2024 Lab Requisition [facility] - Main Lab [address] [place] [address] Matias Bowling MD 38 [facility] 204 [place], [address] Hyperlipidemia, unspecified; 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 classified [...] LAB CHEMISTRY METHOD 04/29/2024 2:49 PM EST [facility] Potassium 4.5 3.5 [...] PM [facility] Comment:Calculation based on the Chronic [...] LAB CHEMISTRY METHOD 04/29/2024 2:49 PM EST [facility] Albumin [...] [facility] [address] [place] [address], [place] [phone] * (ABNORMAL) Complete blood count (04/29/2024 6:35 [...] pcg LAB HEMETOLOGY METHOD 04/29/2024 11:28 AM [facility] MCHC 30.9(L) 32.0 - 37.0 g/dL LAB HEMETOLOGY METHOD 04/29/2024 11:28 AM EST [facility] RDW [...] [facility] [address] [place] [address], documented in this encounter Visit Diagnoses Diagnosis Hyperlipidemia, unspecified 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 classified elsewhere (CMS/HCC V24, CMS/HCC V28) documented in this encounter Additional Health Concerns Infection Onset Date Last Indicated Resolved Time Gastrointestinal Rule-Out 04/28/2024 04/27/2024 7:06 PM EDT C. difficile 05/29/2024 05/29/2024 06/22/2024 7:04 PM EDT C. difficile Rule-Out 05/30/2024 05/29/20242024 9:47 AM EDT documented as of this encounter Care Teams Workers Compensation Paralegal Relationship Specialty Start Date End Date Matias Bowling MD [address] [place] [address] PCP - General Family Medicine 04/16/24 documented as of this encounter
--- OUTSIDE RECORDS SUMMARY | 2024-12-15 17:10 | XMS_ITS | Encounter Summary ---
Author Organization [facility] Address [address] [place] [address] Care Team Providers Care Call Center Analyst Name Role Phone Matias Bowling MD Primary Care Provider [phone] Encounter Details Date Type Department Care Team (Late st Contact Info) Description 05/13/2024 Lab Requisition [facility] - Main Lab [address] [place] [address] Matias Bowling MD 38 [facility] [address] [place], [address] Essential (primary) hypertension Social History Tobacco [...] LAB CHEMISTRY METHOD 05/14/2024 11:[address] [facility] Potassium 5.2 3.5 - 5.5 mmol/L LAB CHEMISTRY METHOD 05/14/2024 11:[address] [facility] Chloride 108 96 - 110 mmol/L LAB CHEMISTRY METHOD 05/14/2024 11:24 AM [facility] CO2 25 21 - 32 mmol/L LAB CHEMISTRY METHOD 05/14/2024 11:24 AM [facility] Anion Gap 5 3 - 11 LAB CHEMISTRY METHOD 05/14/2024 11:24 AM [facility] Glucose 132(H) 70 - 100 mg/dL LAB CHEMISTRY METHOD 05/14/2024 11:24 AM [facility] BUN 13 5 - 25 mg/dL LAB CHEMISTRY METHOD 05/14/2024 11:24 AM [facility] Creatinine 1.06 0.50 - 1.10 mg/dL LAB CHEMISTRY METHOD 05/14/2024 11:24 AM [facility] eGFR 57(L) >=60 mL/min/1. 73m2 LAB CHEMISTRY METHOD 05/14/2024 11:24 AM [facility] Comment:Calculation based on the Chronic Kidney Disease Epidemiology Collaboration (CKD-EPI) equation refit without adjustment for race. BUN/Creatinine Ratio 12.3 LAB CHEMISTRY METHOD 05/14/2024 11:24 AM [facility] Calcium 9.6 8.5 - 10.5 mg/dL LAB CHEMISTRY METHOD 05/14/2024 11:24 AM [facility] AST (SGOT) 20 10 - 42 unit/L LAB CHEMISTRY METHOD 05/14/2024 11:24 AM [facility] ALT (SGPT) 28 10 - 60 unit/L LAB CHEMISTRY METHOD 05/14/2024 11:24 AM [facility] Alkaline Phosphatase 160(H) 42 - 121 unit/L LAB CHEMISTRY METHOD 05/14/2024 11:24 AM [facility] Total Protein 6.6 6.0 - 8.0 g/dL LAB CHEMISTRY METHOD 05/14/2024 11:24 AM [facility] Albumin 3.2 3.2 - 5.0 g/dL LAB CHEMISTRY METHOD 05/14/2024 11:[address] [facility] Total Bilirubin 0.2 0.0 - 1.4 mg/dL LAB CHEMISTRY METHOD 05/14/2024 11:[address] [facility] Blood Venous blood specimen / Unknown Venipuncture / Unknown 05/14/2024 6:06 AM EDT 05/14/2024 9:53 AM EDT us Matias Bowling MD LAB BLOOD ORDERABLES Final Resul t [facility] [address] [place] [address], [place] [phone] * (ABNORMAL) Complete blood count (05/14/2024 6:06 AM EDT) WBC 8.8 4.8 - 10.8 K/mcL LAB HEMETOLOGY METHOD 05/14/2024 10:16 AM [facility] RBC 3.50(L) 3.80 - 4.80 M/mcL LAB HEMETOLOGY METHOD 05/14/2024 10:16 AM [facility] Hemoglobin 9.4(L) 11.5 - 16.0 g/dL LAB HEMETOLOGY METHOD 05/14/2024 10:16 AM [facility] Hematocrit 30.4(L) 35.0 - 47.0 % LAB HEMETOLOGY METHOD 05/14/2024 10:16 AM [facility] MCV 85.9 79.0 - 98.0 FL LAB HEMETOLOGY METHOD 05/14/2024 10:16 AM [facility] MCH 26.6(L) 27.0 - 32.0 pcg LAB HEMETOLOGY METHOD 05/14/2024 10:16 AM [facility] MCHC 30.9(L) 32.0 - 37.0 g/dL LAB HEMETOLOGY METHOD 05/14/2024 10:[address] [facility] RDW 14.6 11.0 - 15.0 % LAB HEMETOLOGY METHOD 05/14/2024 10:[address] [facility] Platelets 275 130 - 400 K/mcL LAB HEMETOLOGY METHOD 05/14/2024 10:[address] [facility] MPV 10.1 7.0 - 11.0 FL LAB HEMETOLOGY METHOD 05/14/2024 10:[address] [facility] NRBC 0.0 <1.0 % LAB HEMETOLOGY METHOD 05/14/2024 10:[address] [facility] NRBC Absolute 0.00 <0.10 K/mcL LAB HEMETOLOGY METHOD 05/14/2024 10:[address] [facility] Blood Venous blood specimen / Unknown Venipuncture / Unknown 05/14/2024 6:06 AM EDT 05/14/2024 9:53 AM EDT us Matias Bowling MD LAB BLOOD ORDERABLES Final Resul t [facility] [address] [place] [address], documented in this encounter Visit Diagnoses Diagnosis Essential (primary) hypertension Unspecified essential hypertension documented in this encounter Additional Health Concerns Infection Onset Date Last Indicated Resolved Time Gastrointestinal Rule-Out 04/28/2024 04/27/2024 7:06 PM EDT C. difficile 05/29/2024 05/29/2024 06/22/2024 7:04 PM EDT C. difficile Rule-Out 05/30/2024 05/29/20242024 9:47 AM EDT documented as of this encounter Care Teams Call Center Analyst Relationship Specialty Start Date End Date Matias Bowling MD [address] [place] [address] PCP - General Family Medicine 04/16/24 documented as of this encounter
--- OUTSIDE RECORDS SUMMARY | 2024-12-15 17:10 | XMS_ITS | Encounter Summary ---
Author Organization [facility] Address [address] [place] [address] Care Team Providers Care Special Services Supervisor Name Role Phone Matias Bowling MD Primary Care Provider [phone] Encounter Details Date Type Department Care Team (Late st Contact Info) Description 05/20/2024 Lab Requisition [facility] - Main Lab [address] [place] [address] Matias Bowling MD 38 [facility] [address] [place], [address] Essential (primary) hypertension Social History [...] LAB CHEMISTRY METHOD 05/21/2024 11:29 AM EDT [facility] Potassium 5.9(H) 3.5 - 5.5 mmol/L LAB CHEMISTRY METHOD 05/21/2024 11:29 AM EDT [facility] Chloride 102 96 - 110 mmol/L LAB CHEMISTRY METHOD 05/21/2024 11:29 AM [facility] CO2 27 21 - 32 mmol/L LAB CHEMISTRY METHOD 05/21/2024 11:29 AM [facility] Anion Gap 7 3 - 11 LAB CHEMISTRY METHOD 05/21/2024 11:29 AM [facility] Glucose 152(H) 70 - 100 mg/dL LAB CHEMISTRY METHOD 05/21/2024 11:29 AM [facility] BUN 21 5 - 25 mg/dL LAB CHEMISTRY METHOD 05/21/2024 11:29 AM [facility] Creatinine 2.30(H) 0.50 - 1.10 mg/dL LAB CHEMISTRY METHOD 05/21/2024 11:29 AM [facility] eGFR 23(L) >=60 mL/min/1. 73m2 LAB CHEMISTRY METHOD 05/21/2024 11:29 AM [facility] Comment:Calculation based on the Chronic Kidney Disease Epidemiology Collaboration (CKD-EPI) equation refit without adjustment for race. BUN/Creatinine Ratio 9.1 LAB CHEMISTRY METHOD 05/21/2024 11:29 AM [facility] Calcium 8.9 8.5 - 10.5 mg/dL LAB CHEMISTRY METHOD 05/21/2024 11:29 AM [facility] AST (SGOT) 23 10 - 42 unit/L LAB CHEMISTRY METHOD 05/21/2024 11:29 AM [facility] ALT (SGPT) 30 10 - 60 unit/L LAB CHEMISTRY METHOD 05/21/2024 11:29 AM [facility] Alkaline Phosphatase 174(H) 42 - 121 unit/L LAB CHEMISTRY METHOD 05/21/2024 11:29 AM [facility] Total Protein 6.7 6.0 - 8.0 g/dL LAB CHEMISTRY METHOD 05/21/2024 11:29 AM [facility] Albumin 3.3 3.2 - 5.0 g/dL LAB CHEMISTRY METHOD 05/21/2024 11:29 AM EDT [facility] Total Bilirubin 0.3 0.0 - 1.4 mg/dL LAB CHEMISTRY METHOD 05/21/2024 11:29 AM EDT [facility] Blood Venous blood specimen / Unknown Venipuncture / Unknown 05/21/2024 5:43 AM EDT 05/21/2024 9:27 AM EDT us Matias Bowling MD LAB BLOOD ORDERABLES Final Resul t [facility] [address] [place] [address], [place] [phone] * (ABNORMAL) Complete blood count (05/21/2024 5:43 AM EDT) WBC 10.3 4.8 - 10.8 K/mcL LAB HEMETOLOGY METHOD 05/21/2024 10:10 AM T [facility] RBC 3.50(L) 3.80 - 4.80 M/mcL LAB HEMETOLOGY METHOD 05/21/2024 10:10 AM [facility] Hemoglobin 9.0(L) 11.5 - 16.0 g/dL LAB HEMETOLOGY METHOD 05/21/2024 10:10 AM T [facility] Hematocrit 30.0(L) 35.0 - 47.0 % LAB HEMETOLOGY METHOD 05/21/2024 10:10 AM EDT [facility] MCV 86.5 79.0 - 98.0 FL LAB HEMETOLOGY METHOD 05/21/2024 10:10 AM [facility] MCH 25.9(L) 27.0 - 32.0 pcg LAB HEMETOLOGY METHOD 05/21/2024 10:10 AM T [facility] MCHC 30.0(L) 32.0 - 37.0 g/dL LAB HEMETOLOGY METHOD 05/21/2024 10:10 AM EDT [facility] RDW 15.1(H) 11.0 - 15.0 % LAB HEMETOLOGY METHOD 05/21/2024 10:10 AM EDT [facility] Platelets 272 130 - 400 K/mcL LAB HEMETOLOGY METHOD 05/21/2024 10:10 AM EDT [facility] MPV 10.2 7.0 - 11.0 FL LAB HEMETOLOGY METHOD 05/21/2024 10:10 AM EDT [facility] NRBC 0.0 <1.0 % LAB HEMETOLOGY METHOD 05/21/2024 10:10 AM EDT [facility] NRBC Absolute 0.00 <0.10 K/mcL LAB HEMETOLOGY METHOD 05/21/2024 10:10 AM EDT [facility] Blood Venous blood specimen / Unknown Venipuncture / Unknown 05/21/2024 5:43 AM EDT 05/21/2024 9:27 AM EDT us Matias Bowling MD LAB BLOOD ORDERABLES Final Resul t [facility] [address] [place] [address], documented in this encounter Visit Diagnoses Diagnosis Essential (primary) hypertension Unspecified essential hypertension documented in this encounter Additional Health Concerns Infection Onset Date Last Indicated Resolved Time Gastrointestinal Rule-Out 04/28/2024 04/27/2024 7:06 PM EDT C. difficile 05/29/2024 05/29/2024 06/22/2024 7:04 PM EDT C. difficile Rule-Out 05/30/2024 05/29/20242024 9:47 AM EDT documented as of this encounter Care Teams Special Services Supervisor Relationship Specialty Start Date End Date Matias Bowling MD [address] [place] [address] PCP - General Family Medicine 04/16/24 documented as of this encounter
--- OUTSIDE RECORDS SUMMARY | 2024-12-15 17:10 | XMS_ITS | Clinical Summary ---
Author Organization [address] Address [address] [place] [address] Phone Care Team Providers Care Office Clerk Routine Name Role Phone Matias Bowling MD Primary Care Provider [phone] Social History Tobacco Use Types Packs/Day Years [...] (1 - Tdap) 12/29/1974 Pneumococcal Vaccine: 50+ Ye ars (1 of 1 - PCV) 12/29/2005 Zoster Vaccines (1 of 2) 12/29/2005 Depression Screening 02/26/2024 Cholesterol Screening (Lipid Panel) 04/16/2024 Falls Risk Assessment 04/16/2024 Hepatitis C Screening 04/16/2024 Medicare Annual Wellness Visit 04/16/2024 Osteoporosis Screening (Bone Density Screening) 04/16/2024 Social Influencers of Health Screening 04/16/2024 COVID-19 Vaccine ( - 2023-2 5 season) 2024 Influenza Vaccine (#1) 2024 Colorectal Cancer Screening: Stool Based Tests (FOBT/FIT) 05/29/2025 05/29/2024 RSV Immunization Adult Patie nts (1 - 1-dose 75+ series) 12/29/2030 HIB [...] to complete this topic RSV Immunization Patients Un nena 20 months Aged Out No longer eligible b ased on patient's age to complete this topic Varicella Vaccines Aged Out No longer eligible based on patient's age to complete this topic Procedures Procedure Name Priority Date/Time Associated Diagnosis Comments OCCULT BLOOD STOOL, GUAIAC Routine 05/29/2024 1:50 PM EDT Diarrhea, unspecified from Last 3 Months or Most Recently Relevant to Health Maintenance Results * Occult blood stool, guaiac (05/29/2024 1:50 PM EDT) Occult Blood, Stool #1 Negative Negative 05/30/2024 9:30 AM EDT [facility] Stool Rectum structure / Unknown Non-blood Collection / Unknown 05/29/2024 1:50 PM EDT 05/30/2024 8:36 AM EDT Matias Bowling MD LAB BODY FLUIDS AND STOOLS ORDER MARGARET Final Result [facility] [address] [place] [address], from Last 3 Months or Most Recently Relevant to Health Maintenance Insurance [facility] MEDICARE Member Subscriber Plan / Payer (Ef fective 2022-Present) Name:Trish Hunter Relation to Subscriber:Self Name:Trish Hunter Payer ID:[id number] Group ID:[id number] Type:Not on file Address: [address] [place] [address] Care Teams Office Clerk Routine Relationship Specialty Start Date End Date Matias Bowling MD [address] [address] PCP - General Family Medicine 04/16/24
--- OUTSIDE RECORDS SUMMARY | 2024-12-15 17:10 | XMS_ITS | Encounter Summary ---
Author Organization [facility] Address [address] [place] [address] Care Team Providers Care Social Services Coordinator Name Role Phone Matias Bowling MD Primary Care Provider [phone] Encounter Details Date Type Department Care Team (Late st Contact Info) Description 04/29/2024 Lab Requisition [facility] - Main Lab 299 [facility] [place] [address] Matias Bowling MD 38 [facility] [address] [facility] [address] Essential (primary) hypertension Social History [...] documented as of this encounter Care Teams Social Services Coordinator Relationship Specialty Start Date End Date Matias Bowling MD 38 [place] [facility] [address] [place] [address] PCP - General Family Medicine 04/16/24 documented as of this encounter
--- OUTSIDE RECORDS SUMMARY | 2024-12-15 17:11 | XMS_ITS | Encounter Summary ---
Author Organization [facility] Address [address] [place] [address] Care Team Providers Care Minilab Operator Name Role Phone Matias Bowling MD Primary Care Provider [phone] Encounter Details Date Type Department Care Team (Late st Contact Info) Description 05/22/2024 Lab Requisition [facility] - Main Lab [address] [place] [address] Matias Bowling MD 38 [facility] [address] [place], [address] 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 classified elsewhere (CMS/HCC [...] LAB CHEMISTRY METHOD 05/22/2024 11:37 AM EDT [facility] Potassium 5.2 3.5 - 5.5 [...] Resul t [facility] [address] [place] [address], * (ABNORMAL) Complete blood count (05/22/2024 8:23 AM EDT) [facility] WBC 9.8 4.8 - 10.8 K/mcL LAB [...] 11:21 AM [facility] NRBC Absolute 0.00 <0.10 K/mcL LAB HEMETOLOGY METHOD 05/22/2024 11:21 AM EDT [facility] Blood Venous blood specimen / Unknown Venipuncture / Unknown 05/22/2024 8:23 AM EDT 05/22/2024 10:31 AM EDT us Matias Bowling MD LAB BLOOD ORDERABLES Final Resul t [facility] [address] [place] [address], documented in this encounter Visit Diagnoses Diagnosis 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 classified elsewhere (CMS/HCC V24, CMS/HCC V28) Hyperlipidemia, unspecified documented in this encounter Additional Health Concerns Infection Onset Date Last Indicated Resolved Time Gastrointestinal Rule-Out 04/28/2024 04/27/2024 7:06 PM EDT C. difficile 05/29/2024 05/29/2024 06/22/2024 7:04 PM EDT C. difficile Rule-Out 05/30/2024 05/29/20242024 9:47 AM EDT documented as of this encounter Care Teams Minilab Operator Relationship Specialty Start Date End Date Matias Bowling MD [address] [place] [address] [address] [place] [address] PCP - General Family Medicine 04/16/24 documented as of this encounter
--- OUTSIDE RECORDS SUMMARY | 2024-12-15 17:11 | XMS_ITS | Encounter Summary ---
Author Organization [facility] Address [address] [place] [address] Care Team Providers Care Communication Studies Professor Name Role Phone Matias Bowling MD Primary Care Provider [phone] Encounter Details Date Type Department Care Team (Late st Contact Info) Description 05/27/2024 Lab Requisition [facility] - Main Lab [address] [place] [address] Matias Bowling MD 38 [facility] 204 [place], [address] Essential (primary) hypertension Social History Tobacco [...] LAB CHEMISTRY METHOD 05/28/2024 10:13 AM EDT [facility] Potassium 4.2 3.5 - 5.5 mmol/L LAB CHEMISTRY METHOD 05/28/2024 10:13 AM EDT [facility] Chloride 103 96 - 110 mmol/L LAB CHEMISTRY METHOD 05/28/2024 10:13 AM [facility] CO2 28 21 - 32 mmol/L LAB CHEMISTRY METHOD 05/28/2024 10:13 AM [facility] Anion Gap 6 3 - 11 LAB CHEMISTRY METHOD 05/28/2024 10:13 AM [facility] Glucose 141(H) 70 - 100 mg/dL LAB CHEMISTRY METHOD 05/28/2024 10:13 AM [facility] BUN 13 5 - 25 mg/dL LAB CHEMISTRY METHOD 05/28/2024 10:13 AM [facility] Creatinine 1.21(H) 0.50 - 1.10 mg/dL LAB CHEMISTRY METHOD 05/28/2024 10:13 AM [facility] eGFR 49(L) >=60 mL/min/1. 73m2 LAB CHEMISTRY METHOD 05/28/2024 10:13 AM [facility] Comment:Calculation based on the Chronic Kidney Disease Epidemiology Collaboration (CKD-EPI) equation refit without adjustment for race. BUN/Creatinine Ratio 10.7 LAB CHEMISTRY METHOD 05/28/2024 10:13 AM [facility] Calcium 8.6 8.5 - 10.5 mg/dL LAB CHEMISTRY METHOD 05/28/2024 10:13 AM [facility] AST (SGOT) 12 10 - 42 unit/L LAB CHEMISTRY METHOD 05/28/2024 10:13 AM [facility] ALT (SGPT) 19 10 - 60 unit/L LAB CHEMISTRY METHOD 05/28/2024 10:13 AM [facility] Alkaline Phosphatase 147(H) 42 - 121 unit/L LAB CHEMISTRY METHOD 05/28/2024 10:13 AM [facility] Total Protein 6.3 6.0 - 8.0 g/dL LAB CHEMISTRY METHOD 05/28/2024 10:13 AM [facility] Albumin 3.1(L) 3.2 - 5.0 g/dL LAB CHEMISTRY METHOD 05/28/2024 10:13 AM EDT [facility] Total Bilirubin 0.2 0.0 - 1.4 mg/dL LAB CHEMISTRY METHOD 05/28/2024 10:13 AM [facility] Blood Venous blood specimen / Unknown Venipuncture / Unknown 05/28/2024 5:02 AM EDT 05/28/2024 9:04 AM EDT us Matias Bowling MD LAB BLOOD ORDERABLES Final Resul t [facility] [address] [place] [address], [place] [phone] * (ABNORMAL) Complete blood count (05/28/2024 5:02 AM EDT) WBC 10.3 4.8 - 10.8 K/mcL LAB HEMETOLOGY METHOD 05/28/2024 9:26 AM [facility] RBC 3.30(L) 3.80 - 4.80 M/mcL LAB HEMETOLOGY METHOD 05/28/2024 9:26 AM [facility] Hemoglobin 8.7(L) 11.5 - 16.0 g/dL LAB HEMETOLOGY METHOD 05/28/2024 9:26 AM [facility] Hematocrit 28.7(L) 35.0 - 47.0 % LAB HEMETOLOGY METHOD 05/28/2024 9:26 AM [facility] MCV 87.0 79.0 - 98.0 FL LAB HEMETOLOGY METHOD 05/28/2024 9:26 AM [facility] MCH 26.4(L) 27.0 - 32.0 pcg LAB HEMETOLOGY METHOD 05/28/2024 9:26 AM [facility] MCHC 30.3(L) 32.0 - 37.0 g/dL LAB HEMETOLOGY METHOD 05/28/2024 9:26 AM EDT [facility] RDW 14.9 11.0 - 15.0 % LAB HEMETOLOGY METHOD 05/28/2024 9:26 AM EDT [facility] Platelets 281 130 - 400 K/mcL LAB HEMETOLOGY METHOD 05/28/2024 9:26 AM EDT [facility] MPV 10.2 7.0 - 11.0 FL LAB HEMETOLOGY METHOD 05/28/2024 9:26 AM EDT [facility] NRBC 0.0 <1.0 % LAB HEMETOLOGY METHOD 05/28/2024 9:26 AM EDT [facility] NRBC Absolute 0.00 <0.10 K/mcL LAB HEMETOLOGY METHOD 05/28/2024 9:26 AM EDT [facility] Blood Venous blood specimen / Unknown Venipuncture / Unknown 05/28/2024 5:02 AM EDT 05/28/2024 9:04 AM EDT us Matias Bowling MD LAB BLOOD ORDERABLES Final Resul t [facility] [address] [place] [address], documented in this encounter Visit Diagnoses Diagnosis Essential (primary) hypertension Unspecified essential hypertension documented in this encounter Additional Health Concerns Infection Onset Date Last Indicated Resolved Time C. difficile 05/29/2024 05/29/2024 06/22/2024 7:04 PM EDT C. difficile Rule-Out 05/30/2024 05/29/20242024 9:47 AM EDT documented as of this encounter Care Teams Communication Studies Professor Relationship Specialty Start Date End Date Matias Bowling MD [address] [place] [address] PCP - General Family Medicine 04/16/24 documented as of this encounter
--- OUTSIDE RECORDS SUMMARY | 2024-12-15 17:11 | XMS_ITS | Encounter Summary ---
Author Organization [facility] Address [address] [place] [address] Care Team Providers Care Coat Operator Insulator Name Role Phone Matias Bowling MD Primary Care Provider [phone] Encounter Details Date Type Department Care Team (Late st Contact Info) Description 06/10/2024 Lab Requisition [facility] - Main Lab 299 [facility] [place] [address] Matias Bowling MD 38 [facility] 204 [facility] [address] Essential (primary) hypertension Social History Tobacco [...] documented as of this encounter Care Teams Coat Operator Insulator Relationship Specialty Start Date End Date Matias Bowling MD 38 [facility] 204 [place] [address] PCP - General Family Medicine 04/16/24 documented as of this encounter
== END 2024-12-15 13:13 | disposition home or self-care (01) ==
LOC: HO.MAMMO 13:12
PROVIDERS: PCP Family Medicine; Visit Provider Family Medicine
DX: Z13.820 Encounter for screening for osteoporosis (principal); Z78.0 Asymptomatic menopausal state
CPT/HCPCS: 77080

== ENCOUNTER → 2024-12-15 13:30 | Outpatient (BNV) | payer OTHER, SELFPAY | PROVIDERS: PCP Family Medicine; Visit Provider Radiology Diagnostic Radiology | DX: E28.39 Other primary ovarian failure (principal) | CPT/HCPCS: 77080 ==

== ENCOUNTER → 2025-01-06 20:00 | Outpatient (BNV) | payer OTHER, SELFPAY | PROVIDERS: PCP Family Medicine; Visit Provider Internal Medicine | DX: G47.33 Obstructive sleep apnea (adult) (pediatric) (principal); R06.83 Snoring | CPT/HCPCS: 95810 ==

== ENCOUNTER → 2025-01-06 20:59 | Outpatient (REF) | payer OTHER, SELFPAY ==
--- OUTSIDE RECORDS SUMMARY | 2025-01-06 21:03 | XMS_ITS | Encounter Summary ---
Author Organization [employer] Address [address] [place] [address] 7[address] [place] [address] Care Team Providers Care Clinical Appeals Auditor Name Role Phone Ethel Chase DO Primary Care Provider [phone] Vaishnavi Laird PharmD Unavailable [phone] Reason for Visit * Reason Onset Date Comments Nurse Triage 04/16/2023 Encounter Details Date Type Department Care Team ([facility] st Contact Info) Description 04/16/2023 Telephone [facility] [address] [place] [address] Ethel Chase DO [address] [place] [address] Nurse Triage Social History Tobacco Use Types [...] PM EST Triage call regarding message from [facility] see below. Pt answers call , [employer] Physician ID [id number], but, Pt is speaking afghan well. Pt reports only high BS was [...] if any further problem to come to [facility] for provider to see Pt [...] questions - You become worse [facility] patient has extreme high blood sugars: 355 Saturday Down to the 250 today Advises that her glucose monitor keeps beeping, [facility] Nurse advised that pt refused urgent prison visit but was advised to go to the urgent. Please contact pt [phone] Nigerien Speaker * Telephone Encounter - Tramainehernan Pawel Grider - 04/16/2023 4:18 PM EST Tc from [facility] reporting patient has extreme high blood sugars: 355 Saturday Down to the 250 today Advises that her glucose monitor keeps beeping, [facility] Nurse advised that pt refused urgent prison visit but was advised to go to the urgent. Please contact pt [phone] Nigerien Speaker documented in this encounter Plan of Treatment Upcoming Encounters Date Type Department Care Team (Late st Contact Info) Description 01/27/2025 10:00 AM EST Medication Management [address] [address] Vaishnavi Laird, PharmD [address] [place] [address] 03/03/2025 9:00 AM EST Clinical Support [address] [address] Suad Wilson, MARY documented as of this encounter Goals Goal Patient Goal Type Associated Problems Recent Progress Patient-Stated? Author Hemoglobin A1c < 7 Result Component 8.4( 9:14 AM EDT) No PuiaChristoferVaishnavi, PharmD Record your blood sugar as directed Result Component No PuiaChristoferVaishnavi, PharmD documented as of this encounter Visit Diagnoses Not on filedocumented in this encounter Additional Health Concerns Assessment Noted Time PHQ-9 Depression Total Score: 0 02/08/20 10:43 AM EST documented as of this encounter Care Teams Clinical Appeals Auditor Relationship Specialty Start Date End Date Ethel Chase DO [address] [place] [address] PCP - General Family Medicine 10/12/13 Vaishnavi Laird PharmD [address] [place] [address] Pharmacist Internal Medicine 02/07/23 [id number] 06/11/24 11/18/24 documented as of this encounter
--- OUTSIDE RECORDS SUMMARY | 2025-01-06 21:03 | XMS_ITS | Encounter Summary ---
Author Organization [employer] Address [address] [place] [address] 7t [place] [address] Care Team Providers Care Manager Web Application Name Role Phone Ethel Chase DO Primary Care Provider [phone] Vaishnavi Laird PharmD Unavailable [phone] Reason for Visit * Reason Onset Date Comments Hospital Follow-up 06/08/2024 Encounter Details Date Type Department Care Team (Late st Contact Info) Description 06/08/2024 Telephone [facility]INE [address] [place] [address] Ethel Chase DO [address] [place] [address] Hospital Follow-up Social History Tobacco Use Types [...] from pt requesting a HDF appt. Hospital: [facility] Date of admission: 04/10 to [facility] and 04/15 admitted into [facility] Discharge date: 06/04/24 Diagnosed: Left leg fracture post simpson *Send message to [place] Clinical Care Coordinators Contact pt at [phone] documented in this encounter Plan of Treatment Upcoming Encounters Date Type Department Care Team ([facility] st Contact Info) Description 01/27/2025 10:00 AM EST Medication Management [facility]INE [address] [place] [address] Vaishnavi Laird, PharmD [address] [place] [address] 03/03/2025 9:00 AM EST Clinical Support [facility] [address] [place] [address] Suad Wilson, RN documented as of this encounter Goals Goal Patient Goal Type Associated Problems Recent Progress Patient-Stated? Author Hemoglobin A1c < 7 Result Component 8.4(10/22/202 5 9:14 AM EDT) No Vaishnavi Laird, PharmD Record your blood sugar as directed Result Component No Vaishnavi Laird, PharmD documented as of this encounter Visit Diagnoses Not on filedocumented in this encounter Additional Health Concerns Assessment Noted Time PHQ-9 Depression Total Score: 8 10/18/19 24 11:35 AM EDT documented as of this encounter Care Teams Manager Web Application Relationship Specialty Start Date End Date Ethel Chase DO [address] [place] [address] PCP - General Family Medicine 10/12/13 Vaishnavi Laird, PharmD [address] [place] [address] Pharmacist Internal Medicine 02/07/23 [id number] 06/11/24 11/18/24 documented as of this encounter
--- OUTSIDE RECORDS SUMMARY | 2025-01-06 21:03 | XMS_ITS | Encounter Summary ---
Author Organization [employer] Address [address] [place] [address] 7t [place] [address] Care Team Providers Care Video Photographer Name Role Phone Ethel Chase DO Primary Care Provider [phone] Vaishnavi Laird PharmD Unavailable [phone] Reason for Visit * Reason Comments Med Refill Encounter Details Date Type Department Care Team ([facility] st Contact Info) Description 11/14/2024 Refill [facility] [address] [place] [address] Ethel Chase DO [address] [place] [address] Social History Tobacco Use Types Packs/Day Years [...] Description 01/27/2025 10:00 AM EST Medication Management [address] [address] Puia, Vaishnavi, PharmD [address] [place] [address] 03/03/2025 9:00 AM EST Clinical Support [address] [address] Suad Wilson RN documented as of this encounter Goals Goal Patient Goal Type Associated Problems Recent Progress Patient-Stated? Author Hemoglobin A1c < 7 Result Component 8.4( 9:14 AM EDT) No Puia, Vaishnavi, PharmD Record your blood sugar as directed Result Component No Puia, Vaishnavi, PharmD documented as of this encounter Visit Diagnoses Not on filedocumented in this encounter Additional Health Concerns Assessment Noted Time PHQ-9 Depression Total Score: 0 09/18/19 25 12:29 PM EDT documented as of this encounter Care Teams Video Photographer Relationship Specialty Start Date End Date Ethel Chase DO [address] [place] [address] PCP - General Family Medicine 10/12/13 Vaishnavi Laird, BrianD [address] [place] [address] Pharmacist Internal Medicine 02/07/23 [id number] 06/11/24 11/18/24 documented as of this encounter
--- OUTSIDE RECORDS SUMMARY | 2025-01-06 21:03 | XMS_ITS | Encounter Summary ---
Author Organization [email or web address] Address [address] [place] [address] 7t [place] [address] Care Team Providers Care Marketing Development Representative Name Role Phone Ethel Chase DO Primary Care Provider PuVaishnavi thorpe PharmD Unavailable [phone] Reason for Visit * Reason Comments Med Refill Encounter Details Date Type Department Care Team (Late st Contact Info) Description 04/06/2022 Refill [facility] [address] [place] [address] Ethel Chase DO [address] [place] [address] Other chronic pain Social History Tobacco Use [...] Description 01/27/2025 10:00 AM EST Medication Management [facility] [address] [place] [address] Puia, Vaishnavi, PharmD [address] [place] [address] 03/03/2025 9:00 AM EST Clinical Support [facility] [address] [place] [address] Suad Wilson, RN documented as of this encounter Visit Diagnoses Diagnosis Other chronic pain documented in this encounter Additional Health Concerns Assessment Noted Time PHQ-9 Depression Total Score: 0 02/08/20 22 10:43 AM EST documented as of this encounter Care Teams Marketing Development Representative Relationship Specialty Start Date End Date Ethel Chase DO [address] [place] [address] PCP - General Family Medicine 10/12/13 Vaishnavi Laird PharmD [address] [place] [address] Pharmacist Internal Medicine 02/07/23 [id number] 06/11/24 11/18/24 documented as of this encounter
--- OUTSIDE RECORDS SUMMARY | 2025-01-06 21:03 | XMS_ITS | Encounter Summary ---
Author Organization Address [address] [place] [address] Care Team Providers Care Latin Teacher Name Role Phone Matias Bowling MD Primary Care Provider [phone] Encounter Details Date Type Department Care Team (Late st Contact Info) Description 04/23/2024 Lab Requisition [facility] - Main Lab [address] [place] [address] Matias Bowling MD 38 [facility] [place] [address] [place], [address] Essential (primary) hypertension Social History Tobacco [...] LAB CHEMISTRY METHOD 04/23/2024 10:18 AM EST [facility] Potassium 4.4 3.5 - 5.5 mmol/L LAB CHEMISTRY METHOD 04/23/2024 10:18 AM EST [facility] Chloride 109 96 - 110 mmol/L LAB CHEMISTRY METHOD 04/23/2024 10:18 AM [facility] CO2 25 21 - 32 mmol/L LAB CHEMISTRY METHOD 04/23/2024 10:18 AM [facility] Anion Gap 9 3 - 11 LAB CHEMISTRY METHOD 04/23/2024 10:18 AM [facility] Glucose 114(H) 70 - 100 mg/dL LAB CHEMISTRY METHOD 04/23/2024 10:18 AM [facility] BUN 17 5 - 25 mg/dL LAB CHEMISTRY METHOD 04/23/2024 10:18 AM [facility] Creatinine 1.01 0.50 - 1.10 mg/dL LAB CHEMISTRY METHOD 04/23/2024 10:18 AM [facility] eGFR 61 >=60 mL/min/1. 73m2 LAB CHEMISTRY METHOD 04/23/2024 10:18 AM [facility] Comment:Calculation based on the Chronic Kidney Disease Epidemiology Collaboration (CKD-EPI) equation refit without adjustment for race. BUN/Creatinine Ratio 16.8 LAB CHEMISTRY METHOD 04/23/2024 10:18 AM [facility] Calcium 9.4 8.5 - 10.5 mg/dL LAB CHEMISTRY METHOD 04/23/2024 10:18 AM [facility] AST (SGOT) 18 10 - 42 unit/L LAB CHEMISTRY METHOD 04/23/2024 10:18 AM [facility] ALT (SGPT) 25 10 - 60 unit/L LAB CHEMISTRY METHOD 04/23/2024 10:18 AM [facility] Alkaline Phosphatase 165(H) 42 - 121 unit/L LAB CHEMISTRY METHOD 04/23/2024 10:18 AM [facility] Total Protein 7.0 6.0 - 8.0 g/dL LAB CHEMISTRY METHOD 04/23/2024 10:18 AM [facility] Albumin 3.3 3.2 - 5.0 g/dL LAB CHEMISTRY METHOD 04/23/2024 10:18 AM [facility] Total Bilirubin 0.4 0.0 - 1.4 mg/dL LAB CHEMISTRY METHOD 04/23/2024 10:18 AM [facility] Blood Venous blood specimen / Unknown Venipuncture / Unknown 04/23/2024 5:04 AM EST 04/23/2024 8:47 AM EST us Matias Bowling MD LAB BLOOD ORDERABLES Final Resul t [facility] [address] [place] [address], * (ABNORMAL) Complete blood count (04/23/2024 5:04 AM EST) WBC 8.9 4.8 - 10.8 K/mcL LAB HEMETOLOGY METHOD 04/23/2024 9:28 AM [facility] RBC 3.40(L) 3.80 - 4.80 M/mcL LAB HEMETOLOGY METHOD 04/23/2024 9:28 AM [facility] Hemoglobin 9.2(L) 11.5 - 16.0 g/dL LAB HEMETOLOGY METHOD 04/23/2024 9:28 AM [facility] Hematocrit 30.3(L) 35.0 - 47.0 % LAB HEMETOLOGY METHOD 04/23/2024 9:28 AM [facility] MCV 88.1 79.0 - 98.0 FL LAB HEMETOLOGY METHOD 04/23/2024 9:28 AM [facility] MCH 26.7(L) 27.0 - 32.0 pcg LAB HEMETOLOGY METHOD 04/23/2024 9:28 AM [facility] MCHC 30.4(L) 32.0 - 37.0 g/dL LAB HEMETOLOGY METHOD 04/23/2024 9:28 AM EST [facility] RDW 14.6 11.0 - 15.0 % LAB HEMETOLOGY METHOD 04/23/2024 9:28 AM [facility] Platelets 333 130 - 400 K/mcL LAB HEMETOLOGY METHOD 04/23/2024 9:28 AM [facility] MPV 9.8 7.0 - 11.0 FL LAB HEMETOLOGY METHOD 04/23/2024 9:28 AM [facility] NRBC 0.0 <1.0 % LAB HEMETOLOGY METHOD 04/23/2024 9:28 AM [facility] NRBC Absolute 0.00 <0.10 K/mcL LAB HEMETOLOGY METHOD 04/23/2024 9:28 AM [facility] Blood Venous blood specimen / Unknown Venipuncture / Unknown 04/23/2024 5:04 AM EST 04/23/2024 8:47 AM EST us Matias Bowling MD LAB BLOOD ORDERABLES Final Resul t [facility] [address] [place] [address], documented in this encounter Visit Diagnoses Diagnosis Essential (primary) hypertension Unspecified essential hypertension documented in this encounter Additional Health Concerns Infection Onset Date Last Indicated Resolved Time Gastrointestinal Rule-Out 04/28/2024 04/27/2024 7:06 PM EDT C. difficile 05/29/2024 05/29/2024 06/22/2024 7:04 PM EDT C. difficile Rule-Out 05/30/2024 05/29/20242024 9:47 AM EDT documented as of this encounter Care Teams Latin Teacher Relationship Specialty Start Date End Date Matias Bowling MD [address] [place] [address] PCP - General Family Medicine 04/16/24 documented as of this encounter
--- OUTSIDE RECORDS SUMMARY | 2025-01-06 21:03 | XMS_ITS | Encounter Summary ---
Author Organization [employer] Address [address] [place] [address] 7[address] [place] [address] Care Team Providers Care Cardiothoracic Anesthesia Technician Name Role Phone Ethel Chase DO Primary Care Provider Vaishnavi Laird PharmD Unavailable [phone] Reason for Visit * Reason Comments Med Refill Encounter Details Date Type Department Care Team ([facility] st Contact Info) Description 06/07/2022 Refill [facility] MEDICINE [address] [place] [address] Ethel Chase DO [address] [place] [address] Other chronic pain Social History Tobacco Use [...] Description 01/27/2025 10:00 AM EST Medication Management [address] [address] Vaishnavi Laird PharmD [address] [place] [address] 03/03/2025 9:00 AM EST Clinical Support [address] [address] Suad Wilson RN documented as of this encounter Visit Diagnoses Diagnosis Other chronic pain documented in this encounter Additional Health Concerns Assessment Noted Time PHQ-9 Depression Total Score: 0 02/08/20 10:43 AM EST documented as of this encounter Care Teams Cardiothoracic Anesthesia Technician Relationship Specialty Start Date End Date Ethel Chase DO [address] [place] [address] PCP - General Family Medicine 10/12/13 Vaishnavi Laird PharmD [address] [place] [address] Pharmacist Internal Medicine 02/07/23 [id number] 06/11/24 11/18/24 documented as of this encounter
--- OUTSIDE RECORDS SUMMARY | 2025-01-06 21:03 | XMS_ITS | Encounter Summary ---
Author Organization [employer] Address [address] [place] [address] 7t [place] [address] Care Team Providers Care Filament Shaper Name Role Phone Ethel Chase DO Primary Care Provider [phone] Vaishnavi Laird PharmD Unavailable [phone] Reason for Visit * Reason Onset Date Comments Nurse Triage 09/14/2024 Encounter Details Date Type Department Care Team ([facility] st Contact Info) Description 09/14/2024 Telephone [facility] MEDICINE [address] [place] [address] Ethel Chase DO [address] [place] [address] Nurse Triage Social History Tobacco Use Types [...] PM EDT Triage call to Milena from [place] [address] Home care. Milena wanted to report Pt BP'S have been higher. Ptis asymptomatic. BP today left arm was 148/96 and right arm 145/96. Pt is taking daily imdur 30mg as prescribed. Pt has a scheduled apt 09/17/24 to address high BP. Pt is also asking about referral toPT. Aviation Maintenance Instructor advised that this information would be forwarded [...] caller accepted this outcome. Contact Milena with [address] care at [phone] documented in this encounter Plan of Treatment Upcoming Encounters Date Type Department Care Team (Late st Contact Info) Description 01/27/2025 10:00 AM EST Medication Management [address] [address] Vaishnavi Laird, BrianD [address] [place] [address] 03/03/2025 9:00 AM EST Clinical Support [address] [address] Suad Wilson RN documented as of this encounter Goals Goal Patient Goal Type Associated Problems Recent Progress Patient-Stated? Author Hemoglobin A1c < 7 Result Component 8.4( 5 9:14 AM EDT) No Vaishnavi Laird, PharmD Record your blood sugar as directed Result Component No Vaishnavi Laird PharmD documented as of this encounter Visit Diagnoses Not on filedocumented in this encounter Additional Health Concerns Assessment Noted Time PHQ-9 Depression Total Score: 8 10/18/19 24 11:35 AM EDT documented as of this encounter Care Teams Filament Shaper Relationship Specialty Start Date End Date Ethel Chase DO [address] [place] [address] PCP - General Family Medicine 10/12/13 Vaishnavi Laird, BrianD [address] [place] [address] Pharmacist Internal Medicine 02/07/23 [id number] 06/11/24 11/18/24 documented as of this encounter
--- OUTSIDE RECORDS SUMMARY | 2025-01-06 21:03 | XMS_ITS | Encounter Summary ---
Author Organization [facility] Address [address] [place] [address] Care Team Providers Care Structures Mechanic Name Role Phone Matias Bowling MD Primary Care Provider [phone] Encounter Details Date Type Department Care Team (Late st Contact Info) Description 05/06/[address] [facility] - Main Lab [address] [place] [address] Matias Bowling MD 38 [facility] [address] [place], [address] Essential (primary) hypertension Social History Tobacco [...] t [facility] [address] [place] [address], [place] [phone] * (ABNORMAL) Complete blood count (05/07/2024 5:12 [...] t [facility] [address] [place] [address], documented in this encounter Visit Diagnoses Diagnosis Essential (primary) hypertension Unspecified essential hypertension documented in this encounter Additional Health Concerns Infection Onset Date Last Indicated Resolved Time Gastrointestinal Rule-Out 04/28/2024 04/27/2024 7:06 PM EDT C. difficile 05/29/2024 05/29/2024 06/22/2024 7:04 PM EDT C. difficile Rule-Out 05/30/2024 05/29/20242024 9:47 AM EDT documented as of this encounter Care Teams Structures Mechanic Relationship Specialty Start Date End Date Matias Bowling MD 38 [facility] [address] [place] [phone] PCP - General Family Medicine 04/16/24 documented as of this encounter
--- OUTSIDE RECORDS SUMMARY | 2025-01-06 21:03 | XMS_ITS | Encounter Summary ---
Author Organization [employer] Address [address] [place] [address] 7t [place] [address] Care Team Providers Care Assembler Billiard Table Name Role Phone Ethel Chase Primary Care Provider PuVaishnavi thorpe PharmD Unavailable [phone] Reason for Visit * Reason Comments Med Refill Encounter Details Date Type Department Care Team (Late st Contact Info) Description 08/10/[address] [facility] MEDICINE [address] [place] [address] [facility] [address] [place] [address] Social History Tobacco Use Types Packs/Day Years [...] Description 01/27/2025 10:00 AM EST Medication Management [facility] [address] [place] [address] Puia, Vaishnavi, PharmD [address] [place] [address] 03/03/2025 9:00 AM EST Clinical Support [facility] [address] [place] [address] Suad Wilson, RN documented as of this encounter Visit Diagnoses Not on filedocumented in this encounter Additional Health Concerns Assessment Noted Time PHQ-9 Depression Total Score: 0 02/08/20 22 10:43 AM EST documented as of this encounter Care Teams Assembler Billiard Table Relationship Specialty Start Date End Date Ethel Chase DO [address] [place] [address] PCP - General Family Medicine 10/12/13 Vaishnavi Laird, Zana [address] [place] [address] Pharmacist Internal Medicine 02/07/23 [id number] 06/11/24 11/18/24 documented as of this encounter
--- OUTSIDE RECORDS SUMMARY | 2025-01-06 21:03 | XMS_ITS | Encounter Summary ---
Author Organization [facility] Address [address] [place] [address] Care Team Providers Care Mechanical Press Operator Name Role Phone Matias Bowling MD Primary Care Provider [phone] Encounter Details Date Type Department Care Team (Late st Contact Info) Description 06/10/2024 Lab Requisition [facility] - Main Lab [address] [facility] [place] [address] Matias Bowling MD 38 [facility] 204 [facility] [address] Essential (primary) hypertension Social History [...] as of this encounter Care Teams Mechanical Press Operator Relationship Specialty Start Date End Date Matias Bowling MD 38 [facility] 204 [place] [address] PCP - General Family Medicine 04/16/24 documented as of this encounter
--- OUTSIDE RECORDS SUMMARY | 2025-01-06 21:03 | XMS_ITS | Encounter Summary ---
Author Organization [employer] Address [address] [place] [address] 7t [place] [address] Care Team Providers Care Road Advisor Name Role Phone Ethel Chase DO Primary Care Provider Vaishnavi Laird PharmD Unavailable [phone] Reason for Visit * Reason Comments Med Refill Encounter Details Date Type Department Care Team ([facility] st Contact Info) Description 03/23/2024 Refill [facility] MEDICINE [address] [place] [address] Ethel Chase DO [address] [place] [address] Other chronic pain Social History Tobacco Use [...] Description 01/27/2025 10:00 AM EST Medication Management [address] [address] Puia, Vaishnavi, PharmD [address] [place] [address] 03/03/2025 9:00 AM EST Clinical Support [address] [address] Suad Wilson RN documented as of this [...] documented as of this encounter Care Teams Road Advisor Relationship Specialty Start Date End Date Ethel Chase DO [address] [place] [address] PCP - General Family Medicine 10/12/13 Vaishnavi Laird, Zana [address] [place] [address] Pharmacist Internal Medicine 02/07/23 [id number] 06/11/24 11/18/24 documented as of this encounter
--- OUTSIDE RECORDS SUMMARY | 2025-01-06 21:03 | XMS_ITS | Encounter Summary ---
Author Organization [employer] Address [address] [place] [address] 7t [place] [address] Care Team Providers Care Agriculture Engineer Name Role Phone Ethel Chase DO Primary Care Provider [phone] Vaishnavi Laird PharmD Unavailable [phone] Reason for Visit * Reason Onset Date Comments Appointment Request 12/03/2024 Encounter Details Date Type Department Care Team ([facility] st Contact Info) Description 12/03/2024 Telephone [facility] MEDICINE [address] [place] [address] Ethel Chase DO [address] [place] [address] Appointment Request Social History Tobacco Use Types [...] encounter Miscellaneous Notes * Telephone Encounter - Alyson Michelle - 12/03/2024 2:04 PM EDT Tc from pt requesting to schedule f/u apt , 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 Pt on recall Contact pt at [phone] documented in this encounter Plan of Treatment Upcoming Encounters Date Type Department Care Team (Late st Contact Info) Description 01/27/2025 10:00 AM EST Medication Management [address] [address] Vaishnavi Laird, PharmD [address] [place] [address] 03/03/2025 9:00 AM EST Clinical Support [address] [address] Suad Wilson, RN documented as of this encounter Goals Goal Patient Goal Type Associated Problems Recent Progress Patient-Stated? Author Hemoglobin A1c < 7 Result Component 8.4( 9:14 AM EDT) No Vaishnavi Laird, PharmD Record your blood sugar as directed Result Component No Vaishnavi Laird PharmD documented as of this encounter Visit Diagnoses Not on filedocumented in this encounter Additional Health Concerns Assessment Noted Time PHQ-9 Depression Total Score: 0 09/18/19 25 12:29 PM EDT documented as of this encounter Care Teams Agriculture Engineer Relationship Specialty Start Date End Date Ethel Chase DO [address] [place] [address] PCP - General Family Medicine 10/12/13 Vaishnavi Laird, BrianD [address] [place] [address] Pharmacist Internal Medicine 02/07/23 documented as of this encounter
--- OUTSIDE RECORDS SUMMARY | 2025-01-06 21:03 | XMS_ITS | Encounter Summary ---
Author Organization [facility] Address [address] [place] [address] Care Team Providers Care Primer Assembler Name Role Phone Matias Bowling MD Primary Care Provider [phone] Encounter Details Date Type Department Care Team (Late st Contact Info) Description 06/03/2024 Lab Requisition [facility] - Main Lab [address] [place] [address] Matias Bowling MD 38 [facility] 204 [place], [address] Essential (primary) hypertension Social History Tobacco [...] Resul t [facility] [address] [place] [address], [place] [phone] * (ABNORMAL) Complete blood count (06/04/2024 5:45 [...] Resul t [facility] [address] [place] [address], documented in this encounter Visit Diagnoses Diagnosis Essential (primary) hypertension Unspecified essential hypertension documented in this encounter Additional Health Concerns Infection Onset Date Last Indicated Resolved Time C. difficile 05/29/2024 05/29/2024 06/22/2024 7:04 PM EDT documented as of this encounter Care Teams Primer Assembler Relationship Specialty Start Date End Date Matias Bowling MD 38 [facility] 204 [place] [address] PCP - General Family Medicine 04/16/24 documented as of this encounter
--- OUTSIDE RECORDS SUMMARY | 2025-01-06 21:03 | XMS_ITS | Encounter Summary ---
Author Organization [employer] Address [address] [place] [address] 7t [place] [address] Care Team Providers Care Heart Surgeon Name Role Phone Ethel Chase DO Primary Care Provider PuVaishnavi thorpe PharmD Unavailable [phone] Reason for Visit * Reason Comments Med Refill Encounter Details Date Type Department Care Team ([facility] Contact Info) Description 10/25/2022 Refill [facility]S [address] [place] [address] Eun Ray MD [address] [place] [address] Other chronic pain Social History Tobacco Use [...] Upcoming Encounters Date Type Department Care Team ([facility] Contact Info) Description 01/27/2025 10:00 AM EST Medication Management [facility] MEDICINE [address] [place] [address] Puia, Vaishnavi, PharmD [address] [place] [address] 03/03/2025 9:00 AM EST Clinical Support [facility] MEDICINE [address] [place] [address] Suad Wilson, RN documented as of this encounter Visit Diagnoses Diagnosis Other chronic pain documented in this encounter Additional Health Concerns Assessment Noted Time PHQ-9 Depression Total Score: 0 02/08/20 10:43 AM EST documented as of this encounter Care Teams Heart Surgeon Relationship Specialty Start Date End Date [place] [address] PCP - General Family Medicine 10/12/13 Vaishnavi Laird PharmD [address] [place] [address] Pharmacist Internal Medicine 02/07/23 [id number] 06/11/24 11/18/24 documented as of this encounter
--- OUTSIDE RECORDS SUMMARY | 2025-01-06 21:03 | XMS_ITS | Encounter Summary ---
Author Organization [employer] Address [address] [place] [address] 7t [place] [address] Care Team Providers Care Staff Nurse Name Role Phone Ethel Chase DO Primary Care Provider [phone] Vaishnavi Laird PharmD Unavailable [phone] Reason for Visit * Reason Onset Date Comments Pre-Op 03/23/2024 Encounter Details Date Type Department Care Team ([facility] st Contact Info) Description 03/23/2024 Telephone [facility] MEDICINE [address] [place] [address] Ethel Chase DO [address] [place] [address] Pre-Op Social History Tobacco Use Types Packs/Day [...] Yes Surgeon's name: Dave Oro Facility name: [facility] Surgeon's office number: [phone] Surgeon's office fax number: [phone] Contact name (person you spoke with): Trish - Pt requesting reschedule 02/13 appt. Last office note from surgeon requested: Yes Send Message to Venus Crowell documented in this encounter Plan of Treatment Upcoming Encounters Date Type Department Care Team (Late st Contact Info) Description 01/27/2025 10:00 AM EST Medication Management [address] [address] Vaishnavi Laird PharmD [address] [place] [address] 03/03/2025 9:00 AM EST Clinical Support [address] [address] Suad Wilson, MARY documented as of this encounter Goals Goal Patient Goal Type Associated Problems Recent Progress Patient-Stated? Author Hemoglobin A1c < 7 Result Component 8.4( 9:14 AM EDT) No Vaishnavi Laird PharmD Record your blood sugar as directed Result Component No Vaishnavi Laird PharmD documented as of this encounter Visit Diagnoses Not on filedocumented in this encounter Additional Health Concerns Assessment Noted Time PHQ-9 Depression Total Score: 8 10/18/19 24 11:35 AM EDT documented as of this encounter Care Teams Staff Nurse Relationship Specialty Start Date End Date Ethel Chase DO [address] [place] [address] PCP - General Family Medicine 10/12/13 Vaishnavi Laird PharmD [address] [place] [address] Pharmacist Internal Medicine 02/07/23 [id number] 06/11/24 11/18/24 documented as of this encounter
--- OUTSIDE RECORDS SUMMARY | 2025-01-06 21:03 | XMS_ITS | Data Portability ---
Author Organization Linkedwith [facility], [employer] [facility] Address [address] [place] [address] Care Team Providers Care Chief Deputy Sheriff Name Role Phone Unavailable OTHER HIM CCA OTHER Assessment Encounter Date Assessment Date Assessment LastModified by Organization Details LastModified Time 09/03/2024 09/03/2024 Ms. Hunter is a 68 yo F with Asthma, Diabetes Mellitus Type 2, Gastroesophageal Reflux Disease (GERD), Hyperlipidemia, Hypertension, Hypothyroidism who is calling today about a breast rash. Per patient and medic, patient has been putting triple antibiotic neosporin on the rash for about 2 weeks. Still painful, burning and warm to the touch. No fevers. Glucose most recently 249. Have been mostly controlled. Sx and exam seem most c/w a fungal infection. Has been attempting topical antibiotic ointment, but exam seems less c/w bacterial superinfection and more fungal. Does have diabetes history, and reports somewhat well controlled glucoses. Doesn't know last a1c. Recommending staying tight with glucose control and then derm f/u. Will prescribe topical antifungal, ketoconzale cream 2% daily and derm f/u advised. I provided real -time medical direction via phone for this encounter, and was available for additional phone based assistance as needed. I have reviewed and agree with the Assessment and Plan as documented by the [employer]. We discussed the diagnostic uncertainty of home visits and the risk associated with this. In this case the patient and I felt this to be an acceptable and reasonable amount of risk given the benefit of avoiding an ED visit. The patient given the opportunity to ask questions. Follow up with primary care was recommended, as needed. Advised if develops CP/severe SOB/turning blue/uncontrolled n/v/d or black/bloody emesis or stool/ AMS/ syncope/ high fever unresponsive to APAP to call 911- verbalized understanding of instruction. [email or web address] Not available 09/03/2024 11:57:20 Plan of Treatment Reminders Order Date Submit Date Provider Last Modified By Organization Details Last Modified Time Details Appointments None recorded. Lab None recorded. Referral None recorded. Procedures None recorded. Surgeries None recorded. Imaging None recorded. Medication Orders ketoconazol e 2 % topical cream 2024 025 [facility], [address] [place] [address], [id number], 08:56:17 Patient TargetsNo targets recorded. Patient InstructionsNo instructions recorded. Reason for Referral None Reported. Medical Equipment None Reported. Allergies Allergen ID Allergen Name Allergen Category Reaction Reaction Severity Criticality Documentation Date Start Date Code Code System Note Provider Name and Address Organization Details Recorded Time 43777 morphine medicatio n Not available Not available Not available 09/03/2024 7052 RxNorm Not Available [facility] - production 10:35:22 64629 tramadol medicatio n Not available Not available Not available 09/03/2024 13716 RxNorm Not Available [facility] - production 10:35:22 38683 Iodinated contrast media (substanc e) medicatio n Not available Not available Not available 09/03/2024 42407 2004 SNOMED Not Available [facility] - production 10:35:22 24122 Non-stero idal anti-infl ammatory agent (substanc e) medicatio n Not available Not available Not available 09/03/2024 54001 5008 SNOMED Not Available [facility] - production 10:35:22 Medications Name Sig Start Date Stop Date Status Note LastModified by Organization Details LastModified Time Anti-Diarrhe al (loperamide) 2 mg tablet TAKE 1 TO 2 TABLETS BY MOUTH 4 TIMES A DAY IN THE MORNING, AT NOON, IN THE EVENING, AND AT BEDTIME NEEDED FOR DIARRHEA FOR UP TO 10 DAYS active Not Available Not Available No t Available latanoprost 0.005 % eye drops PLACE 1 DROP IN EACH EYE EVERY DAY AT BEDTIME active Not Available Not Available N ot Available metformin 500 mg tablet TAKE 1 TABLET BY MOUTH TWICE DAILY IN THE MORNING AND IN THE EVENING WITH MEALS active Not Available Not Available N ot Available venlafaxine ER 75 mg capsule,exte nded release 24 hr TAKE 1 CAPSULE BY MOUTH EVERY MORNING active Not Available Not Available No t Available gabapentin 600 mg tablet TAKE 1 TABLET BY MOUTH TWICE DAILY IN THE MORNING AND AT BEDTIME active Not Available Not Available No t Available atorvastatin 20 mg tablet TAKE 1 TABLET BY MOUTH AT BEDTIME active Not Available Not Available No t Available lisinopril 20 mg tablet TAKE 1 TABLET BY MOUTH EVERY EVENING active Not Available Not Available No t Available isosorbide mononitrate ER 30 mg tablet,exten ded release 24 hr TAKE 1 TABLET BY MOUTH EVERY MORNING active Not Available Not Available No t Available venlafaxine ER 150 mg capsule,exte nded release 24 hr TAKE 1 CAPSULE BY MOUTH EVERY MORNING active Not Available Not Available No t Available aspirin 81 mg tablet,delay ed release TAKE 1 TABLET BY MOUTH EVERY EVENING active Not Available Not Available No t Available acetaminophe n ER 650 mg tablet,exten ded release TAKE 1 TABLET BY MOUTH EVERY 6 HOURS NEEDED FOR MILD PAIN DO NOT BREAK, CRUSH, DISSOLVE OR CHEW active Not Available Not Available No t Available meclizine 25 mg tablet TAKE 1 TABLET BY MOUTH THREE TIMES DAILY IN THE MORNING, AT NOON, AND AT BEDTIME NEEDED FOR DIZZINESS active Not Available Not Available No t Available baclofen 10 mg tablet TAKE 1 TABLET BY MOUTH THREE TIMES DAILY IN THE MORNING, AT NOON, AND AT BEDTIME NEEDED FOR MUSCLE SPASMS active Not Available Not Available No t Available pantoprazole 40 mg tablet,delay ed release TAKE 1 TABLET BY MOUTH EVERY MORNING active Not Available Not Available No t Available clotrimazole -betamethaso ne 1 %-0.05 % topical cream APPLY A THIN LAYER TOPICALLY TO AFFECTED AREA(S) TWICE DAILY DIRECTED FOR ITCHING FOR 7 DAYS active Not Available Not Available N ot Available docusate sodium 100 mg capsule TAKE 1 CAPSULE BY MOUTH TWICE DAILY IN THE MORNING AND AT BEDTIME active Not Available Not Available No t Available mirtazapine 15 mg tablet TAKE 1 TABLET BY MOUTH AT BEDTIME active Not Available Not Available No t Available metoprolol succinate ER 25 mg tablet,exten ded release 24 hr TAKE 1 TABLET BY MOUTH EVERY MORNING active Not Available Not Available No t Available lorazepam 1 mg tablet TAKE 1 TABLET BY MOUTH TWICE A DAY NEEDED FOR ANXEITY active Not Available Not Available No t Available oxycodone-ac etaminophen 7.5 mg-325 mg tablet TAKE 1 TABLET BY MOUTH EVERY 6 HOURS NEEDED FOR SEVERE PAIN FOR UP TO 26 DAYS. active Not Available Not Available No t Available zolpidem 10 mg tablet TAKE 1 TABLET BY MOUTH EVERYDAY AT BEDTIME active Not Available Not Available No t Available ketoconazole 2 % topical cream APPLY TO THE AFFECTED AREA(S) TOPICALLY ONCE DAILY active Not Available Not Available N ot Available lisinopril 2.5 mg tablet TAKE 1 TABLET BY MOUTH EVERY DAY active Not Available Not Available No t Available loratadine 10 mg tablet TAKE 1 TABLET BY MOUTH EVERY MORNING active Not Available Not Available No t Available prazosin 2 mg capsule TAKE 2 CAPSULES BY MOUTH EVERY DAY AT BEDTIME active Not Available Not Available No t Available levothyroxin e 112 mcg tablet TAKE 1 TABLET BY MOUTH EVERY MORNING BEFORE BREAKFAST active Not Available Not Available No t Available Ventolin HFA 90 mcg/actuatio n aerosol inhaler INHALE 2 PUFFS BY MOUTH EVERY 4 HOURS NEEDED FOR WHEEZING OR SHORTNESS OF BREATH active Not Available Not Available No t Available oxycodone 5 mg tablet TAKE 1 TABLET BY MOUTH EVERY 6 HOURS NEEDED FOR PAIN active Not Available Not Available No t Available Oyster Shell Calcium-Princess min D3 500 mg-5 mcg (200 unit) tablet TAKE 1 TABLET BY MOUTH TWICE DAILY IN THE MORNING AND IN THE EVENING active Not Available Not Available No t Available aripiprazole 10 mg tablet TAKE 1 TABLET BY MOUTH EVERY MORNING active Not Available Not Available No t Available Alcohol Prep Pads USE DIRECTED BEFORE INSULIN INJECT AND sensor CHANGE active Not Available Not Available No t Available Advair HFA 115 mcg-21 mcg/actuatio n aerosol inhaler INHALE 2 PUFFS BY MOUTH TWICE DAILY IN THE MORNING AND AT BEDTIME RINSE MOUTH AFTER USING. AND DO NOT SWALLOW active Not Available Not Available No t Available diclofenac 1 % topical gel APPLY 2 GRAMS TOPICALLY TO AFFECTED AREA(S) 4 TIMES A DAY IN THE MORNING, AT NOON, IN THE EVENING, AND AT BEDTIME NEEDED FOR PAIN active Not Available Not Available No t Available cholecalcife rol (vitamin D3) 50 mcg (2,000 unit) tablet TAKE 1 TABLET BY MOUTH EVERY EVENING active Not Available Not Available No t Available BD Ultra-Fine Mary Pen Needle 32 gauge x / USE DIRECTED TO INJECT INSULIN EVERY DAY active Not Available Not Available No t Available Tresiba FlexTouch U-100 insulin 100 unit/mL (3 mL) subcutaneous pen INJECT 28 UNITS SUBCUTANEOU SLY EVERY DAY AT BEDTIME active Not Available Not Available No t Available naloxone 4 mg/actuation nasal spray FOR SUSPECTED OPIOID OVERDOSE. SPRAY 0.1mL IN ONE NOSTRIL. REPEAT IN ALTERNATE NOSTRIL 2-3 MINUTES IF NEEDED. SEEK MEDICAL ATTENTION IMMEDIATELY EVEN IF PATIENT RESPONDS. active Not Available Not Available No t Available FreeStyle Precision Angel Strips USE DIRECTED TO TEST BLOOD SUGAR EVERY DAY active Not Available Not Available No t Available OneTouch Delica Plus Lancet 33 gauge USE TWICE DAILY TO TEST BLOOD SUGAR active Not Available Not Available No t Available Baqsimi 3 mg/actuation nasal spray USE 1 SPRAY (3MG) IN ONE NOSTRIL FOR A PATIENT WITH SEVERE HYPOGLYCEMI A WHO IS NOT RESPONSIVE AND UNABLE SELF-TREAT WITH GLUCOSE. AFTERWARDS TURN ON SIDE. MAY REPEAT IN 15MINUTES IF PATIENT DOES NOT RESPOND. active Not Available Not Available No t Available FreeStyle Gerard 2 Sensor kit USE DIRECTED TO TEST BLOOD SUGAR, CHANGE EVERY 14 DAYS active Not Available Not Available No t Available FreeStyle Gerard 2 Bagwell USE DIRECTED EVERY 8 HOURS active Not Available Not Available No t Available Tab-A-Rito Multivitamin w-iron 15 mg iron-400 mcg tablet TAKE 1 TABLET BY MOUTH EVERY MORNING WITH FOOD active Not Available Not Available No t Available Ozempic 1 mg/dose (4 mg/3 mL) subcutaneous pen injector Inject 1 MG SUBCUTANEOU SLY EVERY 7 DAYS IN THE ABDOMEN, THIGHS OR UPPER ARM. ROTATE INJECTION SITES. active Not Available Not Available No t Available Ozempic 2 mg/dose (8 mg/3 mL) subcutaneous pen injector Inject 2 MG SUBCUTANEOU SLY EVERY 7 DAYS IN THE ABDOMEN, THIGHS OR UPPER ARM. ROTATE INJECTION SITES. active Not Available Not Available No t Available Mounjaro 7.5 mg/0.5 mL subcutaneous pen injector INJECT ONE PEN (=7.5MG) SUBCUTANEOU SLY ONCE A WEEK DIRECTED active Not Available Not Available No t Available Mounjaro 5 mg/0.5 mL subcutaneous pen injector INJECT ONE PEN (=5MG) SUBCUTANEOU SLY ONCE A WEEK DIRECTED active Not Available Not Available No t Available FreeStyle Gerard 3 Bagwell USE DIRECTED TO TEST BLOOD SUGAR EVERY DAY active Not Available Not Available No t Available FreeStyle Gerard 3 Plus Sensor device APPLY 1 SENSOR TOPICALLY EVERY 15 DAYS. USE DIRECTED TO TEST BLOOD SUGAR active Not Available Not Available Not Available glucose 3.75 gram chewable tablet CHEW 4 TABLETS BY MOUTH NEEDED FOR LOW BLOOD SUGAR (BLOOD SUGAR < 70 mg/dl) active Not Available Not Available No t Available Vitals Date Recorded Respiratory rate Body weight Oxygen saturation Oxygen saturation in Arterial blood by Pulse oximetry Body temperature Heart rate Body height Systolic And Diastolic Provider Name and Address Organization Details Last Updated DateTime 5 14 /min 176209. 2 g 96 % 96 % 98 [degF] 86 /min 162.56 cm 148/90 mm[Hg] Not Available [facility] - production 5 11:25:02 Social History None recorded. Functional Status None recorded. Mental Status None recorded. Family History Nothing Reported. Medical History No medical history recorded. Gynecological HistoryNo gynecological history recorded. Obstetrics History GPAL:G 0 P 0 0 0 0 Past Encounters Encounter ID Performer Location Encounter Start Date Encounter Closed Date Diagnosis/Indication Diagnosis SNOMED-CT Code Diagnosis ICD10 Code Diagnosis IMO Codes Diagnosis Note [id number] LENI CHOI MD [facility] ED Medical [address] [phone] 09/03/2024 11:24:52 09/03/2024 13:31:44 Dermal mycosis 73103588 B36.9 44203512 Health Concerns Section Related Observation LastModified by Organization Detai ls LastModified Time None Recorded Concern Status LastModified by Organization Details LastModified Time None Recorded Advance Directives Directive None Recorded Payers Insurance Date Sequence Insurance Name Policy Number Policy Mccauley Covered Member ID Mccauley Member ID Guarantor Name 09/29/2024 1 [facility] - DOS ON OR AFTER 2022 - DUAL ELIGIBLE - [facility] [employer] AND ONE CARE (MEDICARE REPLACEMENT/ADV ANTAGE - HMO) Trish Huntre [id number] Trish Hunter Notes Date Note Type Note Provider Name and Address Organization Details Recorded Time 09/03/2024 text/html ROS as noted in the HPI HPI: Itchy raw rash under right breast. ...................... ...................... ...................... ...................... ...................... ...................... ......... [facility] Nurse Triage Notes (Irlanda Soto): Reason For Request: Rash Chief Complaints: Rash PMH: Asthma, Diabetes Mellitus Type 2, Gastroesophageal Reflux Disease (GERD), Hyperlipidemia, Hypertension, Hypothyroidism PMH Reviewed at 09/03/2024:35 Allergies Reviewed at 09/03/2024:35 Comments: Reviewed HPI. ...................... ...................... ...................... ...................... ...................... ...................... ......... [employer] Note From Mukund Hunter: Patient alert and oriented seated on couch. [...] full sentences, extremities unremarkable no edema noted. [facility] [place] s [place] pharmacy. Patient reports she l l be able to obtain that medication today. Patient advised to follow up with PCP today. Supportive care, red flags, and patient education discussed. Patient demonstrates understanding of care and plan. Patient given an opportunity to ask questions. ...................... ...................... ...................... ...................... ...................... ...................... ......... [facility] Consulted: Leni Choi ...................... ...................... ...................... ...................... ...................... ...................... ......... Disposition: Fulfilled LENI CHOI MD [address] [place] [address],[address] [facility], [place], [address], [employer] Health[employer]ITYA SCHULZ 09/03/2024 12:53:02 OBGyn Episode No OBEpisode recorded.
--- OUTSIDE RECORDS SUMMARY | 2025-01-06 21:03 | XMS_ITS | Encounter Summary ---
Author Organization [employer] Address [address] [place] [address] [address] [place] [id number] Care Team Providers Care Busher Helper Name Role Phone ManuelEthel perry Primary Care Provider [phone] Vaishnavi Laird PharmD Unavailable [phone] Reason for Visit * Reason Comments Med Refill Encounter Details Date Type Department Care Team ([facility] st Contact Info) Description 02/02/2023 Refill [facility] [address] [place] [address] Sadie Rivera, ANP [address] [place] [address] Type 2 diabetes mellitus with other specified complication, unspecified whether vermin exterminator insulin use ([facility]) Social History Tobacco Use Types [...] Description 01/27/2025 10:00 AM EST Medication Management [address] [address] Vaishnavi Laird PharmD [address] [place] [address] 03/03/2025 9:00 AM EST Clinical Support [address] [address] Suad Wilson, MARY documented as of this encounter Visit Diagnoses Diagnosis Type 2 diabetes mellitus with other specified complication, unspecified whether vermin exterminator insulin use (H[facility]) documented in this encounter Additional Health Concerns Assessment Noted Time PHQ-9 Depression Total Score: 0 02/08/20 22 10:43 AM EST documented as of this encounter Care Teams Busher Helper Relationship Specialty Start Date End Date Ethel Chase DO [address] [place] [phone] PCP - General Family Medicine 10/12/13 Vaishnavi Laird PharmD [address] [place] [phone] Pharmacist Internal Medicine 02/07/23 [email or web address] 06/11/24 11/18/24 documented as of this encounter
--- OUTSIDE RECORDS SUMMARY | 2025-01-06 21:03 | XMS_ITS | Encounter Summary ---
Author Organization [employer] Address [address] [place] [address] [address] [place] [address] Care Team Providers Care Import Export Clerk Name Role Phone Ethel Chase DO Primary Care Provider [phone] Vaishnavi Laird PharmD Unavailable Reason for Visit * Reason Comments Med Refill Encounter Details Date Type Department Care Team (Late Contact Info) Description 06/06/2022 Refill [facility] MED[facility]INE [address] [place] [address] Ethel Chase DO [address] [place] [address] Other chronic pain Social History Tobacco Use [...] Department Care Team (Late Contact Info) Description 01/27/2025 10:00 AM EST Medication Management [address] [address] Vaishnavi Laird PharmD [address] [place] [address] 03/03/2025 9:00 AM EST Clinical Support [address] [address] Suad Wilson RN documented as of this encounter Visit Diagnoses Diagnosis Other chronic pain documented in this encounter Additional Health Concerns Assessment Noted Time PHQ-9 Depression Total Score: 0 02/08/20 10:43 AM EST documented as of this encounter Care Teams Import Export Clerk Relationship Specialty Start Date End Date Ethel Chase DO [address] [place] [address] PCP - General Family Medicine 10/12/13 Vaishnavi Laird PharmD [address] [place] [address] Pharmacist Internal Medicine 02/07/23 [id number] 06/11/24 11/18/24 documented as of this encounter
--- OUTSIDE RECORDS SUMMARY | 2025-01-06 21:03 | XMS_ITS | Encounter Summary ---
Author Organization [facility] Address [address] [place] [address] Care Team Providers Care Manager Clinical Name Role Phone Matias Bowling MD Primary Care Provider [phone] Encounter Details Date Type Department Care Team (Late st Contact Info) Description 04/16/2024 Lab Requisition [facility] - Main Lab [address] [place] [address] Matias Bowling MD [address] [facility] [address] [place], [address] Essential (primary) hypertension Social History Tobacco [...] LAB CHEMISTRY METHOD 04/16/2024 11:36 AM EST [facility] Potassium 4.2 3.5 - 5.5 mmol/L LAB CHEMISTRY METHOD 04/16/2024 11:36 AM EST [facility] Chloride 103 96 - 110 mmol/L LAB CHEMISTRY METHOD 04/16/2024 11:36 AM [facility] CO2 25 21 - 32 mmol/L LAB CHEMISTRY METHOD 04/16/2024 11:36 AM [facility] Anion Gap 13(H) 3 - 11 LAB CHEMISTRY METHOD 04/16/2024 11:36 AM [facility] Glucose 96 70 - 100 mg/dL LAB CHEMISTRY METHOD 04/16/2024 11:36 AM [facility] BUN 13 5 - 25 mg/dL LAB CHEMISTRY METHOD 04/16/2024 11:36 AM [facility] Creatinine 1.13(H) 0.50 - 1.10 mg/dL LAB CHEMISTRY METHOD 04/16/2024 11:36 AM [facility] eGFR 53(L) >=60 mL/min/1. 73m2 LAB CHEMISTRY METHOD 04/16/2024 11:36 AM [facility] Comment:Calculation based on the Chronic Kidney Disease Epidemiology Collaboration (CKD-EPI) equation refit without adjustment for race. BUN/Creatinine Ratio 11.5 LAB CHEMISTRY METHOD 04/16/2024 11:36 AM [facility] Calcium 9.1 8.5 - 10.5 mg/dL LAB CHEMISTRY METHOD 04/16/2024 11:36 AM [facility] AST (SGOT) 31 10 - 42 unit/L LAB CHEMISTRY METHOD 04/16/2024 11:36 AM [facility] ALT (SGPT) 33 10 - 60 unit/L LAB CHEMISTRY METHOD 04/16/2024 11:36 AM [facility] Alkaline Phosphatase 181(H) 42 - 121 unit/L LAB CHEMISTRY METHOD 04/16/2024 11:36 AM [facility] Total Protein 7.5 6.0 - 8.0 g/dL LAB CHEMISTRY METHOD 04/16/2024 11:36 AM [facility] Albumin 3.3 3.2 - 5.0 g/dL LAB CHEMISTRY METHOD 04/16/2024 11:36 AM [facility] Total Bilirubin 0.4 0.0 - 1.4 mg/dL LAB CHEMISTRY METHOD 04/16/2024 11:36 AM [facility] Blood Venous blood specimen / Unknown Venipuncture / Unknown 04/16/2024 7:33 AM EST 04/16/2024 10:20 AM EST us Matias Bowling MD LAB BLOOD ORDERABLES Final Resul t [facility] [address] [place] [address], * (ABNORMAL) Complete blood count (04/16/2024 7:33 AM EST) WBC 11.5(H) 4.8 - 10.8 K/mcL LAB HEMETOLOGY METHOD 04/16/2024 11:12 AM [facility] RBC 3.70(L) 3.80 - 4.80 M/mcL LAB HEMETOLOGY METHOD 04/16/2024 11:12 AM [facility] Hemoglobin 9.9(L) 11.5 - 16.0 g/dL LAB HEMETOLOGY METHOD 04/16/2024 11:12 AM [facility] Hematocrit 32.1(L) 35.0 - 47.0 % LAB HEMETOLOGY METHOD 04/16/2024 11:12 AM [facility] MCV 87.5 79.0 - 98.0 FL LAB HEMETOLOGY METHOD 04/16/2024 11:12 AM [facility] MCH 27.0 27.0 - 32.0 pcg LAB HEMETOLOGY METHOD 04/16/2024 11:12 AM [facility] MCHC 30.8(L) 32.0 - 37.0 g/dL LAB HEMETOLOGY METHOD 04/16/2024 11:12 AM EST [facility] RDW 14.2 11.0 - 15.0 % LAB HEMETOLOGY METHOD 04/16/2024 11:12 AM EST [facility] Platelets 443(H) 130 - 400 K/mcL LAB HEMETOLOGY METHOD 04/16/2024 11:12 AM EST [facility] MPV 9.8 7.0 - 11.0 FL LAB HEMETOLOGY METHOD 04/16/2024 11:12 AM EST [facility] NRBC 0.0 <1.0 % LAB HEMETOLOGY METHOD 04/16/2024 11:12 AM EST [facility] NRBC Absolute 0.00 <0.10 K/mcL LAB HEMETOLOGY METHOD 04/16/2024 11:12 AM [facility] Blood Venous blood specimen / Unknown Venipuncture / Unknown 04/16/2024 7:33 AM EST 04/16/2024 10:20 AM EST us Matias Bowling MD LAB BLOOD ORDERABLES Final Resul t [facility] [address] [place] [address], documented in this encounter Visit Diagnoses Diagnosis Essential (primary) hypertension Unspecified essential hypertension documented in this encounter Additional Health Concerns Infection Onset Date Last Indicated Resolved Time Gastrointestinal Rule-Out 04/28/2024 04/27/2024 7:06 PM EDT C. difficile 05/29/2024 05/29/2024 06/22/2024 7:04 PM EDT C. difficile Rule-Out 05/30/2024 05/29/20242024 9:47 AM EDT documented as of this encounter Care Teams Manager Clinical Relationship Specialty Start Date End Date Matias Bowling MD [address] [place] [address] [address] [place] [phone] PCP - General Family Medicine 04/16/24 documented as of this encounter
--- OUTSIDE RECORDS SUMMARY | 2025-01-06 21:03 | XMS_ITS | Clinical Summary ---
Author Organization [address] Address [address] [place] [address] Phone Care Team Providers Care Sponge Press Operator Name Role Phone Matias Bowling MD Primary Care Provider [phone] Social History Tobacco Use Types Packs/Day Years [...] #1 Negative Negative 05/30/2024 9:30 AM EDT [facility] Stool Rectum structure / Unknown Non-blood Collection / Unknown 05/29/2024 1:50 PM EDT 05/30/2024 8:36 AM EDT Matias Bowling MD LAB BODY FLUIDS AND STOOLS ORDER MARGARET Final Result [facility] [address] [place] [address], from Last 3 Months or Most Recently Relevant to Health Maintenance Insurance [facility] MEDIC[facility] Member Subscriber Plan / Payer (Ef fective 2022-Present) Name:Trish Hunter Relation to Subscriber:Self Name:rTish Hunter Payer ID:[id number] Group ID:[id number] Type:Not on file Address: [address] [place] [address] Care Teams Sponge Press Operator Relationship Specialty Start Date End Date Matias Bowling MD [address] [address] PCP - General Family Medicine 04/16/24
--- OUTSIDE RECORDS SUMMARY | 2025-01-06 21:03 | XMS_ITS | Encounter Summary ---
Author Organization [facility] Address [address] [place] [address] Care Team Providers Care Remote Sensing Technician Name Role Phone Matias Bowling MD Primary Care Provider [phone] Encounter Details Date Type Department Care Team (Late st Contact Info) Description 05/13/2024 Lab Requisition [facility] Lab [address] [place] [address] Matias Bowling MD 38 [facility] [address] [place], [address] Essential (primary) hypertension Social History Tobacco [...] LAB CHEMISTRY METHOD 05/14/2024 11:24 AM EDT [facility] Potassium 5.2 3.5 - 5.5 mmol/L LAB CHEMISTRY METHOD 05/14/2024 11:24 AM EDT [facility] Chloride 108 96 - 110 mmol/L LAB CHEMISTRY METHOD 05/14/2024 11:24 AM [facility] CO2 25 21 - 32 mmol/L LAB CHEMISTRY METHOD 05/14/2024 11:24 AM [facility] Anion Gap 5 3 - 11 LAB CHEMISTRY METHOD 05/14/2024 11:24 AM [facility] Glucose 132(H) 70 - 100 mg/dL LAB CHEMISTRY METHOD 05/14/2024 11:24 AM [facility] BUN 13 5 - 25 mg/dL LAB CHEMISTRY METHOD 05/14/2024 11:24 AM [facility] Creatinine 1.06 0.50 - 1.10 mg/dL LAB CHEMISTRY METHOD 05/14/2024 11:24 AM [facility] eGFR 57(L) >=60 mL/min/1. 73m2 LAB CHEMISTRY METHOD 05/14/2024 11:24 AM [facility] Comment:Calculation based on the Chronic Kidney Disease Epidemiology Collaboration (CKD-EPI) equation refit without adjustment for race. BUN/Creatinine Ratio 12.3 LAB CHEMISTRY METHOD 05/14/2024 11:24 AM [facility] Calcium 9.6 8.5 - 10.5 mg/dL LAB CHEMISTRY METHOD 05/14/2024 11:24 AM [facility] AST (SGOT) 20 10 - 42 unit/L LAB CHEMISTRY METHOD 05/14/2024 11:24 AM [facility] ALT (SGPT) 28 10 - 60 unit/L LAB CHEMISTRY METHOD 05/14/2024 11:24 AM [facility] Alkaline Phosphatase 160(H) 42 - 121 unit/L LAB CHEMISTRY METHOD 05/14/2024 11:24 AM [facility] Total Protein 6.6 6.0 - 8.0 g/dL LAB CHEMISTRY METHOD 05/14/2024 11:24 AM [facility] Albumin 3.2 3.2 - 5.0 g/dL LAB CHEMISTRY METHOD 05/14/2024 11:24 AM EDT [facility] Total Bilirubin 0.2 0.0 - 1.4 mg/dL LAB CHEMISTRY METHOD 05/14/2024 11:24 AM T [facility] Blood Venous blood specimen / Unknown Venipuncture / Unknown 05/14/2024 6:06 AM EDT 05/14/2024 9:53 AM EDT us Matias Bowling MD LAB BLOOD ORDERABLES Final Resul t [facility] [address] [place] [address], [place] [phone] * (ABNORMAL) Complete blood count (05/14/2024 6:06 AM EDT) WBC 8.8 4.8 - 10.8 K/mcL LAB HEMETOLOGY METHOD 05/14/2024 10:16 AM [facility] RBC 3.50(L) 3.80 - 4.80 M/mcL LAB HEMETOLOGY METHOD 05/14/2024 10:16 AM [facility] Hemoglobin 9.4(L) 11.5 - 16.0 g/dL LAB HEMETOLOGY METHOD 05/14/2024 10:16 AM [facility] Hematocrit 30.4(L) 35.0 - 47.0 % LAB HEMETOLOGY METHOD 05/14/2024 10:16 AM [facility] MCV 85.9 79.0 - 98.0 FL LAB HEMETOLOGY METHOD 05/14/2024 10:16 AM [facility] MCH 26.6(L) 27.0 - 32.0 pcg LAB HEMETOLOGY METHOD 05/14/2024 10:16 AM [facility] MCHC 30.9(L) 32.0 - 37.0 g/dL LAB HEMETOLOGY METHOD 05/14/2024 10:16 AM EDT [facility] RDW 14.6 11.0 - 15.0 % LAB HEMETOLOGY METHOD 05/14/2024 10:16 AM EDT [facility] Platelets 275 130 - 400 K/mcL LAB HEMETOLOGY METHOD 05/14/2024 10:16 AM EDT [facility] MPV 10.1 7.0 - 11.0 FL LAB HEMETOLOGY METHOD 05/14/2024 10:16 AM EDT [facility] NRBC 0.0 <1.0 % LAB HEMETOLOGY METHOD 05/14/2024 10:16 AM EDT [facility] NRBC Absolute 0.00 <0.10 K/mcL LAB HEMETOLOGY METHOD 05/14/2024 10:16 AM EDT [facility] Blood Venous blood specimen / Unknown Venipuncture / Unknown 05/14/2024 6:06 AM EDT 05/14/2024 9:53 AM EDT us Matias Bowling MD LAB BLOOD ORDERABLES Final Resul t [facility] [address] [place] [address], documented in this encounter Visit Diagnoses Diagnosis Essential (primary) hypertension Unspecified essential hypertension documented in this encounter Additional Health Concerns Infection Onset Date Last Indicated Resolved Time Gastrointestinal Rule-Out 04/28/2024 04/27/2024 7:06 PM EDT C. difficile 05/29/2024 05/29/2024 06/22/2024 7:04 PM EDT C. difficile Rule-Out 05/30/2024 05/29/20242024 9:47 AM EDT documented as of this encounter Care Teams Remote Sensing Technician Relationship Specialty Start Date End Date Matias Bowling MD [address] [place] [address] PCP - General Family Medicine 04/16/24 documented as of this encounter
--- OUTSIDE RECORDS SUMMARY | 2025-01-06 21:03 | XMS_ITS | Clinical Summary ---
Author Organization [employer] Address [address] [place] [address] [address] [place] [address] Care Team Providers Care Supervisor Hot Dip Plating Name Role Phone Ethel Chase Primary Care Provider Vaishnavi Laird PharmD Unavailable [phone] Allergies Active Allergy Reactions Criticality Noted Date Comments Iodinated Contrast Media Unknown High 02/21/2010 Other Reaction(s): itching, hives Other Reaction(s): Not available Morphine Unknown High 02/21/2010 Other Reaction(s): ITCHING, rash Other Reaction(s): Not available Nsaids Unknown 02/21/2010 Other Reaction(s): Not available Tramadol Rash High 10/18/2023 Other Reaction(s): Not available Medications zolpidem (Ambien) 10 MG tablet Take 1 [...] TWICE A DAY NEEDED FOR ANXEITY Active OneTouch Delica Lancets 33G miscIndications:Ty pe 2 diabetes mellitus without complication, without long-term current use of insulin ([facility]) USE TO TEST BLOOD SUGAR TWICE DAILY 100 each 11 024 Active Ventolin HFA 108 (90 Base) MCG/ACT inhaler INHALE 2 PUFFS BY MOUTH EVERY 4 HOURS NEEDED FOR WHEEZING OR SHORTNESS OF BREATH 18 g 1 Active glucagon (Baqsimi Two Pack) 3 MG/DOSE nasal powderIndications: Type 2 diabetes mellitus without complication, without long-term current use of insulin ([facility]) Administer 3 mg via 1 device into the nostril for hypoglycemia with loss of consciousness. If no response after 15 minutes administer an additional dose via 2nd device into other nostril. 2 each 1 024 Active glucose 4 g chewable tablet Chew 4 tablets (16 g) if needed for low blood sugar (BG < 70 mg/dL). 20 tablet 5 Active Diclofenac Sodium 1 % gel Apply 2 g topically if needed in the morning, at noon, in the evening, and at bedtime (pain). 150 g 3 024 Active insulin pen needle 32G x 4 mm miscIndications:Ty pe 2 diabetes mellitus without complication, without long-term current use of insulin ([facility]) Use to inject insulin 1 times daily 100 each 3 024 Active Alcohol Swabs (Alcohol Prep) 70 % padsIndications:Po mabel controlled diabetes mellitus ([facility]) USE DIRECTED BEFORE INSULIN INJECTION [...] EVERY MORNING WITH FOOD 90 tablet 1 025 Active levothyroxine (Synthroid, Levoxyl) 112 MCG tablet TAKE 1 TABLET BY MOUTH EVERY MORNING BEFORE BREAKFAST 90 tablet 3 025 Active aspirin (Aspirin Adult Low Dose) 81 MG EC tabletIndications: Type 2 diabetes mellitus without complication, with long-term current use of insulin ([facility]) Take 1 tablet (81 mg) by mouth in the evening. 90 tablet 3 025 2025 Active Continuous Glucose Loop Machine Operator (FreeStyle Gerard 3 Colerain) deviceIndications: Type 2 diabetes mellitus without complication, with long-term current use of insulin ([facility]) 1 each Once per day. Use as directed for CGM 1 each Active Continuous Glucose Sensor (FreeStyle Gerard 3 Plus Sensor) miscIndications:Ty pe 2 diabetes mellitus without complication, with long-term current use of insulin ([facility]) 1 each every 15 days. Apply 1 every 15 days as directed for CGM 2 each 01/07/20 25 2:32 PM EST Active glucose blood (FreeStyle Precision Angel Test) test stripIndications:T ype 2 diabetes mellitus without complication, with long-term current use of insulin ([facility]) Use to test blood sugar 2 times daily in case of CGM failure or extremes of BG 500 each 025 2025 Active naloxone (Narcan) 4 mg/0.1 mL nasal sprayIndications:L hoa-term current use of opiate analgesic Administer 1 spray (4 mg) into affected nostril(s) if needed for opioid reversal. 2 each 2 Active Calcium Carb-Cholecalcifer ol (Oyster Shell Calcium w/D) 500-5 MG-MCG tabletIndications: Osteopenia, unspecified location TAKE 1 TABLET BY MOUTH TWICE DAILY IN THE MORNING AND IN THE EVENING 180 tablet 1 07/22/2 025 Active cholecalciferol VITAMIN D (Vitamin D-3) 50 MCG (2000 UT) tablet TAKE 1 TABLET BY MOUTH EVERY EVENING 90 tablet Active lisinopril 2.5 MG tabletIndications: Essential hypertension Take 1 tablet (2.5 mg) by mouth Once per day. 30 tablet 2025 Active Advair HFA 115-21 MCG/ACT inhaler INHALE 2 PUFFS BY MOUTH TWICE DAILY IN THE MORNING AND AT BEDTIME RINSE MOUTH AFTER USING. AND DO NOT SWALLOW 12 g Active pantoprazole (ProtoNix) 40 MG EC tabletIndications: Chronic gastroesophageal reflux disease Take 1 tablet (40 mg) by mouth in the morning. Do not crush, chew, or split. 90 tablet Active gabapentin (Neurontin) 600 MG tablet Take 1 tablet (600 mg) by mouth 2 times daily. 60 tablet Active oxyCODONE-acetamin ophen (Percocet) 7.5-325 MG tabletIndications: Other chronic pain Take 1 tablet by mouth every 6 (six) hours if needed for severe pain for up to 28 days. Do not start before December 18, 2024. 112 tablet 2024 Active insulin degludec (Tresiba FlexTouch) 100 UNIT/ML injectionIndicatio ns:Type 2 diabetes mellitus without complication, without long-term current use of insulin ([facility]) Inject 30 units subQ once daily at bedtime. 15 mL Active Tirzepatide (Mounjaro) 12.5 MG/0.5ML solution auto-injectorIndic ations:Type 2 diabetes mellitus without complication, with long-term current use of insulin ([facility]) Inject 12.5 mg under the skin 1 (one) time per week. 2 mL Active furosemide (Lasix) 20 MG tablet TAKE 1 TABLET BY MOUTH EVERY DAY NEEDED FOR SWELLING 14 tablet Active albuterol (2.5 MG/3ML) 0.083% nebulizer solution Take 3 mL by nebulization in the morning, at noon, in the evening, and at bedtime. 021 2024 Discontinued(M ed list cleanup (will not trigger notification to Pharmacy)) insulin degludec (Tresiba FlexTouch) 100 UNIT/ML injectionIndicatio ns:Type 2 diabetes mellitus without complication, without long-term current use of insulin ([facility]) Inject 28 units subQ once daily at bedtime. 15 mL 5 025 2024 Discontinued(R eorder (will not trigger notification to Pharmacy)) ketoconazole (NIZOral) 2 % cream APPLY TO THE AFFECTED AREA(S) TOPICALLY ONCE DAILY 025 2024 Discontinued(M ed list cleanup (will not trigger notification to Pharmacy)) Tirzepatide (Mounjaro) 10 MG/0.5ML solution auto-injectorIndic ations:Type 2 diabetes mellitus without complication, with long-term current use of insulin ([facility]) Inject 10 mg under the skin 1 (one) time per week. 2 mL 11 025 2024 Discontinued(D ose adjustment) oxyCODONE-acetamin ophen (Percocet) 7.5-325 MG tabletIndications: Other chronic pain Take 1 tablet by mouth every 6 (six) hours if needed for severe pain for up to 28 days. Do not start before November 20, 2024. 112 tablet 2024 Discontinued furosemide (Lasix) 20 MG tablet Take 1 tablet (20 mg) by mouth if needed each day (swelling). 14 tablet 2024 Discontinued Active Problems Problem Noted Date Diagnosed Date Stage 3 chronic kidney disease ([facility]) Long-term current use of opiate analgesic 2024 [...] Encounters Date Type Department Care Team Description 12/28/2024 Refill [facility] [address] [place] [phone] Ethel Chase DO 12/28/2024 Travel 12/16/2024 9:15 AM EDT Office Visit [facility] [address] [place] [phone] Ethel Chase DO Type 2 diabetes mellitus without complication, with long-term current use of insulin (HCC) (Primary Dx); Essential hypertension; Stage 3 chronic kidney disease, unspecified whether stage 3a or 3b CKD (CMS/HCC) (HCC); Other hyperlipidemia; Fatty liver; Major depression, recurrent, chronic (CMS/HCC); Mild persistent asthma without complication; Other specified hypothyroidism; Other cardiomyopathy (HCC); Tremor of right hand; Nephrolithiasis; Sleep-disordered breathing; Forgetfulness; Abnormal CT of the head; Chronic diarrhea; Chronic bilateral low back pain, unspecified whether sciatica present; S/P total knee arthroplasty, left; Swelling of both lower extremities; Healthcare maintenance; Dietary counseling; Exercise counseling; Encounter for immunization; Encounter for vaccination; Type 2 diabetes mellitus without complication, without long-term current use of insulin (HCC); Encounter for screening mammogram for malignant neoplasm of breast 12/16/[address] [address] Ethel Chase DO Durable Medical Equipment (DME prescription Commode and Shower Chair(CCA SCO)) 12/16/2024 Refill [facility] [address] [place] [address] Ethel Chase DO Other chronic pain 12/16/2024 Travel 12/15/2024 Orders Only [facility] [address] [place] [phone] Ethel Chase DO Type 2 diabetes mellitus without complication, with long-term current use of insulin (HCC) (Primary Dx) 12/09/2024 Patient Outreach [facility] [address] [place] [address] Ethel Chase DO Pre-visit Planning (SDOH was already completed ) 12/08/[address] [address] Ethel Chase DO Chart Prep 12/03/[address] [address] Ethel Chase DO recall 12/03/2024 Telephone [facility] [address] [place] [address] Ethel Chase DO Appointment Request 12/01/2024 9:00 AM EDT Clinical Support [facility] [address] [place] [address] Suad Wilson RN Long-term current use of opiate analgesic (Primary Dx) 12/01/2024 Telephone [facility] [address] [place] [address] Suad Wilson RN Percocet count discrepancy 12/01/2024 Travel 11/20/2024 Refill [facility] [address] [place] [address] Ethel Chase DO Chronic gastroesophageal reflux disease 11/18/2024 Refill [facility] [address] [place] [address] Ethel Chase DO Other chronic pain 11/14/2024 Refill [facility] [address] [facility] [place] [address] Ethel Chase DO 11/04/2024 Refill [facility] [address] [facility] [place] [address] Ethel Chase DO 11/04/2024 Travel 10/22/2024 Refill [facility] [address] [facility] [place] [address] Ethel Chase DO Other chronic pain 10/18/2024 Orders Only [facility] [place] [address] Ethel Chase DO Post-menopause (Primary Dx) 10/16/2024 Orders Only [facility] [place] [address] Ethel Chase DO 10/08/2024 Travel from Last 3 Months Immunizations Immunization Administration Dates Next Due Hep B, adult 10/13/2014, 5,04/08/2014,06/08,05/08/2010 Influenza High-dose Quadriva lent Preservative Free 01/01/2023 Influenza injectable quadriv alent IIV4 with preservative 01/03/2018,11/19/2016,03/19/2016,01/10 Influenza injectable quadriv alent preservative free 02/07/2022,11/29/2020,11/17/2019,01/19 Influenza, High Dose Seasona l, Preservative Free 12/16/2024,12/26/2023 Influenza, IIV3, injectable 12/17/2013, 0 Influenza, Split (incl. scarlett fied surface antigen) 11/18/2012,12/21/2011 Moderna Covid-19 Vaccine 12+ 01/24/2021,05/25/19 21,04/26/2020 Moderna Covid-19 Vaccine 6+ Bivalent 11/26/2021 Pfizer Covid-19 Vaccine 12+ 12/16/2024, 4,01/01/2023 Pfizer Covid-19 Vaccine 12+ Bivalent 02/07/2022 Pneumococcal [...] Answer Date Recorded Patient Health Questionnaire-9 Score 10 12/16/2024 Patient Health Questionnaire-9 Score 10 12/16/2024 Last PHQ-9: Questionnaire Data Not on file 1 Housing Stability Answer Date Recorded What is [...] Answer Date Recorded Patient Health Questionnaire-2 Score 3 12/16/2024 Internet Access Answer Date Recorded Internet Access Q1 Yes 01/15/2024 Internet Access Q2 Not on file 01/15/2024 Comments No Sex and Gender Information Value Date Recorded Sex Assigned at Female 12/25/2021 10:14 AM EDT Legal Sex Female 10:14 AM EDT Gender Identity Female 12/25/2021 10:14 AM EDT Sexual Orientation Straight 12/25/2021 10 :14 AM EDT Last Filed Vital Signs Vital Sign Reading Time Taken Comments Blood Pressure 102/70 12/28/2024 9:42 AM EST Pulse 89 12/16/2024 9:11 AM EDT Temperature 36.3 C (97.4 F) 12/16/2024 9:11 AM EDT Respiratory Rate 21 12/16/2024 9:11 AM EDT Oxygen Saturation 96% 12/16/2024 9:11 AM EDT Inhaled Oxygen Concentration - - Weight 124 kg (274 lb) 12/16/2024 9:11 AM EDT Height 160 cm (5' 3 ) 12/16/2024 9:11 AM EDT Body Mass Index 48.54 12/16/2024 9:11 AM EDT Plan of Treatment Upcoming Encounters Date Type Department Care Team (Late st Contact Info) Description 01/27/2025 10:00 AM EST Medication Management [facility] [address] [place] [address] Vaishnavi Laird, PharmD [address] [place], [place] [phone] 03/03/2025 9:00 AM EST Clinical Support [facility] [address] [place] [address] Suad Wilson, RN Health Maintenance Due Date Last Done Comments CT Colonography 1955 FIT DNA/Cologuard 1955 FIT 1955 FOBT 1955 Sigmoidoscopy 1955 Diabetes: Foot Exam 12/29/1965 Eye Exam 12/29/1965 Hepatitis A Vaccines (1 of 2 - Risk 2-dose series) 12/29/1974 Alcohol/Substance Use Screening 01/28/2025 01/29/2024 Diabetes: Hemoglobin A1C 03/18/2025 025, 10/08/2024, 06/30/2024, Additional history exists SDOH Screening 06/08/2025 06/08/2024 COVID-19 Vaccine ( season) 2025 12/16/2024, 12/26/2023, 01/01/2023, Additional history exists Depression Monitoring 06/16/2025 12/16/2024, 025 Lipid Panel 06/30/2025 06/30/2024, 10/26, 08/24/2022, Additional history exists Mammogram 08/05/2025 08/06/2023, 05/0 10/2022, 07/03/2022, Additional history exists Diabetes: Urine Protein Screening 10/16/2025 10/16/2024, 03/13/2023, 08/24/2022, Additional history exists Tobacco Screening 12/16/2025 12/16/2024 Pneumococcal Vaccine: 50+ Years (3 of 3 [...] or older Completed 02/07/2023 Influenza Vaccine Completed 12/16/2024, , 01/01/2023, Additional history exists HIB Vaccines Aged Out [...] 8.4( 9:14 AM EDT) No Vaishnavi Laird, PharmRina Record your blood sugar as directed Result Component No Vaishnavi Laird, PharmD Procedures Procedure Name Priority Date/Time Associated Diagnosis Comments POCT GLYCATED HEMOGLOBIN, TOTAL Routine 12/16/2024 9:14 AM EDT Type 2 diabetes mellitus without complication, with long-term current use of insulin (HCC) POCT GLUCOSE Routine 12/16/2024 9:14 AM EDT Type 2 diabetes mellitus without complication, with long-term current use of insulin (HCC) BD DEXA AXIAL Routine 12/15/2024 1:39 PM EDT Post-menopause POCT LENCHO-14 URINE DRUG SCREEN Routine 12/01/2024 9:04 AM EDT Long-term current use of opiate analgesic VITAMIN D,25-OH,TOTAL,IA Routine 10/16/2024 9:15 AM EDT [...] left femur, unspecified fracture morphology, initial encounter ([facility]) C. difficile colitis Type 2 diabetes mellitus without complication, without long-term current use of insulin ([facility]) Essential hypertension POCT GLYCATED HEMOGLOBIN, TOTAL Routine 10/08/2024 12:47 PM EDT Type 2 diabetes mellitus without complication, with long-term current use of insulin ([facility]) LIPID PANEL, STANDARD Routine 06/30/2024 10:10 AM EDT S/P total knee arthroplasty, left Closed fracture of distal end of left femur, unspecified fracture morphology, initial encounter ([facility]) C. difficile colitis Type 2 diabetes mellitus without complication, without long-term current use of insulin ([facility]) Essential hypertension BI MAMMOGRAM SCREENING TOMOSYNTHESIS BILATERAL Routine 08/06/2023 11:15 AM EDT ZZZ HISTORICAL HEPATITIS C ANTIBODY RFLX Routine 10/31/2019 9:40 AM EDT HM COLONOSCOPY Routine 03/03/2019 from Last 3 Months or Most Recently Relevant to Health Maintenance Results * (ABNORMAL) POCT Hgb A1c (12/16/2024 9:14 AM EDT) Only the most recent of2 resultswithin the time period is included. Hemoglobin A1C 8.4(A) 4.0 - 5.7 % QC Media Lot # [id number] Lot# Expiration Date ,027 Blood 12/16/2024 9:14 AM EDT Ethel Chase DO POINT OF CARE TEST ENTER/MARGARITA T ORDERABLES Final Result * (ABNORMAL) POCT Glucose (12/16/2024 9:14 AM EDT) Glucose Blood, POC 290(A) 60 - 200 mg/dL QC Media Lot # [id number] Lot# Expiration Date ,026 Blood Capillary blood specimen / Unknown 12/16/2024 9:14 AM EDT Ethel Chase DO POINT OF CARE TEST ENTER/MARGARITA T ORDERABLES Final Result * BD DEXA Axial (12/15/2024 1:39 PM EDT) Anatomical Region Laterality Modality Body Radiographic Christina ging 12/15/2024 1:39 PM EDT Narrative 12/15/2024 1:54 PM EDT [facility] [address] [place] [address] Mammography Report Signed Patient: Trish Cameron MR#: [id number] : 1955 Acct:[id number] Age/Sex: 68 / F ADM Date: 12/15/24 Loc: MAMMO Attending Dr: Ethel Chase DO Ordering Physician: Ethel Chase DO Results: Date of Service: 12/15/24 Follow Up: Procedure(s): XR DEXA axial skeleton Accession Number(s): [id number] cc: Ethel Chase DO Reason For Exam: osteoporosis screening EXAMINATION: DXA BONE DENSITY AXIAL HISTORY: osteoporosis screening TECHNIQUE: [employer] Dual energy absorptiometry (DEXA) of the lumbar spine, total left hip, and femoral neck was performed. COMPARISON: None FINDINGS: The bone mineral density of the lumbar spine from L1 to L3 is 0.996 g/cm2, corresponding to a T-score of -1.5, and a Z-score of -1.0. This is indicative of osteopenia. (L4 excluded due to degenerative changes.) The bone mineral density of the left total hip is 1.042 g/cm2, corresponding to a T-score of 0.3, and a Z-score of 0.8. This is indicative of normal bone mineral density. The bone mineral density of the left femoral neck is 1.042 g/cm2, corresponding to a T-score of 0, and a Z-score of 0.9. This is indicative of normal bone mineral density. FRACTURE RISK: The FRAX index suggests a ten year probability of major osteoporotic fracture of 5.4%, and of hip fracture 0.2%. MM/XR DEXA axial skeleton IMPRESSION: Based on bone mineral density, and according to World Health Organization (WHO) criteria, the diagnosis is consistent with osteopenia based on T score of -1.5 in the spine. Statistically, 68% of repeat scans fall within 1 SD (+/- 0.010 g/cm2 for AP spine L1-L4) and 1 SD (+/- 0.012 g/cm2 for femur total) FRAX is a trademark of the [employer] [place] for Metabolic Bone Disease, a World Health Organization (WHO) Collaborating Center. Electronically signed by: Isabella Garcia MD 12/15/2024 01:51 PM EDT RP Dictated By: Isabella Garcia MD Signed By: <Electronically signed by Isabella Garcia MD in OV> 12/15/24 1351 DD/ 1339 TD/TT: 12/15/24 1343 [employer] Worker: MATHEW Procedure Note Donotuseinterpreter, Image - 12/15/2024 [facility] [address] [place] [address] [place] [address] Mammography Report Signed Patient: Trish Cameron [facility]#: [id number] : 1955cct:[id number] Age/Sex: 68 / FADM Date: 12/15/24 Loc: HOJennaMAMMO Attending Dr: Ethel Chase DO Ordering Physician: Ethel Chaseults: Date of Service: 12/15/24Follow Up: Procedure(s): XR DEXA axial skeleton Accession Number(s): [id number] cc: Ethel Chase DO Reason For Exam: osteoporosis screening EXAMINATION: DXA BONE DENSITY AXIAL HISTORY: osteoporosis screening TECHNIQUE: [employer] Dual energy absorptiometry (DEXA) of the lumbar spine, total left hip, and femoral neck was performed. COMPARISON: None FINDINGS: The bone mineral density of the lumbar spine from L1 to L3 is 0.996 g/cm2, corresponding to a T-score of -1.5, and a Z-score of -1.0. This is indicative of osteopenia. (L4 excluded due to degenerative changes.) The bone mineral density of the left total hip is 1.042 g/cm2, corresponding to a T-score of 0.3, and a Z-score of 0.8. This is indicative of normal bone mineral density. The bone mineral density of the left femoral neck is 1.042 g/cm2, corresponding to a T-score of 0, and a Z-score of 0.9. This is indicative of normal bone mineral density. FRACTURE RISK: The FRAX index suggests a ten year probability of major osteoporotic fracture of 5.4%, and of hip fracture 0.2%. MM/XR DEXA axial skeleton IMPRESSION: Based on bone mineral density, and according to World Health Organization (WHO) criteria, the diagnosis is consistent with osteopenia based on T score of -1.5 in the spine. Statistically, 68% of repeat scans fall within 1 SD (+/- 0.010 g/cm2 for AP spine L1-L4) and 1 SD (+/- 0.012 g/cm2 for femur total) FRAX is a trademark of the [employer] [place] for Metabolic Bone Disease, a World Health Organization (WHO) Collaborating Center. Electronically signed by: Isabella Garcia MD 12/15/2024 01:51 PM EDT RP Dictated By: Isabella Garcia MD Signed By: <Electronically signed by Isabella Garcia MD in OV> 12/15/24 1351 DD/ 1339 TD/TT: 12/15/24 1343 [employer] Worker: MATHEW Ethel Chase DO IMG DXA PROCEDURES Edited Re sult - Final * (ABNORMAL) POCT LENCHO-14 Urine Drug Screen (12/01/2024 9:04 AM EDT) THC Negative Negative Cocaine Screen, Urine Negative Negative Opiate Screen, Urine Negative Negative Methamphetamine Screen Urine Negative Negative Amphetamine Screen, Urine Negative Negative Benzodiazepines Screen, Urine Positive(A) Negative Comment:On lorazepam - outsi de provider Barbiturate Screen, Urine Negative Negative Methadone Screen, Urine Negative Negative Buprenophine Screen, Urine Negative Negative TCA, Urine Negative Negative MDMA Urine Negative Negative ng/mL Oxycodone Screen, Urine Positive(A) 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 12/01/25 Internal Pass Control Ethel Chase DO POINT OF CARE TEST ENTER/MARGARITA T ORDERABLES Final Result * Vitamin D, 25-Hydroxy, Total, Immunoassay (10/16/2024 9:15 AM EDT) Vitamin D 25-OH Total 38.4 >30 ng/mL [facility] Comment: Health Based Reference Values*< 20 ng/mL [id number] ng/mL Insufficient> 30 ng/mL Sufficient*Nivia ACOSTA. N [...] 9:15 AM EDT 10/16/2024 11:51 AM EDT us Ethel Chase DO LAB BLOOD ORDERABLES Final R esult [facility] [address] [place] [phone] * Vitamin B12 (Cobalamin) and Folate Panel, Serum (10/16/2024 9:15 AM EDT) Vitamin B12 331 200 - 900 pg/mL [facility] Comment:NORMAL 200-900 PG/ML INDETERMINATE 160-199 PG/ML DEFICIENT < 160 PG/ML Folate 18.2 > or = 4.0 ng/mL [facility] Comment:Reference Values:> o r = 4.0 ng/mL< 4.0 ng/mL suggests folate deficiency Methotrexate, aminopterin and folinic acid(leucovorin) are chemotherapeutic agents whose molecularstructures are similar to folate; therefore, the Architectfolate assay cannot be used for patients using these drugs. 10/16/2024 9:15 AM EDT 10/16/2024 11:51 AM EDT us Ethel Chase DO LAB BLOOD ORDERABLES Final R esult Performing Organization Address City/[facility]/ZIP Co de Phone Number [facility] [address] [place] [address] [phone] * Albumin, Random Urine W/Creatinine (10/16/2024 9:15 AM EDT) Creatinine, Urine 74.63 mg/dL [facility] Microalbumin Urine <5.0 mg/L [facility] Microalbum Creatinine Ratio Ur TNP <30 ug/mg cr [facility] Comment:Unable to calculate albumin/creatinine ratio due to lowmicroalbumin or creatinine result. 10/16/2024 9:15 AM EDT 10/16/2024 11:49 AM EDT us Ethel Chase DO LAB URINE ORDERABLES Final R esult Performing Organization Address [facility] Co de Phone Number [facility] [address] [place] [address] [phone] * (ABNORMAL) Iron And Total Iron Binding Capacity (10/16/2024 9:15 AM EDT) Iron 37 30 - 160 mcg/dL [facility] Total Iron Binding Capacity 269 228 - 428 mcg/dL [facility] Percent Iron Saturation 14(L) 15 - 50 % [facility] Unsaturated Iron Binding 232 ug/dL [facility] 10/16/2024 9:15 AM EDT 10/16/2024 11:51 AM EDT us Ethel Chase DO LAB BLOOD ORDERABLES Final R esult Performing Organization Address [facility]/ZIP Co de Phone Number [facility] [address] [place] [phone] [phone] * TSH (10/16/2024 9:15 AM EDT) Thyroid Stimulating Hormone 3.25 0.32 - 4.0 uIU/mL [facility] Comment:Note: A sustained TS H level above 2.5 uIU/mL may warrant further investigation. TSH 3rd Generation ([facility]) 10/16/2024 9:15 AM EDT 10/16/2024 11:51 AM EDT Ethel Chase DO LAB BLOOD ORDERABLES Final R esult Performing Organization Address City/[facility]/ZIP Co de Phone Number [facility] [address] [place] [phone] * T4, Free (10/16/2024 9:15 AM EDT) Free T4 (Free Thyroxine) 0.98 0.71 - 1.85 ng/dL [facility] Blood Venous blood specimen / Unknown 10/16/2024 9:15 AM EDT 10/16/2024 11:51 AM EDT Ethel Chase DO LAB BLOOD ORDERABLES Final R esult Performing Organization Address City/[facility]/ZIP Co de Phone Number [facility] [address] [place] [phone] * Ferritin (10/16/2024 9:15 AM EDT) Ferritin 46 10 - 250 ng/mL [facility] 10/16/2024 9:15 AM EDT 10/16/2024 11:51 AM EDT Ethel Chase DO LAB BLOOD ORDERABLES Final R esult Performing Organization Address City/[facility]/ZIP Co de Phone Number [facility] [address] [place] [phone] * (ABNORMAL) Basic Metabolic Panel (10/16/2024 9:15 AM EDT) Pathologist [facility] Sodium 137 135 - 145 mmol/L [facility] Potassium 4.4 3.3 - 5.1 mmol/L [facility] Chloride 103 96 - 108 mmol/L [facility] Carbon Dioxide 26 22 - 29 mmol/L [facility] Anion Gap 12 12 - 20 [facility] Urea Nitrogen (BUN) 13 9 - 16 mg/dL [facility] Creatinine, Serum 1.10 0.5 - 1.4 mg/dL [facility] Estimated Glomerular Filt Rate 49 [facility] Comment:Chronic Kidney Disea se: Estimated GFR < 60 mL/min/1.06i3Dvevas Kidney Disease: Estimated GFR < 15 mL/min/1.73m2 Glucose 318(H) 60 - 115 mg/dL [facility] Calcium 9.0 8.4 - 10.2 mg/dL [facility] Blood Venous blood specimen / Unknown 10/16/2024 9:15 AM EDT 10/16/2024 11:51 AM EDT us Gail Jc MD LAB BLOOD ORDERABLES Fin al Result [facility] [address] [place] [phone] * Lipid Panel, Standard (06/30/2024 10:10 AM EDT) Pathologist [facility] Triglycerides 126 <150 mg/dL [facility] Comment:Desirable Triglyceri de: less than 150 mg/dLBorderline High Triglyceride 150-199 mg/dLHigh Triglyceride: 200-499 mg/dLVery High Triglyceride: greater than or equal to 5OO mg/dL Cholesterol 113 <200 mg/dL [facility] Comment:Desirable Cholestero l: less than 200 mg/dLBorderline High Cholesterol: 200-239 mg/dLHigh Cholesterol: greater than 239 mg/dL LDL Cholesterol Calculated 46 <100 mg/dL [facility] Comment:Desirable LDL: less than 100 mg/dLNear Optimal/Above Optimal LDL: 110- 129 mg/dLBorderline High LDL: 130-159 mg/dLHigh LDL: 160-189 mg/dLVery High LDL: greater than or equal to 190 mg/dL HDL Cholesterol 42 >40 mg/dL [facility] Comment:Desirable HDL: great er than 40 mg/dL Note: This HDL assay may give artificially low results in patients with liver disease. Blood Venous blood specimen / Unknown 06/30/2024 10:10 AM EDT 06/30/2024 11:19 AM EDT us Ethel Chase DO LAB BLOOD ORDERABLES Final R esult [facility] [address] [place] [phone] * BI Mammogram Screening Tomosynthesis Bilateral (08/06/2023 11:15 AM EDT) Anatomical Region Laterality Modality Breast Bilateral Mammography 08/06/2023 11:1 5 AM EDT Narrative 09/05/2023 9:40 AM EDT [address] [place] [address] Mammography Report Signed Patient: Trish Cameron MR#: [id number] : 1955 Acct:[id number] Age/Sex: 67 / F ADM Date: 08/06/23 Loc: HO.MAMMO Attending Dr: Ethel Chase DO Ordering Physician: Ethel Chase DO Results: 1N egative Date of Service: 08/06/23 Follow Up: 1 Year From Orig ina Mammogram Procedure(s): MM tomosynthesis screening BI Accession Number(s): [id number] cc: Ethel Chase DO EXAMINATION: MM SCREENING [...] in OV> 09/05/23 0936 DD/ 1115 TD/TT: [employer] Worker: Procedure Note Donotuseinterpreter, Image - 09/05/2023 [facility]'[address] [place] [address] Mammography Report Signed Patient: Trish Cameron MMR#: [id number] : 6Acct:[id number] Age/Sex: 67 / FADM Date: 08/06/23 Loc: JOSE MIGUELO Attending Dr: Ethel Chase DO Ordering Physician: Ethel Chaseults: 1N egative Date of Service: 08/06/23Follow Up: 1 Year From Orig ina Mammogram Procedure(s): MM tomosynthesis screening BI Accession Number(s): [id number] cc: Ethel Chase DO EXAMINATION: MM SCREENING [...] in OV> 09/05/23 0936 DD/ 1115 TD/TT: [employer] Worker: Ethel Chase DO IMG BI PROCEDURES Final Resu lt * HEPATITIS C ANTIBODY RFLX (10/31/2019 9:40 AM EDT) Pathologist [facility] HEPATITIS C ANTIBODY NONREACTIVE NONREACTIVE [facility] Comment: Antibodies to HCV not detected; does not exclude early acute HCV infection. 10/31/2019 9:40 AM EDT Ethel Chase DO HISTORICAL/NON ORDERABLE LAB S Final Result [facility] [address] [place] [address], * Colonoscopy (03/03/2019) Pathologist [facility] Colonoscopy follow up in 5 years Historical Provider HEALTH MAINTENANCE Edited Result - Final from Last 3 Months or Most Recently Relevant to Health Maintenance Insurance [id number] OPTIONS (O D-SNP) Care Teams Supervisor Hot Dip Plating Relationship Specialty Start Date End Date Ethel Chase DO [address] [place] [address] PCP - General Family Medicine 10/12/13 Vaishnavi Laird PharmD [address] [place] [address] Pharmacist Internal Medicine 02/07/23
--- OUTSIDE RECORDS SUMMARY | 2025-01-06 21:03 | XMS_ITS | Clinical Summary ---
Author Organization [facility] Address [address] [facility] [address] [place] [address] Phone Care Team Providers Care Automobile Body Repairer Name Role Phone Ethel Chase Primary Care Provider [phone] Social History Tobacco Use Types Packs/Day Years [...] MEDICARE REPLACEMENT MEDICARE REPLACEMENT JOSÉ MIGUEL HERRING [id number] Care Teams Automobile Body Repairer Relationship Specialty Start Date End Date Salvatore EthelDO [address] [place] [address] PCP - General Family Medicine 12/19/23 Additional Source Comments The information contained in this document represents components of the legal health record. It is not the complete legal health record.[facility]
--- OUTSIDE RECORDS SUMMARY | 2025-01-06 21:04 | XMS_ITS | Encounter Summary ---
Author Organization [employer] Address [address] [place] [address] 7[address] [place] [address] Care Team Providers Care Category Development Manager Name Role Phone Ethel Chase DO Primary Care Provider [phone] Vaishnavi Laird PharmD Unavailable [phone] Reason for Visit * Reason Comments Med Refill Encounter Details Date Type Department Care Team ([facility] st Contact Info) Description 04/16/2024 Refill [facility] [address] [place] [address] Ethel Chase DO [address] [place] [address] Social History Tobacco Use Types Packs/Day Years [...] Description 01/27/2025 10:00 AM EST Medication Management [address] [address] Puia, Vaishnavi, PharmD [address] [place] [phone] 03/03/2025 9:00 AM EST Clinical Support [address] [address] Suad Wilson, MARY documented as of this [...] documented as of this encounter Care Teams Category Development Manager Relationship Specialty Start Date End Date Ethel Chase DO [address] [place] [phone] PCP - General Family Medicine 10/12/13 Vaishnavi Laird, BrianD [address] [place] [phone] Pharmacist Internal Medicine 02/07/23 [email or web address] 06/11/24 11/18/24 documented as of this encounter
--- OUTSIDE RECORDS SUMMARY | 2025-01-06 21:04 | XMS_ITS | Encounter Summary ---
Author Organization [employer] Address [address] [place] [address] 7t [place] [address] Care Team Providers Care Director Of Personnel Name Role Phone Ethel Chase Primary Care Provider [phone] Vaishnavi Laird PharmD Unavailable Encounter Details Date Type Department Care Team (Late Contact Info) Description 02/09/2022 Orders Only [facility] [address] [place] [address] Sadie Rivera, ANP [address] [place] [address] Social History Tobacco Use Types Packs/Day Years [...] Description 01/27/2025 10:00 AM EST Medication Management [address] [address] [place]ishnavi [place] [address] 03/03/2025 9:00 AM EST Clinical Support [address] [address] Suad Wilson RN documented as of this encounter Visit Diagnoses Not on filedocumented in this encounter Additional Health Concerns Assessment Noted Time PHQ-9 Depression Total Score: 0 02/08/20 22 10:43 AM EST documented as of this encounter Care Teams Director Of Personnel Relationship Specialty Start Date End [place] [address] PCP - General Family Medicine 10/12/13 Vaishnavi Laird PharmD [address] [place] [phone] Pharmacist Internal Medicine 02/07/23 [id number] 06/11/24 11/18/24 documented as of this encounter
--- OUTSIDE RECORDS SUMMARY | 2025-01-06 21:04 | XMS_ITS | Encounter Summary ---
Author Organization [employer] Address [address] [place] [address] 7[address] [place] [address] Care Team Providers Care Transportation Driver Name Role Phone Ethel Chase DO Primary Care Provider [phone] Vaishnavi Laird PharmD Unavailable [phone] Reason for Visit * Reason Onset Date Comments Appointment Request 03/02/2024 Encounter Details Date Type Department Care Team ([facility] st Contact Info) Description 03/02/2024 Telephone [facility] [address] [place] [address] Ethel Chase DO [address] [place] [address] Appointment Request Social History Tobacco Use Types [...] would like to reschedule. Please contact pt: [phone] (Azeri) documented in this encounter Plan of Treatment Upcoming Encounters Date Type Department Care Team (Late st Contact Info) Description 01/27/2025 10:00 AM EST Medication Management [facility] [address] [place] [phone] Vaishnavi Laird PharmD [address] [place] [address] 03/03/2025 9:00 AM EST Clinical Support [facility] [address] [place] [phone] Suad Wilson, RN documented as of this [...] documented as of this encounter Care Teams Transportation Driver Relationship Specialty Start Date End Date Ethel Chase DO [address] [place] [address] PCP - General Family Medicine 10/12/13 Vaishnavi Laird PharmD [address] [place] [address] Pharmacist Internal Medicine 02/07/23 [id number] 06/11/24 11/18/24 documented as of this encounter
--- OUTSIDE RECORDS SUMMARY | 2025-01-06 21:04 | XMS_ITS | Encounter Summary ---
Author Organization [facility] Address [address] [place] [address] Care Team Providers Care Internal Control Analyst Name Role Phone Matias Bowling MD Primary Care Provider [phone] Encounter Details Date Type Department Care Team (Late st Contact Info) Description 05/20/2024 Lab Requisition [facility] - Main Lab [address] [place] [address] Matias Bowling MD 38 [facility] [address] [place], [address] Essential (primary) hypertension Social History Tobacco [...] LAB CHEMISTRY METHOD 05/21/2024 11:29 AM EDT [facility] Potassium 5.9(H) 3.5 - 5.5 mmol/L LAB CHEMISTRY METHOD 05/21/2024 11:29 AM EDT [facility] Chloride [...] LAB CHEMISTRY METHOD 05/21/2024 11:29 AM EDT [facility] Total Bilirubin 0.3 0.0 - 1.4 mg/dL LAB CHEMISTRY METHOD 05/21/2024 11:29 AM EDT [facility] Blood Venous blood specimen / Unknown Venipuncture / Unknown 05/21/2024 5:43 AM EDT 05/21/2024 9:27 AM EDT us Matias Bowling MD LAB BLOOD ORDERABLES Final Resul t [facility] [address] [place] [address], [place] [phone] * (ABNORMAL) Complete blood count (05/21/2024 5:43 AM EDT) WBC 10.3 4.8 - 10.8 K/mcL LAB HEMETOLOGY METHOD 05/21/2024 10:10 AM T [facility] RBC 3.50(L) 3.80 - 4.80 M/mcL LAB HEMETOLOGY METHOD 05/21/2024 10:10 AM [facility] Hemoglobin 9.0(L) 11.5 - 16.0 g/dL LAB HEMETOLOGY METHOD 05/21/2024 10:10 AM T [facility] Hematocrit 30.0(L) 35.0 - 47.0 % LAB HEMETOLOGY METHOD 05/21/2024 10:10 AM EDT [facility] MCV 86.5 79.0 - 98.0 FL LAB HEMETOLOGY METHOD 05/21/2024 10:10 AM [facility] MCH 25.9(L) 27.0 - 32.0 pcg LAB HEMETOLOGY METHOD 05/21/2024 10:10 AM T [facility] MCHC 30.0(L) 32.0 - 37.0 g/dL LAB HEMETOLOGY METHOD 05/21/2024 10:10 AM EDT [facility] RDW 15.1(H) 11.0 - 15.0 % LAB HEMETOLOGY METHOD 05/21/2024 10:10 AM EDT [facility] Platelets 272 130 - 400 K/mcL LAB HEMETOLOGY METHOD 05/21/2024 10:10 AM EDT [facility] MPV 10.2 7.0 - 11.0 FL LAB HEMETOLOGY METHOD 05/21/2024 10:10 AM EDT [facility] NRBC 0.0 <1.0 % LAB HEMETOLOGY METHOD 05/21/2024 10:10 AM EDT [facility] NRBC Absolute 0.00 <0.10 K/mcL LAB HEMETOLOGY METHOD 05/21/2024 10:10 AM EDT [facility] Blood Venous blood specimen / Unknown Venipuncture / Unknown 05/21/2024 5:43 AM EDT 05/21/2024 9:27 AM EDT us Matias Bowling MD LAB BLOOD ORDERABLES Final Resul t [facility] [address] [place] [address], documented in this encounter Visit Diagnoses Diagnosis Essential (primary) hypertension Unspecified essential hypertension documented in this encounter Additional Health Concerns Infection Onset Date Last Indicated Resolved Time Gastrointestinal Rule-Out 04/28/2024 04/27/2024 7:06 PM EDT C. difficile 05/29/2024 05/29/2024 06/22/2024 7:04 PM EDT C. difficile Rule-Out 05/30/2024 05/29/20242024 9:47 AM EDT documented as of this encounter Care Teams Internal Control Analyst Relationship Specialty Start Date End Date Matias Bowling MD [address] [place] [address] PCP - General Family Medicine 04/16/24 documented as of this encounter
--- OUTSIDE RECORDS SUMMARY | 2025-01-06 21:04 | XMS_ITS | Encounter Summary ---
Author Organization [facility] Address [address] [place] [address] Care Team Providers Care Negative Stripper Name Role Phone Matias Bowling MD Primary Care Provider [phone] Encounter Details Date Type Department Care Team (Late st Contact Info) Description 05/27/2024 Lab Requisition [facility] - Main Lab [address] [place] [address] Matias Bowling MD 38 [facility] [address] [place], [phone] Essential (primary) hypertension Social History Tobacco [...] mmol/L LAB CHEMISTRY METHOD 05/28/2024 10:13 AM [facility] CO2 28 21 - 32 mmol/L LAB CHEMISTRY METHOD 05/28/2024 10:13 AM [facility] Anion Gap 6 3 - 11 LAB CHEMISTRY METHOD 05/28/2024 10:13 AM [facility] Glucose 141(H) 70 - 100 mg/dL LAB CHEMISTRY METHOD 05/28/2024 10:13 AM [facility] BUN 13 5 - 25 mg/dL LAB CHEMISTRY METHOD 05/28/2024 10:13 AM [facility] Creatinine 1.21(H) 0.50 - 1.10 mg/dL LAB CHEMISTRY METHOD 05/28/2024 10:13 AM [facility] eGFR 49(L) >=60 mL/min/1. 73m2 LAB CHEMISTRY METHOD 05/28/2024 10:13 AM [facility] Comment:Calculation based on the Chronic Kidney Disease Epidemiology Collaboration (CKD-EPI) equation refit without adjustment for race. BUN/Creatinine Ratio 10.7 LAB CHEMISTRY METHOD 05/28/2024 10:13 AM [facility] Calcium 8.6 8.5 - 10.5 mg/dL LAB CHEMISTRY METHOD 05/28/2024 10:13 AM [facility] AST (SGOT) 12 10 - 42 unit/L LAB CHEMISTRY METHOD 05/28/2024 10:13 AM [facility] ALT (SGPT) 19 10 - 60 unit/L LAB CHEMISTRY METHOD 05/28/2024 10:13 AM [facility] Alkaline Phosphatase 147(H) 42 - 121 unit/L LAB CHEMISTRY METHOD 05/28/2024 10:13 AM [facility] Total Protein 6.3 6.0 - 8.0 g/dL LAB CHEMISTRY METHOD 05/28/2024 10:13 AM [facility] Albumin 3.1(L) 3.2 - 5.0 g/dL LAB CHEMISTRY METHOD 05/28/2024 10:13 AM EDT [facility] Total Bilirubin 0.2 0.0 - 1.4 mg/dL LAB CHEMISTRY METHOD 05/28/2024 10:13 AM [facility] Blood Venous blood specimen / Unknown Venipuncture / Unknown 05/28/2024 5:02 AM EDT 05/28/2024 9:04 AM EDT us Matias Bowling MD LAB BLOOD ORDERABLES Final Resul t [facility] [address] [place] [address], [place] [phone] * (ABNORMAL) Complete blood count (05/28/2024 5:02 AM EDT) WBC 10.3 4.8 - 10.8 K/mcL LAB HEMETOLOGY METHOD 05/28/2024 9:26 AM [facility] RBC 3.30(L) 3.80 - 4.80 M/mcL LAB HEMETOLOGY METHOD 05/28/2024 9:26 AM [facility] Hemoglobin 8.7(L) 11.5 - 16.0 g/dL LAB HEMETOLOGY METHOD 05/28/2024 9:26 AM [facility] Hematocrit 28.7(L) 35.0 - 47.0 % LAB HEMETOLOGY METHOD 05/28/2024 9:26 AM [facility] MCV 87.0 79.0 - 98.0 FL LAB HEMETOLOGY METHOD 05/28/2024 9:26 AM [facility] MCH 26.4(L) 27.0 - 32.0 pcg LAB HEMETOLOGY METHOD 05/28/2024 9:26 AM [facility] MCHC 30.3(L) 32.0 - 37.0 [...] Resul t [facility] [address] [place] [address], documented in this encounter Visit Diagnoses Diagnosis Essential (primary) hypertension Unspecified essential hypertension documented in this encounter Additional Health Concerns Infection Onset Date Last Indicated Resolved Time C. difficile 05/29/2024 05/29/2024 06/22/2024 7:04 PM EDT C. difficile Rule-Out 05/30/2024 05/29/20242024 9:47 AM EDT documented as of this encounter Care Teams Negative Stripper Relationship Specialty Start Date End Date Matias Bowling MD [address] [place] [phone] PCP - General Family Medicine 04/16/24 documented as of this encounter
--- OUTSIDE RECORDS SUMMARY | 2025-01-06 21:04 | XMS_ITS | Encounter Summary ---
Author Organization [facility] Address [address] [place] [address] Care Team Providers Care Entry Level Accountant Name Role Phone Matias Bowling MD Primary Care Provider [phone] Encounter Details Date Type Department Care Team (Late st Contact Info) Description 04/30/2024 Lab Requisition [facility] - Main Lab [address] [place] [address] Matias Bowling MD 38 [facility] [address] [place], [address] Essential (primary) hypertension Social History Tobacco [...] CHEMISTRY METHOD 05/01/2024 12:26 PM EST [facility] Potassium 4.7 3.5 - 5.5 mmol/L LAB CHEMISTRY METHOD 05/01/2024 12:26 PM EST [facility] Chloride 110 96 - 110 mmol/L LAB CHEMISTRY METHOD 05/01/2024 12:26 PM [facility] CO2 21 21 - 32 mmol/L LAB CHEMISTRY METHOD 05/01/2024 12:26 PM [facility] Anion Gap 11 3 - 11 LAB CHEMISTRY METHOD 05/01/2024 12:26 PM [facility] Glucose 138(H) 70 - 100 mg/dL LAB CHEMISTRY METHOD 05/01/2024 12:26 PM [facility] BUN 18 5 - 25 mg/dL LAB CHEMISTRY METHOD 05/01/2024 12:26 PM [facility] Creatinine 1.07 0.50 - 1.10 mg/dL LAB CHEMISTRY METHOD 05/01/2024 12:26 PM [facility] eGFR 57(L) >=60 mL/min/1. 73m2 LAB CHEMISTRY METHOD 05/01/2024 12:26 PM [facility] Comment:Calculation based on the Chronic Kidney Disease Epidemiology Collaboration (CKD-EPI) equation refit without adjustment for race. BUN/Creatinine Ratio 16.8 LAB CHEMISTRY METHOD 05/01/2024 12:26 PM [facility] Calcium 9.3 8.5 - 10.5 mg/dL LAB CHEMISTRY METHOD 05/01/2024 12:26 PM [facility] Blood Venous blood specimen / Unknown Venipuncture / Unknown 05/01/2024 4:57 AM EST 05/01/2024 11:00 AM EST us Matias Bowling MD LAB BLOOD ORDERABLES Final Resul t [facility] [address] [place] [address], * (ABNORMAL) Complete blood count (05/01/2024 4:57 AM EST) WBC 9.9 4.8 - 10.8 K/mcL LAB HEMETOLOGY METHOD 05/01/2024 11:34 AM [facility] RBC 3.50(L) 3.80 - 4.80 M/mcL LAB HEMETOLOGY METHOD 05/01/2024 11:34 AM [facility] Hemoglobin 9.3(L) 11.5 - 16.0 g/dL LAB HEMETOLOGY METHOD 05/01/2024 11:34 AM [facility] Hematocrit 31.7(L) 35.0 - 47.0 % LAB HEMETOLOGY METHOD 05/01/2024 11:34 AM [facility] MCV 90.3 79.0 - 98.0 FL LAB HEMETOLOGY METHOD 05/01/2024 11:34 AM [facility] MCH 26.5(L) 27.0 - 32.0 pcg LAB HEMETOLOGY METHOD 05/01/2024 11:34 AM [facility] MCHC 29.3(L) 32.0 - 37.0 g/dL LAB HEMETOLOGY METHOD 05/01/2024 11:34 AM [facility] RDW 14.7 11.0 - 15.0 % LAB HEMETOLOGY METHOD 05/01/2024 11:34 AM [facility] Platelets 312 130 - 400 K/mcL LAB HEMETOLOGY METHOD 05/01/2024 11:34 AM [facility] MPV 10.3 7.0 - 11.0 FL LAB HEMETOLOGY METHOD 05/01/2024 11:34 AM [facility] NRBC 0.0 <1.0 % LAB HEMETOLOGY METHOD 05/01/2024 11:34 AM [facility] NRBC Absolute 0.00 <0.10 K/mcL LAB HEMETOLOGY METHOD 05/01/2024 11:34 AM [facility] Blood Venous blood specimen / Unknown Venipuncture / Unknown 05/01/2024 4:57 AM EST 05/01/2024 11:00 AM EST us Matias Bowling MD LAB BLOOD ORDERABLES Final Resul t [facility] [address] [place] [address], documented in this encounter Visit Diagnoses Diagnosis Essential (primary) hypertension Unspecified essential hypertension documented in this encounter Additional Health Concerns Infection Onset Date Last Indicated Resolved Time Gastrointestinal Rule-Out 04/28/2024 04/27/2024 7:06 PM EDT C. difficile 05/29/2024 05/29/2024 06/22/2024 7:04 PM EDT C. difficile Rule-Out 05/30/2024 05/29/20242024 9:47 AM EDT documented as of this encounter Care Teams Entry Level Accountant Relationship Specialty Start Date End Date Matias Bowling MD [address] [place] [phone] PCP - General Family Medicine 04/16/24 documented as of this encounter
--- OUTSIDE RECORDS SUMMARY | 2025-01-06 21:04 | XMS_ITS | Encounter Summary ---
Author Organization [employer] Address [address] [place] [address] 7[address] [place] [address] Care Team Providers Care Plum Packer Name Role Phone Ethel Chase DO Primary Care Provider Vaishnavi Laird PharmD Unavailable Reason for Visit * Reason Comments Med Refill Encounter Details Date Type Department Care Team ([facility] st Contact Info) Description 02/07/2022 Refill [facility] MEDICINE [address] [place] [address] Ethel Chase DO [address] [place] [address] Diverticular disease (Primary Dx) Social History Tobacco [...] but did send cipro and metro to [facility] requested. * Telephone Encounter - Susan Guillaume RN - 02/09/2022 3:31 PM EST TC placed to pt [phone] scan showed mild diverticulitis. Pt [...] is requesting medications to be sent to [facility] on [facility] [employer] in [facility] she cannot get to [facility] pharmacy before they close. RN will queue [...] scan results are back yet. RN checked [employer] system and results not yet available. CT was ordered STAT. RN called [facility] radiology who reports they do not have a crossbar switch adjuster on site or Saturday and RN would have to call [facility] at [phone] and speak to [employer] to request results to be read. RN called [phone] however phone rang continuously without an automated recording w/ options ora VM. RN returned call to [facility] to inform them no one answered at [facility] and the phone just kept ringing. [facility] confirmed the number is correct and reports they will send a message to [facility] to ask them to interpret the CT scan. RN will check before end of the day for interpretation report. * Telephone Encounter - Arcelia Wylie - 02/08/2022 2:07 PM EST Tc from [facility] requesting lab ordered be refaxed, caption writer refaxed to [phone] * Telephone Encounter - Ethel Chase DO - 02/07/2022 3:51 PM EST Rx already sent. documented in this encounter Plan of Treatment Upcoming Encounters Date Type Department Care Team (Late st Contact Info) Description 01/27/2025 10:00 AM EST Medication Management [address] [address] Vaishnavi Laird PharmD [address] [place] [address] 03/03/2025 9:00 AM EST Clinical Support [facility] MEDICINE [address] [place] [address] Suad Wilson RN documented as of this encounter Visit Diagnoses Diagnosis Diverticular disease- Primary Diverticulosis of colon (without mention of hemorrhage) documented in this encounter Additional Health Concerns Assessment Noted Time PHQ-9 Depression Total Score: 0 02/08/20 10:43 AM EST documented as of this encounter Care Teams Plum Packer Relationship Specialty Start Date End Date Ethel Chase DO [address] [place] [address] PCP - General Family Medicine 10/12/13 Vaishnavi Laird, PharmD [address] [place] [address] Pharmacist Internal Medicine 02/07/23 [id number] 06/11/24 11/18/24 documented as of this encounter
--- OUTSIDE RECORDS SUMMARY | 2025-01-06 21:04 | XMS_ITS | Encounter Summary ---
Author Organization [facility] Address [address] [place] [address] Care Team Providers Care Energy Audit Advisor Name Role Phone Matias Bowling MD Primary Care Provider [phone] Encounter Details Date Type Department Care Team (Late st Contact Info) Description 04/29/2024 Lab Requisition [facility] - Main Lab 299 [facility] [place] [address] Matias Bowling MD 38 [facility] [address] [facility] [address] Essential (primary) hypertension Social History [...] as of this encounter Care Teams Energy Audit Advisor Relationship Specialty Start Date End Date Matias Bowling MD 38 [facility] 204 [place] [address] PCP - General Family Medicine 04/16/24 documented as of this encounter
--- OUTSIDE RECORDS SUMMARY | 2025-01-06 21:04 | XMS_ITS | Encounter Summary ---
Author Organization [facility] Address [address] [place] [address] Care Team Providers Care Loft Worker Pile Driving Name Role Phone Matias Bowling MD Primary Care Provider [phone] Encounter Details Date Type Department Care Team (Late st Contact Info) Description 04/28/2024 Lab Requisition [facility] - Main Lab 299 [facility] [place] [address] Matias Bowling MD 38 [facility] 204 [facility] [address] Diarrhea, unspecified Social History Tobacco [...] documented as of this encounter Care Teams Loft Worker Pile Driving Relationship Specialty Start Date End Date Matias Bowling MD 38 [facility] 204 [place] [address] PCP - General Family Medicine 04/16/24 documented as of this encounter
--- OUTSIDE RECORDS SUMMARY | 2025-01-06 21:04 | XMS_ITS | Encounter Summary ---
Author Organization [facility] Address [address] [place] [address] Care Team Providers Care Manager Video Games Name Role Phone Matias Bowling MD Primary Care Provider [phone] Encounter Details Date Type Department Care Team (Late st Contact Info) Description 05/22/2024 Lab Requisition [facility] - Main Lab 299 [place] [address] Matias Bowling MD 38 [facility] 204 [place], [address] 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 classified elsewhere (CMS/HCC [...] LAB CHEMISTRY METHOD 05/22/2024 11:37 AM EDT [facility]) [facility] Potassium 5.2 3.5 - 5.5 [...] Resul t [facility] 299 [place] [address], * (ABNORMAL) Complete blood count (05/22/2024 8:23 AM EDT) [facility] WBC 9.8 4.8 - 10.8 K/mcL LAB HEMETOLOGY METHOD 05/22/2024 11:21 AM [facility] LAB RBC 3.60(L) 3.80 - 4.80 M/mcL LAB HEMETOLOGY METHOD 05/22/2024 11:21 AM [facility] LAB Hemoglobin 9.5(L) 11.5 - 16.0 g/dL LAB HEMETOLOGY METHOD 05/22/2024 11:21 AM [facility] LAB Hematocrit 31.2(L) 35.0 - 47.0 % LAB HEMETOLOGY METHOD 05/22/2024 11:21 AM [facility] LAB MCV 86.4 79.0 - 98.0 FL LAB HEMETOLOGY METHOD 05/22/2024 11:21 AM [facility] LAB MCH 26.3(L) 27.0 - 32.0 pcg LAB HEMETOLOGY METHOD 05/22/2024 11:21 AM [facility] LAB MCHC 30.4(L) 32.0 - 37.0 g/dL LAB HEMETOLOGY METHOD 05/22/2024 11:21 AM [facility] LAB RDW 14.7 11.0 - 15.0 % LAB HEMETOLOGY METHOD 05/22/2024 11:21 AM [facility] LAB Platelets 278 130 - 400 K/mcL LAB HEMETOLOGY METHOD 05/22/2024 11:21 AM [facility] LAB MPV 10.5 7.0 - 11.0 FL LAB HEMETOLOGY METHOD 05/22/2024 11:21 AM [facility] LAB NRBC 0.0 <1.0 % LAB HEMETOLOGY METHOD 05/22/2024 11:21 AM [facility] LAB NRBC Absolute 0.00 <0.10 K/mcL LAB HEMETOLOGY METHOD 05/22/2024 11:21 AM EDT [facility] Blood Venous blood specimen / Unknown Venipuncture / Unknown 05/22/2024 8:23 AM EDT 05/22/2024 10:31 AM EDT us Matias Bowling MD LAB BLOOD ORDERABLES Final Resul t [facility] [address] [place] [address], documented in this encounter Visit Diagnoses Diagnosis 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 classified elsewhere (CMS/HCC V24, CMS/HCC V28) Hyperlipidemia, unspecified documented in this encounter Additional Health Concerns Infection Onset Date Last Indicated Resolved Time Gastrointestinal Rule-Out 04/28/2024 04/27/2024 7:06 PM EDT C. difficile 05/29/2024 05/29/2024 06/22/2024 7:04 PM EDT C. difficile Rule-Out 05/30/2024 05/29/20242024 9:47 AM EDT documented as of this encounter Care Teams Manager Video Games Relationship Specialty Start Date End Date Matias Bowling MD [address] [place] [address] 204 [place] [address] PCP - General Family Medicine 04/16/24 documented as of this encounter
--- OUTSIDE RECORDS SUMMARY | 2025-01-06 21:04 | XMS_ITS | Encounter Summary ---
Author Organization [facility] Address [address] [place] [address] Care Team Providers Care Math And Science Division Chair Name Role Phone Matias Bowling MD Primary Care Provider [phone] Encounter Details Date Type Department Care Team (Late st Contact Info) Description 04/29/2024 Lab Requisition [facility] - Main Lab 299 [place] [address] Matias Bowling MD 38 [facility] 204 [place], [address] Hyperlipidemia, unspecified; 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 classified [...] LAB CHEMISTRY METHOD 04/29/2024 2:49 PM EST [facility] Potassium 4.5 3.5 - [...] [facility] Comment:Calculation based on the Chronic [...] LAB CHEMISTRY METHOD 04/29/2024 2:49 PM EST [facility] Albumin 3.2 3.2 [...] Resul t [facility] 299 [place] [address], [place] [phone] * (ABNORMAL) Complete blood count (04/29/2024 6:35 [...] pcg LAB HEMETOLOGY METHOD 04/29/2024 11:28 AM [facility] MCHC 30.9(L) 32.0 - 37.0 g/dL LAB HEMETOLOGY METHOD 04/29/2024 11:28 AM EST [facility] RDW 14.6 11.0 [...] Resul t [facility] [address] [place] [address], documented in this encounter Visit Diagnoses Diagnosis Hyperlipidemia, unspecified 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 classified elsewhere (CMS/HCC V24, CMS/HCC V28) documented in this encounter Additional Health Concerns Infection Onset Date Last Indicated Resolved Time Gastrointestinal Rule-Out 04/28/2024 04/27/2024 7:06 PM EDT C. difficile 05/29/2024 05/29/2024 06/22/2024 7:04 PM EDT C. difficile Rule-Out 05/30/2024 05/29/20242024 9:47 AM EDT documented as of this encounter Care Teams Math And Science Division Chair Relationship Specialty Start Date End Date Matias Bowling MD [address] [place] [address] PCP - General Family Medicine 04/16/24 documented as of this encounter
--- OUTSIDE RECORDS SUMMARY | 2025-01-06 21:04 | XMS_ITS | Encounter Summary ---
Author Organization [facility] Address [address] [place] [address] Care Team Providers Care Insurance Operations Rep Name Role Phone Matias Bowling MD Primary Care Provider [phone] Encounter Details Date Type Department Care Team (Late st Contact Info) Description 05/30/2024 Lab Requisition [facility] - Main Lab 299 [facility] [place] [address] Matias Bowling MD 38 [facility] 204 [place], [address] Diarrhea, unspecified Social History Tobacco Use [...] ORDER MARGARET Final Result Performing Organization Address City/[facility]/ZIP Co de Phone Number [facility] [address] [place] [address], [place] [phone] * Occult blood stool, guaiac (05/29/2024 1:50 PM EDT) Occult Blood, Stool #1 Negative Negative 05/30/2024 9:30 AM EDT [facility] Stool Rectum structure / Unknown Non-blood Collection / Unknown 05/29/2024 1:50 PM EDT 05/30/2024 8:36 AM EDT Matias Bowling MD LAB BODY FLUIDS AND STOOLS ORDER MARGARET Final Result Performing Organization Address [facility]/ZIP Co de Phone Number [facility] [address] [place] [address], [place] [phone] * Ova and parasite examination (05/29/2024 1:50 [...] ORDER MARGARET Final Result Performing Organization Address [facility]/ZIP Co de Phone Number [facility] [address] [place] [address], [place] [phone] * Clostridium difficile toxin (05/29/2024 1:50 PM EDT) C difficile Toxins A+B, EIA 05/30/2024 9:47 AM EDT [facility] Comment:Refer to C. difficil e PCR assay for results. Stool Rectum structure / Unknown Non-blood Collection / Unknown 05/29/2024 1:50 PM EDT 05/30/2024 8:36 AM EDT Matias Bowling MD LAB MICROBIOLOGY - GENERAL ORDER MARGARET Final Result Performing Organization Address [facility] Co de Phone Number [facility] [address] [place] [address], [place] [phone] documented in this encounter Visit Diagnoses Diagnosis Diarrhea, unspecified documented in this encounter Additional Health Concerns Infection Onset Date Last Indicated Resolved Time C. difficile 05/29/2024 05/29/2024 06/22/2024 7:04 PM EDT C. difficile Rule-Out 05/30/2024 05/29/20242024 9:47 AM EDT documented as of this encounter Care Teams Insurance Operations Rep Relationship Specialty Start Date End Date Matias Bowling MD [address] [place] [address] 204 [place] [address] PCP - General Family Medicine 04/16/24 documented as of this encounter
== END ==
LOC: HO.SL 20:59
PROVIDERS: PCP Family Medicine; Visit Provider Family Medicine
DX: G47.30 Sleep apnea, unspecified (principal)
CPT/HCPCS: 95810

== ENCOUNTER 2025-01-15 09:13 | Outpatient (REF) | payer OTHER, SELFPAY ==
--- NOTE | ~2025-01-15 | XR_ITS ---
EXAMINATION: XR KNEE, LEFT CLINICAL INFORMATION: M25.562 - Pain in left knee COMPARISON: November 19, 2024 TECHNIQUE: AP view in standing position both knees. Lateral and sunrise views of the left knee. FINDINGS: Total right hip arthroplasty prosthesis that appears intact with normal alignment. Old traumatic deformity distal metaphysis left femur. Metallic prosthesis with a tibial and femoral component and a long intramedullary raffaele anchored with cement in both components. Mild loosening and the tibial component anteriorly and inferiorly. Well-corticated bone fragments in the soft tissues of the medial femoral condyle, unchanged. Vascular calcifications. XR/XR knee LT 3V IMPRESSION: Subtle loosening along the tibial plateau metallic prosthesis of the left femur. Electronically signed by: Titus Thomas MD 01/15/2025 09:37 AM EST
--- OUTSIDE RECORDS SUMMARY | 2025-01-18 10:15 | XMS_ITS | Encounter Summary ---
Author Organization [facility] Address [address] [place] [address] Care Team Providers Care Director Building Name Role Phone Matias Bowling MD Primary Care Provider [phone] Encounter Details Date Type Department Care Team (Late st Contact Info) Description 05/20/2024 Lab Requisition [facility] - Main Lab [address] [place] [address] Matias Bowling MD 38 [facility] [address] [place], [address] Essential (primary) hypertension Social History [...] LAB CHEMISTRY METHOD 05/21/2024 11:29 AM EDT [facility] Potassium 5.9(H) 3.5 - 5.5 mmol/L LAB CHEMISTRY METHOD 05/21/2024 11:29 AM EDT [facility] Chloride 102 96 - 110 mmol/L LAB CHEMISTRY METHOD 05/21/2024 11:29 AM [facility] CO2 27 21 - 32 mmol/L LAB CHEMISTRY METHOD 05/21/2024 11:29 AM [facility] Anion Gap 7 3 - 11 LAB CHEMISTRY METHOD 05/21/2024 11:29 AM [facility] Glucose 152(H) 70 - 100 mg/dL LAB CHEMISTRY METHOD 05/21/2024 11:29 AM [facility] BUN 21 5 - 25 mg/dL LAB CHEMISTRY METHOD 05/21/2024 11:29 AM [facility] Creatinine 2.30(H) 0.50 - 1.10 mg/dL LAB CHEMISTRY METHOD 05/21/2024 11:29 AM [facility] eGFR 23(L) >=60 mL/min/1. 73m2 LAB CHEMISTRY METHOD 05/21/2024 11:29 AM [facility] Comment:Calculation based on the Chronic Kidney Disease Epidemiology Collaboration (CKD-EPI) equation refit without adjustment for race. BUN/Creatinine Ratio 9.1 LAB CHEMISTRY METHOD 05/21/2024 11:29 AM [facility] Calcium 8.9 8.5 - 10.5 mg/dL LAB CHEMISTRY METHOD 05/21/2024 11:29 AM [facility] AST (SGOT) 23 10 - 42 unit/L LAB CHEMISTRY METHOD 05/21/2024 11:29 AM [facility] ALT (SGPT) 30 10 - 60 unit/L LAB CHEMISTRY METHOD 05/21/2024 11:29 AM [facility] Alkaline Phosphatase 174(H) 42 - 121 unit/L LAB CHEMISTRY METHOD 05/21/2024 11:29 AM [facility] Total Protein 6.7 6.0 - 8.0 g/dL LAB CHEMISTRY METHOD 05/21/2024 11:29 AM [facility] Albumin 3.3 3.2 - 5.0 g/dL LAB CHEMISTRY METHOD 05/21/2024 11:29 AM EDT [facility] Total Bilirubin 0.3 0.0 - 1.4 mg/dL LAB CHEMISTRY METHOD 05/21/2024 11:29 AM EDT [facility] Blood Venous blood specimen / Unknown Venipuncture / Unknown 05/21/2024 5:43 AM EDT 05/21/2024 9:27 AM EDT us Matias Bowling MD LAB BLOOD ORDERABLES Final Resul t [facility] [address] [place] [address], [place] [phone] * (ABNORMAL) Complete blood count (05/21/2024 5:43 AM EDT) WBC 10.3 4.8 - 10.8 K/mcL LAB HEMETOLOGY METHOD 05/21/2024 10:10 AM T [facility] RBC 3.50(L) 3.80 - 4.80 M/mcL LAB HEMETOLOGY METHOD 05/21/2024 10:10 AM [facility] Hemoglobin 9.0(L) 11.5 - 16.0 g/dL LAB HEMETOLOGY METHOD 05/21/2024 10:10 AM T [facility] Hematocrit 30.0(L) 35.0 - 47.0 % LAB HEMETOLOGY METHOD 05/21/2024 10:10 AM EDT [facility] MCV 86.5 79.0 - 98.0 FL LAB HEMETOLOGY METHOD 05/21/2024 10:10 AM [facility] MCH 25.9(L) 27.0 - 32.0 pcg LAB HEMETOLOGY METHOD 05/21/2024 10:10 AM T [facility] MCHC 30.0(L) 32.0 - 37.0 g/dL LAB HEMETOLOGY METHOD 05/21/2024 10:10 AM EDT [facility] RDW 15.1(H) 11.0 - 15.0 % LAB HEMETOLOGY METHOD 05/21/2024 10:10 AM EDT [facility] Platelets 272 130 - 400 K/mcL LAB HEMETOLOGY METHOD 05/21/2024 10:10 AM EDT [facility] MPV 10.2 7.0 - 11.0 FL LAB HEMETOLOGY METHOD 05/21/2024 10:10 AM EDT [facility] NRBC 0.0 <1.0 % LAB HEMETOLOGY METHOD 05/21/2024 10:10 AM EDT [facility] NRBC Absolute 0.00 <0.10 K/mcL LAB HEMETOLOGY METHOD 05/21/2024 10:10 AM EDT [facility] Blood Venous blood specimen / Unknown Venipuncture / Unknown 05/21/2024 5:43 AM EDT 05/21/2024 9:27 AM EDT us Matias Bowling MD LAB BLOOD ORDERABLES Final Resul t [facility] [address] [place] [address], documented in this encounter Visit Diagnoses Diagnosis Essential (primary) hypertension Unspecified essential hypertension documented in this encounter Additional Health Concerns Infection Onset Date Last Indicated Resolved Time Gastrointestinal Rule-Out 04/28/2024 04/27/2024 7:06 PM EDT C. difficile 05/29/2024 05/29/2024 06/22/2024 7:04 PM EDT C. difficile Rule-Out 05/30/2024 05/29/20242024 9:47 AM EDT documented as of this encounter Care Teams Director Building Relationship Specialty Start Date End Date Matias Bowling MD [address] [place] [address] PCP - General Family Medicine 04/16/24 documented as of this encounter
--- OUTSIDE RECORDS SUMMARY | 2025-01-18 10:15 | XMS_ITS | Encounter Summary ---
Author Organization [facility] Address [address] [place] [address] Care Team Providers Care Foreclosure Specialist Name Role Phone Matias Bowling MD Primary Care Provider [phone] Encounter Details Date Type Department Care Team (Late st Contact Info) Description 05/13/2024 Lab Requisition [facility] - Main Lab [address] [place] [address] Matias Bowling MD 38 [facility] [address] [place], [address] Essential (primary) hypertension Social History Tobacco [...] LAB CHEMISTRY METHOD 05/14/2024 11:24 AM EDT [facility] Potassium 5.2 3.5 - 5.5 mmol/L LAB CHEMISTRY METHOD 05/14/2024 11:24 AM EDT [facility] Chloride 108 96 [...] LAB CHEMISTRY METHOD 05/14/2024 11:24 AM EDT [facility] Total Bilirubin 0.2 0.0 - 1.4 mg/dL LAB CHEMISTRY METHOD 05/14/2024 11:24 AM T [facility] Blood Venous blood specimen / Unknown Venipuncture / Unknown 05/14/2024 6:06 AM EDT 05/14/2024 9:53 AM EDT us Matias Bowling MD LAB BLOOD ORDERABLES Final Resul t [facility] [address] [place] [address], [place] [phone] * (ABNORMAL) Complete blood count (05/14/2024 6:06 [...] LAB HEMETOLOGY METHOD 05/14/2024 10:16 AM EDT [facility] RDW 14.6 11.0 - 15.0 % LAB HEMETOLOGY METHOD 05/14/2024 10:16 AM EDT [facility] Platelets 275 130 - 400 K/mcL LAB HEMETOLOGY METHOD 05/14/2024 10:16 AM EDT [facility] MPV 10.1 7.0 - 11.0 FL LAB HEMETOLOGY METHOD 05/14/2024 10:16 AM EDT [facility] NRBC 0.0 <1.0 % LAB HEMETOLOGY METHOD 05/14/2024 10:16 AM EDT [facility] NRBC Absolute 0.00 <0.10 K/mcL LAB HEMETOLOGY METHOD 05/14/2024 10:16 AM EDT [facility] Blood Venous blood specimen / Unknown Venipuncture / Unknown 05/14/2024 6:06 AM EDT 05/14/2024 9:53 AM EDT us Matias Bowling MD LAB BLOOD ORDERABLES Final Resul t [facility] [address] [place] [address], documented in this encounter Visit Diagnoses Diagnosis Essential (primary) hypertension Unspecified essential hypertension documented in this encounter Additional Health Concerns Infection Onset Date Last Indicated Resolved Time Gastrointestinal Rule-Out 04/28/2024 04/27/2024 7:06 PM EDT C. difficile 05/29/2024 05/29/2024 06/22/2024 7:04 PM EDT C. difficile Rule-Out 05/30/2024 05/29/20242024 9:47 AM EDT documented as of this encounter Care Teams Foreclosure Specialist Relationship Specialty Start Date End Date Matias Bowling MD [address] [place] [address] PCP - General Family Medicine 04/16/24 documented as of this encounter
--- OUTSIDE RECORDS SUMMARY | 2025-01-18 10:15 | XMS_ITS | Encounter Summary ---
Author Organization [facility] Address [address] [place] [address] Care Team Providers Care Aircraft Shipping Checker Name Role Phone Matias Bowling MD Primary Care Provider [phone] Encounter Details Date Type Department Care Team (Late st Contact Info) Description 04/16/2024 Lab Requisition [facility] - Main Lab [address] [place] [address] Matias Bowling MD 38 [facility] [address] [place], [address] Essential (primary) hypertension Social History Tobacco [...] LAB CHEMISTRY METHOD 04/16/2024 11:36 AM EST [facility] Potassium 4.2 3.5 - 5.5 mmol/L LAB CHEMISTRY METHOD 04/16/2024 11:36 AM EST [facility] Chloride 103 96 - [...] Resul t [facility] [address] [place] [address], * (ABNORMAL) Complete blood count (04/16/2024 7:33 AM EST) WBC 11.5(H) 4.8 - 10.8 K/mcL LAB HEMETOLOGY METHOD 04/16/2024 11:12 AM [facility] RBC 3.70(L) 3.80 - 4.80 M/mcL LAB HEMETOLOGY METHOD 04/16/2024 11:12 AM [facility] [...] LAB HEMETOLOGY METHOD 04/16/2024 11:12 AM EST [facility] RDW 14.2 11.0 - 15.0 % LAB HEMETOLOGY METHOD 04/16/2024 11:12 AM EST [facility] Platelets 443(H) 130 - 400 K/mcL LAB HEMETOLOGY METHOD 04/16/2024 11:12 AM EST [facility] MPV 9.8 7.0 - 11.0 FL LAB HEMETOLOGY METHOD 04/16/2024 11:12 AM EST [facility] NRBC 0.0 <1.0 % LAB HEMETOLOGY METHOD 04/16/2024 11:12 AM EST [facility] NRBC Absolute 0.00 <0.10 K/mcL LAB HEMETOLOGY METHOD 04/16/2024 11:12 AM [facility] Blood Venous blood specimen / Unknown Venipuncture / Unknown 04/16/2024 7:33 AM EST 04/16/2024 10:20 AM EST us Matias Bowling MD LAB BLOOD ORDERABLES Final Resul t [facility] [address] [place] [address], documented in this encounter Visit Diagnoses Diagnosis Essential (primary) hypertension Unspecified essential hypertension documented in this encounter Additional Health Concerns Infection Onset Date Last Indicated Resolved Time Gastrointestinal Rule-Out 04/28/2024 04/27/2024 7:06 PM EDT C. difficile 05/29/2024 05/29/2024 06/22/2024 7:04 PM EDT C. difficile Rule-Out 05/30/2024 05/29/20242024 9:47 AM EDT documented as of this encounter Care Teams Aircraft Shipping Checker Relationship Specialty Start Date End Date Matias Bowling MD [address] [place] [address] [address] [place] [phone] PCP - General Family Medicine 04/16/24 documented as of this encounter
--- OUTSIDE RECORDS SUMMARY | 2025-01-18 10:15 | XMS_ITS | Encounter Summary ---
Author Organization [facility] Address [address] [place] [address] Care Team Providers Care Store Planner Name Role Phone Matias Bowling MD Primary Care Provider [phone] Encounter Details Date Type Department Care Team (Late st Contact Info) Description 04/29/2024 Lab Requisition [facility] - Main Lab [address] [place] [address] Matias Bowling MD 38 [facility] [address] [place], [address] Hyperlipidemia, unspecified; 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 classified [...] LAB CHEMISTRY METHOD 04/29/2024 2:49 PM EST [facility] Potassium 4.5 3.5 - [...] LAB CHEMISTRY METHOD 04/29/2024 2:49 PM EST [facility] Albumin 3.2 [...] t [facility] [address] [place] [address], [place] [phone] * (ABNORMAL) Complete blood count (04/29/2024 6:35 [...] LAB HEMETOLOGY METHOD 04/29/2024 11:28 AM EST [facility] [...] t [facility] [address] [place] [address], documented in this encounter Visit Diagnoses Diagnosis Hyperlipidemia, unspecified 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 classified elsewhere (CMS/HCC V24, CMS/HCC V28) documented in this encounter Additional Health Concerns Infection Onset Date Last Indicated Resolved Time Gastrointestinal Rule-Out 04/28/2024 04/27/2024 7:06 PM EDT C. difficile 05/29/2024 05/29/2024 06/22/2024 7:04 PM EDT C. difficile Rule-Out 05/30/2024 05/29/20242024 9:47 AM EDT documented as of this encounter Care Teams Store Planner Relationship Specialty Start Date End Date Matias Bowling MD [address] [place] [address] PCP - General Family Medicine 04/16/24 documented as of this encounter
--- OUTSIDE RECORDS SUMMARY | 2025-01-18 10:15 | XMS_ITS | Encounter Summary ---
Author Organization [facility] Address [address] [place] [address] Care Team Providers Care Senior Clinical Project Manager Name Role Phone Matias Bowling MD Primary Care Provider [phone] Encounter Details Date Type Department Care Team (Late st Contact Info) Description 04/30/2024 Lab Requisition [facility] - Main Lab [address] [place] [address] Matias Bowling MD 38 [facility] [address] [place], [address] Essential (primary) hypertension Social History Tobacco [...] PM [facility] Comment:Calculation based on the [...] Resul t [facility] [address] [place] [address], * (ABNORMAL) Complete blood count (05/01/2024 4:57 [...] LAB BLOOD ORDERABLES Final Resul t [facility] [address] [place] [address], documented in this encounter Visit Diagnoses Diagnosis Essential (primary) hypertension Unspecified essential hypertension documented in this encounter Additional Health Concerns Infection Onset Date Last Indicated Resolved Time Gastrointestinal Rule-Out 04/28/2024 04/27/2024 7:06 PM EDT C. difficile 05/29/2024 05/29/2024 06/22/2024 7:04 PM EDT C. difficile Rule-Out 05/30/2024 05/29/20242024 9:47 AM EDT documented as of this encounter Care Teams Senior Clinical Project Manager Relationship Specialty Start Date End Date Matias Bowling MD [address] [place] [address] PCP - General Family Medicine 04/16/24 documented as of this encounter
--- OUTSIDE RECORDS SUMMARY | 2025-01-18 10:15 | XMS_ITS | Encounter Summary ---
Author Organization [facility] Address [address] [place] [address] Care Team Providers Care Paint Roller Winder Name Role Phone Matias Bowling MD Primary Care Provider [phone] Encounter Details Date Type Department Care Team (Late st Contact Info) Description 05/06/2024 Lab Requisition [facility] - Main Lab [address] [place] [address] Matias Bowling MD 38 [facility] [address] [place], [address] Essential (primary) hypertension Social History Tobacco [...] Resul t [facility] [address] [place] [address], [place] [phone] * (ABNORMAL) Complete blood count (05/07/2024 5:12 [...] Resul t [facility] [address] [place] [address], documented in this encounter Visit Diagnoses Diagnosis Essential (primary) hypertension Unspecified essential hypertension documented in this encounter Additional Health Concerns Infection Onset Date Last Indicated Resolved Time Gastrointestinal Rule-Out 04/28/2024 04/27/2024 7:06 PM EDT C. difficile 05/29/2024 05/29/2024 06/22/2024 7:04 PM EDT C. difficile Rule-Out 05/30/2024 05/29/20242024 9:47 AM EDT documented as of this encounter Care Teams Paint Roller Winder Relationship Specialty Start Date End Date Matias Bowling MD 38 [facility] [address] [place] [phone] PCP - General Family Medicine 04/16/24 documented as of this encounter
--- OUTSIDE RECORDS SUMMARY | 2025-01-18 10:15 | XMS_ITS | Encounter Summary ---
Author Organization [facility] Address [address] [place] [address] Care Team Providers Care Powder Blender And Pourer Name Role Phone Matias Bowling MD Primary Care Provider [phone] Encounter Details Date Type Department Care Team (Late st Contact Info) Description 04/29/2024 Lab Requisition [facility] - Main Lab [address] [facility] [place] [address] Matias Bowling MD 38 [facility] 204 [facility] [address] Essential (primary) hypertension Social [...] documented as of this encounter Care Teams Powder Blender And Pourer Relationship Specialty Start Date End Date Matias Bowling MD 38 [facility] [address] [place] [address] PCP - General Family Medicine 04/16/24 documented as of this encounter
--- OUTSIDE RECORDS SUMMARY | 2025-01-18 10:16 | XMS_ITS | Encounter Summary ---
Author Organization [facility] Address [address] [place] [address] Care Team Providers Care Nursing Center Tutor Name Role Phone Matias Bowling MD Primary Care Provider [phone] Encounter Details Date Type Department Care Team (Late st Contact Info) Description 05/27/2024 Lab Requisition [facility] - Main Lab [address] [place] [address] Matias Bowling MD 38 [facility] [address] [place], [address] Essential (primary) hypertension Social History Tobacco [...] LAB CHEMISTRY METHOD 05/28/2024 10:13 AM EDT [facility] Potassium 4.2 3.5 - 5.5 mmol/L LAB CHEMISTRY METHOD 05/28/2024 10:13 AM EDT [facility] Chloride 103 96 [...] LAB CHEMISTRY METHOD 05/28/2024 10:13 AM EDT [facility] Total Bilirubin 0.2 0.0 - 1.4 mg/dL LAB CHEMISTRY METHOD 05/28/2024 10:13 AM [facility] Blood Venous blood specimen / Unknown Venipuncture / Unknown 05/28/2024 5:02 AM EDT 05/28/2024 9:04 AM EDT us Matias Bowling MD LAB BLOOD ORDERABLES Final Resul t [facility] [address] [place] [address], [place] [phone] * (ABNORMAL) Complete blood count (05/28/2024 5:02 AM EDT) WBC 10.3 4.8 - 10.8 K/mcL LAB HEMETOLOGY METHOD 05/28/2024 9:26 AM [facility] RBC 3.30(L) 3.80 - 4.80 M/mcL LAB HEMETOLOGY METHOD 05/28/2024 9:26 AM [facility] Hemoglobin 8.7(L) 11.5 - 16.0 g/dL LAB HEMETOLOGY METHOD 05/28/2024 9:26 AM [facility] Hematocrit 28.7(L) 35.0 - 47.0 % LAB HEMETOLOGY METHOD 05/28/2024 9:26 AM [facility] MCV 87.0 79.0 - 98.0 FL LAB HEMETOLOGY METHOD 05/28/2024 9:26 AM [facility] MCH 26.4(L) 27.0 - 32.0 pcg LAB HEMETOLOGY METHOD 05/28/2024 9:26 AM [facility] MCHC 30.3(L) 32.0 - 37.0 g/dL LAB HEMETOLOGY METHOD 05/28/2024 9:26 AM EDT [facility] RDW 14.9 11.0 - 15.0 % LAB HEMETOLOGY METHOD 05/28/2024 9:26 AM EDT [facility] Platelets 281 130 - 400 K/mcL LAB HEMETOLOGY METHOD 05/28/2024 9:26 AM EDT [facility] MPV 10.2 7.0 - 11.0 FL LAB HEMETOLOGY METHOD 05/28/2024 9:26 AM EDT [facility] NRBC 0.0 <1.0 % LAB HEMETOLOGY METHOD 05/28/2024 9:26 AM EDT [facility] NRBC Absolute 0.00 <0.10 K/mcL LAB HEMETOLOGY METHOD 05/28/2024 9:26 AM EDT [facility] Blood Venous blood specimen / Unknown Venipuncture / Unknown 05/28/2024 5:02 AM EDT 05/28/2024 9:04 AM EDT us Matias Bowling MD LAB BLOOD ORDERABLES Final Resul t [facility] [address] [place] [address], documented in this encounter Visit Diagnoses Diagnosis Essential (primary) hypertension Unspecified essential hypertension documented in this encounter Additional Health Concerns Infection Onset Date Last Indicated Resolved Time C. difficile 05/29/2024 05/29/2024 06/22/2024 7:04 PM EDT C. difficile Rule-Out 05/30/2024 05/29/20242024 9:47 AM EDT documented as of this encounter Care Teams Nursing Center Tutor Relationship Specialty Start Date End Date Matias Bowling MD [address] [place] [phone] PCP - General Family Medicine 04/16/24 documented as of this encounter
--- OUTSIDE RECORDS SUMMARY | 2025-01-18 10:16 | XMS_ITS | Encounter Summary ---
Author Organization [facility] Address [address] [place] [address] Care Team Providers Care Fourth Mate Name Role Phone Matias Bowling MD Primary Care Provider [phone] Encounter Details Date Type Department Care Team (Late st Contact Info) Description 05/22/2024 Lab Requisition [facility] - Main Lab [address] [place] [address] Matias Bowling MD 38 [facility] [address] [place], [address] 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 classified elsewhere (CMS/HCC [...] LAB CHEMISTRY METHOD 05/22/2024 11:37 AM EDT [facility] Potassium 5.2 3.5 - 5.5 mmol/L LAB CHEMISTRY METHOD 05/22/2024 11:37 AM [facility] Chloride 102 96 - 110 mmol/L LAB CHEMISTRY METHOD 05/22/2024 11:37 AM [facility] CO2 25 21 - 32 mmol/L LAB CHEMISTRY METHOD 05/22/2024 11:37 AM [facility] Anion Gap 7 3 - 11 LAB CHEMISTRY METHOD 05/22/2024 11:37 AM [facility] Glucose 163(H) 70 - 100 mg/dL LAB CHEMISTRY METHOD 05/22/2024 11:37 AM [facility] BUN 18 5 - 25 mg/dL LAB CHEMISTRY METHOD 05/22/2024 11:37 AM [facility] Creatinine 1.65(H) 0.50 - 1.10 mg/dL LAB CHEMISTRY METHOD 05/22/2024 11:37 AM [facility] eGFR 34(L) >=60 mL/min/1. 73m2 LAB CHEMISTRY METHOD 05/22/2024 11:37 AM [facility] Comment:Calculation based on the Chronic Kidney Disease Epidemiology Collaboration (CKD-EPI) equation refit without adjustment for race. BUN/Creatinine Ratio 10.9 LAB CHEMISTRY METHOD 05/22/2024 11:37 AM [facility] Calcium 8.8 8.5 - 10.5 mg/dL LAB CHEMISTRY METHOD 05/22/2024 11:37 AM [facility] Blood Venous blood specimen / Unknown Venipuncture / Unknown 05/22/2024 8:23 AM EDT 05/22/2024 10:31 AM EDT us Matias Bowling MD LAB BLOOD ORDERABLES Final Resul t [facility] [address] [place] [address], * (ABNORMAL) Complete blood count (05/22/2024 8:23 AM EDT) [facility] WBC 9.8 4.8 - 10.8 K/mcL LAB HEMETOLOGY METHOD 05/22/2024 11:21 AM [facility] RBC 3.60(L) 3.80 - 4.80 M/mcL LAB HEMETOLOGY METHOD 05/22/2024 11:21 AM [facility] Hemoglobin 9.5(L) 11.5 - 16.0 g/dL LAB HEMETOLOGY METHOD 05/22/2024 11:21 AM [facility] Hematocrit 31.2(L) 35.0 - 47.0 % LAB HEMETOLOGY METHOD 05/22/2024 11:21 AM [facility] MCV 86.4 79.0 - 98.0 FL LAB HEMETOLOGY METHOD 05/22/2024 11:21 AM [facility] MCH 26.3(L) 27.0 - 32.0 pcg LAB HEMETOLOGY METHOD 05/22/2024 11:21 AM [facility] MCHC 30.4(L) 32.0 - 37.0 g/dL LAB HEMETOLOGY METHOD 05/22/2024 11:21 AM [facility] RDW 14.7 11.0 - 15.0 % LAB HEMETOLOGY METHOD 05/22/2024 11:21 AM [facility] Platelets 278 130 - 400 K/mcL LAB HEMETOLOGY METHOD 05/22/2024 11:21 AM [facility] MPV 10.5 7.0 - 11.0 FL LAB HEMETOLOGY METHOD 05/22/2024 11:21 AM [facility] NRBC 0.0 <1.0 % LAB HEMETOLOGY METHOD 05/22/2024 11:21 AM [facility] NRBC Absolute 0.00 <0.10 K/mcL LAB HEMETOLOGY METHOD 05/22/2024 11:21 AM EDT [facility] Blood Venous blood specimen / Unknown Venipuncture / Unknown 05/22/2024 8:23 AM EDT 05/22/2024 10:31 AM EDT us Matias Bowling MD LAB BLOOD ORDERABLES Final Resul t [facility] [address] [place] [address], documented in this encounter Visit Diagnoses Diagnosis 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 classified elsewhere (CMS/HCC V24, CMS/HCC V28) Hyperlipidemia, unspecified documented in this encounter Additional Health Concerns Infection Onset Date Last Indicated Resolved Time Gastrointestinal Rule-Out 04/28/2024 04/27/2024 7:06 PM EDT C. difficile 05/29/2024 05/29/2024 06/22/2024 7:04 PM EDT C. difficile Rule-Out 05/30/2024 05/29/20242024 9:47 AM EDT documented as of this encounter Care Teams Fourth Mate Relationship Specialty Start Date End Date Matias Bowling MD [address] [place] [address] [address] [place] [address] PCP - General Family Medicine 04/16/24 documented as of this encounter
--- OUTSIDE RECORDS SUMMARY | 2025-01-18 10:16 | XMS_ITS | Encounter Summary ---
Author Organization [facility] Address [address] [place] [address] Care Team Providers Care Travel Rn Name Role Phone Matias Bowling MD Primary Care Provider [phone] Encounter Details Date Type Department Care Team (Late st Contact Info) Description 04/23/2024 Lab Requisition [facility] - Main Lab [address] [place] [address] Matias Bowling MD 38 [facility] [address] [place], [address] Essential (primary) hypertension Social History [...] Resul t [facility] [address] [place] [address], * (ABNORMAL) Complete blood count (04/23/2024 5:04 [...] 9:28 AM EST [facility] RDW 14.6 11.0 - 15.0 % LAB HEMETOLOGY METHOD 04/23/2024 9:28 AM [facility] Platelets 333 130 - 400 K/mcL LAB HEMETOLOGY METHOD 04/23/2024 9:28 AM [facility] MPV 9.8 7.0 - 11.0 FL LAB HEMETOLOGY METHOD 04/23/2024 9:28 AM [facility] NRBC 0.0 <1.0 % LAB HEMETOLOGY METHOD 04/23/2024 9:28 AM [facility] NRBC Absolute 0.00 <0.10 K/mcL LAB HEMETOLOGY METHOD 04/23/2024 9:28 AM [facility] Blood Venous blood specimen / Unknown Venipuncture / Unknown 04/23/2024 5:04 AM EST 04/23/2024 8:47 AM EST us Matias Bowling MD LAB BLOOD ORDERABLES Final Resul t [facility] [address] [place] [address], documented in this encounter Visit Diagnoses Diagnosis Essential (primary) hypertension Unspecified essential hypertension documented in this encounter Additional Health Concerns Infection Onset Date Last Indicated Resolved Time Gastrointestinal Rule-Out 04/28/2024 04/27/2024 7:06 PM EDT C. difficile 05/29/2024 05/29/2024 06/22/2024 7:04 PM EDT C. difficile Rule-Out 05/30/2024 05/29/20242024 9:47 AM EDT documented as of this encounter Care Teams Travel Rn Relationship Specialty Start Date End Date Matias Bowling MD [address] [place] [phone] PCP - General Family Medicine 04/16/24 documented as of this encounter
--- OUTSIDE RECORDS SUMMARY | 2025-01-18 10:16 | XMS_ITS | Clinical Summary ---
Author Organization [address] Address [address] [place] [address] Phone Care Team Providers Care Irrigating Pump Operator Name Role Phone Matias Bowling MD Primary Care Provider [phone] Social History Tobacco Use Types Packs/Day Years [...] #1 Negative Negative 05/30/2024 9:30 AM EDT [facility] Stool Rectum structure / Unknown Non-blood Collection / Unknown 05/29/2024 1:50 PM EDT 05/30/2024 8:36 AM EDT Matias Bowling MD LAB BODY FLUIDS AND STOOLS ORDER MARGARET Final Result [facility] [address] [place] [address], from Last 3 Months or Most Recently Relevant to Health Maintenance Insurance [facility] MEDIC[facility] Member Subscriber Plan / Payer (Ef fective 2022-Present) Name:Trish Hunter Relation to Subscriber:Self Name:Trish Hunter Payer ID:[id number] Group ID:[id number] Type:Not on file Address: [address] [place] [id number] Care Teams Irrigating Pump Operator Relationship Specialty Start Date End Date Matias Bowling MD [address] [address] PCP - General Family Medicine 04/16/24
--- OUTSIDE RECORDS SUMMARY | 2025-01-18 10:16 | XMS_ITS | Clinical Summary ---
Author Organization [facility] Address [address] [facility] [address] [place] [address] Phone Care Team Providers Care Assembler Bonding Name Role Phone Ethel Chase Primary Care [...] MEDICARE REPLACEMENT MEDICARE REPLACEMENT [place] [id number] Care Teams Assembler Bonding Relationship Specialty Start Date End Date Salvatore EthelDO [address] [place] [address] PCP - General Family Medicine 12/19/23 Additional Source Comments The information contained in this document represents components of the legal health record. It is not the complete legal health record.[facility]
--- OUTSIDE RECORDS SUMMARY | 2025-01-18 10:16 | XMS_ITS | Encounter Summary ---
Author Organization [facility] Address [address] [place] [address] Care Team Providers Care Automotive Design Drafter Name Role Phone Matias Bowling MD Primary Care Provider [phone] Encounter Details Date Type Department Care Team (Late st Contact Info) Description 06/03/[address] [facility] - Main Lab [address] [place] [address] Matias Bowling MD 38 [facility] 204 [place], [address] Essential (primary) hypertension Social History Tobacco [...] Resul t [facility] [address] [place] [address], [place] [phone] * (ABNORMAL) Complete blood count (06/04/2024 5:45 AM EDT) WBC 12.1(H) 4.8 - 10.8 K/mcL LAB HEMETOLOGY METHOD 06/04/2024 11:21 AM [facility] RBC 3.50(L) 3.80 - 4.80 M/mcL LAB HEMETOLOGY METHOD 06/04/2024 11:21 AM [facility] Hemoglobin 9.1(L) 11.5 - 16.0 g/dL LAB HEMETOLOGY METHOD 06/04/2024 11:21 AM [facility] Hematocrit 29.5(L) 35.0 - 47.0 % LAB HEMETOLOGY METHOD 06/04/2024 11:21 AM [facility] MCV 85.0 79.0 - 98.0 FL LAB HEMETOLOGY METHOD 06/04/2024 11:21 AM [facility] MCH 26.2(L) 27.0 - 32.0 pcg LAB HEMETOLOGY METHOD 06/04/2024 11:21 AM [facility] MCHC 30.8(L) [...] Resul t [facility] [address] [place] [address], documented in this encounter Visit Diagnoses Diagnosis Essential (primary) hypertension Unspecified essential hypertension documented in this encounter Additional Health Concerns Infection Onset Date Last Indicated Resolved Time C. difficile 05/29/2024 05/29/2024 06/22/2024 7:04 PM EDT documented as of this encounter Care Teams Automotive Design Drafter Relationship Specialty Start Date End Date Matias Bowling MD 38 [facility] [address] [place] [address] PCP - General Family Medicine 04/16/24 documented as of this encounter
--- OUTSIDE RECORDS SUMMARY | 2025-01-18 10:16 | XMS_ITS | Encounter Summary ---
Author Organization [facility] Address [address] [place] [phone] Care Team Providers Care Didactic Program In Dietetics Director Name Role Phone Matias Bowling MD Primary Care Provider [phone] Encounter Details Date Type Department Care Team (Late st Contact Info) Description 04/28/2024 Lab Requisition [facility] - Main Lab 299 [facility] [place] [address] Matias Bowling MD 38 [facility] [place] [address] [facility] [address] Diarrhea, unspecified Social History Tobacco [...] documented as of this encounter Care Teams Didactic Program In Dietetics Director Relationship Specialty Start Date End Date Matias Bowling MD 38 [facility] [address] [place] [address] PCP - General Family Medicine 04/16/24 documented as of this encounter
--- OUTSIDE RECORDS SUMMARY | 2025-01-18 10:16 | XMS_ITS | Encounter Summary ---
Author Organization [facility] Address [address] [place] [address] Care Team Providers Care Rod Drawer Name Role Phone Matias Bowling MD Primary Care Provider [phone] Encounter Details Date Type Department Care Team (Late st Contact Info) Description 05/30/2024 Lab Requisition [facility] - Main Lab 299 [facility] [place] [address] Matias Bowling MD 38 [facility] [address] [place], [address] Diarrhea, unspecified Social History Tobacco Use [...] LAB MICROBIOLOGY METHOD 05/30/2024 11:16 AM EDT [facility] Comment: CRITICAL RESULT POSITIVE FOR TOXIN PRODUCING CLOSTRIDIOIDES DIFFICILE, NO ADDITIONAL TESTING IS NECESSARY. REPEAT SAMPLES SHOULD NOT BE SUBMITTED FOR TEST OF CURE. Stool Rectum structure / Unknown Non-blood Collection / Unknown 05/29/2024 1:50 PM EDT 05/30/2024 9:47 AM EDT Matias Bowling MD LAB MICROBIOLOGY - GENERAL ORDER MARGARET Final Result Performing Organization Address City/[facility]/ZIP Co de Phone Number [facility] [address] [place] [address], [place] [phone] * Occult blood stool, guaiac (05/29/2024 1:50 PM EDT) Occult Blood, Stool #1 Negative Negative 05/30/2024 9:30 AM EDT [facility] Stool Rectum structure / Unknown Non-blood Collection / Unknown 05/29/2024 1:50 PM EDT 05/30/2024 8:36 AM EDT Matias Bowling MD LAB BODY FLUIDS AND STOOLS ORDER MARGARET Final Result Performing Organization Address [facility]/ZIP Co de Phone Number [facility] [address] [place] [address], [place] [phone] * Ova and parasite examination (05/29/2024 1:50 PM EDT) Ova and Parasite No Ova or Parasite seen. 06/03/2024 10:02 AM EDT [facility] Stool Rectum structure / Unknown Non-blood Collection / Unknown 05/29/2024 1:50 PM EDT 05/30/2024 8:36 AM EDT Narrative [facility] - 06/03/2024 10:02 AM EDT Special test request required for Coccidia and Microsporidia. Matias Bowling MD LAB MICROBIOLOGY - GENERAL ORDER MARGARET Final Result Performing Organization Address [facility]/ZIP Co de Phone Number [facility] [address] [place] [address], [place] [phone] * Clostridium difficile toxin (05/29/2024 1:50 PM EDT) C difficile Toxins A+B, EIA 05/30/2024 9:47 AM EDT [facility] Comment:Refer to C. difficil e PCR assay for results. Stool Rectum structure / Unknown Non-blood Collection / Unknown 05/29/2024 1:50 PM EDT 05/30/2024 8:36 AM EDT Matias Bowling MD LAB MICROBIOLOGY - GENERAL ORDER MARGARET Final Result Performing Organization Address [facility] Co de Phone Number [facility] [address] [place] [address], [place] [phone] documented in this encounter Visit Diagnoses Diagnosis Diarrhea, unspecified documented in this encounter Additional Health Concerns Infection Onset Date Last Indicated Resolved Time C. difficile 05/29/2024 05/29/2024 06/22/2024 7:04 PM EDT C. difficile Rule-Out 05/30/2024 05/29/20242024 9:47 AM EDT documented as of this encounter Care Teams Rod Drawer Relationship Specialty Start Date End Date Matias Bowling MD [address] [place] [address] [address] [place] [address] PCP - General Family Medicine 04/16/24 documented as of this encounter
--- OUTSIDE RECORDS SUMMARY | 2025-01-18 10:16 | XMS_ITS | Encounter Summary ---
Author Organization [facility] Address [address] [place] [address] Care Team Providers Care Duplicating Machine Mechanic Name Role Phone Matias Bowling MD Primary Care Provider [phone] Encounter Details Date Type Department Care Team (Late st Contact Info) Description 06/10/2024 Lab Requisition [facility] - Main Lab 299 [facility] [place] [address] Matias Bowling MD 38 [facility] 204 [facility] [...] documented as of this encounter Care Teams Duplicating Machine Mechanic Relationship Specialty Start Date End Date Matias Bowling MD 38 [facility] [address] [place] [address] PCP - General Family Medicine 04/16/24 documented as of this encounter
== END 2025-01-15 09:14 | disposition home or self-care (01) ==
LOC: HO.HOSX 09:13
PROVIDERS: Visit Provider Physician Assistant
DX: M97.12XA Periprosthetic fracture around internal prosthetic left knee joint, initial encounter (principal); M25.562 Pain in left knee
CPT/HCPCS: 73562; 99212

== ENCOUNTER 2025-01-15 09:20 | Outpatient (AMB) | payer OTHER, SELFPAY ==
--- NOTE | 2025-01-15 09:26 | A.OFFVIS_ITS ---
Intake Visit Reasons: OV-Lt TKA rev. DOS 03/24/2024 s/p nga pros fx Intake Note: Trish is a 69 year old female who presents today for a follow up of left TKA revision, DOS 03/24/2024 s/p nga prosthetic fracture. At last visit patient was recommended to continue weight-bearing as tolerated with a walker. Referred to physical therapy. Today patient reports that she is doing good, she continues to have constant pain in her knee that travels up her thigh and down to her foot. She was not able to attend therapy. Director Of Casino Marketing Required: Yes Director Of Casino Marketing Services: Director Of Casino Marketing Present Director Of Casino Marketing Name: Jo Ann VACA Allergies Iodinated Contrast Media (IV CONTRAST) Allergy (Severe, Verified 01/15/25 09:35) itching, hives morphine (Morphine) Allergy (Intermediate, Verified 01/15/25 09:35) ITCHING, rash tramadol (Ultram) Allergy (Intermediate, Verified 01/15/25 09:35) rash, itching Medication List - Last Reconciled 01/15/25 by Khushi Mathias PA-C acetaminophen 650 mg (2 x 325 mg) PO Q6H PRN 30 days albuterol sulfate 90 mcg/actuation 2 puffs inhalation Q6H PRN aripiprazole 10 mg PO QAM atorvastatin 20 mg PO BEDTIME baclofen 10 mg PO TID PRN blood sugar diagnostic (FreeStyle Lite Strips) As directed cholecalciferol (vitamin D3) 50 mcg PO QPM clotrimazole-betamethasone 1-0.05 % 1 appl topical BID 7 days docusate sodium 100 mg PO BID 30 days enoxaparin 40 mg (0.4 mL) subcut Q24H 42 days fluticasone propion-salmeterol 115-21 mcg/actuation (Advair HFA) 2 puffs inhalation BID PRN fluticasone propionate 50 mcg/actuation 1 spray intranasal BID furosemide 20 mg PO DAILY PRN gabapentin 600 mg PO BID insulin degludec (Tresiba FlexTouch U-100 insulin) 32 units subcut DAILY isosorbide mononitrate ER 30 mg PO DAILY lancets (TRUEplus Lancets) As directed latanoprost 0.005% 1 drp ophthalmic (eye) BEDTIME levothyroxine 112 mcg PO DAILY loratadine 10 mg PO QAM lorazepam 1 mg PO BID PRN metoprolol succinate ER 25 mg PO QAM mirtazapine 15 mg PO BEDTIME egaqbmohmdto-slzp-kdpmx acid 18-400 mg-mcg (Tab-A-Rito Multivitamin w-iron) 1 tab PO QAM oxycodone 5 mg PO Q6H PRN pantoprazole 40 mg PO QAM prazosin 4 mg PO BEDTIME semaglutide (Ozempic) 2 mg subcut MO venlafaxine ER 150 mg PO QAM venlafaxine ER 75 mg PO QAM walker Folding Front wheeled walker DURATIO 99 DAYS zolpidem 10 mg PO BEDTIME HPI HPI OV-Lt TKA rev. DOS 03/24/2024 s/p nga pros fx: Details: 68-year-old female returns to the office today status post left total knee arthroplasty revision, performed by Dr. Oro, DOS: 03/24/24. Status post fall on 04/22/2023 resulting in a periprosthetic fracture. She has been feeling better, has occassional pain. She was unable to attend PT because her shoes did not fit and they required her to wear sneakers. She was told once her swelling went down to call and r/s her appts. She is ambulating with a walker and feels good, occasional she feels unstable when she goes from a sitting to a standing position. [facility] Medical History Arthritis Hypothyroidism Renal calculi Environmental and seasonal allergies Nocturnal hypoxia Abnormal nuclear stress test Diabetes HTN (hypertension) Cardiomyopathy Bilateral nephrolithiasis Retention of urine Acid reflux Surgical History Status post total left knee replacement History of total left knee replacement (TKR) Hx of lithotripsy (2018) History of total right knee replacement (2011) Hx of repair of right rotator cuff (2013) History of cystoscopy Hx of tubal ligation History of hand surgery Family History Brother Breast cancer Social History Household Members: Spouse Household Members Other:: lives w/her grandson Housing: House Are you a primary care management associate to a significant other at home: Yes (grandson 17 yrs) Do you presently have visiting nurse or other home services: No 75 years or older and lives alone: No Alcohol intake: current Alcohol intake frequency: does not drink Comment: post op left knee, WBAT Patient Tobacco Use Status: Never used Tobacco Advance Directives Date on File: 04/14/24 service: No Current occupational status: disabled Current occupation: rt handed Gender identity: Female Female Reproductive History Menstrual Age of Menarche: 12 Review of Systems Const All systems reviewed & are unremarkable except as noted in HPI and below Physical Exam Extrem Other: Left knee incision is well healed. There is no erythema or joint effusion. Range of motion is 0-95 degrees. No direct tenderness around the medial and lateral joint line She is able to activate quad with some weakness Calf is supple and nontender Neurovascularly intact Results Reviewed Results Reviewed: X-rays of the left knee obtained in the office today reviewed by me show a periprosthetic left femur fracture with interval healing. Prosthesis appears to be stable. Assessment & Plan Assessment & Plan (1) Periprosthetic fracture around internal prosthetic left knee joint, initial encounter: Code(s): M97.12XA - Periprosthetic fracture around internal prosthetic left knee joint, initial encounter Category: Medical Plan: The patient will continue weight-bearing as tolerated with a walker. I strongly encouraged her to contact physical therapy to get in so she can work on quad strength. She does have a knee brace that she wears for support but she states it is sliding down the leg. I encouraged her to bring it in and we could reach size her. Otherwise she will follow up in 8 weeks with x-rays, sooner if needed. Orders: Orders XR knee LT 3V Today M25.562 - Pain in left knee Coding Level of Care Code Est Pt Level 3 (96480) Diagnoses Periprosthetic fracture around internal prosthetic left knee joint, initial encounter M97.12XA
--- OUTSIDE RECORDS SUMMARY | 2025-01-15 09:42 | XMS_ITS | Encounter Summary ---
Author Organization [employer] Address [address] [place] [address] 7[address] [place] [address] Care Team Providers Care Wind Site Manager Name Role Phone Ethel Chase DO Primary Care Provider [phone] Vaishnavi Laird PharmD Unavailable [phone] Reason for Visit * Reason Onset Date Comments Nurse Triage 09/14/2024 Encounter Details Date Type Department Care Team ([facility] st Contact Info) Description 09/14/2024 Telephone [facility] MEDICINE [address] [place] [address] Ethel Chase DO 230 [place] [address] Nurse Triage Social History Tobacco Use Types [...] PM EDT Triage call to Milena from [place] [address] Home care. Milena wanted to report Pt BP'S have been higher. Ptis asymptomatic. BP today left arm was 148/96 and right arm 145/96. Pt is taking daily imdur 30mg as prescribed. Pt has a scheduled apt 09/17/24 to address high BP. Pt is also asking about referral toPT. Area Manager advised that this information would be forwarded [...] caller accepted this outcome. Contact Milena with [address] care at [phone] documented in this encounter Plan of Treatment Upcoming Encounters Date Type Department Care Team (Late st Contact Info) Description 01/27/2025 10:00 AM EST Medication Management [address] [address] Vaishnavi Laird, BrianD [address] [place] [address] 03/03/2025 9:00 AM EST Clinical Support [address] [address] Suad Wilson RN documented as of this [...] documented as of this encounter Care Teams Wind Site Manager Relationship Specialty Start Date End Date Ethel Chase DO [address] [place] [address] PCP - General Family Medicine 10/12/13 Vaishnavi Laird, BrianD [address] [place] [address] Pharmacist Internal Medicine 02/07/23 [id number] 06/11/24 11/18/24 documented as of this encounter
--- OUTSIDE RECORDS SUMMARY | 2025-01-15 09:42 | XMS_ITS | Encounter Summary ---
Author Organization [employer] Address [address] [place] [address] [address]t [place] [address] Care Team Providers Care Broke Man Name Role Phone Ethel Chase DO Primary Care Provider [phone] Vaishnavi Laird PharmD Unavailable [phone] Reason for Visit * Reason Comments Med Refill Encounter Details Date Type Department Care Team ([facility] st Contact Info) Description 06/07/2022 Refill [facility] MEDICINE [address] [place] [address] Ethel Chase DO [address] [place] [address] Other chronic pain Social History Tobacco Use [...] Description 01/27/2025 10:00 AM EST Medication Management [address] [address] Vaishnavi Laird PharmD [address] [place] [address] 03/03/2025 9:00 AM EST Clinical Support [address] [address] Suad Wilson RN documented as of this encounter Visit Diagnoses Diagnosis Other chronic pain documented in this encounter Additional Health Concerns Assessment Noted Time PHQ-9 Depression Total Score: 0 02/08/20 10:43 AM EST documented as of this encounter Care Teams Broke Man Relationship Specialty Start Date End Date Ethel Chase DO [address] [place] [address] PCP - General Family Medicine 10/12/13 Vaishnavi Laird PharmD [address] [place] [address] Pharmacist Internal Medicine 02/07/23 [id number] 06/11/24 11/18/24 documented as of this encounter
--- OUTSIDE RECORDS SUMMARY | 2025-01-15 09:42 | XMS_ITS | Encounter Summary ---
Author Organization [employer] Address [address] [place] [address] 7[address] [place] [address] Care Team Providers Care Radio Frequency Engineer Name Role Phone Ethel Chase DO Primary Care Provider [phone] Vaishnavi Laird PharmD Unavailable Reason for Visit * Reason Comments Med Refill Encounter Details Date Type Department Care Team (Late Contact Info) Description 06/06/2022 Refill [facility] MEDICINE [address] [place] [address] Ethel Chase DO 230 [place] [address] Other chronic pain Social History Tobacco Use [...] Description 01/27/2025 10:00 AM EST Medication Management [address] [address] Vaishnavi Laird PharmD [address] [place] [address] 03/03/2025 9:00 AM EST Clinical Support [address] [address] Suad Wilson RN documented as of this encounter Visit Diagnoses Diagnosis Other chronic pain documented in this encounter Additional Health Concerns Assessment Noted Time PHQ-9 Depression Total Score: 0 02/08/20 10:43 AM EST documented as of this encounter Care Teams Radio Frequency Engineer Relationship Specialty Start Date End Date Ethel Chase DO [address] [place] [address] PCP - General Family Medicine 10/12/13 Vaishnavi Laird PharmD [address] [place] [address] Pharmacist Internal Medicine 02/07/23 [id number] 06/11/24 11/18/24 documented as of this encounter
--- OUTSIDE RECORDS SUMMARY | 2025-01-15 09:42 | XMS_ITS | Clinical Summary ---
Author Organization [facility] Address [address] [facility] [address] [place] [address] Phone Care Team Providers Care Radiation Officer Name Role Phone Ethel Chase Primary Care Provider [phone] Social History Tobacco Use Types Packs/Day Years [...] MEDICARE REPLACEMENT MEDICARE REPLACEMENT [place] [id number] Care Teams Radiation Officer Relationship Specialty Start Date End Date Salvatore EthelDO [address] [place] [address] PCP - General Family Medicine 12/19/23 Additional Source Comments The information contained in this document represents components of the legal health record. It is not the complete legal health record.[facility]
--- OUTSIDE RECORDS SUMMARY | 2025-01-15 09:42 | XMS_ITS | Encounter Summary ---
Author Organization [employer] Address [address] [place] [address] [address] [place] [address] Care Team Providers Care Cement Car Dumper Name Role Phone Ethel Chase DO Primary Care Provider PuVaishnavi thorpe PharmD Unavailable [phone] Reason for Visit * Reason Comments Med Refill Encounter Details Date Type Department Care Team (Late st Contact Info) Description 04/06/2022 Refill [facility] [address] [place] [address] Ethel Chase DO [address] [place] [address] Other chronic pain Social History Tobacco Use [...] Description 01/27/2025 10:00 AM EST Medication Management [facility] [address] [place] [address] Puia, Vaishnavi, PharmD [address] [place] [address] 03/03/2025 9:00 AM EST Clinical Support [facility] [address] [place] [address] Suad Wilson, RN documented as of this encounter Visit Diagnoses Diagnosis Other chronic pain documented in this encounter Additional Health Concerns Assessment Noted Time PHQ-9 Depression Total Score: 0 02/08/20 22 10:43 AM EST documented as of this encounter Care Teams Cement Car Dumper Relationship Specialty Start Date End Date Ethel Chase DO [address] [place] [id number] PCP - General Family Medicine 10/12/13 Vaishnavi Laird PharmD [address] [place] [id number] Pharmacist Internal Medicine 02/07/23 [email or web address] 06/11/24 11/18/24 documented as of this encounter
--- OUTSIDE RECORDS SUMMARY | 2025-01-15 09:42 | XMS_ITS | Encounter Summary ---
Author Organization [facility] Address [address] [place] [address] Care Team Providers Care Patented Hogshead Assembler Name Role Phone Matias Bowling MD Primary Care Provider [phone] Encounter Details Date Type Department Care Team (Late st Contact Info) Description 05/06/2024 Lab Requisition [facility] - Main Lab [address] [place] [address] Matias Bowling MD [address] [facility] [address] [place], [address] Essential (primary) hypertension Social History Tobacco [...] LAB CHEMISTRY METHOD 05/07/2024 10:37 AM EDT [facility] Potassium 4.9 3.5 - 5.5 mmol/L LAB CHEMISTRY METHOD 05/07/2024 10:37 AM EDT [facility] Chloride 111(H) 96 - 110 mmol/L LAB CHEMISTRY METHOD 05/07/2024 10:37 AM [facility] CO2 22 21 - 32 mmol/L LAB CHEMISTRY METHOD 05/07/2024 10:37 AM [facility] Anion Gap 8 3 - 11 LAB CHEMISTRY METHOD 05/07/2024 10:37 AM [facility] Glucose 121(H) 70 - 100 mg/dL LAB CHEMISTRY METHOD 05/07/2024 10:37 AM [facility] BUN 15 5 - 25 mg/dL LAB CHEMISTRY METHOD 05/07/2024 10:37 AM [facility] Creatinine 1.02 0.50 - 1.10 mg/dL LAB CHEMISTRY METHOD 05/07/2024 10:37 AM [facility] eGFR 60 >=60 mL/min/1. 73m2 LAB CHEMISTRY METHOD 05/07/2024 10:37 AM [facility] Comment:Calculation based on the Chronic Kidney Disease Epidemiology Collaboration (CKD-EPI) equation refit without adjustment for race. BUN/Creatinine Ratio 14.7 LAB CHEMISTRY METHOD 05/07/2024 10:37 AM [facility] Calcium 9.1 8.5 - 10.5 mg/dL LAB CHEMISTRY METHOD 05/07/2024 10:37 AM [facility] AST (SGOT) 15 10 - 42 unit/L LAB CHEMISTRY METHOD 05/07/2024 10:37 AM [facility] ALT (SGPT) 20 10 - 60 unit/L LAB CHEMISTRY METHOD 05/07/2024 10:37 AM [facility] Alkaline Phosphatase 161(H) 42 - 121 unit/L LAB CHEMISTRY METHOD 05/07/2024 10:37 AM [facility] Total Protein 6.4 6.0 - 8.0 g/dL LAB CHEMISTRY METHOD 05/07/2024 10:37 AM [facility] Albumin 3.1(L) 3.2 - 5.0 g/dL LAB CHEMISTRY METHOD 05/07/2024 10:37 AM EDT [facility] Total Bilirubin 0.2 0.0 - 1.4 mg/dL LAB CHEMISTRY METHOD 05/07/2024 10:37 AM [facility] Blood Venous blood specimen / Unknown Venipuncture / Unknown 05/07/2024 5:12 AM EDT 05/07/2024 8:53 AM EDT us Matias Bowling MD LAB BLOOD ORDERABLES Final Resul t [facility] [address] [place] [address], [place] [phone] * (ABNORMAL) Complete blood count (05/07/2024 5:12 AM EDT) WBC 9.6 4.8 - 10.8 K/mcL LAB HEMETOLOGY METHOD 05/07/2024 10:09 AM [facility] RBC 3.60(L) 3.80 - 4.80 M/mcL LAB HEMETOLOGY METHOD 05/07/2024 10:09 AM [facility] Hemoglobin 9.4(L) 11.5 - 16.0 g/dL LAB HEMETOLOGY METHOD 05/07/2024 10:09 AM [facility] Hematocrit 31.5(L) 35.0 - 47.0 % LAB HEMETOLOGY METHOD 05/07/2024 10:09 AM [facility] MCV 88.2 79.0 - 98.0 FL LAB HEMETOLOGY METHOD 05/07/2024 10:09 AM [facility] MCH 26.3(L) 27.0 - 32.0 pcg LAB HEMETOLOGY METHOD 05/07/2024 10:09 AM [facility] MCHC 29.8(L) 32.0 - 37.0 g/dL LAB HEMETOLOGY METHOD 05/07/2024 10:09 AM EDT [facility] RDW 14.6 11.0 - 15.0 % LAB HEMETOLOGY METHOD 05/07/2024 10:09 AM EDT [facility] Platelets 303 130 - 400 K/mcL LAB HEMETOLOGY METHOD 05/07/2024 10:09 AM EDT [facility] MPV 10.1 7.0 - 11.0 FL LAB HEMETOLOGY METHOD 05/07/2024 10:09 AM EDT [facility] NRBC 0.0 <1.0 % LAB HEMETOLOGY METHOD 05/07/2024 10:09 AM EDT [facility] NRBC Absolute 0.00 <0.10 K/mcL LAB HEMETOLOGY METHOD 05/07/2024 10:09 AM EDT [facility] Blood Venous blood specimen / Unknown Venipuncture / Unknown 05/07/2024 5:12 AM EDT 05/07/2024 8:53 AM EDT us Matias Bowling MD LAB BLOOD ORDERABLES Final Resul t [facility] [address] [place] [address], documented in this encounter Visit Diagnoses Diagnosis Essential (primary) hypertension Unspecified essential hypertension documented in this encounter Additional Health Concerns Infection Onset Date Last Indicated Resolved Time Gastrointestinal Rule-Out 04/28/2024 04/27/2024 7:06 PM EDT C. difficile 05/29/2024 05/29/2024 06/22/2024 7:04 PM EDT C. difficile Rule-Out 05/30/2024 05/29/20242024 9:47 AM EDT documented as of this encounter Care Teams Patented Hogshead Assembler Relationship Specialty Start Date End Date Matias Bowling MD [address] [facility] [address] [place] [phone] PCP - General Family Medicine 04/16/24 documented as of this encounter
--- OUTSIDE RECORDS SUMMARY | 2025-01-15 09:43 | XMS_ITS | Encounter Summary ---
Author Organization [facility] Address [address] [place] [address] Care Team Providers Care Surveyor Rod Helper Name Role Phone Matias Bowling MD Primary Care Provider [phone] Encounter Details Date Type Department Care Team (Late st Contact Info) Description 05/30/2024 Lab Requisition [facility] - Main Lab [address] [facility] [place] [address] Matias Bowling MD [address] [facility] [address] [place], [address] Diarrhea, unspecified Social History Tobacco Use [...] ORDER MARGARET Final Result Performing Organization Address City/[facility]/ZIP Co de Phone Number [facility] [address] [place] [address], [place] [phone] * Occult blood stool, guaiac (05/29/2024 1:50 PM EDT) Occult Blood, Stool #1 Negative Negative 05/30/2024 9:30 AM EDT [facility] Stool Rectum structure / Unknown Non-blood Collection / Unknown 05/29/2024 1:50 PM EDT 05/30/2024 8:36 AM EDT Matias Bowling MD LAB BODY FLUIDS AND STOOLS ORDER MARGARET Final Result Performing Organization Address [facility]/ZIP Co de Phone Number [facility] [address] [place] [address], [place] [phone] * Ova and parasite examination (05/29/2024 1:50 [...] ORDER MARGARET Final Result Performing Organization Address [facility]/ZIP Co de Phone Number [facility] [address] [place] [address], [place] [phone] * Clostridium difficile toxin (05/29/2024 1:50 PM EDT) C difficile Toxins A+B, EIA 05/30/2024 9:47 AM EDT [facility] Comment:Refer to C. difficil e PCR assay for results. Stool Rectum structure / Unknown Non-blood Collection / Unknown 05/29/2024 1:50 PM EDT 05/30/2024 8:36 AM EDT Matias Bowling MD LAB MICROBIOLOGY - GENERAL ORDER MARGARET Final Result Performing Organization Address [facility] Co de Phone Number [facility] [address] [place] [address], [place] [phone] documented in this encounter Visit Diagnoses Diagnosis Diarrhea, unspecified documented in this encounter Additional Health Concerns Infection Onset Date Last Indicated Resolved Time C. difficile 05/29/2024 05/29/2024 06/22/2024 7:04 PM EDT C. difficile Rule-Out 05/30/2024 05/29/20242024 9:47 AM EDT documented as of this encounter Care Teams Surveyor Rod Helper Relationship Specialty Start Date End Date Matias Bowling MD [address] [place] [address] [address] [place] [address] PCP - General Family Medicine 04/16/24 documented as of this encounter
--- OUTSIDE RECORDS SUMMARY | 2025-01-15 09:43 | XMS_ITS | Clinical Summary ---
Author Organization [address] Address [address] [place] [address] Phone Care Team Providers Care Training Consultant Name Role Phone Matias Bowling MD Primary Care Provider [phone] Social History Tobacco Use Types Packs/Day Years [...] Influencers of Health Screening 04/16/2024 COVID-19 Vaccine (1 - 2024-2 6 season) 2024 Influenza Vaccine (#1) 2024 Colorectal [...] #1 Negative Negative 05/30/2024 9:30 AM EDT [facility] Stool Rectum structure / Unknown Non-blood Collection / Unknown 05/29/2024 1:50 PM EDT 05/30/2024 8:36 AM EDT Matias Bowling MD LAB BODY FLUIDS AND STOOLS ORDER MARGARET Final Result [facility] [address] [place] [address], from Last 3 Months or Most Recently Relevant to Health Maintenance Insurance [facility] MEDICARE Member Subscriber Plan / Payer (Ef fective 2022-Present) Name:Trish Hunter Relation to Subscriber:Self Name:Trish Hunter Payer ID:[id number] Group ID:[id number] Type:Not on file Address: [address] [place] [phone] Care Teams Training Consultant Relationship Specialty Start Date End Date Matias Bowling MD [address] [address] PCP - General Family Medicine 04/16/24
--- OUTSIDE RECORDS SUMMARY | 2025-01-15 09:43 | XMS_ITS | Clinical Summary ---
Author Organization [employer] Address [address] [place] [address] 7[address] [place] [address] Care Team Providers Care Hand Cooper Helper Name Role Phone Ethel Chase Primary Care Provider [phone] Vaishnavi Laird PharmD Unavailable [phone] Allergies Active Allergy Reactions Criticality Noted [...] complication, without long-term current use of insulin ([facility]) USE TO TEST BLOOD SUGAR TWICE DAILY 100 each 11 024 Active Ventolin HFA 108 (90 Base) MCG/ACT inhaler INHALE 2 PUFFS BY MOUTH EVERY 4 HOURS NEEDED FOR WHEEZING OR SHORTNESS OF BREATH 18 g 1 Active glucagon (Baqsimi Two Pack) 3 MG/DOSE nasal powderIndications: Type 2 diabetes mellitus without complication, without long-term current use of insulin ([facility]) Administer 3 mg via 1 device into [...] complication, without long-term current use of insulin ([facility]) Use to inject insulin 1 times daily 100 each 3 024 Active Alcohol Swabs (Alcohol Prep) 70 % padsIndications:Po mabel controlled diabetes mellitus ([facility]) USE DIRECTED BEFORE INSULIN INJECTION [...] complication, with long-term current use of insulin ([facility]) Take 1 tablet (81 mg) by mouth in the evening. 90 tablet 3 025 2025 Active Continuous Glucose Bar Porter (FreeStyle Gerard 3 [place]) deviceIndications: Type 2 diabetes mellitus without complication, with long-term current use of insulin ([facility]) 1 each Once per day. Use as directed for CGM 1 each Active Continuous Glucose Sensor (FreeStyle Gerard 3 Plus Sensor) miscIndications:Ty pe 2 diabetes mellitus without complication, with long-term current use of insulin ([facility]) 1 each every 15 days. Apply 1 every 15 days as directed for CGM 2 each 01/07/20 25 2:32 PM EST Active glucose blood (FreeStyle Precision Angel Test) test stripIndications:T ype 2 diabetes mellitus without complication, with long-term current use of insulin ([facility]) Use to test blood sugar 2 times [...] mouth 2 times daily. 60 tablet Active insulin degludec (Tresiba FlexTouch) 100 UNIT/ML injectionIndicatio ns:Type 2 diabetes mellitus without complication, without long-term current use of insulin ([facility]) Inject 30 units subQ once daily at bedtime. 15 mL Active Tirzepatide (Mounjaro) 12.5 MG/0.5ML solution auto-injectorIndic ations:Type 2 diabetes mellitus without complication, with long-term current use of insulin ([facility]) Inject 12.5 mg under the skin 1 (one) time per week. 2 mL Active furosemide (Lasix) 20 MG tablet TAKE 1 TABLET BY MOUTH EVERY DAY NEEDED FOR SWELLING 14 tablet Active oxyCODONE-acetamin ophen (Percocet) 7.5-325 MG tabletIndications: Other chronic pain Take 1 tablet by mouth every 6 (six) hours if needed for severe pain for up to 28 days. Do not start before January 15, 2025. 112 tablet 025 2024 Active albuterol (2.5 MG/3ML) 0.083% nebulizer solution Take 3 mL by nebulization in the morning, at noon, in the evening, and at bedtime. 2024 Discontinued(M ed list cleanup (will not trigger notification to Pharmacy)) ketoconazole (NIZOral) 2 % cream APPLY TO THE AFFECTED AREA(S) TOPICALLY ONCE DAILY 2024 Discontinued(M ed list cleanup (will not trigger notification to Pharmacy)) Tirzepatide (Mounjaro) 10 MG/0.5ML solution auto-injectorIndic ations:Type 2 diabetes mellitus without complication, with long-term current use of insulin ([facility]) Inject 10 mg under the skin 1 (one) time per week. 2 mL 11 2024 Discontinued(D ose adjustment) oxyCODONE-acetamin ophen (Percocet) [...] each day (swelling). 14 tablet 2024 Discontinued oxyCODONE-acetamin ophen (Percocet) 7.5-325 MG tabletIndications: Other chronic pain Take 1 tablet by mouth every 6 (six) hours if needed for severe pain for up to 28 days. Do not start before December 18, 2024. 112 tablet 2024 Discontinued(R eorder (will not trigger notification to Pharmacy)) furosemide (Lasix) 20 MG tablet TAKE 1 TABLET BY MOUTH EVERY DAY NEEDED FOR SWELLING 14 tablet 2024 Discontinued(R eorder (will not trigger notification to Pharmacy)) Active Problems Problem Noted Date Diagnosed Date Stage 3 chronic kidney disease ([facility]) Long-term current use of opiate analgesic 2024 [...] Encounters Date Type Department Care Team Description 01/13/2025 Refill [facility] [address] [place] [address] Ethel Chase DO Other chronic pain 01/11/2025 Refill [facility] [address] [place] [address] Ethel Chase DO 12/28/2024 Refill [facility] [address] [place] [address] Ethel Chase DO 12/28/2024 Travel 12/16/2024 9:15 AM EDT Office Visit [facility] [address] [place], [place] [phone] Ethel Chase DO Type 2 diabetes mellitus [...] for malignant neoplasm of breast 12/16/2024 Telephone [facility] [address] [place], [place] [phone] Ethel Chase DO Durable Medical Equipment (DME prescription Commode and Shower Chair(CCA SCO)) 12/16/2024 Refill [facility] [address] [place], [place] [phone] Ethel Chase DO Other chronic pain 12/16/2024 Travel 12/15/2024 Orders Only [facility] [address] [place], [place] [phone] Ethel Chase DO Type 2 diabetes mellitus without complication, with long-term current use of insulin (HCC) (Primary Dx) 12/09/2024 Patient Outreach [facility] [address] [place] [address] Ethel Chase DO Pre-visit Planning (SDOH was already completed ) 12/08/2024 Telephone [facility] [place] [address] Ethel Chase DO Chart Prep 12/03/[address] [address] Ethel Chase DO 12/03/[address] [address] Ethel Chase DO Appointment Request 12/01/2024 9:00 AM EDT Clinical Support [address] [address] Suad Wilson RN Long-term current use of opiate analgesic (Primary Dx) 12/01/2024 Telephone [facility] [place] [address] Suad Wilson RN Percocet count discrepancy 12/01/2024 Travel 11/20/2024 Refill [facility] [place] [address] Ethel Chase DO Chronic gastroesophageal reflux disease 11/18/2024 Refill [facility] [address] [place] [address] Ethel Chase DO Other chronic pain 11/14/2024 Refill [facility] [address] [place] [address] Ethel Chase DO 11/04/2024 Refill [facility] [address] [place] [address] Ethel Chase DO 11/04/2024 Travel 10/22/2024 Refill [facility] [address] [place] [address] Ethel Chase DO Other chronic pain 10/18/2024 Orders Only [facility] [address] [place] [address] Ethel Chase DO Post-menopause (Primary Dx) 10/16/2024 Orders Only [facility] [address] [place] [address] Ethel Chase DO from Last 3 Months [...] Description 01/27/2025 10:00 AM EST Medication Management [address] [address] Vaishnavi Laird, BrianD [address] [place] [address] 03/03/2025 9:00 AM EST Clinical Support [facility] [address] [place], [place] [phone] Suad iWlson, MARY Health Maintenance Due Date Last Done Comments [...] 08/05/2025 08/06/2023, 0510/2022, 07/03/2022, Additional history exists Diabetes: Urine Protein [...] directed Result Component No Vaishnavi Laird, PharmD Help patients manage their type 2 diabetes Care Plan Help patients manage their type 2 diabetes No Alyson Vásquez Weekly blood pressure task Care Plan Weekly blood pressure task No Alyson Vásquez Help patients manage their type 2 diabetes Care Plan Help patients manage their type 2 diabetes No Alyson Vásquez Patient has chronic kidney disease Care Plan Patient has chronic kidney disease No Alyson Vásquez Weekly blood pressure task Care Plan Weekly blood pressure task No Alyson Vásquez Patient has chronic kidney disease Care Plan Patient has chronic kidney disease No Alyson Vásquez Weekly blood pressure task Care Plan Weekly blood pressure task No Petros Knight Weekly blood pressure task Care Plan Weekly blood pressure task No Petros Knight Patient has chronic kidney disease Care Plan Patient has chronic kidney disease No Petros Knight Patient has chronic kidney disease Care Plan Patient has chronic kidney disease No Petros nKight Procedures Procedure Name Priority Date/Time Associated Diagnosis Comments POLYSOMNOGRAM Routine 01/06/2025 Sleep-disordered breathing POCT GLYCATED HEMOGLOBIN, TOTAL Routine 12/16/2024 9:14 [...] left femur, unspecified fracture morphology, initial encounter ([facility]) C. difficile colitis Type 2 diabetes mellitus without complication, without long-term current use of insulin ([facility]) Essential hypertension LIPID PANEL, STANDARD Routine 06/30/2024 10:10 AM EDT S/P total knee arthroplasty, left Closed fracture of distal end of left femur, unspecified fracture morphology, initial encounter ([facility]) C. difficile colitis Type 2 diabetes mellitus without complication, without long-term current use of insulin ([facility]) Essential hypertension BI MAMMOGRAM SCREENING TOMOSYNTHESIS BILATERAL Routine 08/06/2023 11:15 AM EDT ZZZ HISTORICAL HEPATITIS C ANTIBODY RFLX Routine 10/31/2019 9:40 AM EDT HM COLONOSCOPY Routine 03/03/2019 from Last 3 Months or Most Recently Relevant to Health Maintenance Results * Polysomnography (01/06/2025) Ethel Chase DO [facility]ENTER ORDERABLES Brittny l Result * (ABNORMAL) POCT Hgb A1c (12/16/2024 9:14 AM EDT) [facility] Hemoglobin A1C 8.4(A) 4.0 - 5.7 % QC Media Lot # [id number] Lot# Expiration Date [id number] Blood 12/16/2024 9:14 AM EDT Ethel Chase DO POINT OF CARE TEST ENTER/MARGARITA T ORDERABLES Final Result * (ABNORMAL) POCT Glucose (12/16/2024 9:14 AM EDT) Pathologist [facility] Glucose Blood, POC 290(A) 60 - 200 mg/dL QC Media Lot # [id number] Lot# Expiration Date 3 Blood Capillary blood specimen / Unknown 12/16/2024 9:14 AM EDT Ethel Chase DO POINT OF CARE TEST ENTER/MARGARITA T ORDERABLES Final Result * BD DEXA Axial (12/15/2024 1:39 PM EDT) Anatomical Region Laterality Modality Body Radiographic Christina ging 12/15/2024 1:39 PM EDT Narrative 12/15/2024 1:54 PM EDT [facility] [address] [place] [address] Mammography Report Signed Patient: Trish Cameron MR#: [id number] : 1955 Acct:[id number] Age/Sex: 68 / F ADM Date: 12/15/24 Loc: HO.MAMMO Attending Dr: Ethel Chase DO Ordering Physician: Ethel Chase DO Results: Date of Service: 12/15/24 Follow Up: Procedure(s): XR DEXA axial skeleton Accession Number(s): [id number] cc: Ethel Chase DO Reason For Exam: osteoporosis screening EXAMINATION: DXA BONE DENSITY AXIAL HISTORY: osteoporosis screening TECHNIQUE: [employer] Dual energy absorptiometry (DEXA) of the lumbar [...] is a trademark of the [employer] [place] for Metabolic Bone Disease, a World Health Organization (WHO) Collaborating Center. Electronically signed by: Isabella Garcia MD 12/15/2024 01:51 PM EDT RP Dictated By: Isabella Garcia MD Signed By: <Electronically signed by Isabella Garcia MD in OV> 12/15/24 1351 DD/ 1339 TD/TT: 12/15/24 1343 Research And Evaluation Manager: MATHEW Procedure Note Donotuseinterpreter, Image - 12/15/20[facility] [address] [place], [place] [address] Mammography Report Signed Patient: Trish Cameron [facility]#: [id number] : 6Acct:[id number] Age/Sex: 68 / FADM Date: 12/15/24 Loc: MIKO Attending Dr: Ethel Chase DO Ordering Physician: Ethel Chaseults: Date of Service: 12/15/24Follow Up: Procedure(s): XR DEXA axial skeleton Accession Number(s): [id number] cc: Ethel Chase DO Reason For Exam: osteoporosis screening EXAMINATION: DXA BONE DENSITY AXIAL HISTORY: osteoporosis screening TECHNIQUE: [employer] Dual energy absorptiometry (DEXA) of the lumbar [...] is a trademark of the [employer] [place] for Metabolic Bone Disease, a World Health Organization (WHO) Collaborating Center. Electronically signed by: Isabella Garcia MD 12/15/2024 01:51 PM EDT Dictated By: Isabella Garcia MD Signed By: <Electronically signed by Isabella Garcia MD in OV> 12/15/24 1351 DD/ 1339 TD/TT: 12/15/24 1343 Research And Evaluation Manager: MATHEW us Ethel Chase DO G DXA PROCEDURES Edited Re sult - Final [...] Negative ng/mL Oxycodone Screen, Urine Positive(A) Negative Comment:[employer] TESTER pt, on Percocet Phencyclidine (PCP), Urine Negative Negative Propoxyphene, Urine Negative Negative Fentanyl, Urine Negative Negative Urine Urine specimen obtained by clean catch procedure / Unknown 12/01/2024 9:04 AM EDT Suad Altamirano RN - 12/01/2024 9:04 AM EDT UTOX cup Lot#[id number] Exp. 12/01/25 Internal Pass Control Ethel Chase DO POINT OF CARE TEST ENTER/MARGARITA T ORDERABLES Final Result * Vitamin D, 25-Hydroxy, Total, Immunoassay (10/16/2024 9:15 AM EDT) Vitamin D 25-OH Total 38.4 >30 ng/mL [facility] Comment: Health Based Reference Values*< 20 ng/mL Onadpouhn64-42 ng/mL Insufficient> 30 ng/mL Sufficient*Nivia ACOSTA. N [...] ORDERABLES Final R esult Performing Organization Address [facility] Co de Phone Number [facility] [address] [place] [phone] * Vitamin B12 (Cobalamin) and Folate Panel, Serum (10/16/2024 9:15 AM EDT) Vitamin B12 331 200 - 900 pg/mL [facility] Comment:NORMAL 200-900 PG/ML INDETERMINATE 160-199 PG/ML DEFICIENT < 160 PG/ML Folate 18.2 > or = 4.0 ng/mL [facility] Comment:Reference Values:> o r = 4.0 ng/mL< 4.0 ng/mL suggests folate deficiency Methotrexate, aminopterin and folinic acid(leucovorin) are chemotherapeutic agents whose molecularstructures are similar to folate; therefore, the Architectfolate assay cannot be used for patients using these drugs. 10/16/2024 9:15 AM EDT 10/16/2024 11:51 AM EDT Ethel Chase LAB BLOOD ORDERABLES Final R esult Performing Organization Address [facility] Co de Phone Number [facility] [address] [place] [phone] [phone] * Albumin, Random Urine W/Creatinine (10/16/2024 9:15 AM EDT) Creatinine, Urine 74.63 mg/dL [facility] Microalbumin Urine <5.0 mg/L [facility] Microalbum Creatinine Ratio Ur TNP <30 ug/mg cr [facility] Comment:Unable to calculate albumin/creatinine ratio due to lowmicroalbumin or creatinine result. 10/16/2024 9:15 AM EDT 10/16/2024 11:49 AM EDT us Ethel Chase DO LAB URINE ORDERABLES Final R esult Performing Organization Address City/[facility]/ZIP Co de Phone Number [facility] [address] [place] [phone] * (ABNORMAL) Iron And Total Iron Binding Capacity (10/16/2024 9:15 AM EDT) Iron 37 30 - 160 mcg/dL [facility] Total Iron Binding Capacity 269 228 - 428 mcg/dL [facility] Percent Iron Saturation 14(L) 15 - 50 % [facility] Unsaturated Iron Binding 232 ug/dL [facility] 10/16/2024 9:15 AM EDT 10/16/2024 11:51 AM EDT us Ethel Chase DO LAB BLOOD ORDERABLES Final R esult Performing Organization Address [facility] de Phone Number [facility] [address] [place] [phone] * TSH (10/16/2024 9:15 AM EDT) Thyroid Stimulating Hormone 3.25 0.32 - 4.0 uIU/mL [facility] Comment:Note: A sustained TS H level above 2.5 uIU/mL may warrant further investigation. TSH 3rd Generation ([facility]) 10/16/2024 9:15 AM EDT 10/16/2024 11:51 AM EDT us Ethel Chase DO LAB BLOOD ORDERABLES Final R esult Performing Organization Address [facility] Co de Phone Number [facility] [address] [place] [phone] * T4, Free (10/16/2024 9:15 AM EDT) Pathologist [facility] Free T4 (Free Thyroxine) 0.98 0.71 - 1.85 ng/dL [facility] Blood Venous blood specimen / Unknown 10/16/2024 9:15 AM EDT 10/16/2024 11:51 AM EDT [facility] BLOOD ORDERABLES Final R esult Performing Organization Address City/[facility]/ZIP Co de Phone Number [facility] [address] [place] [phone] * Ferritin (10/16/2024 9:15 AM EDT) [facility] Ferritin 46 10 - 250 ng/mL [facility] 10/16/2024 9:15 AM EDT 10/16/2024 11:51 AM EDT Ethel [facility] LAB BLOOD ORDERABLES Final R esult Performing Organization Address City/[facility]/ZIP Co de Phone Number [facility] [address] [place] [phone] * (ABNORMAL) Basic Metabolic Panel (10/16/2024 9:15 AM EDT) [facility] Sodium 137 135 - 145 mmol/L [facility] Potassium 4.4 3.3 - 5.1 mmol/L [facility] Chloride 103 96 - 108 mmol/L [facility] Carbon Dioxide 26 22 - 29 mmol/L [facility] Anion Gap 12 12 - 20 [facility] Urea Nitrogen (BUN) 13 9 - 16 mg/dL [facility] Creatinine, Serum 1.10 0.5 - 1.4 mg/dL [facility] Estimated Glomerular Filt Rate 49 [facility] Comment:Chronic Kidney Disea se: Estimated GFR < 60 mL/min/1.70m9Yzaaby Kidney Disease: Estimated GFR < 15 mL/min/1.73m2 Glucose 318(H) 60 - 115 mg/dL [facility] Calcium 9.0 8.4 - 10.2 mg/dL [facility] Blood Venous blood specimen / Unknown 10/16/2024 9:15 AM EDT 10/16/2024 11:51 AM EDT us Gail Jc MD LAB BLOOD ORDERABLES Fin al Result Performing Organization Address City/[facility] Co de Phone Number [facility] [address] [place] [phone] * Lipid Panel, Standard (06/30/2024 10:10 AM EDT) Triglycerides 126 <150 mg/dL [facility] Comment:Desirable Triglyceri de: less than 150 mg/dLBorderline High Triglyceride 150-199 mg/dLHigh Triglyceride: 200-499 mg/dLVery High Triglyceride: greater than or equal to 5OO mg/dL Cholesterol 113 <200 mg/dL [facility] Comment:Desirable Cholestero l: less than 200 mg/dLBorderline High Cholesterol: 200-239 mg/dLHigh Cholesterol: greater than 239 mg/dL LDL Cholesterol Calculated 46 <100 mg/dL [facility] Comment:Desirable LDL: less than 100 mg/dLNear Optimal/Above Optimal LDL: 110- 129 mg/dLBorderline High LDL: 130-159 mg/dLHigh LDL: 160-189 mg/dLVery High LDL: greater than or equal to 190 mg/dL HDL Cholesterol 42 >40 mg/dL [facility] Comment:Desirable HDL: great er than 40 mg/dL Note: This HDL assay may give artificially low results in patients with liver disease. Blood Venous blood specimen / Unknown 06/30/2024 10:10 AM EDT 06/30/2024 11:19 AM EDT us Ethel Chase DO LAB BLOOD ORDERABLES Final R esult [facility] [address] [place] [phone] [phone] * BI Mammogram Screening Tomosynthesis Bilateral (08/06/2023 11:15 AM EDT) Anatomical Region Laterality Modality Breast Bilateral Mammography 08/06/2023 11:1 5 AM EDT Narrative 09/05/2023 9:40 AM EDT [address] [place] [address] Mammography Report Signed Patient: Trish Cameron MR#: [id number] : 1955 Acct:[id number] Age/Sex: 67 / F ADM Date: 08/06/23 Loc: MIKO Attending Dr: Ethel Chase DO Ordering Physician: Ethel Chase DO Results: 1N egative Date of Service: 08/06/23 Follow Up: 1 Year From Orig ina Mammogram Procedure(s): MM tomosynthesis screening BI Accession Number(s): [id number] cc: Ethel Chase DO EXAMINATION: MM SCREENING [...] in OV> 09/05/23 0936 DD/ 1115 TD/TT: Research And Evaluation Manager: Procedure Note Donotuseinterpreter, Image - 09/05/2023 [facility] [address] [place], [place] [address] Mammography Report Signed Patient: Trish Cameron MMR#: [id number] : 6Acct:[id number] Age/Sex: 67 / FADM Date: 08/06/23 Loc: HO.MAMMO Attending Dr: Ethel Chase DO Ordering Physician: Ethel Chaseults: 1N egative Date of Service: 08/06/23Follow Up: 1 Year From Orig inal Mammogram Procedure(s): MM tomosynthesis screening BI Accession Number(s): [id number] cc: Ethel Chase DO EXAMINATION: MM SCREENING [...] signed by Florecita Spring MD in OV> 09/05/2336 DD/ 14 TD/TT: Research And Evaluation Manager: Ethel Chase DO IMG BI PROCEDURES Final Resu lt * HEPATITIS C ANTIBODY RFLX (10/31/2019 9:40 AM EDT) HEPATITIS C ANTIBODY NONREACTIVE NONREACTIVE [facility] Comment: Antibodies to HCV not detected; does not exclude early acute HCV infection. 10/31/2019 9:40 AM EDT Ethel Salvatore DO HISTORICAL/NON ORDERABLE LAB S Final Result [facility] [address] [place] [address], * Colonoscopy (03/03/2019) Pathologist [facility] Colonoscopy follow up in 5 years Historical Provider HEALTH MAINTENANCE Edited Result - Final from Last 3 Months or Most Recently Relevant to Health Maintenance Additional Health Concerns Active Problems Noted Date Diagnosed Date Help patients manage their type 2 diabetes 01/11 Weekly blood pressure task 01/11/2025 Help patients manage their type 2 diabetes 01/11 Patient has chronic kidney disease 01/11/2025 Weekly blood pressure task 01/11/2025 Patient has chronic kidney disease 01/11/2025 Weekly blood pressure task 01/13/2025 Weekly blood pressure task 01/13/2025 Patient has chronic kidney disease 01/13/2025 Patient has chronic kidney disease 01/13/2025 Insurance [employer] (O D-SNP) JOSÉ MIGUEL HERRING [id number] Care Teams Hand Cooper Helper Relationship Specialty Start Date End Date Ethel Chase DO [address] [place] [address] PCP - General Family Medicine 10/12/13 Vaishnavi Laird PharmD [address] [place] [phone] Pharmacist Internal Medicine 02/07/23
--- OUTSIDE RECORDS SUMMARY | 2025-01-15 09:43 | XMS_ITS | Encounter Summary ---
Author Organization Address [address] [place] [phone] Care Team Providers Care Lieutenant Colonel Name Role Phone Matias Bowling MD Primary Care Provider [phone] Encounter Details Date Type Department Care Team (Late st Contact Info) Description 06/10/2024 Lab Requisition [facility] - Main Lab [address] [facility] [place] [address] Matias Bowling MD [address] [facility] [address] [facility] [phone] Essential (primary) hypertension Social History [...] documented as of this encounter Care Teams Lieutenant Colonel Relationship Specialty Start Date End Date Matias Bowling MD [address] [facility] [address] [place] [phone] PCP - General Family Medicine 04/16/24 documented as of this encounter
--- OUTSIDE RECORDS SUMMARY | 2025-01-15 09:43 | XMS_ITS | Encounter Summary ---
Author Organization [employer] Address [address] [place] [address] 7t [place] [address] Care Team Providers Care Superintendent Laundry Name Role Phone Ethel Chase DO Primary Care Provider [phone]- [phone] Vaishnavi Laird PharmD Unavailable [phone] Reason for Visit * Reason Onset Date Comments Nurse Triage 04/16/2023 Encounter Details Date Type Department Care Team ([facility] st Contact Info) Description 04/16/2023 Telephone [facility] MEDICINE [address] [place] [address] Ethel Chase DO 230 [place] [address] Nurse Triage Social History Tobacco Use Types [...] PM EST Triage call regarding message from [facility] see below. Pt answers call , [place] [employer] [id number], but, Pt is speaking maldivian well. Pt reports only high BS was [...] any further problem to come to [facility] for provider to see Pt [...] questions - You become worse [facility] has extreme high blood sugars: 355 Saturday Down to the 250 today Advises that her glucose monitor keeps beeping, [facility] Nurse advised that pt refused urgent alf visit but was advised to go to the urgent. Please contact pt [phone] Algerian Speaker * Telephone Encounter - Tramainehernan Pawel Grider - 04/16/2023 4:18 PM EST Tc from Ambrosio [facility] reporting patient has extreme high blood sugars: 355 Saturday Down to the 250 today Advises that her glucose monitor keeps beeping, [facility] Nurse advised that pt refused urgent alf visit but was advised to go to the urgent. Please contact pt [phone] Algerian Speaker documented in this encounter Plan of Treatment Upcoming Encounters Date Type Department Care Team (Late st Contact Info) Description 01/27/2025 10:00 AM EST Medication Management [address] [address] Vaishnavi Laird, PharmD [address] [place] [address] 03/03/2025 9:00 AM EST Clinical Support [address] [address] Suad Wilson, MARY documented as of this [...] documented as of this encounter Care Teams Superintendent Laundry Relationship Specialty Start Date End Date Ethel Chase DO 230 [place] [address] PCP - General Family Medicine 10/12/13 Vaishnavi Laird PharmD 230 [place] [address] Pharmacist Internal Medicine 02/07/23 [id number] 06/11/24 11/18/24 documented as of this encounter
--- OUTSIDE RECORDS SUMMARY | 2025-01-15 09:43 | XMS_ITS | Encounter Summary ---
Author Organization [employer] Address [address] [place] [address] 7t [place] [address] Care Team Providers Care Cross Tie Turner Name Role Phone Ethel Chase DO Primary Care Provider [phone] Vaishnavi Laird PharmD Unavailable [phone] Reason for Visit * Reason Onset Date Comments Appointment Request 12/03/2024 Encounter Details Date Type Department Care Team ([facility] st Contact Info) Description 12/03/2024 Telephone [facility] MED[facility]INE 230 [place] [address] Ethel Chase DO [address] [place] [address] Appointment Request Social History Tobacco Use Types [...] pt requesting to schedule f/u apt , personal lines underwriter unable to book due to limited availability. Pt on recall Contact pt at [phone] documented in this encounter Plan of Treatment Upcoming Encounters Date Type Department Care Team (Late st Contact Info) Description 01/27/2025 10:00 AM EST Medication Management [address] [address] Vaishnavi Laird, PharmD [address] [place] [address] 03/03/2025 9:00 AM EST Clinical Support [address] [address] Suad Wilson, RN documented as of this [...] documented as of this encounter Care Teams Cross Tie Turner Relationship Specialty Start Date End Date Ethel Chase DO [address] [place] [address] PCP - General Family Medicine 10/12/13 Vaishnavi Laird, BrianD [address] [place] [address] Pharmacist Internal Medicine 02/07/23 documented as of this encounter
--- OUTSIDE RECORDS SUMMARY | 2025-01-15 09:43 | XMS_ITS | Encounter Summary ---
Author Organization [facility] [address] Address [address] [place] [address] Care Team Providers Care Trailer Mechanic Name Role Phone Matias Bowling MD Primary Care Provider [phone] Encounter Details Date Type Department Care Team (Late st Contact Info) Description 05/22/2024 Lab Requisition [facility] - Main Lab [address] [place] [address] Matias Bowling MD 38 [facility] [address] [place], [address] 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 classified elsewhere (CMS/HCC [...] LAB CHEMISTRY METHOD 05/22/2024 11:[address] [facility] Potassium 5.2 3.5 - 5.5 [...] Resul t [facility] [address] [place] [address], * (ABNORMAL) Complete blood count (05/22/2024 8:23 AM EDT) [facility] WBC 9.8 4.8 - 10.8 K/mcL LAB [...] LAB HEMETOLOGY METHOD 05/22/2024 11:21 AM EDT [facility] Blood Venous blood specimen / Unknown Venipuncture / Unknown 05/22/2024 8:23 AM EDT 05/22/2024 10:31 AM EDT us Matias Bowling MD LAB BLOOD ORDERABLES Final Resul t [facility] [address] [place] [address], documented in this encounter Visit Diagnoses Diagnosis 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 classified elsewhere (CMS/HCC V24, CMS/HCC V28) Hyperlipidemia, unspecified documented in this encounter Additional Health Concerns Infection Onset Date Last Indicated Resolved Time Gastrointestinal Rule-Out 04/28/2024 04/27/2024 7:06 PM EDT C. difficile 05/29/2024 05/29/2024 06/22/2024 7:04 PM EDT C. difficile Rule-Out 05/30/2024 05/29/20242024 9:47 AM EDT documented as of this encounter Care Teams Trailer Mechanic Relationship Specialty Start Date End Date Matias Bowling MD [address] [place] [address] [address] [place] [address] PCP - General Family Medicine 04/16/24 documented as of this encounter
--- OUTSIDE RECORDS SUMMARY | 2025-01-15 09:43 | XMS_ITS | Encounter Summary ---
Author Organization [employer] Address [address] [place] [address] 7t h Floor [place] [id number] Care Team Providers Care Fixture Builder Name Role Phone ManuelEthel perry Primary Care Provider [phone]- [phone] Vaishnavi Laird PharmD Unavailable [phone] Reason for Visit * Reason Comments Med Refill Encounter Details Date Type Department Care Team ([facility] st Contact Info) Description 02/02/2023 Refill [facility] MEDICINE 230 [place] [address] Sadie Rivera, ANP 230 [place] [address] Type 2 diabetes mellitus with other specified complication, 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 ([facility]) Social History Tobacco Use Types [...] 01/27/2025 10:00 AM EST Medication Management [address] [address] Vaishnavi Laird PharmD [address] [place] [address] 03/03/2025 9:00 AM EST Clinical Support [address] [address] Suad Wilson, MARY documented as of this encounter Visit Diagnoses Diagnosis Type 2 diabetes mellitus with other specified complication, 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
--- OUTSIDE RECORDS SUMMARY | 2025-01-15 09:43 | XMS_ITS | Encounter Summary ---
Author Organization [facility] Address [address] [place] [address] Care Team Providers Care Leather Dresser Name Role Phone Matias Bowling MD Primary Care Provider [phone] Encounter Details Date Type Department Care Team (Late st Contact Info) Description 06/03/2024 Lab Requisition [facility] - Main Lab 299 [place] [address] Matias Bowling MD 38 [facility] [address] [place], [address] Essential (primary) hypertension Social History Tobacco [...] mmol/L LAB CHEMISTRY METHOD 06/04/2024 11:53 AM [facility] CO2 29 21 - 32 mmol/L LAB CHEMISTRY METHOD 06/04/2024 11:53 AM [facility] Anion Gap 8 3 - 11 LAB CHEMISTRY METHOD 06/04/2024 11:53 AM [facility] Glucose 159(H) 70 - 100 mg/dL LAB CHEMISTRY METHOD 06/04/2024 11:53 AM [facility] BUN 11 5 - 25 mg/dL LAB CHEMISTRY METHOD 06/04/2024 11:53 AM [facility] Creatinine 1.11(H) 0.50 - 1.10 mg/dL LAB CHEMISTRY METHOD 06/04/2024 11:53 AM [facility] eGFR 54(L) >=60 mL/min/1. 73m2 LAB CHEMISTRY METHOD 06/04/2024 11:53 AM [facility] Comment:Calculation based on the Chronic Kidney Disease Epidemiology Collaboration (CKD-EPI) equation refit without adjustment for race. BUN/Creatinine Ratio 9.9 LAB CHEMISTRY METHOD 06/04/2024 11:53 AM [facility] Calcium 9.0 8.5 - 10.5 mg/dL LAB CHEMISTRY METHOD 06/04/2024 11:53 AM [facility] AST (SGOT) 16 10 - 42 unit/L LAB CHEMISTRY METHOD 06/04/2024 11:53 AM [facility] ALT (SGPT) 17 10 - 60 unit/L LAB CHEMISTRY METHOD 06/04/2024 11:53 AM [facility] Alkaline Phosphatase 144(H) 42 - 121 unit/L LAB CHEMISTRY METHOD 06/04/2024 11:53 AM [facility] Total Protein 6.7 6.0 - 8.0 g/dL LAB CHEMISTRY METHOD 06/04/2024 11:53 AM [facility] Albumin 3.2 3.2 - 5.0 g/dL LAB CHEMISTRY METHOD 06/04/2024 11:53 AM EDT [facility] Total Bilirubin 0.2 0.0 - 1.4 mg/dL LAB CHEMISTRY METHOD 06/04/2024 11:53 AM [facility] Blood Venous blood specimen / Unknown Venipuncture / Unknown 06/04/2024 5:45 AM EDT 06/04/2024 11:02 AM EDT us Matias Bowling MD LAB BLOOD ORDERABLES Final Resul t [facility] [address] [place] [address], [place] [phone] * (ABNORMAL) Complete blood count (06/04/2024 5:45 AM EDT) WBC 12.1(H) 4.8 - 10.8 K/mcL LAB HEMETOLOGY METHOD 06/04/2024 11:21 AM [facility] RBC 3.50(L) 3.80 - 4.80 M/mcL LAB HEMETOLOGY METHOD 06/04/2024 11:21 AM [facility] Hemoglobin 9.1(L) 11.5 - 16.0 g/dL LAB HEMETOLOGY METHOD 06/04/2024 11:21 AM [facility] Hematocrit 29.5(L) 35.0 - 47.0 % LAB HEMETOLOGY METHOD 06/04/2024 11:21 AM [facility] MCV 85.0 79.0 - 98.0 FL LAB HEMETOLOGY METHOD 06/04/2024 11:21 AM [facility] MCH 26.2(L) 27.0 - 32.0 pcg LAB HEMETOLOGY METHOD 06/04/2024 11:21 AM [facility] MCHC 30.8(L) 32.0 - 37.0 [...] Final Resul t [facility] [address] [place] [address], documented in this encounter Visit Diagnoses Diagnosis Essential (primary) hypertension Unspecified essential hypertension documented in this encounter Additional Health Concerns Infection Onset Date Last Indicated Resolved Time C. difficile 05/29/2024 05/29/2024 06/22/2024 7:04 PM EDT documented as of this encounter Care Teams Leather Dresser Relationship Specialty Start Date End Date Matias Bowling MD 38 [facility] 204 [place] [address] PCP - General Family Medicine 04/16/24 documented as of this encounter
--- OUTSIDE RECORDS SUMMARY | 2025-01-15 09:43 | XMS_ITS | Encounter Summary ---
Author Organization [employer] Address [address] [place] [address] 7t [place] [address] Care Team Providers Care Safety Equipment Tester Name Role Phone Ethel Chase DO Primary Care Provider [phone]- [phone] Vaishnavi Laird PharmD Unavailable [phone] Reason for Visit * Reason Onset Date Comments Med Refill 01/13/2025 Encounter Details Date Type Department Care Team (Late st Contact Info) Description 01/13/2025 Refill [facility] MEDICINE 230 [place] [address] Ethel Chase DO 230 [place] [address] Other chronic pain Social History Tobacco Use [...] encounter Miscellaneous Notes * Telephone Encounter - Petros Knight - 01/13/2025 9:36 AM EST TC from pt requesting medication refill. Medications needing refill : oxyCODONE-acetaminophen (Percocet) 7.5-325 MG tablet To be sent to: [facility] documented in this encounter Plan of Treatment Upcoming Encounters Date Type Department Care Team (Late st Contact Info) Description 01/27/2025 10:00 AM EST Medication Management [facility] MEDICINE [address] [place] [address] Vaishnavi Laird PharmD [address] [place] [address] 03/03/2025 9:00 AM EST Clinical Support [address] [address] Suad Wilson RN documented as of this encounter Goals Goal Patient Goal Type Associated Problems Recent Progress Patient-Stated? Author Hemoglobin A1c < 7 Result Component 8.4( 9:14 AM EDT) No Vaishnavi Laird, PharmD Record your blood sugar as directed Result Component No Vaishnavi Laird PharmD Help patients manage their type 2 [...] has chronic kidney disease No Petros Knight documented as of this encounter Visit Diagnoses Diagnosis Other chronic pain documented in this encounter Additional Health Concerns Active Problems Noted Date [...] 01/13/2025 Patient has chronic kidney disease 01/13/2025 Assessment Noted Time PHQ-9 Depression Total Score: 10 025 9:16 AM EDT documented as of this encounter Care Teams Safety Equipment Tester Relationship Specialty Start Date End Date Ethel Chase DO 230 [place], [place] [phone] PCP - General Family Medicine 10/12/13 Vaishnavi Laird, PharmD [address] [place] [address] Pharmacist Internal Medicine 02/07/23 documented as of this encounter
--- OUTSIDE RECORDS SUMMARY | 2025-01-15 09:43 | XMS_ITS | Encounter Summary ---
Author Organization [employer] Address [address] [place] [address] 7t [place] [address] Care Team Providers Care Government Clerk Name Role Phone Ethel Chase DO Primary Care Provider PuVaishnavi thorpe PharmD Unavailable [phone] Reason for Visit * Reason Comments Med Refill Encounter Details Date Type Department Care Team ([facility] Contact Info) Description 10/25/2022 Refill [facility]S [address] [place] [address] Eun Ray MD 230 [place] [address] Other chronic pain Social History [...] Upcoming Encounters Date Type Department Care Team ([facility] Contact Info) Description 01/27/2025 10:00 AM EST Medication Management [facility] MEDICINE [address] [place] [address] Puia, Avishnavi, PharmD [address] [place] [address] 03/03/2025 9:00 AM EST Clinical Support [facility] MEDICINE [address] [place] [address] Suad Wilson, RN documented as of this encounter Visit Diagnoses Diagnosis Other chronic pain documented in this encounter Additional Health Concerns Assessment Noted Time PHQ-9 Depression Total Score: 0 02/08/20 10:43 AM EST documented as of this encounter Care Teams Government Clerk Relationship Specialty Start Date End Date [place] [address] PCP - General Family Medicine 10/12/13 Vaishnavi Laird PharmD [address] [place] [address] Pharmacist Internal Medicine 02/07/23 [id number] 06/11/24 11/18/24 documented as of this encounter
--- OUTSIDE RECORDS SUMMARY | 2025-01-15 09:43 | XMS_ITS | Encounter Summary ---
Author Organization [facility] Address [address] [place] [address] Care Team Providers Care Log Cutter Name Role Phone Matias Bowling MD Primary Care Provider [phone] Encounter Details Date Type Department Care Team (Late st Contact Info) Description 05/13/2024 Lab Requisition [facility] - Main Lab [address] [place] [address] Matias Bowling MD 38 [facility] [address] [place], [address] Essential (primary) hypertension Social History Tobacco [...] LAB CHEMISTRY METHOD 05/14/2024 11:24 AM EDT [facility] Potassium 5.2 3.5 - 5.5 mmol/L LAB CHEMISTRY METHOD 05/14/2024 11:24 AM EDT [facility] Chloride 108 96 - [...] LAB CHEMISTRY METHOD 05/14/2024 11:24 AM EDT [facility] Total Bilirubin 0.2 0.0 - 1.4 mg/dL LAB CHEMISTRY METHOD 05/14/2024 11:24 AM T [facility] Blood Venous blood specimen / Unknown Venipuncture / Unknown 05/14/2024 6:06 AM EDT 05/14/2024 9:53 AM EDT us Matias Bowling MD LAB BLOOD ORDERABLES Final Resul t [facility] [address] [place] [address], [place] [phone] * (ABNORMAL) Complete blood count (05/14/2024 6:06 [...] LAB HEMETOLOGY METHOD 05/14/2024 10:16 AM EDT [facility] RDW 14.6 11.0 - 15.0 % LAB HEMETOLOGY METHOD 05/14/2024 10:16 AM EDT [facility] Platelets 275 130 - 400 K/mcL LAB HEMETOLOGY METHOD 05/14/2024 10:16 AM EDT [facility] MPV 10.1 7.0 - 11.0 FL LAB HEMETOLOGY METHOD 05/14/2024 10:16 AM EDT [facility] NRBC 0.0 <1.0 % LAB HEMETOLOGY METHOD 05/14/2024 10:16 AM EDT [facility] NRBC Absolute 0.00 <0.10 K/mcL LAB HEMETOLOGY METHOD 05/14/2024 10:16 AM EDT [facility] Blood Venous blood specimen / Unknown Venipuncture / Unknown 05/14/2024 6:06 AM EDT 05/14/2024 9:53 AM EDT us Matias Bowling MD LAB BLOOD ORDERABLES Final Resul t [facility] [address] [place] [address], documented in this encounter Visit Diagnoses Diagnosis Essential (primary) hypertension Unspecified essential hypertension documented in this encounter Additional Health Concerns Infection Onset Date Last Indicated Resolved Time Gastrointestinal Rule-Out 04/28/2024 04/27/2024 7:06 PM EDT C. difficile 05/29/2024 05/29/2024 06/22/2024 7:04 PM EDT C. difficile Rule-Out 05/30/2024 05/29/20242024 9:47 AM EDT documented as of this encounter Care Teams Log Cutter Relationship Specialty Start Date End Date Matias Bowling MD [address] [place] [address] PCP - General Family Medicine 04/16/24 documented as of this encounter
--- OUTSIDE RECORDS SUMMARY | 2025-01-15 09:43 | XMS_ITS | Encounter Summary ---
Author Organization [employer] Address [address] [place] [address] 7t [place] [address] Care Team Providers Care Manager Field Investigations Name Role Phone Ethel Chase DO Primary Care Provider [phone] Vaishnavi Laird PharmD Unavailable [phone] Reason for Visit * Reason Onset Date Comments Hospital Follow-up 06/08/2024 Encounter Details Date Type Department Care Team (Late st Contact Info) Description 06/08/2024 Telephone [facility] MEDICINE [address] [place] [address] Ethel Chase DO [address] [place] [address] Hospital Follow-up Social History Tobacco Use Types [...] from pt requesting a HDF appt. [facility] [facility] Date of admission[facility] 04[place]10 to [facility] [place] 04[place]15 admitted into [facility] Discharge date: 06/04/24 Diagnosed: Left leg fracture post simpson *Send message to [place] Clinical Care Coordinators Contact pt at [phone] documented in this encounter Plan of Treatment Upcoming Encounters Date Type Department Care Team ([facility] st Contact Info) Description 01/27/2025 10:00 AM EST Medication Management [facility] [address] [place] [address] Vaishnavi Laird, PharmD [address] [place] [address] 03/03/2025 9:00 AM EST Clinical Support [facility] [address] [place] [address] Suad Wilson, RN documented as of this [...] as of this encounter Care Teams Manager Field Investigations Relationship Specialty Start Date End Date Ethel Chase DO [address] [place] [address] PCP - General Family Medicine 10/12/13 Vaishnavi Laird, PharmD [address] [place] [address] Pharmacist Internal Medicine 02/07/23 [id number] 06/11/24 11/18/24 documented as of this encounter
--- OUTSIDE RECORDS SUMMARY | 2025-01-15 09:43 | XMS_ITS | Encounter Summary ---
Author Organization [employer] Address [address] [place] [address] 7t [place] [address] Care Team Providers Care Portable Sawyer Name Role Phone Ethel Chase DO Primary Care Provider [phone] Vaishnavi Laird PharmD Unavailable [phone] Reason for Visit * Reason Onset Date Comments Pre-Op 03/23/2024 Encounter Details Date Type Department Care Team ([facility] st Contact Info) Description 03/23/2024 Telephone [facility] MEDICINE [address] [place] [address] Ethel Chase DO [address] [place] [address] Pre-Op Social History Tobacco Use Types Packs/Day [...] Yes Surgeon's name: Dave Oro Facility name: [facility] Orthopedic Surgeon's office number: [phone] Surgeon's office fax number: [phone] Contact name (person you spoke with): Trish - Pt requesting reschedule 02/13 appt. Last office note from surgeon requested: Yes Send Message to Venus Crowell documented in this encounter Plan of Treatment Upcoming Encounters Date Type Department Care Team (Late st Contact Info) Description 01/27/2025 10:00 AM EST Medication Management [address] [address] Vaishnavi Laird PharmD [address] [place] [address] 03/03/2025 9:00 AM EST Clinical Support [address] [address] Suad Wilson, MARY documented as of this [...] documented as of this encounter Care Teams Portable Sawyer Relationship Specialty Start Date End Date Ethel Chase DO [address] [place] [address] PCP - General Family Medicine 10/12/13 Vaishnavi Laird PharmD [address] [place] [address] Pharmacist Internal Medicine 02/07/23 [id number] 06/11/24 11/18/24 documented as of this encounter
--- OUTSIDE RECORDS SUMMARY | 2025-01-15 09:43 | XMS_ITS | Encounter Summary ---
Author Organization [employer] Address [address] [place] [address] 7t [place] [address] Care Team Providers Care Coverage Specialist Name Role Phone Ethel Chase Primary Care Provider PuVaishnavi thorpe PharmD Unavailable [phone] Reason for Visit * Reason Comments Med Refill Encounter Details Date Type Department Care Team (Late st Contact Info) Description 08/10/2022 Refill [facility] MEDICINE [address] [place] [address] [facility] [address] [place] [address] Social History Tobacco Use Types Packs/Day Years [...] Description 01/27/2025 10:00 AM EST Medication Management [facility] [address] [place] [address] Puia, Vaishnavi, PharmD [address] [place] [address] 03/03/2025 9:00 AM EST Clinical Support [facility] [address] [place] [address] Suad Wilson, RN documented as of this encounter Visit Diagnoses Not on filedocumented in this encounter Additional Health Concerns Assessment Noted Time PHQ-9 Depression Total Score: 0 02/08/20 22 10:43 AM EST documented as of this encounter Care Teams Coverage Specialist Relationship Specialty Start Date End Date Ethel Chase DO [address] [place] [address] PCP - General Family Medicine 10/12/13 Vaishnavi Laird, Zana [address] [place] [address] Pharmacist Internal Medicine 02/07/23 [id number] 06/11/24 11/18/24 documented as of this encounter
--- OUTSIDE RECORDS SUMMARY | 2025-01-15 09:43 | XMS_ITS | Encounter Summary ---
Author Organization [facility] Address [address] [place] [address] Care Team Providers Care Assistant Media Buyer Name Role Phone Matias Bowling MD Primary Care Provider [phone] Encounter Details Date Type Department Care Team (Late st Contact Info) Description 04/23/2024 Lab Requisition [facility] - Main Lab [address] [place] [address] Matias Bowling MD 38 [facility] [address] [place], [address] Essential (primary) hypertension Social History Tobacco [...] mmol/L LAB CHEMISTRY METHOD 04/23/2024 10:18 AM [facility] CO2 25 21 - 32 mmol/L LAB CHEMISTRY METHOD 04/23/2024 10:18 AM [facility] Anion Gap 9 3 - 11 LAB CHEMISTRY METHOD 04/23/2024 10:18 AM [facility] Glucose 114(H) 70 - 100 mg/dL LAB CHEMISTRY METHOD 04/23/2024 10:18 AM [facility] BUN 17 5 - 25 mg/dL LAB CHEMISTRY METHOD 04/23/2024 10:18 AM [facility] Creatinine 1.01 0.50 - 1.10 mg/dL LAB CHEMISTRY METHOD 04/23/2024 10:18 AM [facility] eGFR 61 >=60 mL/min/1. 73m2 LAB CHEMISTRY METHOD 04/23/2024 10:18 AM [facility] Comment:Calculation based on the Chronic Kidney Disease Epidemiology Collaboration (CKD-EPI) equation refit without adjustment for race. BUN/Creatinine Ratio 16.8 LAB CHEMISTRY METHOD 04/23/2024 10:18 AM [facility] Calcium 9.4 8.5 - 10.5 mg/dL LAB CHEMISTRY METHOD 04/23/2024 10:18 AM [facility] AST (SGOT) 18 10 - 42 unit/L LAB CHEMISTRY METHOD 04/23/2024 10:18 AM [facility] ALT (SGPT) 25 10 - 60 unit/L LAB CHEMISTRY METHOD 04/23/2024 10:18 AM [facility] Alkaline Phosphatase 165(H) 42 - 121 unit/L LAB CHEMISTRY METHOD 04/23/2024 10:18 AM [facility] Total Protein 7.0 6.0 - 8.0 g/dL LAB CHEMISTRY METHOD 04/23/2024 10:18 AM [facility] Albumin 3.3 3.2 - 5.0 g/dL LAB CHEMISTRY METHOD 04/23/2024 10:18 AM [facility] Total Bilirubin 0.4 0.0 - 1.4 mg/dL LAB CHEMISTRY METHOD 04/23/2024 10:18 AM [facility] Blood Venous blood specimen / Unknown Venipuncture / Unknown 04/23/2024 5:04 AM EST 04/23/2024 8:47 AM EST us Matias Bowling MD LAB BLOOD ORDERABLES Final Resul t [facility] [address] [place] [address], * (ABNORMAL) Complete blood count (04/23/2024 5:04 AM EST) WBC 8.9 4.8 - 10.8 K/mcL LAB HEMETOLOGY METHOD 04/23/2024 9:28 AM [facility] RBC 3.40(L) 3.80 - 4.80 M/mcL LAB HEMETOLOGY METHOD 04/23/2024 9:28 AM [facility] Hemoglobin 9.2(L) 11.5 - 16.0 g/dL LAB HEMETOLOGY METHOD 04/23/2024 9:28 AM [facility] Hematocrit 30.3(L) 35.0 - 47.0 % LAB HEMETOLOGY METHOD 04/23/2024 9:28 AM [facility] MCV 88.1 79.0 - 98.0 FL LAB HEMETOLOGY METHOD 04/23/2024 9:28 AM [facility] MCH 26.7(L) 27.0 - 32.0 pcg LAB HEMETOLOGY METHOD 04/23/2024 9:28 AM [facility] MCHC 30.4(L) 32.0 - 37.0 g/dL LAB HEMETOLOGY METHOD 04/23/2024 9:28 AM EST [facility] RDW 14.6 11.0 - 15.0 % LAB HEMETOLOGY METHOD 04/23/2024 9:28 AM [facility] Platelets 333 130 - 400 K/mcL LAB HEMETOLOGY METHOD 04/23/2024 9:28 AM [facility] MPV 9.8 7.0 - 11.0 FL LAB HEMETOLOGY METHOD 04/23/2024 9:28 AM [facility] NRBC 0.0 <1.0 % LAB HEMETOLOGY METHOD 04/23/2024 9:28 AM [facility] NRBC Absolute 0.00 <0.10 K/mcL LAB HEMETOLOGY METHOD 04/23/2024 9:28 AM [facility] Blood Venous blood specimen / Unknown Venipuncture / Unknown 04/23/2024 5:04 AM EST 04/23/2024 8:47 AM EST us Matias Bowling MD LAB BLOOD ORDERABLES Final Resul t [facility] [address] [place] [address], documented in this encounter Visit Diagnoses Diagnosis Essential (primary) hypertension Unspecified essential hypertension documented in this encounter Additional Health Concerns Infection Onset Date Last Indicated Resolved Time Gastrointestinal Rule-Out 04/28/2024 04/27/2024 7:06 PM EDT C. difficile 05/29/2024 05/29/2024 06/22/2024 7:04 PM EDT C. difficile Rule-Out 05/30/2024 05/29/20242024 9:47 AM EDT documented as of this encounter Care Teams Assistant Media Buyer Relationship Specialty Start Date End Date Matias Bowling MD [address] [place] [phone] PCP - General Family Medicine 04/16/24 documented as of this encounter
--- OUTSIDE RECORDS SUMMARY | 2025-01-15 09:43 | XMS_ITS | Encounter Summary ---
Author Organization [facility] Address [address] [place] [address] Care Team Providers Care Radiator Fitter Name Role Phone Matias Bowling MD Primary Care Provider [phone] Encounter Details Date Type Department Care Team (Late st Contact Info) Description 05/20/2024 Lab Requisition [facility] - Main Lab [address] [place] [address] Matias Bowling MD 38 [facility] [address] [place], [address] Essential (primary) hypertension Social History Tobacco [...] LAB CHEMISTRY METHOD 05/21/2024 11:29 AM EDT [facility] Potassium 5.9(H) 3.5 - 5.5 mmol/L LAB CHEMISTRY METHOD 05/21/2024 11:29 AM EDT [facility] Chloride 102 96 - 110 mmol/L LAB CHEMISTRY METHOD 05/21/2024 11:29 AM [facility] CO2 27 21 - 32 mmol/L LAB CHEMISTRY METHOD 05/21/2024 11:29 AM [facility] Anion Gap 7 3 - 11 LAB CHEMISTRY METHOD 05/21/2024 11:29 AM [facility] Glucose 152(H) 70 - 100 mg/dL LAB CHEMISTRY METHOD 05/21/2024 11:29 AM [facility] BUN 21 5 - 25 mg/dL LAB CHEMISTRY METHOD 05/21/2024 11:29 AM [facility] Creatinine 2.30(H) 0.50 - 1.10 mg/dL LAB CHEMISTRY METHOD 05/21/2024 11:29 AM [facility] eGFR 23(L) >=60 mL/min/1. 73m2 LAB CHEMISTRY METHOD 05/21/2024 11:29 AM [facility] Comment:Calculation based on the Chronic Kidney Disease Epidemiology Collaboration (CKD-EPI) equation refit without adjustment for race. BUN/Creatinine Ratio 9.1 LAB CHEMISTRY METHOD 05/21/2024 11:29 AM [facility] Calcium 8.9 8.5 - 10.5 mg/dL LAB CHEMISTRY METHOD 05/21/2024 11:29 AM [facility] AST (SGOT) 23 10 - 42 unit/L LAB CHEMISTRY METHOD 05/21/2024 11:29 AM [facility] ALT (SGPT) 30 10 - 60 unit/L LAB CHEMISTRY METHOD 05/21/2024 11:29 AM [facility] Alkaline Phosphatase 174(H) 42 - 121 unit/L LAB CHEMISTRY METHOD 05/21/2024 11:29 AM [facility] Total Protein 6.7 6.0 - 8.0 g/dL LAB CHEMISTRY METHOD 05/21/2024 11:29 AM [facility] Albumin 3.3 3.2 - 5.0 g/dL LAB CHEMISTRY METHOD 05/21/2024 11:29 AM EDT [facility] Total Bilirubin 0.3 0.0 - 1.4 mg/dL LAB CHEMISTRY METHOD 05/21/2024 11:29 AM EDT [facility] Blood Venous blood specimen / Unknown Venipuncture / Unknown 05/21/2024 5:43 AM EDT 05/21/2024 9:27 AM EDT us Matias Bowling MD LAB BLOOD ORDERABLES Final Resul t [facility] [address] [place] [address], [place] [phone] * (ABNORMAL) Complete blood count (05/21/2024 5:43 AM EDT) WBC 10.3 4.8 - 10.8 K/mcL LAB HEMETOLOGY METHOD 05/21/2024 10:10 AM T [facility] RBC 3.50(L) 3.80 - 4.80 M/mcL LAB HEMETOLOGY METHOD 05/21/2024 10:10 AM [facility] Hemoglobin 9.0(L) 11.5 - 16.0 g/dL LAB HEMETOLOGY METHOD 05/21/2024 10:10 AM T [facility] Hematocrit 30.0(L) 35.0 - 47.0 % LAB HEMETOLOGY METHOD 05/21/2024 10:10 AM EDT [facility] MCV 86.5 79.0 - 98.0 FL LAB HEMETOLOGY METHOD 05/21/2024 10:10 AM [facility] MCH 25.9(L) 27.0 - 32.0 pcg LAB HEMETOLOGY METHOD 05/21/2024 10:10 AM T [facility] MCHC 30.0(L) 32.0 - 37.0 g/dL LAB HEMETOLOGY METHOD 05/21/2024 10:10 AM EDT [facility] RDW 15.1(H) 11.0 - 15.0 % LAB HEMETOLOGY METHOD 05/21/2024 10:10 AM EDT [facility] Platelets 272 130 - 400 K/mcL LAB HEMETOLOGY METHOD 05/21/2024 10:10 AM EDT [facility] MPV 10.2 7.0 - 11.0 FL LAB HEMETOLOGY METHOD 05/21/2024 10:10 AM EDT [facility] NRBC 0.0 <1.0 % LAB HEMETOLOGY METHOD 05/21/2024 10:10 AM EDT [facility] NRBC Absolute 0.00 <0.10 K/mcL LAB HEMETOLOGY METHOD 05/21/2024 10:10 AM EDT [facility] Blood Venous blood specimen / Unknown Venipuncture / Unknown 05/21/2024 5:43 AM EDT 05/21/2024 9:27 AM EDT us Matias Bowling MD LAB BLOOD ORDERABLES Final Resul t [facility] [address] [place] [address], documented in this encounter Visit Diagnoses Diagnosis Essential (primary) hypertension Unspecified essential hypertension documented in this encounter Additional Health Concerns Infection Onset Date Last Indicated Resolved Time Gastrointestinal Rule-Out 04/28/2024 04/27/2024 7:06 PM EDT C. difficile 05/29/2024 05/29/2024 06/22/2024 7:04 PM EDT C. difficile Rule-Out 05/30/2024 05/29/20242024 9:47 AM EDT documented as of this encounter Care Teams Radiator Fitter Relationship Specialty Start Date End Date Matias Bowling MD [address] [place] [address] PCP - General Family Medicine 04/16/24 documented as of this encounter
--- OUTSIDE RECORDS SUMMARY | 2025-01-15 09:43 | XMS_ITS | Encounter Summary ---
Author Organization [facility] Address [address] [place] [address] Care Team Providers Care Box Toe Cementer Name Role Phone Matias Bowling MD Primary Care Provider [phone] Encounter Details Date Type Department Care Team (Late st Contact Info) Description 04/16/2024 Lab Requisition [facility] - Main Lab [address] [place] [address] Matias Bowling MD 38 [facility] [address] [place], [address] Essential (primary) hypertension Social History Tobacco [...] Final Resul t [facility] [address] [place] [address], * (ABNORMAL) Complete blood count (04/16/2024 7:33 [...] 04/16/2024 11:12 AM EST [facility] Platelets 443(H) 130 - 400 K/mcL LAB HEMETOLOGY METHOD 04/16/2024 11:12 AM EST [facility] MPV 9.8 7.0 - 11.0 FL LAB HEMETOLOGY METHOD 04/16/2024 11:12 AM EST [facility] NRBC 0.0 <1.0 % LAB HEMETOLOGY METHOD 04/16/2024 11:12 AM EST [facility] NRBC Absolute 0.00 <0.10 K/mcL LAB HEMETOLOGY METHOD 04/16/2024 11:12 AM [facility] Blood Venous blood specimen / Unknown Venipuncture / Unknown 04/16/2024 7:33 AM EST 04/16/2024 10:20 AM EST us Matias Bowling MD LAB BLOOD ORDERABLES Final Resul t [facility] [address] [place] [address], documented in this encounter Visit Diagnoses Diagnosis Essential (primary) hypertension Unspecified essential hypertension documented in this encounter Additional Health Concerns Infection Onset Date Last Indicated Resolved Time Gastrointestinal Rule-Out 04/28/2024 04/27/2024 7:06 PM EDT C. difficile 05/29/2024 05/29/2024 06/22/2024 7:04 PM EDT C. difficile Rule-Out 05/30/2024 05/29/20242024 9:47 AM EDT documented as of this encounter Care Teams Box Toe Cementer Relationship Specialty Start Date End Date Matias Bowling MD [address] [place] [address] [address] [place] [address] PCP - General Family Medicine 04/16/24 documented as of this encounter
--- OUTSIDE RECORDS SUMMARY | 2025-01-15 09:43 | XMS_ITS | Encounter Summary ---
Author Organization [employer] Address [address] [place] [address] 7[address] [place] [address] Care Team Providers Care Swine Nutritionist Name Role Phone Ethel Chase DO Primary Care Provider [phone] Vaishnavi Laird PharmD Unavailable [phone] Reason for Visit * Reason Comments Med Refill Encounter Details Date Type Department Care Team ([facility] st Contact Info) Description 11/14/2024 Refill [facility] [address] [place] [address] Ethel Chase DO [address] [place] [address] Social History Tobacco Use Types Packs/Day Years [...] Description 01/27/2025 10:00 AM EST Medication Management [address] [address] Puia, Vaishnavi, PharmD [address] [place] [address] 03/03/2025 9:00 AM EST Clinical Support [address] [address] Suad Wilson RN documented as of this [...] documented as of this encounter Care Teams Swine Nutritionist Relationship Specialty Start Date End Date Ethel Chase DO [address] [place] [address] PCP - General Family Medicine 10/12/13 Vaishnavi Laird, BrianD [address] [place] [address] Pharmacist Internal Medicine 02/07/23 [email or web address] 06/11/24 11/18/24 documented as of this encounter
--- OUTSIDE RECORDS SUMMARY | 2025-01-15 09:43 | XMS_ITS | Encounter Summary ---
Author Organization [employer] Address [address] [place] [address] 7[address] [place] [address] Care Team Providers Care Conservator Artifacts Name Role Phone Ethel Chase DO Primary Care Provider Vaishnavi Laird PharmD Unavailable [phone] Reason for Visit * Reason Comments Med Refill Encounter Details Date Type Department Care Team ([facility] st Contact Info) Description 03/23/2024 Refill [facility] [address] [place] [address] Ethel Chase DO [address] [place] [address] Other chronic pain Social History Tobacco Use [...] 01/27/2025 10:00 AM EST Medication Management [address] [address] Puia, Vaishnavi, PharmD [address] [place] [address] 03/03/2025 9:00 AM EST Clinical Support [address] [address] Suad Wilson RN documented as of this [...] documented as of this encounter Care Teams Conservator Artifacts Relationship Specialty Start Date End Date Ethel Chase DO [address] [place] [address] PCP - General Family Medicine 10/12/13 Vaishnavi Laird, Zana [address] [place] [address] Pharmacist Internal Medicine 02/07/23 [id number] 06/11/24 11/18/24 documented as of this encounter
--- OUTSIDE RECORDS SUMMARY | 2025-01-15 09:43 | XMS_ITS | Encounter Summary ---
Author Organization [employer] Address [address] [place] [address] 7[address] [place] [address] Care Team Providers Care Pot Fireman Name Role Phone Ethel Chase DO Primary Care Provider [phone] Vaishnavi Laird PharmD Unavailable [phone] Reason for Visit * Reason Onset Date Comments Med Refill 01/11/2025 Encounter Details Date Type Department Care Team (Late st Contact Info) Description 01/11/2025 Refill [facility] MEDICINE [address] [place] [address] Ethel Chase DO [address] [place] [address] Social History Tobacco Use Types Packs/Day Years [...] Miscellaneous Notes * Telephone Encounter - Ethel Ross LPN - 01/11/2025 10:34 AM EST Last seen 12/16/24. * Telephone Encounter - Alyson Michelle - 01/11/2025 10:33 AM EST TC from pt requesting medication refill. Medications needing refill : furosemide (Lasix) 20 MG tablet To be sent to: [facility] documented in this encounter Plan of Treatment Upcoming Encounters Date Type Department Care Team (Late st Contact Info) Description 01/27/2025 10:00 AM EST Medication Management [facility] MEDICINE [address] [place] [address] Vaishnavi Laird, PharmD [address] [place] [address] 03/03/2025 9:00 AM EST Clinical Support [facility]INE [address] [place] [address] Katie, Suad, RN documented as of this encounter Goals [...] has chronic kidney disease No Alyson Vásquez documented as of this encounter Visit Diagnoses Not on filedocumented in this encounter Additional Health Concerns Active Problems Noted Date Diagnosed Date Help patients manage their type 2 diabetes 01/11 Weekly blood pressure task 01/11/2025 Help patients manage their type 2 diabetes 01/11 Patient has chronic kidney disease 01/11/2025 Weekly blood pressure task 01/11/2025 Patient has chronic kidney disease 01/11/2025 Assessment Noted Time PHQ-9 Depression Total Score: 10 025 9:16 AM EDT documented as of this encounter Care Teams Pot Fireman Relationship Specialty Start Date End Date Ethel Chase DO [address] [place] [address] PCP - General Family Medicine 10/12/13 Vaishnavi Laird PharmD [address] [place] [address] Pharmacist Internal Medicine 02/07/23 documented as of this encounter
--- OUTSIDE RECORDS SUMMARY | 2025-01-15 09:43 | XMS_ITS | Data Portability ---
Author Organization [facility] [employer] [facility] Address [address] [place] [address] Care Team Providers Care Geophysical E Logger Name Role Phone Unavailable OTHER HIM CCA [...] Assessment and Plan as documented by the Looper Operator. We discussed the diagnostic uncertainty of home [...] e 2 % topical cream 2024 025 [facility], [address] [place] [address], [phone], 08:56:17 Patient TargetsNo targets recorded. Patient InstructionsNo instructions recorded. Reason for Referral None Reported. Medical Equipment None Reported. Allergies Allergen ID Allergen Name Allergen Category Reaction Reaction Severity Criticality Documentation Date Start Date Code Code System Note Provider Name and Address Organization Details Recorded Time 99437 morphine medicatio n Not available Not available Not available 09/03/2024 7052 RxNorm [facility] 10:35:22 22420 tramadol medicatio n Not available Not available Not available 09/03/2024 28556 RxNorm Not Available [facility] 10:35:22 99956 Iodinated contrast media (substanc e) medicatio n Not available Not available Not available 09/03/2024 68146 2004 SNOMED Not Available [facility] 10:35:22 67292 Non-stero idal anti-infl ammatory agent (substanc e) medicatio n Not available Not available Not available 09/03/2024 52513 5008 SNOMED Not Available [facility] 10:35:22 Medications Name Sig Start [...] Available No t Available FreeStyle Gerard 2 [place] USE DIRECTED EVERY 8 HOURS active Not [...] Available No t Available FreeStyle Gerard 3 [place] USE DIRECTED TO TEST BLOOD SUGAR EVERY [...] Recorded Respiratory rate Body weight Oxygen saturation Body temperature Heart rate Body height Systolic And Diastolic Provider Name and Address Organization Details Last Updated DateTime 5 14 /min 470146. 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 [id number] Health Concerns Section Related Observation LastModified by Organization Detai ls LastModified Time None Recorded Concern Status LastModified by Organization Details LastModified Time None Recorded Advance Directives Directive None Recorded Payers Insurance Date Sequence Insurance Name Policy Number Policy Mccauley Covered Member ID Mccauley Member ID Guarantor Name 09/29/2024 1 [facility] - DOS ON OR AFTER 2022 - DUAL ELIGIBLE - [facility] OPTIONS AND ONE CARE (MEDICARE REPLACEMENT/ADV ANTAGE - HMO) Trish Hunter [id number] Trish Hunter Notes Date Note Type Note [...] ...................... ...................... ...................... ...................... ...................... ...................... ......... Looper Operator Note From Mukund Hunter: Patient alert and [...] full sentences, extremities unremarkable no edema noted. [facility] orders topical antifungal to patient s local pharmacy. Patient reports she l l be able to obtain that medication today. Patient advised to follow up with PCP today. Supportive care, red flags, and patient education discussed. Patient demonstrates understanding of care and plan. Patient given an opportunity to ask questions. ...................... ...................... ...................... ...................... ...................... ...................... ......... [facility] Consulted: Leni Choi ...................... ...................... ...................... ...................... ...................... ...................... ......... Disposition: Fulfilled LENI CHOI MD 30 [facility] [facility], [place], [address], ADITYA ZAPATA 09/03/2024 12:53:02 OBGyn Episode No OBEpisode recorded.
--- OUTSIDE RECORDS SUMMARY | 2025-01-15 09:44 | XMS_ITS | Encounter Summary ---
Author Organization [employer] Address [address] [place] [address] 7t [place] [address] Care Team Providers Care Buckle Strap Puncher Name Role Phone Ethel Chase DO Primary Care Provider [phone] Vaishnavi Laird PharmD Unavailable [phone] Reason for Visit * Reason Comments Med Refill Encounter Details Date Type Department Care Team ([facility] st Contact Info) Description 04/16/2024 Refill [facility] [address] [place] [address] Ethel Chase DO [address] [place] [address] Social History Tobacco Use Types Packs/Day Years [...] Description 01/27/2025 10:00 AM EST Medication Management [address] [address] Puia, Vaishnavi, PharmD [address] [place] [address] 03/03/2025 9:00 AM EST Clinical Support [address] [address] Suad Wilson, MARY documented as of this [...] documented as of this encounter Care Teams Buckle Strap Puncher Relationship Specialty Start Date End Date Ethel Chase DO [address] [place] [address] PCP - General Family Medicine 10/12/13 Vaishnavi Laird, BrianD [address] [place] [address] Pharmacist Internal Medicine 02/07/23 [id number] 06/11/24 11/18/24 documented as of this encounter
--- OUTSIDE RECORDS SUMMARY | 2025-01-15 09:44 | XMS_ITS | Encounter Summary ---
Author Organization [facility] Address [address] [place] [address] Care Team Providers Care Sap Developer Name Role Phone Matias Bowling MD Primary Care Provider [phone] Encounter Details Date Type Department Care Team (Late st Contact Info) Description 05/27/2024 Lab Requisition [facility] - Main Lab [address] [place] [address] Matias Bowling MD 38 [facility] [address] [place], [address] Essential (primary) hypertension Social History Tobacco [...] mmol/L LAB CHEMISTRY METHOD 05/28/2024 10:13 AM [facility] CO2 28 21 - 32 mmol/L LAB CHEMISTRY METHOD 05/28/2024 10:13 AM [facility] Anion Gap 6 3 - 11 LAB CHEMISTRY METHOD 05/28/2024 10:13 AM [facility] Glucose 141(H) 70 - 100 mg/dL LAB CHEMISTRY METHOD 05/28/2024 10:13 AM [facility] BUN 13 5 - 25 mg/dL LAB CHEMISTRY METHOD 05/28/2024 10:13 AM [facility] Creatinine 1.21(H) 0.50 - 1.10 mg/dL LAB CHEMISTRY METHOD 05/28/2024 10:13 AM [facility] eGFR 49(L) >=60 mL/min/1. 73m2 LAB CHEMISTRY METHOD 05/28/2024 10:13 AM [facility] Comment:Calculation based on the Chronic Kidney Disease Epidemiology Collaboration (CKD-EPI) equation refit without adjustment for race. BUN/Creatinine Ratio 10.7 LAB CHEMISTRY METHOD 05/28/2024 10:13 AM [facility] Calcium 8.6 8.5 - 10.5 mg/dL LAB CHEMISTRY METHOD 05/28/2024 10:13 AM [facility] AST (SGOT) 12 10 - 42 unit/L LAB CHEMISTRY METHOD 05/28/2024 10:13 AM [facility] ALT (SGPT) 19 10 - 60 unit/L LAB CHEMISTRY METHOD 05/28/2024 10:13 AM [facility] Alkaline Phosphatase 147(H) 42 - 121 unit/L LAB CHEMISTRY METHOD 05/28/2024 10:13 AM [facility] Total Protein 6.3 6.0 - 8.0 g/dL LAB CHEMISTRY METHOD 05/28/2024 10:13 AM [facility] Albumin 3.1(L) 3.2 - 5.0 g/dL LAB CHEMISTRY METHOD 05/28/2024 10:13 AM EDT [facility] Total Bilirubin 0.2 0.0 - 1.4 mg/dL LAB CHEMISTRY METHOD 05/28/2024 10:13 AM [facility] Blood Venous blood specimen / Unknown Venipuncture / Unknown 05/28/2024 5:02 AM EDT 05/28/2024 9:04 AM EDT us Matias Bowling MD LAB BLOOD ORDERABLES Final Resul t [facility] [address] [place] [address], [place] [phone] * (ABNORMAL) Complete blood count (05/28/2024 5:02 AM EDT) WBC 10.3 4.8 - 10.8 K/mcL LAB HEMETOLOGY METHOD 05/28/2024 9:26 AM [facility] RBC 3.30(L) 3.80 - 4.80 M/mcL LAB HEMETOLOGY METHOD 05/28/2024 9:26 AM [facility] Hemoglobin 8.7(L) 11.5 - 16.0 g/dL LAB HEMETOLOGY METHOD 05/28/2024 9:26 AM [facility] Hematocrit 28.7(L) 35.0 - 47.0 % LAB HEMETOLOGY METHOD 05/28/2024 9:26 AM [facility] MCV 87.0 79.0 - 98.0 FL LAB HEMETOLOGY METHOD 05/28/2024 9:26 AM [facility] MCH 26.4(L) 27.0 - 32.0 pcg LAB HEMETOLOGY METHOD 05/28/2024 9:26 AM [facility] MCHC 30.3(L) 32.0 - [...] Resul t [facility] [address] [place] [address], documented in this encounter Visit Diagnoses Diagnosis Essential (primary) hypertension Unspecified essential hypertension documented in this encounter Additional Health Concerns Infection Onset Date Last Indicated Resolved Time C. difficile 05/29/2024 05/29/2024 06/22/2024 7:04 PM EDT C. difficile Rule-Out 05/30/2024 05/29/20242024 9:47 AM EDT documented as of this encounter Care Teams Sap Developer Relationship Specialty Start Date End Date Matias Bowling MD [address] [place] [phone] PCP - General Family Medicine 04/16/24 documented as of this encounter
--- OUTSIDE RECORDS SUMMARY | 2025-01-15 09:44 | XMS_ITS | Encounter Summary ---
Author Organization [facility] Address [id number] [place] [address] Care Team Providers Care Husbandry Technician Name Role Phone Matias Bowling MD Primary Care Provider [phone] Encounter Details Date Type Department Care Team (Late st Contact Info) Description 04/29/2024 Lab Requisition [facility] - Main Lab 299 [facility] [place] [address] Matias Bowling MD 38 [facility] 204 [facility] [address] Essential (primary) hypertension Social [...] documented as of this encounter Care Teams Husbandry Technician Relationship Specialty Start Date End Date Matias Bowling MD 38 [facility] 204 [place] [address] PCP - General Family Medicine 04/16/24 documented as of this encounter
--- OUTSIDE RECORDS SUMMARY | 2025-01-15 09:44 | XMS_ITS | Encounter Summary ---
Author Organization [facility] Address [address] [place] [address] Care Team Providers Care Lens Mold Setter Name Role Phone Matias Bowling MD Primary Care Provider [phone] Encounter Details Date Type Department Care Team (Late st Contact Info) Description 04/28/2024 Lab Requisition [facility] - Main Lab 299 [facility] [place] [address] Matias Bowling MD 38 [facility] 204 [facility] [address] Diarrhea, unspecified Social History Tobacco [...] documented as of this encounter Care Teams Lens Mold Setter Relationship Specialty Start Date End Date Matias Bowling MD 38 [facility] 204 [place] [address] PCP - General Family Medicine 04/16/24 documented as of this encounter
--- OUTSIDE RECORDS SUMMARY | 2025-01-15 09:44 | XMS_ITS | Encounter Summary ---
Author Organization [employer] Address [address] [place] [address] 7[address] [place] [address] Care Team Providers Care Drama Critic Name Role Phone Ethel Chase DO Primary Care Provider [phone] Vaishnavi Laird PharmD Unavailable [phone] Reason for Visit * Reason Onset Date Comments Appointment Request 03/02/2024 Encounter Details Date Type Department Care Team ([facility] st Contact Info) Description 03/02/[address] [facility] [address] [place] [address] Ethel Chase DO [address] [place] [address] Appointment Request Social History Tobacco Use Types [...] would like to reschedule. Please contact pt: [phone] (Kazakh) documented in this encounter Plan of Treatment Upcoming Encounters Date Type Department Care Team (Late st Contact Info) Description 01/27/2025 10:00 AM EST Medication Management [facility] [address] [place] [address] Vaishnavi Laird PharmD [address] [place] [address] 03/03/2025 9:00 AM EST Clinical Support [facility] [address] [place] [address] Suad Wilson, RN documented as of this [...] documented as of this encounter Care Teams Drama Critic Relationship Specialty Start Date End Date Ethel Chase DO [address] [place] [address] PCP - General Family Medicine 10/12/13 Vaishnavi Laird PharmD [address] [place] [address] Pharmacist Internal Medicine 02/07/23 [id number] 06/11/24 11/18/24 documented as of this encounter
--- OUTSIDE RECORDS SUMMARY | 2025-01-15 09:44 | XMS_ITS | Encounter Summary ---
Author Organization [employer] Address [address] [place] [address] 7[address] [place] [address] Care Team Providers Care Centrex Radio Operator Name Role Phone Ethel Chase Primary Care Provider Vaishnavi Laird PharmD Unavailable [phone] Encounter Details Date Type Department Care Team (Late Contact Info) Description 02/09/2022 Orders Only [facility] [address] [place] [address] Sadie Rivera, ANP [address] [place] [address] Social History Tobacco Use Types Packs/Day Years [...] Description 01/27/2025 10:00 AM EST Medication Management [address] [address] [place]ishnavi [place] [address] 03/03/2025 9:00 AM EST Clinical Support [address] [address] Suad Wilson RN documented as of this encounter Visit Diagnoses Not on filedocumented in this encounter Additional Health Concerns Assessment Noted Time PHQ-9 Depression Total Score: 0 02/08/20 22 10:43 AM EST documented as of this encounter Care Teams Centrex Radio Operator Relationship Specialty Start Date End [place] [address] PCP - General Family Medicine 10/12/13 Vaishnavi Laird PharmD [address] [place] [address] Pharmacist Internal Medicine 02/07/23 [id number] 06/11/24 11/18/24 documented as of this encounter
--- OUTSIDE RECORDS SUMMARY | 2025-01-15 09:44 | XMS_ITS | Encounter Summary ---
Author Organization [facility] Address [address] [place] [address] Care Team Providers Care Management Consultant Name Role Phone Matias Bowling MD Primary Care Provider [phone] Encounter Details Date Type Department Care Team (Late st Contact Info) Description 04/30/2024 Lab Requisition [facility] - Main Lab [address] [place] [address] Matias Bowling MD 38 [facility] 204 [place], [address] Essential (primary) hypertension Social History Tobacco [...] LAB CHEMISTRY METHOD 05/01/2024 12:26 PM EST [facility] Potassium 4.7 3.5 - 5.5 mmol/L LAB CHEMISTRY METHOD 05/01/2024 12:26 PM EST [facility] Chloride 110 96 - [...] Resul t [facility] [address] [place] [address], * (ABNORMAL) Complete blood count (05/01/2024 4:57 [...] LAB BLOOD ORDERABLES Final Resul t [facility] [address] [place] [address], documented in this encounter Visit Diagnoses Diagnosis Essential (primary) hypertension Unspecified essential hypertension documented in this encounter Additional Health Concerns Infection Onset Date Last Indicated Resolved Time Gastrointestinal Rule-Out 04/28/2024 04/27/2024 7:06 PM EDT C. difficile 05/29/2024 05/29/2024 06/22/2024 7:04 PM EDT C. difficile Rule-Out 05/30/2024 05/29/20242024 9:47 AM EDT documented as of this encounter Care Teams Management Consultant Relationship Specialty Start Date End Date Matias Bowling MD [address] [place] [phone] PCP - General Family Medicine 04/16/24 documented as of this encounter
--- OUTSIDE RECORDS SUMMARY | 2025-01-15 09:44 | XMS_ITS | Encounter Summary ---
Author Organization [facility] Address [address] [place] [address] Care Team Providers Care Car Sales Associate Name Role Phone Matias Bowling MD Primary Care Provider [phone] Encounter Details Date Type Department Care Team (Late st Contact Info) Description 04/29/2024 Lab Requisition [facility] - Main Lab [address] [place] [address] Matias Bowling MD 38 [facility] 204 [place], [address] Hyperlipidemia, unspecified; 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 [...] LAB CHEMISTRY METHOD 04/29/2024 2:49 PM EST [facility] Potassium 4.5 3.5 - 5.5 mmol/L LAB CHEMISTRY METHOD 04/29/2024 2:49 PM [facility] Chloride 111(H) 96 - 110 mmol/L LAB CHEMISTRY METHOD 04/29/2024 2:49 PM [facility] CO2 23 21 - 32 mmol/L LAB CHEMISTRY METHOD 04/29/2024 2:49 PM [facility] Anion Gap 8 3 - 11 LAB CHEMISTRY METHOD 04/29/2024 2:49 PM [facility] Glucose 118(H) 70 - 100 mg/dL LAB CHEMISTRY METHOD 04/29/2024 2:49 PM [facility] BUN 18 5 - 25 mg/dL LAB CHEMISTRY METHOD 04/29/2024 2:49 PM [facility] Creatinine 0.94 0.50 - 1.10 mg/dL LAB CHEMISTRY METHOD 04/29/2024 2:49 PM [facility] eGFR 66 >=60 mL/min/1. 73m2 LAB CHEMISTRY METHOD 04/29/2024 2:49 PM [facility] Comment:Calculation based on the Chronic Kidney Disease Epidemiology Collaboration (CKD-EPI) equation refit without adjustment for race. BUN/Creatinine Ratio 19.1 LAB CHEMISTRY METHOD 04/29/2024 2:49 PM [facility] Calcium 9.2 8.5 - 10.5 mg/dL LAB CHEMISTRY METHOD 04/29/2024 2:49 PM [facility] AST (SGOT) 21 10 - 42 unit/L LAB CHEMISTRY METHOD 04/29/2024 2:49 PM [facility] ALT (SGPT) 24 10 - 60 unit/L LAB CHEMISTRY METHOD 04/29/2024 2:49 PM [facility] Alkaline Phosphatase 170(H) 42 - 121 unit/L LAB CHEMISTRY METHOD 04/29/2024 2:49 PM [facility] Total Protein 6.9 6.0 - 8.0 g/dL LAB CHEMISTRY METHOD 04/29/2024 2:49 PM EST [facility] Albumin 3.2 3.2 - 5.0 g/dL LAB CHEMISTRY METHOD 04/29/2024 2:49 PM [facility] Total Bilirubin 0.3 0.0 - 1.4 mg/dL LAB CHEMISTRY METHOD 04/29/2024 2:49 PM [facility] Blood Venous blood specimen / Unknown Venipuncture / Unknown 04/29/2024 6:35 AM EST 04/29/2024 10:01 AM EST us Matias Bowling MD LAB BLOOD ORDERABLES Final Resul t [facility] [address] [place] [address], [place] [phone] * (ABNORMAL) Complete blood count (04/29/2024 6:35 AM EST) WBC 9.6 4.8 - 10.8 K/mcL LAB HEMETOLOGY METHOD 04/29/2024 11:28 AM [facility] RBC 3.70(L) 3.80 - 4.80 M/mcL LAB HEMETOLOGY METHOD 04/29/2024 11:28 AM [facility] Hemoglobin 9.9(L) 11.5 - 16.0 g/dL LAB HEMETOLOGY METHOD 04/29/2024 11:28 AM [facility] Hematocrit 32.0(L) 35.0 - 47.0 % LAB HEMETOLOGY METHOD 04/29/2024 11:28 AM [facility] MCV 87.0 79.0 - 98.0 FL LAB HEMETOLOGY METHOD 04/29/2024 11:28 AM [facility] MCH 26.9(L) 27.0 - 32.0 pcg LAB HEMETOLOGY METHOD 04/29/2024 11:28 AM [facility] MCHC 30.9(L) 32.0 - 37.0 g/dL LAB HEMETOLOGY METHOD 04/29/2024 11:28 AM EST [facility] RDW 14.6 11.0 - 15.0 % LAB HEMETOLOGY METHOD 04/29/2024 11:28 AM [facility] Platelets 358 130 - 400 K/mcL LAB HEMETOLOGY METHOD 04/29/2024 11:28 AM [facility] MPV 10.0 7.0 - 11.0 FL LAB HEMETOLOGY METHOD 04/29/2024 11:28 AM [facility] NRBC 0.0 <1.0 % LAB HEMETOLOGY METHOD 04/29/2024 11:28 AM [facility] NRBC Absolute 0.00 <0.10 K/mcL LAB HEMETOLOGY METHOD 04/29/2024 11:28 AM [facility] Blood Venous blood specimen / Unknown Venipuncture / Unknown 04/29/2024 6:35 AM EST 04/29/2024 10:01 AM EST us Matias Bowling MD LAB BLOOD ORDERABLES Final Resul t [facility] [address] [place] [address], documented in this encounter Visit Diagnoses Diagnosis Hyperlipidemia, unspecified 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 classified elsewhere (CMS/HCC V24, CMS/HCC V28) documented in this encounter Additional Health Concerns Infection Onset Date Last Indicated Resolved Time Gastrointestinal Rule-Out 04/28/2024 04/27/2024 7:06 PM EDT C. difficile 05/29/2024 05/29/2024 06/22/2024 7:04 PM EDT C. difficile Rule-Out 05/30/2024 05/29/20242024 9:47 AM EDT documented as of this encounter Care Teams Car Sales Associate Relationship Specialty Start Date End Date Matias Bowling MD [address] [place] [address] PCP - General Family Medicine 04/16/24 documented as of this encounter
--- OUTSIDE RECORDS SUMMARY | 2025-01-15 09:44 | XMS_ITS | Encounter Summary ---
Author Organization [employer] Address [address] [place] [address] 7t [place] [address] Care Team Providers Care Housekeeping Associate Name Role Phone Ethel Chase DO Primary Care Provider Vaishnavi Laird PharmD Unavailable [phone] Reason for Visit * Reason Comments Med Refill Encounter Details Date Type Department Care Team ([facility] st Contact Info) Description 02/07/[address] [facility] [address] [place] [address] Ethel Chase DO [address] [place] [address] Diverticular disease (Primary Dx) Social History Tobacco [...] Health Questionnaire-2 Score 0 01/25 10:43 AM Agnel Galvan MA * Over the past 2 [...] but did send cipro and metro to [facility] requested. * Telephone Encounter - Susan Guillaume RN - 02/09/2022 3:31 PM EST TC placed to pt [phone] scan showed mild diverticulitis. Pt [...] is requesting medications to be sent to [facility] on [facility] [employer] [facility] she cannot get to [facility] pharmacy before they close. RN will [...] scan results are back yet. RN checked [employer] system and results not yet available. CT was ordered STAT. RN called [facility] [place] who reports they do not have a shipping processor on site or Saturday and RN would have to call [place] [facility] at [phone] and speak to [employer] to request results to be read. RN called [phone] however phone rang continuously without an automated recording w/ options ora VM. RN returned call to [facility] to inform them no one answered at [place] [facility] and the phone just kept ringing. [facility] confirmed the number is correct and reports they will send a message to [place] [facility] to ask them to interpret the CT scan. RN will check before end of the day for interpretation report. * Telephone Encounter - Arcelia Wylie - 02/08/2022 2:07 PM EST Tc from [facility] [place] lab ordered be refaxed, automotive service writer refaxed to [phone] * Telephone Encounter - Ethel Chase DO - 02/07/2022 3:51 PM EST Rx already sent. documented in this encounter Plan of Treatment Upcoming Encounters Date Type Department Care Team (Late st Contact Info) Description 01/27/2025 10:00 AM EST Medication Management [address] [address] Vaishnavi Laird PharmD [address] [place] [address] 03/03/2025 9:00 AM EST Clinical Support [facility] [address] [place] [address] Suad Wilson RN documented as of this encounter Visit Diagnoses Diagnosis Diverticular disease- Primary Diverticulosis of colon (without mention of hemorrhage) documented in this encounter Additional Health Concerns Assessment Noted Time PHQ-9 Depression Total Score: 0 02/08/20 10:43 AM EST documented as of this encounter Care Teams Housekeeping Associate Relationship Specialty Start Date End Date Ethel Chase DO [address] [place] [address] PCP - General Family Medicine 10/12/13 Vaishnavi Laird, PharmD [address] [place] [address] Pharmacist Internal Medicine 02/07/23 [id number] 06/11/24 11/18/24 documented as of this encounter
== END 2025-01-15 09:51 | disposition home or self-care (01) ==
LOC: HO.HOS 09:21
PROVIDERS: Visit Provider Physician Assistant
DX: M97.12XA Periprosthetic fracture around internal prosthetic left knee joint, initial encounter (principal)
CPT/HCPCS: 99213

== ENCOUNTER → 2025-01-15 09:22 | Outpatient (BNV) | payer OTHER, SELFPAY | PROVIDERS: Visit Provider Radiology Diagnostic Radiology | DX: M25.562 Pain in left knee (principal) | CPT/HCPCS: 73562 ==

== ENCOUNTER 2025-02-04 | Outpatient (REF) | payer OTHER, SELFPAY ==
--- OUTSIDE RECORDS SUMMARY | 2025-03-18 12:28 | XMS_ITS | Data Portability ---
Author Organization [employer] [facility] Address [address] [place] [address] Care Team Providers Care Maori Liaison Adviser Name Role Phone Unavailable OTHER HIM CCA [...] Assessment and Plan as documented by the Academic Support Specialist. We discussed the diagnostic uncertainty of [...] e 2 % topical cream 2024 025 [facility], [address] [place] [address], [id number], 08:56:17 Patient TargetsNo targets recorded. Patient InstructionsNo instructions recorded. Reason for Referral None Reported. Medical Equipment None Reported. Allergies Allergen ID Allergen Name Allergen Category Reaction Reaction Severity Criticality Documentation Date Start Date Code Code System Note Provider Name and Address Organization Details Recorded Time 43787 morphine medicatio n Not available Not available Not available 09/03/2024 7052 RxNorm Not [facility] 10:35:22 72544 tramadol medicatio n Not available Not available Not available 09/03/2024 92120 RxNorm Not Available [facility] 10:35:22 31348 Iodinated contrast media (substanc e) medicatio n Not available Not available Not available 09/03/2024 06281 2004 SNOMED Not Available [facility] 10:35:22 54429 Non-stero idal anti-infl ammatory agent (substanc e) medicatio n Not available Not available Not available 09/03/2024 50457 5008 SNOMED Not Available [facility] 10:35:22 Medications Name Sig Start [...] Available No t Available [employer] [place] [address] [place] USE DIRECTED EVERY 8 HOURS active Not [...] Available No t Available [employer] Ger[place] [address] [place] USE DIRECTED TO TEST BLOOD SUGAR EVERY [...] Details Last Updated DateTime 5 14 /min 597069. 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 [employer] - DOS ON OR AFTER 2022 - DUAL ELIGIBLE - PRISON OPTIONS AND ONE CARE (MEDICARE REPLACEMENT/ADV ANTAGE - HMO) Trish Hunter [id number] Trish Hunter Notes Date Note Type Note [...] ...................... ...................... ...................... ...................... ...................... ...................... ......... Academic Support Specialist Note From Mukund Hunter: Patient alert [...] full sentences, extremities unremarkable no edema noted. [facility] [place] antifungal to patient s local pharmacy. Patient reports she l l be able to obtain that medication today. Patient advised to follow up with PCP today. Supportive care, red flags, and patient education discussed. Patient demonstrates understanding of care and plan. Patient given an opportunity to ask questions. ...................... ...................... ...................... ...................... ...................... ...................... ......... [facility] [place] Consulted: Leni Choi ...................... ...................... ...................... ...................... ...................... ...................... ......... Disposition: Fulfilled LENI CHOI MD [address] [facility],[address] [facility], [place], [address], ADITYA ZAPATA 09/03/2024 12:53:02 OBGyn Episode No OBEpisode recorded.
--- OUTSIDE RECORDS SUMMARY | 2025-03-18 12:28 | XMS_ITS | Encounter Summary ---
Author Organization [employer] Address [address] [place] [address] [address] [place] [address] Care Team Providers Care Bundle Sorter Name Role Phone Ethel Chase DO Primary Care Provider [phone] Vaishnavi Laird PharmD Unavailable [phone] Reason for Visit * Reason Onset Date Comments Nurse Triage 04/16/2023 Encounter Details Date Type Department Care Team ([facility] st Contact Info) Description 04/16/2023 Telephone [facility] [address] [place] [address] Ethel Chase DO [address] [place] [address] Nurse Triage Social History Tobacco Use Types [...] EST Triage call regarding message from [facility] see below. Pt answers call , [place] Customer Orders Clerk ID [id number], but, Pt is speaking citizen of [place] well. Pt reports only high BS was [...] if any further problem to come to [facility] for provider to see Pt . Pt [...] questions - You become [facility] has extreme high blood sugars: 355 Saturday Down to the 250 today Advises that her glucose monitor keeps beeping, [facility] Nurse advised that pt refused urgent prison visit but was advised to go to the urgent. Please contact pt [phone] South [place] Speaker * Telephone Encounter - Tramainehernan Pawel Grider - 04/16/2023 4:18 PM EST Tc from Amb[facility] reporting patient has extreme high blood sugars: 355 Saturday Down to the 250 today Advises that her glucose monitor keeps beeping, [facility] Nurse advised that pt refused urgent prison visit but was advised to go to the urgent. Please contact pt [phone] [place] Speaker documented in this encounter Plan of Treatment Upcoming Encounters Date Type Department Care Team (Late st Contact Info) Description 04/28/2025 9:30 AM EST Medication Management [address] [address] Vaishnavi Laird, PharmD [address] [place] [address] 06/01/2025 9:00 AM EDT Clinical Support [address] [address] Suad Wilson, MARY documented as of this encounter Goals Goal Patient Goal Type Associated Problems Recent Progress Patient-Stated? Author Hemoglobin A1c < 7 Result Component 7.3( 10:42 AM EST) No PuiaChristoferVaishnavi, PharmD Record your blood sugar as directed Result Component No PuiaChristoferVaishnavi, PharmD documented as of this encounter Visit Diagnoses Not on filedocumented in this encounter Additional Health Concerns Assessment Noted Time PHQ-9 Depression Total Score: 0 02/08/20 22 10:43 AM EST documented as of this encounter Care Teams Bundle Sorter Relationship Specialty Start Date End Date Ethel Chase DO [address] [place] [address] PCP - General Family Medicine 10/12/13 Vaishnavi Laird PharmD [address] [place] [address] Pharmacist Internal Medicine 02/07/23 [email or web address] 06/11/24 11/18/24 documented as of this encounter
--- OUTSIDE RECORDS SUMMARY | 2025-03-18 12:28 | XMS_ITS | Encounter Summary ---
Author Organization [facility] Address [address] [place] [address] [address] [place] [address] Care Team Providers Care Business Consultant Name Role Phone Ethel Chase DO Primary Care Provider [phone] Vaishnavi Laird PharmD Unavailable [phone] Reason for Visit * Reason Onset Date Comments Nurse Triage 09/14/2024 Encounter Details Date Type Department Care Team ([facility] st Contact Info) Description 09/14/2024 Telephone [facility] [address] [place] [address] Ethel Chase DO [address] [place] [address] Nurse Triage Social History Tobacco Use Types [...] PM EDT Triage call to Milena from [address] Milena wanted to report Pt BP'S have been higher. Ptis asymptomatic. BP today left arm was 148/96 and right arm 145/96. Pt is taking daily imdur 30mg as prescribed. Pt has a scheduled apt 09/17/24 to address high BP. Pt is also asking about referral toPT. Facility Engineer advised that this information would be forwarded [...] caller accepted this outcome. Contact Milena with [facility] at [phone] documented in this encounter Plan of Treatment Upcoming Encounters Date Type Department Care Team (Late st Contact Info) Description 04/28/2025 9:30 AM EST Medication Management [address] [address] PuiaChristoferVaishnavi, PharmD [address] [place] [id number] 06/01/2025 9:00 AM EDT Clinical Support [address] [address] Suad Wilson RN documented as of this encounter Goals Goal Patient Goal Type Associated Problems Recent Progress Patient-Stated? Author Hemoglobin A1c < 7 Result Component 7.3( 10:42 AM EST) No Puia, Vaishnavi, PharmD Record your blood sugar as directed Result Component No Puia, Vaishnavi, PharmD documented as of this encounter Visit Diagnoses Not on filedocumented in this encounter Additional Health Concerns Assessment Noted Time PHQ-9 Depression Total Score: 8 10/18/19 24 11:35 AM EDT documented as of this encounter Care Teams Business Consultant Relationship Specialty Start Date End Date Ethel Chase DO [address] [place] [id number] PCP - General Family Medicine 10/12/13 Puia, Vaishnavi, PharmD [address] [place] [id number] Pharmacist Internal Medicine 02/07/23 [id number] 06/11/24 11/18/24 documented as of this encounter
--- OUTSIDE RECORDS SUMMARY | 2025-03-18 12:28 | XMS_ITS | Clinical Summary ---
Author Organization [employer] Address [address] [place] [address] [address] [place] [address] Care Team Providers Care Lion Hunter Name Role Phone Ethel Chase Primary Care Provider Vaishnavi Laird PharmD Unavailable Allergies Active Allergy Reactions Criticality Noted Date [...] TWICE A DAY NEEDED FOR ANXEITY Active Ventolin HFA 108 (90 Base) MCG/ACT inhaler INHALE 2 PUFFS BY MOUTH EVERY 4 HOURS NEEDED FOR WHEEZING OR SHORTNESS OF BREATH 18 g 1 024 Active glucagon (Baqsimi Two Pack) 3 MG/DOSE nasal powderIndications: Type 2 diabetes mellitus without complication, without long-term current use of insulin (HCC) Administer 3 mg via 1 device into the nostril for hypoglycemia with loss of consciousness. If no response after 15 minutes administer an additional dose via 2nd device into other nostril. 2 each 1 Active glucose 4 g chewable tablet Chew 4 tablets (16 g) if needed for low blood sugar (BG < 70 mg/dL). 20 tablet 5 Active Diclofenac Sodium 1 % gel Apply 2 g topically if needed in the morning, at noon, in the evening, and at bedtime (pain). 150 g 3 Active Alcohol Swabs (Alcohol Prep) 70 % padsIndications:Po mabel controlled diabetes mellitus (HCC) USE DIRECTED BEFORE INSULIN INJECTION AND sensor CHANGE 100 each 11 02/06/20 1:37 PM EST 025 Active atorvastatin (Lipitor) 20 MG tablet TAKE 1 TABLET BY MOUTH AT BEDTIME 90 tablet 3 025 Active loratadine (Claritin) 10 MG tablet TAKE 1 TABLET BY MOUTH EVERY MORNING 90 tablet 3 025 Active isosorbide mononitrate ER (Imdur) 30 MG 24 hr tablet TAKE 1 TABLET BY MOUTH EVERY MORNING 90 tablet 3 01/28/20 25 11:55 AM EST 025 Active meclizine (Antivert) 25 MG tablet TAKE 1 TABLET BY MOUTH THREE TIMES DAILY IN THE MORNING, AT NOON, AND AT BEDTIME NEEDED FOR DIZZINESS 30 tablet 3 025 Active levothyroxine (Synthroid, Levoxyl) 112 MCG tablet TAKE 1 TABLET BY MOUTH EVERY MORNING BEFORE BREAKFAST 90 tablet 3 01/28/20 25 11:55 AM EST 025 Active aspirin (Aspirin Adult Low Dose) 81 MG EC tabletIndications: Type 2 diabetes mellitus without complication, with long-term current use of insulin ([facility]) Take 1 tablet (81 mg) by mouth in the evening. 90 tablet 3 03/01/19 1:06 PM EST 025 2025 Active Continuous Glucose Improvement Specialist (FreeStyle Gerard 3 Dana) deviceIndications: Type 2 diabetes mellitus without complication, with long-term current use of insulin ([facility]) 1 each Once per day. Use as directed for CGM 1 each 025 Active Continuous Glucose Sensor (FreeStyle Gerard 3 Plus Sensor) miscIndications:Ty pe 2 diabetes mellitus without complication, with long-term current use of insulin ([facility]) 1 each every 15 days. Apply 1 every 15 days as directed for CGM 2 each 03/11/19 10:20 AM EST 025 Active glucose blood (FreeStyle Precision Angel Test) test stripIndications:T ype 2 diabetes mellitus without complication, with long-term current use of insulin ([facility]) Use to test blood sugar 2 times daily in case of CGM failure or extremes of BG 500 each 025 2025 Active naloxone (Narcan) 4 mg/0.1 mL nasal sprayIndications:L hoa-term current use of opiate analgesic Administer 1 spray (4 mg) into affected nostril(s) if needed for opioid reversal. 2 each 2 Active Advair HFA 115-21 MCG/ACT inhaler INHALE 2 PUFFS BY MOUTH TWICE DAILY IN THE MORNING AND AT BEDTIME RINSE MOUTH AFTER USING. AND DO NOT SWALLOW 12 g 02/06/20 25 1:37 PM EST 025 Active pantoprazole (ProtoNix) 40 MG EC tabletIndications: Chronic gastroesophageal reflux disease Take 1 tablet (40 mg) by mouth in the morning. Do not crush, chew, or split. 90 tablet 1 03/01/19 1:06 PM EST 025 Active gabapentin (Neurontin) 600 MG tablet Take 1 tablet (600 mg) by mouth 2 times daily. 60 tablet 5 03/01/19 1:06 PM EST 025 Active lisinopril 2.5 MG tabletIndications: Essential hypertension TAKE 1 TABLET BY MOUTH EVERY MORNING 30 tablet 11 03/01/19 1:06 PM EST 025 Active Lancets (OneTouch Delica Plus [id number]) miscIndications:Ty pe 2 diabetes mellitus without complication, without long-term current use of insulin ([facility]) USE TO TEST BLOOD SUGAR TWICE DAILY 100 each 03/12/19 1:19 PM EST 025 Active Multiple Vitamins-Iron (Tab-A-Rito/Iron) tablet TAKE 1 TABLET BY MOUTH EVERY MORNING WITH FOOD 90 tablet 03/01/19 1:06 PM EST 025 Active baclofen (Lioresal) 10 MG tablet TAKE 1 TABLET BY MOUTH THREE TIMES DAILY IN THE MORNING, AT NOON, AND AT BEDTIME NEEDED FOR MUSCLE SPASMS 60 tablet 3 03/03/19 9:28 AM EST 025 Active furosemide (Lasix) 20 MG tablet TAKE 1 TABLET BY MOUTH ONCE DAILY NEEDED FOR SWELLING 14 tablet 026 Active oxyCODONE-acetamin ophen (Percocet) 7.5-325 MG tabletIndications: Other chronic pain Take 1 tablet by mouth every 6 (six) hours if needed for severe pain. Do not start before March 12, 2025. 112 tablet 03/12/19 1:19 PM EST 026 Active Calcium Carb-Cholecalcifer ol (Oyster Shell Calcium w/D) 500-5 MG-MCG tabletIndications: Osteopenia, unspecified location TAKE 1 TABLET BY MOUTH TWICE DAILY IN THE MORNING AND IN THE EVENING 180 tablet 026 Active cholecalciferol VITAMIN D (Vitamin D-3) 50 MCG (2000 UT) tablet TAKE 1 TABLET BY MOUTH EVERY EVENING 90 tablet 026 Active Lancet Devices (Lancing Device) miscIndications:Ty pe 2 diabetes mellitus without complication, with long-term current use of insulin ([facility]) Use to test blood sugar twice daily as directed 1 each 03/12/19 1:19 PM EST 026 Active Tirzepatide (Mounjaro) 15 MG/0.5ML solution auto-injectorIndic ations:Type 2 diabetes mellitus without complication, with long-term current use of insulin ([facility]) Inject 15 mg under the skin 1 (one) time per week. 2 mL 11 026 Active insulin degludec (Tresiba FlexTouch) 100 UNIT/ML injectionIndicatio ns:Type 2 diabetes mellitus without complication, with long-term current use of insulin ([facility]) Inject 24 units subQ once daily at bedtime. Decrease to 22 units, as directed, if any hypoBG (BG < 70 mg/dL). 15 mL 5 026 Active insulin pen needle 32G x 4 mm miscIndications:Ty pe 2 diabetes mellitus without complication, with long-term current use of insulin ([facility]) Use to inject insulin 1 times daily 100 each 3 026 Active insulin pen needle 32G x 4 mm miscIndications:Ty pe 2 diabetes mellitus without complication, without long-term current use of insulin ([facility]) Use to inject insulin 1 times daily 100 each 3 02/12/20 25 11:42 AM EST 024 2025 Discontinued(R eorder (will not trigger notification to Pharmacy)) baclofen (Lioresal) 10 MG tablet TAKE 1 TABLET BY MOUTH THREE TIMES DAILY IN THE MORNING, AT NOON, AND AT BEDTIME NEEDED FOR MUSCLE SPASMS 60 tablet 3 02/06/20 25 1:37 PM EST 025 2024 Discontinued Calcium Carb-Cholecalcifer ol (Oyster Shell Calcium w/D) 500-5 MG-MCG tabletIndications: Osteopenia, unspecified location TAKE 1 TABLET BY MOUTH TWICE DAILY IN THE MORNING AND IN THE EVENING 180 tablet 1 025 2025 Discontinued cholecalciferol VITAMIN D (Vitamin D-3) 50 MCG (1999) tablet TAKE 1 TABLET BY MOUTH EVERY EVENING 90 tablet 1 025 2025 Discontinued Tirzepatide (Mounjaro) 12.5 MG/0.5ML solution auto-injectorIndic ations:Type 2 diabetes mellitus without complication, with long-term current use of insulin ([facility]) Inject 12.5 mg under the skin 1 (one) time per week. 2 mL 11 03/03/19 26 9:28 AM EST 025 2025 Discontinued(A lternate therapy) insulin degludec (Tresiba FlexTouch) 100 UNIT/ML injectionIndicatio ns:Type 2 diabetes mellitus without complication, without long-term current use of insulin ([facility]) Inject 30 units subQ once daily at bedtime. Decrease to 26 units, as directed, if any hypoBG (BG < 70 mg/dL). 15 mL 5 03/01/19 26 1:06 PM EST 025 2025 Discontinued(R eorder (will not trigger notification to Pharmacy)) furosemide (Lasix) 20 MG tablet TAKE 1 TABLET BY MOUTH ONCE DAILY NEEDED FOR SWELLING 14 tablet 025 2025 Discontinued oxyCODONE-acetamin ophen (Percocet) 7.5-325 MG tabletIndications: Other chronic pain Take 1 tablet by mouth every 6 (six) hours if needed for severe pain. Do not start before February 12, 2025. 112 tablet 02/13/20 25 4:27 PM EST 025 2025 Discontinued(R eorder (will not trigger notification to Pharmacy)) Active Problems Problem Noted Date Diagnosed Date Stage 3 chronic kidney disease ([facility]) 025 Long-term current use of opiate analgesic 2024 [...] 4 weeks. Chronic gastroesophageal reflux disease 01/11/20 Status post right knee replacement 01/10/2015 Hyperlipidemia 01/10/2015 Mild persistent asthma 01/10/2015 Major depression, recurrent, chronic 01/10/2015 Type 2 diabetes mellitus 01/10/2015 Resolved Problems Problem Noted Date Diagnosed Date Resolved Date Poorly controlled diabetes mellitus 02/07/2023 07/15/2023 Osteoarthritis 02/07/2022 05/13/2022 History of total knee arthroplasty 01/10/2015 05/29/2022 Non-specific colitis 01/10/2015 022 Steatosis of liver 01/10/2015 3 Encounters Date Type Department Care Team Description 03/11/2025 Travel 03/11/2025 Refill [facility] [address] [place] [address] Ethel Chase DO Osteopenia, unspecified location 03/10/2025 Refill [facility] [address] [place] [address] Ethel Chase DO Other chronic pain 03/03/2025 9:00 AM EST Clinical Support [facility] [address] [place] [address] Suad Wilson RN Long-term current use of opiate analgesic (Primary Dx) 03/03/2025 Telephone [facility] [address] [place] [address] Suad Wilson RN BPI Scoring 03/03/2025 Travel 03/01/2025 Orders Only GENERIC EXTERNAL DATA DEPARTMENT Provider, Generic External Data 03/01/2025 Refill [facility] [address] [place], [place] [address] Ethel Chase, DO 02/21/2025 Telephone [facility] [address] [place], [place] [address] Ethel Chase, DO Results 02/17/2025 Refill [facility] [address] [place], [place] [address] Ethel Chase, DO 02/11/2025 Refill [facility] [address] [place], [place] [address] Ethel Chase, DO 02/10/2025 Refill [facility] [address] [place], [place] [address] Ethel Chase, Other chronic pain 02/10/2025 Refill [facility] [address] [place] [address] Eun Ray MD 02/09/2025 Travel 02/06/2025 Refill [facility] [address] [place] [address] Gail Jc MD Essential hypertension 02/02/2025 [facility]phone [facility] [address] [facility] [place] [address] Ethel Chase, DO Results 01/28/2025 Refill [facility] [address] [place] [address] Ethel Chase, 01/13/2025 Refill [facility] [address] [place], [place] [address] Ethel Chase, Other chronic pain 01/11/2025 Refill [facility] [address] [facility] [place] [address] Ethel Chase, 12/28/2024 Refill [facility] [address] [facility] [place] [address] Ethel Chase DO 12/28/2024 Travel 12/16/2024 9:15 AM EDT Office Visit [facility] [address] [place] [address] Ethel Chase DO Type 2 diabetes mellitus [...] for malignant neoplasm of breast 12/16/2024 Telephone [facility] [address] [place] [address] Ethel Chase DO Durable Medical Equipment (DME prescription Commode and Shower Chair([facility] SCO)) 12/16/2024 Refill [facility] [address] [place] [address] Ethel Chase DO Other chronic pain 12/16/2024 Travel from Last 3 Months Immunizations Immunization [...] Description 04/28/2025 9:30 AM EST Medication Management [facility] [address] [place] [phone] Vaishnavi Laird, PharmD [address] [place] [address] 06/01/2025 9:00 AM EDT Clinical Support [address] [address] Suad Wilson, RN Health Maintenance Due Date Last Done Comments CT Colonography 1955 FIT DNA/Cologuard 1955 FIT 1955 FOBT 1955 Sigmoidoscopy 1955 Diabetes: Foot Exam 12/29/1965 Eye Exam 12/29/1965 Alcohol/Substance Use Screening 1967 Hepatitis A Vaccines (1 of 2 - Risk 2-dose series) 12/29/1974 SDOH Screening 06/08/2025 06/08/2024 Diabetes: Hemoglobin A1C 06/09/2025 026, 12/16/2024, 10/08/2024, Additional history exists COVID-19 Vaccine ( season) 2025 12/16/2024, 12/26/2023, 01/01/2023, Additional history exists Depression Monitoring 06/16/2025 12/16/2024, 025 Lipid Panel 06/30/2025 06/30/2024, 10/26, 08/24/2022, Additional history exists Tobacco Screening 12/16/2025 12/16/2024 Mammogram 02/04/2026 02/04/2025, 07/26, 07/03/2022, Additional history exists Diabetes: Urine Protein Screening 03/01/2026 03/01/2025, 10/16/2024, 03/13/2023, Additional history exists Pneumococcal Vaccine: 50+ Years [...] Hemoglobin A1c < 7 Result Component 7.3( 6 10:42 AM EST) No Puia, Vaishnavi, PharmD Record your blood sugar as directed Result Component No Puia, Vaishanvi, PharmD Help patients manage their type 2 [...] Plan Patient has chronic kidney disease No PuiaChristoferVaishnavi, PharmD Patient has chronic kidney disease Care Plan Patient has chronic kidney disease No Vaishnavi Laird PharmD Weekly blood pressure task Care Plan Weekly blood pressure task No Juan RuiAlyson roque Weekly blood pressure task Care Plan Weekly blood pressure task No Alyson Vásquez Patient has chronic kidney disease Care Plan Patient has chronic kidney disease No Juan RuiAlyson roque Patient has chronic kidney disease Care Plan Patient has chronic kidney disease No Juan RuiAlyson roque Weekly blood pressure task Care Plan Weekly blood pressure task No Susan Guillaume RN Weekly blood pressure task Care Plan Weekly blood pressure task No Susan Guillaume RN Patient has chronic kidney disease Care Plan Patient has chronic kidney disease No Susan Guillaume RN Patient has chronic kidney disease Care Plan Patient has chronic kidney disease No Susan Guillaume RN Weekly blood pressure task Care Plan Weekly blood pressure task No Hernandez Rosemary, FIBER TECHNOLOGIST Weekly blood pressure task Care Plan Weekly blood pressure task No Hernandez Rosemary, FIBER TECHNOLOGIST Patient has chronic kidney disease Care Plan Patient has chronic kidney disease No Hernandez Rosemary, FIBER TECHNOLOGIST Patient has chronic kidney disease Care Plan Patient has chronic kidney disease No Hernandez Rosemary, FIBER TECHNOLOGIST Weekly blood pressure task Care Plan Weekly blood pressure task No Suad Wilson RN Weekly blood pressure task Care Plan Weekly blood pressure task No Suad Wilson, MARY Patient has chronic kidney disease Care Plan Patient has chronic kidney disease No Suad Wilson, MAYR Patient has chronic kidney disease Care Plan Patient has chronic kidney disease No Suad Wilson, RN Weekly blood pressure task Care Plan Weekly blood pressure task No Ethel Chase DO Weekly blood pressure task Care Plan Weekly blood pressure task No Ethel Chase DO Patient has chronic kidney disease Care Plan Patient has chronic kidney disease No Ethel Chase DO Patient has chronic kidney disease Care Plan Patient has chronic kidney disease No Ethel Chase DO Weekly blood pressure task Care Plan Weekly blood pressure task No Sugar Martell Weekly blood pressure task Care Plan Weekly blood pressure task No Sugar Martell Patient has chronic kidney disease Care Plan Patient has chronic kidney disease No Sugar Martell Patient has chronic kidney disease Care Plan Patient has chronic kidney disease No Sugar Martell Weekly blood pressure task Care Plan Weekly blood pressure task No Suad Wilson RN Weekly blood pressure task Care Plan Weekly blood pressure task No Suad Wilson RN Patient has chronic kidney disease Care Plan Patient has chronic kidney disease No Suad Wilson RN Patient has chronic kidney disease Care Plan Patient has chronic kidney disease No Suad Wilson RN Weekly blood pressure task Care Plan Weekly blood pressure task No Suad Wilson RN Weekly blood pressure task Care Plan Weekly blood pressure task No Suad Wilson RN Patient has chronic kidney disease Care Plan Patient has chronic kidney disease No Suad Wilson RN Patient has chronic kidney disease Care Plan Patient has chronic kidney disease No Suad Wilson RN Weekly blood pressure task Care Plan Weekly blood pressure task No Alyson Vásquez Weekly blood pressure task Care Plan Weekly blood pressure task No Alyson Vásquez Patient has chronic kidney disease Care Plan Patient has chronic kidney disease No Juan RuiAlyson rouqe Patient has chronic kidney disease Care Plan Patient has chronic kidney disease No Alyson Vásquez Weekly blood pressure task Care Plan Weekly blood pressure task No PuiaChristoferVaishnavi, PharmD Weekly blood pressure task Care Plan Weekly blood pressure task No Puia, Vaishnavi, PharmD Patient has chronic kidney disease Care Plan Patient has chronic kidney disease No Puia, Vaishnavi, PharmD Patient has chronic kidney disease Care Plan Patient has chronic kidney disease No Puia, Vaishnavi, PharmD Procedures Procedure Name Priority Date/Time Associated Diagnosis Comments POCT GLYCATED HEMOGLOBIN, TOTAL Routine 03/11/2025 10:42 AM EST Type 2 diabetes mellitus without complication, with long-term current use of insulin (HCC) POCT LENCHO-14 URINE DRUG SCREEN Routine 03/03/2025 9:09 AM EST Long-term current use of opiate analgesic BASIC METABOLIC PANEL Routine 03/01/2025 12:31 PM EST CBC Routine 03/01/2025 12:31 PM EST URINE PROTEIN, TOTAL, RANDOM (W/O CREATININE) Routine 03/01/2025 12:25 PM EST CREATININE, RANDOM URINE Routine 03/01/2025 12:25 PM EST URINALYSIS WITH REFLEX TO MICROSCOPIC Routine 03/01/2025 12:25 PM EST BI MAMMOGRAM SCREENING TOMOSYNTHESIS BILATERAL Routine 02/04/2025 12:40 PM EST Encounter for screening mammogram for malignant neoplasm of breast POLYSOMNOGRAM Routine 01/06/2025 Sleep-disordered breathing POCT GLYCATED HEMOGLOBIN, TOTAL Routine 12/16/2024 9:14 AM EDT Type 2 diabetes mellitus without complication, with long-term current use of insulin (HCC) POCT GLUCOSE (CPT-50477) Routine 12/16/2024 9:14 AM EDT Type 2 diabetes mellitus without complication, with long-term current use of insulin (HCC) LIPID PANEL, STANDARD Routine 06/30/2024 10:10 AM [...] Maintenance Results * (ABNORMAL) POCT Hgb A1c (03/11/2025 10:42 AM EST) Only the most recent of2 resultswithin the time period is included. Hemoglobin A1C 7.3(A) 4.0 - 5.7 % Blood 03/11/2025 10:4 2 AM EST Ethel Salvatore CORBIN POINT OF CARE TEST ENTER/MARGARITA T ORDERABLES Final Result * (ABNORMAL) POCT LENCHO-14 Urine Drug Screen (03/03/2025 9:09 AM EST) Pathologist [facility] Amphetamine Screen, Urine Negative Negative Barbiturate Screen, Urine Negative Negative Buprenophine Screen, Urine Negative Negative Benzodiazepines Screen, Urine Positive(A) Negative Comment:Lorazepam from outsi de provider Cocaine Screen, Urine Negative Negative Fentanyl, Urine Negative Negative MDMA Urine Negative Negative ng/mL Methamphetamine Screen Urine Negative Negative Opiate Screen, Urine Negative Negative Methadone Screen, Urine Negative Negative Oxycodone Screen, Urine Positive(A) Negative Comment:ENLISTED ADVISOR pt on Percocet Phencyclidine (PCP), Urine Negative Negative TCA, Urine Negative Negative THC Negative Negative Propoxyphene, Urine Negative Negative Urine Urine specimen obtained by clean catch procedure / Unknown 03/03/2025 9:09 AM EST Narrative Suad Wilson RN - 03/03/2025 9:09 AM EST UTOX cup Lot#[id number] Exp. 09/01/2026 Internal Pass Control Ethel Chase DO POINT OF CARE TEST ENTER/MARGARITA T ORDERABLES Final Result * (ABNORMAL) CBC (03/01/2025 12:31 PM EST) [facility] White Blood Count 9.8 4.8 - 10.8 X10*3/uL [facility] Red Blood Count 4.22 4.20 - 5.50 X10*6/uL [facility] Hemoglobin 10.7(L) 12.0 - 16.0 g/dl [facility] Hematocrit 35.2(L) 37.0 - 47.0 % [facility] Mean Corpuscular Volume 83.4 80.0 - 98.0 fL [facility] Mean Corpuscular Hemoglobin 25.4(L) 27.0 - 33.0 pg [facility] Mean Corpuscular HGB Conc 30.4(L) 31.0 - 35.0 g/dl [facility] Red Cell Distribution Width 15.6 11.0 - 16.0 % [facility] Platelet Count 293 160 - 400 X10*3/uL [facility] Mean Platelet Volume 9.3(L) 9.4 - 12.3 fL [facility] NRBC Pct Auto 0.0 0.0 - 0.2 /100WBC [facility] NRBC Abs Auto 0.000 0.0 - 0.012 X10*3/uL [facility] 03/01/2025 12:3 1 PM EST 03/01/2025 12:31 PM EST us Generic External Data Provider LAB BLOOD ORDERAB LES Final Result Performing Organization Address City/State/[facility] Co de Phone Number [facility] [address] [place] [phone] * (ABNORMAL) Basic Metabolic Panel (03/01/2025 12:31 PM EST) Sodium 138 135 - 145 mmol/L [facility] Potassium 4.5 3.3 - 5.1 mmol/L [facility] Chloride 102 96 - 108 mmol/L [facility] Carbon Dioxide 29 22 - 29 mmol/L [facility] Anion Gap 12 12 - 20 [facility] Urea Nitrogen (BUN) 11 9 - 16 mg/dL [facility] Creatinine, Serum 1.11 0.5 - 1.4 mg/dL [facility] Estimated Glomerular Filt Rate 49 [facility] Comment:Chronic Kidney Disea se: Estimated GFR < 60 mL/min/[id number] Kidney Disease: Estimated GFR < 15 mL/min/1.73m2 Glucose 230(H) 60 - 115 mg/dL [facility] Calcium 9.5 8.4 - 10.2 mg/dL [facility] 03/01/2025 12:3 1 PM EST 03/01/2025 12:31 PM EST us Generic External Data Provider LAB BLOOD ORDERAB LES Final Result Performing Organization Address [facility] Co de Phone Number [facility] [address] [place] [phone] * Urinalysis with Reflex to Microscopic (03/01/2025 12:25 PM EST) Color Urine Yellow [facility] Appearance Urine Hazy [facility] PH 6.0 5.0 - 9.0 [facility] Glucose Urine UA Negative Negative mg/dL [facility] Urine Blood Negative Negative [facility] Specific [place] - Urine 1.020 1.005 - 1.025 [facility] Urine Protein Negative Neg-Trace mg/dL [facility] Urine Ketones Negative Negative mg/dL [facility] Nitrite Urine Negative Negative [facility] Leukocyte Esterase Urine Negative Negative [facility] 03/01/2025 12:2 5 PM EST 03/01/2025 12:38 PM EST us Generic External Data Provider LAB URINE ORDERAB LES Final Result Performing Organization Address [facility] Co de Phone Number [facility] [address] [place] [phone] * Urine Protein, Total, Random without Creatinine (03/01/2025 12:25 PM EST) Protein, Total, Random Urine <7 <12 mg/dL [facility] 03/01/2025 12:2 5 PM EST 03/01/2025 12:38 PM EST us Generic External Data Provider LAB URINE ORDERAB LES Final Result Performing Organization Address [facility] Co de Phone Number [facility] [address] [place] [phone] * Creatinine, Random Urine (03/01/2025 12:25 PM EST) Creatinine, Urine 125.24 mg/dL [facility] 03/01/2025 12:2 5 PM EST 03/01/2025 12:38 PM EST us Generic External Data Provider LAB URINE ORDERAB LES Final Result [facility] [address] [place] [phone] * BI Mammogram Screening Tomosynthesis Bilateral (02/04/2025 12:40 PM EST) Anatomical Region Laterality Modality Breast Bilateral Mammography 02/04/2025 12:4 0 PM EST Narrative 02/04/2025 8:04 PM EST [facility] [address] [place] [address] Mammography Report Signed Patient: Trish Cameron MR#: [id number] : 1955 Acct:[id number] Age/Sex: 69 / F ADM Date: 02/04/25 Loc: HO.MAMMO Attending Dr: Ethel Chase DO Ordering Physician: Ethel Chase DO Results: 1N egative Date of Service: 02/04/25 Follow Up: 1 Year From [facility] Mammogram Procedure(s): MM tomosynthesis screening BI Accession Number(s): [id number] cc: Ethel Chase DO Reason For Exam: [...] by: Tyler Gay MD 02/04/2025 08:02 PM [facility] [facility] [place] [place] Dictated By: Tyler Gay MD Signed By: <Electronically signed by Tyler Gay MD in OV> 02/04/252001 DD/ 1240 TD/TT: 02/04/25 1304 Take Away Attendant: Procedure Note Donotuseinterpreter, Image - 02/04/2025 [facility] [address] [place] [address] Mammography Report Signed Patient: Trish Cameron [facility]#: [id number] : [id number]:[id number] Age/Sex: 69 / FADM Date: 02/04/25 Loc: HO.MAMMO Attending Dr: Ethel Chase DO Ordering Physician: Ethel Chase DORkaryults: 1N egative Date of Service: 02/04/25Follow Up: 1 Year From Orig ina Mammogram Procedure(s): MM tomosynthesis screening BI Accession Number(s): [id number] cc: Ethel Chase DO Reason For Exam: [...] by: Tyler Gay MD 02/04/2025 08:02 PM [facility] [place] [place] Dictated By: Tyler Gay MD Signed By: <Electronically signed by Tyler Gay MD in OV> 02/04/252001 DD/ 1240 TD/TT: 02/04/25 1304 Take Away Attendant: Ethel Chase DO IMG BI PROCEDURES Edited Res ult - Final * Polysomnography (01/06/2025) Ethel Chase DO SLEEP CENTER ORDERABLES Brittny l Result * (ABNORMAL) POCT Glucose (12/16/2024 9:14 AM EDT) Glucose Blood, POC 290(A) 60 - 200 mg/dL QC Media Lot # [id number] Lot# Expiration Date [id number] Blood Capillary blood specimen / Unknown 12/16/2024 9:14 AM EDT Ethel Chase DO POINT OF CARE TEST ENTER/MARGARITA T ORDERABLES Final Result * Lipid Panel, Standard (06/30/2024 10:10 AM EDT) Triglycerides 126 <150 mg/dL [facility] Comment:Desirable Triglyceri de: less than 150 mg/dLBorderline High Triglyceride 150-199 mg/dLHigh Triglyceride: 200-499 mg/dLVery High Triglyceride: greater than or equal to 5OO mg/dL Cholesterol 113 <200 mg/dL [facility] Comment:Desirable Cholestero l: less than 200 mg/dLBorderline High Cholesterol: 200-239 mg/dLHigh Cholesterol: greater than 239 mg/dL LDL Cholesterol Calculated 46 <100 mg/dL [facility] Comment:Desirable LDL: less than 100 mg/dLNear Optimal/Above Optimal LDL: 110- 129 mg/dLBorderline High LDL: 130-159 mg/dLHigh LDL: 160-189 mg/dLVery High LDL: greater than or equal to 190 mg/dL HDL Cholesterol 42 >40 mg/dL [facility] Comment:Desirable HDL: great er than 40 mg/dL Note: This HDL assay may give artificially low results in patients with liver disease. Blood Venous blood specimen / Unknown 06/30/2024 10:10 AM EDT 06/30/2024 11:19 AM EDT Ethel Chase DO LAB BLOOD ORDERABLES Final R esult Performing Organization Address [facility]/ZIP Co de Phone Number [facility] [address] [place] [address] [phone] * HEPATITIS C ANTIBODY RFLX (10/31/2019 9:40 AM EDT) Pathologist [facility] [place] HEPATITIS C ANTIBODY NONREACTIVE NONREACTIVE [facility] Comment: Antibodies to HCV not detected; does not exclude early acute HCV infection. 10/31/2019 9:40 AM EDT Ethel Chase DO HISTORICAL/NON ORDERABLE LAB S Final Result Performing Organization Address [facility]/ZIP Co de Phone Number [facility] [address] [place] [address], * Colonoscopy (03/03/2019) Pathologist [facility] [place] Colonoscopy follow up in 5 years Historical [...] 02/02/2025 Patient has chronic kidney disease 02/02/2025 Weekly blood pressure task 02/08/2025 Weekly blood pressure task 02/08/2025 Patient has chronic kidney disease 02/08/2025 Patient has chronic kidney disease 02/08/2025 Weekly blood pressure task 02/10/2025 Weekly blood pressure task 02/10/2025 Patient has chronic kidney disease 02/10/2025 Patient has chronic kidney disease 02/10/2025 Weekly blood pressure task 02/21/2025 Weekly blood pressure task 02/21/2025 Patient has chronic kidney disease 02/21/2025 Patient has chronic kidney disease 02/21/2025 Weekly blood pressure task 02/22/2025 Weekly blood pressure task 02/22/2025 Patient has chronic kidney disease 02/22/2025 Patient has chronic kidney disease 02/22/2025 Weekly blood pressure task 02/23/2025 Weekly blood pressure task 02/23/2025 Patient has chronic kidney disease 02/23/2025 Patient has chronic kidney disease 02/23/2025 Weekly blood pressure task 03/03/2025 Weekly blood pressure task 03/03/2025 Patient has chronic kidney disease 03/03/2025 Patient has chronic kidney disease 03/03/2025 Weekly blood pressure task 03/10/2025 Weekly blood pressure task 03/10/2025 Patient has chronic kidney disease 03/10/2025 Patient has chronic kidney disease 03/10/2025 Weekly blood pressure task 03/11/2025 Weekly blood pressure task 03/11/2025 Patient has chronic kidney disease 03/11/2025 Patient has chronic kidney disease 03/11/2025 Insurance [facility] [employer] (O D-SNP) JOSÉ MIGUEL HERRING [id number] Care Teams Lion Hunter Relationship Specialty Start Date End Date Ethel Chase DO [address] [place] [address] PCP - General Family Medicine 10/12/13 Vaishnavi Laird PharmD [address] [place], [place] Pharmacist Internal Medicine 02/07/23
--- OUTSIDE RECORDS SUMMARY | 2025-03-18 12:28 | XMS_ITS | Encounter Summary ---
Author Organization [employer] Address [address] [place] [address] 7[address] [place] [address] Care Team Providers Care Substance Abuse Clinician Name Role Phone Ethel Chase DO Primary Care Provider Vaishnavi Laird PharmD Unavailable [phone] Reason for Visit * Reason Comments Med Refill Encounter Details Date Type Department Care Team ([facility] st Contact Info) Description 06/07/[address] [facility] MED[facility]INE [address] [place] [address] Ethel Chase DO [address] [place] [address] Other chronic pain Social History Tobacco Use [...] Description 04/28/2025 9:30 AM EST Medication Management [address] [address] Vaishnavi Laird PharmD [address] [place] [address] 06/01/2025 9:00 AM EDT Clinical Support [address] [address] Suad Wilson, MARY documented as of this encounter Visit Diagnoses Diagnosis Other chronic pain documented in this encounter Additional Health Concerns Assessment Noted Time PHQ-9 Depression Total Score: 0 02/08/20 22 10:43 AM EST documented as of this encounter Care Teams Substance Abuse Clinician Relationship Specialty Start Date End [place] [address] PCP - General Family Medicine 10/12/13 Vaishnavi Laird PharmD [address] [place] [address] Pharmacist Internal Medicine 02/07/23 [id number] 06/11/24 11/18/24 documented as of this encounter
--- OUTSIDE RECORDS SUMMARY | 2025-03-18 12:28 | XMS_ITS | Encounter Summary ---
Author Organization [employer] Address [address] [place] [address] 7t [place] [address] Care Team Providers Care President Financial Institution Name Role Phone Ethel Chase Primary Care Provider PuVaishnavi thorpe PharmD Unavailable [phone] Reason for Visit * Reason Comments Med Refill Encounter Details Date Type Department Care Team (Late st Contact Info) Description 08/10/2022 Refill [facility] [address] [place] [address] [facility] [address] [place] [address] Social History Tobacco Use Types Packs/Day Years [...] Description 04/28/2025 9:30 AM EST Medication Management [facility] [address] [place] [address] Puia, Vaishnavi, PharmD [address] [place] [address] 06/01/2025 9:00 AM EDT Clinical Support [facility] [address] [place] [address] Suad Wilson, RN documented as of this encounter Visit Diagnoses Not on filedocumented in this encounter Additional Health Concerns Assessment Noted Time PHQ-9 Depression Total Score: 0 02/08/20 22 10:43 AM EST documented as of this encounter Care Teams President Financial Institution Relationship Specialty Start Date End Date Ethel Chase DO [address] [place] [address] PCP - General Family Medicine 10/12/13 Vaishnavi Laird PharmD [address] [place] [address] Pharmacist Internal Medicine 02/07/23 [id number] 06/11/24 11/18/24 documented as of this encounter
--- OUTSIDE RECORDS SUMMARY | 2025-03-18 12:28 | XMS_ITS | Encounter Summary ---
Author Organization [employer] Address [address] [place] [address] 7t [place] [address] Care Team Providers Care Record Librarian Name Role Phone Ethel Chase DO Primary Care Provider PuVaishnavi thorpe PharmD Unavailable [phone] Reason for Visit * Reason Comments Med Refill Encounter Details Date Type Department Care Team ([facility] Contact Info) Description 10/25/2022 Refill [facility] [address] [place] [address] Eun Ray MD [address] [place] [address] Other chronic pain Social History Tobacco Use [...] Upcoming Encounters Date Type Department Care Team ([facility] Contact Info) Description 04/28/2025 9:30 AM EST Medication Management [facility] MED[facility]INE [address] [place] [address] Puia, Vaishnavi, PharmD [address] [place] [address] 06/01/2025 9:00 AM EDT Clinical Support [facility] [address] [place] [address] Suad Wilson, MARY documented as of this encounter Visit Diagnoses Diagnosis Other chronic pain documented in this encounter Additional Health Concerns Assessment Noted Time PHQ-9 Depression Total Score: 0 02/08/20 10:43 AM EST documented as of this encounter Care Teams Record Librarian Relationship Specialty Start Date End Date [place] [address] PCP - General Family Medicine 10/12/13 Vaishnavi Laird PharmD [address] [place] [address] Pharmacist Internal Medicine 02/07/23 [id number] 06/11/24 11/18/24 documented as of this encounter
--- OUTSIDE RECORDS SUMMARY | 2025-03-18 12:28 | XMS_ITS | Encounter Summary ---
Author Organization [employer] Address [address] [place] [address] 7t [place] [address] Care Team Providers Care Dosimetrist Name Role Phone Ethel Chase DO Primary Care Provider [phone] Vaishnavi Laird PharmD Unavailable Reason for Visit * Reason Comments Med Refill Encounter Details Date Type Department Care Team ([facility] st Contact Info) Description 03/23/[address] [facility] MEDICINE [address] [place] [address] Ethel Chase DO [address] [place] [address] Other chronic pain Social History Tobacco Use [...] Description 04/28/2025 9:30 AM EST Medication Management [address] [address] Puia, Vaishnavi, PharmD [address] [place] [address] 06/01/2025 9:00 AM EDT Clinical Support [address] [address] Suad Wilson, MARY documented as of this [...] documented as of this encounter Care Teams Dosimetrist Relationship Specialty Start Date End Date Ethel Chase DO [address] [place] [address] PCP - General Family Medicine 10/12/13 Vaishnavi Laird, Zana [address] [place] [address] Pharmacist Internal Medicine 02/07/23 [id number] 06/11/24 11/18/24 documented as of this encounter
--- OUTSIDE RECORDS SUMMARY | 2025-03-18 12:28 | XMS_ITS | Encounter Summary ---
Author Organization [facility] Address [id number] [place] [address] Care Team Providers Care Kettle Loader Name Role Phone Matias Bowling MD Primary Care Provider [phone] Encounter Details Date Type Department Care Team (Late st Contact Info) Description 06/10/2024 Lab Requisition [facility] [address] [facility] [place] [address] Matias Bowling MD 38 [facility] 204 [facility] [place] [address] Essential (primary) [...] as of this encounter Care Teams Kettle Loader Relationship Specialty Start Date End Date Matias Bowling MD 38 [facility] [address] [place] [address] PCP - General Family Medicine 04/16/24 documented as of this encounter
--- OUTSIDE RECORDS SUMMARY | 2025-03-18 12:28 | XMS_ITS | Encounter Summary ---
Author Organization [employer] Address [address] [place] [address] 7[address] [place] [address] Care Team Providers Care Operations Professional Name Role Phone Ethel Chase DO Primary Care Provider [phone] Vaishnavi Laird PharmD Unavailable [phone] Reason for Visit * Reason Comments Med Refill Encounter Details Date Type Department Care Team ([facility] st Contact Info) Description 11/14/2024 Refill [facility] [address] [place] [address] Ethel Chase DO [address] [place] [address] Social History Tobacco Use Types Packs/Day Years [...] Description 04/28/2025 9:30 AM EST Medication Management [address] [address] Puia, Vaishnavi, PharmD [address] [place] [address] 06/01/2025 9:00 AM EDT Clinical Support [address] [address] Suad Wilson RN documented as of this [...] documented as of this encounter Care Teams Operations Professional Relationship Specialty Start Date End Date Ethel Chase DO [address] [place] [address] PCP - General Family Medicine 10/12/13 Vaishnavi Laird, BrianD [address] [place] [address] Pharmacist Internal Medicine 02/07/23 [id number] 06/11/24 11/18/24 documented as of this encounter
--- OUTSIDE RECORDS SUMMARY | 2025-03-18 12:28 | XMS_ITS | Encounter Summary ---
Author Organization [employer] Address [address] [place] [address] 7t [place] [address] Care Team Providers Care Sous Chef Kitchen Manager Name Role Phone Ethel Chase DO Primary Care Provider [phone] Vaishnavi Laird PharmD Unavailable [phone] Reason for Visit * Reason Onset Date Comments Hospital Follow-up 06/08/2024 Encounter Details Date Type Department Care Team (Late st Contact Info) Description 06/08/2024 Telephone [facility] MEDICINE [address] [place] [address] Ethel Chase DO [address] [place] [address] Hospital Follow-up Social History Tobacco Use Types [...] from pt requesting a HDF appt. Hospital: [facility] and [facility] Date of admission: 04/10 to [facility] and 04/15 admitted into [facility] Discharge date: 06/04/24 Diagnosed: Left leg fracture post simpson *Send message to [place] Clinical Care Coordinators Contact pt at [phone] documented in this encounter Plan of Treatment Upcoming Encounters Date Type Department Care Team ([facility] st Contact Info) Description 04/28/2025 9:30 AM EST Medication Management [facility] [address] [place] [address] Vaishnavi Laird, PharmD [address] [place] [address] 06/01/2025 9:00 AM EDT Clinical Support [facility] [address] [place] [address] Suad Wilson, RN documented as of this encounter Goals Goal Patient Goal Type Associated Problems Recent Progress Patient-Stated? Author Hemoglobin A1c < 7 Result Component 7.3( 6 10:42 AM EST) No Vaishnavi Laird, PharmD Record your blood sugar as directed Result Component No Vaishnavi Laird, PharmD documented as of this encounter Visit Diagnoses Not on filedocumented in this encounter Additional Health Concerns Assessment Noted Time PHQ-9 Depression Total Score: 8 10/18/19 24 11:35 AM EDT documented as of this encounter Care Teams Sous Chef Kitchen Manager Relationship Specialty Start Date End Date Ethel Chase DO [address] [place] [address] PCP - General Family Medicine 10/12/13 Vaishnavi Laird, PharmD [address] [place] [address] Pharmacist Internal Medicine 02/07/23 [id number] 06/11/24 11/18/24 documented as of this encounter
--- OUTSIDE RECORDS SUMMARY | 2025-03-18 12:28 | XMS_ITS | Encounter Summary ---
Author Organization [employer] Address [address] [place] [address] 7t [place] [address] Care Team Providers Care Accredited Farm Manager Name Role Phone Ethel Chase DO Primary Care Provider Vaishnavi Laird PharmD Unavailable [phone] Reason for Visit * Reason Comments Med Refill Encounter Details Date Type Department Care Team (Late Contact Info) Description 06/06/2022 Refill [facility] MEDICINE [address] [place] [address] Ethel Chase DO [address] [place] [address] Other chronic pain Social History Tobacco Use [...] Department Care Team (Late Contact Info) Description 04/28/2025 9:30 AM EST Medication Management [address] [address] Vaishnavi Laird PharmD [address] [place] [address] 06/01/2025 9:00 AM EDT Clinical Support [address] [address] Suad Wilson, MARY documented as of this encounter Visit Diagnoses Diagnosis Other chronic pain documented in this encounter Additional Health Concerns Assessment Noted Time PHQ-9 Depression Total Score: 0 02/08/20 22 10:43 AM EST documented as of this encounter Care Teams Accredited Farm Manager Relationship Specialty Start Date End Date Ethel Chase DO [address] [place] [address] PCP - General Family Medicine 10/12/13 Vaishnavi Laird PharmD [address] [place] [address] Pharmacist Internal Medicine 02/07/23 [id number] 06/11/24 11/18/24 documented as of this encounter
--- OUTSIDE RECORDS SUMMARY | 2025-03-18 12:28 | XMS_ITS | Encounter Summary ---
Author Organization [employer] Address [address] [place] [address] 7t [place] [address] Care Team Providers Care Primer Inspector Name Role Phone Ethel Chase DO Primary Care Provider [phone] Vaishnavi Laird PharmD Unavailable [phone] Reason for Visit * Reason Onset Date Comments Pre-Op 03/23/2024 Encounter Details Date Type Department Care Team ([facility] st Contact Info) Description 03/23/2024 Telephone [facility] MEDICINE [address] [place] [address] Ethel Chase DO [address] [place] [address] Pre-Op Social History Tobacco Use Types Packs/Day [...] Yes Surgeon's name: Dave Oro Facility name: [facility] Orthopedic Surgeon's office number: [phone] Surgeon's office fax number: [phone] Contact name (person you spoke with): Trish - Pt requesting reschedule 02/13 appt. Last office note from surgeon requested: Yes Send Message to Venus [place] documented in this encounter Plan of Treatment Upcoming Encounters Date Type Department Care Team (Late st Contact Info) Description 04/28/2025 9:30 AM EST Medication Management [address] [address] Vaishnavi Laird PharmD [address] [place] [address] 06/01/2025 9:00 AM EDT Clinical Support [address] [address] Suad Wilson, RN documented as of this encounter Goals Goal Patient Goal Type Associated Problems Recent Progress Patient-Stated? Author Hemoglobin A1c < 7 Result Component 7.3( 10:42 AM EST) No Vaishnavi Laird PharmD Record your blood sugar as directed Result Component No Vaishnavi Laird PharmD documented as of this encounter Visit Diagnoses Not on filedocumented in this encounter Additional Health Concerns Assessment Noted Time PHQ-9 Depression Total Score: 8 10/18/19 24 11:35 AM EDT documented as of this encounter Care Teams Primer Inspector Relationship Specialty Start Date End Date Ethel Chase DO [address] [place] [address] PCP - General Family Medicine 10/12/13 Vaishnavi Laird PharmD [address] [place] [address] Pharmacist Internal Medicine 02/07/23 [id number] 06/11/24 11/18/24 documented as of this encounter
--- OUTSIDE RECORDS SUMMARY | 2025-03-18 12:28 | XMS_ITS | Encounter Summary ---
Author Organization [employer] Address [address] [place] [address] 7t [place] [address] Care Team Providers Care Grinder Tender Name Role Phone Ethel Chase DO Primary Care Provider [phone] PuVaishnavi thorpe PharmD Unavailable [phone] Reason for Visit * Reason Comments Med Refill Encounter Details Date Type Department Care Team (Late st Contact Info) Description 04/06/2022 Refill [facility] [address] [place] [address] Ethel Chase DO [address] [place] [address] Other chronic pain Social History Tobacco Use [...] Description 04/28/2025 9:30 AM EST Medication Management [facility] [address] [place] [address] Puia, Vaishnavi, PharmD [address] [place] [address] 06/01/2025 9:00 AM EDT Clinical Support [facility] [address] [place] [address] Suad Wilson, RN documented as of this encounter Visit Diagnoses Diagnosis Other chronic pain documented in this encounter Additional Health Concerns Assessment Noted Time PHQ-9 Depression Total Score: 0 02/08/20 22 10:43 AM EST documented as of this encounter Care Teams Grinder Tender Relationship Specialty Start Date End Date Ethel Chase DO [address] [place] [address] PCP - General Family Medicine 10/12/13 Vaishnavi Laird, Zana [address] [place] [address] Pharmacist Internal Medicine 02/07/23 [id number] 06/11/24 11/18/24 documented as of this encounter
--- OUTSIDE RECORDS SUMMARY | 2025-03-18 12:28 | XMS_ITS | Encounter Summary ---
Author Organization [facility] Address [address] [place] [address] Care Team Providers Care Freight Car Cleaner [employer] Name Role Phone Matias Bowling MD Primary Care Provider [phone] Encounter Details Date Type Department Care Team (Late st Contact Info) Description 05/06/2024 Lab Requisition [facility] - Main Lab [address] [place] [address] Matias Bowling MD 38 [facility] [address] [place], [address] Essential (primary) hypertension Social History Tobacco [...] mmol/L LAB CHEMISTRY METHOD 05/07/2024 10:37 AM [facility] CO2 22 21 - 32 mmol/L LAB CHEMISTRY METHOD 05/07/2024 10:37 AM [facility] Anion Gap 8 3 - 11 LAB CHEMISTRY METHOD 05/07/2024 10:37 AM [facility] Glucose 121(H) 70 - 100 mg/dL LAB CHEMISTRY METHOD 05/07/2024 10:37 AM [facility] BUN 15 5 - 25 mg/dL LAB CHEMISTRY METHOD 05/07/2024 10:37 AM [facility] Creatinine 1.02 0.50 - 1.10 mg/dL LAB CHEMISTRY METHOD 05/07/2024 10:37 AM [facility] eGFR 60 >=60 mL/min/1. 73m2 LAB CHEMISTRY METHOD 05/07/2024 10:37 AM [facility] Comment:Calculation based on the Chronic Kidney Disease Epidemiology Collaboration (CKD-EPI) equation refit without adjustment for race. BUN/Creatinine Ratio 14.7 LAB CHEMISTRY METHOD 05/07/2024 10:37 AM [facility] Calcium 9.1 8.5 - 10.5 mg/dL LAB CHEMISTRY METHOD 05/07/2024 10:37 AM [facility] AST (SGOT) 15 10 - 42 unit/L LAB CHEMISTRY METHOD 05/07/2024 10:37 AM [facility] ALT (SGPT) 20 10 - 60 unit/L LAB CHEMISTRY METHOD 05/07/2024 10:37 AM [facility] Alkaline Phosphatase 161(H) 42 - 121 unit/L LAB CHEMISTRY METHOD 05/07/2024 10:37 AM [facility] Total Protein 6.4 6.0 - 8.0 g/dL LAB CHEMISTRY METHOD 05/07/2024 10:37 AM [facility] Albumin 3.1(L) 3.2 - 5.0 g/dL LAB CHEMISTRY METHOD 05/07/2024 10:37 AM EDT [facility] Total Bilirubin 0.2 0.0 - 1.4 mg/dL LAB CHEMISTRY METHOD 05/07/2024 10:37 AM [facility] Blood Venous blood specimen / Unknown Venipuncture / Unknown 05/07/2024 5:12 AM EDT 05/07/2024 8:53 AM EDT us Matias Bowling MD LAB BLOOD ORDERABLES Final Resul t [facility] [address] [place] [address], [place] [phone] * (ABNORMAL) Complete blood count (05/07/2024 5:12 AM EDT) WBC 9.6 4.8 - 10.8 K/mcL LAB HEMETOLOGY METHOD 05/07/2024 10:09 AM [facility] RBC 3.60(L) 3.80 - 4.80 M/mcL LAB HEMETOLOGY METHOD 05/07/2024 10:09 AM [facility] Hemoglobin 9.4(L) 11.5 - 16.0 g/dL LAB HEMETOLOGY METHOD 05/07/2024 10:09 AM [facility] Hematocrit 31.5(L) 35.0 - 47.0 % LAB HEMETOLOGY METHOD 05/07/2024 10:09 AM [facility] MCV 88.2 79.0 - 98.0 FL LAB HEMETOLOGY METHOD 05/07/2024 10:09 AM [facility] MCH 26.3(L) 27.0 - 32.0 pcg LAB HEMETOLOGY METHOD 05/07/2024 10:09 AM [facility] MCHC 29.8(L) 32.0 - 37.0 [...] t [facility] [address] [place] [address], documented in this encounter Visit Diagnoses Diagnosis Essential (primary) hypertension Unspecified essential hypertension documented in this encounter Additional Health Concerns Infection Onset Date Last Indicated Resolved Time Gastrointestinal Rule-Out 04/28/2024 04/27/2024 7:06 PM EDT C. difficile 05/29/2024 05/29/2024 06/22/2024 7:04 PM EDT C. difficile Rule-Out 05/30/2024 05/29/20242024 9:47 AM EDT documented as of this encounter Care Teams Freight Car Cleaner [employer] Relationship Specialty Start Date End Date Matias Bowling MD 38 [facility] [address] [place] [phone] PCP - General Family Medicine 04/16/24 documented as of this encounter
--- OUTSIDE RECORDS SUMMARY | 2025-03-18 12:28 | XMS_ITS | Encounter Summary ---
Author Organization [employer] Address [address] [facility] [address] h Floor [place] [id number] Care Team Providers Care Director [employer] Name Role Phone ManuelEthel perry Primary Care Provider [phone] Vaishnavi Laird PharmD Unavailable [phone] Reason for Visit * Reason Comments Med Refill Encounter Details Date Type Department Care Team ([facility] st Contact Info) Description 02/02/[address] [facility] MEDICINE [address] [place] [address] Sadie Rivera, ANP [address] [place] [address] Type 2 diabetes mellitus with other specified complication, unspecified whether prison insulin use ([facility]) Social History Tobacco Use Types Packs/Day Years [...] Description 04/28/2025 9:30 AM EST Medication Management [address] [address] Vaishnavi Laird PharmD [address] [place] [address] 06/01/2025 9:00 AM EDT Clinical Support [address] [address] Suad Wilson, MARY documented as of this encounter Visit Diagnoses Diagnosis Type 2 diabetes mellitus with other specified complication, unspecified whether intermediate teacher insulin use (HCC) documented in this encounter Additional Health Concerns Assessment Noted Time PHQ-9 Depression Total Score: 0 02/08/20 22 10:43 AM EST documented as of this encounter Care Teams Director [employer] Relationship Specialty Start Date End Date Ethel Chase DO [address] [place] [address] PCP - General Family Medicine 10/12/13 Vaishnavi Laird PharmD [address] [place] [address] Pharmacist Internal Medicine 02/07/23 [id number] 06/11/24 11/18/24 documented as of this encounter
--- OUTSIDE RECORDS SUMMARY | 2025-03-18 12:28 | XMS_ITS | Clinical Summary ---
Author Organization [facility] Address [address] [facility] [address] [place] [address] Phone Care Team Providers Care Mysql Dba Name Role Phone ManuelEthel perry Primary Care Provider Social History Tobacco Use [...] MEDICARE REPLACEMENT MEDICARE REPLACEMENT JOSÉ MIGUEL HERRING [id number] Care Teams Mysql Dba Relationship Specialty Start Date End Date Salvatore EthelDO [address] [place] [address] PCP - General Family Medicine 12/19/23 Additional Source Comments The information contained in this document represents components of the legal health record. It is not the complete legal health record.[facility]
--- OUTSIDE RECORDS SUMMARY | 2025-03-18 12:29 | XMS_ITS | Encounter Summary ---
Author Organization [employer] Address [address] [place] [address] 7t [place] [address] Care Team Providers Care Electrolysis Operator Name Role Phone Ethel Chase DO Primary Care Provider [phone] Vaishnavi Laird PharmD Unavailable [phone] Reason for Visit * Reason Onset Date Comments Appointment Request 03/02/2024 Encounter Details Date Type Department Care Team ([facility] st Contact Info) Description 03/02/2024 Telephone [facility] MEDICINE [address] [place] [address] Ethel Chase DO [address] [place] [address] Appointment Request Social History Tobacco Use Types [...] would like to reschedule. Please contact pt: [phone] ([place]) documented in this encounter Plan of Treatment Upcoming Encounters Date Type Department Care Team (Late st Contact Info) Description 04/28/2025 9:30 AM EST Medication Management [facility] MEDICINE [address] [place] [address] Vaishnavi Laird PharmD [address] [place] [address] 06/01/2025 9:00 AM EDT Clinical Support [address] [address] uSad Wilson, MARY documented as of this encounter Goals Goal Patient Goal Type Associated Problems Recent Progress Patient-Stated? Author Hemoglobin A1c < 7 Result Component 7.3( 6 10:42 AM EST) No Vaishnavi Laird PharmRina Record your blood sugar as directed Result Component No Vaishnavi Laird PharmD documented as of this encounter Visit Diagnoses Not on filedocumented in this encounter Additional Health Concerns Assessment Noted Time PHQ-9 Depression Total Score: 8 10/18/19 24 11:35 AM EDT documented as of this encounter Care Teams Electrolysis Operator Relationship Specialty Start Date End Date Ethel Chase DO [address] [place] [address] PCP - General Family Medicine 10/12/13 Vaishnavi Laird PharmD [address] [place] [address] Pharmacist Internal Medicine 02/07/23 [id number] 06/11/24 11/18/24 documented as of this encounter
--- OUTSIDE RECORDS SUMMARY | 2025-03-18 12:29 | XMS_ITS | Encounter Summary ---
Author Organization [facility] Address [address] [place] [address] Care Team Providers Care Model And Dye Person Name Role Phone Matias Bowling MD Primary Care Provider [phone] Encounter Details Date Type Department Care Team (Late st Contact Info) Description 05/22/2024 Lab Requisition [facility] - Main Lab [address] [place] [address] Matias Bowling MD 38 [facility] [address] [place], [address] 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 classified elsewhere (CMS/HCC [...] LAB CHEMISTRY METHOD 05/22/2024 11:37 AM EDT [facility] ([facility] Potassium 5.2 3.5 - 5.5 mmol/L LAB CHEMISTRY METHOD 05/22/2024 11:[address] [facility] Chloride 102 96 - 110 mmol/L LAB CHEMISTRY METHOD 05/22/2024 11:[address] [facility] CO2 25 21 - 32 mmol/L LAB CHEMISTRY METHOD 05/22/2024 11:[address] [facility] Anion Gap 7 3 - 11 LAB CHEMISTRY METHOD 05/22/2024 11:[address] [facility] Glucose 163(H) 70 - 100 mg/dL LAB CHEMISTRY METHOD 05/22/2024 11:[address] [facility] BUN 18 5 - 25 mg/dL LAB CHEMISTRY METHOD 05/22/2024 11:[address] [facility] Creatinine 1.65(H) 0.50 - 1.10 mg/dL LAB CHEMISTRY METHOD 05/22/2024 11:[address] [facility] eGFR 34(L) >=60 mL/min/1. 73m2 LAB CHEMISTRY METHOD 05/22/2024 11:[address] [facility] Comment:Calculation based on the Chronic Kidney Disease Epidemiology Collaboration (CKD-EPI) equation refit without adjustment for race. BUN/Creatinine Ratio 10.9 LAB CHEMISTRY METHOD 05/22/2024 11:[address] [facility] Calcium 8.8 8.5 - 10.5 mg/dL LAB CHEMISTRY METHOD 05/22/2024 11:[address] [facility] Blood Venous blood specimen / Unknown Venipuncture / Unknown 05/22/2024 8:23 AM EDT 05/22/2024 10:31 AM EDT us Matias Bowling MD LAB BLOOD ORDERABLES Final Resul t [facility] [address] [place] [address], * (ABNORMAL) Complete blood count (05/22/2024 8:23 AM EDT) [facility] WBC 9.8 4.8 - 10.8 K/mcL LAB HEMETOLOGY METHOD 05/22/2024 11:[address] [facility] RBC 3.60(L) 3.80 - 4.80 M/mcL LAB HEMETOLOGY METHOD 05/22/2024 11:[address] [facility] Hemoglobin 9.5(L) 11.5 - 16.0 g/dL LAB HEMETOLOGY METHOD 05/22/2024 11:[address] [facility] Hematocrit 31.2(L) 35.0 - 47.0 % LAB HEMETOLOGY METHOD 05/22/2024 11:[address] [facility] MCV 86.4 79.0 - 98.0 FL LAB HEMETOLOGY METHOD 05/22/2024 11:[address] [facility] MCH 26.3(L) 27.0 - 32.0 pcg LAB HEMETOLOGY METHOD 05/22/2024 11:[address] [facility] MCHC 30.4(L) 32.0 - 37.0 g/dL LAB HEMETOLOGY METHOD 05/22/2024 11:[address] [facility] RDW 14.7 11.0 - 15.0 % LAB HEMETOLOGY METHOD 05/22/2024 11:[address] [facility] Platelets 278 130 - 400 K/mcL LAB HEMETOLOGY METHOD 05/22/2024 11:[address] [facility] MPV 10.5 7.0 - 11.0 FL LAB HEMETOLOGY METHOD 05/22/2024 11:[address] [facility] NRBC 0.0 <1.0 % LAB HEMETOLOGY METHOD 05/22/2024 11:[address] [facility] NRBC Absolute 0.00 <0.10 K/mcL LAB HEMETOLOGY METHOD 05/22/2024 11:21 AM EDT [facility] Blood Venous blood specimen / Unknown Venipuncture / Unknown 05/22/2024 8:23 AM EDT 05/22/2024 10:31 AM EDT us Matias Bowling MD LAB BLOOD ORDERABLES Final Resul t [facility] [address] [place] [address], documented in this encounter Visit Diagnoses Diagnosis 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 classified elsewhere (CMS/HCC V24, CMS/HCC V28) Hyperlipidemia, unspecified documented in this encounter Additional Health Concerns Infection Onset Date Last Indicated Resolved Time Gastrointestinal Rule-Out 04/28/2024 04/27/2024 7:06 PM EDT C. difficile 05/29/2024 05/29/2024 06/22/2024 7:04 PM EDT C. difficile Rule-Out 05/30/2024 05/29/20242024 9:47 AM EDT documented as of this encounter Care Teams Model And Dye Person Relationship Specialty Start Date End Date Matias Bowling MD [address] [place] [address] [address] [place] [address] PCP - General Family Medicine 04/16/24 documented as of this encounter
--- OUTSIDE RECORDS SUMMARY | 2025-03-18 12:29 | XMS_ITS | Encounter Summary ---
Author Organization [facility] Address [address] [place] [address] Care Team Providers Care Environmental Remediation Engineer Name Role Phone Matias Bowling MD Primary Care Provider [phone] Encounter Details Date Type Department Care Team (Late st Contact Info) Description 04/23/2024 Lab Requisition [facility] - Main Lab [address] [place] [address] Matias Bowling MD 38 [facility] [address] [place], [address] Essential (primary) hypertension Social History Tobacco [...] mmol/L LAB CHEMISTRY METHOD 04/23/2024 10:18 AM [facility] CO2 25 21 - 32 mmol/L LAB CHEMISTRY METHOD 04/23/2024 10:18 AM [facility] Anion Gap 9 3 - 11 LAB CHEMISTRY METHOD 04/23/2024 10:18 AM [facility] Glucose 114(H) 70 - 100 mg/dL LAB CHEMISTRY METHOD 04/23/2024 10:18 AM [facility] BUN 17 5 - 25 mg/dL LAB CHEMISTRY METHOD 04/23/2024 10:18 AM [facility] Creatinine 1.01 0.50 - 1.10 mg/dL LAB CHEMISTRY METHOD 04/23/2024 10:18 AM [facility] eGFR 61 >=60 mL/min/1. 73m2 LAB CHEMISTRY METHOD 04/23/2024 10:18 AM [facility] Comment:Calculation based on the Chronic Kidney Disease Epidemiology Collaboration (CKD-EPI) equation refit without adjustment for race. BUN/Creatinine Ratio 16.8 LAB CHEMISTRY METHOD 04/23/2024 10:18 AM [facility] Calcium 9.4 8.5 - 10.5 mg/dL LAB CHEMISTRY METHOD 04/23/2024 10:18 AM [facility] AST (SGOT) 18 10 - 42 unit/L LAB CHEMISTRY METHOD 04/23/2024 10:18 AM [facility] ALT (SGPT) 25 10 - 60 unit/L LAB CHEMISTRY METHOD 04/23/2024 10:18 AM [facility] Alkaline Phosphatase 165(H) 42 - 121 unit/L LAB CHEMISTRY METHOD 04/23/2024 10:18 AM [facility] Total Protein 7.0 6.0 - 8.0 g/dL LAB CHEMISTRY METHOD 04/23/2024 10:18 AM [facility] Albumin 3.3 3.2 - 5.0 g/dL LAB CHEMISTRY METHOD 04/23/2024 10:18 AM [facility] Total Bilirubin 0.4 0.0 - 1.4 mg/dL LAB CHEMISTRY METHOD 04/23/2024 10:18 AM [facility] Blood Venous blood specimen / Unknown Venipuncture / Unknown 04/23/2024 5:04 AM EST 04/23/2024 8:47 AM EST us Matias Bowling MD LAB BLOOD ORDERABLES Final Resul t [facility] [address] [place] [address], * (ABNORMAL) Complete blood count (04/23/2024 5:04 AM EST) WBC 8.9 4.8 - 10.8 K/mcL LAB HEMETOLOGY METHOD 04/23/2024 9:28 AM [facility] RBC 3.40(L) 3.80 - 4.80 M/mcL LAB HEMETOLOGY METHOD 04/23/2024 9:28 AM [facility] Hemoglobin 9.2(L) 11.5 - 16.0 g/dL LAB HEMETOLOGY METHOD 04/23/2024 9:28 AM [facility] Hematocrit 30.3(L) 35.0 - 47.0 % LAB HEMETOLOGY METHOD 04/23/2024 9:28 AM [facility] MCV 88.1 79.0 - 98.0 FL LAB HEMETOLOGY METHOD 04/23/2024 9:28 AM [facility] MCH 26.7(L) 27.0 - 32.0 pcg LAB HEMETOLOGY METHOD 04/23/2024 9:28 AM [facility] MCHC 30.4(L) 32.0 - 37.0 g/dL LAB HEMETOLOGY METHOD 04/23/2024 9:[address] [facility] RDW 14.6 11.0 - 15.0 % LAB HEMETOLOGY METHOD 04/23/2024 9:28 AM [facility] Platelets 333 130 - 400 K/mcL LAB HEMETOLOGY METHOD 04/23/2024 9:28 AM [facility] MPV 9.8 7.0 - 11.0 FL LAB HEMETOLOGY METHOD 04/23/2024 9:28 AM [facility] NRBC 0.0 <1.0 % LAB HEMETOLOGY METHOD 04/23/2024 9:28 AM [facility] NRBC Absolute 0.00 <0.10 K/mcL LAB HEMETOLOGY METHOD 04/23/2024 9:28 AM [facility] Blood Venous blood specimen / Unknown Venipuncture / Unknown 04/23/2024 5:04 AM EST 04/23/2024 8:47 AM EST us Matias Bowling MD LAB BLOOD ORDERABLES Final Resul t [facility] [address] [place] [address], documented in this encounter Visit Diagnoses Diagnosis Essential (primary) hypertension Unspecified essential hypertension documented in this encounter Additional Health Concerns Infection Onset Date Last Indicated Resolved Time Gastrointestinal Rule-Out 04/28/2024 04/27/2024 7:06 PM EDT C. difficile 05/29/2024 05/29/2024 06/22/2024 7:04 PM EDT C. difficile Rule-Out 05/30/2024 05/29/20242024 9:47 AM EDT documented as of this encounter Care Teams Environmental Remediation Engineer Relationship Specialty Start Date End Date Matias Bowling MD [address] [place] [address] PCP - General Family Medicine 04/16/24 documented as of this encounter
--- OUTSIDE RECORDS SUMMARY | 2025-03-18 12:29 | XMS_ITS | Encounter Summary ---
Author Organization [facility] Address [address] [place] [address] Care Team Providers Care Genetics Nurse Name Role Phone Matias Bowling MD Primary Care Provider [phone] Encounter Details Date Type Department Care Team (Late st Contact Info) Description 05/30/2024 Lab Requisition [facility] - Main Lab [address] [facility] [place] [address] Matias Bowling MD 38 [facility] [address] [place], [address] Diarrhea, unspecified Social History Tobacco Use [...] LAB MICROBIOLOGY METHOD 05/30/2024 11:16 AM EDT [facility] Comment: CRITICAL RESULT POSITIVE FOR TOXIN PRODUCING CLOSTRIDIOIDES DIFFICILE, NO ADDITIONAL TESTING IS NECESSARY. REPEAT SAMPLES SHOULD NOT BE SUBMITTED FOR TEST OF CURE. Stool Rectum structure / Unknown Non-blood Collection / Unknown 05/29/2024 1:50 PM EDT 05/30/2024 9:47 AM EDT Matias Bowlnig MD LAB MICROBIOLOGY - GENERAL ORDER MARGARET Final Result Performing Organization Address City/[facility]/ZIP Co de Phone Number [facility] [address] [place] [address], [place] [phone] * Occult blood stool, guaiac (05/29/2024 1:50 PM EDT) Occult Blood, Stool #1 Negative Negative 05/30/2024 9:30 AM EDT [facility] Stool Rectum structure / Unknown Non-blood Collection / Unknown 05/29/2024 1:50 PM EDT 05/30/2024 8:36 AM EDT Matias Bowling MD LAB BODY FLUIDS AND STOOLS ORDER MARGARET Final Result Performing Organization Address [facility]/ZIP Co de Phone Number [facility] [address] [place] [address], [place] [phone] * Ova and parasite examination (05/29/2024 1:50 PM EDT) Ova and Parasite No Ova or Parasite seen. 06/03/2024 10:02 AM EDT [facility] Stool Rectum structure / Unknown Non-blood Collection / Unknown 05/29/2024 1:50 PM EDT 05/30/2024 8:36 AM EDT Narrative [facility] - 06/03/2024 10:02 AM EDT Special test request required for Coccidia and Microsporidia. Matias Bowling MD LAB MICROBIOLOGY - GENERAL ORDER MARGARET Final Result Performing Organization Address [facility]/ZIP Co de Phone Number [facility] [address] [place] [address], [place] [phone] * Clostridium difficile toxin (05/29/2024 1:50 PM EDT) C difficile Toxins A+B, EIA 05/30/2024 9:47 AM EDT [facility] Comment:Refer to C. difficil e PCR assay for results. Stool Rectum structure / Unknown Non-blood Collection / Unknown 05/29/2024 1:50 PM EDT 05/30/2024 8:36 AM EDT Matias Bowling MD LAB MICROBIOLOGY - GENERAL ORDER MARGARET Final Result Performing Organization Address [facility] Co de Phone Number [facility] [address] [place] [address], [place] [phone] documented in this encounter Visit Diagnoses Diagnosis Diarrhea, unspecified documented in this encounter Additional Health Concerns Infection Onset Date Last Indicated Resolved Time C. difficile 05/29/2024 05/29/2024 06/22/2024 7:04 PM EDT C. difficile Rule-Out 05/30/2024 05/29/20242024 9:47 AM EDT documented as of this encounter Care Teams Genetics Nurse Relationship Specialty Start Date End Date Matias Bowling MD [address] [place] [address] [address] [place] [address] PCP - General Family Medicine 04/16/24 documented as of this encounter
--- OUTSIDE RECORDS SUMMARY | 2025-03-18 12:29 | XMS_ITS | Encounter Summary ---
Author Organization [facility] Address [address] [place] [address] Care Team Providers Care Lorry Weigher Name Role Phone Matias Bowling MD Primary Care Provider [phone] Encounter Details Date Type Department Care Team (Late st Contact Info) Description 05/27/[address] [facility] - Main Lab [address] [place] [address] Matias Bowling MD 38 [facility] [address] [place], [address] Essential (primary) hypertension Social History Tobacco [...] LAB CHEMISTRY METHOD 05/28/2024 10:13 AM EDT [facility] Potassium 4.2 3.5 - 5.5 mmol/L LAB CHEMISTRY METHOD 05/28/2024 10:13 AM EDT [facility] Chloride 103 96 - 110 mmol/L LAB CHEMISTRY METHOD 05/28/2024 10:13 AM [facility] CO2 28 21 - 32 mmol/L LAB CHEMISTRY METHOD 05/28/2024 10:13 AM [facility] Anion Gap 6 3 - 11 LAB CHEMISTRY METHOD 05/28/2024 10:13 AM [facility] Glucose 141(H) 70 - 100 mg/dL LAB CHEMISTRY METHOD 05/28/2024 10:13 AM [facility] BUN 13 5 - 25 mg/dL LAB CHEMISTRY METHOD 05/28/2024 10:13 AM [facility] Creatinine 1.21(H) 0.50 - 1.10 mg/dL LAB CHEMISTRY METHOD 05/28/2024 10:13 AM [facility] eGFR 49(L) >=60 mL/min/1. 73m2 LAB CHEMISTRY METHOD 05/28/2024 10:13 AM [facility] Comment:Calculation based on the Chronic Kidney Disease Epidemiology Collaboration (CKD-EPI) equation refit without adjustment for race. BUN/Creatinine Ratio 10.7 LAB CHEMISTRY METHOD 05/28/2024 10:13 AM [facility] Calcium 8.6 8.5 - 10.5 mg/dL LAB CHEMISTRY METHOD 05/28/2024 10:13 AM [facility] AST (SGOT) 12 10 - 42 unit/L LAB CHEMISTRY METHOD 05/28/2024 10:13 AM [facility] ALT (SGPT) 19 10 - 60 unit/L LAB CHEMISTRY METHOD 05/28/2024 10:13 AM [facility] Alkaline Phosphatase 147(H) 42 - 121 unit/L LAB CHEMISTRY METHOD 05/28/2024 10:13 AM [facility] Total Protein 6.3 6.0 - 8.0 g/dL LAB CHEMISTRY METHOD 05/28/2024 10:13 AM [facility] Albumin 3.1(L) 3.2 - 5.0 g/dL LAB CHEMISTRY METHOD 05/28/2024 10:13 AM EDT [facility] Total Bilirubin 0.2 0.0 - 1.4 mg/dL LAB CHEMISTRY METHOD 05/28/2024 10:13 AM [facility] Blood Venous blood specimen / Unknown Venipuncture / Unknown 05/28/2024 5:02 AM EDT 05/28/2024 9:04 AM EDT us Matias Bowling MD LAB BLOOD ORDERABLES Final Resul t [facility] [address] [place] [address], [place] [phone] * (ABNORMAL) Complete blood count (05/28/2024 5:02 AM EDT) WBC 10.3 4.8 - 10.8 K/mcL LAB HEMETOLOGY METHOD 05/28/2024 9:26 AM [facility] RBC 3.30(L) 3.80 - 4.80 M/mcL LAB HEMETOLOGY METHOD 05/28/2024 9:26 AM [facility] Hemoglobin 8.7(L) 11.5 - 16.0 g/dL LAB HEMETOLOGY METHOD 05/28/2024 9:26 AM [facility] Hematocrit 28.7(L) 35.0 - 47.0 % LAB HEMETOLOGY METHOD 05/28/2024 9:26 AM [facility] MCV 87.0 79.0 - 98.0 FL LAB HEMETOLOGY METHOD 05/28/2024 9:26 AM [facility] MCH 26.4(L) 27.0 - 32.0 pcg LAB HEMETOLOGY METHOD 05/28/2024 9:26 AM [facility] MCHC 30.3(L) 32.0 - 37.0 g/dL LAB HEMETOLOGY METHOD 05/28/2024 9:26 AM EDT [facility] RDW 14.9 11.0 - 15.0 % LAB HEMETOLOGY METHOD 05/28/2024 9:26 AM EDT [facility] Platelets 281 130 - 400 K/mcL LAB HEMETOLOGY METHOD 05/28/2024 9:26 AM EDT [facility] MPV 10.2 7.0 - 11.0 FL LAB HEMETOLOGY METHOD 05/28/2024 9:26 AM EDT [facility] NRBC 0.0 <1.0 % LAB HEMETOLOGY METHOD 05/28/2024 9:26 AM EDT [facility] NRBC Absolute 0.00 <0.10 K/mcL LAB HEMETOLOGY METHOD 05/28/2024 9:26 AM EDT [facility] Blood Venous blood specimen / Unknown Venipuncture / Unknown 05/28/2024 5:02 AM EDT 05/28/2024 9:04 AM EDT us Matias Bowling MD LAB BLOOD ORDERABLES Final Resul t [facility] [address] [place] [address], documented in this encounter Visit Diagnoses Diagnosis Essential (primary) hypertension Unspecified essential hypertension documented in this encounter Additional Health Concerns Infection Onset Date Last Indicated Resolved Time C. difficile 05/29/2024 05/29/2024 06/22/2024 7:04 PM EDT C. difficile Rule-Out 05/30/2024 05/29/20242024 9:47 AM EDT documented as of this encounter Care Teams Lorry Weigher Relationship Specialty Start Date End Date Matias Bowling MD [address] [place] [phone] PCP - General Family Medicine 04/16/24 documented as of this encounter
--- OUTSIDE RECORDS SUMMARY | 2025-03-18 12:29 | XMS_ITS | Clinical Summary ---
Author Organization [address] Address [address] [place] [address] Phone Care Team Providers Care Mortgage Loan Officer Name Role Phone Matias Bowling MD Primary Care Provider [phone] Social History Tobacco Use Types Packs/Day Years [...] 12/29/2005 Zoster Vaccines (1 of 2) 12/29/2005 Cholesterol Screening (Lipid Panel) 04/16/2024 Falls Risk Assessment 04/16/2024 Hepatitis C Screening 04/16/2024 Medicare Annual Wellness Visit 04/16/2024 Osteoporosis Screening (Bone Density Screening) 04/16/2024 Social Influencers of Health Screening 04/16/2024 COVID-19 Vaccine (1 - 2024-2 6 season) 2024 Influenza Vaccine (#1) 2024 Depression Screening 02/25/2025 Colorectal Cancer Screening: Stool Based Tests (FOBT/FIT) [...] #1 Negative Negative 05/30/2024 9:30 AM EDT [facility] Stool Rectum structure / Unknown Non-blood Collection / Unknown 05/29/2024 1:50 PM EDT 05/30/2024 8:36 AM EDT Matias Bowling MD LAB BODY FLUIDS AND STOOLS ORDER MARGARET Final Result [facility] [address] [place] [address], from Last 3 Months or Most Recently Relevant to Health Maintenance Insurance [facility] MEDICARE Member Subscriber Plan / Payer (Ef fective 2022-Present) Name:Trish Hunter Relation to Subscriber:Self Name:Trish Hunter Payer ID:[id number] Group ID:[id number] Type:Not on file Address: [address] [place] [address] Care Teams Mortgage Loan Officer Relationship Specialty Start Date End Date Matias Bowling MD [address] [address] PCP - General Family Medicine 04/16/24
--- OUTSIDE RECORDS SUMMARY | 2025-03-18 12:29 | XMS_ITS | Encounter Summary ---
Author Organization [employer] Address [address] [place] [address] 7[address] [place] [address] Care Team Providers Care Off Track Betting Manager Name Role Phone Ethel Chase Primary Care Provider [phone] Vaishnavi Laird PharmD Unavailable Encounter Details Date Type Department Care Team (Late Contact Info) Description 02/09/2022 Orders Only [facility] [address] [place] [address] Sadie Rivera, ANP [address] [place] [address] Social History Tobacco Use Types Packs/Day Years [...] Description 04/28/2025 9:30 AM EST Medication Management [address] [address] [place]ishnavi [place] [address] 06/01/2025 9:00 AM EDT Clinical Support [address] [address] Suad Wilson, MARY documented as of this encounter Visit Diagnoses Not on filedocumented in this encounter Additional Health Concerns Assessment Noted Time PHQ-9 Depression Total Score: 0 02/08/20 22 10:43 AM EST documented as of this encounter Care Teams Off Track Betting Manager Relationship Specialty Start Date End Date [place] [address] PCP - General Family Medicine 10/12/13 Vaishnavi Laird, Zana [address] [place] [address] Pharmacist Internal Medicine 02/07/23 [id number] 06/11/24 11/18/24 documented as of this encounter
--- OUTSIDE RECORDS SUMMARY | 2025-03-18 12:29 | XMS_ITS | Encounter Summary ---
Author Organization [facility] Address [address] [place] [address] Care Team Providers Care Patternmaker Sample Name Role Phone Matias Bowling MD Primary Care Provider [phone] Encounter Details Date Type Department Care Team (Late st Contact Info) Description 04/29/2024 Lab Requisition [facility] - Main Lab [address] [place] [address] Matias Bowling MD 38 [facility] [address] [place], [address] Hyperlipidemia, unspecified; 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 classified [...] LAB CHEMISTRY METHOD 04/29/2024 2:49 PM EST [facility] Potassium 4.5 3.5 - 5.5 mmol/L LAB CHEMISTRY METHOD 04/29/2024 2:49 PM [facility] Chloride 111(H) 96 - 110 mmol/L LAB CHEMISTRY METHOD 04/29/2024 2:49 PM [facility] CO2 23 21 - 32 mmol/L LAB CHEMISTRY METHOD 04/29/2024 2:49 PM [facility] Anion Gap 8 3 - 11 LAB CHEMISTRY METHOD 04/29/2024 2:49 PM [facility] Glucose 118(H) 70 - 100 mg/dL LAB CHEMISTRY METHOD 04/29/2024 2:49 PM [facility] BUN 18 5 - 25 mg/dL LAB CHEMISTRY METHOD 04/29/2024 2:49 PM [facility] Creatinine 0.94 0.50 - 1.10 mg/dL LAB CHEMISTRY METHOD 04/29/2024 2:49 PM [facility] eGFR 66 >=60 mL/min/1. 73m2 LAB CHEMISTRY METHOD 04/29/2024 2:49 PM [facility] Comment:Calculation based on the Chronic Kidney Disease Epidemiology Collaboration (CKD-EPI) equation refit without adjustment for race. BUN/Creatinine Ratio 19.1 LAB CHEMISTRY METHOD 04/29/2024 2:49 PM [facility] Calcium 9.2 8.5 - 10.5 mg/dL LAB CHEMISTRY METHOD 04/29/2024 2:49 PM [facility] AST (SGOT) 21 10 - 42 unit/L LAB CHEMISTRY METHOD 04/29/2024 2:49 PM [facility] ALT (SGPT) 24 10 - 60 unit/L LAB CHEMISTRY METHOD 04/29/2024 2:49 PM [facility] Alkaline Phosphatase 170(H) 42 - 121 unit/L LAB CHEMISTRY METHOD 04/29/2024 2:49 PM [facility] Total Protein 6.9 6.0 - 8.0 g/dL LAB CHEMISTRY METHOD 04/29/2024 2:49 PM EST [facility] Albumin 3.2 3.2 - 5.0 g/dL LAB CHEMISTRY METHOD 04/29/2024 2:49 PM [facility] Total Bilirubin 0.3 0.0 - 1.4 mg/dL LAB CHEMISTRY METHOD 04/29/2024 2:49 PM [facility] Blood Venous blood specimen / Unknown Venipuncture / Unknown 04/29/2024 6:35 AM EST 04/29/2024 10:01 AM EST us Matias Bowling MD LAB BLOOD ORDERABLES Final Resul t [facility] [address] [place] [address], [place] [phone] * (ABNORMAL) Complete blood count (04/29/2024 6:35 AM EST) WBC 9.6 4.8 - 10.8 K/mcL LAB HEMETOLOGY METHOD 04/29/2024 11:28 AM [facility] RBC 3.70(L) 3.80 - 4.80 M/mcL LAB HEMETOLOGY METHOD 04/29/2024 11:28 AM [facility] Hemoglobin 9.9(L) 11.5 - 16.0 g/dL LAB HEMETOLOGY METHOD 04/29/2024 11:28 AM [facility] Hematocrit 32.0(L) 35.0 - 47.0 % LAB HEMETOLOGY METHOD 04/29/2024 11:28 AM [facility] MCV 87.0 79.0 - 98.0 FL LAB HEMETOLOGY METHOD 04/29/2024 11:28 AM [facility] MCH 26.9(L) 27.0 - 32.0 pcg LAB HEMETOLOGY METHOD 04/29/2024 11:28 AM [facility] MCHC 30.9(L) 32.0 - 37.0 g/dL LAB HEMETOLOGY METHOD 04/29/2024 11:28 AM EST [facility] RDW 14.6 11.0 - 15.0 % LAB HEMETOLOGY METHOD 04/29/2024 11:28 AM [facility] Platelets 358 130 - 400 K/mcL LAB HEMETOLOGY METHOD 04/29/2024 11:28 AM [facility] MPV 10.0 7.0 - 11.0 FL LAB HEMETOLOGY METHOD 04/29/2024 11:28 AM [facility] NRBC 0.0 <1.0 % LAB HEMETOLOGY METHOD 04/29/2024 11:28 AM [facility] NRBC Absolute 0.00 <0.10 K/mcL LAB HEMETOLOGY METHOD 04/29/2024 11:28 AM [facility] Blood Venous blood specimen / Unknown Venipuncture / Unknown 04/29/2024 6:35 AM EST 04/29/2024 10:01 AM EST us Matias Bowling MD LAB BLOOD ORDERABLES Final Resul t [facility] [address] [place] [address], documented in this encounter Visit Diagnoses Diagnosis Hyperlipidemia, unspecified 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 classified elsewhere (CMS/HCC V24, CMS/HCC V28) documented in this encounter Additional Health Concerns Infection Onset Date Last Indicated Resolved Time Gastrointestinal Rule-Out 04/28/2024 04/27/2024 7:06 PM EDT C. difficile 05/29/2024 05/29/2024 06/22/2024 7:04 PM EDT C. difficile Rule-Out 05/30/2024 05/29/20242024 9:47 AM EDT documented as of this encounter Care Teams Patternmaker Sample Relationship Specialty Start Date End Date Matias Bowling MD [address] [place] [address] PCP - General Family Medicine 04/16/24 documented as of this encounter
--- OUTSIDE RECORDS SUMMARY | 2025-03-18 12:29 | XMS_ITS | Encounter Summary ---
Author Organization [facility] Address [address] [place] [address] Care Team Providers Care Conduit Installer Name Role Phone Matias Bowling MD Primary Care Provider [phone] Encounter Details Date Type Department Care Team (Late st Contact Info) Description 04/30/2024 Lab Requisition [facility] - Main Lab [address] [place] [address] Matias Bowling MD 38 [facility] [address] [place], [address] Essential (primary) hypertension Social History Tobacco [...] Resul t [facility] [address] [place] [address], * (ABNORMAL) Complete blood count (05/01/2024 4:57 [...] LAB BLOOD ORDERABLES Final [facility]ul [facility] [address] [place] [address], documented in this encounter Visit Diagnoses Diagnosis Essential (primary) hypertension Unspecified essential hypertension documented in this encounter Additional Health Concerns Infection Onset Date Last Indicated Resolved Time Gastrointestinal Rule-Out 04/28/2024 04/27/2024 7:06 PM EDT C. difficile 05/29/2024 05/29/2024 06/22/2024 7:04 PM EDT C. difficile Rule-Out 05/30/2024 05/29/20242024 9:47 AM EDT documented as of this encounter Care Teams Conduit Installer Relationship Specialty Start Date End Date Matias Bowling MD [address] [place] [phone] PCP - General Family Medicine 04/16/24 documented as of this encounter
--- OUTSIDE RECORDS SUMMARY | 2025-03-18 12:29 | XMS_ITS | Encounter Summary ---
Author Organization [facility] Address [address] [place] [address] Care Team Providers Care Tour Leader Name Role Phone Matias Bowling MD Primary Care Provider [phone] Encounter Details Date Type Department Care Team (Late st Contact Info) Description 04/29/2024 Lab Requisition [facility] - Main Lab 299 [facility] [address] Matias Bowling MD 38 [facility] 204 [facility] [...] documented as of this encounter Care Teams Tour Leader Relationship Specialty Start Date End Date Matisa Bowling MD 38 [facility] [address] [place] [address] PCP - General Family Medicine 04/16/24 documented as of this encounter
--- OUTSIDE RECORDS SUMMARY | 2025-03-18 12:29 | XMS_ITS | Encounter Summary ---
Author Organization [employer] Address [address] [place] [address] 7[address] [place] [address] Care Team Providers Care Pick Pulling Machine Tender Name Role Phone Ethel Chase DO Primary Care Provider [phone] Vaishnavi Laird PharmD Unavailable [phone] Reason for Visit * Reason Comments Med Refill Encounter Details Date Type Department Care Team ([facility] st Contact Info) Description 04/16/2024 Refill [facility] [address] [place] [address] Ethel Chase DO [address] [place] [address] Social History Tobacco Use Types Packs/Day Years [...] Description 04/28/2025 9:30 AM EST Medication Management [address] [address] Puia, Vaishnavi, PharmD [address] [place] [address] 06/01/2025 9:00 AM EDT Clinical Support [address] [address] Suad Wilson, MARY documented as of this [...] documented as of this encounter Care Teams Pick Pulling Machine Tender Relationship Specialty Start Date End Date Ethel Chase DO [address] [place] [address] PCP - General Family Medicine 10/12/13 Vaishnavi Laird, BrianD [address] [place] [address] Pharmacist Internal Medicine 02/07/23 [id number] 06/11/24 11/18/24 documented as of this encounter
--- OUTSIDE RECORDS SUMMARY | 2025-03-18 12:29 | XMS_ITS | Encounter Summary ---
Author Organization [employer] Address [address] [place] [address] 7t [place] [address] Care Team Providers Care Pump Assembler Name Role Phone Ethel Chase DO Primary Care Provider [phone] Vaishnavi Laird PharmD Unavailable [phone] Reason for Visit * Reason Comments Med Refill Encounter Details Date Type Department Care Team ([facility] st Contact Info) Description 02/07/2022 Refill [facility] [address] [place] [address] Ethel Chase DO [address] [place] [address] Diverticular disease (Primary Dx) Social History Tobacco [...] 3:31 PM EST TC placed to pt [phone] scan showed mild diverticulitis. Pt [...] is requesting medications to be sent to [facility] on [facility] in [facility] she cannot get to [facility] pharmacy before they close. RN [...] scan results are back yet. RN checked [employer] system and results not yet available. CT was ordered STAT. RN called [facility] radiology who reports they do not have a public events facilities rental manager on site or Saturday and RN would have to call [facility] at [phone] and [facility] to request results to be read. RN called [phone] however phone rang continuously without an automated recording w/ options ora VM. RN returned call to [facility] to inform them no one answered at [facility] and the phone just kept ringing. [facility] confirmed the number is correct and reports they will send a message to [facility] to ask them to interpret the CT scan. RN will check before end of the day for interpretation report. * Telephone Encounter - Arcelia Wylie - 02/08/2022 2:07 PM EST Tc from [facility] requesting lab ordered be refaxed, writer producer refaxed to [phone] * Telephone Encounter - Ethel Chase DO - 02/07/2022 3:51 PM EST Rx already sent. documented in this encounter Plan of Treatment Upcoming Encounters Date Type Department Care Team (Late st Contact Info) Description 04/28/2025 9:30 AM EST Medication Management [address] [address] Vaishnavi Laird, PharmD [address] [place] [address] 06/01/2025 9:00 AM EDT Clinical Support [address] [address] Suad Wilson RN documented as of this encounter Visit Diagnoses Diagnosis Diverticular disease- Primary Diverticulosis of colon (without mention of hemorrhage) documented in this encounter Additional Health Concerns Assessment Noted Time PHQ-9 Depression Total Score: 0 02/08/20 22 10:43 AM EST documented as of this encounter Care Teams Pump Assembler Relationship Specialty Start Date End Date Ethel Chase DO [address] [place] [address] PCP - General Family Medicine 10/12/13 Vaishnavi Laird PharmD [address] [place] [address] Pharmacist Internal Medicine 02/07/23 [id number] 06/11/24 11/18/24 documented as of this encounter
--- OUTSIDE RECORDS SUMMARY | 2025-03-18 12:29 | XMS_ITS | Encounter Summary ---
Author Organization [facility] Address [address] [place] [address] Care Team Providers Care Staff Anesthesiologist Name Role Phone Matias Bowling MD Primary Care Provider [phone] Encounter Details Date Type Department Care Team (Late st Contact Info) Description 05/20/2024 Lab Requisition [facility] - Main Lab [address] [place] [address] Matias Bowling MD 38 [facility] [address] [place], [address] Essential (primary) hypertension Social History Tobacco [...] Resul t [facility] [address] [place] [address], [place] [phone] * (ABNORMAL) Complete blood count (05/21/2024 5:43 [...] Resul t [facility] [address] [place] [address], documented in this encounter Visit Diagnoses Diagnosis Essential (primary) hypertension Unspecified essential hypertension documented in this encounter Additional Health Concerns Infection Onset Date Last Indicated Resolved Time Gastrointestinal Rule-Out 04/28/2024 04/27/2024 7:06 PM EDT C. difficile 05/29/2024 05/29/2024 06/22/2024 7:04 PM EDT C. difficile Rule-Out 05/30/2024 05/29/20242024 9:47 AM EDT documented as of this encounter Care Teams Staff Anesthesiologist Relationship Specialty Start Date End Date Matias Bowling MD [address] [place] [address] PCP - General Family Medicine 04/16/24 documented as of this encounter
--- OUTSIDE RECORDS SUMMARY | 2025-03-18 12:29 | XMS_ITS | Encounter Summary ---
Author Organization [facility] Address [address] [place] [address] Care Team Providers Care Channel Cementer Insole Machine Name Role Phone Matias Bowling MD Primary Care Provider Encounter Details Date Type Department Care Team (Late st Contact Info) Description 06/03/2024 Lab Requisition [facility] - Main Lab [address] [place] [address] Matias Bowling MD 38 [facility] 204 [place], [address] Essential (primary) hypertension Social History Tobacco [...] LAB CHEMISTRY METHOD 06/04/2024 11:53 AM EDT [facility] Potassium 4.5 3.5 - 5.5 mmol/L LAB CHEMISTRY METHOD 06/04/2024 11:53 AM EDT [facility] Chloride 102 96 - [...] LAB CHEMISTRY METHOD 06/04/2024 11:53 AM EDT [facility] Total Bilirubin 0.2 0.0 - 1.4 mg/dL LAB CHEMISTRY METHOD 06/04/2024 11:53 AM [facility] Blood Venous blood specimen / Unknown Venipuncture / Unknown 06/04/2024 5:45 AM EDT 06/04/2024 11:02 AM EDT us Matias Bowling MD LAB BLOOD ORDERABLES Final Resul t [facility] [address] [place] [address], [place] [phone] * (ABNORMAL) Complete blood count (06/04/2024 5:45 [...] LAB HEMETOLOGY METHOD 06/04/2024 11:21 AM EDT [facility] RDW 14.9 11.0 - 15.0 % LAB HEMETOLOGY METHOD 06/04/2024 11:21 AM EDT [facility] Platelets 309 130 - 400 K/mcL LAB HEMETOLOGY METHOD 06/04/2024 11:21 AM EDT [facility] MPV 10.0 7.0 - 11.0 FL LAB HEMETOLOGY METHOD 06/04/2024 11:21 AM EDT [facility] NRBC 0.0 <1.0 % LAB HEMETOLOGY METHOD 06/04/2024 11:21 AM EDT [facility] NRBC Absolute 0.00 <0.10 K/mcL LAB HEMETOLOGY METHOD 06/04/2024 11:21 AM EDT [facility] Blood Venous blood specimen / Unknown Venipuncture / Unknown 06/04/2024 5:45 AM EDT 06/04/2024 11:02 AM EDT us Matias Bowling MD LAB BLOOD ORDERABLES Final Resul t [facility] [address] [place] [address], documented in this encounter Visit Diagnoses Diagnosis Essential (primary) hypertension Unspecified essential hypertension documented in this encounter Additional Health Concerns Infection Onset Date Last Indicated Resolved Time C. difficile 05/29/2024 05/29/2024 06/22/2024 7:04 PM EDT documented as of this encounter Care Teams Channel Cementer Insole Machine Relationship Specialty Start Date End Date Matias Bowling MD 38 [facility] 204 [place] [address] PCP - General Family Medicine 04/16/24 documented as of this encounter
--- OUTSIDE RECORDS SUMMARY | 2025-03-18 12:29 | XMS_ITS | Encounter Summary ---
Author Organization [facility] Address [address] [place] [address] Care Team Providers Care Career And Technology Education Teacher Name Role Phone Matias Bowling MD Primary Care Provider [phone] Encounter Details Date Type Department Care Team (Late st Contact Info) Description 04/16/2024 Lab Requisition [facility] - Main Lab [address] [place] [address] Matias Bowling MD 38 [facility] [address] [place], [address] Essential (primary) hypertension Social History Tobacco [...] LAB CHEMISTRY METHOD 04/16/2024 11:[address] [facility] Potassium 4.2 3.5 - 5.5 mmol/L LAB CHEMISTRY METHOD 04/16/2024 11:[address] [facility] Chloride 103 96 - 110 mmol/L LAB CHEMISTRY METHOD 04/16/2024 11:36 AM [facility] CO2 25 21 - 32 mmol/L LAB CHEMISTRY METHOD 04/16/2024 11:36 AM [facility] Anion Gap 13(H) 3 - 11 LAB CHEMISTRY METHOD 04/16/2024 11:36 AM [facility] Glucose 96 70 - 100 mg/dL LAB CHEMISTRY METHOD 04/16/2024 11:36 AM [facility] BUN 13 5 - 25 mg/dL LAB CHEMISTRY METHOD 04/16/2024 11:36 AM [facility] Creatinine 1.13(H) 0.50 - 1.10 mg/dL LAB CHEMISTRY METHOD 04/16/2024 11:36 AM [facility] eGFR 53(L) >=60 mL/min/1. 73m2 LAB CHEMISTRY METHOD 04/16/2024 11:36 AM [facility] Comment:Calculation based on the Chronic Kidney Disease Epidemiology Collaboration (CKD-EPI) equation refit without adjustment for race. BUN/Creatinine Ratio 11.5 LAB CHEMISTRY METHOD 04/16/2024 11:36 AM [facility] Calcium 9.1 8.5 - 10.5 mg/dL LAB CHEMISTRY METHOD 04/16/2024 11:36 AM [facility] AST (SGOT) 31 10 - 42 unit/L LAB CHEMISTRY METHOD 04/16/2024 11:36 AM [facility] ALT (SGPT) 33 10 - 60 unit/L LAB CHEMISTRY METHOD 04/16/2024 11:36 AM [facility] Alkaline Phosphatase 181(H) 42 - 121 unit/L LAB CHEMISTRY METHOD 04/16/2024 11:36 AM [facility] Total Protein 7.5 6.0 - 8.0 g/dL LAB CHEMISTRY METHOD 04/16/2024 11:36 AM [facility] Albumin 3.3 3.2 - 5.0 g/dL LAB CHEMISTRY METHOD 04/16/2024 11:36 AM [facility] Total Bilirubin 0.4 0.0 - 1.4 mg/dL LAB CHEMISTRY METHOD 04/16/2024 11:36 AM [facility] Blood Venous blood specimen / Unknown Venipuncture / Unknown 04/16/2024 7:33 AM EST 04/16/2024 10:20 AM EST us Matias Bowling MD LAB BLOOD ORDERABLES Final Resul t [facility] [address] [place] [address], * (ABNORMAL) Complete blood count (04/16/2024 7:33 AM EST) WBC 11.5(H) 4.8 - 10.8 K/mcL LAB HEMETOLOGY METHOD 04/16/2024 11:12 AM [facility] RBC 3.70(L) 3.80 - 4.80 M/mcL LAB HEMETOLOGY METHOD 04/16/2024 11:12 AM [facility] Hemoglobin 9.9(L) 11.5 - 16.0 g/dL LAB HEMETOLOGY METHOD 04/16/2024 11:12 AM [facility] Hematocrit 32.1(L) 35.0 - 47.0 % LAB HEMETOLOGY METHOD 04/16/2024 11:12 AM [facility] MCV 87.5 79.0 - 98.0 FL LAB HEMETOLOGY METHOD 04/16/2024 11:12 AM [facility] MCH 27.0 27.0 - 32.0 pcg LAB HEMETOLOGY METHOD 04/16/2024 11:12 AM [facility] MCHC 30.8(L) 32.0 - 37.0 g/dL LAB HEMETOLOGY METHOD 04/16/2024 11:[address] [facility] RDW 14.2 11.0 - 15.0 % LAB HEMETOLOGY METHOD 04/16/2024 11:[address] [facility] Platelets 443(H) 130 - 400 K/mcL LAB HEMETOLOGY METHOD 04/16/2024 11:[address] [facility] MPV 9.8 7.0 - 11.0 FL LAB HEMETOLOGY METHOD 04/16/2024 11:[address] [facility] NRBC 0.0 <1.0 % LAB HEMETOLOGY METHOD 04/16/2024 11:[address] [facility] NRBC Absolute 0.00 <0.10 K/mcL LAB HEMETOLOGY METHOD 04/16/2024 11:12 AM [facility] Blood Venous blood specimen / Unknown Venipuncture / Unknown 04/16/2024 7:33 AM EST 04/16/2024 10:20 AM EST us Matias Bowling MD LAB BLOOD ORDERABLES Final Resul t [facility] [address] [place] [address], documented in this encounter Visit Diagnoses Diagnosis Essential (primary) hypertension Unspecified essential hypertension documented in this encounter Additional Health Concerns Infection Onset Date Last Indicated Resolved Time Gastrointestinal Rule-Out 04/28/2024 04/27/2024 7:06 PM EDT C. difficile 05/29/2024 05/29/2024 06/22/2024 7:04 PM EDT C. difficile Rule-Out 05/30/2024 05/29/20242024 9:47 AM EDT documented as of this encounter Care Teams Career And Technology Education Teacher Relationship Specialty Start Date End Date Matias Bowling MD [address] [place] [address] [address] [place] [id number] PCP - General Family Medicine 04/16/24 documented as of this encounter
--- OUTSIDE RECORDS SUMMARY | 2025-03-18 12:29 | XMS_ITS | Encounter Summary ---
Author Organization [facility] Address [address] [place] [address] Care Team Providers Care Assembly Stock Supervisor Name Role Phone Matias Bowling MD Primary Care Provider [phone] Encounter Details Date Type Department Care Team (Late st Contact Info) Description 05/13/2024 Lab Requisition [facility] - Main Lab [address] [place] [address] Matias Bowling MD 38 [facility] [address] [place], [address] Essential (primary) hypertension Social History Tobacco [...] LAB CHEMISTRY METHOD 05/14/2024 11:24 AM EDT [facility] Potassium 5.2 3.5 - 5.5 mmol/L LAB CHEMISTRY METHOD 05/14/2024 11:24 AM EDT [facility] Chloride 108 96 - 110 mmol/L LAB CHEMISTRY METHOD 05/14/2024 11:24 AM [facility] CO2 25 21 - 32 mmol/L LAB CHEMISTRY METHOD 05/14/2024 11:24 AM [facility] Anion Gap 5 3 - 11 LAB CHEMISTRY METHOD 05/14/2024 11:24 AM [facility] Glucose 132(H) 70 - 100 mg/dL LAB CHEMISTRY METHOD 05/14/2024 11:24 AM [facility] BUN 13 5 - 25 mg/dL LAB CHEMISTRY METHOD 05/14/2024 11:24 AM [facility] Creatinine 1.06 0.50 - 1.10 mg/dL LAB CHEMISTRY METHOD 05/14/2024 11:24 AM [facility] eGFR 57(L) >=60 mL/min/1. 73m2 LAB CHEMISTRY METHOD 05/14/2024 11:24 AM [facility] Comment:Calculation based on the Chronic Kidney Disease Epidemiology Collaboration (CKD-EPI) equation refit without adjustment for race. BUN/Creatinine Ratio 12.3 LAB CHEMISTRY METHOD 05/14/2024 11:24 AM [facility] Calcium 9.6 8.5 - 10.5 mg/dL LAB CHEMISTRY METHOD 05/14/2024 11:24 AM [facility] AST (SGOT) 20 10 - 42 unit/L LAB CHEMISTRY METHOD 05/14/2024 11:24 AM [facility] ALT (SGPT) 28 10 - 60 unit/L LAB CHEMISTRY METHOD 05/14/2024 11:24 AM [facility] Alkaline Phosphatase 160(H) 42 - 121 unit/L LAB CHEMISTRY METHOD 05/14/2024 11:24 AM [facility] Total Protein 6.6 6.0 - 8.0 g/dL LAB CHEMISTRY METHOD 05/14/2024 11:24 AM [facility] Albumin 3.2 3.2 - 5.0 g/dL LAB CHEMISTRY METHOD 05/14/2024 11:24 AM EDT [facility] Total Bilirubin 0.2 0.0 - 1.4 mg/dL LAB CHEMISTRY METHOD 05/14/2024 11:24 AM T [facility] Blood Venous blood specimen / Unknown Venipuncture / Unknown 05/14/2024 6:06 AM EDT 05/14/2024 9:53 AM EDT us Matias Bowling MD LAB BLOOD ORDERABLES Final Resul t [facility] [address] [place] [address], [place] [phone] * (ABNORMAL) Complete blood count (05/14/2024 6:06 AM EDT) WBC 8.8 4.8 - 10.8 K/mcL LAB HEMETOLOGY METHOD 05/14/2024 10:16 AM [facility] RBC 3.50(L) 3.80 - 4.80 M/mcL LAB HEMETOLOGY METHOD 05/14/2024 10:16 AM [facility] Hemoglobin 9.4(L) 11.5 - 16.0 g/dL LAB HEMETOLOGY METHOD 05/14/2024 10:16 AM [facility] Hematocrit 30.4(L) 35.0 - 47.0 % LAB HEMETOLOGY METHOD 05/14/2024 10:16 AM [facility] MCV 85.9 79.0 - 98.0 FL LAB HEMETOLOGY METHOD 05/14/2024 10:16 AM [facility] MCH 26.6(L) 27.0 - 32.0 pcg LAB HEMETOLOGY METHOD 05/14/2024 10:16 AM [facility] MCHC 30.9(L) 32.0 - 37.0 g/dL LAB HEMETOLOGY METHOD 05/14/2024 10:16 AM EDT [facility] RDW 14.6 11.0 - 15.0 % LAB HEMETOLOGY METHOD 05/14/2024 10:16 AM EDT [facility] Platelets 275 130 - 400 K/mcL LAB HEMETOLOGY METHOD 05/14/2024 10:16 AM EDT [facility] MPV 10.1 7.0 - 11.0 FL LAB HEMETOLOGY METHOD 05/14/2024 10:16 AM EDT [facility] NRBC 0.0 <1.0 % LAB HEMETOLOGY METHOD 05/14/2024 10:16 AM EDT [facility] NRBC Absolute 0.00 <0.10 K/mcL LAB HEMETOLOGY METHOD 05/14/2024 10:16 AM EDT [facility] Blood Venous blood specimen / Unknown Venipuncture / Unknown 05/14/2024 6:06 AM EDT 05/14/2024 9:53 AM EDT us Matias Bowling MD LAB BLOOD ORDERABLES Final Resul t [facility] [address] [place] [address], documented in this encounter Visit Diagnoses Diagnosis Essential (primary) hypertension Unspecified essential hypertension documented in this encounter Additional Health Concerns Infection Onset Date Last Indicated Resolved Time Gastrointestinal Rule-Out 04/28/2024 04/27/2024 7:06 PM EDT C. difficile 05/29/2024 05/29/2024 06/22/2024 7:04 PM EDT C. difficile Rule-Out 05/30/2024 05/29/20242024 9:47 AM EDT documented as of this encounter Care Teams Assembly Stock Supervisor Relationship Specialty Start Date End Date Matias Bowling MD [address] [place] [address] PCP - General Family Medicine 04/16/24 documented as of this encounter
--- OUTSIDE RECORDS SUMMARY | 2025-03-18 12:29 | XMS_ITS | Encounter Summary ---
Author Organization [facility] Address [address] [place] [phone] Care Team Providers Care Limnologist Name Role Phone Matias Bowling MD Primary Care Provider [phone] Encounter Details Date Type Department Care Team (Late st Contact Info) Description 04/28/2024 Lab Requisition [facility] - Main Lab [address] [facility] [employer] | mentor | [place] [address] Matias Bowling MD 38 [facility] 204 [facility] [phone] Diarrhea, unspecified Social History Tobacco Use [...] documented as of this encounter Care Teams Limnologist Relationship Specialty Start Date End Date Matias Bowling MD 38 [facility] [address] [place] [address] PCP - General Family Medicine 04/16/24 documented as of this encounter"
== END 2025-02-04 00:01 ==
LOC: CF
PROVIDERS: PCP Family Medicine; Visit Provider Internal Medicine Hypertension Specialist
DX: Z12.31 Encounter for screening mammogram for malignant neoplasm of breast (principal); I12.9 Hypertensive chronic kidney disease with stage 1 through stage 4 chronic kidney disease, or unspecified chronic kidney disease; E11.22 Type 2 diabetes mellitus with diabetic chronic kidney disease; N18.9 Chronic kidney disease, unspecified; D63.8 Anemia in other chronic diseases classified elsewhere; Z79.899 Other long term (current) drug therapy; Z79.4 Long term (current) use of insulin
CPT/HCPCS: 99202

== ENCOUNTER 2025-02-04 12:36 | Outpatient (REF) | payer OTHER, SELFPAY ==
--- NOTE | ~2025-02-04 | MM_ITS ---
EXAMINATION: MM SCREENING DIGITAL BREAST TOMOSYNTHESIS, BILATERAL CLINICAL INFORMATION: Screening. Asymptomatic. COMPARISON: Comparison made to multiple prior, most recent August 06, 2023, and most remote April 09, 2017. TECHNIQUE: Digital breast tomosynthesis is performed in mediolateral oblique and craniocaudal views along with computer-aided detection (CAD). Synthesized 2D images are generated from the tomosynthesis. Best possible images according to technologist notes. FINDINGS: BREAST COMPOSITION: There are scattered areas of fibroglandular density. BILATERAL BREASTS: No significant masses, suspicious calcifications or other abnormalities are seen in either breast. MM/MM tomosynthesis screening BI IMPRESSION: BILATERAL BREASTS: Negative, no mammographic evidence of malignancy. Normal interval follow-up is recommended in 12 months. ASSESSMENT: BI-RADS: Category 1: Negative RECOMMENDATION: Routine annual mammography screening. FOLLOW-UP: 1 year F/U This examination should not preclude the clinical evaluation of a suspicious palpable abnormality. This patient's information was entered into a reminder system with a target due date for their next mammogram. Electronically signed by: Tyler Gay MD 02/04/2025 08:02 PM AUDI
== END 2025-02-04 12:37 | disposition home or self-care (01) ==
LOC: HO.MAMMO 12:36
PROVIDERS: Visit Provider Family Medicine
DX: Z12.31 Encounter for screening mammogram for malignant neoplasm of breast (principal)
CPT/HCPCS: 77063; 77067

== ENCOUNTER → 2025-02-04 12:45 | Outpatient (BNV) | payer OTHER, SELFPAY | PROVIDERS: Visit Provider Radiology Body Imaging | DX: Z12.31 Encounter for screening mammogram for malignant neoplasm of breast (principal) | CPT/HCPCS: 77063; 77067 ==

== ENCOUNTER 2025-02-04 14:57 | Outpatient (AMB) | payer OTHER, SELFPAY ==
--- NOTE | 2025-02-04 15:20 | HO.NEPHOV ---
Vital Signs 02/04/25 15:22 Height 5 ft 3 in Weight 263 lb BMI 46.6 BP 112/80 Blood Pressure Location Lt radial Position Sitting Pulse 92 Pulse Source Pulse Oximeter Pulse Oximetry (%) 95 Oxygen Delivery Method Room Air Intake Visit Reasons: EXT Chronic kidney dz, Insect Control Aide Required: No Accompanied by: Spouse Allergies Iodinated Contrast Media (IV CONTRAST) Allergy (Severe, Verified 02/04/25 15:23) itching, hives morphine (Morphine) Allergy (Intermediate, Verified 02/04/25 15:23) ITCHING, rash tramadol (Ultram) Allergy (Intermediate, Verified 02/04/25 15:23) rash, itching Medication List - Last Reconciled 02/04/25 by Leon Mccrary MD acetaminophen 650 mg (2 x 325 mg) PO Q6H PRN 30 days albuterol sulfate 90 mcg/actuation 2 puffs inhalation Q6H PRN aripiprazole 10 mg PO QAM atorvastatin 20 mg PO BEDTIME baclofen 10 mg PO TID PRN blood sugar diagnostic (FreeStyle Lite Strips) As directed cholecalciferol (vitamin D3) 50 mcg PO QPM clotrimazole-betamethasone 1-0.05 % 1 appl topical BID 7 days docusate sodium 100 mg PO BID 30 days enoxaparin 40 mg (0.4 mL) subcut Q24H 42 days fluticasone propion-salmeterol 115-21 mcg/actuation (Advair HFA) 2 puffs inhalation BID PRN fluticasone propionate 50 mcg/actuation 1 spray intranasal BID furosemide 20 mg PO DAILY gabapentin 600 mg PO BID insulin degludec (Tresiba FlexTouch U-100 insulin) 32 units subcut DAILY isosorbide mononitrate ER 30 mg PO DAILY lancets (TRUEplus Lancets) As directed latanoprost 0.005% 1 drp ophthalmic (eye) BEDTIME levothyroxine 112 mcg PO DAILY lisinopril 2.5 mg PO QAM loratadine 10 mg PO QAM lorazepam 1 mg PO BID PRN metoprolol succinate ER 25 mg PO QAM mirtazapine 15 mg PO BEDTIME ueqnopzlmbny-zumv-ildsh acid 18-400 mg-mcg (Tab-A-Rito Multivitamin w-iron) 1 tab PO QAM oxycodone 5 mg PO Q6H PRN pantoprazole 40 mg PO QAM prazosin 4 mg PO BEDTIME tirzepatide (Mounjaro) mg subcut QWEEK venlafaxine ER 150 mg PO QAM venlafaxine ER 75 mg PO QAM walker Folding Front wheeled walker DURATIO 99 DAYS zolpidem 10 mg PO BEDTIME HPI Comments Details: The patient is a 69-year-old female referred for nephrology consultation regarding chronic kidney disease, hypertension, and diabetes mellitus. Her recent blood tests indicated a eGFR of 49 ml/mt. A kidney ultrasound performed two years ago was reportedly normal. The patient has a long-standing history of diabetes mellitus, for which she takes insulin. Her HbA1c was 7.5 in June, but she believes a recent value was 10. She also has a history of hypertension, managed with lisinopril 2.5 mg for the past six months and metoprolol. The patient reports following a low-salt diet. The patient reports swelling in her legs and has been taking furosemide for about two months. She has a history of arthritis, for which she takes only Tylenol and avoids NSAIDs such as Advil, Aleve, and Motrin. There is a past history of anemia with low iron, but she does not currently take iron supplements. She had kidney stones about five years ago with no recent recurrence and reports no current trouble with urination. Results - Labs: - Kidney function: 49%. - HbA1c: 7.5 in June; a more recent value was reported as 10. - Iron: Noted to be low in the past. - Imaging: - Kidney ultrasound (2 years ago): Normal. [facility] Medical History Arthritis Hypothyroidism Renal calculi Environmental and seasonal allergies Nocturnal hypoxia Abnormal nuclear stress test Diabetes HTN (hypertension) Cardiomyopathy Bilateral nephrolithiasis Retention of urine Acid reflux Surgical History Status post total left knee replacement History of total left knee replacement (TKR) Hx of lithotripsy (2018) History of total right knee replacement (2011) Hx of repair of right rotator cuff (2013) History of cystoscopy Hx of tubal ligation History of hand surgery Family History Brother Breast cancer Social History Household Members: Spouse Household Members Other:: lives w/her grandson Housing: House Are you a primary child care teacher to a significant other at home: Yes (grandson 17 yrs) Do you presently have visiting nurse or other home services: No 75 years or older and lives alone: No Alcohol intake: current Alcohol intake frequency: does not drink Comment: post op left knee, WBAT Patient Tobacco Use Status: Never used Tobacco Advance Directives Date on File: 04/14/24 service: No Current occupational status: disabled Current occupation: rt handed Gender identity: Female Female Reproductive History Menstrual Age of Menarche: 12 Review of Systems Const Denies fever(s) and Denies weight loss Card Denies chest pain Resp Denies cough and Denies hemoptysis GI Denies abdominal pain, Denies diarrhea and Denies nausea Musc Denies back pain Neuro Denies focal weakness Physical Exam Exam Exam: Physical Exam General: Awake. Comfortable. HENT: Neck supple. Mucosa moist. Pulmonary: Lungs aeration equal. No rales. Cardiology: Heart S1-S2 heard. No gallop. Abdomen: Soft. Non tender. Bowel sounds normal. Neurologic: No involuntary movements. No myoclonus. Extremities: Edema present. No rash. Vital Signs: Last Vital Signs Pulse 92 02/04/25 15:22 BP 112/80 02/04/25 15:22 Pulse Ox 95 02/04/25 15:22 Oxygen Delivery Method Room Air 02/04/25 15:22 BMI result Body Mass Index 46.6 Comfortable Obese Neck supple no JVD. Lungs entry equal no rales. Heart S1-S2 heard no gallop or rub. Abdomen soft nontender. Neuro alert awake oriented. No asterixis. Extremities Trace edema. Results Reviewed Nephrology Results: Renal US 01/04/23 Assessment & Plan Assessment & Plan (1) HTN (hypertension): Code(s): I10 - Essential (primary) hypertension Category: Medical (2) CKD (chronic kidney disease): Code(s): N18.9 - Chronic kidney disease, unspecified Category: Medical Plan Plan 1. Chronic Kidney Disease - e GFR 49 ml/mt. Serum Creatinine of 1.09 Relatively stable over 5 years NEphron loss due to age and long standing DM/Obesity - Will order blood tests to re-evaluate kidney function. - The patient was advised on the importance of maintaining good blood pressure control, blood sugar control, and weight management to preserve kidney function. - No repeat kidney ultrasound is planned at this time as a scan from two years prior was normal. No significant proeinuria Would benefit from SGLT-2 inhibitors - Follow-up is scheduled in four weeks. 2. Hypertension - The patient's blood pressure is well-controlled at 112/80 mmHg. - Continue lisinopril 2.5 mg and metoprolol. - The patient was advised to continue a low-salt diet. - Needs weight loss 3. Diabetes Mellitus - The patient reports a recent HbA1c of 10, which indicates poor glycemic control. - The patient was advised to focus on lowering her blood sugar. - She will continue her insulin regimen. 4. Anemia Chronic - The patient has a history of anemia and low iron levels. - Recommended dietary changes, such as eating spinach, or taking an iron supplement to address low iron. Orders: Orders Complete Blood Count no Diff Today I10 - Essential (primary) hypertension, N18.9 - Chronic kidney disease, unspecified Basic Metabolic Panel Today I10 - Essential (primary) hypertension, N18.9 - Chronic kidney disease, unspecified Total Protein Urine Random Today I10 - Essential (primary) hypertension, N18.9 - Chronic kidney disease, unspecified UA and rflx microscopic Today I10 - Essential (primary) hypertension, N18.9 - Chronic kidney disease, unspecified Creatinine Urine Today I10 - Essential (primary) hypertension, N18.9 - Chronic kidney disease, unspecified Coding Level of Care Code New Pt Level 4 (67979) Diagnoses HTN (hypertension) I10 CKD (chronic kidney disease) N18.9
[2025-02-04 15:22] VITALS: BP 112/80; PULSE 92; O2SAT 95; BMI 46.6
--- OUTSIDE RECORDS SUMMARY | 2025-02-04 22:30 | XMS_ITS | Encounter Summary ---
Author Organization [facility] Address [address] [place] [address] Care Team Providers Care Underwriter Solicitation Director Name Role Phone Matias Bowling MD Primary Care Provider [phone] Encounter Details Date Type Department Care Team (Late st Contact Info) Description 05/06/[address] [facility] - Main Lab [address] [place] [address] Matias Bowling MD 38 [facility] [address] [place], [address] Essential (primary) hypertension Social History Tobacco [...] t [facility] [address] [place] [address], [place] [phone] * (ABNORMAL) Complete blood count (05/07/2024 5:12 [...] t [facility] [address] [place] [address], documented in this encounter Visit Diagnoses Diagnosis Essential (primary) hypertension Unspecified essential hypertension documented in this encounter Additional Health Concerns Infection Onset Date Last Indicated Resolved Time Gastrointestinal Rule-Out 04/28/2024 04/27/2024 7:06 PM EDT C. difficile 05/29/2024 05/29/2024 06/22/2024 7:04 PM EDT C. difficile Rule-Out 05/30/2024 05/29/20242024 9:47 AM EDT documented as of this encounter Care Teams Underwriter Solicitation Director Relationship Specialty Start Date End Date Matias Bowling MD 38 [facility] [address] [place] [phone] PCP - General Family Medicine 04/16/24 documented as of this encounter
--- OUTSIDE RECORDS SUMMARY | 2025-02-04 22:30 | XMS_ITS | Clinical Summary ---
Author Organization [facility] Address [address] [facility] [address] [place] [address] Phone Care Team Providers Care Warehouse Production Worker Name Role Phone Ethel Chase Primary [...] MEDICARE REPLACEMENT MEDICARE REPLACEMENT [place] [id number] Care Teams Warehouse Production Worker Relationship Specialty Start Date End Date Salvatore EthelDO [address] [place] [address] PCP - General Family Medicine 12/19/23 Additional Source Comments The information contained in this document represents components of the legal health record. It is not the complete legal health record.[facility]
--- OUTSIDE RECORDS SUMMARY | 2025-02-04 22:30 | XMS_ITS | Encounter Summary ---
Author Organization [employer] Address [address] [place] [address] [address] [place] [address] Care Team Providers Care Highway Design Engineer Name Role Phone Ethel Chase DO Primary Care Provider Vaishnavi Laird PharmD Unavailable Reason for Visit * Reason Comments Med Refill Encounter Details Date Type Department Care Team (Late Contact Info) Description 06/06/2022 Refill [facility] [address] [place] [address] Ethel Chase DO [address] [place] [address] Other chronic pain Social History Tobacco Use [...] Department Care Team (Late Contact Info) Description 02/09/2025 10:30 AM EST Medication Management [address] [address] Vaishnavi Laird PharmD [address] [place] [address] 03/03/2025 9:00 AM EST Clinical Support [address] [address] Suad Wilson RN documented as of this encounter Visit Diagnoses Diagnosis Other chronic pain documented in this encounter Additional Health Concerns Assessment Noted Time PHQ-9 Depression Total Score: 0 02/08/20 10:43 AM EST documented as of this encounter Care Teams Highway Design Engineer Relationship Specialty Start Date End Date Ehtel Chase DO [address] [place] [address] PCP - General Family Medicine 10/12/13 Vaishnavi Laird PharmD [address] [place] [phone] Pharmacist Internal Medicine 02/07/23 [email or web address] 06/11/24 11/18/24 documented as of this encounter
--- OUTSIDE RECORDS SUMMARY | 2025-02-04 22:30 | XMS_ITS | Encounter Summary ---
Author Organization [employer] Address [address] [place] [address] 7t [place] [address] Care Team Providers Care Paster Operator Name Role Phone Ethel Chase DO Primary Care Provider PuVaishnavi thorpe PharmD Unavailable [phone] Reason for Visit * Reason Comments Med Refill Encounter Details Date Type Department Care Team (Late st Contact Info) Description 04/06/2022 Refill [facility] [address] [place] [address] Ethel Chase DO [address] [place] [address] Other chronic pain Social History Tobacco Use [...] Care Team (Late st Contact Info) Description 02/09/2025 10:30 AM EST Medication Management [facility] [address] [place] [address] Puia, Vaishnavi, PharmD [address] [place] [address] 03/03/2025 9:00 AM EST Clinical Support [facility] [address] [place] [address] Suad Wilson, RN documented as of this encounter Visit Diagnoses Diagnosis Other chronic pain documented in this encounter Additional Health Concerns Assessment Noted Time PHQ-9 Depression Total Score: 0 02/08/20 22 10:43 AM EST documented as of this encounter Care Teams Paster Operator Relationship Specialty Start Date End Date Ethel Chase DO [address] [place] [phone] PCP - General Family Medicine 10/12/13 Vaishnavi Laird PharmD [address] [place] [address] Pharmacist Internal Medicine 02/07/23 [id number] 06/11/24 11/18/24 documented as of this encounter
--- OUTSIDE RECORDS SUMMARY | 2025-02-04 22:30 | XMS_ITS | Encounter Summary ---
Author Organization [employer] Address [address] [place] [address] 7t [place] [address] Care Team Providers Care Accounts Adjustable Clerk Name Role Phone Ethel Chase DO Primary Care Provider Vaishnavi Laird PharmD Unavailable Reason for Visit * Reason Comments Med Refill Encounter Details Date Type Department Care Team ([facility] st Contact Info) Description 06/07/2022 Refill [facility] [address] [place] [address] Ethel Chase DO [address] [place] [address] Other chronic pain Social History Tobacco Use [...] Description 02/09/2025 10:30 AM EST Medication Management [address] [address] Vaishnavi Laird PharmD [address] [place] [address] 03/03/2025 9:00 AM EST Clinical Support [address] [address] Suad Wilson RN documented as of this encounter Visit Diagnoses Diagnosis Other chronic pain documented in this encounter Additional Health Concerns Assessment Noted Time PHQ-9 Depression Total Score: 0 02/08/20 10:43 AM EST documented as of this encounter Care Teams Accounts Adjustable Clerk Relationship Specialty Start Date End Date Ethel Chase DO [address] [place] [address] PCP - General Family Medicine 10/12/13 Vaishnavi Laird PharmD [address] [place] [address] Pharmacist Internal Medicine 02/07/23 [id number] 06/11/24 11/18/24 documented as of this encounter
--- OUTSIDE RECORDS SUMMARY | 2025-02-04 22:30 | XMS_ITS | Encounter Summary ---
Author Organization [employer] Address [address] [place] [address] 7t [place] [address] Care Team Providers Care Print Operator Name Role Phone Ethel Chase DO Primary Care Provider [phone] Vaishnavi Laird PharmD Unavailable [phone] Reason for Visit * Reason Onset Date Comments Nurse Triage 09/14/2024 Encounter Details Date Type Department Care Team ([facility] st Contact Info) Description 09/14/2024 Telephone [facility] [address] [place] [address] Ethel Chase DO [address] [place] [address] Nurse Triage Social History Tobacco Use Types [...] Total Score 0 09/17/2024 12:29 PM EDT Agnel Reynoso [place] documented as of this encounter Miscellaneous Notes * Telephone Encounter - Silvia Harley RN - 09/14/2024 4:30 PM EDT Triage call to Milena from [place] [address] [facility] care. Milena wanted to report Pt BP'S have been higher. Ptis asymptomatic. BP today left arm was 148/96 and right arm 145/96. Pt is taking daily imdur 30mg as prescribed. Pt has a scheduled apt 09/17/24 to address high BP. Pt is also asking about referral toPT. Assistant Business Manager advised that this information would be [...] caller accepted this outcome. Contact Milena with [address] care at [phone] documented in this encounter Plan of Treatment Upcoming Encounters Date Type Department Care Team (Late st Contact Info) Description 02/09/2025 10:30 AM EST Medication Management [address] [address] Vaishnavi Laird, BrianD [address] [place] [address] 03/03/2025 9:00 AM EST Clinical Support [address] [address] Suad Wilson RN documented as of this [...] as of this encounter Care Teams Print Operator Relationship Specialty Start Date End Date Ethel Chase DO [address] [place] [address] PCP - General Family Medicine 10/12/13 Vaishnavi Laird, BrianD [address] [place] [address] Pharmacist Internal Medicine 02/07/23 [id number] 06/11/24 11/18/24 documented as of this encounter
--- OUTSIDE RECORDS SUMMARY | 2025-02-04 22:31 | XMS_ITS | Encounter Summary ---
Author Organization [facility] Address [address] [place] [address] Care Team Providers Care Cardiothoracic Icu Rn Name Role Phone Matias Bowling MD Primary Care Provider [phone] Encounter Details Date Type Department Care Team (Late st Contact Info) Description 05/20/[address] [facility] [address] [place] [address] Matias Bowling MD 38 [facility] [address] [place], [address] Essential (primary) hypertension Social History Tobacco [...] LAB CHEMISTRY METHOD 05/21/2024 11:29 AM EDT [facility] Potassium 5.9(H) 3.5 - 5.5 mmol/L LAB CHEMISTRY METHOD 05/21/2024 11:29 AM EDT [facility] Chloride 102 96 [...] LAB CHEMISTRY METHOD 05/21/2024 11:29 AM EDT [facility] Total Bilirubin 0.3 0.0 - 1.4 mg/dL LAB CHEMISTRY METHOD 05/21/2024 11:29 AM EDT [facility] Blood Venous blood specimen / Unknown Venipuncture / Unknown 05/21/2024 5:43 AM EDT 05/21/2024 9:27 AM EDT us Matias Bowling MD LAB BLOOD ORDERABLES Final Resul t [facility] [address] [place] [address], [place] [phone] * (ABNORMAL) Complete blood count (05/21/2024 5:43 AM EDT) WBC 10.3 4.8 - 10.8 K/mcL LAB HEMETOLOGY METHOD 05/21/2024 10:10 AM T [facility] RBC 3.50(L) 3.80 - 4.80 M/mcL LAB HEMETOLOGY METHOD 05/21/2024 10:10 AM [facility] Hemoglobin 9.0(L) 11.5 - 16.0 g/dL LAB HEMETOLOGY METHOD 05/21/2024 10:10 AM T [facility] Hematocrit 30.0(L) 35.0 - 47.0 % LAB HEMETOLOGY METHOD 05/21/2024 10:10 AM EDT [facility] MCV 86.5 79.0 - 98.0 FL LAB HEMETOLOGY METHOD 05/21/2024 10:10 AM [facility] MCH 25.9(L) 27.0 - 32.0 pcg LAB HEMETOLOGY METHOD 05/21/2024 10:10 AM T [facility] MCHC 30.0(L) 32.0 - 37.0 g/dL LAB HEMETOLOGY METHOD 05/21/2024 10:10 AM EDT [facility] RDW 15.1(H) 11.0 - 15.0 % LAB HEMETOLOGY METHOD 05/21/2024 10:10 AM EDT [facility] Platelets 272 130 - 400 K/mcL LAB HEMETOLOGY METHOD 05/21/2024 10:10 AM EDT [facility] MPV 10.2 7.0 - 11.0 FL LAB HEMETOLOGY METHOD 05/21/2024 10:10 AM EDT [facility] NRBC 0.0 <1.0 % LAB HEMETOLOGY METHOD 05/21/2024 10:10 AM EDT [facility] NRBC Absolute 0.00 <0.10 K/mcL LAB HEMETOLOGY METHOD 05/21/2024 10:10 AM EDT [facility] Blood Venous blood specimen / Unknown Venipuncture / Unknown 05/21/2024 5:43 AM EDT 05/21/2024 9:27 AM EDT us Matias Bowling MD LAB BLOOD ORDERABLES Final Resul t [facility] [address] [place] [address], documented in this encounter Visit Diagnoses Diagnosis Essential (primary) hypertension Unspecified essential hypertension documented in this encounter Additional Health Concerns Infection Onset Date Last Indicated Resolved Time Gastrointestinal Rule-Out 04/28/2024 04/27/2024 7:06 PM EDT C. difficile 05/29/2024 05/29/2024 06/22/2024 7:04 PM EDT C. difficile Rule-Out 05/30/2024 05/29/20242024 9:47 AM EDT documented as of this encounter Care Teams Cardiothoracic Icu Rn Relationship Specialty Start Date End Date Matias Bowling MD [address] [place] [address] PCP - General Family Medicine 04/16/24 documented as of this encounter
--- OUTSIDE RECORDS SUMMARY | 2025-02-04 22:31 | XMS_ITS | Encounter Summary ---
Author Organization [facility] Address [address] [place] [address] Care Team Providers Care Inspector Packager Name Role Phone Matias Bowling MD Primary Care Provider [phone] Encounter Details Date Type Department Care Team (Late st Contact Info) Description 04/16/2024 Lab Requisition [facility] - Main Lab [address] [place] [address] Matias Bowling MD 38 [facility] [address] [place], [address] Essential (primary) hypertension Social History Tobacco [...] LAB CHEMISTRY METHOD 04/16/2024 11:36 AM EST [facility] Potassium 4.2 3.5 - 5.5 mmol/L LAB CHEMISTRY METHOD 04/16/2024 11:36 AM EST [facility] Chloride 103 96 - 110 [...] Resul t [facility] [address] [place] [address], * (ABNORMAL) Complete blood count (04/16/2024 7:33 [...] LAB HEMETOLOGY METHOD 04/16/2024 11:12 AM EST [facility] RDW 14.2 11.0 - 15.0 % LAB HEMETOLOGY METHOD 04/16/2024 11:12 AM EST [facility] Platelets 443(H) 130 - 400 K/mcL LAB HEMETOLOGY METHOD 04/16/2024 11:12 AM EST [facility] MPV 9.8 7.0 - 11.0 FL LAB HEMETOLOGY METHOD 04/16/2024 11:12 AM EST [facility] NRBC 0.0 <1.0 % LAB HEMETOLOGY METHOD 04/16/2024 11:12 AM EST [facility] NRBC Absolute 0.00 <0.10 K/mcL LAB HEMETOLOGY METHOD 04/16/2024 11:12 AM [facility] Blood Venous blood specimen / Unknown Venipuncture / Unknown 04/16/2024 7:33 AM EST 04/16/2024 10:20 AM EST us Matias Bowling MD LAB BLOOD ORDERABLES Final Resul t [facility] [address] [place] [address], documented in this encounter Visit Diagnoses Diagnosis Essential (primary) hypertension Unspecified essential hypertension documented in this encounter Additional Health Concerns Infection Onset Date Last Indicated Resolved Time Gastrointestinal Rule-Out 04/28/2024 04/27/2024 7:06 PM EDT C. difficile 05/29/2024 05/29/2024 06/22/2024 7:04 PM EDT C. difficile Rule-Out 05/30/2024 05/29/20242024 9:47 AM EDT documented as of this encounter Care Teams Inspector Packager Relationship Specialty Start Date End Date Matias Bowling MD [address] [place] [address] [address] [place] [address] PCP - General Family Medicine 04/16/24 documented as of this encounter
--- OUTSIDE RECORDS SUMMARY | 2025-02-04 22:31 | XMS_ITS | Encounter Summary ---
Author Organization [employer] Address [address] [place] [address] 7t [place] [address] Care Team Providers Care Rubber Molder Name Role Phone Ethel Chase DO Primary Care Provider [phone] Vaishnavi Laird PharmD Unavailable [phone] Reason for Visit * Reason Onset Date Comments Appointment Request 03/02/2024 Encounter Details Date Type Department Care Team ([facility] st Contact Info) Description 03/02/2024 Telephone [facility] [address] [place] [address] Ethel Chase DO [address] [place] [address] Appointment Request Social History Tobacco Use Types [...] would like to reschedule. Please contact pt: [phone] (Persian) documented in this encounter Plan of Treatment Upcoming Encounters Date Type Department Care Team (Late st Contact Info) Description 02/09/2025 10:30 AM EST Medication Management [facility] MED[facility]INE [address] [place] [address] Vaishnavi Laird PharmD [address] [place] [address] 03/03/2025 9:00 AM EST Clinical Support [facility] [address] [place] [address] Suad Wilson, RN documented as of this [...] documented as of this encounter Care Teams Rubber Molder Relationship Specialty Start Date End Date Ethel Chase DO [address] [place] [address] PCP - General Family Medicine 10/12/13 Vaishnavi Laird PharmD [address] [place] [address] Pharmacist Internal Medicine 02/07/23 [id number] 06/11/24 11/18/24 documented as of this encounter
--- OUTSIDE RECORDS SUMMARY | 2025-02-04 22:31 | XMS_ITS | Data Portability ---
Author Organization [employer] [facility], [facility] Address [address] [place] [address] Care Team Providers Care Human Performance Professor Name Role Phone Unavailable OTHER HIM CCA [...] Assessment and Plan as documented by the Marketing Graphics Specialist. We discussed the diagnostic uncertainty of home [...] e 2 % topical cream 2024 025 [facility], [address] [place] [address], [phone], 08:56:17 Patient TargetsNo targets recorded. Patient InstructionsNo instructions recorded. Reason for Referral None Reported. Medical Equipment None Reported. Allergies Allergen ID Allergen Name Allergen Category Reaction Reaction Severity Criticality Documentation Date Start Date Code Code System Note Provider Name and Address Organization Details Recorded Time 35695 morphine medicatio n Not available Not available Not available 09/03/2024 7052 [facility] 10:35:22 84097 tramadol medicatio n Not available Not available Not available 09/03/2024 84410 RxNorm Not [facility] 10:35:22 19543 Iodinated contrast media (substanc e) medicatio n Not available Not available Not available 09/03/2024 14933 2004 SNOMED [facility] 10:35:22 23523 Non-stero idal anti-infl ammatory agent (substanc e) medicatio n Not available Not available Not available 09/03/2024 54081 5008 SNOMED Not Available [facility] 10:35[facility]22 Medications Name Sig Start [...] Available No t Available FreeStyle Gerard 2 [place] USE DIRECTED EVERY 8 HOURS active Not [...] Available No t Available FreeStyle Gerard 3 [place] USE DIRECTED TO TEST BLOOD SUGAR EVERY [...] Details Last Updated DateTime 5 14 /min 899976. 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 [id number] Health Concerns Section Related Observation LastModified by Organization Detai ls LastModified Time None Recorded Concern Status LastModified by Organization Details LastModified Time None Recorded Advance Directives Directive None Recorded Payers Insurance Date Sequence Insurance Name Policy Number Policy Mccauley Covered Member ID Mccauley Member ID Guarantor Name 09/29/2024 1 [facility] - DOS ON OR AFTER 2022 - DUAL ELIGIBLE - PRISON OPTIONS AND ONE CARE (MEDICARE REPLACEMENT/ADV ANTAGE - HMO) Trish Hunter [id number] Trish Hunter Notes Date Note Type Note [...] ...................... ...................... ...................... ...................... ...................... ...................... ......... Marketing Graphics Specialist Note From Mukund Hunter: Patient alert and [...] full sentences, extremities unremarkable no edema noted. [facility] orders topical antifungal to patient s local pharmacy. Patient reports she l l be able to obtain that medication today. Patient advised to follow up with PCP today. Supportive care, red flags, and patient education discussed. Patient demonstrates understanding of care and plan. Patient given an opportunity to ask questions. ...................... ...................... ...................... ...................... ...................... ...................... ......... [facility] Consulted: Leni Choi ...................... ...................... ...................... ...................... ...................... ...................... ......... Disposition: Fulfilled LENI CHOI MD [address] [facility],[address] [facility], [place], [address], ADITYA ZAPATA 09/03/2024 12:53:02 OBGyn Episode No OBEpisode recorded.
--- OUTSIDE RECORDS SUMMARY | 2025-02-04 22:31 | XMS_ITS | Encounter Summary ---
Author Organization [employer] Address [address] [place] [address] 7t [place] [address] Care Team Providers Care Grocery Caddy Name Role Phone Ethel Chase DO Primary Care Provider PuVaishnavi thorpe PharmD Unavailable [phone] Reason for Visit * Reason Comments Med Refill Encounter Details Date Type Department Care Team ([facility] Contact Info) Description 10/25/2022 Refill [facility] [address] [place] [address] Eun aRy MD [address] [place] [address] Other chronic pain Social History Tobacco Use [...] Upcoming Encounters Date Type Department Care Team ([facility] Contact Info) Description 02/09/2025 10:30 AM EST Medication Management [facility] [address] [place] [address] Puia, Vaishnavi, PharmD [address] [place] [address] 03/03/2025 9:00 AM EST Clinical Support [facility] [address] [place] [address] Suad Wilson, RN documented as of this encounter Visit Diagnoses Diagnosis Other chronic pain documented in this encounter Additional Health Concerns Assessment Noted Time PHQ-9 Depression Total Score: 0 02/08/20 10:43 AM EST documented as of this encounter Care Teams Grocery Caddy Relationship Specialty Start Date End Date E[place] [address] PCP - General Family Medicine 10/12/13 Vaishnavi Laird PharmD [address] [place] [address] Pharmacist Internal Medicine 02/07/23 [id number] 06/11/24 11/18/24 documented as of this encounter
--- OUTSIDE RECORDS SUMMARY | 2025-02-04 22:31 | XMS_ITS | Encounter Summary ---
Author Organization [facility] Address [address] [place] [address] Care Team Providers Care Lead Neurodiagnostic Technologist Name Role Phone Matias Bowling MD Primary Care Provider [phone] Encounter Details Date Type Department Care Team (Late st Contact Info) Description 05/27/2024 Lab Requisition [facility] - Main Lab [address] [place] [address] Matias Bowling MD 38 [facility] [address] [place], [address] Essential (primary) hypertension Social History Tobacco [...] mmol/L LAB CHEMISTRY METHOD 05/28/2024 10:13 AM [facility] CO2 28 21 - 32 mmol/L LAB CHEMISTRY METHOD 05/28/2024 10:13 AM [facility] Anion Gap 6 3 - 11 LAB CHEMISTRY METHOD 05/28/2024 10:13 AM [facility] Glucose 141(H) 70 - 100 mg/dL LAB CHEMISTRY METHOD 05/28/2024 10:13 AM [facility] BUN 13 5 - 25 mg/dL LAB CHEMISTRY METHOD 05/28/2024 10:13 AM [facility] Creatinine 1.21(H) 0.50 - 1.10 mg/dL LAB CHEMISTRY METHOD 05/28/2024 10:13 AM [facility] eGFR 49(L) >=60 mL/min/1. 73m2 LAB CHEMISTRY METHOD 05/28/2024 10:13 AM [facility] Comment:Calculation based on the Chronic Kidney Disease Epidemiology Collaboration (CKD-EPI) equation refit without adjustment for race. BUN/Creatinine Ratio 10.7 LAB CHEMISTRY METHOD 05/28/2024 10:13 AM [facility] Calcium 8.6 8.5 - 10.5 mg/dL LAB CHEMISTRY METHOD 05/28/2024 10:13 AM [facility] AST (SGOT) 12 10 - 42 unit/L LAB CHEMISTRY METHOD 05/28/2024 10:13 AM [facility] ALT (SGPT) 19 10 - 60 unit/L LAB CHEMISTRY METHOD 05/28/2024 10:13 AM [facility] Alkaline Phosphatase 147(H) 42 - 121 unit/L LAB CHEMISTRY METHOD 05/28/2024 10:13 AM [facility] Total Protein 6.3 6.0 - 8.0 g/dL LAB CHEMISTRY METHOD 05/28/2024 10:13 AM [facility] Albumin 3.1(L) 3.2 - 5.0 g/dL LAB CHEMISTRY METHOD 05/28/2024 10:13 AM EDT [facility] Total Bilirubin 0.2 0.0 - 1.4 mg/dL LAB CHEMISTRY METHOD 05/28/2024 10:13 AM [facility] Blood Venous blood specimen / Unknown Venipuncture / Unknown 05/28/2024 5:02 AM EDT 05/28/2024 9:04 AM EDT us Matias Bowling MD LAB BLOOD ORDERABLES Final Resul t [facility] [address] [place] [address], [place] [phone] * (ABNORMAL) Complete blood count (05/28/2024 5:02 AM EDT) WBC 10.3 4.8 - 10.8 K/mcL LAB HEMETOLOGY METHOD 05/28/2024 9:26 AM [facility] RBC 3.30(L) 3.80 - 4.80 M/mcL LAB HEMETOLOGY METHOD 05/28/2024 9:26 AM [facility] Hemoglobin 8.7(L) 11.5 - 16.0 g/dL LAB HEMETOLOGY METHOD 05/28/2024 9:26 AM [facility] Hematocrit 28.7(L) 35.0 - 47.0 % LAB HEMETOLOGY METHOD 05/28/2024 9:26 AM [facility] MCV 87.0 79.0 - 98.0 FL LAB HEMETOLOGY METHOD 05/28/2024 9:26 AM [facility] MCH 26.4(L) 27.0 - 32.0 pcg LAB HEMETOLOGY METHOD 05/28/2024 9:26 AM [facility] MCHC 30.3(L) 32.0 - 37.0 [...] Resul t [facility] [address] [place] [address], documented in this encounter Visit Diagnoses Diagnosis Essential (primary) hypertension Unspecified essential hypertension documented in this encounter Additional Health Concerns Infection Onset Date Last Indicated Resolved Time C. difficile 05/29/2024 05/29/2024 06/22/2024 7:04 PM EDT C. difficile Rule-Out 05/30/2024 05/29/20242024 9:47 AM EDT documented as of this encounter Care Teams Lead Neurodiagnostic Technologist Relationship Specialty Start Date End Date Matias Bowling MD [address] [place] [phone] PCP - General Family Medicine 04/16/24 documented as of this encounter
--- OUTSIDE RECORDS SUMMARY | 2025-02-04 22:31 | XMS_ITS | Encounter Summary ---
Author Organization [facility] Address [address] [place] [address] Care Team Providers Care Logistics Administrator Name Role Phone Matias Bowling MD Primary Care Provider Encounter Details Date Type Department Care Team (Late st Contact Info) Description 06/03/2024 Lab Requisition [facility] - Main Lab [address] [place] [address] Matias Bowling MD 38 [facility] [address] [place], [address] Essential (primary) hypertension Social History Tobacco [...] LAB CHEMISTRY METHOD 06/04/2024 11:53 AM EDT [facility] Potassium 4.5 3.5 - 5.5 mmol/L LAB CHEMISTRY METHOD 06/04/2024 11:53 AM EDT [facility] Chloride 102 96 - 110 mmol/L LAB CHEMISTRY METHOD 06/04/2024 11:53 AM [facility] CO2 29 21 - 32 mmol/L LAB CHEMISTRY METHOD 06/04/2024 11:53 AM [facility] Anion Gap 8 3 - 11 LAB CHEMISTRY METHOD 06/04/2024 11:53 AM [facility] Glucose 159(H) 70 - 100 mg/dL LAB CHEMISTRY METHOD 06/04/2024 11:53 AM [facility] BUN 11 5 - 25 mg/dL LAB CHEMISTRY METHOD 06/04/2024 11:53 AM [facility] Creatinine 1.11(H) 0.50 - 1.10 mg/dL LAB CHEMISTRY METHOD 06/04/2024 11:53 AM [facility] eGFR 54(L) >=60 mL/min/1. 73m2 LAB CHEMISTRY METHOD 06/04/2024 11:53 AM [facility] Comment:Calculation based on the Chronic Kidney Disease Epidemiology Collaboration (CKD-EPI) equation refit without adjustment for race. BUN/Creatinine Ratio 9.9 LAB CHEMISTRY METHOD 06/04/2024 11:53 AM [facility] Calcium 9.0 8.5 - 10.5 mg/dL LAB CHEMISTRY METHOD 06/04/2024 11:53 AM [facility] AST (SGOT) 16 10 - 42 unit/L LAB CHEMISTRY METHOD 06/04/2024 11:53 AM [facility] ALT (SGPT) 17 10 - 60 unit/L LAB CHEMISTRY METHOD 06/04/2024 11:53 AM [facility] Alkaline Phosphatase 144(H) 42 - 121 unit/L LAB CHEMISTRY METHOD 06/04/2024 11:53 AM [facility] Total Protein 6.7 6.0 - 8.0 g/dL LAB CHEMISTRY METHOD 06/04/2024 11:53 AM [facility] Albumin 3.2 3.2 - 5.0 g/dL LAB CHEMISTRY METHOD 06/04/2024 11:53 AM EDT [facility] Total Bilirubin 0.2 0.0 - 1.4 mg/dL LAB CHEMISTRY METHOD 06/04/2024 11:53 AM [facility] Blood Venous blood specimen / Unknown Venipuncture / Unknown 06/04/2024 5:45 AM EDT 06/04/2024 11:02 AM EDT us Matias Bowling MD LAB BLOOD ORDERABLES Final Resul t [facility] [address] [place] [address], [place] [phone] * (ABNORMAL) Complete blood count (06/04/2024 5:45 AM EDT) WBC 12.1(H) 4.8 - 10.8 K/mcL LAB HEMETOLOGY METHOD 06/04/2024 11:21 AM [facility] RBC 3.50(L) 3.80 - 4.80 M/mcL LAB HEMETOLOGY METHOD 06/04/2024 11:21 AM [facility] Hemoglobin 9.1(L) 11.5 - 16.0 g/dL LAB HEMETOLOGY METHOD 06/04/2024 11:21 AM [facility] Hematocrit 29.5(L) 35.0 - 47.0 % LAB HEMETOLOGY METHOD 06/04/2024 11:21 AM [facility] MCV 85.0 79.0 - 98.0 FL LAB HEMETOLOGY METHOD 06/04/2024 11:21 AM [facility] MCH 26.2(L) 27.0 - 32.0 pcg LAB HEMETOLOGY METHOD 06/04/2024 11:21 AM [facility] MCHC 30.8(L) 32.0 - 37.0 g/dL LAB HEMETOLOGY METHOD 06/04/2024 11:21 AM EDT [facility] RDW 14.9 11.0 - 15.0 % LAB HEMETOLOGY METHOD 06/04/2024 11:21 AM EDT [facility] Platelets 309 130 - 400 K/mcL LAB HEMETOLOGY METHOD 06/04/2024 11:21 AM EDT [facility] MPV 10.0 7.0 - 11.0 FL LAB HEMETOLOGY METHOD 06/04/2024 11:21 AM EDT [facility] NRBC 0.0 <1.0 % LAB HEMETOLOGY METHOD 06/04/2024 11:21 AM EDT [facility] NRBC Absolute 0.00 <0.10 K/mcL LAB HEMETOLOGY METHOD 06/04/2024 11:21 AM EDT [facility] Blood Venous blood specimen / Unknown Venipuncture / Unknown 06/04/2024 5:45 AM EDT 06/04/2024 11:02 AM EDT us Matias Bowling MD LAB BLOOD ORDERABLES Final Resul t [facility] [address] [place] [address], documented in this encounter Visit Diagnoses Diagnosis Essential (primary) hypertension Unspecified essential hypertension documented in this encounter Additional Health Concerns Infection Onset Date Last Indicated Resolved Time C. difficile 05/29/2024 05/29/2024 06/22/2024 7:04 PM EDT documented as of this encounter Care Teams Logistics Administrator Relationship Specialty Start Date End Date Matias Bowling MD 38 [facility] [address] [place] [address] PCP - General Family Medicine 04/16/24 documented as of this encounter
--- OUTSIDE RECORDS SUMMARY | 2025-02-04 22:31 | XMS_ITS | Encounter Summary ---
Author Organization [facility] Address [address] [place] [address] Care Team Providers Care Shirt Creaser Name Role Phone Matias Bowling MD Primary Care Provider [phone] Encounter Details Date Type Department Care Team (Late st Contact Info) Description 05/13/2024 Lab Requisition [facility] - Main Lab [address] [place] [address] Matias Bowling MD 38 [facility] [address] [place], [address] Essential (primary) hypertension Social History Tobacco [...] LAB CHEMISTRY METHOD 05/14/2024 11:24 AM EDT [facility] Potassium 5.2 3.5 - 5.5 mmol/L LAB CHEMISTRY METHOD 05/14/2024 11:24 AM EDT [facility] Chloride 108 96 - 110 mmol/L LAB CHEMISTRY METHOD 05/14/2024 11:[address] [facility] CO2 25 21 - 32 mmol/L LAB CHEMISTRY METHOD 05/14/2024 11:[address] [facility] Anion Gap 5 3 - 11 LAB CHEMISTRY METHOD 05/14/2024 11:[address] [facility] Glucose 132(H) 70 - 100 mg/dL LAB CHEMISTRY METHOD 05/14/2024 11:[address] [facility] BUN 13 5 - 25 mg/dL LAB CHEMISTRY METHOD 05/14/2024 11:[address] [facility] Creatinine 1.06 0.50 - 1.10 mg/dL LAB CHEMISTRY METHOD 05/14/2024 11:[address] [facility] eGFR 57(L) >=60 mL/min/1. 73m2 LAB CHEMISTRY METHOD 05/14/2024 11:[address] [facility] Comment:Calculation based on the Chronic Kidney Disease Epidemiology Collaboration (CKD-EPI) equation refit without adjustment for race. BUN/Creatinine Ratio 12.3 LAB CHEMISTRY METHOD 05/14/2024 11:[address] [facility] Calcium 9.6 8.5 - 10.5 mg/dL LAB CHEMISTRY METHOD 05/14/2024 11:[address] [facility] AST (SGOT) 20 10 - 42 unit/L LAB CHEMISTRY METHOD 05/14/2024 11:[address] [facility] ALT (SGPT) 28 10 - 60 unit/L LAB CHEMISTRY METHOD 05/14/2024 11:[address] [facility] Alkaline Phosphatase 160(H) 42 - 121 unit/L LAB CHEMISTRY METHOD 05/14/2024 11:[address] [facility] Total Protein 6.6 6.0 - 8.0 g/dL LAB CHEMISTRY METHOD 05/14/2024 11:[address] [facility] Albumin 3.2 3.2 - 5.0 g/dL LAB CHEMISTRY METHOD 05/14/2024 11:24 AM EDT [facility] Total Bilirubin 0.2 0.0 - 1.4 mg/dL LAB CHEMISTRY METHOD 05/14/2024 11:24 AM T [facility] Blood Venous blood specimen / Unknown Venipuncture / Unknown 05/14/2024 6:06 AM EDT 05/14/2024 9:53 AM EDT us Matias Bowling MD LAB BLOOD ORDERABLES Final Resul t [facility] [address] [place] [address], [place] [phone] * (ABNORMAL) Complete blood count (05/14/2024 6:06 AM EDT) WBC 8.8 4.8 - 10.8 K/mcL LAB HEMETOLOGY METHOD 05/14/2024 10:[address] [facility] RBC 3.50(L) 3.80 - 4.80 M/mcL LAB HEMETOLOGY METHOD 05/14/2024 10:[address] [facility] Hemoglobin 9.4(L) 11.5 - 16.0 g/dL LAB HEMETOLOGY METHOD 05/14/2024 10:[address] [facility] Hematocrit 30.4(L) 35.0 - 47.0 % LAB HEMETOLOGY METHOD 05/14/2024 10:[address] [facility] MCV 85.9 79.0 - 98.0 FL LAB HEMETOLOGY METHOD 05/14/2024 10:[address] [facility] MCH 26.6(L) 27.0 - 32.0 pcg LAB HEMETOLOGY METHOD 05/14/2024 10:[address] [facility] MCHC 30.9(L) 32.0 - 37.0 g/dL LAB HEMETOLOGY METHOD 05/14/2024 10:16 AM EDT [facility] RDW 14.6 11.0 - 15.0 % LAB HEMETOLOGY METHOD 05/14/2024 10:16 AM EDT [facility] Platelets 275 130 - 400 K/mcL LAB HEMETOLOGY METHOD 05/14/2024 10:16 AM EDT [facility] MPV 10.1 7.0 - 11.0 FL LAB HEMETOLOGY METHOD 05/14/2024 10:16 AM EDT [facility] NRBC 0.0 <1.0 % LAB HEMETOLOGY METHOD 05/14/2024 10:16 AM EDT [facility] NRBC Absolute 0.00 <0.10 K/mcL LAB HEMETOLOGY METHOD 05/14/2024 10:16 AM EDT [facility] Blood Venous blood specimen / Unknown Venipuncture / Unknown 05/14/2024 6:06 AM EDT 05/14/2024 9:53 AM EDT us Matias Bowling MD LAB BLOOD ORDERABLES Final Resul t [facility] [address] [place] [address], documented in this encounter Visit Diagnoses Diagnosis Essential (primary) hypertension Unspecified essential hypertension documented in this encounter Additional Health Concerns Infection Onset Date Last Indicated Resolved Time Gastrointestinal Rule-Out 04/28/2024 04/27/2024 7:06 PM EDT C. difficile 05/29/2024 05/29/2024 06/22/2024 7:04 PM EDT C. difficile Rule-Out 05/30/2024 05/29/20242024 9:47 AM EDT documented as of this encounter Care Teams Shirt Creaser Relationship Specialty Start Date End Date Matias Bowling MD [address] [place] [address] PCP - General Family Medicine 04/16/24 documented as of this encounter
--- OUTSIDE RECORDS SUMMARY | 2025-02-04 22:31 | XMS_ITS | Clinical Summary ---
Author Organization [address] Address [address] [place] [address] Phone Care Team Providers Care [place] Name Role Phone Matias Bowling MD Primary Care Provider [phone] Social History Tobacco Use Types Packs/Day Years [...] FLUIDS AND STOOLS ORDER MARGARET Final Result [facility] [address] [place] [address], from Last 3 Months or Most Recently Relevant to Health Maintenance Insurance [facility] MEDIC[facility] Member Subscriber Plan / Payer (Ef fective 2022-Present) Name:Trish Hunter Relation to Subscriber:Self Name:Trish Hunter Payer ID:[id number] Group ID:[id number] Type:Not on file Address: [address] [place] [address] Care Teams [place] Relationship Specialty Start Date End Date Matias Bowling MD [address] [address] PCP - General Family Medicine 04/16/24
--- OUTSIDE RECORDS SUMMARY | 2025-02-04 22:31 | XMS_ITS | Encounter Summary ---
Author Organization [employer] Address [address] [place] [address] [address] [place] [address] Care Team Providers Care Brick Mason Name Role Phone Ethel Chase DO Primary Care Provider [phone] Vaishnavi Laird PharmD Unavailable [phone] Reason for Visit * Reason Comments Med Refill Encounter Details Date Type Department Care Team ([facility] st Contact Info) Description 11/14/2024 Refill [facility] [address] [place] [address] Ethel Chase DO [address] [place] [address] Social History Tobacco Use Types Packs/Day Years [...] Description 02/09/2025 10:30 AM EST Medication Management [address] [address] Puia, Vaishnavi, PharmD [address] [place] [address] 03/03/2025 9:00 AM EST Clinical Support [address] [address] Suad Wilson RN documented as of this [...] as of this encounter Care Teams Brick Mason Relationship Specialty Start Date End Date Ethel Chase DO [address] [place] [address] PCP - General Family Medicine 10/12/13 Vaishnavi Laird, BrianD [address] [place] [address] Pharmacist Internal Medicine 02/07/23 [id number] 06/11/24 11/18/24 documented as of this encounter
--- OUTSIDE RECORDS SUMMARY | 2025-02-04 22:31 | XMS_ITS | Encounter Summary ---
Author Organization [employer] Address [address] [place] [address] 7[address] [place] [address] Care Team Providers Care Jail Manager Name Role Phone Ehtel Chase DO Primary Care Provider [phone] Vaishnavi Laird PharmD Unavailable [phone] Reason for Visit * Reason Onset Date Comments Hospital Follow-up 06/08/2024 Encounter Details Date Type Department Care Team (Late st Contact Info) Description 06/08/2024 Telephone [facility] [address] [place] [address] Ethel Chase DO [address] [place] [address] Hospital Follow-up Social History Tobacco Use Types [...] from pt requesting a HDF appt. Hospital: [facility] Date of admission: 04/10 to [facility] and 04/15 admitted into [facility] Discharge date: 06/04/24 Diagnosed: Left leg fracture post simpson *Send message to [place] Clinical Care Coordinators Contact pt at [phone] documented in this encounter Plan of Treatment Upcoming Encounters Date Type Department Care Team ([facility] st Contact Info) Description 02/09/2025 10:30 AM EST Medication Management [facility] [address] [place] [address] Vaishnavi Laird, PharmD [address] [place] [address] 03/03/2025 9:00 AM EST Clinical Support [facility] [address] [place] [address] Suad Wilson, RN documented as of this [...] documented as of this encounter Care Teams Jail Manager Relationship Specialty Start Date End Date Ethel Chase DO [address] [place] [address] PCP - General Family Medicine 10/12/13 Vaishnavi Laird, PharmD [address] [place] [address] Pharmacist Internal Medicine 02/07/23 [email or web address] 06/11/24 11/18/24 documented as of this encounter
--- OUTSIDE RECORDS SUMMARY | 2025-02-04 22:31 | XMS_ITS | Encounter Summary ---
Author Organization [employer] Address [address] [place] [address] 7[address] [place] [address] Care Team Providers Care International Account Representative Name Role Phone Ethel Chase DO Primary Care Provider Vaishnavi Laird PharmD Unavailable Reason for Visit * Reason Comments Med Refill Encounter Details Date Type Department Care Team ([facility] st Contact Info) Description 03/23/2024 Refill [facility] [address] [place] [address] Ethel Chase DO [address] [place] [address] Other chronic pain Social History Tobacco Use [...] Description 02/09/2025 10:30 AM EST Medication Management [address] [address] Puia, Vaishnavi, PharmD [address] [place] [address] 03/03/2025 9:00 AM EST Clinical Support [address] [address] Suad Wilson RN documented as of this [...] as of this encounter Care Teams International Account Representative Relationship Specialty Start Date End Date Ethel Chase DO [address] [place] [id number] PCP - General Family Medicine 10/12/13 Vaishnavi Laird, Zana [address] [place] [address] Pharmacist Internal Medicine 02/07/23 [id number] 06/11/24 11/18/24 documented as of this encounter
--- OUTSIDE RECORDS SUMMARY | 2025-02-04 22:31 | XMS_ITS | Clinical Summary ---
Author Organization [employer] Address [address] [place] [address] [address] [place] [address] Care Team Providers Care Bone Worker Name Role Phone Ethel Chase Primary Care Provider Vaishnavi Laird PharmD Unavailable [phone] Allergies Active Allergy Reactions Criticality Noted [...] complication, without long-term current use of insulin ([facility]) USE TO TEST BLOOD SUGAR TWICE DAILY 100 each 11 024 Active Ventolin HFA 108 (90 Base) MCG/ACT inhaler INHALE 2 PUFFS BY MOUTH EVERY 4 HOURS NEEDED FOR WHEEZING OR SHORTNESS OF BREATH 18 g 1 Active glucagon (Baqsimi Two Pack) 3 MG/DOSE nasal powderIndications: Type 2 diabetes mellitus without complication, without long-term current use of insulin ([facility]) Administer 3 mg via 1 device [...] complication, without long-term current use of insulin ([facility]) Use to inject insulin 1 times daily 100 each 3 024 Active Alcohol Swabs (Alcohol Prep) 70 % padsIndications:Po mabel controlled diabetes mellitus (HCC) USE DIRECTED BEFORE INSULIN INJECTION AND sensor [...] BY MOUTH EVERY MORNING 90 tablet 3 01/28/20 25 11:55 AM EST Active meclizine (Antivert) 25 MG tablet TAKE [...] EVERY MORNING BEFORE BREAKFAST 90 tablet 3 01/28/20 25 11:55 AM EST 025 Active aspirin (Aspirin Adult Low Dose) 81 MG EC tabletIndications: Type 2 diabetes mellitus without complication, with long-term current use of insulin ([facility]) Take 1 tablet (81 mg) by mouth in the evening. 90 tablet 3 025 2025 Active Continuous Glucose Lot Attendant (FreeStyle Gerard 3 Lyons) deviceIndications: Type 2 diabetes mellitus without complication, with long-term current use of insulin ([facility]) 1 each Once per day. Use as directed for CGM 1 each Active Continuous Glucose Sensor (FreeStyle Gerard 3 Plus Sensor) miscIndications:Ty pe 2 diabetes mellitus without complication, with long-term current use of insulin ([facility]) 1 each every 15 days. Apply 1 every 15 days as directed for CGM 2 each 01/07/20 25 2:32 PM EST Active glucose blood (FreeStyle Precision Angel Test) test stripIndications:T ype 2 diabetes mellitus without complication, with long-term current use of insulin ([facility]) Use to test blood sugar 2 times daily in case of CGM failure or extremes of BG 500 each 11 025 2025 Active naloxone (Narcan) 4 mg/0.1 [...] cholecalciferol VITAMIN D (Vitamin D-3) 50 MCG (1999) tablet TAKE 1 TABLET BY MOUTH EVERY EVENING 90 tablet Active lisinopril 2.5 MG tabletIndications: Essential hypertension Take 1 tablet (2.5 mg) by mouth Once per day. 30 tablet 11 01/28/20 25 11:55 AM EST 2025 Active Advair HFA 115-21 MCG/ACT inhaler [...] by mouth 2 times daily. 60 tablet 5 01/28/20 11:55 AM EST Active insulin degludec (Tresiba FlexTouch) 100 UNIT/ML injectionIndicatio ns:Type 2 diabetes mellitus without complication, without long-term current use of insulin ([facility]) Inject 30 units subQ once daily at bedtime. 15 mL 5 Active Tirzepatide (Mounjaro) 12.5 MG/0.5ML solution auto-injectorIndic ations:Type 2 diabetes mellitus without complication, with long-term current use of insulin ([facility]) Inject 12.5 mg under the skin 1 (one) time per week. 2 mL 11 01/28/20 25 11:55 AM EST Active oxyCODONE-acetamin ophen (Percocet) 7.5-325 MG tabletIndications: Other chronic pain Take 1 tablet by mouth every 6 (six) hours if needed for severe pain for up to 28 days. Do not start before January 15, 2025. 112 tablet 01/16/20 25 12:15 PM EST 025 2024 Active furosemide (Lasix) 20 MG tablet TAKE 1 TABLET BY MOUTH EVERY DAY NEEDED FOR SWELLING 14 tablet 01/30/20 25 1:42 PM EST Active oxyCODONE-acetamin ophen (Percocet) 7.5-325 MG tabletIndications: [...] EVERY DAY NEEDED FOR SWELLING 14 tablet 025 2024 Discontinued(R eorder (will not trigger notification to Pharmacy)) furosemide (Lasix) 20 MG tablet TAKE 1 TABLET BY MOUTH EVERY DAY NEEDED FOR SWELLING 14 tablet 01/16/20 25 12:15 PM EST 025 2024 Discontinued(R eorder (will not trigger notification to Pharmacy)) Active Problems Problem Noted Date Diagnosed Date Stage 3 chronic kidney disease (CMS/HCC) Long-term current use of opiate analgesic 2024 [...] Encounters Date Type Department Care Team Description 02/02/2025 Telephone [facility] [address] [place] [address] Ethel Chase DO Results 01/28/2025 Refill [facility] [address] [place] [address] Ethel Chase DO 01/13/2025 Refill [facility] [address] [facility] [place] [address] Ethel Chase DO Other chronic pain 01/11/2025 Refill [facility] [address] [place] [address] Ethel Chase DO 12/28/[address] [address] Ethel Chase DO 12/28/2024 Travel 12/16/2024 9:15 AM EDT Office Visit [address] [address] Ethel Chase DO Type 2 diabetes mellitus [...] for malignant neoplasm of breast 12/16/[address] [address] Ethel Chase DO Durable Medical Equipment (DME prescription Commode and Shower Chair(CCA SCO)) 12/16/2024 Refill [facility] [address] [place] [address] Ethel Chase DO Other chronic pain 12/16/2024 Travel 12/15/2024 Orders Only [address] [address] Ethel Chase DO Type 2 diabetes mellitus without complication, with long-term current use of insulin (HCC) (Primary Dx) 12/09/2024 Patient Outreach [facility] [address] [place] [address] Ethel Chase DO Pre-visit Planning (SDOH was already completed ) 12/08/[address] [address] Ethel Chase DO Chart Prep 12/03/2024 Telephone [facility] [address] [place] [address] Ethel Chase DO recall 12/03/2024 Telephone [facility] [address] [place] [address] Ethel Chase DO Appointment Request 12/01/2024 9:00 AM EDT Clinical Support [facility] [address] [place] [address] Suad Wilson RN Long-term current use of opiate analgesic (Primary Dx) 12/01/2024 Telephone [facility] [address] [place] [address] Suad Wilson RN Percocet count discrepancy 12/01/2024 Travel 11/20/2024 Refill [facility] [address] [place] [address] Ethel Chase DO Chronic gastroesophageal reflux disease 11/18/2024 Refill [facility] [address] [place] [address] Ethel Chase DO Other chronic pain 11/14/2024 Refill [facility] [address] [place] [address] Ethel Chase DO from Last 3 Months [...] Description 02/09/2025 10:30 AM EST Medication Management [address] [address] Vaishnavi Laird, PharmD [address] [place] [address] 03/03/2025 9:00 AM EST Clinical Support [facility] [address] [place] [id number] Suad Wilson, MARY Health Maintenance Due Date Last Done Comments CT Colonography 1955 FIT DNA/Cologuard 1955 FIT 1955 FOBT 1955 Sigmoidoscopy 1955 Diabetes: Foot Exam 12/29/1965 Eye Exam 12/29/1965 Alcohol/Substance Use Screening 1967 Hepatitis A Vaccines (1 of 2 - Risk 2-dose series) 12/29/1974 Diabetes: Hemoglobin A1C 03/18/2025 025, 10/08/2024, 06/30/2024, Additional history exists SDOH Screening 06/08/2025 06/08/2024 COVID-19 Vaccine ( season) 2025 12/16/2024, 12/26/2023, 01/01/2023, Additional history exists Depression Monitoring 06/16/2025 12/16/2024, 025 Lipid Panel 06/30/2025 06/30/2024, 10/26, 08/24/2022, Additional history exists Diabetes: Urine Protein Screening 10/16/2025 10/16/2024, 03/13/2023, 08/24/2022, Additional history exists Tobacco Screening 12/16/2025 12/16/2024 Pneumococcal Vaccine: 50+ Years (3 of 3 - PCV20 or PCV21) 05/16/2026 05/16/2021, 04/08/2014, 12/11/2004, Additional history exists Mammogram 02/04/2027 02/04/2025, 07/26, 07/03/2022, Additional history exists Colonoscopy 03/03/2029 03/03/2019 Colorectal [...] Component 8.4( 5 9:14 AM EDT) No Puia, Vaishnavi, PharmD Record your blood sugar as directed Result Component No Puia, Vaishnavi, PharmD Help patients manage their type 2 [...] has chronic kidney disease No Petros Knight Weekly blood pressure task Care Plan Weekly blood pressure task No Puia, Vaishnavi, PharmD Weekly blood pressure task Care Plan Weekly blood pressure task No Puia, Vaishnavi, PharmD Patient has chronic kidney disease Care Plan Patient has chronic kidney disease No Puia, Vaishnavi, PharmD Patient has chronic kidney disease Care Plan Patient has chronic kidney disease No Puia, Vaishnavi, PharmD Weekly blood pressure task Care Plan Weekly blood pressure task No Puia, Vaishnavi, PharmD Weekly blood pressure task Care Plan Weekly blood pressure task No Puia, Vaishnavi, PharmD Patient has chronic kidney disease Care Plan Patient has chronic kidney disease No Puia, Vaishnavi, PharmD Patient has chronic kidney disease Care Plan Patient has chronic kidney disease No Puia, Vaishnavi, PharmD Weekly blood pressure task Care Plan Weekly blood pressure task No Alyson Vásquez Weekly blood pressure task Care Plan Weekly blood pressure task No Alyson Vásquez Patient has chronic kidney disease Care Plan Patient has chronic kidney disease No Alyson Vásquez Patient has chronic kidney disease Care Plan Patient has chronic kidney disease No Alyson Vásquez Weekly blood pressure task Care Plan Weekly blood pressure task No Susan Guillaume RN Weekly blood pressure task Care Plan Weekly blood pressure task No Susan Guillaume RN Patient has chronic kidney disease Care Plan Patient has chronic kidney disease No Susan Guillaume RN Patient has chronic kidney disease Care Plan Patient has chronic kidney disease No Susan Guillaume RN Procedures Procedure Name Priority Date/Time Associated Diagnosis Comments BI MAMMOGRAM SCREENING TOMOSYNTHESIS BILATERAL Routine 02/04/2025 12:40 PM EST Encounter for screening mammogram for malignant neoplasm of breast POLYSOMNOGRAM Routine 01/06/2025 Sleep-disordered breathing POCT GLYCATED HEMOGLOBIN, TOTAL Routine 12/16/2024 9:14 AM EDT Type 2 diabetes mellitus without complication, with long-term current use of insulin ([facility]) POCT GLUCOSE Routine 12/16/2024 9:14 AM EDT Type 2 diabetes mellitus without complication, with long-term current use of insulin ([facility]) BD DEXA AXIAL Routine 12/15/2024 1:39 PM EDT Post-menopause POCT LENCHO-14 URINE DRUG SCREEN Routine 12/01/2024 9:04 AM EDT Long-term current use of opiate analgesic ALBUMIN, RANDOM URINE W/CREATININE Routine 10/16/2024 9:15 AM EDT LIPID PANEL, STANDARD Routine 06/30/2024 10:10 AM EDT S/P total knee arthroplasty, left Closed fracture of distal end of left femur, unspecified fracture morphology, initial encounter ([facility]) C. difficile colitis Type 2 diabetes mellitus without complication, without long-term current use of insulin (CMS/HCC) Essential hypertension ZZZ HISTORICAL HEPATITIS C ANTIBODY RFLX Routine 10/31/2019 9:40 AM EDT HM COLONOSCOPY Routine 03/03/2019 from Last 3 Months or Most Recently Relevant to Health Maintenance Results * BI Mammogram Screening Tomosynthesis Bilateral (02/04/2025 12:40 PM EST) Anatomical Region Laterality Modality Breast Bilateral Mammography 02/04/2025 12:4 0 PM EST Narrative 02/04/2025 8:04 PM EST [facility] [address] [place] [address] Mammography Report Signed Patient: Trish Cameron MR#: [id number] : 1955 Acct:[id number] Age/Sex: 69 / F ADM Date: 02/04/25 Loc: HO.MAMMO Attending Dr: Ethel Chase DO Ordering Physician: Ethel Chase DO Results: 1N egative Date of Service: 02/04/25 Follow Up: 1 Year From [facility] Mammogram Procedure(s): MM tomosynthesis screening BI Accession Number(s): [id number] cc: Ethel Chase DO Reason For Exam: screening mammo EXAMINATION: MM SCREENING DIGITAL BREAST TOMOSYNTHESIS, BILATERAL CLINICAL INFORMATION: Screening. Asymptomatic. COMPARISON: Comparison made to multiple prior, most recent August 06, 2023, and most remote April 09, 2017. TECHNIQUE: Digital breast tomosynthesis is performed in mediolateral oblique and craniocaudal views along with computer-aided detection (CAD). Synthesized 2D images are generated from the tomosynthesis. Best possible images according to technologist notes. FINDINGS: BREAST COMPOSITION: There are scattered areas of fibroglandular density. BILATERAL BREASTS: No significant masses, suspicious calcifications or other abnormalities are seen in either breast. MM/MM tomosynthesis screening BI IMPRESSION: BILATERAL BREASTS: Negative, no mammographic evidence of malignancy. Normal interval follow-up is recommended in 12 months. ASSESSMENT: BI-RADS: Category 1: Negative RECOMMENDATION: Routine annual mammography screening. FOLLOW-UP: 1 year F/U This examination should not preclude the clinical evaluation of a suspicious palpable abnormality. This patient's information was entered into a reminder system with a target due date for their next mammogram. Electronically signed by: Tyler Gay MD 02/04/2025 08:02 PM [facility] Dictated By: Tyler Gay MD Signed By: <Electronically signed by Tyler Gay MD in OV> 02/04/252001 DD/ 1240 TD/TT: 02/04/25 1304 Manager Equity: Procedure Note Donotuseinterpreter, Image - 02/04/2025 [facility] [address] [place], [place] [address] Mammography Report Signed Patient: Trish Cameron MMR#: [id number] : 6Acct:[id number] Age/Sex: 69 / FADM Date: 02/04/25 Loc: HO.MAMMO Attending Dr: Ethel Chase DO Ordering Physician: Ethel Chaseults: 1N egative Date of Service: 02/04/25Follow Up: 1 Year From Orig ina Mammogram Procedure(s): MM tomosynthesis screening BI Accession Number(s): [id number] cc: Ethel Chase DO Reason For Exam: screening mammo EXAMINATION: MM SCREENING DIGITAL BREAST TOMOSYNTHESIS, BILATERAL CLINICAL INFORMATION: Screening. Asymptomatic. COMPARISON: Comparison made to multiple prior, most recent August 06, 2023, and most remote April 09, 2017. TECHNIQUE: Digital breast tomosynthesis is performed in mediolateral oblique and craniocaudal views along with computer-aided detection (CAD). Synthesized 2D images are generated from the tomosynthesis. Best possible images according to technologist notes. FINDINGS: BREAST COMPOSITION: There are scattered areas of fibroglandular density. BILATERAL BREASTS: No significant masses, suspicious calcifications or other abnormalities are seen in either breast. MM/MM tomosynthesis screening BI IMPRESSION: BILATERAL BREASTS: Negative, no mammographic evidence of malignancy. Normal interval follow-up is recommended in 12 months. ASSESSMENT: BI-RADS: Category 1: Negative RECOMMENDATION: Routine annual mammography screening. FOLLOW-UP: 1 year F/U This examination should not preclude the clinical evaluation of a suspicious palpable abnormality. This patient's information was entered into a reminder system with a target due date for their next mammogram. Electronically signed by: Tyler Gay MD 02/04/2025 08:02 PM [facility] Dictated By: Tyler Gay MD Signed By: <Electronically signed by Tyler Gay MD in OV> 02/04/252001 DD/ 1240 TD/TT: 02/04/25 1304 Manager Equity: Ethel Chase DO IMG BI PROCEDURES Edited Res ult - Final * Polysomnography (01/06/2025) Ethel Chase DO [facility] ORDERABLES Brittny l Result * (ABNORMAL) POCT Hgb A1c (12/16/2024 9:14 AM EDT) Hemoglobin A1C 8.4(A) 4.0 - 5.7 % QC Media Lot # [id number] Lot# Expiration Date 5,,027 Blood 12/16/2024 9:14 AM EDT Ethel Chase DO POINT OF CARE TEST ENTER/MARGARITA T ORDERABLES Final Result * (ABNORMAL) POCT Glucose (12/16/2024 9:14 AM EDT) Glucose Blood, POC 290(A) 60 - 200 mg/dL QC Media Lot # [id number] Lot# Expiration Date [id number] Blood Capillary blood specimen / Unknown 12/16/2024 9:14 AM EDT Ethel Chase DO POINT OF CARE TEST ENTER/MARGARITA T ORDERABLES Final Result * BD DEXA Axial (12/15/2024 1:39 PM EDT) Anatomical Region Laterality Modality Body Radiographic Christina ging 12/15/2024 1:39 PM EDT Narrative 12/15/2024 1:54 PM EDT [facility] [place] [address] Mammography Report Signed Patient: Trish Cameron MR#: [id number] : 1955 Acct:[id number] Age/Sex: 68 / F ADM Date: 12/15/24 Loc: MIKO Attending Dr: Ethel Chase DO Ordering Physician: Ethel Chase DO Results: Date of Service: 12/15/24 Follow Up: Procedure(s): XR DEXA axial skeleton Accession Number(s): [id number] cc: Ethel Chase DO Reason For Exam: osteoporosis screening EXAMINATION: DXA BONE DENSITY AXIAL HISTORY: osteoporosis screening TECHNIQUE: RainStor Dual energy absorptiometry (DEXA) of the lumbar [...] is a trademark of the [employer] [place] for Metabolic Bone Disease, a World Health Organization (WHO) Collaborating Center. Electronically signed by: Isabella Garcia MD 12/15/2024 01:51 PM EDT RP Dictated By: Isabella Garcia MD Signed By: <Electronically signed by Isabella Garcia MD in OV> 12/15/24 1351 DD/ 1339 TD/TT: 12/15/24 1343 Manager Equity: MATHEW Procedure Note Donotuseinterpreter, Image - [facility] [address] [place] [address] Mammography Report Signed Patient: Trish Cameron [facility]#: [id number] : 6Acct:[id number] Age/Sex: 68 / FADM Date: 12/15/24 Loc: MIKO Attending Dr: Ethel Chase DO Ordering Physician: Ethel Chaseults: Date of Service: 12/15/24Follow Up: Procedure(s): XR DEXA axial skeleton Accession Number(s): [id number] cc: Ethel Chase DO Reason For Exam: osteoporosis screening EXAMINATION: DXA BONE DENSITY AXIAL HISTORY: osteoporosis screening TECHNIQUE: RainStor Dual energy absorptiometry (DEXA) of the lumbar [...] is a trademark of the [employer] [place] for Metabolic Bone Disease, a World Health Organization (WHO) Collaborating Center. Electronically signed by: Isabella Garcia MD 12/15/2024 01:51 PM EDT Dictated By: Isabella Garcia MD Signed By: <Electronically signed by Isabella Garcia MD in OV> 12/15/24 1351 DD/ 1339 TD/TT: 12/15/24 1343 Manager Equity: MATHEW us Ethel Chase DO [facility] [place]XA PROCEDURES Edited Re sult - Final [...] Negative ng/mL Oxycodone Screen, Urine Positive(A) Negative Comment:GROUP MANAGER pt, on Percocet Phencyclidine (PCP), Urine Negative Negative Propoxyphene, Urine Negative Negative Fentanyl, Urine Negative Negative Urine Urine specimen obtained by clean catch procedure / Unknown 12/01/2024 9:04 AM EDT Narrative Suad Wilson RN - 12/01/2024 9:04 AM EDT UTOX cup Lot#[id number] Exp. 12/01/25 Internal Pass Control Ethel Chase DO POINT OF CARE TEST ENTER/MARGARITA T ORDERABLES Final Result * Albumin, Random Urine W/Creatinine (10/16/2024 9:15 AM EDT) Creatinine, Urine 74.63 mg/dL [facility] Microalbumin Urine <5.0 mg/L [facility] Microalbum Creatinine Ratio Ur TNP <30 ug/mg cr [facility] Comment:Unable to calculate albumin/creatinine ratio due to lowmicroalbumin or creatinine result. 10/16/2024 9:15 AM EDT 10/16/2024 11:49 AM EDT Ethel Chase DO LAB URINE ORDERABLES Final R esult [facility] [address], [place] [phone] * Lipid Panel, Standard (06/30/2024 10:10 AM EDT) Triglycerides 126 <150 mg/dL [facility] Comment:Desirable Triglyceri de: less than 150 mg/dLBorderline High Triglyceride 150-199 mg/dLHigh Triglyceride: 200-499 mg/dLVery High Triglyceride: greater than or equal to 5OO mg/dL Cholesterol 113 <200 mg/dL [facility] Comment:Desirable Cholestero l: less than 200 mg/dLBorderline High Cholesterol: 200-239 mg/dLHigh Cholesterol: greater than 239 mg/dL LDL Cholesterol Calculated 46 <100 mg/dL [facility] Comment:Desirable LDL: less than 100 mg/dLNear Optimal/Above Optimal LDL: 110- 129 mg/dLBorderline High LDL: 130-159 mg/dLHigh LDL: 160-189 mg/dLVery High LDL: greater than or equal to 190 mg/dL HDL Cholesterol 42 >40 mg/dL [facility] Comment:Desirable HDL: great er than 40 mg/dL Note: This HDL assay may give artificially low results in patients with liver disease. Blood Venous blood specimen / Unknown 06/30/2024 10:10 AM EDT 06/30/2024 11:19 AM EDT Ethel Chase DO LAB BLOOD ORDERABLES Final R esult Performing Organization Address [facility]/ZIP Co de Phone Number [facility] [address] [place] [address] [phone] * HEPATITIS C ANTIBODY RFLX (10/31/2019 9:40 AM EDT) [facility] HEPATITIS C ANTIBODY NONREACTIVE NONREACTIVE [facility] Comment: Antibodies to HCV not detected; does not exclude early acute HCV infection. 10/31/2019 9:40 AM EDT Ethel Chase DO HISTORICAL/NON ORDERABLE LAB S Final Result Performing Organization Address [facility] Co de Phone Number [facility] [address] [place] [address], * Colonoscopy (03/03/2019) Pathologist [facility] Colonoscopy follow up in 5 years Historical [...] 01/13/2025 Patient has chronic kidney disease 01/13/2025 Weekly blood pressure task 01/25/2025 Weekly blood pressure task 01/25/2025 Patient has chronic kidney disease 01/25/2025 Patient has chronic kidney disease 01/25/2025 Weekly blood pressure task 01/27/2025 Weekly blood pressure task 01/27/2025 Patient has chronic kidney disease 01/27/2025 Patient has chronic kidney disease 01/27/2025 Weekly blood pressure task 01/28/2025 Weekly blood pressure task 01/28/2025 Patient has chronic kidney disease 01/28/2025 Patient has chronic kidney disease 01/28/2025 Weekly blood pressure task 02/02/2025 Weekly blood pressure task 02/02/2025 Patient has chronic kidney disease 02/02/2025 Patient has chronic kidney disease 02/02/2025 [facility] J[place]IGUEL HERRING [id number] Care Teams Bone Worker Relationship Specialty Start Date End Date Ethel Chase DO [address] [place] [address] PCP - General Family Medicine 10/12/13 Vaishnavi Laird PharmD [address] [place] [address] Pharmacist Internal Medicine 02/07/23
--- OUTSIDE RECORDS SUMMARY | 2025-02-04 22:31 | XMS_ITS | Encounter Summary ---
Author Organization [facility] Address [address] [place] [address] Care Team Providers Care Senior Hr Manager Name Role Phone Matias Bowling MD Primary Care Provider [phone] Encounter Details Date Type Department Care Team (Late st Contact Info) Description 05/30/2024 Lab Requisition [facility] - Main Lab [address] [facility] [place] [address] Matias Bowling MD 38 [facility] [address] [place], [address] Diarrhea, unspecified Social History Tobacco Use [...] ORDER MARGARET Final Result Performing Organization Address City/[facility]/ZIP Co de Phone Number [facility] [address] [place] [address], [place] [phone] * Occult blood stool, guaiac (05/29/2024 1:50 PM EDT) Occult Blood, Stool #1 Negative Negative 05/30/2024 9:30 AM EDT [facility] Stool Rectum structure / Unknown Non-blood Collection / Unknown 05/29/2024 1:50 PM EDT 05/30/2024 8:36 AM EDT Matias Bowling MD LAB BODY FLUIDS AND STOOLS ORDER MARGARET Final Result Performing Organization Address [facility]/ZIP Co de Phone Number [facility] [address] [place] [address], [place] [phone] * Ova and parasite examination (05/29/2024 1:50 [...] MARGARET Final Result Performing Organization Address [facility]/ZIP Co de Phone Number [facility] [address] [place] [address], [place] [phone] * Clostridium difficile toxin (05/29/2024 1:50 PM EDT) C difficile Toxins A+B, EIA 05/30/2024 9:47 AM EDT [facility] Comment:Refer to C. difficil e PCR assay for results. Stool Rectum structure / Unknown Non-blood Collection / Unknown 05/29/2024 1:50 PM EDT 05/30/2024 8:36 AM EDT Matias Bowling MD LAB MICROBIOLOGY - GENERAL ORDER MARGARET Final Result Performing Organization Address [facility] Co de Phone Number [facility] [address] [place] [address], [place] [phone] documented in this encounter Visit Diagnoses Diagnosis Diarrhea, unspecified documented in this encounter Additional Health Concerns Infection Onset Date Last Indicated Resolved Time C. difficile 05/29/2024 05/29/2024 06/22/2024 7:04 PM EDT C. difficile Rule-Out 05/30/2024 05/29/20242024 9:47 AM EDT documented as of this encounter Care Teams Senior Hr Manager Relationship Specialty Start Date End Date Matias Bowling MD [address] [place] [address] [address] [place] [address] PCP - General Family Medicine 04/16/24 documented as of this encounter
--- OUTSIDE RECORDS SUMMARY | 2025-02-04 22:31 | XMS_ITS | Encounter Summary ---
Author Organization [employer] Address [address] [place] [address] [address] [place] [address] Care Team Providers Care Cardiology Consultants Name Role Phone Ethel Chase DO Primary Care Provider [phone] Vaishnavi Laird PharmD Unavailable [phone] Reason for Visit * Reason Onset Date Comments Results 02/02/2025 Encounter Details Date Type Department Care Team ([facility] st Contact Info) Description 02/02/2025 Telephone [facility] [address] [place] [address] Ethel Chase DO [address] [place] [address] Results Social History Tobacco Use Types Packs/Day Years [...] Telephone Encounter - Susan Guillaume RN - 02/02/2025 4:00 PM EST RN reviewed recent sleep study results with PCP from 01/06/25. PCP will refer patient to sleep medicine for further evaluation treatment discussion (patient with mild nocturnal hypoxemia with O2 sat <88% for 11 minutes). TC placed to patient [phone] in regards to above message. Patient verbalized understanding andis aware she will receive a letter in the mail with appointment date and time or a call from the office. Patient did not have any further questions. Patient to f/u PRN. * Telephone Encounter - Susan Guillaume RN - 02/02/2025 11:28 AM EST RN reviewed recent sleep study results with PCP from 01/06/25. PCP will refer patient to sleep medicine for further evaluation treatment discussion (patient with mild nocturnal hypoxemia with O2 sat <88% for 11 minutes). TC placed to patient [phone] in regards to above message however no answer, RN left VM requesting CB to red team nurses. TC placed to [phone] however automated recording We're sorry your call did not go thru . TC placed to son [phone] however call went to , RN left requesting CB to red team nurses. RN will re-attempt in PM. documented in this encounter Plan of Treatment Upcoming Encounters Date Type Department Care Team (Late st Contact Info) Description 02/09/2025 10:30 AM EST Medication Management [address] [address] PuiaChristoferVaishnavi, PharmD [address] [place] [address] 03/03/2025 9:00 AM EST Clinical Support [address] [address] Suad Wilson RN documented as of this encounter Goals Goal Patient Goal Type Associated Problems Recent Progress Patient-Stated? Author Hemoglobin A1c < 7 Result Component 8.4( 9:14 AM EDT) No Sisi Vaishnavi, PharmD Record your blood sugar as [...] Plan Patient has chronic kidney disease No Puia Vaishnavi, PharmD Patient has chronic kidney disease Care Plan Patient has chronic kidney disease No Puia, Vaishnavi, PharmD Weekly blood pressure task Care Plan Weekly blood pressure task No Puia, Vaishnavi, PharmD Weekly blood pressure task Care Plan Weekly blood pressure task No Puia Vaishnavi, PharmD Patient has chronic kidney disease [...] Plan Weekly blood pressure task No Susan Guillaume, MARY Patient has chronic kidney disease Care Plan Patient has chronic kidney disease No Susan Guillaume, MARY Patient has chronic kidney disease Care Plan Patient has chronic kidney disease No Susan Guillaume RN documented as of this encounter Visit [...] 02/02/2025 Patient has chronic kidney disease 02/02/2025 Assessment Noted Time PHQ-9 Depression Total Score: 10 025 9:16 AM EDT documented as of this encounter Care Teams Cardiology Consultants Relationship Specialty Start Date End Date Ethel Chase DO [address] [place] [address] PCP - General Family Medicine 10/12/13 Vaishnavi Laird PharmD [address] [place] [address] Pharmacist Internal Medicine 02/07/23 documented as of this encounter
--- OUTSIDE RECORDS SUMMARY | 2025-02-04 22:31 | XMS_ITS | Encounter Summary ---
Author Organization [facility] Address [address] [place] [address] Care Team Providers Care Tank Terminal Gauger Name Role Phone Matias Bowling MD Primary Care Provider [phone] Encounter Details Date Type Department Care Team (Late st Contact Info) Description 04/23/2024 Lab Requisition [facility] - Main Lab [address] [place] [address] Matias Bowling MD 38 [facility] [address] [place], [address] Essential (primary) hypertension Social History Tobacco [...] mmol/L LAB CHEMISTRY METHOD 04/23/2024 10:18 AM [facility] CO2 25 21 - 32 mmol/L LAB CHEMISTRY METHOD 04/23/2024 10:18 AM [facility] Anion Gap 9 3 - 11 LAB CHEMISTRY METHOD 04/23/2024 10:18 AM [facility] Glucose 114(H) 70 - 100 mg/dL LAB CHEMISTRY METHOD 04/23/2024 10:18 AM [facility] BUN 17 5 - 25 mg/dL LAB CHEMISTRY METHOD 04/23/2024 10:18 AM [facility] Creatinine 1.01 0.50 - 1.10 mg/dL LAB CHEMISTRY METHOD 04/23/2024 10:18 AM [facility] eGFR 61 >=60 mL/min/1. 73m2 LAB CHEMISTRY METHOD 04/23/2024 10:18 AM [facility] Comment:Calculation based on the Chronic Kidney Disease Epidemiology Collaboration (CKD-EPI) equation refit without adjustment for race. BUN/Creatinine Ratio 16.8 LAB CHEMISTRY METHOD 04/23/2024 10:18 AM [facility] Calcium 9.4 8.5 - 10.5 mg/dL LAB CHEMISTRY METHOD 04/23/2024 10:18 AM [facility] AST (SGOT) 18 10 - 42 unit/L LAB CHEMISTRY METHOD 04/23/2024 10:18 AM [facility] ALT (SGPT) 25 10 - 60 unit/L LAB CHEMISTRY METHOD 04/23/2024 10:18 AM [facility] Alkaline Phosphatase 165(H) 42 - 121 unit/L LAB CHEMISTRY METHOD 04/23/2024 10:18 AM [facility] Total Protein 7.0 6.0 - 8.0 g/dL LAB CHEMISTRY METHOD 04/23/2024 10:18 AM [facility] Albumin 3.3 3.2 - 5.0 g/dL LAB CHEMISTRY METHOD 04/23/2024 10:18 AM [facility] Total Bilirubin 0.4 0.0 - 1.4 mg/dL LAB CHEMISTRY METHOD 04/23/2024 10:18 AM [facility] Blood Venous blood specimen / Unknown Venipuncture / Unknown 04/23/2024 5:04 AM EST 04/23/2024 8:47 AM EST us Matias Bowling MD LAB BLOOD ORDERABLES Final Resul t [facility] [address] [place] [address], * (ABNORMAL) Complete blood count (04/23/2024 5:04 AM EST) WBC 8.9 4.8 - 10.8 K/mcL LAB HEMETOLOGY METHOD 04/23/2024 9:28 AM [facility] RBC 3.40(L) 3.80 - 4.80 M/mcL LAB HEMETOLOGY METHOD 04/23/2024 9:28 AM [facility] Hemoglobin 9.2(L) 11.5 - 16.0 g/dL LAB HEMETOLOGY METHOD 04/23/2024 9:28 AM [facility] Hematocrit 30.3(L) 35.0 - 47.0 % LAB HEMETOLOGY METHOD 04/23/2024 9:28 AM [facility] MCV 88.1 79.0 - 98.0 FL LAB HEMETOLOGY METHOD 04/23/2024 9:28 AM [facility] MCH 26.7(L) 27.0 - 32.0 pcg LAB HEMETOLOGY METHOD 04/23/2024 9:28 AM [facility] MCHC 30.4(L) 32.0 - 37.0 g/dL LAB HEMETOLOGY METHOD 04/23/2024 9:28 AM EST [facility] RDW 14.6 11.0 - 15.0 % LAB HEMETOLOGY METHOD 04/23/2024 9:28 AM [facility] Platelets 333 130 - 400 K/mcL LAB HEMETOLOGY METHOD 04/23/2024 9:28 AM [facility] MPV 9.8 7.0 - 11.0 FL LAB HEMETOLOGY METHOD 04/23/2024 9:28 AM [facility] NRBC 0.0 <1.0 % LAB HEMETOLOGY METHOD 04/23/2024 9:28 AM [facility] NRBC Absolute 0.00 <0.10 K/mcL LAB HEMETOLOGY METHOD 04/23/2024 9:28 AM [facility] Blood Venous blood specimen / Unknown Venipuncture / Unknown 04/23/2024 5:04 AM EST 04/23/2024 8:47 AM EST us Matias Bowling MD LAB BLOOD ORDERABLES Final Resul t [facility] [address] [place] [address], documented in this encounter Visit Diagnoses Diagnosis Essential (primary) hypertension Unspecified essential hypertension documented in this encounter Additional Health Concerns Infection Onset Date Last Indicated Resolved Time Gastrointestinal Rule-Out 04/28/2024 04/27/2024 7:06 PM EDT C. difficile 05/29/2024 05/29/2024 06/22/2024 7:04 PM EDT C. difficile Rule-Out 05/30/2024 05/29/20242024 9:47 AM EDT documented as of this encounter Care Teams Tank Terminal Gauger Relationship Specialty Start Date End Date Matias Bowling MD [address] [place] [phone] PCP - General Family Medicine 04/16/24 documented as of this encounter
--- OUTSIDE RECORDS SUMMARY | 2025-02-04 22:31 | XMS_ITS | Encounter Summary ---
Author Organization [employer] Address [address] [place] [address] 7[address] [place] [address] Care Team Providers Care [employer] Name Role Phone Ethel Chase DO Primary Care Provider [phone] Vaishnavi Laidr PharmD Unavailable [phone] Reason for Visit * Reason Onset Date Comments Pre-Op 03/23/2024 Encounter Details Date Type Department Care Team ([facility] st Contact Info) Description 03/23/2024 Telephone [facility] [address] [place] [address] Ethel Chase DO [address] [place] [address] Pre-Op Social History Tobacco Use Types Packs/Day [...] Yes Surgeon's name: Dave Oro Facility name: [facility] Orthopedic Surgeon's office number: [phone] Surgeon's office fax number: [phone] Contact name (person you spoke with): Trish - Pt requesting reschedule 02/13 appt. Last office note from surgeon requested: Yes Send Message to Venus Crowell documented in this encounter Plan of Treatment Upcoming Encounters Date Type Department Care Team (Late st Contact Info) Description 02/09/2025 10:30 AM EST Medication Management [address] [address] Vaishnavi Laird PharmD [address] [place] [address] 03/03/2025 9:00 AM EST Clinical Support [address] [address] Suad Wilson, MARY documented as of this [...] documented as of this encounter Care Teams [employer] Relationship Specialty Start Date End Date Ethel Chase DO [address] [place] [address] PCP - General Family Medicine 10/12/13 Vaishnavi Laird PharmD [address] [place] [address] Pharmacist Internal Medicine 02/07/23 [id number] 06/11/24 11/18/24 documented as of this encounter
--- OUTSIDE RECORDS SUMMARY | 2025-02-04 22:31 | XMS_ITS | Encounter Summary ---
Author Organization [facility] Address [address] [place] [address] Care Team Providers Care Economics Department Chair Name Role Phone Matias Bowling MD Primary Care Provider [phone] Encounter Details Date Type Department Care Team (Late st Contact Info) Description 05/22/2024 Lab Requisition [facility] - Main Lab [address] [place] [address] Matias Bowling MD 38 [facility] [address] [place], [address] 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 classified elsewhere (CMS/HCC [...] LAB CHEMISTRY METHOD 05/22/2024 11:37 AM EDT [facility] ([facility]) [facility] Potassium 5.2 3.5 - 5.5 mmol/L LAB CHEMISTRY METHOD 05/22/2024 11:37 AM [facility] Chloride 102 96 - 110 mmol/L LAB CHEMISTRY METHOD 05/22/2024 11:37 AM [facility] CO2 25 21 - 32 mmol/L LAB CHEMISTRY METHOD 05/22/2024 11:37 AM [facility] Anion Gap 7 3 - 11 LAB CHEMISTRY METHOD 05/22/2024 11:37 AM [facility] Glucose 163(H) 70 - 100 mg/dL LAB CHEMISTRY METHOD 05/22/2024 11:37 AM [facility] BUN 18 5 - 25 mg/dL LAB CHEMISTRY METHOD 05/22/2024 11:37 AM [facility] Creatinine 1.65(H) 0.50 - 1.10 mg/dL LAB CHEMISTRY METHOD 05/22/2024 11:37 AM [facility] eGFR 34(L) >=60 mL/min/1. 73m2 LAB CHEMISTRY METHOD 05/22/2024 11:37 AM [facility] Comment:Calculation based on the Chronic Kidney Disease Epidemiology Collaboration (CKD-EPI) equation refit without adjustment for race. BUN/Creatinine Ratio 10.9 LAB CHEMISTRY METHOD 05/22/2024 11:37 AM [facility] Calcium 8.8 8.5 - 10.5 mg/dL LAB CHEMISTRY METHOD 05/22/2024 11:37 AM [facility] Blood Venous blood specimen / Unknown Venipuncture / Unknown 05/22/2024 8:23 AM EDT 05/22/2024 10:31 AM EDT us Matias Bowling MD LAB BLOOD ORDERABLES Final Resul t [facility] [address] [place] [address], * (ABNORMAL) Complete blood count (05/22/2024 8:23 AM EDT) [facility] WBC 9.8 4.8 - 10.8 K/mcL LAB HEMETOLOGY METHOD 05/22/2024 11:21 AM [facility] RBC 3.60(L) 3.80 - 4.80 M/mcL LAB HEMETOLOGY METHOD 05/22/2024 11:21 AM [facility] Hemoglobin 9.5(L) 11.5 - 16.0 g/dL LAB HEMETOLOGY METHOD 05/22/2024 11:21 AM [facility] Hematocrit 31.2(L) 35.0 - 47.0 % LAB HEMETOLOGY METHOD 05/22/2024 11:21 AM [facility] MCV 86.4 79.0 - 98.0 FL LAB HEMETOLOGY METHOD 05/22/2024 11:21 AM [facility] MCH 26.3(L) 27.0 - 32.0 pcg LAB HEMETOLOGY METHOD 05/22/2024 11:21 AM [facility] MCHC 30.4(L) 32.0 - 37.0 g/dL LAB HEMETOLOGY METHOD 05/22/2024 11:21 AM [facility] RDW 14.7 11.0 - 15.0 % LAB HEMETOLOGY METHOD 05/22/2024 11:21 AM [facility] Platelets 278 130 - 400 K/mcL LAB HEMETOLOGY METHOD 05/22/2024 11:21 AM [facility] MPV 10.5 7.0 - 11.0 FL LAB HEMETOLOGY METHOD 05/22/2024 11:21 AM [facility] NRBC 0.0 <1.0 % LAB HEMETOLOGY METHOD 05/22/2024 11:21 AM [facility] NRBC Absolute 0.00 <0.10 K/mcL LAB HEMETOLOGY METHOD 05/22/2024 11:21 AM EDT [facility] Blood Venous blood specimen / Unknown Venipuncture / Unknown 05/22/2024 8:23 AM EDT 05/22/2024 10:31 AM EDT us Matias Bowling MD LAB BLOOD ORDERABLES Final Resul t [facility] [address] [place] [address], documented in this encounter Visit Diagnoses Diagnosis [...] Start Date End Date Matias Bowling MD [address] [place] [address] [address] [place] [address] PCP - General Family Medicine 04/16/24 documented as of this encounter
--- OUTSIDE RECORDS SUMMARY | 2025-02-04 22:31 | XMS_ITS | Encounter Summary ---
Author Organization [employer] Address [address] [place] [address] 7[address] [place] [address] Care Team Providers Care Geological Sample Tester Name Role Phone Ethel Chase Primary Care Provider PuVaishnavi thorpe PharmD Unavailable [phone] Reason for Visit * Reason Comments Med Refill Encounter Details Date Type Department Care Team (Late st Contact Info) Description 08/10/2022 Refill [facility] [address] [place] [address] [facility] [address] [place] [address] Social History Tobacco Use Types Packs/Day Years [...] Description 02/09/2025 10:30 AM EST Medication Management [facility] [address] [place] [address] Puia, Vaishnavi, PharmD [address] [place] [address] 03/03/2025 9:00 AM EST Clinical Support [facility] [address] [place] [address] Suad Wilson, RN documented as of this encounter Visit Diagnoses Not on filedocumented in this encounter Additional Health Concerns Assessment Noted Time PHQ-9 Depression Total Score: 0 02/08/20 22 10:43 AM EST documented as of this encounter Care Teams Geological Sample Tester Relationship Specialty Start Date End Date Ethel Chase DO [address] [place] [address] PCP - General Family Medicine 10/12/13 Vaishnavi Laird, Zana [address] [place] [address] Pharmacist Internal Medicine 02/07/23 [id number] 06/11/24 11/18/24 documented as of this encounter
--- OUTSIDE RECORDS SUMMARY | 2025-02-04 22:31 | XMS_ITS | Encounter Summary ---
Author Organization [facility] Address [address] [place] [address] Care Team Providers Care Action Finisher Name Role Phone Matias Bowling MD Primary Care Provider [phone] Encounter Details Date Type Department Care Team (Late st Contact Info) Description 04/30/2024 Lab Requisition [facility] - Main Lab [address] [place] [address] Matias Bowling MD 38 [facility] [address] [place], [address] Essential (primary) hypertension Social History Tobacco [...] LAB CHEMISTRY METHOD 05/01/2024 12:26 PM EST [facility] Potassium 4.7 3.5 - 5.5 mmol/L LAB CHEMISTRY METHOD 05/01/2024 12:26 PM EST [facility] Chloride 110 96 - 110 mmol/L LAB CHEMISTRY METHOD 05/01/2024 12:26 PM [facility] CO2 21 21 - 32 mmol/L LAB CHEMISTRY METHOD 05/01/2024 12:26 PM [facility] Anion Gap 11 3 - 11 LAB CHEMISTRY METHOD 05/01/2024 12:26 PM [facility] Glucose 138(H) 70 - 100 mg/dL LAB CHEMISTRY METHOD 05/01/2024 12:26 PM [facility] BUN 18 5 - 25 mg/dL LAB CHEMISTRY METHOD 05/01/2024 12:26 PM [facility] Creatinine 1.07 0.50 - 1.10 mg/dL LAB CHEMISTRY METHOD 05/01/2024 12:26 PM [facility] eGFR 57(L) >=60 mL/min/1. 73m2 LAB CHEMISTRY METHOD 05/01/2024 12:26 PM [facility] Comment:Calculation based on the Chronic Kidney Disease Epidemiology Collaboration (CKD-EPI) equation refit without adjustment for race. BUN/Creatinine Ratio 16.8 LAB CHEMISTRY METHOD 05/01/2024 12:26 PM [facility] Calcium 9.3 8.5 - 10.5 mg/dL LAB CHEMISTRY METHOD 05/01/2024 12:26 PM [facility] Blood Venous blood specimen / Unknown Venipuncture / Unknown 05/01/2024 4:57 AM EST 05/01/2024 11:00 AM EST us Matias Bowling MD LAB BLOOD ORDERABLES Final Resul t [facility] [address] [place] [address], * (ABNORMAL) Complete blood count (05/01/2024 4:57 AM EST) WBC 9.9 4.8 - 10.8 K/mcL LAB HEMETOLOGY METHOD 05/01/2024 11:34 AM [facility] RBC 3.50(L) 3.80 - 4.80 M/mcL LAB HEMETOLOGY METHOD 05/01/2024 11:34 AM [facility] Hemoglobin 9.3(L) 11.5 - 16.0 g/dL LAB HEMETOLOGY METHOD 05/01/2024 11:34 AM [facility] Hematocrit 31.7(L) 35.0 - 47.0 % LAB HEMETOLOGY METHOD 05/01/2024 11:34 AM [facility] MCV 90.3 79.0 - 98.0 FL LAB HEMETOLOGY METHOD 05/01/2024 11:34 AM [facility] MCH 26.5(L) 27.0 - 32.0 pcg LAB HEMETOLOGY METHOD 05/01/2024 11:34 AM [facility] MCHC 29.3(L) 32.0 - 37.0 g/dL LAB HEMETOLOGY METHOD 05/01/2024 11:34 AM [facility] RDW 14.7 11.0 - 15.0 % LAB HEMETOLOGY METHOD 05/01/2024 11:34 AM [facility] Platelets 312 130 - 400 K/mcL LAB HEMETOLOGY METHOD 05/01/2024 11:34 AM [facility] MPV 10.3 7.0 - 11.0 FL LAB HEMETOLOGY METHOD 05/01/2024 11:34 AM [facility] NRBC 0.0 <1.0 % LAB HEMETOLOGY METHOD 05/01/2024 11:34 AM [facility] NRBC Absolute 0.00 <0.10 K/mcL LAB HEMETOLOGY METHOD 05/01/2024 11:34 AM [facility] Blood Venous blood specimen / Unknown Venipuncture / Unknown 05/01/2024 4:57 AM EST 05/01/2024 11:00 AM EST us Matias Bowling MD LAB BLOOD ORDERABLES Final Resul t [facility] [address] [place] [address], documented in this encounter Visit Diagnoses Diagnosis Essential (primary) hypertension Unspecified essential hypertension documented in this encounter Additional Health Concerns Infection Onset Date Last Indicated Resolved Time Gastrointestinal Rule-Out 04/28/2024 04/27/2024 7:06 PM EDT C. difficile 05/29/2024 05/29/2024 06/22/2024 7:04 PM EDT C. difficile Rule-Out 05/30/2024 05/29/20242024 9:47 AM EDT documented as of this encounter Care Teams Action Finisher Relationship Specialty Start Date End Date Matias Bowling MD [address] [place] [phone] PCP - General Family Medicine 04/16/24 documented as of this encounter
--- OUTSIDE RECORDS SUMMARY | 2025-02-04 22:31 | XMS_ITS | Encounter Summary ---
Author Organization [employer] Address [address] [place] [address] 7t [place] [address] Care Team Providers Care Arrow Point Attacher Name Role Phone Ethel Chase DO Primary Care Provider [phone] Vaishnavi Laird PharmD Unavailable [phone] Reason for Visit * Reason Onset Date Comments Nurse Triage 04/16/2023 Encounter Details Date Type Department Care Team ([facility] st Contact Info) Description 04/16/2023 Telephone [facility] [address] [place] [address] Ethel Chase DO 230 [place] [address] Nurse Triage Social History Tobacco Use Types [...] HOSPITAL see below. Pt answers call , [place] Compensation Vice President [place] [id number], but, Pt is speaking emirati well. Pt reports only high BS was [...] questions - You become worse Tc from [facility] reporting patient has extreme high blood sugars: 355 Saturday Down to the 250 today Advises that her glucose monitor keeps beeping, [facility] Nurse advised that pt refused urgent group home visit but was advised to go to the urgent. Please contact pt [phone] [place] Citizen Speaker * Telephone Encounter - Tramainehernan Pawel [...] go to the urgent. Please contact pt [phone] [place] Citizen Speaker documented in this encounter Plan of Treatment Upcoming Encounters Date Type Department Care Team (Late st Contact Info) Description 02/09/2025 10:30 AM EST Medication Management [address] [address] Vaishnavi Laird, PharmD [address] [place] [address] 03/03/2025 9:00 AM EST Clinical Support [address] [address] Suad Wilson, MARY documented as of this [...] documented as of this encounter Care Teams Arrow Point Attacher Relationship Specialty Start Date End Date Ethel Chase DO [address] [place] [address] PCP - General Family Medicine 10/12/13 Vaishnavi Laird PharmD [address] [place] [address] Pharmacist Internal Medicine 02/07/23 [id number] 06/11/24 11/18/24 documented as of this encounter
--- OUTSIDE RECORDS SUMMARY | 2025-02-04 22:31 | XMS_ITS | Encounter Summary ---
Author Organization [employer] Address [address] [facility] 7t h Floor [place] [id number] Care Team Providers Care Plant Operations Engineer Name Role Phone ManuelEthel perry Primary Care Provider [phone] Vaishnavi Laird PharmD Unavailable [phone] Reason for Visit * Reason Comments Med Refill Encounter Details Date Type Department Care Team ([facility] st Contact Info) Description 02/02/2023 Refill [facility] [address] [place] [address] Sadie Rivera, ANP 230 [place] [address] Type 2 diabetes mellitus with other specified complication, unspecified whether business applications manager insulin use ([facility]) Social History Tobacco Use Types Packs/Day [...] Description 02/09/2025 10:30 AM EST Medication Management [address] [address] Vaishnavi Laird PharmD [address] [place] [address] 03/03/2025 9:00 AM EST Clinical Support [address] [address] Suad Wilson, MARY documented as of this encounter Visit Diagnoses Diagnosis Type 2 diabetes mellitus with other specified complication, unspecified whether business applications manager insulin use (HCC) documented in this encounter Additional Health Concerns Assessment Noted Time PHQ-9 Depression Total Score: 0 02/08/20 22 10:43 AM EST documented as of this encounter Care Teams Plant Operations Engineer Relationship Specialty Start Date End Date Ethel Chase DO [address] [place] [address] PCP - General Family Medicine 10/12/13 Vaishnavi Laird PharmD [address] [place] [address] Pharmacist Internal Medicine 02/07/23 [id number] 06/11/24 11/18/24 documented as of this encounter
--- OUTSIDE RECORDS SUMMARY | 2025-02-04 22:31 | XMS_ITS | Encounter Summary ---
Author Organization [facility] Address [address] [place] [address] Care Team Providers Care Echo Technician Name Role Phone Matias Bowling MD Primary Care Provider [phone] Encounter Details Date Type Department Care Team (Late st Contact Info) Description 06/10/2024 Lab Requisition [facility] - Main Lab 299 [facility] [place] [address] Matias Bowling MD 38 [facility] 204 [facility] [address] Essential (primary) hypertension Social History Tobacco [...] documented as of this encounter Care Teams Echo Technician Relationship Specialty Start Date End Date Matias Bowling MD 38 [facility] 204 [place] [address] PCP - General Family Medicine 04/16/24 documented as of this encounter
--- OUTSIDE RECORDS SUMMARY | 2025-02-04 22:32 | XMS_ITS | Encounter Summary ---
Author Organization [facility] Address [address] [place] [address] Care Team Providers Care Multigrapher Name Role Phone Matias Bowling MD Primary Care Provider [phone] Encounter Details Date Type Department Care Team (Late st Contact Info) Description 04/28/2024 Lab Requisition [facility] - Main Lab 299 [facility] [place] [address] Matias Bowling MD 38 [facility] 204 [facility] [address] Diarrhea, unspecified Social History [...] documented as of this encounter Care Teams Multigrapher Relationship Specialty Start Date End Date Matias Bowling MD 38 [facility] 204 [place] [address] PCP - General Family Medicine 04/16/24 documented as of this encounter
--- OUTSIDE RECORDS SUMMARY | 2025-02-04 22:32 | XMS_ITS | Encounter Summary ---
Author Organization [employer] Address [address] [place] [address] 7t [place] [address] Care Team Providers Care Boxing Trainer Name Role Phone Ethel Chase DO Primary Care Provider [phone] Vaishnavi Laird PharmD Unavailable Reason for Visit * Reason Comments Med Refill Encounter Details Date Type Department Care Team ([facility] st Contact Info) Description 04/16/2024 Refill [facility] 230 [place] [address] Ethel Chase DO 230 [place] [address] Social History Tobacco Use Types Packs/Day Years [...] Description 02/09/2025 10:30 AM EST Medication Management [address] [address] Puia, Vaishnavi, PharmD [address] [place] [address] 03/03/2025 9:00 AM EST Clinical Support [address] [address] Suad Wilson, MARY documented as of this [...] documented as of this encounter Care Teams Boxing Trainer Relationship Specialty Start Date End Date Ethel Chase DO [address] [place] [address] PCP - General Family Medicine 10/12/13 Vaishnavi Laird, BrianD [address] [place] [address] Pharmacist Internal Medicine 02/07/23 [email or web address] 06/11/24 11/18/24 documented as of this encounter
--- OUTSIDE RECORDS SUMMARY | 2025-02-04 22:32 | XMS_ITS | Encounter Summary ---
Author Organization [employer] Address [address] [place] [address] 7t [place] [address] Care Team Providers Care Transport Corps Officer Name Role Phone Ethel Chase Primary Care Provider Vaishnavi Laird PharmD Unavailable [phone] Encounter Details Date Type Department Care Team (Late Contact Info) Description 02/09/2022 Orders Only [facility] [address] [place] [address] Sadie Rivera, ANP 230 [place] [address] Social History Tobacco Use Types Packs/Day Years [...] Description 02/09/2025 10:30 AM EST Medication Management [address] [address] Vaishnavi [place]aird [place] [address] 03/03/2025 9:00 AM EST Clinical Support [address] [address] Suad Wilson RN documented as of this encounter Visit Diagnoses Not on filedocumented in this encounter Additional Health Concerns Assessment Noted Time PHQ-9 Depression Total Score: 0 02/08/20 22 10:43 AM EST documented as of this encounter Care Teams Transport Corps Officer Relationship Specialty Start Date End Date Ethel [place] [address] PCP - General Family Medicine 10/12/13 Vaishnavi Laird PharmD [address] [place] [address] Pharmacist Internal Medicine 02/07/23 [id number] 06/11/24 11/18/24 documented as of this encounter
--- OUTSIDE RECORDS SUMMARY | 2025-02-04 22:32 | XMS_ITS | Encounter Summary ---
Author Organization [facility] Address [address] [place] [address] Care Team Providers Care Pediatric Cns Name Role Phone Matias Bowling MD Primary Care Provider [phone] Encounter Details Date Type Department Care Team (Late st Contact Info) Description 04/29/2024 Lab Requisition [facility] - Main Lab 299 [facility] [place] [address] Matias Bowling MD 38 [facility] 204 [facility] [address] Essential (primary) hypertension Social [...] documented as of this encounter Care Teams Pediatric Cns Relationship Specialty Start Date End Date Matias Bowling MD 38 [employer] [facility] 204 [place] [address] PCP - General Family Medicine 04/16/24 documented as of this encounter
--- OUTSIDE RECORDS SUMMARY | 2025-02-04 22:32 | XMS_ITS | Encounter Summary ---
Author Organization [employer] Address [address] [place] [address] 7t [place] [address] Care Team Providers Care Outpatient Services Director Name Role Phone Ethel Chase DO Primary Care Provider [phone] Vaishnavi Laird PharmD Unavailable Reason for Visit * Reason Comments Med Refill Encounter Details Date Type Department Care Team ([facility] st Contact Info) Description 02/07/[address] [facility] 230 [place] [address] Ethel Chase DO 230 [place] [address] Diverticular disease (Primary Dx) Social History Tobacco [...] but did send cipro and metro to [facility] requested. * Telephone Encounter - Susan Guillaume RN - 02/09/2022 3:31 PM EST TC placed to pt [phone] scan showed mild diverticulitis. Pt [...] requesting medications to be sent to [facility] on [address] [facility] she cannot get to [facility] pharmacy before they close. RN will [...] scan results are back yet. RN checked [employer] system and results not yet available. CT was ordered STAT. RN called [facility] radiology who reports they do not have a director non profit on site or Saturday and RN would have to call [facility] at [phone] and speak to rPathca to request results to be read. RN called [phone] however phone rang continuously without an automated recording w/ options ora VM. RN returned call to [facility] to inform them no one answered at [facility] and the phone just kept ringing. [facility] confirmed the number is correct and reports they will send a message to [facility] to ask them to interpret the CT scan. RN will check before end of the day for interpretation report. * Telephone Encounter - Arcelia Wylie - 02/08/2022 2:07 PM EST Tc from [facility] requesting lab ordered be refaxed, com writer refaxed to [phone] * Telephone Encounter - Ethel Chase DO - 02/07/2022 3:51 PM EST Rx already sent. documented in this encounter Plan of Treatment Upcoming Encounters Date Type Department Care Team (Late st Contact Info) Description 02/09/2025 10:30 AM EST Medication Management [address] [address] Vaishnavi Laird PharmD [address] [place] [address] 03/03/2025 9:00 AM EST Clinical Support [facility] [address] [place] [address] Suad Wilson RN documented as of this encounter Visit Diagnoses Diagnosis Diverticular disease- Primary Diverticulosis of colon (without mention of hemorrhage) documented in this encounter Additional Health Concerns Assessment Noted Time PHQ-9 Depression Total Score: 0 02/08/20 10:43 AM EST documented as of this encounter Care Teams Outpatient Services Director Relationship Specialty Start Date End Date Ethel Chase DO [address] [place] [address] PCP - General Family Medicine 10/12/13 Vaishnavi Laird, PharmD [address] [place] [address] Pharmacist Internal Medicine 02/07/23 [id number] 06/11/24 11/18/24 documented as of this encounter
--- OUTSIDE RECORDS SUMMARY | 2025-02-04 22:32 | XMS_ITS | Encounter Summary ---
Author Organization [facility] Address [address] [place] [address] Care Team Providers Care Labor Union Business Representative Name Role Phone Matias Bowling MD Primary Care Provider [phone] Encounter Details Date Type Department Care Team (Late st Contact Info) Description 04/29/2024 Lab Requisition [facility] - Main Lab 299 [place] [address] Matias Bowling MD 38 [facility] 204 [place], [address] Hyperlipidemia, unspecified; 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 classified [...] LAB CHEMISTRY METHOD 04/29/2024 2:49 PM EST [facility] Potassium 4.5 3.5 - 5.5 [...] LAB CHEMISTRY METHOD 04/29/2024 2:49 PM EST [facility] Albumin 3.2 3.2 - [...] Final Resul t [facility] 299 [place] [address], [place] [phone] * (ABNORMAL) Complete blood count (04/29/2024 6:35 [...] LAB HEMETOLOGY METHOD 04/29/2024 11:28 AM EST [facility] RDW 14.6 11.0 - [...] Final Resul t [facility] [address] [place] [address], documented in this encounter Visit Diagnoses Diagnosis Hyperlipidemia, unspecified 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 classified elsewhere (CMS/HCC V24, CMS/HCC V28) documented in this encounter Additional Health Concerns Infection Onset Date Last Indicated Resolved Time Gastrointestinal Rule-Out 04/28/2024 04/27/2024 7:06 PM EDT C. difficile 05/29/2024 05/29/2024 06/22/2024 7:04 PM EDT C. difficile Rule-Out 05/30/2024 05/29/20242024 9:47 AM EDT documented as of this encounter Care Teams Labor Union Business Representative Relationship Specialty Start Date End Date Matias Bowlnig MD [address] [place] [address] PCP - General Family Medicine 04/16/24 documented as of this encounter
== END 2025-02-04 15:38 | disposition home or self-care (01) ==
LOC: HO.HKA 14:58
PROVIDERS: PCP Family Medicine; Visit Provider Internal Medicine Hypertension Specialist
DX: I12.9 Hypertensive chronic kidney disease with stage 1 through stage 4 chronic kidney disease, or unspecified chronic kidney disease (principal); N18.9 Chronic kidney disease, unspecified
CPT/HCPCS: 99204

== ENCOUNTER 2025-02-10 08:58 | Outpatient (AMB) | payer OTHER, SELFPAY ==
--- NOTE | 2025-02-10 09:00 | A.OFFVIS_ITS ---
Vital Signs 02/10/25 09:01 Height 5 ft 3 in Weight 263 lb 3.711 oz BMI 46.6 BP 110/64 Blood Pressure Location Lt brachial Position Sitting Pulse 84 Pulse Source Monitor Intake Visit Reasons: 1 yr f/up echo Intake Note: 1 year after f/u Echo Pre Planning Advisor Name: Pastor [phone] span Information Interpreted: non-clinical & clinical Accompanied by: Self / Same As Patient Allergies Iodinated Contrast Media (IV CONTRAST) Allergy (Severe, Verified 02/10/25 09:04) itching, hives morphine (Morphine) Allergy (Intermediate, Verified 02/10/25 09:04) ITCHING, rash tramadol (Ultram) Allergy (Intermediate, Verified 02/10/25 09:04) rash, itching HPI Comments Details: Trish comes for follow-up, history obtained with help of top installer over the telephone. Since I saw her last year she had a fall and fracture of the hip which has has a intermediate healing she is still having a lot of pain. She does see orthopedic for the same. During this time she has not had any significant cardiac symptoms. She says she was told that she might have sleep apnea in his needing a follow up visit. She has not had a repeat echocardiogram as yet. She takes all her medications. Denies any symptoms of orthopnea, PND. No significant leg edema. No worsening shortness of breath, exertional chest pain. No prolonged palpitation or irregular heartbeat. [facility] Medical History Arthritis Hypothyroidism Renal calculi Environmental and seasonal allergies Nocturnal hypoxia Abnormal nuclear stress test Diabetes HTN (hypertension) Cardiomyopathy Bilateral nephrolithiasis Retention of urine Acid reflux Surgical History Status post total left knee replacement History of total left knee replacement (TKR) Hx of lithotripsy (2018) History of total right knee replacement (2011) Hx of repair of right rotator cuff (2013) History of cystoscopy Hx of tubal ligation History of hand surgery Family History Brother Breast cancer Social History Household Members: Spouse Household Members Other:: lives w/her grandson Housing: House Are you a primary child care center administrator to a significant other at home: Yes (grandson 17 yrs) Do you presently have visiting nurse or other home services: No 75 years or older and lives alone: No Alcohol intake: current Alcohol intake frequency: does not drink Comment: post op left knee, WBAT Patient Tobacco Use Status: Never used Tobacco Advance Directives Date on File: 04/14/24 service: No Current occupational status: disabled Current occupation: rt handed Gender identity: Female Female Reproductive History Menstrual Age of Menarche: 12 Review of Systems Const Denies daytime sleepiness, Denies difficulty sleeping, Denies snoring, Denies stops breathing during sleep and Denies weakness Card Denies chest pain, Denies rapid heart rate, Denies irregular heart rhythm, Denies claudication, Denies leg edema, Denies lightheadedness, Denies palpitations, Denies dyspnea, Denies dyspnea on exertion, Denies orthopnea, Denies paroxysmal nocturnal dyspnea and Denies slow heart rate Resp Denies cough, Denies dyspnea, Denies dyspnea on exertion and Denies snoring GI Reports no additional complaints, Denies hematochezia, Denies change in stool character and Denies dyspepsia Musc Denies abnormal gait, Denies muscle weakness and Denies numbness Neuro Denies abnormal gait, Denies numbness and Denies weakness Endo Denies palpitations Physical Exam Vital Signs: Last Vital Signs Pulse 84 02/10/25 09:01 BP 110/64 02/10/25 09:01 BMI result Body Mass Index 46.6 Const Other: Morbidly obese General: cooperative, comfortable and no acute distress Nutritional Appearance: obese morbidly obese Orientation/consciousness: patient oriented x3 Neck Neck: Yes normal visual inspection and Yes no JVD Resp Effort & Inspection: normal respiratory effort Auscultation: clear to auscultation bilaterally, no crackles, no rales, no rhonchi and no wheezes Cardio Rate: regular rate Rhythm: regular rhythm Heart sounds: S1 normal heart sound present, S2 normal heart sound present, no gallops, no murmurs and no rubs Neuro General: patient oriented x3 Extrem General: Yes normal to inspection Psych Appearance: grossly normal Mental Status: mental status grossly normal Speech and movement: Normal speech and movement present Office Procedures EKG Details: EKGs shows normal sinus rhythm with nonspecific T-wave changes [id number], Complete Assessment & Plan Assessment & Plan (1) Cardiomyopathy: Code(s): I42.9 - Cardiomyopathy, unspecified Category: Medical Plan: Prior history of mild cardiomyopathy currently on neurohormonal modulation with metoprolol and lisinopril. No progressive symptoms. Follow-up echocardiogram in near future as planned. No change in therapy at this point time. She is encouraged to participate in weight loss but this could be difficult given her orthopedic issues. If she has sleep apnea and this needs to be treated as well. Avoidance of cardiotoxic agent was discussed. Further treatment based on finding of the echocardiogram. If that is further worsening may consider switching her to Entresto therapy. Signs and symptoms of heart failure were discussed. (2) HTN (hypertension): Code(s): I10 - Essential (primary) hypertension Category: Medical Plan: Hypertension which is currently well optimized advised to monitor blood pressure at home maintain a log. Goal blood pressure less than 130/84. Low-salt diet was discussed. Will follow up in the clinic in 1 year's time, sooner PRN. Thank you for allowing me to partake in her care Coding Level of Care Code Est Pt Level 4 (93175) Diagnoses Cardiomyopathy I42.9 HTN (hypertension) I10 CPT Codes EKG - CPT: 61170-[id number], Complete ([id number])
[2025-02-10 09:01] VITALS: BP 110/64; PULSE 84; BMI 46.6
--- OUTSIDE RECORDS SUMMARY | 2025-02-10 09:39 | XMS_ITS | Encounter Summary ---
Author Organization [facility] Address [address] [place] [address] Care Team Providers Care Aerial Tram Operator Name Role Phone Matias Bowling MD Primary Care Provider [phone] Encounter Details Date Type Department Care Team (Late st Contact Info) Description 04/30/2024 Lab Requisition [facility] - Main Lab [address] [place] [address] Matias Bowling MD 38 [facility] [address] [place], [address] Essential (primary) hypertension Social History Tobacco [...] LAB CHEMISTRY METHOD 05/01/2024 12:26 PM EST [facility] Potassium 4.7 3.5 - 5.5 mmol/L LAB CHEMISTRY METHOD 05/01/2024 12:26 PM EST [facility] Chloride 110 96 - 110 [...] Final Resul t [facility] [address] [place] [address], * (ABNORMAL) Complete blood count (05/01/2024 4:57 AM EST) WBC 9.9 4.8 - 10.8 K/mcL LAB HEMETOLOGY METHOD 05/01/2024 11:34 AM [facility] RBC 3.50(L) 3.80 - 4.80 M/mcL LAB HEMETOLOGY METHOD 05/01/2024 11:34 AM [facility] Hemoglobin 9.3(L) 11.5 - 16.0 g/dL LAB HEMETOLOGY METHOD 05/01/2024 11:34 AM [facility] Hematocrit 31.7(L) 35.0 - 47.0 % LAB HEMETOLOGY METHOD 05/01/2024 11:34 AM [facility] MCV 90.3 79.0 - 98.0 FL LAB HEMETOLOGY METHOD 05/01/2024 11:34 AM [facility] MCH 26.5(L) 27.0 - 32.0 pcg LAB HEMETOLOGY METHOD 05/01/2024 11:34 AM [facility] MCHC 29.3(L) 32.0 - 37.0 g/dL LAB HEMETOLOGY METHOD 05/01/2024 11:34 AM [facility] RDW 14.7 11.0 - 15.0 % LAB HEMETOLOGY METHOD 05/01/2024 11:34 AM [facility] Platelets 312 130 - 400 K/mcL LAB HEMETOLOGY METHOD 05/01/2024 11:34 AM [facility] MPV 10.3 7.0 - 11.0 FL LAB HEMETOLOGY METHOD 05/01/2024 11:34 AM [facility] NRBC 0.0 <1.0 % LAB HEMETOLOGY METHOD 05/01/2024 11:34 AM [facility] NRBC Absolute 0.00 <0.10 K/mcL LAB HEMETOLOGY METHOD 05/01/2024 11:34 AM [facility] Blood Venous blood specimen / Unknown Venipuncture / Unknown 05/01/2024 4:57 AM EST 05/01/2024 11:00 AM EST us Matias Bowling MD LAB BLOOD ORDERABLES Final Resul t [facility] [address] [place] [address], documented in this encounter Visit Diagnoses Diagnosis Essential (primary) hypertension Unspecified essential hypertension documented in this encounter Additional Health Concerns Infection Onset Date Last Indicated Resolved Time Gastrointestinal Rule-Out 04/28/2024 04/27/2024 7:06 PM EDT C. difficile 05/29/2024 05/29/2024 06/22/2024 7:04 PM EDT C. difficile Rule-Out 05/30/2024 05/29/20242024 9:47 AM EDT documented as of this encounter Care Teams Aerial Tram Operator Relationship Specialty Start Date End Date Matias Bowling MD [address] [place] [phone] PCP - General Family Medicine 04/16/24 documented as of this encounter
--- OUTSIDE RECORDS SUMMARY | 2025-02-10 09:39 | XMS_ITS | Encounter Summary ---
Author Organization [facility] Address [address] [place] [address] Care Team Providers Care Fire Prevention Captain Name Role Phone Matias Bowling MD Primary Care Provider [phone] Encounter Details Date Type Department Care Team (Late st Contact Info) Description 04/16/2024 Lab Requisition [facility] - Main Lab [address] [place] [address] Matias Bowling MD 38 [facility] [address] [place], [address] Essential (primary) hypertension Social History Tobacco [...] LAB CHEMISTRY METHOD 04/16/2024 11:36 AM EST [facility] Potassium 4.2 3.5 - 5.5 mmol/L LAB CHEMISTRY METHOD 04/16/2024 11:36 AM EST [facility] Chloride 103 96 - [...] Final Resul t [facility] [address] [place] [address], * (ABNORMAL) Complete blood count (04/16/2024 7:33 AM EST) WBC 11.5(H) 4.8 - 10.8 K/mcL LAB HEMETOLOGY METHOD 04/16/2024 11:12 AM [facility] RBC 3.70(L) 3.80 - 4.80 M/mcL LAB HEMETOLOGY METHOD 04/16/2024 11:12 AM [facility] [...] LAB HEMETOLOGY METHOD 04/16/2024 11:12 AM EST [facility] RDW 14.2 11.0 - 15.0 % LAB HEMETOLOGY METHOD 04/16/2024 11:12 AM EST [facility] Platelets 443(H) 130 - 400 K/mcL LAB HEMETOLOGY METHOD 04/16/2024 11:12 AM EST [facility] MPV 9.8 7.0 - 11.0 FL LAB HEMETOLOGY METHOD 04/16/2024 11:12 AM EST [facility] NRBC 0.0 <1.0 % LAB HEMETOLOGY METHOD 04/16/2024 11:12 AM EST [facility] NRBC Absolute 0.00 <0.10 K/mcL LAB HEMETOLOGY METHOD 04/16/2024 11:12 AM [facility] Blood Venous blood specimen / Unknown Venipuncture / Unknown 04/16/2024 7:33 AM EST 04/16/2024 10:20 AM EST us Matias Bowling MD LAB BLOOD ORDERABLES Final Resul t [facility] [address] [place] [address], documented in this encounter Visit Diagnoses Diagnosis Essential (primary) hypertension Unspecified essential hypertension documented in this encounter Additional Health Concerns Infection Onset Date Last Indicated Resolved Time Gastrointestinal Rule-Out 04/28/2024 04/27/2024 7:06 PM EDT C. difficile 05/29/2024 05/29/2024 06/22/2024 7:04 PM EDT C. difficile Rule-Out 05/30/2024 05/29/20242024 9:47 AM EDT documented as of this encounter Care Teams Fire Prevention Captain Relationship Specialty Start Date End Date Matias Bowling MD [address] [place] [address] [address] [place] [phone] PCP - General Family Medicine 04/16/24 documented as of this encounter
--- OUTSIDE RECORDS SUMMARY | 2025-02-10 09:39 | XMS_ITS | Encounter Summary ---
Author Organization [facility] Address [address] [place] [address] Care Team Providers Care Family Educator Name Role Phone Matias Bowling MD Primary Care Provider [phone] Encounter Details Date Type Department Care Team (Late st Contact Info) Description 05/20/2024 Lab Requisition [facility] - Main Lab [address] [place] [address] Matias Bowling MD 38 [facility] [address] [place], [address] Essential (primary) hypertension Social History Tobacco [...] LAB CHEMISTRY METHOD 05/21/2024 11:29 AM EDT [facility] Potassium 5.9(H) 3.5 - 5.5 mmol/L LAB CHEMISTRY METHOD 05/21/2024 11:29 AM EDT [facility] Chloride 102 96 - 110 mmol/L LAB CHEMISTRY METHOD 05/21/2024 11:29 AM [facility] CO2 27 21 - 32 mmol/L LAB CHEMISTRY METHOD 05/21/2024 11:29 AM [facility] Anion Gap 7 3 - 11 LAB CHEMISTRY METHOD 05/21/2024 11:29 AM [facility] Glucose 152(H) 70 - 100 mg/dL LAB CHEMISTRY METHOD 05/21/2024 11:29 AM [facility] BUN 21 5 - 25 mg/dL LAB CHEMISTRY METHOD 05/21/2024 11:29 AM [facility] Creatinine 2.30(H) 0.50 - 1.10 mg/dL LAB CHEMISTRY METHOD 05/21/2024 11:29 AM [facility] eGFR 23(L) >=60 mL/min/1. 73m2 LAB CHEMISTRY METHOD 05/21/2024 11:29 AM [facility] Comment:Calculation based on the Chronic Kidney Disease Epidemiology Collaboration (CKD-EPI) equation refit without adjustment for race. BUN/Creatinine Ratio 9.1 LAB CHEMISTRY METHOD 05/21/2024 11:29 AM [facility] Calcium 8.9 8.5 - 10.5 mg/dL LAB CHEMISTRY METHOD 05/21/2024 11:29 AM [facility] AST (SGOT) 23 10 - 42 unit/L LAB CHEMISTRY METHOD 05/21/2024 11:29 AM [facility] ALT (SGPT) 30 10 - 60 unit/L LAB CHEMISTRY METHOD 05/21/2024 11:29 AM [facility] Alkaline Phosphatase 174(H) 42 - 121 unit/L LAB CHEMISTRY METHOD 05/21/2024 11:29 AM [facility] Total Protein 6.7 6.0 - 8.0 g/dL LAB CHEMISTRY METHOD 05/21/2024 11:29 AM [facility] Albumin 3.3 3.2 - 5.0 g/dL LAB CHEMISTRY METHOD 05/21/2024 11:29 AM EDT [facility] Total Bilirubin 0.3 0.0 - 1.4 mg/dL LAB CHEMISTRY METHOD 05/21/2024 11:29 AM EDT [facility] Blood Venous blood specimen / Unknown Venipuncture / Unknown 05/21/2024 5:43 AM EDT 05/21/2024 9:27 AM EDT us Matias Bowling MD LAB BLOOD ORDERABLES Final Resul t [facility] [address] [place] [address], [place] [phone] * (ABNORMAL) Complete blood count (05/21/2024 5:43 AM EDT) WBC 10.3 4.8 - 10.8 K/mcL LAB HEMETOLOGY METHOD 05/21/2024 10:10 AM T [facility] RBC 3.50(L) 3.80 - 4.80 M/mcL LAB HEMETOLOGY METHOD 05/21/2024 10:10 AM [facility] Hemoglobin 9.0(L) 11.5 - 16.0 g/dL LAB HEMETOLOGY METHOD 05/21/2024 10:10 AM T [facility] Hematocrit 30.0(L) 35.0 - 47.0 % LAB HEMETOLOGY METHOD 05/21/2024 10:10 AM EDT [facility] MCV 86.5 79.0 - 98.0 FL LAB HEMETOLOGY METHOD 05/21/2024 10:10 AM [facility] MCH 25.9(L) 27.0 - 32.0 pcg LAB HEMETOLOGY METHOD 05/21/2024 10:10 AM T [facility] MCHC 30.0(L) 32.0 - 37.0 g/dL LAB HEMETOLOGY METHOD 05/21/2024 10:10 AM EDT [facility] RDW 15.1(H) 11.0 - 15.0 % LAB HEMETOLOGY METHOD 05/21/2024 10:10 AM EDT [facility] Platelets 272 130 - 400 K/mcL LAB HEMETOLOGY METHOD 05/21/2024 10:10 AM EDT [facility] MPV 10.2 7.0 - 11.0 FL LAB HEMETOLOGY METHOD 05/21/2024 10:10 AM EDT [facility] NRBC 0.0 <1.0 % LAB HEMETOLOGY METHOD 05/21/2024 10:10 AM EDT [facility] NRBC Absolute 0.00 <0.10 K/mcL LAB HEMETOLOGY METHOD 05/21/2024 10:10 AM EDT [facility] Blood Venous blood specimen / Unknown Venipuncture / Unknown 05/21/2024 5:43 AM EDT 05/21/2024 9:27 AM EDT us Matias Bowling MD LAB BLOOD ORDERABLES Final Resul t [facility] [address] [place] [address], documented in this encounter Visit Diagnoses Diagnosis Essential (primary) hypertension Unspecified essential hypertension documented in this encounter Additional Health Concerns Infection Onset Date Last Indicated Resolved Time Gastrointestinal Rule-Out 04/28/2024 04/27/2024 7:06 PM EDT C. difficile 05/29/2024 05/29/2024 06/22/2024 7:04 PM EDT C. difficile Rule-Out 05/30/2024 05/29/20242024 9:47 AM EDT documented as of this encounter Care Teams Family Educator Relationship Specialty Start Date End Date Matias Bowling MD [address] [place] [address] PCP - General Family Medicine 04/16/24 documented as of this encounter
--- OUTSIDE RECORDS SUMMARY | 2025-02-10 09:39 | XMS_ITS | Encounter Summary ---
Author Organization [facility] Address [address] [place] [address] Care Team Providers Care Home Companion Name Role Phone Matias Bowling MD Primary Care Provider [phone] Encounter Details Date Type Department Care Team (Late st Contact Info) Description 05/13/2024 Lab Requisition [facility] - Main Lab [address] [place] [address] Matias Bowling MD 38 [facility] [address] [place], [address] Essential (primary) hypertension Social History Tobacco [...] LAB CHEMISTRY METHOD 05/14/2024 11:24 AM EDT [facility] Potassium 5.2 3.5 - 5.5 mmol/L LAB CHEMISTRY METHOD 05/14/2024 11:24 AM EDT [facility] Chloride 108 96 - 110 [...] LAB CHEMISTRY METHOD 05/14/2024 11:24 AM EDT [facility] Total Bilirubin 0.2 0.0 - 1.4 mg/dL LAB CHEMISTRY METHOD 05/14/2024 11:24 AM T [facility] Blood Venous blood specimen / Unknown Venipuncture / Unknown 05/14/2024 6:06 AM EDT 05/14/2024 9:53 AM EDT us Matias Bowling MD LAB BLOOD ORDERABLES Final Resul t [facility] [address] [place] [address], [place] [phone] * (ABNORMAL) Complete blood count (05/14/2024 6:06 AM EDT) WBC 8.8 4.8 - 10.8 K/mcL LAB HEMETOLOGY METHOD 05/14/2024 10:16 AM [facility] RBC 3.50(L) 3.80 - 4.80 M/mcL LAB HEMETOLOGY METHOD 05/14/2024 10:16 AM [facility] Hemoglobin 9.4(L) 11.5 - 16.0 g/dL LAB HEMETOLOGY METHOD 05/14/2024 10:16 AM [facility] Hematocrit 30.4(L) 35.0 - 47.0 % LAB HEMETOLOGY METHOD 05/14/2024 10:16 AM [facility] MCV 85.9 79.0 - 98.0 FL LAB HEMETOLOGY METHOD 05/14/2024 10:16 AM [facility] MCH 26.6(L) 27.0 - 32.0 pcg LAB HEMETOLOGY METHOD 05/14/2024 10:16 AM [facility] MCHC 30.9(L) 32.0 - 37.0 g/dL LAB HEMETOLOGY METHOD 05/14/2024 10:16 AM EDT [facility] RDW 14.6 11.0 - 15.0 % LAB HEMETOLOGY METHOD 05/14/2024 10:16 AM EDT [facility] Platelets 275 130 - 400 K/mcL LAB HEMETOLOGY METHOD 05/14/2024 10:16 AM EDT [facility] MPV 10.1 7.0 - 11.0 FL LAB HEMETOLOGY METHOD 05/14/2024 10:16 AM EDT [facility] NRBC 0.0 <1.0 % LAB HEMETOLOGY METHOD 05/14/2024 10:16 AM EDT [facility] NRBC Absolute 0.00 <0.10 K/mcL LAB HEMETOLOGY METHOD 05/14/2024 10:16 AM EDT [facility] Blood Venous blood specimen / Unknown Venipuncture / Unknown 05/14/2024 6:06 AM EDT 05/14/2024 9:53 AM EDT us Matias Bowling MD LAB BLOOD ORDERABLES Final Resul t [facility] [address] [place] [address], documented in this encounter Visit Diagnoses Diagnosis Essential (primary) hypertension Unspecified essential hypertension documented in this encounter Additional Health Concerns Infection Onset Date Last Indicated Resolved Time Gastrointestinal Rule-Out 04/28/2024 04/27/2024 7:06 PM EDT C. difficile 05/29/2024 05/29/2024 06/22/2024 7:04 PM EDT C. difficile Rule-Out 05/30/2024 05/29/20242024 9:47 AM EDT documented as of this encounter Care Teams Home Companion Relationship Specialty Start Date End Date Matias Bowling MD [address] [place] [address] PCP - General Family Medicine 04/16/24 documented as of this encounter
--- OUTSIDE RECORDS SUMMARY | 2025-02-10 09:39 | XMS_ITS | Encounter Summary ---
Author Organization [facility] Address [address] [place] [address] Care Team Providers Care Audio/Visual Operator Name Role Phone Matias Bowling MD Primary Care Provider [phone] Encounter Details Date Type Department Care Team (Late st Contact Info) Description 04/29/2024 Lab Requisition [facility] - Main Lab [address] [place] [address] Matias Bowling MD 38 [facility] [address] [place], [address] Hyperlipidemia, unspecified; 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 classified [...] LAB CHEMISTRY METHOD 04/29/2024 2:49 PM EST [facility] Potassium 4.5 3.5 - 5.5 mmol/L LAB CHEMISTRY METHOD 04/29/2024 2:49 PM [facility] Chloride 111(H) 96 - 110 mmol/L LAB CHEMISTRY METHOD 04/29/2024 2:49 PM [facility] CO2 23 21 - 32 mmol/L LAB CHEMISTRY METHOD 04/29/2024 2:49 PM [facility] Anion Gap 8 3 - 11 LAB CHEMISTRY METHOD 04/29/2024 2:49 PM [facility] Glucose 118(H) 70 - 100 mg/dL LAB CHEMISTRY METHOD 04/29/2024 2:49 PM [facility] BUN 18 5 - 25 mg/dL LAB CHEMISTRY METHOD 04/29/2024 2:49 PM [facility] Creatinine 0.94 0.50 - 1.10 mg/dL LAB CHEMISTRY METHOD 04/29/2024 2:49 PM [facility] eGFR 66 >=60 mL/min/1. 73m2 LAB CHEMISTRY METHOD 04/29/2024 2:49 PM [facility] Comment:Calculation based on the Chronic Kidney Disease Epidemiology Collaboration (CKD-EPI) equation refit without adjustment for race. BUN/Creatinine Ratio 19.1 LAB CHEMISTRY METHOD 04/29/2024 2:49 PM [facility] Calcium 9.2 8.5 - 10.5 mg/dL LAB CHEMISTRY METHOD 04/29/2024 2:49 PM [facility] AST (SGOT) 21 10 - 42 unit/L LAB CHEMISTRY METHOD 04/29/2024 2:49 PM [facility] ALT (SGPT) 24 10 - 60 unit/L LAB CHEMISTRY METHOD 04/29/2024 2:49 PM [facility] Alkaline Phosphatase 170(H) 42 - 121 unit/L LAB CHEMISTRY METHOD 04/29/2024 2:49 PM [facility] Total Protein 6.9 6.0 - 8.0 g/dL LAB CHEMISTRY METHOD 04/29/2024 2:49 PM EST [facility] Albumin 3.2 3.2 - 5.0 g/dL LAB CHEMISTRY METHOD 04/29/2024 2:49 PM [facility] Total Bilirubin 0.3 0.0 - 1.4 mg/dL LAB CHEMISTRY METHOD 04/29/2024 2:49 PM [facility] Blood Venous blood specimen / Unknown Venipuncture / Unknown 04/29/2024 6:35 AM EST 04/29/2024 10:01 AM EST us Matias Bowling MD LAB BLOOD ORDERABLES Final Resul t [facility] [address] [place] [address], [place] [phone] * (ABNORMAL) Complete blood count (04/29/2024 6:35 AM EST) WBC 9.6 4.8 - 10.8 K/mcL LAB HEMETOLOGY METHOD 04/29/2024 11:28 AM [facility] RBC 3.70(L) 3.80 - 4.80 M/mcL LAB HEMETOLOGY METHOD 04/29/2024 11:28 AM [facility] Hemoglobin 9.9(L) 11.5 - 16.0 g/dL LAB HEMETOLOGY METHOD 04/29/2024 11:28 AM [facility] Hematocrit 32.0(L) 35.0 - 47.0 % LAB HEMETOLOGY METHOD 04/29/2024 11:28 AM [facility] MCV 87.0 79.0 - 98.0 FL LAB HEMETOLOGY METHOD 04/29/2024 11:28 AM [facility] MCH 26.9(L) 27.0 - 32.0 pcg LAB HEMETOLOGY METHOD 04/29/2024 11:28 AM [facility] MCHC 30.9(L) 32.0 - 37.0 g/dL LAB HEMETOLOGY METHOD 04/29/2024 11:28 AM EST [facility] RDW 14.6 11.0 - 15.0 % LAB HEMETOLOGY METHOD 04/29/2024 11:28 AM [facility] Platelets 358 130 - 400 K/mcL LAB HEMETOLOGY METHOD 04/29/2024 11:28 AM [facility] MPV 10.0 7.0 - 11.0 FL LAB HEMETOLOGY METHOD 04/29/2024 11:28 AM [facility] NRBC 0.0 <1.0 % LAB HEMETOLOGY METHOD 04/29/2024 11:28 AM [facility] NRBC Absolute 0.00 <0.10 K/mcL LAB HEMETOLOGY METHOD 04/29/2024 11:28 AM [facility] Blood Venous blood specimen / Unknown Venipuncture / Unknown 04/29/2024 6:35 AM EST 04/29/2024 10:01 AM EST us Matias Bowling MD LAB BLOOD ORDERABLES Final Resul t [facility] [address] [place] [address], documented in this encounter Visit Diagnoses Diagnosis Hyperlipidemia, unspecified 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 classified elsewhere (CMS/HCC V24, CMS/HCC V28) documented in this encounter Additional Health Concerns Infection Onset Date Last Indicated Resolved Time Gastrointestinal Rule-Out 04/28/2024 04/27/2024 7:06 PM EDT C. difficile 05/29/2024 05/29/2024 06/22/2024 7:04 PM EDT C. difficile Rule-Out 05/30/2024 05/29/20242024 9:47 AM EDT documented as of this encounter Care Teams Audio/Visual Operator Relationship Specialty Start Date End Date Matias Bowling MD [address] [place] [address] PCP - General Family Medicine 04/16/24 documented as of this encounter
--- OUTSIDE RECORDS SUMMARY | 2025-02-10 09:39 | XMS_ITS | Encounter Summary ---
Author Organization [facility] Address [address] [place] [address] Care Team Providers Care Parks And Recreation Manager Name Role Phone Matias Bowling MD Primary Care Provider [phone] Encounter Details Date Type Department Care Team (Late st Contact Info) Description 05/06/2024 Lab Requisition [facility] - Main Lab [address] [place] [address] Matias Bowling MD 38 [facility] [address] [place], [address] Essential (primary) hypertension Social History Tobacco [...] [facility] [address] [place] [address], [place] [phone] * (ABNORMAL) Complete blood count (05/07/2024 5:12 [...] [facility] [address] [place] [address], documented in this encounter Visit Diagnoses Diagnosis Essential (primary) hypertension Unspecified essential hypertension documented in this encounter Additional Health Concerns Infection Onset Date Last Indicated Resolved Time Gastrointestinal Rule-Out 04/28/2024 04/27/2024 7:06 PM EDT C. difficile 05/29/2024 05/29/2024 06/22/2024 7:04 PM EDT C. difficile Rule-Out 05/30/2024 05/29/20242024 9:47 AM EDT documented as of this encounter Care Teams Parks And Recreation Manager Relationship Specialty Start Date End Date Matias Bowling MD 38 [facility] [address] [place] [phone] PCP - General Family Medicine 04/16/24 documented as of this encounter
--- OUTSIDE RECORDS SUMMARY | 2025-02-10 09:40 | XMS_ITS | Encounter Summary ---
Author Organization [facility] Address [address] [place] [address] Care Team Providers Care V Belt Coverer Name Role Phone Matias Bowling MD Primary Care Provider [phone] Encounter Details Date Type Department Care Team (Late st Contact Info) Description 04/28/2024 Lab Requisition [facility] - Main Lab [address] [facility] [place] [address] Matias Bowling MD 38 [facility] 204 [facility] [address] Diarrhea, unspecified Social History Tobacco [...] documented as of this encounter Care Teams V Belt Coverer Relationship Specialty Start Date End Date Matias Bowling MD [address] [facility] [address] [place] [address] PCP - General Family Medicine 04/16/24 documented as of this encounter
--- OUTSIDE RECORDS SUMMARY | 2025-02-10 09:40 | XMS_ITS | Encounter Summary ---
Author Organization [facility] Address [address] [place] [address] Care Team Providers Care Floor Mechanic Name Role Phone Matias Bowling MD Primary Care Provider [phone] Encounter Details Date Type Department Care Team (Late st Contact Info) Description 05/27/[address] [facility] - Main Lab [address] [place] [address] Matias Bowling MD 38 [facility] [address] [place], [address] Essential (primary) hypertension Social History Tobacco [...] LAB CHEMISTRY METHOD 05/28/2024 10:[address] [facility] Potassium 4.2 3.5 - 5.5 mmol/L LAB CHEMISTRY METHOD 05/28/2024 10:[address] [facility] Chloride 103 96 - 110 [...] LAB CHEMISTRY METHOD 05/28/2024 10:[address] [facility] Total Bilirubin 0.2 0.0 - 1.4 mg/dL LAB CHEMISTRY METHOD 05/28/2024 10:13 AM [facility] Blood Venous blood specimen / Unknown Venipuncture / Unknown 05/28/2024 5:02 AM EDT 05/28/2024 9:04 AM EDT us Matias Bowling MD LAB BLOOD ORDERABLES Final Resul t [facility] [address] [place] [address], [place] [phone] * (ABNORMAL) Complete blood count (05/28/2024 5:02 [...] LAB HEMETOLOGY METHOD 05/28/2024 9:[address] [facility] RDW 14.9 11.0 - 15.0 % LAB HEMETOLOGY METHOD 05/28/2024 9:[address] [facility] Platelets 281 130 - 400 K/mcL LAB HEMETOLOGY METHOD 05/28/2024 9:[address] [facility] MPV 10.2 7.0 - 11.0 FL LAB HEMETOLOGY METHOD 05/28/2024 9:[address] [facility] NRBC 0.0 <1.0 % LAB HEMETOLOGY METHOD 05/28/2024 9:[address] [facility] NRBC Absolute 0.00 <0.10 K/mcL LAB HEMETOLOGY METHOD 05/28/2024 9:[address] [facility] Blood Venous blood specimen / Unknown Venipuncture / Unknown 05/28/2024 5:02 AM EDT 05/28/2024 9:04 AM EDT us Matias Bowling MD LAB BLOOD ORDERABLES Final Resul t [facility] [address] [place] [address], documented in this encounter Visit Diagnoses Diagnosis Essential (primary) hypertension Unspecified essential hypertension documented in this encounter Additional Health Concerns Infection Onset Date Last Indicated Resolved Time C. difficile 05/29/2024 05/29/2024 06/22/2024 7:04 PM EDT C. difficile Rule-Out 05/30/2024 05/29/20242024 9:47 AM EDT documented as of this encounter Care Teams Floor Mechanic Relationship Specialty Start Date End Date Matias Bowling MD [address] [place] [phone] PCP - General Family Medicine 04/16/24 documented as of this encounter
--- OUTSIDE RECORDS SUMMARY | 2025-02-10 09:40 | XMS_ITS | Encounter Summary ---
Author Organization [facility] Address [address] [place] [address] Care Team Providers Care Medical Underwriter Name Role Phone Matias Bowling MD Primary Care Provider Encounter Details Date Type Department Care Team (Late st Contact Info) Description 04/29/2024 Lab Requisition [facility] - Main Lab 299 [facility] [place] [address] Matias Bowling MD 38 [facility] 204 [facility] [address] Essential (primary) hypertension Social History [...] documented as of this encounter Care Teams Medical Underwriter Relationship Specialty Start Date End Date Matias Bowling MD 38 [employer] [facility] 204 [place] [address] PCP - General Family Medicine 04/16/24 documented as of this encounter
--- OUTSIDE RECORDS SUMMARY | 2025-02-10 09:40 | XMS_ITS | Encounter Summary ---
Author Organization [facility] Address [address] [place] [address] Care Team Providers Care Clerk Rating Name Role Phone Matias Bowling MD Primary Care Provider [phone] Encounter Details Date Type Department Care Team (Late st Contact Info) Description 06/10/2024 Lab Requisition [facility] - Main Lab 299 [facility] [place] [address] Matias Bowling MD 38 [facility] 204 [facility] [address] Essential (primary) hypertension Social History Tobacco [...] documented as of this encounter Care Teams Clerk Rating Relationship Specialty Start Date End Date Matias Bowling MD 38 [facility] 204 [place] [address] PCP - General Family Medicine 04/16/24 documented as of this encounter
--- OUTSIDE RECORDS SUMMARY | 2025-02-10 09:40 | XMS_ITS | Encounter Summary ---
Author Organization [facility] Address [address] [place] [address] Care Team Providers Care Observer Electrical Prospecting Name Role Phone Matias Bowling MD Primary Care Provider [phone] Encounter Details Date Type Department Care Team (Late st Contact Info) Description 05/22/2024 Lab Requisition [facility] - Main Lab 299 [place] [address] Matias Bowling MD 38 [facility] 204 [place], [address] 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 classified elsewhere (CMS/HCC [...] CHEMISTRY METHOD 05/22/2024 11:37 AM EDT [facility] Potassium 5.2 3.5 - 5.5 mmol/L LAB CHEMISTRY METHOD 05/22/2024 11:37 AM [facility] Chloride 102 96 - 110 mmol/L LAB CHEMISTRY METHOD 05/22/2024 11:37 AM [facility] CO2 25 21 - 32 mmol/L LAB CHEMISTRY METHOD 05/22/2024 11:37 AM [facility] Anion Gap 7 3 - 11 LAB CHEMISTRY METHOD 05/22/2024 11:37 AM [facility] Glucose 163(H) 70 - 100 mg/dL LAB CHEMISTRY METHOD 05/22/2024 11:37 AM [facility] BUN 18 5 - 25 mg/dL LAB CHEMISTRY METHOD 05/22/2024 11:37 AM [facility] Creatinine 1.65(H) 0.50 - 1.10 mg/dL LAB CHEMISTRY METHOD 05/22/2024 11:37 AM [facility] eGFR 34(L) >=60 mL/min/1. 73m2 LAB CHEMISTRY METHOD 05/22/2024 11:37 AM [facility] Comment:Calculation based on the Chronic Kidney Disease Epidemiology Collaboration (CKD-EPI) equation refit without adjustment for race. BUN/Creatinine Ratio 10.9 LAB CHEMISTRY METHOD 05/22/2024 11:37 AM [facility] Calcium 8.8 8.5 - 10.5 mg/dL LAB CHEMISTRY METHOD 05/22/2024 11:37 AM [facility] Blood Venous blood specimen / Unknown Venipuncture / Unknown 05/22/2024 8:23 AM EDT 05/22/2024 10:31 AM EDT us Matias Bowling MD LAB BLOOD ORDERABLES Final Resul t [facility] 299 [place] [address], * (ABNORMAL) Complete blood count (05/22/2024 8:23 AM EDT) [facility] WBC 9.8 4.8 - 10.8 K/mcL LAB HEMETOLOGY METHOD 05/22/2024 11:21 AM [facility] RBC 3.60(L) 3.80 - 4.80 M/mcL LAB HEMETOLOGY METHOD 05/22/2024 11:21 AM [facility] Hemoglobin 9.5(L) 11.5 - 16.0 g/dL LAB HEMETOLOGY METHOD 05/22/2024 11:21 AM [facility] Hematocrit 31.2(L) 35.0 - 47.0 % LAB HEMETOLOGY METHOD 05/22/2024 11:21 AM [facility] MCV 86.4 79.0 - 98.0 FL LAB HEMETOLOGY METHOD 05/22/2024 11:21 AM [facility] MCH 26.3(L) 27.0 - 32.0 pcg LAB HEMETOLOGY METHOD 05/22/2024 11:21 AM [facility] MCHC 30.4(L) 32.0 - 37.0 g/dL LAB HEMETOLOGY METHOD 05/22/2024 11:21 AM [facility] RDW 14.7 11.0 - 15.0 % LAB HEMETOLOGY METHOD 05/22/2024 11:21 AM [facility] Platelets 278 130 - 400 K/mcL LAB HEMETOLOGY METHOD 05/22/2024 11:21 AM [facility] MPV 10.5 7.0 - 11.0 FL LAB HEMETOLOGY METHOD 05/22/2024 11:21 AM [facility] NRBC 0.0 <1.0 % LAB HEMETOLOGY METHOD 05/22/2024 11:21 AM [facility] NRBC Absolute 0.00 <0.10 K/mcL LAB HEMETOLOGY METHOD 05/22/2024 11:[address] [facility] Blood Venous blood specimen / Unknown Venipuncture / Unknown 05/22/2024 8:23 AM EDT 05/22/2024 10:31 AM EDT us Matias Bowling MD LAB BLOOD ORDERABLES Final Resul t [facility] [address] [place] [address], documented in this encounter Visit Diagnoses Diagnosis 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 classified elsewhere (CMS/HCC V24, CMS/HCC V28) Hyperlipidemia, unspecified documented in this encounter Additional Health Concerns Infection Onset Date Last Indicated Resolved Time Gastrointestinal Rule-Out 04/28/2024 04/27/2024 7:06 PM EDT C. difficile 05/29/2024 05/29/2024 06/22/2024 7:04 PM EDT C. difficile Rule-Out 05/30/2024 05/29/20242024 9:47 AM EDT documented as of this encounter Care Teams Observer Electrical Prospecting Relationship Specialty Start Date End Date Matias Bowling MD [address] [place] [address] 204 [place] [address] PCP - General Family Medicine 04/16/24 documented as of this encounter
--- OUTSIDE RECORDS SUMMARY | 2025-02-10 09:40 | XMS_ITS | Encounter Summary ---
Author Organization [facility] Address [address] [place] [address] Care Team Providers Care Transportation Services Representative Name Role Phone Matias Bowling MD Primary Care Provider [phone] Encounter Details Date Type Department Care Team (Late st Contact Info) Description 06/03/2024 Lab Requisition [facility] - Main Lab 299 [place] [address] Matias Bowling MD 38 [place] 204 [place], [address] Essential (primary) hypertension Social History Tobacco [...] LAB CHEMISTRY METHOD 06/04/2024 11:53 AM EDT [facility] Potassium 4.5 3.5 - 5.5 mmol/L LAB CHEMISTRY METHOD 06/04/2024 11:53 AM EDT [facility] Chloride 102 96 - 110 mmol/L LAB CHEMISTRY METHOD 06/04/2024 11:53 AM [facility] CO2 29 21 - 32 mmol/L LAB CHEMISTRY METHOD 06/04/2024 11:53 AM [facility] Anion Gap 8 3 [...] LAB CHEMISTRY METHOD 06/04/2024 11:53 AM EDT [facility] Total Bilirubin 0.2 0.0 - 1.4 mg/dL LAB CHEMISTRY METHOD 06/04/2024 11:53 AM [facility] Blood Venous blood specimen / Unknown Venipuncture / Unknown 06/04/2024 5:45 AM EDT 06/04/2024 11:02 AM EDT us Matias Bowling MD LAB BLOOD ORDERABLES Final Resul t [facility] 299 [place] [address], [place] [phone] * (ABNORMAL) Complete blood count (06/04/2024 5:45 [...] LAB HEMETOLOGY METHOD 06/04/2024 11:21 AM EDT [facility] RDW 14.9 11.0 - 15.0 % LAB HEMETOLOGY METHOD 06/04/2024 11:21 AM EDT [facility] Platelets 309 130 - 400 K/mcL LAB HEMETOLOGY METHOD 06/04/2024 11:21 AM EDT [facility] MPV 10.0 7.0 - 11.0 FL LAB HEMETOLOGY METHOD 06/04/2024 11:21 AM EDT [facility] NRBC 0.0 <1.0 % LAB HEMETOLOGY METHOD 06/04/2024 11:21 AM EDT [facility] NRBC Absolute 0.00 <0.10 K/mcL LAB HEMETOLOGY METHOD 06/04/2024 11:21 AM EDT [facility] Blood Venous blood specimen / Unknown Venipuncture / Unknown 06/04/2024 5:45 AM EDT 06/04/2024 11:02 AM EDT us Matias Bowling MD LAB BLOOD ORDERABLES Final Resul t [facility] 299 [place] [address], documented in this encounter Visit Diagnoses Diagnosis Essential (primary) hypertension Unspecified essential hypertension documented in this encounter Additional Health Concerns Infection Onset Date Last Indicated Resolved Time C. difficile 05/29/2024 05/29/2024 06/22/2024 7:04 PM EDT documented as of this encounter Care Teams Transportation Services Representative Relationship Specialty Start Date End Date Matias Bowling MD 38 [place] [place] 204 [place] [address] PCP - General Family Medicine 04/16/24 documented as of this encounter
--- OUTSIDE RECORDS SUMMARY | 2025-02-10 09:40 | XMS_ITS | Encounter Summary ---
Author Organization [facility] Address [address] [place] [address] Care Team Providers Care Dry Cell Assembly Supervisor Name Role Phone Matias Bowling MD Primary Care Provider Encounter Details Date Type Department Care Team (Late st Contact Info) Description 04/23/2024 Lab Requisition [facility] - Main Lab 299 [place] [address] Matias Bowling MD 38 [facility] 204 [place], [address] Essential (primary) hypertension Social History Tobacco [...] t [facility] 299 [place] [address], * (ABNORMAL) Complete blood count (04/23/2024 5:04 [...] t [facility] 299 [place] [address], documented in this encounter Visit Diagnoses Diagnosis Essential (primary) hypertension Unspecified essential hypertension documented in this encounter Additional Health Concerns Infection Onset Date Last Indicated Resolved Time Gastrointestinal Rule-Out 04/28/2024 04/27/2024 7:06 PM EDT C. difficile 05/29/2024 05/29/2024 06/22/2024 7:04 PM EDT C. difficile Rule-Out 05/30/2024 05/29/20242024 9:47 AM EDT documented as of this encounter Care Teams Dry Cell Assembly Supervisor Relationship Specialty Start Date End Date Matias Bowling MD [address] [place] [address] PCP - General Family Medicine 04/16/24 documented as of this encounter
--- OUTSIDE RECORDS SUMMARY | 2025-02-10 09:40 | XMS_ITS | Clinical Summary ---
Author Organization [address] Address [address] [place] [address] Phone Care Team Providers Care Blower Room Attendant Name Role Phone Matias Bowling MD Primary Care Provider [phone] Social History Tobacco Use Types Packs/Day Years [...] #1 Negative Negative 05/30/2024 9:30 AM EDT [facility] Stool Rectum structure / Unknown Non-blood Collection / Unknown 05/29/2024 1:50 PM EDT 05/30/2024 8:36 AM EDT Matias Bowling MD LAB BODY FLUIDS AND STOOLS ORDER MARGARET Final Result [facility] [address] [place] [address], from Last 3 Months or Most Recently Relevant to Health Maintenance Insurance [facility] MEDICARE Member Subscriber Plan / Payer (Ef fective 2022-Present) Name:Trish Hunter Relation to Subscriber:Self Name:Trish Hunter Payer ID:[id number] Group ID:[id number] Type:Not on file Address: [address] [place] [address] Care Teams Blower Room Attendant Relationship Specialty Start Date End Date Matias Bowling MD [address] [address] PCP - General Family Medicine 04/16/24
--- OUTSIDE RECORDS SUMMARY | 2025-02-10 09:40 | XMS_ITS | Encounter Summary ---
Author Organization [facility] Address [address] [place] [address] Care Team Providers Care Registered Pharmacy Technician Name Role Phone Matias Bowling MD Primary Care Provider [phone] Encounter Details Date Type Department Care Team (Late st Contact Info) Description 05/30/2024 Lab Requisition [facility] - Main Lab 299 [facility] [place] [address] Matias Bowling MD 38 [facility] 204 [place], [address] Diarrhea, unspecified Social History Tobacco Use [...] MICROBIOLOGY METHOD 05/30/2024 11:16 AM EDT [facility] Comment: CRITICAL RESULT POSITIVE FOR TOXIN PRODUCING CLOSTRIDIOIDES DIFFICILE, NO ADDITIONAL TESTING IS NECESSARY. REPEAT SAMPLES SHOULD NOT BE SUBMITTED FOR TEST OF CURE. Stool Rectum structure / Unknown Non-blood Collection / Unknown 05/29/2024 1:50 PM EDT 05/30/2024 9:47 AM EDT Matias Bowling MD LAB MICROBIOLOGY - GENERAL ORDER MARGARET Final Result Performing Organization Address City/[facility]/ZIP Co de Phone Number [facility] [address] [place] [address], [place] [phone] * Occult blood stool, guaiac (05/29/2024 1:50 PM EDT) Occult Blood, Stool #1 Negative Negative 05/30/2024 9:30 AM EDT [facility] Stool Rectum structure / Unknown Non-blood Collection / Unknown 05/29/2024 1:50 PM EDT 05/30/2024 8:36 AM EDT Matias Bowling MD LAB BODY FLUIDS AND STOOLS ORDER MARGARET Final Result Performing Organization Address [facility]/ZIP Co de Phone Number [facility] [address] [place] [address], [place] [phone] * Ova and parasite examination (05/29/2024 1:50 PM EDT) Ova and Parasite No Ova or Parasite seen. 06/03/2024 10:02 AM EDT [facility] Stool Rectum structure / Unknown Non-blood Collection / Unknown 05/29/2024 1:50 PM EDT 05/30/2024 8:36 AM EDT Narrative [facility] - 06/03/2024 10:02 AM EDT Special test request required for Coccidia and Microsporidia. Matias Bowling MD LAB MICROBIOLOGY - GENERAL ORDER MARGARET Final Result Performing Organization Address [facility]/ZIP Co de Phone Number [facility] [address] [place] [address], [place] [phone] * Clostridium difficile toxin (05/29/2024 1:50 PM EDT) C difficile Toxins A+B, EIA 05/30/2024 9:47 AM EDT [facility] Comment:Refer to C. difficil e PCR assay for results. Stool Rectum structure / Unknown Non-blood Collection / Unknown 05/29/2024 1:50 PM EDT 05/30/2024 8:36 AM EDT Matias Bowling MD LAB MICROBIOLOGY - GENERAL ORDER MARGARET Final Result Performing Organization Address [facility] Co de Phone Number [facility] [address] [place] [address], [place] [phone] documented in this encounter Visit Diagnoses Diagnosis Diarrhea, unspecified documented in this encounter Additional Health Concerns Infection Onset Date Last Indicated Resolved Time C. difficile 05/29/2024 05/29/2024 06/22/2024 7:04 PM EDT C. difficile Rule-Out 05/30/2024 05/29/20242024 9:47 AM EDT documented as of this encounter Care Teams Registered Pharmacy Technician Relationship Specialty Start Date End Date Matias Bowling MD [address] [place] [address] [address] [place] [address] PCP - General Family Medicine 04/16/24 documented as of this encounter
--- OUTSIDE RECORDS SUMMARY | 2025-02-10 09:40 | XMS_ITS | Clinical Summary ---
Author Organization [facility] Address [address] [facility] [address] [place] [address] Phone Care Team Providers Care Telemarketing Sales Representative Name Role Phone Ethel Chase Primary Care Provider [phone] Social History Tobacco Use Types Packs/Day Years [...] MEDICARE REPLACEMENT MEDICARE REPLACEMENT [place] [id number] Care Teams Telemarketing Sales Representative Relationship Specialty Start Date End Date Salvatore EthelDO [address] [place] [address] PCP - General Family Medicine 12/19/23 Additional Source Comments The information contained in this document represents components of the legal health record. It is not the complete legal health record.[facility]
== END 2025-02-10 09:30 | disposition home or self-care (01) ==
PROVIDERS: PCP Family Medicine; Visit Provider Internal Medicine Cardiovascular Disease
DX: I42.9 Cardiomyopathy, unspecified (principal); I10 Essential (primary) hypertension
CPT/HCPCS: 93010; 99214

== ENCOUNTER → 2025-02-10 08:58 | Outpatient (BNVA) | payer OTHER, SELFPAY | PROVIDERS: PCP Family Medicine; Visit Provider Internal Medicine | DX: I10 Essential (primary) hypertension (principal); I42.9 Cardiomyopathy, unspecified; E66.01 Morbid (severe) obesity due to excess calories; Z68.42 Body mass index [BMI] 45.0-49.9, adult | CPT/HCPCS: 93005; 99212 ==